=== PATIENT | female | born 1970 | race Caucasian/White ===

== ENCOUNTER 2023-02-01 10:18 | Outpatient (OUT) | payer OTHER, SELFPAY ==
[2023-02-01 11:18] LABS: Anion Gap 14.3; BUN Creatinine Ratio 20.2; Calcium 9.2 mg/dL (8.5-10.1); Carbon Dioxide 26.7 mmol/L (21.0-32.0); Chloride 99 mmol/L (98-107); Estimated GFR (African America >60 (>=60); Estimated GFR (Non-African Ame >60 (>=60); Glucose 98 mg/dL (74-106); Sodium 136 mmol/L (136-145)
== END 2023-02-01 10:19 ==
LOC: LAB 10:21
PROVIDERS: PCP Nurse Practitioner Family; Visit Provider Nurse Practitioner
DX: I50.22 Chronic systolic (congestive) heart failure (principal)
CPT/HCPCS: 36415; 80048

== ENCOUNTER 2023-02-15 10:52 | Outpatient (OUT) | payer OTHER, SELFPAY ==
--- NOTE | 2023-02-15 11:15 | MM_ITS ---
Patient: JAVIER LINK Exam Date: 02/15/2023 : 1970 Gender:F Ordering : NIKKI [facility] Admission #: [id number] Family : Order #: [id number] CLICK HERE TO VIEW EXAM RADIOLOGY REPORT PROCEDURE: MM TOMOSYNTHESIS SCREENING BI COMPARISON: MG MAMM SCREEN 3D RAMONE CAD, 12/10/2020. MG MAMM SCREEN 3D RAMONE CAD, 11/15/2016. INDICATIONS: Screeing Calculator Name NCI Breast Cancer Risk Assessment Tool 5 Year Breast Cancer Risk 2.00% Lifetime Breast Cancer Risk 15.50% Personal Breast Cancer No Personal Ovarian Cancer No Treatments None Family Cancers Sister with breast cancer at age 46; Sister with lung cancer at age 46; Grandfather-paternal with prostate cancer at age ~80. LOCATION: [facility] BREAST COMPOSITION: Almost entirely fatty. FINDINGS: DIAGNOSTIC CATEGORY 2--BENIGN FINDING: RIGHT BREAST: No significant suspicious finding. Scattered benign-appearing calcifications are present. No significant change has occurred. LEFT BREAST: No significant suspicious finding. Scattered benign-appearing calcifications are present. No significant change has occurred. RECOMMENDATIONS: ROUTINE MAMMOGRAM AND CLINICAL EVALUATION IN 12 MONTHS. PLEASE NOTE: A NORMAL MAMMOGRAM DOES NOT EXCLUDE THE POSSIBILITY OF BREAST CANCER. A CLINICALLY SUSPICIOUS PALPABLE LUMP SHOULD BE BIOPSIED. Dictated by: Antonio Shaffer M.D. on 02/16/2023 at 14:37 Approved by: Antonio Shaffer M.D. on 02/16/2023 at 14:40
== END 2023-02-15 10:53 | disposition home or self-care (01) ==
LOC: MAMMO 10:53
PROVIDERS: PCP Nurse Practitioner Family; Visit Provider Nurse Practitioner Family
DX: Z12.31 Encounter for screening mammogram for malignant neoplasm of breast (principal)
CPT/HCPCS: 77063; 77067

== ENCOUNTER 2023-03-13 10:11 | Outpatient (OUT) | payer OTHER, SELFPAY ==
[2023-03-13 11:38] LABS: Anion Gap 12.1; BUN Creatinine Ratio 15.8; Calcium 8.9 mg/dL (8.5-10.1); Carbon Dioxide 26.7 mmol/L (21.0-32.0); Chloride 100 mmol/L (98-107); Estimated GFR (African America >60 (>=60); Estimated GFR (Non-African Ame 58 (>=60); Glucose 109 mg/dL (74-106); Potassium 3.8 mmol/L (3.5-5.1); Sodium 135 mmol/L (136-145)
== END 2023-03-13 10:12 | disposition home or self-care (01) ==
LOC: LAB 10:13
PROVIDERS: PCP Nurse Practitioner Family; Visit Provider Internal Medicine Interventional Cardiology
DX: I11.0 Hypertensive heart disease with heart failure (principal); I50.9 Heart failure, unspecified
CPT/HCPCS: 36415; 80048

== ENCOUNTER 2023-05-08 15:14 | Outpatient (REF) | payer OTHER, SELFPAY ==
[2023-05-08 15:56] LABS: SARS-CoV-2 Ag NEGATIVE (NEGATIVE)
[2023-05-09 15:51] LABS: SARS-CoV-2 NAA NOT DETECTED (NOT DETECTE)
== END 2023-05-08 15:15 | disposition home or self-care (01) ==
LOC: LAB 15:14
PROVIDERS: PCP Nurse Practitioner Family; Visit Provider Family Medicine
DX: J21.9 Acute bronchiolitis, unspecified (principal)
CPT/HCPCS: 87635; 87811; U0003

== ENCOUNTER 2023-05-12 09:53 | Outpatient (OUT) | payer OTHER, SELFPAY ==
[2023-05-12 10:47] LABS: Basophils Absolute Auto 0.1 10^3/uL (0.0-0.1); Basophils Percent Auto 0.5 % (0.2-2.0); Eosinophils Absolute Auto 0.2 10^3/uL (0.0-0.7); Eosinophils Percent Auto 1.9 % (0.9-7.0); Hematocrit 44.1 % (36.0-48.0); Hemoglobin 15.2 g/dL (12.0-16.0); Immature Granulocytes Abs Auto 0.03 10^3/uL (0.00-0.03); Immature Granulocytes Pct Auto 0.3 % (0.0-0.5); Lymphocytes Absolute Auto 2.4 10^3/uL (1.2-3.8); Lymphocytes Percent Auto 22.1 % (20.5-60.0); Mean Corpuscular HGB Conc 34.5 g/dL (29.9-35.2); Mean Corpuscular Hemoglobin 32.8 pg (26.7-34.0); Mean Corpuscular Volume 95.2 fL (81.0-99.0); Monocytes Absolute Auto 0.6 10^3/uL (0.3-0.8); Monocytes Percent Auto 5.4 % (1.7-12.0); Neutrophils Absolute Auto 7.4 10^3/uL (1.4-6.5); Neutrophils Percent Auto 69.8 % (43.0-75.0); Platelet Count 240 10^3/uL (150-450); Red Blood Count 4.63 10^6/uL (4.20-5.40); Red Cell Distribution Width 12.4 % (11.0-15.0); White Blood Count 10.6 10^3/uL (4.0-11.0)
[2023-05-12 11:53] LABS: Estimated Average Glucose 111 mg/dL; Glycohemoglobin A1C 5.5 % (4.5-6.2)
[2023-05-12 12:22] LABS: Alanine Aminotransferase 27 U/L (14-59); Albumin Globulin Ratio 0.8; Albumin Level 3.7 g/dL (3.4-5.0); Alkaline Phosphatase 147 U/L (46-116); Anion Gap 14.5; Aspartate Amino Transferase 28 U/L (15-37); Bilirubin Total 0.5 mg/dL (0.2-1.0); Calcium 9.3 mg/dL (8.5-10.1); Carbon Dioxide 26.1 mmol/L (21.0-32.0); Chloride 99 mmol/L (98-107); Chol HDL Ratio 3.2; Cholesterol 126 mg/dL (<=200); Estimated GFR (African America >60 (>=60); Estimated GFR (Non-African Ame 54 (>=60); Free T3 2.86 pg/mL (2.18-3.98); Globulin 4.6 g/dL; Glucose 99 mg/dL (74-106); HDL Cholesterol 40 mg/dL (40-60); LDL Cholesterol Calculated 64.6 mg/dL; Potassium 4.6 mmol/L (3.5-5.1); Sodium 135 mmol/L (136-145); Thyroid Stimulating Hormone 0.038 uIU/mL (0.358-3.740); Total Protein 8.3 g/dL (6.4-8.2); Triglycerides 107 mg/dL (<=150); VLDL CHOLESTEROL 21.4 mg/dL
== END 2023-05-12 09:54 | disposition home or self-care (01) ==
LOC: LAB 10:05
PROVIDERS: PCP Nurse Practitioner Family; Visit Provider Nurse Practitioner Family
DX: Z00.00 Encounter for general adult medical examination without abnormal findings (principal); E78.5 Hyperlipidemia, unspecified; R73.09 Other abnormal glucose; D64.9 Anemia, unspecified; E55.9 Vitamin D deficiency, unspecified
CPT/HCPCS: 36415; 80053; 80061; 82306; 83036; 83525; 83540; 84436; 84443; 84481; 85025

== ENCOUNTER 2023-09-04 07:51 | Outpatient (OUT) | payer MEDICARE, SELFPAY ==
--- OUTSIDE RECORDS SUMMARY | 2023-09-04 07:59 | XMS_ITS | CCD ---
Author Name Unknown Address [address] [place] [address] Organization [facility] Care Team Providers Care Shell Worker Name Role Phone RAFI BISWAS Attending Unavailable MORIAH MACK Primary Care Unavailable MORIAH MACK Referring Unavailable RAFI BISWAS Admitting Unavailable None, No PCP Unavailable Unavailable Unavailable Unavailable DO Isidra Lagunas Admit Provider DO Isidra Lagunas Attending Provider NON STAFF Primary Care Provider Unavailabl Isidra Kessler Attending Unavailable Isidra Lagunas Admitting Unavailable NON STAFF Primary Care Unavailable ALTON AVALOS Consulting Unavailable VALDEZ, NIKKI Primary Care Unavailable ALTON AVALOS Attending Unavailable ALTON AVALOS Admitting Unavailable MISC, DR PALOMARES Admitting Unavailable MISC, DR PALOMARES Attending Unavailable MISC, DR PALOMARES Consulting Unavailable VALDEZ, NIKKI Primary Care Unavailable MISC, DR PALOMARES Consulting Unavailable VALDEZ, NIKKI Primary Care Unavailable MISC, DR PALOMARES Attending Unavailable MISC, DR PALOMARES Admitting Unavailable ZIIVAN, DR ANGEL Ruiz Consulting Unavailable VALDEZ, NIKKI Primary Care Unavailable ALTON AVALOS Attending Unavailable ALTON AVALOS Admitting Unavailable ALTON AVALOS Consulting Unavailable VALDEZ, NIKKI Consulting Unavailable VALDEZ, NIKKI Admitting Unavailable VALDEZNIKKI Attending Unavailable VALDEZ, NIKKI Primary Care Unavailable SHAIKH Sergo HERRERA Admitting Unavailable SHAIKH Sergo HERRERA Attending Unavailable VALDEZ, NIKKI Primary Care Unavailable HASMUKH HILTON Admitting Unavailable HASMUKH HILTON Attending Unavailable JOSC, DR PALOMARES Primary Care Unavailable MADELAINE ALVA Unavailable HASMUKH HILTON Consulting Unavailable SERENITY, DR SHAFFER Admitting Unavailable MOUKALOIS, DR SHAFFER Attending Unavailable VALDEZ, NIKKI Primary Care Unavailable MOUKARBEL, DR SHAFFER Consulting Unavailable ALTON AVALOS Admitting Unavailable ALTON AVALOS Attending Unavailable VALDEZ, NIKKI Primary Care Unavailable VALDEZ, NIKKI Consulting Unavailable VALDEZ, NIKKI Primary Care Unavailable VALDEZ, NIKKI Attending Unavailable VALDEZ, NIKKI Admitting Unavailable ZIEBER, DR ANGEL Ruiz Consulting Unavailable VALDEZ, NIKKI Primary Care Unavailable MOUKARBEL, DR SHAFFER Attending Unavailable MOUKARBEL, DR SHAFFER Admitting Unavailable MOUKARBEL, DR SHAFFER Consulting Unavailable ANTHONY, YELENA Consulting Unavailable VALDEZ, NIKKI Primary Care Unavailable ANTHONY, YELENA Attending Unavailable ANTHONY, YELENA Admitting Unavailable VALDEZ, NIKKI Primary Care Unavailable FAWWAD, SWIFT H Attending Unavailable FAWWAD, SWIFT H Admitting Unavailable FAWWAD, SWIFT H Admitting Unavailable FAWWAD, SWIFT H Attending Unavailable VALDEZ, NIKKI Primary Care Unavailable FAWWAD, SWIFT H Admitting Unavailable FAWWAD, SWIFT H Attending Unavailable MISBaldemar, DR PALOMARES Primary Care Unavailable ALTON AVALOS Consulting Unavailable VALEDZ, NIKKI Primary Care Unavailable ALTON AVALOS Attending Unavailable ALTON AVALOS Admitting Unavailable BEBO, DR NOLAN Philippe Admitting Unavailabl e BEBO, DR NOLAN Philippe Attending Unavailabl e JOSC, DR PALOMARES Primary Care Unavailable BEBO, DR NOLAN Philippe Consulting Unavailabl e MELODIE ., MEREDITH MEMBRENO Consulting Unavailabl e KIRA ., HASMUKH Attending Unavailable KIRA ., HASMUKH Admitting Unavailable VALDEZ, NIKKI Primary Care Unavailable MARY ROJAS Consulting Unavailable MOUKARBEL, DR SHAFFER Admitting Unavailable MOUKARBEL, DR SHAFFER Attending Unavailable VALDEZ, NIKKI Primary Care Unavailable MOUKARBEL, DR SHAFFER Consulting Unavailable VALDEZ, NIKKI Primary Care Unavailable MOUKARBEL, DR SHAFFER Attending Unavailable MOUKARBEL, DR SHAFFER Admitting Unavailable FAWWAD, SWIFT H Admitting Unavailable FAWWAD, SWIFT H Attending Unavailable VALDEZ, NIKKI Primary Care Unavailable RAFI BISWAS Referring Unavailable MOUKARBELDEENA Referring Unavailable CIRILO RUBALCAVA Attending Unavailable CIRILO RUBALCAVA Attending Unavailable ALTON AVALOS Referring Unavailable CHEL DIXON Attending Unavailable ANTHONY, YELENA Attending Unavailable MOUKARBELDEENA Attending Unavailable ALTON AVALOS Referring Unavailable DEENA SANTA Attending Unavailable RAFI BISWAS Attending Unavailable YELENA CRUZ Attending Unavailable YELENA CRUZ Attending Unavailable Allergies Allergy Classification Reported Allergen(s) Allergy Type Date of Onset Reaction(s) Facility (1 source) AVELOX IN NACL (ISO-OSMOTIC); Translations: [AVELOX IN NACL (ISO-OSMOTIC)] Propensity to adverse reactions (disorder) 1 [facility] Repository (4 sources) moxifloxacin; Translations: [Avelox] Drug Allergy [place] [address] DO Work Phone: (3 sources) moxifloxacin; Translations: [moxifloxacin] Drug Allergy 2 [facility] (1 source) moxifloxacin Drug Allergy 3 [facility] Repository (1 source) Chlorhexidine; Translations: [CHLORHEXIDINE GLUCONATE] Drug Allergy 0 [facility] Repository Medications Current Medications Medication Drug Class(es) Dates Sig (Normalized) Sig (Original) [id number] 200 actuat albuterol 0.09 mg/actuat metered dose inhaler (5 sources) beta2-Adrenergic Agonist Start: 01-10-2022 take 90 ug by inhalation every four to six hours Albuterol Sulfate Active 90 MCG INHALATION EVERY 4-6 HOURS January 10, 2022 1:49pm take 1-2 puff(s) by inhalation every four to six hours as needed Albuterol 90 MCG/ACT AERS INHALE 1 TO 2 PUFFS EVERY 4 TO 6 HOURS NEEDED AND DIRECTED. Quantity: 0 Refills: 0 Ordered: 17-Jan-2022 DO Active aspirin 81 mg delayed release oral tablet (5 sources) Platelet Aggregation Inhibitor, Nonsteroidal Anti-inflammatory Drug Start: 01-14-2022 take 81 mg by mouth once daily Aspirin Active 81 MG PO Daily January 14, 2022 1:02pm atorvastatin 80 mg oral tablet (6 sources) HMG-CoA Reductase Inhibitor Start: 01-14-2022 take 80 mg by mouth once daily in the evening Atorvastatin Active 80 MG PO Every evening January 14, 2022 1:02pm Start: 01-10-2022 End: 01-14-2022 take 10 mg by mouth once daily Atorvastatin Discontinu ed 10 MG PO Daily January 10, 2022 1:49pm January 14, 2022 2:28pm benzonatate 200 mg oral capsule (5 sources) Non-narcotic Antitussive Start: 01-10-2022 take 200 mg by mouth every eight hours Benzonatate Active 200 MG PO Every 8 hours January 10, 2022 1:49pm take 1 capsule by [facility] three times daily as needed Benzonatate 200 MG Oral Capsule TAKE 1 CAPSULE 3 TIMES DAILY NEEDED. Quantity: 0 Refills: 0 Ordered: 17-Jan-2022 DO Active carvedilol 6.25 mg oral tablet (5 sources) alpha-Adrenergic Deedee, beta-Adrenergic Deedee Start: 01-14-2022 take 6.25 mg by mouth twice daily at mealtime Carvedilol Active 6.25 MG PO Twice daily with meals January 14, 2022 1:02pm clopidogrel 75 mg oral tablet (5 sources) P2Y12 Platelet Inhibitor Start: 01-14-2022 take 75 mg by mouth once daily Clopidogrel Active 75 MG PO Daily January 14, 2022 1:02pm DULoxetine 30 mg delayed release oral capsule (5 sources) Serotonin and Norepinephrine Reuptake Inhibitor Start: 01-10-2022 take 30 mg by mouth twice daily Duloxetine Active 30 MG PO Twice daily January 10, 2022 1:49pm levothyroxine sodium 0.137 mg oral tablet (5 sources) l-Thyroxine Start: 01-10-2022 take 1 tablet by mouth once daily Levothyroxine (Synthroid) 137 mcg Tablet Active 137 MCG PO Daily January 10, 2022 6:58pm take 1 capsule by [facility] once daily before breakfast Levothyroxine Sodium 137 MCG Oral Capsul e TAKE 1 CAPSULE BY MOUTH EVERY MORNING BEFORE BREAKFAST ON EMPTY STOMACH Quantity: 0 Refills: 0 Ordered: 17-Jan-2022 DO Active lisinopril 2.5 mg oral tablet (6 sources) Angiotensin Converting Enzyme Inhibitor Start: 01-14-2022 take 2.5 mg by mouth once daily Lisinopril Active 2.5 MG PO Daily January 14, 2022 1:02pm Start: 01-10-2022 End: 01-14-2022 take 10 mg by mouth once daily Lisinopril Discontinued 10 MG PO Daily January 10, 2022 1:49pm January 14, 2022 2:28pm nitroglycerin 0.4 mg sublingual tablet (5 sources) Nitrate Vasodilator Start: 01-14-2022 Nitroglycerin Active 0.4 MG SUBLINGUAL Q5M January 14, 2022 1:02pm warfarin sodium 3 mg oral tablet (6 sources) Vitamin K Antagonist Start: 01-14-2022 take 3 mg by mouth once daily Warfarin Active 3 MG PO Daily January 14, 2022 2:27pm start 01/17 Start: 01-14-2022 Warfarin Activ e 5 MG PO Daily 10 14January 14, 2022 2:26pm take 01/14, 01/15, and 01/16 then decrease to 3mg daily starting 01/17 Warfarin Sodium 3 MG Oral Tablet Take as directed by [facility] Quantity: 0 Refills: 0 Ordered: 18-Jan-2022 DO Active Completed/Discontinued Medications Medication Drug Class(es) Dates Sig (Normalized) Sig (Original) ibuprofen 800 mg oral tablet (1 source) Nonsteroidal Anti-inflammatory Drug Start: 01-10-2022 End: 01-14-2022 Ibuprofen Discontinued MG TABLET January 10, 2022 1:49pm January 14, 2022 2:28pm Problems Active Problems Problem Classification Problem Date Documented Date Episodic/Chronic Acute myocardial infarction (8 sources) Myocardial infarction; Translations: [Acute myocardial infarction of other anterior wall, episode of care unspecified] Onset: 01-13-2022 01-10-2022 Chronic Conduction disorders (10 sources) Presence of automatic (implantable) cardiac defibrillator; Translations: [Presence of cardiac pacemaker] Onset: 05-18-2022 Chronic Congestive heart failure; nonhypertensive (16 sources) Chronic systolic (congestive) heart failure; Translations: [Unspecified systolic (congestive) heart failure] Onset: 03-31-2022 Chronic Coronary atherosclerosis and other heart disease (18 sources) Coronary arteriosclerosis; Translations: [Coronary atherosclerosis of [facility] [place] coronary artery] Onset: 02-02-2022 Chronic Diabetes mellitus without complication (1 source) Type 2 diabetes mellitus without complications; Translations: [TYPE 2 DM WITHOUT COMPLICATIONS] Onset: 06-07-2022 Chronic Disorders of lipid metabolism (6 sources) Hyperlipidemia; Translations: [Hyperlipidemia, unspecified] Onset: 01-10-2022 01-10-2022 Chronic Essential hypertension (4 sources) Essential hypertension; Translations: [Essential (primary) hypertension] Onset: 01-10-2022 01-10-2022 Chronic Hypertension with complications and secondary hypertension (2 sources) Hypertensive heart disease with heart failure; Translations: [Hypertensive heart disease with heart failure] Onset: 11-30-2022 Chronic Joint disorders and dislocations; trauma-related (2 sources) Other articular cartilage disorders, left wrist; Translations: [Other articular cartilage disorders, left wrist] Onset: 05-23-2023 Chronic Osteoarthritis (2 sources) Unilateral primary osteoarthritis of first carpometacarpal joint, right hand; Translations: [Unilateral primary osteoarthritis of first carpometacarpal joint, right hand] Onset: 05-23-2023 Chronic Other aftercare (4 sources) Drug therapy finding; Translations: [Long-term (current) use of other medications] Episodic Other and ill-defined heart disease (4 sources) Mural thrombus of left ventricle; Translations: [Acute myocardial infarction of unspecified site, episode of care unspecified] Chronic Other and ill-defined heart disease (1 source) Left ventricular thrombus; Translations: [Intracardiac thrombosis, not elsewhere classified] 01-11-2022 Chronic Other and ill-defined heart disease (4 sources) Intracardiac thrombosis, not elsewhere classified; Translations: [Acute myocardial infarction of unspecified site, episode of care unspecified] Onset: 01-10-2022 Chronic Other and ill-defined heart disease (5 sources) Thrombosis of atrium, auricular appendage, and ventricle as current complications following acute myocardial infarction; Translations: [I23.6 - Thrombosis of atrium, auricular appendage, and ventricle as current complications following acute myocardial infarction] Onset: 01-10-2022 Chronic Other connective tissue disease (2 sources) Radial styloid tenosynovitis [de Quervain]; Translations: [Radial styloid tenosynovitis (de quervain)] Onset: 05-23-2023 Episodic Other inflammatory condition of skin (2 sources) Psoriasis, unspecified; Translations: [Psoriasis, unspecified] Onset: 03-06-2023 Chronic Other inflammatory condition of skin (2 sources) Arthropathic psoriasis, unspecified; Translations: [Arthropathic psoriasis, unspecified] Onset: 10-03-2022 Chronic Other nervous system disorders (2 sources) Other chronic pain; Translations: [Other chronic pain] Onset: 05-23-2023 Chronic Other non-traumatic joint disorders (2 sources) Pain in right wrist; Translations: [Pain in right wrist] Onset: 05-23-2023 Episodic Other non-traumatic joint disorders (2 sources) Pain in left wrist; Translations: [Pain in left wrist] Onset: 05-23-2023 Episodic Other nutritional; endocrine; and metabolic disorders (4 sources) Obesity; Translations: [Obesity, unspecified] Chronic Other skin disorders (2 sources) Follicular disorder, unspecified; Translations: [Follicular disorder, unspecified] Onset: 07-31-2023 Episodic Bobbi-; endo-; and myocarditis; cardiomyopathy (except that caused by tuberculosis or sexually transmitted disease) (2 sources) Cardiomyopathy in diseases classified elsewhere; Translations: [Cardiomyopathy in diseases classified elsewhere] Onset: 11-30-2022 Chronic Screening and history of mental health and substance abuse codes (4 sources) Ex-smoker; Translations: [Personal history of tobacco use] Episodic Comment on above: quit 1 week ago; Substance-related disorders (1 source) Nicotine dependence, cigarettes, uncomplicated; Translations: [NICOTINE DEPEND CIGARETTES UNCOMP] Onset: 06-07-2022 Chronic Thyroid disorders (4 sources) Hypothyroidism, unspecified; Translations: [HYPOTHYROIDISM UNSPECIFIED] Onset: 07-20-2022 Chronic Unclassified (1 source) I21.19 - ST elevation (STEMI) myocardial infarction involving other coronary artery of inferior wall; Translations: [I21.19 - ST elevation (STEMI) myocardial infarction involving other coronary artery of inferior wall] Onset: 01-10-2022 Unclassified (1 source) CONTACT W/AND (SUSP) EXPOS COVID-19; Translations: [CONTACT W/AND (SUSP) EXPOS COVID-19] Onset: 06-07-2022 Past or Other Problems Problem Classification Problem Date Documented Da te Episodic/Chronic Conditions associated with dizziness or vertigo (4 sources) Dizziness and giddiness; Translations: [DIZZINESS AND GIDDINESS] Onset: 06-03-2022 Episodic Coronary atherosclerosis and other heart disease (7 sources) Patient post percutaneous transluminal coronary angioplasty; Translations: [Percutaneous transluminal coronary angioplasty status] Onset: 02-28-2022 Episodic Immunizations and screening for infectious disease (4 sources) Encounter for screening for respiratory tuberculosis; Translations: [Encounter for screening for other viral diseases] Onset: 03-06-2023 Episodic Nonspecific chest pain (6 sources) Other chest pain; Translations: [OTHER CHEST PAIN] Onset: 06-08-2022 Episodic Other aftercare (1 source) Other penitentiary (current) drug therapy; Translations: [OTH LONGTERM CURRENT DRUG THERAPY] Onset: 06-07-2022 Episodic Other aftercare (4 sources) Encounter for therapeutic drug level monitoring; Translations: [ENC THERAPEUTC DRUG LEVL MONITORING] Onset: 05-15-2022 Episodic Other aftercare (1 source) exterminator helper termite (current) use of anticoagulants; Translations: [REHABILITATION CONSTRUCTION SPECIALIST CURRNT USE ANTICOAGULANTS] Onset: 06-14-2022 Episodic Other screening for suspected conditions (not mental disorders or infectious disease) (1 source) Abnormal results of thyroid function studies; Translations: [ABNORMAL RESULTS THR FUNCTION STDY] Onset: 06-07-2022 Episodic Residual codes; unclassified (2 sources) Other problems related to lifestyle; Translations: [Other problems related to lifestyle] Onset: 03-06-2023 Episodic Spondylosis; intervertebral disc disorders; other back problems (3 sources) Dorsalgia, unspecified; Translations: [DORSALGIA UNSPECIFIED] Onset: 01-10-2022 Episodic Urinary tract infections (1 source) Urinary tract infection, site not specified; Translations: [UTI SITE NOT SPECIFIED] Onset: 06-07-2022 Episodic Results Test Name Value Interpretation Reference Range Facility Follow-Upon 07-31-2023 Follow-Up [id number] Javier Rosa 1970 Date Provider Department Center 07/31/2023 Bhavna-CIRILO RUBALCAVA [facility] [place] Jose Family History Problem Relation Age of Onset Atrial fibrillation Mother Other Mother Heart attack Father Other Father Other Father Family Status - Relation Status Age at Mother Father Level of Service:26427 SC OFFICE/OUTPATIENT ESTABLISHED MOD MDM 30-39 MIN Reason for Visit and Comments: Follow-up [097706] - Discuss medication switch Normal [facility] Office Visiton 06-28-2023 Follow-up visit [id number] Javier Rosa 1970 F Date Provider Department Center 06/28/2023 DEENA GARCIA HETAL Fine Family History Problem Relation Age of Onset Atrial fibrillation Mother Other Mother Heart attack Father Other Father Other Father Family Status - Relation Status Age at Mother Father Level of Service:05108 SC OFFICE/OUTPATIENT ESTABLISHED LOW MDM 20-29 MIN Reason for Visit and Comments: Follow-up [051598] - BP running higher. Normal [facility] Office Visiton 05-23-2023 Follow-up visit [id number] Javier Rosa 1970 F Date Provider Department Center 05/23/2023 RAFI HONEYCUTT ORTHO MPORTHO Family History Problem Relation Age of Onset Atrial fibrillation Mother Other Mother Heart attack Father Other Father Other Father Family Status - Relation Status Age at Mother Father Level of Service:40908 SC OFFICE/OUTPATIENT ESTABLISHED LOW MDM 20-29 MIN (GC,25) Reason for Visit and Comments: Pain [136] - Radiates up thumb up arm Pain [136] - Radiates up thumb up to arm. [facility] HEPATITIS B SURFACE ANTIGENo n 03-06-2023 HEPATITIS B VIRUS SURFACE AG PRESENCE IN SERUM Non-Reactive Normal Nonreactive [facility] Comment on above: Performed By: #### L [id number] ####[facility] (BEAKER)[address] [place] [address] HEPATITIS C ANTIBODYon 03-06 HEPATITIS C VIRUS AB PRESENCE IN SERUM Non-Reactive Normal Nonreactive [facility] Comment on above: Performed By: #### L [id number] ####[facility] ([facility]ER)[address] [place] [address] Office Visiton 03-06-2023 Follow-up visit [id number] Javier Rosa 1970 F Date Provider Department Center 03/06/2023 CIIRLO CARMEN [facility] Family History Problem Relation Age of Onset Atrial fibrillation Mother Other Mother Heart attack Father Other Father Other Father Family Status - Relation Status Age at Mother Father Level of Service:83677 SC OFFICE/OUTPATIENT NEW MODERATE MDM 45-59 MINUTES Reason for Visit and Comments: Psoriasis [[id number]] - Patient has had psoriasis since she was about 11 years old, it has been two years since she was on anything for it. Last med used was Otezla, prior to that Maheshtz Normal [facility] QUANTIFERON TB GOLDon 2022 MITOGEN MINUS NIL 2.28 IU/mL Normal [facility] Comment on above: Performed By: #### L [id number] ####[facility] ([facility])[address] [place] [address] NIL 0.03 IU/mL Normal [facility] Comment on above: Performed By: #### L [id number] ####[facility] ([facility])[address] [place] [address] QUANTIFERON - TB GOLD TEST Negative Normal Negative [facility] Comment on above: Result Comment: Ugo tiferon TB Gold Interpretation (IU/mL): NEGATIVE: M. tuberculosis infection not likely. Nil: <=8.0 TB1 Antigen minus Nil ([id number]): <0.35 OR >=0.35; and <25% of Nil value. TB2 Antigen minus Nil (XH8ED-CEM): <0.35 OR >=0.35; and <25% of Nil value. Performed By: #### L [id number] ####[facility] ([facility])[address] [place] [address] TB1 AG 0.02 IU/mL [facility] Comment on above: Performed By: #### L [id number] ####[facility] ([facility])[address] [place] [address] TB1 AG MINUS NIL -0.01 IU/mL Normal [facility] Comment on above: Performed By: #### L [id number] ####[facility] ([facility])[address] [place] [address] TB2 AG 0.03 IU/mL Normal [facility] Comment on above: Performed By: #### L [id number] ####[facility] ([facility])[address] [place] [address] TB2 AG MINUS NIL 0.00 IU/mL Normal [facility] Comment on above: Performed By: #### L [id number] ####[facility] ([facility]ER)[address] [place] [address] Office Visiton 02-10-2023 Follow-up visit [id number] Javier Rosa 1970 F Date Provider Department Center 02/10/2023 JaleelYELENA OROZCO HETAL [facility] Family History Problem Relation Age of Onset Atrial fibrillation Mother Other Mother Heart attack Father Other Father Other Father Family Status - Relation Status Age at Mother Father Level of Service:47569 SC OFFICE/OUTPATIENT ESTABLISHED LOW MDM 20-29 MIN Normal [facility] Office Visiton 01-13-2023 Follow-up visit [id number] Javier Rosa 1970 F Date Provider Department Center 01/13/2023 [facility] Family History Problem Relation Age of Onset Atrial fibrillation Mother Other Mother Heart attack Father Other Father Other Father Family Status - Relation Status Age at Mother Father Level of Service:02546 SC OFFICE/OUTPATIENT ESTABLISHED MOD MDM 30-39 MIN Normal [facility] PROF CHEM 8 (BAS METB)on Anion gap [Moles/Vol] 14.8 mmol/L Normal [facility] Comment on above: Performed By: #### C BC #### [facility] [address] [place] [address] [address] Vangie Devine Calcium [Mass/Vol] 8.9 mg/dL Normal 8.5-10.1 [facility] Comment on above: Performed By: #### C BC #### [facility] [address] [place] [address] [address] Vangie Devine Chloride [Moles/Vol] 101 mmol/L Normal 98-107 [facility] Comment on above: Performed By: #### C BC #### [facility] [address] [place] [address] [address] Vangie Devine CO2 [Moles/Vol] 25.9 mmol/L Normal 21.0-32.0 [facility] Comment on above: Performed By: #### C BC #### [facility] [address] [place] [address] [address] Vangie Devine Creatinine [Mass/Vol] 0.91 mg/dL Normal 0.55-1.02 [facility] Comment on above: Performed By: #### C BC #### [facility] [address] [place] [address] Dr. Vangie Devine EGFR-AF HONDURAN >60 Normal >=60 [facility] Comment on above: Performed By: #### C BC #### [facility] [address] [place] [address] [address] Vangie Devine EGFR-NON AF HONDURAN >60 Normal >=60 [facility] Comment on above: Performed By: #### C BC #### [facility] [address] [place] [address] [address] Vangie Devine Glucose [Mass/Vol] 93 mg/dL Normal 74-106 [facility] Comment on above: Performed By: #### C BC #### [facility] [address] [place] [address] Dr. Vangie Devine Potassium [Moles/Vol] 4.7 mmol/L Normal 3.5-5.1 [facility] Comment on above: Performed By: #### C BC #### [facility] [address] [place] [address] [address] Vangie Devine Sodium [Moles/Vol] 137 mmol/L Normal 136-145 [facility] Comment on above: Performed By: #### C BC #### [facility] [address] [place] [address] Dr. Vangie Devine Urea nitrogen [Mass/Vol] 9.0 mg/dL Normal 7.0-18.0 [facility] Comment on above: Performed By: #### C BC #### [facility] [address] [place] [address] Dr. Vangie Devine Urea nitrogen/Creatinine [Mass ratio] 9.9 mg/mg Normal [facility] Comment on above: Performed By: #### C BC #### [facility] [address] [place] [address] Dr. Vangie Devine Office Visiton 12-12-2022 Follow-up visit [id number] Javier Rosa 1970 F Date Provider Department Center 12/12/2022 [id number] PEREZ CARD [facility] Family History Problem Relation Age of Onset Atrial fibrillation Mother Other Mother Heart attack Father Other Father Other Father Family Status - Relation Status Age at Mother Father Level of Service:98162 [place] OFFICE/OUTPATIENT ESTABLISHED MOD MDM 30-39 MIN Reason for Visit and Comments: Follow-up [712723] - 2 week follow up Normal [facility] PROF CHEM 8 (BAS METB)on Anion gap [Moles/Vol] 15.6 mmol/L Normal [facility] Comment on above: Performed By: #### P TT, PT #### [facility] [address] [place] [address] Dr. Vangie Devine Calcium [Mass/Vol] 8.9 mg/dL Normal 8.5-10.1 [facility] Comment on above: Performed By: #### P TT, PT #### [facility] [address] [address] [address] Vangie Devine Chloride [Moles/Vol] 101 mmol/L Normal 98-107 [facility] Comment on above: Performed By: #### P TT, PT #### [facility] [address] [address] [address] Vangie Devine CO2 [Moles/Vol] 24.7 mmol/L Normal 21.0-32.0 [facility] Comment on above: Performed By: #### P TT, PT #### [facility] [address] [address] [address] Vangie Devine Creatinine [Mass/Vol] 0.95 mg/dL Normal 0.55-1.02 [facility] Comment on above: Performed By: #### P TT, PT #### [facility] [address] [address] [address] Vangie Devine EGFR-AF HONDURAN >60 Normal >=60 [facility] Comment on above: Performed By: #### P TT, PT #### [facility] [address] [address] [address] Vangie Devine EGFR-NON AF HONDURAN >60 Normal >=60 [facility] Comment on above: Performed By: #### P TT, PT #### [facility] [address] [address] [address] Vangie Devine Glucose [Mass/Vol] 101 mg/dL Normal 74-106 [facility] Comment on above: Performed By: #### P TT, PT #### [facility] [address] [address] [address] Vangie Devine Potassium [Moles/Vol] 4.3 mmol/L Normal 3.5-5.1 [facility] Comment on above: Performed By: #### P TT, PT #### [facility] [address] [address] [address] Vangie Devine Sodium [Moles/Vol] 137 mmol/L Normal 136-145 [facility] Comment on above: Performed By: #### P TT, PT #### [facility] [address] [address] [address] Vangie Devine Urea nitrogen [Mass/Vol] 15.0 mg/dL Normal 7.0-18.0 [facility] Comment on above: Performed By: #### P TT, PT #### [facility] [address] [address] [address] Vangie Devine Urea nitrogen/Creatinine [Mass ratio] 15.8 mg/mg Normal [facility] Comment on above: Performed By: #### P TT, PT #### [facility] [address] [address] [address] Vangie Devine 37on 11-30-2022 37 Stop lisinopril, after 2 days then start entresto 1 tablet twice daily. Will need repeat labs/blood draw in 1 week for check of kidney function and electrolytes Monitor b/p, call office for any concerns Normal [facility] Office Visiton 11-30-2022 Follow-up visit [id number] Javier Rosa 1970 F Date Provider Department Center 11/30/2022 YELENA REYES [facility] Family History Problem Relation Age of Onset Atrial fibrillation Mother Other Mother Heart attack Father Other Father Other Father Family Status - Relation Status Age at Mother Father Level of Service:88553 [place] OFFICE/OUTPATIENT ESTABLISHED MOD MDM 30-39 MIN Reason for Visit and Comments: Follow-up [180572] - 2 month - overall feeling pretty good. Fatigue [46] - Gets tired easily. This is an ongoing issue. Dizziness [460490] - Occasionally - starts to drink more water and that seems to help. Edema [[id number]] - Ongoing issue - has a little bit of swelling. Shortness of Breath [899703] - With exertion, and will start coughing when she lays flat and then gets short of breath at that time. [facility] 36on 11-02-2022 36 Patient reported to Ircky in cardiac rehab that she's gained 3# the past couple days and is more SOB. She did have her stress test a couple days ago. Once I have results I will put in your bucket. She is scheduled to see [facility] next month. Any recommendations? Thanks. [facility] NM STRESS/REST MULTIon 10-31 NM STRESS/REST MULTI Patient: JAVIER RSOA Exam Date: 10/31/2022 : 1970 Gender:F Ordering : DR DEENA SANTA M.D. Admission #: [id number] Family : Order #: [id number] CLICK HERE TO VIEW EXAM RADIOLOGY REPORT PROCEDURE: RADIONUCLIDE IMAGING STRESS/REST MULTI COMPARISON: None. INDICATIONS: Chest pain TECHNIQUE: Exam Description: Stress/Rest two day protocol gated SPECT Rest Imagin.1 mCi Tc-99m Cardiolite IV on 10/31/2022 Stress Imaging 32.5 mCi Tc-99m Cardiolite IV on 10/31/2022 Exercise Protocol: Vinh Heart Rate (bpm): Rest: 68 Max: 144 PMHR: 85 Blood Pressure: Rest: 136/86 Max: 182/86 Exercise Time: Minutes: 5 Seconds: 30 Stage Reached: Stage: 2 Mets 7.0 Symptoms: Rest and peak stress ECG findings were pending and the exercise portion of the study was pending per attending physician Dr. Avalos . For more details please see separate cardiac stress test report. FINDINGS: QUALITY OF STUDY: Excellent. PERFUSION DEFECT: Absent radiotracer uptake in majority of heart, with only relatively normal uptake seen within the base of the heart and the mid inferior wall. LOCATION: SIZE: Large (5 or more segments). SEVERITY: Severe. TYPE: Persistent. WALL MOTION: Dyskinesis: LV SIZE: Enlarged; EDV 253 mL. TID / TCD: Yes; 1.2 LVEF: Abnormal. Calculated EF 29%. SUMMARY: Myocardial perfusion imaging study has ABNORMAL findings. CONCLUSION: 1. No acute findings. 2. Complete loss of perfusion involving the mid and distal heart, with radiotracer uptake seen only within the base and mid inferior wall. 3. Markedly enlarged left ventricle, 2053 mL. 4. Markedly low ejection fraction, 29%. 5. Marked dyskinesia of the midbody and apex. 6. No comparison studies, but patient describes all of the above findings as known. Dictated by: Angel Christopher M.D. on 10/31/2022 at 14:39 Approved by: Angel Christopher M.D. on 10/31/2022 at 14:45 Normal [facility] Office Visiton 10-03-2022 Follow-up visit [id number] Javier Rosa 1970 F Date Provider Department Center 10/03/2022 DEENA GARCIA [facility] Family History Problem Relation Age of Onset Atrial fibrillation Mother Other Mother Heart attack Father Other Father Other Father Family Status - Relation Status Age at Mother Father Level of Service:05622 [place] OFFICE/OUTPATIENT ESTABLISHED MOD MDM 30-39 MIN Reason for Visit and Comments: Coronary Artery Disease [187] Congestive Heart Failure [127] Normal [facility] FREE THYROXINE INDEX T7on FTI 4.83 Critically high 1.30-4.50 [facility] Comment on above: Performed By: #### C BC #### [facility] [address] [address] [address] Vangie Devine T3U 35.0 % Normal 30.0-39.0 [facility] Comment on above: Performed By: #### C BC #### [facility] [address] [address] [address] Vangie Devine T4 [Mass/Vol] 13.80 ug/dL Normal 4.80-13.90 [facility] Comment on above: Performed By: #### C BC #### [facility] [address] [place] [address] Dr. Vangie Devine TSHon 07-20-2022 TSH 0.051 uIU/mL Critically low 0.358-3.740 [facility] Comment on above: Performed By: #### C BC #### [facility] [address] [place] [address] Dr. Vangie Devine ACETONE SERUMon 06-03-2022 ACETONE Negative Normal NEGATIVE [facility] Comment on above: Performed By: #### C JOBY #### [facility] [address] [place] [address] Dr. Vangie Devine CBC AUTO DIFFon 06-03-2022 BASO # 0.1 103/ul Normal 0.0-0.1 [facility] Comment on above: Performed By: #### C JOBY #### [facility] [address] [place] [address] Dr. Vangie Devine Basophils/100 WBC (Bld) 0.6 % Normal 0.2-2.0 [facility] Comment on above: Performed By: #### C JOBY #### [facility] [address] [place] [address] Dr. Vangie Devine EO # 0.3 103/ul Normal 0.0-0.7 [facility] Comment on above: Performed By: #### C JOBY #### [facility] [address] [place] [address] Dr. Vangie Devine Eosinophils/100 WBC (Bld) 1.4 % Normal 0.9-7.0 [facility] Comment on above: Performed By: #### C JOBY #### [facility] [address] [place] [address] Dr. Vangie Devine Erythrocyte distribution width (RBC) [Ratio] 13.2 % Normal 11.0-15.0 [facility] Comment on above: Performed By: #### C JOBY #### [facility] [address] [place] [address] Dr. Vangie Devine Hematocrit (Bld) [Volume fraction] 44.8 % Normal 36.0-48.0 [facility] Comment on above: Performed By: #### C JOBY #### [facility] [address] [address] [address] Vangie Devine Hemoglobin (Bld) [Mass/Vol] 15.0 g/dL Normal 12.0-16.0 [facility] Comment on above: Performed By: #### C JOBY #### [facility] [address] [place] [address] Dr. Vangie Devine IG # 0.06 10e3/ul Critically high 0.00-0.03 [facility] Comment on above: Performed By: #### C JOBY #### [facility] [address] [place] [address] Dr. Vangie Devine IG % 0.3 % Normal 0.0-0.5 [facility] Comment on above: Performed By: #### C JOBY #### [facility] [address] [place] [address] Dr. Vangie Devine LYMPH # 3.5 103/ul Normal 1.2-3.8 [facility] Comment on above: Performed By: #### C JOBY #### [facility] [address] [place] [address] Dr. Vangie Devine Lymphocytes/100 WBC (Bld) 19.8 % Critically low 20.5-60.0 [facility] Comment on above: Performed By: #### C JOBY #### [facility] [address] [place] [address] Dr. Vangie Devine MANUAL DIFF REQ NO Normal [facility] Comment on above: Performed By: #### C JOBY #### [facility] [address] [place] [address] Dr. Vangie Devine MCH (RBC) [Entitic mass] 31.1 pg Normal 26.7-34.0 [facility] Comment on above: Performed By: #### C JOBY #### [facility] [address] [place] [address] Dr. Vangie Devine MCHC (RBC) [Mass/Vol] 33.5 g/dL Normal 29.9-35.2 [facility] Comment on above: Performed By: #### C JOBY #### [facility] [address] [place] [address] Dr. Vangie Devine MCV (RBC) [Entitic vol] 92.8 fL Normal 81.0-99.0 [facility] Comment on above: Performed By: #### C JOBY #### [facility] [address] [place] [address] Dr. Vangie Devine MONO # 1.1 103/ul Critically high 0.3-0.8 [facility] Comment on above: Performed By: #### C JOBY #### [facility] [address] [place] [address] Dr. Vangie Devine Monocytes/100 WBC (Bld) 6.0 % Normal 1.7-12.0 [facility] Comment on above: Performed By: #### C JOBY #### [facility] [address] [place] [address] Dr. Vangie Devine NEUT # 12.6 103/ul Critically high 1.4-6.5 [facility] Comment on above: Performed By: #### C JOBY #### [facility] [address] [place] [address] Dr. Vangie Devine Neutrophils/100 WBC (Bld) 71.9 % Normal 43.0-75.0 [facility] Comment on above: Performed By: #### Baldemar HEMPHILL #### [facility] [address] [place] [address] Dr. Vangie Devine Platelet mean volume (Bld) [Entitic vol] 11.0 fL Normal 9.5-13.5 [facility] Comment on above: Performed By: #### C JOBY #### [facility] [address] [place] [address] Dr. Vagnie Devine PLT 179 103/ul Normal 150-450 [facility] Comment on above: Performed By: #### C JOBY #### [facility] [address] [place] [address] Dr. Vangie Devine RBC 4.83 106/ul Normal 4.20-5.40 [facility] Comment on above: Performed By: #### C JOBY #### [facility] [address] [place], [place] [address] Dr. Vangie Devine WBC 17.5 103/ul Critically high 4.0-11.0 [facility] Comment on above: Performed By: #### C JOBY #### [facility] [address] [place], [place] [address] HEAD WO CONon 06-03-2022 CT HEAD WO CON EXAMINATION: CT HEAD WO CON HISTORY: BENIGN PAROXYSMAL VERTIGO, vomiting and diarrhea. COMPARISON: None. TECHNIQUE: CT examination of the head without IV contrast. Sagittal and coronal reconstructions were obtained. Dose reduction techniques were achieved by using automated exposure control and/or adjustment of mA and/or kV according to patient size and/or use of iterative reconstruction technique. FINDINGS: The ventricles are not enlarged, the lateral ventricles are symmetric and the third ventricles in the midline. The sylvian fissures and cortical sulci are unremarkable. There is no evidence of an intracranial hemorrhage, mass lesion or apparent acute infarct. The cerebellum and visualized brainstem are intact. The visualized paranasal sinuses are clear. The middle ears are aerated. The paranasal sinuses are clear. There is no apparent skull fracture. IMPRESSION: There is no evidence of an intracranial hemorrhage, mass lesion or apparent acute infarct. The visualized paranasal sinuses are clear. There is no evidence of a skull fracture. Comparison with a previous study may be helpful in determining the chronicity of these findings. Electronically authenticated by: MARY ROJAS Date: 2022-06-03 19:15 Normal [facility] CULTURE URINEon 06-03-2022 CULTURE URINE Culture Observations: NO GROWTH. Normal [facility] Comment on above: Performed By: #### P TT, PT #### [facility] [address] [place], [place] [address] Dr. Vangie Devine [facility] SARS-CoV-2 (COVID-19) RNA SAMIR+probe Ql (Unsp spec) Not detected Normal NOT DETECTED [facility] Comment on above: Result Comment: When diagnostic testing is negative, the possibility of a false negative should be considered in the context of a patient's recent exposures and the presence of clinical signs and symptoms consistent with SARS-CoV-2. This test is not yet approved or cleared by the [place] FDA. When there are no FDA-approved or cleared tests available, and other criteria are met, FDA can make tests available under an emergency access mechanism called an Emergency Use Authorization (EUA). The EUA for this test is supported by the [place] of Health and Human Service's declaration that circumstances exist to justify the emergency use of in vitro diagnostics for the detection and/or diagnosis of the virus that causes COVID-19. This EUA will remain in effect for the duration of the COVID-19 declaration justifying emergency of IVDs, unless it is terminated or revoked by the FDA (after which the test may no longer be used). Performed By: #### C BCMAN #### [facility] [address] [place] [address] Dr. Vangie Devine ER URINE PROFILEon 2 Bilirubin Ql (U) Negative Normal NEGATIVE [facility] Comment on above: Performed By: #### C BC #### [facility] [address] [place] [address] Dr. Vangie Devine Clarity (U) CLEAR Normal CLEAR [facility] Comment on above: Performed By: #### C BC #### [facility] [address] [place] [address] Dr. Vangie Devine Color (U) LT. YELLOW Normal YELLOW [facility] Comment on above: Performed By: #### C BC #### [facility] [address] [place] [address] Dr. Vangie Devine ERUD A micrscopic examination will be performed if indicated. Normal [facility] Comment on above: Performed By: #### C BC #### [facility] [address] [place] [address] Dr. Vangie Devine Glucose Ql (U) 250 mg/dl Abnormal NEGATIVE [facility] Comment on above: Performed By: #### C BC #### [facility] [address] [place] [address] Dr. Vangie Devine Hemoglobin Ql (U) Negative Normal NEGATIVE [facility] Comment on above: Performed By: #### C BC #### [facility] [address] [place] [address] Dr. Vangie Devine Ketones Ql (U) Negative Normal NEGATIVE [facility] Comment on above: Performed By: #### C BC #### [facility] [address] [place] [address] Dr. Vangie Devine LEUKOCYTES Negative Normal NEGATIVE [facility] Comment on above: Performed By: #### C BC #### [facility] [address] [place] [address] Dr. Vangie Devine Nitrite Ql (U) Positive Abnormal NEGATIVE [facility] Comment on above: Performed By: #### C BC #### [facility] [address] [place] [address] Dr. Vangie Devine pH (U) 6.0 [pH] Normal 5-9 [facility] Comment on above: Performed By: #### C BC #### [facility] [address] [place] [address] Dr. Vangie Devine SPEC GRAVITY <=1.005 Abnormal 1.005-<=1.025 [facility] Comment on above: Performed By: #### C BC #### [facility] [address] [place] [address] Dr. Vangie Devine UA PROTEIN Negative Normal NEGATIVE/ TRACE [facility] Comment on above: Performed By: #### C BC #### [facility] [address] [place] [address] Dr. Vangie Devine UR MICRO IND INDICATED Normal [facility] Comment on above: Performed By: #### C BC #### [facility] [address] [place] [address] Dr. Vangie Devine Urobilinogen Qn (U) 0.2 {Jewel'U}/dL Normal 0.2 - 1. 0 [facility] Comment on above: Performed By: #### C BC #### [facility] [address] [place] [address] Dr. Vangie Devine FREE T3on 06-03-2022 FREE T3 2.42 pg/mlL Normal 2.18-3.98 [facility] Comment on above: Performed By: #### F T3 #### [facility] [address] [address] [address] Vangie Devine FREE T4on 06-03-2022 Free T4 [Mass/Vol] 1.93 ng/dL Critically high 0.76-1.46 [facility] Comment on above: Performed By: #### C JOBY #### [facility] [address] [address] [address] Vangie Devine LACTATE/LACTIC ACIDon 2021 Lactate [Moles/Vol] 1.2 mmol/L Normal 0.4-1.9 [facility] Comment on above: Performed By: #### C JOBY #### [facility] [address] [address] [address] Vangie Devine PROF 14(COMP METB)on 022 Albumin [Mass/Vol] 3.9 g/dL Normal 3.4-5.0 [facility] Comment on above: Performed By: #### H STROPN, TSH, CMP #### [facility] [address] [place] [address] Dr. Vangie Devine Albumin/Globulin [Mass ratio] 0.9 {ratio} Normal [facility] Comment on above: Performed By: #### H STROPN, TSH, CMP #### [facility] [address] [place] [address] Dr. Vangie Devine ALP [Catalytic activity/Vol] 138 U/L Critically high 46-116 [facility] Comment on above: Performed By: #### H STROPN, TSH, CMP #### [facility] [address] [place] [address] Dr. Vangie Devine ALT [Catalytic activity/Vol] 24 U/L Normal 14-59 [facility] Comment on above: Performed By: #### H STROPN, TSH, CMP #### [facility] [address] [place] [address] Dr. Vangie Devine Anion gap [Moles/Vol] 11.4 mmol/L Normal [facility] Comment on above: Performed By: #### H STROPN, TSH, CMP #### [facility] [address] [place] [address] Dr. Vangie Devine AST [Catalytic activity/Vol] 23 U/L Normal 15-37 [facility] Comment on above: Performed By: #### H STROPN, TSH, CMP #### [facility] [address] [address] [address] Vangie Devine Bilirubin [Mass/Vol] 0.5 mg/dL Normal 0.2-1.0 [facility] Comment on above: Performed By: #### H STROPN, TSH, CMP #### [facility] [address] [address] [address] Vangie Devine Calcium [Mass/Vol] 9.5 mg/dL Normal 8.5-10.1 [facility] Comment on above: Performed By: #### H STROPN, TSH, CMP #### [facility] [address] [address] [address] Vangie Devine Chloride [Moles/Vol] 98 mmol/L Normal 98-107 [facility] Comment on above: Performed By: #### H STROPN, TSH, CMP #### [facility] [address] [address] [address] Vangie Devine CO2 [Moles/Vol] 25.3 mmol/L Normal 21.0-32.0 [facility] Comment on above: Performed By: #### H STROPN, TSH, CMP #### [facility] [address] [address] [address] Vangie Devine Creatinine [Mass/Vol] 0.90 mg/dL Normal 0.55-1.02 [facility] Comment on above: Performed By: #### H STROPN, TSH, CMP #### [facility] [address] [address] [address] Vangie Devine EGFR-AF HONDURAN >60 Normal >=60 [facility] Comment on above: Performed By: #### H STROPN, TSH, CMP #### [facility] [address] [address] [address] Vangie Devine EGFR-NON AF HONDURAN >60 Normal >=60 [facility] Comment on above: Performed By: #### H STROPN, TSH, CMP #### [facility] [address] [address] [address] Vangie Devine Globulin (S) [Mass/Vol] 4.2 g/dL Normal [facility] Comment on above: Performed By: #### H STROPN, TSH, CMP #### [facility] [address] [address] [address] Vangie Devine Glucose [Mass/Vol] 93 mg/dL Normal 74-106 [facility] Comment on above: Performed By: #### H STROPN, TSH, CMP #### [facility] [address] [address] [address] Vangie Devine Potassium [Moles/Vol] 3.7 mmol/L Normal 3.5-5.1 [facility] Comment on above: Performed By: #### H STROPN, TSH, CMP #### [facility] [address] [place] [address] Dr. Vangie Devine Protein [Mass/Vol] 8.1 g/dL Normal 6.4-8.2 [facility] Comment on above: Performed By: #### H STROPN, TSH, CMP #### [facility] [address] [address] [address] Vangie Devine Sodium [Moles/Vol] 131 mmol/L Critically low 136-145 [facility] Comment on above: Performed By: #### H STROPN, TSH, CMP #### [facility] [address] [address] [address] Vangie Devine Urea nitrogen [Mass/Vol] 14.0 mg/dL Normal 7.0-18.0 [facility] Comment on above: Performed By: #### H STROPN, TSH, CMP #### [facility] [address] [address] [address] Vangie Devine Urea nitrogen/Creatinine [Mass ratio] 15.6 mg/mg Normal [facility] Comment on above: Performed By: #### H STROPN, TSH, CMP #### [facility] [address] [address] [address] Vangie Devine PROTIMEon 06-03-2022 INR Coag (PPP) [Relative time] 1.06 {INR} Normal [facility] Comment on above: Performed By: #### C JANNETTEHERIBERTO #### [facility] [address] [place] [address] Dr. Vangie Devine INR GUIDELINES SEE BELOW Normal [facility] Comment on above: Result Comment: MARY ANN RED INR: 2.0 - 3.0 CONDITIONS NOT LISTED BELOW 2.5 - 3.5 FOR PROSTHETIC HEART VALVE REPLACEMENT 2.5 - 3.5 RECURRENT THROMBOSIS Performed By: #### C JOBY #### [facility] [address] [place] [address] Dr. Vangie Devine PT Coag (PPP) [Time] 11.4 s Normal 9.0-11.6 [facility] Comment on above: Performed By: #### C JOBY #### [facility] [address] [place] [address] Dr. Vangie Devine PTTon 06-03-2022 aPTT Coag (Bld) [Time] 31.3 s Normal 22.3-36.2 [facility] Comment on above: Performed By: #### C JOBY #### [facility] [address] [place] [address] Dr. Vangie Devine TROPONIN, HIGH SENSITIVITYon 06-03-2022 HSTROP 26.3 pg/mL Normal 4.0-51.3 [facility] [facility] Comment on above: Result Comment: CUT- OFF POINTS HAVE BEEN ESTABLISHED BASED ON THE FOURTH UNIVERSAL DEFINITIONS OF MYOCARDIAL INFARCTION. THE UPPER REFERENCE LIMIT (URL) OF TROPONIN, DEFINED THE 99TH PERCENTILE OF cTnI DISTRIBUTION IN A REFERENCE POPULATION, HAS BEEN CONFIRMED THE DECISION THRESHOLD FOR MS DIAGNOSIS. Performed By: #### P TT, PT #### [facility] [address] [place] [address] Dr. Vangie Devine TSHon 06-03-2022 TSH 0.150 uIU/mL Critically low 0.358-3.740 [facility] Comment on above: Performed By: #### P TT, PT #### [facility] [address] [place] [address] Dr. Vangie Devine URINE MICROSCOPIC ONLYon BACTERIA TRACE Abnormal NONE SEEN [facility] Comment on above: Performed By: #### C BC #### [facility] [address] [place] [address] Dr. Vangie Devine Bacteria identified Cx Nom (U) INDICATED Normal [facility] Comment on above: Result Comment: dory cated due to positive nitrite Performed By: #### C BC #### [facility] [address] [place] [address] Dr. Vangie Devine CAST NONE SEEN Normal NONE SEEN [facility] Comment on above: Performed By: #### C BC #### [facility] [address] [place] [address] Dr. Vangie Devine Crystals LM Nom (Urine sed) NONE SEEN Normal NONE SEEN [facility] Comment on above: Performed By: #### C BC #### [facility] [address] [place] [address] Dr. Vangie Devine Epithelial cells LM Ql (Urine sed) RARE Normal NONE SEEN /RARE [facility] Comment on above: Performed By: #### C BC #### [facility] [address] [place] [address] Dr. Vangie Devine MUCOUS NONE SEEN Normal NONE SEEN [facility] Comment on above: Performed By: #### C BC #### [facility] [address] [place] [address] Dr. Vangie Devine RBC 0-2 Normal 0-2 [facility] Comment on above: Performed By: #### C BC #### [facility] [address] [place] [address] Dr. Vangie Devine WBC 0-2 Abnormal NONE SEEN [facility] Comment on above: Performed By: #### C BC #### [facility] [address] [place] [address] Dr. Vangie Devine XR CHEST 1 Von 06-03-2022 XR CHEST 1 V EXAM: XR CHEST 1 V at 1835 hours HISTORY: BENIGN PAROXYSMAL VERTIGO, UNSPECIFIED EAR COMPARISON: 05/18/2022 TECHNIQUE: AP upright portable chest x-ray FINDINGS: The left-sided transvenous pacemaker remains in place, obscuring detail at the left lung base. The heart is not significantly enlarged. There is prominence of the central pulmonary vasculature without overt cardiac decompensation. No acute infiltrate, effusion or pneumothorax is readily identified. The osseous structures are grossly intact. IMPRESSION: The left lung base is obscured by the pacemaker. The heart is not enlarged, and there is prominence of the central pulmonary vasculature. This appears slightly worse than seen in the prior study. There is no clear evidence of a focal infiltrate or overt cardiac decompensation. Electronically authenticated by: MARY ROJAS Date: 2022-06-03 19:25 Normal [facility] XR CHEST 2 Von 05-18-2022 XR CHEST 2 V EXAMINATION: XR CHEST 2 V HISTORY: Cardiac pacemaker in situ ; pacemaker placement COMPARISON: XR chest 01/10/2022 FINDINGS: LUNGS: Underexpanded lungs with mild discoid atelectasis bilaterally. VASCULATURE: No increased pulmonary vasculature. PLEURA: No pneumothorax, effusion, or pleural thickening. CARDIAC: No cardiomegaly or cardiac silhouette abnormality. MEDIASTINUM: No visible mass or adenopathy. BONES: No fracture or visible bone lesion. OTHER: Cardiac pacer projecting over left hemithorax with intact leads. IMPRESSION: 1. Low lung volume examination with mild discoid atelectasis. No postprocedural pneumothorax or pleural effusion. 2. Stable cardiac silhouette. Electronically authenticated by: ANGEL CHRISTOPHER Date: 2022-05-18 10:55 Normal [facility] Covid-19 PCR (CVDTB)on SARS-CoV-2 (COVID-19) RNA SAMIR+probe Ql (Unsp spec) Not detected Normal NOT DETECTED [facility] Comment on above: Result Comment: This test is not yet approved or cleared by the [place] FDA. When there are no FDA-approved or cleared tests available, and other criteria are met, FDA can make tests available under an emergency access mechanism called an Emergency Use Authorization (EUA). The EUA for this test is supported by the [place] of Health and Human Service's (HHS's) declaration that circumstances exist to justify the emergency use of in vitro diagnostics for the detection and/or diagnosis of the virus that causes COVID-19. This EUA will remain in effect (meaning this test can be used) for the duration of the COVID-19 declaration justifying emergency of IVDs, unless it is terminated or revoked by FDA (after which the test may no longer be used). When diagnostic testing is negative, the possibility of a false negative should be considered in the context of a patient's recent exposures and the presence of clinical signs and symptoms consistent with SARS-CoV-2. Performed By: #### P TT, PT #### [facility] [address] [place] [address] Dr. Vangie Devine CBC AUTO DIFFon 05-12-2022 BASO # 0.1 103/ul Normal 0.0-0.1 [facility] Comment on above: Performed By: #### C BC #### [facility] [address] [place] [address] Dr. Vangie Devine Basophils/100 WBC (Bld) 0.7 % Normal 0.2-2.0 [facility] Comment on above: Performed By: #### C BC #### [facility] [address] [place] [address] Dr. Vangie Devine EO # 0.2 103/ul Normal 0.0-0.7 [facility] Comment on above: Performed By: #### C BC #### [facility] [address] [place] [address] Dr. Vangie Devine Eosinophils/100 WBC (Bld) 2.1 % Normal 0.9-7.0 [facility] Comment on above: Performed By: #### C BC #### [facility] [address] [place] [address] Dr. Vangie Devine Erythrocyte distribution width (RBC) [Ratio] 13.1 % Normal 11.0-15.0 [facility] Comment on above: Performed By: #### C BC #### [facility] [address] [place] [address] Dr. Vangie Devine Hematocrit (Bld) [Volume fraction] 43.2 % Normal 36.0-48.0 [facility] Comment on above: Performed By: #### C BC #### [facility] [address] [place] [address] Dr. Vangie Devine Hemoglobin (Bld) [Mass/Vol] 14.2 g/dL Normal 12.0-16.0 [facility] Comment on above: Performed By: #### C BC #### [facility] [address] [place] [address] Dr. Vangie Devine IG # 0.02 10e3/ul Normal 0.00-0.03 [facility] Comment on above: Performed By: #### C BC #### [facility] [address] [place] [address] Dr. Vangie Devine IG % 0.2 % Normal 0.0-0.5 [facility] Comment on above: Performed By: #### C BC #### [facility] [address] [place] [address] Dr. Vangie Devine LYMPH # 1.9 103/ul Normal 1.2-3.8 [facility] Comment on above: Performed By: #### C BC #### [facility] [address] [place] [address] Dr. Vangie Devine Lymphocytes/100 WBC (Bld) 22.2 % Normal 20.5-60.0 [facility] Comment on above: Performed By: #### C BC #### [facility] [address] [place] [address] Dr. Vangie Devine MANUAL DIFF REQ NO Normal [facility] Comment on above: Performed By: #### C BC #### [facility] [address] [place] [address] Dr. Vangie Devine MCH (RBC) [Entitic mass] 30.5 pg Normal 26.7-34.0 [facility] Comment on above: Performed By: #### C BC #### [facility] [address] [place] [address] Dr. Vangie Devine MCHC (RBC) [Mass/Vol] 32.9 g/dL Normal 29.9-35.2 [facility] Comment on above: Performed By: #### C BC #### [facility] [address] [place] [address] Dr. Vangie Devine MCV (RBC) [Entitic vol] 92.7 fL Normal 81.0-99.0 [facility] Comment on above: Performed By: #### C BC #### [facility] [address] [place] [address] Dr. Vangie Devine MONO # 0.5 103/ul Normal 0.3-0.8 [facility] Comment on above: Performed By: #### C BC #### [facility] [address] [place] [address] Dr. Vangie Devine Monocytes/100 WBC (Bld) 6.0 % Normal 1.7-12.0 [facility] Comment on above: Performed By: #### C BC #### [facility] [address] [place] [address] Dr. Vangie Devine NEUT # 6.0 103/ul Normal 1.4-6.5 [facility] Comment on above: Performed By: #### C BC #### [facility] [address] [place] [address] Dr. Vangie Devine Neutrophils/100 WBC (Bld) 68.8 % Normal 43.0-75.0 [facility] Comment on above: Performed By: #### C BC #### [facility] [address] [place] [address] Dr. Vangei Devine Platelet mean volume (Bld) [Entitic vol] 11.7 fL Normal 9.5-13.5 [facility] Comment on above: Performed By: #### C BC #### [facility] [address] [place] [address] Dr. Vangie Devine PLT 176 103/ul Normal 150-450 [facility] Comment on above: Performed By: #### C BC #### [facility] [address] [place] [address] Dr. Vangie Devine RBC 4.66 106/ul Normal 4.20-5.40 [facility] Comment on above: Performed By: #### C BC #### [facility] [address] [place] [address] Dr. Vangie Devine WBC 8.7 103/ul Normal 4.0-11.0 [facility] Comment on above: Performed By: #### C BC #### [facility] [address] [place] [address] Dr. Vangie Devine PROF CHEM 8 (BAS METB)on Anion gap [Moles/Vol] 13.9 mmol/L Normal [facility] Comment on above: Performed By: #### C BC #### [facility] [address] [place] [address] Dr. Vangie Devine Calcium [Mass/Vol] 9.2 mg/dL Normal 8.5-10.1 [facility] Comment on above: Performed By: #### C BC #### [facility] [address] [address] [address] Vangie Devine Chloride [Moles/Vol] 101 mmol/L Normal 98-107 [facility] Comment on above: Performed By: #### C BC #### [facility] [address] [place] [address] Dr. Vangie Devine CO2 [Moles/Vol] 24.2 mmol/L Normal 21.0-32.0 [facility] Comment on above: Performed By: #### C BC #### [facility] [address] [place] [address] Dr. Vangie Devine Creatinine [Mass/Vol] 0.87 mg/dL Normal 0.55-1.02 [facility] Comment on above: Performed By: #### C BC #### [facility] [address] [place] [address] Dr. Vangie Devine EGFR-AF HONDURAN >60 Normal >=60 [facility] Comment on above: Performed By: #### C BC #### [facility] [address] [place] [address] Dr. Vangie Devine EGFR-NON AF HONDURAN >60 Normal >=60 [facility] Comment on above: Performed By: #### C BC #### [facility] [address] [place] [address] Dr. Vangie Devine Glucose [Mass/Vol] 89 mg/dL Normal 74-106 [facility] Comment on above: Performed By: #### C BC #### [facility] [address] [place] [address] Dr. Vangie Devine Potassium [Moles/Vol] 4.1 mmol/L Normal 3.5-5.1 [facility] Comment on above: Performed By: #### C BC #### [facility] [address] [place] [address] Dr. Vangie Devine Sodium [Moles/Vol] 135 mmol/L Critically low 136-145 [facility] Comment on above: Performed By: #### C BC #### [facility] [address] [place] [address] Dr. Vangie Devine Urea nitrogen [Mass/Vol] 9.0 mg/dL Normal 7.0-18.0 [facility] Comment on above: Performed By: #### C BC #### [facility] [address] [place] [address] Dr. Vangie Devine Urea nitrogen/Creatinine [Mass ratio] 10.3 mg/mg Normal [facility] Comment on above: Performed By: #### C BC #### [facility] [address] [place] [address] Dr. Vangie Devine PROTIMEon 05-12-2022 INR Coag (PPP) [Relative time] 1.96 {INR} Normal [facility] Comment on above: Performed By: #### P T #### [facility] [address] [place] [address] Dr. Vangie Devine INR GUIDELINES SEE BELOW Normal [facility] Comment on above: Result Comment: MARY ANN RED INR: 2.0 - 3.0 CONDITIONS NOT LISTED BELOW 2.5 - 3.5 FOR PROSTHETIC HEART VALVE REPLACEMENT 2.5 - 3.5 RECURRENT THROMBOSIS Performed By: #### P T #### [facility] [address] [place] [address] Dr. Vangie Devine PT Coag (PPP) [Time] 20.3 s Critically high 9.0-11.6 [facility] Comment on above: Performed By: #### P T #### [facility] [address] [place] [address] Dr. Vangie Devine T4, T3U, FTI LABCORPon 05-07 Free Thyroxine Index 4.7 Normal 1.2-4.9 [facility] Comment on above: Performed By: #### T HYLC #### [facility] [address] [address] [address] Vangie Devine T3 Uptake 34 % Normal 24-39 [facility] Comment on above: Performed By: #### T HYLC #### [facility] [address] [address] [address] Vangie Devine T4 [Mass/Vol] 13.8 ug/dL Critically high 4.5-12.0 [facility] Comment on above: Performed By: #### T HYLC #### [facility] [address] [address] [address] Vangie Devine TSHon 05-06-2022 TSH 0.063 uIU/mL Critically low 0.358-3.740 [facility] Comment on above: Performed By: #### T SH #### [facility] [address] [place] [address] Dr. Vangie Devine ECHOCARDIO M/2D COMPLETEon 0 03-31-2022 ECHOCARDIO M/2D COMPLETE Patient: JAVIER ROSA Exam Date: 03/31/2022 : 1970 Gender:F Ordering : DR DEENA SANTA M.D. Admission #: [id number] Family : Order #: [id number] CLICK HERE TO VIEW EXAM ECHOCARDIOGRAM REPORT PROCEDURE: CARDIO PULMONARY ECHOCARDIO M/2D COMP INDICATIONS: Acute systolic heart failure COMPARISON: None. DESCRIPTION: COMPLETE ECHOCARDIOGRAM Real-time transthoracic echocardiography with 2D, M-mode, spectral and color flow Doppler performed. QUALITY: Technical quality was good. LEFT VENTRICLE: Normal chamber size. Normal left ventricular wall thickness. Global left ventricular systolic function is moderately reduced. There is akinesis of the mid to distal segments and dyskinesis of the apex. No evidence of left ventricular thrombus seen. LV EF: Estimated left ventricular systolic function is 30 to 35%. DIASTOLIC: ATRIAL SEPTUM: LEFT ATRIUM: Moderate dilatation. RIGHT ATRIUM: Normal chamber size. RIGHT VENTRICLE: Normal chamber size. Normal right ventricular systolic function. TRICUSPID VALVE: Normal mobility and thickness. No stenosis with mild regurgitation. Mild pulmonary hypertension. RVSP is 40 mmHg MITRAL VALVE: Normal mobility and thickness. No mitral valve prolapse. No evidence of mitral valve stenosis. Mild to moderate mitral regurgitation. AORTIC VALVE: Normal trileaflet appearance. No visible sclerosis. Normal leaflet mobility. No evidence of aortic valve stenosis. No aortic regurgitation. AORTIC ROOT: Normal diameter and appearance. PULMONIC VALVE: Normal thickness and mobility. No stenosis. Trivial regurgitation. PERICARDIUM: No evidence of pericardial effusion. IVC: Collapses with inspirations. Normal size. PLEURA: CONCLUSION: 1. Left ventricular systolic function is moderately reduced with segmental wall motion abnormalities. No evidence of intracavitary thrombus seen. Left ventricular ejection fraction is estimated at 30 to 35%. 2. Normal right ventricular size and systolic function. 3. Mitral cuspid regurgitation. 4. Mildly elevated right-sided pressures. 5. No evidence of pericardial effusion. Dictated by: Deena Santa M.D. on 03/31/2022 at 18:28 Approved by: Deena Santa M.D. on 03/31/2022 at 18:35 Normal [facility] CBC AUTO DIFFon 03-28-2022 BASO # 0.1 103/ul Normal 0.0-0.1 [facility] Comment on above: Performed By: #### C BC #### [facility] [address] [address] [address] Vangie Devine Basophils/100 WBC (Bld) 0.6 % Normal 0.2-2.0 [facility] Comment on above: Performed By: #### C BC #### [facility] [address] [address] [address] Vangie Devine EO # 0.2 103/ul Normal 0.0-0.7 [facility] Comment on above: Performed By: #### C BC #### [facility] [address] [address] [address] Vangie Devine Eosinophils/100 WBC (Bld) 2.0 % Normal 0.9-7.0 [facility] Comment on above: Performed By: #### C BC #### [facility] [address] [address] [address] Vangie Devine Erythrocyte distribution width (RBC) [Ratio] 12.7 % Normal 11.0-15.0 [facility] Comment on above: Performed By: #### C BC #### [facility] [address] [place] [address] Dr. Vangie Devine Hematocrit (Bld) [Volume fraction] 42.6 % Normal 36.0-48.0 [facility] Comment on above: Performed By: #### C BC #### [facility] [address] [place] [address] Dr. Vangie Devine Hemoglobin (Bld) [Mass/Vol] 13.9 g/dL Normal 12.0-16.0 [facility] Comment on above: Performed By: #### C BC #### [facility] [address] [place] [address] Dr. Vangie Devine IG # 0.03 10e3/ul Normal 0.00-0.03 [facility] Comment on above: Performed By: #### C BC #### [facility] [address] [place] [address] Dr. Vangie Devine IG % 0.4 % Normal 0.0-0.5 [facility] Comment on above: Performed By: #### C BC #### [facility] [address] [place] [address] Dr. Vangie Devine LYMPH # 2.3 103/ul Normal 1.2-3.8 [facility] Comment on above: Performed By: #### C BC #### [facility] [address] [place] [address] Dr. Vangie Devine Lymphocytes/100 WBC (Bld) 28.7 % Normal 20.5-60.0 [facility] Comment on above: Performed By: #### C BC #### [facility] [address] [place] [address] Dr. Vangie Devine MANUAL DIFF REQ NO Normal [facility] Comment on above: Performed By: #### C BC #### [facility] [address] [place] [address] Dr. Vangie Devine MCH (RBC) [Entitic mass] 31.0 pg Normal 26.7-34.0 [facility] Comment on above: Performed By: #### C BC #### [facility] [address] [address] [address] Vangie Devine MCHC (RBC) [Mass/Vol] 32.6 g/dL Normal 29.9-35.2 [facility] Comment on above: Performed By: #### C BC #### [facility] [address] [place] [address] Dr. Vangie Devine MCV (RBC) [Entitic vol] 95.1 fL Normal 81.0-99.0 [facility] Comment on above: Performed By: #### C BC #### [facility] [address] [place] [address] Dr. Vangie Devine MONO # 0.5 103/ul Normal 0.3-0.8 [facility] Comment on above: Performed By: #### C BC #### [facility] [address] [place] [address] Dr. Vangie Devine Monocytes/100 WBC (Bld) 6.8 % Normal 1.7-12.0 [facility] Comment on above: Performed By: #### C BC #### [facility] [address] [place] [address] Dr. Vangie Devine NEUT # 4.9 103/ul Normal 1.4-6.5 [facility] Comment on above: Performed By: #### C BC #### [facility] [address] [place] [address] Dr. Vangie Devine Neutrophils/100 WBC (Bld) 61.5 % Normal 43.0-75.0 [facility] Comment on above: Performed By: #### C BC #### [facility] [address] [place] [address] Dr. Vangie Devine Platelet mean volume (Bld) [Entitic vol] 11.0 fL Normal 9.5-13.5 [facility] Comment on above: Performed By: #### C BC #### [facility] [address] [place] [address] Dr. Vangie Devine PLT 224 103/ul Normal 150-450 [facility] Comment on above: Performed By: #### C BC #### [facility] [address] [place], [place] [id number] Dr. Vangie Devine RBC 4.48 106/ul Normal 4.20-5.40 [facility] Comment on above: Performed By: #### C BC #### [facility] [address] [address] [address] Vangie Devine WBC 7.9 103/ul Normal 4.0-11.0 [facility] Comment on above: Performed By: #### C BC #### [facility] [address] [place] [address] Dr. Vangie Devine LIPID PROFILEon 03-28-2022 CHOL-HDL RATIO NORM SEE BELOW Normal [facility] Comment on above: Result Comment: 3.3 - 4.4 LOW RISK 4.4 - 7.1 AVERAGE RISK 7.1 - 11.0 MODERATE RISK >11.0 HIGH RISK Performed By: #### C BC #### [facility] [address] [place] [address] Dr. Vangie Devine Cholesterol [Mass/Vol] 103 mg/dL Normal <=200 Th [facility] Comment on above: Performed By: #### C BC #### [facility] [address] [place] [address] Dr. Vangie Devien Cholesterol in HDL [Mass/Vol] 39 mg/dL Critically low 40-60 [facility] Comment on above: Performed By: #### C BC #### [facility] [address] [place] [address] Dr. Vangie Devine Cholesterol in LDL [Mass/Vol] 46.8 mg/dL Normal [facility] Comment on above: Performed By: #### C BC #### [facility] [address] [place] [address] Dr. Vangie Devine Cholesterol.total/Chol esterol in HDL [Mass ratio] 2.6 {ratio} Normal [facility] Comment on above: Performed By: #### C BC #### [facility] [address] [place] [address] Dr. Vangie Devine HDL NORMAL > or = 60 mg/dl - LOW CARDIOVASCULAR RISK <40 mg/dl - HIGH CARDIOVASCULAR RISK Normal [facility] Comment on above: Performed By: #### C BC #### [facility] [address] [address] [address] Vangie Devine LDL CALC NORMAL SEE BELOW Normal [facility] Comment on above: Result Comment: <100 mg/dl OPTIMAL 100 - 129 mg/dl NEAR OR ABOVE OPTIMAL 130 - 159 mg/dl BORDERLINE HIGH 160 - 189 mg/dl HIGH >190 mg/dl VERY HIGH Performed By: #### C BC #### [facility] [address] [address] [address] Vangie Devine Triglyceride [Mass/Vol] 86 mg/dL Normal <=150 [facility] Comment on above: Performed By: #### C BC #### [facility] [address] [place] [address] Dr. Vangie Devine VLDL CALC 17.2 mg/dL Normal [facility] Comment on above: Performed By: #### C BC #### [facility] [address] [place] [address] Dr. Vangie Devine PROF 14(COMP METB)on 022 Albumin [Mass/Vol] 3.5 g/dL Normal 3.4-5.0 [facility] Comment on above: Performed By: #### C BC #### [facility] [address] [place] [address] Dr. Vangie Devine Albumin/Globulin [Mass ratio] 0.9 {ratio} Normal [facility] Comment on above: Performed By: #### C BC #### [facility] [address] [place] [address] Dr. Vangie Devine ALP [Catalytic activity/Vol] 127 U/L Critically high 46-116 [facility] Comment on above: Performed By: #### C BC #### [facility] [address] [address] [address] Vangie Devine ALT [Catalytic activity/Vol] 29 U/L Normal 14-59 [facility] Comment on above: Performed By: #### C BC #### [facility] [address] [place] [address] Dr. Vangie Devine Anion gap [Moles/Vol] 15.3 mmol/L Normal [facility] Comment on above: Performed By: #### C BC #### [facility] [address] [address] [address] Vangie Devine AST [Catalytic activity/Vol] 21 U/L Normal 15-37 [facility] Comment on above: Performed By: #### C BC #### [facility] [address] [address] [address] Vangie Devine Bilirubin [Mass/Vol] 0.5 mg/dL Normal 0.2-1.0 [facility] Comment on above: Performed By: #### C BC #### [facility] [address] [address] [address] Vangie Devine Calcium [Mass/Vol] 8.9 mg/dL Normal 8.5-10.1 [facility] Comment on above: Performed By: #### C BC #### [facility] [address] [address] [address] Vangie Devine Chloride [Moles/Vol] 101 mmol/L Normal 98-107 [facility] Comment on above: Performed By: #### C BC #### [facility] [address] [address] [address] Vangie Devine CO2 [Moles/Vol] 25.8 mmol/L Normal 21.0-32.0 [facility] Comment on above: Performed By: #### C BC #### [facility] [address] [address] [address] Vangie Devine Creatinine [Mass/Vol] 0.89 mg/dL Normal 0.55-1.02 [facility] Comment on above: Performed By: #### C BC #### [facility] [address] [address] [address] Vangie Devine EGFR-AF HONDURAN >60 Normal >=60 [facility] Comment on above: Performed By: #### C BC #### [facility] [address] [address] [address] Vangie Devine EGFR-NON AF HONDURAN >60 Normal >=60 [facility] Comment on above: Performed By: #### C BC #### [facility] [address] [address] [address] Vangie Devine Globulin (S) [Mass/Vol] 4.1 g/dL Normal [facility] Comment on above: Performed By: #### C BC #### [facility] [id number] Vangie Devine Glucose [Mass/Vol] 94 mg/dL Normal 74-106 [facility] Comment on above: Performed By: #### C BC #### [facility] [address] [address] [address] Vangie Devine Potassium [Moles/Vol] 5.1 mmol/L Normal 3.5-5.1 [facility] Comment on above: Performed By: #### C BC #### [facility] [address] [place] [address] Dr. Vangie Devine Protein [Mass/Vol] 7.6 g/dL Normal 6.4-8.2 [facility] Comment on above: Performed By: #### C BC #### [facility] [address] [address] [address] Vangie Devine Sodium [Moles/Vol] 137 mmol/L Normal 136-145 [facility] Comment on above: Performed By: #### C BC #### [facility] [address] [address] [address] Vangie Devine Urea nitrogen [Mass/Vol] 9.0 mg/dL Normal 7.0-18.0 [facility] Comment on above: Performed By: #### C BC #### [facility] [address] [place] [address] Dr. Vangie Devine Urea nitrogen/Creatinine [Mass ratio] 10.1 mg/mg Normal [facility] Comment on above: Performed By: #### C BC #### [facility] [id number] Vangie Devine Cardiac Stress Teston 2021 Cardiac Stress Test [address], [address], [place] [address] Exercise Stress Test Patient Name: JAVIER Ordering Physician: [id number] Nolan Lagunas DO [facility] [place] Study Date: 01/26/2022 Reading Physician: [id number] Myke Levin MD MRN/PID: [id number] Supervising [id number] Myke Levin Physician: Accession/Order#: [id number] Referring Physician: [id number] NOLAN LAGUNAS Date of : 1970 PCP: Gender: F Fellow: Height: 147.32 cm Nurse: Joe Elmore RN Weight: 84.37 kg Dresser Tender: ADE BSA: 1.77 m2 Technologist: BMI: 38.87 kg/m2 Additional Staff: Age: 52 years cc report to: Patient Location: cc report to: [id number] Nolan Lagunas DO Study Type: Cardiac Stress Test Diagnosis/ICD: I21.09-ST elevation (STEMI) myocardial infarction involving other coronary artery of anterior wall; I51.3-Intracardiac thrombosis, not elsewhere classified Indication: MS Procedure/CPT: Stress Test Interpretation-[id number] ; Stress Test Supervision-[id number] Falls Risk: Low: Patient has low risk for sustaining a fall; environmental safety interventions in place. Study Details: Correct procedure and correct patient verified verbally. Patient Performance: The peak heart rate achieved was 144 bpm, which was 85 % of the age predicted target heart rate of 169 bpm. The resting blood pressure was 104/64 mmHg with a heart rate of 79 bpm. The standing blood pressure was 106/70 mmHg with a heart rate of 78 bpm. The patient's functional capacity was below average. The patient developed dyspnea during the stress exam. The symptoms resolved with rest. The blood pressure response was normal. The test was terminated due to: dyspnea. Mild sinus tachycardia with occasional PVCs. Baseline ECG: Resting ECG showed normal sinus rhythm. Normal sinus rhythm with anteroseptal wall MS. Stress Stage Data: + +- --+------+-------+ HR Sys BP Granados BP + +- --+------+-------+ Baseline Resting 79 104 64 + +- --+------+-------+ Baseline Standing 78 106 70 + +- --+------+-------+ Stage I 131 128 68 + +- --+------+-------+ Stage II 144 148 70 + +- --+------+-------+ Recovery ECG: The heart rate recovery was normal. + +---+-- ----+-------+ HR Sys BP Granados BP + +---+-- ----+-------+ Recovery I 144 152 68 + +---+-- ----+-------+ Recovery II 134 154 66 + +---+-- ----+-------+ Recovery III 101 136 74 + +---+-- ----+-------+ Recovery IV 93 118 78 + +---+-- ----+-------+ Summary: 1. Graded exercise stress test with no diagnostic ST-T changes for ischemia. 2. No provoked chest pain. 3. Occasional PVCs. 4. Appropriate hemodynamic response to exercise. 5. Limited exercise tolerance. 6. Recommend referral to cardiac rehab. 7. The adequate level of stress was achieved. [id number] Myke Levin MD Electronically signed on 01/26/2022 at 5:41:45 PM Final Normal [facility] Cardiac Stress Test MP-No rth [place] Cleo Dominguez DO Work Phone: [phone] Tobacco Screening.on 022 Adult depression screening assessment Yes [facility] syed Liao DO Work Phone: Adult depression screening assessment No [facility] Cleo Dominguez DO Work Phone: Fall risk assessment c) Not medically indicated [facility] Cleo Dominguez DO Work Phone: Tobacco use status CP b) No [facility] Cleo Dominguez DO Work Phone: [phone] Tobacco Screening. 0-Not at all [facility] Cleo Dominguez DO Work Phone: [phone] Tobacco Screening. 1-Several days [facility] Cleo Dominguez DO Work Phone: Tobacco Screening. 2-More than half the days [facility] Cleo Dominguez DO Work Phone: [phone] Tobacco Screening. Not difficult at all [facility] Cleo Dominguez DO Work Phone: Laboratory - Coagulationon 0 01-17-2022 INR Coag (Bld) [Relative time] 1.56 {INR} [facility] Cleo Dominguez DO Work Phone: PROTIMEon 01-17-2022 INR Coag (PPP) [Relative time] 1.56 {INR} Normal [facility] Comment on above: Performed By: #### C JOBY #### [facility] [address] [place] [address] Dr. Vangie Devine INR GUIDELINES SEE BELOW Normal [facility] Comment on above: Result Comment: MARY ANN RED INR: 2.0 - 3.0 CONDITIONS NOT LISTED BELOW 2.5 - 3.5 FOR PROSTHETIC HEART VALVE REPLACEMENT 2.5 - 3.5 RECURRENT THROMBOSIS Performed By: #### C JOBY #### [facility] [address] [place] [address] Dr. Vangie Devine PT Coag (PPP) [Time] 16.4 s Critically high 9.0-11.6 [facility] Comment on above: Performed By: #### C [facility] #### [facility] [address] [address] [address] Vangie Devine Activated partial thrombopla stin time (aPTT) in platelet poor plasma by coagulation aOrdered By: Isidra Lagunas on 01-14-2022 aPTT Coag (PPP) [Time] 34.5 s 25.1-36.5 [facility] Basic Metabolic Panelon 06 Calcium [Mass/Vol] 8.5 mg/dL Normal 8.2-10.2 [facility] Comment on above: Performed By: #### B MP #### [facility] [address] Chloride [Moles/Vol] 99 mmol/L Normal 95-114 [facility] Comment on above: Performed By: #### B MP #### [facility] [address] CO2 [Moles/Vol] 21.8 mmol/L Low 22.0-30.0 [facility] Comment on above: Performed By: #### B MP #### [facility] [address] Creatinine [Mass/Vol] 0.69 mg/dL Normal 0.44-1.03 [facility] Comment on above: Performed By: #### B MP #### [facility] [address] [place] [address] [place] Creatinine Clr Calc Pharmacy 94.39 [facility] Comment on above: Result Comment: PERF ORMED BY: [place] [address] PATHOLOGIST [employer]OMAT[employer]IN[employer] LATHE [employer]TER QUINN MAGALLON M.D. Performed By: #### B MP #### [address] Estimated GFR ( Renea > 60 [facility] Comment on above: Result Comment: GFR estimated reference range: According to KDOQI guidelines, <60 ml/min/1.73m2 is sufficient to diagnose a patient with chronic kidney disease. Performed By: #### B MP #### [facility] [address] [place] [address] [place] Estimated GFR (Non- Am > 60 Normal [facility] Comment on above: Performed By: #### B MP #### [facility] [address] Glucose [Mass/Vol] 101 mg/dL High 70-100 [facility] Comment on above: Result Comment: [place] Glucose Reference Range is dependent on time and content of last meal. Glucose of more than 200 mg/dL in a nonstressed, ambulatory subject supports the diagnosis of Diabetes Mellitus. ADA recommended reference range Performed By: #### B MP #### [address] Potassium [Moles/Vol] 4.2 mmol/L Normal 3.5-5.1 [facility] Comment on above: Performed By: #### B MP #### [facility] [address] Sodium [Moles/Vol] 129 mmol/L Low 136-146 [facility] Comment on above: Performed By: #### B MP #### [place] [address] [place] Urea nitrogen [Mass/Vol] 8 mg/dL Low 9-23 [facility] Comment on above: Performed By: #### B MP #### [place] [address] [place] Creatinine and Glomerular fi ltration rate.predicted panel (S/P/Bld)Ordered By: Isidra Lagunas on 01-14-2022 Creatinine [Mass/Vol] 0.69 mg/dL 0.44-1.03 [facility] Estimated glomerular filtrat ion rate (GFR) non- AmericanOrdered By: Isidra Lagunas on 01-14-2022 GFR/1.73 sq M.predicted among non-blacks MDRD (S/P/Bld) [Vol rate/Area] > 60 mL/Min [facility] Laboratory - CoagulationOrde red By: Isidra Lagunas on 01-14-2022 PT Coag (PPP) [Time] 17.7 s 9.0-12.9 [facility] No Panel InformationOrdered By: Isidra Lagunas on 01-14-2022 Estimated GFR () > 60 mL/Min [facility] Comment on above: GFR estimated refere nce range: According to KDOQI guidelines, <60 ml/min/1.73m2 is sufficient to diagnose a patient with chronic kidney disease. Pharmacy Creatinine Clearance (Chem 94.39 [facility] Partial Thromboplastin Timeo n 01-14-2022 aPTT Coag (Bld) [Time] 34.5 s Normal 25.1-36.5 [facility] Comment on above: Order Comment: List the anticoagulant: HEPARIN, UNFRACTIONATED Result Comment: PERF ORMED BY: [place] [address] PATHOLOGIST [employer]OM[employer]IN[employer]HE [employer]TER QUINN MAGALLON M.D. Performed By: #### P TT #### [address] aPTT Coag (Bld) [Time] 97.0 s Off scale high 25.1-36.5 [facility] Comment on above: Order Comment: List the anticoagulant: HEPARIN, UNFRACTIONATED Result Comment: Resu lts called at 1036 on 01/14/22 PERFORMED BY: [place] [address] PATHOLOGIST [employer]OMAT[employer]IN[employer] LATHE [employer]TER QUINN MAGALLON M.D. Performed By: #### P TT #### [id number] [facility] aPTT Coag (Bld) [Time] 90.6 s Off scale high 25.1-36.5 [facility] Comment on above: Result Comment: Resu lts called at 0312 on 01/14/22 PERFORMED BY: [place] [address] PATHOLOGIST AUTOM[employer]IN[employer]HE [employer]TER QUINN MAGALLON M.D. Performed By: #### P TT #### [address] Platelet poor plasma interna tional normalized ratio (INR) by coagulation assay (relatOrdered By: Isidra Lagunas on 01-14-2022 INR Coag (PPP) [Relative time] 1.6 {INR} [facility] Comment on above: INR Therapeutic Rang e A) Pre- and Peroperative OAT started two weeks before surgery. NOT HIP SURGERY: 1.5 - 2.5 HIP SURGERY: 2 - 3 B) Primary and secondary prevention of venous THROMBOSIS: 2 - 3 C) Active venous thrombosis, pulmonary embolism and prevention of recurrent venous thrombosis: 2 - 3 D) Prevention of arterial thromboembolism including patients with mechanical heart valves: 3 - 4.5 Prothrombin Time INRon 01-14 INR Coag (PPP) [Relative time] 1.6 {INR} Normal [facility] Comment on above: Result Comment: INR Therapeutic Range A) Pre- and Peroperative OAT started two weeks before surgery. NOT HIP SURGERY: 1.5 - 2.5 HIP SURGERY: 2 - 3 B) Primary and secondary prevention of venous THROMBOSIS: 2 - 3 C) Active venous thrombosis, pulmonary embolism and prevention of recurrent venous thrombosis: 2 - 3 D) Prevention of arterial thromboembolism including patients with mechanical heart valves: 3 - 4.5 PERFORMED BY: [place] [address] PATHOLOGIST AUTOMAT[employer] SPIN[employer]ING LATHE [employer]TER QUINN MAGALLON M.D. Performed By: #### P T #### [facility] [address] [place] [address] PT Coag (PPP) [Time] 17.7 s High 9.0-12.9 [facility] Comment on above: Performed By: #### P T #### [facility] [address] [place] [address] Serum or plasma calcium ivana urement (mass/volume)Ordered By: Isidra Lagunas on 01-14-2022 Calcium [Mass/Vol] 8.5 mg/dL 8.2-10.2 [facility] Serum or plasma chloride francesca surement (moles/volume)Ordered By: Isidra Lagunas on 01-14-2022 Chloride [Moles/Vol] 99 mmol/L 95-114 [facility] Serum or plasma glucose ivana urement (mass/volume)Ordered By: Isidra Lagunas on 01-14-2022 Glucose [Mass/Vol] 101 mg/dL 70-100 [facility] Comment on above: ADA recommended refe rence range Random Glucose Reference Range is dependent on time and content of last meal. Glucose of more than 200 mg/dL in a nonstressed, ambulatory subject supports the diagnosis of Diabetes Mellitus. Serum or plasma potassium me asurement (moles/volume)Ordered By: Isidra Lagunas on 01-14-2022 Potassium [Moles/Vol] 4.2 mmol/L 3.5-5.1 [facility] Serum or plasma sodium measu rement (moles/volume)Ordered By: Isidra Lagunas on 01-14-2022 Sodium [Moles/Vol] 129 mmol/L 136-146 [facility] Serum or plasma total carbon dioxide measurement (moles/volume)Ordered By: Isidra Lagunas on 01-14-2022 CO2 [Moles/Vol] 21.8 mmol/L 22.0-30.0 [facility] Serum or plasma urea nitroge n measurement (mass/volume)Ordered By: Isidra Lagunas on 01-14-2022 Urea nitrogen [Mass/Vol] 8 mg/dL 9-23 [facility] Basic Metabolic Panelon Calcium [Mass/Vol] 8.3 mg/dL Normal 8.2-10.2 [facility] Comment on above: Performed By: #### P TT #### [facility] [address] [place] [address] [place] Chloride [Moles/Vol] 100 mmol/L Normal 95-114 [facility] Comment on above: Performed By: #### P TT #### [facility] [address] [id number] [place] CO2 [Moles/Vol] 22.1 mmol/L Normal 22.0-30.0 [facility] Comment on above: Performed By: #### P TT #### [facility] [address] [id number] [place] Creatinine [Mass/Vol] 0.65 mg/dL Normal 0.44-1.03 [facility] Comment on above: Performed By: #### P TT #### [place] [address] [place] Creatinine Clr Calc Pharmacy 98.31 [facility] Comment on above: Result Comment: PERF ORMED BY: [place] [address] PATHOLOGIST AUTOMAT[employer]IN[employer]HE [employer]TER QUINN MAGALLON M.D. Performed By: #### P TT #### [address] Estimated GFR ( Renea > 60 [facility] Comment on above: Result Comment: GFR estimated reference range: According to KDOQI guidelines, <60 ml/min/1.73m2 is sufficient to diagnose a patient with chronic kidney disease. Performed By: #### P TT #### [address] Estimated GFR (Non- Am > 60 [facility] Comment on above: Performed By: #### P TT #### [address] Glucose [Mass/Vol] 100 mg/dL Normal 70-100 [facility] Comment on above: Result Comment: [place] om Glucose Reference Range is dependent on time and content of last meal. Glucose of more than 200 mg/dL in a nonstressed, ambulatory subject supports the diagnosis of Diabetes Mellitus. ADA recommended reference range Performed By: #### P TT #### [address] Potassium [Moles/Vol] 4.0 mmol/L Normal 3.5-5.1 [facility] Comment on above: Performed By: #### P TT #### [place] [address] [place] Sodium [Moles/Vol] 131 mmol/L Low 136-146 [facility] Comment on above: Performed By: #### P TT #### [address] Urea nitrogen [Mass/Vol] 9 mg/dL Normal 9-23 [facility] Comment on above: Performed By: #### P TT #### [address] [place] [address] [place] ECG 12 lead ECGon 01-13-2022 ECG 12 lead ECG [facility] [place] [address] [place] [address] Electrocardiograph Report Signed Patient: Javier Rosa MR#: [id number] 89 : 1970 Acct:[id number] Age/Sex: 51 / F ADM Date: 01/10/22 Loc: Room: [address] [place] [address] Type: DIS IN Attending Dr: Isidra Lagunas DO Ordering Provider: Isidra Lagunas DO Date of Service: 01/13/2210/05/499 ECG/ECG 12 lead ECG: Anterolateral STEMI Copies to: Test Reason : Blood Pressure : / mmHG Vent. Rate : 072 BPM Atrial Rate : 072 BPM P-R Int : 132 ms QRS Dur : 076 ms QT Int : 444 ms P-R-T Axes : 058 095 100 degrees QTc Int : 486 ms Normal sinus rhythm Low voltage QRS Possible Inferior infarct (cited on or before 11-JAN-2022) Anterolateral infarct (cited on or before 11-JAN-2022) Abnormal ECG When compared with ECG of 12-JAN-2022 07:23, Serial changes of Anterolateral infarct Confirmed by LENNY JOSEPH DO ([id number]) on 01/13/2022 10:44:47 PM Referred By: Electronically Signed By:LENNY JOSEPH DO Transcribed By: MUS Signed By Lenny Joseph DO 01/13 2244 Normal [facility] Partial Thromboplastin Timeo n 01-13-2022 aPTT Coag (Bld) [Time] 35.9 s Normal 25.1-36.5 [facility] Comment on above: Result Comment: PERF ORMED BY: [place] [address] PATHOLOGIST AUTOMATIC SPINNING LATHE SETTER QUINN MAGALLON M.D. Performed By: #### P T #### [facility] [address] [place], [place] [id number] [facility] aPTT Coag (Bld) [Time] 54.7 s High 25.1-36.5 [facility] Comment on above: Result Comment: PERF ORMED BY: [address] [place] [address] PATHOLOGIST AUTOMATIC SPINNING LATHE SETTER QUINN MAGALLON M.D. Performed By: #### B MP #### [facility] [address] [place] [address] aPTT Coag (Bld) [Time] 80.7 s High 25.1-36.5 [facility] Comment on above: Result Comment: PERF ORMED BY: [address] [place] [address] PATHOLOGIST AUTOMATIC SPINNING LATHE SETTER QUINN MAGALLON M.D. Performed By: #### P T #### [facility] [address] [place] [address] Prothrombin Time INRon 01-13 INR Coag (PPP) [Relative time] 1.4 {INR} Normal [facility] Comment on above: Result Comment: INR Therapeutic Range A) Pre- and Peroperative OAT started two weeks before surgery. NOT HIP SURGERY: 1.5 - 2.5 HIP SURGERY: 2 - 3 B) Primary and secondary prevention of venous THROMBOSIS: 2 - 3 C) Active venous thrombosis, pulmonary embolism and prevention of recurrent venous thrombosis: 2 - 3 D) Prevention of arterial thromboembolism including patients with mechanical heart valves: 3 - 4.5 Performed By: #### P T #### [facility] [address] [place] [address] PT Coag (PPP) [Time] 15.3 s High 9.0-12.9 [facility] Comment on above: Performed By: #### P T #### [facility] [address] [place] [address] Basic Metabolic Panelon 0 Calcium [Mass/Vol] 8.4 mg/dL Normal 8.2-10.2 [facility] Comment on above: Performed By: #### P T #### [address] Chloride [Moles/Vol] 99 mmol/L Normal 95-114 [facility] Comment on above: Performed By: #### P T #### [facility] [address] CO2 [Moles/Vol] 22.6 mmol/L Normal 22.0-30.0 [facility] Comment on above: Performed By: #### P T #### [facility] [address] Creatinine [Mass/Vol] 0.58 mg/dL Normal 0.44-1.03 [facility] Comment on above: Performed By: #### P T #### [address] Creatinine Clr Calc Pharmacy 111.20 [facility] Comment on above: Result Comment: PERF ORMED BY: [place] [address] PATHOLOGIST AUTOMATIC SPINNING LATHE [employer]TER QUINN MAGALLON M.D. Performed By: #### P T #### [address] Estimated GFR ( Renea > 60 [facility] Comment on above: Result Comment: GFR estimated reference range: According to KDOQI guidelines, <60 ml/min/1.73m2 is sufficient to diagnose a patient with chronic kidney disease. Performed By: #### P T #### [address] Estimated GFR (Non- Am > 60 [facility] Comment on above: Performed By: #### P T #### [address] Glucose [Mass/Vol] 115 mg/dL High 70-100 [facility] Comment on above: Result Comment: [place] om Glucose Reference Range is dependent on time and content of last meal. Glucose of more than 200 mg/dL in a nonstressed, ambulatory subject supports the diagnosis of Diabetes Mellitus. ADA recommended reference range Performed By: #### P T #### [address] Potassium [Moles/Vol] 3.3 mmol/L Low 3.5-5.1 [facility] Comment on above: Performed By: #### P T #### [facility] [address] Sodium [Moles/Vol] 131 mmol/L Low 136-146 [facility] Comment on above: Performed By: #### P T #### [facility] [address] [place] [id number] [facility] Urea nitrogen [Mass/Vol] 5 mg/dL Low 9-23 [facility] Comment on above: Performed By: #### P T #### [facility] [address] Coagulation Profileon 2021 aPTT Coag (Bld) [Time] 51.3 s High 25.1-36.5 [facility] Comment on above: Result Comment: PERF ORMED BY: [place] [address] PATHOLOGIST AUTOMATIC SPINNING [employer]HE [employer]TER QUINN MAGALLON M.D. Performed By: #### P T #### [facility] [address] INR Coag (PPP) [Relative time] 1.2 {INR} Normal [facility] Comment on above: Result Comment: INR Therapeutic Range A) Pre- and Peroperative OAT started two weeks before surgery. NOT HIP SURGERY: 1.5 - 2.5 HIP SURGERY: 2 - 3 B) Primary and secondary prevention of venous THROMBOSIS: 2 - 3 C) Active venous thrombosis, pulmonary embolism and prevention of recurrent venous thrombosis: 2 - 3 D) Prevention of arterial thromboembolism including patients with mechanical heart valves: 3 - 4.5 Performed By: #### P T #### [facility] [address] PT Coag (PPP) [Time] 13.6 s High 9.0-12.9 [facility] Comment on above: Performed By: #### P T #### [facility] [address] [place] [address] [facility] ECG 12 lead ECGon 01-12-2022 ECG 12 lead ECG [facility] [place] [address] [place] [address] Electrocardiograph Report Signed Patient: Javier Rosa MR#: [id number] [birth year] : 1970 Acct:[id number] Age/Sex: 51 / F ADM Date: 01/10/22 Loc: Room: [address] [place] [address] Type: DIS IN Attending Dr: Isidra Lagunas DO Ordering Provider: Isidra Lagunas DO Date of Service: 01/12/2209/04/499 ECG/ECG 12 lead ECG: Anterolateral STEMI Copies to: Test Reason : Blood Pressure : / mmHG Vent. Rate : 074 BPM Atrial Rate : 074 BPM P-R Int : 130 ms QRS Dur : 072 ms QT Int : 426 ms P-R-T Axes : 061 127 153 degrees QTc Int : 472 ms Normal sinus rhythm Low voltage QRS Anterolateral infarct (cited on or before 11-JAN-2022) Abnormal ECG When compared with ECG of 11-JAN-2022 07:44, Serial changes of Anterior infarct present Confirmed by LENNY JOSEPH DO ([id number]) on 01/12/2022 6:43:00 PM Referred By: Electronically Signed By:LENNY JOSEPH DO Transcribed By: MUS Signed By Lenny Joseph DO 01/12 1843 Normal [facility] Glucose Poct Glucometerson 0 01-12-2022 Glucose [Mass/Vol] 118 mg/dL Normal [facility] Comment on above: Result Comment: [place] Glucose Reference Range is dependent on time and content of last meal. Glucose of more than 200 mg/dL in a nonstressed, ambulatory subject supports the diagnosis of Diabetes Mellitus. PERFORMED BY: [facility] [address] [place] [address] PATHOLOGIST [employer]TER QUINN MAGALLON M.D. Performed By: #### G LUINDRA #### Point of Care testing , Partial Thromboplastin Timeo n 01-12-2022 aPTT Coag (Bld) [Time] 53.0 s High 25.1-36.5 [facility] Comment on above: Order Comment: Quant ity not sufficient. Please resubmit. Result Comment: PERF ORMED BY: [facility] [address] [place] [address] PATHOLOGIST [employer]TER QUINN MAGALLON M.D. Performed By: #### P T #### [address] aPTT Coag (Bld) [Time] 44.2 s High 25.1-36.5 [facility] Comment on above: Result Comment: PERF ORMED BY: [place] [address] PATHOLOGIST [employer]IN[employer] LATHE SETTER QUINN MAGALLON M.D. Performed By: #### P T #### [address] aPTT Coag (Bld) [Time] 44.5 s High 25.1-36.5 [facility] Comment on above: Result Comment: PERF ORMED BY: [place] [address] PATHOLOGIST [employer]HE [employer]TER QUINN MAGALLON M.D. Performed By: #### P TT #### [address] Prothrombin Time INRon 01-12 INR Coag (PPP) [Relative time] 1.2 {INR} Normal [facility] Comment on above: Result Comment: INR Therapeutic Range A) Pre- and Peroperative OAT started two weeks before surgery. NOT HIP SURGERY: 1.5 - 2.5 HIP SURGERY: 2 - 3 B) Primary and secondary prevention of venous THROMBOSIS: 2 - 3 C) Active venous thrombosis, pulmonary embolism and prevention of recurrent venous thrombosis: 2 - 3 D) Prevention of arterial thromboembolism including patients with mechanical heart valves: 3 - 4.5 PERFORMED BY: [place] [address] PATHOLOGIST [employer] LATHE [employer]TER QUINN MAGALLON M.D. Performed By: #### P T #### [address] PT Coag (PPP) [Time] 13.9 s High 9.0-12.9 [facility] Comment on above: Performed By: #### P T #### [facility] [address] [place] [address] [place] INR Coag (PPP) [Relative time] 1.2 {INR} Normal [facility] Comment on above: Order Comment: List the anticoagulant: HEPARIN/COUMADIN Result Comment: INR Therapeutic Range A) Pre- and Peroperative OAT started two weeks before surgery. NOT HIP SURGERY: 1.5 - 2.5 HIP SURGERY: 2 - 3 B) Primary and secondary prevention of venous THROMBOSIS: 2 - 3 C) Active venous thrombosis, pulmonary embolism and prevention of recurrent venous thrombosis: 2 - 3 D) Prevention of arterial thromboembolism including patients with mechanical heart valves: 3 - 4.5 PERFORMED BY: [place] [address] PATHOLOGIST [employer]IN[employer] LAT[employer]TER QUINN MAGALLON M.D. Performed By: #### P T #### [facility] [address] [place] [address] PT Coag (PPP) [Time] 13.4 s High 9.0-12.9 [facility] Comment on above: Order Comment: List the anticoagulant: HEPARIN/COUMADIN Performed By: #### P T #### [facility] [address] [place] [address] Albumin [Mass/volume] in Ser um or PlasmaOrdered By: Isidra Lagunas on 01-11-2022 Albumin [Mass/Vol] 2.9 g/dL 3.2-5.5 [facility] Cholesterol [Mass/volume] in Serum or PlasmaOrdered By: Isidra Lagunas on 01-11-2022 Cholesterol [Mass/Vol] 109 mg/dL 140-200 [facility] Comment on above: Chol less than 200 m g/dl low risk Chol 201-239 mg/dl borderline risk Chol 240 mg/dl and greater high risk Cholesterol in LDL Calc [Mas s/Vol]Ordered By: Isidra Lagunas on 01-11-2022 Cholesterol in LDL [Mass/Vol] 49 mg/dL 0-100 [facility] Comment on above: LDL ATP III CLASSIFI CATION LDL less than 100 mg/dL Optimal LDL 100-129 mg/dL Near or above optimal LDL 130-159 mg/dL Borderline high LDL 160-189 mg/dL High LDL greater than 189 mg/dL Very high Cholesterol in VLDL Calc [Ma ss/Vol]Ordered By: Isidra Lagunas on 01-11-2022 Cholesterol in VLDL [Mass/Vol] 16 mg/dL [facility] Comprehensive Metabolic Pane gaurav 01-11-2022 Albumin [Mass/Vol] 2.9 g/dL Low 3.2-5.5 [facility] Comment on above: Performed By: #### B MP #### [facility] [address] Albumin/Globulin [Mass ratio] 0.9 {ratio} Normal [facility] Comment on above: Performed By: #### B MP #### [facility] [address] ALP [Catalytic activity/Vol] 85 U/L Normal 32-92 [facility] Comment on above: Performed By: #### B MP #### [facility] [address] [place] [id number] [facility] ALT [Catalytic activity/Vol] 58 U/L Normal 10-60 [facility] Comment on above: Performed By: #### B MP #### [facility] [address] [place] [address] [place] AST [Catalytic activity/Vol] 212 U/L High 10-42 [facility] Comment on above: Performed By: #### B MP #### [facility] [address] [place] [id number] [facility] Bilirubin [Mass/Vol] 0.6 mg/dL Normal 0.3-1.2 [facility] Comment on above: Performed By: #### B MP #### [facility] [address] [place] [address] [place] Calcium [Mass/Vol] 8.3 mg/dL Normal 8.2-10.2 [facility] Comment on above: Performed By: #### B MP #### [facility] [address] [place] [address] [place] Chloride [Moles/Vol] 96 mmol/L Normal 95-114 [facility] Comment on above: Performed By: #### B MP #### [facility] [address] CO2 [Moles/Vol] 18.5 mmol/L Low 22.0-30.0 [facility] Comment on above: Performed By: #### B MP #### [address] Creatinine [Mass/Vol] 0.69 mg/dL Normal 0.44-1.03 [facility] Comment on above: Performed By: #### B MP #### [address] Creatinine Clr Calc Pharmacy 93.47 [facility] Comment on above: Performed By: #### B MP #### [address] Estimated GFR ( Renea > 60 [facility] Comment on above: Result Comment: GFR estimated reference range: According to KDOQI guidelines, <60 ml/min/1.73m2 is sufficient to diagnose a patient with chronic kidney disease. Performed By: #### B MP #### [address] Estimated GFR (Non- Am > 60 [facility] Comment on above: Performed By: #### B MP #### [address] Globulin (S) [Mass/Vol] 3.1 g/dL [facility] Comment on above: Performed By: #### B MP #### [address] Glucose [Mass/Vol] 131 mg/dL High 70-100 [facility] Comment on above: Result Comment: [place] om Glucose Reference Range is dependent on time and content of last meal. Glucose of more than 200 mg/dL in a nonstressed, ambulatory subject supports the diagnosis of Diabetes Mellitus. ADA recommended reference range Performed By: #### B MP #### [address] Potassium [Moles/Vol] 3.4 mmol/L Low 3.5-5.1 [facility] Comment on above: Performed By: #### B MP #### [facility] [address] [place] [address] [facility] Protein [Mass/Vol] 6.0 g/dL Low 6.1-7.9 [facility] Comment on above: Performed By: #### B MP #### [facility] [address] [place] [address] [facility] Sodium [Moles/Vol] 125 mmol/L Low 136-146 [facility] Comment on above: Performed By: #### B MP #### [facility] [address] [place], [place] [address] Urea nitrogen [Mass/Vol] 7 mg/dL Low 9-23 [facility] Comment on above: Performed By: #### B MP #### [facility] [address] [place] [id number] [facility] ECG 12 lead ECGon 01-11-2022 ECG 12 lead ECG [facility] Main [place] [address] [place] [address] Electrocardiograph Report Signed Patient: Javier Rosa MR#: [id number] 89 : 1970 Acct:[id number] Age/Sex: 51 / F ADM Date: 01/10/22 Loc: Room: [address] [place] [address] Type: DIS IN Attending Dr: Isidra Lagunas DO Ordering Provider: Isidra Lagunas DO Date of Service: 01/11/22 ECG/ECG 12 lead ECG: Anterolateral STEMI Copies to: Test Reason : Blood Pressure : / mmHG Vent. Rate : 078 BPM Atrial Rate : 078 BPM P-R Int : 138 ms QRS Dur : 078 ms QT Int : 392 ms P-R-T Axes : 066 138 095 degrees QTc Int : 446 ms Normal sinus rhythm Low voltage QRS Inferior infarct (cited on or before 11-JAN-2022) Anterolateral infarct (cited on or before 11-JAN-2022) Abnormal ECG When compared with ECG of 10-JAN-2022 12:55, Serial changes of evolving Anterior infarct present Serial changes of evolving Anterolateral infarct present Confirmed by LENNY JOSEPH DO ([id number]) on 01/11/2022 6:50:56 PM Referred By: Electronically Signed By:LENNY JOSEPH DO Transcribed By: MUS Signed By Lenny Joseph DO 01/[address] [facility] echo transthoracicon [facility] echo transthoracic [facility] Main [place] [address] [place], [place] [id number] Echocardiogram Signed Patient: Javier Rosa MR#: [id number] [birth year] : 1970 Acct:[id number] Age/Sex: 51 / F ADM Date: 01/10/22 Loc: Room: [address] [place] [address] Type: DIS IN Attending Dr: Isidra Lagunas DO Ordering Provider: Isidra Lagunas DO Date of Service: 01/11/22 [facility] echo transthoracic: Anterolateral STEMI Copies to: DO Nolan Hyde MD BSA: 1.8 m2 BP: 129/86 mmHg HR: 72 Reason For Study: Anterolateral STEMI History: HTN, Hyperlipidemia Interpretation Summary The left ventricular size and thickness are normal. Ejection Fraction = 30-35%. There is left ventricular diastolic dysfunction. Distal 2/3 of anterior wall and septum akinetic. Distal third of inferior wall akinetic Moderate sized apical thrombus. Mild to moderate valvular aortic stenosis. There is trace mitral regurgitation. There is trace tricuspid regurgitation. Procedure/Quality: A two-dimensional transthoracic echocardiogram with color flow, Doppler and injection of contrast agent Definity was performed. The study was technically good in quality. Left Ventricle: The left ventricular size and thickness are normal. Ejection Fraction = 30-35%. There is left ventricular diastolic dysfunction. Distal 2/3 of anterior wall and septum akinetic. Distal third of inferior wall akinetic. Moderate sized apical thrombus. Left Atrium: The left atrium appears normal in size. The atrial septum appears normal. Right Atrium: The right atrium appears normal in size. Right Ventricle: The right ventricular size, thickness and function are normal. Aortic Valve: The aortic valve is mildly calcified. Mild to moderate valvular aortic stenosis. Mitral Valve: The mitral valve is mildly sclerotic. There is trace mitral regurgitation. Tricuspid Valve: The tricuspid valve is normal. There is trace tricuspid regurgitation. Pulmonic Valve: The pulmonic valve is not well visualized. Arteries: The aortic root is normal size. The aortic arch was visualized and no abnormalities were seen. Pericardium/Pleura: No pericardial effusion seen. There is no pleural effusion. IVC/Hepatic Viens: The inferior vena cava is normal in size, with a normal collapsibility index. Measurements with Normals IVSd: 0.86 cm (0.7-1.1 cm)LVIDd: 4.6 cm (3.7-5.4 cm) LVPWd: 0.81 cm (0.7-1.1 cm)LVIDs: 3.8 cm (2.3-3.6 cm) LA dimension: 3.4 cm(2.3-4.0 cm)Ao root diam: 2.9 cm(2.0-3.6 cm) Doppler with Normals RVSP(TR): 49.7 mmHg (18-35mmHg) LV V1 max: 83.1 cm/sec (0.7-1.7m/s)MV E max pete: 73.7 cm/sec(0.8-1.3m/s) MV A max pete: 107.1 cm/sec(0.0-0.0m/s) MV E/A: 0.69 (<1.5) MMode/2D Measurements Calculations RVDd: 2.6 cm FS: 17.6 % Ao root area: LVOT diam: 1.9 cm TAPSE: 1.7 cm EDV(Teich): 6.7 cm2 LVOT area: 2.8 cm2 RV S Pete: 95.8 ml 21.0 cm/sec ESV(Teich): 60.6 ml EF(Teich): 36.8 % __ LVLd ap4: 8.2 cm SV(MOD-sp4): LAV(MOD-sp4): LA A2 area: 14.1 cm2 EDV(MOD-sp4): 39.3 ml 26.2 ml 129.1 ml LAV(MOD-sp2): LA A4 area: 11.5 cm2 LVLs ap4: 7.7 cm 37.4 ml LA length (vol): ESV(MOD-sp4): 4.1 cm 89.8 ml LA vol: 33.7 ml EF(MOD-sp4): 30.4 % LA vol index: 19.2 ml/m2 Doppler Measurements Calculations MV dec time: MV max PG: E/E' lat: 10.4 MV dec slope: 0.21 sec 47.0 mmHg E/E' med: 12.1 348.8 cm/sec2 __ Ao V2 max: LV V1 max PG: MR max pete: TV max P.0 mmHg 224.7 cm/sec 2.8 mmHg 341.2 cm/sec Ao max PG: LV V1 mean PG: MR max P.2 mmHg 1.6 mmHg 46.6 mmHg Ao mean PG: LV V1 mean: 10.5 mmHg 59.6 cm/sec Ao V2 mean: LV V1 VTI: 17.6 cm 155.5 cm/sec Ao V2 VTI: 46.5 cm LANDY(I,D): 1.1 cm2 LANDY(V,D): 1.0 cm2 __ TR max pete: 334.1 cm/sec TR max P.7 mmHg RAP systole: 5.0 mmHg Transcribed By: SCV Performed At: 01/11/22 1138 Signed By: Nolan Sellers MD 01/11/22 1316 [facility] Globulin Calc (S) [Mass/Vol] Ordered By: Isidra Lagunas on 01-11-2022 Globulin (S) [Mass/Vol] 3.1 g/dL [facility] Glucose Glucometer (BldC) [M ass/Vol]Ordered By: Isidra Lagunas on 01-11-2022 Glucose [Mass/Vol] 118 mg/dL [facility] Comment on above: Random Glucose Refer ence Range is dependent on time and content of last meal. Glucose of more than 200 mg/dL in a nonstressed, ambulatory subject supports the diagnosis of Diabetes Mellitus. Glucose Poct Glucometerson 0 01-11-2022 Commemt1 Glu2: Cleaned Meter Normal [facility] Comment on above: Result Comment: PERF ORMED BY: [place] [address] PATHOLOGIST AUTOMAT[employer]IN[employer]HE [employer]TER QUINN MAGALLON M.D. Performed By: #### B MP #### [address] Glucose [Mass/Vol] 135 mg/dL Normal [facility] Comment on above: Result Comment: [place] om Glucose Reference Range is dependent on time and content of last meal. Glucose of more than 200 mg/dL in a nonstressed, ambulatory subject supports the diagnosis of Diabetes Mellitus. Performed By: #### B MP #### [address] Glucose [Mass/Vol] 128 mg/dL Normal [facility] Comment on above: Result Comment: [place] om Glucose Reference Range is dependent on time and content of last meal. Glucose of more than 200 mg/dL in a nonstressed, ambulatory subject supports the diagnosis of Diabetes Mellitus. PERFORMED BY: [place] [address] PATHOLOGIST AUTOM[employer]HE [employer]TER QUINN MAGALLON M.D. Performed By: #### B MP #### [address] Glucose [Mass/Vol] 126 mg/dL Normal [facility] Comment on above: Result Comment: [place] om Glucose Reference Range is dependent on time and content of last meal. Glucose of more than 200 mg/dL in a nonstressed, ambulatory subject supports the diagnosis of Diabetes Mellitus. PERFORMED BY: [place] [address] PATHOLOGIST AUTOM[employer]HE [employer]TER QUINN MAGALLON M.D. Performed By: #### P TT #### [address] Lipid Panelon 01-11-2022 Cholesterol [Mass/Vol] 109 mg/dL Low 140-200 [facility] Comment on above: Result Comment: Chol less than 200 mg/dl low risk Chol 201-239 mg/dl borderline risk Chol 240 mg/dl and greater high risk Performed By: #### B MP #### [address] Cholesterol in HDL [Mass/Vol] 43 mg/dL Normal 35-85 [facility] Comment on above: Result Comment: HDL CHOL ATP-III CLASSIFICATION Cardiovascular Risk HDL > or equal to 60 mg/dL LOW HDL < 40 mg/dL HIGH Performed By: #### B MP #### [address] Cholesterol.total/Chol esterol in HDL [Mass ratio] 2.5 {ratio} Normal <5.0 [facility] Comment on above: Result Comment: PERF ORMED BY: [place] [address] PATHOLOGIST AUT[employer]TER QUINN MAGALLON M.D. Performed By: #### B MP #### [address] LDL Cholesterol,Calculated 49 mg/dL Normal 0-100 [facility] Comment on above: Result Comment: LDL ATP III CLASSIFICATION LDL less than 100 mg/dL Optimal LDL 100-129 mg/dL Near or above optimal LDL 130-159 mg/dL Borderline high LDL 160-189 mg/dL High LDL greater than 189 mg/dL Very high Performed By: #### B MP #### [address] Triglyceride w/Reflex 83 mg/dL Normal 35-149 [facility] Comment on above: Result Comment: TRIG ATP III CLASSIFICATION TRIG less than 150 mg/dL Normal TRIG 150-199 mg/dL Borderline high TRIG 200-500 mg/dL High TRIG greater than 500 mg/dL Very high Standard traceable to the Center for Disease Conrtrol and Prevention (CDC) test method. Performed By: #### B MP #### [address] VLDL CHOLESTEROL 16 mg/dL Normal [facility] Comment on above: Performed By: #### B MP #### [address] No Panel InformationOrdered By: Isidra Lagunas on 01-11-2022 Bedside Glucose Comment Glu2: cleaned meter [facility] Partial Thromboplastin Timeo n 01-11-2022 aPTT Coag (Bld) [Time] 43.1 s High 25.1-36.5 [facility] Comment on above: Result Comment: PERF ORMED BY: [place] [address] PATHOLOGIST AUTOM[employer]TER QUINN MAGALLON M.D. Performed By: #### P TT #### [facility] [address] [place] [address] [facility] aPTT Coag (Bld) [Time] 41.3 s High 25.1-36.5 [facility] Comment on above: Result Comment: PERF ORMED BY: [address] [address] PATHOLOGIST AUTOM[employer]HE [employer]TER QUINN MAGALLON M.D. Performed By: #### P TT #### [facility] [address] [place], [place] [address] [facility] aPTT Coag (Bld) [Time] 53.9 s High 25.1-36.5 [facility] Comment on above: Result Comment: PERF ORMED BY: [place] [address] PATHOLOGIST AUTOMAT[employer]HE [employer]TER QUINN MAGALLON M.D. Performed By: #### P TT #### [facility] [address] [place], [place] [address] [place] Protein [Mass/volume] in Ser um or PlasmaOrdered By: Isidra Lagunas on 01-11-2022 Protein [Mass/Vol] 6.0 g/dL 6.1-7.9 [facility] Prothrombin Time INRon 01-11 INR Coag (PPP) [Relative time] 1.1 {INR} Normal [facility] Comment on above: Result Comment: INR Therapeutic Range A) Pre- and Peroperative OAT started two weeks before surgery. NOT HIP SURGERY: 1.5 - 2.5 HIP SURGERY: 2 - 3 B) Primary and secondary prevention of venous THROMBOSIS: 2 - 3 C) Active venous thrombosis, pulmonary embolism and prevention of recurrent venous thrombosis: 2 - 3 D) Prevention of arterial thromboembolism including patients with mechanical heart valves: 3 - 4.5 PERFORMED BY: [place] [address] PATHOLOGIST AUTOM[employer]TER QUINN MAGALLON M.D. Performed By: #### B MP #### [facility] [address] [place] [address] PT Coag (PPP) [Time] 12.3 s Normal 9.0-12.9 [facility] Comment on above: Performed By: #### B MP #### [facility] [address] [place] [address] Serum or plasma alanine gore otransferase measurement without P-5'-P (enzymatic activiOrdered By: Isidra Lagunas on 01-11-2022 ALT No additional P-5'-P [Catalytic activity/Vol] 58 U/L 1060 [facility] Serum or plasma albumin/glob ulin mass ratioOrdered By: Isidra Lagunas on 01-11-2022 Albumin/Globulin [Mass ratio] 0.9 {ratio} [facility] Serum or plasma alkaline carl sphatase measurement (enzymatic activity/volume)Ordered By: Isidra Lagunas on 01-11-2022 ALP [Catalytic activity/Vol] 85 U/L 32-92 [facility] Serum or plasma aspartate am inotransferase measurement (enzymatic activity/volume)Ordered By: Isidra Lagunas on 01-11-2022 AST [Catalytic activity/Vol] 212 U/L 10-42 [facility] Serum or plasma high density lipoprotein (HDL) cholesterol measurementOrdered By: Isidra Lagunas on 01-11-2022 Cholesterol in HDL [Mass/Vol] 43 mg/dL 35-85 [facility] Comment on above: HDL CHOL ATP-III CLA SSIFICATION Cardiovascular Risk HDL > or equal to 60 mg/dL LOW HDL < 40 mg/dL HIGH Serum or plasma total biliru bin measurement (mass/volume)Ordered By: Isidra Lagunas on 01-11-2022 Bilirubin [Mass/Vol] 0.6 mg/dL 0.3-1.2 [facility] Serum or plasma total choles terol/high density lipoprotein (HDL) cholesterol mass ratOrdered By: Isidra Lagunas on 01-11-2022 Cholesterol.total/Chol esterol in HDL [Mass ratio] 2.5 {ratio} [facility] Triglyceride [Mass/volume] i n Serum or PlasmaOrdered By: Isidra Lagunas on 01-11-2022 Triglyceride [Mass/Vol] 83 mg/dL 35-149 [facility] Comment on above: TRIG ATP III CLASSIF ICATION TRIG less than 150 mg/dL Normal TRIG 150-199 mg/dL Borderline high TRIG 200-500 mg/dL High TRIG greater than 500 mg/dL Very high Standard traceable to the Center for Disease Conrtrol and Prevention (CDC) test method. Troponin I High Sensitivityo n 01-11-2022 Troponin I High Sensitivity 51319 pg/mL Off scale high 015 [facility] Comment on above: Result Comment: Resu lts called at 0805 on 01/11/22 PERFORMED BY: [place] [address] PATHOLOGIST [employer]TER QUINN MAGALLON M.D. Performed By: #### B MP #### [facility] [address] [place] [address] Troponin I High Sensitivity 179101 pg/mL Off scale high [address] [place] [address] Comment on above: Order Comment: iván hart rn kevin Result Comment: Resu lts called at 0040 on 01/11/22 PERFORMED BY: [place] [address] PATHOLOGIST [employer]TER QUINN MAGALLON M.D. Performed By: #### P TT #### [facility] [address] [place] [address] Troponin I.cardiac [Mass/vol ume] in Serum or Plasma by High sensitivity methodOrdered By: Isidra Lagunas on 01-11-2022 Troponin I.cardiac High sensitivity method [Mass/Vol] 73276 pg/mL 15 [facility] Comment on above: Results called at 0805 on 01/11/22 XR chest 1V portableon 01-11 XR chest 1V portable [facility] [place] [address] XRay Report Signed Patient: Javier Rosa MR#: [id number] 89 : 1970 Acct:[id number] Age/Sex: 51 / F ADM Date: 01/10/22 Loc: Room: [address] [place] [address] Type: ADM IN Attending Dr: Isidra Lagunsa DO Ordering Provider: Isidra Lagunas DO Date of Service: 01/11/22 XR/XR chest 1V portable: Intra-aortic balloon pump, anterior STEMI, CHF Copies to: Isidra Lagunas DO XR chest 1V portable 01/10/2022 1:00 PM SIGNS AND SYMPTOMS: Respiratory failure, Intra-aortic balloon pump, anterior STEMI, CHF PROTOCOL: Frontal radiograph of the chest COMPARISON: None FINDINGS: The trachea is midline. A marker for an aortic balloon pump is noted in the expected location of the proximal descending aorta. The heart and mediastinal structures are within normal limits. There is interstitial prominence with perihilar vascular prominence. The bony thorax is intact. XR/XR chest 1V portable IMPRESSION: A marker for an aortic balloon pump is noted in the expected location of the proximal descending aorta. There is interstitial prominence with perihilar vascular prominence. Impression dictated by: Chastity Humphreys M.D.01/11/2022 8:19 AM Dictation Location: [place] [address] Transcribed By: [facility] 01/11/22818 Dictated By: Chastity Humphreys II, MD 01/11/22813 Signed By: 01/11/22818 [facility] AMYLASEon 01-10-2022 Amylase [Catalytic activity/Vol] 37 U/L Normal 25-115 [facility] Comment on above: Performed By: #### C BC #### [facility] [address] [address] [address] Vangie Devine Basic Metabolic Panelon 12-14 Calcium [Mass/Vol] 8.7 mg/dL Normal 8.2-10.2 [facility] Comment on above: Performed By: #### P TT #### [facility] [address] [place] [id number] [place] Chloride [Moles/Vol] 99 mmol/L Normal 95-114 [facility] Comment on above: Performed By: #### P TT #### [address] CO2 [Moles/Vol] 20.2 mmol/L Low 22.0-30.0 [facility] Comment on above: Performed By: #### P TT #### [address] Creatinine [Mass/Vol] 0.72 mg/dL Normal 0.44-1.03 [facility] Comment on above: Performed By: #### P TT #### [address] Creatinine Clr Calc Pharmacy 90.46 [facility] Comment on above: Performed By: #### P TT #### [address] Estimated GFR ( Renea > 60 [facility] Comment on above: Result Comment: GFR estimated reference range: According to KDOQI guidelines, <60 ml/min/1.73m2 is sufficient to diagnose a patient with chronic kidney disease. Performed By: #### P TT #### [address] Estimated GFR (Non- Am > 60 [facility] Comment on above: Performed By: #### P TT #### [address] Glucose [Mass/Vol] 137 mg/dL High 70-100 [facility] Comment on above: Result Comment: [place] Glucose Reference Range is dependent on time and content of last meal. Glucose of more than 200 mg/dL in a nonstressed, ambulatory subject supports the diagnosis of Diabetes Mellitus. ADA recommended reference range Performed By: #### P TT #### [address] Potassium [Moles/Vol] 3.8 mmol/L Normal 3.5-5.1 [facility] Comment on above: Performed By: #### P TT #### [address] [place] [address] [place] Sodium [Moles/Vol] 130 mmol/L Low 136-146 [facility] Comment on above: Performed By: #### P TT #### [facility] [address] [place] [id number] [facility] Urea nitrogen [Mass/Vol] 9 mg/dL Normal 9-23 [facility] Comment on above: Performed By: #### P TT #### [facility] [address] CARDIAC CHASTITY ADMITon 022 CK [Catalytic activity/Vol] 206 U/L Critically high 26-192 [facility] Comment on above: Performed By: #### C BC #### [facility] [address] [address] [address] Vangie Devine CK.MB [Mass/Vol] 3.65 ng/mL Critically high <=3.60 [facility] Comment on above: Performed By: #### C BC #### [facility] [address] [address] [address] Vangie Devine HSTROP 80.4 pg/mL Critically high 4.0-51.3 [facility] Comment on above: Result Comment: CUT- OFF POINTS HAVE BEEN ESTABLISHED BASED ON THE FOURTH UNIVERSAL DEFINITIONS OF MYOCARDIAL INFARCTION. THE UPPER REFERENCE LIMIT (URL) OF TROPONIN, DEFINED THE 99TH PERCENTILE OF cTnI DISTRIBUTION IN A REFERENCE POPULATION, HAS BEEN CONFIRMED THE DECISION THRESHOLD FOR MS DIAGNOSIS. Performed By: #### C BC #### [facility] [address] [address] [address] Vangie Devine AJ 119 ng/mL Critically high 9-82 [facility] Comment on above: Performed By: #### C BC #### [facility] [address] [address] [address] Vangie Devine CBC W MANUAL DIFFon 01-11-20 22 ATYPICAL LYMPH # 0.93 103/ul Normal [facility] Comment on above: Performed By: #### C BCMAN #### [facility] [address] [address] [address] Vangie Devine ATYPICAL LYMPH % 3 % Normal [facility] Comment on above: Performed By: #### C BCMAN #### [facility] [address] [address] [address] Vangie Devine BAND # 1.6 103/ul Critically high 0.0-0.3 [facility] Comment on above: Performed By: #### C BCMAN #### [facility] [address] [place] [address] Dr. Vangie Devine BAND % 5 % Normal 0-5 [facility] Comment on above: Performed By: #### C BCMAN #### [facility] [address] [place] [address] Dr. Vangie Devine BASOM # 0.00 103/ul Normal 0.00-0.10 [facility] Comment on above: Performed By: #### C BCMAN #### [facility] [address] [place] [address] Dr. Vangie Devine BASOM % 0.0 % Critically low 0.2-2.0 [facility] Comment on above: Performed By: #### C BCHERIBERTO #### [facility] [address] [place] [address] Dr. Vangie Devine BLAST # 0.0 103/ul Normal [facility] Comment on above: Performed By: #### C BCMAN #### [facility] [address] [place] [address] Dr. Vangie Devine BLAST % Normal [facility] Comment on above: Performed By: #### C BCMAN #### [facility] [address] [place] [address] Dr. Vangie Devine CORRECTED WBC Normal 4.0-11.0 [facility] Comment on above: Performed By: #### C BCMAN #### [facility] [address] [place] [address] Dr. Vangie Devine EOS # 0.00 103/ul Normal 0.00-0.70 [facility] Comment on above: Performed By: #### C BCMAN #### [facility] [address] [place] [address] Dr. Vangie Devine EOS% 0.0 % Critically low 0.9-7.0 [facility] Comment on above: Performed By: #### C JOBY #### [facility] [address] [place] [address] Dr. Vangie Devine HCT 42.0 % Normal 36.0-48.0 [facility] Comment on above: Performed By: #### C JOBY #### [facility] [address] [address] [address] Vangie Devine HGB 14.6 g/dl Normal 12.0-16.0 [facility] Comment on above: Performed By: #### C JOBY #### [facility] [address] [place] [address] Dr. Vangie Devine HYPERSEG NEUT 1+ Normal [facility] Comment on above: Performed By: #### C JOBY #### [facility] [address] [place] [address] Dr. Vangie Devine LYMPHM # 4.03 103/ul Critically high 1.20-3.80 [facility] Comment on above: Performed By: #### C JOBY #### [facility] [address] [place] [address] Dr. Vangie Devine LYMPHM% 13.0 % Critically low 20.5-60.0 [facility] Comment on above: Performed By: #### C JOBY #### [facility] [address] [place] [address] Dr. Vangie Devine MCH 32.7 pg Normal 26.7-34.0 [facility] Comment on above: Performed By: #### C JOBY #### [facility] [address] [place] [address] Dr. Vangie Devine MCHC 34.8 g/dl Normal 29.9-35.2 [facility] Comment on above: Performed By: #### C JOBY #### [facility] [address] [place] [address] Dr. Vangie Devine MCV 94.2 fL Normal 81.0-99.0 [facility] Comment on above: Performed By: #### C JOBY #### [facility] [address] [address] [address] Vangie Devine METAMYELOCYTE # 1.2 103/ul Normal [facility] Comment on above: Performed By: #### C JOBY #### [facility] [address] [place] [address] Dr. Vangie Devine METAMYELOCYTE % 4 % Normal [facility] Comment on above: Performed By: #### C JOBY #### [facility] [address] [address] [address] Vangie Devine MONOM# 0.93 103/ul Critically high 0.30-0.80 [facility] Comment on above: Performed By: #### C JOBY #### [facility] [address] [place] [address] Dr. Vangie Devine MONOM% 3.0 % Normal 1.7-12.0 [facility] Comment on above: Performed By: #### C JOBY #### [facility] [address] [place] [address] Dr. Vangie Devine MPV 10.4 fL Normal 9.5-13.5 [facility] Comment on above: Performed By: #### C JOBY #### [facility] [address] [place] [address] Dr. Vangie Devine MYELOCYTE # 0.9 103/ul Normal [facility] Comment on above: Performed By: #### C JOBY #### [facility] [address] [place] [address] Dr. Vangie Devine MYELOCYTE % 3 % Normal [facility] Comment on above: Performed By: #### C JOBY #### [facility] [address] [place] [address] Dr. Vangie Devine NRBC 0 Normal [facility] Comment on above: Performed By: #### C JOBY #### [facility] [address] [place] [address] Dr. Vangie Devine PLT 460 103/ul Critically high 150-450 [facility] Comment on above: Performed By: #### C JOBY #### [facility] [address] [address] [address] Vangie Devine RBC 4.46 106/ul Normal 4.20-5.40 [facility] Comment on above: Performed By: #### Baldemar HEMPHILL #### [facility] [address] [place] [address] Dr. Vangie Devine RDW 12.6 % Normal 11.0-15.0 [facility] Comment on above: Performed By: #### Baldemar HEMPHILL #### [facility] [address] [place] [address] Dr. Vangie Devine SEG # 21.39 103/ul Critically high 1.40-6.50 [facility] Comment on above: Performed By: #### Baldemar HEMPHILL #### [facility] [address] [place] [address] Dr. Vangie Devine SEG % 69.0 % Normal 43.0-75.0 [facility] Comment on above: Performed By: #### Baldemar HEMPHILL #### [facility] [address] [place] [address] Dr. Vangie Devine WBC 31.0 103/ul Critically high 4.0-11.0 [facility] Comment on above: Performed By: #### Baldemar HEMPHILL #### [facility] [address] [place] [address] Dr. Vangie Devine Covid-19 PCR ([facility])on 12-14 SARS-CoV-2 (COVID-19) RNA SAMIR+probe Ql (Unsp spec) Not detected Normal NOT DETECTED [facility] Comment on above: Result Comment: When diagnostic testing is negative, the possibility of a false negative should be considered in the context of a patient's recent exposures and the presence of clinical signs and symptoms consistent with SARS-CoV-2. This test is not yet approved or cleared by the [place] FDA. When there are no FDA-approved or cleared tests available, and other criteria are met, FDA can make tests available under an emergency access mechanism called an Emergency Use Authorization (EUA). The EUA for this test is supported by the [place] of Health and Human Service's declaration that circumstances exist to justify the emergency use of in vitro diagnostics for the detection and/or diagnosis of the virus that causes COVID-19. This EUA will remain in effect for the duration of the COVID-19 declaration justifying emergency of IVDs, unless it is terminated or revoked by the FDA (after which the test may no longer be used). Performed By: #### C [facility] #### [facility] [address] [address] [address] Vangie Devine ECG 12 lead ECGon 01-10-2022 ECG 12 lead ECG [facility] [place] [address] Electrocardiograph Report Signed Patient: Javier Rosa MR#: [id number] : 1970 Acct:[id number] Age/Sex: 51 / F ADM Date: 01/10/22 Loc: Room: [address] [place] [address] Type: DIS IN Attending Dr: Isidra Lagunas DO Ordering Provider: Isidra Lagunas DO Date of Service: 01/10/22 ECG/ECG 12 lead ECG: Post Angioplasty Procedure Copies to: Test Reason : Blood Pressure : / mmHG Vent. Rate : 098 BPM Atrial Rate : 098 BPM P-R Int : 000 ms QRS Dur : 100 ms QT Int : 402 ms P-R-T Axes : 000 126 -34 degrees QTc Int : 513 ms atrial fibrillation with frequent monomorphic PVCs , some occuring in couplets Nonspecific ST and T wave abnormality Inferior leads age indeterminite anterolateral infarct Nonspecific intraventricular conduction delay mild prolongation Qt 460ms Abnormal ECG No previous ECGs available Confirmed by LENNY JOSEPH DO ([id number]) on 01/10/2022 7:47:43 PM Referred By: Electronically Signed By:LENNY JOSEPH DO Transcribed By: MUS Signed By Lenny Joseph DO 01/10 Normal [facility] Glucose Poct Glucometerson 0 01-10-2022 Glucose [Mass/Vol] 148 mg/dL Normal [facility] Comment on above: Result Comment: [place] Glucose Reference Range is dependent on time and content of last meal. Glucose of more than 200 mg/dL in a nonstressed, ambulatory subject supports the diagnosis of Diabetes Mellitus. PERFORMED BY: [place] [id number] PATHOLOGIST AUTOMATIC SPINNING LATHE SETTER QUINN MAGALLON M.D. Performed By: #### P T #### [place] [id number] [facility] Glucose [Mass/Vol] 139 mg/dL Normal [facility] Comment on above: Result Comment: [facility] Glucose Reference Range is dependent on time and content of last meal. Glucose of more than 200 mg/dL in a nonstressed, ambulatory subject supports the diagnosis of Diabetes Mellitus. PERFORMED BY: [place] [address] PATHOLOGIST [employer]OMAT[employer]IN[employer]ING LATHE SETTER QUINN MAGALLON M.D. Performed By: #### P TT #### [place] [id number] [facility] LIPASEon 01-10-2022 Lipase [Catalytic activity/Vol] 63.0 U/L Critically low 73.0-393.0 [facility] Comment on above: Performed By: #### C BCMAN #### [facility] [address] [place] [address] Dr. Vangie Devine Laboratory - Chemistry and C hemistry - challengeOrdered By: Isidra Lagunas on 01-10-2022 Magnesium [Mass/Vol] 2.0 mg/dL 1.6-2.6 [facility] Magnesiumon 01-10-2022 Magnesium [Mass/Vol] 2.0 mg/dL Normal 1.6-2.6 [facility] Comment on above: Result Comment: PERF ORMED BY: [place] [address] PATHOLOGIST [employer]OMAT[employer]IN[employer] LATHE SETTER QUINN MAGALLON M.D. Performed By: #### P TT #### [facility] [address] [place], [place] [id number] [facility] PROTIMEon 01-10-2022 INR Coag (PPP) [Relative time] 1.01 {INR} Normal [facility] Comment on above: Performed By: #### P TT, PT #### [facility] [address] [place] [address] Dr. Vangie Devine INR GUIDELINES SEE BELOW Normal [facility] Comment on above: Result Comment: MARY ANN RED INR: 2.0 - 3.0 CONDITIONS NOT LISTED BELOW 2.5 - 3.5 FOR PROSTHETIC HEART VALVE REPLACEMENT 2.5 - 3.5 RECURRENT THROMBOSIS Performed By: #### P TT, PT #### [facility] [address] [place] [address] Dr. Vangie Devine PT Coag (PPP) [Time] 10.9 s Normal 9.0-11.6 [facility] Comment on above: Performed By: #### P TT, PT #### [facility] [address] [address] [address] Vangie Devine PTTon 01-10-2022 aPTT Coag (Bld) [Time] 26.3 s Normal 22.3-36.2 [facility] Comment on above: Performed By: #### P TT, PT #### [facility] [address] [place] [address] Dr. Vangie Devine Partial Thromboplastin Timeo n 01-10-2022 aPTT Coag (Bld) [Time] 50.4 s High 25.1-36.5 [facility] Comment on above: Order Comment: List the anticoagulant: HEPARIN, UNFRACTIONATED Result Comment: PERF ORMED BY: [place] [address] PATHOLOGIST [employer]OM[employer]IN[employer] LATHE SETTER QUINN MAGALLON M.D. Performed By: #### P TT #### [facility] [address] [place] [address] Troponin I High Sensitivityo n 01-10-2022 Troponin I High Sensitivity 238136 pg/mL Off scale high 0-15 [facility] Comment on above: Order Comment: iván hart rn kevin Result Comment: Crit ical value result called at 2135 on 01/10/22 PERFORMED BY: [place] [address] PATHOLOGIST [employer]OM[employer]IN[employer] LATHE SETTER QUINN MAGALLON M.D. Performed By: #### P TT #### [facility] [address] [place] [address] [place] Troponin I High Sensitivity 705505 pg/mL Off scale high 0-15 [facility] Comment on above: Result Comment: Crit ical value result called at 1812 on 01/10/22 PERFORMED BY: [address] [address] PATHOLOGIST [employer]OM[employer] LATHE SETTER QUINN MAGALLON M.D. Performed By: #### P TT #### [facility] [address] [place] [address] [place] Troponin I High Sensitivity Normal 0-15 [facility] Comment on above: Result Comment: Ugo tity not sufficient. Please resubmit. PERFORMED BY: [address] [address] PATHOLOGIST [employer] LATHE SETTER QUINN MAGALLON M.D. Performed By: #### P T #### [facility] [address] [place] [address] [place] Troponin I High Sensitivity 89140 pg/mL Off scale high 0-15 [facility] Comment on above: Result Comment: Crit ical value result called at 1435 on 01/10/22 PERFORMED BY: [address] [address] PATHOLOGIST [employer]OM[employer] LATHE [employer]TER QUINN MAGALLON M.D. Performed By: #### P TT #### [facility] [address] [place] [address] [place] XR CHEST 1 Von 01-10-2022 XR CHEST 1 V CLINICAL HISTORY: Chest pain COMPARISON: Chest radiograph 12/20/2015 at [facility]. FINDINGS: Portable AP view of the chest obtained. Cardiomediastinal silhouette is normal. Lungs are clear, no evidence of infiltrate, suspicious nodule, or mass. No evidence of significant pleural fluid on this portable projection. No acute bony abnormality. IMPRESSION: No acute abnormality. Electronically authenticated by: MADELAINE ALVA Date: 2022-01-10 10:16 Normal [facility] WRIST LEFT 3 VWSon 2 WRIST LEFT 3 VWS [facility] Department of Radiology [address] [place] [id number] Patient Name: JAVIER ROSA : 1970 Sex: F Age: Race: White Pt. 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 Ortho follow up. QUESTION FOR THE RADIOLOGIST: Evaluate PROTOCOL: AP,Lateral and Oblique views were obtained. COMPARISON: None IMPRESSION: Interval changes of resection of the proximal carpal row for treatment of lunate avascular necrosis. Calcifications persist over the radiocarpal joint period Degenerative changes of the first CMC. Sequelae of remote injury at the ulnar styloid. Bony demineralization. Electronically signed: QUANG RUFFIN. Transcribed by: [email or web address], User Resident: Electronically Signed by: QUANG RUFFIN @ 09/10/2021 09:04 AM Normal [facility] Comment on above: Order Comment: Evalu ate Operative Reporton Operative Report MR#: [id number] S [facility] Pt. Name: Javier Rosa Room #: 0C Discharge Date: Birthdate: 1970 OPERATIVE REPORT DATE OF SURGERY: 07/22/2021 SURGEON: Rafi Biswas M.D. PREOPERATIVE DIAGNOSIS: Kienbock's disease, stage IV, left lunate. POSTOPERATIVE DIAGNOSIS: Kienbock's disease, stage IV, left lunate. PROCEDURE: Proximal row carpectomy, left wrist. OVERHAULER HELPER: Maricarmen Liao M.D. ANESTHESIA: Regional. INDICATION FOR SURGERY: The patient is a 51-year-old female, whom we saw recently in our [facility] with complaints of pain in her left wrist. X-ray showed her to have fairly advanced Kienbock's disease with some flattening of the lunate and fragmentation. She has some arthritis at the radioscaphoid joint. It is difficult to tell, but I think the proximal capitate is still good enough that we could get away with a proximal row carpectomy. She was brought to the operating room today for that purpose in the hopes of relieving her wrist pain. The risks and benefits were explained prior to surgery, and with good understanding, it is agreed to proceed. NARRATION: The patient was brought to the operating room and placed on the table in a supine position. An axillary block had been administered per the anesthesia service in the holding area. A tourniquet was placed around the proximal left arm. The left upper extremity was prepped and draped out in a sterile fashion. To begin the procedure, after a standard time-out, the arm was exsanguinated with an Esmarch bandage and the tourniquet was inflated to 250 mmHg. Using a 15 blade, a dorsal midline incision was made on the wrist. Blunt dissection was carried out through the subcutaneous tissue down to the extensor retinaculum. Superficial blood vessels were cauterized with a Bovie. Once that was done, the extensor retinaculum was opened up taking down the distal centimeter and half or so, so that the extensor tendons could be mobilized ulnarly. A self-retaining retractor was placed. The dorsal capsule was opened up down the midline with the Bovie, and then, we elevated radial and ulnar capsular flaps. The carpals were exposed. With traction, I could see the midcarpal joint and the capitate really does look pretty good. The scapholunate ligament was very much attenuated. There was arthritis at the radioscaphoid joint. The lunate was very prominent dorsally and I think it was just because it was broken in half, and the dorsal half was extruded out a little bit. Once we had adequate exposure, and the anatomic landmarks were clearly defined, we began removing the proximal carpal row bones. The portion of the lunate was removed first. We then took out the triquetrum. As we started getting the ulnar side of the triquetrum, we saw the triangular fibrocartilage. There was a peripheral tear of the cartilage that was kind of involving the dorsal ligament a bit. I thought if we could get a stitch into that, that may help with some stability at the DRUJ. We finished taking out the triquetrum and then removed the scaphoid. The volar radiocarpal ligaments were visualized and were still intact. The volar part of the lunate was down under the capitate and I carefully removed that making sure not to disrupt much of those ligaments and the volar capsule. Once we had all 3 bones removed, we looked at the capitate. It looks really good. There were no arthritic changes there at all nor was there any on the lunate fossa of the radius, so this should work well for her. The wound was irrigated thoroughly with normal saline solution to remove any small bony fragments. We took some 3-0 TiCron and put a nkoewz-bc-[id number] suture in that dorsal portion of the TFCC right near the ulnar styloid where the small tear was. The volar part of the TFCC looks good. Once that was in, the dorsal capsule was closed with multiple [id number]-il-[id number] sutures of 2-0 Vicryl. The subcutaneous tissue was closed with some buried 3-0 Vicryl and the skin with 4-0 Novafil. A sterile dressing of Xeroform gauze, 4x4 fluffs, Webril, and a volar plaster splint was applied. The tourniquet was released and the drapes were removed. All sponge and needle counts were correct at the time of closure. She was brought to the recovery area in a stable condition, having tolerated the procedure well. Electronically Signed by: Rafi Biswas M.D. 07/26/2021 09:43 A Rafi Biswas M.D. Date Dict: 07/22/2021/09:24 Hilaria/Rafi Biswas M.D. Date Trans: 07/22/2021 10:32 A/destinee [id number] cc: Moriah Mack M.D. [address] [place] [address]. [facility] [id number] Normal [facility] POC GLUCOSE LABon 07-22-2021 Glucose [Mass/Vol] 85 mg/dL Normal 70-100 [facility] Comment on above: Performed By: #### 8 [id number] #### [address] MRI WRIST WO CONTRAST RIGHTo n 06-09-2021 MRI WRIST WO CONTRAST RIGHT [facility] Department of Radiology [address] [place] [id number] Patient Name: JAVIER ROSA : 1970 Sex: F Age: Race: White Pt. 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 , Side: RIGHT PROTOCOL: Images were obtained in the following sequences: 3-plane localizer, axial PD fat-sat, axial T1, coronal T1, coronal T2 fat-sat, sagittal PD fat-sat, sagittal T1, and coronal 3D GRE. COMPARISON: None. FINDINGS: Sclerosis and cystic changes identified in the lunate without fragmentation. The scaphoid and remaining carpal structures appear unremarkable. The flexor tendons are normal. The extensor carpi ulnaris demonstrates some intermediate signal and a split configuration with tendinosis. Styloid year scaphoid trapezium trapezoid capitate hamate scapholunate ligament is intact. Lunotriquetral ligament appears intact. No definite abnormality in the triangular fibrocartilage. IMPRESSION: 1. Sclerosis, cystic changes, and vague edema noted within the lunate which may relate to early Kienbock's without fragmentation or collapse. 2. There may be a small partial split tear of the extensor carpi ulnaris, likely chronic. 3. Please see above for further details. Electronically signed: Liz Nam. Transcribed by: [email or web address], User Resident: Electronically Signed by: LIZ NAM @ 06/11/2021 09:46 AM Normal [facility] Comment on above: Order Comment: Evide nce Keinbock's R wrist on outside x-ray, evaluate for staging and surgical planning. , Side: RIGHT WRIST LEFT 3 Son 1 WRIST LEFT 3 [facility] Department of Radiology [address] [place] [id number] Patient Name: JAVIER ROSA : 1970 Sex: F Age: Race: White Pt. 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 COMPARISON: None. IMPRESSION: 1. Subtle sclerosis lunate suggests possibility of osteonecrosis. No significant ulnar variance. 2. No acute fracture. No dislocation. Likely remote injury ulnar styloid. 3. Borderline widening scapholunate interval. 4. Multiple moderate triscaphe and radiocarpal arthritis. Electronically signed: Alonso Iglesias. Transcribed by: [email or web address], User Resident: Electronically Signed by: ALONSO IGLESIAS @ 05/19/2021 12:56 PM Normal [facility] Comment on above: Order Comment: evalu ate WRIST RIGHT 3 [facility] 05-18-20 21 WRIST RIGHT 3 [facility] Department of Radiology [address] [place] [id number] Patient Name: JAVIER ROSA : 1970 Sex: F Age: Race: White Pt. 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 COMPARISON: None. IMPRESSION: 1. Subtle sclerosis lunate suggest osteonecrosis. 2. No acute fracture. No malalignment. No significant ulnar variance. Electronically signed: Alonso Iglesias. Transcribed by: [email or web address], User Resident: Electronically Signed by: ALONSO IGLESIAS @ 05/19/2021 12:55 PM Normal [facility] Comment on above: Order Comment: evalu ate Vital Signs Date Time Vital Sign Value Performing Clinician Facility 01-20-2022 12:07-0400 Diastolic blood pressure 58 mm[Hg] No PCP None [facility] [place] [facility] DO Work Phone: 01-20-2022 12:07-0400 Systolic blood pressure 105 mm[Hg] No PCP None [facility] 250 DO Work Phone: 01-20-2022 11:58-0400 Body height 147.32 cm No PCP None [facility] 250 DO Work Phone: 01-20-2022 11:58-0400 Body mass index (BMI) [Ratio] 38.87 kg/m2 No PCP None [facility] 250 DO Work Phone: 01-20-2022 11:58-0400 Body surface area Derived from formula 1.77 m2 No PCP None [facility] DO Work Phone: 01-20-2022 11:58-0400 Body weight 84.37 kg No PCP None [facility] 250 DO Work Phone: 01-20-2022 11:58-0400 Diastolic blood pressure 62 mm[Hg] No PCP None [facility] DO Work Phone: 01-20-2022 11:58-0400 Heart rate 60 /min No PCP None [facility] 250 DO Work Phone: 01-20-2022 11:58-0400 Systolic blood pressure 110 mm[Hg] No PCP None [facility] 250 DO Work Phone: 01-20-2022 11:58-0400 6 1 No PCP None [facility] 250 DO Work Phone: Comment on above: PHQ-9 TS 01-14-2022 13:04-0400 Heart rate 74 /min DO W Clarke Bebo Work Phone: [facility] 01-14-2022 13:04-0400 Respiratory rate 20 /min DO W Clarke Bebo Work Phone: [facility] 01-14-2022 12:00-0400 Body temperature 98.4 [degF] DO W Clarke Bebo Work Phone: [facility] 01-14-2022 12:00-0400 Diastolic blood pressure 69 mm[Hg] DO W Clarke Bebo Work Phone: [facility] 01-14-2022 12:00-0400 SaO2% (BldA) [Mass fraction] 96 % DO W Clarke Bebo Work Phone: [facility] 01-14-2022 12:00-0400 Systolic blood pressure 98 mm[Hg] DO W Clarke Lagunas Work Phone: [facility] 01-14-2022 04:55-0400 Body weight 85 kg DO W Clarke Lagunas Work Phone: [facility] 01-12-2022 08:00-0400 Inhaled oxygen flow rate 3 L/min DO W Clarke Lagunas Work Phone: [facility] 01-11-2022 16:45-0400 Inhaled oxygen concentration 50 % DO W Clarke Lagunas Work Phone: [facility] 01-11-2022 00:00-0400 35 1 No PCP None -[facility] DO Work Phone: Comment on above: [id number] 01-10-2022 13:01-0400 Body height 147.32 cm DO W Clarke Lagunas Work Phone: [facility] 01-10-2022 13:01-0400 Body mass index (BMI) [Ratio] 39.2 kg/m2 DO W Clarke Lagunas Work Phone: [facility] Encounters Encounter Date Encounter Type Care Provider Facility Start: 07-31-2023 End: 07-31-2023 ambulatory [facility] Start: 07-18-2023 End: 07-18-2023 ambulatory ALTON ALEXISUC [facility] Start: 06-28-2023 End: [facility]: 05-23-2023 End: 05-24-2023 ambulatory [facility] Start: 03-22-2023 End: 03-22-2023 ambulatory [facility] Start: 03-06-2023 End: 03-06-2023 ambulatory [facility] Start: 02-10-2023 End: 02-10-[facility]23 [facility]: 01-13-2023 End: 01-13-2023 ambulatory YELENA [facility] Start: 12-21-2022 End: 12-22-[address] DOCTOR SCHWARZ Facility:[facility] Start: 12-13-2022 End: 12-13-2022 ambulatory ALTON DILLARDCKO [facility] Start: 12-12-2022 End: 12-12-2022 ambulatory CHEL DIXON [facility] Start: 12-09-2022 End: 12-10-2022 ambulatory YELENA CRUZ Facility:[facility] Start: 11-30-2022 End: 11-30-2022 ambulatory YELENA [facility] Start: 10-31-2022 End: 11-01-[address] ANGEL CHRISTOPHER Facility:[facility] Start: 10-03-2022 End: 10-03-2022 ambulatory [place] Start: 09-02-2022 End: 09-03-2022 ambulatory DEENA [facility] Start: 07-20-2022 End: 07-21-2022 ambulatory NIKKI KELLOGG Facility:[facility] Start: 06-03-2022 End: 06-03-2022 ambulatory MEREDITH SEWELL . Facility:[facility] Start: 05-18-2022 End: 05-19-[address] ANGEL CHRISTOPHER Facility:[facility] Start: 05-15-2022 End: 06-13-2022 ambulatory NIKKI KELLOGG Facility:[facility] Start: 05-14-2022 End: 05-15-2022 ambulatory ALTON AVALOS Facility:[facility] Start: 05-12-2022 End: 05-13-2022 ambulatory ALTON AVALOS Facility:[facility] Start: 05-06-2022 ambulatory NIKKI KELLOGG Facility: [facility] Start: 05-06-2022 End: 05-07-2022 ambulatory NIKKI KELLOGG Facility:[facility] Start: 04-14-2022 End: 05-14-2022 ambulatory SHAIKH Sergo HERRERA Facility:[facility] Start: 03-31-2022 End: 04-01-[address] DEENA SANTA Facility:[facility] Start: 03-28-2022 End: 03-29-[address] DEENA SANTA Facility:[facility] Start: 03-14-2022 End: 04-13-2022 ambulatory SHAIKH Sergo HERRERA Facility:[facility] Start: 02-14-2022 End: 03-11-2022 ambulatory SHAIKH Sergo HERRERA Facility:[facility] Start: 02-02-2022 End: 05-06-[address] DOCTOR SCHWARZ Facility:[facility] Start: 01-27-2022 Chart Update No PCP None [facility] DO Work Phone: Start: 01-20-2022 End: 02-11-2022 ambulatory SHAIKH Sergo HERRERA Facility:[facility] Start: 01-20-2022 Transitional care moni clark srvc 7 day discharge No PCP None [facility] 250 DO Work Phone: Start: 01-17-2022 End: 01-18-[address] NOLAN LAGUNAS Facility:[facility] Start: 01-10-2022 End: 01-14-2022 Evaluation and management of inpatient Isidra Lagunas Facility:[facility] Start: 01-10-2022 End: 01-14-2022 Evaluation and management of inpatient DO W Clarke Lagunas Work Phone: [facility] Start: 01-10-2022 End: 01-10-2022 ambulatory HASMUKH KATZ . Facility:[facility] Start: 07-22-2021 End: 07-23-2021 ambulatory RAFI BISWAS Facility:[facility] Procedures Date Procedure Procedure Detail Performing Clinician Start: 01-11-2022 Plain chest X-ray DO W Clarke Lagunas Work Phone: Start: 01-10-2022 CL Coronary Thrombol ysis IV DO W Clarke Lagunas Work Phone: Start: 01-10-2022 CL Insert IABP DO W Jose Ro kulwinder Lagunas Work Phone: Start: 01-10-2022 CL LHC & COR Angio DO W Clarke Lagunas Work Phone: Start: 01-10-2022 CL PCI AMI 1st Vesse l LAD KATIE DO W Clarke Lagunas Work Phone: Start: 01-10-2022 DO W Clarke Lagunas Work Phone: section No PCP None Ligation of fallopian tube N o PCP None Operative procedure on knee No PCP None Operative procedure on wrist No PCP None Plan of Treatment Date Care Activity Detail Author Start: 05-18-2022 FUV, Provider: Nolan Lagunas, Status: Pen, Time: 10:50 AM FUV, Provider: Nolan Lagunas, Status: Pen, Time: 10:50 AM [facility] DO Work Phone: Start: 03-21-2022 FUV, Provider: Beth Hull, Status: Pen, Time: 8:30 AM FUV, Provider: Beth Hull, Status: Pen, Time: 8:30 AM [facility] DO Work Phone: Start: 03-14-2022 ECHO, Provider: LUCAS HANI ULTRASOUND 01,[id number], Status: Pen, Time: 10:45 AM ECHO, Provider: LUCAS HANI ULTRASOUND 01,[id number], Status: Pen, Time: 10:45 AM -[facility] DO Work Phone: Start: 01-26-2022 STRESS MARK, Provider : LUCAS HANI NUCLEAR 01,[id number], Status: Pen, Time: 2:00 PM [place] MARK, Provider: LUCAS HHVI NUCLEAR 01,[id number], Status: Pen, Time: 2:00 PM [facility] DO Work Phone: Patient Education Coronary Angio plasty (DC) Angina (DC) Drug Eluting Stents [facility] Work Phone: Patient referral [facility] Work Phone: Payers Date Payer Category Payer Unknown [id number] 1970 Unknown [id number] 2.16.8 [id number] 1970 Unknown [id number] 2.16.84 [id number] 1970 Unknown [id number] 2.16.84 0.1.931955.3.579.2.593 1970 Unknown [id number] 2.16.84 0.1.504572.3.579.2.593 1970 Unknown [id number] 2.16.84 0.1.193756.3.579.2.593 1970 Unknown [id number] 2.16.84 0.1.066017.3.579.2.593 1970 Unknown [id number] 2.16.84 0.1.274495.3.579.2.593 1970 Unknown [id number] 2.16.84 0.1.225922.3.579.2.593 1970 Unknown [id number] 2.16.84 0.1.431444.3.579.2.593 1970 Unknown [id number] 2.16.84 0.1.797964.3.579.2.593 1970 Unknown [id number] 2.16.84 0.1.002944.3.579.2.593 1970 Unknown [id number] 2.16.84 0.1.680618.3.579.2.593 1970 Unknown [id number] 2.16.84 0.1.682220.3.579.2.593 1970 Unknown [id number] 2.16.84 0.1.675605.3.579.2.593 1970 Unknown [id number] 2.16.84 0.1.352728.3.579.2.593 1970 Unknown [id number] 2.16.84 0.1.012791.3.579.2.593 1970 Unknown [id number] 2.16.84 0.1.193643.3.579.2.593 1970 Unknown [id number] 2.16.84 0.1.466866.3.579.2.593 1970 Unknown [id number] 2.16.84 0.1.481414.3.579.2.593 1970 Unknown [id number] 2.16.84 0.1.907133.3.579.2.593 1970 Unknown [id number] 2.16.84 0.1.100625.3.579.2.593 1958 Self-pay [id number] Unknown Unknown [id number] 2.16.8 40.1.001044.3.579.2.531 Unknown [id number] 2.16.84 0.1.036122.3.579.2.593 Social History Date Type Detail Facility Daily caffeine consumption Daily caffeine consumption [facility] Work Phone: Comment on above: 3-4; quit 1 week ago; Start: 01-10-2022 Tobacco smoking stat us TXIS Smoker (finding) [facility] Start: 1970 Sex Assigned At Female F [facility] Medical Equipment Procedure Code Equipment Code Equipment Origin al Text Equipment Identifier Dates Drug-eluting coronary artery stent, [id number] lymer-coated ()[id number] FDA Start: 01-10-2022 Drug-eluting coronary artery stent, [id number] lymer-coated ()[id number] FDA Start: 01-10-2022 Goals Date Patient Goal Desired Activity /State Functional Status Date Assessment Result Facility 01-20-2022 PHQ-9 [id number] Mild (5-9) [facility] DO Work Phone: 01-14-2022 Functional status Patient at Baseline [facility] Work Phone: 01-10-2022 Functional status Disability Sta tus Patient at Baseline [facility] Work Phone: Mental Status Date Assessment Result Facility 01-10-2022 Cognitive function Cognitive Sta s Patient at Baseline [facility] Work Phone: Clinical Notes 01-10-2022 to 07-31-2023 Note Date & Type Note Facility 07-31-2023 Note Subjective Javier Rosa is a 53 y.o. female with CHF and psoriasis who presents as a new patient for the following: recheck of psoriasis. Patient has been on Tremfya for about six months now and her psoriasis as improved dramatically. She c/o plaques on her elbows only. She has noticed three spots on her scalp she would like checked to see if they are psoriasis plaques. No new or worsening joint pain. She had bronchitis since last seen; this resolved with antibiotics. No other illnesses or changes in health since last visit. Patient is concerned that her Tremfya will not be covered for 2023 because she is switching to [employer] Medicare. Historical: Failed Class I topical steroids, UVB phototherapy, Taltz, and Otezla. Not a candidate for Humira due to CHF. Review of Systems Constitutional: Negative for chills and fever. Eyes: Negative for discharge and itching. Skin: Positive for rash. Objective Well appearing patient in no apparent distress; mood and affect are within normal limits. Physical Exam Constitutional: General: She is not in acute distress. Appearance: Normal appearance. HENT: Head: Normocephalic and atraumatic. Eyes: Conjunctiva/sclera: Conjunctivae normal. Neurological: Mental Status: She is alert and oriented to person, place, and time. Skin Exam Arndt Type II Generalized elastosis to sun exposed areas. Scalp: 3 scattered erythematous follicular papules Head: normal Neck: normal Chest: normal Back: few excoriations on the mid back Upper Extremities Right: thin scaly erythematous plaque on the elbow Upper Extremities Left: as above Lower Extremities Right: normal Lower Extremities Left: normal Inspection/Palpation: normal hair, normal eyebrows Assessment/Plan Psoriasis Related Medications guselkumab (Tremfya) 100 mg/mL syringe Inject 1mL under the skin on Day 0 and Day 29, then every 8 weeks thereafter guselkumab (Tremfya) 100 mg/mL syringe Inject 1mL under the skin every 8 weeks Psoriatic arthritis (CMS/HCC) Related Medications guselkumab (Tremfya) 100 mg/mL syringe Inject 1mL under the skin on Day 0 and Day 29, then every 8 weeks thereafter guselkumab (Tremfya) 100 mg/mL syringe Inject 1mL under the skin every 8 weeks Folliculitis Diagnoses reviewed with patient. Psoriasis and PsA have improved dramatically since starting Tremfya six months ago-- pt to continue injections every 8 weeks. She will be switching to Medicare in August 2023. Patient given information sheet on how to apply for patient financial assistance for Tremfya. Will check screening labs at follow up in six months. Lesions on scalp are mild folliculitis-- no intervention required. Patient to continue sun sense/ sun safety. Call for any acute issues. [facility] 06-28-2023 Note ID Cardiology - [facility] Subjective Javier Rosa is a 53 y.o. year old female patient being seen for Follow-up (BP running higher.) Patient Active Problem List Diagnosis Pain of joint of both hands Acute non-ST segment elevation myocardial infarction (CMS/HCC) Coronary arteriosclerosis Hyperlipidemia Left ventricular thrombus Obesity Progressive avascular necrosis of lunate (CMS/HCC) Tobacco user ICD (implantable cardioverter-defibrillator), dual, in situ Chest pain Chronic systolic heart failure (CMS/HCC) Avascular necrosis of bone of wrist (CMS/HCC) Psoriatic arthritis (CMS/HCC) Benign hypertensive cardiomyopathy with heart failure (CMS/HCC) Generalized anxiety disorder Family History Problem Relation Name Age of Onset Atrial fibrillation Mother Other (pacemaker) Mother Heart attack Father Other (pacemaker) Father Other (aortic valve disorder) Father Social History Tobacco Use Smoking status: Former Years: 35.00 Types: Cigarettes Quit date: 10/19/2022 Years since quittin.6 Smokeless tobacco: Never Substance Use Topics Alcohol use: Not Currently Comment: occasional Drug use: Never HPI Visit of 02/07/2022: Javier is seen as a new patient. The following information is from review of the available medical record. She is a 52-year-old woman. On 01/10/2022 she presented to [facility] with STEMI and was found to have thrombosed LAD and underwent primary PCI with 2 drug-eluting stents. She had significant LV dysfunction with anteroapical akinesis and left ventricular thrombus by echocardiogram. She developed ventricular arrhythmia that were treated with intravenous amiodarone. Today she reports that she has been doing reasonably well. She has shortness of breath on exertion, NYHA class II. No lower extremity edema. No recurrence of angina. She is enrolled in cardiac rehab at the [facility] and doing well with that. Anticoagulation clinic at the [facility] follows her warfarin levels. Testing: ECG 01/13/2022: Normal sinus rhythm, possible inferior infarct, anterolateral infarct. QRS 76 ms. Echocardiogram 01/10/2022: Normal LV size and thickness. Ejection fraction 30 to 35%, distal two thirds of anterior wall and septum are akinetic, distal inferior wall akinetic, moderate sized apical thrombus, mild to moderate valvular aortic stenosis, trace mitral regurgitation, trace tricuspid regurgitation. Blood testing 01/14/2022: BUN 8, creatinine 0.69, GFR more than 60, potassium 4.2. Blood testing 01/11/2022: Cholesterol 108, HDL 43, triglycerides 83, LDL 49. 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 LV ejection fraction 25%. PCI 01/10/2022: Drug-eluting stents 2.5 x 28 mm skypoint, 2.5 x 18 mm Oscar. An intra-aortic balloon pump was placed. Visit of 04/04/2022: She is seen in follow-up. At last visit I started her on Farxiga and spironolactone. Insurance did not cover Farxiga but covered Jardiance. She started it 4 weeks ago. She is in NYHA class II. No angina. No leg edema. She feels occasional palpitations. Blood testing 03/28/2022: Potassium 5.1, BUN 9, creatinine 0.89, ALP 127, bilirubin normal rest of liver enzymes normal, cholesterol 103, triglycerides 86, HDL 39, LDL 47, CBC normal. Echocardiogram 03/31/2022: LV systolic function is moderately reduced with segmental wall motion abnormalities there is akinesis of the mid to distal segments and dyskinesis of the apex. No evidence of left ventricular thrombus seen. LVEF is 30 to 35%, normal RV size and systolic function, mild tricuspid regurgitation, mildly elevated right-sided pressures. Mild to moderate mitral regurgitation. Visit of 07/04/2022: She is seen in follow-up. After last visit and due to persistently reduced left ventricular systolic function less than 35% I referred her to Dr. Alton Avalos for placement of an ICD for primary prevention.This was placed on 05/17/2022. At that time warfarin was stopped. I had her resume aspirin 81 mg daily together with Plavix 75 mg daily. She currently is doing well. She has no chest pain. She does have mild shortness of breath on exertion and mild occasional lower extremity edema. No palpitations. No syncope. The ICD incision site has healed well. No ICD discharges. Visit of 10/03/2022: She is seen in follow-up. At last visit I increased lisinopril to 5 mg daily and referred her to cardiac rehab. I also had her increase carvedilol to 12.5 mg twice daily. she denies chest pain, she has shortness of breath on exertion NYHA class (more content not included)... [facility] 05-23-2023 Note Orthopedic Surgery Subjective Pain of the Right Wrist (Radiates up thumb up arm) and Pain of the Left Wrist (Radiates up thumb up to arm. ) 05/23/23 Javier Rosa is a 53 y.o. female presenting for evaluation of bilateral wrist pain. Patient has a history of bilateral Kienbock's disease and was last seen in clinic in 2021. She is s/p left proximal row carpectomy in July 2021. Patient reports worsening pain in bilateral wrists (right = left). Right wrist pain is primarily at the base of her thumb radiating into her forearm. On the left, her pain is primarily ulnar-sided. States her left wrist feels like it did when she fractured it, but she denies any recent injuries. Reports difficulty performing daily activities due to pain. Denies numbness and tingling. Review of Systems unremarkable aside from what is noted in HPI Patient History Past Surgical History: Procedure Laterality Date CARDIAC CATHETERIZATION SECTION, CLASSIC ENDOMETRIAL ABLATION KNEE SURGERY TUBAL LIGATION Past Medical History: Diagnosis Date CHF (congestive heart failure) ([facility]) Coronary artery disease Hyperlipidemia Hypertension Left ventricular thrombus NSTEMI (non-ST elevated myocardial infarction) ([facility]) Objective General: Body mass index is 36.37 kg/m???. No acute distress, comfortable Respiratory: Unlabored breathing with normal rate, no cough Cardiovascular: Warm well perfused extremities Psych: Appropriate mood behavior Right Hand/Wrist: Inspection- no ecchymosis, no erythema, no deformity Tender to palpation over the wrist and thumb CMC joint Nontender to palpation over remainder of hand and digits Thumb: normal A1 steven and AROM, Index finger: normal A1 steven and AROM, Long finger: normal A1 steven and AROM, Ring finger: normal A1 steven and AROM, and Small finger: normal A1 steven and AROM Strength: calender wind up tender 5/5, thumb 5/5, interossei 5/5 Sensation: intact over median, ulnar, and radial nerve distributions Tinel (-) at carpal tunnel Jose's test (+) Cardiovascular: Well-perfused digits Left Hand/Wrist: Inspection- no ecchymosis, no erythema, no deformity Tender to palpation over the wrist and TFCC with positive fovea sign Nontender to palpation over remainder of hand and digits Thumb: normal A1 steven and AROM, Index finger: normal A1 steven and AROM, Long finger: normal A1 steven and AROM, Ring finger: normal A1 steven and AROM, and Small finger: normal A1 steven and AROM Strength: calender wind up tender 5/5, thumb 5/5, interossei 5/5 Sensation: intact over median, ulnar, and radial nerve distributions Tinel (-) at carpal tunnel Jose's test (-) Cardiovascular: Well-perfused digits Imaging personally reviewed: X-rays of left wrist obtained today demonstrate previous proximal row carpectomy with severe degenerative changes between the radius/ulna and remaining carpals. Not significantly changed compared to previous imaging. No acute osseous abnormalities. X-rays of right wrist obtained today demonstrate mild degenerative changes to the right thumb CMC joint. No significantly progressed collapse of lunate compared to previous imaging. No acute osseous abnormalities. Intermediate Joint (Left wrist TFCC) on 05/23/2023 4:15 PM Indications: pain Details: 25 G needle (ulnar) approach Medications: 1 mL triamcinolone acetonide 10 mg/mL; 1 mL lidocaine 10 mg/mL (1 %) Outcome: tolerated well, no immediate complications After discussing the treatment options, and the risks and benefits of a corticosteroid injection, verbal consent to proceed was obtained. In the clinic today, the area over the tip of the ulnar styloid on the left was prepped with a Betadine swab. Using a 25-gauge needle, the ulnocarpal joint was injected with a combination of 1 mL 1% lidocaine and 1 ml of Kenalog 10 mg/mL. The area was wiped clean with an alcohol swab, and dressed with a Band-Aid. Instructions were given to apply ice for about 10 minutes later today, or use over the anticounter anti-inflammatories for discomfort. Procedure, treatment alternatives, risks and benefits explained, specific risks discussed. Consent was given by the patient. Immediately prior to procedure a time out was called to verify the correct patient, procedure, equipment, computer customer support specialist and site/side marked as required. Patient was prepped and draped in the usual sterile fashion. Assessment/Plan Javier Rosa is a 53 y.o. 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 She has evidence of de Quervain's tenosynovitis. We discussed conservative management for this, including stretching, icing, and voltaren gel (patient is unable to take NSAIDs). She also has right thumb C (more content not included)... [facility] 05-23-2023 Note Patient ID: Javier Rosa is a 53 y.o. female. Intermediate Joint on 05/23/2023 9:21 PM Indications: pain Details: 25 G needle, medial approach Medications: 1 mL lidocaine 10 mg/mL (1 %); 1 mL triamcinolone acetonide 10 mg/mL Outcome: tolerated well, no immediate complications After discussing the treatment options, and the risks and benefits of a corticosteroid injection, verbal consent to proceed was obtained. In the clinic today, the area over the tip of the ulnar styloid on the left was prepped with a Betadine swab. Using a 25-gauge needle, the ulnocarpal joint was injected with a combination of 1 mL 1% lidocaine and 1 ml of Kenalog 10 mg/mL. The area was wiped clean with an alcohol swab, and dressed with a Band-Aid. Instructions were given to apply ice for about 10 minutes later today, or use over the anticounter anti-inflammatories for discomfort. Immediately prior to procedure a time out was called to verify the correct patient, procedure, equipment, computer customer support specialist and site/side marked as required. [facility] 03-22-2023 Note Patient here for 1st injection of Tremfya and training. Patient was previously on Taltz and is comfortable with self injecting. Patient self injected Tremfya 100mg prefilled syringe into LLQ. No side effects to note. Patient tolerated well. 2nd injection of loading dose due in 4 weeks. [facility] 03-06-2023 Note Subjective Javier Rosa is a 53 y.o. female with CHF who presents as a new patient for the following: evaluation of psoriasis. Patient has had psoriasis since age 11. It is present on her scalp, elbows, hands, back, abdomen, and knees. It is sometimes itchy. Patient also c/o joint pain in her hands. Denies any other concerns. Historical: Failed Class I topical steroids, UVB phototherapy, Taltz, and Otezla. Review of Systems Constitutional: Negative for chills, fatigue, fever and unexpected weight change. HENT: Negative for congestion, mouth sores, nosebleeds, sinus pain and sore throat. Eyes: Positive for itching. Negative for redness and visual disturbance. No cataracts, no glaucoma Respiratory: Positive for cough and shortness of breath. No emphysema/COPD Positive for asthma Cardiovascular: Negative for chest pain, palpitations and leg swelling. Gastrointestinal: Negative for constipation, diarrhea, nausea and vomiting. Endocrine: Negative for polydipsia and polyuria. Positive for thyroid disease Genitourinary: Negative for difficulty urinating, genital sores and menstrual problem. Musculoskeletal: Positive for arthralgias and joint swelling. Negative for myalgias. Positive for arthritis Skin: Positive for rash. No acne, no growth, no skin cancer Positive for itching, tenderness, nail problems. Allergic/Immunologic: Positive for environmental allergies. Negative for food allergies and immunocompromised state. Neurological: Negative for seizures, syncope, weakness, numbness and headaches. Hematological: Negative for adenopathy. Bruises/bleeds easily. Not currently using blood thinners Psychiatric/Behavioral: Positive for dysphoric mood. Negative for sleep disturbance and suicidal ideas. The patient is nervous/anxious. Objective Well appearing patient in no apparent distress; mood and affect are within normal limits. Physical Exam Constitutional: General: She is not in acute distress. Appearance: Normal appearance. HENT: Head: Normocephalic and atraumatic. Eyes: Conjunctiva/sclera: Conjunctivae normal. Neurological: Mental Status: She is alert and oriented to person, place, and time. Skin Exam Arndt Type II Generalized elastosis to sun exposed areas. Scalp: few thin scaly plaques mainly on the posterior scalp Head: normal Neck: normal Chest: normal Abdomen: normal Back: few scaly erythematous plaques on the upper back Upper Extremities Right: scaly erythematous plaques on the elbow and dorsal hand Upper Extremities Left: as above Lower Extremities Right: scaly erythematous plaque on the knee Lower Extremities Left: as above Inspection/Palpation: normal hair, normal eyebrows Assessment/Plan Psoriasis Related Medications guselkumab (Tremfya) 100 mg/mL syringe Inject 1mL under the skin on Day 0 and Day 29, then every 8 weeks thereafter guselkumab (Tremfya) 100 mg/mL syringe Inject 1mL under the skin every 8 weeks Psoriatic arthritis (CMS/HCC) Related Medications guselkumab (Tremfya) 100 mg/mL syringe Inject 1mL under the skin on Day 0 and Day 29, then every 8 weeks thereafter guselkumab (Tremfya) 100 mg/mL syringe Inject 1mL under the skin every 8 weeks Tuberculosis screening Related Procedures QUANTIFERON TB GOLD Encounter for screening for other viral diseases Related Procedures Hepatitis B surface antigen Hepatitis C antibody Other problems related to lifestyle Related Procedures Hepatitis B surface antigen Hepatitis C antibody Patient counseled on diagnoses. Patient has psoriasis covering >8% BSA, including the scalp and hands. She also has psoriatic arthritis in her hands. She has failed Class I topical steroids, UVB phototherapy, Taltz, and Otezla. She is not a candidate for Humira due to CHF. Counseled on Tremfya, including MOA, side effect profile, and dosing schedule. Patient is willing to pursue. Will check screening labs today and follow up in 3 months. Patient to continue sun sense/ sun safety. Call for any acute issues. [facility] 02-10-2023 Note Coronary artery dise ase is stable Continue GDMT continue risk factor modifications- heart healthy diet, regular exercise as tolerated and continue all medications. [facility] 02-10-2023 Note [facility]- II-III Continue GDMT- ASA, lipitor, crestor, coreg, jardiance and entresto Diuretic therapy- lasix 40 mg daily Monitor daily weights, I&O, fluid restriction 1.5-2L/day, renal function and electrolytes- [facility] 02-10-2023 Note [facility] CARDIOLOGY PROGR ESS NOTE HPI: Javier Rosa is a 53 y.o. female here for chronic systolic heart failure, CAD, and LV thrombus. Had echo last month at [facility]. She is down to smoking 1-2 cigarettes a week. Still does cardiac rehab at [facility] 2-3 times a week. HPI Today for reevaluation after increase Lasix for fluid retention, congestion and wheezing along with abdominal swelling last visit. Currently she is down about 4 pounds, states her abdominal swelling fluid retention and lung wheezing and congestion has greatly improved She just came from cardiac rehab and overall she is doing well Denies chest pain, states shortness of breath is much improved from last visit, denies orthopnea, fever or chills. Review of Systems Constitutional: Negative. Respiratory: Positive for shortness of breath. Admits typical shortness of breath with exertion Cardiovascular: Negative. Neurological: Negative. All other systems reviewed and are negative. Visit Vitals BP 90/64 (BP Location: Left arm, Patient Position: Sitting) Pulse 74 Ht 1.473 m (4' 10 ) Wt 77.6 kg (171 lb) SpO2 99% BMI 35.74 kg/m??? OB Status Perimenopausal Smoking Status Former BSA 1.78 m??? Allergies Allergen Reactions Moxifloxacin Anaphylaxis, Hives and Swelling AKA: Avalox Chlorhexidine Gluconate Itching Itching and burning Medications: Current Outpatient Medications on File Prior to Visit Medication Sig Dispense Refill albuterol 90 mcg/actuation inhaler inhale 1 to 2 puffs by mouth and INTO THE LUNGS every 4 to 6 hours if needed aspirin 81 mg chewable tablet Chew 1 tablet (81 mg) in the morning. 30 tablet 11 atorvastatin (Lipitor) 80 mg tablet Take 1 tablet (80 mg) by mouth at bedtime. 90 tablet 3 buPROPion XL (Wellbutrin XL) 300 mg 24 hr tablet Take 300 mg by mouth in the morning. busPIRone (Buspar) 10 mg tablet every 12 (twelve) hours. carvedilol (Coreg) 12.5 mg tablet Take 1 tablet (12.5 mg) by mouth with breakfast and with evening meal. 180 tablet 3 clopidogrel (Plavix) 75 mg tablet Take 1 tablet (75 mg) by mouth in the morning. 90 tablet [address] capsule Take 40 mg by mouth in the morning and at bedtime. furosemide (Lasix) 40 mg tablet Take 1 tablet (40 mg) by mouth in the morning. 90 tablet 3 Jardiance 10 mg Take 1 tablet (10 mg) by mouth in the morning. 90 tablet 3 levothyroxine (Synthroid, Levoxyl) 125 mcg tablet Take 125 mcg by mouth before breakfast. nitroglycerin (Nitrostat) 0.4 mg SL tablet pantoprazole (ProtoNix) 40 mg EC tablet Take 40 mg by mouth before breakfast. Do not crush, chew, or split. potassium chloride CR (Klor-Con M10) 10 mEq ER tablet Take 1 tablet (10 mEq) by mouth in the morning. Do not crush or chew. 30 tablet 11 spironolactone (Aldactone) 25 mg tablet Take 1 tablet (25 mg) by mouth once daily as directed. 90 tablet 3 [DISCONTINUED] sacubitriL-valsartan (Entresto) 49-51 mg tablet Take 1 tablet by mouth in the morning and at bedtime. 60 tablet 0 No current facility-administered medications on file prior to visit. Physical Exam: Constitutional: Appearance: Normal appearance. Without apparent distress, chronically ill HENT: Head: Normocephalic and atraumatic. Nose: Nose normal. Mouth/Throat: Mouth: Mucous membranes are moist. Eyes: Extraocular Movements: Extraocular movements intact. Conjunctiva/sclera: Conjunctivae normal. Neck: Vascular: No JVD. Cardiovascular: Rate and Rhythm: Normal rate and regular rhythm. Pulses: Dorsalis pedis pulses are 3 on the right side and 3on the left side. Posterior tibial pulses are 3 on the right side and 3 on the left side. Heart sounds: Normal heart sounds, S1 normal and S2 normal. Pulmonary: Effort: Pulmonary effort is normal. Breath sounds: Normal breath sounds. Abdominal: General: Bowel sounds are normal. Palpations: Abdomen is soft. Musculoskeletal: General: Normal range of motion. Cervical back: Normal range of motion. Right lower leg: No edema. Left lower leg: No edema. Skin: General: Skin is warm and dry. Capillary Refill: Capillary refill takes less than 2 seconds. Neurological: General: No focal deficit present. Mental Status: She is alert and oriented to person, place, and time. Psychiatric: Mood and Affect: Mood normal. Behavior: Behavior normal. Thought Content: Thought content normal. Judgment: Judgment normal. Labs: 02/08/23 Last lab values have been reviewed CV Testing: Transthoracic echo (TTE) complete Result Date: 09/03/2022 1 1 [facility] Heart Station [address] [place] [address] [phone] (fax) Echocardiogram-[facility] Name: JAVIER ROSA Study Date: 09/02/2022 02:01 PM B/P: 125 mmHg/88 mmHg HR: Date of : 1970 Location: [facility] Height: 59 in. Age: 52 year(s) Patient Room: Weight: 169 lb. Gender: Female Patient Status: OutPt BSA: 1.72 m2 Indication: (more content not included)... [facility] 02-10-2023 Note Patient here for 1 m o follow up chronic systolic heart failure and CAD. Lasix was increased to 40mg daily and KCL was added at last apt. She had labs last week. Review of Systems Constitutional: Positive for malaise/fatigue and weight loss (4# since 01/13/23). Cardiovascular: Positive for dyspnea on exertion. Respiratory: Positive for cough, shortness of breath and wheezing. Musculoskeletal: Positive for arthritis. Neurological: Positive for light-headedness. All other systems reviewed and are negative. [facility] 01-13-2023 Note Resolved on echo [facility] 01-13-2023 Note Continue statin [facility] 01-13-2023 Note Coronary artery dise ase is stable without concerning symptoms Continue GDMT Continue cardiac rehab and heart healthy diet [facility] 01-13-2023 Note [facility] II, currently v olume overloaded and weight up 7 pounds Continue GDMT-Continue ASA, entresto, lipitor, coreg, plavix, jardiance and aldactone. Diuretic therapy-increase lasix to 40 mg daily and add KCL 10 meq daily ??? Monitor daily weights, I&O, fluid restriction 1.5-2L/day, renal function and electrolytes- ??? [facility] 01-13-2023 Note HTN currently well c ontrolled Continue current med regime [facility] 01-13-2023 Note [facility] CARDIOLOGY PROGR ESS NOTE HPI: Javier Rosa is a 52 y.o. female here for chronic systolic heart failure, CAD, and LV thrombus. Had echo last month at [facility]. She is down to smoking 1-2 cigarettes a week. Still does cardiac rehab at [facility] 2-3 times a week. Today she admits increased weight, abd swelling, and lung congestion/ wheezing. She is doing quite well in cardiac rehab. Denied chest pain, orthopnea, palpitations. Today her weight is up 7 pounds. Visit Vitals BP 120/68 Pulse 74 Ht 1.473 m (4' 10 ) Wt 79.4 kg (175 lb) SpO2 98% BMI 36.58 kg/m??? OB Status Perimenopausal Smoking Status Former BSA 1.8 m??? Allergies Allergen Reactions Moxifloxacin Anaphylaxis, Hives and Swelling AKA: Avalox Chlorhexidine Gluconate Itching Itching and burning Medications: Current Outpatient Medications on File Prior to Visit Medication Sig Dispense Refill albuterol 90 mcg/actuation inhaler inhale 1 to 2 puffs by mouth and INTO THE LUNGS every 4 to 6 hours if needed aspirin 81 mg chewable tablet Chew 1 tablet (81 mg) in the morning. 30 tablet 11 atorvastatin (Lipitor) 80 mg tablet Take 1 tablet (80 mg) by mouth at bedtime. 90 tablet 3 buPROPion XL (Wellbutrin XL) 300 mg 24 hr tablet Take 300 mg by mouth in the morning. carvedilol (Coreg) 12.5 mg tablet Take 1 tablet (12.5 mg) by mouth with breakfast and with evening meal. 180 tablet 3 clopidogrel (Plavix) 75 mg tablet Take 1 tablet (75 mg) by mouth in the morning. 90 tablet [address] capsule Take 40 mg by mouth in the morning and at bedtime. Jardiance 10 mg Take 1 tablet (10 mg) by mouth in the morning. 90 tablet 3 levothyroxine (Synthroid, Levoxyl) 125 mcg tablet Take 125 mcg by mouth before breakfast. nitroglycerin (Nitrostat) 0.4 mg SL tablet pantoprazole (ProtoNix) 40 mg EC tablet Take 40 mg by mouth before breakfast. Do not crush, chew, or split. sacubitriL-valsartan (Entresto) 49-51 mg tablet Take 1 tablet by mouth in the morning and at bedtime. 60 tablet 0 spironolactone (Aldactone) 25 mg tablet Take 1 tablet (25 mg) by mouth once daily as directed. 90 tablet 3 [DISCONTINUED] furosemide (Lasix) 20 mg tablet Take 1 tablet (20 mg) by mouth once daily as directed. 90 tablet 3 No current facility-administered medications on file prior to visit. Physical Exam: Constitutional: Appearance: Normal appearance. Without apparent distress, chronically ill HENT: Head: Normocephalic and atraumatic. Nose: Nose normal. Mouth/Throat: Mouth: Mucous membranes are moist. Eyes: Extraocular Movements: Extraocular movements intact. Conjunctiva/sclera: Conjunctivae normal. Neck: Vascular: No JVD. Cardiovascular: Rate and Rhythm: Normal rate and regular rhythm. Pulses: Dorsalis pedis pulses are 3 on the right side and 3on the left side. Posterior tibial pulses are 3 on the right side and 3 on the left side. Heart sounds: Normal heart sounds, S1 normal and S2 normal. Pulmonary: Effort: Pulmonary effort is normal. Breath sounds: Scattered wheezes throughout, no rales, rhonchi Abdominal: General: Bowel sounds are normal. Palpations: Abdomen is soft. Musculoskeletal: General: Normal range of motion. Cervical back: Normal range of motion. Right lower leg: No edema. Left lower leg: No edema. Skin: General: Skin is warm and dry. Capillary Refill: Capillary refill takes less than 2 seconds. Neurological: General: No focal deficit present. Mental Status: She is alert and oriented to person, place, and time. Psychiatric: Mood and Affect: Mood normal. Behavior: Behavior normal. Thought Content: Thought content normal. Judgment: Judgment normal. Labs: 12/21/22 renal function remains normal Last lab values have been reviewed CV Testing: AICD interrogation 06/28/22- Battery life 13 years, no ventricular episodes or mode switches. ASVS- ECG 06/08/2022: Normal sinus rhythm, Left axis deviation, Inferior infarct (cited on or before 17-MAY-2022), Anteroseptal infarct (cited on or before 17-MAY-2022), Abnormal ECG Electrophysiology procedure 05/17/2022: Implantation of dual chmaber ICD (ET Water) ECG 08/03/2022: Sinus rhythm with frequent PVCs, anterolateral myocardial infarction age undetermined, inferior myocardial infarction age undetermined. Assessment/Plan: Benign hypertensive cardiomyopathy with heart failure (CMS/HCC) HTN currently well controlled Continue current med regime Chronic systolic heart failure (CMS/HCC) [facility] II, currently volume overloaded and weight up 7 pounds Continue GDMT-Continue ASA, entresto, lipitor, coreg, plavix, jardiance and aldactone. Diuretic therapy-increase lasix to 40 mg daily and add KCL 10 meq daily Monitor daily weights, I&O, fluid restriction 1.5-2L/day, renal function and electrolytes- Coronary arteriosclerosis Coronary artery disease is stable without concerning symptoms Continue GDMT Continue cardiac rehab an (more content not included)... [facility] 01-13-2023 Note Patient here for 1 m o follow up. Her Entresto was increased at last visit. She had BMP on 12/21/2022. Review of Systems Constitutional: Positive for malaise/fatigue and weight gain. Cardiovascular: Positive for dyspnea on exertion. Respiratory: Positive for cough, shortness of breath and wheezing. Musculoskeletal: Positive for arthritis. Neurological: Positive for light-headedness. All other systems reviewed and are negative. [facility] 12-12-2022 Note Pt is here today for a 2 week follow up Review of Systems Constitutional: Positive for malaise/fatigue and weight gain. Respiratory: Positive for cough and shortness of breath. Musculoskeletal: Positive for arthritis. Neurological: Positive for light-headedness. All other systems reviewed and are negative. [facility] 12-12-2022 Note Cardiology Clinic No te Subjective Javier Rosa is a 52 y.o. year old female patient with systolic heart failure, CAD, LV thrombus, and hypertension seen in 2-week follow-up after starting Entresto. being seen for Follow-up (2 week follow up ) Patient Active Problem List Diagnosis Pain of joint of both hands Acute non-ST segment elevation myocardial infarction (CMS/HCC) Coronary arteriosclerosis Hyperlipidemia Left ventricular thrombus Obesity Progressive avascular necrosis of lunate (CMS/HCC) Tobacco user ICD (implantable cardioverter-defibrillator), dual, in situ Chest pain Chronic systolic heart failure (CMS/HCC) Avascular necrosis of bone of wrist (CMS/HCC) Psoriatic arthritis (CMS/HCC) Benign hypertensive cardiomyopathy with heart failure (CMS/HCC) Family History Problem Relation Name Age of Onset Atrial fibrillation Mother Other (pacemaker) Mother Heart attack Father Other (pacemaker) Father Other (aortic valve disorder) Father Social History Tobacco Use Smoking status: Former Years: 35.00 Types: Cigarettes Quit date: 10/19/2022 Years since quittin.1 Smokeless tobacco: Never Substance Use Topics Alcohol use: Not Currently Comment: occasional Drug use: Never HPI Visit of 02/07/2022: Javier is seen as a new patient. The following information is from review of the available medical record. She is a 52-year-old woman. On 01/10/2022 she presented to [facility] with STEMI and was found to have thrombosed LAD and underwent primary PCI with 2 drug-eluting stents. She had significant LV dysfunction with anteroapical akinesis and left ventricular thrombus by echocardiogram. She developed ventricular arrhythmia that were treated with intravenous amiodarone. Today she reports that she has been doing reasonably well. She has shortness of breath on exertion, NYHA class II. No lower extremity edema. No recurrence of angina. She is enrolled in cardiac rehab at the [facility] and doing well with that. Anticoagulation clinic at the [facility] follows her warfarin levels. Testing: ECG 01/13/2022: Normal sinus rhythm, possible inferior infarct, anterolateral infarct. QRS 76 ms. Echocardiogram 01/10/2022: Normal LV size and thickness. Ejection fraction 30 to 35%, distal two thirds of anterior wall and septum are akinetic, distal inferior wall akinetic, moderate sized apical thrombus, mild to moderate valvular aortic stenosis, trace mitral regurgitation, trace tricuspid regurgitation. Blood testing 01/14/2022: BUN 8, creatinine 0.69, GFR more than 60, potassium 4.2. Blood testing 01/11/2022: Cholesterol 108, HDL 43, triglycerides 83, LDL 49. 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 LV ejection fraction 25%. PCI 01/10/2022: Drug-eluting stents 2.5 x 28 mm skypoint, 2.5 x 18 mm Taylors. An intra-aortic balloon pump was placed. Visit of 04/04/2022: She is seen in follow-up. At last visit I started her on Farxiga and spironolactone. Insurance did not cover Farxiga but covered Jardiance. She started it 4 weeks ago. She is in NYHA class II. No angina. No leg edema. She feels occasional palpitations. Blood testing 03/28/2022: Potassium 5.1, BUN 9, creatinine 0.89, ALP 127, bilirubin normal rest of liver enzymes normal, cholesterol 103, triglycerides 86, HDL 39, LDL 47, CBC normal. Echocardiogram 03/31/2022: LV systolic function is moderately reduced with segmental wall motion abnormalities there is akinesis of the mid to distal segments and dyskinesis of the apex. No evidence of left ventricular thrombus seen. LVEF is 30 to 35%, normal RV size and systolic function, mild tricuspid regurgitation, mildly elevated right-sided pressures. Mild to moderate mitral regurgitation. Visit of 07/04/2022: She is seen in follow-up. After last visit and due to persistently reduced left ventricular systolic function less than 35% I referred her to Dr. Alton Avalos for placement of an ICD for primary prevention.This was placed on 05/17/2022. At that time warfarin was stopped. I had her resume aspirin 81 mg daily together with Plavix 75 mg daily. She currently is doing well. She has no chest pain. She does have mild shortness of breath on exertion and mild occasional lower extremity edema. No palpitations. No syncope. The ICD incision site has healed well. No ICD discharges. Visit of 10/03/2022: She is seen in follow-up. At last visit I increased lisinopril to 5 mg daily and referred her to cardiac rehab. I also had her increase carvedilol to 12.5 mg twice daily. she d (more content not included)... [facility] 11-30-2022 Note continue atorvastatin [facility] 11-30-20[address] has [address] st opped due to resolution of her left ventricular thrombus. Echocardiogram with Lumason contrast in August 2022 showed EF 25-30% with no LV thrombus off of warfarin therapy. [facility] 11-30-2022 Note UTP CARDIOLOGY PROGR ESS NOTE HPI: Javier Rosa is a 52 y.o. female here for 3 mo follow up chronic systolic heart failure, CAD, and LV thrombus. Had echo last month at [facility]. She is down to smoking 1-2 cigarettes a week. Denies chest pain, but does get a pain in her left back. Still does cardiac rehab at [facility] 2-3 times a week. Doing well. She is doing quite well in cardiac rehab. Denied chest pain, shortness of breath, orthopnea, palpitations or weight gain/leg swelling. Reviewed vitals log from cardiac rehab- b/p well controlled 97-138/66-82, HR 63-[address] Santa On 01/10/2022 she presented to [facility] with STEMI and was found to have thrombosed LAD and underwent primary PCI with 2 drug-eluting stents. She had significant LV dysfunction with anteroapical akinesis and left ventricular thrombus by echocardiogram. She developed ventricular arrhythmia that were treated with intravenous amiodarone. Today she reports that she has been doing reasonably well. She has shortness of breath on exertion, NYHA class II. No lower extremity edema. No recurrence of angina. She is enrolled in cardiac rehab at the [facility] and doing well with that. Anticoagulation clinic at the [facility] follows her warfarin levels. Testing: ECG 01/13/2022: Normal sinus rhythm, possible inferior infarct, anterolateral infarct. QRS 76 ms. Echocardiogram 01/10/2022: Normal LV size and thickness. Ejection fraction 30 to 35%, distal two thirds of anterior wall and septum are akinetic, distal inferior wall akinetic, moderate sized apical thrombus, mild to moderate valvular aortic stenosis, trace mitral regurgitation, trace tricuspid regurgitation. Blood testing 01/14/2022: BUN 8, creatinine 0.69, GFR more than 60, potassium 4.2. Blood testing 01/11/2022: Cholesterol 108, HDL 43, triglycerides 83, LDL 49. 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 LV ejection fraction 25%. PCI 01/10/2022: Drug-eluting stents 2.5 x 28 mm skypoint, 2.5 x 18 mm Taylors. An intra-aortic balloon pump was placed. Visit of 04/04/2022: She is seen in follow-up. At last visit I started her on Farxiga and spironolactone. Insurance did not cover Farxiga but covered Jardiance. She started it 4 weeks ago. She is in NYHA class II. No angina. No leg edema. She feels occasional palpitations. Blood testing 03/28/2022: Potassium 5.1, BUN 9, creatinine 0.89, ALP 127, bilirubin normal rest of liver enzymes normal, cholesterol 103, triglycerides 86, HDL 39, LDL 47, CBC normal. Echocardiogram 03/31/2022: LV systolic function is moderately reduced with segmental wall motion abnormalities there is akinesis of the mid to distal segments and dyskinesis of the apex. No evidence of left ventricular thrombus seen. LVEF is 30 to 35%, normal RV size and systolic function, mild tricuspid regurgitation, mildly elevated right-sided pressures. Mild to moderate mitral regurgitation. Visit of 07/04/2022: She is seen in follow-up. After last visit and due to persistently reduced left ventricular systolic function less than 35% I referred her to Dr. Alton Avalos for placement of an ICD for primary prevention.This was placed on 05/17/2022. At that time warfarin was stopped. I had her resume aspirin 81 mg daily together with Plavix 75 mg daily. She currently is doing well. She has no chest pain. She does have mild shortness of breath on exertion and mild occasional lower extremity edema. No palpitations. No syncope. The ICD incision site has healed well. No ICD discharges. Visit of 10/03/2022: She is seen in follow-up. At last visit I increased lisinopril to 5 mg daily and referred her to cardiac rehab. I also had her increase carvedilol to 12.5 mg twice daily. she denies chest pain, she has shortness of breath on exertion NYHA class II, she denies palpitations, dizziness, syncope and leg edema. she has good exercise tolerance. There is no claudication. She had an episode of back pain 2 weeks ago that was similar to the pain she had at the time of the MS. This lasted about 2 hours. She did not take s/l nitroglycerin. She continues cardiac rehab. Echocardiogram 09/02/2022: Left Ventricle: The left ventricle is mildly enlarged. Global left ventricular systolic function is severely reduced. EF range is estimated at 25 %-30 %. Left ventricular wall thickness is normal. Regional wall motion abnormalities (see diagram). Grade 2, moderate diastolic dysfunction (pseudonormalized LV filling pattern). Righ (more content not included)... [facility] 11-30-2022 Note Review of Systems Constitutional: Positive for malaise/fatigue. Cardiovascular: Positive for dyspnea on exertion and leg swelling. Negative for chest pain, irregular heartbeat, near-syncope, palpitations and syncope. Respiratory: Positive for cough. Neurological: Positive for dizziness and light-headedness. Negative for headaches. Javier is here for a 2 month follow up. She states she feels good overall; however, does complain of ongoing, but occasional fatigue, dyspnea on exertion, dizziness and light-headedness. Also states she has ongoing edema which goes down with rest. [facility] 11-30-2022 Note Device interrogation q 6 months [facility] 11-30-2022 Note Coronary artery dise ase is stable, no concerning symptoms continue risk factor modifications- heart healthy diet, regular exercise as tolerated and continue all medications. [facility] 11-30-2022 Note NYHC II, currently e uvolemic without exacerbation- Continue GDMT- transition lisinopril to entresto- d/w pt to stop lisinopril and after 2 days she may start taking entresto- repeat BMP in 1 week to assess renal function. Continue ASA, lipitor, coreg, plavix, lasix, jardiance and aldactone. Diuretic therapy- lasix 20 mg daily Monitor daily weights, I&O, fluid restriction 1.5-2L/day, renal function and electrolytes- [facility] 11-30-2022 Note HTN- stable and well controlled [facility] 10-31-2022 Note CARDIAC STRESS TEST Requesting Physician: Deena Santa M.D. Procedure Date:10/31/2022 At baseline, patient had a heart rate of 68 with a blood pressure of 136/86 mm/Hg. At peak with exercise, she achieved heart rate of 144 with a blood pressure of 180/86 mm/Hg, reaching 85% of expected rate. Total exercise time was 5 minutes and 30 seconds, achieving stage 2 and 7 METS. Reason for termination was fatigue. The heart rate recovery was good with no evidence of any chronotropic incompetence. Reviewing the EKG, at baseline, there was sinus rhythm with poor R-wave progression, with evidence of Q-wave in the . With exercise, there was appropriate increase in heart rate. There were isolated PVCs that were noted in the recovery stage. Interestingly, the patient had very poor P-wave morphology in the limb leads. There were significant baseline bursts which made interpretation difficult during the peak; however, there were no obvious ischemic changes that were noted. Additional recovery report sheet attached, show significant T-wave inversions that were noted, compared to baseline. These T-waves were not seen during the baseline and their changes were seen at 8 minutes into recovery and resolution at 14 minutes. IMPRESSION: Inconclusive evidence but, given the presence of T-wave inversions that is noted with exercise, would recommend further recommendations of ischemia and CAD evaluation with invasive stress test. [facility] 10-03-2022 Note ID Cardiology - [facility] Subjective Javier Rosa is a 52 y.o. year old female patient being seen for 3 mo follow up chronic systolic heart failure, CAD, and LV thrombus. Had echo last month at [facility]. She is down to smoking 1-2 cigarettes a week. Denies chest pain, but does get a pain in her left back. Still does cardiac rehab at [facility] 2-3 times a week. Doing well. Patient Active Problem List Diagnosis Pain of joint of both hands Acute non-ST segment elevation myocardial infarction (CMS/HCC) Coronary arteriosclerosis Essential hypertension Hyperlipidemia Left ventricular thrombus Obesity Progressive avascular necrosis of lunate (CMS/HCC) Tobacco user ICD (implantable cardioverter-defibrillator), dual, in situ Chest pain Chronic systolic heart failure (CMS/HCC) Avascular necrosis of bone of wrist (CMS/HCC) Psoriatic arthritis (CMS/HCC) Hypertension Family History Problem Relation Name Age of Onset Atrial fibrillation Mother Other (pacemaker) Mother Heart attack Father Other (pacemaker) Father Other (aortic valve disorder) Father Social History Tobacco Use Smoking status: Every Day Types: Cigarettes Smokeless tobacco: Never Substance Use Topics Alcohol use: Yes Comment: occasional Drug use: Never HPI Visit of 02/07/2022: Javier is seen as a new patient. The following information is from review of the available medical record. She is a 52-year-old woman. On 01/10/2022 she presented to [facility] with STEMI and was found to have thrombosed LAD and underwent primary PCI with 2 drug-eluting stents. She had significant LV dysfunction with anteroapical akinesis and left ventricular thrombus by echocardiogram. She developed ventricular arrhythmia that were treated with intravenous amiodarone. Today she reports that she has been doing reasonably well. She has shortness of breath on exertion, NYHA class II. No lower extremity edema. No recurrence of angina. She is enrolled in cardiac rehab at the [facility] and doing well with that. Anticoagulation clinic at the [facility] follows her warfarin levels. Testing: ECG 01/13/2022: Normal sinus rhythm, possible inferior infarct, anterolateral infarct. QRS 76 ms. Echocardiogram 01/10/2022: Normal LV size and thickness. Ejection fraction 30 to 35%, distal two thirds of anterior wall and septum are akinetic, distal inferior wall akinetic, moderate sized apical thrombus, mild to moderate valvular aortic stenosis, trace mitral regurgitation, trace tricuspid regurgitation. Blood testing 01/14/2022: BUN 8, creatinine 0.69, GFR more than 60, potassium 4.2. Blood testing 01/11/2022: Cholesterol 108, HDL 43, triglycerides 83, LDL 49. 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 LV ejection fraction 25%. PCI 01/10/2022: Drug-eluting stents 2.5 x 28 mm skypoint, 2.5 x 18 mm Taylors. An intra-aortic balloon pump was placed. Visit of 04/04/2022: She is seen in follow-up. At last visit I started her on Farxiga and spironolactone. Insurance did not cover Farxiga but covered Jardiance. She started it 4 weeks ago. She is in NYHA class II. No angina. No leg edema. She feels occasional palpitations. Blood testing 03/28/2022: Potassium 5.1, BUN 9, creatinine 0.89, ALP 127, bilirubin normal rest of liver enzymes normal, cholesterol 103, triglycerides 86, HDL 39, LDL 47, CBC normal. Echocardiogram 03/31/2022: LV systolic function is moderately reduced with segmental wall motion abnormalities there is akinesis of the mid to distal segments and dyskinesis of the apex. No evidence of left ventricular thrombus seen. LVEF is 30 to 35%, normal RV size and systolic function, mild tricuspid regurgitation, mildly elevated right-sided pressures. Mild to moderate mitral regurgitation. Visit of 07/04/2022: She is seen in follow-up. After last visit and due to persistently reduced left ventricular systolic function less than 35% I referred her to Dr. Alton Avalos for placement of an ICD for primary prevention.This was placed on 05/17/2022. At that time warfarin was stopped. I had her resume aspirin 81 mg daily together with Plavix 75 mg daily. She currently is doing well. She has no chest pain. She does have mild shortness of breath on exertion and mild occasional lower extremity edema. No palpitations. No syncope. The ICD incision site has healed well. No ICD discharges. Visit of 10/03/2022: She is seen in follow-up. At last visit I increased lisinopril to 5 mg daily and referred her to cardiac rehab. I also had her increase c (more content not included)... [facility] 01-13-2022 Progress note Note Date/Time January 13, 2022 3:15pm [facility] [address] [place] [address] Cardiology Progress Note Signed Patient: Javier Rosa MR#: [id number] : 1970 Acct:[id number] Age/Sex: 51 / F Adm Date: 2 Loc: Room: [address] [place] [address] Type : ADM IN Attending Dr: Isidra Lagunas DO Copies to: ~ Date of Service: 01/13/2022 Subjective Principal diagnosis: Anterior STEMI Interval history: Stable status post anterior STEMI with revascularization of the proximal throughmid LAD, severe LV dysfunction with evidence of apical thrombus. Patient has had no evidence of arrhythmia or heart failure, is stable off of the amiodarone drip, up in room and ambulating. INR is 1.4. Patient can transfer to for PE on telemetry, continue with ambulation as needed,continue heparin warfarin overlap until INR is 2, and will hopefully discharge within the next 24 to 48 hours Exam Physical Exam Vital Signs: Temp Pulse Resp BP Pulse Ox 98.2 F 66 24 98/61 L 96 01/13/22 12:00 01/13/22 14:00 01/13/22 14:00 01/13/22 14:00 01/13/22 14:00 Const General: cooperative, comfortable and no acute distress Nutritional Appearance: overweight Orientation: alert, awake and oriented x3 HEENT Head: normal to inspection Eyes General: appearance normal, both eyes and all related structures Neck Neck: normal visual inspection Chest Chest palpation & inspection: normal inspection of the chest Resp Effort & Inspection: normal respiratory effort Auscultation: clear to auscultation bilaterally Cardio Rate: regular rate Rhythm: regular rhythm Heart Sounds: S1 normal and S2 normal GI Inspection: obesity Palpation: soft Skin General: no rashes or lesions noted Neuro General: patient alert, patient awake and patient oriented x3 Cognition: normal cognition Speech: speech normal Extrem General: no clubbing, cyanosis or edema Objective Labs CBC & Chem 7: 01/13/22 05:18 Labs: Laboratory Results - last 24 hr 01/12/22 01/12/22 01/13/22 14:44 21:59 05:18 PT INR APTT 44.2 H 53.0 H PHA Creatinine Clear 98.31 Sodium 131 L Potassium 4.0 Chloride 100 Carbon Dioxide 22.1 BUN 9 Creatinine 0.65 Est GFR ( Amer) > 60 Est GFR (Non-Af Amer) > 60 Glucose 100 Calcium 8.3 01/13/22 01/13/22 05:18 12:10 PT 15.3 H INR 1.4 APTT 80.7 H 54.7 H PHA Creatinine Clear Sodium Potassium Chloride Carbon Dioxide BUN Creatinine Est GFR ( Amer) Est GFR (Non-Af Amer) Glucose Calcium A&P - Cardiology (1) ST elevation myocardial infarction (STEMI) of inferolateral wall: Code(s): I21.19 - ST elevation (STEMI) myocardial infarction involving other coronary artery of inferior wall Status: Acute Plan: Remove IABP Initiate afterload reduction therapies, (2) Hyperlipidemia: Code(s): E78.5 - Hyperlipidemia, unspecified Status: Acute (3) Essential hypertension: Code(s): I10 - Essential (primary) hypertension Status: Acute (4) Left ventricular thrombus: Code(s): I51.3 - Intracardiac thrombosis, not elsewhere classified Status: Acute Documented By: Isidra Lagunas DO 01/13/22 151 Signed By: <Electronically signed by Isidra Lagunas DO> 01/13/22 [facility] Work Phone: 1(313) 520-538506-01-2022 Progress note Author sIidra Lagunas [facility] January 12, 2022 3:16pm Note Date/Time January 12, 2022 3:16p m [facility] [address] [place] [address] Cardiology Progress Note Signed Patient: Javier Rosa MR#: [id number] : 1970 Acct:[id number] Age/Sex: 51 / F Adm Date: 2 Loc: Room: [address] [place] [address] Type : ADM IN Attending Dr: Isidra Lagunas DO Copies to: ~ Date of Service: 01/12/2022 Subjective Principal diagnosis: Anterior STEMI Interval history: Stable, hemodynamically stable, no evidence of recurrent ventricular arrhythmiasbut remains on intravenous amiodarone. No evidence of CHF at the time Review of echo again reveals ejection fraction 30 to 35% with moderate size apical thrombus and akinetic to dyskinetic anteroseptal and anterior estrada Currently patient is undergoing warfarin titration with ongoing heparin bridge, will reinstitute low-dose afterload reduction therapies, discontinue amiodarone and follow her rhythm. Once INR reaches 2, we can consider discharge. Exam Physical Exam Vital Signs: Temp Pulse Resp BP Pulse Ox 97.2 F L 82 20 101/61 96 01/12/22 12:00 01/12/22 14:00 01/12/22 14:00 01/12/22 14:00 01/12/22 14:00 Const General: cooperative, comfortable and no acute distress Nutritional Appearance: overweight Orientation: alert, awake and oriented x3 HEENT Head: normal to inspection Eyes General: appearance normal, both eyes and all related structures Neck Neck: normal visual inspection Chest Chest palpation & inspection: normal inspection of the chest Resp Effort & Inspection: normal respiratory effort Auscultation: clear to auscultation bilaterally Cardio Rate: regular rate Rhythm: regular rhythm Heart Sounds: S1 normal and S2 normal GI Inspection: obesity Palpation: soft Skin General: no rashes or lesions noted Neuro General: patient alert, patient awake and patient oriented x3 Cognition: normal cognition Speech: speech normal Extrem General: no clubbing, cyanosis or edema Objective Labs CBC & Chem 7: 01/12/22 05:11 Labs: Laboratory Results - last 24 hr 01/11/22 01/11/22 01/11/22 17:39 17:56 22:08 PT 12.3 INR 1.1 APTT PHA Creatinine Clear Sodium Potassium Chloride Carbon Dioxide BUN Creatinine Est GFR ( Amer) Est GFR (Non-Af Amer) Glucose POC Glucose 135 118 POC Glucose Comment Glu2: cleaned meter Calcium 01/12/22 01/12/22 01/12/22 00:35 00:35 05:11 PT 13.4 H INR 1.2 APTT 44.5 H PHA Creatinine Clear 111.20 Sodium 131 L D Potassium 3.3 L Chloride 99 Carbon Dioxide 22.6 BUN 5 L Creatinine 0.58 Est GFR ( Amer) > 60 Est GFR (Non-Af Amer) > 60 Glucose 115 H POC Glucose POC Glucose Comment Calcium 8.4 01/12/22 01/12/22 05:11 07:16 PT 13.9 H 13.6 H INR 1.2 1.2 APTT 51.3 H PHA Creatinine Clear Sodium Potassium Chloride Carbon Dioxide BUN Creatinine Est GFR ( Amer) Est GFR (Non-Af Amer) Glucose POC Glucose POC Glucose Comment Calcium A&P - Cardiology (1) ST elevation myocardial infarction (STEMI) of inferolateral wall: Code(s): I21.19 - ST elevation (STEMI) myocardial infarction involving other coronary artery of inferior wall Status: Acute Plan: Remove IABP Initiate afterload reduction therapies, (2) Hyperlipidemia: Code(s): E78.5 - Hyperlipidemia, unspecified Status: Acute (3) Essential hypertension: Code(s): I10 - Essential (primary) hypertension Status: Acute (4) Left ventricular thrombus: Code(s): I51.3 - Intracardiac thrombosis, not elsewhere classified Status: Acute Documented By: Isidra Lagunas DO 01/12/22 1514 Signed By: <Electronically signed by Isidra Lagunas DO> 01/12/22 [facility] Work Phone: [phone]) 370-141805-31-2022 Progress note Author Isidra Lagunas [facility] January 11, 2022 1:38pm Note Date/Time January 11, 2022 1:38p [facility] [address] [place] [address] Cardiology Progress Note Signed Patient: Javier Rosa MR#: [id number] : 1970 Acct:[id number] Age/Sex: 51 / F Adm Date: 2 Loc: Room: [address] [place] [address] Type : ADM IN Attending Dr: Isidra Lagunas DO Copies to: ~ Date of Service: 01/11/2022 Subjective Principal diagnosis: Anterior STEMI Interval history: Patient is improved with hypertensive indices noted on balloon pump measurementstoday. She is alert and oriented without any evidence of cardiogenic shock or pulmonary edema at this time Balloon pump was removed without incident (see separate report), FemoStop applied for 2 hours. I was notified during the procedure that left ventricle demonstrates acute left ventricular apical thrombus. Because of this we will need to initiate warfarin with heparin overlap, switch to clopidogrel and discontinue Brilinta, and will continue with combination clopidogrel and warfarin indefinitely. Afterload reduction therapies will be initiated Exam Physical Exam Vital Signs: Temp Pulse Resp BP Pulse Ox 97.1 F L 95 H 25 H 129/86 93 L 01/11/22 12:00 01/11/22 12:53 01/11/22 12:53 01/11/22 12:00 01/11/22 12:00 Const General: cooperative and no acute distress Nutritional Appearance: overweight Orientation: alert, awake and oriented x3 HEENT Head: normal to inspection Eyes General: appearance normal, both eyes and all related structures Neck Neck: normal visual inspection Chest Chest palpation & inspection: normal inspection of the chest Resp Effort & Inspection: normal respiratory effort Auscultation: clear to auscultation bilaterally Cardio Rate: regular rate Rhythm: regular rhythm Heart Sounds: S1 normal and S2 normal GI Inspection: obesity Palpation: soft Skin General: no rashes or lesions noted Neuro General: patient alert, patient awake and patient oriented x3 Cognition: normal cognition Speech: speech normal Extrem General: no clubbing, cyanosis or edema Objective Labs CBC & Chem 7: 01/11/22 05:36 Labs: Laboratory Results - last 24 hr 01/10/22 01/10/22 01/10/22 13:12 15:29 17:08 APTT PHA Creatinine Clear Sodium Potassium Chloride Carbon Dioxide BUN Creatinine Est GFR ( Amer) Est GFR (Non-Af Amer) Glucose POC Glucose 139 Calcium Magnesium Total Bilirubin AST ALT Alkaline Phosphatase Troponin I High Sens 34081 H* Total Protein Albumin Globulin Albumin/Globulin Ratio Triglycerides Cholesterol LDL Cholesterol, Calc VLDL Cholesterol HDL Cholesterol Cholesterol/HDL Ratio 01/10/22 01/10/22 01/10/22 17:11 17:11 17:11 APTT 50.4 H PHA Creatinine Clear 90.46 Sodium 130 L Potassium 3.8 Chloride 99 Carbon Dioxide 20.2 L BUN 9 Creatinine 0.72 Est GFR ( Amer) > 60 Est GFR (Non-Af Amer) > 60 Glucose 137 H POC Glucose Calcium 8.7 Magnesium 2.0 Total Bilirubin AST ALT Alkaline Phosphatase Troponin I High Sens 648100 H* Total Protein Albumin Globulin Albumin/Globulin Ratio Triglycerides Cholesterol LDL Cholesterol, Calc VLDL Cholesterol HDL Cholesterol Cholesterol/HDL Ratio 01/10/22 01/10/22 01/10/22 20:42 21:57 23:37 APTT PHA Creatinine Clear Sodium Potassium Chloride Carbon Dioxide BUN Creatinine Est GFR ( Amer) Est GFR (Non-Af Amer) Glucose POC Glucose 148 Calcium Magnesium Total Bilirubin AST ALT Alkaline Phosphatase Troponin I High Sens 214635 H* 799017 H* Total Protein Albumin Globulin Albumin/Globulin Ratio Triglycerides Cholesterol LDL Cholesterol, Calc VLDL Cholesterol HDL Cholesterol Cholesterol/HDL Ratio 01/10/22 01/11/22 01/11/22 23:37 05:36 05:36 APTT 53.9 H PHA Creatinine Clear 93.47 Sodium 125 L Potassium 3.4 L Chloride 96 Carbon Dioxide 18.5 L BUN 7 L Creatinine 0.69 Est GFR ( Amer) > 60 Est GFR (Non-Af Amer) > 60 Glucose 131 H POC Glucose Calcium 8.3 Magnesium Total Bilirubin 0.6 AST 212 H ALT 58 Alkaline Phosphatase 85 Troponin I High Sens 95301 H* Total Protein 6.0 L Albumin 2.9 L Globulin 3.1 Albumin/Globulin Ratio 0.9 Triglycerides 83 Cholesterol 109 L LDL Cholesterol, Calc 49 VLDL Cholesterol 16 HDL Cholesterol 43 Cholesterol/HDL Ratio 2.5 01/11/22 01/11/22 01/11/22 05:36 07:37 11:28 APTT 41.3 H PHA Creatinine Clear Sodium Potassium Chloride Carbon Dioxide BUN Creatinine Est GFR ( Amer) Est GFR (Non-Af Amer) Glucose POC Glucose 126 128 Calcium Magnesium Total Bilirubin AST ALT Alkaline Phosphatase Troponin I High Sens Total Protein Albumin Globulin Albumin/Globulin Ratio Triglycerides Cholesterol LDL Cholesterol, Calc VLDL Cholesterol HDL Cholesterol Cholesterol/HDL Ratio 01/11/22 12:23 APTT 43.1 H PHA Creatinine Clear Sodium Potassium Chloride Carbon Dioxide BUN Creatinine Est GFR ( Amer) Est GFR (Non-Af Amer) Glucose POC Glucose Calcium Magnesium Total Bilirubin AST ALT Alkaline Phosphatase Troponin I High Sens Total Protein Albumin Globulin Albumin/Globulin Ratio Triglycerides Cholesterol LDL Cholesterol, Calc VLDL Cholesterol HDL Cholesterol Cholesterol/HDL Ratio A&P - Cardiology (1) ST elevation myocardial infarction (STEMI) of inferolateral wall: Code(s): I21.19 - ST elevation (STEMI) myocardial infarction involving other coronary artery of inferior wall Status: Acute Plan: Remove IABP Initiate afterload reduction therapies, (2) Hyperlipidemia: Code(s): E78.5 - Hyperlipidemia, unspecified Status: Acute (3) Essential hypertension: Code(s): I10 - Essential (primary) hypertension Status: Acute (4) Left ventricular thrombus: Code(s): I51.3 - Intracardiac thrombosis, not elsewhere classified Status: Acute Documented By: Isidra Lagunas DO 01/11/22 1334 Signed By: <Electronically signed by Isidra Lagunas DO> 01/11/22 1338 [facility] Work Phone: 1(665) 739-229505-30-2022 History and physical note Author Isidra Lagunas [facility] January 10, 2022 12:14pm Note Date/Time January 10, 2022 10:30 am [facility] [address] [place] [address] Cardiology H&P Signed Patient: Javier Rosa MR#: [id number] : 1970 Acct:[id number] Age/Sex: 51 / F Adm Date: 2 Loc: Room: Type: [facility] Attending Dr: Isidra Lagunas DO Copies to: NON STAFF Isidra Lagunas DO~ Date of Service: 01/10/2022 Cardiology HPI History of Present Illness Chief complaint: Inferolateral STEMI HPI: Ms. Rosa is a 51 year old female transferred from [facility] emergency room this morning after receiving phone call from Dr. Katz and reviewing electronic transmitted media and discussion about the clinical case. Patient presented with severe chest discomfort with no prior history of cardiac illness or intervention. ECGs reveal sinus rhythm with inferolateral ST elevation injury current. She was admitted restarted upstream antiplatelet and Antithrombin therapy, and transferred to the [facility] emergently. Patient arrived at [facility] ER at 0924, first ECG transmitted to ut was 0948, [facility] team was activated at 0952, patient was transferred by ground, arrived in [facility] at 1033 and underwent primary PCI at 1051. She presents with normal sinus rhythm, normotensive with no evidence of heart failure, however, during procedure after arrival patient's hemodynamic and rhythm status deteriorated, necessitating further interventions. Comorbidities/past medical history only noted for hyperlipidemia and hypertension and mild exogenous obesity, and current tobacco use approximately apack a day, presumptively COPD. Medications, family history are otherwise currently unknown A total of 60 minutes nonprocedural critical care time were devoted to the outside ER staff, review of electronic transmitted media, [facility] staff, nursing staff and family both pre and post procedurally. Patient had evidence of impending cardiogenic shock during the procedure along with nonsustained ventricular arrhythmias that were treated with 150 mg bolus ofamiodarone and placement of intra-aortic balloon pump for hemodynamic support, during and following complex LAD intervention. Review of Systems Review of Systems All other systems reviewed & are negative unless noted below or in HPI Constitutional Constitutional: Reports as per HPI ENT Ears, Nose, Mouth, and Throat: Reports system reviewed and no additional complaints, except as documented Cardiovascular Cardiovascular: Reports as per HPI and Reports chest pain at rest Respiratory Respiratory: Reports system reviewed and no additional complaints, except as documented Gastrointestinal Gastrointestinal: Reports nausea and Reports vomiting Musculoskeletal Musculoskeletal: Reports system reviewed and no additional complaints, except asdocumented Integumentary/Breasts Skin/Breast: Reports system reviewed and no additional complaints, except as documented Neurologic Neurologic: Reports system reviewed and no additional complaints, except as documented PMFSH Vaccinated for COVID-19?: Unknown Exam Const General: cooperative and acute distress Nutritional Appearance: overweight Orientation: alert, awake and oriented x3 HEENT Head: normal to inspection Neck Neck: normal visual inspection Chest Chest palpation & inspection: normal inspection of the chest Resp Effort & Inspection: normal respiratory effort Auscultation: clear to auscultation bilaterally Cardio Rate: regular rate Rhythm: regular rhythm Heart Sounds: S1 normal and S2 normal GI Inspection: obesity Palpation: soft Skin General: no rashes or lesions noted Neuro General: patient alert, patient awake and patient oriented x3 Cognition: normal cognition Speech: speech normal Extrem General: no clubbing, cyanosis or edema Results Labs Lab results: Intake and Output 01/09/22 01/10/22 01/10/22 23:59 07:59 15:59 Other: Weight 80 kg Patient Weight 01/10/22 23:59 Weight 80 kg EKG Interpretations EKG EKG results cardiology: sinus rhythm Blocks, axis, hypertrophy, ST abn Repolarization changes or abnormalities: ST suggestive of injury MS, pacemaker, normal Myocardial infarction: inferior MS (acute or recent) and lateral MS (acute or recent) A&P - Cardiology (1) ST elevation myocardial infarction (STEMI) of inferolateral wall: Code(s): I21.19 - ST elevation (STEMI) myocardial infarction involving other coronary artery of inferior wall (2) Hyperlipidemia: Code(s): E78.5 - Hyperlipidemia, unspecified (3) Essential hypertension: Code(s): I10 - Essential (primary) hypertension Documented By: Isidra Lagunas DO 01/10/22 1026 Signed By: <Electronically signed by Isidra Lagunas DO> 01/10/22 1214 [facility] Work Phone: [phone]) 635-554805-30-2022 Procedure [facility]05-30-2022 [facility]Day[facility] CenterChief complaint Narrative - Reported* 51-year-old female returns for transitional care management office visit following recent large anterior MS with associated cardiogenic shock and primary revascularization of the LAD, details of which are reviewed. She had intra-aortic balloon pump counterpulsation for 24 hours, subsequent diagnosis of LV thrombus with reduced LV function. She was transition to clopidogrel warfarin, aspirin triple therapy. She did have brief episodes of bobbi-MS/postoperative VT that stabilized on amiodarone andthen we withdrew amiodarone with no further episodes of VT. * She is otherwise doing well with no recurrence of angina, shortness of breath she is discontinued smoking altogether, she has had no syncope or repeat hospitalizations or nitrate usage * We have counseled her on continued abstention from tobacco, compliance of medical therapies, follow-up with echo imaging and rhythm assessment and clinical evaluation as well as potential medication titrations in the future. * Will proceed with echocardiogram in 8 weeks to assess for LV thrombus, initiate low-level stress test and then cardiac rehab imminently, follow-up with nurse practitioner in 10 to 12 weeks and myselfin approximately 4 months -[facility] 250 DO Work Phone: Chief complaint Narrative - Reported* 51-year-old female returns for transitional care management office visit following recent large anterior MS with associated cardiogenic shock and primary revascularization of the LAD, details of which are reviewed. She had intra- aortic balloon pump counterpulsation for 24 hours, subsequent diagnosis of LV thrombus with reduced LV function. She was transition to clopidogrel warfarin, aspirin triple therapy. She did have brief episodes of bobbi-MS/postoperative VT that stabilized on amiodarone andthen we withdrew amiodarone with no further episodes of VT. * She is otherwise doing well with no recurrence of angina, shortness of breath she is discontinued smoking altogether, she has had no syncope or repeat hospitalizations or nitrate usage * We have counseled her on continued abstention from tobacco, compliance of medical therapies, follow-up with echo imaging and rhythm assessment and clinical evaluation as well as potential medication titrations in the future. * Will proceed with echocardiogram in 8 weeks to assess for LV thrombus, initiate low-level stress test and then cardiac rehab imminently, follow-up with nurse practitioner in 10 to 12 weeks and myselfin approximately 4 months [facility] Work Phone: Chief complaint Narrative - Reported* 51-year-old female returns for transitional care management office visit following recent large anterior MS with associated cardiogenic shock and primary revascularization of the LAD, details of which are reviewed. She had intra- aortic balloon pump counterpulsation for 24 hours, subsequent diagnosis of LV thrombus with reduced LV function. She was transition to clopidogrel warfarin, aspirin triple therapy. She did have brief episodes of bobbi-MS/postoperative VT that stabilized on amiodarone andthen we withdrew amiodarone with no further episodes of VT. * She is otherwise doing well with no recurrence of angina, shortness of breath she is discontinued smoking altogether, she has had no syncope or repeat hospitalizations or nitrate usage * We have counseled her on continued abstention from tobacco, compliance of medical therapies, follow-up with echo imaging and rhythm assessment and clinical evaluation as well as potential medication titrations in the future. * Will proceed with echocardiogram in 8 weeks to assess for LV thrombus, initiate low-level stress test and then cardiac rehab imminently, follow-up with nurse practitioner in 10 to 12 weeks and myselfin approximately 4 months [facility] Work Phone: Evaluation note* Diagnosis Onset Date Resolution Status Essential hypertension acute Hyperlipidemia acute Left ventricular thrombus ac jalil ST elevation myocardial infa rction (STEMI) of inferolateral wall acute [facility] Work Phone: Hospital Discharge instructions Additional Instructions [facility] to manage your Coumadin dosing and lab draws. DISCHARGE INSTRUCTIONS FOR ANGIOPLASTY/CORONARY/PERIPHERAL/STENT IMPLANT FOR ADULT ANTICOAGULATION -Since the greatest risk of a blood clot forming with the stent occurs in the first 2-3 weeks after implantation, you will need to take anticoagulants for at least 12-18 months. ANTICOAGULATION MEDICATION Aspirin 81mg once a day, Clopidogrel (Plavix) 75mg one tablet STATIN MEDICATION Atorvastatin (Lipitor) 80 mg Daily Drug-Eluting Stent (KATIE) DO NOT discontinue Plavix/Aspirin during the first few months regardless of what you are advised by your family doctor or pharmacist, without first calling the cardiology consultants who implanted the stent. If you require pain relief during this time, please take only ACETAMINOPHEN (TYLENOL)- NO additional aspirin or ibuprofen. DISCHARGE ACTIVITIES ARE FOLLOWS: First week after discharge: -Take it easy at home, no strenuous activity. -Do not lift or pull objects over 10-15 pounds, including children, and groceries for four weeks. If puncture site is at wrist do NOT lift more than three pounds for three days. - May walk up stairs. -May shower. -No excessive scrubbing of the affected site (groin). -May ride in car. -May resume sexual intercourse after 1-2 weeks. -No MRI for 12 days. -May drive in 4-7 days. -If puncture site is at the wrist do not manipulate the wrist for 24 hours, and no soaking wrist for three days. Second Week: -May take a bath -May start walking 3 times a week for 15-20 minutes at a leisurely pace. You should be able to carry on a conversation comfortably without feeling winded. -No strenuous activity as in jogging, running, weight lifting, stair steppers, etc. until the cardiology consultants approves these activities. Check with the cardiology consultants on your first follow-up visit. CALL YOUR PHYSICIAN at [phone]: -If bleeding should occur from the catheter insertion site- apply pressure to the site then immediately call us. -Report any fever, redness, drainage, increased swelling, or firmness at the catheter insertion site. Some bruising or slight swelling may be present at the time of discharge. -Should arm or leg become cold, numb, white, or blue, contact the cardiology consultants immediately. -IF you should experience episodes of angina, e.g. chest discomfort, heaviness, tightness, pressure burning with or without radiation to the neck, jaw, arms or back- use 1 Nitrostat tablet under your tongue every 5-10 minutes and up to three tablets. IF NO RELIEF, CALL 911 or GO TO THE NEAREST EMERGENCY ROOM. -Please notify our office if you have recurrent angina. -[Cardiac Rehab Education Provided. Participation in the Cardiopulmonary Rehabilitation program is recommended. Please call Central Scheduling at [phone] to schedule your appointment.] The attending cardiology consultants or [facility] nurse clinician should provide you with specific instructions regarding activity, diet, medications, and further follow up for you. Follow the medication instructions provided on your discharge. If the dosages and instructions on this sheet differ from the dosage and instructions on the bottle, follow the instructions on the bottle. [facility] is not responsible for incorrect prescription information provided by the patient during their visit. Do not stop your medications without consulting your health care provider. Please take the list with you to your next doctor's appointment.[facility] Work Phone: Summary Purpose Family History No Family History Records FoundUnknown Family Member Name Dates Details Family history of cardiac di sorder: Father, Mother(V17.49, Z82.49) Status:Active Family history of diabetes m ellitus: Father(V18.0, Z83.3) Status:Active Family history of myocardial infarction: Father(V17.3, Z82.49) Status:Active Family history of cardiac pa cemaker: Mother, Father(V17.49, Z82.49) Status:Active Family history of hyperlipid emia: Brother(V18.19, Z83.438) Status:Active Relationship Condition Age at Onset Recorded Date/T myla Not Specified Heart disease Unknown father Heart disease Unknown Unknown Family Member Name Dates Details Family history of cardiac di sorder: Father, Mother(V17.49, Z82.49) Status:Active Family history of diabetes m ellitus: Father(V18.0, Z83.3) Status:Active Family history of myocardial infarction: Father(V17.3, Z82.49) Status:Active Family history of cardiac pa cemaker: Mother, Father(V17.49, Z82.49) Status:Active Family history of hyperlipid emia: Brother(V18.19, Z83.438) Status:Active Unknown Family Member Name Dates Details Family history of cardiac di sorder: Father, Mother(V17.49, Z82.49) Status:Active Family history of diabetes m ellitus: Father(V18.0, Z83.3) Status:Active Family history of myocardial infarction: Father(V17.3, Z82.49) Status:Active Family history of cardiac pa cemaker: Mother, Father(V17.49, Z82.49) Status:Active Family history of hyperlipid emia: Brother(V18.19, Z83.438) Status:Active Unknown Family Member Name Dates Details Family history of cardiac di sorder: Father, Mother(V17.49, Z82.49) Status:Active Family history of diabetes m ellitus: Father(V18.0, Z83.3) Status:Active Family history of myocardial infarction: Father(V17.3, Z82.49) Status:Active Family history of cardiac pa cemaker: Mother, Father(V17.49, Z82.49) Status:Active Family history of hyperlipid emia: Brother(V18.19, Z83.438) Status:Active Advance Directives No Advanced Directives Records Found Advance Directive Response Recorded Date/ Time Advance Directives No January 10 11:43am Chief Complaint and Reason for Visit Chief Complaint stemi Reason for Visit Essential hypertensi on Hyperlipidemia Left ventricular thrombus ST elevation myocardial infarction (STEMI) of inferolateral wall Additional Source Comments INFORMATION SOURCE (unrecogn ized section and content) DATE CREATED AUTHOR 09/11/2021 [facility] DATE CREATED AUTHOR AUTHOR'S ORGANIZ ATION 03/09/2022 [facility] DATE CREATED AUTHOR AUTHOR'S ORGANIZ ATION 09/17/2022 [facility] DATE CREATED AUTHOR AUTHOR'S ORGANIZ ATION 12/25/2022 [facility] DATE CREATED AUTHOR AUTHOR'S ORGANIZ ATION 07/31/2023 [facility] Care Teams (unrecognized sec tion and content) Team Status: Inactive Member Role Status Dates W Clarke Bebo , DO Admit Provider, Attending Provide r Active NON STAFF Primary Care Provider Active Team Status: Active Member Role Status Dates NON STAFF Primary Care Provider Active FOR RECORDS PERTAINING TO PATIENTS WHO ARE OR HAVE BEEN ENROLLED IN A CHEMICAL DEPENDENCY/SUBSTANCEABUSE PROGRAM, SOME INFORMATION MAY BE OMITTED. This clinical summary was aggregated from multiple sources. Caution should be exercised in using it in the provision of clinical care. This summary normalizes information from multiple sources, and as a consequence, information in this document may materially change the coding, format and clinical context of patient data. In addition, data may be omitted in some cases. CLINICAL DECISIONS SHOULD BE BASED ON THE PRIMARY CLINICAL RECORDS. [facility]. provides no warranty or guarantee of the accuracy or completeness of information in this document.
--- NOTE | 2023-09-04 10:00 | CA_ITS ---
Patient Name: JAVIER LINK MR#: [id number] : 1970 Exam Date: 09/04/2023 Ordering Doctor: DR DEENA BENTON M.D. ECHOCARDIOGRAM REPORT PROCEDURE: CA ECHO W/ CON INDICATIONS: Chronic systolic heart failure, Intracardiac thrombus COMPARISON: None. DESCRIPTION: COMPLETE ECHOCARDIOGRAM Real-time transthoracic echocardiography with 2D, M-mode, spectral and color flow Doppler performed. QUALITY: Lumason contrast was administered due to suboptimal imaging for left ventricular opacification to improve delineation of endocardial boarders. LEFT VENTRICLE: Normal chamber size. Normal left ventricular wall thickness. LV EF: Global left ventricular systolic function is moderately decreased. Calculated left ventricular ejection fraction is 30-35%. The distal two thirds of the anteroseptum, the apex and distal inferolateral estrada are akinetic. No evidence of thrombus identified in the left ventricle. DIASTOLIC: Grade 2, moderate diastolic dysfunction. ATRIAL SEPTUM: Inadequately seen. LEFT ATRIUM: Normal chamber size. RIGHT ATRIUM: Normal chamber size. Pacer wire present. RIGHT VENTRICLE: Normal chamber size. Normal right ventricular systolic function. Pacer wire present. TRICUSPID VALVE: Normal mobility and thickness. No stenosis with trivial regurgitation. No evidence of pulmonary hypertension. RVSP 20mmHg MITRAL VALVE: Normal mobility and thickness. No evidence of mitral valve stenosis. There is no mitral annular calcification. Trivial mitral regurgitation. AORTIC VALVE: Normal trileaflet appearance. Mildly calcified aortic valve. Doppler velocity suggests mild aortic valve stenosis. DVI 0.4, LANDY 1.0cm2, Vmax 210m/s, Mean gradient 10mmHg.No aortic regurgitation. AORTIC ROOT: Normal diameter and appearance. PULMONIC VALVE: Grossly normal. No stenosis. No regurgitation. PERICARDIUM: No evidence of pericardial effusion. IVC: Collapses with inspirations. Normal size. CONCLUSION: 1. Global left ventricular systolic function is moderately reduced; visually estimated ejection fraction of 30 to 35% 2. Segmental wall motion abnormality seen; no evidence of left ventricular thrombus 3. The right ventricle is normal in size and systolic function 4. Grade 2, moderate diastolic dysfunction 5. Mild aortic valve stenosis Adult Echocardiography Procedure Report Left Ventricle LVEDD (3.7 - 5.6 cm): 5.12 cm LVESD (2.2 - 4.0 cm): 3.90 cm LVIVS thickness (0.6 - 1.2 cm): 0.98 cm LVPW thickness (0.5 - 1.0 cm): 0.89 cm e': 0.05 m/s E - e': 17.20 LVOT Max Gradient: 2.25 mm[Hg] LVOT Area (cm2): 0.75 m/s Peak Velocity (LVOT): 0.75 m/s Mean Velocity (LVOT): 0.55 m/s LVOT Diameter 1.85 cm Left Ventricular Ejection Fraction: 34.56 % Left Atrium LA Volume Index (2D A2C): 30.46 ml/m2 Left Atrium Systolic Dimension: 4.28 cm Mitral Valve MV E to A Ratio: 0.94 Mitral Valve A-Wave Peak Velocity: 0.87 m/s Mitral Valve E-Wave Peak Velocity: 0.82 m/s Right Ventricle RV Internal Diastolic Dimension: 3.00 cm Aorta AO Root Diam: 2.70 cm Ascending Ao Diam: 2.44 cm Aortic Valve AoV Area (Peak Mariano): 1.00 cm2, 0.96 cm2 AoV Area (VTI): 1.07 cm2, 1.01 cm2 Peak Velocity(Antegrade Flow): 2.10 m/s, 2.10 m/s, 1.97 m/s, 1.93 m/s Peak Gradient(Antegrade Flow): 17.67 mm[Hg], 17.67 mm[Hg], 15.53 mm[Hg], 14.91 mm[Hg] Mean Velocity(Antegrade Flow): 1.45 m/s, 1.44 m/s, 1.34 m/s, 1.28 m/s Mean Gradient(Antegrade Flow): 9.72 mm[Hg], 9.57 mm[Hg], 8.33 mm[Hg], 7.68 mm[Hg] Velocity Time Integral: 47.57 cm, 45.27 cm, 44.39 cm, 42.45 cm Tricuspid Valve Peak Velocity (Regurgitant Flow): 1.83 m/s, 2.03 m/s Pulmonic Valve Mean Gradient: 2.42 mm[Hg] Mean Velocity: 0.70 m/s Peak Velocity: 1.13 m/s, 1.31 m/s Peak Gradient: 5.08 mm[Hg], 6.82 mm[Hg] Right Atrium Right Atrium Systolic Pressure: 26.56 ml, 26.56 ml Dictated by: Brian Chamorro M.D. on 09/05/2023 at 10:05 Approved by: Brian Chamorro M.D. on 09/05/2023 at 10:11
[2023-09-04] MEDS: SULFUR HEXAFLUORIDE MICROSPHR 25 MG (5ML VIAL) IV (11:01)
== END 2023-09-04 07:52 | disposition home or self-care (01) ==
LOC: CARD 07:52
PROVIDERS: PCP Nurse Practitioner Family; Visit Provider Internal Medicine Interventional Cardiology
DX: I50.22 Chronic systolic (congestive) heart failure (principal); I51.3 Intracardiac thrombosis, not elsewhere classified
CPT/HCPCS: C8929; Q9950

== ENCOUNTER 2024-05-03 10:02 | Outpatient (OUT) | payer MEDICARE, SELFPAY ==
[2024-05-03 10:31] LABS: Basophils Percent Auto 0.4 % (0.2-2.0); Eosinophils Absolute Auto 0.1 10^3/uL (0.0-0.7); Eosinophils Percent Auto 0.6 % (0.9-7.0); Hematocrit 38.6 % (36.0-48.0); Hemoglobin 13.2 g/dL (12.0-16.0); Immature Granulocytes Abs Auto 0.03 10^3/uL (0.00-0.03); Immature Granulocytes Pct Auto 0.3 % (0.0-0.5); Lymphocytes Absolute Auto 1.1 10^3/uL (1.2-3.8); Lymphocytes Percent Auto 10.6 % (20.5-60.0); Mean Corpuscular HGB Conc 34.2 g/dL (29.9-35.2); Mean Corpuscular Hemoglobin 31.8 pg (26.7-34.0); Mean Platelet Volume 10.3 fL (9.5-13.5); Monocytes Absolute Auto 1.4 10^3/uL (0.3-0.8); Monocytes Percent Auto 12.8 % (1.7-12.0); Neutrophils Absolute Auto 7.9 10^3/uL (1.4-6.5); Neutrophils Percent Auto 75.3 % (43.0-75.0); Platelet Count 167 10^3/uL (150-450); Red Blood Count 4.15 10^6/uL (4.20-5.40); Red Cell Distribution Width 12.2 % (11.0-15.0); White Blood Count 10.5 10^3/uL (4.0-11.0)
[2024-05-03 11:25] LABS: Estimated Average Glucose 100 mg/dL; Glycohemoglobin A1C 5.1 % (4.5-6.2)
[2024-05-03 11:44] LABS: Alanine Aminotransferase 31 U/L (14-59); Albumin Globulin Ratio 0.7; Albumin Level 2.9 g/dL (3.4-5.0); Alkaline Phosphatase 104 U/L (46-116); Aspartate Amino Transferase 26 U/L (15-37); BUN Creatinine Ratio 12.9; Bilirubin Total 0.6 mg/dL (0.2-1.0); Calcium 9.3 mg/dL (8.5-10.1); Chloride 93 mmol/L (98-107); Cholesterol 90 mg/dL (<=200); Estimated GFR (African America 59 (>=60); Estimated GFR (Non-African Ame 49 (>=60); Free T3 1.52 pg/mL (2.18-3.98); Globulin 4.4 g/dL; HDL Cholesterol 18 mg/dL (40-60); Potassium 4.2 mmol/L (3.5-5.1); Sodium 128 mmol/L (136-145); Total Protein 7.3 g/dL (6.4-8.2); Triglycerides 128 mg/dL (<=150); VLDL CHOLESTEROL 25.6 mg/dL
[2024-05-03 12:10] LABS: Anion Gap 11.9; Carbon Dioxide 27.3 mmol/L (21.0-32.0); Glucose 77 mg/dL (74-106); Thyroid Stimulating Hormone <0.007 uIU/mL (0.358-3.740)
[2024-05-04 11:09] LABS: Insulin 9.7 uIU/mL (2.6-24.9)
== END 2024-05-03 10:03 | disposition home or self-care (01) ==
PROVIDERS: PCP Nurse Practitioner Family; Visit Provider Nurse Practitioner Family
DX: Z00.00 Encounter for general adult medical examination without abnormal findings (principal)
CPT/HCPCS: 36415; 80053; 80061; 83036; 83525; 84436; 84443; 84481; 85025

== ENCOUNTER 2024-05-04 16:38 | Inpatient (IN) | payer MEDICARE, SELFPAY ==
[2024-05-04] VITALS (17 sets, daily range): BP systolic 92–119; BP diastolic 61–67; PULSE 65–75; TEMP 36.6–36.7; O2SAT 96–100; BMI 32.4; BMI 33.9
--- OUTSIDE RECORDS SUMMARY | 2024-05-04 16:45 | XMS_ITS | CCD ---
Author Organization [facility] Informat ion Partnership DESKTOP SUPPORT CONSULTANT [facility] Care Team Providers Care Microstrategy Reports Developer Name Role Phone RAFI BISWAS Attending Unavailable MORIAH MACK Primary Care Unavailable MORIAH MACK Referring Unavailable RAFI BISWAS Admitting Unavailable None, No PCP Unavailable Unavailable Unavailable Unavailable DO Isidra Garibay Admit Provider [phone] DO Isidra Garibay Attending Provider NON STAFF Primary Care Provider Unavailabl Isidra Kessler Attending Unavailable Isidra Garibay Admitting Unavailable NON STAFF Primary Care Unavailable ALTON PARKS Consulting Unavailable VALEDZ, NIKKI Primary Care Unavailable ALTON PARKS Attending Unavailable ALTON PARKS Admitting Unavailable MISC, DR PALOMARES Admitting Unavailable MISC, DR PALOMARES Attending Unavailable MISC, DR PALOMARES Consulting Unavailable VALDEZ, NIKKI Primary Care Unavailable MISC, DR PALOMARES Consulting Unavailable VALDEZ, NIKKI Primary Care Unavailable MISC, DR PALOMARES Attending Unavailable MISC, DR PALOMARES Admitting Unavailable ZIEBER, DR ANGEL Ruiz Consulting Unavailable VALDEZ, NIKKI Primary Care Unavailable ALTON PARKS Attending Unavailable ALTON PARKS Admitting Unavailable ALTON PARKS Consulting Unavailable VALDEZ NIKKI Consulting Unavailable VALDEZ, NIKKI Admitting Unavailable VALDEZNIKKI Attending Unavailable VALDEZ, NIKKI Primary Care Unavailable FAWWAD, SWIFT H Admitting Unavailable FAWWAD, SWIFT H Attending Unavailable VALDEZ, NIKKI Primary Care Unavailable HASMUKH HILTON Admitting Unavailable HASMUKH HILTON Attending Unavailable MISC, DR PALOMARES Primary Care Unavailable MADELAINE ALVA Unavailable HASMUKH HILTON Consulting Unavailable MOUKARBWILLIAM, DR SHAFFER Admitting Unavailable MOUKARBEL, DR SHAFFER Attending Unavailable VALDEZ, NIKKI Primary Care Unavailable MOUKARBEL, DR SHAFFER Consulting Unavailable ALTON PARKS Admitting Unavailable ALTON PARKS Attending Unavailable VALDEZ, NIKKI Primary Care Unavailable VALDEZNIKKI Consulting Unavailable VALDEZ, NIKKI Primary Care Unavailable VALDEZ, NIKKI Attending Unavailable VALDEZ, NIKKI Admitting Unavailable ZIEBER, DR ANGEL Ruiz Consulting Unavailable VALDEZ, [facility] Primary Care Unavailable MOUKARBEL, DR SHAFFER Attending [...] Admitting Unavailable FAWWAD, SWIFT H Attending Unavailable MISC, DR PALOMARES Primary Care Unavailable ALTON PARKS Consulting Unavailable VALDEZ, NIKKI Primary Care Unavailable ALTON PARKS Attending Unavailable ALTON PARKS Admitting Unavailable BEBO, DR NOLAN Philippe Admitting Unavailabl e BEBO, DR NOLAN Philippe Attending Unavailabl e MISC, DR PALOMARES Primary Care Unavailable BEBO, DR NOLAN Philippe Consulting Unavailabl e MELODIE ., MEREDITH MEMBRENO Consulting Unavailcarl e KIRA ., HASMUKH Attending Unavailable KIRA Grajeda, HASMUKH Admitting Unavailable VALDEZ, NIKKI Primary Care Unavailable MARY ROJAS Consulting Unavailable MOUKARBEL, DR SHAFFER Admitting Unavailable MOUKARBEL, DR SHAFFER Attending Unavailable VALDEZ, [facility] Primary Care Unavailable MOUKARBEL, DR SHAFFER Consulting Unavailable VALDEZ, [facility] Primary Care Unavailable MOUKARBEL, DR SHAFFER Attending Unavailable MOUKARBEL, DR SHAFFER Admitting Unavailable FAWWAD, SWIFT H Admitting Unavailable FAWWAD, SWIFT H Attending Unavailable VALDEZ, [facility] Primary Care Unavailable ALTON PARKS Referring Unavailable OWEN, DELL Referring Unavailable RAFI BISWAS Referring Unavailable OWEN, DELL Referring Unavailable OWEN, DELL Referring Unavailable OWEN, DELL Referring Unavailable OWEN, DELL Referring Unavailable OWEN, DELL Referring Unavailable ALTON PARKS Referring Unavailable ALTON PARKS Referring Unavailable BAILEY, ALTON Referring Unavailable ALTON PARKS Referring Unavailable ALTON PARKS Referring Unavailable DELL WEAVER Referring Unavailable CIRILO RUBALCAVA Attending Unavailable ALTON PARKS Referring Unavailable DEENA BENTON Attending Unavailable RAFI BISWAS Attending Unavailable ANTHONY, YELENA Attending Unavailable Allergies Allergy Classification Reported Allergen(s) Allergy Type Date of Onset Reaction(s) Facility (1 source) AVELOX IN NACL (ISO-OSMOTIC); Translations: [AVELOX IN NACL (ISO-OSMOTIC)] Propensity to adverse reactions (disorder) 1 [facility] Repository (4 sources) moxifloxacin; Translations: [Avelox] Drug Allergy [place] [id number] DO Work Phone: (3 sources) moxifloxacin; Translations: [moxifloxacin] Drug Allergy 2 [facility] (1 source) moxifloxacin Drug Allergy 3 [facility] Repository (1 source) Chlorhexidine; Translations: [CHLORHEXIDINE GLUCONATE] Drug Allergy 0 [facility] Repository Medications Current Medications Medication Drug Class(es) Dates Sig (Normalized) Sig (Original) [id number] 200 actuat albuterol 0.09 mg/actuat metered dose [...] daily Aspirin Active 81 MG PO Daily 0 January 14, 2022 1:02pm atorvastatin 80 mg [...] 10, 2022 1:49pm take 1 capsule by [facility] three times daily as needed Benzonatate 200 [...] 10, 2022 6:58pm take 1 capsule by [facility] once daily before breakfast Levothyroxine Sodium 137 [...] Daily 10 14January 14, 2022 2:26pm take 6/3, 6/, and 01/16 then decrease to 3mg daily starting 01/17 Warfarin Sodium 3 MG Oral Tablet Take as directed by [facility] Quantity: 0 Refills: 0 Ordered: [...] Onset: 05-18-2022 Chronic Congestive heart failure; nonhypertensive (14 sources) Chronic systolic (congestive) heart failure; Translations: [Unspecified systolic (congestive) heart failure] Onset: 03-31-2022 Chronic Coronary atherosclerosis and other heart disease (18 sources) Coronary arteriosclerosis; Translations: [Coronary atherosclerosis of [place] coronary artery] Onset: 02-02-2022 Chronic Diabetes mellitus without complication (1 source) Type 2 diabetes mellitus without complications; Translations: [TYPE 2 DM WITHOUT COMPLICATIONS] Onset: 10-25-2022 Chronic Disorders of lipid metabolism (6 sources) [...] cartilage disorders, left wrist] Onset: 05-23-2023 Chronic Nonspecific chest pain (4 sources) Other chest pain; Translations: [OTHER CHEST PAIN] Onset: 10-31-2022 Episodic Osteoarthritis (2 sources) Unilateral primary osteoarthritis of [...] acute myocardial infarction] Onset: 01-10-2022 Chronic Other inflammatory condition of skin (2 sources) Psoriasis, unspecified; Translations: [Psoriasis, unspecified] Onset: 07-31-2023 Chronic Other inflammatory condition of skin (2 sources) Arthropathic psoriasis, unspecified; Translations: [Arthropathic psoriasis, unspecified] Onset: 10-03-2022 Chronic Other nervous system disorders (2 sources) Other chronic pain; Translations: [Other chronic pain] Onset: 05-23-2023 Chronic Other nutritional; endocrine; and metabolic disorders (4 sources) Obesity; Translations: [Obesity, unspecified] Chronic Bobbi-; endo-; and myocarditis; cardiomyopathy (except that [...] transluminal coronary angioplasty status] Onset: 02-28-2022 Episodic Other aftercare (1 source) Other economic development manager (current) drug therapy; Translations: [OTH PRISON CURRENT DRUG THERAPY] Onset: 06-07-2022 Episodic Other aftercare (4 sources) Encounter for therapeutic drug level monitoring; Translations: [ENC THERAPEUTC DRUG LEVL MONITORING] Onset: 05-15-2022 Episodic Other aftercare (1 source) senior living (current) use of anticoagulants; Translations: [FLOOR WINDER CURRNT USE ANTICOAGULANTS] Onset: 06-14-2022 Episodic Other connective tissue disease (2 sources) Radial styloid tenosynovitis [de Quervain]; Translations: [Radial styloid tenosynovitis (de quervain)] Onset: 05-23-2023 Episodic Other non-traumatic joint disorders (2 sources) Pain in right wrist; Translations: [Pain in right wrist] Onset: 05-23-2023 Episodic Other non-traumatic joint disorders (2 sources) Pain in left wrist; Translations: [Pain in left wrist] Onset: 05-23-2023 Episodic Other screening for suspected conditions (not mental disorders or infectious disease) (1 source) Abnormal results of thyroid function studies; Translations: [ABNORMAL RESULTS THR FUNCTION STDY] Onset: 06-07-2022 Episodic Other skin disorders (2 sources) Follicular disorder, unspecified; Translations: [Follicular disorder, unspecified] Onset: 07-31-2023 Episodic Spondylosis; intervertebral disc disorders; other back problems (3 sources) Dorsalgia, unspecified; Translations: [DORSALGIA UNSPECIFIED] Onset: 01-10-2022 Episodic Urinary tract infections (1 source) Urinary tract infection, site not specified; Translations: [UTI SITE NOT SPECIFIED] Onset: 06-07-2022 Episodic Results Test Name Value Interpretation Reference Range Facility Office Visiton 01-12-2024 Follow-up visit [id number] Javier Link 1970 Date Provider Department Center 01/12/2024 YELENA REYES [facility] Family History Problem Relation Age of Onset Atrial fibrillation Mother Other Mother Heart attack Father Other Father Other Father Family Status - Relation Status Age at Mother Father Level of Service:16435 OK OFFICE/OUTPATIENT ESTABLISHED MOD MDM 30 MIN Normal [facility] 36on 09-29-2023 37 Yes please! Normal [facility] 36 Can we give patient sample? Normal [facility] Follow-Upon 07-31-2023 Follow-Up [id number] Javier Link 1970 F Date Provider Department Center 07/31/2023 CIIRLO [facility] Family History Problem Relation Age of Onset Atrial fibrillation Mother Other Mother Heart attack Father Other Father Other Father Family Status - Relation Status Age at Mother Father Level of Service:95043 [place] OFFICE/OUTPATIENT ESTABLISHED MOD MDM 30-39 MIN Reason for Visit and Comments: Follow-up [256794] - Discuss medication switch Normal [facility] Office Visiton 06-28-2023 Follow-up visit [id number] Javier Link 1970 Date Provider Department Center 06/28/2023 Krystal-SERENITY DEENA CARD [facility] Family History Problem Relation Age of Onset Atrial fibrillation Mother Other Mother Heart attack Father Other Father Other Father Family Status - Relation Status Age at Mother Father Level of Service:85015 [place] OFFICE/OUTPATIENT ESTABLISHED LOW MDM 20-29 MIN Reason for Visit and Comments: Follow-up [296741] - BP running higher. Normal [facility] Office Visiton 05-23-2023 Follow-up visit [id number] Javier Link 1970 Date Provider Department Center 05/23/2023 Katerina-RAFI BISWAS MP ORTHO MPORTHO Family History Problem Relation Age of Onset Atrial fibrillation Mother Other Mother Heart attack Father Other Father Other Father Family Status - Relation Status Age at Mother Father Level of Service:36591 [place] OFFICE/OUTPATIENT ESTABLISHED LOW MDM 20-29 MIN (GC,25) Reason for Visit and Comments: Pain [136] - Radiates up thumb up arm Pain [136] - Radiates up thumb up to arm. Normal [facility] PROF CHEM 8 (BAS METB)on Anion gap [Moles/Vol] 14.8 mmol/L Normal [facility] Comment on above: Performed By: #### C BC #### [facility] [address] [place] [address] Dr. Vangie Devine Calcium [Mass/Vol] 8.9 mg/dL Normal 8.5-10.1 [facility] Comment on above: Performed By: #### C BC #### [facility] [address] [address] [address] Vangie Devine Chloride [Moles/Vol] 101 mmol/L Normal 98-107 [facility] Comment on above: Performed By: #### C BC #### [facility] [address] [address] [address] Vangie Devine CO2 [Moles/Vol] 25.9 mmol/L Normal 21.0-32.0 [facility] Comment on above: Performed By: #### C BC #### [facility] [address] [place] [address] Dr. Vangie Devine Creatinine [Mass/Vol] 0.91 mg/dL Normal 0.55-1.02 [facility] Comment on above: Performed By: #### C BC #### [facility] [address] [address] [address] Vangie Devine EGFR-AF [place]LANDER >60 Normal >=60 [facility] Comment on above: Performed By: #### C BC #### [facility] [address] [place] [address] Dr. Vangie Devine EGFR-NON AF [place] >60 Normal >=60 [facility] Comment on above: Performed By: #### C BC #### [facility] [address] [place] [address] Dr. Vangie Devine Glucose [Mass/Vol] 93 mg/dL Normal 74-106 [facility] Comment on above: Performed By: #### C BC #### [facility] [address] [place] [address] Dr. Vangie Devine Potassium [Moles/Vol] 4.7 mmol/L Normal 3.5-5.1 [facility] Comment on above: Performed By: #### C BC #### [facility] [address] [place] [address] Dr. Vangie Devine Sodium [Moles/Vol] 137 mmol/L Normal 136-145 [facility] Comment on above: Performed By: #### C BC #### [facility] [address] [place] [address] Dr. Vangie Devine Urea nitrogen [Mass/Vol] 9.0 mg/dL Normal 7.0-18.0 [facility] Comment on above: Performed By: #### C BC #### [facility] [address] [place] [address] Dr. Vangie Devine Urea nitrogen/Creatinine [Mass ratio] 9.9 mg/mg Normal [facility] Comment on above: Performed By: #### C BC #### [facility] [address] [place] [address] Dr. Vangie Devine PROF CHEM 8 (BAS METB)on Anion gap [Moles/Vol] 15.6 mmol/L Normal [facility] Comment on above: Performed By: #### P TT, PT #### [facility] [address] [place] [address] Dr. Vangie Devine Calcium [Mass/Vol] 8.9 mg/dL Normal 8.5-10.1 [facility] Comment on above: Performed By: #### P TT, PT #### [facility] [address] [place] [address] Dr. Vangie Devine Chloride [Moles/Vol] 101 mmol/L Normal 98-107 [facility] Comment on above: Performed By: #### P TT, PT #### [facility] [address] [place] [address] Dr. Vangie Devine CO2 [Moles/Vol] 24.7 mmol/L Normal 21.0-32.0 [facility] Comment on above: Performed By: #### P TT, PT #### [facility] [address] [place] [address] Dr. Vangie Devine Creatinine [Mass/Vol] 0.95 mg/dL Normal 0.55-1.02 [facility] Comment on above: Performed By: #### P TT, PT #### [facility] [address] [place] [address] Dr. Vangie Devine EGFR-AF [place] >60 Normal >=60 [facility] Comment on above: Performed By: #### P TT, PT #### [facility] [address] [place] [address] Dr. Vangie Devine EGFR-NON AF [place] >60 Normal >=60 [facility] Comment on above: Performed By: #### P TT, PT #### [facility] [address] [place] [address] Dr. Vangie Devine Glucose [Mass/Vol] 101 mg/dL Normal 74-106 [facility] Comment on above: Performed By: #### P TT, PT #### [facility] [address] [address] [address] Vangie Devine Potassium [Moles/Vol] 4.3 mmol/L Normal 3.5-5.1 [facility] Comment on above: Performed By: #### P TT, PT #### [facility] [address] [address] [address] Vangie Devine Sodium [Moles/Vol] 137 mmol/L Normal 136-145 [facility] Comment on above: Performed By: #### P TT, PT #### [facility] [address] [address] [address] Vangie Devine Urea nitrogen [Mass/Vol] 15.0 mg/dL Normal 7.0-18.0 [facility] Comment on above: Performed By: #### P TT, PT #### [facility] [address] [address] [address] Vangie Devine Urea nitrogen/Creatinine [Mass ratio] 15.8 mg/mg Normal [facility] Comment on above: Performed By: #### P TT, PT #### [facility] [address] [address] [address] Vangie Devine NM STRESS/REST MULTIon 10-31 NM STRESS/REST MULTI Patient: JAVIER LINK Exam Date: 10/31/2022 : 1970 Gender:F Ordering : DR DEENA BENTON M.D. Admission #: [id number] Family : Order #: [id number] CLICK HERE TO VIEW EXAM RADIOLOGY REPORT [...] study was pending per attending physician Dr. Parks . For more details please see separate [...] above findings as known. Dictated by: Angel Shaffer M.D. on 10/31/2022 at 14:39 Approved by: Angel Shaffer M.D. on 10/31/2022 at 14:45 Normal [facility] FREE THYROXINE INDEX T7on FTI 4.83 Critically high 1.30-4.50 [facility] Comment on above: Performed By: #### C BC #### [facility] [address] [address] [address] Vangie Devine T3U 35.0 % Normal 30.0-39.0 [facility] Comment on above: Performed By: #### C BC #### [facility] [address] [address] [address] Vangie Devine T4 [Mass/Vol] 13.80 ug/dL Normal 4.80-13.90 [facility] Comment on above: Performed By: #### C BC #### [facility] [address] [address] [address] Vangie Devine TSHon 07-20-2022 TSH 0.051 uIU/mL Critically low 0.358-3.740 [facility] Comment on above: Performed By: #### C BC #### [facility] [address] [place] [address] Dr. Vangie Devine ACETONE SERUMon 06-03-2022 ACETONE Negative Normal NEGATIVE [facility] Comment on above: Performed By: #### C BCMAN #### [facility] [address] [place] [address] Dr. Vangie Devine CBC AUTO DIFFon 06-03-2022 BASO # 0.1 103/ul Normal 0.0-0.1 [facility] Comment on above: Performed By: #### C BCMAN #### [facility] [address] [place] [address] Dr. Vangie Devine Basophils/100 WBC (Bld) 0.6 % Normal 0.2-2.0 [facility] Comment on above: Performed By: #### C JOBY #### [facility] [address] [place] [address] Dr. Vangie Devine EO # 0.3 103/ul Normal 0.0-0.7 [facility] Comment on above: Performed By: #### C JOBY #### [facility] [address] [place] [address] Dr. Vangie Devine Eosinophils/100 WBC (Bld) 1.4 % Normal 0.9-7.0 [facility] Comment on above: Performed By: #### C JOBY #### [facility] [address] [place] [address] Dr. Vangie Devine Erythrocyte distribution width (RBC) [Ratio] 13.2 % Normal 11.0-15.0 [facility] Comment on above: Performed By: #### C BCHERIBERTO #### [facility] [address] [place] [address] Dr. Vangie Devine Hematocrit (Bld) [Volume fraction] 44.8 % Normal 36.0-48.0 [facility] Comment on above: Performed By: #### C BCMAN #### [facility] [address] [place] [address] Dr. Vangie Devine Hemoglobin (Bld) [Mass/Vol] 15.0 g/dL Normal 12.0-16.0 [facility] Comment on above: Performed By: #### C JOBY #### [facility] [address] [place] [address] Dr. Vangie Devine IG # 0.06 10e3/ul Critically high 0.00-0.03 [facility] Comment on above: Performed By: #### C JOBY #### [facility] [address] [place] [address] Dr. Vangie Devine IG % 0.3 % Normal 0.0-0.5 [facility] Comment on above: Performed By: #### C JOBY #### [facility] [address] [place] [address] Dr. Vangie Devine LYMPH # 3.5 103/ul Normal 1.2-3.8 [facility] Comment on above: Performed By: #### C JOBY #### [facility] [address] [place] [address] Dr. Vangie Devine Lymphocytes/100 WBC (Bld) 19.8 % Critically low 20.5-60.0 [facility] Comment on above: Performed By: #### C JOBY #### [facility] [address] [place] [address] Dr. Vangie Devine MANUAL DIFF REQ NO Normal [facility] Comment on above: Performed By: #### C JOBY #### [facility] [address] [place] [address] Dr. Vangie Devine MCH (RBC) [Entitic mass] 31.1 pg Normal 26.7-34.0 [facility] Comment on above: Performed By: #### C JOBY #### [facility] [address] [place] [address] Dr. Vangie Devine MCHC (RBC) [Mass/Vol] 33.5 g/dL Normal 29.9-35.2 [facility] Comment on above: Performed By: #### C JOBY #### [facility] [address] [place] [address] Dr. Vanige Devine MCV (RBC) [Entitic vol] 92.8 fL Normal 81.0-99.0 [facility] Comment on above: Performed By: #### C JOBY #### [facility] [address] [place] [address] Dr. Vangie Devine MONO # 1.1 103/ul Critically high 0.3-0.8 [facility] Comment on above: Performed By: #### C JOBY #### [facility] [address] [place] [address] Dr. Vangie Devine Monocytes/100 WBC (Bld) 6.0 % Normal 1.7-12.0 [facility] Comment on above: Performed By: #### C JOBY #### [facility] [address] [place] [address] Dr. Vangie Devine NEUT # 12.6 103/ul Critically high 1.4-6.5 [facility] Comment on above: Performed By: #### C JOBY #### [facility] [address] [place] [address] Dr. Vangie Devine Neutrophils/100 WBC (Bld) 71.9 % Normal 43.0-75.0 [facility] Comment on above: Performed By: #### C JOBY #### [facility] [address] [place] [address] Dr. Vangie Devine Platelet mean volume (Bld) [Entitic vol] 11.0 fL Normal 9.5-13.5 [facility] Comment on above: Performed By: #### C JOBY #### [facility] [address] [place] [address] Dr. Vangie Devine PLT 179 103/ul Normal 150-450 [facility] Comment on above: Performed By: #### C JOBY #### [facility] [address] [place], [place] [id number] Dr. Vangie Devine RBC 4.83 106/ul Normal 4.20-5.40 [facility] Comment on above: Performed By: #### C JOBY #### [facility] [address] [place] [address] Dr. Vangie Devnie WBC 17.5 103/ul Critically high 4.0-11.0 [facility] Comment on above: Performed By: #### C BCMAN #### [facility] [id number] Vangie Devine [address] HEAD WO CONon [...] MARY ROJAS Date: 2022-06-03 19:15 Normal [facility] CULTURE URINEon 06-03-2022 CULTURE URINE Culture Observations : NO GROWTH. Normal [facility] Comment on above: Performed By: #### P TT, PT #### [facility] [id number] Vangie Devine Covid-19 PCR ([facility]on 05-15 SARS-CoV-2 (COVID-19) RNA SAMIR+probe Ql (Unsp spec) Not detected Normal NOT DETECTED [facility] Comment on above: Result Comment: When [...] for this test is supported by the [employer] Developer of Health and Human Service's declaration that [...] used). Performed By: #### C BCMAN #### [facility] [address] [place] [address] Dr. Vangie Devine ER URINE PROFILEon 2 Bilirubin Ql (U) Negative Normal NEGATIVE [facility] Comment on above: Performed By: #### C BC #### [facility] [address] [place] [address] Dr. Vangie Devine Clarity (U) CLEAR Normal CLEAR [facility] Comment on above: Performed By: #### C BC #### [facility] [address] [place] [address] Dr. Vangie Devine Color (U) LT. YELLOW Normal YELLOW [facility] [facility] Comment on above: Performed By: #### C BC #### [facility] [address] [place] [address] Dr. Vangie MCCAULEY A micrscopic examination will be performed if indicated. Normal [facility] Comment on above: Performed By: #### C BC #### [facility] [address] [place] [address] Dr. Vangie Devine Glucose Ql (U) 250 mg/dl Abnormal NEGATIVE [facility] Comment on above: Performed By: #### C BC #### [facility] [address] [place] [address] Dr. Vangie Devine Hemoglobin Ql (U) Negative Normal NEGATIVE [facility] Comment on above: Performed By: #### C BC #### [facility] [address] [place] [address] Dr. Vangie Devine Ketones Ql (U) Negative Normal NEGATIVE [facility] Comment on above: Performed By: #### C BC #### [facility] [address] [place] [address] Dr. Vangie Devine LEUKOCYTES Negative Normal NEGATIVE [facility] Comment on above: Performed By: #### C BC #### [facility] [address] [place] [address] Dr. Vangie Devine Nitrite Ql (U) Positive Abnormal NEGATIVE [facility] Comment on above: Performed By: #### C BC #### [facility] [address] [place] [address] Dr. Vangie Devine pH (U) 6.0 [pH] Normal 5-9 [facility] Comment on above: Performed By: #### C BC #### [facility] [address] [place] [address] Dr. Vangie Devine SPEC GRAVITY <=1.005 Abnormal 1.005-<=1.025 [facility] Comment on above: Performed By: #### C BC #### [facility] [address] [place] [address] Dr. Vangie Devine UA PROTEIN Negative Normal NEGATIVE/ TRACE [facility] Comment on above: Performed By: #### C BC #### [facility] [address] [place] [address] Dr. Vangie Devine UR MICRO IND INDICATED Normal [facility] Comment on above: Performed By: #### C BC #### [facility] [address] [place] [address] Dr. Vangie Devine Urobilinogen Qn (U) 0.2 {Jewel'U}/dL Normal 0.2 - 1. 0 [facility] Comment on above: Performed By: #### C BC #### [facility] [address] [place] [address] Dr. Vangie Devine FREE T3on 06-03-2022 FREE T3 2.42 pg/mlL Normal 2.18-3.98 [facility] Comment on above: Performed By: #### F T3 #### [facility] [address] [place] [address] Dr. Vangie Devine FREE T4on 06-03-2022 Free T4 [Mass/Vol] 1.93 ng/dL Critically high 0.76-1.46 [facility] Comment on above: Performed By: #### C JOBY #### [facility] [address] [address] [address] Vangie Devine LACTATE/LACTIC ACIDon 2021 Lactate [Moles/Vol] 1.2 mmol/L Normal 0.4-1.9 [facility] Comment on above: Performed By: #### C JOBY #### [facility] [address] [address] [address] Vangie Devine PROF 14(COMP METB)on 022 Albumin [Mass/Vol] 3.9 g/dL Normal 3.4-5.0 [facility] Comment on above: Performed By: #### H STROPN, TSH, CMP #### [facility] [address] [place] [address] Dr. Vangie Devine Albumin/Globulin [Mass ratio] 0.9 {ratio} Normal [facility] Comment on above: Performed By: #### H STROPN, TSH, CMP #### [facility] [address] [place] [address] Dr. Vangie Devine ALP [Catalytic activity/Vol] 138 U/L Critically high 46-116 [facility] Comment on above: Performed By: #### H STROPN, TSH, CMP #### [facility] [address] [place] [address] Dr. Vangie Devine ALT [Catalytic activity/Vol] 24 U/L Normal 14-59 [facility] Comment on above: Performed By: #### H STROPN, TSH, CMP #### [facility] [address] [place] [address] Dr. Vangie Devine Anion gap [Moles/Vol] 11.4 mmol/L Normal [facility] Comment on above: Performed By: #### H STROPN, TSH, CMP #### [facility] [address] [place] [address] Dr. Vangie Devine AST [Catalytic activity/Vol] 23 U/L Normal 15-37 [facility] Comment on above: Performed By: #### H STROPN, TSH, CMP #### [facility] [address] [address] [address] Vangie Devine Bilirubin [Mass/Vol] 0.5 mg/dL Normal 0.2-1.0 [facility] Comment on above: Performed By: #### H STROPN, TSH, CMP #### [facility] [address] [address] [address] Vangie Devine Calcium [Mass/Vol] 9.5 mg/dL Normal 8.5-10.1 [facility] Comment on above: Performed By: #### H STROPN, TSH, CMP #### [facility] [address] [address] [address] Vangie Devine Chloride [Moles/Vol] 98 mmol/L Normal 98-107 [facility] Comment on above: Performed By: #### H STROPN, TSH, CMP #### [facility] [address] [address] [address] Vangie Devine CO2 [Moles/Vol] 25.3 mmol/L Normal 21.0-32.0 [facility] Comment on above: Performed By: #### H STROPN, TSH, CMP #### [facility] [address] [address] [address] Vangie Devine Creatinine [Mass/Vol] 0.90 mg/dL Normal 0.55-1.02 [facility] Comment on above: Performed By: #### H STROPN, TSH, CMP #### [facility] [address] [address] [address] Vangie Devine EGFR-AF [place]ER >60 Normal >=60 [facility] Comment on above: Performed By: #### H STROPN, TSH, CMP #### [facility] [address] [address] [address] Vangie Devine EGFR-NON AF [place] >60 Normal >=60 [facility] Comment on above: Performed By: #### H STROPN, TSH, CMP #### [facility] [address] [place] [address] Dr. aVngie Devine Globulin (S) [Mass/Vol] 4.2 g/dL Normal [facility] Comment on above: Performed By: #### H STROPN, TSH, CMP #### [facility] [address] [address] [address] Vangie Devine Glucose [Mass/Vol] 93 mg/dL Normal 74-106 [facility] Comment on above: Performed By: #### H STROPN, TSH, CMP #### [facility] [address] [address] [address] Vangie Devine Potassium [Moles/Vol] 3.7 mmol/L Normal 3.5-5.1 [facility] Comment on above: Performed By: #### H STROPN, TSH, CMP #### [facility] [address] [address] [address] Vangie Devine Protein [Mass/Vol] 8.1 g/dL Normal 6.4-8.2 [facility] Comment on above: Performed By: #### H STRONANCY, TSH, CMP #### [facility] [address] [address] [address] Vangie Devine Sodium [Moles/Vol] 131 mmol/L Critically low 136-145 [facility] Comment on above: Performed By: #### H STRONANCY, TSH, CMP #### [facility] [address] [place] [address] Dr. Vangie Devine Urea nitrogen [Mass/Vol] 14.0 mg/dL Normal 7.0-18.0 [facility] Comment on above: Performed By: #### H STROPN, TSH, CMP #### [facility] [address] [address] [address] Vangie Devine Urea nitrogen/Creatinine [Mass ratio] 15.6 mg/mg Normal [facility] Comment on above: Performed By: #### H STROPN, TSH, CMP #### [facility] [address] [place] [address] Dr. Vangie Devine PROTIMEon 06-03-2022 INR Coag (PPP) [Relative time] 1.06 {INR} Normal [facility] Comment on above: Performed By: #### C BCMAN #### [facility] [address] [place] [address] Dr. Vangie Devine INR GUIDELINES SEE BELOW Normal [facility] Comment on above: Result Comment: MARY ANN RED INR: 2.0 - 3.0 CONDITIONS NOT LISTED BELOW 2.5 - 3.5 FOR PROSTHETIC HEART VALVE REPLACEMENT 2.5 - 3.5 RECURRENT THROMBOSIS Performed By: #### C JOBY #### [facility] [address] [place] [address] Dr. Vangie Devine PT Coag (PPP) [Time] 11.4 s Normal 9.0-11.6 [facility] Comment on above: Performed By: #### C JOBY #### [facility] [address] [place] [address] Dr. Vangie Devine PTTon 06-03-2022 aPTT Coag (Bld) [Time] 31.3 s Normal 22.3-36.2 [facility] Comment on above: Performed By: #### C JOBY #### [facility] [address] [place] [address] Dr. Vangie Devine TROPONIN, HIGH SENSITIVITYon 06-03-2022 HSTROP 26.3 pg/mL Normal 4.0-51.3 [facility] Comment on above: Result Comment: CUT- OFF POINTS HAVE BEEN ESTABLISHED BASED ON THE FOURTH UNIVERSAL DEFINITIONS OF MYOCARDIAL INFARCTION. THE UPPER REFERENCE LIMIT (URL) OF TROPONIN, DEFINED THE 99TH PERCENTILE OF cTnI DISTRIBUTION IN A REFERENCE POPULATION, HAS BEEN CONFIRMED THE DECISION THRESHOLD FOR AL DIAGNOSIS. Performed By: #### P TT, PT #### [facility] [address] [place] [address] Dr. Vangie Devine TSHon 06-03-2022 TSH 0.150 uIU/mL Critically low 0.358-3.740 [facility] Comment on above: Performed By: #### P TT, PT #### [facility] [address] [place] [address] Dr. Vangie Devine URINE MICROSCOPIC ONLYon BACTERIA TRACE Abnormal NONE SEEN [facility] Comment on above: Performed By: #### C BC #### [facility] [address] [place] [address] Dr. Vangie Devine Bacteria identified Cx Nom (U) INDICATED Normal [facility] Comment on above: Result Comment: dory cated due to positive nitrite Performed By: #### C BC #### [facility] [address] [place] [address] Dr. Vangie Devine CAST NONE SEEN Normal NONE SEEN [facility] Comment on above: Performed By: #### C BC #### [facility] [address] [place] [address] Dr. Vangie Devine Crystals LM Nom (Urine sed) NONE SEEN Normal NONE SEEN [facility] Comment on above: Performed By: #### C BC #### [facility] [address] [place] [address] Dr. Vangie Devine Epithelial cells LM Ql (Urine sed) RARE Normal NONE SEEN /RARE [facility] Comment on above: Performed By: #### C BC #### [facility] [address] [place] [address] Dr. Vangie Devine MUCOUS NONE SEEN Normal NONE SEEN [facility] Comment on above: Performed By: #### C BC #### [facility] [address] [place] [address] Dr. Vangie Devine RBC 0-2 Normal 0-2 [facility] Comment on above: Performed By: #### C BC #### [facility] [address] [place] [address] Dr. Vangie Devine WBC 0-2 Abnormal NONE SEEN [facility] Comment on above: Performed By: #### C BC #### [facility] [address] [place] [address] Dr. Vangie Devine XR CHEST 1 Von 06-03-2022 XR CHEST 1 V EXAM: XR CHEST 1 V a t 1835 hours HISTORY: BENIGN PAROXYSMAL VERTIGO, UNSPECIFIED [...] MARY ROJAS Date: 2022-06-03 19:25 Normal [facility] XR CHEST 2 Von 05-18-2022 XR CHEST 2 V EXAMINATION: XR CHES T 2 V HISTORY: Cardiac pacemaker in situ [...] Stable cardiac silhouette. Electronically authenticated by: ANGEL SHAFFER Date: 2022-05-18 10:55 Normal [facility] Covid-19 PCR ([facility])on SARS-CoV-2 (COVID-19) RNA SAMIR+probe Ql (Unsp spec) Not detected Normal NOT DETECTED [facility] Comment on above: Result Comment: This test is not yet approved or cleared by the [place] FDA. When there are no FDA-approved or cleared tests available, and other criteria are met, FDA can make tests available under an emergency access mechanism called an Emergency Use Authorization (EUA). The EUA for this test is supported by the [employer] of Health and Human Service's (HHS's) declaration [...] Performed By: #### P TT, PT #### [facility] [address] [place] [address] Dr. Vangie Devine CBC AUTO DIFFon 05-12-2022 BASO # 0.1 103/ul Normal 0.0-0.1 [facility] Comment on above: Performed By: #### C BC #### [facility] [address] [place] [address] Dr. Vangie Devine Basophils/100 WBC (Bld) 0.7 % Normal 0.2-2.0 [facility] Comment on above: Performed By: #### C BC #### [facility] [address] [place] [address] Dr. Vangie Devine EO # 0.2 103/ul Normal 0.0-0.7 [facility] Comment on above: Performed By: #### C BC #### [facility] [address] [place] [address] Dr. Vangie Devine Eosinophils/100 WBC (Bld) 2.1 % Normal 0.9-7.0 [facility] Comment on above: Performed By: #### C BC #### [facility] [address] [place] [address] Dr. Vangie Devine Erythrocyte distribution width (RBC) [Ratio] 13.1 % Normal 11.0-15.0 [facility] Comment on above: Performed By: #### C BC #### [facility] [address] [place] [address] Dr. Vangie Devine Hematocrit (Bld) [Volume fraction] 43.2 % Normal 36.0-48.0 [facility] Comment on above: Performed By: #### C BC #### [facility] [address] [place] [address] Dr. Vangie Devine Hemoglobin (Bld) [Mass/Vol] 14.2 g/dL Normal 12.0-16.0 [facility] Comment on above: Performed By: #### C BC #### [facility] [address] [place] [address] Dr. Vangie Devine IG # 0.02 10e3/ul Normal 0.00-0.03 [facility] Comment on above: Performed By: #### C BC #### [facility] [address] [place] [address] Dr. Vangie Devine IG % 0.2 % Normal 0.0-0.5 [facility] Comment on above: Performed By: #### C BC #### [facility] [address] [place] [address] Dr. Vangie Devine LYMPH # 1.9 103/ul Normal 1.2-3.8 [facility] Comment on above: Performed By: #### C BC #### [facility] [address] [place] [address] Dr. Vangie Devine Lymphocytes/100 WBC (Bld) 22.2 % Normal 20.5-60.0 [facility] Comment on above: Performed By: #### C BC #### [facility] [address] [place] [address] Dr. Vangie Devine MANUAL DIFF REQ NO Normal [facility] Comment on above: Performed By: #### C BC #### [facility] [address] [place] [address] Dr. Vangie Devine MCH (RBC) [Entitic mass] 30.5 pg Normal 26.7-34.0 [facility] Comment on above: Performed By: #### C BC #### [facility] [address] [place] [address] Dr. Vangie Devine MCHC (RBC) [Mass/Vol] 32.9 g/dL Normal 29.9-35.2 [facility] Comment on above: Performed By: #### C BC #### [facility] [address] [place] [address] Dr. Vangie Devine MCV (RBC) [Entitic vol] 92.7 fL Normal 81.0-99.0 [facility] Comment on above: Performed By: #### C BC #### [facility] [address] [place] [address] Dr. Vangie Devine MONO # 0.5 103/ul Normal 0.3-0.8 [facility] Comment on above: Performed By: #### C BC #### [facility] [address] [place] [address] Dr. Vangie Devine Monocytes/100 WBC (Bld) 6.0 % Normal 1.7-12.0 [facility] Comment on above: Performed By: #### C BC #### [facility] [address] [place] [address] Dr. Vangie Devine NEUT # 6.0 103/ul Normal 1.4-6.5 [facility] Comment on above: Performed By: #### C BC #### [facility] [address] [place] [address] Dr. Vangie Devine Neutrophils/100 WBC (Bld) 68.8 % Normal 43.0-75.0 [facility] Comment on above: Performed By: #### C BC #### [facility] [address] [place] [address] Dr. Vangie Devine Platelet mean volume (Bld) [Entitic vol] 11.7 fL Normal 9.5-13.5 [facility] Comment on above: Performed By: #### C BC #### [facility] [address] [place] [address] Dr. Vangie Devine PLT 176 103/ul Normal 150-450 [facility] Comment on above: Performed By: #### C BC #### [facility] [address] [place] [address] Dr. Vangie Devine RBC 4.66 106/ul Normal 4.20-5.40 [facility] Comment on above: Performed By: #### C BC #### [facility] [address] [place] [address] Dr. Vangie Devine WBC 8.7 103/ul Normal 4.0-11.0 [facility] Comment on above: Performed By: #### C BC #### [facility] [address] [place] [address] Dr. Vangie Devine PROF CHEM 8 (BAS METB)on Anion gap [Moles/Vol] 13.9 mmol/L Normal Th e [facility] Comment on above: Performed By: #### C BC #### [facility] [address] [address] [address] Vangie Devine Calcium [Mass/Vol] 9.2 mg/dL Normal 8.5-10.1 [facility] Comment on above: Performed By: #### C BC #### [facility] [address] [address] [address] Vangie Devine Chloride [Moles/Vol] 101 mmol/L Normal 98-107 [facility] Comment on above: Performed By: #### C BC #### [facility] [address] [address] [address] Vangie Devine CO2 [Moles/Vol] 24.2 mmol/L Normal 21.0-32.0 [facility] Comment on above: Performed By: #### C BC #### [facility] [address] [place] [address] Dr. Vangie Devine Creatinine [Mass/Vol] 0.87 mg/dL Normal 0.55-1.02 [facility] Comment on above: Performed By: #### C BC #### [facility] [address] [place] [address] Dr. Vangie Devine EGFR-AF [place] >60 Normal >=60 [facility] Comment on above: Performed By: #### C BC #### [facility] [address] [place] [address] Dr. Vangie Devine EGFR-NON AF [place] >60 Normal >=60 [facility] Comment on above: Performed By: #### C BC #### [facility] [address] [address] [address] Vangie Devine Glucose [Mass/Vol] 89 mg/dL Normal 74-106 [facility] Comment on above: Performed By: #### C BC #### [facility] [address] [place] [address] Dr. Vangie Devine Potassium [Moles/Vol] 4.1 mmol/L Normal 3.5-5.1 [facility] Comment on above: Performed By: #### C BC #### [facility] [address] [address] [address] Vangie Devine Sodium [Moles/Vol] 135 mmol/L Critically low 136-145 Th e [facility] Comment on above: Performed By: #### C BC #### [facility] [address] [address] [address] Vangie Devine Urea nitrogen [Mass/Vol] 9.0 mg/dL Normal 7.0-18.0 [facility] Comment on above: Performed By: #### C BC #### [facility] [address] [address] [address] Vangie Devine Urea nitrogen/Creatinine [Mass ratio] 10.3 mg/mg Normal [facility] Comment on above: Performed By: #### C BC #### [facility] [address] [place] [address] Dr. Vangie Devine PROTIMEon 05-12-2022 INR Coag (PPP) [Relative time] 1.96 {INR} Normal [facility] Comment on above: Performed By: #### P T #### [facility] [address] [place] [address] Dr. Vangie Devine INR GUIDELINES SEE BELOW Normal [facility] Comment on above: Result Comment: MARY ANN RED INR: 2.0 - 3.0 CONDITIONS NOT LISTED BELOW 2.5 - 3.5 FOR PROSTHETIC HEART VALVE REPLACEMENT 2.5 - 3.5 RECURRENT THROMBOSIS Performed By: #### P T #### [facility] [address] [place] [address] Dr. Vangie Devine PT Coag (PPP) [Time] 20.3 s Critically high 9.0-11.6 [facility] Comment on above: Performed By: #### P T #### [facility] [address] [place] [address] Dr. Vangie Devine T4, T3U, FTI LABCORPon 05-07 Free Thyroxine Index 4.7 Normal 1.2-4.9 [facility] Comment on above: Performed By: #### T HYLC #### [facility] [address] [place] [address] Dr. Vangie Devine T3 Uptake 34 % Normal 24-39 [facility] Comment on above: Performed By: #### T HYLC #### [facility] [address] [address] [address] Vangie Devine T4 [Mass/Vol] 13.8 ug/dL Critically high 4.5-12.0 [facility] Comment on above: Performed By: #### T HYLC #### [facility] [address] [address] [address] Vangie Devine TSHon 05-06-2022 TSH 0.063 uIU/mL Critically low 0.358-3.740 [facility] Comment on above: Performed By: #### T SH #### [facility] [address] [place] [address] Dr. Vangie Devine ECHOCARDIO M/2D COMPLETEon 0 03-31-2022 ECHOCARDIO M/2D COMPLETE Patient: JAVIER LINK Exam Date: 03/31/2022 : 1970 Gender:F Ordering : DR DEENA BENTON M.D. Admission #: [id number] Family : Order #: [id number] CLICK HERE TO VIEW EXAM ECHOCARDIOGRAM REPORT [...] evidence of pericardial effusion. Dictated by: Deena Benton M.D. on 03/31/2022 at 18:28 Approved by: Deena Benton M.D. on 03/31/2022 at 18:35 Normal [facility] CBC AUTO DIFFon 03-28-2022 BASO # 0.1 103/ul Normal 0.0-0.1 [facility] Comment on above: Performed By: #### C BC #### [facility] [address] [place] [address] Dr. Vangie Devine Basophils/100 WBC (Bld) 0.6 % Normal 0.2-2.0 [facility] Comment on above: Performed By: #### C BC #### [facility] [address] [place] [address] Dr. Vangie Devine EO # 0.2 103/ul Normal 0.0-0.7 [facility] Comment on above: Performed By: #### C BC #### [facility] [address] [place] [address] Dr. Vangie Devine Eosinophils/100 WBC (Bld) 2.0 % Normal 0.9-7.0 [facility] Comment on above: Performed By: #### C BC #### [facility] [address] [place] [address] Dr. Vangie Devine Erythrocyte distribution width (RBC) [Ratio] 12.7 % Normal 11.0-15.0 [facility] Comment on above: Performed By: #### C BC #### [facility] [address] [place] [address] Dr. Vangie Devine Hematocrit (Bld) [Volume fraction] 42.6 % Normal 36.0-48.0 [facility] Comment on above: Performed By: #### C BC #### [facility] [address] [place] [address] Dr. Vangie Devine Hemoglobin (Bld) [Mass/Vol] 13.9 g/dL Normal 12.0-16.0 [facility] Comment on above: Performed By: #### C BC #### [facility] [address] [place] [address] Dr. Vangie Devine IG # 0.03 10e3/ul Normal 0.00-0.03 [facility] Comment on above: Performed By: #### C BC #### [facility] [address] [place] [address] Dr. Vangie Devine IG % 0.4 % Normal 0.0-0.5 [facility] Comment on above: Performed By: #### C BC #### [facility] [address] [place] [address] Dr. Vangie Devine LYMPH # 2.3 103/ul Normal 1.2-3.8 [facility] Comment on above: Performed By: #### C BC #### [facility] [address] [place] [address] Dr. Vangie Devine Lymphocytes/100 WBC (Bld) 28.7 % Normal 20.5-60.0 [facility] Comment on above: Performed By: #### C BC #### [facility] [address] [place] [address] Dr. Vangie Devine MANUAL DIFF REQ NO Normal [facility] Comment on above: Performed By: #### C BC #### [facility] [address] [place] [address] Dr. Vangie Devine MCH (RBC) [Entitic mass] 31.0 pg Normal 26.7-34.0 [facility] Comment on above: Performed By: #### C BC #### [facility] [address] [place] [address] Dr. Vangie Devine MCHC (RBC) [Mass/Vol] 32.6 g/dL Normal 29.9-35.2 [facility] Comment on above: Performed By: #### C BC #### [facility] [address] [address] [address] Vangie Devine MCV (RBC) [Entitic vol] 95.1 fL Normal 81.0-99.0 [facility] Comment on above: Performed By: #### C BC #### [facility] [address] [address] [address] Vangie Devine MONO # 0.5 103/ul Normal 0.3-0.8 [facility] Comment on above: Performed By: #### C BC #### [facility] [address] [place] [address] Dr. Vangie Devine Monocytes/100 WBC (Bld) 6.8 % Normal 1.7-12.0 [facility] Comment on above: Performed By: #### C BC #### [facility] [address] [place] [address] Dr. Vangie Devine NEUT # 4.9 103/ul Normal 1.4-6.5 [facility] Comment on above: Performed By: #### C BC #### [facility] [address] [place] [address] Dr. Vangie Devine Neutrophils/100 WBC (Bld) 61.5 % Normal 43.0-75.0 [facility] Comment on above: Performed By: #### C BC #### [facility] [address] [place] [address] Dr. Vangie Devine Platelet mean volume (Bld) [Entitic vol] 11.0 fL Normal 9.5-13.5 [facility] Comment on above: Performed By: #### C BC #### [facility] [address] [place] [address] Dr. Vangie Devine PLT 224 103/ul Normal 150-450 [facility] Comment on above: Performed By: #### C BC #### [facility] [address] [place] [address] Dr. Vangie Devine RBC 4.48 106/ul Normal 4.20-5.40 [facility] Comment on above: Performed By: #### C BC #### [facility] [address] [address] [address] Vangie Devine WBC 7.9 103/ul Normal 4.0-11.0 [facility] Comment on above: Performed By: #### C BC #### [facility] [address] [address] [address] Vangie Devine LIPID PROFILEon 03-28-2022 CHOL-HDL RATIO NORM SEE BELOW Normal [facility] Comment on above: Result Comment: 3.3 - 4.4 LOW RISK 4.4 - 7.1 AVERAGE RISK 7.1 - 11.0 MODERATE RISK >11.0 HIGH RISK Performed By: #### C BC #### [facility] [address] [place] [address] Dr. Vangie Devine Cholesterol [Mass/Vol] 103 mg/dL Normal <=200 [facility] Comment on above: Performed By: #### C BC #### [facility] [address] [address] [address] Vangie Devine Cholesterol in HDL [Mass/Vol] 39 mg/dL Critically low 40-60 [facility] Comment on above: Performed By: #### C BC #### [facility] [address] [place] [address] Dr. Vangie Devine Cholesterol in LDL [Mass/Vol] 46.8 mg/dL Normal [facility] Comment on above: Performed By: #### C BC #### [facility] [address] [place] [address] Dr. Vangie Devine Cholesterol.total/Chol esterol in HDL [Mass ratio] 2.6 {ratio} Normal [facility] Comment on above: Performed By: #### C BC #### [facility] [address] [address] [address] Vangie Devine HDL NORMAL > or = 60 mg/dl - LO W CARDIOVASCULAR RISK <40 mg/dl - HIGH CARDIOVASCULAR RISK Normal [facility] Comment on above: Performed By: #### C BC #### [facility] [address] [place] [address] Dr. Vangie Devine LDL CALC NORMAL SEE BELOW Normal [facility] Comment on above: Result Comment: <100 mg/dl OPTIMAL 100 - 129 mg/dl NEAR OR ABOVE OPTIMAL 130 - 159 mg/dl BORDERLINE HIGH 160 - 189 mg/dl HIGH >190 mg/dl VERY HIGH Performed By: #### C BC #### [facility] [address] [address] [address] Vangie Devine Triglyceride [Mass/Vol] 86 mg/dL Normal <=150 [facility] Comment on above: Performed By: #### C BC #### [facility] [address] [place] [address] Dr. Vangie Devine VLDL CALC 17.2 mg/dL Normal [facility] Comment on above: Performed By: #### C BC #### [facility] [address] [place] [address] Dr. Vangie Devine PROF 14(COMP METB)on 022 Albumin [Mass/Vol] 3.5 g/dL Normal 3.4-5.0 [facility] Comment on above: Performed By: #### C BC #### [facility] [address] [place] [address] Dr. Vangie Devine Albumin/Globulin [Mass ratio] 0.9 {ratio} Normal [facility] Comment on above: Performed By: #### C BC #### [facility] [address] [place] [address] Dr. Vangie Devine ALP [Catalytic activity/Vol] 127 U/L Critically high 46-116 [facility] Comment on above: Performed By: #### C BC #### [facility] [address] [place] [address] Dr. Vangie Devine ALT [Catalytic activity/Vol] 29 U/L Normal 14-59 [facility] Comment on above: Performed By: #### C BC #### [facility] [address] [place] [address] Dr. Vangie Devine Anion gap [Moles/Vol] 15.3 mmol/L Normal [facility] Comment on above: Performed By: #### C BC #### [facility] [address] [place] [address] Dr. Vangie Devine AST [Catalytic activity/Vol] 21 U/L Normal 15-37 [facility] Comment on above: Performed By: #### C BC #### [facility] [address] [place] [address] Dr. Vangie Devine Bilirubin [Mass/Vol] 0.5 mg/dL Normal 0.2-1.0 [facility] Comment on above: Performed By: #### C BC #### [facility] [address] [place] [address] Dr. Vangie Deivne Calcium [Mass/Vol] 8.9 mg/dL Normal 8.5-10.1 [facility] Comment on above: Performed By: #### C BC #### [facility] [address] [place] [address] Dr. Vangie Devine Chloride [Moles/Vol] 101 mmol/L Normal 98-107 [facility] Comment on above: Performed By: #### C BC #### [facility] [address] [place] [address] Dr. Vangie Devine CO2 [Moles/Vol] 25.8 mmol/L Normal 21.0-32.0 [facility] Comment on above: Performed By: #### C BC #### [facility] [address] [place] [address] Dr. Vangie Devine Creatinine [Mass/Vol] 0.89 mg/dL Normal 0.55-1.02 [facility] Comment on above: Performed By: #### C BC #### [facility] [address] [place] [address] Dr. Vangie Devine EGFR-AF [place] >60 Normal >=60 [facility] Comment on above: Performed By: #### C BC #### [facility] [address] [place] [address] Dr. Vangie Devine EGFR-NON AF [place] >60 Normal >=60 [facility] Comment on above: Performed By: #### C BC #### [facility] [address] [place] [address] Dr. Vangie Devine Globulin (S) [Mass/Vol] 4.1 g/dL Normal [facility] Comment on above: Performed By: #### C BC #### [facility] [address] [address] [address] Vangie Devine Glucose [Mass/Vol] 94 mg/dL Normal 74-106 [facility] Comment on above: Performed By: #### C BC #### [facility] [id number] Vangie Devine Potassium [Moles/Vol] 5.1 mmol/L Normal 3.5-5.1 [facility] Comment on above: Performed By: #### C BC #### [facility] [address] [address] [address] Vangie Devine Protein [Mass/Vol] 7.6 g/dL Normal 6.4-8.2 [facility] Comment on above: Performed By: #### C BC #### [facility] [address] [address] [address] Vangie Devine Sodium [Moles/Vol] 137 mmol/L Normal 136-145 [facility] Comment on above: Performed By: #### C BC #### [facility] [address] [address] [address] Vangie Devine Urea nitrogen [Mass/Vol] 9.0 mg/dL Normal 7.0-18.0 [facility] Comment on above: Performed By: #### C BC #### [facility] [address] [address] [address] Vangie Devine Urea nitrogen/Creatinine [Mass ratio] 10.1 mg/mg Normal [facility] Comment on above: Performed By: #### C BC #### [facility] [id number] 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 Normal sinus rhythm with anteroseptal wall AL. Stress Stage Data: + +-- -+------+-------+ HR Sys BP Granados BP + +-- -+------+-------+ Baseline Resting 79 104 64 + +-- -+------+-------+ Baseline Standing 78 106 70 + +-- -+------+-------+ Stage I 131 128 68 + +-- -+------+-------+ Stage II 144 148 70 + +-- -+------+-------+ Recovery ECG: The heart rate recovery was normal. + +---+--- ---+-------+ HR Sys BP Granados BP + +---+--- ---+-------+ Recovery I 144 152 68 + +---+--- ---+-------+ Recovery II 134 154 66 + +---+--- ---+-------+ Recovery III 101 136 74 + +---+--- ---+-------+ Recovery IV 93 118 78 + +---+--- ---+-------+ Summary: 1. Graded exercise stress test with no diagnostic ST-T changes for ischemia. 2. No provoked chest pain. 3. Occasional PVCs. 4. Appropriate hemodynamic response to exercise. 5. Limited exercise tolerance. 6. Recommend referral to cardiac rehab. 7. The adequate level of stress was achieved. [id number] Myke Levin MD Electronically signed on 01/26/2022 at 5:41:45 PM Final Normal [facility] Cardiac Stress Test [facility] y 250 DO Work Phone: Tobacco Screening.on 022 Adult depression screening assessment Yes [facility]-Jack[facility] y 250 DO Work Phone: Adult depression screening assessment No [facility]Jackelyn y 250 DO Work Phone: Fall risk assessment c) Not medically indicated [facility] Cleo y 250 DO Work Phone: Tobacco use status [facility] b) No [facility] Cleo hurtado 250 DO Work Phone: Tobacco Screening. 0-Not at all [facility] hurtado 250 DO Work Phone: Tobacco Screening. 1-Several days [facility] Cleo Dominguez DO Work Phone: Tobacco Screening. 2-More than half the days [facility] Cleo Dominguez DO Work Phone: Tobacco Screening. Not difficult at all [facility] Cleo Dominguez DO Work Phone: Laboratory - Coagulationon 0 01-17-2022 INR Coag (Bld) [Relative time] 1.56 {INR} [facility] Cleo Dominguez DO Work Phone: PROTIMEon 01-17-2022 INR Coag (PPP) [Relative time] 1.56 {INR} Normal [facility] Comment on above: Performed By: #### C JOBY #### [facility] [address] [place] [address] Dr. Vangie Devine INR GUIDELINES SEE BELOW Normal [facility] Comment on above: Result Comment: MARY ANN RED INR: 2.0 - 3.0 CONDITIONS NOT LISTED BELOW 2.5 - 3.5 FOR PROSTHETIC HEART VALVE REPLACEMENT 2.5 - 3.5 RECURRENT THROMBOSIS Performed By: #### C JOBY #### [facility] [address] [place] [address] Dr. Vangie Devine PT Coag (PPP) [Time] 16.4 s Critically high 9.0-11.6 [facility] Comment on above: Performed By: #### C JOBY #### [facility] [address] [address] [address] Vangie Devine Activated partial thrombopla stin time (aPTT) in platelet poor plasma by coagulation aOrdered By: Isidra Garibay on 01-14-2022 aPTT Coag (PPP) [Time] 34.5 s 25.1-36.5 [facility] Basic Metabolic Panelon 060 Calcium [Mass/Vol] 8.5 mg/dL Normal 8.2-10.2 [facility] Comment on above: Performed By: #### B MP #### [facility] [address] [place] [address] [place] Chloride [Moles/Vol] 99 mmol/L Normal 95-114 [facility] Comment on above: Performed By: #### B MP #### [facility] [address] CO2 [Moles/Vol] 21.8 mmol/L Low 22.0-30.0 [facility] Comment on above: Performed By: #### B MP #### [facility] [address] Creatinine [Mass/Vol] 0.69 mg/dL Normal 0.44-1.[address] [facility] Comment on above: Performed By: #### B MP #### [place] [address] [place] Creatinine Clr Calc Pharmacy 94.39 [facility] Comment on above: Result Comment: PERF ORMED BY: [place] [address] PATHOLOGIST DENT REMOVER QUINN MAGALLON M.D. Performed By: #### B MP #### [address] Estimated GFR ( Renea > 60 Normal [facility] Comment on above: Result Comment: GFR estimated reference range: According to KDOQI guidelines, <60 ml/min/1.73m2 is sufficient to diagnose a patient with chronic kidney disease. Performed By: #### B MP #### [facility] [address] [place] [address] [place] Estimated GFR (Non- Am > 60 Normal [facility] Comment on above: Performed By: #### B MP #### [facility] [address] [place] [address] [place] Glucose [Mass/Vol] 101 mg/dL High 70-100 [facility] Comment on above: Result Comment: [place] Glucose Reference Range is dependent on time and content of last meal. Glucose of more than 200 mg/dL in a nonstressed, ambulatory subject supports the diagnosis of Diabetes Mellitus. ADA recommended reference range Performed By: #### B MP #### [facility] [address] Potassium [Moles/Vol] 4.2 mmol/L Normal 3.5-5.[address] [facility] Comment on above: Performed By: #### B MP #### [facility] [address] Sodium [Moles/Vol] 129 mmol/L Low 136-146 [facility] Comment on above: Performed By: #### B MP #### [facility] [address] [place] [address] [place] Urea nitrogen [Mass/Vol] 8 mg/dL Low 9-23 [facility] Comment on above: Performed By: #### B MP #### [facility] [address] [place] [address] [place] Creatinine and Glomerular fi ltration rate.predicted panel (S/P/Bld)Ordered By: Isidra Garibay on 01-14-2022 Creatinine [Mass/Vol] 0.69 mg/dL 0.44-1.[address] [facility] Estimated glomerular filtrat ion rate (GFR) non- AmericanOrdered By: Isidra Garibay on 01-14-2022 GFR/1.73 sq M.predicted among non-blacks MDRD (S/P/Bld) [Vol rate/Area] > 60 mL/Min [facility] Laboratory - CoagulationOrde red By: Isidra Garibay on 01-14-2022 PT Coag (PPP) [Time] 17.7 s 9.0-12.9 [facility] No Panel InformationOrdered By: Isidra Garibay on 01-14-2022 Estimated GFR () > 60 mL/Min [facility] Comment on above: GFR estimated refere nce range: According to KDOQI guidelines, <60 ml/min/1.73m2 is sufficient to diagnose a patient with chronic kidney disease. Pharmacy Creatinine Clearance (Chem 94.39 [facility] Partial Thromboplastin Timeo n 01-14-2022 aPTT Coag (Bld) [Time] 34.5 s Normal 25.1-36.5 [facility] Comment on above: Order Comment: List the anticoagulant: HEPARIN, UNFRACTIONATED Result Comment: PERF ORMED BY: [place] [address] PATHOLOGIST DENT REMOVER QUINN MAGALLON M.D. Performed By: #### P TT #### [address] [address] [facility] aPTT Coag (Bld) [Time] 97.0 s Off scale high 25.1-36.5 [facility] Comment on above: Order Comment: List the anticoagulant: HEPARIN, UNFRACTIONATED Result Comment: Resu lts called at 1036 on 01/14/22 PERFORMED BY: [place] [address] PATHOLOGIST DENT REMOVER QUINN MAGALLON M.D. Performed By: #### P TT #### [address] [address] [facility] aPTT Coag (Bld) [Time] 90.6 s Off scale high 25.1-36.5 [facility] Comment on above: Result Comment: Resu lts called at 0312 on 01/14/22 PERFORMED BY: [place] [address] PATHOLOGIST DENT REMOVER QUINN MAGALLON M.D. Performed By: #### P TT #### [address] [address] [facility] Platelet poor plasma interna tional normalized ratio (INR) by coagulation assay (relatOrdered By: Isidra Garibay on 01-14-2022 INR Coag (PPP) [Relative time] 1.6 {INR} [facility] Comment on above: INR Therapeutic Rang e [...] Coag (PPP) [Relative time] 1.6 {INR} Normal [facility] Comment on above: Result Comment: INR Therapeutic [...] heart valves: 3 - 4.5 PERFORMED BY: [place] [address] [facility] DENT REMOVER QUINN MAGALLON M.D. Performed By: #### P T #### [facility] [address] [place] [address] PT Coag (PPP) [Time] 17.7 s High 9.0-12.9 [facility] Comment on above: Performed By: #### P T #### [facility] [address] [place] [address] Serum or plasma calcium ivana urement (mass/volume)Ordered By: Isidra Garibay on 01-14-2022 Calcium [Mass/Vol] 8.5 mg/dL 8.2-10.2 [facility] Serum or plasma chloride francesca surement (moles/volume)Ordered By: Isidra Garibay on 01-14-2022 Chloride [Moles/Vol] 99 mmol/L 95-114 [facility] Serum or plasma glucose ivana urement (mass/volume)Ordered By: Isidra Garibay on 01-14-2022 Glucose [Mass/Vol] 101 mg/dL 70-100 [facility] Comment on above: ADA recommended refe rence range Random Glucose Reference Range is dependent on time and content of last meal. Glucose of more than 200 mg/dL in a nonstressed, ambulatory subject supports the diagnosis of Diabetes Mellitus. Serum or plasma potassium me asurement (moles/volume)Ordered By: Isidra Garibay on 01-14-2022 Potassium [Moles/Vol] 4.2 mmol/L 3.5-5.[address] [facility] Serum or plasma sodium measu rement (moles/volume)Ordered By: Isidra Garibay on 01-14-2022 Sodium [Moles/Vol] 129 mmol/L 136-146 [facility] Serum or plasma total carbon dioxide measurement (moles/volume)Ordered By: Isidra Garibay on 01-14-2022 CO2 [Moles/Vol] 21.8 mmol/L 22.0-30.0 [facility] Serum or plasma urea nitroge n measurement (mass/volume)Ordered By: Isidra Garibay on 01-14-2022 Urea nitrogen [Mass/Vol] 8 mg/dL 9-23 [facility] Basic Metabolic Panelon 060 Calcium [Mass/Vol] 8.3 mg/dL Normal 8.2-10.2 [facility] Comment on above: Performed By: #### P TT #### [facility] [address] [place] [address] [place] Chloride [Moles/Vol] 100 mmol/L Normal 95-114 [facility] Comment on above: Performed By: #### P TT #### [facility] [address] [id number] [place] CO2 [Moles/Vol] 22.1 mmol/L Normal 22.0-30.0 [facility] Comment on above: Performed By: #### P TT #### [facility] [address] [place] [address] [place] Creatinine [Mass/Vol] 0.65 mg/dL Normal 0.44-1.[address] [facility] Comment on above: Performed By: #### P TT #### [facility] [address] [id number] [place] Creatinine Clr Calc Pharmacy 98.31 Normal [facility] Comment on above: Result Comment: PERF ORMED BY: [place] [address] PATHOLOGIST DENT REMOVER QUINN MAGALLON M.D. Performed By: #### P TT #### [address] Estimated GFR ( Renea > 60 Normal [facility] Comment on above: Result Comment: GFR estimated reference range: According to KDOQI guidelines, <60 ml/min/1.73m2 is sufficient to diagnose a patient with chronic kidney disease. Performed By: #### P TT #### [address] Estimated GFR (Non- Am > 60 Normal [facility] Comment on above: Performed By: #### P TT #### [address] Glucose [Mass/Vol] 100 mg/dL Normal 70-100 [facility] Comment on above: Result Comment: [place] Glucose Reference Range is dependent on time and content of last meal. Glucose of more than 200 mg/dL in a nonstressed, ambulatory subject supports the diagnosis of Diabetes Mellitus. ADA recommended reference range Performed By: #### P TT #### [address] Potassium [Moles/Vol] 4.0 mmol/L Normal 3.5-5.[address] [facility] Comment on above: Performed By: #### P TT #### [place] [address] [place] Sodium [Moles/Vol] 131 mmol/L Low 136-146 [facility] Comment on above: Performed By: #### P TT #### [place] [address] [place] Urea nitrogen [Mass/Vol] 9 mg/dL Normal 9-23 [facility] Comment on above: Performed By: #### P TT #### [address] ECG 12 lead ECGon 01-13-2022 ECG 12 lead ECG [facility] [place] [address] [place], [place] [id number] Electrocardiograph Report Signed Patient: Javier Link MR#: [id number] : 1970 Acct:[id number] Age/Sex: 51 / F ADM Date: 01/10/22 Loc: 4 Room: [address] [place] [address] Type: DIS IN Attending Dr: Isidra Garibay DO Ordering Provider: Isidra Garibay DO Date of Service: 01/13/2210/05/499 ECG/ECG 12 [...] MUS Signed By Lenny Joseph DO 01/13 224 Normal [facility] Partial Thromboplastin Timeo n 01-13-2022 aPTT Coag (Bld) [Time] 35.9 s Normal 25.1-36.5 [facility] Comment on above: Result Comment: PERF ORMED BY: [place] [address] PATHOLOGIST DENT REMOVER QUINN MAGALLON M.D. Performed By: #### P T #### [address] aPTT Coag (Bld) [Time] 54.7 s High 25.1-36.5 [facility] Comment on above: Result Comment: PERF ORMED BY: [address] [address] PATHOLOGIST DENT REMOVER QUINN MAGALLON M.D. Performed By: #### B MP #### [address] aPTT Coag (Bld) [Time] 80.7 s High 25.1-36.5 [facility] Comment on above: Result Comment: PERF ORMED BY: [place] [address] PATHOLOGIST DENT REMOVER QUINN MAGALLON M.D. Performed By: #### P T #### [address] Prothrombin Time INRon 01-13 INR Coag (PPP) [Relative time] 1.4 {INR} Normal [facility] Comment on above: Result Comment: INR Therapeutic [...] 4.5 Performed By: #### P T #### [address] PT Coag (PPP) [Time] 15.3 s High 9.0-12.9 [facility] Comment on above: Performed By: #### P T #### [address] Basic Metabolic Panelon 06-0 Calcium [Mass/Vol] 8.4 mg/dL Normal 8.2-10.2 [facility] Comment on above: Performed By: #### P T #### [address] Chloride [Moles/Vol] 99 mmol/L Normal 95-114 [facility] Comment on above: Performed By: #### P T #### [address] CO2 [Moles/Vol] 22.6 mmol/L Normal 22.0-30.0 [facility] Comment on above: Performed By: #### P T #### [address] Creatinine [Mass/Vol] 0.58 mg/dL Normal 0.44-1.[address] [facility] Comment on above: Performed By: #### P T #### [place] [address] [place] Creatinine Clr Calc Pharmacy 111.20 [facility] Comment on above: Result Comment: PERF ORMED BY: [place] [address] PATHOLOGIST DENT REMOVER QUINN MAGALLON M.D. Performed By: #### P T #### [address] Estimated GFR ( Renea > 60 [facility] Comment on above: Result Comment: GFR estimated reference range: According to KDOQI guidelines, <60 ml/min/1.73m2 is sufficient to diagnose a patient with chronic kidney disease. Performed By: #### P T #### [address] Estimated GFR (Non- Am > 60 [facility] Comment on above: Performed By: #### P T #### [address] Glucose [Mass/Vol] 115 mg/dL High 70-100 [facility] Comment on above: Result Comment: [place] om Glucose Reference Range is dependent on time and content of last meal. Glucose of more than 200 mg/dL in a nonstressed, ambulatory subject supports the diagnosis of Diabetes Mellitus. ADA recommended reference range Performed By: #### P T #### [address] Potassium [Moles/Vol] 3.3 mmol/L Low 3.5-5.[address] [facility] Comment on above: Performed By: #### P T #### [place] [address] [place] Sodium [Moles/Vol] 131 mmol/L Low 136-146 [facility] Comment on above: Performed By: #### P T #### [facility] [address] [place] [address] Urea nitrogen [Mass/Vol] 5 mg/dL Low 9-23 [facility] Comment on above: Performed By: #### P T #### [address] Coagulation Profileon 2021 aPTT Coag (Bld) [Time] 51.3 s High 25.1-36.5 [facility] Comment on above: Result Comment: PERF ORMED BY: [place] [address] PATHOLOGIST DENT REMOVER QUINN MAGALLON M.D. Performed By: #### P T #### [address] INR Coag (PPP) [Relative time] 1.2 {INR} Normal [facility] Comment on above: Result Comment: INR Therapeutic [...] 4.5 Performed By: #### P T #### [address] PT Coag (PPP) [Time] 13.6 s High 9.0-12.9 [facility] Comment on above: Performed By: #### P T #### [address] ECG 12 lead ECGon 01-12-2022 ECG 12 lead ECG [facility] [place] [address] [place] [address] Electrocardiograph Report Signed Patient: Javier Link MR#: [id number] 89 : 1970 Acct:[id number] Age/Sex: 51 / F ADM Date: 01/10/22 Loc: 4P Room: [address] [place] [address] Type: DIS IN Attending Dr: Isidra Garibay DO Ordering Provider: Isidra Garibay DO Date of Service: 01/12/2209/04/499 ECG/ECG 12 [...] By Lenny Joseph DO 01/12 1843 Normal [facility] Glucose Poct Glucometerson 0 01-12-2022 Glucose [Mass/Vol] 118 mg/dL Normal [facility] Comment on above: Result Comment: [facility] Glucose Reference Range is dependent on time and content of last meal. Glucose of more than 200 mg/dL in a nonstressed, ambulatory subject supports the diagnosis of Diabetes Mellitus. PERFORMED BY: [facility] [address] [place] [address] PATHOLOGIST DENT REMOVER QUINN MAGALLON M.D. Performed By: #### G LULS #### Point of Care testing , Partial Thromboplastin Timeo n 01-12-2022 aPTT Coag (Bld) [Time] 53.0 s High 25.1-36.5 [facility] Comment on above: Order Comment: Quant ity not sufficient. Please resubmit. Result Comment: PERF ORMED BY: [facility] [address] [place] [address] PATHOLOGIST DENT REMOVER QUINN MAGALLON M.D. Performed By: #### P T #### [address] aPTT Coag (Bld) [Time] 44.2 s High 25.1-36.5 [facility] Comment on above: Result Comment: PERF ORMED BY: [place] [address] PATHOLOGIST DENT REMOVER QUINN MAGALLON M.D. Performed By: #### P T #### [address] aPTT Coag (Bld) [Time] 44.5 s High 25.1-36.5 [facility] Comment on above: Result Comment: PERF ORMED BY: [place] [address] PATHOLOGIST DENT REMOVER QUINN MAGALLON M.D. Performed By: #### P TT #### [address] Prothrombin Time INRon 01-12 INR Coag (PPP) [Relative time] 1.2 {INR} Normal [facility] Comment on above: Result Comment: INR Therapeutic [...] heart valves: 3 - 4.5 PERFORMED BY: [place] [address] PATHOLOGIST DENT REMOVER QUINN MAGALLON M.D. Performed By: #### P T #### [address] PT Coag (PPP) [Time] 13.9 s High 9.0-12.9 [facility] Comment on above: Performed By: #### P T #### [address] INR Coag (PPP) [Relative time] 1.2 {INR} Normal [facility] Comment on above: Order Comment: List the [...] heart valves: 3 - 4.5 PERFORMED BY: [place] [address] PATHOLOGIST DENT REMOVER QUINN MAGALLON M.D. Performed By: #### P T #### [facility] [address] [place] [address] PT Coag (PPP) [Time] 13.4 s High 9.0-12.9 [facility] Comment on above: Order Comment: List the anticoagulant: HEPARIN/COUMADIN Performed By: #### P T #### [facility] [address] [place] [address] Albumin [Mass/volume] in Ser um or PlasmaOrdered By: Isidra Garibay on 01-11-2022 Albumin [Mass/Vol] 2.9 g/dL 3.2-5.5 [facility] Cholesterol [Mass/volume] in Serum or PlasmaOrdered By: Isidra Garibay on 01-11-2022 Cholesterol [Mass/Vol] 109 mg/dL 140-200 [facility] Comment on above: Chol less than 200 m g/dl low risk Chol 201-239 mg/dl borderline risk Chol 240 mg/dl and greater high risk Cholesterol in LDL Calc [Mas s/Vol]Ordered By: Isidra Garibay on 01-11-2022 Cholesterol in LDL [Mass/Vol] 49 mg/dL 0-100 [facility] Comment on above: LDL ATP III CLASSIFI CATION LDL less than 100 mg/dL Optimal LDL 100-129 mg/dL Near or above optimal LDL 130-159 mg/dL Borderline high LDL 160-189 mg/dL High LDL greater than 189 mg/dL Very high Cholesterol in VLDL Calc [Ma ss/Vol]Ordered By: Isidra Garibay on 01-11-2022 Cholesterol in VLDL [Mass/Vol] 16 mg/dL [facility] Comprehensive Metabolic Pane gaurav 01-11-2022 Albumin [Mass/Vol] 2.9 g/dL Low 3.2-5.5 [facility] Comment on above: Performed By: #### B MP #### [facility] [address] [place] [address] Albumin/Globulin [Mass ratio] 0.9 {ratio} Normal [facility] Comment on above: Performed By: #### B MP #### [facility] [address] [place] [address] ALP [Catalytic activity/Vol] 85 U/L Normal 32-92 [facility] Comment on above: Performed By: #### B MP #### [address] ALT [Catalytic activity/Vol] 58 U/L Normal 10-60 [facility] Comment on above: Performed By: #### B MP #### [facility] [address] [place] [address] AST [Catalytic activity/Vol] 212 U/L High 10-42 [facility] Comment on above: Performed By: #### B MP #### [facility] [address] [place] [address] Bilirubin [Mass/Vol] 0.6 mg/dL Normal 0.3-1.2 [facility] Comment on above: Performed By: #### B MP #### [facility] [address] [place] [address] [place] Calcium [Mass/Vol] 8.3 mg/dL Normal 8.2-10.2 [facility] Comment on above: Performed By: #### B MP #### [facility] [address] [place] [address] [place] Chloride [Moles/Vol] 96 mmol/L Normal 95-114 [facility] Comment on above: Performed By: #### B MP #### [facility] [address] [place] [address] [place] CO2 [Moles/Vol] 18.5 mmol/L Low 22.0-30.0 [facility] Comment on above: Performed By: #### B MP #### [facility] [address] Creatinine [Mass/Vol] 0.69 mg/dL Normal 0.44-1.[address] [facility] Comment on above: Performed By: #### B MP #### [facility] [address] [place] [address] [place] Creatinine Clr Calc Pharmacy 93.47 [facility] Comment on above: Performed By: #### B MP #### [address] Estimated GFR ( Renea > 60 [facility] Comment on above: Result Comment: GFR estimated reference range: According to KDOQI guidelines, <60 ml/min/1.73m2 is sufficient to diagnose a patient with chronic kidney disease. Performed By: #### B MP #### [address] Estimated GFR (Non- Am > 60 [facility] Comment on above: Performed By: #### B MP #### [address] Globulin (S) [Mass/Vol] 3.1 g/dL [facility] Comment on above: Performed By: #### B MP #### [address] Glucose [Mass/Vol] 131 mg/dL High 70-100 [facility] Comment on above: Result Comment: [place] Glucose Reference Range is dependent on time and content of last meal. Glucose of more than 200 mg/dL in a nonstressed, ambulatory subject supports the diagnosis of Diabetes Mellitus. ADA recommended reference range Performed By: #### B MP #### [address] Potassium [Moles/Vol] 3.4 mmol/L Low 3.5-5.[address] [facility] Comment on above: Performed By: #### B MP #### [address] Protein [Mass/Vol] 6.0 g/dL Low 6.1-7.9 [facility] Comment on above: Performed By: #### B MP #### [facility] [address] Sodium [Moles/Vol] 125 mmol/L Low 136-146 [facility] Comment on above: Performed By: #### B MP #### [facility] [address] Urea nitrogen [Mass/Vol] 7 mg/dL Low 9-23 [facility] Comment on above: Performed By: #### B MP #### [facility] [address] ECG 12 lead ECGon 01-11-2022 ECG 12 lead ECG [facility] [place] [address] [place] [address] Electrocardiograph Report Signed Patient: Javier Link MR#: [id number] [birth year] : 1970 Acct:[id number] Age/Sex: 51 / F ADM Date: 01/10/22 Loc: Room: [address] [place] [address] Type: DIS IN Attending Dr: Isidra Garibay DO Ordering Provider: Isidra Garibay DO Date of Service: 01/11/22 ECG/ECG 12 [...] MUS Signed By Lenny Joseph DO 01/11 1851 Normal [facility] ECH echo transthoracicon [facility] echo transthoracic [facility] Main [place] [address] [place] [address] Echocardiogram Signed Patient: Javier Link MR#: [id number] 89 : 1970 Acct:[id number] Age/Sex: 51 / F ADM Date: 01/10/22 Loc: Room: [address] [place] [address] Type: DIS IN Attending Dr: Isidra Garibay DO Ordering Provider: Isidra Garibay DO Date of Service: 01/11/22 [facility] echo transthoracic: Anterolateral STEMI Copies to: DO [...] Performed At: 01/11/22 1138 Signed By: Nolan Avendaño MD 01/11/22 1316 [facility] Globulin Calc (S) [Mass/Vol] Ordered By: Isidra Garibay on 01-11-2022 Globulin (S) [Mass/Vol] 3.1 g/dL [facility] Glucose Glucometer (BldC) [M ass/Vol]Ordered By: Isidra Garibay on 01-11-2022 Glucose [Mass/Vol] 118 mg/dL [facility] Comment on above: Random Glucose Refer ence Range is dependent on time and content of last meal. Glucose of more than 200 mg/dL in a nonstressed, ambulatory subject supports the diagnosis of Diabetes Mellitus. Glucose Poct Glucometerson 0 01-11-2022 Commemt1 Glu2: Cleaned Meter [facility] Comment on above: Result Comment: PERF ORMED BY: [facility] [address] [place] [address] PATHOLOGIST DENT REMOVER QUINN MAGALLON M.D. Performed By: #### B MP #### [address] Glucose [Mass/Vol] 135 mg/dL Normal [facility] Comment on above: Result Comment: [place] om Glucose Reference Range is dependent on time and content of last meal. Glucose of more than 200 mg/dL in a nonstressed, ambulatory subject supports the diagnosis of Diabetes Mellitus. Performed By: #### B MP #### [address] Glucose [Mass/Vol] 128 mg/dL Normal [facility] Comment on above: Result Comment: [place] om Glucose Reference Range is dependent on time and content of last meal. Glucose of more than 200 mg/dL in a nonstressed, ambulatory subject supports the diagnosis of Diabetes Mellitus. PERFORMED BY: [place] [address] PATHOLOGIST DENT REMOVER QUINN MAGALLON M.D. Performed By: #### B MP #### [address] Glucose [Mass/Vol] 126 mg/dL Normal [facility] Comment on above: Result Comment: [place] om Glucose Reference Range is dependent on time and content of last meal. Glucose of more than 200 mg/dL in a nonstressed, ambulatory subject supports the diagnosis of Diabetes Mellitus. PERFORMED BY: [place] [address] PATHOLOGIST DENT REMOVER QUINN MAGALLON M.D. Performed By: #### P TT #### [address] Lipid Panelon 01-11-2022 Cholesterol [Mass/Vol] 109 mg/dL Low 140-200 [facility] Comment on above: Result Comment: Chol less than 200 mg/dl low risk Chol 201-239 mg/dl borderline risk Chol 240 mg/dl and greater high risk Performed By: #### B MP #### [place] [id number] [place] Cholesterol in HDL [Mass/Vol] 43 mg/dL Normal 35-85 [facility] Comment on above: Result Comment: HDL CHOL ATP-III CLASSIFICATION Cardiovascular Risk HDL > or equal to 60 mg/dL LOW HDL < 40 mg/dL HIGH Performed By: #### B MP #### [facility] [address] Cholesterol.total/Chol esterol in HDL [Mass ratio] 2.5 {ratio} Normal <5.0 [facility] Comment on above: Result Comment: PERF ORMED BY: [place] [address] PATHOLOGIST DENT REMOVER QIUNN MAGALLON M.D. Performed By: #### B MP #### [address] LDL Cholesterol,Calculated 49 mg/dL Normal 0-100 [facility] Comment on above: Result Comment: LDL ATP III CLASSIFICATION LDL less than 100 mg/dL Optimal LDL 100-129 mg/dL Near or above optimal LDL 130-159 mg/dL Borderline high LDL 160-189 mg/dL High LDL greater than 189 mg/dL Very high Performed By: #### B MP #### [address] Triglyceride w/Reflex 83 mg/dL Normal 35-[address] [facility] Comment on above: Result Comment: TRIG ATP III CLASSIFICATION TRIG less than 150 mg/dL Normal TRIG 150-199 mg/dL Borderline high TRIG 200-500 mg/dL High TRIG greater than 500 mg/dL Very high Standard traceable to the Center for Disease Conrtrol and Prevention (CDC) test method. Performed By: #### B MP #### [facility] [address] VLDL CHOLESTEROL 16 mg/dL Normal [facility] Comment on above: Performed By: #### B MP #### [address] No Panel InformationOrdered By: Isidra Garibay on 01-11-2022 Bedside Glucose Comment Glu2: cleaned meter [facility] Partial Thromboplastin Timeo n 01-11-2022 aPTT Coag (Bld) [Time] 43.1 s High 25.1-36.5 [facility] Comment on above: Result Comment: PERF ORMED BY: [facility] [address] [place] [address] PATHOLOGIST DENT REMOVER QUINN MAGALLON M.D. Performed By: #### P TT #### [facility] [address] aPTT Coag (Bld) [Time] 41.3 s High 25.1-36.5 [facility] Comment on above: Result Comment: PERF ORMED BY: [address] [place] [address] PATHOLOGIST DENT REMOVER QUINN MAGALLON M.D. Performed By: #### P TT #### [facility] [address] [place] [place] [address] aPTT Coag (Bld) [Time] 53.9 s High 25.1-36.5 [facility] Comment on above: Result Comment: PERF ORMED BY: [address] [place] [address] PATHOLOGIST DENT REMOVER QUINN MAGALLON M.D. Performed By: #### P TT #### [facility] [address] [place], [place] [id number] [facility] Protein [Mass/volume] in Ser um or PlasmaOrdered By: Isidra Garibay on 01-11-2022 Protein [Mass/Vol] 6.0 g/dL 6.1-7.9 [facility] Prothrombin Time INRon 01-11 INR Coag (PPP) [Relative time] 1.1 {INR} Normal [facility] Comment on above: Result Comment: INR Therapeutic [...] heart valves: 3 - 4.5 PERFORMED BY: [place] [address] PATHOLOGIST DENT REMOVER QUINN MAGALLON M.D. Performed By: #### B MP #### [facility] [address] [place] [address] PT Coag (PPP) [Time] 12.3 s Normal 9.0-12.9 [facility] Comment on above: Performed By: #### B MP #### [facility] [address] [place] [address] Serum or plasma alanine gore otransferase measurement without P-5'-P (enzymatic activiOrdered By: Isidra Garibay on 01-11-2022 ALT No additional P-5'-P [Catalytic activity/Vol] 58 U/L 10-60 [facility] Serum or plasma albumin/glob ulin mass ratioOrdered By: Isidra Garibay on 01-11-2022 Albumin/Globulin [Mass ratio] 0.9 {ratio} [facility] Serum or plasma alkaline carl sphatase measurement (enzymatic activity/volume)Ordered By: Isidra Garibay on 01-11-2022 ALP [Catalytic activity/Vol] 85 U/L 32-92 [facility] Serum or plasma aspartate am inotransferase measurement (enzymatic activity/volume)Ordered By: Isidra Garibay on 01-11-2022 AST [Catalytic activity/Vol] 212 U/L 10-42 [facility] Serum or plasma high density lipoprotein (HDL) cholesterol measurementOrdered By: Isidra Garibay on 01-11-2022 Cholesterol in HDL [Mass/Vol] 43 mg/dL 35-85 [facility] Comment on above: HDL CHOL ATP-III CLA SSIFICATION Cardiovascular Risk HDL > or equal to 60 mg/dL LOW HDL < 40 mg/dL HIGH Serum or plasma total biliru bin measurement (mass/volume)Ordered By: Isidra Garibay on 01-11-2022 Bilirubin [Mass/Vol] 0.6 mg/dL 0.3-1.2 [facility] Serum or plasma total choles terol/high density lipoprotein (HDL) cholesterol mass ratOrdered By: Isidra Garibay on 01-11-2022 Cholesterol.total/Chol esterol in HDL [Mass ratio] 2.5 {ratio} [facility] Triglyceride [Mass/volume] i n Serum or PlasmaOrdered By: Isidra Garibay on 01-11-2022 Triglyceride [Mass/Vol] 83 mg/dL 35-149 [facility] Comment on above: TRIG ATP III CLASSIF ICATION TRIG less than 150 mg/dL Normal TRIG 150-199 mg/dL Borderline high TRIG 200-500 mg/dL High TRIG greater than 500 mg/dL Very high Standard traceable to the Center for Disease Conrtrol and Prevention (CDC) test method. Troponin I High Sensitivityo n 01-11-2022 Troponin I High Sensitivity 12158 pg/mL Off scale high 0-15 [facility] Comment on above: Result Comment: Resu lts called at 0805 on 01/11/22 PERFORMED BY: [place] [address] PATHOLOGIST DENT REMOVER QUINN MAGALLON M.D. Performed By: #### B MP #### [address] Troponin I High Sensitivity 151446 pg/mL Off scale high [address] Comment on above: Order Comment: iván hart rn [facility] Result Comment: Resu lts called at 0040 on 01/11/22 PERFORMED BY: [place] [address] PATHOLOGIST DENT REMOVER QUINN MAGALLON M.D. Performed By: #### P TT #### [facility] [address] [place] [address] Troponin I.cardiac [Mass/vol ume] in Serum or Plasma by High sensitivity methodOrdered By: Isidra Garibay on 01-11-2022 Troponin I.cardiac High sensitivity method [Mass/Vol] 46968 pg/mL 0-15 [facility] Comment on above: Results called at 0805 on 01/11/22 XR chest 1V portableon 01-11 XR chest 1V portable [facility] [place] [address] [place] [address] XRay Report Signed Patient: Javier Link MR#: [id number] 89 : 1970 Acct:[id number] Age/Sex: 51 / F ADM Date: 01/10/22 Loc: Room: 7L6234-4 Type: ADM IN Attending Dr: Isidra Garibay DO Ordering Provider: Isidra Garibay DO Date of Service: 01/11/22 XR/XR chest 1V portable: Intra-aortic balloon pump, anterior STEMI, CHF Copies to: Isidra Garibay DO XR chest 1V portable 01/10/2022 1:00 [...] Chastity Humphreys M.D.01/11/2022 8:19 AM Dictation Location: [place] [address] Transcribed By: [facility] 01/11/22818 Dictated By: Chastity Humphreys II, MD 01/11/22813 Signed By: 01/11/22818 [facility] AMYLASEon 01-10-2022 Amylase [Catalytic activity/Vol] 37 U/L Normal 25-115 [facility] Comment on above: Performed By: #### C BC #### [facility] [address] [place] [address] [address] Vangie Devine Basic Metabolic Panelon 12-14 Calcium [Mass/Vol] 8.7 mg/dL Normal 8.2-10.2 [facility] Comment on above: Performed By: #### P TT #### [facility] [address] Chloride [Moles/Vol] 99 mmol/L Normal 95-114 [facility] Comment on above: Performed By: #### P TT #### [facility] [address] [place] [address] [place] CO2 [Moles/Vol] 20.2 mmol/L Low 22.0-30.0 [facility] Comment on above: Performed By: #### P TT #### [facility] [address] Creatinine [Mass/Vol] 0.72 mg/dL Normal 0.44-1.[address] [facility] Comment on above: Performed By: #### P TT #### [place] [address] [place] Creatinine Clr Calc Pharmacy 90.46 [facility] Comment on above: Performed By: #### P TT #### [address] Estimated GFR ( Ernea > 60 [facility] Comment on above: Result Comment: GFR estimated reference range: According to KDOQI guidelines, <60 ml/min/1.73m2 is sufficient to diagnose a patient with chronic kidney disease. Performed By: #### P TT #### [address] Estimated GFR (Non- Am > 60 [facility] Comment on above: Performed By: #### P TT #### [address] Glucose [Mass/Vol] 137 mg/dL High 70-100 [facility] Comment on above: Result Comment: [place] om Glucose Reference Range is dependent on time and content of last meal. Glucose of more than 200 mg/dL in a nonstressed, ambulatory subject supports the diagnosis of Diabetes Mellitus. ADA recommended reference range Performed By: #### P TT #### [place] [address] [place] Potassium [Moles/Vol] 3.8 mmol/L Normal 3.5-5.[address] [facility] Comment on above: Performed By: #### P TT #### [place] [address] [place] Sodium [Moles/Vol] 130 mmol/L Low 136-146 [facility] Comment on above: Performed By: #### P TT #### [facility] [address] Urea nitrogen [Mass/Vol] 9 mg/dL Normal 9- [facility] Comment on above: Performed By: #### P TT #### [facility] [address] [place] [id number] [facility] CARDIAC CHASTITY ADMITon 022 CK [Catalytic activity/Vol] 206 U/L Critically high - [facility] Comment on above: Performed By: #### C BC #### [facility] [address] [place] [address] [address] Vangie Devine CK.MB [Mass/Vol] 3.65 ng/mL Critically high <=3.60 [facility] Comment on above: Performed By: #### C BC #### [facility] [address] [place] [address] Dr. Vangie Devine HSTROP 80.4 pg/mL Critically high 4.0-51.3 [facility] Comment on above: Result Comment: CUT- OFF POINTS HAVE BEEN ESTABLISHED BASED ON THE FOURTH UNIVERSAL DEFINITIONS OF MYOCARDIAL INFARCTION. THE UPPER REFERENCE LIMIT (URL) OF TROPONIN, DEFINED THE 99TH PERCENTILE OF cTnI DISTRIBUTION IN A REFERENCE POPULATION, HAS BEEN CONFIRMED THE DECISION THRESHOLD FOR AL DIAGNOSIS. Performed By: #### C BC #### [facility] Laboratory [address] [place] [address] Dr. Vangie Devine AJ 119 ng/mL Critically high [facility] Comment on above: Performed By: #### C BC #### [facility] [address] [place] [address] Dr. Vangie Devine CBC W MANUAL DIFFon 01-11-20 22 ATYPICAL LYMPH # 0.93 103/ul Normal [facility] Comment on above: Performed By: #### C BCMAN #### [facility] [address] [place] [address] Dr. Vangie Devine ATYPICAL LYMPH % 3 % Normal [facility] Comment on above: Performed By: #### C BCMAN #### [facility] [address] [place] [address] Dr. Vangie Devine BAND # 1.6 103/ul Critically high 0.0-0.3 [facility] Comment on above: Performed By: #### C BCHERIBERTO #### [facility] [address] [place] [address] Dr. Vangie Devine BAND % 5 % Normal 0-5 [facility] Comment on above: Performed By: #### C JOBY #### [facility] [address] [place] [address] Dr. Vangie Devine BASOM # 0.00 103/ul Normal 0.00-0.10 [facility] Comment on above: Performed By: #### C JOBY #### [facility] [address] [place] [address] Dr. Vangie Devine BASOM % 0.0 % Critically low 0.2-2.0 [facility] Comment on above: Performed By: #### C JOBY #### [facility] [address] [place] [address] Dr. Vangie Devine BLAST # 0.0 103/ul Normal [facility] Comment on above: Performed By: #### C JOBY #### [facility] [address] [place] [address] Dr. Vangie Devine BLAST % Normal [facility] Comment on above: Performed By: #### C JOBY #### [facility] [address] [place] [address] Dr. Vangie Devine CORRECTED WBC Normal 4.0-11.0 [facility] Comment on above: Performed By: #### C JOBY #### [facility] [address] [place] [address] Dr. Vangie Devine EOS # 0.00 103/ul Normal 0.00-0.70 [facility] Comment on above: Performed By: #### C JOBY #### [facility] [address] [place] [address] Dr. Vangie Devine EOS% 0.0 % Critically low 0.9-7.0 [facility] Comment on above: Performed By: #### C JOBY #### [facility] [address] [place] [address] Dr. Vangie Devine HCT 42.0 % Normal 36.0-48.0 [facility] Comment on above: Performed By: #### C JOBY #### [facility] [address] [place] [address] Dr. Vangie Devine HGB 14.6 g/dl Normal 12.0-16.0 [facility] Comment on above: Performed By: #### C JOBY #### [facility] [address] [place] [address] Dr. Vangie Devine HYPERSEG NEUT 1+ Normal [facility] Comment on above: Performed By: #### C JOBY #### [facility] [address] [place] [address] Dr. Vangie Devine LYMPHM # 4.03 103/ul Critically high 1.20-3.80 [facility] Comment on above: Performed By: #### C JOBY #### [facility] [address] [place] [address] Dr. Vangie Devine LYMPHM% 13.0 % Critically low 20.5-60.0 [facility] Comment on above: Performed By: #### C JOBY #### [facility] [address] [place] [address] Dr. Vangie Devine MCH 32.7 pg Normal 26.7-34.0 [facility] Comment on above: Performed By: #### C JOBY #### [facility] [address] [place] [address] Dr. Vangie Devine MCHC 34.8 g/dl Normal 29.9-35.2 [facility] Comment on above: Performed By: #### C JOBY #### [facility] [address] [place] [address] Dr. Vangie Devine MCV 94.2 fL Normal 81.0-99.0 [facility] Comment on above: Performed By: #### C JOBY #### [facility] [address] [place] [address] Dr. Vangie Devine METAMYELOCYTE # 1.2 103/ul Normal [facility] Comment on above: Performed By: #### C JOBY #### [facility] [address] [address] [address] aVngie Devine METAMYELOCYTE % 4 % Normal [facility] Comment on above: Performed By: #### C JOBY #### [facility] [address] [address] [address] Vangie Devine MONOM# 0.93 103/ul Critically high 0.30-0.80 [facility] Comment on above: Performed By: #### C JOBY #### [facility] [address] [address] [address] Vangie Devine MONOM% 3.0 % Normal 1.7-12.0 [facility] Comment on above: Performed By: #### C JOBY #### [facility] [address] [place] [address] Dr. Vangie Devine MPV 10.4 fL Normal 9.5-13.5 [facility] Comment on above: Performed By: #### C JOBY #### [facility] [address] [place] [address] Dr. Vangie Devine MYELOCYTE # 0.9 103/ul Normal [facility] Comment on above: Performed By: #### C JOBY #### [facility] [address] [place] [address] Dr. Vangie Devine MYELOCYTE % 3 % Normal [facility] Comment on above: Performed By: #### C JOBY #### [facility] [address] [place] [address] Dr. Vangie Devine NRBC 0 Normal [facility] Comment on above: Performed By: #### C JOBY #### [facility] [address] [address] [address] Vangie Devine PLT 460 103/ul Critically high 150-450 [facility] Comment on above: Performed By: #### C JOBY #### [facility] [address] [place] [address] Dr. Vangie Devine RBC 4.46 106/ul Normal 4.20-5.40 [facility] Comment on above: Performed By: #### C BCMAN #### [facility] [address] [address] [address] Vangie Devine RDW 12.6 % Normal 11.0-15.0 [facility] Comment on above: Performed By: #### C BCMAN #### [facility] [address] [place], [place] [address] Dr. Vangie Devine SEG # 21.39 103/ul Critically high 1.40-6.50 [facility] Comment on above: Performed By: #### C BCMAN #### [facility] [address] [address] [address] Vangie Devine SEG % 69.0 % Normal 43.0-75.0 [facility] Comment on above: Performed By: #### C BCMAN #### [facility] [address] [place] [address] Dr. Vangie Devine WBC 31.0 103/ul Critically high 4.0-11.0 [facility] Comment on above: Performed By: #### C BCMAN #### [facility] [address] [place] [address] Dr. Vangie Devine Covid-19 PCR ([facility])on 12-14 SARS-CoV-2 (COVID-19) RNA SAMIR+probe Ql (Unsp spec) Not detected Normal NOT DETECTED [facility] Comment on above: Result Comment: When [...] for this test is supported by the Actionscript Developer of Health and Human Service's declaration that [...] longer be used). Performed By: #### C JOBY #### [facility] [address] [place] [address] Dr. Vangie Devine ECG 12 lead ECGon 01-10-2022 ECG 12 lead ECG [facility] [place] [address] [place] [address] Electrocardiograph Report Signed Patient: Javier Link MR#: [id number] : 1970 Acct:[id number] Age/Sex: 51 / F ADM Date: 01/10/22 Loc: Room: [address] [place] [address] Type: DIS IN Attending Dr: Isidra Garibay DO Ordering Provider: Isidra Garibay DO Date of Service: 01/10/22 ECG/ECG 12 [...] Signed By Lenny Joseph DO 01/10 Normal [facility] Glucose Poct Glucometerson 0 01-10-2022 Glucose [Mass/Vol] 148 mg/dL Normal [facility] Comment on above: Result Comment: [place] Glucose Reference Range is dependent on time and content of last meal. Glucose of more than 200 mg/dL in a nonstressed, ambulatory subject supports the diagnosis of Diabetes Mellitus. PERFORMED BY: [place] [address] PATHOLOGIST DENT REMOVER JIANLAN SUN M.D. Performed By: #### P T #### [address] Glucose [Mass/Vol] 139 mg/dL Normal [facility] Comment on above: Result Comment: [facility] Glucose Reference Range is dependent on time and content of last meal. Glucose of more than 200 mg/dL in a nonstressed, ambulatory subject supports the diagnosis of Diabetes Mellitus. PERFORMED BY: [place] [address] PATHOLOGIST DENT REMOVER QUINN MAGALLON M.D. Performed By: #### P TT #### [address] LIPASEon 01-10-2022 Lipase [Catalytic activity/Vol] 63.0 U/L Critically low 73.0-393.0 [facility] Comment on above: Performed By: #### C BCMAN #### [facility] [address] [address] [address] Vangie Devine Laboratory - Chemistry and C hemistry - challengeOrdered By: Isidra Garibay on 01-10-2022 Magnesium [Mass/Vol] 2.0 mg/dL 1.6-2.6 [facility] Magnesiumon 01-10-2022 Magnesium [Mass/Vol] 2.0 mg/dL Normal 1.6-2.6 [facility] Comment on above: Result Comment: PERF ORMED BY: [place] [address] PATHOLOGIST DENT REMOVER QUINN MAGALLON M.D. Performed By: #### P TT #### [place] [id number] [facility] PROTIMEon 01-10-2022 INR Coag (PPP) [Relative time] 1.01 {INR} Normal [facility] Comment on above: Performed By: #### P TT, PT #### [facility] [address] [place] [address] Dr. Vangie Devine INR GUIDELINES SEE BELOW Normal [facility] Comment on above: Result Comment: MARY ANN RED INR: 2.0 - 3.0 CONDITIONS NOT LISTED BELOW 2.5 - 3.5 FOR PROSTHETIC HEART VALVE REPLACEMENT 2.5 - 3.5 RECURRENT THROMBOSIS Performed By: #### P TT, PT #### [facility] [address] [place] [address] Dr. Vangie Devine PT Coag (PPP) [Time] 10.9 s Normal 9.0-11.6 [facility] Comment on above: Performed By: #### P TT, PT #### [facility] [address] [place] [address] Dr. Vangie Devine PTTon 01-10-2022 aPTT Coag (Bld) [Time] 26.3 s Normal 22.3-36.2 [facility] Comment on above: Performed By: #### P TT, PT #### [facility] [address] [place] [address] Dr. Vangie Devine Partial Thromboplastin Timeo n 01-10-2022 aPTT Coag (Bld) [Time] 50.4 s High 25.1-36.5 [facility] Comment on above: Order Comment: List the anticoagulant: HEPARIN, UNFRACTIONATED Result Comment: PERF ORMED BY: [place] [address] PATHOLOGIST DENT REMOVER QUINN MAGALLON M.D. Performed By: #### P TT #### [address] Troponin I High Sensitivityo n 01-10-2022 Troponin I High Sensitivity [id number] pg/mL Off scale high 0-15 [facility] Comment on above: Order Comment: iván hart rn [facility] Result Comment: Crit ical value result called at 2135 on 01/10/22 PERFORMED BY: [place] [address] PATHOLOGIST DENT REMOVER QUINN MAGALLON M.D. Performed By: #### P TT #### [facility] [address] [place] [address] Troponin I High Sensitivity 273752 pg/mL Off scale high 0-15 [facility] Comment on above: Result Comment: Crit ical value result called at 1812 on 01/10/22 PERFORMED BY: [place] [id number] PATHOLOGIST DENT REMOVER QUINN MAGALLON M.D. Performed By: #### P TT #### [place] [id number] [facility] Troponin I High Sensitivity Normal 0-15 [facility] Comment on above: Result Comment: Ugo tity not sufficient. Please resubmit. PERFORMED BY: [place] [id number] PATHOLOGIST DENT REMOVER QUINN MAGALLON M.D. Performed By: #### P T #### [place] [id number] [facility] Troponin I High Sensitivity 58122 pg/mL Off scale high 0-15 [facility] Comment on above: Result Comment: Crit ical value result called at 1435 on 01/10/22 PERFORMED BY: [place] [id number] PATHOLOGIST DENT REMOVER QUINN MAGALLON M.D. Performed By: #### P TT #### [place] [id number] [place] XR CHEST 1 Von 01-10-2022 XR CHEST 1 V CLINICAL HISTORY: Chest pain COMPARISON: Chest radiograph 12/20/2015 at [facility]. FINDINGS: Portable AP view of the chest obtained. Cardiomediastinal silhouette is normal. Lungs are clear, no evidence of infiltrate, suspicious nodule, or mass. No evidence of significant pleural fluid on this portable projection. No acute bony abnormality. IMPRESSION: No acute abnormality. Electronically authenticated by: MADELAINE ALVA Date: 2022-01-10 10:16 Normal [facility] WRIST LEFT 3 Son 2 WRIST LEFT 3 S [facility] Department of Radiology [address] [place] [phone] Patient Name: JAVIER LINK : 1970 Sex: F Age: Race: White Pt. 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 Electronically signed: QUANG RUFFIN. Transcribed by: [email or web address], User Resident: Electronically Signed by: QUANG RUFFIN @ 09/10/2021 09:04 AM Normal [facility] Comment on above: Order Comment: Evalu ate Operative Reporton Operative Report MR#: [id number] S [facility] Pt. Name: Javeir Link Room #: 0C Discharge Date: Birthdate: 1970 OPERATIVE REPORT DATE OF SURGERY: 07/22/2021 SURGEON: Rafi Biswas M.D. PREOPERATIVE DIAGNOSIS: Kienbock's disease, stage IV, left lunate. POSTOPERATIVE DIAGNOSIS: Kienbock's disease, stage IV, left lunate. PROCEDURE: Proximal row carpectomy, left wrist. ENVIRONMENTAL INTERN: Maricarmen Liao M.D. ANESTHESIA: [facility]. INDICATION FOR [...] took some 3-0 TiCron and put a sgficu-js-okdhq suture in that dorsal portion of the TFCC right near the ulnar styloid where the small tear was. The volar part of the TFCC looks good. Once that was in, the dorsal capsule was closed with multiple fgutad-um-chucy sutures of 2-0 Vicryl. The subcutaneous tissue [...] A Rafi Biswas M.D. Date Dict: 07/22/2021/09:24 A/Rafi Biswas M.D. Date Trans: 07/22/2021 10:32 A/mmo [id number] cc: Moriah Mack M.D. [address] [place] [id number] Normal [facility] POC GLUCOSE LABon 07-22-2021 Glucose [Mass/Vol] 85 mg/dL Normal 70-100 [facility] Comment on above: Performed By: #### [id number] #### [address] MRI WRIST WO CONTRAST RIGHTo n 06-09-2021 MRI WRIST WO CONTRAST RIGHT [facility] Department of Radiology [address] [place] [phone] Patient Name: JAVIER LINK : 1970 Sex: F Age: Race: White Pt. 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 Electronically signed: Liz Harp. Transcribed by: [email or web address], User Resident: Electronically Signed by: LIZ HARP @ 06/11/2021 09:46 AM Normal [facility] Comment on above: Order Comment: Evide nce Keinbock's R wrist on outside x-ray, evaluate for staging and surgical planning. , Side: RIGHT WRIST LEFT 3 [facility] 1 WRIST LEFT 3 [facility] Department of Radiology [address] [place] [phone] Patient Name: JAVIER LINK : 1970 Sex: F Age: Race: White Pt. 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 COMPARISON: None. IMPRESSION: 1. Subtle sclerosis lunate suggests possibility of osteonecrosis. No significant ulnar variance. 2. No acute fracture. No dislocation. Likely remote injury ulnar styloid. 3. Borderline widening scapholunate interval. 4. Multiple moderate triscaphe and radiocarpal arthritis. Electronically signed: Alonso Iglesias. Transcribed by: [email or web address], User Resident: Electronically Signed by: ALONSO IGLESIAS @ 05/19/2021 12:56 PM Normal [facility] Comment on above: Order Comment: evalu ate WRIST RIGHT 3 Son 05-18-20 21 WRIST RIGHT 3 S [facility] Department of Radiology [address] [place] [phone] Patient Name: JAVIER LINK : 1970 Sex: F Age: Race: White Pt. 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 COMPARISON: None. IMPRESSION: 1. Subtle sclerosis lunate suggest osteonecrosis. 2. No acute fracture. No malalignment. No significant ulnar variance. Electronically signed: Alonso Iglesias. Transcribed by: [email or web address], User Resident: Electronically Signed by: ALONSO IGLESIAS @ 05/19/2021 12:55 PM Normal [facility] Comment on above: Order Comment: evalu ate Vital Signs Date Time Vital Sign Value Performing Clinician Facility 01-20-2022 12:07-0400 Diastolic blood pressure 58 mm[Hg] No PCP None [facility] [address] DO Work Phone: 01-20-2022 12:07-0400 Systolic blood pressure 105 mm[Hg] No PCP None [facility] DO Work Phone: 01-20-2022 11:58-0400 Body height 147.32 cm No PCP None [facility] DO Work Phone: 01-20-2022 11:58-0400 Body mass index (BMI) [Ratio] 38.87 kg/m2 No PCP None [facility] DO Work Phone: 01-20-2022 11:58-0400 Body surface area Derived from formula 1.77 m2 No PCP None [facility] DO Work Phone: 01-20-2022 11:58-0400 Body weight 84.37 kg No PCP None [facility] DO Work Phone: 01-20-2022 11:58-0400 Diastolic blood pressure 62 mm[Hg] No PCP None [facility] DO Work Phone: 01-20-2022 11:58-0400 Heart rate 60 /min No PCP None [facility] DO Work Phone: 01-20-2022 11:58-0400 Systolic blood pressure 110 mm[Hg] No PCP None [facility] DO Work Phone: 01-20-2022 11:58-0400 6 1 No PCP None [facility] DO Work Phone: Comment on above: PHQ-9 TS 01-14-2022 13:04-0400 Heart rate 74 /min DO W Clarke Garibay Work Phone: [facility] 01-14-2022 13:04-0400 Respiratory rate 20 /min DO W Clarke Yusufdon Work Phone: [facility] 01-14-2022 12:00-0400 Body temperature 98.4 [degF] DO W Clarke Yusufdon Work Phone: [facility] 01-14-2022 12:00-0400 Diastolic blood pressure 69 mm[Hg] DO W Clarke Bebo Work Phone: [facility] 01-14-2022 12:00-0400 SaO2% (BldA) [Mass fraction] 96 % DO W Clarke Bebo Work Phone: [facility] 01-14-2022 12:00-0400 Systolic blood pressure 98 mm[Hg] DO W Clarke Bebo Work Phone: [facility] 01-14-2022 04:55-0400 Body weight 85 kg DO W Clarke Garibay Work Phone: [facility] 01-12-2022 08:00-0400 Inhaled oxygen flow rate 3 L/min DO W Clarke Garibay Work Phone: [facility] 01-11-2022 16:45-0400 Inhaled oxygen concentration 50 % DO W Clarke Garibay Work Phone: [facility] 01-11-2022 00:00-0400 35 1 No PCP None -[facility] DO Work Phone: Comment on above: [id number] 01-10-2022 13:01-0400 Body height 147.32 cm DO W Clarke Garibay Work Phone: [facility] 01-10-2022 13:01-0400 Body mass index (BMI) [Ratio] 39.2 kg/m2 DO W Clarke Garibay Work Phone: [facility] Encounters Encounter Date Encounter Type Care Provider Facility Start: 04-30-2024 ambulatory [place] Start: 03-15-2024 ambulatory [facility] Start: 02-27-2024 End: 02-27-2024 ambulatory [facility] Start: 02-07-2024 ambulatory DELL WEAVER [facility] Start: 01-22-2024 Encounter for preprocedural cardiovascular examination [facility] Start: 01-22-2024 ambulatory [facility] Start: 01-12-2024 End: 01-12-2024 ambulatory YELENA CRUZ [facility] Start: 07-31-2023 End: 07-31-2023 ambulatory CIRILO RUBALCAVA [facility] Start: 07-18-2023 End: 07-18-2023 ambulatory [facility] Start: 06-28-2023 End: 06-28-2023 ambulatory DEENA BENTON [facility] Start: 05-23-2023 End: 05-23-2023 ambulatory RAFI BISWAS [facility] Start: 12-21-2022 End: 12-22-[address] DOCTOR SCHWARZ Facility:[facility] Start: 12-09-2022 End: 12-10-2022 ambulatory YELENA CRUZ Facility:[facility] Start: 10-31-2022 End: 11-01-[address] ANGEL SHAFFER Facility:[facility] Start: 07-20-2022 End: 07-21-2022 ambulatory NIKKI KELLOGG Facility:[facility] Start: 06-03-2022 End: 06-03-2022 ambulatory MEREDITH SEWELL . Facility:[facility] Start: 05-18-2022 End: 05-19-[address] ANGEL SHAFFER Facility:[facility] Start: 05-15-2022 End: 06-13-2022 ambulatory NIKKI KELLOGG Facility:[facility] Start: 05-14-2022 End: 05-15-2022 ambulatory ALTON PARKS Facility:[facility] Start: 05-12-2022 End: 05-13-2022 ambulatory ALTON PARKS Facility:[facility] Start: 05-06-2022 ambulatory NIKKI KELLOGG Facility: [facility] Start: 05-06-2022 End: 05-07-2022 ambulatory NIKKI KELLOGG Facility:[facility] Start: 04-14-2022 End: 05-14-2022 ambulatory SHAIKH Sergo HERRERA Facility:[facility] Start: 03-31-2022 End: 04-01-[address] DEENA BENTON Facility:[facility] Start: 03-28-2022 End: 03-29-[address] DEENA BENTON Facility:[facility] Start: 03-14-2022 End: 04-13-2022 ambulatory SHAIKH Sergo HERRERA Facility:[facility] Start: 02-14-2022 End: 03-11-2022 ambulatory SHAIKH Sergo HERRERA Facility:[facility] Start: 02-02-2022 End: 05-06-[address] DOCTOR SCHWARZ Facility:[facility] Start: 01-27-2022 Chart Update No PCP None [facility] DO Work Phone: Start: 01-20-2022 End: 02-11-2022 ambulatory SHAIKH Sergo HERRERA Facility: Start: 01-20-2022 Transitional care moni clark srvc 7 day discharge No PCP None [facility] DO Work Phone: Start: 01-17-2022 End: 01-18-[address] NOLAN GARIBAY Facility: Start: 01-10-2022 End: 01-14-2022 Evaluation and management of inpatient W Clarke Garibay Facility:[facility] Start: 01-10-2022 End: 01-14-2022 Evaluation and management of inpatient DO W Clarke Garibay Work Phone: [facility] Start: 01-10-2022 End: 01-10-2022 ambulatory HASMUKH KATZ . Facility: Start: 07-22-2021 End: 07-23-2021 ambulatory RAFI BISWAS Facility:[facility] Procedures Date Procedure Procedure Detail Performing Clinician Start: 01-11-2022 Plain chest X-ray DO W Clarke Garibay Work Phone: Start: 01-10-2022 CL Coronary Thrombol ysis IV DO W Clarke Garibay Work Phone: Start: 01-10-2022 CL Insert IABP DO W Sco kulwinder Garibay Work Phone: Start: 01-10-2022 CL LHC & COR Angio DO W Clarke Garibay Work Phone: Start: 01-10-2022 CL PCI AMI 1st Vesse l LAD KATIE DO W Clarke Garibay Work Phone: Start: 01-10-2022 DO W Clarke Garibay Work Phone: section No PCP None Ligation of fallopian tube N o PCP None Operative procedure on knee No PCP None Operative procedure on wrist No PCP None Plan of Treatment Date Care Activity Detail Author Start: 05-18-2022 FUV, Provider: Nolan Garibay, Status: Pen, Time: 10:50 AM FUV, Provider: Nolan Garibay, Status: Pen, Time: 10:50 AM -[facility] 250 DO Work Phone: Start: 03-21-2022 FUV, Provider: Beth Hull, Status: Pen, Time: 8:30 AM FUV, Provider: Beth Hull, Status: Pen, Time: 8:30 AM [facility] 250 DO Work Phone: Start: 03-14-2022 ECHO, Provider: LUCAS HHVI ULTRASOUND 01,[id number], Status: Pen, Time: 10:45 AM ECHO, Provider: LUCAS HHVI ULTRASOUND 01,[id number], Status: Pen, Time: 10:45 AM -[facility] 250 DO Work Phone: Start: 01-26-2022 STRESS MARK, Provider : LUCAS HHVI NUCLEAR 01,[id number], Status: Pen, Time: 2:00 PM STRESS MARK, Provider: LUCAS HANI NUCLEAR 01,[id number], Status: Pen, Time: 2:00 PM [facility] 250 DO Work Phone: Patient Education Coronary Angio plasty (DC) Angina (DC) Drug Eluting Stents [facility] Work Phone: Patient referral [facility] Work Phone: Payers Date Payer Category Payer Medicare [id number] 2019 Unknown [id number] 1970 Unknown [id number] 2.16.8 40.1.285351.3.579.2.647 1970 Unknown [id number] 2.16.84 0.1.235525.3.579.2.593 1971 Unknown [id number] 2.16.84 0.1.713956.3.579.2.593 1971 Unknown [id number] 2.16.84 0.1.533258.3.579.2.593 1971 Unknown [id number] 2.16.84 0.1.534581.3.579.2.593 1971 Unknown [id number] 2.16.84 0.1.690129.3.579.2.593 1971 Unknown [id number] 2.16.84 0.1.876376.3.579.2.593 1971 Unknown [id number] 2.16.84 0.1.933279.3.579.2.593 1971 Unknown [id number] 2.16.84 0.1.191567.3.579.2.593 1971 Unknown [id number] 2.16.84 0.1.652853.3.579.2.593 1971 Unknown [id number] 2.16.84 0.1.479590.3.579.2.593 1971 Unknown [id number] 2.16.84 0.1.045185.3.579.2.593 1971 Unknown [id number] 2.16.84 0.1.441145.3.579.2.593 1971 Unknown [id number] 2.16.84 0.1.560136.3.579.2.593 1971 Unknown [id number] 2.16.84 0.1.563613.3.579.2.593 1971 Unknown [id number] 2.16.84 0.1.910239.3.579.2.593 1971 Unknown [id number] 2.16.84 0.1.058140.3.579.2.593 1971 Unknown [id number] 2.16.84 0.1.799947.3.579.2.593 1971 Unknown [id number] 2.16.84 0.1.928564.3.579.2.593 1971 Unknown [id number] 2.16.84 0.1.722487.3.579.2.593 1971 Unknown [id number] 2.16.84 0.1.354250.3.579.2.593 1959 Self-pay [id number] Unknown Unknown [id number] 2.16.8 40.1.466330.3.579.2.531 Unknown [id number] 2.16.84 0.1.943458.3.579.2.593 Social History Date Type Detail Facility Daily caffeine consumption Daily caffeine consumption [facility] Work Phone: Comment on above: 3-4; quit 1 week ago; Start: 01-10-2022 Tobacco smoking stat [facility] Smoker (finding) [facility] Start: 1970 Sex Assigned At Female F [facility] Medical Equipment Procedure Code Equipment Code Equipment Origin al Text Equipment Identifier Dates Drug-eluting coronary artery stent, [id number] lymer-coated ()[id number] FDA Start: 01-10-2022 Drug-eluting coronary artery stent, cry-seujmkhiegzuu-in lymer-coated ()[id number] FDA Start: 01-10-2022 Goals Date Patient Goal Desired Activity /State Functional Status Date Assessment Result Facility 01-20-2022 PHQ-9 [id number] Mild (5-9) -[facility] 250 DO Work Phone: 01-14-2022 Functional status Patient at Baseline [facility] Work Phone: 01-10-2022 Functional status Disability Sta tus Patient at Baseline [facility] Work Phone: Mental Status Date Assessment Result Facility 01-10-2022 Cognitive function Cognitive Sta tus Patient at Baseline [facility] Work Phone: Clinical Notes 01-10-2022 to 01-12-2024 Note Date & Type Note Facility 01-12-2024 Note Patient here for 6 m o follow up chronic systolic heart failure, CAD, hx of LV thrombus. Had echo in Aug 2023. She goes twice a week to cardiac rehab, and 3 times a week to [facility]. She is able to workout for 45 minutes on the eliptical without chest pain or SOB. Gets lightheaded when she bends down. Feels palpitations sometimes when lying down. Overall, doing very well. Once in awhile gets a pain in the back, between shoulder blades. Denies chest pain and SOB. Review of Systems Cardiovascular: Positive for palpitations (intermittent). Musculoskeletal: Positive for back pain. Neurological: Positive for light-headedness. All other systems reviewed and are negative. [facility] 01-12-2024 Note UTP CARDIOLOGY PROGR ESS NOTE HPI: Javier Link is a 53 y.o. female here for routine 6 month f/u HPI Pleasant 53 yo female presents for routine F/U for chronic systolic heart failure, CAD, and LV thrombus. Patient presents today with noted weight loss since last visit that she has been doing purposefully. She continues with cardiac rehab exercise at [facility]. She denies chest pain, shortness of breath, orthopnea, or leg swelling and overall states she is doing very well. Patient Active Problem List Diagnosis Pain [...] with heart failure (CMS/HCC) Generalized anxiety disorder Review of Systems Previous HP:I per Dr Benton HPI Visit of 02/07/2022: Javier is seen as a new patient. The following information is from review of the available medical record. She is a 52-year-old woman. On 01/10/2022 she presented to [facility] with STEMI and was found to have [...] is enrolled in cardiac rehab at the [facility] and doing well with that. Anticoagulation clinic at the [facility] follows her warfarin levels. Testing: ECG [...] 28 mm skypoint, 2.5 x 18 mm [place]. An intra-aortic balloon pump was placed. Visit [...] 35% I referred her to Dr. Alton Parks for placement of an ICD for primary [...] II, she denies palpitations, dizziness, syncope and le (more content not included)... [facility] 01-12-2024 Note HTN is well-controll ed with current med regimen and renal function stable [facility] 01-12-2024 Note [facility]HC II-currently eu volemic without exacerbation, no activity limiting symptoms Continue GDMT-aspirin, Lipitor, Coreg, Jardiance, Entresto and Aldactone with Diuretic therapy of Lasix 40 mg daily Monitor daily weights, I&O, fluid restriction 1.5-2L/day, renal function and electrolytes- [facility] 01-12-2024 Note Coronary artery dise ase is unchanged. Continue current medications. Cardiac status will be reassessed in 6 months. Continue goal-directed medical therapy with aspirin, Lipitor, Plavix, Coreg [facility] 01-12-2024 Note Lipid abnormalities are unchanged, well controlled; PCP monitoring LFT. Pharmacotherapy as ordered. Lipids will be reassessed annually. [facility] 01-12-2024 Note No thrombus noted on last 2 TTE [facility] 07-31-2023 Note Subjective Javier Link is a 53 y.o. female with CHF [...] for 2023 because [facility]. Historical: Failed Class I topical steroids, [...] to apply for patient financial assistance for [place]. Will check screening labs at follow up in six months. Lesions on scalp are mild folliculitis-- no intervention required. Patient to continue sun sense/ sun safety. Call for any acute issues. [facility] 06-28-2023 Note [place] Cardiology - [facility] Subjective Javier Link is a 53 y.o. year old female [...] 52-year-old woman. On 01/10/2022 she presented to [facility] with STEMI and was found to have [...] is enrolled in cardiac rehab at the [facility] and doing well with that. Anticoagulation clinic at the [facility] follows her warfarin levels. Testing: ECG [...] 28 mm skypoint, 2.5 x 18 mm [place]. An intra-aortic balloon pump was placed. Visit [...] 35% I referred her to Dr. Alton Parks for placement of an ICD for primary [...] exertion NYHA class (more content not included)... [facility] 05-23-2023 Note Orthopedic Surgery Subjective Pain of the Right Wrist (Radiates up thumb up arm) and Pain of the Left Wrist (Radiates up thumb up to arm. ) 05/23/23 Javier Link is a 53 y.o. female presenting for [...] History: Diagnosis Date CHF (congestive heart failure) ([facility]) Coronary artery disease Hyperlipidemia Hypertension Left ventricular thrombus NSTEMI (non-ST elevated myocardial infarction) ([facility]) Objective General: Body mass index is 36.37 [...] finger: normal A1 steven and AROM Strength: garment tag stringer 5/5, thumb 5/5, interossei 5/5 Sensation: intact [...] finger: normal A1 steven and AROM Strength: garment tag stringer 5/5, thumb 5/5, interossei 5/5 Sensation: intact [...] to verify the correct patient, procedure, equipment, account support associate and site/side marked as required. Patient was prepped and draped in the usual sterile fashion. Assessment/Plan Javier Link is a 53 y.o. year old female [...] right thumb C (more content not included)... [facility] 05-23-2023 Note Patient ID: Javier Link is a 53 y.o. female. Intermediate Joint [...] to verify the correct patient, procedure, equipment, account support associate and site/side marked as required. [facility] 10-31-2022 Note CARDIAC STRESS TEST Requesting Physician: Deena Benton M.D. Procedure Date:10/31/2022 At baseline, patient had [...] CAD evaluation with invasive stress test. [facility] 01-13-2022 Progress note Note Date/Time January 13, 2022 3:15pm [facility] [address] [place] [address] Cardiology Progress Note Signed Patient: Javier Link MR#: [id number] : 1970 Acct:[id number] Age/Sex: 51 / F Adm Date: 2 Loc: Room: [address] [place] [address] Type : ADM IN Attending Dr: Isidra Garibay DO Copies to: ~ Date of Service: [...] elsewhere classified Status: Acute Documented By: Isidra Garibay DO 01/13/22 1519 Signed By: <Electronically signed by Isidra Garibay DO> 01/13/22 0076 [facility] Work Phone: 1(545) 969-935406-01-2022 Progress note Author Isidra Garibay [facility] January 12, 2022 3:16pm Note Date/Time January 12, 2022 3:16p m [facility] [address] [place] [address] Cardiology Progress Note Signed Patient: Javier Link MR#: [id number] : 1970 Acct:[id number] Age/Sex: 51 / F Adm Date: 2 Loc: Room: [address] [place] [address] Type : ADM IN Attending Dr: Isidra Garibay DO Copies to: ~ Date of Service: [...] 01/12/22 12:00 01/12/22 14:00 01/12/22 14:00 01/12/22 14:01/12/22 14:00 Const General: cooperative, comfortable and no [...] elsewhere classified Status: Acute Documented By: Isidra Garibay DO 01/12/22 1514 Signed By: <Electronically signed by Isidra Garibay DO> 01/12/22 1516 [facility] Work Phone: 1(897) 744-427105-31-2022 Progress note Author Isidra Garibay [facility] January 11, 2022 1:38pm Note Date/Time January 11, 2022 1:38p m [facility] [address] [place] [address] Cardiology Progress Note Signed Patient: Javier Link MR#: [id number] : 1970 Acct:[id number] Age/Sex: 51 / F Adm Date: 2 Loc: Room: [address] [place] [address] Type : ADM IN Attending Dr: Isidra Garibay DO Copies to: ~ Date of Service: [...] ALT Alkaline Phosphatase Troponin I High Sens 00219 H* Total Protein Albumin Globulin Albumin/Globulin Ratio [...] ALT Alkaline Phosphatase Troponin I High Sens 404253 H* Total Protein Albumin Globulin Albumin/Globulin Ratio Triglycerides Cholesterol LDL Cholesterol, Calc VLDL Cholesterol HDL Cholesterol Cholesterol/HDL Ratio 01/10/22 01/10/22 01/10/22 20:42 21:57 23:37 APTT PHA Creatinine Clear Sodium Potassium Chloride Carbon Dioxide BUN Creatinine Est GFR ( Amer) Est GFR (Non-Af Amer) Glucose POC Glucose 148 Calcium Magnesium Total Bilirubin AST ALT Alkaline Phosphatase Troponin I High Sens 199429 H* 789360 H* Total Protein Albumin Globulin Albumin/Globulin Ratio [...] Alkaline Phosphatase 85 Troponin I High Sens 88599 H* Total Protein 6.0 L Albumin 2.9 L Globulin 3.1 Albumin/Globulin Ratio 0.9 Triglycerides 83 Cholesterol 109 L LDL Cholesterol, Calc 49 VLDL Cholesterol 16 HDL Cholesterol 43 Cholesterol/HDL Ratio 2.5 05/31/22 05/31/22 05/31/22 05:36 07:37 11:28 APTT 41.3 H PHA [...] elsewhere classified Status: Acute Documented By: Isidra Garibay DO 01/11/22 1334 Signed By: <Electronically signed by Isidra Garibay DO> 01/11/22 [facility]8 [facility] Work Phone: 1(620) 189-319405-30-2022 History and physical note Author Isidra Garibay [facility] January 10, 2022 12:14pm Note Date/Time January 10, 2022 10:30 am [facility] [address] [place] [address] Cardiology H&P Signed Patient: Javier Link MR#: [id number] : 1970 Acct:[id number] Age/Sex: 51 / F Adm Date: 2 Loc: Room: Type: [facility] Attending Dr: Isidra Garibay DO Copies to: NON STAFF Isidra Garibay DO~ Date of Service: 01/10/2022 Cardiology HPI History of Present Illness Chief complaint: Inferolateral STEMI HPI: Ms. Link is a 51 year old female transferred from [facility] emergency room this morning after receiving phone call from Dr. Katz and reviewing electronic transmitted media and discussion about the clinical case. Patient presented with severe chest discomfort with no prior history of cardiac illness or intervention. ECGs reveal sinus rhythm with inferolateral ST elevation injury current. She was admitted restarted upstream antiplatelet and Antithrombin therapy, and transferred to the [facility] emergently. Patient arrived at [facility] ER at 0924, first ECG transmitted to ne was 0948, [facility] team was activated at 0952, patient was transferred by ground, arrived in [facility] at 1033 and underwent primary PCI at [...] ER staff, review of electronic transmitted media, [facility] staff, nursing staff and family both pre [...] changes or abnormalities: ST suggestive of injury AL, pacemaker, normal Myocardial infarction: inferior AL (acute or recent) and lateral AL (acute or recent) A&P - Cardiology (1) ST elevation myocardial infarction (STEMI) of inferolateral wall: Code(s): I21.19 - ST elevation (STEMI) myocardial infarction involving other coronary artery of inferior wall (2) Hyperlipidemia: Code(s): E78.5 - Hyperlipidemia, unspecified (3) Essential hypertension: Code(s): I10 - Essential (primary) hypertension Documented By: Isidra Garibay DO 01/10/22 1026 Signed By: <Electronically signed by Isidra Garibay DO> 01/10/22 1214 [facility] Work Phone: 1(419) 959-644805-30-2022 Procedure [facility]05-30-2022 [facility]Chief complaint Narrative - Reported* 51-year-old female returns for transitional care management office visit following recent large anterior AL with associated cardiogenic shock and primary revascularization of the LAD, details of which are reviewed. She had intra-aortic balloon pump counterpulsation for 24 hours, subsequent diagnosis of LV thrombus with reduced LV function. She was transition to clopidogrel warfarin, aspirin triple therapy. She did have brief episodes of bobbi-AL/postoperative VT that stabilized on amiodarone andthen we [...] 12 weeks and myselfin approximately [address] Work Phone: Chief complaint Narrative - Reported* 51-year-old female returns for transitional care management office visit following recent large anterior AL with associated cardiogenic shock and primary revascularization of the LAD, details of which are reviewed. She had intra- aortic balloon pump counterpulsation for 24 hours, subsequent diagnosis of LV thrombus with reduced LV function. She was transition to clopidogrel warfarin, aspirin triple therapy. She did have brief episodes of bobbi-AL/postoperative VT that stabilized on amiodarone andthen we [...] 12 weeks and myselfin approximately 4 months [facility] Work Phone: Chief complaint Narrative - Reported* 51-year-old female returns for transitional care management office visit following recent large anterior AL with associated cardiogenic shock and primary revascularization of the LAD, details of which are reviewed. She had intra- aortic balloon pump counterpulsation for 24 hours, subsequent diagnosis of LV thrombus with reduced LV function. She was transition to clopidogrel warfarin, aspirin triple therapy. She did have brief episodes of bobbi-AL/postoperative VT that stabilized on amiodarone andthen we [...] 12 weeks and myselfin approximately 4 months [facility] Work Phone: Evaluation note* Diagnosis Onset Date Resolution Status Essential hypertension acute Hyperlipidemia acute Left ventricular thrombus ac [place] ST elevation myocardial infa rction (STEMI) of inferolateral wall acute [facility] Work Phone: Hospital Discharge instructions Additional Instructions [facility] to manage your Coumadin dosing and lab [...] doctor or pharmacist, without first calling the commercial pest control representative who implanted the stent. If you require [...] weight lifting, stair steppers, etc. until the commercial pest control representative approves these activities. Check with the commercial pest control representative on your first follow-up visit. CALL YOUR PHYSICIAN at [phone]: -If bleeding should occur from the catheter insertion site- apply pressure to the site then immediately call us. -Report any fever, redness, drainage, increased swelling, or firmness at the catheter insertion site. Some bruising or slight swelling may be present at the time of discharge. -Should arm or leg become cold, numb, white, or blue, contact the commercial pest control representative immediately. -IF you should experience episodes of [...] is recommended. Please call Central Scheduling at [phone] to schedule your appointment.] The attending commercial pest control representative or [facility] nurse clinician should provide you with specific instructions regarding activity, diet, medications, and further follow up for you. Follow the medication instructions provided on your discharge. If the dosages and instructions on this sheet differ from the dosage and instructions on the bottle, follow the instructions on the bottle. [facility] is not responsible for incorrect prescription information provided by the patient during their visit. Do not stop your medications without consulting your health care provider. Please take the list with you to your next doctor's appointment.[facility] Work Phone: Summary Purpose Family History No [...] Date/ Time Advance Directives No January 10 2 11:43am Chief Complaint and Reason for Visit Chief Complaint stemi Reason for Visit Essential hypertensi on Hyperlipidemia Left ventricular thrombus ST elevation myocardial infarction (STEMI) of inferolateral wall Additional Source Comments INFORMATION SOURCE (unrecogn ized section and content) DATE CREATED AUTHOR 09/11/2021 [facility] DATE CREATED AUTHOR AUTHOR'S ORGANIZ ATION 03/09/2022 [facility] DATE CREATED AUTHOR AUTHOR'S ORGANIZ ATION 09/17/2022 [facility] DATE CREATED AUTHOR AUTHOR'S ORGANIZ ATION 12/25/2022 [facility] DATE CREATED AUTHOR AUTHOR'S ORGANIZ ATION 05/02/2024 [facility] Care Teams (unrecognized sec tion and content) Team Status: Inactive Member Role Status Dates Isidra Garibay , Admit Provider, Attending Provide r Active NON [...] BE BASED ON THE PRIMARY CLINICAL RECORDS. [facility] [employer] [facility]. provides no warranty or guarantee of the accuracy or completeness of information in this document.
--- NOTE | 2024-05-04 16:50 | ECG_ITS ---
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: : 1970 Requested By: NIKKI KELLOGG Order Number: [id number] Reading MD: ASTRID TALAVERA Measurements Intervals [place] Rate: 66 P: 52 NH: 154 QRS: -75 QRSD: 84 T: 103 QT: 392 QTc: 406 Interpretive Statements 1100 Sinus rhythm 2630 Left anterior fascicular block 3334 Anterolateral myocardial infarction, age undetermined 3614 Cannot rule out inferior myocardial infarction, age undetermined 8100 Low QRS voltage 9150 abnormal ECG Compared to ECG 06/03/2022 18:15:49 Left anterior fascicular block now present Ventricular premature complex(es) no longer present Myocardial infarct finding still present Electronically Signed On 05-05-2024 20:26:12 EDT by ASTRID TALAVERA
--- NOTE | 2024-05-04 16:51 | ED_ITS ---
HPI HPI - General Adult General Chief complaint: Dizziness Stated complaint: ILL, ABNORMAL LABS, LOW BP, DIZZY Time Seen by Provider: 05/04/24 16:46 Source: patient Mode of arrival: walk-in History of Present Illness HPI narrative: 54-year-old female presented for not feeling well. She had some blood work done yesterday and she was told that her sodium was low. She has had some nausea and minimal vomiting. No diarrhea or fever. She does not complain of cough or shortness of breath or fever. She has never had sodium problems before. Related Data Allergies Allergy/AdvReac Type Severity Reaction Status Date / Time avalox Allergy hives Uncoded 05/04/24 16:51 Opioid HPI Opioid Management Most Recent Opioid Data: No Data to Display Review of Systems ROS Narrative A ten point review of systems is negative except as noted above. PFSH PFSH Social History Little interest or pleasure in doing things: not at all Feeling down, depressed, or hopeless: not at all Exam Narrative Exam Narrative: Nurses note and vital signs reviewed and patient is not hypoxic. General: The patient appears well and in no apparent distress. Patient is resting comfortably on cart. Skin: Warm, dry, no pallor noted. There is no rash noted. Head: Normocephalic, atraumatic Eye: Normal conjunctiva, no drainage Ears, Nose, Mouth, and Throat: oral mucosa is moist. Nares patent. Cardiovascular: Regular Rate and Rhythm Respiratory: Patient is in no distress, no accessory muscle use, lungs are clear to auscultation, no wheezing, rales or rhonchi Back: non-tender GI: Soft and nontender Musculoskeletal: The patient has no evidence of calf tenderness, no pitting edema, symmetrical pulses noted bilaterally Neurological: A&O, normal speech Psychiatric: Cooperative Constitutional Vital Signs, click to edit/add: Last Vital Signs Temp 98 F 05/04/24 16:48 Pulse 71 05/04/24 16:48 Resp 05/04/24 16:48 BP 119/65 05/04/24 16:48 Pulse Ox 100 05/04/24 16:48 O2 Del Method Room Air 05/04/24 16:48 Course Vital Signs Vital signs: Vital Signs Temperature 98 F 05/04/24 16:48 Pulse Rate 71 05/04/24 16:48 Respiratory Rate 05/04/24 16:48 Blood Pressure 119/65 05/04/24 16:48 Pulse Oximetry 100 05/04/24 16:48 Oxygen Delivery Method Room Air 05/04/24 16:48 Temperature 98 F 05/04/24 16:48 Pulse Rate 71 05/04/24 16:48 Respiratory Rate 20 05/04/24 16:48 Blood Pressure 119/65 05/04/24 16:48 Pulse Oximetry 100 05/04/24 16:48 Oxygen Delivery Method Room Air 05/04/24 16:48 Medical Decision Making MDM Narrative Medical decision making narrative: The patient is found to be hyponatremic. Yesterday her sodium was 128 and today is 123. I discussed large amounts of drinking water with her and she states she only drinks about 3 or 4 bottles of water a day and has always done so. She had some Gatorade yesterday. She has not been drinking large quantities of water. Findings are discussed with the patient Differential Diagnosis Differential Diagnosis: Hyper Chastity, acute kidney injury, polydipsia Lab Data Lab results reviewed: Yes I reviewed the patient's lab results Lab results narrative: Sodium 123 ECG Data Attestation: I personally reviewed and interpreted this ECG as follows: (EKG on my interpretation shows sinus rhythm with a rate of 66 and no acute change) Discharge Plan Discharge Chief Complaint: Dizziness Clinical Impression: Hyponatremia Patient Disposition: Admitted as Observation Time of Disposition Decision: 18:04 Condition: Fair Print Language: Turkmen Referrals: NIKKI KELLOGG [Primary Care Provider] - 1 week
[2024-05-04] MEDS: ONDANSETRON PF 4 MG/2 ML VIAL IV (17:08)
[2024-05-04] MEDS: 0.9 % SODIUM CHLORIDE 1,000 ML 1000 ML IV (17:08)
[2024-05-04 17:22] LABS: Basophils Absolute Auto 0.1 10^3/uL (0.0-0.1); Basophils Percent Auto 0.5 % (0.2-2.0); Eosinophils Absolute Auto 0.1 10^3/uL (0.0-0.7); Eosinophils Percent Auto 1.3 % (0.9-7.0); Hematocrit 36.7 % (36.0-48.0); Hemoglobin 12.7 g/dL (12.0-16.0); Immature Granulocytes Abs Auto 0.03 10^3/uL (0.00-0.03); Immature Granulocytes Pct Auto 0.3 % (0.0-0.5); Lymphocytes Absolute Auto 1.8 10^3/uL (1.2-3.8); Lymphocytes Percent Auto 18.2 % (20.5-60.0); Mean Corpuscular HGB Conc 34.6 g/dL (29.9-35.2); Mean Corpuscular Hemoglobin 32.7 pg (26.7-34.0); Mean Corpuscular Volume 94.6 fL (81.0-99.0); Mean Platelet Volume 10.7 fL (9.5-13.5); Monocytes Absolute Auto 1.4 10^3/uL (0.3-0.8); Monocytes Percent Auto 14.4 % (1.7-12.0); Neutrophils Absolute Auto 6.3 10^3/uL (1.4-6.5); Neutrophils Percent Auto 65.3 % (43.0-75.0); Platelet Count 195 10^3/uL (150-450); Red Blood Count 3.88 10^6/uL (4.20-5.40); Red Cell Distribution Width 12.4 % (11.0-15.0); White Blood Count 9.7 10^3/uL (4.0-11.0)
[2024-05-04 17:28] LABS: Anion Gap 10.9; BUN Creatinine Ratio 10.6; Calcium 8.6 mg/dL (8.5-10.1); Carbon Dioxide 26.1 mmol/L (21.0-32.0); Chloride 90 mmol/L (98-107); Estimated GFR (African America 47 (>=60); Estimated GFR (Non-African Ame 39 (>=60); Glucose 83 mg/dL (74-106)
[2024-05-04 17:31] LABS: Sodium 123 mmol/L (136-145)
[2024-05-04 18:27] LABS: Bilirubin Urine NEGATIVE (NEGATIVE); Blood Urine NEGATIVE (NEGATIVE); Clarity Urine CLEAR (CLEAR); Color Urine LT. YELLOW (YELLOW); Glucose Urine UA 500 mg/dL (NEGATIVE); Ketones Urine NEGATIVE (NEGATIVE); Leukocyte Esterase Urine TRACE (NEGATIVE); Nitrite Urine NEGATIVE (NEGATIVE); Protein Urine NEGATIVE (NEG/TRACE); Specific Gravity Urine <=1.005 (1.005-1.025); Urobilinogen Urine 0.2 EU/dL (0.2-1.0)
[2024-05-04 18:34] LABS: Bacteria Urine MODERATE #/HPF (NONE SEEN)
[2024-05-04 18:35] LABS: Cast Seen? NONE SEEN #/LPF (NONE SEEN); Crystals Seen? None Seen #/HPF (None Seen); Mucus Urine NONE SEEN (NONE SEEN); RBC Urine 0-2 #/HPF (0-2); Squamous Epithelial Cell Urine FEW #/LPF (NONE/RARE); Urine Culture Indicated YES
[2024-05-04 19:41] LABS: Sodium Urine Random 7 mmol/L (30-90)
--- OUTSIDE RECORDS SUMMARY | 2024-05-04 20:17 | XMS_ITS | CCD ---
Author Organization [facility] [place] [employer] DIRECTOR OF PATIENT SAFETY [facility] Care Team Providers Care Grocery Manager Name Role Phone RAFI BISWAS Attending Unavailable MORIAH MACK Primary Care Unavailable MORIAH MACK Referring Unavailable RAFI BISWAS Admitting Unavailable None, No PCP Unavailable Unavailable Unavailable Unavailable DO Isidra Garibay Admit Provider DO Isidra Garibay Attending Provider NON STAFF [...] ZIEBER, DR ANGEL Ruiz Consulting Unavailable VALDEZ, [facility] Primary Care Unavailable MOUKARBEL, DR SHAFFER Attending [...] Unavailable MOUKARBEL, DR SHAFFER Attending Unavailable VALDEZ, [facility] Primary Care Unavailable MOUKARBEL, DR SHAFFER Consulting Unavailable VALDEZ, [facility] Primary Care Unavailable MOUKARBEL, DR SHAFFER Attending Unavailable MOUKARBEL, DR SHAFFER Admitting Unavailable FAWWAD, SWIFT H Admitting Unavailable FAWWAD, SWIFT H Attending Unavailable VALDEZ, [facility] Primary Care Unavailable ALTON PARKS Referring Unavailable [...] Propensity to adverse reactions (disorder) 1 [facility] Repository (4 sources) moxifloxacin; Translations: [Avelox] Drug Allergy [place] [address] DO Work Phone: (3 sources) moxifloxacin; Translations: [moxifloxacin] Drug Allergy 2 [facility] (1 source) moxifloxacin Drug Allergy 3 [facility] Repository (1 source) Chlorhexidine; Translations: [CHLORHEXIDINE GLUCONATE] Drug Allergy 0 [facility] Repository Medications Current Medications Medication Drug Class(es) Dates Sig (Normalized) Sig (Original) [id number] 200 actuat albuterol 0.09 mg/actuat metered dose [...] 10, 2022 1:49pm take 1 capsule by [facility] three times daily as needed Benzonatate [...] 10, 2022 6:58pm take 1 capsule by [facility] once daily before breakfast Levothyroxine Sodium [...] MG Oral Tablet Take as directed by [facility] Quantity: 0 Refills: 0 Ordered: [...] sources) Coronary arteriosclerosis; Translations: [Coronary atherosclerosis of [place] coronary artery] Onset: 02-02-2022 Chronic Diabetes mellitus [...] 02-28-2022 Episodic Other aftercare (1 source) 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; Translations: [OTH HALF-WAY CURRENT DRUG THERAPY] Onset: 06-07-2022 Episodic Other aftercare (4 sources) Encounter for therapeutic drug level monitoring; Translations: [ENC THERAPEUTC DRUG LEVL MONITORING] Onset: 05-15-2022 Episodic Other aftercare (1 source) residential (current) use of anticoagulants; Translations: [PAN HELPER CURRNT USE ANTICOAGULANTS] Onset: 06-14-2022 Episodic Other [...] [facility] Facility Office Visiton 01-12-2024 Follow-up visit [id number] Javier Link 1970 Date Provider Department Center 01/12/2024 YELENA REYES [facility] Family History Problem Relation Age of Onset Atrial fibrillation Mother Other Mother Heart attack Father Other Father Other Father Family Status - Relation Status Age at Mother Father Level of Service:66144 [place] OFFICE/OUTPATIENT ESTABLISHED MOD MDM 30 MIN Normal [facility] 36on 09-29-2023 36 Yes please! Normal [facility] 36 Can we give patient sample? Normal [facility] Follow-Upon 07-31-2023 Follow-Up [id number] Javier Link 1970 F Date Provider Department Center 07/31/2023 CIRILO CARMEN [facility] DERM [facility] Family History Problem Relation Age of Onset Atrial fibrillation Mother Other Mother Heart attack Father Other Father Other Father Family Status - Relation Status Age at Mother Father Level of Service:61470 [place] OFFICE/OUTPATIENT ESTABLISHED MOD MDM 30-39 MIN Reason for Visit and Comments: Follow-up [778538] - Discuss medication switch Normal [facility] Office Visiton 06-28-2023 Follow-up visit [id number] Javier Link 1970 Date Provider Department Center 06/28/2023 Krystal-SERENITY DEENA CARD [facility] Family History Problem Relation Age of Onset Atrial fibrillation Mother Other Mother Heart attack Father Other Father Other Father Family Status - Relation Status Age at Mother Father Level of Service:87880 [place] OFFICE/OUTPATIENT ESTABLISHED LOW MDM 20-29 MIN Reason for Visit and Comments: Follow-up [526624] - BP running higher. Normal [facility] Office Visiton 05-23-2023 Follow-up visit [id number] Javier Link 1970 Date Provider Department Center 05/23/2023 Katerina-RAFI BISWAS MP ORTHO MPORTHO Family History Problem Relation Age of Onset Atrial fibrillation Mother Other Mother Heart attack Father Other Father Other Father Family Status - Relation Status Age at Mother Father Level of Service:33677 [place] OFFICE/OUTPATIENT ESTABLISHED LOW MDM 20-29 MIN (GC,25) Reason for Visit and Comments: Pain [136] - Radiates up thumb up arm Pain [136] - Radiates up thumb up to arm. Normal [facility] PROF CHEM 8 (BAS METB)on Anion gap [Moles/Vol] 14.8 mmol/L Normal [facility] Comment on above: Performed By: #### C BC #### [facility] [address] [place] [address] Dr. Vangie Devine Calcium [Mass/Vol] 8.9 mg/dL Normal 8.5-10.1 [facility] Comment on above: Performed By: #### C BC #### [facility] [address] [address] [address] Vangie Devine Chloride [Moles/Vol] 101 mmol/L Normal 98-107 [facility] Comment on above: Performed By: #### C BC #### [facility] [address] [address] [address] Vangie Devine CO2 [Moles/Vol] 25.9 mmol/L Normal 21.0-32.0 [facility] Comment on above: Performed By: #### C BC #### [facility] [address] [place] [address] Dr. Vangie Devine Creatinine [Mass/Vol] 0.91 mg/dL Normal 0.55-1.02 [facility] Comment on above: Performed By: #### C BC #### [facility] [address] [address] [address] Vangie Devine EGFR-AF [place]ESE >60 Normal >=60 [facility] Comment on above: Performed By: #### C BC #### [facility] [address] [place] [address] Dr. Vangie Devine EGFR-NON AF [place] >60 Normal >=60 [facility] Comment on above: Performed By: #### C BC #### [facility] [address] [place] [address] Dr. Vangie Devine Glucose [Mass/Vol] 93 mg/dL Normal 74-106 [facility] Comment on above: Performed By: #### C BC #### [facility] [address] [place] [address] Dr. Vangie Devine Potassium [Moles/Vol] 4.7 mmol/L Normal 3.5-5.1 [facility] Comment on above: Performed By: #### C BC #### [facility] [address] [place] [address] Dr. Vangie Devine Sodium [Moles/Vol] 137 mmol/L Normal 136-145 [facility] Comment on above: Performed By: #### C BC #### [facility] [address] [place] [address] Dr. Vangie Devine Urea nitrogen [Mass/Vol] 9.0 mg/dL Normal 7.0-18.0 [facility] Comment on above: Performed By: #### C BC #### [facility] [address] [place] [address] Dr. Vangie Devine Urea nitrogen/Creatinine [Mass ratio] 9.9 mg/mg Normal [facility] Comment on above: Performed By: #### C BC #### [facility] [address] [place] [address] Dr. Vangie Devine PROF CHEM 8 (BAS METB)on Anion gap [Moles/Vol] 15.6 mmol/L Normal [facility] Comment on above: Performed By: #### P TT, PT #### [facility] [address] [place] [address] Dr. Vangie Devine Calcium [Mass/Vol] 8.9 mg/dL Normal 8.5-10.1 [facility] Comment on above: Performed By: #### P TT, PT #### [facility] [address] [place] [address] Dr. Vangie Devine Chloride [Moles/Vol] 101 mmol/L Normal 98-107 [facility] Comment on above: Performed By: #### P TT, PT #### [facility] [address] [place] [address] Dr. Vangie Devine CO2 [Moles/Vol] 24.7 mmol/L Normal 21.0-32.0 [facility] Comment on above: Performed By: #### P TT, PT #### [facility] [address] [place] [address] Dr. Vangie Devine Creatinine [Mass/Vol] 0.95 mg/dL Normal 0.55-1.02 [facility] Comment on above: Performed By: #### P TT, PT #### [facility] [address] [place] [address] Dr. Vangie Devine EGFR-AF [place] >60 Normal >=60 [facility] Comment on above: Performed By: #### P TT, PT #### [facility] [address] [place] [address] Dr. Vangie Devine EGFR-NON AF [place] >60 Normal >=60 [facility] Comment on above: Performed By: #### P TT, PT #### [facility] [address] [place] [address] Dr. Vangie Devine Glucose [Mass/Vol] 101 mg/dL Normal 74-106 [facility] Comment on above: Performed By: #### P TT, PT #### [facility] [address] [address] [address] Vangie Devine Potassium [Moles/Vol] 4.3 mmol/L Normal 3.5-5.1 [facility] Comment on above: Performed By: #### P TT, PT #### [facility] [address] [address] [address] Vangie Devine Sodium [Moles/Vol] 137 mmol/L Normal 136-145 [facility] Comment on above: Performed By: #### P TT, PT #### [facility] [address] [address] [address] Vangie Devine Urea nitrogen [Mass/Vol] 15.0 mg/dL Normal 7.0-18.0 [facility] Comment on above: Performed By: #### P TT, PT #### [facility] [address] [address] [address] Vangie Devine Urea nitrogen/Creatinine [Mass ratio] 15.8 mg/mg Normal [facility] Comment on above: Performed By: #### P TT, PT #### [facility] [address] [address] [address] Vangie Devine NM STRESS/REST MULTIon 10-31 NM STRESS/REST MULTI Patient: JAVIER LINK Exam Date: 10/31/2022 : 1970 Gender:F Ordering : DR DEENA BENTON M.D. Admission #: [id number] Family : Order #: [id number] CLICK HERE TO VIEW EXAM RADIOLOGY REPORT [...] M.D. on 10/31/2022 at 14:45 Normal [facility] FREE THYROXINE INDEX T7on FTI 4.83 Critically high 1.30-4.[address] [facility] Comment on above: Performed By: #### C BC #### [facility] [address] [address] [address] Vangie Devine T3U 35.0 % Normal 30.0-39.0 [facility] Comment on above: Performed By: #### C BC #### [facility] [address] [address] [address] Vangie Devine T4 [Mass/Vol] 13.80 ug/dL Normal 4.80-13.90 [facility] Comment on above: Performed By: #### C BC #### [facility] [address] [address] [address] Vangie Devine TSHon 07-20-2022 TSH 0.051 uIU/mL Critically low 0.358-3.740 [facility] Comment on above: Performed By: #### C BC #### [facility] [address] [place] [address] Dr. Vangie Devine ACETONE SERUMon 06-03-2022 ACETONE Negative Normal NEGATIVE [facility] Comment on above: Performed By: #### C BCMAN #### [facility] [address] [place] [address] Dr. Vangie Devine CBC AUTO DIFFon 06-03-2022 BASO # 0.1 103/ul Normal 0.0-0.1 [facility] Comment on above: Performed By: #### C BCMAN #### [facility] [address] [place] [address] Dr. Vangie Devine Basophils/100 WBC (Bld) 0.6 % Normal 0.2-2.0 [facility] Comment on above: Performed By: #### C JOBY #### [facility] [address] [place] [address] Dr. Vangie Devine EO # 0.3 103/ul Normal 0.0-0.7 [facility] Comment on above: Performed By: #### C JOBY #### [facility] [address] [place] [address] Dr. Vangie Devine Eosinophils/100 WBC (Bld) 1.4 % Normal 0.9-7.0 [facility] Comment on above: Performed By: #### C JOBY #### [facility] [address] [place] [address] Dr. Vangie Devine Erythrocyte distribution width (RBC) [Ratio] 13.2 % Normal 11.0-15.0 [facility] Comment on above: Performed By: #### C BCHERIBERTO #### [facility] [address] [place] [address] Dr. Vangie Devine Hematocrit (Bld) [Volume fraction] 44.8 % Normal 36.0-48.0 [facility] Comment on above: Performed By: #### C BCMAN #### [facility] [address] [place] [address] Dr. Vangie Devine Hemoglobin (Bld) [Mass/Vol] 15.0 g/dL Normal 12.0-16.0 [facility] Comment on above: Performed By: #### C JOBY #### [facility] [address] [place] [address] Dr. Vangie Devine IG # 0.06 10e3/ul Critically high 0.00-0.03 [facility] Comment on above: Performed By: #### C JOBY #### [facility] [address] [place] [address] Dr. Vangie Devine IG % 0.3 % Normal 0.0-0.5 [facility] Comment on above: Performed By: #### C JOBY #### [facility] [address] [place] [address] Dr. Vangie Devine LYMPH # 3.5 103/ul Normal 1.2-3.8 [facility] Comment on above: Performed By: #### C JOBY #### [facility] [address] [place] [address] Dr. Vangie Devine Lymphocytes/100 WBC (Bld) 19.8 % Critically low 20.5-60.0 [facility] Comment on above: Performed By: #### C JOBY #### [facility] [address] [place] [address] Dr. Vangie Devine MANUAL DIFF REQ NO Normal [facility] Comment on above: Performed By: #### C JOBY #### [facility] [address] [place] [address] Dr. Vangie Devine MCH (RBC) [Entitic mass] 31.1 pg Normal 26.7-34.0 [facility] Comment on above: Performed By: #### C JOBY #### [facility] [address] [place] [address] Dr. Vangie Devine MCHC (RBC) [Mass/Vol] 33.5 g/dL Normal 29.9-35.2 [facility] Comment on above: Performed By: #### C JOBY #### [facility] [address] [place] [address] Dr. Vangie Devine MCV (RBC) [Entitic vol] 92.8 fL Normal 81.0-99.0 [facility] Comment on above: Performed By: #### C JOBY #### [facility] [address] [place] [address] Dr. Vangie Devine MONO # 1.1 103/ul Critically high 0.3-0.8 [facility] Comment on above: Performed By: #### C JOBY #### [facility] [address] [place] [address] Dr. Vangie Devine Monocytes/100 WBC (Bld) 6.0 % Normal 1.7-12.0 [facility] Comment on above: Performed By: #### C JOBY #### [facility] [address] [place] [address] Dr. Vangie Devine NEUT # 12.6 103/ul Critically high 1.4-6.5 [facility] Comment on above: Performed By: #### C JOBY #### [facility] [address] [place] [address] Dr. Vangie Devine Neutrophils/100 WBC (Bld) 71.9 % Normal 43.0-75.0 [facility] Comment on above: Performed By: #### C JOBY #### [facility] [address] [place] [address] Dr. Vangie Devine Platelet mean volume (Bld) [Entitic vol] 11.0 fL Normal 9.5-13.5 [facility] Comment on above: Performed By: #### C JOBY #### [facility] [address] [place] [address] Dr. Vangie Devine PLT 179 103/ul Normal 150-450 [facility] Comment on above: Performed By: #### C JOBY #### [facility] [address] [place], [place] [id number] Dr. Vangie Devine RBC 4.83 106/ul Normal 4.20-5.40 [facility] Comment on above: Performed By: #### C JOBY #### [facility] [address] [place] [address] Dr. Vangie Devine WBC 17.5 103/ul Critically high 4.0-11.0 [facility] Comment on above: Performed By: #### C BCMAN #### [facility] [id number] Vangie Devine CT HEAD WO CONon [...] MARY ROJAS Date: 2022-06-03 19:15 Normal [facility] CULTURE URINEon 06-03-2022 CULTURE URINE Culture Observations : NO GROWTH. Normal [facility] Comment on above: Performed By: #### P TT, PT #### [facility] [id number] Vangie Devine [facility]-19 PCR [facility] 05-15 SARS-CoV-2 (COVID-19) RNA SAMIR+probe Ql (Unsp spec) Not detected Normal NOT DETECTED [facility] Comment on above: Result Comment: When [...] for this test is supported by the Professor Of Fine Art of Health and Human Service's declaration that [...] used). Performed By: #### C BCMAN #### [facility] [address] [place] [address] Dr. Vangie Devine ER URINE PROFILEon 2 Bilirubin Ql (U) Negative Normal NEGATIVE [facility] Comment on above: Performed By: #### C BC #### [facility] [address] [place] [address] Dr. Vangie Devine Clarity (U) CLEAR Normal CLEAR [facility] Comment on above: Performed By: #### C BC #### [facility] [address] [place] [address] Dr. Vangie Devine Color (U) LT. YELLOW Normal YELLOW [facility] Comment on above: Performed By: #### C BC #### [facility] [address] [place] [address] Dr. Vangie MCCAULEY A micrscopic examination will be performed if indicated. Normal [facility] Comment on above: Performed By: #### C BC #### [facility] [address] [place] [address] Dr. Vangie Devine Glucose Ql (U) 250 mg/dl Abnormal NEGATIVE [facility] Comment on above: Performed By: #### C BC #### [facility] [address] [place] [address] Dr. Vangie Devine Hemoglobin Ql (U) Negative Normal NEGATIVE [facility] Comment on above: Performed By: #### C BC #### [facility] [address] [place] [address] Dr. Vangie Devine Ketones Ql (U) Negative Normal NEGATIVE [facility] Comment on above: Performed By: #### C BC #### [facility] [address] [place] [address] Dr. Vangie Devine LEUKOCYTES Negative Normal NEGATIVE [facility] Comment on above: Performed By: #### C BC #### [facility] [address] [place] [address] Dr. Vangie Devine Nitrite Ql (U) Positive Abnormal NEGATIVE [facility] Comment on above: Performed By: #### C BC #### [facility] [address] [place] [address] Dr. Vangie Devine pH (U) 6.0 [pH] Normal 5-9 [facility] Comment on above: Performed By: #### C BC #### [facility] [address] [place] [address] Dr. Vangie Devine SPEC GRAVITY <=1.005 Abnormal 1.005-<=1.025 [facility] Comment on above: Performed By: #### C BC #### [facility] [address] [place] [address] Dr. Vangie Devine UA PROTEIN Negative Normal NEGATIVE/ TRACE [facility] Comment on above: Performed By: #### C BC #### [facility] [address] [place] [address] Dr. Vangie Devine UR MICRO IND INDICATED Normal [facility] Comment on above: Performed By: #### C BC #### [facility] [address] [place] [address] Dr. Vangie Devine Urobilinogen Qn (U) 0.2 {Jewel'U}/dL Normal 0.2 - 1. 0 [facility] Comment on above: Performed By: #### C BC #### [facility] [address] [place] [address] Dr. Vangie Devine FREE T3on 06-03-2022 FREE T3 2.42 pg/mlL Normal 2.18-3.98 [facility] Comment on above: Performed By: #### F T3 #### [facility] [address] [place] [address] Dr. Vangie Devine FREE T4on 06-03-2022 Free T4 [Mass/Vol] 1.93 ng/dL Critically high 0.76-1.46 [facility] Comment on above: Performed By: #### C JOBY #### [facility] [address] [address] [address] Vangie Devine LACTATE/LACTIC ACIDon 2021 Lactate [Moles/Vol] 1.2 mmol/L Normal 0.4-1.9 [facility] Comment on above: Performed By: #### C JOBY #### [facility] [address] [address] [address] Vangie Devine PROF 14(COMP METB)on 022 Albumin [Mass/Vol] 3.9 g/dL Normal 3.4-5.0 [facility] Comment on above: Performed By: #### H STROPN, TSH, CMP #### [facility] [address] [place] [address] Dr. Vangie Devine Albumin/Globulin [Mass ratio] 0.9 {ratio} Normal [facility] Comment on above: Performed By: #### H STROPN, TSH, CMP #### [facility] [address] [place] [address] Dr. Vangie Devine ALP [Catalytic activity/Vol] 138 U/L Critically high 46-116 [facility] Comment on above: Performed By: #### H STROPN, TSH, CMP #### [facility] [address] [place] [address] Dr. Vangie Devine ALT [Catalytic activity/Vol] 24 U/L Normal 14-59 [facility] Comment on above: Performed By: #### H STROPN, TSH, CMP #### [facility] [address] [place] [address] Dr. Vangie Devine Anion gap [Moles/Vol] 11.4 mmol/L Normal [facility] Comment on above: Performed By: #### H STROPN, TSH, CMP #### [facility] [address] [place] [address] Dr. Vangie Devine AST [Catalytic activity/Vol] 23 U/L Normal 15-37 [facility] Comment on above: Performed By: #### H STROPN, TSH, CMP #### [facility] [address] [address] [address] Vangie Devine Bilirubin [Mass/Vol] 0.5 mg/dL Normal 0.2-1.0 [facility] Comment on above: Performed By: #### H STROPN, TSH, CMP #### [facility] [address] [address] [address] Vangie Devine Calcium [Mass/Vol] 9.5 mg/dL Normal 8.5-10.1 [facility] Comment on above: Performed By: #### H STROPN, TSH, CMP #### [facility] [address] [address] [address] Vangie Devine Chloride [Moles/Vol] 98 mmol/L Normal 98-107 [facility] Comment on above: Performed By: #### H STROPN, TSH, CMP #### [facility] [address] [address] [address] Vangie Devine CO2 [Moles/Vol] 25.3 mmol/L Normal 21.0-32.0 [facility] Comment on above: Performed By: #### H STROPN, TSH, CMP #### [facility] [address] [address] [address] Vangie Devine Creatinine [Mass/Vol] 0.90 mg/dL Normal 0.55-1.02 [facility] Comment on above: Performed By: #### H STROPN, TSH, CMP #### [facility] [address] [address] [address] Vangie Devine EGFR-AF CONGOLESE >60 Normal >=60 [facility] Comment on above: Performed By: #### H STROPN, TSH, CMP #### [facility] [address] [address] [address] Vangie Devine EGFR-NON AF CONGOLESE >60 Normal >=60 [facility] Comment on above: Performed By: #### H STROPN, TSH, CMP #### [facility] [address] [place] [address] Dr. Vangie Devine Globulin (S) [Mass/Vol] 4.2 g/dL Normal [facility] Comment on above: Performed By: #### H STROPN, TSH, CMP #### [facility] [address] [address] [address] Vangie Devine Glucose [Mass/Vol] 93 mg/dL Normal 74-106 [facility] Comment on above: Performed By: #### H STROPN, TSH, CMP #### [facility] [address] [address] [address] Vangie Devine Potassium [Moles/Vol] 3.7 mmol/L Normal 3.5-5.1 [facility] Comment on above: Performed By: #### H STROPN, TSH, CMP #### [facility] [address] [address] [address] Vangie Devine Protein [Mass/Vol] 8.1 g/dL Normal 6.4-8.2 [facility] Comment on above: Performed By: #### H STRONANCY, TSH, CMP #### [facility] [address] [address] [address] Vangie Devine Sodium [Moles/Vol] 131 mmol/L Critically low 136-145 [facility] Comment on above: Performed By: #### H STRONANCY, TSH, CMP #### [facility] [address] [place] [address] Dr. Vangie Devine Urea nitrogen [Mass/Vol] 14.0 mg/dL Normal 7.0-18.0 [facility] Comment on above: Performed By: #### H STROPN, TSH, CMP #### [facility] [address] [address] [address] Vangie Devine Urea nitrogen/Creatinine [Mass ratio] 15.6 mg/mg Normal [facility] Comment on above: Performed By: #### H STROPN, TSH, CMP #### [facility] [address] [place] [address] Dr. Vangie Devine PROTIMEon 06-03-2022 INR Coag (PPP) [Relative time] 1.06 {INR} Normal [facility] Comment on above: Performed By: #### C BCMAN #### [facility] [address] [place] [address] Dr. Vangie Devine INR GUIDELINES SEE BELOW Normal [facility] Comment on above: Result Comment: MARY ANN RED INR: 2.0 - 3.0 CONDITIONS NOT LISTED BELOW 2.5 - 3.5 FOR PROSTHETIC HEART VALVE REPLACEMENT 2.5 - 3.5 RECURRENT THROMBOSIS Performed By: #### C JOBY #### [facility] [address] [place] [address] Dr. Vangie Devine PT Coag (PPP) [Time] 11.4 s Normal 9.0-11.6 [facility] Comment on above: Performed By: #### C JOBY #### [facility] [address] [place] [address] Dr. Vangie Devine PTTon 06-03-2022 aPTT Coag (Bld) [Time] 31.3 s Normal 22.3-36.2 [facility] Comment on above: Performed By: #### C JOBY #### [facility] [address] [place] [address] Dr. Vangie Devine TROPONIN, HIGH SENSITIVITYon 06-03-2022 HSTROP 26.3 pg/mL Normal 4.0-51.3 [facility] Comment on above: Result Comment: CUT- OFF POINTS HAVE BEEN ESTABLISHED BASED ON THE FOURTH UNIVERSAL DEFINITIONS OF MYOCARDIAL INFARCTION. THE UPPER REFERENCE LIMIT (URL) OF TROPONIN, DEFINED THE 99TH PERCENTILE OF cTnI DISTRIBUTION IN A REFERENCE POPULATION, HAS BEEN CONFIRMED THE DECISION THRESHOLD FOR VT DIAGNOSIS. Performed By: #### P TT, PT #### [facility] [address] [place] [address] Dr. Vangie Devine TSHon 06-03-2022 TSH 0.150 uIU/mL Critically low 0.358-3.740 [facility] Comment on above: Performed By: #### P TT, PT #### [facility] [address] [place] [address] Dr. Vangie Devine URINE MICROSCOPIC ONLYon BACTERIA TRACE Abnormal NONE SEEN [facility] Comment on above: Performed By: #### C BC #### [facility] [address] [place] [address] Dr. Vangie Devine Bacteria identified Cx Nom (U) INDICATED Normal [facility] Comment on above: Result Comment: dory cated due to positive nitrite Performed By: #### C BC #### [facility] [address] [place] [address] Dr. Vangie Devine CAST NONE SEEN Normal NONE SEEN [facility] Comment on above: Performed By: #### C BC #### [facility] [address] [place] [address] Dr. Vangie Devine Crystals LM Nom (Urine sed) NONE SEEN Normal NONE SEEN [facility] Comment on above: Performed By: #### C BC #### [facility] [address] [place] [address] Dr. Vangie Devine Epithelial cells LM Ql (Urine sed) RARE Normal NONE SEEN /RARE [facility] Comment on above: Performed By: #### C BC #### [facility] [address] [place] [address] Dr. Vangie Devine MUCOUS NONE SEEN Normal NONE SEEN [facility] Comment on above: Performed By: #### C BC #### [facility] [address] [place] [address] Dr. Vangie Devine RBC 0-2 Normal 0-2 [facility] Comment on above: Performed By: #### C BC #### [facility] [address] [place] [address] Dr. Vangie Devine WBC 0-2 Abnormal NONE SEEN [facility] Comment on above: Performed By: #### C BC #### [facility] [address] [place] [address] Dr. Vangie Devine XR CHEST 1 Von [...] MARY ROJAS Date: 2022-06-03 19:25 Normal [facility] XR CHEST 2 Von 05-18-2022 XR [...] 2. Stable cardiac silhouette. Electronically authenticated by: ANGLE SHAFFER Date: 2022-05-18 10:55 Normal [facility]on SARS-CoV-2 (COVID-19) RNA SAMIR+probe Ql (Unsp spec) Not detected Normal NOT DETECTED [facility] Comment on above: Result Comment: This test is not yet approved or cleared by the [place] FDA. When there are no FDA-approved or cleared tests available, and other criteria are met, FDA can make tests available under an emergency access mechanism called an Emergency Use Authorization (EUA). The EUA for this test is supported by the [employer] of Health and Human Service's (HHS's) declaration [...] Performed By: #### P TT, PT #### [facility] [address] [place] [address] Dr. Vangie Devine CBC AUTO DIFFon 05-12-2022 BASO # 0.1 103/ul Normal 0.0-0.1 [facility] Comment on above: Performed By: #### C BC #### [facility] [address] [place] [address] Dr. Vangie Devine Basophils/100 WBC (Bld) 0.7 % Normal 0.2-2.0 [facility] Comment on above: Performed By: #### C BC #### [facility] [address] [place] [address] Dr. Vangie Devine EO # 0.2 103/ul Normal 0.0-0.7 [facility] Comment on above: Performed By: #### C BC #### [facility] [address] [place] [address] Dr. Vangie Devine Eosinophils/100 WBC (Bld) 2.1 % Normal 0.9-7.0 [facility] Comment on above: Performed By: #### C BC #### [facility] [address] [place] [address] Dr. Vangie Devine Erythrocyte distribution width (RBC) [Ratio] 13.1 % Normal 11.0-15.0 [facility] Comment on above: Performed By: #### C BC #### [facility] [address] [place] [address] Dr. Vangie Devine Hematocrit (Bld) [Volume fraction] 43.2 % Normal 36.0-48.0 [facility] Comment on above: Performed By: #### C BC #### [facility] [address] [place] [address] Dr. Vangie Devine Hemoglobin (Bld) [Mass/Vol] 14.2 g/dL Normal 12.0-16.0 [facility] Comment on above: Performed By: #### C BC #### [facility] [address] [place] [address] Dr. Vangie Devine IG # 0.02 10e3/ul Normal 0.00-0.03 [facility] Comment on above: Performed By: #### C BC #### [facility] [address] [place] [address] Dr. Vangie Devine IG % 0.2 % Normal 0.0-0.5 [facility] Comment on above: Performed By: #### C BC #### [facility] [address] [place] [address] Dr. Vangie Devine LYMPH # 1.9 103/ul Normal 1.2-3.8 [facility] Comment on above: Performed By: #### C BC #### [facility] [address] [place] [address] Dr. Vangie Devine Lymphocytes/100 WBC (Bld) 22.2 % Normal 20.5-60.0 [facility] Comment on above: Performed By: #### C BC #### [facility] [address] [place] [address] Dr. Vangie Devine MANUAL DIFF REQ NO Normal [facility] Comment on above: Performed By: #### C BC #### [facility] [address] [place] [address] Dr. Vangie Devine MCH (RBC) [Entitic mass] 30.5 pg Normal 26.7-34.0 [facility] Comment on above: Performed By: #### C BC #### [facility] [address] [place] [address] Dr. Vangie Devine MCHC (RBC) [Mass/Vol] 32.9 g/dL Normal 29.9-35.2 [facility] Comment on above: Performed By: #### C BC #### [facility] [address] [place] [address] Dr. Vangie Devine MCV (RBC) [Entitic vol] 92.7 fL Normal 81.0-99.0 [facility] Comment on above: Performed By: #### C BC #### [facility] [address] [place] [address] Dr. Vangie Devine MONO # 0.5 103/ul Normal 0.3-0.8 [facility] Comment on above: Performed By: #### C BC #### [facility] [address] [place] [address] Dr. Vangie Devine Monocytes/100 WBC (Bld) 6.0 % Normal 1.7-12.0 [facility] Comment on above: Performed By: #### C BC #### [facility] [address] [place] [address] Dr. Vangie Devine NEUT # 6.0 103/ul Normal 1.4-6.5 [facility] Comment on above: Performed By: #### C BC #### [facility] [address] [place] [address] Dr. Vangie Devine Neutrophils/100 WBC (Bld) 68.8 % Normal 43.0-75.0 [facility] Comment on above: Performed By: #### C BC #### [facility] [address] [place] [address] Dr. Vangie Devine Platelet mean volume (Bld) [Entitic vol] 11.7 fL Normal 9.5-13.5 [facility] Comment on above: Performed By: #### C BC #### [facility] [address] [place] [address] Dr. Vangie Devine PLT 176 103/ul Normal 150-450 [facility] Comment on above: Performed By: #### C BC #### [facility] [address] [place] [address] Dr. Vangie Devine RBC 4.66 106/ul Normal 4.20-5.40 [facility] Comment on above: Performed By: #### C BC #### [facility] [address] [place] [address] Dr. Vangie Devine WBC 8.7 103/ul Normal 4.0-11.0 [facility] Comment on above: Performed By: #### C BC #### [facility] [address] [place] [address] Dr. Vangie Devine PROF CHEM 8 (BAS METB)on Anion gap [Moles/Vol] 13.9 mmol/L Normal Th e [facility] Comment on above: Performed By: #### C BC #### [facility] [address] [address] [address] Vangie Devine Calcium [Mass/Vol] 9.2 mg/dL Normal 8.5-10.1 [facility] Comment on above: Performed By: #### C BC #### [facility] [address] [address] [address] Vangie Devine Chloride [Moles/Vol] 101 mmol/L Normal 98-107 [facility] Comment on above: Performed By: #### C BC #### [facility] [address] [address] [address] Vangie Devine CO2 [Moles/Vol] 24.2 mmol/L Normal 21.0-32.0 [facility] Comment on above: Performed By: #### C BC #### [facility] [address] [place] [address] Dr. Vangie Devine Creatinine [Mass/Vol] 0.87 mg/dL Normal 0.55-1.02 [facility] Comment on above: Performed By: #### C BC #### [facility] [address] [place] [address] Dr. Vangie Devine EGFR-AF CONGOLESE >60 Normal >=60 [facility] Comment on above: Performed By: #### C BC #### [facility] [address] [place] [address] Dr. Vangie Devine EGFR-NON AF CONGOLESE >60 Normal >=60 [facility] Comment on above: Performed By: #### C BC #### [facility] [address] [address] [address] Vangie Devine Glucose [Mass/Vol] 89 mg/dL Normal 74-106 [facility] Comment on above: Performed By: #### C BC #### [facility] [address] [place] [address] Dr. Vangie Devine Potassium [Moles/Vol] 4.1 mmol/L Normal 3.5-5.1 [facility] Comment on above: Performed By: #### C BC #### [facility] [address] [address] [address] Vangie Devine Sodium [Moles/Vol] 135 mmol/L Critically low 136-145 Th [facility] Comment on above: Performed By: #### C BC #### [facility] [address] [address] [address] Vangie Devine Urea nitrogen [Mass/Vol] 9.0 mg/dL Normal 7.0-18.0 [facility] Comment on above: Performed By: #### C BC #### [facility] [address] [address] [address] Vangie Devine Urea nitrogen/Creatinine [Mass ratio] 10.3 mg/mg Normal [facility] Comment on above: Performed By: #### C BC #### [facility] [address] [place] [address] Dr. Vangie Devine PROTIMEon 05-12-2022 INR Coag (PPP) [Relative time] 1.96 {INR} Normal [facility] Comment on above: Performed By: #### P T #### [facility] [address] [place] [address] Dr. Vangie Devine INR GUIDELINES SEE BELOW Normal [facility] Comment on above: Result Comment: MARY ANN RED INR: 2.0 - 3.0 CONDITIONS NOT LISTED BELOW 2.5 - 3.5 FOR PROSTHETIC HEART VALVE REPLACEMENT 2.5 - 3.5 RECURRENT THROMBOSIS Performed By: #### P T #### [facility] [address] [place] [address] Dr. Vangie Devine PT Coag (PPP) [Time] 20.3 s Critically high 9.0-11.6 [facility] Comment on above: Performed By: #### P T #### [facility] [address] [place] [address] Dr. Vangie Devine T4, T3U, FTI LABCORPon 05-07 Free Thyroxine Index 4.7 Normal 1.2-4.9 [facility] Comment on above: Performed By: #### T HYLC #### [facility] [address] [place] [address] Dr. Vangie Devine T3 Uptake 34 % Normal 24-39 [facility] Comment on above: Performed By: #### T HYLC #### [facility] [address] [address] [address] Vangie Devine T4 [Mass/Vol] 13.8 ug/dL Critically high 4.5-12.0 [facility] Comment on above: Performed By: #### T HYLC #### [facility] [address] [address] [address] Vangie Devine TSHon 05-06-2022 TSH 0.063 uIU/mL Critically low 0.358-3.740 [facility] Comment on above: Performed By: #### T SH #### [facility] [address] [place] [address] Dr. Vangie Devine ECHOCARDIO M/2D COMPLETEon 0 03-31-2022 ECHOCARDIO M/2D COMPLETE Patient: JAVIER LINK Exam Date: 03/31/2022 : 1970 Gender:F Ordering : DR DEENA BENTON M.D. Admission #: [id number] Family : Order #: [id number] CLICK HERE TO VIEW EXAM ECHOCARDIOGRAM REPORT [...] M.D. on 03/31/2022 at 18:35 Normal [facility] CBC AUTO DIFFon 03-28-2022 BASO # 0.1 103/ul Normal 0.0-0.1 [facility] Comment on above: Performed By: #### C BC #### [facility] [address] [place] [address] Dr. Vangie Devine Basophils/100 WBC (Bld) 0.6 % Normal 0.2-2.0 [facility] Comment on above: Performed By: #### C BC #### [facility] [address] [place] [address] Dr. Vangie Devine EO # 0.2 103/ul Normal 0.0-0.7 [facility] Comment on above: Performed By: #### C BC #### [facility] [address] [place] [address] Dr. Vangie Devine Eosinophils/100 WBC (Bld) 2.0 % Normal 0.9-7.0 [facility] Comment on above: Performed By: #### C BC #### [facility] [address] [place] [address] Dr. Vangie Devine Erythrocyte distribution width (RBC) [Ratio] 12.7 % Normal 11.0-15.0 [facility] Comment on above: Performed By: #### C BC #### [facility] [address] [place] [address] Dr. Vangie Devine Hematocrit (Bld) [Volume fraction] 42.6 % Normal 36.0-48.0 [facility] Comment on above: Performed By: #### C BC #### [facility] [address] [place] [address] Dr. Vangie Devine Hemoglobin (Bld) [Mass/Vol] 13.9 g/dL Normal 12.0-16.0 [facility] Comment on above: Performed By: #### C BC #### [facility] [address] [place] [address] Dr. Vangie Devine IG # 0.03 10e3/ul Normal 0.00-0.03 [facility] Comment on above: Performed By: #### C BC #### [facility] [address] [place] [address] Dr. Vangie Devine IG % 0.4 % Normal 0.0-0.5 [facility] Comment on above: Performed By: #### C BC #### [facility] [address] [place] [address] Dr. Vangie Devine LYMPH # 2.3 103/ul Normal 1.2-3.8 [facility] Comment on above: Performed By: #### C BC #### [facility] [address] [place] [address] Dr. Vangie Devine Lymphocytes/100 WBC (Bld) 28.7 % Normal 20.5-60.0 [facility] Comment on above: Performed By: #### C BC #### [facility] [address] [place] [address] Dr. Vangie Devine MANUAL DIFF REQ NO Normal [facility] Comment on above: Performed By: #### C BC #### [facility] [address] [place] [address] Dr. Vangie Devine MCH (RBC) [Entitic mass] 31.0 pg Normal 26.7-34.0 [facility] Comment on above: Performed By: #### C BC #### [facility] [address] [place] [address] Dr. Vangie Devine MCHC (RBC) [Mass/Vol] 32.6 g/dL Normal 29.9-35.2 [facility] Comment on above: Performed By: #### C BC #### [facility] [address] [address] [address] Vangie Devine MCV (RBC) [Entitic vol] 95.1 fL Normal 81.0-99.0 [facility] Comment on above: Performed By: #### C BC #### [facility] [address] [address] [address] Vangie Devine MONO # 0.5 103/ul Normal 0.3-0.8 [facility] Comment on above: Performed By: #### C BC #### [facility] [address] [place] [address] Dr. Vangie Devine Monocytes/100 WBC (Bld) 6.8 % Normal 1.7-12.0 [facility] Comment on above: Performed By: #### C BC #### [facility] [address] [place] [address] Dr. Vangie Devine NEUT # 4.9 103/ul Normal 1.4-6.5 [facility] Comment on above: Performed By: #### C BC #### [facility] [address] [place] [address] Dr. Vangie Devine Neutrophils/100 WBC (Bld) 61.5 % Normal 43.0-75.0 [facility] Comment on above: Performed By: #### C BC #### [facility] [address] [place] [address] Dr. Vangie Devine Platelet mean volume (Bld) [Entitic vol] 11.0 fL Normal 9.5-13.5 [facility] Comment on above: Performed By: #### C BC #### [facility] [address] [place] [address] Dr. Vangie Devine PLT 224 103/ul Normal 150-450 [facility] Comment on above: Performed By: #### C BC #### [facility] [address] [place] [address] Dr. Vangie Devine RBC 4.48 106/ul Normal 4.20-5.40 [facility] Comment on above: Performed By: #### C BC #### [facility] [address] [address] [address] Vangie Devine WBC 7.9 103/ul Normal 4.0-11.0 [facility] Comment on above: Performed By: #### C BC #### [facility] [address] [address] [address] Vangie Devine LIPID PROFILEon 03-28-2022 CHOL-HDL RATIO NORM SEE BELOW Normal [facility] Comment on above: Result Comment: 3.3 - 4.4 LOW RISK 4.4 - 7.1 AVERAGE RISK 7.1 - 11.0 MODERATE RISK >11.0 HIGH RISK Performed By: #### C BC #### [facility] [address] [place] [address] Dr. Vangie Devine Cholesterol [Mass/Vol] 103 mg/dL Normal <=200 [facility] Comment on above: Performed By: #### C BC #### [facility] [address] [address] [address] Vangie Devine Cholesterol in HDL [Mass/Vol] 39 mg/dL Critically low 40-60 [facility] Comment on above: Performed By: #### C BC #### [facility] [address] [place] [address] Dr. Vangie Devine Cholesterol in LDL [Mass/Vol] 46.8 mg/dL Normal [facility] Comment on above: Performed By: #### C BC #### [facility] [address] [place] [address] Dr. Vangie Devine Cholesterol.total/Chol esterol in HDL [Mass ratio] 2.6 {ratio} Normal [facility] Comment on above: Performed By: #### C BC #### [facility] [address] [address] [address] Vangie Devine HDL NORMAL > or = 60 mg/dl - LO W CARDIOVASCULAR RISK <40 mg/dl - HIGH CARDIOVASCULAR RISK Normal [facility] Comment on above: Performed By: #### C BC #### [facility] [address] [place] [address] Dr. Vangie Devine LDL CALC NORMAL SEE BELOW Normal [facility] Comment on above: Result Comment: <100 mg/dl OPTIMAL 100 - 129 mg/dl NEAR OR ABOVE OPTIMAL 130 - 159 mg/dl BORDERLINE HIGH 160 - 189 mg/dl HIGH >190 mg/dl VERY HIGH Performed By: #### C BC #### [facility] [address] [address] [address] Vangie Devine Triglyceride [Mass/Vol] 86 mg/dL Normal <=150 [facility] Comment on above: Performed By: #### C BC #### [facility] [address] [place] [address] Dr. Vangie Devine VLDL CALC 17.2 mg/dL Normal [facility] [facility] Comment on above: Performed By: #### C BC #### [facility] [address] [place] [address] Dr. Vangie Devine PROF 14(COMP METB)on 022 Albumin [Mass/Vol] 3.5 g/dL Normal 3.4-5.0 [facility] Comment on above: Performed By: #### C BC #### [facility] [address] [place] [address] Dr. Vangie Devine Albumin/Globulin [Mass ratio] 0.9 {ratio} Normal [facility] Comment on above: Performed By: #### C BC #### [facility] [address] [place] [address] Dr. Vangie Devine ALP [Catalytic activity/Vol] 127 U/L Critically high 46-116 [facility] Comment on above: Performed By: #### C BC #### [facility] [address] [place] [address] Dr. Vangie Devine ALT [Catalytic activity/Vol] 29 U/L Normal 14-59 [facility] Comment on above: Performed By: #### C BC #### [facility] [address] [place] [address] Dr. Vangie Devine Anion gap [Moles/Vol] 15.3 mmol/L Normal [facility] Comment on above: Performed By: #### C BC #### [facility] [address] [place] [address] Dr. Vangie Devine AST [Catalytic activity/Vol] 21 U/L Normal 15-37 [facility] Comment on above: Performed By: #### C BC #### [facility] [address] [place] [address] Dr. Vangie Devine Bilirubin [Mass/Vol] 0.5 mg/dL Normal 0.2-1.0 [facility] Comment on above: Performed By: #### C BC #### [facility] [address] [place] [address] Dr. Vangie Devine Calcium [Mass/Vol] 8.9 mg/dL Normal 8.5-10.1 [facility] Comment on above: Performed By: #### C BC #### [facility] [address] [place] [address] Dr. Vangie Devine Chloride [Moles/Vol] 101 mmol/L Normal 98-107 [facility] Comment on above: Performed By: #### C BC #### [facility] [address] [place] [address] Dr. Vangie Devine CO2 [Moles/Vol] 25.8 mmol/L Normal 21.0-32.0 [facility] Comment on above: Performed By: #### C BC #### [facility] [address] [place] [address] Dr. Vangie Devine Creatinine [Mass/Vol] 0.89 mg/dL Normal 0.55-1.02 [facility] Comment on above: Performed By: #### C BC #### [facility] [address] [place] [address] Dr. Vangie Devine EGFR-AF CONGOLESE >60 Normal >=60 [facility] Comment on above: Performed By: #### C BC #### [facility] [address] [place] [address] Dr. Vangie Devine EGFR-NON AF CONGOLESE >60 Normal >=60 [facility] Comment on above: Performed By: #### C BC #### [facility] [address] [place] [address] Dr. Vangie Devine Globulin (S) [Mass/Vol] 4.1 g/dL Normal [facility] Comment on above: Performed By: #### C BC #### [facility] [address] [address] [address] Vangie Devine Glucose [Mass/Vol] 94 mg/dL Normal 74-106 [facility] Comment on above: Performed By: #### C BC #### [facility] [id number] Vangie Devine Potassium [Moles/Vol] 5.1 mmol/L Normal 3.5-5.1 [facility] Comment on above: Performed By: #### C BC #### [facility] [address] [address] [address] Vangie Devine Protein [Mass/Vol] 7.6 g/dL Normal 6.4-8.2 [facility] Comment on above: Performed By: #### C BC #### [facility] [address] [address] [address] Vangie Devine Sodium [Moles/Vol] 137 mmol/L Normal 136-145 [facility] Comment on above: Performed By: #### C BC #### [facility] [address] [address] [address] Vangie Devine Urea nitrogen [Mass/Vol] 9.0 mg/dL Normal 7.0-18.0 [facility] Comment on above: Performed By: #### C BC #### [facility] [address] [address] [address] Vangie Devine Urea nitrogen/Creatinine [Mass ratio] 10.1 mg/mg Normal [facility] Comment on above: Performed By: #### C BC #### [facility] [id number] Vangie Devine Cardiac Stress Teston 2021 Cardiac Stress Test [address], Suite [facility], [place] [address] Exercise Stress Test Patient Name: JAVIER Ordering Physician: [id number] Nolan Garibay DO [facility] Study Date: 01/26/2022 Reading Physician: [id number] Myke Levin MD MRN/PID: [id number] Supervising [id number] Myke Levin Physician: Accession/Order#: [id number] Referring Physician: [id number] NOLAN GARIBAY Date of : 1970 PCP: Gender: F Fellow: Height: 147.32 cm Nurse: Joe Elmore RN Weight: 84.37 kg Exhibition Organiser: NA BSA: 1.77 m2 Technologist: BMI: 38.87 kg/m2 Additional Staff: Age: 52 years cc report to: Patient Location: cc report to: [id number] Garibay DO Study Type: Cardiac Stress Test Diagnosis/ICD: I21.09-ST elevation (STEMI) myocardial infarction involving other coronary artery of anterior wall; I51.3-Intracardiac thrombosis, not elsewhere classified Indication: VT Procedure/CPT: Stress Test Interpretation-[id number]; Stress Test Supervision-[id number] Falls Risk: Low: Patient has low risk [...] rhythm. Normal sinus rhythm with anteroseptal wall VT. Stress Stage Data: + +-- -+------+-------+ HR [...] The adequate level of stress was achieved. [id number] Myke Levin MD Electronically signed on 01/26/2022 at 5:41:45 PM Final Normal [facility] Cardiac Stress Test MP-No rt [facility] y 250 DO Work Phone: Tobacco Screening.on 022 Adult depression screening assessment Yes [facility] y 250 DO Work Phone: Adult depression screening assessment No [facility] y 250 DO Work Phone: Fall risk assessment c) Not medically indicated [facility] y 250 DO Work Phone: Tobacco use status [facility] b) No [facility] Cleo hurtado 250 DO Work Phone: Tobacco Screening. 0-Not at all [facility] Heart[facility] hurtado 250 DO Work Phone: Tobacco Screening. 1-Several days [facility] Cleo Dominguez DO Work Phone: Tobacco Screening. 2-More than half the days [facility] Cleo Dominguez DO Work Phone: Tobacco Screening. Not difficult at all [facility] Cleo Dominguez DO Work Phone: Laboratory - Coagulationon 0 01-17-2022 INR Coag (Bld) [Relative time] 1.56 {INR} [facility] Cleo Dominguez DO Work Phone: PROTIMEon 01-17-2022 INR Coag (PPP) [Relative time] 1.56 {INR} Normal [facility] Comment on above: Performed By: #### C JOBY #### [facility] [address] [place] [address] Dr. Vangie Devine INR GUIDELINES SEE BELOW Normal [facility] Comment on above: Result Comment: MARY ANN RED INR: 2.0 - 3.0 CONDITIONS NOT LISTED BELOW 2.5 - 3.5 FOR PROSTHETIC HEART VALVE REPLACEMENT 2.5 - 3.5 RECURRENT THROMBOSIS Performed By: #### C JOBY #### [facility] [address] [place] [address] Dr. Vangie Devine PT Coag (PPP) [Time] 16.4 s Critically high 9.0-11.6 [facility] Comment on above: Performed By: #### C JOBY #### [facility] [address] [address] [address] Vangie Devine Activated partial thrombopla stin time (aPTT) in platelet poor plasma by coagulation aOrdered By: Isidra Garibay on 01-14-2022 aPTT Coag (PPP) [Time] 34.5 s 25.1-36.5 [facility] Basic Metabolic Panelon 060 Calcium [Mass/Vol] 8.5 mg/dL Normal 8.2-10.2 [facility] Comment on above: Performed By: #### B MP #### [facility] [address] [place] [address] [place] Chloride [Moles/Vol] 99 mmol/L Normal 95-114 [facility] Comment on above: Performed By: #### B MP #### [facility] [address] CO2 [Moles/Vol] 21.8 mmol/L Low 22.0-30.0 [facility] Comment on above: Performed By: #### B MP #### [facility] [address] Creatinine [Mass/Vol] 0.69 mg/dL Normal 0.44-1.03 [facility] Comment on above: Performed By: #### B MP #### [place] [address] [place] Creatinine Clr Calc Pharmacy 94.39 [facility] Comment on above: Result Comment: PERF ORMED BY: [place] [address] PATHOLOGIST FRAME CLEANER QUINN MAGALLON M.D. Performed By: #### B MP #### [address] Estimated GFR ( Renea > 60 Normal [facility] Comment on above: Result Comment: GFR estimated reference range: According to KDOQI guidelines, <60 ml/min/1.73m2 is sufficient to diagnose a patient with chronic kidney disease. Performed By: #### B MP #### [facility] [address] [place] [address] [place] Estimated GFR (Non- Am > 60 Normal [facility] Comment on above: Performed By: #### B MP #### [facility] [address] [place] [address] [place] Glucose [Mass/Vol] 101 mg/dL High 70-100 [facility] Comment on above: Result Comment: [place] Glucose Reference Range is dependent on time and content of last meal. Glucose of more than 200 mg/dL in a nonstressed, ambulatory subject supports the diagnosis of Diabetes Mellitus. ADA recommended reference range Performed By: #### B MP #### [facility] [address] Potassium [Moles/Vol] 4.2 mmol/L Normal 3.5-5.1 [facility] Comment on above: Performed By: #### B MP #### [facility] [address] Sodium [Moles/Vol] 129 mmol/L Low 136-146 [facility] Comment on above: Performed By: #### B MP #### [facility] [address] [place] [address] [place] Urea nitrogen [Mass/Vol] 8 mg/dL Low 9-23 [facility] Comment on above: Performed By: #### B MP #### [facility] [address] [place] [address] [place] Creatinine and Glomerular fi ltration rate.predicted panel (S/P/Bld)Ordered By: Isidra Garibay on 01-14-2022 Creatinine [Mass/Vol] 0.69 mg/dL 0.44-1.03 [facility] Estimated glomerular filtrat ion rate (GFR) non- AmericanOrdered By: Isidra Garibay on 01-14-2022 GFR/1.73 sq M.predicted among non-blacks MDRD (S/P/Bld) [Vol rate/Area] > 60 mL/Min [facility] - CoagulationOrde red By: Isidra Garibay on 01-14-2022 PT Coag (PPP) [Time] 17.7 s 9.0-12.9 [facility] No Panel InformationOrdered By: Isidra Garibay on 01-14-2022 Estimated GFR () > 60 mL/Min [facility] Comment on above: GFR estimated refere nce range: According to KDOQI guidelines, <60 ml/min/1.73m2 is sufficient to diagnose a patient with chronic kidney disease. Pharmacy Creatinine Clearance (Chem 94.39 [facility] Partial Thromboplastin Timeo n 01-14-2022 aPTT Coag (Bld) [Time] 34.5 s Normal 25.1-36.5 [facility] Comment on above: Order Comment: List the anticoagulant: HEPARIN, UNFRACTIONATED Result Comment: PERF ORMED BY: [place] [address] PATHOLOGIST FRAME CLEANER QUINN MAGALLON M.D. Performed By: #### P TT #### [address] [address] [facility] aPTT Coag (Bld) [Time] 97.0 s Off scale high 25.1-36.5 [facility] Comment on above: Order Comment: List the anticoagulant: HEPARIN, UNFRACTIONATED Result Comment: Resu lts called at 1036 on 01/14/22 PERFORMED BY: [place] [address] PATHOLOGIST FRAME CLEANER QUINN MAGALLON M.D. Performed By: #### P TT #### [address] [address] [facility] aPTT Coag (Bld) [Time] 90.6 s Off scale high 25.1-36.5 [facility] Comment on above: Result Comment: Resu lts called at 0312 on 01/14/22 PERFORMED BY: [place] [address] PATHOLOGIST FRAME CLEANER QUINN MAGALLON M.D. Performed By: #### P TT #### [address] [address] [facility] Platelet poor plasma interna tional normalized ratio (INR) by coagulation assay (relatOrdered By: Isidra Garibay on 01-14-2022 INR Coag (PPP) [Relative time] 1.6 {INR} [facility] Comment on above: INR Therapeutic Rang e [...] Coag (PPP) [Relative time] 1.6 {INR} Normal [facility] Comment on above: Result Comment: INR Therapeutic [...] heart valves: 3 - 4.5 PERFORMED BY: [place] [address] [facility] FRAME CLEANER QUINN MAGALLON M.D. Performed By: #### P T #### [facility] [address] [place] [address] PT Coag (PPP) [Time] 17.7 s High 9.0-12.9 [facility] Comment on above: Performed By: #### P T #### [facility] [address] [place] [address] Serum or plasma calcium ivana urement (mass/volume)Ordered By: Isidra Garibay on 01-14-2022 Calcium [Mass/Vol] 8.5 mg/dL 8.2-10.2 [facility] Serum or plasma chloride francesca surement (moles/volume)Ordered By: Isidra Garibay on 01-14-2022 Chloride [Moles/Vol] 99 mmol/L 95-114 [facility] Serum or plasma glucose ivana urement (mass/volume)Ordered By: Isidra Garibay on 01-14-2022 Glucose [Mass/Vol] 101 mg/dL 70-100 [facility] Comment on above: ADA recommended refe rence range Random Glucose Reference Range is dependent on time and content of last meal. Glucose of more than 200 mg/dL in a nonstressed, ambulatory subject supports the diagnosis of Diabetes Mellitus. Serum or plasma potassium me asurement (moles/volume)Ordered By: Isidra Garibay on 01-14-2022 Potassium [Moles/Vol] 4.2 mmol/L 3.5-5.1 [facility] Serum or plasma sodium measu rement (moles/volume)Ordered By: Isidra Garibay on 01-14-2022 Sodium [Moles/Vol] 129 mmol/L 136-146 [facility] Serum or plasma total carbon dioxide measurement (moles/volume)Ordered By: Isidra Garibay on 01-14-2022 CO2 [Moles/Vol] 21.8 mmol/L 22.0-30.0 [facility] Serum or plasma urea nitroge n measurement (mass/volume)Ordered By: Isidra Garibay on 01-14-2022 Urea nitrogen [Mass/Vol] 8 mg/dL 9-23 [facility] Basic Metabolic Panelon 060 Calcium [Mass/Vol] 8.3 mg/dL Normal 8.2-10.2 [facility] Comment on above: Performed By: #### P TT #### [facility] [address] [place] [address] [place] Chloride [Moles/Vol] 100 mmol/L Normal 95-114 [facility] Comment on above: Performed By: #### P TT #### [facility] [address] [id number] [place] CO2 [Moles/Vol] 22.1 mmol/L Normal 22.0-30.0 [facility] Comment on above: Performed By: #### P TT #### [facility] [address] [place] [address] [place] Creatinine [Mass/Vol] 0.65 mg/dL Normal 0.44-1.03 [facility] Comment on above: Performed By: #### P TT #### [facility] [address] [id number] [place] Creatinine Clr Calc Pharmacy 98.31 Normal [facility] Comment on above: Result Comment: PERF ORMED BY: [place] [address] PATHOLOGIST FRAME CLEANER QUINN MAGALLON M.D. Performed By: #### P TT #### [address] Estimated GFR ( Renea > 60 Normal [facility] Comment on above: Result Comment: GFR estimated reference range: According to KDOQI guidelines, <60 ml/min/1.73m2 is sufficient to diagnose a patient with chronic kidney disease. Performed By: #### P TT #### [address] Estimated GFR (Non- Am > 60 Normal [facility] Comment on above: Performed By: #### P TT #### [address] Glucose [Mass/Vol] 100 mg/dL Normal 70-100 [facility] Comment on above: Result Comment: [place] Glucose Reference Range is dependent on time and content of last meal. Glucose of more than 200 mg/dL in a nonstressed, ambulatory subject supports the diagnosis of Diabetes Mellitus. ADA recommended reference range Performed By: #### P TT #### [address] Potassium [Moles/Vol] 4.0 mmol/L Normal 3.5-5.1 [facility] Comment on above: Performed By: #### P TT #### [place] [address] [place] Sodium [Moles/Vol] 131 mmol/L Low 136-146 [facility] Comment on above: Performed By: #### P TT #### [place] [address] [place] Urea nitrogen [Mass/Vol] 9 mg/dL Normal 9-23 [facility] Comment on above: Performed By: #### P TT #### [address] ECG 12 lead ECGon 01-13-2022 ECG 12 lead ECG [facility] [place] [address] [place], [place] [id number] Electrocardiograph Report Signed Patient: Javier Link MR#: [id number] [birth year] : 1970 Acct:[id number] Age/Sex: 51 / F ADM Date: 01/10/22 Loc: 4 Room: [address] [place] [address] Type: DIS IN Attending Dr: Isidra Garibay [...] By Lenny Joseph DO 01/13 224 Normal [facility] Partial Thromboplastin Timeo n 01-13-2022 aPTT Coag (Bld) [Time] 35.9 s Normal 25.1-36.5 [facility] Comment on above: Result Comment: PERF ORMED BY: [place] [address] PATHOLOGIST FRAME CLEANER QUINN MAGALLON M.D. Performed By: #### P T #### [address] aPTT Coag (Bld) [Time] 54.7 s High 25.1-36.5 [facility] Comment on above: Result Comment: PERF ORMED BY: [address] [address] PATHOLOGIST FRAME CLEANER QUINN MAGALLON M.D. Performed By: #### B MP #### [address] aPTT Coag (Bld) [Time] 80.7 s High 25.1-36.5 [facility] Comment on above: Result Comment: PERF ORMED BY: [place] [address] PATHOLOGIST FRAME CLEANER QUINN MAGALLON M.D. Performed By: #### P T #### [address] Prothrombin Time INRon 01-13 INR Coag (PPP) [Relative time] 1.4 {INR} Normal [facility] Comment on above: Result Comment: INR Therapeutic [...] 4.5 Performed By: #### P T #### [address] PT Coag (PPP) [Time] 15.3 s High 9.0-12.9 [facility] Comment on above: Performed By: #### P T #### [address] Basic Metabolic Panelon 06-0 Calcium [Mass/Vol] 8.4 mg/dL Normal 8.2-10.2 [facility] Comment on above: Performed By: #### P T #### [address] Chloride [Moles/Vol] 99 mmol/L Normal 95-114 [facility] Comment on above: Performed By: #### P T #### [address] CO2 [Moles/Vol] 22.6 mmol/L Normal 22.0-30.0 [facility] Comment on above: Performed By: #### P T #### [address] Creatinine [Mass/Vol] 0.58 mg/dL Normal 0.44-1.03 [facility] Comment on above: Performed By: #### P T #### [place] [address] [place] Creatinine Clr Calc Pharmacy 111.20 [facility] Comment on above: Result Comment: PERF ORMED BY: [place] [address] PATHOLOGIST FRAME CLEANER QUINN MAGALLON M.D. Performed By: #### P T #### [address] Estimated GFR ( Renea > 60 [facility] Comment on above: Result Comment: GFR estimated reference range: According to KDOQI guidelines, <60 ml/min/1.73m2 is sufficient to diagnose a patient with chronic kidney disease. Performed By: #### P T #### [address] Estimated GFR (Non- Am > 60 [facility] Comment on above: Performed By: #### P T #### [address] Glucose [Mass/Vol] 115 mg/dL High 70-100 [facility] Comment on above: Result Comment: [place] om Glucose Reference Range is dependent on time and content of last meal. Glucose of more than 200 mg/dL in a nonstressed, ambulatory subject supports the diagnosis of Diabetes Mellitus. ADA recommended reference range Performed By: #### P T #### [address] Potassium [Moles/Vol] 3.3 mmol/L Low 3.5-5.1 [facility] Comment on above: Performed By: #### P T #### [place] [address] [place] Sodium [Moles/Vol] 131 mmol/L Low 136-146 [facility] Comment on above: Performed By: #### P T #### [facility] [address] [place] [address] Urea nitrogen [Mass/Vol] 5 mg/dL Low 9-23 [facility] Comment on above: Performed By: #### P T #### [address] Coagulation Profileon 2021 aPTT Coag (Bld) [Time] 51.3 s High 25.1-36.5 [facility] Comment on above: Result Comment: PERF ORMED BY: [place] [address] PATHOLOGIST FRAME CLEANER QUINN MAGALLON M.D. Performed By: #### P T #### [address] INR Coag (PPP) [Relative time] 1.2 {INR} Normal [facility] Comment on above: Result Comment: INR Therapeutic [...] 4.5 Performed By: #### P T #### [address] PT Coag (PPP) [Time] 13.6 s High 9.0-12.9 [facility] Comment on above: Performed By: #### P T #### [address] ECG 12 lead ECGon 01-12-2022 ECG 12 lead ECG [facility] [place] [address] [place] [address] Electrocardiograph Report Signed Patient: Javier Link MR#: [id number] [birth year] : 1970 Acct:[id number] Age/Sex: 51 / F ADM Date: 01/10/22 Loc: 4P Room: [address] [place] [address] Type: DIS IN Attending Dr: Isidra Garibay [...] By Lenny Joseph DO 01/12 1843 Normal [facility] Glucose Poct Glucometerson 0 01-12-2022 Glucose [Mass/Vol] 118 mg/dL Normal [facility] Comment on above: Result Comment: [facility] Glucose Reference Range is dependent on time and content of last meal. Glucose of more than 200 mg/dL in a nonstressed, ambulatory subject supports the diagnosis of Diabetes Mellitus. PERFORMED BY: [facility] [address] [place] [address] PATHOLOGIST FRAME CLEANER QUINN MAGALLON M.D. Performed By: #### G LULS #### Point of Care testing , Partial Thromboplastin Timeo n 01-12-2022 aPTT Coag (Bld) [Time] 53.0 s High 25.1-36.5 [facility] Comment on above: Order Comment: Quant ity not sufficient. Please resubmit. Result Comment: PERF ORMED BY: [facility] [address] [place] [address] PATHOLOGIST FRAME CLEANER QUINN MAGALLON M.D. Performed By: #### P T #### [address] aPTT Coag (Bld) [Time] 44.2 s High 25.1-36.5 [facility] Comment on above: Result Comment: PERF ORMED BY: [place] [address] PATHOLOGIST FRAME CLEANER QUINN MAGALLON M.D. Performed By: #### P T #### [address] aPTT Coag (Bld) [Time] 44.5 s High 25.1-36.5 [facility] Comment on above: Result Comment: PERF ORMED BY: [place] [address] PATHOLOGIST FRAME CLEANER QUINN MAGALLON M.D. Performed By: #### P TT #### [address] Prothrombin Time INRon 01-12 INR Coag (PPP) [Relative time] 1.2 {INR} Normal [facility] Comment on above: Result Comment: INR Therapeutic [...] heart valves: 3 - 4.5 PERFORMED BY: [place] [address] PATHOLOGIST FRAME CLEANER QUINN MAGALLON M.D. Performed By: #### P T #### [address] PT Coag (PPP) [Time] 13.9 s High 9.0-12.9 [facility] Comment on above: Performed By: #### P T #### [address] INR Coag (PPP) [Relative time] 1.2 {INR} Normal [facility] Comment on above: Order Comment: [...] heart valves: 3 - 4.5 PERFORMED BY: [place] [address] PATHOLOGIST FRAME CLEANER QUINN MAGALLON M.D. Performed By: #### P T #### [facility] [address] [place] [address] PT Coag (PPP) [Time] 13.4 s High 9.0-12.9 [facility] Comment on above: Order Comment: List the anticoagulant: HEPARIN/COUMADIN Performed By: #### P T #### [facility] [address] [place] [address] Albumin [Mass/volume] in Ser um or PlasmaOrdered By: Isidra Garibay on 01-11-2022 Albumin [Mass/Vol] 2.9 g/dL 3.2-5.5 [facility] Cholesterol [Mass/volume] in Serum or PlasmaOrdered By: Isidra Garibay on 01-11-2022 Cholesterol [Mass/Vol] 109 mg/dL 140-200 [facility] Comment on above: Chol less than 200 m g/dl low risk Chol 201-239 mg/dl borderline risk Chol 240 mg/dl and greater high risk Cholesterol in LDL Calc [Mas s/Vol]Ordered By: Isidra Garibay on 01-11-2022 Cholesterol in LDL [Mass/Vol] 49 mg/dL 0-100 [facility] Comment on above: LDL ATP III CLASSIFI CATION LDL less than 100 mg/dL Optimal LDL 100-129 mg/dL Near or above optimal LDL 130-159 mg/dL Borderline high LDL 160-189 mg/dL High LDL greater than 189 mg/dL Very high Cholesterol in VLDL Calc [Ma ss/Vol]Ordered By: Isidra Garibay on 01-11-2022 Cholesterol in VLDL [Mass/Vol] 16 mg/dL [facility] Comprehensive Metabolic Pane gaurav 01-11-2022 Albumin [Mass/Vol] 2.9 g/dL Low 3.2-5.5 [facility] Comment on above: Performed By: #### B MP #### [facility] [address] [place] [address] Albumin/Globulin [Mass ratio] 0.9 {ratio} Normal [facility] Comment on above: Performed By: #### B MP #### [facility] [address] [place] [address] ALP [Catalytic activity/Vol] 85 U/L Normal 32-92 [facility] Comment on above: Performed By: #### B MP #### [address] ALT [Catalytic activity/Vol] 58 U/L Normal 10-60 [facility] Comment on above: Performed By: #### B MP #### [facility] [address] [place] [address] AST [Catalytic activity/Vol] 212 U/L High 10-42 [facility] Comment on above: Performed By: #### B MP #### [facility] [address] [place] [address] Bilirubin [Mass/Vol] 0.6 mg/dL Normal 0.3-1.2 [facility] Comment on above: Performed By: #### B MP #### [facility] [address] [place] [address] [place] Calcium [Mass/Vol] 8.3 mg/dL Normal 8.2-10.2 [facility] Comment on above: Performed By: #### B MP #### [facility] [address] [place] [address] [place] Chloride [Moles/Vol] 96 mmol/L Normal 95-114 [facility] Comment on above: Performed By: #### B MP #### [facility] [address] [place] [address] [place] CO2 [Moles/Vol] 18.5 mmol/L Low 22.0-30.0 [facility] Comment on above: Performed By: #### B MP #### [facility] [address] Creatinine [Mass/Vol] 0.69 mg/dL Normal 0.44-1.03 [facility] Comment on above: Performed By: #### B MP #### [facility] 1[address] [place] [address] [place] Creatinine Clr Calc Pharmacy 93.47 [facility] Comment on above: Performed By: #### B MP #### [address] Estimated GFR ( Renea > 60 [facility] Comment on above: Result Comment: GFR estimated reference range: According to KDOQI guidelines, <60 ml/min/1.73m2 is sufficient to diagnose a patient with chronic kidney disease. Performed By: #### B MP #### [address] Estimated GFR (Non- Am > 60 [facility] Comment on above: Performed By: #### B MP #### [address] Globulin (S) [Mass/Vol] 3.1 g/dL [facility] Comment on above: Performed By: #### B MP #### [address] Glucose [Mass/Vol] 131 mg/dL High 70-100 [facility] Comment on above: Result Comment: [place] Glucose Reference Range is dependent on time and content of last meal. Glucose of more than 200 mg/dL in a nonstressed, ambulatory subject supports the diagnosis of Diabetes Mellitus. ADA recommended reference range Performed By: #### B MP #### [address] Potassium [Moles/Vol] 3.4 mmol/L Low 3.5-5.1 [facility] Comment on above: Performed By: #### B MP #### [address] Protein [Mass/Vol] 6.0 g/dL Low 6.1-7.9 [facility] Comment on above: Performed By: #### B MP #### [facility] [address] Sodium [Moles/Vol] 125 mmol/L Low 136-146 [facility] Comment on above: Performed By: #### B MP #### [facility] [address] Urea nitrogen [Mass/Vol] 7 mg/dL Low 9-23 [facility] Comment on above: Performed By: #### B MP #### [facility] [address] ECG 12 lead ECGon 01-11-2022 ECG 12 lead ECG [facility] [place] [address] [place] [address] Electrocardiograph Report Signed Patient: Javier Link MR#: [id number] [birth year] : 1970 Acct:[id number] Age/Sex: 51 / F ADM Date: 01/10/22 Loc: Room: [address] [place] [address] Type: DIS IN Attending Dr: Isidra Garibay [...] By Lenny Joseph DO 01/11 1851 Normal [facility] echo transthoracicon [facility] echo transthoracic [facility] [place] [address] [place] [address] Echocardiogram Signed Patient: Javier Link MR#: [id number] [birth year] : 1970 Acct:[id number] Age/Sex: 51 / F ADM Date: 01/10/22 Loc: Room: [address] [place] [address] Type: DIS IN Attending Dr: Isidra Garibay DO Ordering Provider: Isidra Garibay DO Date of Service: 01/11/22 [facility] echo transthoracic: Anterolateral STEMI Copies to: DO [...] Signed By: Nolan Avendaño MD 01/11/22 1316 [facility] Globulin Calc (S) [Mass/Vol] Ordered By: Isidra Garibay on 01-11-2022 Globulin (S) [Mass/Vol] 3.1 g/dL [facility] Glucose Glucometer (BldC) [M ass/Vol]Ordered By: Isidra Garibay on 01-11-2022 Glucose [Mass/Vol] 118 mg/dL [facility] Comment on above: Random Glucose Refer ence Range is dependent on time and content of last meal. Glucose of more than 200 mg/dL in a nonstressed, ambulatory subject supports the diagnosis of Diabetes Mellitus. Glucose Poct Glucometerson 0 01-11-2022 Commemt1 Glu2: Cleaned Meter [facility] Comment on above: Result Comment: PERF ORMED BY: [facility] [address] [place] [address] PATHOLOGIST FRAME CLEANER QUINN MAGALLON M.D. Performed By: #### B MP #### [address] Glucose [Mass/Vol] 135 mg/dL Normal [facility] Comment on above: Result Comment: [place] om Glucose Reference Range is dependent on time and content of last meal. Glucose of more than 200 mg/dL in a nonstressed, ambulatory subject supports the diagnosis of Diabetes Mellitus. Performed By: #### B MP #### [address] Glucose [Mass/Vol] 128 mg/dL Normal [facility] Comment on above: Result Comment: [place] om Glucose Reference Range is dependent on time and content of last meal. Glucose of more than 200 mg/dL in a nonstressed, ambulatory subject supports the diagnosis of Diabetes Mellitus. PERFORMED BY: [place] [address] PATHOLOGIST FRAME CLEANER QUINN MAGALLON M.D. Performed By: #### B MP #### [address] Glucose [Mass/Vol] 126 mg/dL Normal [facility] Comment on above: Result Comment: [place] om Glucose Reference Range is dependent on time and content of last meal. Glucose of more than 200 mg/dL in a nonstressed, ambulatory subject supports the diagnosis of Diabetes Mellitus. PERFORMED BY: [place] [address] PATHOLOGIST FRAME CLEANER QUINN MAGALLON M.D. Performed By: #### P TT #### [address] Lipid Panelon 01-11-2022 Cholesterol [Mass/Vol] 109 mg/dL Low 140-200 [facility] Comment on above: Result Comment: Chol less than 200 mg/dl low risk Chol 201-239 mg/dl borderline risk Chol 240 mg/dl and greater high risk Performed By: #### B MP #### [place] [id number] [place] Cholesterol in HDL [Mass/Vol] 43 mg/dL Normal 35-85 [facility] Comment on above: Result Comment: HDL CHOL ATP-III CLASSIFICATION Cardiovascular Risk HDL > or equal to 60 mg/dL LOW HDL < 40 mg/dL HIGH Performed By: #### B MP #### [facility] [address] Cholesterol.total/Chol esterol in HDL [Mass ratio] 2.5 {ratio} Normal <5.0 [facility] Comment on above: Result Comment: PERF ORMED BY: [place] [address] PATHOLOGIST FRAME CLEANER QUINN MAGALLON M.D. Performed By: #### B MP #### [address] LDL Cholesterol,Calculated 49 mg/dL Normal 0-100 [facility] Comment on above: Result Comment: LDL ATP III CLASSIFICATION LDL less than 100 mg/dL Optimal LDL 100-129 mg/dL Near or above optimal LDL 130-159 mg/dL Borderline high LDL 160-189 mg/dL High LDL greater than 189 mg/dL Very high Performed By: #### B MP #### [address] Triglyceride w/Reflex 83 mg/dL Normal 35-149 [facility] Comment on above: Result Comment: TRIG ATP III CLASSIFICATION TRIG less than 150 mg/dL Normal TRIG 150-199 mg/dL Borderline high TRIG 200-500 mg/dL High TRIG greater than 500 mg/dL Very high Standard traceable to the Center for Disease Conrtrol and Prevention (CDC) test method. Performed By: #### B MP #### [facility] [address] VLDL CHOLESTEROL 16 mg/dL Normal [facility] Comment on above: Performed By: #### B MP #### [address] No Panel InformationOrdered By: Isidra Garibay on 01-11-2022 Bedside Glucose Comment Glu2: cleaned meter [facility] Partial Thromboplastin Timeo n 01-11-2022 aPTT Coag (Bld) [Time] 43.1 s High 25.1-36.5 [facility] Comment on above: Result Comment: PERF ORMED BY: [facility] [address] [place] [address] PATHOLOGIST FRAME CLEANER QUINN MAGALLON M.D. Performed By: #### P TT #### [facility] [address] aPTT Coag (Bld) [Time] 41.3 s High 25.1-36.5 [facility] Comment on above: Result Comment: PERF ORMED BY: [address] [place] [address] PATHOLOGIST FRAME CLEANER QUINN MAGALLON M.D. Performed By: #### P TT #### [facility] 1111 [place], [place] [address] aPTT Coag (Bld) [Time] 53.9 s High 25.1-36.5 [facility] Comment on above: Result Comment: PERF ORMED BY: [address] [place] [address] PATHOLOGIST FRAME CLEANER QUINN MAGALLON M.D. Performed By: #### P TT #### [facility] [address] [place], [place] [id number] [facility] Protein [Mass/volume] in Ser um or PlasmaOrdered By: Isidra Garibay on 01-11-2022 Protein [Mass/Vol] 6.0 g/dL 6.1-7.9 [facility] Prothrombin Time INRon 01-11 INR Coag (PPP) [Relative time] 1.1 {INR} Normal [facility] Comment on above: Result Comment: INR Therapeutic [...] heart valves: 3 - 4.5 PERFORMED BY: [place] [address] PATHOLOGIST FRAME CLEANER QUINN MAGALLON M.D. Performed By: #### B MP #### [facility] [address] [place] [address] PT Coag (PPP) [Time] 12.3 s Normal 9.0-12.9 [facility] Comment on above: Performed By: #### B MP #### [facility] [address] [place] [address] Serum or plasma alanine gore otransferase measurement without P-5'-P (enzymatic activiOrdered By: Isidra Garibay on 01-11-2022 ALT No additional P-5'-P [Catalytic activity/Vol] 58 U/L 10-60 [facility] Serum or plasma albumin/glob ulin mass ratioOrdered By: Isidra Garibay on 01-11-2022 Albumin/Globulin [Mass ratio] 0.9 {ratio} [facility] Serum or plasma alkaline carl sphatase measurement (enzymatic activity/volume)Ordered By: Isidra Garibay on 01-11-2022 ALP [Catalytic activity/Vol] 85 U/L 32-92 [facility] Serum or plasma aspartate am inotransferase measurement (enzymatic activity/volume)Ordered By: Isidra Garibay on 01-11-2022 AST [Catalytic activity/Vol] 212 U/L 10-42 [facility] Serum or plasma high density lipoprotein (HDL) cholesterol measurementOrdered By: Isidra Garibay on 01-11-2022 Cholesterol in HDL [Mass/Vol] 43 mg/dL 35-85 [facility] Comment on above: HDL CHOL ATP-III CLA SSIFICATION Cardiovascular Risk HDL > or equal to 60 mg/dL LOW HDL < 40 mg/dL HIGH Serum or plasma total biliru bin measurement (mass/volume)Ordered By: Isidra Garibay on 01-11-2022 Bilirubin [Mass/Vol] 0.6 mg/dL 0.3-1.2 [facility] Serum or plasma total choles terol/high density lipoprotein (HDL) cholesterol mass ratOrdered By: Isidra Garibay on 01-11-2022 Cholesterol.total/Chol esterol in HDL [Mass ratio] 2.5 {ratio} [facility] Triglyceride [Mass/volume] i n Serum or PlasmaOrdered By: Isidra Garibay on 01-11-2022 Triglyceride [Mass/Vol] 83 mg/dL 35-149 [facility] Comment on above: TRIG ATP III CLASSIF ICATION TRIG less than 150 mg/dL Normal TRIG 150-199 mg/dL Borderline high TRIG 200-500 mg/dL High TRIG greater than 500 mg/dL Very high Standard traceable to the Center for Disease Conrtrol and Prevention (CDC) test method. Troponin I High Sensitivityo n 01-11-2022 Troponin I High Sensitivity 35838 pg/mL Off scale high 0-15 [facility] Comment on above: Result Comment: Resu lts called at 0805 on 01/11/22 PERFORMED BY: [place] [address] PATHOLOGIST FRAME CLEANER QUINN MAGALLON M.D. Performed By: #### B MP #### [address] Troponin I High Sensitivity 856525 pg/mL Off scale high [address] Comment on above: Order Comment: iván hart rn [facility] Result Comment: Resu lts called at 0040 on 01/11/22 PERFORMED BY: [place] [address] PATHOLOGIST FRAME CLEANER QUINN MAGALLON M.D. Performed By: #### P TT #### [facility] [address] [place] [address] Troponin I.cardiac [Mass/vol ume] in Serum or Plasma by High sensitivity methodOrdered By: Isidra Garibay on 01-11-2022 Troponin I.cardiac High sensitivity method [Mass/Vol] 94618 pg/mL 0-15 [facility] Comment on above: Results called at 0805 on 01/11/22 XR chest 1V portableon 01-11 XR chest 1V portable [facility] [place] [address] [place] [address] XRay Report Signed Patient: Javier Link MR#: [id number] [birth year] : 1970 Acct:[id number] Age/Sex: 51 / F ADM Date: 01/10/22 Loc: Room: 3D8690-7 Type: ADM IN Attending Dr: Isidra Garibay [...] Chastity Humphreys M.D.01/11/2022 8:19 AM Dictation Location: [place] [address] Transcribed By: [facility] 01/11/22818 Dictated By: Chastity Humphreys II, MD 01/11/22813 Signed By: 01/11/22818 [facility] AMYLASEon 01-10-2022 Amylase [Catalytic activity/Vol] 37 U/L Normal 25-115 [facility] Comment on above: Performed By: #### C BC #### [facility] [address] [place] [address] [address] Vangie Devine Basic Metabolic Panelon 12-14 Calcium [Mass/Vol] 8.7 mg/dL Normal 8.2-10.2 [facility] Comment on above: Performed By: #### P TT #### [facility] [address] Chloride [Moles/Vol] 99 mmol/L Normal 95-114 [facility] Comment on above: Performed By: #### P TT #### [facility] 1[address] [place] [address] [place] CO2 [Moles/Vol] 20.2 mmol/L Low 22.0-30.0 [facility] Comment on above: Performed By: #### P TT #### [facility] [address] Creatinine [Mass/Vol] 0.72 mg/dL Normal 0.44-1.03 [facility] Comment on above: Performed By: #### P TT #### [place] [address] [place] Creatinine Clr Calc Pharmacy 90.46 [facility] Comment on above: Performed By: #### P TT #### [address] Estimated GFR ( Renea > 60 [facility] Comment on above: Result Comment: GFR estimated reference range: According to KDOQI guidelines, <60 ml/min/1.73m2 is sufficient to diagnose a patient with chronic kidney disease. Performed By: #### P TT #### [address] Estimated GFR (Non- Am > 60 [facility] Comment on above: Performed By: #### P TT #### [address] Glucose [Mass/Vol] 137 mg/dL High 70-100 [facility] Comment on above: Result Comment: [place] om Glucose Reference Range is dependent on time and content of last meal. Glucose of more than 200 mg/dL in a nonstressed, ambulatory subject supports the diagnosis of Diabetes Mellitus. ADA recommended reference range Performed By: #### P TT #### [place] [address] [place] Potassium [Moles/Vol] 3.8 mmol/L Normal 3.5-5.1 [facility] Comment on above: Performed By: #### P TT #### [place] [address] [place] Sodium [Moles/Vol] 130 mmol/L Low 136-146 [facility] Comment on above: Performed By: #### P TT #### [facility] [address] Urea nitrogen [Mass/Vol] 9 mg/dL Normal 9- [facility] Comment on above: Performed By: #### P TT #### [facility] [address] [place] [id number] [facility] CARDIAC CHASTITY ADMITon 022 CK [Catalytic activity/Vol] 206 U/L Critically high - [facility] Comment on above: Performed By: #### C BC #### [facility] [address] [place] [address] [address] Vangie Devine CK.MB [Mass/Vol] 3.65 ng/mL Critically high <=3.60 [facility] Comment on above: Performed By: #### C BC #### [facility] [address] [place] [address] Dr. Vangie Devine HSTROP 80.4 pg/mL Critically high 4.0-51.[address] [facility] Comment on above: Result Comment: CUT- OFF POINTS HAVE BEEN ESTABLISHED BASED ON THE FOURTH UNIVERSAL DEFINITIONS OF MYOCARDIAL INFARCTION. THE UPPER REFERENCE LIMIT (URL) OF TROPONIN, DEFINED THE 99TH PERCENTILE OF cTnI DISTRIBUTION IN A REFERENCE POPULATION, HAS BEEN CONFIRMED THE DECISION THRESHOLD FOR VT DIAGNOSIS. Performed By: #### C BC #### [facility] [address] [place] [address] Dr. Vangie Devine AJ 119 ng/mL Critically high [facility] Comment on above: Performed By: #### C BC #### [facility] [address] [place] [address] Dr. Vangie Devine CBC W MANUAL DIFFon 01-11-20 22 ATYPICAL LYMPH # 0.93 103/ul Normal [facility] Comment on above: Performed By: #### C BCMAN #### [facility] [address] [place] [address] Dr. Vangie Devine ATYPICAL LYMPH % 3 % Normal [facility] Comment on above: Performed By: #### C BCMAN #### [facility] [address] [place] [address] Dr. Vangie Devine BAND # 1.6 103/ul Critically high 0.0-0.[address] [facility] Comment on above: Performed By: #### C BCHERIBERTO #### [facility] [address] [place] [address] Dr. Vangie Devine BAND % 5 % Normal 0-5 [facility] Comment on above: Performed By: #### C JOBY #### [facility] [address] [place] [address] Dr. Vangie Devine BASOM # 0.00 103/ul Normal 0.00-0.10 [facility] Comment on above: Performed By: #### C JOBY #### [facility] [address] [place] [address] Dr. Vangie Devine BASOM % 0.0 % Critically low 0.2-2.[address] [facility] Comment on above: Performed By: #### C JOBY #### [facility] [address] [place] [address] Dr. Vangie Devine BLAST # 0.0 103/ul Normal [facility] Comment on above: Performed By: #### C JOBY #### [facility] [address] [place] [address] Dr. Vangie Devine BLAST % Normal [facility] Comment on above: Performed By: #### C JOBY #### [facility] [address] [place] [address] Dr. Vangie Devine CORRECTED WBC Normal 4.0-11.0 [facility] Comment on above: Performed By: #### C JOBY #### [facility] [address] [place] [address] Dr. Vangie Devine EOS # 0.00 103/ul Normal 0.00-0.70 [facility] Comment on above: Performed By: #### C JOBY #### [facility] [address] [place] [address] Dr. Vangie Devine EOS% 0.0 % Critically low 0.9-7.[address] [facility] Comment on above: Performed By: #### C JOBY #### [facility] [address] [place] [address] Dr. Vangie Devine HCT 42.0 % Normal 36.0-48.0 [facility] Comment on above: Performed By: #### C JOBY #### [facility] [address] [place] [address] Dr. Vangie Devine HGB 14.6 g/dl Normal 12.0-16.0 [facility] Comment on above: Performed By: #### C JOBY #### [facility] [address] [place] [address] Dr. Vangie Devine HYPERSEG NEUT 1+ Normal [facility] Comment on above: Performed By: #### C JOBY #### [facility] [address] [place] [address] Dr. Vangie Devine LYMPHM # 4.03 103/ul Critically high 1.20-3.80 [facility] Comment on above: Performed By: #### C JOBY #### [facility] [address] [place] [address] Dr. Vangie Devine LYMPHM% 13.0 % Critically low 20.5-60.[address] [facility] Comment on above: Performed By: #### C JOBY #### [facility] [address] [place] [address] Dr. Vangie Devine MCH 32.7 pg Normal 26.7-34.0 [facility] Comment on above: Performed By: #### C JOBY #### [facility] [address] [place] [address] Dr. Vangie Devine MCHC 34.8 g/dl Normal 29.9-35.2 [facility] Comment on above: Performed By: #### C JOBY #### [facility] [address] [place] [address] Dr. Vangie Devine MCV 94.2 fL Normal 81.0-99.0 [facility] Comment on above: Performed By: #### C JOBY #### [facility] [address] [place] [address] Dr. Vangie Devine METAMYELOCYTE # 1.2 103/ul Normal [facility] Comment on above: Performed By: #### C JOBY #### [facility] [address] [place] [address] [address] Vangie Devine METAMYELOCYTE % 4 % Normal [facility] Comment on above: Performed By: #### C JOBY #### [facility] [address] [place] [address] [address] Vangie Devine MONOM# 0.93 103/ul Critically high 0.30-0.80 [facility] Comment on above: Performed By: #### C JOBY #### [facility] [address] [place] [address] [address] Vangie Devine MONOM% 3.0 % Normal 1.7-12.0 [facility] Comment on above: Performed By: #### C JOBY #### [facility] [address] [place] [address] Dr. Vangie Devine MPV 10.4 fL Normal 9.5-13.5 [facility] Comment on above: Performed By: #### C JOBY #### [facility] [address] [place] [address] Dr. Vangie Devine MYELOCYTE # 0.9 103/ul Normal [facility] Comment on above: Performed By: #### C JOBY #### [facility] [address] [place] [address] Dr. Vangie Devine MYELOCYTE % 3 % Normal [facility] Comment on above: Performed By: #### C JOBY #### [facility] [address] [place] [address] Dr. Vangie Devine NRBC 0 Normal [facility] Comment on above: Performed By: #### C JOBY #### [facility] [address] [place] [address] [address] Vangie Devine PLT 460 103/ul Critically high 150-450 [facility] Comment on above: Performed By: #### C JOBY #### [facility] [address] [place] [address] Dr. Vangie Devine RBC 4.46 106/ul Normal 4.20-5.40 [facility] Comment on above: Performed By: #### C BCMAN #### [facility] [address] [address] [address] Vangie Devine RDW 12.6 % Normal 11.0-15.0 [facility] Comment on above: Performed By: #### C BCMAN #### [facility] [address] [place], [place] [address] Dr. Vangie Devine SEG # 21.39 103/ul Critically high 1.40-6.50 [facility] Comment on above: Performed By: #### C BCMAN #### [facility] [address] [address] [address] Vangie Devine SEG % 69.0 % Normal 43.0-75.0 [facility] Comment on above: Performed By: #### C BCMAN #### [facility] [address] [place] [address] Dr. Vangie Devine WBC 31.0 103/ul Critically high 4.0-11.0 [facility] Comment on above: Performed By: #### C BCMAN #### [facility] [address] [place] [address] Dr. Vangie Devine Covid-19 [facility] 12-14 SARS-CoV-2 (COVID-19) RNA SAMIR+probe Ql (Unsp spec) Not detected Normal NOT DETECTED [facility] Comment on above: Result Comment: When [...] for this test is supported by the Professor Of Fine Art of Health and Human Service's declaration that [...] used). Performed By: #### C JOBY #### [facility] [address] [place] [address] Dr. Vangie Devine ECG 12 lead ECGon 01-10-2022 ECG 12 lead ECG [facility] [place] [address] [place] [address] Electrocardiograph Report Signed Patient: Javier Link MR#: [id number] : 1970 Acct:[id number] Age/Sex: 51 / F ADM Date: 01/10/22 Loc: Room: [address] [place] [address] Type: DIS IN Attending Dr: Isidra Garibay [...] Signed By Lenny Joseph DO 01/10 Normal [facility] Glucose Poct Glucometerson 0 01-10-2022 Glucose [Mass/Vol] 148 mg/dL Normal [facility] Comment on above: Result Comment: [place] Glucose Reference Range is dependent on time and content of last meal. Glucose of more than 200 mg/dL in a nonstressed, ambulatory subject supports the diagnosis of Diabetes Mellitus. PERFORMED BY: [place] [address] PATHOLOGIST FRAME CLEANER JIANLAN SUN M.D. Performed By: #### P T #### [address] Glucose [Mass/Vol] 139 mg/dL Normal [facility] Comment on above: Result Comment: [facility] Glucose Reference Range is dependent on time and content of last meal. Glucose of more than 200 mg/dL in a nonstressed, ambulatory subject supports the diagnosis of Diabetes Mellitus. PERFORMED BY: [place] [address] PATHOLOGIST FRAME CLEANER QUINN MAGALLON M.D. Performed By: #### P TT #### [address] LIPASEon 01-10-2022 Lipase [Catalytic activity/Vol] 63.0 U/L Critically low 73.0-393.0 [facility] Comment on above: Performed By: #### C BCMAN #### [facility] [address] [address] [address] Vangie Devine Laboratory - Chemistry and C hemistry - challengeOrdered By: Isidra Garibay on 01-10-2022 Magnesium [Mass/Vol] 2.0 mg/dL 1.6-2.6 [facility] Magnesiumon 01-10-2022 Magnesium [Mass/Vol] 2.0 mg/dL Normal 1.6-2.6 [facility] Comment on above: Result Comment: PERF ORMED BY: [place] [address] PATHOLOGIST FRAME CLEANER QUINN MAGALLON M.D. Performed By: #### P TT #### [id number] [facility] PROTIMEon 01-10-2022 INR Coag (PPP) [Relative time] 1.01 {INR} Normal [facility] Comment on above: Performed By: #### P TT, PT #### [facility] [address] [place] [address] Dr. Vangie Devine INR GUIDELINES SEE BELOW Normal [facility] Comment on above: Result Comment: MARY ANN RED INR: 2.0 - 3.0 CONDITIONS NOT LISTED BELOW 2.5 - 3.5 FOR PROSTHETIC HEART VALVE REPLACEMENT 2.5 - 3.5 RECURRENT THROMBOSIS Performed By: #### P TT, PT #### [facility] [address] [place] [address] Dr. Vangie Devine PT Coag (PPP) [Time] 10.9 s Normal 9.0-11.6 [facility] Comment on above: Performed By: #### P TT, PT #### [facility] [address] [place] [address] Dr. Vangie Devine PTTon 01-10-2022 aPTT Coag (Bld) [Time] 26.3 s Normal 22.3-36.2 Th [facility] Comment on above: Performed By: #### P TT, PT #### [facility] [address] [place] [address] Dr. Vangie Devine Partial Thromboplastin Timeo n 01-10-2022 aPTT Coag (Bld) [Time] 50.4 s High 25.1-36.5 [facility] Comment on above: Order Comment: List the anticoagulant: HEPARIN, UNFRACTIONATED Result Comment: PERF ORMED BY: [place] [address] PATHOLOGIST FRAME CLEANER QUINN MAGALLON M.D. Performed By: #### P TT #### [address] Troponin I High Sensitivityo n 01-10-2022 Troponin I High Sensitivity 235161 pg/mL Off scale high 0-15 [facility] Comment on above: Order Comment: iván hart rn [facility] Result Comment: Crit ical value result called at 2135 on 01/10/22 PERFORMED BY: [place] [address] PATHOLOGIST FRAME CLEANER QUINN MAGALLON M.D. Performed By: #### P TT #### [facility] [address] [place] [address] Troponin I High Sensitivity 259114 pg/mL Off scale high 0-15 [facility] Comment on above: Result Comment: Crit ical value result called at 1812 on 01/10/22 PERFORMED BY: [address] [place] [id number] PATHOLOGIST FRAME CLEANER QUINN MAGALLON M.D. Performed By: #### P TT #### [id number] [facility] Troponin I High Sensitivity Normal 0-15 [facility] Comment on above: Result Comment: Ugo tity not sufficient. Please resubmit. PERFORMED BY: [address] [id number] PATHOLOGIST FRAME CLEANER QUINN MAGALLON M.D. Performed By: #### P T #### [id number] [facility] Troponin I High Sensitivity 01909 pg/mL Off scale high 0-15 [facility] Comment on above: Result Comment: Crit ical value result called at 1435 on 01/10/22 PERFORMED BY: [place] [id number] PATHOLOGIST FRAME CLEANER QUINN MAGALLON M.D. Performed By: #### P TT #### [id number] [place] XR CHEST 1 Von 01-10-2022 XR CHEST 1 V CLINICAL HISTORY: Chest pain COMPARISON: Chest radiograph 12/20/2015 at [facility]. FINDINGS: Portable AP view of the chest obtained. Cardiomediastinal silhouette is normal. Lungs are clear, no evidence of infiltrate, suspicious nodule, or mass. No evidence of significant pleural fluid on this portable projection. No acute bony abnormality. IMPRESSION: No acute abnormality. Electronically authenticated by: MADELAINE ALVA Date: 2022-01-10 10:16 Normal [facility] WRIST LEFT 3 Son 2 WRIST LEFT 3 S [facility] Department of Radiology [address] [place] [phone] Patient Name: JAVIER LINK : 1970 Sex: F Age: Race: White Pt. 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 Electronically signed: QUANG RUFFIN. Transcribed by: [email or web address], User Resident: Electronically Signed by: QUANG RUFFIN @ 09/10/2021 09:04 AM Normal [facility] Comment on above: Order Comment: Evalu ate Operative Reporton Operative Report MR#: [id number] S [facility] Pt. Name: Javier Link Room #: 0C Discharge Date: Birthdate: 1970 OPERATIVE REPORT DATE OF SURGERY: 07/22/2021 SURGEON: Rafi Biswas M.D. PREOPERATIVE DIAGNOSIS: Kienbock's disease, stage IV, left lunate. POSTOPERATIVE DIAGNOSIS: Kienbock's disease, stage IV, left lunate. PROCEDURE: Proximal row carpectomy, left wrist. WHEELCHAIR DRIVER: Maricarmen Liao M.D. ANESTHESIA: Regional. INDICATION FOR [...] took some 3-0 TiCron and put a koiomg-ti-ermqu suture in that dorsal portion of the TFCC right near the ulnar styloid where the small tear was. The volar part of the TFCC looks good. Once that was in, the dorsal capsule was closed with multiple jguxdk-cb-ktgca sutures of 2-0 Vicryl. The subcutaneous tissue [...] Biswas M.D. Date Trans: 07/22/2021 10:32 A/mmo [id number] cc: Moriah Mack M.D. [address] [place] [address] Normal [facility] POC GLUCOSE LABon 07-22-2021 Glucose [Mass/Vol] 85 mg/dL Normal 70-100 [facility] Comment on above: Performed By: #### 8 [id number] #### [address] MRI WRIST WO CONTRAST RIGHTo n 06-09-2021 MRI WRIST WO CONTRAST RIGHT [facility] Department of Radiology [address] [place] [phone] Patient Name: JAVIER LINK : 1970 Sex: F Age: Race: White Pt. 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 Electronically signed: Liz Harp. Transcribed by: [email or web address], User Resident: Electronically Signed by: LIZ HARP @ 06/11/2021 09:46 AM Normal [facility] Comment on above: Order Comment: Evide nce Keinbock's R wrist on outside x-ray, evaluate for staging and surgical planning. , Side: RIGHT WRIST LEFT 3 [facility] 1 WRIST LEFT 3 [facility] Department of Radiology [address] [place] [phone] Patient Name: JAVIER LINK : 1970 Sex: F Age: Race: White Pt. 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 COMPARISON: None. IMPRESSION: 1. Subtle sclerosis lunate suggests possibility of osteonecrosis. No significant ulnar variance. 2. No acute fracture. No dislocation. Likely remote injury ulnar styloid. 3. Borderline widening scapholunate interval. 4. Multiple moderate triscaphe and radiocarpal arthritis. Electronically signed: Alonso Iglesias. Transcribed by: [email or web address], User Resident: Electronically Signed by: ALONSO IGLESIAS @ 05/19/2021 12:56 PM Normal [facility] Comment on above: Order Comment: evalu ate WRIST RIGHT 3 Son 05-18-20 21 WRIST RIGHT 3 S [facility] Department of Radiology [address] [place] [phone] Patient Name: JAVIER LINK : 1970 Sex: F Age: Race: White Pt. 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 COMPARISON: None. IMPRESSION: 1. Subtle sclerosis lunate suggest osteonecrosis. 2. No acute fracture. No malalignment. No significant ulnar variance. Electronically signed: Alonso Iglesias. Transcribed by: [email or web address], User Resident: Electronically Signed by: ALONSO IGLESIAS @ 05/19/2021 12:55 PM Normal [facility] Comment on above: Order Comment: evalu ate Vital Signs Date Time Vital Sign Value Performing Clinician Facility 01-20-2022 12:07-0400 Diastolic blood pressure 58 mm[Hg] No PCP None [facility] 250 DO Work Phone: 01-20-2022 12:07-0400 Systolic blood pressure 105 mm[Hg] No PCP None [facility] 250 DO Work Phone: 01-20-2022 11:58-0400 Body height 147.32 cm No PCP None [facility] 250 DO Work Phone: 01-20-2022 11:58-0400 Body mass index (BMI) [Ratio] 38.87 kg/m2 No PCP None [facility] 250 DO Work Phone: 01-20-2022 11:58-0400 Body surface area Derived from formula 1.77 m2 No PCP None [facility] 250 DO Work Phone: 01-20-2022 11:58-0400 Body weight 84.37 kg No PCP None [facility] DO Work Phone: 01-20-2022 11:58-0400 Diastolic blood pressure 62 mm[Hg] No PCP None [facility] DO Work Phone: 01-20-2022 11:58-0400 Heart rate 60 /min No PCP None [facility] DO Work Phone: 01-20-2022 11:58-0400 Systolic blood pressure 110 mm[Hg] No PCP None [facility] DO Work Phone: 01-20-2022 11:58-0400 6 1 No PCP None [facility] DO Work Phone: Comment on above: PHQ-9 TS 01-14-2022 13:04-0400 Heart rate 74 /min DO W Clarke Garibay Work Phone: [facility] 01-14-2022 13:04-0400 Respiratory rate 20 /min DO W Clarke Yusufdon Work Phone: [facility] 01-14-2022 12:00-0400 Body temperature 98.4 [degF] DO W Clarke Yusufdon Work Phone: [facility] 01-14-2022 12:00-0400 Diastolic blood pressure 69 mm[Hg] DO W Clarke Bebo Work Phone: [facility] 01-14-2022 12:00-0400 SaO2% (BldA) [Mass fraction] 96 % DO W Clarke Bebo Work Phone: [facility] 01-14-2022 12:00-0400 Systolic blood pressure 98 mm[Hg] DO W Clarke Bebo Work Phone: [facility] 01-14-2022 04:55-0400 Body weight 85 kg DO W Clarke Garibay Work Phone: [facility] 01-12-2022 08:00-0400 Inhaled oxygen flow rate 3 L/min DO W Clarke Garibay Work Phone: [facility] 01-11-2022 16:45-0400 Inhaled oxygen concentration 50 % DO W Clarke Garibay Work Phone: [facility] 01-11-2022 00:00-0400 35 1 No PCP None -[facility] DO Work Phone: Comment on above: [id number] 01-10-2022 13:01-0400 Body height 147.32 cm DO W Clarke Garibay Work Phone: [facility] 01-10-2022 13:01-0400 Body mass index (BMI) [Ratio] 39.2 kg/m2 DO W Clarke Garibay Work Phone: [facility] Encounters Encounter Date Encounter Type Care Provider Facility Start: 04-30-2024 ambulatory [facility] Start: 03-15-2024 ambulatory [facility] Start: 02-27-2024 End: 02-27-2024 ambulatory [facility] Start: 02-07-2024 ambulatory DELL WEAVER [facility] Start: 01-22-2024 Encounter for preprocedural cardiovascular examination [facility] Start: 01-22-2024 ambulatory [facility] Start: 01-12-2024 End: 01-12-2024 ambulatory YELNEA CRUZ [facility] Start: 07-31-2023 End: 07-31-2023 ambulatory CIRILO RUBALCAVA [facility] Start: 07-18-2023 End: 07-18-2023 ambulatory [facility] Start: 06-28-2023 End: 06-28-2023 ambulatory DEENA BENTON [facility] Start: 05-23-2023 End: 05-23-2023 ambulatory RAFI BISWAS [facility] Start: 12-21-2022 End: 12-22-[address] [...] Start: 01-27-2022 Chart Update No PCP None [facility] DO Work Phone: Start: 01-20-2022 End: 02-11-2022 ambulatory SHAIKH Sergo HERRERA Facility: Start: 01-20-2022 Transitional care moni clark srvc 7 day discharge No PCP None [facility] DO Work Phone: Start: 01-17-2022 End: 01-18-[address] NOLAN GARIBAY Facility: Start: 01-10-2022 End: 01-14-2022 Evaluation and management of inpatient W Clarke Garibay Facility:[facility] Start: 01-10-2022 End: 01-14-2022 Evaluation and management of inpatient DO W Clarke Garibay Work Phone: [facility] Start: 01-10-2022 End: 01-10-2022 ambulatory HASMUKH KATZ . Facility: Start: 07-22-2021 End: 07-23-2021 ambulatory RAFI BISWAS Facility:[facility] Procedures Date Procedure Procedure Detail Performing [...] Nolan Garibay, Status: Pen, Time: 10:50 AM -[facility] DO Work Phone: Start: 03-21-2022 FUV, Provider: Beth Hull, Status: Pen, Time: 8:30 AM FUV, Provider: Beth Hull, Status: Pen, Time: 8:30 AM [facility] DO Work Phone: Start: 03-14-2022 ECHO, Provider: LUCAS [facility] ULTRASOUND 01,[id number], Status: Pen, Time: 10:45 AM ECHO, Provider: LUCAS [facility] ULTRASOUND 01,[id number], Status: Pen, Time: 10:45 AM -[facility] DO Work Phone: Start: 01-26-2022 STRESS MARK, Provider : LUCAS [facility]VI NUCLEAR 01,[id number], Status: Pen, Time: 2:00 PM STRESS MARK, Provider: LUCAS HANI NUCLEAR 01,[id number], Status: Pen, Time: 2:00 PM [facility] DO Work Phone: Patient Education Coronary Angio plasty (DC) Angina (DC) Drug Eluting Stents [facility] Work Phone: Patient referral [facility] Work Phone: Payers Date Payer Category Payer Medicare [id number] 2019 Unknown [id number] 1970 Unknown [id number] 2.16.8 [id number] 1970 Unknown [id number] 2.16.84 0.1.936079.3.579.2.593 1970 Unknown [id number] 2.16.84 0.1.401890.3.579.2.593 1970 Unknown [id number] 2.16.84 0.1.562899.3.579.2.593 1970 Unknown [id number] 2.16.84 0.1.618069.3.579.2.593 1970 Unknown [id number] 2.16.84 0.1.440397.3.579.2.593 1970 Unknown [id number] 2.16.84 0.1.444280.3.579.2.593 1970 Unknown [id number] 2.16.84 0.1.203514.3.579.2.593 1970 Unknown [id number] 2.16.84 0.1.530000.3.579.2.593 1970 Unknown [id number] 2.16.84 0.1.785303.3.579.2.593 1970 Unknown [id number] 2.16.84 0.1.175029.3.579.2.593 1970 Unknown [id number] 2.16.84 0.1.712795.3.579.2.593 1970 Unknown [id number] 2.16.84 0.1.425916.3.579.2.593 1970 Unknown [id number] 2.16.84 0.1.077671.3.579.2.593 1970 Unknown [id number] 2.16.84 0.1.355566.3.579.2.593 1970 Unknown [id number] 2.16.84 0.1.589506.3.579.2.593 1970 Unknown [id number] 2.16.84 0.1.765278.3.579.2.593 1970 Unknown [id number] 2.16.84 0.1.663149.3.579.2.593 1970 Unknown [id number] 2.16.84 0.1.624783.3.579.2.593 1970 Unknown [id number] 2.16.84 0.1.557127.3.579.2.593 1970 Unknown [id number] 2.16.84 0.1.730334.3.579.2.593 1958 Self-pay [id number] Unknown Unknown [id number] 2.16.8 40.1.743239.3.579.2.531 Unknown [id number] 2.16.84 0.1.436678.3.579.2.593 Social History Date Type Detail Facility Daily caffeine consumption Daily caffeine consumption [facility] Work Phone: Comment on above: 3-4; quit 1 week ago; Start: 01-10-2022 Tobacco smoking stat [facility] Smoker (finding) [facility] Start: 1970 Sex Assigned At Female F [facility] Medical Equipment Procedure Code Equipment Code Equipment Origin al Text Equipment Identifier Dates Drug-eluting coronary artery stent, vzf-lcpssszgloaxm-ai lymer-coated ()[id number] FDA Start: 01-10-2022 Drug-eluting coronary artery stent, yzm-dhkuhfbibflev-wa lymer-coated ()[id number] FDA Start: 01-10-2022 Goals Date Patient Goal Desired Activity /State Functional Status Date Assessment Result Facility 01-20-2022 PHQ-9 [id number] Mild (5-9) -[facility] 250 DO Work Phone: 01-14-2022 Functional status Patient at Baseline [facility] Work Phone: 01-10-2022 Functional status Disability Sta tus Patient at Baseline [facility] Work Phone: Mental Status Date Assessment Result Facility 01-10-2022 Cognitive function Cognitive Sta tus Patient at Baseline [facility] Work Phone: Clinical Notes 01-10-2022 to 01-12-2024 [...] All other systems reviewed and are negative. [facility] 01-12-2024 Note UTP CARDIOLOGY PROGR ESS NOTE HPI: Javier Link is a 53 y.o. female here for routine 6 month f/u HPI Pleasant 53 yo female presents for routine F/U for chronic systolic heart failure, CAD, and LV thrombus. Patient presents today with noted weight loss since last visit that she has been doing purposefully. She continues with cardiac rehab exercise at [facility]. She denies chest pain, shortness of [...] 52-year-old woman. On 01/10/[address] [facility] with STEMI and was found to have [...] is enrolled in cardiac rehab at the [facility] and doing well with that. Anticoagulation clinic at the [facility] follows her warfarin levels. Testing: ECG [...] 28 mm skypoint, 2.5 x 18 mm Fulton. An intra-aortic balloon pump was placed. Visit [...] syncope and le (more content not included)... [facility] 01-12-2024 Note HTN is well-controll ed with current med regimen and renal function stable [facility] 01-12-2024 Note [facility] II-currently eu volemic without exacerbation, no activity limiting symptoms Continue GDMT-aspirin, Lipitor, Coreg, Jardiance, Entresto and Aldactone with Diuretic therapy of Lasix 40 mg daily Monitor daily weights, I&O, fluid restriction 1.5-2L/day, renal function and electrolytes- [facility] 01-12-2024 Note Coronary artery dise ase is unchanged. Continue current medications. Cardiac status will be reassessed in 6 months. Continue goal-directed medical therapy with aspirin, Lipitor, Plavix, Coreg [facility] 01-12-2024 Note Lipid abnormalities are unchanged, well controlled; PCP monitoring LFT. Pharmacotherapy as ordered. Lipids will be reassessed annually. [facility] 01-12-2024 Note No thrombus noted on last 2 TTE [facility] 07-31-2023 Note Subjective Javier Link is a [...] for 2023 because she is [facility]. Historical: Failed Class I topical [...] sun safety. Call for any acute issues. [facility] 06-28-2023 Note [place] [facility] Subjective Javier Link is a 53 [...] 52-year-old woman. On 01/10/[address] [facility] with STEMI and was found to have [...] is enrolled in cardiac rehab at the [facility] and doing well with that. Anticoagulation clinic at the [facility] follows her warfarin levels. Testing: ECG [...] 28 mm skypoint, 2.5 x 18 mm F[place]on. An intra-aortic balloon pump was placed. Visit [...] exertion NYHA class (more content not included)... [facility] 05-23-2023 Note Orthopedic Surgery Subjective Pain [...] History: Diagnosis Date CHF (congestive heart failure) ([facility]) Coronary artery disease Hyperlipidemia Hypertension Left ventricular thrombus NSTEMI (non-ST elevated myocardial infarction) ([facility]) Objective General: Body mass index is [...] finger: normal A1 steven and AROM Strength: display decorator 5/5, thumb 5/5, interossei 5/5 Sensation: intact [...] finger: normal A1 steven and AROM Strength: display decorator 5/5, thumb 5/5, interossei 5/5 Sensation: intact [...] to verify the correct patient, procedure, equipment, underwriting support manager and site/side marked as required. Patient was [...] right thumb C (more content not included)... [facility] 05-23-2023 Note Patient ID: Javier Link is [...] to verify the correct patient, procedure, equipment, underwriting support manager and site/side marked as required. [facility] 10-31-2022 Note CARDIAC STRESS TEST Requesting [...] CAD evaluation with invasive stress test. [facility] 01-13-2022 Progress note Note Date/Time January 13, 2022 3:15pm [facility] [address] [place], [place] [address] Cardiology Progress Note Signed Patient: Javier Link MR#: [id number] : 1970 Acct:[id number] Age/Sex: 51 / F Adm Date: 2 Loc: Room: [address] [place] [address] Type : ADM IN Attending Dr: Isidra [...] Acute Documented By: Isidra Garibay DO 01/13/22 1518 Signed By: <Electronically signed by Isidra Garibay DO> 01/13/22 5910 [facility] Work Phone: 1(274) 738-844506-01-2022 Progress note Author Isidra Garibay [facility] January 12, 2022 3:16pm Note Date/Time January 12, 2022 3:16p m [facility] [address] [place] [address] Cardiology Progress Note Signed Patient: Javier Link MR#: [id number] : 1970 Acct:[id number] Age/Sex: 51 / F Adm Date: 2 Loc: Room: [address] [place] [address] Type : ADM IN Attending Dr: Isidra [...] signed by Isidra Garibay DO> 01/12/22 1516 [facility] Work Phone: 1(722) 428-106605-31-2022 Progress note Author Isidra Garibay [facility] January 11, 2022 1:38pm Note Date/Time January 11, 2022 1:38p m [facility] [address] [place] [address] Cardiology Progress Note Signed Patient: Javier Link MR#: [id number] : 1970 Acct:[id number] Age/Sex: 51 / F Adm Date: 2 Loc: Room: [address] [place] [address] Type : ADM IN Attending Dr: Isidra [...] ALT Alkaline Phosphatase Troponin I High Sens 85208 H* Total Protein Albumin Globulin Albumin/Globulin Ratio [...] ALT Alkaline Phosphatase Troponin I High Sens 795101 H* Total Protein Albumin Globulin Albumin/Globulin Ratio Triglycerides Cholesterol LDL Cholesterol, Calc VLDL Cholesterol HDL Cholesterol Cholesterol/HDL Ratio 01/10/22 01/10/22 01/10/22 20:42 21:57 23:37 APTT PHA Creatinine Clear Sodium Potassium Chloride Carbon Dioxide BUN Creatinine Est GFR ( Amer) Est GFR (Non-Af Amer) Glucose POC Glucose 148 Calcium Magnesium Total Bilirubin AST ALT Alkaline Phosphatase Troponin I High Sens 404412 H* 532310 H* Total Protein Albumin Globulin Albumin/Globulin Ratio [...] Alkaline Phosphatase 85 Troponin I High Sens 63613 H* Total Protein 6.0 L Albumin 2.9 [...] <Electronically signed by Isidra Garibay DO> 01/11/22 [facility] Work Phone: 1(290) 845-690305-30-2022 History and physical note Author Isidra Garibay [facility] January 10, 2022 12:14pm Note Date/Time January 10, 2022 10:30 am [facility] [address] [place] [address] Cardiology H&P Signed Patient: Javier Link MR#: [id number] : 1970 Acct:[id number] Age/Sex: 51 / F Adm Date: 2 Loc: Room: Type: [facility] Attending Dr: Isidra Garibay DO Copies to: NON STAFF Isidra Garibay DO~ Date of Service: 01/10/2022 Cardiology HPI History of Present Illness Chief complaint: Inferolateral STEMI HPI: Ms. Link is a 51 year old female transferred from [place] emergency room this morning after receiving phone call from Dr. Katz and reviewing electronic transmitted media and discussion about the clinical case. Patient presented with severe chest discomfort with no prior history of cardiac illness or intervention. ECGs reveal sinus rhythm with inferolateral ST elevation injury current. She was admitted restarted upstream antiplatelet and Antithrombin therapy, and transferred to the Pathology Technologist emergently. Patient arrived at [place] ER at 0924, first ECG transmitted to ne was 0948, Pathology Technologist team was activated at 0952, patient was transferred by ground, arrived in Pathology Technologist at 1033 and underwent primary PCI at [...] ER staff, review of electronic transmitted media, Pathology Technologist staff, nursing staff and family both pre [...] changes or abnormalities: ST suggestive of injury VT, pacemaker, normal Myocardial infarction: inferior VT (acute or recent) and lateral VT (acute or recent) A&P - Cardiology (1) ST elevation myocardial infarction (STEMI) of inferolateral wall: Code(s): I21.19 - ST elevation (STEMI) myocardial infarction involving other coronary artery of inferior wall (2) Hyperlipidemia: Code(s): E78.5 - Hyperlipidemia, unspecified (3) Essential hypertension: Code(s): I10 - Essential (primary) hypertension Documented By: Isidra Garibay DO 01/10/22 1026 Signed By: <Electronically signed by Isidra Garibay DO> 01/10/22 1214 [facility] Work Phone: [phone]) 266-141305-30-2022 Procedure [facility]05-30-2022 [facility] Hospital[facility] complaint Narrative - Reported* 51-year-old female returns for transitional care management office visit following recent large anterior VT with associated cardiogenic shock and primary revascularization of the LAD, details of which are reviewed. She had intra-aortic balloon pump counterpulsation for 24 hours, subsequent diagnosis of LV thrombus with reduced LV function. She was transition to clopidogrel warfarin, aspirin triple therapy. She did have brief episodes of bobbi-VT/postoperative VT that stabilized on amiodarone andthen we [...] 12 weeks and myselfin approximately [address] Work Phone: Chief complaint Narrative - Reported* 51-year-old female returns for transitional care management office visit following recent large anterior VT with associated cardiogenic shock and primary revascularization of the LAD, details of which are reviewed. She had intra- aortic balloon pump counterpulsation for 24 hours, subsequent diagnosis of LV thrombus with reduced LV function. She was transition to clopidogrel warfarin, aspirin triple therapy. She did have brief episodes of bobbi-VT/postoperative VT that stabilized on amiodarone andthen we [...] 12 weeks and myselfin approximately 4 months [facility] Work Phone: Chief complaint Narrative - Reported* 51-year-old female returns for transitional care management office visit following recent large anterior VT with associated cardiogenic shock and primary revascularization of the LAD, details of which are reviewed. She had intra- aortic balloon pump counterpulsation for 24 hours, subsequent diagnosis of LV thrombus with reduced LV function. She was transition to clopidogrel warfarin, aspirin triple therapy. She did have brief episodes of bobbi-VT/postoperative VT that stabilized on amiodarone andthen we [...] 12 weeks and myselfin approximately 4 months [facility] Work Phone: Evaluation note* Diagnosis Onset Date Resolution Status Essential hypertension acute Hyperlipidemia acute Left ventricular thrombus ac southern ute ST elevation myocardial infa rction (STEMI) of inferolateral wall acute [facility] Work Phone: Hospital Discharge instructions Additional Instructions [facility] to manage your Coumadin dosing [...] doctor or pharmacist, without first calling the home health registered nurse who implanted the stent. If you require [...] weight lifting, stair steppers, etc. until the home health registered nurse approves these activities. Check with the home health registered nurse on your first follow-up visit. CALL YOUR PHYSICIAN at [phone]: -If bleeding should occur from the catheter insertion site- apply pressure to the site then immediately call us. -Report any fever, redness, drainage, increased swelling, or firmness at the catheter insertion site. Some bruising or slight swelling may be present at the time of discharge. -Should arm or leg become cold, numb, white, or blue, contact the home health registered nurse immediately. -IF you should experience episodes of [...] is recommended. Please call Central Scheduling at [phone] to schedule your appointment.] The attending home health registered nurse or [facility] nurse clinician should provide you with specific instructions regarding activity, diet, medications, and further follow up for you. Follow the medication instructions provided on your discharge. If the dosages and instructions on this sheet differ from the dosage and instructions on the bottle, follow the instructions on the bottle. [facility] is not responsible for incorrect prescription information provided by the patient during their visit. Do not stop your medications without consulting your health care provider. Please take the list with you to your next doctor's appointment.[facility] Work Phone: Summary Purpose Family History [...] and content) DATE CREATED AUTHOR 09/11/2021 [facility] DATE CREATED AUTHOR AUTHOR'S ORGANIZ ATION 03/09/2022 [facility] DATE CREATED AUTHOR AUTHOR'S ORGANIZ ATION 09/17/2022 [facility] DATE CREATED AUTHOR AUTHOR'S ORGANIZ ATION 12/25/2022 [facility] DATE CREATED AUTHOR AUTHOR'S ORGANIZ ATION 05/02/2024 [facility] Care Teams (unrecognized sec tion and [...] BE BASED ON THE PRIMARY CLINICAL RECORDS. [facility] [employer] [facility]. provides no warranty or guarantee of the accuracy or completeness of information in this document.
[2024-05-04] MEDS: OMEPRAZOLE 40 MG CAPSULE.DR PO (21:16)
[2024-05-04] MEDS: BUDESONIDE 0.5 MG/2 ML AMPULE NEB IH (22:14)
--- NOTE | 2024-05-05 01:10 | PC.NURSE ---
Pt did not want 2300 labs drawn. Stated she would rather wait until the morning labs as she did not feel the sodium would change .
[2024-05-05] MEDS: LEVOTHYROXINE SODIUM 125 MCG TABLET PO (05:35)
[2024-05-05 05:39] VITALS: BP 98/56; PULSE 68; TEMP 36.4; O2SAT 93
[2024-05-05 06:50] LABS: Hematocrit 35.4 % (36.0-48.0); Hemoglobin 12.3 g/dL (12.0-16.0); Mean Corpuscular HGB Conc 34.7 g/dL (29.9-35.2); Mean Corpuscular Hemoglobin 32.7 pg (26.7-34.0); Mean Corpuscular Volume 94.1 fL (81.0-99.0); Mean Platelet Volume 10.1 fL (9.5-13.5); Platelet Count 199 10^3/uL (150-450); Red Blood Count 3.76 10^6/uL (4.20-5.40); Red Cell Distribution Width 12.4 % (11.0-15.0); White Blood Count 7.4 10^3/uL (4.0-11.0)
[2024-05-05 07:09] LABS: Anion Gap 11.9; BUN Creatinine Ratio 10.3; Calcium 9.1 mg/dL (8.5-10.1); Carbon Dioxide 24.2 mmol/L (21.0-32.0); Chloride 102 mmol/L (98-107); Estimated GFR (African America >60 (>=60); Estimated GFR (Non-African Ame >60 (>=60); Glucose 90 mg/dL (74-106); Potassium 4.1 mmol/L (3.5-5.1); Sodium 134 mmol/L (136-145)
[2024-05-05 07:50] VITALS: BP 84/56; BP 93/64
[2024-05-05] MEDS: CLOPIDOGREL BISULFATE 75 MG TABLET PO (08:33)
[2024-05-05] MEDS: OMEPRAZOLE 40 MG CAPSULE.DR PO ×2 (08:33→21:37)
[2024-05-05] MEDS: 0.9 % SODIUM CHLORIDE 500 ML IV (09:09)
[2024-05-05] MEDS: ENOXAPARIN SODIUM 40 MG/0.4 ML SYRINGE SUBQ (09:09)
[2024-05-05] MEDS: POTASSIUM CHLORIDE 10 MEQ ER TABLET PO (09:10)
[2024-05-05] MEDS: DULOXETINE HCL 30 MG CAPSULE.DR PO ×2 (09:10→21:37)
[2024-05-05] MEDS: BUSPIRONE HCL 15 MG TABLET PO ×2 (09:10→21:37)
[2024-05-05] MEDS: BUPROPION HCL 150 MG XL TABLET 24H 300 MG PO (09:10)
[2024-05-05] MEDS: CANAGLIFLOZIN 100 MG TABLET PO (09:10)
[2024-05-05] MEDS: BUDESONIDE 0.5 MG/2 ML AMPULE NEB IH ×2 (09:53→20:07)
--- NOTE | 2024-05-05 10:00 | XR_ITS ---
The [address] [address] Patient Name: JAVIER LINK MRN: [id number] date: 1970 Sex: F Assigned Patient Location: MS Current Patient Location: Accession/Order Number: [id number] Exam Date: 05/05/2024 10:25 Report Date: 05/05/2024 11:07 At the request of: SHAIKH JAVIER Procedure: XR chest 1V EXAM: XR chest 1V HISTORY: SOB/cough COMPARISON: None. TECHNIQUE: Chest X-ray AP, 1 view FINDINGS: Support devices: Dual lead pacer device appears appropriately positioned. Lungs/pleura: No consolidation, effusion, or pneumothorax. Heart and mediastinum: Normal contours. Bones: No acute abnormality identified. XR/XR chest 1V Impression: No radiographic evidence of acute cardiopulmonary process. Electronically authenticated by: ZULY MORRISON Date: 05/05/2024 11:07
[2024-05-05] MEDS: 0.9 % SODIUM CHLORIDE 1,000 ML 125 ML IV ×2 (10:14→17:52)
[2024-05-05 10:17] VITALS: BP 95/64
[2024-05-05] MEDS: CEFTRIAXONE 1,000 MG in 0.9 % SODIUM CHLORIDE 50 ML 100 MG IV (11:19)
[2024-05-05 11:40] LABS: Anion Gap 10.3; BUN Creatinine Ratio 9.3; Calcium 8.4 mg/dL (8.5-10.1); Carbon Dioxide 24.9 mmol/L (21.0-32.0); Chloride 102 mmol/L (98-107); Estimated GFR (African America >60 (>=60); Estimated GFR (Non-African Ame >60 (>=60); Glucose 108 mg/dL (74-106); Potassium 4.2 mmol/L (3.5-5.1); Sodium 133 mmol/L (136-145)
--- NOTE | 2024-05-05 12:33 | PM.HP ---
HPI H&P: HPI History of Present Illness Chief complaint: ILL, ABNORMAL LABS, LOW BP, DIZZY HYPONATREMIA Narrative: 54 y o female reports presented to ED with generalized weakness, lightheadedness and persistent nausea/poor PO intake for past 4-5 days. She had labs performed as outpatient recently and was told by her PCP that she should seek care in ED if her symptoms persisted over weekend. She denies cough, SOB, palpitations. She also denies abdominal pain, constipation/diarrhea but is feeling nauseous. She denies diarrhea and had minimal vomiting (1-2 episodes in past 3 days). She reports low BP at home with SBP as low as 80 and feels lightheaded and weak. Upon arrival in ER, she was found to have severe hyponatremia with serum sodium of 123 after initial bolus of 1 L normal saline, she was admitted for overnight observation. Nighttime hospitalist started patient on fluid restriction but according to my evaluation, she has hypovolemic hyponatremia and will require IV fluid resuscitation. Her urine osmolarity has not resulted but her urine sodium is low, also indicated for hypovolemic hyponatremia. She also had acute kidney injury upon admission with serum creatinine of 1.4. She has normal renal function at baseline. Earlier this morning, patient was hypotensive systolic blood pressure as low as 84 and required IV fluid bolus. Her blood pressure has improved a little but her systolic blood pressure is still below 100 while her antihypertensive medications are on hold. Patient herself feels weak, lightheaded. She is still complaining of nausea and poor appetite. She has no other symptoms to offer. Workup in ER was also concerning for UTI but patient herself denies urinary symptoms. I ordered a chest x-ray to rule out pneumonia and there was no evidence of pneumonia on chest x-ray. Patient was initially admitted in observation status but was subsequently changed to inpatient because of worsening clinical symptoms/symptomatic hypotension requiring fluid boluses. Due to her history of congestive heart failure we are careful with fluid resuscitation due to risk of volume overload with aggressive IV hydration. Opioid HPI Opioid Management Most Recent Pain and Opioid Data: Last Pain Assessment 05/05/24 12:40 Last ORT Total Score 4 05/04/24 20:25 Last ORT Risk Category Moderate Risk 05/04/24 20:25 Review of Systems ROS Status of ROS 10 or more systems reviewed and unremarkable except as noted in history and below PFSH PFSH Medical History (Updated 05/05/24 @ 12:56 by Shaikh Katarzyna MD) Mild persistent asthma ?J45.30 - Mild persistent asthma, uncomplicated (ICD-10) Major depression ?F32.9 - Major depressive disorder, single episode, unspecified (ICD-10) HLD (hyperlipidemia) ?E78.5 - Hyperlipidemia, unspecified (ICD-10) Type 2 diabetes mellitus ?E11.9 - Type 2 diabetes mellitus without complications (ICD-10) Hypothyroidism ?E03.9 - Hypothyroidism, unspecified (ICD-10) (HFpEF) heart failure with preserved ejection fraction ?I50.30 - Unspecified diastolic (congestive) heart failure (ICD-10) CAD (coronary artery disease) ?I25.10 - Atherosclerotic heart disease of [place] coronary artery without angina pectoris (ICD-10) 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 ?M93.1 - [place]'s disease of adults (ICD-10) FH: total knee replacement ?Z82.69 - Family history of other diseases of the musculoskeletal system and connective tissue (ICD-10) Cardiac defibrillator in place ?Z95.810 - Presence of automatic (implantable) cardiac defibrillator (ICD-10) Depression ?F32.A - Depression, unspecified (ICD-10) Thyroid disease ?E07.9 - Disorder of thyroid, unspecified (ICD-10) History of heart attack ?I25.2 - Old myocardial infarction (ICD-10) Surgical History (Updated 05/04/24 @ 20:20 by Sweta Treviño) History of endometrial ablation ?Z98.890 - Other specified postprocedural states (ICD-10) Family History (Updated 05/04/24 @ 20:21 by Sweta Treviño) Other Family history of CHF (congestive heart failure) Family history of COPD (chronic obstructive pulmonary disease) Family history of cancer Family history of diabetes mellitus Family history of hypertension Family history of myocardial infarction Social History (Updated 05/04/24 @ 20:22 by Sweta Treviño) Within the past year, how often did you have a drink containing alcohol: monthly or less Within the past year, how many standard drinks containing alcohol did you have on a typical day: 1 or 2 Within the past year, how often did you have six or more drinks on one occasion: never Total score: 0 Score interpretation: A score less than 3 is consistent with normal alcohol consumption. Smoking status: Former smoker Non-prescribed substance use: denies use Previous occupational history: unemployed Highest level of school completed/degree received: high school graduate Are you now , , , , never or living with a partner: In a typical week, how many times do you talk on the telephone with family, friends, or neighbors: 3 or more times per week How often do you get together with friends or relatives: 3 or more times per week Little interest or pleasure in doing things: not at all Feeling down, depressed, or hopeless: several days Feel stressed/tense/nervous/anxious/difficulty sleeping: not at all Do you think of yourself as: straight/heterosexual Gender Identity: female Meds Home Medications and Allergies Home Medications ?Medication ?Instructions ?Recorded ?Confirmed ?Type atorvastatin 80 mg tablet 80 mg PO DAILY 05/04/24 05/04/24 History bupropion HCl 300 mg 24 hr tablet, 300 mg PO DAILY 05/04/24 05/04/24 History extended release buspirone 15 mg tablet 15 mg PO BID 05/04/24 05/04/24 History carvedilol 12.5 mg tablet 12.5 mg PO Q12H 05/04/24 05/04/24 History clopidogrel 75 mg tablet 75 mg PO DAILY 05/04/24 05/04/24 History duloxetine 30 mg capsule,delayed 30 mg PO BID 05/04/24 05/04/24 History release (Cymbalta) empagliflozin 10 mg tablet 10 mg PO DAILY 05/04/24 05/04/24 History (Jardiance) fluticasone furoate 100 1 inh inhalation Q24H 05/04/24 05/04/24 History mcg/actuation blister powder for inhalation (Arnuity Ellipta) furosemide 40 mg tablet 40 mg PO DAILY 05/04/24 05/04/24 History levothyroxine 125 mcg tablet 125 mcg PO DAILY 05/04/24 05/04/24 History pantoprazole 40 mg tablet,delayed 40 mg PO Q12H 05/04/24 05/04/24 History release potassium chloride 10 mEq 10 meq PO DAILY 05/04/24 05/04/24 History tablet,extended release(part/cryst) semaglutide 2 mg/dose (8 mg/3 mL) 2 mg subcut QWEEK 05/04/24 05/04/24 History subcutaneous pen injector (Ozempic) spironolactone 25 mg tablet 25 mg PO DAILY 05/04/24 05/04/24 History Allergies Allergy/AdvReac Type Severity Reaction Status Date / Time avalox Allergy hives Uncoded 05/04/24 16:51 Exam Constitutional Vital Signs, click to edit/add: Last Vital Signs Temp 97.6 F 05/05/24 05:39 Pulse 68 05/05/24 05:39 Resp 16 05/05/24 05:39 BP 95/64 05/05/24 10:17 Pulse Ox 93 L 05/05/24 05:39 O2 Del Method Room Air 05/05/24 05:39 General appearance: cooperative, comfortable, ill appearing and frail appearing HENAZ Common normals: normocephalic and head/scalp atraumatic Respiratory Common normals: normal respiratory effort and no use of accessory muscles Effort & inspection: able to speak in complete sentences Other: Coarse breath sounds. Cardio Common normals: no JVD, regular rate, regular rhythm, S1 normal heart sound and S2 normal heart sound GI Common normals: Normal to inspection, nondistended, normoactive bowel sounds present, soft to palpation, non-tender and no hepatosplenomegaly Extremity Common normals: normal to inspection and full ROM Neuro Common normals: oriented x3, moves all extremities, no focal motor deficits and no sensory deficits noted Psych Common normals: mental status grossly normal, thought process normal, denies homicidal ideation and denies suicidal ideation Results Labs Labs: Short CBC 05/04/24 05/05/24 Range/Units 17:10 06:37 WBC 9.7 7.4 (4.0-11.0) 10^3/uL Hgb 12.7 12.3 (12.0-16.0) g/dL Hct 36.7 35.4 L (36.0-48.0) % Plt Count 195 199 (150-450) 10^3/uL BMP 05/04/24 05/05/24 05/05/24 17:10 06:37 11:16 Sodium 123 L* 134 L 133 L Potassium 4.0 4.1 4.2 Chloride 90 L 102 102 Carbon Dioxide 26.1 24.2 24.9 BUN 15.0 10.0 9.0 Creatinine 1.41 H 0.97 0.97 Glucose 83 90 108 H Calcium 8.6 9.1 8.4 L Urine 05/04/24 Range/Units 18:22 Urine Color Lt. yellow (YELLOW) Urine Clarity Clear (CLEAR) Urine pH 6.0 (5.0-9.0) Ur Specific [place] <=1.005 A (1.005-1.025) Urine Protein Negative (NEG/TRACE) mg/dL Urine Glucose (UA) 500 A (NEGATIVE) mg/dL Assessment and Plan Assessment and Plan (1) Hypotension due to hypovolemia: Assessment and Plan: Symptomatic hypotension secondary to hypovolemia, requiring IV fluid boluses. Closely monitor blood pressure and replace volume with IV fluid with close monitoring of volume status to avoid risk of volume overload because of prior history of congestive heart failure. Monitor blood pressure, urine output closely. (2) Hyponatremia: Assessment and Plan: Presented with serum sodium of 123. More or less normal on morning labs. Serum sodium was too rapidly corrected but fortunately patient has no neurological signs and symptoms. Based on urine studies, hyponatremia was likely secondary to hypovolemia. Patient is on IV fluids. No need for fluid restrictions. (3) BRIAN (acute kidney injury): Assessment and Plan: Creatinine of 1.4. Patient has normal renal function at baseline. Overnight IV hydration, her renal function is back to its baseline. (4) UTI (urinary tract infection): Assessment and Plan: She does not have any urinary symptoms, her urinalysis is abnormal. There is no clear etiology for her nausea, vomiting and poor appetite except for possible urinary tract infection. Started patient on IV Rocephin. Follow-up urine culture. Qualifiers: Urinary tract infection type: acute cystitis Hematuria presence: without hematuria Qualified Code(s): N30.00 - Acute cystitis without hematuria (5) Nausea & vomiting: Assessment and Plan: Persistent nausea with poor appetite and oral intake. She had few episodes of vomiting at home. Continue with Zofran as needed. Continue with IV fluids for dehydration. Possibly secondary to UTI for which she is being treated with IV Rocephin. Her symptoms could be secondary to bacterial/viral gastroenteritis. Her abdominal exam is benign with no tenderness. If symptoms persist, will consider CT abdomen pelvis. Qualifiers: Vomiting type: unspecified Qualified Code(s): R11.2 - Nausea with vomiting, unspecified (6) Anorexia: Assessment and Plan: Likely due to UTI and/or gastroenteritis. Her abdominal exam is benign with no tenderness on exam. If her symptoms persist, will consider CT abdomen pelvis (7) Abnormal thyroid blood test: Assessment and Plan: Abnormally low TSH discordance in T3 and T4 levels. Recheck thyroid function test with morning labs. (8) HTN (hypertension): Assessment and Plan: At home, patient uses Coreg, spironolactone and Lasix for hypertension and heart failure with preserved ejection fraction. Oral antihypertensives are on hold due to hypovolemia/hypotension. Monitor blood pressure closely and resume medications once blood pressure is stable Qualifiers: Hypertension type: primary hypertension Qualified Code(s): I10 - Essential (primary) hypertension (9) CAD (coronary artery disease): Assessment and Plan: No evidence of active cardiac ischemia. Continue with Plavix and statin. Qualifiers: Coronary Disease-Associated Artery/Lesion type: [place] artery [place] vs. transplanted heart: [place] heart Associated angina: without angina Qualified Code(s): I25.10 - Atherosclerotic heart disease of [place] coronary artery without angina pectoris (10) (HFpEF) heart failure with preserved ejection fraction: Assessment and Plan: Presents with hypovolemia and hypotension. All antihypertensives are on hold. On IV fluids. Monitor volume status closely to avoid risk of volume overload While her BNP is elevated, she appears to be hypovolemic based on exam Qualifiers: Heart failure chronicity: chronic Qualified Code(s): I50.32 - Chronic diastolic (congestive) heart failure (11) Type 2 diabetes mellitus: Assessment and Plan: Continue with sliding scale insulin. Hold Jardiance and Ozempic Qualifiers: Diabetes mellitus middle or intermediate school principal insulin use: without middle or intermediate school principal use Diabetes mellitus complication status: without complication Qualified Code(s): E11.9 - Type 2 diabetes mellitus without complications (12) Mild persistent asthma: Assessment and Plan: hx of mild persistent asthma. Stable. no wheezing. Duonebs as needed Qualifiers: Asthma complication type: uncomplicated Qualified Code(s): J45.30 - Mild persistent asthma, uncomplicated (13) Major depression: Assessment and Plan: Mood is stable. Home medications. Qualifiers: Major depression recurrence: recurrent Active/Remission status: in full remission Qualified Code(s): F33.42 - Major depressive disorder, recurrent, in full remission (14) HLD (hyperlipidemia): Assessment and Plan: Continue with statin Qualifiers: Hyperlipidemia type: unspecified Qualified Code(s): E78.5 - Hyperlipidemia, unspecified
[2024-05-05 13:48] VITALS: BP 96/64; PULSE 68; TEMP 36.6; O2SAT 97
[2024-05-05 20:07] VITALS: PULSE 69; O2SAT 95
[2024-05-05 20:30] VITALS: BP 95/66; PULSE 69; TEMP 36.7; O2SAT 93
[2024-05-05] MEDS: ATORVASTATIN CALCIUM 40 MG TABLET 80 MG PO (21:37)
[2024-05-06] MEDS: 0.9 % SODIUM CHLORIDE 1,000 ML 125 ML IV (01:35)
[2024-05-06 05:02] VITALS: BP 95/64; PULSE 75; TEMP 36.7; O2SAT 92
[2024-05-06] MEDS: LEVOTHYROXINE SODIUM 125 MCG TABLET PO (05:42)
[2024-05-06 06:40] LABS: Basophils Absolute Auto 0.1 10^3/uL (0.0-0.1); Basophils Percent Auto 0.6 % (0.2-2.0); Eosinophils Absolute Auto 0.2 10^3/uL (0.0-0.7); Hemoglobin 11.2 g/dL (12.0-16.0); Immature Granulocytes Abs Auto 0.02 10^3/uL (0.00-0.03); Immature Granulocytes Pct Auto 0.2 % (0.0-0.5); Lymphocytes Percent Auto 23.4 % (20.5-60.0); Mean Corpuscular HGB Conc 32.9 g/dL (29.9-35.2); Mean Corpuscular Hemoglobin 32.2 pg (26.7-34.0); Mean Corpuscular Volume 97.7 fL (81.0-99.0); Monocytes Absolute Auto 0.7 10^3/uL (0.3-0.8); Monocytes Percent Auto 8.2 % (1.7-12.0); Neutrophils Absolute Auto 5.6 10^3/uL (1.4-6.5); Neutrophils Percent Auto 65.6 % (43.0-75.0); Platelet Count 230 10^3/uL (150-450); Red Blood Count 3.48 10^6/uL (4.20-5.40); Red Cell Distribution Width 12.7 % (11.0-15.0); White Blood Count 8.5 10^3/uL (4.0-11.0)
[2024-05-06 07:08] LABS: TSH W/ REFLEX FT4 0.021 uIU/mL (0.358-3.740)
[2024-05-06 07:12] LABS: Alanine Aminotransferase 22 U/L (14-59); Albumin Globulin Ratio 0.7; Albumin Level 2.3 g/dL (3.4-5.0); Alkaline Phosphatase 91 U/L (46-116); Anion Gap 12.5; Aspartate Amino Transferase 16 U/L (15-37); BUN Creatinine Ratio 6.5; Bilirubin Total 0.3 mg/dL (0.2-1.0); Calcium 8.3 mg/dL (8.5-10.1); Chloride 106 mmol/L (98-107); Estimated GFR (African America >60 (>=60); Estimated GFR (Non-African Ame >60 (>=60); Globulin 3.4 g/dL; Potassium 4.1 mmol/L (3.5-5.1); Sodium 136 mmol/L (136-145); Total Protein 5.7 g/dL (6.4-8.2)
[2024-05-06 07:55] LABS: Carbon Dioxide 21.6 mmol/L (21.0-32.0); Glucose 99 mg/dL (74-106)
--- NOTE | 2024-05-06 07:56 | PM.DS1 ---
DS: Providers Provider Date of admission: 05/05/24 10:01 Primary care physician: NIKKI KELLOGG DS: Diagnosis Discharge Diagnosis (1) Hypotension due to hypovolemia: (2) Hyponatremia: (3) BRIAN (acute kidney injury): (4) UTI (urinary tract infection): Qualifiers: Hematuria presence: without hematuria Urinary tract infection type: acute cystitis Qualified Code(s): N30.00 - Acute cystitis without hematuria (5) Nausea & vomiting: Qualifiers: Vomiting type: unspecified Qualified Code(s): R11.2 - Nausea with vomiting, unspecified (6) Anorexia: (7) Abnormal thyroid blood test: (8) HTN (hypertension): Qualifiers: Hypertension type: primary hypertension Qualified Code(s): I10 - Essential (primary) hypertension (9) CAD (coronary artery disease): Qualifiers: Associated angina: without angina Coronary Disease-Associated Artery/Lesion type: [place] artery [place] vs. 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: without penitentiary use Qualified Code(s): E11.9 - Type 2 diabetes mellitus without complications (12) Mild persistent asthma: Qualifiers: Asthma complication type: uncomplicated Qualified Code(s): J45.30 - Mild persistent asthma, uncomplicated (13) Major depression: Qualifiers: Active/Remission status: in full remission Major depression recurrence: recurrent Qualified Code(s): F33.42 - Major depressive disorder, recurrent, in full remission (14) HLD (hyperlipidemia): Qualifiers: Hyperlipidemia type: unspecified Qualified Code(s): E78.5 - Hyperlipidemia, unspecified DS: Summary Hospital Course Hospital Course: Patient was evaluated in the outpatient setting for increasing weakness. Her symptoms became worse and was recommended she present to the emergency room over the weekend for more in timely workup. In ER found to have significant hyponatremia with sodium less than 125. Acute renal failure with baseline creatinine 0.94, admission creatinine of 1.41 which is 150% above baseline. She was given IV fluids overnight. Yesterday she still has significant weakness with ambulation. Her hyponatremia is improved and her creatinine and it was improved as well but not quite back to baseline. She was maintained 1 more day of IV fluids. She does feel better today. Her sodium is improved today. Her only concern is her hemoglobin is down but is likely delusional. At this point she feels comfortable with going home and continuing with workup as an outpatient. At this point we will cut back on her blood pressure medications and her diuretics. My suspicion is her heart failure is improved to the point that she will require less medication. Medications see list. Follow-up with her PCP this week. Status at Discharge Overall status at discharge: patient is not back to baseline Time Spent with Patient Time attestation: Total time spent providing and/or coordinating discharge services: Time spent: greater than 30 minutes Exam Constitutional Vital Signs, click to edit/add: Last Vital Signs Temp 98.0 F 05/06/24 05:02 Pulse 75 05/06/24 05:02 Resp 18 05/06/24 05:02 BP 95/64 05/06/24 05:02 Pulse Ox 92 L 05/06/24 05:02 O2 Del Method Room Air 05/06/24 05:02 Documenting provider has reviewed patient's vital signs: yes Common normals: no apparent distress Chest Common normals: inspection of chest normal Respiratory Common normals: normal respiratory effort and no retractions Cardio Common normals: regular rate and regular rhythm GI Common normals: Normal to inspection, nondistended, normoactive bowel sounds present Neuro Common normals: oriented x3, CN's II-XII intact bilaterally and moves all extremities DS: Data Data Completed and Pending Labs on day of discharge: Labs from last 24 hours 05/06/24 05/05/24 06:13 11:16 WBC 8.5 RBC 3.48 L Hgb 11.2 L Hct 34.0 L MCV 97.7 MCH 32.2 MCHC 32.9 RDW 12.7 Plt Count 230 MPV 10.0 Neut % (Auto) 65.6 Lymph % (Auto) 23.4 Bryan % (Auto) 8.2 Eos % (Auto) 2.0 Baso % (Auto) 0.6 Neut # (Auto) 5.6 Lymph # (Auto) 2.0 Bryan # (Auto) 0.7 Eos # (Auto) 0.2 Baso # (Auto) 0.1 Abs Immat Gran (auto) 0.02 Imm/Tot Granulo (auto) 0.2 Sodium 133 L Potassium 4.2 Chloride 102 Carbon Dioxide 24.9 Anion Gap 10.3 BUN 9.0 Creatinine 0.97 Est GFR ( Amer) >60 Est GFR (Non-Af Amer) >60 BUN/Creatinine Ratio 9.3 Glucose 108 H Calcium 8.4 L Discharge Plan Discharge Disposition: Home, Self-Care Condition: Fair Discharge Medications: New cefdinir 300 mg capsule 600 mg PO DAILY Qty: 14 0RF Continued atorvastatin 80 mg tablet 80 mg PO DAILY bupropion HCl 300 mg tablet extended release 24 hr 300 mg PO DAILY clopidogrel 75 mg tablet 75 mg PO DAILY Arnuity Ellipta 100 mcg/actuation blister with device 1 inh INHALATION Q24H levothyroxine 125 mcg tablet 125 mcg PO DAILY pantoprazole 40 mg tablet,delayed release (DR/EC) 40 mg PO Q12H potassium chloride 10 mEq tablet,ER particles/crystals 10 meq PO DAILY Ozempic 2 mg/dose (8 mg/3 mL) pen injector 2 mg subcut QWEEK Jardiance 10 mg tablet 10 mg PO DAILY duloxetine [Cymbalta] 30 mg capsule,delayed release(DR/EC) 30 mg PO BID Patient Comments: 40mg buspirone 15 mg tablet 15 mg PO BID Changed furosemide 40 mg tablet 20 mg PO DAILY Qty: 0 0RF carvedilol 12.5 mg tablet 6.25 mg PO Q12H Qty: 0 0RF Discontinued spironolactone 25 mg tablet 25 mg PO DAILY Print Language: Kiswahili Forms: Portal Instructions Follow Up Appointments: @ 10:30am with Nikki Kellogg NP [phone]
[2024-05-06 07:59] VITALS: BP 103/68; PULSE 75; TEMP 36.7; O2SAT 95
[2024-05-06] MEDS: BUDESONIDE 0.5 MG/2 ML AMPULE NEB IH (08:15)
[2024-05-06 08:45] LABS: Free T4 1.34 ng/dL (0.76-1.46)
[2024-05-06] MEDS: OMEPRAZOLE 40 MG CAPSULE.DR PO (09:26)
[2024-05-06] MEDS: CLOPIDOGREL BISULFATE 75 MG TABLET PO (09:26)
[2024-05-06] MEDS: DULOXETINE HCL 30 MG CAPSULE.DR PO (09:26)
[2024-05-06] MEDS: BUPROPION HCL 150 MG XL TABLET 24H 300 MG PO (09:26)
[2024-05-06] MEDS: POTASSIUM CHLORIDE 10 MEQ ER TABLET PO (09:26)
[2024-05-06] MEDS: CANAGLIFLOZIN 100 MG TABLET PO (09:26)
[2024-05-06] MEDS: BUSPIRONE HCL 15 MG TABLET PO (09:26)
[2024-05-06] MEDS: ENOXAPARIN SODIUM 40 MG/0.4 ML SYRINGE SUBQ (09:26)
--- NOTE | 2024-05-06 09:33 | SWNOTE1 ---
SW met with pt to discuss dc needs. Pt lives at home with her . Pt is independent with all ADL's. Pt voices no discharge needs at this time. SW to follow as needed. Important Message from [employer] reviewed and discussed with patient. Pt. verbalized understanding and signed the form. Original given to patient and copy placed in patient?s chart.
--- NOTE | 2024-05-08 13:28 | CM.DCFOLLOWU ---
Person spoke with:patient How are you feeling?well How is your pain?none Did you understand your discharge instructions? yes Do you have any questions about your discharge instructions?no Were you given any prescriptions at discharge? yes Were you able to get your prescriptions filled?yes Do you understand how to take your medications as ordered?yes Do you have any questions about your follow up appointment and do you plan to keep your follow up appointment?no questions, pt had follow up already Is there anything else that you would like to discuss?no Questions/Comments/Concerns/Other: no
[2024-05-09 07:09] LABS: Osmolality, Urine 111 mOsmol/kg (.)
== END 2024-05-06 09:53 | disposition home or self-care (01) | DRG 641 ==
LOC: ER 18:11 → MS 20:15
PROVIDERS: Internal Medicine; Registered Nurse; Admitting Provider Family Medicine; Emergency Provider Emergency Medicine; PCP Nurse Practitioner Family; Visit Provider Family Medicine
DX: E87.1 Hypo-osmolality and hyponatremia (principal); N17.9 Acute kidney failure, unspecified; N30.00 Acute cystitis without hematuria; I50.32 Chronic diastolic (congestive) heart failure; E86.1 Hypovolemia; I95.9 Hypotension, unspecified; R11.2 Nausea with vomiting, unspecified; R63.0 Anorexia; R94.6 Abnormal results of thyroid function studies; I25.10 Atherosclerotic heart disease of native coronary artery without angina pectoris; I11.0 Hypertensive heart disease with heart failure; E11.9 Type 2 diabetes mellitus without complications; J45.30 Mild persistent asthma, uncomplicated; F33.42 Major depressive disorder, recurrent, in full remission; E78.5 Hyperlipidemia, unspecified; Z68.32 Body mass index [BMI] 32.0-32.9, adult; E03.9 Hypothyroidism, unspecified; B96.5 Pseudomonas (aeruginosa) (mallei) (pseudomallei) as the cause of diseases classified elsewhere; Z95.810 Presence of automatic (implantable) cardiac defibrillator; I25.2 Old myocardial infarction; Z98.890 Other specified postprocedural states; Z87.891 Personal history of nicotine dependence; Z79.899 Other long term (current) drug therapy; Z79.890 Hormone replacement therapy; Z00.00 Encounter for general adult medical examination without abnormal findings
CPT/HCPCS: 36415; 71045; 80048; 80053; 80061; 81001; 83036; 83525; 83880; 83935; 84300; 84436; 84439; 84443; 84481; 85025; 85027; 87086; 87150; 87186; 93005; 94640; 96361; 96365; 96372; 96375; 99285; G0378; J0696; J1650; J2405

== ENCOUNTER 2024-05-13 09:52 | Outpatient (OUT) | payer MEDICARE, SELFPAY ==
[2024-05-13 10:10] LABS: Basophils Absolute Auto 0.1 10^3/uL (0.0-0.1); Basophils Percent Auto 0.9 % (0.2-2.0); Eosinophils Absolute Auto 0.1 10^3/uL (0.0-0.7); Eosinophils Percent Auto 1.1 % (0.9-7.0); Hematocrit 41.9 % (36.0-48.0); Hemoglobin 13.8 g/dL (12.0-16.0); Immature Granulocytes Abs Auto 0.02 10^3/uL (0.00-0.03); Immature Granulocytes Pct Auto 0.2 % (0.0-0.5); Lymphocytes Absolute Auto 2.5 10^3/uL (1.2-3.8); Lymphocytes Percent Auto 26.8 % (20.5-60.0); Mean Corpuscular HGB Conc 32.9 g/dL (29.9-35.2); Mean Corpuscular Hemoglobin 32.2 pg (26.7-34.0); Mean Corpuscular Volume 97.7 fL (81.0-99.0); Mean Platelet Volume 9.3 fL (9.5-13.5); Monocytes Absolute Auto 0.7 10^3/uL (0.3-0.8); Monocytes Percent Auto 7.9 % (1.7-12.0); Neutrophils Absolute Auto 5.9 10^3/uL (1.4-6.5); Neutrophils Percent Auto 63.1 % (43.0-75.0); Platelet Count 384 10^3/uL (150-450); Red Blood Count 4.29 10^6/uL (4.20-5.40); Red Cell Distribution Width 13.1 % (11.0-15.0); White Blood Count 9.3 10^3/uL (4.0-11.0)
[2024-05-13 10:34] LABS: Bilirubin Urine NEGATIVE (NEGATIVE); Blood Urine NEGATIVE (NEGATIVE); Clarity Urine CLEAR (CLEAR); Color Urine LT. YELLOW (YELLOW); Glucose Urine UA 500 mg/dL (NEGATIVE); Ketones Urine NEGATIVE (NEGATIVE); Leukocyte Esterase Urine NEGATIVE (NEGATIVE); Nitrite Urine NEGATIVE (NEGATIVE); Protein Urine NEGATIVE (NEG/TRACE); Specific Gravity Urine <=1.005 (1.005-1.025); Urobilinogen Urine 0.2 EU/dL (0.2-1.0); pH Urine 6.5 (5.0-9.0)
[2024-05-13 10:48] LABS: Bacteria Urine TRACE #/HPF (NONE SEEN); Cast Seen? NONE SEEN #/LPF (NONE SEEN); Crystals Seen? None Seen #/HPF (None Seen); Mucus Urine NONE SEEN (NONE SEEN); RBC Urine 0-2 #/HPF (0-2); Squamous Epithelial Cell Urine RARE #/LPF (NONE/RARE); WBC Urine 0-2 #/HPF (NONE SEEN)
[2024-05-13 11:00] LABS: Alanine Aminotransferase 27 U/L (14-59); Albumin Globulin Ratio 0.9; Albumin Level 3.4 g/dL (3.4-5.0); Alkaline Phosphatase 123 U/L (46-116); Anion Gap 11.6; Aspartate Amino Transferase 18 U/L (15-37); BUN Creatinine Ratio 6.6; Bilirubin Total 0.6 mg/dL (0.2-1.0); Calcium 9.3 mg/dL (8.5-10.1); Carbon Dioxide 27.7 mmol/L (21.0-32.0); Chloride 98 mmol/L (98-107); Chol HDL Ratio 2.7; Cholesterol 114 mg/dL (<=200); Estimated GFR (African America 56 (>=60); Estimated GFR (Non-African Ame 47 (>=60); Free T3 2.13 pg/mL (2.18-3.98); Glucose 81 mg/dL (74-106); HDL Cholesterol 42 mg/dL (40-60); LDL Cholesterol Calculated 48.2 mg/dL; Potassium 4.3 mmol/L (3.5-5.1); Sodium 133 mmol/L (136-145); Thyroid Stimulating Hormone 0.034 uIU/mL (0.358-3.740); Total Protein 7.4 g/dL (6.4-8.2); Triglycerides 119 mg/dL (<=150); VLDL CHOLESTEROL 23.8 mg/dL
== END 2024-05-13 09:53 | disposition home or self-care (01) ==
LOC: LAB 09:53
PROVIDERS: PCP Nurse Practitioner Family; Visit Provider Nurse Practitioner Family
DX: B37.9 Candidiasis, unspecified (principal); I10 Essential (primary) hypertension; R82.90 Unspecified abnormal findings in urine
CPT/HCPCS: 36415; 80053; 80061; 81001; 83880; 84436; 84443; 84481; 85025; 87086; 87150; 87186

== ENCOUNTER 2024-05-24 10:00 | Outpatient (OUT) | payer MEDICARE, SELFPAY ==
--- OUTSIDE RECORDS SUMMARY | 2024-05-24 10:04 | XMS_ITS | CCD ---
Author Organization [facility] Informat ion Partnership [facility] Care Team Providers Care Die Setter Name Role Phone RAFI BISWAS Attending Unavailable MORIAH MACK Primary Care Unavailable MORIAH MACK Referring Unavailable RAFI BISWAS Admitting Unavailable None, No PCP Unavailable Unavailable Unavailable Unavailable DO Isidra Garibay Admit Provider DO Isidra Garibay Attending Provider [phone] NON STAFF Primary Care Provider UnavailALTON Bowen Consulting Unavailable VALDEZ, NIKKI Primary Care Unavailable [...] PARKS Admitting Unavailable ALTON PARKS Consulting Unavailable VALDEZ, NIKKI Consulting Unavailable VALDEZ, NIKKI Admitting Unavailable VALDEZ, NIKKI Attending Unavailable VALDEZ, NIKKI Primary Care Unavailable FAWWAD, SWIFT H Admitting Unavailable FAWWAD, SWIFT H Attending Unavailable VALDEZ, NIKKI Primary Care Unavailable HASMUKH HILTON Admitting Unavailable HASMUKH HILTON Attending Unavailable MISC, DR PALOMARES Primary Care Unavailable MADELAINE ALVA Consulting Unavailable HASMUKH HILTON Consulting Unavailable MOUKARBEL, DR SHAFFER Admitting Unavailable [...] MISBaldemar, DR PALOMARES Primary Care Unavailable ALTON PARKS Consulting Unavailable VALDEZ, NIKKI Primary Care Unavailable ALTON PARKS Attending Unavailable ALTON PARKS Admitting Unavailable BEBO, DR NOLAN Philippe Admitting Unavailabl e BEBO, DR NOLAN Philippe Attending Unavailabl e MISC, DR PALOMARES Primary Care Unavailable BEBO, DR NOLAN Philippe Consulting Unavailabl e MELODIE ., MEREDITH MEMBRENO Consulting Unavailabl e HASMUKH HILTON Attending Unavailable HASMUKH HILTON Admitting Unavailable VALDEZ, NIKKI Primary Care Unavailable MARY ROJAS Consulting Unavailable MOUKARBEL, DR SHAFFER Admitting Unavailable MOUKARBEL, DR SHAFFER Attending Unavailable VALDEZ, NIKKI Primary Care Unavailable MOUKARBEL, DR SHAFFER Consulting Unavailable VALDEZ, [facility] Primary Care Unavailable MOUKARBEL, DR SHAFFER Attending Unavailable MOUKARBEL, DR SHAFFER Admitting Unavailable FAWWAD, SWFIT H Admitting Unavailable FAWWAD, SWIFT H Attending Unavailable VALDEZ, NIKKI Primary Care Unavailable NON STAFF Primary Care Unavailable Isidra Garibay Attending Unavailable Isidra Garibay Admitting Unavailable RAFI BISWAS Referring Unavailable ALTON PARKS Referring Unavailable OWEN, DELL Referring Unavailable OWEN, DELL Referring Unavailable MOUKADEEAN ABREU Attending Unavailable OWEN, DELL Referring Unavailable OWEN, DELL Referring Unavailable OWEN, DELL Referring Unavailable OWEN, DELL Referring Unavailable ALTON PARKS Referring Unavailable ALTON PARKS Referring Unavailable ALTON PARKS Referring Unavailable ALTON PARKS Referring Unavailable ALTON PARKS Referring Unavailable YELENA CRUZ Attending Unavailable ALTON PARKS Referring Unavailable CIRILO RUBALCAVA Attending Unavailable RAFI BISWAS Attending Unavailable ALTON PARKS Referring Unavailable DELL WEAEVR Referring Unavailable Allergies Allergy Classification Reported Allergen(s) Allergy Type Date of Onset Reaction(s) Facility (1 source) AVELOX IN NACL (ISO-OSMOTIC); Translations: [AVELOX IN NACL (ISO-OSMOTIC)] Propensity to adverse reactions (disorder) 1 [facility] Repository (4 sources) moxifloxacin; Translations: [Avelox] Drug Allergy [place] [address] DO Work Phone: (3 sources) moxifloxacin; Translations: [moxifloxacin] Drug Allergy 2 [facility] (1 source) moxifloxacin Drug Allergy 3 [facility] Repository (1 source) Chlorhexidine; Translations: [CHLORHEXIDINE GLUCONATE] Drug Allergy 0 [facility] Repository Medications Current Medications Medication Drug Class(es) Dates Sig (Normalized) Sig (Original) [id number] 200 actuat albuterol 0.09 mg/actuat metered dose [...] 10, 2022 1:49pm take 1 capsule by mo [facility] three times daily as needed Benzonatate 200 [...] 10, 2022 6:58pm take 1 capsule by mo [facility] once daily before breakfast Levothyroxine Sodium 137 [...] 10 14January 14, 2022 2:26pm take 6/3, 6/4, and 65 then decrease to 3mg daily starting 01/17 Warfarin Sodium 3 MG Oral Tablet Take as directed by [facility] Quantity: 0 Refills: 0 Ordered: 18-Jan-2022 DO Active Completed/Discontinued Medications Medication Drug Class(es) Dates Sig (Normalized) Sig (Original) ibuprofen 800 mg oral tablet (1 source) Nonsteroidal Anti-inflammatory Drug Start: 01-10-2022 End: 01-14-2022 Ibuprofen Discontinued MG TABLET January 10, 2022 1:49pm January 14, 2022 2:28pm Problems Active Problems Problem Classification Problem Date Documented Date Episodic/Chronic Acute myocardial infarction (9 sources) Myocardial infarction; Translations: [Acute myocardial infarction of other anterior wall, episode of care unspecified] Onset: 01-10-2022 01-10-2022 Chronic Conduction disorders (10 sources) Presence of automatic (implantable) cardiac defibrillator; Translations: [Presence of cardiac pacemaker] Onset: 05-18-2022 Chronic Congestive heart failure; nonhypertensive (14 sources) Chronic systolic (congestive) heart failure; Translations: [Unspecified systolic (congestive) heart failure] Onset: 03-31-2022 Chronic Coronary atherosclerosis and other heart disease (18 sources) Coronary arteriosclerosis; Translations: [Coronary atherosclerosis of [place] coronary artery] Onset: 02-02-2022 Chronic Diabetes mellitus [...] current complications following acute myocardial infarction; Translations: [THROMB AT AUR BEN VENT COMP FLW AMI] Onset: 01-10-2022 Chronic Other inflammatory condition of [...] UNSPECIFIED] Onset: 07-20-2022 Chronic Unclassified (1 source) CONTACT W/AND (SUSP) EXPOS [...] 02-28-2022 Episodic Other aftercare (1 source) 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 therapy; Translations: [OTH PRISON CURRENT DRUG THERAPY] Onset: 06-07-2022 Episodic Other aftercare (4 sources) Encounter for therapeutic drug level monitoring; Translations: [ENC THERAPEUTC DRUG LEVL MONITORING] Onset: 05-15-2022 Episodic Other aftercare (1 source) 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 operator (current) use of anticoagulants; Translations: [PRISON CURRNT USE ANTICOAGULANTS] Onset: 06-14-2022 Episodic Other [...] Range Facility Office Visiton 01-12-2024 Follow-up visit [id number] Javier Link 1970 Date Provider Department Center 01/12/2024 YELENA REYES HETAL [place] Family History Problem Relation Age of Onset Atrial fibrillation Mother Other Mother Heart attack Father Other Father Other Father Family Status - Relation Status Age at Mother Father Level of Service:77911 SD OFFICE/OUTPATIENT ESTABLISHED MOD MDM 30 MIN [facility] 36on 09-29-2023 36 Yes please! [facility] 36 Can we give patient sample? Normal [facility] Follow-Upon 07-31-2023 Follow-Up [id number] Javier Link 1970 Date Provider Department Center 07/31/2023 CIRILO [facility] D[facility] Family History Problem Relation Age of Onset Atrial fibrillation Mother Other Mother Heart attack Father Other Father Other Father Family Status - Relation Status Age at Mother Father Level of Service:95889 SD OFFICE/OUTPATIENT ESTABLISHED MOD MDM 30-39 MIN Reason for Visit and Comments: Follow-up [473686] - Discuss medication switch Normal [facility] Office Visiton 06-28-2023 Follow-up visit [id number] Javier Link 1970 F Date Provider Department Center 06/28/2023 DEENA GARCIA CARD [facility] Family History Problem Relation Age of Onset Atrial fibrillation Mother Other Mother Heart attack Father Other Father Other Father Family Status - Relation Status Age at Mother Father Level of Service:65852 SD OFFICE/OUTPATIENT ESTABLISHED LOW MDM 20-29 MIN Reason for Visit and Comments: Follow-up [440243] - BP running higher. Normal [facility] Office Visiton 05-23-2023 Follow-up visit [id number] BraxtonJavier chávez Bebo 1970 F Date Provider Department Center 05/23/2023 RAFI HONEYCUTT [facility] Family History Problem Relation Age of Onset Atrial fibrillation Mother Other Mother Heart attack Father Other Father Other Father Family Status - Relation Status Age at Mother Father Level of Service:26793 SD OFFICE/OUTPATIENT ESTABLISHED LOW MDM 20-29 MIN (GC,25) Reason for Visit and Comments: Pain [136] - Radiates up thumb up arm Pain [136] - Radiates up thumb up to arm. Normal [facility] PROF CHEM 8 (BAS METB)on Anion gap [Moles/Vol] 14.8 mmol/L Normal [facility] Comment on above: Performed By: #### C BC #### [facility] [address] [address] [address] Vangie Devine Calcium [Mass/Vol] 8.9 mg/dL Normal 8.5-10.1 [facility] Comment on above: Performed By: #### C BC #### [facility] [address] [address] [address] Vangie Devine Chloride [Moles/Vol] 101 mmol/L Normal 98-107 [facility] Comment on above: Performed By: #### C BC #### [facility] [address] [address] [address] Vangie Devine CO2 [Moles/Vol] 25.9 mmol/L Normal 21.0-32.0 [facility] Comment on above: Performed By: #### C BC #### [facility] [address] [address] [address] Vangie Devine Creatinine [Mass/Vol] 0.91 mg/dL Normal 0.55-1.02 [facility] Comment on above: Performed By: #### C BC #### [facility] [address] [address] [address] Vanige Devine EGFR-AF [place] >60 Normal >=60 [facility] Comment on above: Performed By: #### C BC #### [facility] [address] [address] [address] Vangie Devine EGFR-NON AF [place] >60 Normal >=60 [facility] Comment on above: Performed By: #### C BC #### [facility] [address] [address] [address] Vangie Devine Glucose [Mass/Vol] 93 mg/dL Normal 74-106 [facility] Comment on above: Performed By: #### C BC #### [facility] [address] [place] [address] Dr. Vangie Devine Potassium [Moles/Vol] 4.7 mmol/L Normal 3.5-5.1 [facility] Comment on above: Performed By: #### C BC #### [facility] [address] [address] [address] Vangie Devine Sodium [Moles/Vol] 137 mmol/L Normal 136-145 [facility] Comment on above: Performed By: #### C BC #### [facility] [address] [place] [address] Dr. Vangie Devine Urea nitrogen [Mass/Vol] 9.0 mg/dL Normal 7.0-18.0 [facility] Comment on above: Performed By: #### C BC #### [facility] [address] [address] [address] Vangie Devine Urea nitrogen/Creatinine [Mass ratio] 9.9 mg/mg Normal [facility] Comment on above: Performed By: #### C BC #### [facility] [address] [address] [address] Vangie Devine PROF CHEM 8 (BAS METB)on Anion gap [Moles/Vol] 15.6 mmol/L Normal [facility] Comment on above: Performed By: #### P TT, PT #### [facility] [address] [address] [address] Vangie Devine Calcium [Mass/Vol] 8.9 mg/dL Normal 8.5-10.1 [facility] Comment on above: Performed By: #### P TT, PT #### [facility] [address] [address] [address] Vangie Devine Chloride [Moles/Vol] 101 mmol/L Normal 98-107 [facility] Comment on above: Performed By: #### P TT, PT #### [facility] [address] [place] [address] Dr. Vangie Devine CO2 [Moles/Vol] 24.7 mmol/L Normal 21.0-32.0 [facility] Comment on above: Performed By: #### P TT, PT #### [facility] [address] [place] [address] Dr. Vangie Devine Creatinine [Mass/Vol] 0.95 mg/dL Normal 0.55-1.02 [facility] Comment on above: Performed By: #### P TT, PT #### [facility] [address] [place] [address] Dr. Vangie Devine EGFR-AF [place] >60 Normal >=60 [facility] Comment on above: Performed By: #### P TT, PT #### [facility] [address] [place] [address] Dr. Vangie Devine EGFR-NON AF [place] >60 Normal >=60 [facility] Comment on above: Performed By: #### P TT, PT #### [facility] [address] [place] [address] Dr. Vangie Devine Glucose [Mass/Vol] 101 mg/dL Normal 74-106 [facility] Comment on above: Performed By: #### P TT, PT #### [facility] [address] [place] [address] Dr. Vangie Devine Potassium [Moles/Vol] 4.3 mmol/L Normal 3.5-5.1 [facility] Comment on above: Performed By: #### P TT, PT #### [facility] [address] [address] [address] Vangie Devine Sodium [Moles/Vol] 137 mmol/L Normal 136-145 [facility] Comment on above: Performed By: #### P TT, PT #### [facility] [address] [address] [address] Vangie Devine Urea nitrogen [Mass/Vol] 15.0 mg/dL Normal 7.0-18.0 [facility] Comment on above: Performed By: #### P TT, PT #### [facility] [address] [address] [address] Vangie Devine Urea nitrogen/Creatinine [Mass ratio] 15.8 mg/mg Normal [facility] Comment on above: Performed By: #### P TT, PT #### [facility] [address] [address] [address] Vangie Devine NM STRESS/REST MULTIon 10-31 NM STRESS/REST MULTI Patient: JAVIER LINK Exam Date: 10/31/2022 : 1970 Gender:F Ordering : DR DEENA BENTON M.D. Admission #: [id number] Family : Order #: [id number] CLICK HERE TO VIEW EXAM RADIOLOGY REPORT [...] M.D. on 10/31/2022 at 14:45 Normal [facility] FREE THYROXINE INDEX T7on FTI 4.83 Critically high 1.30-4.50 [facility] Comment on above: Performed By: #### C BC #### [facility] [address] [address] [address] Vangie Devine T3U 35.0 % Normal 30.0-39.0 [facility] Comment on above: Performed By: #### C BC #### [facility] [address] [address] [address] Vangie Devine T4 [Mass/Vol] 13.80 ug/dL Normal 4.80-13.90 [facility] Comment on above: Performed By: #### C BC #### [facility] [address] [address] [address] Vangie Devine TSHon 07-20-2022 TSH 0.051 uIU/mL Critically low 0.358-3.740 [facility] Comment on above: Performed By: #### C BC #### [facility] [address] [address] [address] Vangie Devine ACETONE SERUMon 06-03-2022 ACETONE Negative Normal NEGATIVE [facility] Comment on above: Performed By: #### C BCHERIBERTO #### [facility] [address] [place] [address] Dr. Vangie Devine CBC AUTO DIFFon 06-03-2022 BASO # 0.1 103/ul Normal 0.0-0.1 [facility] Comment on above: Performed By: #### C BCMAN #### [facility] [address] [place] [address] Dr. Vangie Devine Basophils/100 WBC (Bld) 0.6 % Normal 0.2-2.0 [facility] Comment on above: Performed By: #### C BCMAN #### [facility] [address] [place] [address] Dr. Vangie Devine EO # 0.3 103/ul Normal 0.0-0.7 [facility] Comment on above: Performed By: #### C BCHERIBERTO #### [facility] [address] [place] [address] Dr. Vangie Devine Eosinophils/100 WBC (Bld) 1.4 % Normal 0.9-7.0 [facility] Comment on above: Performed By: #### C BCHERIBERTO #### [facility] [address] [place] [address] Dr. Vangie Devine Erythrocyte distribution width (RBC) [Ratio] 13.2 % Normal 11.0-15.0 [facility] Comment on above: Performed By: #### C BCHERIBERTO #### [facility] [address] [place] [address] Dr. Vangie Devine Hematocrit (Bld) [Volume fraction] 44.8 % Normal 36.0-48.0 [facility] Comment on above: Performed By: #### C BCMAN #### [facility] [address] [place] [address] Dr. Vangie Devine Hemoglobin (Bld) [Mass/Vol] 15.0 g/dL Normal 12.0-16.0 [facility] Comment on above: Performed By: #### C BCMAN #### [facility] [address] [place] [address] Dr. Vangie Devine IG # 0.06 10e3/ul Critically high 0.00-0.03 [facility] Comment on above: Performed By: #### C JOBY #### [facility] [address] [place] [address] Dr. Vangie Devine IG % 0.3 % Normal 0.0-0.5 [facility] Comment on above: Performed By: #### C JOBY #### [facility] [address] [place] [address] Dr. Vangie Devine LYMPH # 3.5 103/ul Normal 1.2-3.8 [facility] Comment on above: Performed By: #### C JOBY #### [facility] [address] [place] [address] Dr. Vangie Devine Lymphocytes/100 WBC (Bld) 19.8 % Critically low 20.5-60.0 [facility] Comment on above: Performed By: #### C JOBY #### [facility] [address] [place] [address] Dr. Vangie Devine MANUAL DIFF REQ NO Normal [facility] Comment on above: Performed By: #### C JOBY #### [facility] [address] [place] [address] Dr. Vangie Devine MCH (RBC) [Entitic mass] 31.1 pg Normal 26.7-34.0 [facility] Comment on above: Performed By: #### C JOBY #### [facility] [address] [place] [address] Dr. Vangie Devine MCHC (RBC) [Mass/Vol] 33.5 g/dL Normal 29.9-35.2 [facility] Comment on above: Performed By: #### C JOBY #### [facility] [address] [place] [address] Dr. Vangie Devine MCV (RBC) [Entitic vol] 92.8 fL Normal 81.0-99.0 [facility] Comment on above: Performed By: #### C JOBY #### [facility] [address] [place] [address] Dr. Vangie Devine MONO # 1.1 103/ul Critically high 0.3-0.8 [facility] Comment on above: Performed By: #### C JOBY #### [facility] [address] [place] [address] Dr. Vangie Devine Monocytes/100 WBC (Bld) 6.0 % Normal 1.7-12.0 [facility] Comment on above: Performed By: #### C JOBY #### [facility] [address] [place] [address] Dr. Vangie Devine NEUT # 12.6 103/ul Critically high 1.4-6.5 [facility] Comment on above: Performed By: #### C JOBY #### [facility] [address] [place] [address] Dr. Vangie Devine Neutrophils/100 WBC (Bld) 71.9 % Normal 43.0-75.0 [facility] Comment on above: Performed By: #### Baldemar HEMPHILL #### [facility] [address] [place] [address] Dr. Vangie Devine Platelet mean volume (Bld) [Entitic vol] 11.0 fL Normal 9.5-13.5 [facility] Comment on above: Performed By: #### C JOBY #### [facility] [address] [place] [address] Dr. Vangie Devine PLT 179 103/ul Normal 150-450 [facility] Comment on above: Performed By: #### Baldemar HEMPHILL #### [facility] [address] [place] [address] Dr. Vangie Devine RBC 4.83 106/ul Normal 4.20-5.40 [facility] Comment on above: Performed By: #### C JOBY #### [facility] [address] [place] [address] Dr. Vangie Devine WBC 17.5 103/ul Critically high 4.0-11.0 [facility] Comment on above: Performed By: #### C JOBY #### [facility] [address] [place] [address] HEAD WO CONon [...] MARY ROJAS Date: 2022-06-03 19:15 Normal [facility] CULTURE URINEon 06-03-2022 CULTURE URINE Culture Observations : NO GROWTH. Normal [facility] Comment on above: Performed By: #### P TT, PT #### [facility] [address] [address] [address] Vangie Devine Covid-19 PCR ([facility])on 05-15 SARS-CoV-2 (COVID-19) RNA SAMIR+probe Ql (Unsp spec) Not detected Normal NOT DETECTED [facility] Comment on above: Result Comment: When diagnostic [...] for this test is supported by the [place] of Health and Human Service's declaration that [...] used). Performed By: #### C BCMAN #### [facility] [address] [place] [address] Dr. Vangie Devine ER URINE PROFILEon 2 Bilirubin Ql (U) Negative Normal NEGATIVE [facility] Comment on above: Performed By: #### C BC #### [facility] [address] [place] [address] Dr. Vangie Devine Clarity (U) CLEAR Normal CLEAR [facility] Comment on above: Performed By: #### C BC #### [facility] [address] [place] [address] Dr. Vangie Devine Color (U) LT. YELLOW Normal YELLOW [facility] Comment on above: Performed By: #### C BC #### [facility] [address] [place] [address] Dr. Vangie Devine ERUAHD A micrscopic examination will be performed if indicated. Normal [facility] Comment on above: Performed By: #### C BC #### [facility] [address] [place] [address] Dr. Vangie Devine Glucose Ql (U) 250 mg/dl Abnormal NEGATIVE [facility] Comment on above: Performed By: #### C BC #### [facility] [address] [place] [address] Dr. Vangie Devine Hemoglobin Ql (U) Negative Normal NEGATIVE [facility] Comment on above: Performed By: #### C BC #### [facility] [address] [place] [address] Dr. Vangie Devine Ketones Ql (U) Negative Normal NEGATIVE [facility] Comment on above: Performed By: #### C BC #### [facility] [address] [place] [address] Dr. Vangie Devine LEUKOCYTES Negative Normal NEGATIVE [facility] Comment on above: Performed By: #### C BC #### [facility] [address] [place] [address] Dr. Vangie Devine Nitrite Ql (U) Positive Abnormal NEGATIVE [facility] Comment on above: Performed By: #### C BC #### [facility] [address] [place] [address] Dr. Vangie Devine pH (U) 6.0 [pH] Normal 5-9 [facility] Comment on above: Performed By: #### C BC #### [facility] [address] [place] [address] Dr. Vangie Devine SPEC GRAVITY <=1.005 Abnormal 1.005-<=1.025 [facility] Comment on above: Performed By: #### C BC #### [facility] [address] [place] [address] Dr. Vangie Devine UA PROTEIN Negative Normal NEGATIVE/ TRACE [facility] Comment on above: Performed By: #### C BC #### [facility] [address] [place] [address] Dr. Vangie Devine UR MICRO IND INDICATED Normal [facility] Comment on above: Performed By: #### C BC #### [facility] [address] [place] [address] Dr. Vangie Devine Urobilinogen Qn (U) 0.2 {Jewel'U}/dL Normal 0.2 - 1. 0 [facility] Comment on above: Performed By: #### C BC #### [facility] [address] [place] [address] Dr. Vangie Devine FREE T3on 06-03-2022 FREE T3 2.42 pg/mlL Normal 2.18-3.98 [facility] Comment on above: Performed By: #### F T3 #### [facility] [address] [place] [address] Dr. Vangie Devine FREE T4on 06-03-2022 Free T4 [Mass/Vol] 1.93 ng/dL Critically high 0.76-1.46 [facility] Comment on above: Performed By: #### C BCMAN #### [facility] [address] [place] [address] Dr. Vangie Devine LACTATE/LACTIC ACIDon 10-21- 2022 Lactate [Moles/Vol] 1.2 mmol/L Normal 0.4-1.9 [facility] Comment on above: Performed By: #### C JOBY #### [facility] [address] [address] [address] Vangie Devine PROF 14(COMP METB)on 022 Albumin [Mass/Vol] 3.9 g/dL Normal 3.4-5.0 [facility] Comment on above: Performed By: #### H STROPN, TSH, CMP #### [facility] [address] [address] [address] Vangie Devine Albumin/Globulin [Mass ratio] 0.9 {ratio} Normal [facility] Comment on above: Performed By: #### H TROY, TSH, CMP #### [facility] [address] [address] [address] Vangie Devine ALP [Catalytic activity/Vol] 138 U/L Critically high 46-116 [facility] Comment on above: Performed By: #### H TROY, TSH, CMP #### [facility] [address] [address] [address] Vangie Devine ALT [Catalytic activity/Vol] 24 U/L Normal 14-59 [facility] Comment on above: Performed By: #### H TROY, TSH, CMP #### [facility] [address] [address] [address] Vangie Devine Anion gap [Moles/Vol] 11.4 mmol/L Normal [facility] Comment on above: Performed By: #### H STROPN, TSH, CMP #### [facility] [address] [address] [address] Vangie Devine AST [Catalytic activity/Vol] 23 U/L Normal 15-37 [facility] Comment on above: Performed By: #### H STROPN, TSH, CMP #### [facility] [address] [address] [address] Vangie Devine Bilirubin [Mass/Vol] 0.5 mg/dL Normal 0.2-1.0 [facility] Comment on above: Performed By: #### H STROPN, TSH, CMP #### [facility] [address] [address] [address] Vangie Devine Calcium [Mass/Vol] 9.5 mg/dL Normal 8.5-10.1 [facility] Comment on above: Performed By: #### H STROPN, TSH, CMP #### [facility] [address] [address] [address] Vangie Devine Chloride [Moles/Vol] 98 mmol/L Normal 98-107 [facility] Comment on above: Performed By: #### H STROPN, TSH, CMP #### [facility] [address] [address] [address] Vangie Devine CO2 [Moles/Vol] 25.3 mmol/L Normal 21.0-32.0 [facility] Comment on above: Performed By: #### H STROPN, TSH, CMP #### [facility] [address] [address] [address] Vangie Devine Creatinine [Mass/Vol] 0.90 mg/dL Normal 0.55-1.02 [facility] Comment on above: Performed By: #### H STROPN, TSH, CMP #### [facility] [address] [place] [address] Dr. Vangie Devine EGFR-AF [place] >60 Normal >=60 [facility] Comment on above: Performed By: #### H STROPN, TSH, CMP #### [facility] [address] [place] [address] Dr. Vangie Devine EGFR-NON AF [place] >60 Normal >=60 [facility] Comment on above: Performed By: #### H STROPN, TSH, CMP #### [facility] [address] [address] [address] Vangie Devine Globulin (S) [Mass/Vol] 4.2 g/dL Normal [facility] Comment on above: Performed By: #### H STROPN, TSH, CMP #### [facility] [address] [place] [address] Dr. Vangie Devine Glucose [Mass/Vol] 93 mg/dL Normal 74-106 [facility] Comment on above: Performed By: #### H STROPN, TSH, CMP #### [facility] [address] [address] [address] Vangie Devine Potassium [Moles/Vol] 3.7 mmol/L Normal 3.5-5.1 [facility] Comment on above: Performed By: #### H STROPN, TSH, CMP #### [facility] [address] [address] [address] Vangie Devine Protein [Mass/Vol] 8.1 g/dL Normal 6.4-8.2 [facility] Comment on above: Performed By: #### H STROPN, TSH, CMP #### [facility] [address] [place] [address] Dr. Vangie Devine Sodium [Moles/Vol] 131 mmol/L Critically low 136-145 [facility] Comment on above: Performed By: #### H STROPN, TSH, CMP #### [facility] [address] [place] [address] Dr. Vangie Devine Urea nitrogen [Mass/Vol] 14.0 mg/dL Normal 7.0-18.0 [facility] Comment on above: Performed By: #### H STRONANCY, TSH, CMP #### [facility] [address] [place] [address] Dr. Vangie Devine Urea nitrogen/Creatinine [Mass ratio] 15.6 mg/mg Normal [facility] Comment on above: Performed By: #### H STROPN, TSH, CMP #### [facility] [address] [place] [address] Dr. Vangie Devine PROTIMEon 06-03-2022 INR Coag (PPP) [Relative time] 1.06 {INR} Normal [facility] Comment on above: Performed By: #### C BCMAN #### [facility] [address] [place] [address] Dr. Vangie Devine INR GUIDELINES SEE BELOW Normal [facility] Comment on above: Result Comment: MARY ANN RED INR: 2.0 - 3.0 CONDITIONS NOT LISTED BELOW 2.5 - 3.5 FOR PROSTHETIC HEART VALVE REPLACEMENT 2.5 - 3.5 RECURRENT THROMBOSIS Performed By: #### C BCMAN #### [facility] [address] [place] [address] Dr. Vangie Devine PT Coag (PPP) [Time] 11.4 s Normal 9.0-11.6 [facility] Comment on above: Performed By: #### C BCMAN #### [facility] [address] [place] [address] Dr. Vangie Devine PTTon 06-03-2022 aPTT Coag (Bld) [Time] 31.3 s Normal 22.3-36.2 Th [facility] Comment on above: Performed By: #### C JANNETTEMAN #### [facility] [address] [place] [address] Dr. Vangie Devine TROPONIN, HIGH SENSITIVITYon 06-03-2022 HSTROP 26.3 pg/mL Normal 4.0-51.3 [facility] Comment on above: Result Comment: CUT- OFF POINTS HAVE BEEN ESTABLISHED BASED ON THE FOURTH UNIVERSAL DEFINITIONS OF MYOCARDIAL INFARCTION. THE UPPER REFERENCE LIMIT (URL) OF TROPONIN, DEFINED THE 99TH PERCENTILE OF cTnI DISTRIBUTION IN A REFERENCE POPULATION, HAS BEEN CONFIRMED THE DECISION THRESHOLD FOR [place] DIAGNOSIS. Performed By: #### P TT, PT #### [facility] [address] [place] [address] Dr. Vangie Devine TSHon 06-03-2022 TSH 0.150 uIU/mL Critically low 0.358-3.740 [facility] Comment on above: Performed By: #### P TT, PT #### [facility] [address] [place] [address] Dr. Vangie Devine URINE MICROSCOPIC ONLYon BACTERIA TRACE Abnormal NONE SEEN [facility] Comment on above: Performed By: #### C BC #### [facility] [address] [place] [address] Dr. Vangie Devine Bacteria identified Cx Nom (U) INDICATED Normal [facility] Comment on above: Result Comment: dory cated due to positive nitrite Performed By: #### C BC #### [facility] [address] [place] [address] Dr. Vangie Devine CAST NONE SEEN Normal NONE SEEN [facility] Comment on above: Performed By: #### C BC #### [facility] [address] [place] [address] Dr. Vangie Devine Crystals LM Nom (Urine sed) NONE SEEN Normal NONE SEEN [facility] Comment on above: Performed By: #### C BC #### [facility] [address] [place] [address] Dr. Vangie Devine Epithelial cells LM Ql (Urine sed) RARE Normal NONE SEEN /RARE [facility] Comment on above: Performed By: #### C BC #### [facility] [address] [place] [address] Dr. Vangie Devine MUCOUS NONE SEEN Normal NONE SEEN [facility] Comment on above: Performed By: #### C BC #### [facility] [address] [place] [address] Dr. Vangie Devine RBC 0-2 Normal 0-2 [facility] Comment on above: Performed By: #### C BC #### [facility] [address] [place] [address] Dr. Vangie Devine WBC 0-2 Abnormal NONE SEEN [facility] Comment on above: Performed By: #### C BC #### [facility] [address] [place] [address] Dr. Vangie Devine XR CHEST 1 Von [...] MARY ROJAS Date: 2022-06-03 19:25 Normal [facility] XR CHEST 2 Von 05-18-2022 XR CHEST [...] ANGEL SHAFFER Date: 2022-05-18 10:55 Normal [facility] Covid-19 PCR (CVDTB)on SARS-CoV-2 (COVID-19) RNA SAMIR+probe Ql (Unsp spec) Not detected Normal NOT DETECTED [facility] Comment on above: Result Comment: This test is not yet approved or cleared by the [place] FDA. When there are no FDA-approved or cleared tests available, and other criteria are met, FDA can make tests available under an emergency access mechanism called an Emergency Use Authorization (EUA). The EUA for this test is supported by the [place] of Health and Human Service's (HHS's) declaration [...] Performed By: #### P TT, PT #### [facility] [address] [place] [address] Dr. Vangie Devine CBC AUTO DIFFon 05-12-2022 BASO # 0.1 103/ul Normal 0.0-0.1 [facility] Comment on above: Performed By: #### C BC #### [facility] [address] [place] [address] Dr. Vangie Devine Basophils/100 WBC (Bld) 0.7 % Normal 0.2-2.0 [facility] Comment on above: Performed By: #### C BC #### [facility] [address] [place] [address] Dr. Vangie Devine EO # 0.2 103/ul Normal 0.0-0.7 [facility] Comment on above: Performed By: #### C BC #### [facility] [address] [place] [address] Dr. Vangie Devine Eosinophils/100 WBC (Bld) 2.1 % Normal 0.9-7.0 [facility] Comment on above: Performed By: #### C BC #### [facility] [address] [place] [address] Dr. Vangie Devine Erythrocyte distribution width (RBC) [Ratio] 13.1 % Normal 11.0-15.0 [facility] Comment on above: Performed By: #### C BC #### [facility] [address] [place] [address] Dr. Vangie Devine Hematocrit (Bld) [Volume fraction] 43.2 % Normal 36.0-48.0 [facility] Comment on above: Performed By: #### C BC #### [facility] [address] [place] [address] Dr. Vangie Devine Hemoglobin (Bld) [Mass/Vol] 14.2 g/dL Normal 12.0-16.0 [facility] Comment on above: Performed By: #### C BC #### [facility] [address] [place] [address] Dr. Vangie Devine IG # 0.02 10e3/ul Normal 0.00-0.03 [facility] Comment on above: Performed By: #### C BC #### [facility] [address] [place] [address] Dr. Vangie Devine IG % 0.2 % Normal 0.0-0.5 [facility] Comment on above: Performed By: #### C BC #### [facility] [address] [place] [address] Dr. Vangie Devine LYMPH # 1.9 103/ul Normal 1.2-3.8 [facility] Comment on above: Performed By: #### C BC #### [facility] [address] [place] [address] Dr. Vangie Devine Lymphocytes/100 WBC (Bld) 22.2 % Normal 20.5-60.0 [facility] Comment on above: Performed By: #### C BC #### [facility] [address] [place] [address] Dr. Vangie Devine MANUAL DIFF REQ NO Normal [facility] Comment on above: Performed By: #### C BC #### [facility] [address] [place] [address] Dr. Vangie Devine MCH (RBC) [Entitic mass] 30.5 pg Normal 26.7-34.0 [facility] Comment on above: Performed By: #### C BC #### [facility] [address] [place] [address] Dr. Vangie Devine MCHC (RBC) [Mass/Vol] 32.9 g/dL Normal 29.9-35.2 [facility] Comment on above: Performed By: #### C BC #### [facility] [address] [place] [address] Dr. Vangie Devine MCV (RBC) [Entitic vol] 92.7 fL Normal 81.0-99.0 [facility] Comment on above: Performed By: #### C BC #### [facility] [address] [place] [address] Dr. Vangie Devine MONO # 0.5 103/ul Normal 0.3-0.8 [facility] Comment on above: Performed By: #### C BC #### [facility] [address] [place] [address] Dr. Vangie Devine Monocytes/100 WBC (Bld) 6.0 % Normal 1.7-12.0 [facility] Comment on above: Performed By: #### C BC #### [facility] [address] [place] [address] Dr. Vangie Devine NEUT # 6.0 103/ul Normal 1.4-6.5 [facility] Comment on above: Performed By: #### C BC #### [facility] [address] [place] [address] Dr. Vangie Devine Neutrophils/100 WBC (Bld) 68.8 % Normal 43.0-75.0 [facility] Comment on above: Performed By: #### C BC #### [facility] [address] [place] [address] Dr. Vangie Devine Platelet mean volume (Bld) [Entitic vol] 11.7 fL Normal 9.5-13.5 [facility] Comment on above: Performed By: #### C BC #### [facility] [address] [place] [address] Dr. Vangie Devine PLT 176 103/ul Normal 150-450 [facility] Comment on above: Performed By: #### C BC #### [facility] [address] [place] [address] Dr. Vangie Devine RBC 4.66 106/ul Normal 4.20-5.40 [facility] Comment on above: Performed By: #### C BC #### [facility] [address] [place] [address] Dr. Vangie Devine WBC 8.7 103/ul Normal 4.0-11.0 [facility] Comment on above: Performed By: #### C BC #### [facility] [address] [place] [address] Dr. Vangie Devine PROF CHEM 8 (BAS METB)on Anion gap [Moles/Vol] 13.9 mmol/L Normal Th [facility] Comment on above: Performed By: #### C BC #### [facility] [address] [place] [address] Dr. Vangie Devine Calcium [Mass/Vol] 9.2 mg/dL Normal 8.5-10.1 [facility] Comment on above: Performed By: #### C BC #### [facility] [address] [address] [address] Vangie Devine Chloride [Moles/Vol] 101 mmol/L Normal 98-107 [facility] Comment on above: Performed By: #### C BC #### [facility] [address] [address] [address] Vangie Devine CO2 [Moles/Vol] 24.2 mmol/L Normal 21.0-32.0 [facility] Comment on above: Performed By: #### C BC #### [facility] [address] [address] [address] Vangie Devine Creatinine [Mass/Vol] 0.87 mg/dL Normal 0.55-1.02 [facility] Comment on above: Performed By: #### C BC #### [facility] [address] [place] [address] Dr. Vangie Devine EGFR-AF [place] >60 Normal >=60 [facility] Comment on above: Performed By: #### C BC #### [facility] [address] [place] [address] Dr. Vangie Devine EGFR-NON AF [place] >60 Normal >=60 [facility] Comment on above: Performed By: #### C BC #### [facility] [address] [place] [address] Dr. Vangie Devine Glucose [Mass/Vol] 89 mg/dL Normal 74-106 [facility] Comment on above: Performed By: #### C BC #### [facility] [address] [place] [address] Dr. Vangie Devine Potassium [Moles/Vol] 4.1 mmol/L Normal 3.5-5.1 [facility] Comment on above: Performed By: #### C BC #### [facility] [address] [place] [address] Dr. Vangie Devine Sodium [Moles/Vol] 135 mmol/L Critically low 136-145 Th [facility] Comment on above: Performed By: #### C BC #### [facility] [address] [place] [address] Dr. Vangie Devine Urea nitrogen [Mass/Vol] 9.0 mg/dL Normal 7.0-18.0 [facility] Comment on above: Performed By: #### C BC #### [facility] [address] [place] [address] Dr. Vangie Devine Urea nitrogen/Creatinine [Mass ratio] 10.3 mg/mg Normal [facility] Comment on above: Performed By: #### C BC #### [facility] [address] [place] [address] Dr. Vangie Devine PROTIMEon 05-12-2022 INR Coag (PPP) [Relative time] 1.96 {INR} Normal [facility] Comment on above: Performed By: #### P T #### [facility] [address] [place] [address] Dr. Vangie Devine INR GUIDELINES SEE BELOW Normal [facility] Comment on above: Result Comment: MARY ANN RED INR: 2.0 - 3.0 CONDITIONS NOT LISTED BELOW 2.5 - 3.5 FOR PROSTHETIC HEART VALVE REPLACEMENT 2.5 - 3.5 RECURRENT THROMBOSIS Performed By: #### P T #### [facility] [address] [place] [address] Dr. Vangie Devine PT Coag (PPP) [Time] 20.3 s Critically high 9.0-11.6 [facility] Comment on above: Performed By: #### P T #### [facility] [address] [place] [address] Dr. Vangie Devine T4, T3U, FTI LABCORPon 05-07 Free Thyroxine Index 4.7 Normal 1.2-4.9 [facility] Comment on above: Performed By: #### T HYLC #### [facility] [address] [place] [address] Dr. Vangie Devine T3 Uptake 34 % Normal 24-39 [facility] Comment on above: Performed By: #### T HYLC #### [facility] [address] [place] [address] Dr. Vangie Devine T4 [Mass/Vol] 13.8 ug/dL Critically high 4.5-12.0 [facility] Comment on above: Performed By: #### T HYLC #### [facility] [address] [place], [place] [address] Dr. Vangie Devine TSHon 05-06-2022 TSH 0.063 uIU/mL Critically low 0.358-3.740 [facility] Comment on above: Performed By: #### T SH #### [facility] [address] [place], [place] [address] Dr. Vangie Devine ECHOCARDIO M/2D COMPLETEon 0 03-31-2022 ECHOCARDIO M/2D COMPLETE Patient: JAVIER LINK Exam Date: 03/31/2022 : 1970 Gender:F Ordering : DR DEENA BENTON M.D. Admission #: [id number] Family : Order #: [id number] CLICK HERE TO VIEW EXAM ECHOCARDIOGRAM REPORT [...] M.D. on 03/31/2022 at 18:35 Normal [facility] CBC AUTO DIFFon 03-28-2022 BASO # 0.1 103/ul Normal 0.0-0.1 [facility] Comment on above: Performed By: #### C BC #### [facility] [address] [place] [address] Dr. Vangie Devine Basophils/100 WBC (Bld) 0.6 % Normal 0.2-2.0 [facility] Comment on above: Performed By: #### C BC #### [facility] [address] [place] [address] Dr. Vangie Devine EO # 0.2 103/ul Normal 0.0-0.7 [facility] Comment on above: Performed By: #### C BC #### [facility] [address] [place] [address] Dr. Vangie Devine Eosinophils/100 WBC (Bld) 2.0 % Normal 0.9-7.0 [facility] Comment on above: Performed By: #### C BC #### [facility] [address] [place] [address] Dr. Vangie Devine Erythrocyte distribution width (RBC) [Ratio] 12.7 % Normal 11.0-15.0 [facility] Comment on above: Performed By: #### C BC #### [facility] [address] [place] [address] Dr. Vangie Devine Hematocrit (Bld) [Volume fraction] 42.6 % Normal 36.0-48.0 [facility] Comment on above: Performed By: #### C BC #### [facility] [address] [place] [address] Dr. Vangie Devine Hemoglobin (Bld) [Mass/Vol] 13.9 g/dL Normal 12.0-16.0 [facility] Comment on above: Performed By: #### C BC #### [facility] [address] [place] [address] Dr. Vangie Devine IG # 0.03 10e3/ul Normal 0.00-0.03 [facility] Comment on above: Performed By: #### C BC #### [facility] [address] [place] [address] Dr. Vangie Devine IG % 0.4 % Normal 0.0-0.5 [facility] Comment on above: Performed By: #### C BC #### [facility] [address] [place] [address] Dr. Vangie Devine LYMPH # 2.3 103/ul Normal 1.2-3.8 [facility] Comment on above: Performed By: #### C BC #### [facility] [address] [place] [address] Dr. Vangie Devine Lymphocytes/100 WBC (Bld) 28.7 % Normal 20.5-60.0 [facility] Comment on above: Performed By: #### C BC #### [facility] [address] [place] [address] Dr. Vangie Devine MANUAL DIFF REQ NO Normal [facility] Comment on above: Performed By: #### C BC #### [facility] [address] [place] [address] Dr. Vangie Devine MCH (RBC) [Entitic mass] 31.0 pg Normal 26.7-34.0 [facility] Comment on above: Performed By: #### C BC #### [facility] [address] [place] [address] Dr. Vangie Devine MCHC (RBC) [Mass/Vol] 32.6 g/dL Normal 29.9-35.2 [facility] Comment on above: Performed By: #### C BC #### [facility] [address] [place] [address] Dr. Vangie Devine MCV (RBC) [Entitic vol] 95.1 fL Normal 81.0-99.0 [facility] Comment on above: Performed By: #### C BC #### [facility] [address] [place] [address] Dr. Vangie Devine MONO # 0.5 103/ul Normal 0.3-0.8 [facility] Comment on above: Performed By: #### C BC #### [facility] [address] [place] [address] Dr. Vangie Devine Monocytes/100 WBC (Bld) 6.8 % Normal 1.7-12.0 [facility] Comment on above: Performed By: #### C BC #### [facility] [address] [place] [address] Dr. Vangie Devine NEUT # 4.9 103/ul Normal 1.4-6.5 [facility] Comment on above: Performed By: #### C BC #### [facility] [address] [place] [address] Dr. Vangie Devine Neutrophils/100 WBC (Bld) 61.5 % Normal 43.0-75.0 [facility] Comment on above: Performed By: #### C BC #### [facility] [address] [place] [address] Dr. Vangie Devine Platelet mean volume (Bld) [Entitic vol] 11.0 fL Normal 9.5-13.5 [facility] Comment on above: Performed By: #### C BC #### [facility] [address] [place] [address] Dr. Vangie Devine PLT 224 103/ul Normal 150-450 [facility] Comment on above: Performed By: #### C BC #### [facility] [address] [place] [address] Dr. Vangie Devine RBC 4.48 106/ul Normal 4.20-5.40 [facility] Comment on above: Performed By: #### C BC #### [facility] [address] [place] [address] Dr. Vangie Devine WBC 7.9 103/ul Normal 4.0-11.0 [facility] Comment on above: Performed By: #### C BC #### [facility] [address] [place], [place] [address] Dr. Vangie Devine LIPID PROFILEon 03-28-2022 CHOL-HDL RATIO NORM SEE BELOW Normal [facility] Comment on above: Result Comment: 3.3 - 4.4 LOW RISK 4.4 - 7.1 AVERAGE RISK 7.1 - 11.0 MODERATE RISK >11.0 HIGH RISK Performed By: #### C BC #### [facility] [address] [place] [address] [address] Vangie Devine Cholesterol [Mass/Vol] 103 mg/dL Normal <=200 [facility] Comment on above: Performed By: #### C BC #### [facility] [address] [place] [address] Dr. Vangie Devine Cholesterol in HDL [Mass/Vol] 39 mg/dL Critically low 40-60 [facility] Comment on above: Performed By: #### C BC #### [facility] [address] [place] [address] Dr. Vangie Devine Cholesterol in LDL [Mass/Vol] 46.8 mg/dL Normal [facility] Comment on above: Performed By: #### C BC #### [facility] [address] [place] [address] Dr. Vangie Devine Cholesterol.total/Chol esterol in HDL [Mass ratio] 2.6 {ratio} Normal [facility] Comment on above: Performed By: #### C BC #### [facility] [address] [place], [place] [id number] Dr. Vangie Devine HDL NORMAL > or = 60 mg/dl - LO W CARDIOVASCULAR RISK <40 mg/dl - HIGH CARDIOVASCULAR RISK Normal [facility] Comment on above: Performed By: #### C BC #### [facility] [address] [id number] [address] Vangie Devine LDL CALC NORMAL SEE BELOW Normal [facility] Comment on above: Result Comment: <100 mg/dl OPTIMAL 100 - 129 mg/dl NEAR OR ABOVE OPTIMAL 130 - 159 mg/dl BORDERLINE HIGH 160 - 189 mg/dl HIGH >190 mg/dl VERY HIGH Performed By: #### C BC #### [facility] [address] [place] [address] Dr. Vangie Devine Triglyceride [Mass/Vol] 86 mg/dL Normal <=150 [facility] Comment on above: Performed By: #### C BC #### [facility] [address] [place] [address] Dr. Vangie Devine VLDL CALC 17.2 mg/dL Normal [facility] Comment on above: Performed By: #### C BC #### [facility] [address] [place] [address] Dr. Vangie Devine PROF 14(COMP METB)on 022 Albumin [Mass/Vol] 3.5 g/dL Normal 3.4-5.0 [facility] Comment on above: Performed By: #### C BC #### [facility] [address] [place] [address] Dr. Vangie Devine Albumin/Globulin [Mass ratio] 0.9 {ratio} Normal [facility] Comment on above: Performed By: #### C BC #### [facility] [address] [place] [address] Dr. Vangie Devine ALP [Catalytic activity/Vol] 127 U/L Critically high 46-116 [facility] Comment on above: Performed By: #### C BC #### [facility] [address] [place] [address] Dr. Vangie Devine ALT [Catalytic activity/Vol] 29 U/L Normal 14-59 [facility] Comment on above: Performed By: #### C BC #### [facility] [address] [place] [address] Dr. Vangie Devine Anion gap [Moles/Vol] 15.3 mmol/L Normal [facility] Comment on above: Performed By: #### C BC #### [facility] [address] [place] [address] Dr. Vangie Devine AST [Catalytic activity/Vol] 21 U/L Normal 15-37 [facility] Comment on above: Performed By: #### C BC #### [facility] [address] [place] [address] Dr. Vangie Devine Bilirubin [Mass/Vol] 0.5 mg/dL Normal 0.2-1.0 [facility] Comment on above: Performed By: #### C BC #### [facility] [address] [place] [address] Dr. Vangie Devine Calcium [Mass/Vol] 8.9 mg/dL Normal 8.5-10.1 [facility] Comment on above: Performed By: #### C BC #### [facility] [address] [address] [address] Vangie Devine Chloride [Moles/Vol] 101 mmol/L Normal 98-107 [facility] Comment on above: Performed By: #### C BC #### [facility] [address] [place] [address] Dr. Vangie Devine CO2 [Moles/Vol] 25.8 mmol/L Normal 21.0-32.0 [facility] Comment on above: Performed By: #### C BC #### [facility] [address] [place] [address] Dr. Vangie Devine Creatinine [Mass/Vol] 0.89 mg/dL Normal 0.55-1.02 [facility] Comment on above: Performed By: #### C BC #### [facility] [address] [place] [address] Dr. Vangie Devine EGFR-AF [place] >60 Normal >=60 [facility] Comment on above: Performed By: #### C BC #### [facility] [address] [place] [address] Dr. Vangie Devine EGFR-NON AF [place] >60 Normal >=60 [facility] Comment on above: Performed By: #### C BC #### [facility] [address] [place] [address] Dr. Vangie Devine Globulin (S) [Mass/Vol] 4.1 g/dL Normal [facility] Comment on above: Performed By: #### C BC #### [facility] [address] [place] [address] Dr. Vangie Devine Glucose [Mass/Vol] 94 mg/dL Normal 74-106 [facility] Comment on above: Performed By: #### C BC #### [facility] [address] [place] [address] [address] Vangie Devine Potassium [Moles/Vol] 5.1 mmol/L Normal 3.5-5.1 [facility] Comment on above: Performed By: #### C BC #### [facility] [address] [place], [place] [address] Dr. Vangie Devine Protein [Mass/Vol] 7.6 g/dL Normal 6.4-8.2 [facility] Comment on above: Performed By: #### C BC #### [facility] [address] [place] [address] [address] Vangie Devine Sodium [Moles/Vol] 137 mmol/L Normal 136-145 [facility] Comment on above: Performed By: #### C BC #### [facility] [address] [place] [address] [address] Vnagie Devine Urea nitrogen [Mass/Vol] 9.0 mg/dL Normal 7.0-18.0 [facility] Comment on above: Performed By: #### C BC #### [facility] [address] [address] [address] Vangie Devine Urea nitrogen/Creatinine [Mass ratio] 10.1 mg/mg Normal [facility] Comment on above: Performed By: #### C BC #### [facility] [address] [place] [address] [address] Vangie Devine Cardiac Stress Teston 2021 Cardiac Stress Test [address], [address] [place] [address] Exercise Stress Test Patient Name: JAVIER Ordering Physician: [id number] Nolan Garibay DO [facility] Study Date: 01/26/2022 Reading Physician: [id number] Myke Levin MD MRN/PID: [id number] Supervising [id number] Myke Levin Physician: Accession/Order#: [id number] Referring Physician: [id number] NOLAN GARIBAY Date of : 1970 PCP: Gender: F Fellow: Height: 147.32 cm Nurse: Joe Elmore RN Weight: 84.37 kg Cash Clerk: ADE BSA: 1.77 m2 Technologist: BMI: 38.87 kg/m2 Additional Staff: Age: 52 years cc report to: Patient Location: cc report to: [id number] Nolan Garibay DO Study Type: Cardiac Stress Test Diagnosis/ICD: I21.09-ST elevation (STEMI) myocardial infarction involving other coronary artery of anterior wall; I51.3-Intracardiac thrombosis, not elsewhere classified Indication: TN Procedure/CPT: Stress Test Interpretation-83240; Stress Test Supervision-[id number] Falls Risk: Low: Patient has low risk [...] rhythm. Normal sinus rhythm with anteroseptal wall TN. Stress Stage Data: + +-- -+------+-------+ HR [...] The adequate level of stress was achieved. [id number] Myke Levin MD Electronically signed on 01/26/2022 at 5:41:[address] [facility] Cardiac Stress Test MP[facility] [facility] DO Work Phone: Tobacco Screening.on 022 Adult depression screening assessment Yes -[facility] [facility] 250 DO Work Phone: Adult depression screening assessment No -[facility] [facility] 250 DO Work Phone: Fall risk assessment c) Not medically indicated -[facility] [facility] 250 DO Work Phone: Tobacco use status CPHS b) No [facility] Heart[facility] y 250 DO Work Phone: Tobacco Screening. 0-Not at all [facility] Heart[facility] y 250 DO Work Phone: Tobacco Screening. 1-Several days [facility] DO Work Phone: Tobacco Screening. 2-More than half the days [facility] Work Phone: Tobacco Screening. Not difficult at all [facility] DO Work Phone: Laboratory - Coagulationon 0 01-17-2022 INR Coag (Bld) [Relative time] 1.56 {INR} [facility] DO Work Phone: PROTIMEon 01-17-2022 INR Coag (PPP) [Relative time] 1.56 {INR} Normal [facility] Comment on above: Performed By: #### C JOBY #### [facility] [address] [place] [address] Dr. Vangie Devine INR GUIDELINES SEE BELOW Normal [facility] Comment on above: Result Comment: MARY ANN RED INR: 2.0 - 3.0 CONDITIONS NOT LISTED BELOW 2.5 - 3.5 FOR PROSTHETIC HEART VALVE REPLACEMENT 2.5 - 3.5 RECURRENT THROMBOSIS Performed By: #### C JOBY #### [facility] [address] [place] [address] Dr. Vangie Devine PT Coag (PPP) [Time] 16.4 s Critically high 9.0-11.6 [facility] Comment on above: Performed By: #### C JOBY #### [facility] [address] [place] [address] Dr. Vangie Devine Activated partial thrombopla stin time (aPTT) in platelet poor plasma by coagulation aOrdered By: Isidra Garibay on 01-14-2022 aPTT Coag (PPP) [Time] 34.5 s 25.1-36.5 Fi [facility] Creatinine and Glomerular fi ltration rate.predicted panel (S/P/Bld)Ordered By: Isidra Garibay on 01-14-2022 Creatinine [Mass/Vol] 0.69 mg/dL 0.44-1.03 [facility] Estimated glomerular filtrat ion rate (GFR) non- AmericanOrdered By: Isidra Garibay on 01-14-2022 GFR/1.73 sq M.predicted among non-blacks MDRD (S/P/Bld) [Vol rate/Area] > 60 mL/Min [facility] - CoagulationOrde red By: Isidra Garibay on 01-14-2022 PT Coag (PPP) [Time] 17.7 s 9.0-12.9 [facility] No Panel InformationOrdered By: Isidra Garibay on 01-14-2022 Estimated GFR () > 60 mL/Min [facility] Comment on above: GFR estimated refere nce range: According to KDOQI guidelines, <60 ml/min/1.73m2 is sufficient to diagnose a patient with chronic kidney disease. Pharmacy Creatinine Clearance (Chem 94.39 [facility] Platelet poor plasma interna tional normalized ratio (INR) by coagulation assay (relatOrdered By: Isidra Garibay on 01-14-2022 INR Coag (PPP) [Relative time] 1.6 {INR} [facility] Comment on above: INR Therapeutic Rang [...] with mechanical heart valves: 3 - 4.5 Serum or plasma calcium ivana urement (mass/volume)Ordered By: Isidra Garibay on 01-14-2022 Calcium [Mass/Vol] 8.5 mg/dL 8.2-10.2 [facility] Serum or plasma chloride francesca surement (moles/volume)Ordered By: Isidra Garibay on 01-14-2022 Chloride [Moles/Vol] 99 mmol/L 95-114 [facility] Serum or plasma glucose ivana urement (mass/volume)Ordered By: Isidra Garibay on 01-14-2022 Glucose [Mass/Vol] 101 mg/dL 70-100 [facility] Comment on above: ADA recommended refe rence range Random Glucose Reference Range is dependent on time and content of last meal. Glucose of more than 200 mg/dL in a nonstressed, ambulatory subject supports the diagnosis of Diabetes Mellitus. Serum or plasma potassium me asurement (moles/volume)Ordered By: Isidra Garibay on 01-14-2022 Potassium [Moles/Vol] 4.2 mmol/L 3.5-5.1 [facility] Serum or plasma sodium measu rement (moles/volume)Ordered By: Isidra Garibay on 01-14-2022 Sodium [Moles/Vol] 129 mmol/L 136-146 [facility] Serum or plasma total carbon dioxide measurement (moles/volume)Ordered By: Isidra Garibay on 01-14-2022 CO2 [Moles/Vol] 21.8 mmol/L 22.0-30.0 [facility] Serum or plasma urea nitroge n measurement (mass/volume)Ordered By: Isidra Garibay on 01-14-2022 Urea nitrogen [Mass/Vol] 8 mg/dL 9-23 [facility] Albumin [Mass/volume] in Ser um or PlasmaOrdered By: Isidra Garibay on 01-11-2022 Albumin [Mass/Vol] 2.9 g/dL 3.2-5.5 [facility] Cholesterol [Mass/volume] in Serum or PlasmaOrdered By: Isidra Garibay on 01-11-2022 Cholesterol [Mass/Vol] 109 mg/dL 140-200 [facility] Comment on above: Chol less than 200 m g/dl low risk Chol 201-239 mg/dl borderline risk Chol 240 mg/dl and greater high risk Cholesterol in LDL Calc [Mas s/Vol]Ordered By: Isidra Garibay on 01-11-2022 Cholesterol in LDL [Mass/Vol] 49 mg/dL 0-100 [facility] Comment on above: LDL ATP III CLASSIFI CATION LDL less than 100 mg/dL Optimal LDL 100-129 mg/dL Near or above optimal LDL 130-159 mg/dL Borderline high LDL 160-189 mg/dL High LDL greater than 189 mg/dL Very high Cholesterol in VLDL Calc [Ma ss/Vol]Ordered By: Isidra Garibay on 01-11-2022 Cholesterol in VLDL [Mass/Vol] 16 mg/dL [facility] Globulin Calc (S) [Mass/Vol] Ordered By: Isidra Garibay on 01-11-2022 Globulin (S) [Mass/Vol] 3.1 g/dL [facility] Glucose Glucometer (BldC) [M ass/Vol]Ordered By: Isidra Garibay on 01-11-2022 Glucose [Mass/Vol] 118 mg/dL [facility] Comment on above: Random Glucose Refer ence Range is dependent on time and content of last meal. Glucose of more than 200 mg/dL in a nonstressed, ambulatory subject supports the diagnosis of Diabetes Mellitus. No Panel InformationOrdered By: Isidra Garibay on 01-11-2022 Bedside Glucose Comment Glu2: cleaned meter [facility] Protein [Mass/volume] in Ser um or PlasmaOrdered By: Isidra Garibay on 01-11-2022 Protein [Mass/Vol] 6.0 g/dL 6.1-7.9 [facility] Serum or plasma alanine gore otransferase measurement without P-5'-P (enzymatic activiOrdered By: Isidra Garibay on 01-11-2022 ALT No additional P-5'-P [Catalytic activity/Vol] 58 U/L 10-60 [facility] Serum or plasma albumin/glob ulin mass ratioOrdered By: Isidra Garibay on 01-11-2022 Albumin/Globulin [Mass ratio] 0.9 {ratio} [facility] Serum or plasma alkaline carl sphatase measurement (enzymatic activity/volume)Ordered By: Isidra Garibay on 01-11-2022 ALP [Catalytic activity/Vol] 85 U/L 32-92 [facility] Serum or plasma aspartate am inotransferase measurement (enzymatic activity/volume)Ordered By: Isidra Garibay on 01-11-2022 AST [Catalytic activity/Vol] 212 U/L 10-42 [facility] Serum or plasma high density lipoprotein (HDL) cholesterol measurementOrdered By: Isidra Garibay on 01-11-2022 Cholesterol in HDL [Mass/Vol] 43 mg/dL 35-85 [facility] Comment on above: HDL CHOL ATP-III CLA SSIFICATION Cardiovascular Risk HDL > or equal to 60 mg/dL LOW HDL < 40 mg/dL HIGH Serum or plasma total biliru bin measurement (mass/volume)Ordered By: Isidra Garibay on 01-11-2022 Bilirubin [Mass/Vol] 0.6 mg/dL 0.3-1.2 [facility] Serum or plasma total choles terol/high density lipoprotein (HDL) cholesterol mass ratOrdered By: Isidra Garibay on 01-11-2022 Cholesterol.total/Chol esterol in HDL [Mass ratio] 2.5 {ratio} [facility] Triglyceride [Mass/volume] i n Serum or PlasmaOrdered By: Isidra Garibay on 01-11-2022 Triglyceride [Mass/Vol] 83 mg/dL 35-149 [facility] Comment on above: TRIG ATP III CLASSIF ICATION TRIG less than 150 mg/dL Normal TRIG 150-199 mg/dL Borderline high TRIG 200-500 mg/dL High TRIG greater than 500 mg/dL Very high Standard traceable to the Center for Disease Conrtrol and Prevention (CDC) test method. Troponin I.cardiac [Mass/vol ume] in Serum or Plasma by High sensitivity methodOrdered By: Isidra Garibay on 01-11-2022 Troponin I.cardiac High sensitivity method [Mass/Vol] 44659 pg/mL 0-15 [facility] Comment on above: Results called at 0805 on 01/11/22 AMYLASEon 01-10-2022 Amylase [Catalytic activity/Vol] 37 U/L Normal 25-115 [facility] Comment on above: Performed By: #### C BC #### [facility] [address] [address] [address] Vangie Devine CARDIAC CHASTITY ADMITon 022 CK [Catalytic activity/Vol] 206 U/L Critically high 26-192 [facility] Comment on above: Performed By: #### C BC #### [facility] [address] [place], [place] [address] Dr. Vangie Devine CK.MB [Mass/Vol] 3.65 ng/mL Critically high <=3.60 [facility] Comment on above: Performed By: #### C BC #### [facility] [address] [place] [address] Dr. Vangie Devine HSTROP 80.4 pg/mL Critically high 4.0-51.3 [facility] Comment on above: Result Comment: CUT- OFF POINTS HAVE BEEN ESTABLISHED BASED ON THE FOURTH UNIVERSAL DEFINITIONS OF MYOCARDIAL INFARCTION. THE UPPER REFERENCE LIMIT (URL) OF TROPONIN, DEFINED THE 99TH PERCENTILE OF cTnI DISTRIBUTION IN A REFERENCE POPULATION, HAS BEEN CONFIRMED THE DECISION THRESHOLD FOR TN DIAGNOSIS. Performed By: #### C BC #### [facility] [address] [place] [address] Dr. Vangie Devine AJ 119 ng/mL Critically high 9-82 [facility] Comment on above: Performed By: #### C BC #### [facility] [address] [place] [address] Dr. Vangie Devine CBC W MANUAL DIFFon 01-11-20 22 ATYPICAL LYMPH # 0.93 103/ul Normal [facility] Comment on above: Performed By: #### C BCMAN #### [facility] [address] [place] [address] Dr. Vangie Devine ATYPICAL LYMPH % 3 % Normal [facility] Comment on above: Performed By: #### C BCMAN #### [facility] [address] [place] [address] Dr. Vangie Devine BAND # 1.6 103/ul Critically high 0.0-0.3 [facility] Comment on above: Performed By: #### C BCMAN #### [facility] [address] [place] [address] Dr. Vangie Devine BAND % 5 % Normal 0-5 [facility] Comment on above: Performed By: #### C BCMAN #### [facility] [address] [place] [address] Dr. Vangie Devine BASOM # 0.00 103/ul Normal 0.00-0.10 [facility] Comment on above: Performed By: #### C BCMAN #### [facility] [address] [place] [address] Dr. Vangie Devine BASOM % 0.0 % Critically low 0.2-2.0 [facility] Comment on above: Performed By: #### C JOBY #### [facility] [address] [place] [address] Dr. Vangie Devine BLAST # 0.0 103/ul Normal [facility] Comment on above: Performed By: #### C JOBY #### [facility] [address] [place] [address] Dr. Vangie Devine BLAST % Normal [facility] Comment on above: Performed By: #### C JOBY #### [facility] [address] [place] [address] Dr. Vangie Devine CORRECTED WBC Normal 4.0-11.0 [facility] Comment on above: Performed By: #### C JOBY #### [facility] [address] [place] [address] Dr. Vangie Devine EOS # 0.00 103/ul Normal 0.00-0.70 [facility] Comment on above: Performed By: #### C JOBY #### [facility] [address] [place] [address] Dr. Vangie Devine EOS% 0.0 % Critically low 0.9-7.0 [facility] Comment on above: Performed By: #### C JOBY #### [facility] [address] [place] [address] Dr. Vangie Devine HCT 42.0 % Normal 36.0-48.0 [facility] Comment on above: Performed By: #### C JOBY #### [facility] [address] [place] [address] Dr. Vangie Devine HGB 14.6 g/dl Normal 12.0-16.0 [facility] Comment on above: Performed By: #### C JOBY #### [facility] [address] [place] [address] Dr. Vangie Devine HYPERSEG NEUT 1+ Normal [facility] Comment on above: Performed By: #### C JOBY #### [facility] [address] [place] [address] Dr. Vangie Devine LYMPHM # 4.03 103/ul Critically high 1.20-3.80 [facility] Comment on above: Performed By: #### C JOBY #### [facility] [address] [address] [address] Vangie Devine LYMPHM% 13.0 % Critically low 20.5-60.0 [facility] Comment on above: Performed By: #### C JOBY #### [facility] [address] [address] [address] Vangie Devine MCH 32.7 pg Normal 26.7-34.0 [facility] Comment on above: Performed By: #### C JOBY #### [facility] [address] [address] [address] Vangie Devine MCHC 34.8 g/dl Normal 29.9-35.2 [facility] Comment on above: Performed By: #### C JOBY #### [facility] [address] [address] [address] Vangie Devine MCV 94.2 fL Normal 81.0-99.0 [facility] Comment on above: Performed By: #### C JOBY #### [facility] [address] [address] [address] Vangie Devine METAMYELOCYTE # 1.2 103/ul Normal [facility] Comment on above: Performed By: #### C JOBY #### [facility] [address] [place] [address] [address] Vangie Devine METAMYELOCYTE % 4 % Normal [facility] Comment on above: Performed By: #### C JOBY #### [facility] [address] [address] [address] Vangie Devine MONOM# 0.93 103/ul Critically high 0.30-0.80 [facility] Comment on above: Performed By: #### C JOBY #### [facility] [address] [address] [address] Vangie Devine MONOM% 3.0 % Normal 1.7-12.0 [facility] Comment on above: Performed By: #### C JOBY #### [facility] [facility] [address] [address] [address] Vangie Devine MPV 10.4 fL Normal 9.5-13.5 [facility] Comment on above: Performed By: #### C JOBY #### [facility] [address] [address] [address] Vangie Devine MYELOCYTE # 0.9 103/ul Normal [facility] Comment on above: Performed By: #### C JOBY #### [facility] [address] [address] [address] Vangie Devine MYELOCYTE % 3 % Normal [facility] Comment on above: Performed By: #### C JOBY #### [facility] [address] [address] [address] Vangie Devine NRBC 0 Normal [facility] Comment on above: Performed By: #### C JOBY #### [facility] [address] [address] [address] Vangie Devine PLT 460 103/ul Critically high 150-450 [facility] Comment on above: Performed By: #### C JOBY #### [facility] [address] [address] [address] Vangie Devine RBC 4.46 106/ul Normal 4.20-5.40 [facility] Comment on above: Performed By: #### C JOBY #### [facility] [address] [place] [address] Dr. Vangie Devine RDW 12.6 % Normal 11.0-15.0 [facility] Comment on above: Performed By: #### C JOBY #### [facility] [address] [address] [address] Vangie Devine SEG # 21.39 103/ul Critically high 1.40-6.50 [facility] Comment on above: Performed By: #### C JOBY #### [facility] [address] [address] [address] Vangie Devine SEG % 69.0 % Normal 43.0-75.0 [facility] Comment on above: Performed By: #### C JOBY #### [facility] [id number] Vangie Devine WBC 31.0 103/ul Critically high 4.0-11.0 [facility] Comment on above: Performed By: #### Baldemar HEMPHILL #### [facility] [address] [place], [place] [address] Dr. Vangie Devine Covid-19 PCR ([facility])on 12-14 SARS-CoV-2 (COVID-19) RNA SAMIR+probe Ql (Unsp spec) Not detected Normal NOT DETECTED [facility] Comment on above: Result Comment: When diagnostic [...] for this test is supported by the Machine Engraver of Health and Human Service's declaration that [...] no longer be used). Performed By: #### Baldemar HEMPHILL #### [facility] [address] [place], [place] [address] Dr. Vangie Devine LIPASEon 01-10-2022 Lipase [Catalytic activity/Vol] 63.0 U/L Critically low 73.0-393.0 [facility] Comment on above: Performed By: #### Baldemar HEMPHILL #### [facility] [address] [place] [address] Dr. Vangie Devine Laboratory - Chemistry and C hemistry - challengeOrdered By: Isidra Garibay on 01-10-2022 Magnesium [Mass/Vol] 2.0 mg/dL 1.6-2.6 [facility] PROTIMEon 01-10-2022 INR Coag (PPP) [Relative time] 1.01 {INR} Normal [facility] Comment on above: Performed By: #### P TT, PT #### [facility] [address] [place] [address] Dr. Vangie Devine INR GUIDELINES SEE BELOW Normal [facility] Comment on above: Result Comment: MARY ANN RED INR: 2.0 - 3.0 CONDITIONS NOT LISTED BELOW 2.5 - 3.5 FOR PROSTHETIC HEART VALVE REPLACEMENT 2.5 - 3.5 RECURRENT THROMBOSIS Performed By: #### P TT, PT #### [facility] [address] [place], [place] [address] Dr. Vangie Devine PT Coag (PPP) [Time] 10.9 s Normal 9.0-11.6 [facility] Comment on above: Performed By: #### P TT, PT #### [facility] [address] [place] [address] Dr. Vangie Devine PTTon 01-10-2022 aPTT Coag (Bld) [Time] 26.3 s Normal 22.3-36.2 [facility] Comment on above: Performed By: #### P TT, PT #### [facility] [address] [place] [address] Dr. Vangie Devine XR CHEST 1 Von 01-10-2022 XR CHEST 1 V CLINICAL HISTORY: Chest pain COMPARISON: Chest radiograph 12/20/2015 at [facility]. FINDINGS: Portable AP view of the chest obtained. Cardiomediastinal silhouette is normal. Lungs are clear, no evidence of infiltrate, suspicious nodule, or mass. No evidence of significant pleural fluid on this portable projection. No acute bony abnormality. IMPRESSION: No acute abnormality. Electronically authenticated by: MADELAINE ALVA Date: 2022-01-10 10:16 Normal [facility] WRIST LEFT 3 VWSon 2 WRIST LEFT 3 S [facility] Department of Radiology [address] [place] [id number] Patient Name: JAVIER LINK : 1970 Sex: F Age: Race: White Pt. 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 Electronically signed: QUANG RUFFIN. Transcribed by: [email or web address], User Resident: Electronically Signed by: QUANG RUFFIN @ 09/10/2021 09:04 AM Normal [facility] Comment on above: Order Comment: Evalu ate Operative Reporton Operative Report MR#: [id number] S [facility] Pt. Name: Javier Link Room #: 0C Discharge Date: Birthdate: 1970 OPERATIVE REPORT DATE OF SURGERY: 07/22/2021 SURGEON: Rafi Biswas M.D. PREOPERATIVE DIAGNOSIS: Kienbock's disease, stage IV, left lunate. POSTOPERATIVE DIAGNOSIS: Kienbock's disease, stage IV, left lunate. PROCEDURE: Proximal row carpectomy, left wrist. BATTERBOARD SETTER: Maricarmen Liao M.D. ANESTHESIA: Regional. INDICATION FOR [...] took some 3-0 TiCron and put a bqersd-go-iezlv suture in that dorsal portion of the TFCC right near the ulnar styloid where the small tear was. The volar part of the TFCC looks good. Once that was in, the dorsal capsule was closed with multiple juwrxl-im-zsuul sutures of 2-0 Vicryl. The subcutaneous tissue [...] Biswas M.D. Date Trans: 07/22/2021 10:32 A/mmo [id number] cc: Moriah Mack M.D. [address] [place] [id number] Normal [facility] POC GLUCOSE LABon 07-22-2021 Glucose [Mass/Vol] 85 mg/dL Normal 70-100 [facility] Comment on above: Performed By: #### 8 [id number] #### [address] MRI WRIST WO CONTRAST RIGHTo n 06-09-2021 MRI WRIST WO CONTRAST RIGHT [facility] Department of Radiology [address] [place] [id number] Patient Name: JAVIER LINK : 1970 Sex: F Age: Race: White Pt. 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 Electronically signed: Liz Harp. Transcribed by: [email or web address], User Resident: Electronically Signed by: LIZ HARP @ 06/11/2021 09:46 AM Normal [facility] Comment on above: Order Comment: Evide nce Keinbock's R wrist on outside x-ray, evaluate for staging and surgical planning. , Side: RIGHT WRIST LEFT 3 [facility] 1 WRIST LEFT 3 [facility] Department of Radiology [address] [place] [phone] Patient Name: JAVIER LINK : 1970 Sex: F Age: Race: White Pt. 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 COMPARISON: None. IMPRESSION: 1. Subtle sclerosis lunate suggests possibility of osteonecrosis. No significant ulnar variance. 2. No acute fracture. No dislocation. Likely remote injury ulnar styloid. 3. Borderline widening scapholunate interval. 4. Multiple moderate triscaphe and radiocarpal arthritis. Electronically signed: Alonso Iglesias. Transcribed by: [email or web address], User Resident: Electronically Signed by: ALONSO IGLESIAS @ 05/19/2021 12:56 PM Normal [facility] Comment on above: Order Comment: evalu ate WRIST RIGHT 3 Son 05-18-20 21 WRIST RIGHT 3 S [facility] Department of Radiology [address] [place] [id number] Patient Name: JAVIER LINK : 1970 [...] variance. Electronically signed: Alonso Iglesias. Transcribed by: [email or web address], User Resident: Electronically Signed by: ALONSO IGLESIAS @ 05/19/2021 12:55 PM Normal [facility] Comment on above: Order Comment: evalu ate Vital Signs Date Time Vital Sign Value Performing Clinician Facility 01-20-2022 12:07-0400 Diastolic blood pressure 58 mm[Hg] No PCP None [facility] [address] DO Work Phone: 01-20-2022 12:07-0400 Systolic blood pressure 105 mm[Hg] No PCP None [facility] [address] DO Work Phone: 01-20-2022 11:58-0400 Body height 147.32 cm No PCP None [facility] DO Work Phone: 01-20-2022 11:58-0400 Body mass index (BMI) [Ratio] 38.87 kg/m2 No PCP None [facility] [address] DO Work Phone: 01-20-2022 11:58-0400 Body surface area Derived from formula 1.77 m2 No PCP None [facility] DO Work Phone: 01-20-2022 11:58-0400 Body weight 84.37 kg No PCP None [facility] DO Work Phone: 01-20-2022 11:58-0400 Diastolic blood pressure 62 mm[Hg] No PCP None [facility] [facility] DO Work Phone: 01-20-2022 11:58-0400 Heart rate 60 /min No PCP None [facility] DO Work Phone: 01-20-2022 11:58-0400 Systolic blood pressure 110 mm[Hg] No PCP None [facility] [facility] DO Work Phone: 01-20-2022 11:58-0400 6 1 No PCP None [facility] DO Work Phone: Comment on above: PHQ-9 TS 01-14-2022 13:04-0400 Heart rate 74 /min DO W Clarke Garibay Work Phone: [facility] 01-14-2022 13:04-0400 Respiratory rate 20 /min DO W Clarke Yusufdon Work Phone: [facility] 01-14-2022 12:00-0400 Body temperature 98.4 [degF] DO W Clarke Yusufdon Work Phone: [facility] 01-14-2022 12:00-0400 Diastolic blood pressure 69 mm[Hg] DO W Clarke Bebo Work Phone: [facility] 01-14-2022 12:00-0400 SaO2% (BldA) [Mass fraction] 96 % DO W Clarke Yusufdon Work Phone: [facility] 01-14-2022 12:00-0400 Systolic blood pressure 98 mm[Hg] DO W Clarke Bebo Work Phone: [facility] 01-14-2022 04:55-0400 Body weight 85 kg DO W Clarke Garibay Work Phone: [facility] 01-12-2022 08:00-0400 Inhaled oxygen flow rate 3 L/min DO W Clarke Garibay Work Phone: [facility] 01-11-2022 16:45-0400 Inhaled oxygen concentration 50 % DO W Clarke Garibay Work Phone: [facility] 01-11-2022 00:00-0400 35 1 No PCP None [facility] [facility] DO Work Phone: Comment on above: [email or web address] 01-10-2022 13:01-0400 Body height 147.32 cm DO W Clarke Garibay Work Phone: [facility] 01-10-2022 13:01-0400 Body mass index (BMI) [Ratio] 39.2 kg/m2 DO W Clarke Garibay Work Phone: [facility] Encounters Encounter Date Encounter Type Care Provider Facility Start: 05-21-2024 ambulatory [facility] Start: 04-30-2024 ambulatory [facility] Start: 03-15-2024 ambulatory [facility] Start: 02-27-2024 End: 02-27-2024 ambulatory [facility] Start: 02-07-2024 ambulatory DELL WEAVER [facility] Start: 01-22-2024 ambulatory [facility] Start: 01-22-2024 Encounter for preprocedural cardiovascular examination [facility] Start: 01-12-2024 End: 01-12-2024 ambulatory YELENA CRUZ [facility] Start: 07-31-2023 End: 07-31-2023 ambulatory CIRILO RUBALCAVA [facility] Start: 07-18-2023 End: 07-18-2023 ambulatory ALTON PARKS [facility] Start: 06-28-2023 End: 06-28-2023 ambulatory DEENA BENTON [facility] Start: 05-23-2023 End: 05-23-2023 ambulatory RAFI BISWAS [facility] Start: 12-21-2022 End: 12-22-[address] DOCTOR [...] Start: 02-02-2022 End: 05-06-[address] DOCTOR MISC Facility:[facility] Start: 01-27-2022 Chart Update No PCP None [facility] [facility] DO Work Phone: Start: 01-20-2022 End: 02-11-2022 ambulatory SHAIKH Sergo HERRERA Facility:[facility] Start: 01-20-2022 Transitional care moni clark srvc 7 day discharge No PCP None [facility] DO Work Phone: Start: 01-17-2022 End: 01-18-[address] NOLAN GARIBAY Facility:[facility] Start: 01-10-2022 End: 01-14-2022 Evaluation and management of inpatient DO W Clarke Garibay Work Phone: [facility] Start: 01-10-2022 End: 01-10-2022 ambulatory HASMUKH KATZ . Facility:[facility] Start: 07-22-2021 End: 07-23-2021 ambulatory RAFI BISWAS Facility:[facility] Procedures Date Procedure Procedure Detail [...] Nolan Garibay, Status: Pen, Time: 10:50 AM [facility] [facility] DO Work Phone: Start: 03-21-2022 FUV, Provider: Beth Hull, Status: Pen, Time: 8:30 AM FUV, Provider: Beth Hull, Status: Pen, Time: 8:30 AM [facility] [facility] DO Work Phone: Start: 03-14-2022 ECHO, Provider: [facility] ULTRASOUND 01,[id number], Status: Pen, Time: 10:45 AM ECHO, Provider: L[facility]AS [facility] ULTRASOUND 01,[id number], Status: Pen, Time: 10:45 AM [facility] [facility] DO Work Phone: Start: 01-26-2022 STRESS MARK, Provider : [facility] NUCLEAR 01,[id number], Status: Pen, Time: 2:00 PM STRESS MARK, Provider: [facility] NUCLEAR 01,[id number], Status: Pen, Time: 2:00 PM [facility] DO Work Phone: Patient Education Coronary Angio plasty (DC) Angina (DC) Drug Eluting Stents [facility] Work Phone: Patient referral [facility] Work Phone: Payers Date Payer Category Payer Medicare [id number] 2019 Unknown [id number] 1970 Unknown [id number] 2.16.8 40.1.256623.3.579.2.647 1970 Unknown [id number] 2.16.84 0.1.557325.3.579.2.593 1970 Unknown [id number] 2.16.84 0.1.474731.3.579.2.593 1970 Unknown [id number] 2.16.84 0.1.502218.3.579.2.593 1970 Unknown [id number] 2.16.84 0.1.664605.3.579.2.593 1970 Unknown [id number] 2.16.84 0.1.273717.3.579.2.593 1970 Unknown [id number] 2.16.84 0.1.281988.3.579.2.593 1970 Unknown [id number] 2.16.84 0.1.511685.3.579.2.593 1971 Unknown [id number] 2.16.84 0.1.140642.3.579.2.593 1971 Unknown [id number] 2.16.84 0.1.297890.3.579.2.593 1971 Unknown [id number] 2.16.84 0.1.043412.3.579.2.593 1971 Unknown [id number] 2.16.84 0.1.194964.3.579.2.593 1971 Unknown [id number] 2.16.84 0.1.898685.3.579.2.593 1971 Unknown [id number] 2.16.84 0.1.137199.3.579.2.593 1971 Unknown [id number] 2.16.84 0.1.599950.3.579.2.593 1971 Unknown [id number] 2.16.84 0.1.506992.3.579.2.593 1971 Unknown [id number] 2.16.84 0.1.451240.3.579.2.593 1971 Unknown [id number] 2.16.84 0.1.756317.3.579.2.593 1971 Unknown [id number] 2.16.84 0.1.137410.3.579.2.593 1971 Unknown [id number] 2.16.84 0.1.820934.3.579.2.593 1971 Unknown [id number] 2.16.84 0.1.546335.3.579.2.593 1959 Self-pay [id number] Unknown Unknown [id number] 2.16.84 0.1.398142.3.579.2.593 Unknown [id number] 2.16.8 40.1.224200.3.579.2.531 Social History Date Type Detail Facility Daily caffeine consumption Daily caffeine consumption [facility] Work Phone: Comment on above: 3-4; quit 1 week ago; Start: 01-10-2022 [facility] Start: 1970 Sex Assigned At Female F [facility] Medical Equipment Procedure Code Equipment Code Equipment Origin al Text Equipment Identifier Dates Drug-eluting coronary artery stent, ovg-[id number] lymer-coated ()[id number] FDA Start: 01-10-2022 Drug-eluting coronary artery stent, [id number] lymer-coated ()[id number] FDA Start: 01-10-2022 Goals Date Patient Goal Desired Activity /State Functional Status Date Assessment Result Facility 01-20-2022 PHQ-9 [id number] Mild (5-9) [facility] DO Work Phone: 01-14-2022 Functional status Patient at Baseline [facility] Work Phone: 01-10-2022 Functional status Disability Sta tus Patient at Baseline [facility] Work Phone: Mental Status Date Assessment Result Facility 01-10-2022 Cognitive function Cognitive Sta tus Patient at Baseline [facility] Work Phone: Clinical Notes 01-10-2022 to [...] All other systems reviewed and are negative. [facility] 01-12-2024 Note UTP CARDIOLOGY PROGR ESS NOTE HPI: Javier Link is a 53 y.o. female here for routine 6 month f/u HPI Pleasant 53 yo female presents for routine F/U for chronic systolic heart failure, CAD, and LV thrombus. Patient presents today with noted weight loss since last visit that she has been doing purposefully. She continues with cardiac rehab exercise at [facility]. She denies chest pain, shortness of breath, [...] 52-year-old woman. On 01/10/2022 she presented to [facility] with STEMI and was found to have [...] is enrolled in cardiac rehab at the [facility] and doing well with that. Anticoagulation clinic at the [facility] follows her warfarin levels. Testing: ECG 01/13/2022: [...] 28 mm skypoint, 2.5 x 18 mm [place]. An intra-aortic balloon pump was placed. Visit [...] syncope and le (more content not included)... [facility] 01-12-2024 Note HTN is well-controll ed with current med regimen and renal function stable [facility] 01-12-2024 Note [facility] II-currently eu volemic without exacerbation, no activity limiting symptoms Continue GDMT-aspirin, Lipitor, Coreg, Jardiance, Entresto and Aldactone with Diuretic therapy of Lasix 40 mg daily Monitor daily weights, I&O, fluid restriction 1.5-2L/day, renal function and electrolytes- [facility] 01-12-2024 Note Coronary artery dise ase is unchanged. Continue current medications. Cardiac status will be reassessed in 6 months. Continue goal-directed medical therapy with aspirin, Lipitor, Plavix, Coreg [facility] 01-12-2024 Note Lipid abnormalities are unchanged, well controlled; PCP monitoring LFT. Pharmacotherapy as ordered. Lipids will be reassessed annually. [facility] 01-12-2024 Note No thrombus noted on last 2 TTE [facility] 07-31-2023 Note Subjective Javier Link is a [...] for 2023 because she is switching to [facility] Medicare. Historical: Failed Class I topical steroids, [...] sun safety. Call for any acute issues. [facility] 06-28-2023 Note [place] Cardiology - [facility] Subjective Javier Link is a 53 [...] 52-year-old woman. On 01/10/2022 she presented to [facility] with STEMI and was found to have [...] is enrolled in cardiac rehab at the [facility] and doing well with that. Anticoagulation clinic at the [facility] follows her warfarin levels. Testing: ECG 01/13/2022: [...] 28 mm skypoint, 2.5 x 18 mm [place]. An intra-aortic balloon pump was placed. Visit [...] exertion NYHA class (more content not included)... 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 Patient was [...] right thumb C (more content not included)... [facility] 05-23-2023 Note Patient ID: Javier Link is [...] to verify the correct patient, procedure, equipment, customer support assistant and site/side marked as required. [facility] 10-31-2022 Note CARDIAC STRESS TEST Requesting Physician: [...] CAD evaluation with invasive stress test. [facility] 01-13-2022 Progress note Note Date/Time January 13, 2022 3:15pm [facility] [address] [place] [address] Cardiology Progress Note Signed Patient: Javier Link MR#: [id number] : 1970 Acct:[id number] Age/Sex: 51 / F Adm Date: 2 Loc: Room: [address] [place] [address] Type : ADM IN Attending Dr: Isidra [...] Status: Acute Documented By: Isidra Garibay DO 01/13/221512 Signed By: <Electronically signed by Isidra Garibay DO> 01/13/22 4699 [facility] Work Phone: 1(755) 741-597106-01-2022 Progress note Author Isidra Garibay [facility] January 12, 2022 3:16pm Note Date/Time January 12, 2022 3:16p m [facility] [address] [place] [address] Cardiology Progress Note Signed Patient: Javier Link MR#: [id number] : 1970 Acct:[id number] Age/Sex: 51 / F Adm Date: 2 Loc: Room: [address] [place] [address] Type : ADM IN Attending Dr: Isidra [...] <Electronically signed by Isidra Garibay DO> 01/12/22 1513 [facility] Work Phone: 1(537) 524-417605-31-2022 Progress note Author Isidra Garibay [facility] January 11, 2022 1:38pm Note Date/Time January 11, 2022 1:38p m [facility] [address] [place], [place] [id number] Cardiology Progress Note Signed Patient: Javier Link MR#: [id number] : 1970 Acct:[id number] Age/Sex: 51 / F Adm Date: 2 Loc: Room: 0B4937-4 Type : ADM IN Attending Dr: Isidra [...] ALT Alkaline Phosphatase Troponin I High Sens 19085 H* Total Protein Albumin Globulin Albumin/Globulin Ratio [...] ALT Alkaline Phosphatase Troponin I High Sens 512575 H* Total Protein Albumin Globulin Albumin/Globulin Ratio Triglycerides Cholesterol LDL Cholesterol, Calc VLDL Cholesterol HDL Cholesterol Cholesterol/HDL Ratio 01/10/22 01/10/22 01/10/22 20:42 21:57 23:37 APTT PHA Creatinine Clear Sodium Potassium Chloride Carbon Dioxide BUN Creatinine Est GFR ( Amer) Est GFR (Non-Af Amer) Glucose POC Glucose 148 Calcium Magnesium Total Bilirubin AST ALT Alkaline Phosphatase Troponin I High Sens [id number] H* 098646 H* Total Protein Albumin Globulin Albumin/Globulin Ratio [...] Alkaline Phosphatase 85 Troponin I High Sens 13189 H* Total Protein 6.0 L Albumin 2.9 [...] 01/11/22 1334 Signed By: <Electronically signed by Isidar Garibay DO> 01/11/22 1338 [facility] Work Phone: 1(721) 109-184405-30-2022 History and physical note Author Isidra Garibay [facility] January 10, 2022 12:14pm Note Date/Time January 10, 2022 10:30 am [facility] [address] [place] [address] Cardiology H&P Signed Patient: Javier Link MR#: [id number] : 1970 Acct:[id number] Age/Sex: 51 / F Adm Date: 2 Loc: Room: Type: [facility] Attending Dr: Isidra Garibay DO Copies to: NON STAFF Isidra Garibay DO~ Date of Service: 01/10/2022 Cardiology HPI History of Present Illness Chief complaint: Inferolateral STEMI HPI: Ms. Link is a 51 year old female transferred from [facility] emergency room this morning after receiving phone call from Dr. Katz and reviewing electronic transmitted media and discussion about the clinical case. Patient presented with severe chest discomfort with no prior history of cardiac illness or intervention. ECGs reveal sinus rhythm with inferolateral ST elevation injury current. She was admitted restarted upstream antiplatelet and Antithrombin therapy, and transferred to the [facility] emergently. Patient arrived at [facility] at 0924, first ECG transmitted to ma was 0948, [facility] team was activated at 0952, patient was transferred by ground, arrived in [facility] at 1033 and underwent primary PCI at [...] ER staff, review of electronic transmitted media, [facility] staff, nursing staff and family both pre [...] changes or abnormalities: ST suggestive of injury TN, pacemaker, normal Myocardial infarction: inferior TN (acute or recent) and lateral TN (acute or recent) A&P - Cardiology (1) ST elevation myocardial infarction (STEMI) of inferolateral wall: Code(s): I21.19 - ST elevation (STEMI) myocardial infarction involving other coronary artery of inferior wall (2) Hyperlipidemia: Code(s): E78.5 - Hyperlipidemia, unspecified (3) Essential hypertension: Code(s): I10 - Essential (primary) hypertension Documented By: Isidra Garibay DO 01/10/22 1026 Signed By: <Electronically signed by Isidra Garibay DO> 01/10/22 1214 [facility] Work Phone: 1(747) 895-880605-30-2022 Procedure [facility]05-30-2022 [facility] Hospital[facility] complaint Narrative - Reported* 51-year-old female returns for transitional care management office visit following recent large anterior TN with associated cardiogenic shock and primary revascularization of the LAD, details of which are reviewed. She had intra-aortic balloon pump counterpulsation for 24 hours, subsequent diagnosis of LV thrombus with reduced LV function. She was transition to clopidogrel warfarin, aspirin triple therapy. She did have brief episodes of bobbi-TN/postoperative VT that stabilized on amiodarone andthen we [...] 12 weeks and myselfin approximately [address] Work Phone: Chief complaint Narrative - Reported* 51-year-old female returns for transitional care management office visit following recent large anterior TN with associated cardiogenic shock and primary revascularization of the LAD, details of which are reviewed. She had intra- aortic balloon pump counterpulsation for 24 hours, subsequent diagnosis of LV thrombus with reduced LV function. She was transition to clopidogrel warfarin, aspirin triple therapy. She did have brief episodes of bobbi-TN/postoperative VT that stabilized on amiodarone andthen we [...] 12 weeks and myselfin approximately [address] [facility] Work Phone: Chief complaint Narrative - Reported* 51-year-old female returns for transitional care management office visit following recent large anterior TN with associated cardiogenic shock and primary revascularization of the LAD, details of which are reviewed. She had intra- aortic balloon pump counterpulsation for 24 hours, subsequent diagnosis of LV thrombus with reduced LV function. She was transition to clopidogrel warfarin, aspirin triple therapy. She did have brief episodes of bobbi-TN/postoperative VT that stabilized on amiodarone andthen we [...] 12 weeks and myselfin approximately [address] [facility] Work Phone: Evaluation note* Diagnosis Onset Date Resolution Status Essential hypertension acute Hyperlipidemia acute Left ventricular thrombus ac [place] ST elevation myocardial infa rction (STEMI) of inferolateral wall acute [facility] Work Phone: Hospital Discharge instructions Additional Instructions [facility] to manage your Coumadin dosing [...] doctor or pharmacist, without first calling the explosive operator supervisor who implanted the stent. If you require [...] weight lifting, stair steppers, etc. until the explosive operator supervisor approves these activities. Check with the explosive operator supervisor on your first follow-up visit. CALL YOUR PHYSICIAN at [phone]: -If bleeding should occur from the catheter insertion site- apply pressure to the site then immediately call us. -Report any fever, redness, drainage, increased swelling, or firmness at the catheter insertion site. Some bruising or slight swelling may be present at the time of discharge. -Should arm or leg become cold, numb, white, or blue, contact the explosive operator supervisor immediately. -IF you should experience episodes of [...] is recommended. Please call Central Scheduling at [phone] to schedule your appointment.] The attending explosive operator supervisor or [facility] nurse clinician should provide you with specific instructions regarding activity, diet, medications, and further follow up for you. Follow the medication instructions provided on your discharge. If the dosages and instructions on this sheet differ from the dosage and instructions on the bottle, follow the instructions on the bottle. [facility] is not responsible for incorrect prescription information provided by the patient during their visit. Do not stop your medications without consulting your health care provider. Please take the list with you to your next doctor's appointment.[facility] Work Phone: Summary Purpose Family History [...] and content) DATE CREATED AUTHOR 09/11/2021 [facility] DATE CREATED AUTHOR AUTHOR'S ORGANIZ ATION 03/09/2022 [facility] DATE CREATED AUTHOR AUTHOR'S ORGANIZ ATION 12/25/2022 [facility] DATE CREATED AUTHOR AUTHOR'S ORGANIZ ATION 05/11/2024 [facility] DATE CREATED AUTHOR AUTHOR'S ORGANIZ ATION 05/22/2024 [facility] Care Teams (unrecognized sec tion and [...] BE BASED ON THE PRIMARY CLINICAL RECORDS. [facility] [employer] [facility]. provides no warranty or guarantee of the accuracy or completeness of information in this document.
[2024-05-24 10:59] LABS: Alanine Aminotransferase 24 U/L (14-59); Albumin Globulin Ratio 0.9; Albumin Level 3.5 g/dL (3.4-5.0); Alkaline Phosphatase 122 U/L (46-116); Anion Gap 13.7; Aspartate Amino Transferase 20 U/L (15-37); BUN Creatinine Ratio 7.8; Bilirubin Total 0.6 mg/dL (0.2-1.0); Calcium 9.3 mg/dL (8.5-10.1); Carbon Dioxide 24.7 mmol/L (21.0-32.0); Chloride 99 mmol/L (98-107); Estimated GFR (African America 60 (>=60 mL/min/1.73m^2); Estimated GFR (Non-African Ame 49 (>=60 mL/min/1.73m^2); Glucose 85 mg/dL (74-106); Potassium 4.4 mmol/L (3.5-5.1); Sodium 133 mmol/L (136-145); Total Protein 7.5 g/dL (6.4-8.2)
== END 2024-05-24 10:01 | disposition home or self-care (01) ==
LOC: LAB 10:00
PROVIDERS: PCP Nurse Practitioner Family; Visit Provider Nurse Practitioner Family
DX: N28.9 Disorder of kidney and ureter, unspecified (principal)
CPT/HCPCS: 36415; 80053

== ENCOUNTER 2024-06-03 10:08 | Outpatient (OUT) | payer MEDICARE, SELFPAY ==
--- OUTSIDE RECORDS SUMMARY | 2024-06-03 10:26 | XMS_ITS | CCD ---
Author Organization [facility] Care Team Providers Care Residential Therapist Name Role Phone RAFI BISWAS Attending Unavailable MORIAH MACK Primary Care Unavailable MORIAH MACK Referring Unavailable RAFI BISWAS Admitting Unavailable None, No PCP Unavailable Unavailable Unavailable Unavailable DO Isidra Garibay Admit Provider DO Isidra Garibay Attending Provider [phone] NON STAFF Primary Care Provider UnavailALTON Bowen [...] Unavailable MOUKARBEL, DR SHAFFER Consulting Unavailable VALDEZ, [facility] Primary Care Unavailable MOUKARBEL, DR SHAFFER Attending Unavailable MOUKARBEL, DR SHAFFER Admitting Unavailable FAWWAD, SWIFT H Admitting Unavailable FAWWAD, SWIFT H Attending Unavailable VALDEZ, NIKKI Primary Care Unavailable NON STAFF Primary Care Unavailable Isidra Garibay Attending Unavailable Isidra Garibay Admitting Unavailable RAFI BISWAS Referring Unavailable ALTON PARKS Referring Unavailable OWEN, DELL Referring Unavailable OWEN, DELL Referring Unavailable MOUKADEENA ABREU Attending Unavailable OWEN, DELL Referring Unavailable OWEN, DELL Referring Unavailable OWEN, DELL Referring Unavailable OWEN, DELL Referring Unavailable ALTON PARKS Referring Unavailable ALTON PARKS Referring Unavailable ALTON PARKS Referring Unavailable ALTON PARKS Referring Unavailable ALTON PARKS Referring Unavailable YELENA CRUZ Attending Unavailable ALTON PARKS Referring Unavailable CIRILO RUBALCAVA Attending Unavailable RAFI BISWAS Attending Unavailable ALTON PARKS Referring Unavailable DELL WEAVER Referring Unavailable Allergies Allergy Classification Reported Allergen(s) Allergy Type Date of Onset Reaction(s) Facility (1 source) AVELOX IN NACL (ISO-OSMOTIC); Translations: [AVELOX IN NACL (ISO-OSMOTIC)] Propensity to adverse reactions (disorder) 1 [facility] Repository (4 sources) moxifloxacin; Translations: [Avelox] Drug Allergy [place] [address] DO Work Phone: (3 sources) moxifloxacin; Translations: [moxifloxacin] Drug Allergy 2 [facility] (1 source) moxifloxacin Drug Allergy 3 [facility] Repository (1 source) Chlorhexidine; Translations: [CHLORHEXIDINE GLUCONATE] Drug Allergy 0 [facility] Repository Medications Current Medications Medication Drug Class(es) Dates Sig (Normalized) Sig (Original) [id number] 200 actuat albuterol 0.09 mg/actuat metered dose [...] 2022 1:49pm take 1 capsule by mo [facility] three times daily as needed Benzonatate 200 [...] 2022 6:58pm take 1 capsule by mo 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; Translations: [OTH DETENTION CURRENT DRUG THERAPY] Onset: 06-07-2022 Episodic Other aftercare (4 sources) Encounter for therapeutic drug level monitoring; Translations: [ENC THERAPEUTC DRUG LEVL MONITORING] Onset: 05-15-2022 Episodic Other aftercare (1 source) 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 [facility] 36 Can we give patient sample? Normal [facility] Follow-Upon 07-31-2023 Follow-Up [id number] Javier Link 1970 Date Provider Department Center 07/31/2023 CIRILO CARMEN [facility] Family History Problem Relation Age of Onset Atrial fibrillation Mother Other Mother Heart attack Father Other Father Other Father Family Status - Relation Status Age at Mother Father Level of Service:94743 [place] OFFICE/OUTPATIENT ESTABLISHED MOD MDM 30-39 MIN Reason for Visit and Comments: Follow-up [341175] - Discuss medication switch Normal [facility] Office Visiton 06-28-2023 Follow-up visit [id number] Javier Link 1970 F Date Provider Department Center 06/28/2023 DEENA GARCIA CARD [facility] Family History Problem Relation Age of Onset Atrial fibrillation Mother Other Mother Heart attack Father Other Father Other Father Family Status - Relation Status Age at Mother Father Level of Service:95303 [place] OFFICE/OUTPATIENT ESTABLISHED LOW MDM 20-29 MIN Reason for Visit and Comments: Follow-up [608791] - BP running higher. Normal [facility] Office Visiton 05-23-2023 Follow-up visit [id number] BraxtonJavier chávez Bebo 1970 F Date Provider Department Center 05/23/2023 RAFI HONEYCUTT [facility] Family History Problem Relation Age of Onset Atrial fibrillation Mother Other Mother Heart attack Father Other Father Other Father Family Status - Relation Status Age at Mother Father Level of Service:52997 [place] OFFICE/OUTPATIENT ESTABLISHED LOW MDM 20-29 MIN (GC,25) Reason for Visit and Comments: Pain [136] - Radiates up thumb up arm Pain [136] - Radiates up thumb up to arm. Normal [facility] PROF CHEM 8 (BAS METB)on Anion gap [Moles/Vol] 14.8 mmol/L Normal [facility] Comment on above: Performed By: #### C BC #### [facility] [address] [address] [address] Vangie Devine Calcium [Mass/Vol] 8.9 mg/dL Normal 8.5-10.1 [facility] Comment on above: Performed By: #### C BC #### [facility] [address] [address] [address] Vangie Devine Chloride [Moles/Vol] 101 mmol/L Normal 98-107 [facility] Comment on above: Performed By: #### C BC #### [facility] [address] [address] [address] Vangie Devine CO2 [Moles/Vol] 25.9 mmol/L Normal 21.0-32.0 [facility] Comment on above: Performed By: #### C BC #### [facility] [address] [address] [address] Vangie Devine Creatinine [Mass/Vol] 0.91 mg/dL Normal 0.55-1.02 [facility] Comment on above: Performed By: #### C BC #### [facility] [address] [address] [address] Vangie Devine EGFR-AF HONG KONGER >60 Normal >=60 [facility] Comment on above: Performed By: #### C BC #### [facility] [address] [address] [address] Vangie Devine EGFR-NON AF [place]ER >60 Normal >=60 [facility] Comment on above: Performed By: #### C BC #### [facility] [address] [address] [address] Vangie Devine Glucose [Mass/Vol] 93 mg/dL Normal 74-106 [facility] Comment on above: Performed By: #### C BC #### [facility] [address] [place] [address] Dr. Vangie Devine Potassium [Moles/Vol] 4.7 mmol/L Normal 3.5-5.1 [facility] Comment on above: Performed By: #### C BC #### [facility] [address] [address] [address] Vangie Devine Sodium [Moles/Vol] 137 mmol/L Normal 136-145 [facility] Comment on above: Performed By: #### C BC #### [facility] [address] [place] [address] Dr. Vangie Devine Urea nitrogen [Mass/Vol] 9.0 mg/dL Normal 7.0-18.0 [facility] Comment on above: Performed By: #### C BC #### [facility] [address] [address] [address] Vangie Devine Urea nitrogen/Creatinine [Mass ratio] 9.9 mg/mg Normal [facility] Comment on above: Performed By: #### C BC #### [facility] [address] [address] [address] Vangie Devine PROF CHEM 8 (BAS METB)on Anion gap [Moles/Vol] 15.6 mmol/L Normal [facility] Comment on above: Performed By: #### P TT, PT #### [facility] [address] [address] [address] Vangie Devine Calcium [Mass/Vol] 8.9 mg/dL Normal 8.5-10.1 [facility] Comment on above: Performed By: #### P TT, PT #### [facility] [address] [address] [address] Vangie Devine Chloride [Moles/Vol] 101 mmol/L Normal 98-107 [facility] Comment on above: Performed By: #### P TT, PT #### [facility] [address] [place] [address] Dr. Vangie Devine CO2 [Moles/Vol] 24.7 mmol/L Normal 21.0-32.0 [facility] Comment on above: Performed By: #### P TT, PT #### [facility] [address] [place] [address] Dr. Vangie Devine Creatinine [Mass/Vol] 0.95 mg/dL Normal 0.55-1.02 [facility] Comment on above: Performed By: #### P TT, PT #### [facility] [address] [place] [address] Dr. Vangie Devine EGFR-AF HONG [place]ONGER >60 Normal >=60 [facility] Comment on above: Performed By: #### P TT, PT #### [facility] [address] [place] [address] Dr. Vangie Devine EGFR-NON AF [place]ER >60 Normal >=60 [facility] Comment on above: Performed By: #### P TT, PT #### [facility] [address] [place] [address] Dr. Vangie Devine Glucose [Mass/Vol] 101 mg/dL Normal 74-106 [facility] Comment on above: Performed By: #### P TT, PT #### [facility] [address] [place] [address] Dr. Vangie Devine Potassium [Moles/Vol] 4.3 mmol/L Normal 3.5-5.1 [facility] Comment on above: Performed By: #### P TT, PT #### [facility] [address] [address] [address] Vangie Devine Sodium [Moles/Vol] 137 mmol/L Normal 136-145 [facility] Comment on above: Performed By: #### P TT, PT #### [facility] [address] [address] [address] Vangie Devine Urea nitrogen [Mass/Vol] 15.0 mg/dL Normal 7.0-18.0 [facility] Comment on above: Performed By: #### P TT, PT #### [facility] [address] [address] [address] Vangie Devine Urea nitrogen/Creatinine [Mass ratio] 15.8 mg/mg Normal [facility] Comment on above: Performed By: #### P TT, PT #### [facility] [address] [address] [address] Vangie Devine NM STRESS/REST MULTIon 10-31 NM STRESS/REST MULTI Patient: JAVIER LINK Exam Date: 10/31/2022 : 1970 Gender:F Ordering : DR DEENA BENTON M.D. Admission #: [id number] Family : Order #: [id number] CLICK HERE TO VIEW EXAM RADIOLOGY REPORT [...] M.D. on 10/31/2022 at 14:45 Normal [facility] FREE THYROXINE INDEX T7on FTI 4.83 Critically high 1.30-4.50 [facility] Comment on above: Performed By: #### C BC #### [facility] [address] [address] [address] Vangie Devine T3U 35.0 % Normal 30.0-39.0 [facility] Comment on above: Performed By: #### C BC #### [facility] [address] [address] [address] Vangie Devine T4 [Mass/Vol] 13.80 ug/dL Normal 4.80-13.90 [facility] Comment on above: Performed By: #### C BC #### [facility] [address] [address] [address] Vangie Devine TSHon 07-20-2022 TSH 0.051 uIU/mL Critically low 0.358-3.740 [facility] Comment on above: Performed By: #### C BC #### [facility] [address] [address] [address] Vangie Devine ACETONE SERUMon 06-03-2022 ACETONE Negative Normal NEGATIVE [facility] Comment on above: Performed By: #### C BCHERIBERTO #### [facility] [address] [place] [address] Dr. Vangie Devine CBC AUTO DIFFon 06-03-2022 BASO # 0.1 103/ul Normal 0.0-0.1 [facility] Comment on above: Performed By: #### C BCMAN #### [facility] [address] [place] [address] Dr. Vangie Devine Basophils/100 WBC (Bld) 0.6 % Normal 0.2-2.0 [facility] Comment on above: Performed By: #### C BCMAN #### [facility] [address] [place] [address] Dr. Vangie Devine EO # 0.3 103/ul Normal 0.0-0.7 [facility] Comment on above: Performed By: #### C BCHERIBERTO #### [facility] [address] [place] [address] Dr. Vangie Devine Eosinophils/100 WBC (Bld) 1.4 % Normal 0.9-7.0 [facility] Comment on above: Performed By: #### C BCHERIBERTO #### [facility] [address] [place] [address] Dr. Vangie Devine Erythrocyte distribution width (RBC) [Ratio] 13.2 % Normal 11.0-15.0 [facility] Comment on above: Performed By: #### C BCHERIBERTO #### [facility] [address] [place] [address] Dr. Vangie Devine Hematocrit (Bld) [Volume fraction] 44.8 % Normal 36.0-48.0 [facility] Comment on above: Performed By: #### C BCMAN #### [facility] [address] [place] [address] Dr. Vangie Devine Hemoglobin (Bld) [Mass/Vol] 15.0 g/dL Normal 12.0-16.0 [facility] Comment on above: Performed By: #### C BCMAN #### [facility] [address] [place] [address] Dr. Vangie Devine IG # 0.06 10e3/ul Critically high 0.00-0.03 [facility] Comment on above: Performed By: #### C JOBY #### [facility] [address] [place] [address] Dr. Vangie Devine IG % 0.3 % Normal 0.0-0.5 [facility] Comment on above: Performed By: #### C JOBY #### [facility] [address] [place] [address] Dr. Vangie Devine LYMPH # 3.5 103/ul Normal 1.2-3.8 [facility] Comment on above: Performed By: #### C JOBY #### [facility] [address] [place] [address] Dr. Vangie Devine Lymphocytes/100 WBC (Bld) 19.8 % Critically low 20.5-60.0 [facility] Comment on above: Performed By: #### C JOBY #### [facility] [address] [place] [address] Dr. Vangie Devine MANUAL DIFF REQ NO Normal [facility] Comment on above: Performed By: #### C JOBY #### [facility] [address] [place] [address] Dr. Vangie Devine MCH (RBC) [Entitic mass] 31.1 pg Normal 26.7-34.0 [facility] Comment on above: Performed By: #### C JOBY #### [facility] [address] [place] [address] Dr. Vangie Devine MCHC (RBC) [Mass/Vol] 33.5 g/dL Normal 29.9-35.2 [facility] Comment on above: Performed By: #### C JOBY #### [facility] [address] [place] [address] Dr. Vangie Devine MCV (RBC) [Entitic vol] 92.8 fL Normal 81.0-99.0 [facility] Comment on above: Performed By: #### C JOBY #### [facility] [address] [place] [address] Dr. Vangie Devine MONO # 1.1 103/ul Critically high 0.3-0.8 [facility] Comment on above: Performed By: #### C JOBY #### [facility] [address] [place] [address] Dr. Vangie Devine Monocytes/100 WBC (Bld) 6.0 % Normal 1.7-12.0 [facility] Comment on above: Performed By: #### C JOBY #### [facility] [address] [place] [address] Dr. Vangie Devine NEUT # 12.6 103/ul Critically high 1.4-6.5 [facility] Comment on above: Performed By: #### C JOBY #### [facility] [address] [place] [address] Dr. Vangie Devine Neutrophils/100 WBC (Bld) 71.9 % Normal 43.0-75.0 [facility] Comment on above: Performed By: #### Baldemar HEMPHILL #### [facility] [address] [place] [address] Dr. Vangie Devine Platelet mean volume (Bld) [Entitic vol] 11.0 fL Normal 9.5-13.5 [facility] Comment on above: Performed By: #### C JOBY #### [facility] [address] [place] [address] Dr. Vangie Devine PLT 179 103/ul Normal 150-450 [facility] Comment on above: Performed By: #### Baldemar HEMPHILL #### [facility] [address] [place] [address] Dr. Vangie Devine RBC 4.83 106/ul Normal 4.20-5.40 [facility] Comment on above: Performed By: #### C JOBY #### [facility] [address] [place] [address] Dr. Vangie Devine WBC 17.5 103/ul Critically high 4.0-11.[address] [facility] Comment on above: Performed By: #### C JOBY #### [facility] [address] [place] [address] HEAD WO CONon [...] MARY ROJAS Date: 2022-06-03 19:15 Normal [facility] CULTURE URINEon 06-03-2022 CULTURE URINE Culture Observations : NO GROWTH. Normal [facility] Comment on above: Performed By: #### P TT, PT #### [facility] [address] [address] [address] Vangie Devine Covid-19 PCR ([facility])on 05-15 SARS-CoV-2 (COVID-19) RNA SAMIR+probe Ql (Unsp spec) Not detected Normal NOT DETECTED [facility] Comment on above: Result Comment: When [...] for this test is supported by the [place] of Health and Human Service's declaration that [...] used). Performed By: #### C BCMAN #### [facility] [address] [place] [address] Dr. Vangie Devine ER URINE PROFILEon 2 Bilirubin Ql (U) Negative Normal NEGATIVE [facility] Comment on above: Performed By: #### C BC #### [facility] [address] [place] [address] Dr. Vangie Devine Clarity (U) CLEAR Normal CLEAR [facility] Comment on above: Performed By: #### C BC #### [facility] [address] [place] [address] Dr. Vangie Devine Color (U) LT. YELLOW Normal YELLOW [facility] Comment on above: Performed By: #### C BC #### [facility] [address] [place] [address] Dr. Vangie Devine ERUAHD A micrscopic examination will be performed if indicated. Normal [facility] Comment on above: Performed By: #### C BC #### [facility] [address] [place] [address] Dr. Vangie Devine Glucose Ql (U) 250 mg/dl Abnormal NEGATIVE [facility] Comment on above: Performed By: #### C BC #### [facility] [address] [place] [address] Dr. Vangie Devine Hemoglobin Ql (U) Negative Normal NEGATIVE [facility] Comment on above: Performed By: #### C BC #### [facility] [address] [place] [address] Dr. Vangie Devine Ketones Ql (U) Negative Normal NEGATIVE [facility] Comment on above: Performed By: #### C BC #### [facility] [address] [place] [address] Dr. Vangie Devine LEUKOCYTES Negative Normal NEGATIVE [facility] Comment on above: Performed By: #### C BC #### [facility] [address] [place] [address] Dr. Vangie Devine Nitrite Ql (U) Positive Abnormal NEGATIVE [facility] Comment on above: Performed By: #### C BC #### [facility] [address] [place] [address] Dr. Vangie Devine pH (U) 6.0 [pH] Normal 5-9 [facility] Comment on above: Performed By: #### C BC #### [facility] [address] [place] [address] Dr. Vangie Devine SPEC GRAVITY <=1.005 Abnormal 1.005-<=1.025 [facility] Comment on above: Performed By: #### C BC #### [facility] [address] [place] [address] Dr. Vangie Devine UA PROTEIN Negative Normal NEGATIVE/ TRACE [facility] Comment on above: Performed By: #### C BC #### [facility] [address] [place] [address] Dr. Vangie Devine UR MICRO IND INDICATED Normal [facility] Comment on above: Performed By: #### C BC #### [facility] [address] [place] [address] Dr. Vangie Devine Urobilinogen Qn (U) 0.2 {Jewel'U}/dL Normal 0.2 - 1. 0 [facility] Comment on above: Performed By: #### C BC #### [facility] [address] [place] [address] Dr. Vangie Devine FREE T3on 06-03-2022 FREE T3 2.42 pg/mlL Normal 2.18-3.98 [facility] Comment on above: Performed By: #### F T3 #### [facility] [address] [place] [address] Dr. Vangie Devine FREE T4on 06-03-2022 Free T4 [Mass/Vol] 1.93 ng/dL Critically high 0.76-1.46 [facility] Comment on above: Performed By: #### C BCMAN #### [facility] [address] [place] [address] Dr. Vangie Devine LACTATE/LACTIC ACIDon 10-21- 2022 Lactate [Moles/Vol] 1.2 mmol/L Normal 0.4-1.9 [facility] Comment on above: Performed By: #### C JOBY #### [facility] [address] [address] [address] Vangie Devine PROF 14(COMP METB)on 022 Albumin [Mass/Vol] 3.9 g/dL Normal 3.4-5.0 [facility] Comment on above: Performed By: #### H STROPN, TSH, CMP #### [facility] [address] [address] [address] Vangie Devine Albumin/Globulin [Mass ratio] 0.9 {ratio} Normal [facility] Comment on above: Performed By: #### H TROY, TSH, CMP #### [facility] [address] [address] [address] Vangie Devine ALP [Catalytic activity/Vol] 138 U/L Critically high 46-116 [facility] Comment on above: Performed By: #### H TROY, TSH, CMP #### [facility] [address] [address] [address] Vangie Devine ALT [Catalytic activity/Vol] 24 U/L Normal 14-59 [facility] Comment on above: Performed By: #### H TROY, TSH, CMP #### [facility] [address] [address] [address] Vangie Devine Anion gap [Moles/Vol] 11.4 mmol/L Normal [facility] Comment on above: Performed By: #### H STROPN, TSH, CMP #### [facility] [address] [address] [address] Vangie Devine AST [Catalytic activity/Vol] 23 U/L Normal 15-37 [facility] Comment on above: Performed By: #### H STROPN, TSH, CMP #### [facility] [address] [address] [address] Vangie Devine Bilirubin [Mass/Vol] 0.5 mg/dL Normal 0.2-1.0 [facility] Comment on above: Performed By: #### H STROPN, TSH, CMP #### [facility] [address] [address] [address] Vangie Devine Calcium [Mass/Vol] 9.5 mg/dL Normal 8.5-10.1 [facility] Comment on above: Performed By: #### H STROPN, TSH, CMP #### [facility] [address] [address] [address] Vangie Devine Chloride [Moles/Vol] 98 mmol/L Normal 98-107 [facility] Comment on above: Performed By: #### H STROPN, TSH, CMP #### [facility] [address] [address] [address] Vangie Devine CO2 [Moles/Vol] 25.3 mmol/L Normal 21.0-32.0 [facility] Comment on above: Performed By: #### H STROPN, TSH, CMP #### [facility] [address] [address] [address] Vangie Devine Creatinine [Mass/Vol] 0.90 mg/dL Normal 0.55-1.02 [facility] Comment on above: Performed By: #### H STROPN, TSH, CMP #### [facility] [address] [place] [address] Dr. Vangie Devine EGFR-AF [place]ER >60 Normal >=60 [facility] Comment on above: Performed By: #### H STROPN, TSH, CMP #### [facility] [address] [place] [address] Dr. Vangie Devine EGFR-NON AF [place] >60 Normal >=60 [facility] Comment on above: Performed By: #### H STROPN, TSH, CMP #### [facility] [address] [address] [address] Vangie Devine Globulin (S) [Mass/Vol] 4.2 g/dL Normal [facility] Comment on above: Performed By: #### H STROPN, TSH, CMP #### [facility] [address] [place] [address] Dr. Vangie Devine Glucose [Mass/Vol] 93 mg/dL Normal 74-106 [facility] Comment on above: Performed By: #### H STROPN, TSH, CMP #### [facility] [address] [address] [address] Vangie Devine Potassium [Moles/Vol] 3.7 mmol/L Normal 3.5-5.1 [facility] Comment on above: Performed By: #### H STROPN, TSH, CMP #### [facility] [address] [address] [address] Vangie Devine Protein [Mass/Vol] 8.1 g/dL Normal 6.4-8.2 [facility] Comment on above: Performed By: #### H STROPN, TSH, CMP #### [facility] [address] [place] [address] Dr. Vangie Devine Sodium [Moles/Vol] 131 mmol/L Critically low 136-145 [facility] Comment on above: Performed By: #### H STROPN, TSH, CMP #### [facility] [address] [place] [address] Dr. Vangie Devine Urea nitrogen [Mass/Vol] 14.0 mg/dL Normal 7.0-18.0 [facility] Comment on above: Performed By: #### H STRONANCY, TSH, CMP #### [facility] [address] [place] [address] Dr. Vangie Devine Urea nitrogen/Creatinine [Mass ratio] 15.6 mg/mg Normal [facility] Comment on above: Performed By: #### H STROPN, TSH, CMP #### [facility] [address] [place] [address] Dr. Vangie Devine PROTIMEon 06-03-2022 INR Coag (PPP) [Relative time] 1.06 {INR} Normal [facility] Comment on above: Performed By: #### C BCMAN #### [facility] [address] [place] [address] Dr. Vangie Devine INR GUIDELINES SEE BELOW Normal [facility] Comment on above: Result Comment: MARY ANN RED INR: 2.0 - 3.0 CONDITIONS NOT LISTED BELOW 2.5 - 3.5 FOR PROSTHETIC HEART VALVE REPLACEMENT 2.5 - 3.5 RECURRENT THROMBOSIS Performed By: #### C BCMAN #### [facility] [address] [place] [address] Dr. Vangie Devine PT Coag (PPP) [Time] 11.4 s Normal 9.0-11.6 [facility] Comment on above: Performed By: #### C BCMAN #### [facility] [address] [place] [address] Dr. Vangie Devine PTTon 06-03-2022 aPTT Coag (Bld) [Time] 31.3 s Normal 22.3-36.2 [facility] Comment on above: Performed By: #### C JANNETTEMAN #### [facility] [address] [place] [address] Dr. Vangie Devine TROPONIN, HIGH SENSITIVITYon 06-03-2022 HSTROP 26.3 pg/mL Normal 4.0-51.3 [facility] Comment on above: Result Comment: CUT- OFF POINTS HAVE BEEN ESTABLISHED BASED ON THE FOURTH UNIVERSAL DEFINITIONS OF MYOCARDIAL INFARCTION. THE UPPER REFERENCE LIMIT (URL) OF TROPONIN, DEFINED THE 99TH PERCENTILE OF cTnI DISTRIBUTION IN A REFERENCE POPULATION, HAS BEEN CONFIRMED THE DECISION THRESHOLD FOR [place] DIAGNOSIS. Performed By: #### P TT, PT #### [facility] [address] [place] [address] Dr. Vangie Devine TSHon 06-03-2022 TSH 0.150 uIU/mL Critically low 0.358-3.740 [facility] Comment on above: Performed By: #### P TT, PT #### [facility] [address] [place] [address] Dr. Vangie Devine URINE MICROSCOPIC ONLYon BACTERIA TRACE Abnormal NONE SEEN [facility] Comment on above: Performed By: #### C BC #### [facility] [address] [place] [address] Dr. Vangie Devine Bacteria identified Cx Nom (U) INDICATED Normal [facility] Comment on above: Result Comment: dory cated due to positive nitrite Performed By: #### C BC #### [facility] [address] [place] [address] Dr. Vangie Devine CAST NONE SEEN Normal NONE SEEN [facility] Comment on above: Performed By: #### C BC #### [facility] [address] [place] [address] Dr. Vangie Devine Crystals LM Nom (Urine sed) NONE SEEN Normal NONE SEEN [facility] Comment on above: Performed By: #### C BC #### [facility] [address] [place] [address] Dr. Vangie Devine Epithelial cells LM Ql (Urine sed) RARE Normal NONE SEEN /RARE [facility] Comment on above: Performed By: #### C BC #### [facility] [address] [place] [address] Dr. Vangie Devine MUCOUS NONE SEEN Normal NONE SEEN [facility] Comment on above: Performed By: #### C BC #### [facility] [address] [place] [address] Dr. Vangie Devine RBC 0-2 Normal 0-2 [facility] Comment on above: Performed By: #### C BC #### [facility] [address] [place] [address] Dr. Vangie Devine WBC 0-2 Abnormal NONE SEEN [facility] Comment on above: Performed By: #### C BC #### [facility] [address] [place] [address] Dr. Vangie Devine XR CHEST 1 Von [...] MARY ROJAS Date: 2022-06-03 19:25 Normal [facility] XR CHEST 2 Von 05-18-2022 XR [...] ANGEL SHAFFER Date: 2022-05-18 10:55 Normal [facility] Covid-19 PCR (CVDTB)on SARS-CoV-2 (COVID-19) RNA SAMIR+probe Ql (Unsp spec) Not detected Normal NOT DETECTED [facility] Comment on above: Result Comment: This test is not yet approved or cleared by the [place] FDA. When there are no FDA-approved or cleared tests available, and other criteria are met, FDA can make tests available under an emergency access mechanism called an Emergency Use Authorization (EUA). The EUA for this test is supported by the [place] of Health and Human Service's (HHS's) declaration [...] Performed By: #### P TT, PT #### [facility] [address] [place] [address] Dr. Vangie Devine CBC AUTO DIFFon 05-12-2022 BASO # 0.1 103/ul Normal 0.0-0.1 [facility] Comment on above: Performed By: #### C BC #### [facility] [address] [place] [address] Dr. Vangie Devine Basophils/100 WBC (Bld) 0.7 % Normal 0.2-2.0 [facility] Comment on above: Performed By: #### C BC #### [facility] [address] [place] [address] Dr. Vangie Devine EO # 0.2 103/ul Normal 0.0-0.7 [facility] Comment on above: Performed By: #### C BC #### [facility] [address] [place] [address] Dr. Vangie Devine Eosinophils/100 WBC (Bld) 2.1 % Normal 0.9-7.0 [facility] Comment on above: Performed By: #### C BC #### [facility] [address] [place] [address] Dr. Vangie Devine Erythrocyte distribution width (RBC) [Ratio] 13.1 % Normal 11.0-15.0 [facility] Comment on above: Performed By: #### C BC #### [facility] [address] [place] [address] Dr. Vangie Devine Hematocrit (Bld) [Volume fraction] 43.2 % Normal 36.0-48.0 [facility] Comment on above: Performed By: #### C BC #### [facility] [address] [place] [address] Dr. Vangie Devine Hemoglobin (Bld) [Mass/Vol] 14.2 g/dL Normal 12.0-16.0 [facility] Comment on above: Performed By: #### C BC #### [facility] [address] [place] [address] Dr. Vangie Devine IG # 0.02 10e3/ul Normal 0.00-0.03 [facility] Comment on above: Performed By: #### C BC #### [facility] [address] [place] [address] Dr. Vangie Devine IG % 0.2 % Normal 0.0-0.5 [facility] Comment on above: Performed By: #### C BC #### [facility] [address] [place] [address] Dr. Vangie Devine LYMPH # 1.9 103/ul Normal 1.2-3.8 [facility] Comment on above: Performed By: #### C BC #### [facility] [address] [place] [address] Dr. Vangie Devine Lymphocytes/100 WBC (Bld) 22.2 % Normal 20.5-60.0 [facility] Comment on above: Performed By: #### C BC #### [facility] [address] [place] [address] Dr. Vangie Devine MANUAL DIFF REQ NO Normal [facility] Comment on above: Performed By: #### C BC #### [facility] [address] [place] [address] Dr. Vangie Devine MCH (RBC) [Entitic mass] 30.5 pg Normal 26.7-34.0 [facility] Comment on above: Performed By: #### C BC #### [facility] [address] [place] [address] Dr. Vangie Devine MCHC (RBC) [Mass/Vol] 32.9 g/dL Normal 29.9-35.2 [facility] Comment on above: Performed By: #### C BC #### [facility] [address] [place] [address] Dr. Vangie Devine MCV (RBC) [Entitic vol] 92.7 fL Normal 81.0-99.0 [facility] Comment on above: Performed By: #### C BC #### [facility] [address] [place] [address] Dr. Vangie Devine MONO # 0.5 103/ul Normal 0.3-0.8 [facility] Comment on above: Performed By: #### C BC #### [facility] [address] [place] [address] Dr. Vangie Devine Monocytes/100 WBC (Bld) 6.0 % Normal 1.7-12.0 [facility] Comment on above: Performed By: #### C BC #### [facility] [address] [place] [address] Dr. Vangie Devine NEUT # 6.0 103/ul Normal 1.4-6.5 [facility] Comment on above: Performed By: #### C BC #### [facility] [address] [place] [address] Dr. Vangie Devine Neutrophils/100 WBC (Bld) 68.8 % Normal 43.0-75.0 [facility] Comment on above: Performed By: #### C BC #### [facility] [address] [place] [address] Dr. Vangie Devine Platelet mean volume (Bld) [Entitic vol] 11.7 fL Normal 9.5-13.5 [facility] Comment on above: Performed By: #### C BC #### [facility] [address] [place] [address] Dr. Vangie Devine PLT 176 103/ul Normal 150-450 [facility] Comment on above: Performed By: #### C BC #### [facility] [address] [place] [address] Dr. Vangie Devine RBC 4.66 106/ul Normal 4.20-5.40 [facility] Comment on above: Performed By: #### C BC #### [facility] [address] [place] [address] Dr. Vangie Devine WBC 8.7 103/ul Normal 4.0-11.0 [facility] Comment on above: Performed By: #### C BC #### [facility] [address] [place] [address] Dr. Vangie Devine PROF CHEM 8 (BAS METB)on Anion gap [Moles/Vol] 13.9 mmol/L Normal [facility] Comment on above: Performed By: #### C BC #### [facility] [address] [place] [address] Dr. Vangie Devine Calcium [Mass/Vol] 9.2 mg/dL Normal 8.5-10.1 [facility] Comment on above: Performed By: #### C BC #### [facility] [address] [address] [address] Vangie Devine Chloride [Moles/Vol] 101 mmol/L Normal 98-107 [facility] Comment on above: Performed By: #### C BC #### [facility] [address] [address] [address] Vangie Devine CO2 [Moles/Vol] 24.2 mmol/L Normal 21.0-32.0 [facility] Comment on above: Performed By: #### C BC #### [facility] [address] [address] [address] Vangie Devine Creatinine [Mass/Vol] 0.87 mg/dL Normal 0.55-1.02 [facility] Comment on above: Performed By: #### C BC #### [facility] [address] [place] [address] Dr. Vangie Devine EGFR-AF [place] >60 Normal >=60 [facility] Comment on above: Performed By: #### C BC #### [facility] [address] [place] [address] Dr. Vangie Devine EGFR-NON AF [place] >60 Normal >=60 [facility] Comment on above: Performed By: #### C BC #### [facility] [address] [place] [address] Dr. Vangie Devine Glucose [Mass/Vol] 89 mg/dL Normal 74-106 [facility] Comment on above: Performed By: #### C BC #### [facility] [address] [place] [address] Dr. Vangie Devine Potassium [Moles/Vol] 4.1 mmol/L Normal 3.5-5.1 [facility] Comment on above: Performed By: #### C BC #### [facility] [address] [place] [address] Dr. Vangie Devine Sodium [Moles/Vol] 135 mmol/L Critically low 136-145 [facility] Comment on above: Performed By: #### C BC #### [facility] [address] [place] [address] Dr. Vangie Devine Urea nitrogen [Mass/Vol] 9.0 mg/dL Normal 7.0-18.0 [facility] Comment on above: Performed By: #### C BC #### [facility] [address] [place] [address] Dr. Vangie Devine Urea nitrogen/Creatinine [Mass ratio] 10.3 mg/mg Normal [facility] Comment on above: Performed By: #### C BC #### [facility] [address] [place] [address] Dr. Vangie Devine PROTIMEon 05-12-2022 INR Coag (PPP) [Relative time] 1.96 {INR} Normal [facility] Comment on above: Performed By: #### P T #### [facility] [address] [place] [address] Dr. Vangie Devine INR GUIDELINES SEE BELOW Normal [facility] Comment on above: Result Comment: MARY ANN RED INR: 2.0 - 3.0 CONDITIONS NOT LISTED BELOW 2.5 - 3.5 FOR PROSTHETIC HEART VALVE REPLACEMENT 2.5 - 3.5 RECURRENT THROMBOSIS Performed By: #### P T #### [facility] [address] [place] [address] Dr. Vangie Devine PT Coag (PPP) [Time] 20.3 s Critically high 9.0-11.6 [facility] Comment on above: Performed By: #### P T #### [facility] [address] [place] [address] Dr. Vangie Devine T4, T3U, FTI LABCORPon 05-07 Free Thyroxine Index 4.7 Normal 1.2-4.9 [facility] Comment on above: Performed By: #### T HYLC #### [facility] [address] [place] [address] Dr. Vangie Devine T3 Uptake 34 % Normal 24-39 [facility] Comment on above: Performed By: #### T HYLC #### [facility] [address] [place] [address] Dr. Vangie Devine T4 [Mass/Vol] 13.8 ug/dL Critically high 4.5-12.0 [facility] Comment on above: Performed By: #### T HYLC #### [facility] [address], [place] [address] Dr. Vangie Devine TSHon 05-06-2022 TSH 0.063 uIU/mL Critically low 0.358-3.740 [facility] Comment on above: Performed By: #### T SH #### [facility] [address], [place] [address] Dr. Vangie Devine ECHOCARDIO M/2D COMPLETEon 0 03-31-2022 ECHOCARDIO M/2D COMPLETE Patient: JAVIER LINK Exam Date: 03/31/2022 : 1970 Gender:F Ordering : DR DEENA BENTON M.D. Admission #: [id number] Family : Order #: [id number] CLICK HERE TO VIEW EXAM ECHOCARDIOGRAM REPORT [...] M.D. on 03/31/2022 at 18:35 Normal [facility] CBC AUTO DIFFon 03-28-2022 BASO # 0.1 103/ul Normal 0.0-0.1 [facility] Comment on above: Performed By: #### C BC #### [facility] [address] [place] [address] Dr. Vangie Devine Basophils/100 WBC (Bld) 0.6 % Normal 0.2-2.0 [facility] Comment on above: Performed By: #### C BC #### [facility] [address] [place] [address] Dr. Vangie Devine EO # 0.2 103/ul Normal 0.0-0.7 [facility] Comment on above: Performed By: #### C BC #### [facility] [address] [place] [address] Dr. Vangie Devine Eosinophils/100 WBC (Bld) 2.0 % Normal 0.9-7.0 [facility] Comment on above: Performed By: #### C BC #### [facility] [address] [place] [address] Dr. Vangie Devine Erythrocyte distribution width (RBC) [Ratio] 12.7 % Normal 11.0-15.0 [facility] Comment on above: Performed By: #### C BC #### [facility] [address] [place] [address] Dr. Vangie Devine Hematocrit (Bld) [Volume fraction] 42.6 % Normal 36.0-48.0 [facility] Comment on above: Performed By: #### C BC #### [facility] [address] [place] [address] Dr. Vangie Devine Hemoglobin (Bld) [Mass/Vol] 13.9 g/dL Normal 12.0-16.0 [facility] Comment on above: Performed By: #### C BC #### [facility] [address] [place] [address] Dr. Vangie Devine IG # 0.03 10e3/ul Normal 0.00-0.03 [facility] Comment on above: Performed By: #### C BC #### [facility] [address] [place] [address] Dr. Vangie Devine IG % 0.4 % Normal 0.0-0.5 [facility] Comment on above: Performed By: #### C BC #### [facility] [address] [place] [address] Dr. Vangie Devine LYMPH # 2.3 103/ul Normal 1.2-3.8 [facility] Comment on above: Performed By: #### C BC #### [facility] [address] [place] [address] Dr. Vangie Devine Lymphocytes/100 WBC (Bld) 28.7 % Normal 20.5-60.0 [facility] Comment on above: Performed By: #### C BC #### [facility] [address] [place] [address] Dr. Vangie Devine MANUAL DIFF REQ NO Normal [facility] Comment on above: Performed By: #### C BC #### [facility] [address] [place] [address] Dr. Vangie Devine MCH (RBC) [Entitic mass] 31.0 pg Normal 26.7-34.0 [facility] Comment on above: Performed By: #### C BC #### [facility] [address] [place] [address] Dr. Vangie Devine MCHC (RBC) [Mass/Vol] 32.6 g/dL Normal 29.9-35.2 [facility] Comment on above: Performed By: #### C BC #### [facility] [address] [place] [address] Dr. Vangie Devine MCV (RBC) [Entitic vol] 95.1 fL Normal 81.0-99.0 [facility] Comment on above: Performed By: #### C BC #### [facility] [address] [place] [address] Dr. Vangie Devine MONO # 0.5 103/ul Normal 0.3-0.8 [facility] Comment on above: Performed By: #### C BC #### [facility] [address] [place] [address] Dr. Vangie Devine Monocytes/100 WBC (Bld) 6.8 % Normal 1.7-12.0 [facility] Comment on above: Performed By: #### C BC #### [facility] [address] [place] [address] Dr. Vangie Devine NEUT # 4.9 103/ul Normal 1.4-6.5 [facility] Comment on above: Performed By: #### C BC #### [facility] [address] [place] [address] Dr. Vangie Devine Neutrophils/100 WBC (Bld) 61.5 % Normal 43.0-75.0 [facility] Comment on above: Performed By: #### C BC #### [facility] [address] [place] [address] Dr. Vangie Devine Platelet mean volume (Bld) [Entitic vol] 11.0 fL Normal 9.5-13.5 [facility] Comment on above: Performed By: #### C BC #### [facility] [address] [place] [address] Dr. Vangie Devine PLT 224 103/ul Normal 150-450 [facility] Comment on above: Performed By: #### C BC #### [facility] [address] [place] [address] Dr. Vangie Devine RBC 4.48 106/ul Normal 4.20-5.40 [facility] Comment on above: Performed By: #### C BC #### [facility] [address] [place] [address] Dr. Vangie Devine WBC 7.9 103/ul Normal 4.0-11.0 [facility] Comment on above: Performed By: #### C BC #### [facility] [address] [place], [place] [address] Dr. Vangie Devine LIPID PROFILEon 03-28-2022 CHOL-HDL RATIO NORM SEE BELOW Normal [facility] Comment on above: Result Comment: 3.3 - 4.4 LOW RISK 4.4 - 7.1 AVERAGE RISK 7.1 - 11.0 MODERATE RISK >11.0 HIGH RISK Performed By: #### C BC #### [facility] [address] [address] [address] Vangie Devine Cholesterol [Mass/Vol] 103 mg/dL Normal <=200 [facility] Comment on above: Performed By: #### C BC #### [facility] [address] [place] [address] Dr. Vangie Devine Cholesterol in HDL [Mass/Vol] 39 mg/dL Critically low 40-60 [facility] Comment on above: Performed By: #### C BC #### [facility] [address] [place] [address] Dr. Vangie Devine Cholesterol in LDL [Mass/Vol] 46.8 mg/dL Normal [facility] Comment on above: Performed By: #### C BC #### [facility] [address] [place] [address] Dr. Vangie Devine Cholesterol.total/Chol esterol in HDL [Mass ratio] 2.6 {ratio} Normal [facility] Comment on above: Performed By: #### C BC #### [facility] [address] [place], [place] [id number] Dr. Vangie Devine HDL NORMAL > or = 60 mg/dl - LO W CARDIOVASCULAR RISK <40 mg/dl - HIGH CARDIOVASCULAR RISK Normal [facility] Comment on above: Performed By: #### C BC #### [facility] [address] [id number] Vangie Devine LDL CALC NORMAL SEE BELOW Normal [facility] Comment on above: Result Comment: <100 mg/dl OPTIMAL 100 - 129 mg/dl NEAR OR ABOVE OPTIMAL 130 - 159 mg/dl BORDERLINE HIGH 160 - 189 mg/dl HIGH >190 mg/dl VERY HIGH Performed By: #### C BC #### [facility] [address] [place] [address] Dr. Vangie Devine Triglyceride [Mass/Vol] 86 mg/dL Normal <=150 [facility] Comment on above: Performed By: #### C BC #### [facility] [address] [place] [address] Dr. Vangie Devine VLDL CALC 17.2 mg/dL Normal [facility] Comment on above: Performed By: #### C BC #### [facility] [address] [place] [address] Dr. Vangie Devine PROF 14(COMP METB)on 022 Albumin [Mass/Vol] 3.5 g/dL Normal 3.4-5.0 [facility] Comment on above: Performed By: #### C BC #### [facility] [address] [place] [address] Dr. Vangie Devine Albumin/Globulin [Mass ratio] 0.9 {ratio} Normal [facility] Comment on above: Performed By: #### C BC #### [facility] [address] [place] [address] Dr. Vangie Devine ALP [Catalytic activity/Vol] 127 U/L Critically high 46-116 [facility] Comment on above: Performed By: #### C BC #### [facility] [address] [place] [address] Dr. Vangie Devine ALT [Catalytic activity/Vol] 29 U/L Normal 14-59 [facility] Comment on above: Performed By: #### C BC #### [facility] [address] [place] [address] Dr. Vangie Devine Anion gap [Moles/Vol] 15.3 mmol/L Normal [facility] Comment on above: Performed By: #### C BC #### [facility] [address] [place] [address] Dr. Vangie Devine AST [Catalytic activity/Vol] 21 U/L Normal 15-37 [facility] Comment on above: Performed By: #### C BC #### [facility] [address] [place] [address] Dr. Vangie Devine Bilirubin [Mass/Vol] 0.5 mg/dL Normal 0.2-1.0 [facility] Comment on above: Performed By: #### C BC #### [facility] [address] [place] [address] Dr. Vangie Devine Calcium [Mass/Vol] 8.9 mg/dL Normal 8.5-10.1 [facility] Comment on above: Performed By: #### C BC #### [facility] [address] [address] [address] Vangie Devine Chloride [Moles/Vol] 101 mmol/L Normal 98-107 [facility] Comment on above: Performed By: #### C BC #### [facility] [address] [place] [address] Dr. Vangie Devine CO2 [Moles/Vol] 25.8 mmol/L Normal 21.0-32.0 [facility] Comment on above: Performed By: #### C BC #### [facility] [address] [place] [address] Dr. Vangie Devine Creatinine [Mass/Vol] 0.89 mg/dL Normal 0.55-1.02 [facility] Comment on above: Performed By: #### C BC #### [facility] [address] [place] [address] Dr. Vangie Devine EGFR-AF [place]ONG [place]ER >60 Normal >=[address] [facility] Comment on above: Performed By: #### C BC #### [facility] [address] [place] [address] Dr. Vangie Devine EGFR-NON AF [place] >60 Normal >=60 [facility] Comment on above: Performed By: #### C BC #### [facility] [address] [place] [address] Dr. Vangie Devine Globulin (S) [Mass/Vol] 4.1 g/dL Normal [facility] Comment on above: Performed By: #### C BC #### [facility] [address] [place] [address] Dr. Vangie Devine Glucose [Mass/Vol] 94 mg/dL Normal 74-106 [facility] Comment on above: Performed By: #### C BC #### [facility] [address] [address] [address] Vangie Devine Potassium [Moles/Vol] 5.1 mmol/L Normal 3.5-5.1 [facility] Comment on above: Performed By: #### C BC #### [facility] [address] [place], [place] [address] Dr. Vangie Devine Protein [Mass/Vol] 7.6 g/dL Normal 6.4-8.2 [facility] Comment on above: Performed By: #### C BC #### [facility] [address] [address] [address] Vangie Devine Sodium [Moles/Vol] 137 mmol/L Normal 136-145 [facility] Comment on above: Performed By: #### C BC #### [facility] [address] [address] [address] Vangie Devine Urea nitrogen [Mass/Vol] 9.0 mg/dL Normal 7.0-18.0 [facility] Comment on above: Performed By: #### C BC #### [facility] [address] [address] [address] Vangie Devine Urea nitrogen/Creatinine [Mass ratio] 10.1 mg/mg Normal [facility] Comment on above: Performed By: #### C BC #### [facility] [address] [address] [address] Vangie Devine Cardiac Stress Teston 2021 Cardiac Stress Test [address], [address] [place] [address] Exercise Stress Test Patient Name: JAVIER Ordering Physician: [id number] Nolan Garibay [place] [facility] [place]: 01/26/2022 Reading Physician: [id number] Myke Levin MD MRN/PID: [id number] Supervising [id number] Myke Levin Physician: Accession/Order#: [id number] Referring Physician: [id number] NOLAN GARIBAY Date of : 1970 PCP: Gender: F Fellow: Height: 147.32 cm Nurse: Joe Elmore RN Weight: 84.37 kg Hose Seamer: ADE BSA: 1.77 m2 Technologist: BMI: 38.87 kg/m2 Additional Staff: Age: 52 years cc report to: Patient Location: cc report to: [id number] Nolan Garibay DO Study Type: Cardiac Stress Test Diagnosis/ICD: I21.09-ST elevation (STEMI) myocardial infarction involving other coronary artery of anterior wall; I51.3-Intracardiac thrombosis, not elsewhere classified Indication: MN Procedure/CPT: Stress Test Interpretation-[id number]; Stress Test Supervision-[id number] Falls Risk: Low: Patient has low risk [...] rhythm. Normal sinus rhythm with anteroseptal wall MN. Stress Stage Data: + +-- -+------+-------+ HR [...] The adequate level of stress was achieved. [id number] Myke Levin MD Electronically signed on 01/26/2022 at 5:41:45 PM Final Normal [facility] Cardiac Stress Test [facility] DO Work Phone: Tobacco Screening.on 022 Adult depression screening assessment Yes -[facility] [facility] 250 DO Work Phone: Adult depression screening assessment No -[facility] [facility] 250 DO Work Phone: Fall risk assessment c) Not medically indicated -[facility] [facility] 250 DO Work Phone: Tobacco use status [facility] b) No [facility] y 250 DO Work Phone: Tobacco Screening. 0-Not at all [facility] y 250 DO Work Phone: Tobacco Screening. 1-Several days [facility] DO Work Phone: Tobacco Screening. 2-More than half the days [facility] Work Phone: Tobacco Screening. Not difficult at all [facility] Work Phone: Laboratory - Coagulationon 0 01-17-2022 INR Coag (Bld) [Relative time] 1.56 {INR} [facility] Work Phone: PROTIMEon 01-17-2022 INR Coag (PPP) [Relative time] 1.56 {INR} Normal [facility] Comment on above: Performed By: #### C JOBY #### [facility] [address] [place] [address] Dr. Vangie Devine INR GUIDELINES SEE BELOW Normal [facility] Comment on above: Result Comment: MARY ANN RED INR: 2.0 - 3.0 CONDITIONS NOT LISTED BELOW 2.5 - 3.5 FOR PROSTHETIC HEART VALVE REPLACEMENT 2.5 - 3.5 RECURRENT THROMBOSIS Performed By: #### C JOBY #### [facility] [address] [place] [address] Dr. Vangie Devine PT Coag (PPP) [Time] 16.4 s Critically high 9.0-11.6 [facility] Comment on above: Performed By: #### C JOBY #### [facility] [address] [place] [address] Dr. Vangie Devine Activated partial thrombopla stin time (aPTT) in platelet poor plasma by coagulation aOrdered By: Isidra Garibay on 01-14-2022 aPTT Coag (PPP) [Time] 34.5 s 25.1-36.5 [facility] Creatinine and Glomerular fi ltration rate.predicted panel (S/P/Bld)Ordered By: Isidra Garibay on 01-14-2022 Creatinine [Mass/Vol] 0.69 mg/dL 0.44-1.03 [facility] Estimated glomerular filtrat ion rate (GFR) non- AmericanOrdered By: Isidra Garibay on 01-14-2022 GFR/1.73 sq M.predicted among non-blacks MDRD (S/P/Bld) [Vol rate/Area] > 60 mL/Min [facility] - CoagulationOrde red By: Isidra Garibay on 01-14-2022 PT Coag (PPP) [Time] 17.7 s 9.0-12.9 [facility] No Panel InformationOrdered By: Isidra Garibay on 01-14-2022 Estimated GFR () > 60 mL/Min [facility] Comment on above: GFR estimated refere nce range: According to KDOQI guidelines, <60 ml/min/1.73m2 is sufficient to diagnose a patient with chronic kidney disease. Pharmacy Creatinine Clearance (Chem 94.39 [facility] Platelet poor plasma interna tional normalized ratio (INR) by coagulation assay (relatOrdered By: Isidra Garibay on 01-14-2022 INR Coag (PPP) [Relative time] 1.6 {INR} [facility] Comment on above: INR Therapeutic [...] on 01-14-2022 Calcium [Mass/Vol] 8.5 mg/dL 8.2-10.2 [facility] Serum or plasma chloride francesca surement (moles/volume)Ordered By: Isidra Garibay on 01-14-2022 Chloride [Moles/Vol] 99 mmol/L 95-114 [facility] Serum or plasma glucose ivana urement (mass/volume)Ordered By: Isidra Garibay on 01-14-2022 Glucose [Mass/Vol] 101 mg/dL 70-100 [facility] Comment on above: ADA recommended refe rence range Random Glucose Reference Range is dependent on time and content of last meal. Glucose of more than 200 mg/dL in a nonstressed, ambulatory subject supports the diagnosis of Diabetes Mellitus. Serum or plasma potassium me asurement (moles/volume)Ordered By: Isidra Garibay on 01-14-2022 Potassium [Moles/Vol] 4.2 mmol/L 3.5-5.1 [facility] Serum or plasma sodium measu rement (moles/volume)Ordered By: Isidra Garibay on 01-14-2022 Sodium [Moles/Vol] 129 mmol/L 136-146 [facility] Serum or plasma total carbon dioxide measurement (moles/volume)Ordered By: Isidra Garbiay on 01-14-2022 CO2 [Moles/Vol] 21.8 mmol/L 22.0-30.0 [facility] Serum or plasma urea nitroge n measurement (mass/volume)Ordered By: Isidra Garibay on 01-14-2022 Urea nitrogen [Mass/Vol] 8 mg/dL 9-23 [facility] Albumin [Mass/volume] in Ser um or PlasmaOrdered By: Isidra Garibay on 01-11-2022 Albumin [Mass/Vol] 2.9 g/dL 3.2-5.5 [facility] Cholesterol [Mass/volume] in Serum or PlasmaOrdered By: Isidra Garibay on 01-11-2022 Cholesterol [Mass/Vol] 109 mg/dL 140-200 [facility] Comment on above: Chol less than 200 m g/dl low risk Chol 201-239 mg/dl borderline risk Chol 240 mg/dl and greater high risk Cholesterol in LDL Calc [Mas s/Vol]Ordered By: Isidra Garibay on 01-11-2022 Cholesterol in LDL [Mass/Vol] 49 mg/dL 0-100 [facility] Comment on above: LDL ATP III CLASSIFI CATION LDL less than 100 mg/dL Optimal LDL 100-129 mg/dL Near or above optimal LDL 130-159 mg/dL Borderline high LDL 160-189 mg/dL High LDL greater than 189 mg/dL Very high Cholesterol in VLDL Calc [Ma ss/Vol]Ordered By: Isidra Garibay on 01-11-2022 Cholesterol in VLDL [Mass/Vol] 16 mg/dL [facility] Globulin Calc (S) [Mass/Vol] Ordered By: Isidra Garibay on 01-11-2022 Globulin (S) [Mass/Vol] 3.1 g/dL [facility] Glucose Glucometer (BldC) [M ass/Vol]Ordered By: Isidra Garibay on 01-11-2022 Glucose [Mass/Vol] 118 mg/dL [facility] Comment on above: Random Glucose Refer ence Range is dependent on time and content of last meal. Glucose of more than 200 mg/dL in a nonstressed, ambulatory subject supports the diagnosis of Diabetes Mellitus. No Panel InformationOrdered By: Isidra Garibay on 01-11-2022 Bedside Glucose Comment Glu2: cleaned meter [facility] Protein [Mass/volume] in Ser um or PlasmaOrdered By: Isidra Garibay on 01-11-2022 Protein [Mass/Vol] 6.0 g/dL 6.1-7.9 [facility] Serum or plasma alanine gore otransferase measurement without P-5'-P (enzymatic activiOrdered By: Isidra Garibay on 01-11-2022 ALT No additional P-5'-P [Catalytic activity/Vol] 58 U/L 10-60 [facility] Serum or plasma albumin/glob ulin mass ratioOrdered By: Isidra Garibay on 01-11-2022 Albumin/Globulin [Mass ratio] 0.9 {ratio} [facility] Serum or plasma alkaline carl sphatase measurement (enzymatic activity/volume)Ordered By: Isidra Garibay on 01-11-2022 ALP [Catalytic activity/Vol] 85 U/L 32-92 [facility] Serum or plasma aspartate am inotransferase measurement (enzymatic activity/volume)Ordered By: Isidra Garibay on 01-11-2022 AST [Catalytic activity/Vol] 212 U/L 10-42 [facility] Serum or plasma high density lipoprotein (HDL) cholesterol measurementOrdered By: Isidra Garibay on 01-11-2022 Cholesterol in HDL [Mass/Vol] 43 mg/dL 35-85 [facility] Comment on above: HDL CHOL ATP-III CLA SSIFICATION Cardiovascular Risk HDL > or equal to 60 mg/dL LOW HDL < 40 mg/dL HIGH Serum or plasma total biliru bin measurement (mass/volume)Ordered By: Isidra Garibay on 01-11-2022 Bilirubin [Mass/Vol] 0.6 mg/dL 0.3-1.2 [facility] Serum or plasma total choles terol/high density lipoprotein (HDL) cholesterol mass ratOrdered By: Isidra Garibay on 01-11-2022 Cholesterol.total/Chol esterol in HDL [Mass ratio] 2.5 {ratio} [facility] Triglyceride [Mass/volume] i n Serum or PlasmaOrdered By: Isidra Garibay on 01-11-2022 Triglyceride [Mass/Vol] 83 mg/dL 35-149 [facility] Comment on above: TRIG ATP [...] 01-11-2022 Troponin I.cardiac High sensitivity method [Mass/Vol] 97538 pg/mL 0-15 [facility] Comment on above: Results called at 0805 on 01/11/22 AMYLASEon 01-10-2022 Amylase [Catalytic activity/Vol] 37 U/L Normal 25-115 [facility] Comment on above: Performed By: #### C BC #### [facility] [address] [address] [address] Vangie Devine CARDIAC CHASTITY ADMITon 022 CK [Catalytic activity/Vol] 206 U/L Critically high 26-192 [facility] Comment on above: Performed By: #### C BC #### [facility] [address] [place], [place] [address] Dr. Vangie Devine CK.MB [Mass/Vol] 3.65 ng/mL Critically high <=3.60 [facility] Comment on above: Performed By: #### C BC #### [facility] [address] [place] [address] Dr. Vangie Devine HSTROP 80.4 pg/mL Critically high 4.0-51.3 [facility] Comment on above: Result Comment: CUT- OFF POINTS HAVE BEEN ESTABLISHED BASED ON THE FOURTH UNIVERSAL DEFINITIONS OF MYOCARDIAL INFARCTION. THE UPPER REFERENCE LIMIT (URL) OF TROPONIN, DEFINED THE 99TH PERCENTILE OF cTnI DISTRIBUTION IN A REFERENCE POPULATION, HAS BEEN CONFIRMED THE DECISION THRESHOLD FOR [place] DIAGNOSIS. Performed By: #### C BC #### [facility] [address] [place] [address] Dr. Vangie Devine AJ 119 ng/mL Critically high 9-82 [facility] Comment on above: Performed By: #### C BC #### [facility] [address] [place] [address] Dr. Vangie Devine CBC W MANUAL DIFFon 01-11-20 22 ATYPICAL LYMPH # 0.93 103/ul Normal [facility] Comment on above: Performed By: #### C BCMAN #### [facility] [address] [place] [address] Dr. Vangie Devine ATYPICAL LYMPH % 3 % Normal [facility] Comment on above: Performed By: #### C BCMAN #### [facility] [address] [place] [address] Dr. Vangie Devine BAND # 1.6 103/ul Critically high 0.0-0.3 [facility] Comment on above: Performed By: #### C BCMAN #### [facility] [address] [place] [address] Dr. Vangie Devine BAND % 5 % Normal 0-5 [facility] Comment on above: Performed By: #### C BCMAN #### [facility] [address] [place] [address] Dr. Vangie Devine BASOM # 0.00 103/ul Normal 0.00-0.10 [facility] Comment on above: Performed By: #### C BCMAN #### [facility] [address] [place] [address] Dr. Vangie Devine BASOM % 0.0 % Critically low 0.2-2.0 [facility] Comment on above: Performed By: #### C JOBY #### [facility] [address] [place] [address] Dr. Vangie Devine BLAST # 0.0 103/ul Normal [facility] Comment on above: Performed By: #### C JOBY #### [facility] [address] [place] [address] Dr. Vangie Devine BLAST % Normal [facility] Comment on above: Performed By: #### C JOBY #### [facility] [address] [place] [address] Dr. Vangie Devine CORRECTED WBC Normal 4.0-11.0 [facility] Comment on above: Performed By: #### C JOBY #### [facility] [address] [place] [address] Dr. Vangie Devine EOS # 0.00 103/ul Normal 0.00-0.70 [facility] Comment on above: Performed By: #### C JOBY #### [facility] [address] [place] [address] Dr. Vangie Devine EOS% 0.0 % Critically low 0.9-7.0 [facility] Comment on above: Performed By: #### C JOBY #### [facility] [address] [place] [address] Dr. Vangie Devine HCT 42.0 % Normal 36.0-48.0 [facility] Comment on above: Performed By: #### C JOBY #### [facility] [address] [place] [address] Dr. Vangie Devine HGB 14.6 g/dl Normal 12.0-16.0 [facility] Comment on above: Performed By: #### C JOBY #### [facility] [address] [place] [address] Dr. Vangie Devine HYPERSEG NEUT 1+ Normal [facility] Comment on above: Performed By: #### C JOBY #### [facility] [address] [place] [address] Dr. Vangie Devine LYMPHM # 4.03 103/ul Critically high 1.20-3.[address] [facility] Comment on above: Performed By: #### C JOBY #### [facility] [address] [address] [address] Vangie Devine LYMPHM% 13.0 % Critically low 20.5-60.0 [facility] Comment on above: Performed By: #### C JOBY #### [facility] [address] [address] [address] Vangie Devine MCH 32.7 pg Normal 26.7-34.0 [facility] Comment on above: Performed By: #### C JOBY #### [facility] [address] [address] [address] Vangie Devine MCHC 34.8 g/dl Normal 29.9-35.2 [facility] Comment on above: Performed By: #### C JOBY #### [facility] [address] [address] [address] Vangie Devine MCV 94.2 fL Normal 81.0-99.0 [facility] Comment on above: Performed By: #### C JOBY #### [facility] [address] [address] [address] Vangie Devine METAMYELOCYTE # 1.2 103/ul Normal [facility] Comment on above: Performed By: #### C JOBY #### [facility] [address] [address] [address] Vangie Devine METAMYELOCYTE % 4 % Normal [facility] Comment on above: Performed By: #### C JOBY #### [facility] [address] [address] [address] Vnagie Devine MONOM# 0.93 103/ul Critically high 0.30-0.[address] [facility] Comment on above: Performed By: #### C JOBY #### [facility] [address] [address] [address] Vangie Devine MONOM% 3.0 % Normal 1.7-12.0 [facility] Comment on above: Performed By: #### C JOBY #### [facility] [address] [address] [address] Vangie Devine MPV 10.4 fL Normal 9.5-13.5 [facility] Comment on above: Performed By: #### C JOBY #### [facility] [address] [address] [address] Vangie Devine MYELOCYTE # 0.9 103/ul Normal [facility] Comment on above: Performed By: #### C JOBY #### [facility] [address] [address] [address] Vangie Devine MYELOCYTE % 3 % Normal [facility] Comment on above: Performed By: #### C JOBY #### [facility] [address] [address] [address] Vangie Devine NRBC 0 Normal [facility] Comment on above: Performed By: #### C JOBY #### [facility] [address] [address] [address] Vangie Devine PLT 460 103/ul Critically high 150-450 [facility] Comment on above: Performed By: #### C JOBY #### [facility] [address] [address] [address] Vangie Devine RBC 4.46 106/ul Normal 4.20-5.40 [facility] Comment on above: Performed By: #### C JOBY #### [facility] [address] [place] [address] Dr. Vangie Devine RDW 12.6 % Normal 11.0-15.0 [facility] Comment on above: Performed By: #### C JOBY #### [facility] [address] [address] [address] Vangie Devine SEG # 21.39 103/ul Critically high 1.40-6.50 [facility] Comment on above: Performed By: #### C JOBY #### [facility] [address] [address] [address] Vangie Devine SEG % 69.0 % Normal 43.0-75.0 [facility] Comment on above: Performed By: #### C JOBY #### [facility] [id number] Vangie Devine WBC 31.0 103/ul Critically high 4.0-11.0 [facility] Comment on above: Performed By: #### Baldemar HEMPHILL #### [facility] [address] [place], [place] [id number] Dr. Vangie Devine Covid-19 PCR ([facility])on 12-14 SARS-CoV-2 (COVID-19) RNA SAMIR+probe Ql (Unsp spec) Not detected Normal NOT DETECTED [facility] Comment on above: Result Comment: When [...] for this test is supported by the [employer] Examiner of Health and Human Service's declaration that [...] used). Performed By: #### Baldemar HEMPHILL #### [facility] [address] [place], [place] [id number] Dr. Vangie Devine LIPASEon 01-10-2022 Lipase [Catalytic activity/Vol] 63.0 U/L Critically low 73.0-393.0 [facility] Comment on above: Performed By: #### Baldemar HEMPHILL #### [facility] [address] [place] [address] Dr. Vangie Devine Laboratory - Chemistry and C hemistry - challengeOrdered By: Isidra Garibay on 01-10-2022 Magnesium [Mass/Vol] 2.0 mg/dL 1.6-2.6 [facility] PROTIMEon 01-10-2022 INR Coag (PPP) [Relative time] 1.01 {INR} Normal [facility] Comment on above: Performed By: #### P TT, PT #### [facility] [address] [place] [address] Dr. Vangie Devine INR GUIDELINES SEE BELOW Normal [facility] Comment on above: Result Comment: MARY ANN RED INR: 2.0 - 3.0 CONDITIONS NOT LISTED BELOW 2.5 - 3.5 FOR PROSTHETIC HEART VALVE REPLACEMENT 2.5 - 3.5 RECURRENT THROMBOSIS Performed By: #### P TT, PT #### [facility] [address] [place], [place] [id number] Dr. Vangie Devine PT Coag (PPP) [Time] 10.9 s Normal 9.0-11.6 [facility] Comment on above: Performed By: #### P TT, PT #### [facility] [address] [place] [address] Dr. Vangie Devine PTTon 01-10-2022 aPTT Coag (Bld) [Time] 26.3 s Normal 22.3-36.2 [facility] Comment on above: Performed By: #### P TT, PT #### [facility] [address] [place] [address] Dr. Vangie Devine XR CHEST 1 Von 01-10-2022 XR CHEST 1 V CLINICAL HISTORY: Chest pain COMPARISON: Chest radiograph 12/20/2015 at [facility]. FINDINGS: Portable AP view of the chest obtained. Cardiomediastinal silhouette is normal. Lungs are clear, no evidence of infiltrate, suspicious nodule, or mass. No evidence of significant pleural fluid on this portable projection. No acute bony abnormality. IMPRESSION: No acute abnormality. Electronically authenticated by: MADELAINE ALVA Date: 2022-01-10 10:16 Normal The [facility] WRIST LEFT 3 VWSon 2 WRIST LEFT 3 S [facility] Department of Radiology [address] [place] [phone] Patient Name: JAVIER LINK : 1970 [...] demineralization. Electronically signed: QUANG RUFFIN. Transcribed by: [email or web address], User Resident: Electronically Signed by: QUANG RUFFIN @ 09/10/2021 09:04 AM Normal [facility] Comment on above: Order Comment: Evalu ate Operative Reporton Operative Report MR#: [id number] S [facility] Pt. Name: Javier Link Room #: 0C Discharge Date: Birthdate: 1970 OPERATIVE REPORT DATE OF SURGERY: 07/22/2021 SURGEON: Rafi Biswas M.D. PREOPERATIVE DIAGNOSIS: Kienbock's disease, stage IV, left lunate. POSTOPERATIVE DIAGNOSIS: Kienbock's disease, stage IV, left lunate. PROCEDURE: Proximal row carpectomy, left wrist. MANAGER CALL: Maricarmen Liao M.D. ANESTHESIA: Regional. INDICATION FOR [...] took some 3-0 TiCron and put a wpsztc-za-etfox suture in that dorsal portion of the TFCC right near the ulnar styloid where the small tear was. The volar part of the TFCC looks good. Once that was in, the dorsal capsule was closed with multiple skupyz-bf-scmrt sutures of 2-0 Vicryl. The subcutaneous tissue [...] Biswas M.D. Date Trans: 07/22/2021 10:32 A/mmo [id number] cc: Moriah Mack M.D. [address] [place] [id number] Normal [facility] POC GLUCOSE LABon 07-22-2021 Glucose [Mass/Vol] 85 mg/dL Normal 70-100 [facility] Comment on above: Performed By: #### 8 [id number] #### [address] MRI WRIST WO CONTRAST RIGHTo n 06-09-2021 MRI WRIST WO CONTRAST RIGHT [facility] Department of Radiology [address] [place] [phone] Patient Name: JAVIER LINK : 1970 [...] [facility] for CPT 25630 Auth#[id number] Valid 05/20/21-06/19/21 Med Nec-Passed *SLA Comments: Evidence Keinbock's R wrist on outside x-ray, evaluate for staging and surgical planning. 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 Electronically signed: Liz Harp. Transcribed by: [email or web address], User Resident: Electronically Signed by: LIZ HARP @ 06/11/2021 09:46 AM Normal [facility] Comment on above: Order Comment: Evide nce Keinbock's R wrist on outside x-ray, evaluate for staging and surgical planning. , Side: RIGHT WRIST LEFT 3 [facility] 1 WRIST LEFT 3 [facility] Department of Radiology [address] [place] [phone] Patient Name: JAVIER LINK : 1970 Sex: F Age: Race: White Pt. 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 COMPARISON: None. IMPRESSION: 1. Subtle sclerosis lunate suggests possibility of osteonecrosis. No significant ulnar variance. 2. No acute fracture. No dislocation. Likely remote injury ulnar styloid. 3. Borderline widening scapholunate interval. 4. Multiple moderate triscaphe and radiocarpal arthritis. Electronically signed: Alonso Iglesias. Transcribed by: [email or web address], User Resident: Electronically Signed by: ALONSO IGLESIAS @ 05/19/2021 12:56 PM Normal [facility] Comment on above: Order Comment: evalu ate WRIST RIGHT 3 Son 05-18-20 21 WRIST RIGHT 3 S [facility] Department of Radiology [address] [place] [phone] Patient Name: JAVIER LINK : 1970 [...] variance. Electronically signed: Alonso Iglesias. Transcribed by: [email or web address], User Resident: Electronically Signed by: ALONSO IGLESIAS @ 05/19/2021 12:55 PM Normal [facility] Comment on above: Order Comment: evalu ate Vital Signs Date Time Vital Sign Value Performing Clinician Facility 01-20-2022 12:07-0400 Diastolic blood pressure 58 mm[Hg] No PCP None [facility] DO Work Phone: 01-20-2022 12:07-0400 Systolic blood pressure 105 mm[Hg] No PCP None [facility] DO Work Phone: 01-20-2022 11:58-0400 Body height 147.32 cm No PCP None [facility] DO Work Phone: 01-20-2022 11:58-0400 Body mass index (BMI) [Ratio] 38.87 kg/m2 No PCP None [facility] DO Work Phone: 01-20-2022 11:58-0400 Body surface area Derived from formula 1.77 m2 No PCP None [facility] DO Work Phone: 01-20-2022 11:58-0400 Body weight 84.37 kg No PCP None [facility] DO Work Phone: 01-20-2022 11:58-0400 Diastolic blood pressure 62 mm[Hg] No PCP None [facility] DO Work Phone: 01-20-2022 11:58-0400 Heart rate 60 /min No PCP None [facility] DO Work Phone: 01-20-2022 11:58-0400 Systolic blood pressure 110 mm[Hg] No PCP None [facility] DO Work Phone: 01-20-2022 11:58-0400 6 1 No PCP None [facility] DO Work Phone: Comment on above: PHQ-9 TS 01-14-2022 13:04-0400 Heart rate 74 /min DO W Clarke Garibay Work Phone: [facility] 01-14-2022 13:04-0400 Respiratory rate 20 /min DO W Clarke Yusufdon Work Phone: [facility] 01-14-2022 12:00-0400 Body temperature 98.4 [degF] DO W Clarke Yusufdon Work Phone: [facility] 01-14-2022 12:00-0400 Diastolic blood pressure 69 mm[Hg] DO W Clarke Bebo Work Phone: [facility] 01-14-2022 12:00-0400 SaO2% (BldA) [Mass fraction] 96 % DO W Clarke Yusufdon Work Phone: [facility] 01-14-2022 12:00-0400 Systolic blood pressure 98 mm[Hg] DO W Clarke Bebo Work Phone: [facility] 01-14-2022 04:55-0400 Body weight 85 kg DO W Clarke Garibay Work Phone: [facility] 01-12-2022 08:00-0400 Inhaled oxygen flow rate 3 L/min DO W Clarke Garibay Work Phone: [facility] 01-11-2022 16:45-0400 Inhaled oxygen concentration 50 % DO W Clarke Garibay Work Phone: [facility] 01-11-2022 00:00-0400 35 1 No PCP None -[facility] DO Work Phone: Comment on above: [id number] 01-10-2022 13:01-0400 Body height 147.32 cm DO W Clarke Garibay Work Phone: [facility] 01-10-2022 13:01-0400 Body mass index (BMI) [Ratio] 39.2 kg/m2 DO W Clarke Garibay Work Phone: [facility] Encounters Encounter Date Encounter Type Care Provider Facility Start: 05-21-2024 ambulatory [facility] Start: 04-30-2024 ambulatory [facility] Start: 03-15-2024 ambulatory [facility] Start: 02-27-2024 End: 02-27-2024 ambulatory [facility] Start: 02-07-2024 ambulatory DELL WEAVER [facility] Start: 01-22-2024 ambulatory [facility] Start: 01-22-2024 Encounter for preprocedural cardiovascular examination [facility] Start: 01-12-2024 End: 01-12-2024 ambulatory YELENA CRUZ [facility] Start: 07-31-2023 End: 07-31-2023 ambulatory CIRILO RUBALCAVA [facility] Start: 07-18-2023 End: 07-18-2023 ambulatory ALTON PARKS [facility] Start: 06-28-2023 End: 06-28-2023 ambulatory DEENA BENTON [facility] Start: 05-23-2023 End: 05-23-2023 ambulatory RAFI BISWAS [facility] Start: 12-21-2022 End: 12-22-[address] [...] Start: 01-27-2022 Chart Update No PCP None [facility] DO Work Phone: Start: 01-20-2022 End: 02-11-2022 ambulatory SHAIKH Sergo HERRERA Facility:[facility] Start: 01-20-2022 Transitional care moni clark srvc 7 day discharge No PCP None [facility] DO Work Phone: Start: 01-17-2022 End: 01-18-[address] NOLAN GARIBAY Facility:[facility] Start: 01-10-2022 End: 01-14-2022 Evaluation and management of inpatient DO W Clarke Garibay Work Phone: [facility] Start: 01-10-2022 End: 01-10-2022 ambulatory HASMUKH KATZ . Facility:[facility] Start: 07-22-2021 End: 07-23-2021 ambulatory RAFI BISWAS Facility:[facility] Procedures Date Procedure Procedure Detail [...] Nolan Garibay, Status: Pen, Time: 10:50 AM [facility] DO Work Phone: Start: 03-21-2022 FUV, Provider: Beth Hull, Status: Pen, Time: 8:30 AM FUV, Provider: Beth Hull, Status: Pen, Time: 8:30 AM [facility] DO Work Phone: Start: 03-14-2022 ECHO, Provider: [facility] ULTRASOUND 01,[id number], Status: Pen, Time: 10:45 AM ECHO, Provider: [facility] ULTRASOUND 01,[id number], Status: Pen, Time: 10:45 AM [facility] DO Work Phone: Start: 01-26-2022 STRESS MARK, Provider : L[facility]AS [facility] NUCLEAR 01,[id number], Status: Pen, Time: 2:00 PM STRESS MARK, Provider: [facility] NUCLEAR 01,[id number], Status: Pen, Time: 2:00 PM [facility] DO Work Phone: Patient Education Coronary Angio plasty (DC) Angina (DC) Drug Eluting Stents [facility] Work Phone: Patient referral [facility] Work Phone: Payers Date Payer Category Payer Medicare [id number] 2019 Unknown [id number] 1970 Unknown [id number] 2.16.8 [id number] 1970 Unknown [id number] 2.16.84 0.1.718576.3.579.2.593 1970 Unknown [id number] 2.16.84 0.1.720926.3.579.2.593 1970 Unknown [id number] 2.16.84 0.1.447875.3.579.2.593 1970 Unknown [id number] 2.16.84 0.1.241611.3.579.2.593 1970 Unknown [id number] 2.16.84 0.1.817991.3.579.2.593 1970 Unknown [id number] 2.16.84 0.1.711502.3.579.2.593 1970 Unknown [id number] 2.16.84 0.1.916364.3.579.2.593 1970 Unknown [id number] 2.16.84 0.1.793820.3.579.2.593 1971 Unknown [id number] 2.16.84 0.1.093643.3.579.2.593 1971 Unknown [id number] 2.16.84 0.1.896308.3.579.2.593 1971 Unknown [id number] 2.16.84 0.1.500752.3.579.2.593 1971 Unknown [id number] 2.16.84 0.1.708494.3.579.2.593 1971 Unknown [id number] 2.16.84 0.1.725144.3.579.2.593 1971 Unknown [id number] 2.16.84 0.1.249743.3.579.2.593 1971 Unknown [id number] 2.16.84 0.1.194993.3.579.2.593 1971 Unknown [id number] 2.16.84 0.1.658374.3.579.2.593 1971 Unknown [id number] 2.16.84 0.1.835641.3.579.2.593 1971 Unknown [id number] 2.16.84 0.1.090457.3.579.2.593 1971 Unknown [id number] 2.16.84 0.1.328758.3.579.2.593 1971 Unknown [id number] 2.16.84 0.1.219536.3.579.2.593 1958 Self-pay [id number] Unknown Unknown [id number] 2.16.84 0.1.518289.3.579.2.593 Unknown [id number] 2.16.8 40.1.883820.3.579.2.531 Social History Date Type Detail Facility Daily caffeine consumption Daily caffeine consumption [facility] Work Phone: Comment on above: 3-4; quit 1 week ago; Start: 01-10-2022 [facility] Start: 1970 Sex Assigned At Female F [facility] Medical Equipment Procedure Code Equipment Code Equipment Origin al Text Equipment Identifier Dates Drug-eluting coronary artery stent, [id number] lymer-coated ()[id number] FDA Start: 01-10-2022 Drug-eluting coronary artery stent, tny-uvtunfqriqjrc-ny lymer-coated ()[id number] FDA Start: 01-10-2022 Goals Date Patient Goal Desired Activity /State Functional Status Date Assessment Result Facility 01-20-2022 PHQ-9 [id number] Mild (5-9) [facility] DO Work Phone: 01-14-2022 Functional status Patient at [facility] Work Phone: 01-10-2022 Functional status Disability Sta tus Patient at Baseline [facility] Work Phone: Mental Status Date Assessment Result Facility 01-10-2022 Cognitive function Cognitive Sta tus Patient at Baseline [facility] Work Phone: Clinical Notes 01-10-2022 to [...] All other systems reviewed and are negative. [facility] 01-12-2024 Note UTP CARDIOLOGY PROGR ESS NOTE HPI: Javier Link is a 53 y.o. female here for routine 6 month f/u HPI Pleasant 53 yo female presents for routine F/U for chronic systolic heart failure, CAD, and LV thrombus. Patient presents today with noted weight loss since last visit that she has been doing purposefully. She continues with cardiac rehab exercise at [facility]. She denies chest pain, shortness of [...] 52-year-old woman. On 01/10/2022 she presented to [facility] with STEMI and was found to [...] is enrolled in cardiac rehab at the [facility] and doing well with that. Anticoagulation clinic at the [facility] follows her warfarin levels. Testing: ECG [...] 28 mm skypoint, 2.5 x 18 mm [place]. An intra-aortic balloon pump was placed. Visit [...] syncope and le (more content not included)... [facility] 01-12-2024 Note HTN is well-controll ed with current med regimen and renal function stable [facility] 01-12-2024 Note [facility] II-currently eu volemic without exacerbation, no activity limiting symptoms Continue GDMT-aspirin, Lipitor, Coreg, Jardiance, Entresto and Aldactone with Diuretic therapy of Lasix 40 mg daily Monitor daily weights, I&O, fluid restriction 1.5-2L/day, renal function and electrolytes- [facility] 01-12-2024 Note Coronary artery dise ase is unchanged. Continue current medications. Cardiac status will be reassessed in 6 months. Continue goal-directed medical therapy with aspirin, Lipitor, Plavix, Coreg [facility] 01-12-2024 Note Lipid abnormalities are unchanged, well controlled; PCP monitoring LFT. Pharmacotherapy as ordered. Lipids will be reassessed annually. [facility] 01-12-2024 Note No thrombus noted on last 2 TTE [facility] 07-31-2023 Note Subjective Javier Link is [...] for 2023 because she is switching to [facility] Medicare. Historical: Failed Class I topical steroids, [...] sun safety. Call for any acute issues. [facility] 06-28-2023 Note [place] Cardiology - [facility] Subjective Javier Link is a [...] 52-year-old woman. On 01/10/2022 she presented to [facility] with STEMI and was found to [...] is enrolled in cardiac rehab at the [facility] and doing well with that. Anticoagulation clinic at the [facility] follows her warfarin levels. Testing: ECG [...] 28 mm skypoint, 2.5 x 18 mm [place]. An intra-aortic balloon pump was placed. Visit [...] exertion NYHA class (more content not included)... [facility] 05-23-2023 Note Orthopedic Surgery Subjective Pain [...] History: Diagnosis Date CHF (congestive heart failure) ([facility]) Coronary artery disease Hyperlipidemia Hypertension Left ventricular thrombus NSTEMI (non-ST elevated myocardial infarction) ([facility]) Objective General: Body mass index is 36.37 [...] steven and AROM, Long finger: normal A1 stevne and AROM, Ring finger: normal A1 steven and AROM, and Small finger: normal A1 steven and AROM Strength: institutional aide 5/5, thumb 5/5, interossei 5/5 Sensation: intact [...] finger: normal A1 steven and AROM Strength: institutional aide 5/5, thumb 5/5, interossei 5/5 Sensation: intact [...] to verify the correct patient, procedure, equipment, software support analyst and site/side marked as required. Patient was [...] right thumb C (more content not included)... [facility] 05-23-2023 Note Patient ID: Javier Link [...] to verify the correct patient, procedure, equipment, software support analyst and site/side marked as required. [facility] 10-31-2022 Note CARDIAC STRESS TEST Requesting [...] CAD evaluation with invasive stress test. The [facility] 01-13-2022 Progress note Note Date/Time January 13, 2022 3:15pm [facility] [address] [place] [address] Cardiology Progress Note Signed Patient: Javier Link MR#: [id number] : 1970 Acct:[id number] Age/Sex: 51 / F Adm Date: 2 Loc: Room: [address] [place] [address] Type : ADM IN Attending Dr: Isidra [...] <Electronically signed by Isidra Garibay DO> 01/13/22 3029 [facility] Work Phone: 1(795) 139-137006-01-2022 Progress note Author Isidra Garibay [facility] January 12, 2022 3:16pm Note Date/Time January 12, 2022 3:16p m [facility] [address] [place] [address] Cardiology Progress Note Signed Patient: Javier Link MR#: [id number] : 1970 Acct:[id number] Age/Sex: 51 / F Adm Date: 2 Loc: Room: [address] [place] [address] Type : ADM IN Attending Dr: Isidra [...] <Electronically signed by Isidra Garibay DO> 01/12/22 1512 [facility] Work Phone: 1(352) 586-774905-31-2022 Progress note Author Isidra Garibay [facility] January 11, 2022 1:38pm Note Date/Time January 11, 2022 1:38p m [facility] [address] [place], [place] [id number] Cardiology Progress Note Signed Patient: Javier Link MR#: [id number] : 1970 Acct:[id number] Age/Sex: 51 / F Adm Date: 2 Loc: Room: 1J4312-0 Type : ADM IN Attending Dr: Isidra [...] ALT Alkaline Phosphatase Troponin I High Sens 11991 H* Total Protein Albumin Globulin Albumin/Globulin Ratio [...] ALT Alkaline Phosphatase Troponin I High Sens 092846 H* Total Protein Albumin Globulin Albumin/Globulin Ratio Triglycerides Cholesterol LDL Cholesterol, Calc VLDL Cholesterol HDL Cholesterol Cholesterol/HDL Ratio 01/10/22 01/10/22 01/10/22 20:42 21:57 23:37 APTT PHA Creatinine Clear Sodium Potassium Chloride Carbon Dioxide BUN Creatinine Est GFR ( Amer) Est GFR (Non-Af Amer) Glucose POC Glucose 148 Calcium Magnesium Total Bilirubin AST ALT Alkaline Phosphatase Troponin I High Sens 691794 H* 145582 H* Total Protein Albumin Globulin Albumin/Globulin Ratio [...] Alkaline Phosphatase 85 Troponin I High Sens 29727 H* Total Protein 6.0 L Albumin 2.9 [...] <Electronically signed by Isidra Garibay DO> 01/11/22 1338 [facility] Work Phone: 1(471) 337-815505-30-2022 History and physical note Author Isidra Garibay [facility] January 10, 2022 12:14pm Note Date/Time January 10, 2022 10:30 am [facility] [address] [place] [address] Cardiology H&P Signed Patient: Javier Link MR#: [id number] : 1970 Acct:[id number] Age/Sex: 51 / F Adm Date: 2 Loc: Room: Type: [facility] Attending Dr: Isidra Garibay DO Copies to: NON STAFF Isidra Garibay DO~ Date of Service: 01/10/2022 Cardiology HPI History of Present Illness Chief complaint: Inferolateral STEMI HPI: Ms. Link is a 51 year old female transferred from [facility] emergency room this morning after receiving phone call from Dr. Katz and reviewing electronic transmitted media and discussion about the clinical case. Patient presented with severe chest discomfort with no prior history of cardiac illness or intervention. ECGs reveal sinus rhythm with inferolateral ST elevation injury current. She was admitted restarted upstream antiplatelet and Antithrombin therapy, and transferred to the [facility] emergently. Patient arrived at [facility] ER at 0924, first ECG transmitted to nd was 0948, [facility] team was activated at 0952, patient was transferred by ground, arrived in [facility] at 1033 and underwent primary PCI at [...] ER staff, review of electronic transmitted media, [facility] staff, nursing staff and family both pre [...] changes or abnormalities: ST suggestive of injury MN, pacemaker, normal Myocardial infarction: inferior MN (acute or recent) and lateral MN (acute or recent) A&P - Cardiology (1) ST elevation myocardial infarction (STEMI) of inferolateral wall: Code(s): I21.19 - ST elevation (STEMI) myocardial infarction involving other coronary artery of inferior wall (2) Hyperlipidemia: Code(s): E78.5 - Hyperlipidemia, unspecified (3) Essential hypertension: Code(s): I10 - Essential (primary) hypertension Documented By: Isidra Garibay DO 01/10/22 1026 Signed By: <Electronically signed by Isidra Garibay DO> 01/10/22 1214 [facility] Work Phone: 1(855) 425-762905-30-2022 Procedure [facility]2022 [facility] Center[facility] complaint Narrative - Reported* 51-year-old female returns for transitional care management office visit following recent large anterior MN with associated cardiogenic shock and primary revascularization of the LAD, details of which are reviewed. She had intra-aortic balloon pump counterpulsation for 24 hours, subsequent diagnosis of LV thrombus with reduced LV function. She was transition to clopidogrel warfarin, aspirin triple therapy. She did have brief episodes of bobbi-MN/postoperative VT that stabilized on amiodarone andthen we [...] 12 weeks and myselfin approximately [address] Work Phone: Chief complaint Narrative - Reported* 51-year-old female returns for transitional care management office visit following recent large anterior MN with associated cardiogenic shock and primary revascularization of the LAD, details of which are reviewed. She had intra- aortic balloon pump counterpulsation for 24 hours, subsequent diagnosis of LV thrombus with reduced LV function. She was transition to clopidogrel warfarin, aspirin triple therapy. She did have brief episodes of bobbi-MN/postoperative VT that stabilized on amiodarone andthen we [...] 12 weeks and myselfin approximately 4 months [facility] Work Phone: Chief complaint Narrative - Reported* 51-year-old female returns for transitional care management office visit following recent large anterior MN with associated cardiogenic shock and primary revascularization of the LAD, details of which are reviewed. She had intra- aortic balloon pump counterpulsation for 24 hours, subsequent diagnosis of LV thrombus with reduced LV function. She was transition to clopidogrel warfarin, aspirin triple therapy. She did have brief episodes of bobbi-[place]/postoperative VT that stabilized on amiodarone andthen we [...] 12 weeks and myselfin approximately 4 months [facility] Work Phone: Evaluation note* Diagnosis Onset Date Resolution Status Essential hypertension acute Hyperlipidemia acute Left ventricular thrombus ac [place] [address] elevation myocardial infa rction (STEMI) of inferolateral wall acute [facility] Work Phone: Hospital Discharge instructions Additional Instructions [facility] to manage your Coumadin dosing [...] doctor or pharmacist, without first calling the blood bank attendant who implanted the stent. If you require [...] weight lifting, stair steppers, etc. until the blood bank attendant approves these activities. Check with the blood bank attendant on your first follow-up visit. CALL YOUR PHYSICIAN at [phone]: -If bleeding should occur from the catheter insertion site- apply pressure to the site then immediately call us. -Report any fever, redness, drainage, increased swelling, or firmness at the catheter insertion site. Some bruising or slight swelling may be present at the time of discharge. -Should arm or leg become cold, numb, white, or blue, contact the blood bank attendant immediately. -IF you should experience episodes of [...] is recommended. Please call Central Scheduling at [phone] to schedule your appointment.] The attending blood bank attendant or [facility] nurse clinician should provide you with specific instructions regarding activity, diet, medications, and further follow up for you. Follow the medication instructions provided on your discharge. If the dosages and instructions on this sheet differ from the dosage and instructions on the bottle, follow the instructions on the bottle. [facility] is not responsible for incorrect prescription information provided by the patient during their visit. Do not stop your medications without consulting your health care provider. Please take the list with you to your next doctor's appointment.[facility] Work Phone: Summary Purpose Family History [...] and content) DATE CREATED AUTHOR 09/11/2021 [facility] DATE CREATED AUTHOR AUTHOR'S ORGANIZ ATION 03/09/2022 [facility] DATE CREATED AUTHOR AUTHOR'S ORGANIZ ATION 12/25/2022 [facility] DATE CREATED AUTHOR AUTHOR'S ORGANIZ ATION 05/11/2024 [facility] DATE CREATED AUTHOR AUTHOR'S ORGANIZ ATION 05/22/2024 [facility] Care Teams (unrecognized sec tion and [...] BE BASED ON THE PRIMARY CLINICAL RECORDS. [facility] [employer] [facility]. provides no warranty or guarantee of the accuracy or completeness of information in this document.
[2024-06-03 10:49] LABS: Bilirubin Urine NEGATIVE (NEGATIVE); Blood Urine NEGATIVE (NEGATIVE); Clarity Urine CLEAR (CLEAR); Color Urine LT. YELLOW (YELLOW); Glucose Urine UA >=1000 mg/dL (NEGATIVE); Ketones Urine NEGATIVE (NEGATIVE); Leukocyte Esterase Urine NEGATIVE (NEGATIVE); Nitrite Urine NEGATIVE (NEGATIVE); Protein Urine NEGATIVE (NEG/TRACE); Specific Gravity Urine <=1.005 (1.005-1.025); Urobilinogen Urine 0.2 EU/dL (0.2-1.0); pH Urine 6.5 (5.0-9.0)
[2024-06-03 11:14] LABS: Bacteria Urine TRACE #/HPF (NONE SEEN); Cast Seen? NONE SEEN #/LPF (NONE SEEN); Crystals Seen? None Seen #/HPF (None Seen); Mucus Urine NONE SEEN (NONE SEEN); RBC Urine NONE SEEN #/HPF (0-2); Squamous Epithelial Cell Urine RARE #/LPF (NONE/RARE); Urine Culture Indicated NO; WBC Urine NONE SEEN #/HPF (NONE SEEN)
== END 2024-06-03 10:09 | disposition home or self-care (01) ==
LOC: LAB 10:13
PROVIDERS: PCP Nurse Practitioner Family; Visit Provider Nurse Practitioner Family
DX: N39.0 Urinary tract infection, site not specified (principal)
CPT/HCPCS: 81001; 87086; 87150; 87186

== ENCOUNTER 2024-06-07 18:42 | Emergency (ER) | payer MEDICARE, SELFPAY ==
[2024-06-07 18:47] VITALS: BP 146/100; PULSE 73; TEMP 37; O2SAT 100; BMI 31.8
--- OUTSIDE RECORDS SUMMARY | 2024-06-07 18:50 | XMS_ITS | CCD ---
Author Organization [facility] Informat ion Partnership [facility] Care Team Providers Care Evidence Custodian Name Role Phone RAFI BISWAS Attending Unavailable MORIAH MACK Primary Care Unavailable MORIAH MACK Referring Unavailable RAFI BISWAS Admitting Unavailable None, No PCP Unavailable Unavailable Unavailable Unavailable DO Isidra Garibay Admit Provider DO Isidra Garibay Attending Provider [phone] NON STAFF Primary Care Provider UnavailALTON Bowen [...] Unavailable MOUKARBEL, DR SHAFFER Consulting Unavailable VALDEZ, [facility] Primary Care Unavailable MOUKARBEL, DR SHAFFER [...] Propensity to adverse reactions (disorder) 1 [facility] Repository (4 sources) moxifloxacin; Translations: [Avelox] Drug Allergy [place] [id number] DO Work Phone: (3 sources) moxifloxacin; Translations: [moxifloxacin] Drug Allergy 2 [facility] (1 source) moxifloxacin Drug Allergy 3 [facility] Repository (1 source) Chlorhexidine; Translations: [CHLORHEXIDINE GLUCONATE] Drug Allergy 0 [facility] Repository Medications Current Medications Medication Drug Class(es) Dates Sig (Normalized) Sig (Original) [id number] 200 actuat albuterol 0.09 mg/actuat metered dose [...] 2022 1:49pm take 1 capsule by mo [facility] three times daily as needed Benzonatate [...] 2022 6:58pm take 1 capsule by mo [facility] once daily before breakfast Levothyroxine Sodium [...] MG Oral Tablet Take as directed by [facility] Quantity: 0 Refills: 0 Ordered: [...] sources) Coronary arteriosclerosis; Translations: [Coronary atherosclerosis of [place] coronary artery] Onset: 02-02-2022 Chronic Diabetes mellitus [...] 02-28-2022 Episodic Other aftercare (1 source) Other salvage determiner (current) drug therapy; Translations: [OTH LONGTERM CURRENT DRUG THERAPY] Onset: 06-07-2022 Episodic Other aftercare (4 sources) Encounter for therapeutic drug level monitoring; Translations: [ENC THERAPEUTC DRUG LEVL MONITORING] Onset: 05-15-2022 Episodic Other aftercare (1 source) 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 [facility] 36 Can we give patient sample? Normal [facility] Follow-Upon 07-31-2023 Follow-Up [id number] Javier Link 1970 Date Provider Department Center 07/31/2023 CIRILO CARMEN [facility] DERM [facility] Family History Problem Relation Age of Onset Atrial fibrillation Mother Other Mother Heart attack Father Other Father Other Father Family Status - Relation Status Age at Mother Father Level of Service:46077 [place] OFFICE/OUTPATIENT ESTABLISHED MOD MDM 30-39 MIN Reason for Visit and Comments: Follow-up [366429] - Discuss medication switch Normal [facility] Office Visiton 06-28-2023 Follow-up visit [id number] Javier Link 1970 F Date Provider Department Center 06/28/2023 DEENA GARCIA CARD [facility] Family History Problem Relation Age of Onset Atrial fibrillation Mother Other Mother Heart attack Father Other Father Other Father Family Status - Relation Status Age at Mother Father Level of Service:85379 [place] OFFICE/OUTPATIENT ESTABLISHED LOW MDM 20-29 MIN Reason for Visit and Comments: Follow-up [128223] - BP running higher. Normal [facility] Office Visiton 05-23-2023 Follow-up visit [id number] BraxtonJavier chávez Bebo 1970 F Date Provider Department Center 05/23/2023 [facility] History Problem Relation Age of Onset Atrial fibrillation Mother Other Mother Heart attack Father Other Father Other Father Family Status - Relation Status Age at Mother Father Level of Service:32643 [place] OFFICE/OUTPATIENT ESTABLISHED LOW MDM 20-29 MIN (GC,25) Reason for Visit and Comments: Pain [136] - Radiates up thumb up arm Pain [136] - Radiates up thumb up to arm. Normal [facility] PROF CHEM 8 (BAS METB)on Anion gap [Moles/Vol] 14.8 mmol/L Normal [facility] Comment on above: Performed By: #### C BC #### [facility] [address] [address] [address] Vangie Devine Calcium [Mass/Vol] 8.9 mg/dL Normal 8.5-10.1 [facility] Comment on above: Performed By: #### C BC #### [facility] [address] [address] [address] Vangie Devine Chloride [Moles/Vol] 101 mmol/L Normal 98-107 [facility] Comment on above: Performed By: #### C BC #### [facility] [address] [address] [address] Vangie Devine CO2 [Moles/Vol] 25.9 mmol/L Normal 21.0-32.0 [facility] Comment on above: Performed By: #### C BC #### [facility] [address] [address] [address] Vangie Devine Creatinine [Mass/Vol] 0.91 mg/dL Normal 0.55-1.02 [facility] Comment on above: Performed By: #### C BC #### [facility] [address] [address] [address] Vangie Devine EGFR-AF SOU[place]ORE[place] >60 Normal >=60 [facility] Comment on above: Performed By: #### C BC #### [facility] [address] [address] [address] Vangie Devine EGFR-NON AF [place] >60 Normal >=60 [facility] Comment on above: Performed By: #### C BC #### [facility] [address] [address] [address] Vangie Devine Glucose [Mass/Vol] 93 mg/dL Normal 74-106 [facility] Comment on above: Performed By: #### C BC #### [facility] [address] [place] [address] Dr. Vangie Devine Potassium [Moles/Vol] 4.7 mmol/L Normal 3.5-5.1 [facility] Comment on above: Performed By: #### C BC #### [facility] [address] [address] [address] Vangie Devine Sodium [Moles/Vol] 137 mmol/L Normal 136-145 [facility] Comment on above: Performed By: #### C BC #### [facility] [address] [place] [address] Dr. Vangie Devine Urea nitrogen [Mass/Vol] 9.0 mg/dL Normal 7.0-18.0 [facility] Comment on above: Performed By: #### C BC #### [facility] [address] [address] [address] Vangie Devine Urea nitrogen/Creatinine [Mass ratio] 9.9 mg/mg Normal [facility] Comment on above: Performed By: #### C BC #### [facility] [address] [address] [address] Vangie Devine PROF CHEM 8 (BAS METB)on Anion gap [Moles/Vol] 15.6 mmol/L Normal [facility] Comment on above: Performed By: #### P TT, PT #### [facility] [address] [address] [address] Vangie Devine Calcium [Mass/Vol] 8.9 mg/dL Normal 8.5-10.1 [facility] Comment on above: Performed By: #### P TT, PT #### [facility] [address] [address] [address] Vangie Devine Chloride [Moles/Vol] 101 mmol/L Normal 98-107 [facility] Comment on above: Performed By: #### P TT, PT #### [facility] [address] [place] [address] Dr. Vangie Devine CO2 [Moles/Vol] 24.7 mmol/L Normal 21.0-32.0 [facility] Comment on above: Performed By: #### P TT, PT #### [facility] [address] [place] [address] Dr. Vangie Devine Creatinine [Mass/Vol] 0.95 mg/dL Normal 0.55-1.02 [facility] Comment on above: Performed By: #### P TT, PT #### [facility] [address] [place] [address] Dr. Vangie Devine EGFR-AF [place]ORE[place] >60 Normal >=60 [facility] Comment on above: Performed By: #### P TT, PT #### [facility] [address] [place] [address] Dr. Vangie Devine EGFR-NON AF [place] >60 Normal >=60 [facility] Comment on above: Performed By: #### P TT, PT #### [facility] [address] [place] [address] Dr. Vangie Devine Glucose [Mass/Vol] 101 mg/dL Normal 74-106 [facility] Comment on above: Performed By: #### P TT, PT #### [facility] [address] [place] [address] Dr. Vangie Devine Potassium [Moles/Vol] 4.3 mmol/L Normal 3.5-5.1 [facility] Comment on above: Performed By: #### P TT, PT #### [facility] [address] [address] [address] Vangie Devine Sodium [Moles/Vol] 137 mmol/L Normal 136-145 [facility] Comment on above: Performed By: #### P TT, PT #### [facility] [address] [address] [address] Vangie Devine Urea nitrogen [Mass/Vol] 15.0 mg/dL Normal 7.0-18.0 [facility] Comment on above: Performed By: #### P TT, PT #### [facility] [address] [address] [address] Vangie Devine Urea nitrogen/Creatinine [Mass ratio] 15.8 mg/mg Normal [facility] Comment on above: Performed By: #### P TT, PT #### [facility] [address] [address] [address] Vangie Devine NM STRESS/REST MULTIon 10-31 NM STRESS/REST MULTI Patient: JAVIER LINK Exam Date: 10/31/2022 : 1970 Gender:F Ordering : DR DEENA BENTON M.D. Admission #: [id number] Family : Order #: [id number] CLICK HERE TO VIEW EXAM RADIOLOGY REPORT [...] M.D. on 10/31/2022 at 14:45 Normal [facility] FREE THYROXINE INDEX T7on FTI 4.83 Critically high 1.30-4.50 [facility] Comment on above: Performed By: #### C BC #### [facility] [address] [address] [address] Vangie Devine T3U 35.0 % Normal 30.0-39.0 [facility] Comment on above: Performed By: #### C BC #### [facility] [address] [address] [address] Vangie Devine T4 [Mass/Vol] 13.80 ug/dL Normal 4.80-13.90 [facility] Comment on above: Performed By: #### C BC #### [facility] [address] [address] [address] Vangie Devine TSHon 07-20-2022 TSH 0.051 uIU/mL Critically low 0.358-3.740 [facility] Comment on above: Performed By: #### C BC #### [facility] [address] [address] [address] Vangie Devine ACETONE SERUMon 06-03-2022 ACETONE Negative Normal NEGATIVE [facility] Comment on above: Performed By: #### C BCHERIBERTO #### [facility] [address] [place] [address] Dr. Vangie Devine CBC AUTO DIFFon 06-03-2022 BASO # 0.1 103/ul Normal 0.0-0.1 [facility] Comment on above: Performed By: #### C BCMAN #### [facility] [address] [place] [address] Dr. Vangie Devine Basophils/100 WBC (Bld) 0.6 % Normal 0.2-2.0 [facility] Comment on above: Performed By: #### C BCMAN #### [facility] [address] [place] [address] Dr. Vangie Devine EO # 0.3 103/ul Normal 0.0-0.7 [facility] Comment on above: Performed By: #### C BCHERIBERTO #### [facility] [address] [place] [address] Dr. Vangie Devine Eosinophils/100 WBC (Bld) 1.4 % Normal 0.9-7.0 [facility] Comment on above: Performed By: #### C BCHERIBERTO #### [facility] [address] [place] [address] Dr. Vangie Devine Erythrocyte distribution width (RBC) [Ratio] 13.2 % Normal 11.0-15.0 [facility] Comment on above: Performed By: #### C BCHERIBERTO #### [facility] [address] [place] [address] Dr. Vangie Devine Hematocrit (Bld) [Volume fraction] 44.8 % Normal 36.0-48.0 [facility] Comment on above: Performed By: #### C BCMAN #### [facility] [address] [place] [address] Dr. Vangie Devine Hemoglobin (Bld) [Mass/Vol] 15.0 g/dL Normal 12.0-16.0 [facility] Comment on above: Performed By: #### C BCMAN #### [facility] [address] [place] [address] Dr. Vangie Devine IG # 0.06 10e3/ul Critically high 0.00-0.03 [facility] Comment on above: Performed By: #### C JOBY #### [facility] [address] [place] [address] Dr. Vangie Devine IG % 0.3 % Normal 0.0-0.5 [facility] Comment on above: Performed By: #### C JOBY #### [facility] [address] [place] [address] Dr. Vangie Devine LYMPH # 3.5 103/ul Normal 1.2-3.8 [facility] Comment on above: Performed By: #### C JOBY #### [facility] [address] [place] [address] Dr. Vangie Devine Lymphocytes/100 WBC (Bld) 19.8 % Critically low 20.5-60.0 [facility] Comment on above: Performed By: #### C JOBY #### [facility] [address] [place] [address] Dr. Vangie Devine MANUAL DIFF REQ NO Normal [facility] Comment on above: Performed By: #### C JOBY #### [facility] [address] [place] [address] Dr. Vangie Devine MCH (RBC) [Entitic mass] 31.1 pg Normal 26.7-34.0 [facility] Comment on above: Performed By: #### C JOBY #### [facility] [address] [place] [address] Dr. Vangie Devine MCHC (RBC) [Mass/Vol] 33.5 g/dL Normal 29.9-35.2 [facility] Comment on above: Performed By: #### C JOBY #### [facility] [address] [place] [address] Dr. Vangie Devine MCV (RBC) [Entitic vol] 92.8 fL Normal 81.0-99.0 [facility] Comment on above: Performed By: #### C JOBY #### [facility] [address] [place] [address] Dr. Vangie Devine MONO # 1.1 103/ul Critically high 0.3-0.8 [facility] Comment on above: Performed By: #### C JOBY #### [facility] [address] [place] [address] Dr. Vangie Devine Monocytes/100 WBC (Bld) 6.0 % Normal 1.7-12.0 [facility] Comment on above: Performed By: #### C JOBY #### [facility] [address] [place] [address] Dr. Vangie Devine NEUT # 12.6 103/ul Critically high 1.4-6.5 [facility] Comment on above: Performed By: #### C JOBY #### [facility] [address] [place] [address] Dr. Vangie Devine Neutrophils/100 WBC (Bld) 71.9 % Normal 43.0-75.0 [facility] Comment on above: Performed By: #### Baldemar HEMPHILL #### [facility] [address] [place] [address] Dr. Vangie Devine Platelet mean volume (Bld) [Entitic vol] 11.0 fL Normal 9.5-13.5 [facility] Comment on above: Performed By: #### C JOBY #### [facility] [address] [place] [address] Dr. Vangie Devine PLT 179 103/ul Normal 150-450 [facility] Comment on above: Performed By: #### Baldemar HEMPHILL #### [facility] [address] [place] [address] Dr. Vangie Devine RBC 4.83 106/ul Normal 4.20-5.40 [facility] Comment on above: Performed By: #### C JOBY #### [facility] [address] [place] [address] Dr. Vangie Devine WBC 17.5 103/ul Critically high 4.0-11.0 [facility] Comment on above: Performed By: #### C JOBY #### [facility] [address] [place] [address] HEAD WO CONon [...] MARY ROJAS Date: 2022-06-03 19:15 Normal [facility] CULTURE URINEon 06-03-2022 CULTURE URINE Culture Observations : NO GROWTH. Normal [facility] Comment on above: Performed By: #### P TT, PT #### [facility] [address] [address] [address] Vangie Devine Covid-19 PCR ([facility])on 05-15 SARS-CoV-2 (COVID-19) RNA SAMIR+probe Ql (Unsp spec) Not detected Normal NOT DETECTED [facility] Comment on above: Result Comment: When [...] for this test is supported by the [place] of Health and Human Service's declaration that [...] used). Performed By: #### C BCMAN #### [facility] [address] [place] [address] Dr. Vangie Devine ER URINE PROFILEon 2 Bilirubin Ql (U) Negative Normal NEGATIVE [facility] Comment on above: Performed By: #### C BC #### [facility] [address] [place] [address] Dr. Vangie Devine Clarity (U) CLEAR Normal CLEAR [facility] Comment on above: Performed By: #### C BC #### [facility] [address] [place] [address] Dr. Vangie Devine Color (U) LT. YELLOW Normal YELLOW [facility] Comment on above: Performed By: #### C BC #### [facility] [address] [place] [address] Dr. Vangie Devine ERUAHD A micrscopic examination will be performed if indicated. Normal [facility] Comment on above: Performed By: #### C BC #### [facility] [address] [place] [address] Dr. Vangie Devine Glucose Ql (U) 250 mg/dl Abnormal NEGATIVE [facility] Comment on above: Performed By: #### C BC #### [facility] [address] [place] [address] Dr. Vangie Devine Hemoglobin Ql (U) Negative Normal NEGATIVE [facility] Comment on above: Performed By: #### C BC #### [facility] [address] [place] [address] Dr. Vangie Devine Ketones Ql (U) Negative Normal NEGATIVE [facility] Comment on above: Performed By: #### C BC #### [facility] [address] [place] [address] Dr. Vangie Devine LEUKOCYTES Negative Normal NEGATIVE [facility] Comment on above: Performed By: #### C BC #### [facility] [address] [place] [address] Dr. Vangie eDvine Nitrite Ql (U) Positive Abnormal NEGATIVE [facility] Comment on above: Performed By: #### C BC #### [facility] [address] [place] [address] Dr. Vangie Devine pH (U) 6.0 [pH] Normal 5-9 [facility] Comment on above: Performed By: #### C BC #### [facility] [address] [place] [address] Dr. Vangie Devine SPEC GRAVITY <=1.005 Abnormal 1.005-<=1.025 [facility] Comment on above: Performed By: #### C BC #### [facility] [address] [place] [address] Dr. Vangie Devine UA PROTEIN Negative Normal NEGATIVE/ TRACE [facility] Comment on above: Performed By: #### C BC #### [facility] [address] [place] [address] Dr. Vangie Devine UR MICRO IND INDICATED Normal [facility] Comment on above: Performed By: #### C BC #### [facility] [address] [place] [address] Dr. Vangie Devine Urobilinogen Qn (U) 0.2 {Jewel'U}/dL Normal 0.2 - 1. 0 [facility] Comment on above: Performed By: #### C BC #### [facility] [address] [place] [address] Dr. Vangie Devine FREE T3on 06-03-2022 FREE T3 2.42 pg/mlL Normal 2.18-3.98 [facility] Comment on above: Performed By: #### F T3 #### [facility] [address] [place] [address] Dr. Vangie Devine FREE T4on 06-03-2022 Free T4 [Mass/Vol] 1.93 ng/dL Critically high 0.76-1.46 [facility] Comment on above: Performed By: #### C BCMAN #### [facility] [address] [place] [address] Dr. Vangie Devine LACTATE/LACTIC ACIDon 10-21- 2022 Lactate [Moles/Vol] 1.2 mmol/L Normal 0.4-1.9 [facility] Comment on above: Performed By: #### C JOBY #### [facility] [address] [address] [address] Vangie Devine PROF 14(COMP METB)on 022 Albumin [Mass/Vol] 3.9 g/dL Normal 3.4-5.0 [facility] Comment on above: Performed By: #### H STROPN, TSH, CMP #### [facility] [address] [address] [address] Vangie Devine Albumin/Globulin [Mass ratio] 0.9 {ratio} Normal [facility] Comment on above: Performed By: #### H TROY, TSH, CMP #### [facility] [address] [address] [address] Vangie Devine ALP [Catalytic activity/Vol] 138 U/L Critically high 46-116 [facility] Comment on above: Performed By: #### H TROY, TSH, CMP #### [facility] [address] [address] [address] Vangie Devine ALT [Catalytic activity/Vol] 24 U/L Normal 14-59 [facility] Comment on above: Performed By: #### H TROY, TSH, CMP #### [facility] [address] [address] [address] Vangie Devine Anion gap [Moles/Vol] 11.4 mmol/L Normal [facility] Comment on above: Performed By: #### H STROPN, TSH, CMP #### [facility] [address] [address] [address] Vangie Devine AST [Catalytic activity/Vol] 23 U/L Normal 15-37 [facility] Comment on above: Performed By: #### H STROPN, TSH, CMP #### [facility] [address] [address] [address] Vangie Devine Bilirubin [Mass/Vol] 0.5 mg/dL Normal 0.2-1.0 [facility] Comment on above: Performed By: #### H STROPN, TSH, CMP #### [facility] [address] [address] [address] Vangie Devine Calcium [Mass/Vol] 9.5 mg/dL Normal 8.5-10.1 [facility] Comment on above: Performed By: #### H STROPN, TSH, CMP #### [facility] [address] [address] [address] Vangie Devine Chloride [Moles/Vol] 98 mmol/L Normal 98-107 [facility] Comment on above: Performed By: #### H STROPN, TSH, CMP #### [facility] [address] [address] [address] Vangie Devine CO2 [Moles/Vol] 25.3 mmol/L Normal 21.0-32.0 [facility] Comment on above: Performed By: #### H STROPN, TSH, CMP #### [facility] [address] [address] [address] Vangie Devine Creatinine [Mass/Vol] 0.90 mg/dL Normal 0.55-1.02 [facility] Comment on above: Performed By: #### H STROPN, TSH, CMP #### [facility] [address] [place] [address] Dr. Vangie Devine EGFR-AF [place] >60 Normal >=60 [facility] Comment on above: Performed By: #### H STROPN, TSH, CMP #### [facility] [address] [place] [address] Dr. Vangie Devine EGFR-NON AF [place] >60 Normal >=60 [facility] Comment on above: Performed By: #### H STROPN, TSH, CMP #### [facility] [address] [address] [address] Vangie Devine Globulin (S) [Mass/Vol] 4.2 g/dL Normal [facility] Comment on above: Performed By: #### H STROPN, TSH, CMP #### [facility] [address] [place] [address] Dr. Vangie Devine Glucose [Mass/Vol] 93 mg/dL Normal 74-106 [facility] Comment on above: Performed By: #### H STROPN, TSH, CMP #### [facility] [address] [address] [address] Vangie Devine Potassium [Moles/Vol] 3.7 mmol/L Normal 3.5-5.1 [facility] Comment on above: Performed By: #### H STROPN, TSH, CMP #### [facility] [address] [address] [address] Vangie Devine Protein [Mass/Vol] 8.1 g/dL Normal 6.4-8.2 [facility] Comment on above: Performed By: #### H STROPN, TSH, CMP #### [facility] [address] [place] [address] Dr. Vangie Devine Sodium [Moles/Vol] 131 mmol/L Critically low 136-145 [facility] Comment on above: Performed By: #### H STROPN, TSH, CMP #### [facility] [address] [place] [address] Dr. Vangie Devine Urea nitrogen [Mass/Vol] 14.0 mg/dL Normal 7.0-18.0 [facility] Comment on above: Performed By: #### H STRONANCY, TSH, CMP #### [facility] [address] [place] [address] Dr. Vangie Devine Urea nitrogen/Creatinine [Mass ratio] 15.6 mg/mg Normal [facility] Comment on above: Performed By: #### H STROPN, TSH, CMP #### [facility] [address] [place] [address] Dr. Vangie Devine PROTIMEon 06-03-2022 INR Coag (PPP) [Relative time] 1.06 {INR} Normal [facility] Comment on above: Performed By: #### C BCMAN #### [facility] [address] [place] [address] Dr. Vangie Devine INR GUIDELINES SEE BELOW Normal [facility] Comment on above: Result Comment: MARY ANN RED INR: 2.0 - 3.0 CONDITIONS NOT LISTED BELOW 2.5 - 3.5 FOR PROSTHETIC HEART VALVE REPLACEMENT 2.5 - 3.5 RECURRENT THROMBOSIS Performed By: #### C BCMAN #### [facility] [address] [place] [address] Dr. Vangie Devine PT Coag (PPP) [Time] 11.4 s Normal 9.0-11.6 [facility] Comment on above: Performed By: #### C BCMAN #### [facility] [address] [place] [address] Dr. Vangie Devine PTTon 06-03-2022 aPTT Coag (Bld) [Time] 31.3 s Normal 22.3-36.2 [facility] Comment on above: Performed By: #### C JANNETTEMAN #### [facility] [address] [place] [address] Dr. Vangie Devine TROPONIN, HIGH SENSITIVITYon 06-03-2022 HSTROP 26.3 pg/mL Normal 4.0-51.3 [facility] Comment on above: Result Comment: CUT- OFF POINTS HAVE BEEN ESTABLISHED BASED ON THE FOURTH UNIVERSAL DEFINITIONS OF MYOCARDIAL INFARCTION. THE UPPER REFERENCE LIMIT (URL) OF TROPONIN, DEFINED THE 99TH PERCENTILE OF cTnI DISTRIBUTION IN A REFERENCE POPULATION, HAS BEEN CONFIRMED THE DECISION THRESHOLD FOR WA DIAGNOSIS. Performed By: #### P TT, PT #### [facility] [address] [place] [address] Dr. Vangie Devine TSHon 06-03-2022 TSH 0.150 uIU/mL Critically low 0.358-3.740 [facility] Comment on above: Performed By: #### P TT, PT #### [facility] [address] [place] [address] Dr. Vangie Devine URINE MICROSCOPIC ONLYon BACTERIA TRACE Abnormal NONE SEEN [facility] Comment on above: Performed By: #### C BC #### [facility] [address] [place] [address] Dr. Vnagie Devine Bacteria identified Cx Nom (U) INDICATED Normal [facility] Comment on above: Result Comment: dory cated due to positive nitrite Performed By: #### C BC #### [facility] [address] [place] [address] Dr. Vangie Devine CAST NONE SEEN Normal NONE SEEN [facility] Comment on above: Performed By: #### C BC #### [facility] [address] [place] [address] Dr. Vangie Devine Crystals LM Nom (Urine sed) NONE SEEN Normal NONE SEEN [facility] Comment on above: Performed By: #### C BC #### [facility] [address] [place] [address] Dr. Vangie Devine Epithelial cells LM Ql (Urine sed) RARE Normal NONE SEEN /RARE [facility] Comment on above: Performed By: #### C BC #### [facility] [address] [place] [address] Dr. Vangie Devine MUCOUS NONE SEEN Normal NONE SEEN [facility] Comment on above: Performed By: #### C BC #### [facility] [address] [place] [address] Dr. Vangie Devine RBC 0-2 Normal 0-2 [facility] Comment on above: Performed By: #### C BC #### [facility] [address] [place] [address] Dr. Vangie Devine WBC 0-2 Abnormal NONE SEEN [facility] Comment on above: Performed By: #### C BC #### [facility] [address] [place] [address] Dr. Vangie Devine XR CHEST 1 Von [...] MARY ROJAS Date: 2022-06-03 19:25 Normal [facility] XR CHEST 2 Von 05-18-2022 XR [...] ANGEL SHAFFER Date: 2022-05-18 10:55 Normal [facility] Covid-19 PCR (CVDTB)on SARS-CoV-2 (COVID-19) RNA SAMIR+probe Ql (Unsp spec) Not detected Normal NOT DETECTED [facility] Comment on above: Result Comment: This test is not yet approved or cleared by the [place] FDA. When there are no FDA-approved or cleared tests available, and other criteria are met, FDA can make tests available under an emergency access mechanism called an Emergency Use Authorization (EUA). The EUA for this test is supported by the [place] of Health and Human Service's (HHS's) declaration [...] Performed By: #### P TT, PT #### [facility] [address] [place] [address] Dr. Vangie Devine CBC AUTO DIFFon 05-12-2022 BASO # 0.1 103/ul Normal 0.0-0.1 [facility] Comment on above: Performed By: #### C BC #### [facility] [address] [place] [address] Dr. Vangie Devine Basophils/100 WBC (Bld) 0.7 % Normal 0.2-2.0 [facility] Comment on above: Performed By: #### C BC #### [facility] [address] [place] [address] Dr. Vangie Devine EO # 0.2 103/ul Normal 0.0-0.7 [facility] Comment on above: Performed By: #### C BC #### [facility] [address] [place] [address] Dr. Vangie Devine Eosinophils/100 WBC (Bld) 2.1 % Normal 0.9-7.0 [facility] Comment on above: Performed By: #### C BC #### [facility] [address] [place] [address] Dr. Vangie Devine Erythrocyte distribution width (RBC) [Ratio] 13.1 % Normal 11.0-15.0 [facility] Comment on above: Performed By: #### C BC #### [facility] [address] [place] [address] Dr. Vangie Devine Hematocrit (Bld) [Volume fraction] 43.2 % Normal 36.0-48.0 [facility] Comment on above: Performed By: #### C BC #### [facility] [address] [place] [address] Dr. Vangie Devine Hemoglobin (Bld) [Mass/Vol] 14.2 g/dL Normal 12.0-16.0 [facility] Comment on above: Performed By: #### C BC #### [facility] [address] [place] [address] Dr. Vangie Devine IG # 0.02 10e3/ul Normal 0.00-0.03 [facility] Comment on above: Performed By: #### C BC #### [facility] [address] [place] [address] Dr. Vangie Devine IG % 0.2 % Normal 0.0-0.5 [facility] Comment on above: Performed By: #### C BC #### [facility] [address] [place] [address] Dr. Vangie Devine LYMPH # 1.9 103/ul Normal 1.2-3.8 [facility] Comment on above: Performed By: #### C BC #### [facility] [address] [place] [address] Dr. Vangie Devine Lymphocytes/100 WBC (Bld) 22.2 % Normal 20.5-60.0 [facility] Comment on above: Performed By: #### C BC #### [facility] [address] [place] [address] Dr. Vangie Devine MANUAL DIFF REQ NO Normal [facility] Comment on above: Performed By: #### C BC #### [facility] [address] [place] [address] Dr. Vangie Devine MCH (RBC) [Entitic mass] 30.5 pg Normal 26.7-34.0 [facility] Comment on above: Performed By: #### C BC #### [facility] [address] [place] [address] Dr. Vangie Devine MCHC (RBC) [Mass/Vol] 32.9 g/dL Normal 29.9-35.2 [facility] Comment on above: Performed By: #### C BC #### [facility] [address] [place] [address] Dr. Vangie Devine MCV (RBC) [Entitic vol] 92.7 fL Normal 81.0-99.0 [facility] Comment on above: Performed By: #### C BC #### [facility] [address] [place] [address] Dr. Vangie Devine MONO # 0.5 103/ul Normal 0.3-0.8 [facility] Comment on above: Performed By: #### C BC #### [facility] [address] [place] [address] Dr. Vangie Devine Monocytes/100 WBC (Bld) 6.0 % Normal 1.7-12.0 [facility] Comment on above: Performed By: #### C BC #### [facility] [address] [place] [address] Dr. Vangie Devine NEUT # 6.0 103/ul Normal 1.4-6.5 [facility] Comment on above: Performed By: #### C BC #### [facility] [address] [place] [address] Dr. Vangie Devine Neutrophils/100 WBC (Bld) 68.8 % Normal 43.0-75.0 [facility] Comment on above: Performed By: #### C BC #### [facility] [address] [place] [address] Dr. Vangie Devine Platelet mean volume (Bld) [Entitic vol] 11.7 fL Normal 9.5-13.5 [facility] Comment on above: Performed By: #### C BC #### [facility] [address] [place] [address] Dr. Vangie Devine PLT 176 103/ul Normal 150-450 [facility] Comment on above: Performed By: #### C BC #### [facility] [address] [place] [address] Dr. Vangie Devine RBC 4.66 106/ul Normal 4.20-5.40 [facility] Comment on above: Performed By: #### C BC #### [facility] [address] [place] [address] Dr. Vangie Devine WBC 8.7 103/ul Normal 4.0-11.0 [facility] Comment on above: Performed By: #### C BC #### [facility] [address] [place] [address] Dr. Vangie Devine PROF CHEM 8 (BAS METB)on Anion gap [Moles/Vol] 13.9 mmol/L Normal [facility] Comment on above: Performed By: #### C BC #### [facility] [address] [place] [address] Dr. Vangie Devine Calcium [Mass/Vol] 9.2 mg/dL Normal 8.5-10.1 [facility] Comment on above: Performed By: #### C BC #### [facility] [address] [address] [address] Vangie Devine Chloride [Moles/Vol] 101 mmol/L Normal 98-107 [facility] Comment on above: Performed By: #### C BC #### [facility] [address] [address] [address] Vangie Devine CO2 [Moles/Vol] 24.2 mmol/L Normal 21.0-32.0 [facility] Comment on above: Performed By: #### C BC #### [facility] [address] [address] [address] Vangie Devine Creatinine [Mass/Vol] 0.87 mg/dL Normal 0.55-1.02 [facility] Comment on above: Performed By: #### C BC #### [facility] [address] [place] [address] Dr. Vangie Devine EGFR-AF [place] >60 Normal >=60 [facility] Comment on above: Performed By: #### C BC #### [facility] [address] [place] [address] Dr. Vangie Devine EGFR-NON AF [place] >60 Normal >=60 [facility] Comment on above: Performed By: #### C BC #### [facility] [address] [place] [address] Dr. Vangie Devine Glucose [Mass/Vol] 89 mg/dL Normal 74-106 [facility] Comment on above: Performed By: #### C BC #### [facility] [address] [place] [address] Dr. Vangie Devine Potassium [Moles/Vol] 4.1 mmol/L Normal 3.5-5.1 [facility] Comment on above: Performed By: #### C BC #### [facility] [address] [place] [address] Dr. Vangie Devine Sodium [Moles/Vol] 135 mmol/L Critically low 136-145 [facility] Comment on above: Performed By: #### C BC #### [facility] [address] [place] [address] Dr. Vangie Devine Urea nitrogen [Mass/Vol] 9.0 mg/dL Normal 7.0-18.0 [facility] Comment on above: Performed By: #### C BC #### [facility] [address] [place] [address] Dr. Vangie Devine Urea nitrogen/Creatinine [Mass ratio] 10.3 mg/mg Normal [facility] Comment on above: Performed By: #### C BC #### [facility] [address] [place] [address] Dr. Vangie Devine PROTIMEon 05-12-2022 INR Coag (PPP) [Relative time] 1.96 {INR} Normal [facility] Comment on above: Performed By: #### P T #### [facility] [address] [place] [address] Dr. Vangie Devine INR GUIDELINES SEE BELOW Normal [facility] Comment on above: Result Comment: MARY ANN RED INR: 2.0 - 3.0 CONDITIONS NOT LISTED BELOW 2.5 - 3.5 FOR PROSTHETIC HEART VALVE REPLACEMENT 2.5 - 3.5 RECURRENT THROMBOSIS Performed By: #### P T #### [facility] [address] [place] [address] Dr. Vangie Devine PT Coag (PPP) [Time] 20.3 s Critically high 9.0-11.6 [facility] Comment on above: Performed By: #### P T #### [facility] [address] [place] [address] Dr. Vangie Devine T4, T3U, FTI LABCORPon 05-07 Free Thyroxine Index 4.7 Normal 1.2-4.9 [facility] Comment on above: Performed By: #### T HYLC #### [facility] [address] [place] [address] Dr. Vangie Devine T3 Uptake 34 % Normal 24-39 [facility] Comment on above: Performed By: #### T HYLC #### [facility] [address] [place] [address] Dr. Vangie Devine T4 [Mass/Vol] 13.8 ug/dL Critically high 4.5-12.0 [facility] Comment on above: Performed By: #### T HYLC #### [facility] [address] [place], [place] [address] Dr. Vangie Devine TSHon 05-06-2022 TSH 0.063 uIU/mL Critically low 0.358-3.740 [facility] Comment on above: Performed By: #### T SH #### [facility] [address] [place], [place] [address] Dr. Vangie Devine ECHOCARDIO M/2D COMPLETEon 0 03-31-2022 ECHOCARDIO M/2D COMPLETE Patient: JAVIER LINK Exam Date: 03/31/2022 : 1970 Gender:F Ordering : DR DEENA BENTON M.D. Admission #: [id number] Family : Order #: [id number] CLICK HERE TO VIEW EXAM ECHOCARDIOGRAM REPORT [...] M.D. on 03/31/2022 at 18:35 Normal [facility] CBC AUTO DIFFon 03-28-2022 BASO # 0.1 103/ul Normal 0.0-0.1 [facility] Comment on above: Performed By: #### C BC #### [facility] [address] [place] [address] Dr. Vangie Devine Basophils/100 WBC (Bld) 0.6 % Normal 0.2-2.0 [facility] Comment on above: Performed By: #### C BC #### [facility] [address] [place] [address] Dr. Vangie Devine EO # 0.2 103/ul Normal 0.0-0.7 [facility] Comment on above: Performed By: #### C BC #### [facility] [address] [place] [address] Dr. Vangie Devine Eosinophils/100 WBC (Bld) 2.0 % Normal 0.9-7.0 [facility] Comment on above: Performed By: #### C BC #### [facility] [address] [place] [address] Dr. Vangie Devine Erythrocyte distribution width (RBC) [Ratio] 12.7 % Normal 11.0-15.0 [facility] Comment on above: Performed By: #### C BC #### [facility] [address] [place] [address] Dr. Vangie Devine Hematocrit (Bld) [Volume fraction] 42.6 % Normal 36.0-48.0 [facility] Comment on above: Performed By: #### C BC #### [facility] [address] [place] [address] Dr. Vangie Devine Hemoglobin (Bld) [Mass/Vol] 13.9 g/dL Normal 12.0-16.0 [facility] Comment on above: Performed By: #### C BC #### [facility] [address] [place] [address] Dr. Vangie Devine IG # 0.03 10e3/ul Normal 0.00-0.03 [facility] Comment on above: Performed By: #### C BC #### [facility] [address] [place] [address] Dr. Vangie Devine IG % 0.4 % Normal 0.0-0.5 [facility] Comment on above: Performed By: #### C BC #### [facility] [address] [place] [address] Dr. Vangie Devine LYMPH # 2.3 103/ul Normal 1.2-3.8 [facility] Comment on above: Performed By: #### C BC #### [facility] [address] [place] [address] Dr. Vangie Devine Lymphocytes/100 WBC (Bld) 28.7 % Normal 20.5-60.0 [facility] Comment on above: Performed By: #### C BC #### [facility] [address] [place] [address] Dr. Vangie Devine MANUAL DIFF REQ NO Normal [facility] Comment on above: Performed By: #### C BC #### [facility] [address] [place] [address] Dr. Vangie Devine MCH (RBC) [Entitic mass] 31.0 pg Normal 26.7-34.0 [facility] Comment on above: Performed By: #### C BC #### [facility] [address] [place] [address] Dr. Vangie Devine MCHC (RBC) [Mass/Vol] 32.6 g/dL Normal 29.9-35.2 [facility] Comment on above: Performed By: #### C BC #### [facility] [address] [place] [address] Dr. Vangie Devine MCV (RBC) [Entitic vol] 95.1 fL Normal 81.0-99.0 [facility] Comment on above: Performed By: #### C BC #### [facility] [address] [place] [address] Dr. Vangie Devine MONO # 0.5 103/ul Normal 0.3-0.8 [facility] Comment on above: Performed By: #### C BC #### [facility] [address] [place] [address] Dr. Vangie Devine Monocytes/100 WBC (Bld) 6.8 % Normal 1.7-12.0 [facility] Comment on above: Performed By: #### C BC #### [facility] [address] [place] [address] Dr. Vangie Devine NEUT # 4.9 103/ul Normal 1.4-6.5 [facility] Comment on above: Performed By: #### C BC #### [facility] [address] [place] [address] Dr. Vangie Devine Neutrophils/100 WBC (Bld) 61.5 % Normal 43.0-75.0 [facility] Comment on above: Performed By: #### C BC #### [facility] [address] [place] [address] Dr. Vangie Devine Platelet mean volume (Bld) [Entitic vol] 11.0 fL Normal 9.5-13.5 [facility] Comment on above: Performed By: #### C BC #### [facility] [address] [place] [address] Dr. Vangie Devine PLT 224 103/ul Normal 150-450 [facility] Comment on above: Performed By: #### C BC #### [facility] [address] [place] [address] Dr. Vangie Devine RBC 4.48 106/ul Normal 4.20-5.40 [facility] Comment on above: Performed By: #### C BC #### [facility] [address] [place] [address] Dr. Vangie Devine WBC 7.9 103/ul Normal 4.0-11.0 [facility] Comment on above: Performed By: #### C BC #### [facility] [address] [place], [place] [address] Dr. Vangie Devine LIPID PROFILEon 03-28-2022 CHOL-HDL RATIO NORM SEE BELOW Normal [facility] Comment on above: Result Comment: 3.3 - 4.4 LOW RISK 4.4 - 7.1 AVERAGE RISK 7.1 - 11.0 MODERATE RISK >11.0 HIGH RISK Performed By: #### C BC #### [facility] [address] [address] [address] Vangie Devine Cholesterol [Mass/Vol] 103 mg/dL Normal <=200 [facility] Comment on above: Performed By: #### C BC #### [facility] [address] [place] [address] Dr. Vangie Devine Cholesterol in HDL [Mass/Vol] 39 mg/dL Critically low 40-60 [facility] Comment on above: Performed By: #### C BC #### [facility] [address] [place] [address] Dr. Vangie Devine Cholesterol in LDL [Mass/Vol] 46.8 mg/dL Normal [facility] Comment on above: Performed By: #### C BC #### [facility] [address] [place] [address] Dr. Vangie Devine Cholesterol.total/Chol esterol in HDL [Mass ratio] 2.6 {ratio} Normal [facility] Comment on above: Performed By: #### C BC #### [facility] [address] [place], [place] [id number] Dr. Vangie Devine HDL NORMAL > or = 60 mg/dl - LO W CARDIOVASCULAR RISK <40 mg/dl - HIGH CARDIOVASCULAR RISK Normal [facility] Comment on above: Performed By: #### C BC #### [facility] [id number] Vangie Devine LDL CALC NORMAL SEE BELOW Normal [facility] Comment on above: Result Comment: <100 mg/dl OPTIMAL 100 - 129 mg/dl NEAR OR ABOVE OPTIMAL 130 - 159 mg/dl BORDERLINE HIGH 160 - 189 mg/dl HIGH >190 mg/dl VERY HIGH Performed By: #### C BC #### [facility] [address] [place] [address] Dr. Vangie Devine Triglyceride [Mass/Vol] 86 mg/dL Normal <=150 [facility] Comment on above: Performed By: #### C BC #### [facility] [address] [place] [address] Dr. Vangie Devine VLDL CALC 17.2 mg/dL Normal [facility] Comment on above: Performed By: #### C BC #### [facility] [address] [place] [address] Dr. Vangie Devine PROF 14(COMP METB)on 022 Albumin [Mass/Vol] 3.5 g/dL Normal 3.4-5.0 [facility] Comment on above: Performed By: #### C BC #### [facility] [address] [place] [address] Dr. Vangie Devine Albumin/Globulin [Mass ratio] 0.9 {ratio} Normal [facility] Comment on above: Performed By: #### C BC #### [facility] [address] [place] [address] Dr. Vangie Devine ALP [Catalytic activity/Vol] 127 U/L Critically high 46-116 [facility] Comment on above: Performed By: #### C BC #### [facility] [address] [place] [address] Dr. Vangie Devine ALT [Catalytic activity/Vol] 29 U/L Normal 14-59 [facility] Comment on above: Performed By: #### C BC #### [facility] [address] [place] [address] Dr. Vangie Devine Anion gap [Moles/Vol] 15.3 mmol/L Normal [facility] Comment on above: Performed By: #### C BC #### [facility] [address] [place] [address] Dr. Vangie Devine AST [Catalytic activity/Vol] 21 U/L Normal 15-37 [facility] Comment on above: Performed By: #### C BC #### [facility] [address] [place] [address] Dr. Vangie Devine Bilirubin [Mass/Vol] 0.5 mg/dL Normal 0.2-1.0 [facility] Comment on above: Performed By: #### C BC #### [facility] [address] [place] [address] Dr. Vangie Devine Calcium [Mass/Vol] 8.9 mg/dL Normal 8.5-10.1 [facility] Comment on above: Performed By: #### C BC #### [facility] [address] [address] [address] Vangie Devine Chloride [Moles/Vol] 101 mmol/L Normal 98-107 [facility] Comment on above: Performed By: #### C BC #### [facility] [address] [place] [address] Dr. Vangie Devine CO2 [Moles/Vol] 25.8 mmol/L Normal 21.0-32.0 [facility] Comment on above: Performed By: #### C BC #### [facility] [address] [place] [address] Dr. Vangie Devine Creatinine [Mass/Vol] 0.89 mg/dL Normal 0.55-1.02 [facility] Comment on above: Performed By: #### C BC #### [facility] [address] [place] [address] Dr. Vangie Devine EGFR-AF [place] >60 Normal >=60 [facility] Comment on above: Performed By: #### C BC #### [facility] [address] [place] [address] Dr. Vangie Devine EGFR-NON AF SOUTH KOREAN >60 Normal >=60 [facility] Comment on above: Performed By: #### C BC #### [facility] [address] [place] [address] Dr. Vangie Devine Globulin (S) [Mass/Vol] 4.1 g/dL Normal [facility] Comment on above: Performed By: #### C BC #### [facility] [address] [place] [address] Dr. Vangie Devine Glucose [Mass/Vol] 94 mg/dL Normal 74-106 [facility] Comment on above: Performed By: #### C BC #### [facility] [address] [address] [address] Vangie Devine Potassium [Moles/Vol] 5.1 mmol/L Normal 3.5-5.1 [facility] Comment on above: Performed By: #### C BC #### [facility] [address] [place], [place] [address] Dr. Vangie Devine Protein [Mass/Vol] 7.6 g/dL Normal 6.4-8.2 [facility] Comment on above: Performed By: #### C BC #### [facility] [address] [address] [address] Vangie Devine Sodium [Moles/Vol] 137 mmol/L Normal 136-145 [facility] Comment on above: Performed By: #### C BC #### [facility] [address] [address] [address] Vangie Devine Urea nitrogen [Mass/Vol] 9.0 mg/dL Normal 7.0-18.0 [facility] Comment on above: Performed By: #### C BC #### [facility] [address] [address] [address] Vangie Devine Urea nitrogen/Creatinine [Mass ratio] 10.1 mg/mg Normal [facility] Comment on above: Performed By: #### C BC #### [facility] [address] [address] [address] Vangie Devine Cardiac Stress Teston 2021 Cardiac Stress Test [address], [address] [place] [address] Exercise Stress Test Patient Name: JAVIER Ordering Physician: [id number] Nolan Garibay DO [facility] Study Date: 01/26/2022 Reading Physician: [id number] Myke Levin MD MRN/PID: [id number] Supervising [id number] Myke Levin Physician: Accession/Order#: [id number] Referring Physician: [id number] NOLAN GARIBAY Date of : 1970 PCP: Gender: F Fellow: Height: 147.32 cm Nurse: Joe Elmore RN Weight: 84.37 kg Lime Trimmer: ADE BSA: 1.77 m2 Technologist: BMI: 38.87 kg/m2 Additional Staff: Age: 52 years cc report to: Patient Location: cc report to: [id number] Nolan Garibay DO Study Type: Cardiac Stress Test Diagnosis/ICD: I21.09-ST elevation (STEMI) myocardial infarction involving other coronary artery of anterior wall; I51.3-Intracardiac thrombosis, not elsewhere classified Indication: WA Procedure/CPT: Stress Test Interpretation-12062; Stress Test Supervision-[id number] Falls Risk: Low: Patient has low risk [...] rhythm. Normal sinus rhythm with anteroseptal wall WA. Stress Stage Data: + +-- -+------+-------+ HR [...] The adequate level of stress was achieved. [id number] Myke Levin MD Electronically signed on 01/26/2022 at 5:41:45 PM Final Normal [facility] Cardiac Stress Test [facility] DO Work Phone: Tobacco Screening.on 022 Adult depression screening assessment Yes -[facility] 250 DO Work Phone: Adult depression screening assessment No -[facility] 250 DO Work Phone: Fall risk assessment c) Not medically indicated -[facility] 250 DO Work Phone: Tobacco use status CPHS b) No [facility] 250 DO Work Phone: Tobacco Screening. 0-Not at all [facility] 250 DO Work Phone: Tobacco Screening. 1-Several days [facility] DO Work Phone: Tobacco Screening. 2-More than half the days [facility] Work Phone: Tobacco Screening. Not difficult at all [facility] Work Phone: Laboratory - Coagulationon 0 01-17-2022 INR Coag (Bld) [Relative time] 1.56 {INR} [facility] DO Work Phone: PROTIMEon 01-17-2022 INR Coag (PPP) [Relative time] 1.56 {INR} Normal [facility] Comment on above: Performed By: #### C JOBY #### [facility] [address] [place] [address] Dr. Vangie Devine INR GUIDELINES SEE BELOW Normal [facility] Comment on above: Result Comment: MARY ANN RED INR: 2.0 - 3.0 CONDITIONS NOT LISTED BELOW 2.5 - 3.5 FOR PROSTHETIC HEART VALVE REPLACEMENT 2.5 - 3.5 RECURRENT THROMBOSIS Performed By: #### C JOBY #### [facility] [address] [place] [address] Dr. Vangie Devine PT Coag (PPP) [Time] 16.4 s Critically high 9.0-11.6 [facility] Comment on above: Performed By: #### C JOBY #### [facility] [address] [place] [address] Dr. Vangie Devine Activated partial thrombopla stin time (aPTT) in platelet poor plasma by coagulation aOrdered By: Isidra Garibay on 01-14-2022 aPTT Coag (PPP) [Time] 34.5 s 25.1-36.5 Fi [facility] Creatinine and Glomerular fi ltration rate.predicted panel (S/P/Bld)Ordered By: Isidra Garibay on 01-14-2022 Creatinine [Mass/Vol] 0.69 mg/dL 0.44-1.03 [facility] Estimated glomerular filtrat ion rate (GFR) non- AmericanOrdered By: Isidra Garibay on 01-14-2022 GFR/1.73 sq M.predicted among non-blacks MDRD (S/P/Bld) [Vol rate/Area] > 60 mL/Min [facility] - CoagulationOrde red By: Isidra Garibay on 01-14-2022 PT Coag (PPP) [Time] 17.7 s 9.0-12.9 [facility] No Panel InformationOrdered By: Isidra Garibay on 01-14-2022 Estimated GFR () > 60 mL/Min [facility] Comment on above: GFR estimated refere nce range: According to KDOQI guidelines, <60 ml/min/1.73m2 is sufficient to diagnose a patient with chronic kidney disease. Pharmacy Creatinine Clearance (Chem 94.39 [facility] Platelet poor plasma interna tional normalized ratio (INR) by coagulation assay (relatOrdered By: Isidra Garibay on 01-14-2022 INR Coag (PPP) [Relative time] 1.6 {INR} [facility] Comment on above: INR Therapeutic [...] on 01-14-2022 Calcium [Mass/Vol] 8.5 mg/dL 8.2-10.2 [facility] Serum or plasma chloride francesca surement (moles/volume)Ordered By: Isidra Garibay on 01-14-2022 Chloride [Moles/Vol] 99 mmol/L 95-114 [facility] Serum or plasma glucose ivana urement (mass/volume)Ordered By: Isidra Garibay on 01-14-2022 Glucose [Mass/Vol] 101 mg/dL 70-100 [facility] Comment on above: ADA recommended refe rence range Random Glucose Reference Range is dependent on time and content of last meal. Glucose of more than 200 mg/dL in a nonstressed, ambulatory subject supports the diagnosis of Diabetes Mellitus. Serum or plasma potassium me asurement (moles/volume)Ordered By: Isidra Garibay on 01-14-2022 Potassium [Moles/Vol] 4.2 mmol/L 3.5-5.1 [facility] Serum or plasma sodium measu rement (moles/volume)Ordered By: Isidra Garibay on 01-14-2022 Sodium [Moles/Vol] 129 mmol/L 136-146 [facility] Serum or plasma total carbon dioxide measurement (moles/volume)Ordered By: Isidra Garibay on 01-14-2022 CO2 [Moles/Vol] 21.8 mmol/L 22.0-30.0 [facility] Serum or plasma urea nitroge n measurement (mass/volume)Ordered By: Isidra Garibay on 01-14-2022 Urea nitrogen [Mass/Vol] 8 mg/dL 9-23 [facility] Albumin [Mass/volume] in Ser um or PlasmaOrdered By: Isidra Garibay on 01-11-2022 Albumin [Mass/Vol] 2.9 g/dL 3.2-5.5 [facility] Cholesterol [Mass/volume] in Serum or PlasmaOrdered By: Isidra Garibay on 01-11-2022 Cholesterol [Mass/Vol] 109 mg/dL 140-200 [facility] Comment on above: Chol less than 200 m g/dl low risk Chol 201-239 mg/dl borderline risk Chol 240 mg/dl and greater high risk Cholesterol in LDL Calc [Mas s/Vol]Ordered By: Isidra Garibay on 01-11-2022 Cholesterol in LDL [Mass/Vol] 49 mg/dL 0-100 [facility] Comment on above: LDL ATP III CLASSIFI CATION LDL less than 100 mg/dL Optimal LDL 100-129 mg/dL Near or above optimal LDL 130-159 mg/dL Borderline high LDL 160-189 mg/dL High LDL greater than 189 mg/dL Very high Cholesterol in VLDL Calc [Ma ss/Vol]Ordered By: Isidra Garibay on 01-11-2022 Cholesterol in VLDL [Mass/Vol] 16 mg/dL [facility] Globulin Calc (S) [Mass/Vol] Ordered By: Isidra Garibay on 01-11-2022 Globulin (S) [Mass/Vol] 3.1 g/dL [facility] Glucose Glucometer (BldC) [M ass/Vol]Ordered By: Isidra Garibay on 01-11-2022 Glucose [Mass/Vol] 118 mg/dL [facility] Comment on above: Random Glucose Refer ence Range is dependent on time and content of last meal. Glucose of more than 200 mg/dL in a nonstressed, ambulatory subject supports the diagnosis of Diabetes Mellitus. No Panel InformationOrdered By: Isidra Garibay on 01-11-2022 Bedside Glucose Comment Glu2: cleaned meter [facility] Protein [Mass/volume] in Ser um or PlasmaOrdered By: Isidra Garibay on 01-11-2022 Protein [Mass/Vol] 6.0 g/dL 6.1-7.9 [facility] Serum or plasma alanine gore otransferase measurement without P-5'-P (enzymatic activiOrdered By: Isidra Garibay on 01-11-2022 ALT No additional P-5'-P [Catalytic activity/Vol] 58 U/L 10-60 [facility] Serum or plasma albumin/glob ulin mass ratioOrdered By: Isidra Garibay on 01-11-2022 Albumin/Globulin [Mass ratio] 0.9 {ratio} [facility] Serum or plasma alkaline carl sphatase measurement (enzymatic activity/volume)Ordered By: Isidra Garibay on 01-11-2022 ALP [Catalytic activity/Vol] 85 U/L 32-92 [facility] Serum or plasma aspartate am inotransferase measurement (enzymatic activity/volume)Ordered By: Isidra Garibay on 01-11-2022 AST [Catalytic activity/Vol] 212 U/L 10-42 [facility] Serum or plasma high density lipoprotein (HDL) cholesterol measurementOrdered By: Isidra Garibay on 01-11-2022 Cholesterol in HDL [Mass/Vol] 43 mg/dL 35-85 [facility] Comment on above: HDL CHOL ATP-III CLA SSIFICATION Cardiovascular Risk HDL > or equal to 60 mg/dL LOW HDL < 40 mg/dL HIGH Serum or plasma total biliru bin measurement (mass/volume)Ordered By: Isidra Garibay on 01-11-2022 Bilirubin [Mass/Vol] 0.6 mg/dL 0.3-1.2 [facility] Serum or plasma total choles terol/high density lipoprotein (HDL) cholesterol mass ratOrdered By: Isidra Garibay on 01-11-2022 Cholesterol.total/Chol esterol in HDL [Mass ratio] 2.5 {ratio} [facility] Triglyceride [Mass/volume] i n Serum or PlasmaOrdered By: Isidra Garibay on 01-11-2022 Triglyceride [Mass/Vol] 83 mg/dL 35-149 [facility] Comment on above: TRIG ATP [...] 01-11-2022 Troponin I.cardiac High sensitivity method [Mass/Vol] 24855 pg/mL 0-15 [facility] Comment on above: Results called at 0805 on 01/11/22 AMYLASEon 01-10-2022 Amylase [Catalytic activity/Vol] 37 U/L Normal 25-115 [facility] Comment on above: Performed By: #### C BC #### [facility] [address] [address] [address] Vangie Devine CARDIAC CHASTITY ADMITon 022 CK [Catalytic activity/Vol] 206 U/L Critically high 26-192 [facility] Comment on above: Performed By: #### C BC #### [facility] [address], [place] [address] Dr. Vagnie Devine CK.MB [Mass/Vol] 3.65 ng/mL Critically high <=3.60 [facility] Comment on above: Performed By: #### C BC #### [facility] [address] [place] [address] Dr. Vangie Devine HSTROP 80.4 pg/mL Critically high 4.0-51.3 [facility] Comment on above: Result Comment: CUT- OFF POINTS HAVE BEEN ESTABLISHED BASED ON THE FOURTH UNIVERSAL DEFINITIONS OF MYOCARDIAL INFARCTION. THE UPPER REFERENCE LIMIT (URL) OF TROPONIN, DEFINED THE 99TH PERCENTILE OF cTnI DISTRIBUTION IN A REFERENCE POPULATION, HAS BEEN CONFIRMED THE DECISION THRESHOLD FOR WA DIAGNOSIS. Performed By: #### C BC #### [facility] [address] [place] [address] Dr. Vangie Devine AJ 119 ng/mL Critically high 9-82 [facility] Comment on above: Performed By: #### C BC #### [facility] [address] [place] [address] Dr. Vangie Devine CBC W MANUAL DIFFon 01-11-20 22 ATYPICAL LYMPH # 0.93 103/ul Normal [facility] Comment on above: Performed By: #### C BCMAN #### [facility] [address] [place] [address] Dr. Vangie Devine ATYPICAL LYMPH % 3 % Normal [facility] Comment on above: Performed By: #### C BCMAN #### [facility] [address] [place] [address] Dr. Vangie Devine BAND # 1.6 103/ul Critically high 0.0-0.3 [facility] Comment on above: Performed By: #### C BCMAN #### [facility] [address] [place] [address] Dr. Vangie Devine BAND % 5 % Normal 0-5 [facility] Comment on above: Performed By: #### C BCMAN #### [facility] [address] [place] [address] Dr. Vangie Devine BASOM # 0.00 103/ul Normal 0.00-0.10 [facility] Comment on above: Performed By: #### C BCMAN #### [facility] [address] [place] [address] Dr. Vangie Devine BASOM % 0.0 % Critically low 0.2-2.0 [facility] Comment on above: Performed By: #### C JOBY #### [facility] [address] [place] [address] Dr. Vangie Devine BLAST # 0.0 103/ul Normal [facility] Comment on above: Performed By: #### C JOBY #### [facility] [address] [place] [address] Dr. Vangie Devine BLAST % Normal [facility] Comment on above: Performed By: #### C JOBY #### [facility] [address] [place] [address] Dr. Vangie Devine CORRECTED WBC Normal 4.0-11.0 [facility] Comment on above: Performed By: #### C JOBY #### [facility] [address] [place] [address] Dr. Vangie Devine EOS # 0.00 103/ul Normal 0.00-0.70 [facility] Comment on above: Performed By: #### C JOBY #### [facility] [address] [place] [address] Dr. Vangie Devine EOS% 0.0 % Critically low 0.9-7.0 [facility] Comment on above: Performed By: #### C JOBY #### [facility] [address] [place] [address] Dr. Vangie Devine HCT 42.0 % Normal 36.0-48.0 [facility] Comment on above: Performed By: #### C JOBY #### [facility] [address] [place] [address] Dr. Vangie Devine HGB 14.6 g/dl Normal 12.0-16.0 [facility] Comment on above: Performed By: #### C JOBY #### [facility] [address] [place] [address] Dr. Vangie Devine HYPERSEG NEUT 1+ Normal [facility] Comment on above: Performed By: #### C JOBY #### [facility] [address] [place] [address] Dr. Vangie Devine LYMPHM # 4.03 103/ul Critically high 1.20-3.80 [facility] Comment on above: Performed By: #### C JOBY #### [facility] [address] [address] [address] Vangie Devine LYMPHM% 13.0 % Critically low 20.5-60.0 [facility] Comment on above: Performed By: #### C JOBY #### [facility] [address] [address] [address] Vangie Devine MCH 32.7 pg Normal 26.7-34.0 [facility] Comment on above: Performed By: #### C JOBY #### [facility] [address] [address] [address] Vangie Devine MCHC 34.8 g/dl Normal 29.9-35.2 [facility] Comment on above: Performed By: #### C JOBY #### [facility] [address] [address] [address] Vangie Devine MCV 94.2 fL Normal 81.0-99.0 [facility] Comment on above: Performed By: #### C JOBY #### [facility] [address] [address] [address] Vangie Devine METAMYELOCYTE # 1.2 103/ul Normal [facility] Comment on above: Performed By: #### C JOBY #### [facility] [address] [address] [address] Vangie Devine METAMYELOCYTE % 4 % Normal [facility] Comment on above: Performed By: #### C JOBY #### [facility] [address] [address] [address] Vangie Devine MONOM# 0.93 103/ul Critically high 0.30-0.80 [facility] Comment on above: Performed By: #### C JOBY #### [facility] [address] [address] [address] Vangie Devine MONOM% 3.0 % Normal 1.7-12.0 [facility] Comment on above: Performed By: #### C JOBY #### [facility] [address] [address] [address] Vangie Devine MPV 10.4 fL Normal 9.5-13.5 [facility] Comment on above: Performed By: #### C JOBY #### [facility] [address] [address] [address] Vangie Devine MYELOCYTE # 0.9 103/ul Normal [facility] Comment on above: Performed By: #### C JOBY #### [facility] [address] [address] [address] Vangie Devine MYELOCYTE % 3 % Normal [facility] Comment on above: Performed By: #### C JOBY #### [facility] [address] [address] [address] Vangie Devine NRBC 0 Normal [facility] Comment on above: Performed By: #### C JOBY #### [facility] [address] [address] [address] Vangie Devine PLT 460 103/ul Critically high 150-450 [facility] Comment on above: Performed By: #### C JOBY #### [facility] [address] [address] [address] Vangie Devine RBC 4.46 106/ul Normal 4.20-5.40 [facility] Comment on above: Performed By: #### C JOBY #### [facility] [address] [place] [address] Dr. Vangie Devine RDW 12.6 % Normal 11.0-15.0 [facility] Comment on above: Performed By: #### C JOBY #### [facility] [address] [address] [address] Vangie Devine SEG # 21.39 103/ul Critically high 1.40-6.50 [facility] Comment on above: Performed By: #### C JOBY #### [facility] [address] [address] [address] Vangie Devine SEG % 69.0 % Normal 43.0-75.0 [facility] Comment on above: Performed By: #### C JOBY #### [facility] [id number] Vangie Devine WBC 31.0 103/ul Critically high 4.0-11.0 [facility] Comment on above: Performed By: #### Baldemar HEMPHILL #### [facility] [address] [place], [place] [id number] Dr. Vangie Devine Covid-19 PCR ([facility])on 12-14 SARS-CoV-2 (COVID-19) RNA SAMIR+probe Ql (Unsp spec) Not detected Normal NOT DETECTED [facility] Comment on above: Result Comment: When [...] for this test is supported by the Game Advisor of Health and Human Service's declaration that [...] used). Performed By: #### Baldemar HEMPHILL #### [facility] [address] [place], [place] [id number] Dr. Vangie Devine LIPASEon 01-10-2022 Lipase [Catalytic activity/Vol] 63.0 U/L Critically low 73.0-393.0 [facility] Comment on above: Performed By: #### Baldemar HEMPHILL #### [facility] [address] [place] [address] Dr. Vangie Devine Laboratory - Chemistry and C hemistry - challengeOrdered By: Isidra Graibay on 01-10-2022 Magnesium [Mass/Vol] 2.0 mg/dL 1.6-2.6 [facility] PROTIMEon 01-10-2022 INR Coag (PPP) [Relative time] 1.01 {INR} Normal [facility] Comment on above: Performed By: #### P TT, PT #### [facility] [address] [place] [address] Dr. Vangie Devine INR GUIDELINES SEE BELOW Normal [facility] Comment on above: Result Comment: MARY ANN RED INR: 2.0 - 3.0 CONDITIONS NOT LISTED BELOW 2.5 - 3.5 FOR PROSTHETIC HEART VALVE REPLACEMENT 2.5 - 3.5 RECURRENT THROMBOSIS Performed By: #### P TT, PT #### [facility] [address] [place], [place] [id number] Dr. Vangie Devine PT Coag (PPP) [Time] 10.9 s Normal 9.0-11.6 [facility] Comment on above: Performed By: #### P TT, PT #### [facility] [address] [place] [address] Dr. Vangie Devine PTTon 01-10-2022 aPTT Coag (Bld) [Time] 26.3 s Normal 22.3-36.2 [facility] Comment on above: Performed By: #### P TT, PT #### [facility] [address] [place] [address] Dr. Vangie Devine XR CHEST 1 Von 01-10-2022 XR CHEST 1 V CLINICAL HISTORY: Chest pain COMPARISON: Chest radiograph 12/20/2015 at [facility]. FINDINGS: Portable AP view of the chest obtained. Cardiomediastinal silhouette is normal. Lungs are clear, no evidence of infiltrate, suspicious nodule, or mass. No evidence of significant pleural fluid on this portable projection. No acute bony abnormality. IMPRESSION: No acute abnormality. Electronically authenticated by: MADELAINE ALVA Date: 2022-01-10 10:16 Normal [facility] WRIST LEFT 3 VWSon 2 WRIST LEFT 3 S [facility] Department of Radiology [address] [place] [id number] Patient Name: JAVIER LINK : 1970 [...] demineralization. Electronically signed: QUANG RUFFIN. Transcribed by: [email or web address], User Resident: Electronically Signed by: QUANG RUFFIN @ 09/10/2021 09:04 AM Normal [facility] Comment on above: Order Comment: Evalu ate Operative Reporton Operative Report MR#: [id number] S [facility] Pt. Name: Javier Link Room #: 0C Discharge Date: Birthdate: 1970 OPERATIVE REPORT DATE OF SURGERY: 07/22/2021 SURGEON: Rafi Biswas M.D. PREOPERATIVE DIAGNOSIS: Kienbock's disease, stage IV, left lunate. POSTOPERATIVE DIAGNOSIS: Kienbock's disease, stage IV, left lunate. PROCEDURE: Proximal row carpectomy, left wrist. SUPERVISOR SPECIAL SERVICES: Maricarmen Liao M.D. ANESTHESIA: Regional. INDICATION FOR [...] took some 3-0 TiCron and put a tirwmn-yx-blnfq suture in that dorsal portion of the TFCC right near the ulnar styloid where the small tear was. The volar part of the TFCC looks good. Once that was in, the dorsal capsule was closed with multiple wgmlez-[id number] sutures of 2-0 Vicryl. The subcutaneous tissue [...] Biswas M.D. Date Trans: 07/22/2021 10:32 A/mmo [id number] cc: Moriah Mack M.D. [address] [place] [id number] Normal [facility] POC GLUCOSE LABon 07-22-2021 Glucose [Mass/Vol] 85 mg/dL Normal 70-100 [facility] Comment on above: Performed By: #### [id number] #### [address] MRI WRIST WO CONTRAST RIGHTo n 06-09-2021 MRI WRIST WO CONTRAST RIGHT [facility] Department of Radiology [address] [place] [id number] Patient Name: JAVIER LINK : 1970 Sex: F Age: Race: White Pt. 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 Electronically signed: Liz Harp. Transcribed by: [email or web address], User Resident: Electronically Signed by: LIZ HARP @ 06/11/2021 09:46 AM Normal [facility] Comment on above: Order Comment: Evide nce [place]'s R wrist on outside x-ray, evaluate for staging and surgical planning. , Side: RIGHT WRIST LEFT 3 [facility] 1 WRIST LEFT 3 [facility] Department of Radiology [address] [place] [id number] Patient Name: JAVIER LINK : 1970 Sex: F Age: Race: White Pt. 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 COMPARISON: None. IMPRESSION: 1. Subtle sclerosis lunate suggests possibility of osteonecrosis. No significant ulnar variance. 2. No acute fracture. No dislocation. Likely remote injury ulnar styloid. 3. Borderline widening scapholunate interval. 4. Multiple moderate triscaphe and radiocarpal arthritis. Electronically signed: Alonso Iglesias. Transcribed by: [email or web address], User Resident: Electronically Signed by: ALONSO IGLESIAS @ 05/19/2021 12:56 PM Normal [facility] Comment on above: Order Comment: evalu ate WRIST RIGHT 3 Son 05-18-20 21 WRIST RIGHT 3 S [facility] Department of Radiology [address] [place] [id number] Patient Name: JAVIER LINK : 1970 [...] variance. Electronically signed: Alonso Iglesias. Transcribed by: [email or web address], User Resident: Electronically Signed by: ALONSO IGLESIAS @ 05/19/2021 12:55 PM Normal [facility] Comment on above: Order Comment: evalu ate Vital Signs Date Time Vital Sign Value Performing Clinician Facility 01-20-2022 12:07-0400 Diastolic blood pressure 58 mm[Hg] No PCP None [facility] DO Work Phone: 01-20-2022 12:07-0400 Systolic blood pressure 105 mm[Hg] No PCP None [facility] DO Work Phone: 01-20-2022 11:58-0400 Body height 147.32 cm No PCP None [facility] DO Work Phone: 01-20-2022 11:58-0400 Body mass index (BMI) [Ratio] 38.87 kg/m2 No PCP None [facility] DO Work Phone: 01-20-2022 11:58-0400 Body surface area Derived from formula 1.77 m2 No PCP None [facility] DO Work Phone: 01-20-2022 11:58-0400 Body weight 84.37 kg No PCP None [facility] DO Work Phone: 01-20-2022 11:58-0400 Diastolic blood pressure 62 mm[Hg] No PCP None [facility] DO Work Phone: 01-20-2022 11:58-0400 Heart rate 60 /min No PCP None [facility] DO Work Phone: 01-20-2022 11:58-0400 Systolic blood pressure 110 mm[Hg] No PCP None [facility] DO Work Phone: 01-20-2022 11:58-0400 6 1 No PCP None [facility] DO Work Phone: Comment on above: PHQ-9 TS 01-14-2022 13:04-0400 Heart rate 74 /min DO W Clarke Garibay Work Phone: [facility] 01-14-2022 13:04-0400 Respiratory rate 20 /min DO W Clarke Yusufdon Work Phone: [facility] 01-14-2022 12:00-0400 Body temperature 98.4 [degF] DO W Clarke Yusufdon Work Phone: [facility] 01-14-2022 12:00-0400 Diastolic blood pressure 69 mm[Hg] DO W Clarke Bebo Work Phone: [facility] 01-14-2022 12:00-0400 SaO2% (BldA) [Mass fraction] 96 % DO W Clarke Yusufdon Work Phone: [facility] 01-14-2022 12:00-0400 Systolic blood pressure 98 mm[Hg] DO W Clarke Bebo Work Phone: [facility] 01-14-2022 04:55-0400 Body weight 85 kg DO W Clarke Garibay Work Phone: [facility] 01-12-2022 08:00-0400 Inhaled oxygen flow rate 3 L/min DO W Clarke Garibay Work Phone: [facility] 01-11-2022 16:45-0400 Inhaled oxygen concentration 50 % DO W Clarke Garibay Work Phone: [facility] 01-11-2022 00:00-0400 35 1 No PCP None -[facility] DO Work Phone: Comment on above: [id number] 01-10-2022 13:01-0400 Body height 147.32 cm DO W Clarke Garibay Work Phone: [facility] 01-10-2022 13:01-0400 Body mass index (BMI) [Ratio] 39.2 kg/m2 DO W Clarke Garibay Work Phone: [facility] Encounters Encounter Date Encounter Type Care Provider Facility Start: 05-21-2024 ambulatory [facility] Start: 04-30-2024 ambulatory [facility] Start: 03-15-2024 ambulatory [facility] Start: 02-27-2024 End: 02-27-2024 ambulatory [facility] Start: 02-07-2024 ambulatory DELL WEAVER [facility] Start: 01-22-2024 ambulatory [facility] Start: 01-22-2024 Encounter for preprocedural cardiovascular examination [facility] Start: 01-12-2024 End: 01-12-2024 ambulatory YELENA CRUZ [facility] Start: 07-31-2023 End: 07-31-2023 ambulatory CIRILO RUBALCAVA [facility] Start: 07-18-2023 End: 07-18-2023 ambulatory ALTON PARKS [facility] Start: 06-28-2023 End: 06-28-2023 ambulatory DEENA BENTON [facility] Start: 05-23-2023 End: 05-23-2023 ambulatory RAFI BISWAS [facility] Start: 12-21-2022 End: 12-22-[address] DOCTOR [...] Start: 01-27-2022 Chart Update No PCP None [facility] DO Work Phone: Start: 01-20-2022 End: 02-11-2022 ambulatory SHAIKH Sergo HERRERA Facility:[facility] Start: 01-20-2022 Transitional care moni clark srvc 7 day discharge No PCP None [facility] DO Work Phone: Start: 01-17-2022 End: 01-18-[address] NOLAN GARIBAY Facility:[facility] Start: 01-10-2022 End: 01-14-2022 Evaluation and management of inpatient DO W Clarke Garibay Work Phone: [facility] Start: 01-10-2022 End: 01-10-2022 ambulatory HASMUKH KATZ . Facility:[facility] Start: 07-22-2021 End: 07-23-2021 ambulatory RAFI BISWAS Facility:[facility] Procedures Date Procedure Procedure Detail Performing [...] Status: Pen, Time: 10:50 AM FUV, Provider: Nloan Garibay, Status: Pen, Time: 10:50 AM [facility] DO Work Phone: Start: 03-21-2022 FUV, Provider: Beth Hull, Status: Pen, Time: 8:30 AM FUV, Provider: Beth Hull, Status: Pen, Time: 8:30 AM [facility] DO Work Phone: Start: 03-14-2022 ECHO, Provider: [facility]TR[facility] 01,[id number], Status: Pen, Time: 10:45 AM ECHO, Provider: [facility] ULTRASOUND 01,[id number], Status: Pen, Time: 10:45 AM [facility] DO Work Phone: Start: 01-26-2022 STRESS MARK, Provider : [facility] NUCLEAR 01,[id number], Status: Pen, Time: 2:00 PM STRESS MARK, Provider: [facility] NUCLEAR 01,[id number], Status: Pen, Time: 2:00 PM [facility] DO Work Phone: Patient Education Coronary Angio plasty (DC) Angina (DC) Drug Eluting Stents [facility] Work Phone: Patient referral [facility] Work Phone: Payers Date Payer Category Payer Medicare [id number] 2019 Unknown [id number] 1970 Unknown [id number] 2.16.8 [id number] 1970 Unknown [id number] 2.16.84 0.1.962348.3.579.2.593 1970 Unknown [id number] 2.16.84 0.1.946783.3.579.2.593 1970 Unknown [id number] 2.16.84 0.1.664774.3.579.2.593 1970 Unknown [id number] 2.16.84 0.1.389225.3.579.2.593 1970 Unknown [id number] 2.16.84 0.1.687328.3.579.2.593 1970 Unknown [id number] 2.16.84 0.1.079712.3.579.2.593 1970 Unknown [id number] 2.16.84 0.1.376382.3.579.2.593 1970 Unknown [id number] 2.16.84 0.1.045617.3.579.2.593 1971 Unknown [id number] 2.16.84 0.1.140676.3.579.2.593 1971 Unknown [id number] 2.16.84 0.1.010895.3.579.2.593 1971 Unknown [id number] 2.16.84 0.1.290101.3.579.2.593 1971 Unknown [id number] 2.16.84 0.1.201828.3.579.2.593 1970 Unknown [id number] 2.16.84 0.1.227586.3.579.2.593 1970 Unknown [id number] 2.16.84 0.1.057690.3.579.2.593 1971 Unknown [id number] 2.16.84 0.1.313024.3.579.2.593 1971 Unknown [id number] 2.16.84 0.1.058594.3.579.2.593 1971 Unknown [id number] 2.16.84 0.1.789417.3.579.2.593 1971 Unknown [id number] 2.16.84 0.1.589336.3.579.2.593 1971 Unknown [id number] 2.16.84 0.1.865834.3.579.2.593 1970 Unknown [id number] 2.16.84 0.1.200156.3.579.2.593 1958 Self-pay [id number] Unknown Unknown [id number] 2.16.84 0.1.793286.3.579.2.593 Unknown [id number] 2.16.8 40.1.654168.3.579.2.531 Social History Date Type Detail Facility Daily caffeine consumption Daily caffeine consumption [facility] Work Phone: Comment on above: 3-4; quit 1 week ago; Start: 01-10-2022 [facility] Start: 1970 Sex Assigned At Female F [facility] Medical Equipment Procedure Code Equipment Code Equipment Origin al Text Equipment Identifier Dates Drug-eluting coronary artery stent, [id number] lymer-coated ()[id number] FDA Start: 01-10-2022 Drug-eluting coronary artery stent, [id number]-[id number] lymer-coated ()[id number] FDA Start: 01-10-2022 Goals Date Patient Goal Desired Activity /State Functional Status Date Assessment Result Facility 01-20-2022 PHQ-9 [id number] Mild (5-9) -[facility] DO Work Phone: 01-14-2022 Functional status Patient at Baseline [facility] Work Phone: 01-10-2022 Functional status Disability Sta tus Patient at Baseline [facility] Work Phone: Mental Status Date Assessment Result Facility 01-10-2022 Cognitive function Cognitive Sta tus Patient at Baseline [facility] Work Phone: Clinical Notes 01-10-2022 to [...] All other systems reviewed and are negative. [facility] 01-12-2024 Note [facility]TP CARDIOLOGY PROGR ESS NOTE HPI: Javier Link is a 53 y.o. female here for routine 6 month f/u HPI Pleasant 53 yo female presents for routine F/U for chronic systolic heart failure, CAD, and LV thrombus. Patient presents today with noted weight loss since last visit that she has been doing purposefully. She continues with cardiac rehab exercise at [facility]. She denies chest pain, shortness of [...] 52-year-old woman. On 01/10/2022 she presented to [facility] with STEMI and was found to [...] is enrolled in cardiac rehab at the [facility] and doing well with that. Anticoagulation clinic at the [facility] follows her warfarin levels. Testing: ECG [...] 28 mm skypoint, 2.5 x 18 mm Hamill. An intra-aortic balloon pump was placed. Visit [...] syncope and le (more content not included)... [facility] 01-12-2024 Note HTN is well-controll ed with current med regimen and renal function stable [facility] 01-12-2024 Note [facility] II-currently eu volemic without exacerbation, no activity limiting symptoms Continue GDMT-aspirin, Lipitor, Coreg, Jardiance, Entresto and Aldactone with Diuretic therapy of Lasix 40 mg daily Monitor daily weights, I&O, fluid restriction 1.5-2L/day, renal function and electrolytes- [facility] 01-12-2024 Note Coronary artery dise ase is unchanged. Continue current medications. Cardiac status will be reassessed in 6 months. Continue goal-directed medical therapy with aspirin, Lipitor, Plavix, Coreg [facility] 01-12-2024 Note Lipid abnormalities are unchanged, well controlled; PCP monitoring LFT. Pharmacotherapy as ordered. Lipids will be reassessed annually. [facility] 01-12-2024 Note No thrombus noted on last 2 TTE [facility] 07-31-2023 Note Subjective Javier Link is a [...] for 2023 because she is switching to [facility] Medicare. Historical: Failed Class I topical steroids, [...] sun safety. Call for any acute issues. [facility] 06-28-2023 Note [place] [facility] Subjective Javier Link is a 53 [...] Drug use: Never HPI Visit of 02/07/2022: Jvaier is seen as a new patient. The following information is from review of the available medical record. She is a 52-year-old woman. On 01/10/2022 she presented to [facility] with STEMI and was found to [...] is enrolled in cardiac rehab at the [facility] and doing well with that. Anticoagulation clinic at the [facility] follows her warfarin levels. Testing: ECG [...] 28 mm skypoint, 2.5 x 18 mm Hamill. An intra-aortic balloon pump was placed. Visit [...] exertion NYHA class (more content not included)... [facility] 05-23-2023 Note Orthopedic Surgery Subjective Pain of [...] History: Diagnosis Date CHF (congestive heart failure) ([facility]) Coronary artery disease Hyperlipidemia Hypertension Left ventricular thrombus NSTEMI (non-ST elevated myocardial infarction) ([facility]) Objective General: Body mass index is 36.37 [...] finger: normal A1 steven and AROM Strength: slot ambassador 5/5, thumb 5/5, interossei 5/5 Sensation: intact [...] finger: normal A1 steven and AROM Strength: slot ambassador 5/5, thumb 5/5, interossei 5/5 Sensation: intact [...] to verify the correct patient, procedure, equipment, support technician and site/side marked as required. Patient was [...] right thumb C (more content not included)... [facility] 05-23-2023 Note Patient ID: Javier Link is [...] to verify the correct patient, procedure, equipment, support technician and site/side marked as required. [facility] 10-31-2022 Note CARDIAC STRESS TEST Requesting Physician: Deena Bneton M.D. Procedure Date:10/31/2022 At baseline, patient had [...] CAD evaluation with invasive stress test. [facility] 01-13-2022 Progress note Note Date/Time January 13, 2022 3:15pm [facility] [address] [place] [address] Cardiology Progress Note Signed Patient: Javier Link MR#: [id number] : 1970 Acct:[id number] Age/Sex: 51 / F Adm Date: 2 Loc: Room: [address] [place] [address] Type : ADM IN Attending Dr: Isidra [...] <Electronically signed by Isidra Garibay DO> 01/13/22 7433 [facility] Work Phone: 1(803) 227-448706-01-2022 Progress note Author Isidra Garibay [facility] January 12, 2022 3:16pm Note Date/Time January 12, 2022 3:16p m [facility] [address] [place] [address] Cardiology Progress Note Signed Patient: Javier Link MR#: [id number] : 1970 Acct:[id number] Age/Sex: 51 / F Adm Date: 2 Loc: Room: [address] [place] [address] Type : ADM IN Attending Dr: Isidra [...] <Electronically signed by Isidra Garibay DO> 01/12/22 1510 [facility] Work Phone: 1(313) 265-420705-31-2022 Progress note Author Isidra Garibay [facility] January 11, 2022 1:38pm Note Date/Time January 11, 2022 1:38p m [facility] [address] [place], [place] [id number] Cardiology Progress Note Signed Patient: Javier Link MR#: [id number] : 1970 Acct:[id number] Age/Sex: 51 / F Adm Date: 2 Loc: Room: 0A9644-8 Type : ADM IN Attending Dr: Isidra [...] ALT Alkaline Phosphatase Troponin I High Sens 91099 H* Total Protein Albumin Globulin Albumin/Globulin Ratio [...] ALT Alkaline Phosphatase Troponin I High Sens 009247 H* Total Protein Albumin Globulin Albumin/Globulin Ratio Triglycerides Cholesterol LDL Cholesterol, Calc VLDL Cholesterol HDL Cholesterol Cholesterol/HDL Ratio 01/10/22 01/10/22 01/10/22 20:42 21:57 23:37 APTT PHA Creatinine Clear Sodium Potassium Chloride Carbon Dioxide BUN Creatinine Est GFR ( Amer) Est GFR (Non-Af Amer) Glucose POC Glucose 148 Calcium Magnesium Total Bilirubin AST ALT Alkaline Phosphatase Troponin I High Sens 963798 H* 643790 H* Total Protein Albumin Globulin Albumin/Globulin Ratio [...] Alkaline Phosphatase 85 Troponin I High Sens 90682 H* Total Protein 6.0 L Albumin 2.9 [...] signed by Isidra Garibay DO> 01/11/22 1338 [facility] Work Phone: 1(586) 340-376905-30-2022 History and physical note Author Isidra Garibay [facility] January 10, 2022 12:14pm Note Date/Time January 10, 2022 10:30 am [facility] [address] [place] [address] Cardiology H&P Signed Patient: Javier Link MR#: [id number] : 1970 Acct:[id number] Age/Sex: 51 / F Adm Date: 2 Loc: Room: Type: [facility] Attending Dr: Isidra Garibay DO Copies to: NON STAFF Isidra Garibay DO~ Date of Service: 01/10/2022 Cardiology HPI History of Present Illness Chief complaint: Inferolateral STEMI HPI: Ms. Link is a 51 year old female transferred from [place] emergency room this morning after receiving phone call from Dr. Katz and reviewing electronic transmitted media and discussion about the clinical case. Patient presented with severe chest discomfort with no prior history of cardiac illness or intervention. ECGs reveal sinus rhythm with inferolateral ST elevation injury current. She was admitted restarted upstream antiplatelet and Antithrombin therapy, and transferred to the [facility] emergently. Patient arrived at [place] ER at 0924, first ECG transmitted to la was 0948, [facility] [employer] [facility] team was activated at 0952, patient was transferred by ground, arrived in [facility] at 1033 and underwent primary PCI at [...] ER staff, review of electronic transmitted media, [employer] [facility] staff, nursing staff and family both pre [...] changes or abnormalities: ST suggestive of injury WA, pacemaker, normal Myocardial infarction: inferior WA (acute or recent) and lateral WA (acute or recent) A&P - Cardiology (1) ST elevation myocardial infarction (STEMI) of inferolateral wall: Code(s): I21.19 - ST elevation (STEMI) myocardial infarction involving other coronary artery of inferior wall (2) Hyperlipidemia: Code(s): E78.5 - Hyperlipidemia, unspecified (3) Essential hypertension: Code(s): I10 - Essential (primary) hypertension Documented By: Isidra Garibay DO 01/10/22 1026 Signed By: <Electronically signed by Isidra Garibay DO> 01/10/22 1214 [facility] Work Phone: 1(795) 572-880405-30-2022 Procedure [facility]05[facility]30[facility]2022 [facility] Center[facility] Narrative - Reported* 51-year-old female returns for transitional care management office visit following recent large anterior WA with associated cardiogenic shock and primary revascularization of the LAD, details of which are reviewed. She had intra-aortic balloon pump counterpulsation for 24 hours, subsequent diagnosis of LV thrombus with reduced LV function. She was transition to clopidogrel warfarin, aspirin triple therapy. She did have brief episodes of bobbi-WA/postoperative VT that stabilized on amiodarone andthen we [...] 12 weeks and myselfin approximately [address] Work Phone: Chief complaint Narrative - Reported* 51-year-old female returns for transitional care management office visit following recent large anterior WA with associated cardiogenic shock and primary revascularization of the LAD, details of which are reviewed. She had intra- aortic balloon pump counterpulsation for 24 hours, subsequent diagnosis of LV thrombus with reduced LV function. She was transition to clopidogrel warfarin, aspirin triple therapy. She did have brief episodes of bobbi-WA/postoperative VT that stabilized on amiodarone andthen we [...] 12 weeks and myselfin approximately 4 months [facility] Work Phone: Chief complaint Narrative - Reported* 51-year-old female returns for transitional care management office visit following recent large anterior WA with associated cardiogenic shock and primary revascularization of the LAD, details of which are reviewed. She had intra- aortic balloon pump counterpulsation for 24 hours, subsequent diagnosis of LV thrombus with reduced LV function. She was transition to clopidogrel warfarin, aspirin triple therapy. She did have brief episodes of bobbi-WA/postoperative VT that stabilized on amiodarone andthen we [...] 12 weeks and myselfin approximately 4 months [facility] Work Phone: Evaluation note* Diagnosis Onset Date Resolution Status Essential hypertension acute Hyperlipidemia acute Left ventricular thrombus ac [place] ST elevation myocardial infa rction (STEMI) of inferolateral wall acute [facility] Work Phone: Hospital Discharge instructions Additional Instructions [facility] to manage your Coumadin dosing [...] doctor or pharmacist, without first calling the curator of photography and prints who implanted the stent. If you require [...] weight lifting, stair steppers, etc. until the curator of photography and prints approves these activities. Check with the curator of photography and prints on your first follow-up visit. CALL YOUR PHYSICIAN at [phone]: -If bleeding should occur from the catheter insertion site- apply pressure to the site then immediately call us. -Report any fever, redness, drainage, increased swelling, or firmness at the catheter insertion site. Some bruising or slight swelling may be present at the time of discharge. -Should arm or leg become cold, numb, white, or blue, contact the curator of photography and prints immediately. -IF you should experience episodes of [...] is recommended. Please call Central Scheduling at [phone] to schedule your appointment.] The attending curator of photography and prints or [facility] nurse clinician should provide you with specific instructions regarding activity, diet, medications, and further follow up for you. Follow the medication instructions provided on your discharge. If the dosages and instructions on this sheet differ from the dosage and instructions on the bottle, follow the instructions on the bottle. [facility] is not responsible for incorrect prescription information provided by the patient during their visit. Do not stop your medications without consulting your health care provider. Please take the list with you to your next doctor's appointment.[facility] Work Phone: Summary Purpose Family History [...] and content) DATE CREATED AUTHOR 09/11/2021 [facility] DATE CREATED AUTHOR AUTHOR'S ORGANIZ ATION 03/09/2022 [facility] DATE CREATED AUTHOR AUTHOR'S ORGANIZ ATION 12/25/[address] [facility] pital DATE CREATED AUTHOR AUTHOR'S ORGANIZ ATION 05/11/2024 [facility] DATE CREATED AUTHOR AUTHOR'S ORGANIZ ATION 05/22/2024 [facility] Care Teams (unrecognized sec tion and [...] BE BASED ON THE PRIMARY CLINICAL RECORDS. [facility] [employer] [facility]. provides no warranty or guarantee of the accuracy or completeness of information in this document.
--- NOTE | 2024-06-07 19:25 | ED.GENADUL1 ---
HPI HPI - General Adult General Chief complaint: Urogenital-Female Stated complaint: UTI Time Seen by Provider: 06/07/24 18:58 Source: patient Mode of arrival: walk-in History of Present Illness HPI narrative: 54-year-old female presents here with chief complaint of UTI. Patient's had chronic UTI for the past several months. She has been taking Keflex. She has not had any antibiotics for the last 10 to 12 days. She had a urine culture obtained on Monday her primary care physician called her today on Monday I gave her results. Told her to come to the emergency room for IV antibiotics. Patient's vital signs are stable she is afebrile. She does not appear toxic. Complains of mild nausea. Related Data Home Medications ?Medication ?Instructions ?Recorded ?Confirmed atorvastatin 80 mg tablet 80 mg PO DAILY 05/04/24 05/04/24 bupropion HCl 300 mg 24 hr tablet, 300 mg PO DAILY 05/04/24 05/04/24 extended release buspirone 15 mg tablet 15 mg PO BID 05/04/24 05/04/24 clopidogrel 75 mg tablet 75 mg PO DAILY 05/04/24 05/04/24 duloxetine 30 mg capsule,delayed 30 mg PO BID 05/04/24 05/04/24 release (Cymbalta) empagliflozin 10 mg tablet 10 mg PO DAILY 05/04/24 05/04/24 (Jardiance) fluticasone furoate 100 1 inh inhalation Q24H 05/04/24 05/04/24 mcg/actuation blister powder for inhalation (Arnuity Ellipta) levothyroxine 125 mcg tablet 125 mcg PO DAILY 05/04/24 05/04/24 pantoprazole 40 mg tablet,delayed 40 mg PO Q12H 05/04/24 05/04/24 release potassium chloride 10 mEq 10 meq PO DAILY 05/04/24 05/04/24 tablet,extended release(part/cryst) semaglutide 2 mg/dose (8 mg/3 mL) 2 mg subcut QWEEK 05/04/24 05/04/24 subcutaneous pen injector (Ozempic) Previous Rx's ?Medication ?Instructions ?Recorded carvedilol 12.5 mg tablet 6.25 mg (1/2 x 12.5 mg) PO Q12H #0 05/06/24 tabs cefdinir 300 mg capsule 600 mg (2 x 300 mg) PO DAILY #14 05/06/24 caps furosemide 40 mg tablet 20 mg (1/2 x 40 mg) PO DAILY #0 05/06/24 tabs cephalexin 500 mg capsule 500 mg PO TID 10 days #30 caps 06/07/24 Allergies Allergy/AdvReac Type Severity Reaction Status Date / Time avalox Allergy hives Uncoded 05/04/24 16:51 Opioid HPI Opioid Management Most Recent Opioid Data: Last ORT Total Score 4 05/04/24 20:25 05/04/24 Last ORT Risk Category Moderate Risk 05/04/24 20:25 05/04/24 Review of Systems ROS Narrative All Systems are negative except as noted/marked.All systems reviewed and otherwise negative PFSH [facility] Medical History (Updated 06/07/24 @ 20:39 by Jody Hu) HTN (hypertension) ?I10 - Essential (primary) hypertension (ICD-10) Abnormal thyroid blood test ?R79.89 - Other specified abnormal findings of blood chemistry (ICD-10) UTI (urinary tract infection) ?N39.0 - Urinary tract infection, site not specified (ICD-10) Anorexia ?R63.0 - Anorexia (ICD-10) Nausea & vomiting ?R11.2 - Nausea with vomiting, unspecified (ICD-10) BRIAN (acute kidney injury) ?N17.9 - Acute kidney failure, unspecified (ICD-10) Hypotension due to hypovolemia ?E86.1 - Hypovolemia (ICD-10) Hyponatremia ?E87.1 - Hypo-osmolality and hyponatremia (ICD-10) Mild persistent asthma ?J45.30 - Mild persistent asthma, uncomplicated (ICD-10) Major depression ?F32.9 - Major depressive disorder, single episode, unspecified (ICD-10) HLD (hyperlipidemia) ?E78.5 - Hyperlipidemia, unspecified (ICD-10) Type 2 diabetes mellitus ?E11.9 - Type 2 diabetes mellitus without complications (ICD-10) Hypothyroidism ?E03.9 - Hypothyroidism, unspecified (ICD-10) (HFpEF) heart failure with preserved ejection fraction ?I50.30 - Unspecified diastolic (congestive) heart failure (ICD-10) CAD (coronary artery disease) ?I25.10 - Atherosclerotic heart disease of [place] coronary artery without angina pectoris (ICD-10) [place]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 ?M93.1 - Kienbock's disease of adults (ICD-10) FH: total knee replacement ?Z82.69 - Family history of other diseases of the musculoskeletal system and connective tissue (ICD-10) Cardiac defibrillator in place ?Z95.810 - Presence of automatic (implantable) cardiac defibrillator (ICD-10) Depression ?F32.A - Depression, unspecified (ICD-10) Thyroid disease ?E07.9 - Disorder of thyroid, unspecified (ICD-10) History of heart attack ?I25.2 - Old myocardial infarction (ICD-10) Surgical History (Updated 05/04/24 @ 20:20 by Sweta Treviño) History of endometrial ablation ?Z98.890 - Other specified postprocedural states (ICD-10) Family History (Updated 05/04/24 @ 20:21 by Sweta Treviño) Other Family history of CHF (congestive heart failure) Family history of COPD (chronic obstructive pulmonary disease) Family history of cancer Family history of diabetes mellitus Family history of hypertension Family history of myocardial infarction Social History (Updated 05/04/24 @ 20:22 by Sweta Treviño) Within the past year, how often did you have a drink containing alcohol: monthly or less Within the past year, how many standard drinks containing alcohol did you have on a typical day: 1 or 2 Within the past year, how often did you have six or more drinks on one occasion: never Total score: 0 Score interpretation: A score less than 3 is consistent with normal alcohol consumption. Smoking status: Former smoker Non-prescribed substance use: denies use Previous occupational history: unemployed Highest level of school completed/degree received: high school graduate Are you now , , , , never or living with a partner: In a typical week, how many times do you talk on the telephone with family, friends, or neighbors: 3 or more times per week How often do you get together with friends or relatives: 3 or more times per week Little interest or pleasure in doing things: not at all Feeling down, depressed, or hopeless: not at all Feel stressed/tense/nervous/anxious/difficulty sleeping: not at all Do you think of yourself as: straight/heterosexual Gender Identity: female Exam Narrative Exam Narrative: All Systems are negative except as noted/marked.All systems reviewed and otherwise negative Nurses note and vital signs reviewed and patient is not hypoxic. General: The patient appears well and in no apparent distress. Patient is resting comfortably on cart. Skin: Warm, dry, no pallor noted. There is no rash noted. Head: Normocephalic, atraumatic Eye: Normal conjunctiva, no drainage, EOMI. PERRL Ears, Nose, Mouth, and Throat: oral mucosa is moist. Nares patent. Mouth without vesicles. Ear canals patent. Tm's without Erythema Cardiovascular: Regular Rate and Rhythm Respiratory: Patient is in no distress, no accessory muscle use, lungs are clear to auscultation, no wheezing, rales or rhonchi Back: non-tender, no CVA tenderness bilaterally to percussion. GI: Normal bowel sounds, no tenderness to palpation, no masses appreciated. No rebound, guarding, or rigidity noted. Musculoskeletal: The patient has no evidence of calf tenderness, no pitting edema, symmetrical pulses noted bilaterally Neurological: A&O x4, normal speech Psychiatric: Cooperative Constitutional Vital Signs, click to edit/add: Last Vital Signs Temp 98.6 F 06/07/24 18:47 Pulse 73 06/07/24 18:47 Resp 18 06/07/24 18:47 BP 146/100 H 06/07/24 18:47 Pulse Ox 100 06/07/24 18:47 O2 Del Method Room Air 06/07/24 18:47 Course Vital Signs Vital signs: Vital Signs Temperature 98.6 F 06/07/24 18:47 Pulse Rate 73 06/07/24 18:47 Respiratory Rate 18 06/07/24 18:47 Blood Pressure 146/100 H 06/07/24 18:47 Pulse Oximetry 100 06/07/24 18:47 Oxygen Delivery Method Room Air 06/07/24 18:47 Temperature 98.6 F 06/07/24 18:47 Pulse Rate 73 06/07/24 18:47 Respiratory Rate 18 06/07/24 18:47 Blood Pressure 146/100 H 06/07/24 18:47 Pulse Oximetry 100 06/07/24 18:47 Oxygen Delivery Method Room Air 06/07/24 18:47 Medical Decision Making MDM Narrative Medical decision making narrative: Patient presented to the emergency room with a chief complaint of needing antibiotics. Primary care physician called her about a urine culture that was obtained on Monday of this past week and Received today in the office. Patient was notified about for 15 to come to the emergency room for antibiotics. Patient had some nausea. Urinalysis today does not appear infected but her culture shows that she does have Pseudomonas with susceptibility to Keflex which she had been on previously. Patient was given IV Rocephin today and will be placed on Keflex again for 3 times daily for 14 days. Patient has a hive-like reaction for Avelox. Patient encouraged to follow-up with PCP for further assessment. Patient felt well at discharge agree with plan of care Differential Diagnosis Differential Diagnosis: , Dysuria, sepsis, UTI Medical Records Medical records reviewed: Yes I reviewed the patient's medical records Lab Data Lab results reviewed: Yes I reviewed the patient's lab results Labs: Lab Results 06/07/24 06/07/24 Range/Units 19:20 19:22 WBC 9.9 (4.0-11.0) 10^3/uL RBC 4.66 (4.20-5.40) 10^6/uL Hgb 15.0 (12.0-16.0) g/dL Hct 44.8 (36.0-48.0) % MCV 96.1 (81.0-99.0) fL MCH 32.2 (26.7-34.0) pg MCHC 33.5 (29.9-35.2) g/dL RDW 12.6 (11.0-15.0) % Plt Count 199 (150-450) 10^3/uL MPV 10.9 (9.5-13.5) fL Neut % (Auto) 59.9 (43.0-75.0) % Lymph % (Auto) 30.6 (20.5-60.0) % Sampson % (Auto) 7.1 (1.7-12.0) % Eos % (Auto) 1.6 (0.9-7.0) % Baso % (Auto) 0.5 (0.2-2.0) % Neut # (Auto) 6.0 (1.4-6.5) 10^3/uL Lymph # (Auto) 3.0 (1.2-3.8) 10^3/uL Sampson # (Auto) 0.7 (0.3-0.8) 10^3/uL Eos # (Auto) 0.2 (0.0-0.7) 10^3/uL Baso # (Auto) 0.1 (0.0-0.1) 10^3/uL Abs Immat Gran (auto) 0.03 (0.00-0.03) 10^3/uL Imm/Tot Granulo (auto) 0.3 (0.0-0.5) % Sodium 136 (136-145) mmol/L Potassium 3.6 (3.5-5.1) mmol/L Chloride 99 (98-107) mmol/L Carbon Dioxide 27.7 (21.0-32.0) mmol/L Anion Gap 12.9 BUN 9.0 (7.0-18.0) mg/dL Creatinine 1.11 H (0.55-1.02) mg/dL Est GFR ( Amer) >60 (>=60 mL/min/1.73m^2) Est GFR (Non-Af Amer) 51 L (>=60 mL/min/1.73m^2) BUN/Creatinine Ratio 8.1 Glucose 83 (74-106) mg/dL Calcium 9.2 (8.5-10.1) mg/dL Total Bilirubin 0.5 (0.2-1.0) mg/dL AST 18 (15-37) U/L ALT 22 (14-59) U/L Alkaline Phosphatase 131 H (46-116) U/L Total Protein 7.5 (6.4-8.2) g/dL Albumin 3.5 (3.4-5.0) g/dL Globulin 4.0 g/dL Albumin/Globulin Ratio 0.9 Urine Color Lt. yellow (YELLOW) Urine Clarity Clear (CLEAR) Urine pH 6.0 (5.0-9.0) Ur Specific [place] <=1.005 A (1.005-1.025) Urine Protein Negative (NEG/TRACE) mg/dL Urine Glucose (UA) 500 A (NEGATIVE) mg/dL Urine Ketones Negative (NEGATIVE) mg/dL Urine Occult Blood Negative (NEGATIVE) Urine Nitrite Negative (NEGATIVE) Urine Bilirubin Negative (NEGATIVE) Urine Urobilinogen 0.2 (0.2-1.0) EU/dL Ur Leukocyte Esterase Negative (NEGATIVE) Discharge Plan Discharge Chief Complaint: Urogenital-Female Clinical Impression: Urinary tract infection Patient Disposition: Home, Self-Care Time of Disposition Decision: 20:38 Condition: Good Prescriptions / Home Meds: New cephalexin 500 mg capsule 500 mg PO TID 10 Days Qty: 30 0RF No Action atorvastatin 80 mg tablet 80 mg PO DAILY bupropion HCl 300 mg tablet extended release 24 hr 300 mg PO DAILY clopidogrel 75 mg tablet 75 mg PO DAILY Arnuity Ellipta 100 mcg/actuation blister with device 1 inh INHALATION Q24H levothyroxine 125 mcg tablet 125 mcg PO DAILY pantoprazole 40 mg tablet,delayed release (DR/EC) 40 mg PO Q12H potassium chloride 10 mEq tablet,ER particles/crystals 10 meq PO DAILY Ozempic 2 mg/dose (8 mg/3 mL) pen injector 2 mg subcut QWEEK Jardiance 10 mg tablet 10 mg PO DAILY duloxetine [Cymbalta] 30 mg capsule,delayed release(DR/EC) 30 mg PO BID Patient Comments: 40mg buspirone 15 mg tablet 15 mg PO BID cefdinir 300 mg capsule 600 mg PO DAILY Qty: 14 0RF furosemide 40 mg tablet 20 mg PO DAILY Qty: 0 0RF carvedilol 12.5 mg tablet 6.25 mg PO Q12H Qty: 0 0RF Print Language: Syrian Instructions: Urinary Tract Infection in Women (DC) Referrals: NIKKI KELLOGG [Primary Care Provider] - 1 week
[2024-06-07] MEDS: ONDANSETRON PF 4 MG/2 ML VIAL IV (19:30)
[2024-06-07] MEDS: CEFTRIAXONE 1,000 MG in 0.9 % SODIUM CHLORIDE 50 ML 100 MG IV (19:31)
[2024-06-07] MEDS: 0.9 % SODIUM CHLORIDE 1,000 ML 100 ML IV (19:31)
[2024-06-07 19:51] LABS: Basophils Absolute Auto 0.1 10^3/uL (0.0-0.1); Basophils Percent Auto 0.5 % (0.2-2.0); Eosinophils Absolute Auto 0.2 10^3/uL (0.0-0.7); Eosinophils Percent Auto 1.6 % (0.9-7.0); Hematocrit 44.8 % (36.0-48.0); Immature Granulocytes Abs Auto 0.03 10^3/uL (0.00-0.03); Immature Granulocytes Pct Auto 0.3 % (0.0-0.5); Lymphocytes Percent Auto 30.6 % (20.5-60.0); Mean Corpuscular HGB Conc 33.5 g/dL (29.9-35.2); Mean Corpuscular Hemoglobin 32.2 pg (26.7-34.0); Mean Corpuscular Volume 96.1 fL (81.0-99.0); Mean Platelet Volume 10.9 fL (9.5-13.5); Monocytes Absolute Auto 0.7 10^3/uL (0.3-0.8); Monocytes Percent Auto 7.1 % (1.7-12.0); Neutrophils Percent Auto 59.9 % (43.0-75.0); Platelet Count 199 10^3/uL (150-450); Red Blood Count 4.66 10^6/uL (4.20-5.40); Red Cell Distribution Width 12.6 % (11.0-15.0); White Blood Count 9.9 10^3/uL (4.0-11.0)
[2024-06-07 20:00] LABS: Bilirubin Urine NEGATIVE (NEGATIVE); Blood Urine NEGATIVE (NEGATIVE); Clarity Urine CLEAR (CLEAR); Color Urine LT. YELLOW (YELLOW); Glucose Urine UA 500 mg/dL (NEGATIVE); Ketones Urine NEGATIVE (NEGATIVE); Leukocyte Esterase Urine NEGATIVE (NEGATIVE); Nitrite Urine NEGATIVE (NEGATIVE); Protein Urine NEGATIVE (NEG/TRACE); Specific Gravity Urine <=1.005 (1.005-1.025); Urobilinogen Urine 0.2 EU/dL (0.2-1.0)
[2024-06-07 20:01] LABS: Urine Microscopic Indicated NO
[2024-06-07 20:07] LABS: Alanine Aminotransferase 22 U/L (14-59); Albumin Globulin Ratio 0.9; Albumin Level 3.5 g/dL (3.4-5.0); Alkaline Phosphatase 131 U/L (46-116); Anion Gap 12.9; Aspartate Amino Transferase 18 U/L (15-37); BUN Creatinine Ratio 8.1; Bilirubin Total 0.5 mg/dL (0.2-1.0); Calcium 9.2 mg/dL (8.5-10.1); Carbon Dioxide 27.7 mmol/L (21.0-32.0); Chloride 99 mmol/L (98-107); Estimated GFR (African America >60 (>=60 mL/min/1.73m^2); Estimated GFR (Non-African Ame 51 (>=60 mL/min/1.73m^2); Potassium 3.6 mmol/L (3.5-5.1); Sodium 136 mmol/L (136-145); Total Protein 7.5 g/dL (6.4-8.2)
[2024-06-07 20:10] LABS: Glucose 83 mg/dL (74-106)
[2024-06-07 20:55] VITALS: BP 142/88
== END 2024-06-07 20:57 | disposition home or self-care (01) ==
PROVIDERS: Physician Assistant; Emergency Provider Emergency Medicine; PCP Nurse Practitioner Family
DX: N39.0 Urinary tract infection, site not specified (principal); Z87.891 Personal history of nicotine dependence
CPT/HCPCS: 36415; 80053; 81003; 85025; 96365; 96375; 99284; J0696; J2405

== ENCOUNTER 2024-06-26 09:41 | Outpatient (OUT) | payer MEDICARE, SELFPAY ==
--- OUTSIDE RECORDS SUMMARY | 2024-06-26 09:52 | XMS_ITS | CCD ---
Author Organization [facility] Informat ion Partnership [facility] Care Team Providers Care Supervisor Paste Mixing Name Role Phone RAFI BISWAS Attending Unavailable MORIAH MACK Primary Care Unavailable MORIAH MACK Referring Unavailable RAFI BISWAS Admitting Unavailable None, No PCP Unavailable Unavailable Unavailable Unavailable DO Isidra Garibay Admit Provider DO Isidra Garibay Attending Provider NON STAFF Primary Care Provider UnavailALTON Bowen [...] MELODIE ., MEREDITH MEMBRENO Consulting Unavailcarl e HASMUKH HILTON Attending Unavailable HASMUKH HILTON [...] Garibay Attending Unavailable Isidra Garibay Admitting Unavailable ALTON PARKS Referring Unavailable CIRILO RUBALCAVA Attending Unavailable DEENA BENTON Attending Unavailable OWEN, DELL Referring Unavailable OWEN, DELL Referring Unavailable OWEN, DELL Referring Unavailable OWEN, DELL Referring Unavailable OWEN, DELL Referring Unavailable OWEN, DELL Referring Unavailable ALTON PARKS Referring Unavailable BAILEY, ALTON Referring Unavailable BAILEY, ALTON Referring Unavailable BAILEY, ALTON Referring Unavailable BAILEY, ALTON Referring Unavailable BAILEY, ALTON Referring Unavailable BAILEY, ALTON Referring Unavailable ANTHONY, YELENA Attending Unavailable BAILEY, ALTON Referring Unavailable OWEN, DELL Referring Unavailable Allergies Allergy Classification Reported Allergen(s) Allergy Type Date of Onset Reaction(s) Facility (1 source) AVELOX IN NACL (ISO-OSMOTIC); Translations: [AVELOX IN NACL (ISO-OSMOTIC)] Propensity to adverse reactions (disorder) [address] [facility] Repository (4 sources) moxifloxacin; Translations: [Avelox] Drug Allergy [place] [address] DO Work Phone: (3 sources) moxifloxacin; Translations: [moxifloxacin] Drug Allergy 2 [facility] (1 source) moxifloxacin Drug Allergy 3 [facility] Repository (1 source) Chlorhexidine; Translations: [CHLORHEXIDINE GLUCONATE] Drug Allergy 0 [facility] Repository Medications Current Medications Medication Drug Class(es) Dates Sig (Normalized) Sig (Original) [id number] 200 actuat albuterol 0.09 mg/actuat metered dose [...] 10, 2022 1:49pm take 1 capsule by [facility] three times daily as needed Benzonatate 200 [...] 10, 2022 6:58pm take 1 capsule by [facility] once daily before breakfast Levothyroxine Sodium 137 [...] MG Oral Tablet Take as directed by [facility] Quantity: 0 Refills: 0 Ordered: [...] sources) Coronary arteriosclerosis; Translations: [Coronary atherosclerosis of [place] coronary artery] Onset: 02-02-2022 Chronic Diabetes mellitus [...] disease with heart failure] Onset: 11-30-2022 Chronic Nonspecific chest pain (4 sources) Other chest pain; Translations: [OTHER CHEST PAIN] Onset: 10-31-2022 Episodic Other aftercare (4 sources) Drug therapy finding; [...] [Arthropathic psoriasis, unspecified] Onset: 10-03-2022 Chronic Other nutritional; endocrine; and metabolic disorders [...] 02-28-2022 Episodic Other aftercare (1 source) 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; Translations: [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] Onset: 06-07-2022 Episodic Other aftercare (4 sources) Encounter for therapeutic drug level monitoring; Translations: [ENC THERAPEUTC DRUG LEVL MONITORING] Onset: 05-15-2022 Episodic Other aftercare (1 source) [facility] (current) use of anticoagulants; Translations: [ROUTE SALES SPECIALIST CURRNT USE ANTICOAGULANTS] Onset: 06-14-2022 Episodic [...] Range Facility Office Visiton 01-12-2024 Follow-up visit [id number] Javier Link 1970 F Date Provider Department Center 01/12/2024 120-ANTHONY YELENA CARD [facility] Family History Problem Relation Age of Onset Atrial fibrillation Mother Other Mother Heart attack Father Other Father Other Father Family Status - Relation Status Age at Mother Father Level of Service:73866 AL OFFICE/OUTPATIENT ESTABLISHED MOD MDM [address] [facility] 36on 09-29-2023 36 Yes please! [facility] 36 Can we give patient sample? Normal [facility] Follow-Upon 07-31-2023 Follow-Up [id number] Javier Link 1970 F Date Provider Department Center 07/31/2023 506-CIRILO RUBALCAVA [facility] Family History Problem Relation Age of Onset Atrial fibrillation Mother Other Mother Heart attack Father Other Father Other Father Family Status - Relation Status Age at Mother Father Level of Service:39468 AL OFFICE/OUTPATIENT ESTABLISHED MOD MDM 30-39 MIN Reason for Visit and Comments: Follow-up [025001] - Discuss medication switch [facility] Office Visiton 06-28-2023 Follow-up visit [id number] Javier Link 1970 F Date Provider Department Center 06/28/2023 367-DEENA BENTON [facility] Family History Problem Relation Age of Onset Atrial fibrillation Mother Other Mother Heart attack Father Other Father Other Father Family Status - Relation Status Age at Mother Father Level of Service:37557 AL OFFICE/OUTPATIENT ESTABLISHED LOW MDM 20-29 MIN Reason for Visit and Comments: Follow-up [603239] - BP running higher. Normal [facility] PROF CHEM 8 (BAS METB)on Anion gap [Moles/Vol] 14.8 mmol/L Normal [facility] Comment on above: Performed By: #### C BC #### [facility] [address] [address] [address] Vangie Devine Calcium [Mass/Vol] 8.9 mg/dL Normal 8.5-10.1 [facility] Comment on above: Performed By: #### C BC #### [facility] [address] [address] [address] Vangie Devine Chloride [Moles/Vol] 101 mmol/L Normal 98-107 [facility] Comment on above: Performed By: #### C BC #### [facility] [address] [place] [address] Dr. Vangie Devine CO2 [Moles/Vol] 25.9 mmol/L Normal 21.0-32.0 [facility] Comment on above: Performed By: #### C BC #### [facility] [address] [place] [address] Dr. Vangie Devine Creatinine [Mass/Vol] 0.91 mg/dL Normal 0.55-1.02 [facility] Comment on above: Performed By: #### C BC #### [facility] [address] [place] [address] Dr. Vangie Devine EGFR-AF MAURITIAN >60 Normal >=60 [facility] Comment on above: Performed By: #### C BC #### [facility] [address] [place] [address] Dr. Vangie Devine EGFR-NON AF MAURITIAN >60 Normal >=60 [facility] Comment on above: Performed By: #### C BC #### [facility] [address] [place] [address] Dr. Vangie Devine Glucose [Mass/Vol] 93 mg/dL Normal 74-106 [facility] Comment on above: Performed By: #### C BC #### [facility] [address] [place] [address] Dr. Vangie Devine Potassium [Moles/Vol] 4.7 mmol/L Normal 3.5-5.1 [facility] Comment on above: Performed By: #### C BC #### [facility] [address] [place] [address] Dr. Vangie Devine Sodium [Moles/Vol] 137 mmol/L Normal 136-145 [facility] Comment on above: Performed By: #### C BC #### [facility] [address] [place] [address] Dr. Vangie Devine Urea nitrogen [Mass/Vol] 9.0 mg/dL Normal 7.0-18.0 [facility] Comment on above: Performed By: #### C BC #### [facility] [address] [place] [address] Dr. Vangie Devine Urea nitrogen/Creatinine [Mass ratio] 9.9 mg/mg Normal [facility] Comment on above: Performed By: #### C BC #### [facility] [address] [place] [address] Dr. Vangie Devine PROF CHEM 8 (BAS METB)on Anion gap [Moles/Vol] 15.6 mmol/L Normal [facility] Comment on above: Performed By: #### P TT, PT #### [facility] [address] [place] [address] Dr. Vangie Devine Calcium [Mass/Vol] 8.9 mg/dL Normal 8.5-10.1 [facility] Comment on above: Performed By: #### P TT, PT #### [facility] [address] [place] [address] Dr. Vangie Devine Chloride [Moles/Vol] 101 mmol/L Normal 98-107 [facility] Comment on above: Performed By: #### P TT, PT #### [facility] [address] [place] [address] Dr. Vangie Devine CO2 [Moles/Vol] 24.7 mmol/L Normal 21.0-32.0 [facility] Comment on above: Performed By: #### P TT, PT #### [facility] [address] [place] [address] Dr. Vangie Devine Creatinine [Mass/Vol] 0.95 mg/dL Normal 0.55-1.02 [facility] Comment on above: Performed By: #### P TT, PT #### [facility] [address] [place] [address] Dr. Vangie Devine EGFR-AF MAURITIAN >60 Normal >=60 [facility] Comment on above: Performed By: #### P TT, PT #### [facility] [address] [place] [address] Dr. Vangie Devine EGFR-NON AF MAURITIAN >60 Normal >=60 [facility] Comment on above: Performed By: #### P TT, PT #### [facility] [address] [address] [address] Vangie Devine Glucose [Mass/Vol] 101 mg/dL Normal 74-106 [facility] Comment on above: Performed By: #### P TT, PT #### [facility] [address] [address] [address] Vangie Devine Potassium [Moles/Vol] 4.3 mmol/L Normal 3.5-5.1 [facility] Comment on above: Performed By: #### P TT, PT #### [facility] [address] [address] [address] Vangie Devine Sodium [Moles/Vol] 137 mmol/L Normal 136-145 [facility] Comment on above: Performed By: #### P TT, PT #### [facility] [address] [address] [address] Vangie Devine Urea nitrogen [Mass/Vol] 15.0 mg/dL Normal 7.0-18.0 [facility] Comment on above: Performed By: #### P TT, PT #### [facility] [address] [address] [address] Vangie Devine Urea nitrogen/Creatinine [Mass ratio] 15.8 mg/mg Normal [facility] Comment on above: Performed By: #### P TT, PT #### [facility] [address] [address] [address] Vangie Devine NM STRESS/REST MULTIon 10-31 NM STRESS/REST MULTI Patient: JAVIER LINK Exam Date: 10/31/2022 : 1970 Gender:F Ordering : DR DEENA BENTON M.D. Admission #: [id number] Family : Order #: [id number] CLICK HERE TO VIEW EXAM RADIOLOGY REPORT [...] M.D. on 10/31/2022 at 14:45 Normal [facility] FREE THYROXINE INDEX T7on FTI 4.83 Critically high 1.30-4.50 [facility] Comment on above: Performed By: #### C BC #### [facility] [address] [place], [place] [address] Dr. Vangie Devine T3U 35.0 % Normal 30.0-39.0 [facility] Comment on above: Performed By: #### C BC #### [facility] [address] [place], [place] [address] Dr. Vangie Devine T4 [Mass/Vol] 13.80 ug/dL Normal 4.80-13.90 [facility] Comment on above: Performed By: #### C BC #### [facility] [address] [place] [address] Dr. Vangie Devine TSHon 07-20-2022 TSH 0.051 uIU/mL Critically low 0.358-3.740 [facility] Comment on above: Performed By: #### C BC #### [facility] [address] [place] [address] Dr. Vangie Devine ACETONE SERUMon 06-03-2022 ACETONE Negative Normal NEGATIVE [facility] Comment on above: Performed By: #### C BCMAN #### [facility] [address] [place] [address] Dr. Vangie Devine CBC AUTO DIFFon 06-03-2022 BASO # 0.1 103/ul Normal 0.0-0.1 [facility] Comment on above: Performed By: #### C BCMAN #### [facility] [address] [place] [address] Dr. Vangie Devine Basophils/100 WBC (Bld) 0.6 % Normal 0.2-2.0 [facility] Comment on above: Performed By: #### C BCMAN #### [facility] [address] [place] [address] Dr. Vangie Devine EO # 0.3 103/ul Normal 0.0-0.7 [facility] Comment on above: Performed By: #### C BCMAN #### [facility] [address] [place] [address] Dr. Vangie Devine Eosinophils/100 WBC (Bld) 1.4 % Normal 0.9-7.0 [facility] Comment on above: Performed By: #### C BCMAN #### [facility] [address] [place] [address] Dr. Vangie Devine Erythrocyte distribution width (RBC) [Ratio] 13.2 % Normal 11.0-15.0 [facility] Comment on above: Performed By: #### C BCMAN #### [facility] [address] [place] [address] Dr. Vangie Devine Hematocrit (Bld) [Volume fraction] 44.8 % Normal 36.0-48.0 [facility] Comment on above: Performed By: #### C BCMAN #### [facility] [address] [address] [address] Vangie Devine Hemoglobin (Bld) [Mass/Vol] 15.0 g/dL Normal 12.0-16.0 [facility] Comment on above: Performed By: #### C BCHERIBERTO #### [facility] [address] [address] [address] Vangie Devine IG # 0.06 10e3/ul Critically high 0.00-0.03 [facility] Comment on above: Performed By: #### C BCHERIBERTO #### [facility] [address] [place] [address] Dr. Vangie Devine IG % 0.3 % Normal 0.0-0.5 [facility] Comment on above: Performed By: #### C JOBY #### [facility] [address] [place] [address] Dr. Vangie Devine LYMPH # 3.5 103/ul Normal 1.2-3.8 [facility] Comment on above: Performed By: #### C JOBY #### [facility] [address] [place] [address] Dr. Vangie Deivne Lymphocytes/100 WBC (Bld) 19.8 % Critically low 20.5-60.0 [facility] Comment on above: Performed By: #### C JOBY #### [facility] [address] [place] [address] Dr. Vangie Devine MANUAL DIFF REQ NO Normal [facility] Comment on above: Performed By: #### C BCHERIBERTO #### [facility] [address] [place] [address] Dr. Vangie Devine MCH (RBC) [Entitic mass] 31.1 pg Normal 26.7-34.0 [facility] Comment on above: Performed By: #### C BCHERIBERTO #### [facility] [address] [place] [address] Dr. Vangie Devine MCHC (RBC) [Mass/Vol] 33.5 g/dL Normal 29.9-35.2 [facility] Comment on above: Performed By: #### C JOBY #### [facility] [address] [address] [address] Vangie Devine MCV (RBC) [Entitic vol] 92.8 fL Normal 81.0-99.0 [facility] Comment on above: Performed By: #### C JANNETTEMAN #### [facility] [address] [place] [address] Dr. Vangie Devine MONO # 1.1 103/ul Critically high 0.3-0.8 [facility] Comment on above: Performed By: #### C JOBY #### [facility] [address] [place] [address] Dr. Vangie Devine Monocytes/100 WBC (Bld) 6.0 % Normal 1.7-12.0 [facility] Comment on above: Performed By: #### C JOBY #### [facility] [address] [place] [address] Dr. Vangie Devine NEUT # 12.6 103/ul Critically high 1.4-6.5 [facility] Comment on above: Performed By: #### C JOBY #### [facility] [address] [place] [address] Dr. Vangie Devine Neutrophils/100 WBC (Bld) 71.9 % Normal 43.0-75.0 [facility] Comment on above: Performed By: #### C JOBY #### [facility] [address] [place] [address] Dr. Vangie Devine Platelet mean volume (Bld) [Entitic vol] 11.0 fL Normal 9.5-13.5 [facility] Comment on above: Performed By: #### C JOBY #### [facility] [address] [place] [address] Dr. Vangie Devine PLT 179 103/ul Normal 150-450 [facility] Comment on above: Performed By: #### C JOBY #### [facility] [address] [place] [address] Dr. Vangie Devine RBC 4.83 106/ul Normal 4.20-5.40 [facility] Comment on above: Performed By: #### C JOBY #### [facility] [address] [place], [place] [address] Dr. Vangie Devine WBC 17.5 103/ul Critically high 4.0-11.0 [facility] Comment on above: Performed By: #### C JOBY #### [facility] [address] [place], [place] [address] HEAD WO CONon [...] MARY ROJAS Date: 2022-06-03 19:15 Normal [facility] CULTURE URINEon 06-03-2022 CULTURE URINE Culture Observations : NO GROWTH. Normal [facility] Comment on above: Performed By: #### P TT, PT #### [facility] [address] [place], [place] [address] Dr. Vangie Devine Covid-19 PCR ([facility])on 05-15 SARS-CoV-2 (COVID-19) RNA SAMIR+probe Ql (Unsp spec) Not detected Normal NOT DETECTED [facility] Comment on above: Result Comment: When diagnostic [...] for this test is supported by the [place] of Health and Human Service's declaration that [...] used). Performed By: #### C BCMAN #### [facility] [address] [place] [address] Dr. Vangie Devine ER URINE PROFILEon 2 Bilirubin Ql (U) Negative Normal NEGATIVE [facility] Comment on above: Performed By: #### C BC #### [facility] [address] [place] [address] Dr. Vangie Devine Clarity (U) CLEAR Normal CLEAR [facility] Comment on above: Performed By: #### C BC #### [facility] [address] [place] [address] Dr. Vangie Devine Color (U) LT. YELLOW Normal YELLOW [facility] Comment on above: Performed By: #### C BC #### [facility] [address] [place] [address] Dr. Vangie BHANDARITu A micrscopic examination will be performed if indicated. Normal [facility] Comment on above: Performed By: #### C BC #### [facility] [address] [place] [address] Dr. Vangie Devine Glucose Ql (U) 250 mg/dl Abnormal NEGATIVE [facility] Comment on above: Performed By: #### C BC #### [facility] [address] [place] [address] Dr. Vangie Devine Hemoglobin Ql (U) Negative Normal NEGATIVE [facility] Comment on above: Performed By: #### C BC #### [facility] [address] [place] [address] Dr. Vangie Devine Ketones Ql (U) Negative Normal NEGATIVE [facility] Comment on above: Performed By: #### C BC #### [facility] [address] [place] [address] Dr. Vangie Devine LEUKOCYTES Negative Normal NEGATIVE [facility] Comment on above: Performed By: #### C BC #### [facility] [address] [place] [address] Dr. Vangie Devine Nitrite Ql (U) Positive Abnormal NEGATIVE [facility] Comment on above: Performed By: #### C BC #### [facility] [address] [place] [address] Dr. Vangie Devine pH (U) 6.0 [pH] Normal 5-9 [facility] Comment on above: Performed By: #### C BC #### [facility] [address] [place] [address] Dr. Vangie Devine SPEC GRAVITY <=1.005 Abnormal 1.005-<=1.025 [facility] Comment on above: Performed By: #### C BC #### [facility] [address] [place] [address] Dr. Vangie Devine UA PROTEIN Negative Normal NEGATIVE/ TRACE [facility] Comment on above: Performed By: #### C BC #### [facility] [address] [place] [address] Dr. Vangie Devine UR MICRO IND INDICATED Normal [facility] Comment on above: Performed By: #### C BC #### [facility] [address] [place] [address] Dr. Vangie Devine Urobilinogen Qn (U) 0.2 {Jewel'U}/dL Normal 0.2 - 1. 0 [facility] Comment on above: Performed By: #### C BC #### [facility] [address] [place] [address] Dr. Vangie Devine FREE T3on 06-03-2022 FREE T3 2.42 pg/mlL Normal 2.18-3.98 [facility] Comment on above: Performed By: #### F T3 #### [facility] [address] [place] [address] Dr. Vangie Devine FREE T4on 06-03-2022 Free T4 [Mass/Vol] 1.93 ng/dL Critically high 0.76-1.46 [facility] Comment on above: Performed By: #### C BCMAN #### [facility] [address] [place] [address] Dr. Vangie Devine LACTATE/LACTIC ACIDon 2021 Lactate [Moles/Vol] 1.2 mmol/L Normal 0.4-1.9 [facility] Comment on above: Performed By: #### C JOBY #### [facility] [address] [place] [address] Dr. Vangie Devine PROF 14(COMP METB)on 022 Albumin [Mass/Vol] 3.9 g/dL Normal 3.4-5.0 [facility] Comment on above: Performed By: #### H STROPN, TSH, CMP #### [facility] [address] [place] [address] Dr. Vangie Devine Albumin/Globulin [Mass ratio] 0.9 {ratio} Normal [facility] Comment on above: Performed By: #### H STROPN, TSH, CMP #### [facility] [address] [place] [address] Dr. Vangie Devine ALP [Catalytic activity/Vol] 138 U/L Critically high 46-116 [facility] Comment on above: Performed By: #### H STROPN, TSH, CMP #### [facility] [address] [place] [address] Dr. Vangie Devine ALT [Catalytic activity/Vol] 24 U/L Normal 14-59 [facility] Comment on above: Performed By: #### H STROPN, TSH, CMP #### [facility] [address] [place] [address] Dr. Vangie Devine Anion gap [Moles/Vol] 11.4 mmol/L Normal [facility] Comment on above: Performed By: #### H STROPN, TSH, CMP #### [facility] [address] [address] [address] Vangie Devine AST [Catalytic activity/Vol] 23 U/L Normal 15-37 [facility] Comment on above: Performed By: #### H STROPN, TSH, CMP #### [facility] [address] [address] [address] Vangie Devine Bilirubin [Mass/Vol] 0.5 mg/dL Normal 0.2-1.0 [facility] Comment on above: Performed By: #### H STROPN, TSH, CMP #### [facility] [address] [address] [address] Vangie Devine Calcium [Mass/Vol] 9.5 mg/dL Normal 8.5-10.1 [facility] Comment on above: Performed By: #### H STROPN, TSH, CMP #### [facility] [address] [place] [address] Dr. Vangie Devine Chloride [Moles/Vol] 98 mmol/L Normal 98-107 [facility] Comment on above: Performed By: #### H STROPN, TSH, CMP #### [facility] [address] [address] [address] Vangie Devine CO2 [Moles/Vol] 25.3 mmol/L Normal 21.0-32.0 [facility] Comment on above: Performed By: #### H STROPN, TSH, CMP #### [facility] [address] [address] [address] Vangie Devine Creatinine [Mass/Vol] 0.90 mg/dL Normal 0.55-1.02 [facility] Comment on above: Performed By: #### H STROPN, TSH, CMP #### [facility] [address] [address] [address] Vangie Devine EGFR-AF MAURITIAN >60 Normal >=60 [facility] Comment on above: Performed By: #### H STROPN, TSH, CMP #### [facility] [address] [place] [address] Dr. Vangie Devine EGFR-NON AF MAURITIAN >60 Normal >=60 [facility] Comment on above: Performed By: #### H STROPN, TSH, CMP #### [facility] [address] [address] [address] Vangie Devine Globulin (S) [Mass/Vol] 4.2 g/dL Normal [facility] Comment on above: Performed By: #### H STROPN, TSH, CMP #### [facility] [address] [place] [address] Dr. Vangie Devine Glucose [Mass/Vol] 93 mg/dL Normal 74-106 [facility] Comment on above: Performed By: #### H STROPN, TSH, CMP #### [facility] [address] [place] [address] Dr. Vangie Devine Potassium [Moles/Vol] 3.7 mmol/L Normal 3.5-5.1 [facility] Comment on above: Performed By: #### H STROPN, TSH, CMP #### [facility] [address] [place] [address] Dr. Vangie Devine Protein [Mass/Vol] 8.1 g/dL Normal 6.4-8.2 [facility] Comment on above: Performed By: #### H STROPN, TSH, CMP #### [facility] [address] [place] [address] Dr. Vangie Devine Sodium [Moles/Vol] 131 mmol/L Critically low 136-145 [facility] Comment on above: Performed By: #### H STROPN, TSH, CMP #### [facility] [address] [place] [address] Dr. Vangie Devine Urea nitrogen [Mass/Vol] 14.0 mg/dL Normal 7.0-18.0 [facility] Comment on above: Performed By: #### H STROPN, TSH, CMP #### [facility] [address] [place] [address] Dr. Vangie Devine Urea nitrogen/Creatinine [Mass ratio] 15.6 mg/mg Normal [facility] Comment on above: Performed By: #### H STROPN, TSH, CMP #### [facility] [address] [place] [address] Dr. Vangie Devine PROTIMEon 06-03-2022 INR Coag (PPP) [Relative time] 1.06 {INR} Normal [facility] Comment on above: Performed By: #### C JOBY #### [facility] [address] [place] [address] Dr. Vangie Devine INR GUIDELINES SEE BELOW Normal [facility] Comment on above: Result Comment: MARY ANN RED INR: 2.0 - 3.0 CONDITIONS NOT LISTED BELOW 2.5 - 3.5 FOR PROSTHETIC HEART VALVE REPLACEMENT 2.5 - 3.5 RECURRENT THROMBOSIS Performed By: #### C JOBY #### [facility] [address] [place] [address] Dr. Vnagie Devine PT Coag (PPP) [Time] 11.4 s Normal 9.0-11.6 [facility] Comment on above: Performed By: #### C JOBY #### [facility] [address] [place] [address] Dr. Vangie Devine PTTon 06-03-2022 aPTT Coag (Bld) [Time] 31.3 s Normal 22.3-36.2 [facility] Comment on above: Performed By: #### C JOBY #### [facility] [address] [place] [address] Dr. Vangie Devine TROPONIN, HIGH SENSITIVITYon 06-03-2022 HSTROP 26.3 pg/mL Normal 4.0-51.3 [facility] Comment on above: Result Comment: CUT- OFF POINTS HAVE BEEN ESTABLISHED BASED ON THE FOURTH UNIVERSAL DEFINITIONS OF MYOCARDIAL INFARCTION. THE UPPER REFERENCE LIMIT (URL) OF TROPONIN, DEFINED THE 99TH PERCENTILE OF cTnI DISTRIBUTION IN A REFERENCE POPULATION, HAS BEEN CONFIRMED THE DECISION THRESHOLD FOR WA DIAGNOSIS. Performed By: #### P TT, PT #### [facility] [address] [place] [address] Dr. Vangie Devine TSHon 06-03-2022 TSH 0.150 uIU/mL Critically low 0.358-3.740 [facility] Comment on above: Performed By: #### P TT, PT #### [facility] [address] [place] [address] Dr. Vangie Devine URINE MICROSCOPIC ONLYon BACTERIA TRACE Abnormal NONE SEEN [facility] Comment on above: Performed By: #### C BC #### [facility] [address] [place] [address] Dr. Vangie Devine Bacteria identified Cx Nom (U) INDICATED Normal [facility] Comment on above: Result Comment: dory cated due to positive nitrite Performed By: #### C BC #### [facility] [address] [place] [address] Dr. Vangie Devine CAST NONE SEEN Normal NONE SEEN [facility] Comment on above: Performed By: #### C BC #### [facility] [address] [place] [address] Dr. Vangie Devine Crystals LM Nom (Urine sed) NONE SEEN Normal NONE SEEN [facility] Comment on above: Performed By: #### C BC #### [facility] [address] [place] [address] Dr. Vangie Devine Epithelial cells LM Ql (Urine sed) RARE Normal NONE SEEN /RARE [facility] Comment on above: Performed By: #### C BC #### [facility] [address] [place] [address] Dr. Vangie Devine MUCOUS NONE SEEN Normal NONE SEEN [facility] Comment on above: Performed By: #### C BC #### [facility] [address] [place] [address] Dr. Vangie Devine RBC 0-2 Normal 0-2 [facility] Comment on above: Performed By: #### C BC #### [facility] [address] [place] [address] Dr. Vangie Devine WBC 0-2 Abnormal NONE SEEN [facility] Comment on above: Performed By: #### C BC #### [facility] [address] [place] [address] Dr. Vangie Devine XR CHEST 1 Von [...] MARY ROJAS Date: 2022-06-03 19:25 Normal [facility] XR CHEST 2 Von 05-18-2022 XR CHEST [...] ANGEL SHAFFER Date: 2022-05-18 10:55 Normal [facility] Covid-19 PCR (CVDTB)on SARS-CoV-2 (COVID-19) RNA SAMIR+probe Ql (Unsp spec) Not detected Normal NOT DETECTED [facility] Comment on above: Result Comment: This test is not yet approved or cleared by the [place] FDA. When there are no FDA-approved or cleared tests available, and other criteria are met, FDA can make tests available under an emergency access mechanism called an Emergency Use Authorization (EUA). The EUA for this test is supported by the [place] of Health and Human Service's (HHS's) declaration [...] Performed By: #### P TT, PT #### [facility] [address] [place] [address] Dr. Vangie Devine CBC AUTO DIFFon 05-12-2022 BASO # 0.1 103/ul Normal 0.0-0.1 [facility] Comment on above: Performed By: #### C BC #### [facility] [address] [place] [address] Dr. Vangie Devine Basophils/100 WBC (Bld) 0.7 % Normal 0.2-2.0 [facility] Comment on above: Performed By: #### C BC #### [facility] [address] [place] [address] Dr. Vangie Devine EO # 0.2 103/ul Normal 0.0-0.7 [facility] Comment on above: Performed By: #### C BC #### [facility] [address] [place] [address] Dr. Vangie Devine Eosinophils/100 WBC (Bld) 2.1 % Normal 0.9-7.0 [facility] Comment on above: Performed By: #### C BC #### [facility] [address] [place] [address] Dr. Vangie Devine Erythrocyte distribution width (RBC) [Ratio] 13.1 % Normal 11.0-15.0 [facility] Comment on above: Performed By: #### C BC #### [facility] [address] [place] [address] Dr. Vangie Devine Hematocrit (Bld) [Volume fraction] 43.2 % Normal 36.0-48.0 [facility] Comment on above: Performed By: #### C BC #### [facility] [address] [place] [address] Dr. Vangie Devine Hemoglobin (Bld) [Mass/Vol] 14.2 g/dL Normal 12.0-16.0 [facility] Comment on above: Performed By: #### C BC #### [facility] [address] [place] [address] Dr. Vangie Devine IG # 0.02 10e3/ul Normal 0.00-0.03 [facility] Comment on above: Performed By: #### C BC #### [facility] [address] [place] [address] Dr. Vangie Devine IG % 0.2 % Normal 0.0-0.5 [facility] Comment on above: Performed By: #### C BC #### [facility] [address] [place] [address] Dr. Vangie Devine LYMPH # 1.9 103/ul Normal 1.2-3.8 [facility] Comment on above: Performed By: #### C BC #### [facility] [address] [place] [address] Dr. Vangie Devine Lymphocytes/100 WBC (Bld) 22.2 % Normal 20.5-60.0 [facility] Comment on above: Performed By: #### C BC #### [facility] [address] [place] [address] Dr. Vangie Devine MANUAL DIFF REQ NO Normal [facility] Comment on above: Performed By: #### C BC #### [facility] [address] [place] [address] Dr. Vangie Devine MCH (RBC) [Entitic mass] 30.5 pg Normal 26.7-34.0 [facility] Comment on above: Performed By: #### C BC #### [facility] [address] [place] [address] Dr. Vangie Devine MCHC (RBC) [Mass/Vol] 32.9 g/dL Normal 29.9-35.2 [facility] Comment on above: Performed By: #### C BC #### [facility] [address] [place] [address] Dr. Vangie Devine MCV (RBC) [Entitic vol] 92.7 fL Normal 81.0-99.0 [facility] Comment on above: Performed By: #### C BC #### [facility] [address] [place] [address] Dr. Vangie Devine MONO # 0.5 103/ul Normal 0.3-0.8 [facility] Comment on above: Performed By: #### C BC #### [facility] [address] [place] [address] Dr. Vangie Devine Monocytes/100 WBC (Bld) 6.0 % Normal 1.7-12.0 [facility] Comment on above: Performed By: #### C BC #### [facility] [address] [place] [address] Dr. Vangie Devine NEUT # 6.0 103/ul Normal 1.4-6.5 [facility] Comment on above: Performed By: #### C BC #### [facility] [address] [place] [address] Dr. Vangie Devine Neutrophils/100 WBC (Bld) 68.8 % Normal 43.0-75.0 [facility] Comment on above: Performed By: #### C BC #### [facility] [address] [place] [address] Dr. Vangie Devine Platelet mean volume (Bld) [Entitic vol] 11.7 fL Normal 9.5-13.5 [facility] Comment on above: Performed By: #### C BC #### [facility] [address] [place] [address] Dr. Vangie Devine PLT 176 103/ul Normal 150-450 [facility] Comment on above: Performed By: #### C BC #### [facility] [address] [place] [address] Dr. Vangie Devine RBC 4.66 106/ul Normal 4.20-5.40 [facility] Comment on above: Performed By: #### C BC #### [facility] [address] [place] [address] Dr. Vangie Devine WBC 8.7 103/ul Normal 4.0-11.0 [facility] Comment on above: Performed By: #### C BC #### [facility] [address] [address] [address] Vangie Devine PROF CHEM 8 (BAS METB)on Anion gap [Moles/Vol] 13.9 mmol/L Normal [facility] Comment on above: Performed By: #### C BC #### [facility] [address] [place] [address] Dr. Vangie Devine Calcium [Mass/Vol] 9.2 mg/dL Normal 8.5-10.1 [facility] Comment on above: Performed By: #### C BC #### [facility] [address] [place] [address] Dr. Vangie Devine Chloride [Moles/Vol] 101 mmol/L Normal 98-107 [facility] Comment on above: Performed By: #### C BC #### [facility] [address] [place] [address] Dr. Vangie Devine CO2 [Moles/Vol] 24.2 mmol/L Normal 21.0-32.0 [facility] Comment on above: Performed By: #### C BC #### [facility] [address] [place] [address] Dr. Vangie Devine Creatinine [Mass/Vol] 0.87 mg/dL Normal 0.55-1.02 [facility] Comment on above: Performed By: #### C BC #### [facility] [address] [place] [address] Dr. Vangie Devine EGFR-AF MAURITIAN >60 Normal >=60 [facility] Comment on above: Performed By: #### C BC #### [facility] [address] [place] [address] Dr. Vangie Devine EGFR-NON AF MAURITIAN >60 Normal >=60 [facility] Comment on above: Performed By: #### C BC #### [facility] [address] [place] [address] Dr. Vangie Devine Glucose [Mass/Vol] 89 mg/dL Normal 74-106 [facility] Comment on above: Performed By: #### C BC #### [facility] [address] [address] [address] Vangie Devine Potassium [Moles/Vol] 4.1 mmol/L Normal 3.5-5.1 [facility] Comment on above: Performed By: #### C BC #### [facility] [address] [place] [address] Dr. Vangie Devine Sodium [Moles/Vol] 135 mmol/L Critically low 136-145 [facility] Comment on above: Performed By: #### C BC #### [facility] [address] [place] [address] Dr. Vangie Devine Urea nitrogen [Mass/Vol] 9.0 mg/dL Normal 7.0-18.0 [facility] Comment on above: Performed By: #### C BC #### [facility] [address] [place] [address] Dr. Vangie Devine Urea nitrogen/Creatinine [Mass ratio] 10.3 mg/mg Normal [facility] Comment on above: Performed By: #### C BC #### [facility] [address] [place] [address] Dr. Vangie Devine PROTIMEon 05-12-2022 INR Coag (PPP) [Relative time] 1.96 {INR} Normal [facility] Comment on above: Performed By: #### P T #### [facility] [address] [place] [address] Dr. Vangie Devine INR GUIDELINES SEE BELOW Normal [facility] Comment on above: Result Comment: MARY ANN RED INR: 2.0 - 3.0 CONDITIONS NOT LISTED BELOW 2.5 - 3.5 FOR PROSTHETIC HEART VALVE REPLACEMENT 2.5 - 3.5 RECURRENT THROMBOSIS Performed By: #### P T #### [facility] [address] [place] [address] Dr. Vangie Devine PT Coag (PPP) [Time] 20.3 s Critically high 9.0-11.6 [facility] Comment on above: Performed By: #### P T #### [facility] [address] [place] [address] Dr. Vangie Devine T4, T3U, FTI LABCORPon 05-07 Free Thyroxine Index 4.7 Normal 1.2-4.9 [facility] Comment on above: Performed By: #### T HYLC #### [facility] [address] [place] [address] Dr. Vangie Devine T3 Uptake 34 % Normal 24-39 [facility] Comment on above: Performed By: #### T HYLC #### [facility] [address] [place] [address] Dr. Vangie Devine T4 [Mass/Vol] 13.8 ug/dL Critically high 4.5-12.0 [facility] Comment on above: Performed By: #### T HYLC #### [facility] [address] [place] [address] Dr. Vangie Devine TSHon 05-06-2022 TSH 0.063 uIU/mL Critically low 0.358-3.740 [facility] Comment on above: Performed By: #### T SH #### [facility] [address] [place] [address] Dr. Vangie Devine ECHOCARDIO M/2D COMPLETEon 0 03-31-2022 ECHOCARDIO M/2D COMPLETE Patient: JAVIER LNIK Exam Date: 03/31/2022 : 1970 Gender:F Ordering : DR DEENA BENTON M.D. Admission #: [id number] Family : Order #: [id number] CLICK HERE TO VIEW EXAM ECHOCARDIOGRAM REPORT [...] M.D. on 03/31/2022 at 18:35 Normal [facility] CBC AUTO DIFFon 03-28-2022 BASO # 0.1 103/ul Normal 0.0-0.1 [facility] Comment on above: Performed By: #### C BC #### [facility] [address] [place] [address] Dr. Vangie Devine Basophils/100 WBC (Bld) 0.6 % Normal 0.2-2.0 [facility] Comment on above: Performed By: #### C BC #### [facility] [address] [address] [address] Vangie Devine EO # 0.2 103/ul Normal 0.0-0.7 [facility] Comment on above: Performed By: #### C BC #### [facility] [address] [address] [address] Vangie Devine Eosinophils/100 WBC (Bld) 2.0 % Normal 0.9-7.0 [facility] Comment on above: Performed By: #### C BC #### [facility] [address] [address] [address] Vangie Devine Erythrocyte distribution width (RBC) [Ratio] 12.7 % Normal 11.0-15.0 [facility] Comment on above: Performed By: #### C BC #### [facility] [address] [place] [address] Dr. Vangie Devine Hematocrit (Bld) [Volume fraction] 42.6 % Normal 36.0-48.0 [facility] Comment on above: Performed By: #### C BC #### [facility] [address] [place] [address] Dr. Vangie Devine Hemoglobin (Bld) [Mass/Vol] 13.9 g/dL Normal 12.0-16.0 [facility] Comment on above: Performed By: #### C BC #### [facility] [address] [place] [address] Dr. Vangie Devine IG # 0.03 10e3/ul Normal 0.00-0.03 [facility] Comment on above: Performed By: #### C BC #### [facility] [address] [place] [address] Dr. Vangie Devine IG % 0.4 % Normal 0.0-0.5 [facility] Comment on above: Performed By: #### C BC #### [facility] [address] [place] [address] Dr. Vangie Devine LYMPH # 2.3 103/ul Normal 1.2-3.8 [facility] Comment on above: Performed By: #### C BC #### [facility] [address] [place] [address] Dr. Vangie Devine Lymphocytes/100 WBC (Bld) 28.7 % Normal 20.5-60.0 [facility] Comment on above: Performed By: #### C BC #### [facility] [address] [place] [address] Dr. Vangie Devine MANUAL DIFF REQ NO Normal [facility] Comment on above: Performed By: #### C BC #### [facility] [address] [place] [address] Dr. Vangie Devine MCH (RBC) [Entitic mass] 31.0 pg Normal 26.7-34.0 [facility] Comment on above: Performed By: #### C BC #### [facility] [address] [address] [address] Vangie Devine MCHC (RBC) [Mass/Vol] 32.6 g/dL Normal 29.9-35.2 [facility] Comment on above: Performed By: #### C BC #### [facility] [address] [address] [address] Vangie Devine MCV (RBC) [Entitic vol] 95.1 fL Normal 81.0-99.0 [facility] Comment on above: Performed By: #### C BC #### [facility] [address] [address] [address] Vangie Devine MONO # 0.5 103/ul Normal 0.3-0.8 [facility] Comment on above: Performed By: #### C BC #### [facility] [address] [place] [address] Dr. Vangie Devine Monocytes/100 WBC (Bld) 6.8 % Normal 1.7-12.0 [facility] Comment on above: Performed By: #### C BC #### [facility] [address] [place] [address] Dr. Vangie Devine NEUT # 4.9 103/ul Normal 1.4-6.5 [facility] Comment on above: Performed By: #### C BC #### [facility] [address] [place] [address] Dr. Vangie Devine Neutrophils/100 WBC (Bld) 61.5 % Normal 43.0-75.0 [facility] Comment on above: Performed By: #### C BC #### [facility] [address] [place] [address] Dr. Vangie Devine Platelet mean volume (Bld) [Entitic vol] 11.0 fL Normal 9.5-13.5 [facility] Comment on above: Performed By: #### C BC #### [facility] [address] [place] [address] Dr. Vangie Devine PLT 224 103/ul Normal 150-450 [facility] Comment on above: Performed By: #### C BC #### [facility] [address] [address] [address] Vangie Devine RBC 4.48 106/ul Normal 4.20-5.40 [facility] Comment on above: Performed By: #### C BC #### [facility] [address] [address] [address] Vangie Devine WBC 7.9 103/ul Normal 4.0-11.0 [facility] Comment on above: Performed By: #### C BC #### [facility] [address] [place] [address] Dr. Vangie Devine LIPID PROFILEon 03-28-2022 CHOL-HDL RATIO NORM SEE BELOW Normal [facility] Comment on above: Result Comment: 3.3 - 4.4 LOW RISK 4.4 - 7.1 AVERAGE RISK 7.1 - 11.0 MODERATE RISK >11.0 HIGH RISK Performed By: #### C BC #### [facility] [address] [place] [address] Dr. Vangie Devine Cholesterol [Mass/Vol] 103 mg/dL Normal <=200 [facility] Comment on above: Performed By: #### C BC #### [facility] [address] [place] [address] Dr. Vangie Devine Cholesterol in HDL [Mass/Vol] 39 mg/dL Critically low 40-60 [facility] Comment on above: Performed By: #### C BC #### [facility] [address] [place] [address] Dr. Vangie Devine Cholesterol in LDL [Mass/Vol] 46.8 mg/dL Normal [facility] Comment on above: Performed By: #### C BC #### [facility] [address] [place] [address] Dr. Vangie Devine Cholesterol.total/Chol esterol in HDL [Mass ratio] 2.6 {ratio} Normal [facility] Comment on above: Performed By: #### C BC #### [facility] [address] [place] [address] Dr. Vangie Devine HDL NORMAL > or = 60 mg/dl - LO W CARDIOVASCULAR RISK <40 mg/dl - HIGH CARDIOVASCULAR RISK Normal [facility] Comment on above: Performed By: #### C BC #### [facility] [address] [place] [address] Dr. Vangie Devine LDL CALC NORMAL SEE BELOW Normal [facility] Comment on above: Result Comment: <100 mg/dl OPTIMAL 100 - 129 mg/dl NEAR OR ABOVE OPTIMAL 130 - 159 mg/dl BORDERLINE HIGH 160 - 189 mg/dl HIGH >190 mg/dl VERY HIGH Performed By: #### C BC #### [facility] [address] [place] [address] Dr. Vangie Devine Triglyceride [Mass/Vol] 86 mg/dL Normal <=150 [facility] Comment on above: Performed By: #### C BC #### [facility] [address] [place] [address] Dr. Vangie Devine VLDL CALC 17.2 mg/dL Normal [facility] Comment on above: Performed By: #### C BC #### [facility] [address] [place] [address] Dr. Vangie Devine PROF 14(COMP METB)on 022 Albumin [Mass/Vol] 3.5 g/dL Normal 3.4-5.0 [facility] Comment on above: Performed By: #### C BC #### [facility] [address] [place] [address] Dr. Vangie Devine Albumin/Globulin [Mass ratio] 0.9 {ratio} Normal [facility] Comment on above: Performed By: #### C BC #### [facility] [address] [place] [address] Dr. Vangie Devine ALP [Catalytic activity/Vol] 127 U/L Critically high 46-116 [facility] Comment on above: Performed By: #### C BC #### [facility] [address] [place] [address] Dr. Vangie Devine ALT [Catalytic activity/Vol] 29 U/L Normal 14-59 [facility] Comment on above: Performed By: #### C BC #### [facility] [address] [place] [address] Dr. Vangie Devine Anion gap [Moles/Vol] 15.3 mmol/L Normal Th [facility] Comment on above: Performed By: #### C BC #### [facility] [address] [place] [address] Dr. Vangie Devine AST [Catalytic activity/Vol] 21 U/L Normal 15-37 [facility] Comment on above: Performed By: #### C BC #### [facility] [address] [place] [address] Dr. Vangie Devnie Bilirubin [Mass/Vol] 0.5 mg/dL Normal 0.2-1.0 [facility] Comment on above: Performed By: #### C BC #### [facility] [address] [place] [address] Dr. Vangie Devine Calcium [Mass/Vol] 8.9 mg/dL Normal 8.5-10.1 [facility] Comment on above: Performed By: #### C BC #### [facility] [address] [place] [address] Dr. Vangie Devine Chloride [Moles/Vol] 101 mmol/L Normal 98-107 [facility] Comment on above: Performed By: #### C BC #### [facility] [address] [place] [address] Dr. Vangie Devine CO2 [Moles/Vol] 25.8 mmol/L Normal 21.0-32.0 [facility] Comment on above: Performed By: #### C BC #### [facility] [address] [place] [address] Dr. Vangie Devine Creatinine [Mass/Vol] 0.89 mg/dL Normal 0.55-1.02 [facility] Comment on above: Performed By: #### C BC #### [facility] [address] [place] [address] Dr. Vangie Devine EGFR-AF MAURITIAN >60 Normal >=60 [facility] Comment on above: Performed By: #### C BC #### [facility] [address] [place] [address] Dr. Vangie Devine EGFR-NON AF MAURITIAN >60 Normal >=60 [facility] Comment on above: Performed By: #### C BC #### [facility] [address] [address] [address] Vangie Devine Globulin (S) [Mass/Vol] 4.1 g/dL Normal [facility] Comment on above: Performed By: #### C BC #### [facility] [address] [address] [address] Vangie Devine Glucose [Mass/Vol] 94 mg/dL Normal 74-106 [facility] Comment on above: Performed By: #### C BC #### [facility] [address] [address] [address] Vangie Devine Potassium [Moles/Vol] 5.1 mmol/L Normal 3.5-5.1 [facility] Comment on above: Performed By: #### C BC #### [facility] [address] [place] [address] Dr. Vangie Devine Protein [Mass/Vol] 7.6 g/dL Normal 6.4-8.2 [facility] Comment on above: Performed By: #### C BC #### [facility] [address] [place] [address] Dr. Vangie Devine Sodium [Moles/Vol] 137 mmol/L Normal 136-145 [facility] Comment on above: Performed By: #### C BC #### [facility] [address] [place] [address] Dr. Vangie Devine Urea nitrogen [Mass/Vol] 9.0 mg/dL Normal 7.0-18.0 [facility] Comment on above: Performed By: #### C BC #### [facility] [address] [place] [address] Dr. Vangie Devine Urea nitrogen/Creatinine [Mass ratio] 10.1 mg/mg Normal [facility] Comment on above: Performed By: #### C BC #### [facility] [address] [place] [address] Dr. Vangie Devine Cardiac Stress Teston 2021 Cardiac Stress Test [address], [address], [place] [address] Exercise Stress Test Patient Name: JAVIER Ordering Physician: [id number] Nolan Garibay [place] [facility] [place]: 01/26/2022 Reading Physician: [id number] Myke Levin MD MRN/PID: [id number] Supervising [id number] Myke Levin Physician: Accession/Order#: [id number] Referring Physician: [id number] NOLAN GARIBAY Date of : 1970 PCP: Gender: F Fellow: Height: 147.32 cm Nurse: Joe Elmore RN Weight: 84.37 kg Architectural Inspector: ADE BSA: 1.77 m2 Technologist: BMI: 38.87 kg/m2 Additional Staff: Age: 52 years cc report to: Patient Location: cc report to: Marleen Garibay DO Study Type: Cardiac Stress Test Diagnosis/ICD: I21.09-ST elevation (STEMI) myocardial infarction involving other coronary artery of anterior wall; I51.3-Intracardiac thrombosis, not elsewhere classified Indication: [place] Procedure/CPT: Stress Test Interpretation-19957; Stress Test Supervision-[id number] Falls Risk: Low: Patient has low risk [...] The adequate level of stress was achieved. [id number] Myke Levin MD Electronically signed on 01/26/2022 at 5:41:45 PM Final Normal [facility] Cardiac Stress Test MP-No [facility] y 250 DO Work Phone: Tobacco Screening.on 022 Adult depression screening assessment Yes [facility] syed Heart-Sandusk y 250 DO Work Phone: Adult depression screening assessment No [facility] Heart-Hodan[place] y 250 DO Work Phone: Fall risk assessment c) Not medically indicated [facility] HeartElsie y 250 DO Work Phone: Tobacco use status CP b) No [facility]-Jackelyn y 250 DO Work Phone: Tobacco Screening. 0-Not at all [facility] Heart-Jackelyn y 250 DO Work Phone: Tobacco Screening. 1-Several days [facility] HeartElsie hurtado 250 DO Work Phone: Tobacco Screening. 2-More than half the days [facility] HeartElsie y 250 DO Work Phone: Tobacco Screening. Not difficult at all [facility] HeartElsie y 250 DO Work Phone: Laboratory - Coagulationon 0 01-17-2022 INR Coag (Bld) [Relative time] 1.56 {INR} [facility] HeartElsie hurtado 250 DO Work Phone: PROTIMEon 01-17-2022 INR Coag (PPP) [Relative time] 1.56 {INR} Normal [facility] Comment on above: Performed By: #### C JOBY #### [facility] [address] [place] [address] Dr. Vangie Devine INR GUIDELINES SEE BELOW Normal [facility] Comment on above: Result Comment: MARY ANN RED INR: 2.0 - 3.0 CONDITIONS NOT LISTED BELOW 2.5 - 3.5 FOR PROSTHETIC HEART VALVE REPLACEMENT 2.5 - 3.5 RECURRENT THROMBOSIS Performed By: #### C JOBY #### [facility] [address] [place] [address] Dr. Vangie Devine PT Coag (PPP) [Time] 16.4 s Critically high 9.0-11.6 [facility] Comment on above: Performed By: #### C [facility] #### [facility] [address] [address] [address] Vangie Devine Activated partial thrombopla stin time (aPTT) in platelet poor plasma by coagulation aOrdered By: Isidra Garibay on 01-14-2022 aPTT Coag (PPP) [Time] 34.5 s 25.1-36.5 [facility] Creatinine and Glomerular fi ltration rate.predicted panel (S/P/Bld)Ordered By: Isidra Garibay on 01-14-2022 Creatinine [Mass/Vol] 0.69 mg/dL 0.44-1.03 [facility] Estimated glomerular filtrat ion rate (GFR) non- AmericanOrdered By: Isidra Garibay on 01-14-2022 GFR/1.73 sq M.predicted among non-blacks MDRD (S/P/Bld) [Vol rate/Area] > 60 mL/Min [facility] - CoagulationOrde red By: Isidra Garibay on 01-14-2022 PT Coag (PPP) [Time] 17.7 s 9.0-12.9 [facility] No Panel InformationOrdered By: Isidra Garibay on 01-14-2022 Estimated GFR () > 60 mL/Min [facility] Comment on above: GFR estimated refere nce range: According to KDOQI guidelines, <60 ml/min/1.73m2 is sufficient to diagnose a patient with chronic kidney disease. Pharmacy Creatinine Clearance (Chem 94.39 [facility] Platelet poor plasma interna tional normalized ratio (INR) by coagulation assay (relatOrdered By: Isidra Garibay on 01-14-2022 INR Coag (PPP) [Relative time] 1.6 {INR} [facility] Comment on above: INR Therapeutic [...] on 01-14-2022 Calcium [Mass/Vol] 8.5 mg/dL 8.2-10.2 [facility] Serum or plasma chloride francesca surement (moles/volume)Ordered By: Isidra Garibay on 01-14-2022 Chloride [Moles/Vol] 99 mmol/L 95-114 [facility] Serum or plasma glucose ivana urement (mass/volume)Ordered By: Isidra Garibay on 01-14-2022 Glucose [Mass/Vol] 101 mg/dL 70-100 [facility] Comment on above: ADA recommended refe rence range Random Glucose Reference Range is dependent on time and content of last meal. Glucose of more than 200 mg/dL in a nonstressed, ambulatory subject supports the diagnosis of Diabetes Mellitus. Serum or plasma potassium me asurement (moles/volume)Ordered By: Isidra Garibay on 01-14-2022 Potassium [Moles/Vol] 4.2 mmol/L 3.5-5.1 [facility] Serum or plasma sodium measu rement (moles/volume)Ordered By: Isidra Garibay on 01-14-2022 Sodium [Moles/Vol] 129 mmol/L 136-146 [facility] Serum or plasma total carbon dioxide measurement (moles/volume)Ordered By: Isidra Garibay on 01-14-2022 CO2 [Moles/Vol] 21.8 mmol/L 22.0-30.0 [facility] Serum or plasma urea nitroge n measurement (mass/volume)Ordered By: Isidra Garibay on 01-14-2022 Urea nitrogen [Mass/Vol] 8 mg/dL 9-23 [facility] Albumin [Mass/volume] in Ser um or PlasmaOrdered By: Isidra Garibay on 01-11-2022 Albumin [Mass/Vol] 2.9 g/dL 3.2-5.5 [facility] Cholesterol [Mass/volume] in Serum or PlasmaOrdered By: Isidra Garibay on 01-11-2022 Cholesterol [Mass/Vol] 109 mg/dL 140-200 [facility] Comment on above: Chol less than 200 m g/dl low risk Chol 201-239 mg/dl borderline risk Chol 240 mg/dl and greater high risk Cholesterol in LDL Calc [Mas s/Vol]Ordered By: Isidra Garibay on 01-11-2022 Cholesterol in LDL [Mass/Vol] 49 mg/dL 0-100 [facility] Comment on above: LDL ATP III CLASSIFI CATION LDL less than 100 mg/dL Optimal LDL 100-129 mg/dL Near or above optimal LDL 130-159 mg/dL Borderline high LDL 160-189 mg/dL High LDL greater than 189 mg/dL Very high Cholesterol in VLDL Calc [Ma ss/Vol]Ordered By: Isidra Garibay on 01-11-2022 Cholesterol in VLDL [Mass/Vol] 16 mg/dL [facility] Globulin Calc (S) [Mass/Vol] Ordered By: Isidra Garibay on 01-11-2022 Globulin (S) [Mass/Vol] 3.1 g/dL [facility] Glucose Glucometer (BldC) [M ass/Vol]Ordered By: Isidra Garibay on 01-11-2022 Glucose [Mass/Vol] 118 mg/dL [facility] Comment on above: Random Glucose Refer ence Range is dependent on time and content of last meal. Glucose of more than 200 mg/dL in a nonstressed, ambulatory subject supports the diagnosis of Diabetes Mellitus. No Panel InformationOrdered By: Isidra Garibay on 01-11-2022 Bedside Glucose Comment Glu2: cleaned meter [facility] Protein [Mass/volume] in Ser um or PlasmaOrdered By: Isidra Garibay on 01-11-2022 Protein [Mass/Vol] 6.0 g/dL 6.1-7.9 [facility] Serum or plasma alanine gore otransferase measurement without P-5'-P (enzymatic activiOrdered By: Isidra Garibay on 01-11-2022 ALT No additional P-5'-P [Catalytic activity/Vol] 58 U/L 10-60 [facility] Serum or plasma albumin/glob ulin mass ratioOrdered By: Isidra Garibay on 01-11-2022 Albumin/Globulin [Mass ratio] 0.9 {ratio} [facility] Serum or plasma alkaline carl sphatase measurement (enzymatic activity/volume)Ordered By: Isidra Garibay on 01-11-2022 ALP [Catalytic activity/Vol] 85 U/L 32-92 [facility] Serum or plasma aspartate am inotransferase measurement (enzymatic activity/volume)Ordered By: Isidra Garibay on 01-11-2022 AST [Catalytic activity/Vol] 212 U/L 10-42 [facility] Serum or plasma high density lipoprotein (HDL) cholesterol measurementOrdered By: Isidra Garibay on 01-11-2022 Cholesterol in HDL [Mass/Vol] 43 mg/dL 35-85 [facility] Comment on above: HDL CHOL ATP-III CLA SSIFICATION Cardiovascular Risk HDL > or equal to 60 mg/dL LOW HDL < 40 mg/dL HIGH Serum or plasma total biliru bin measurement (mass/volume)Ordered By: Isidra Garibay on 01-11-2022 Bilirubin [Mass/Vol] 0.6 mg/dL 0.3-1.2 [facility] Serum or plasma total choles terol/high density lipoprotein (HDL) cholesterol mass ratOrdered By: Isidra Garibay on 01-11-2022 Cholesterol.total/Chol esterol in HDL [Mass ratio] 2.5 {ratio} [facility] Triglyceride [Mass/volume] i n Serum or PlasmaOrdered By: Isidra Garibay on 01-11-2022 Triglyceride [Mass/Vol] 83 mg/dL 35-149 [facility] Comment on above: TRIG ATP [...] 01-11-2022 Troponin I.cardiac High sensitivity method [Mass/Vol] 08779 pg/mL 0-15 [facility] Comment on above: Results called at 0805 on 01/11/22 AMYLASEon 01-10-2022 Amylase [Catalytic activity/Vol] 37 U/L Normal 25-115 [facility] Comment on above: Performed By: #### C BC #### [facility] [address] [place] [address] Dr. Vangie Devine CARDIAC CHASTITY ADMITon 022 CK [Catalytic activity/Vol] 206 U/L Critically high 26-192 [facility] Comment on above: Performed By: #### C BC #### [facility] [address] [place] [address] Dr. Vangie Devine CK.MB [Mass/Vol] 3.65 ng/mL Critically high <=3.60 [facility] Comment on above: Performed By: #### C BC #### [facility] [address] [place] [address] Dr. Vangie Devine HSTROP 80.4 pg/mL Critically high 4.0-51.3 [facility] Comment on above: Result Comment: CUT- OFF POINTS HAVE BEEN ESTABLISHED BASED ON THE FOURTH UNIVERSAL DEFINITIONS OF MYOCARDIAL INFARCTION. THE UPPER REFERENCE LIMIT (URL) OF TROPONIN, DEFINED THE 99TH PERCENTILE OF cTnI DISTRIBUTION IN A REFERENCE POPULATION, HAS BEEN CONFIRMED THE DECISION THRESHOLD FOR [place] DIAGNOSIS. Performed By: #### C BC #### [facility] [address] [place] [address] Dr. Vangie Devine AJ 119 ng/mL Critically high 9-82 [facility] Comment on above: Performed By: #### C BC #### [facility] [address] [place] [address] Dr. Vangie Devine CBC W MANUAL DIFFon 01-11-20 22 ATYPICAL LYMPH # 0.93 103/ul Normal [facility] Comment on above: Performed By: #### C BCMAN #### [facility] [address] [place] [address] Dr. Vangie Devine ATYPICAL LYMPH % 3 % Normal [facility] Comment on above: Performed By: #### C BCMAN #### [facility] [address] [place] [address] Dr. Vangie Devine BAND # 1.6 103/ul Critically high 0.0-0.3 [facility] Comment on above: Performed By: #### C BCMAN #### [facility] [address] [place] [address] Dr. Vangie Devine BAND % 5 % Normal 0-5 [facility] Comment on above: Performed By: #### C BCHERIBERTO #### [facility] [address] [place] [address] Dr. Vangie Devine BASOM # 0.00 103/ul Normal 0.00-0.10 [facility] Comment on above: Performed By: #### C BCHERIBERTO #### [facility] [address] [place] [address] Dr. Vangie Devine BASOM % 0.0 % Critically low 0.2-2.0 [facility] Comment on above: Performed By: #### C BCHERIBERTO #### [facility] [address] [place] [address] Dr. Vangie Devine BLAST # 0.0 103/ul Normal [facility] Comment on above: Performed By: #### C JOBY #### [facility] [address] [place] [address] Dr. Vangie Devine BLAST % Normal [facility] Comment on above: Performed By: #### C BCHERIBERTO #### [facility] [address] [place] [address] Dr. Vangie Devine CORRECTED WBC Normal 4.0-11.0 [facility] Comment on above: Performed By: #### C JOBY #### [facility] [address] [place] [address] Dr. Vangie Devine EOS # 0.00 103/ul Normal 0.00-0.70 [facility] Comment on above: Performed By: #### C BCHERIBERTO #### [facility] [address] [place] [address] Dr. Vangie Devine EOS% 0.0 % Critically low 0.9-7.0 [facility] Comment on above: Performed By: #### C BCHERIBERTO #### [facility] [address] [place] [address] Dr. Vangie Devine HCT 42.0 % Normal 36.0-48.0 [facility] Comment on above: Performed By: #### C JOBY #### [facility] [address] [place] [address] Dr. Vangie Devine HGB 14.6 g/dl Normal 12.0-16.0 [facility] Comment on above: Performed By: #### C BCMAN #### [facility] [address] [address] [address] Vangie Devine HYPERSEG NEUT 1+ Normal [facility] Comment on above: Performed By: #### C JOBY #### [facility] [address] [address] [address] Vangie Devine LYMPHM # 4.03 103/ul Critically high 1.20-3.80 [facility] Comment on above: Performed By: #### C JOBY #### [facility] [address] [place] [address] Dr. Vangie Devine LYMPHM% 13.0 % Critically low 20.5-60.0 [facility] Comment on above: Performed By: #### C JOBY #### [facility] [address] [place] [address] Dr. Vangie Devine MCH 32.7 pg Normal 26.7-34.0 [facility] Comment on above: Performed By: #### C JOBY #### [facility] [address] [place] [address] Dr. Vangie Devine MCHC 34.8 g/dl Normal 29.9-35.2 [facility] Comment on above: Performed By: #### C JOBY #### [facility] [address] [address] [address] Vangie Devine MCV 94.2 fL Normal 81.0-99.0 [facility] Comment on above: Performed By: #### C BCHERIBERTO #### [facility] [address] [place] [address] Dr. Vangie Devine METAMYELOCYTE # 1.2 103/ul Normal [facility] Comment on above: Performed By: #### C BCHERIBERTO #### [facility] [address] [address] [address] Vangie Devine METAMYELOCYTE % 4 % Normal [facility] Comment on above: Performed By: #### C JOBY #### [facility] [address] [address] [address] Vangie Devine MONOM# 0.93 103/ul Critically high 0.30-0.80 [facility] Comment on above: Performed By: #### Baldemar HEMPHILL #### [facility] [address] [address] [address] Vangie Devine MONOM% 3.0 % Normal 1.7-12.0 [facility] Comment on above: Performed By: #### Baldemar HEMPHILL #### [facility] [address] [place] [address] Dr. Vangie Devine MPV 10.4 fL Normal 9.5-13.5 [facility] Comment on above: Performed By: #### Baldemar HEMPHILL #### [facility] [address] [place] [address] Dr. Vangie Devine MYELOCYTE # 0.9 103/ul Normal [facility] Comment on above: Performed By: #### Baldemar HEMPHILL #### [facility] [address] [address] [address] Vangie Devine MYELOCYTE % 3 % Normal [facility] Comment on above: Performed By: #### Baldemar HEMPHILL #### [facility] [address] [place] [address] Dr. Vangie Devine NRBC 0 Normal [facility] Comment on above: Performed By: #### Baldemar HEMPHILL #### [facility] [address] [place] [address] Dr. Vangie Devine PLT 460 103/ul Critically high 150-450 [facility] Comment on above: Performed By: #### Baldemar HEMPHILL #### [facility] [address] [place] [address] Dr. Vangie Devine RBC 4.46 106/ul Normal 4.20-5.40 The [facility] Comment on above: Performed By: #### Baldemar HEMPHILL #### [facility] [address] [place] [address] Dr. Vangie Devine RDW 12.6 % Normal 11.0-15.0 [facility] Comment on above: Performed By: #### Baldemar HEMPHILL #### [facility] [address] [address] [address] Vangie Devine SEG # 21.39 103/ul Critically high 1.40-6.50 The [facility] Comment on above: Performed By: #### Baldemar HEMPHILL #### [facility] [address] [address] [address] Vangie Devine SEG % 69.0 % Normal 43.0-75.0 [facility] Comment on above: Performed By: #### C JOBY #### [facility] [address] [address] [address] Vangie Devine WBC 31.0 103/ul Critically high 4.0-11.0 The [facility] Comment on above: Performed By: #### Baldemar HEMPHILL #### [facility] [address] [place] [address] Dr. Vangie Devine Covid-19 PCR ([facility])on 12-14 SARS-CoV-2 (COVID-19) RNA SAMIR+probe Ql (Unsp spec) Not detected Normal NOT DETECTED [facility] Comment on above: Result Comment: When diagnostic [...] for this test is supported by the [place] of Health and Human Service's declaration that [...] used). Performed By: #### Baldemar HEMPHILL #### [facility] [address] [address] [address] Vangie Devine LIPASEon 01-10-2022 Lipase [Catalytic activity/Vol] 63.0 U/L Critically low 73.0-393.0 [facility] Comment on above: Performed By: #### C BCMAN #### [facility] [address] [place] [address] Dr. Vangie Devine Laboratory - Chemistry and C hemistry - challengeOrdered By: Isidra Garibay on 01-10-2022 Magnesium [Mass/Vol] 2.0 mg/dL 1.6-2.6 [facility] PROTIMEon 01-10-2022 INR Coag (PPP) [Relative time] 1.01 {INR} Normal [facility] Comment on above: Performed By: #### P TT, PT #### [facility] [address] [place] [address] Dr. Vangie Devine INR GUIDELINES SEE BELOW Normal [facility] Comment on above: Result Comment: MARY ANN RED INR: 2.0 - 3.0 CONDITIONS NOT LISTED BELOW 2.5 - 3.5 FOR PROSTHETIC HEART VALVE REPLACEMENT 2.5 - 3.5 RECURRENT THROMBOSIS Performed By: #### P TT, PT #### [facility] [address] [place] [address] Dr. Vangie Devine PT Coag (PPP) [Time] 10.9 s Normal 9.0-11.6 [facility] Comment on above: Performed By: #### P TT, PT #### [facility] [address] [place] [address] Dr. Vangie Devine PTTon 01-10-2022 aPTT Coag (Bld) [Time] 26.3 s Normal 22.3-36.2 [facility] Comment on above: Performed By: #### P TT, PT #### [facility] [address] [place] [address] Dr. Vangie Devine XR CHEST 1 Von 01-10-2022 XR CHEST 1 V CLINICAL HISTORY: Chest pain COMPARISON: Chest radiograph 12/20/2015 at [facility]. FINDINGS: Portable AP view of the chest obtained. Cardiomediastinal silhouette is normal. Lungs are clear, no evidence of infiltrate, suspicious nodule, or mass. No evidence of significant pleural fluid on this portable projection. No acute bony abnormality. IMPRESSION: No acute abnormality. Electronically authenticated by: MADELAINE ALVA Date: 2022-01-10 10:16 Normal [facility] WRIST LEFT 3 VWSon 2 WRI[address] LEFT [address] [facility] Department of Radiology [address] [place] [id number] Patient Name: JAVIER LINK : 1970 Sex: F Age: Race: White Pt. 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 Electronically signed: QUANG RUFFIN. Transcribed by: [email or web address], User Resident: Electronically Signed by: QUANG RUFFIN @ 09/10/2021 09:[address] [facility] Comment on above: Order Comment: Evalu ate Operative Reporton Operative Report MR#: [id number] [facility] Pt. Name: Javier Link Room #: 0C Discharge Date: Birthdate: 1970 OPERATIVE REPORT DATE OF SURGERY: 07/22/2021 SURGEON: Rafi Biswas M.D. PREOPERATIVE DIAGNOSIS: Kienbock's disease, stage IV, left lunate. POSTOPERATIVE DIAGNOSIS: Kienbock's disease, stage IV, left lunate. PROCEDURE: Proximal row carpectomy, left wrist. HEAD SAMPLER: Maricarmen Liao M.D. ANESTHESIA: Regional. INDICATION FOR [...] took some 3-0 TiCron and put a gqtabf-rd-srhxn suture in that dorsal portion of the TFCC right near the ulnar styloid where the small tear was. The volar part of the TFCC looks good. Once that was in, the dorsal capsule was closed with multiple xtjlxi-vs-vpazb sutures of 2-0 Vicryl. The subcutaneous tissue [...] Biswas M.D. Date Trans: 07/22/2021 10:32 A/mmo [id number] cc: Moriah Mack M.D. [address] [place] [address] [facility] POC GLUCOSE LABon 07-22-2021 Glucose [Mass/Vol] 85 mg/dL Normal 70-[address] [facility] Comment on above: Performed By: #### 8 [id number] #### [address] [facility] MRI WRIST WO CONTRAST RIGHT [facility] Department of Radiology [address] [place] [phone] Patient Name: JAVIER LINK : 1970 Sex: F Age: Race: White Pt. 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 Electronically signed: Liz Harp. Transcribed by: [email or web address], User Resident: Electronically Signed by: LIZ HARP @ 06/11/2021 09:[address] [facility] Comment on above: Order Comment: Evide tra Webb's R wrist on outside x-ray, evaluate for staging and surgical planning. , Side: RIGHT WRIST LEFT 3 VWSon 1 [address] [facility] Department of Radiology [address] [place] [phone] Patient Name: JAVIER LINK : 1970 Sex: F Age: Race: White Pt. 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 COMPARISON: None. IMPRESSION: 1. Subtle sclerosis lunate suggests possibility of osteonecrosis. No significant ulnar variance. 2. No acute fracture. No dislocation. Likely remote injury ulnar styloid. 3. Borderline widening scapholunate interval. 4. Multiple moderate triscaphe and radiocarpal arthritis. Electronically signed: Alonso Iglesias. Transcribed by: [email or web address], User Resident: Electronically Signed by: ALONSO IGLESIAS @ 05/19/2021 12:[address] [facility] Comment on above: Order Comment: evalu ate WRIST RIGHT 3 VWSon 05-18-20 21 WRIST RIGHT [address] [facility] Department of Radiology [address] [place] [phone] Patient Name: JAVIER LINK : 1970 [...] variance. Electronically signed: Alonso Iglesias. Transcribed by: [email or web address], User Resident: Electronically Signed by: ALONSO IGLESIAS @ 05/19/2021 12:[address] [facility] Comment on above: Order Comment: evalu ate Vital Signs Date Time Vital Sign Value Performing Clinician Facility 01-20-2022 12:07-0400 Diastolic blood pressure 58 mm[Hg] No PCP None [facility] [address] DO Work Phone: 01-20-2022 12:07-0400 Systolic blood pressure 105 mm[Hg] No PCP None [facility] 250 DO Work Phone: 01-20-2022 11:58-0400 Body height 147.32 cm No PCP None [facility] 250 DO Work Phone: 01-20-2022 11:58-0400 Body mass index (BMI) [Ratio] 38.87 kg/m2 No PCP None [facility] 250 DO Work Phone: 01-20-2022 11:58-0400 Body surface area Derived from formula 1.77 m2 No PCP None [facility] 250 DO Work Phone: 01-20-2022 11:58-0400 Body weight 84.37 kg No PCP None [facility] DO Work Phone: 01-20-2022 11:58-0400 Diastolic blood pressure 62 mm[Hg] No PCP None [facility] DO Work Phone: 01-20-2022 11:58-0400 Heart rate 60 /min No PCP None [facility] 250 DO Work Phone: 01-20-2022 11:58-0400 Systolic blood pressure 110 mm[Hg] No PCP None [facility] 250 DO Work Phone: 01-20-2022 11:58-0400 6 1 No PCP None [facility] 250 DO Work Phone: Comment on above: PHQ-9 TS 01-14-2022 13:04-0400 Heart rate 74 /min DO W Clarke Bebo Work Phone: [facility] 01-14-2022 13:04-0400 Respiratory rate 20 /min DO W Clarke Bebo Work Phone: [facility] 01-14-2022 12:00-0400 Body temperature 98.4 [degF] DO W Clarke Bebo Work Phone: [facility] 01-14-2022 12:00-0400 Diastolic blood pressure 69 mm[Hg] DO W Clarke Garibay Work Phone: [facility] 01-14-2022 12:00-0400 SaO2% (BldA) [Mass fraction] 96 % DO W Clarke Garibay Work Phone: [facility] 01-14-2022 12:00-0400 Systolic blood pressure 98 mm[Hg] DO W Clarke Garibay Work Phone: [facility] 01-14-2022 04:55-0400 Body weight 85 kg DO W Clarke Garibay Work Phone: [facility] 01-12-2022 08:00-0400 Inhaled oxygen flow rate 3 L/min DO W Clarke Garibay Work Phone: [facility] 01-11-2022 16:45-0400 Inhaled oxygen concentration 50 % DO W Clarke Garibay Work Phone: [facility] 01-11-2022 00:00-0400 35 1 No PCP None [facility] 250 DO Work Phone: Comment on above: [id number] 01-10-2022 13:01-0400 Body height 147.32 cm DO W Clarke Garibay Work Phone: [facility] 01-10-2022 13:01-0400 Body mass index (BMI) [Ratio] 39.2 kg/m2 DO W Clarke Garibay Work Phone: [facility] Encounters Encounter Date Encounter Type Care Provider Facility Start: 06-17-2024 ambulatory [facility] Start: 05-21-2024 ambulatory [facility] Start: 04-30-2024 ambulatory [facility] Start: 03-15-2024 ambulatory [facility] Start: 02-27-2024 End: 02-27-2024 ambulatory [facility] Start: 02-07-[address] [facility] Start: 01-22-2024 Encounter for preprocedural cardiovascular examination [facility] Start: 01-22-2024 ambulatory ALTON [facility] Start: 01-12-2024 End: 01-12-[address] [facility] Start: 07-31-2023 End: 07-31-[address] [facility] Start: 07-18-2023 End: 07-18-2023 ambulatory [facility] Start: 06-28-2023 End: 06-28-[address] [facility] Start: 12-21-2022 End: 12-22-[address] DOCTOR [...] Start: 03-14-2022 End: 04-13-2022 ambulatory SHAIKH Sergo LONGEMILY Facility:[facility] Start: 02-14-2022 End: 03-11-2022 ambulatory SHAIKH Sergo JOSELONDONTu Facility:[facility] Start: 02-02-2022 End: 05-06-[address] DOCTOR SCHWARZ Facility:[facility] Start: 01-27-2022 Chart Update No PCP None [facility] 250 DO Work Phone: Start: 01-20-2022 End: 02-11-2022 ambulatory SHAIKH Sergo DECKERTu Facility:[facility] Start: 01-20-2022 Transitional care moni christinahomero srvc 7 day discharge No PCP None [facility] 250 DO Work Phone: Start: 01-17-2022 End: 01-18-[address] NOLAN GARIBAY Facility:[facility] Start: 01-10-2022 End: 01-14-2022 Evaluation and management of inpatient DO W Clarke Garibay Work Phone: [facility] Start: 01-10-2022 End: 01-10-2022 ambulatory HASMUKH KATZ . Facility:[facility] Start: 07-22-2021 End: 07-23-2021 ambulatory RAFI BISWAS Facility:[facility] Procedures Date Procedure Procedure Detail Performing [...] Nolan Garibay, Status: Pen, Time: 10:50 AM [facility] DO Work Phone: Start: 03-21-2022 FUV, Provider: Beth Hull, Status: Pen, Time: 8:30 AM FUV, Provider: Beth Hull, Status: Pen, Time: 8:30 AM [facility] DO Work Phone: Start: 03-14-2022 ECHO, Provider: [facility] ULTRASOUND 01,[id number], Status: Pen, Time: 10:45 AM ECHO, Provider: [facility] ULTRASOUND 01,[id number], Status: Pen, Time: 10:45 AM [facility] 250 DO Work Phone: Start: 01-26-2022 STRESS MARK, Provider : [facility] NUCLEAR 01,[id number], Status: Pen, Time: 2:00 PM STRESS MARK, Provider: [facility] NUCLEAR 01,[id number], Status: Pen, Time: 2:00 PM [facility] DO Work Phone: Patient Education Coronary Angio plasty (DC) Angina (DC) Drug Eluting Stents [facility] Work Phone: Patient referral [facility] Work Phone: Payers Date Payer Category Payer Medicare [id number] 2019 Unknown [id number] 1970 Unknown [id number] 2.16.8 40.1.504839.3.579.2.647 1970 Unknown [id number] 2.16.84 0.1.101481.3.579.2.593 1970 Unknown [id number] 2.16.84 0.1.143399.3.579.2.593 1970 Unknown [id number] 2.16.84 0.1.261904.3.579.2.593 1970 Unknown [id number] 2.16.84 0.1.068766.3.579.2.593 1971 Unknown [id number] 2.16.84 0.1.433024.3.579.2.593 1970 Unknown [id number] 2.16.84 0.1.735761.3.579.2.593 1971 Unknown [id number] 2.16.84 0.1.651640.3.579.2.593 1971 Unknown [id number] 2.16.84 0.1.065137.3.579.2.593 1971 Unknown [id number] 2.16.84 0.1.085497.3.579.2.593 1971 Unknown [id number] 2.16.84 0.1.500781.3.579.2.593 1971 Unknown [id number] 2.16.84 0.1.144532.3.579.2.593 1971 Unknown [id number] 2.16.84 0.1.551640.3.579.2.593 1971 Unknown [id number] 2.16.84 0.1.041247.3.579.2.593 1971 Unknown [id number] 2.16.84 0.1.667263.3.579.2.593 1971 Unknown [id number] 2.16.84 0.1.791855.3.579.2.593 1971 Unknown [id number] 2.16.84 0.1.724205.3.579.2.593 1971 Unknown [id number] 2.16.84 0.1.720769.3.579.2.593 1971 Unknown [id number] 2.16.84 0.1.721293.3.579.2.593 1971 Unknown [id number] 2.16.84 0.1.756423.3.579.2.593 1971 Unknown [id number] 2.16.84 0.1.699275.3.579.2.593 1958 Self-pay [id number] Unknown Unknown [id number] 2.16.84 0.1.297568.3.579.2.593 Unknown [id number] 2.16.8 40.1.471480.3.579.2.531 Social History Date Type Detail Facility Daily caffeine consumption Daily caffeine consumption [facility] Work Phone: Comment on above: 3-4; quit 1 week ago; Start: 01-10-2022 [facility] Start: 1970 Sex Assigned At Female F [facility] Medical Equipment Procedure Code Equipment Code Equipment Origin al Text Equipment Identifier Dates Drug-eluting coronary artery stent, vwf-[id number]-vr lymer-coated ()[id number] [id number] FDA Start: 01-10-2022 Drug-eluting coronary artery stent, xhc-kntoxxabujsqb-zo lymer-coated ()[id number] [id number] FDA Start: 01-10-2022 Goals Date Patient Goal Desired Activity /State Functional Status Date Assessment Result Facility 01-20-2022 PHQ-9 [id number] Mild (5-9) [facility] DO Work Phone: 01-14-2022 Functional status Patient at Baseline [facility] Work Phone: 01-10-2022 Functional status Disability Sta tus Patient at Baseline [facility] Work Phone: Mental Status Date Assessment Result Facility 01-10-2022 Cognitive function Cognitive Sta tus Patient at Baseline [facility] Work Phone: Clinical Notes 01-10-2022 to 01-12-2024 [...] All other systems reviewed and are negative. [facility] 01-12-2024 Note UTP CARDIOLOGY PROGR ESS NOTE HPI: Javier Link is a 53 y.o. female here for routine 6 month f/u HPI Pleasant 53 yo female presents for routine F/U for chronic systolic heart failure, CAD, and LV thrombus. Patient presents today with noted weight loss since last visit that she has been doing purposefully. She continues with cardiac rehab exercise at [facility]. She denies chest pain, shortness of breath, [...] 52-year-old woman. On 01/10/2022 she presented to [facility] with STEMI and was found to [...] is enrolled in cardiac rehab at the [facility] and doing well with that. Anticoagulation clinic at the [facility] follows her warfarin levels. Testing: ECG 01/13/2022: [...] syncope and le (more content not included)... [facility] 01-12-2024 Note HTN is well-controll ed with current med regimen and renal function stable [facility] 01-12-2024 Note [facility] II-currently eu volemic without exacerbation, no activity limiting symptoms Continue GDMT-aspirin, Lipitor, Coreg, Jardiance, Entresto and Aldactone with Diuretic therapy of Lasix 40 mg daily Monitor daily weights, I&O, fluid restriction 1.5-2L/day, renal function and electrolytes- [facility] 01-12-2024 Note Coronary artery dise ase is unchanged. Continue current medications. Cardiac status will be reassessed in 6 months. Continue goal-directed medical therapy with aspirin, Lipitor, Plavix, Coreg [facility] 01-12-2024 Note Lipid abnormalities are unchanged, well controlled; PCP monitoring LFT. Pharmacotherapy as ordered. Lipids will be reassessed annually. [facility] 01-12-2024 Note No thrombus noted on last [address] [facility] 07-31-2023 Note Subjective Javier Link is a [...] for 2023 because she is switching to [employer]. Historical: Failed Class I topical steroids, [...] sun safety. Call for any acute issues. [facility] 06-28-2023 Note [place] [facility] Subjective Javier Link is a [...] 52-year-old woman. On 01/10/2022 she presented to [facility] with STEMI and was found to [...] is enrolled in cardiac rehab at the [facility] and doing well with that. Anticoagulation clinic at the [facility] follows her warfarin levels. Testing: ECG 01/13/2022: [...] exertion NYHA class (more content not included)... [facility] 10-31-2022 Note CARDIAC STRESS TEST Requesting Physician: [...] CAD evaluation with invasive stress test. [facility] 01-13-2022 Progress note Note Date/Time January 13, 2022 3:15pm [facility] [address] [place] [address] Cardiology Progress Note Signed Patient: Javier Link MR#: [id number] : 1970 Acct:[id number] Age/Sex: 51 / F Adm Date: 2 Loc: Room: [address] [place] [address] Type : ADM IN Attending Dr: Isidra [...] Acute Documented By: Isidra Garibay DO 01/13/22 1513 Signed By: <Electronically signed by Isidra Garibay DO> 01/13/22 [facility] Work Phone: 1(291) 972-310506-01-2022 Progress note Author Isidra Garibay [facility] January 12, 2022 3:16pm Note Date/Time January 12, 2022 3:16p m [facility] [address] [place] [address] Cardiology Progress Note Signed Patient: Javier Link MR#: [id number] : 1970 Acct:[id number] Age/Sex: 51 / F Adm Date: 2 Loc: Room: 8W7763-7 Type : ADM IN Attending Dr: Isidra [...] <Electronically signed by Isidra Garibay DO> 01/12/22 [facility] Work Phone: 1(182) 976-469805-31-2022 Progress note Author Isidra Garibay [facility] January 11, 2022 1:38pm Note Date/Time January 11, 2022 1:38p m [facility] [address] [place] [address] Cardiology Progress Note Signed Patient: Javier Link MR#: [id number] : 1970 Acct:[id number] Age/Sex: 51 / F Adm Date: 2 Loc: Room: [address] [place] [address] Type : ADM IN Attending Dr: Isidra [...] ALT Alkaline Phosphatase Troponin I High Sens 08512 H* Total Protein Albumin Globulin Albumin/Globulin Ratio [...] ALT Alkaline Phosphatase Troponin I High Sens 127306 H* Total Protein Albumin Globulin Albumin/Globulin Ratio Triglycerides Cholesterol LDL Cholesterol, Calc VLDL Cholesterol HDL Cholesterol Cholesterol/HDL Ratio 01/10/22 01/10/22 01/10/22 20:42 21:57 23:37 APTT PHA Creatinine Clear Sodium Potassium Chloride Carbon Dioxide BUN Creatinine Est GFR ( Amer) Est GFR (Non-Af Amer) Glucose POC Glucose 148 Calcium Magnesium Total Bilirubin AST ALT Alkaline Phosphatase Troponin I High Sens 992253 H* 289636 H* Total Protein Albumin Globulin Albumin/Globulin Ratio [...] Alkaline Phosphatase 85 Troponin I High Sens 46405 H* Total Protein 6.0 L Albumin 2.9 [...] signed by Isidra Garibay DO> 01/11/22 1338 [facility] Work Phone: 1(730) 966-304405-30-2022 History and physical note Author Isidra Garibay [facility] January 10, 2022 12:14pm Note Date/Time January 10, 2022 10:30 am [facility] [address] [place] [address] Cardiology H&P Signed Patient: Javier Link MR#: [id number] : 1970 Acct:[id number] Age/Sex: 51 / F Adm Date: 2 Loc: Room: Type: [facility] Attending Dr: Isidra Garibay DO Copies to: NON STAFF Isidra Garibay DO~ Date of Service: 01/10/2022 Cardiology HPI History of Present Illness Chief complaint: Inferolateral STEMI HPI: Ms. Link is a 51 year old female transferred from [place] emergency room this morning after receiving phone call from Dr. Katz and reviewing electronic transmitted media and discussion about the clinical case. Patient presented with severe chest discomfort with no prior history of cardiac illness or intervention. ECGs reveal sinus rhythm with inferolateral ST elevation injury current. She was admitted restarted upstream antiplatelet and Antithrombin therapy, and transferred to the [facility] emergently. Patient arrived at [place] ER at 0924, first ECG transmitted to [place] was 0948, [facility] team was activated at 0952, patient was transferred by ground, arrived in [facility] at 1033 and underwent primary PCI at [...] ER staff, review of electronic transmitted media, [facility] staff, nursing staff and family both pre [...] signed by Isidra Garibay DO> 01/10/22 1214 [facility] Work Phone: 1(600) 118-606005-30-2022 [facility] [facility] - [facility]* 51-year-old [...] 12 weeks and myselfin approximately 4 months -[facility] [address] DO Work Phone: Chief complaint Narrative [...] 12 weeks and myselfin approximately 4 months [facility] Work Phone: Chief complaint Narrative - [...] 12 weeks and myselfin approximately 4 months [facility] Work Phone: Evaluation note* Diagnosis Onset Date Resolution Status Essential hypertension acute Hyperlipidemia acute Left ventricular thrombus ac jalil ST elevation myocardial infa rction (STEMI) of inferolateral wall acute [facility] Work Phone: Hospital Discharge instructions Additional Instructions [facility] to manage your Coumadin dosing [...] doctor or pharmacist, without first calling the medical administrative technician who implanted the stent. If you require [...] weight lifting, stair steppers, etc. until the medical administrative technician approves these activities. Check with the medical administrative technician on your first follow-up visit. CALL YOUR PHYSICIAN at [phone]: -If bleeding should occur from the catheter insertion site- apply pressure to the site then immediately call us. -Report any fever, redness, drainage, increased swelling, or firmness at the catheter insertion site. Some bruising or slight swelling may be present at the time of discharge. -Should arm or leg become cold, numb, white, or blue, contact the medical administrative technician immediately. -IF you should experience episodes of [...] is recommended. Please call Central Scheduling at [phone] to schedule your appointment.] The attending medical administrative technician or [facility] nurse clinician should provide you with specific instructions regarding activity, diet, medications, and further follow up for you. Follow the medication instructions provided on your discharge. If the dosages and instructions on this sheet differ from the dosage and instructions on the bottle, follow the instructions on the bottle. [facility] is not responsible for incorrect prescription information provided by the patient during their visit. Do not stop your medications without consulting your health care provider. Please take the list with you to your next doctor's appointment.[facility] Work Phone: Summary Purpose Family History No [...] and content) DATE CREATED AUTHOR 09/11/2021 [facility] DATE CREATED AUTHOR AUTHOR'S ORGANIZ ATION 03/09/2022 [facility] DATE CREATED AUTHOR AUTHOR'S ORGANIZ ATION 12/25/2022 [facility] DATE CREATED AUTHOR AUTHOR'S ORGANIZ ATION 05/11/2024 [facility] DATE CREATED AUTHOR AUTHOR'S ORGANIZ ATION 06/18/2024 [facility] Care Teams (unrecognized sec tion and content) Team Status: Inactive Member Role Status Dates Isidra Garibay DO Admit Provider, Attending Provide r Active [...] BE BASED ON THE PRIMARY CLINICAL RECORDS. [facility] [employer] [facility]. provides no warranty or guarantee of the accuracy or completeness of information in this document.
[2024-06-26 10:36] LABS: Bilirubin Urine NEGATIVE (NEGATIVE); Blood Urine NEGATIVE (NEGATIVE); Clarity Urine CLEAR (CLEAR); Color Urine LT. YELLOW (YELLOW); Glucose Urine UA 500 mg/dL (NEGATIVE); Ketones Urine NEGATIVE (NEGATIVE); Leukocyte Esterase Urine SMALL (NEGATIVE); Nitrite Urine NEGATIVE (NEGATIVE); Protein Urine NEGATIVE (NEG/TRACE); Specific Gravity Urine <=1.005 (1.005-1.025); Urobilinogen Urine 0.2 EU/dL (0.2-1.0); pH Urine 6.5 (5.0-9.0)
[2024-06-26 11:13] LABS: Bacteria Urine SMALL #/HPF (NONE SEEN); Cast Seen? NONE SEEN #/LPF (NONE SEEN); Crystals Seen? None Seen #/HPF (None Seen); Mucus Urine NONE SEEN (NONE SEEN); RBC Urine 0-2 #/HPF (0-2); Squamous Epithelial Cell Urine FEW #/LPF (NONE/RARE); WBC Urine 20-50 #/HPF (NONE SEEN)
== END 2024-06-26 09:42 | disposition home or self-care (01) ==
LOC: LAB 09:47
PROVIDERS: PCP Nurse Practitioner Family; Visit Provider Nurse Practitioner Family
DX: N39.0 Urinary tract infection, site not specified (principal)
CPT/HCPCS: 81001; 87086; 87150; 87186

== ENCOUNTER 2024-07-15 08:30 | Outpatient (OUT) | payer MEDICARE, SELFPAY ==
--- NOTE | 2024-07-15 | MM_ITS ---
Patient Name: JAVIER LINK MR#: [id number] : 1970 Exam Date: 07/15/2024 Ordering Doctor: NIKKI KELLOGG CNP RADIOLOGY REPORT PROCEDURE: MM TOMOSYNTHESIS SCREENING BI COMPARISON: MM TOMOSYNTHESIS SCREENING BI, 02/15/2023. MG MAMM SCREEN 3D RAMONE CAD, 12/10/2020. MG MAMM SCREEN 3D RAMONE CAD, 11/15/2016. INDICATIONS: SCREENING Calculator Name NCI Breast Cancer Risk Assessment Tool 5 Year Breast Cancer Risk 2.00% Lifetime Breast Cancer Risk 15.30% Personal Breast Cancer No Personal Ovarian Cancer No Treatments None Family Cancers Sister with breast cancer at age 46; Sister with lung cancer at age 46; Grandfather-paternal with prostate cancer at age ~80. LOCATION: [facility] BREAST COMPOSITION: The breasts are almost entirely fatty. FINDINGS: DIAGNOSTIC CATEGORY 2--BENIGN FINDING: RIGHT BREAST: No significant suspicious finding. Stable may asymmetric fibroglandular tissue. No significant change has occurred. LEFT BREAST: No significant suspicious finding. No significant change has occurred. RECOMMENDATIONS: ROUTINE MAMMOGRAM AND CLINICAL EVALUATION IN 12 MONTHS. PLEASE NOTE: A NORMAL MAMMOGRAM DOES NOT EXCLUDE THE POSSIBILITY OF BREAST CANCER. A CLINICALLY SUSPICIOUS PALPABLE LUMP SHOULD BE BIOPSIED. Dictated by: Antonio Shaffer M.D. on 07/15/2024 at 16:02 Approved by: Antonio Shaffer M.D. on 07/15/2024 at 16:04
== END 2024-07-15 08:31 | disposition home or self-care (01) ==
LOC: MAMMO 08:30
PROVIDERS: PCP Nurse Practitioner Family; Visit Provider Nurse Practitioner Family
DX: Z12.31 Encounter for screening mammogram for malignant neoplasm of breast (principal); Z80.3 Family history of malignant neoplasm of breast; Z80.1 Family history of malignant neoplasm of trachea, bronchus and lung; Z80.42 Family history of malignant neoplasm of prostate
CPT/HCPCS: 77063; 77067

== ENCOUNTER 2024-07-15 09:25 | Outpatient (OUT) | payer MEDICARE, SELFPAY ==
--- OUTSIDE RECORDS SUMMARY | 2024-07-15 09:42 | XMS_ITS | CCD ---
Author Organization [facility] Care Team Providers Care Content Analyst Name Role Phone RAFI BISWAS Attending Unavailable [...] Unavailable MOUKARBEL, DR SHAFFER Consulting Unavailable VALDEZ, [facility] Primary Care Unavailable MOUKARBEL, DR SHAFFER Attending Unavailable MOUKARBEL, DR SHAFFER Admitting Unavailable FAWWAD, SWIFT H Admitting Unavailable FAWWAD, SWIFT H Attending Unavailable VALDEZ, NIKKI Primary Care Unavailable NON STAFF Primary Care Unavailable Isidra Garibay Attending Unavailable Isidra Garibay Admitting Unavailable ALTON PARKS Referring Unavailable ALTON PARKS Referring Unavailable ALTON PARKS Referring Unavailable ALTON PARKS Referring Unavailable OWEN, DELL Referring Unavailable OWEN, DELL Referring Unavailable CIRILO RUBALCAVA Attending Unavailable OWEN, EDLL Referring Unavailable ALTON PARKS Referring Unavailable OWEN, DELL Referring Unavailable BAILEY, ALTON Referring Unavailable BAILEY, ALTON Referring Unavailable BAILEY, ALTON Referring Unavailable BAILEY, ALTON Referring Unavailable MOUKADEENA ABREU Attending Unavailable ANTHONY, YELENA Attending Unavailable BAILEY, ALTON Referring Unavailable BAILEY, ALTON Referring Unavailable OWEN, DELL Referring Unavailable OWEN, DELL Referring Unavailable OWEN, DELL Referring Unavailable Allergies Allergy Classification Reported Allergen(s) Allergy Type Date of Onset Reaction(s) Facility (1 source) AVELOX IN NACL (ISO-OSMOTIC); Translations: [AVELOX IN NACL (ISO-OSMOTIC)] Propensity to adverse reactions (disorder) 1 [facility] Repository (4 sources) moxifloxacin; Translations: [Avelox] Drug Allergy [place] [id number] DO Work Phone: (3 sources) moxifloxacin; Translations: [moxifloxacin] Drug Allergy 2 [facility] (1 source) moxifloxacin Drug Allergy 3 [facility] Repository (1 source) Chlorhexidine; Translations: [CHLORHEXIDINE GLUCONATE] Drug Allergy 0 [facility] Repository Medications Current Medications Medication Drug Class(es) Dates Sig (Normalized) Sig (Original) [id number] 200 actuat albuterol 0.09 mg/actuat metered dose [...] 2022 1:49pm take 1 capsule by mo [facility] three times daily as needed Benzonatate 200 [...] 2022 6:58pm take 1 capsule by mo [facility] once daily before breakfast Levothyroxine Sodium 137 [...] 14, 2022 2:26pm take 6/3, 6/4, and 6/5 then decrease to 3mg daily starting 01/17 Warfarin Sodium 3 MG Oral Tablet Take as directed by [facility] Quantity: 0 Refills: 0 Ordered: [...] sources) Coronary arteriosclerosis; Translations: [Coronary atherosclerosis of pilot station coronary artery] Onset: 02-02-2022 Chronic Coronary atherosclerosis and other heart disease (7 sources) Patient post percutaneous transluminal coronary angioplasty; Translations: [Percutaneous transluminal coronary angioplasty status] Onset: 02-28-2022 Episodic Diabetes mellitus without complication (1 source) Type [...] Translations: [DIZZINESS AND GIDDINESS] Onset: 06-03-2022 Episodic Other aftercare (1 source) 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 therapy; Translations: [OTH INFORMATION SECURITY CURRENT DRUG THERAPY] Onset: 06-07-2022 Episodic Other aftercare (4 sources) Encounter for therapeutic drug level monitoring; Translations: [ENC THERAPEUTC DRUG LEVL MONITORING] Onset: 05-15-2022 Episodic Other aftercare (1 source) senior care (current) use of anticoagulants; Translations: [INFORMATION SECURITY CURRNT USE ANTICOAGULANTS] Onset: 06-14-2022 Episodic Other [...] Value Interpretation Reference Range Facility Office Visiton 07-08-2024 Follow-up visit [id number] Javier Link 1970 F Date Provider Department Center 07/08/2024 Krystal-DEENA BENTON [facility] Family History Problem Relation Age of Onset Atrial fibrillation Mother Other Mother Heart attack Father Other Father Other Father Family Status - Relation Status Age at Mother Father Level of Service:[id number] PA OFFICE/OUTPATIENT ESTABLISHED MOD MDM 30 MIN [facility] Office Visiton 01-12-2024 Follow-up visit [id number] Javier Link 1970 F Date Provider Department Center 01/12/2024 Jaleel-YELENA CRUZ CARD [facility] Family History Problem Relation Age of Onset Atrial fibrillation Mother Other Mother Heart attack Father Other Father Other Father Family Status - Relation Status Age at Mother Father Level of Service:82634 PA OFFICE/OUTPATIENT ESTABLISHED MOD MDM 30 MIN [facility] 36on 09-29-2023 36 Yes please! [facility] 36 Can we give patient sample? [facility] Follow-Upon 07-31-2023 Follow-Up [id number] Javier Link 1970 Date Provider Department Center 07/31/2023 CIRILO [facility] Family History Problem Relation Age of Onset Atrial fibrillation Mother Other Mother Heart attack Father Other Father Other Father Family Status - Relation Status Age at Mother Father Level of Service:55017 PA OFFICE/OUTPATIENT ESTABLISHED MOD MDM 30-39 MIN Reason for Visit and Comments: Follow-up [724934] - Discuss medication switch Normal [facility] PROF CHEM 8 (BAS METB)on Anion gap [Moles/Vol] 14.8 mmol/L Normal [facility] Comment on above: Performed By: #### C BC #### [facility] [address] [address] [address] Vangie Devine Calcium [Mass/Vol] 8.9 mg/dL Normal 8.5-10.1 [facility] Comment on above: Performed By: #### C BC #### [facility] [address] [address] [address] Vangie Devine Chloride [Moles/Vol] 101 mmol/L Normal 98-107 [facility] Comment on above: Performed By: #### C BC #### [facility] [address] [address] [address] Vangie Devine CO2 [Moles/Vol] 25.9 mmol/L Normal 21.0-32.0 [facility] Comment on above: Performed By: #### C BC #### [facility] [address] [address] [address] Vangie Devine Creatinine [Mass/Vol] 0.91 mg/dL Normal 0.55-1.02 [facility] Comment on above: Performed By: #### C BC #### [facility] [address] [address] [address] Vangie Devine EGFR-AF SPANISH >60 Normal >=60 [facility] Comment on above: Performed By: #### C BC #### [facility] [address] [place] [address] Dr. Vangie Devine EGFR-NON AF SPANISH >60 Normal >=60 [facility] Comment on above: Performed By: #### C BC #### [facility] [address] [address] [address] Vangie Devine Glucose [Mass/Vol] 93 mg/dL Normal 74-106 [facility] Comment on above: Performed By: #### C BC #### [facility] [address] [place] [address] Dr. Vangie Devine Potassium [Moles/Vol] 4.7 mmol/L Normal 3.5-5.1 [facility] Comment on above: Performed By: #### C BC #### [facility] [address] [address] [address] Vangie Devine Sodium [Moles/Vol] 137 mmol/L Normal 136-145 [facility] Comment on above: Performed By: #### C BC #### [facility] [address] [place] [address] Dr. Vangie Devine Urea nitrogen [Mass/Vol] 9.0 mg/dL Normal 7.0-18.0 [facility] Comment on above: Performed By: #### C BC #### [facility] [address] [address] [address] Vangie Devine Urea nitrogen/Creatinine [Mass ratio] 9.9 mg/mg Normal [facility] Comment on above: Performed By: #### C BC #### [facility] [address] [address] [address] Vangie Devine PROF CHEM 8 (BAS METB)on Anion gap [Moles/Vol] 15.6 mmol/L Normal [facility] Comment on above: Performed By: #### P TT, PT #### [facility] [address] [place] [address] Dr. Vangie Devine Calcium [Mass/Vol] 8.9 mg/dL Normal 8.5-10.1 [facility] Comment on above: Performed By: #### P TT, PT #### [facility] [address] [place] [address] Dr. Vangie Devine Chloride [Moles/Vol] 101 mmol/L Normal 98-107 [facility] Comment on above: Performed By: #### P TT, PT #### [facility] [address] [place] [address] Dr. Vangie Devine CO2 [Moles/Vol] 24.7 mmol/L Normal 21.0-32.0 [facility] Comment on above: Performed By: #### P TT, PT #### [facility] [address] [place] [address] Dr. Vangie Devine Creatinine [Mass/Vol] 0.95 mg/dL Normal 0.55-1.02 [facility] Comment on above: Performed By: #### P TT, PT #### [facility] [address] [place] [address] Dr. Vangie Devine EGFR-AF SPANISH >60 Normal >=60 [facility] Comment on above: Performed By: #### P TT, PT #### [facility] [address] [address] [address] Vangie Devine EGFR-NON AF SPANISH >60 Normal >=60 [facility] Comment on above: Performed By: #### P TT, PT #### [facility] [address] [address] [address] Vangie Devine Glucose [Mass/Vol] 101 mg/dL Normal 74-106 [facility] Comment on above: Performed By: #### P TT, PT #### [facility] [address] [address] [address] Vangie Devine Potassium [Moles/Vol] 4.3 mmol/L Normal 3.5-5.1 [facility] Comment on above: Performed By: #### P TT, PT #### [facility] [address] [address] [address] Vangie Devine Sodium [Moles/Vol] 137 mmol/L Normal 136-145 [facility] Comment on above: Performed By: #### P TT, PT #### [facility] [address] [address] [address] Vangie Devine Urea nitrogen [Mass/Vol] 15.0 mg/dL Normal 7.0-18.0 [facility] Comment on above: Performed By: #### P TT, PT #### [facility] [address] [address] [address] Vangie Devine Urea nitrogen/Creatinine [Mass ratio] 15.8 mg/mg Normal [facility] Comment on above: Performed By: #### P TT, PT #### [facility] [address] [place] [address] Dr. Vangie Devine NM STRESS/REST MULTIon 10-31 NM STRESS/REST MULTI Patient: JAVIER LINK Exam Date: 10/31/2022 : 1970 Gender:F Ordering : DR DEENA BENTON M.D. Admission #: [id number] Family : Order #: [id number] CLICK HERE TO VIEW EXAM RADIOLOGY REPORT [...] M.D. on 10/31/2022 at 14:45 Normal [facility] FREE THYROXINE INDEX T7on FTI 4.83 Critically high 1.30-4.50 [facility] Comment on above: Performed By: #### C BC #### [facility] [address] [place], [place] [address] Dr. Vangie Devine T3U 35.0 % Normal 30.0-39.0 [facility] Comment on above: Performed By: #### C BC #### [facility] [address] [place], [place] [address] Dr. Vangie Devine T4 [Mass/Vol] 13.80 ug/dL Normal 4.80-13.90 [facility] Comment on above: Performed By: #### C BC #### [facility] [address] [place] [address] Dr. Vangie Devine TSHon 07-20-2022 TSH 0.051 uIU/mL Critically low 0.358-3.740 [facility] Comment on above: Performed By: #### C BC #### [facility] [address] [place] [address] Dr. Vangie Devine ACETONE SERUMon 06-03-2022 ACETONE Negative Normal NEGATIVE [facility] Comment on above: Performed By: #### C BCMAN #### [facility] [address] [place] [address] Dr. Vangie Devine CBC AUTO DIFFon 06-03-2022 BASO # 0.1 103/ul Normal 0.0-0.1 [facility] Comment on above: Performed By: #### C JANNETTEMAN #### [facility] [address] [place] [address] Dr. Vangie Devine Basophils/100 WBC (Bld) 0.6 % Normal 0.2-2.0 [facility] Comment on above: Performed By: #### C BCMAN #### [facility] [address] [place] [address] Dr. Vangie Devine EO # 0.3 103/ul Normal 0.0-0.7 [facility] Comment on above: Performed By: #### C BCMAN #### [facility] [address] [place] [address] Dr. Vangie Devine Eosinophils/100 WBC (Bld) 1.4 % Normal 0.9-7.0 [facility] Comment on above: Performed By: #### C BCMAN #### [facility] [address] [place] [address] Dr. Vangie Devine Erythrocyte distribution width (RBC) [Ratio] 13.2 % Normal 11.0-15.0 [facility] Comment on above: Performed By: #### C BCMAN #### [facility] [address] [place] [address] Dr. Vangie Devine Hematocrit (Bld) [Volume fraction] 44.8 % Normal 36.0-48.0 [facility] Comment on above: Performed By: #### C BCMAN #### [facility] [address] [address] [address] Vangie Devine Hemoglobin (Bld) [Mass/Vol] 15.0 g/dL Normal 12.0-16.0 [facility] Comment on above: Performed By: #### C BCMAN #### [facility] [address] [address] [address] Vangie Devine IG # 0.06 10e3/ul Critically high 0.00-0.03 [facility] Comment on above: Performed By: #### C BCMAN #### [facility] [address] [address] [address] Vangie Devine IG % 0.3 % Normal 0.0-0.5 [facility] Comment on above: Performed By: #### C BCMAN #### [facility] [address] [address] [address] Vangie Devine LYMPH # 3.5 103/ul Normal 1.2-3.8 [facility] Comment on above: Performed By: #### C BCMAN #### [facility] [address] [address] [address] Vangie Devine Lymphocytes/100 WBC (Bld) 19.8 % Critically low 20.5-60.0 [facility] Comment on above: Performed By: #### C BCMAN #### [facility] [address] [address] [address] Vangie Devine MANUAL DIFF REQ NO Normal [facility] Comment on above: Performed By: #### C BCMAN #### [facility] [address] [address] [address] Vangie Devine MCH (RBC) [Entitic mass] 31.1 pg Normal 26.7-34.0 [facility] Comment on above: Performed By: #### C BCMAN #### [facility] [address] [address] [address] Vangie Devine MCHC (RBC) [Mass/Vol] 33.5 g/dL Normal 29.9-35.2 [facility] Comment on above: Performed By: #### C JOBY #### [facility] [address] [address] [address] Vangie Devine MCV (RBC) [Entitic vol] 92.8 fL Normal 81.0-99.0 [facility] Comment on above: Performed By: #### C JOBY #### [facility] [address] [address] [address] Vangie Devine MONO # 1.1 103/ul Critically high 0.3-0.8 [facility] Comment on above: Performed By: #### C JOBY #### [facility] [address] [address] [address] Vangie Devine Monocytes/100 WBC (Bld) 6.0 % Normal 1.7-12.0 [facility] Comment on above: Performed By: #### C JOBY #### [facility] [address] [place] [address] Dr. Vangie Devine NEUT # 12.6 103/ul Critically high 1.4-6.5 [facility] Comment on above: Performed By: #### C JOBY #### [facility] [address] [place] [address] Dr. Vangie Devine Neutrophils/100 WBC (Bld) 71.9 % Normal 43.0-75.0 [facility] Comment on above: Performed By: #### C JOBY #### [facility] [address] [address] [address] Vangie Devine Platelet mean volume (Bld) [Entitic vol] 11.0 fL Normal 9.5-13.5 [facility] Comment on above: Performed By: #### C JOBY #### [facility] [address] [address] [address] Vangie Devine PLT 179 103/ul Normal 150-450 [facility] Comment on above: Performed By: #### C JOBY #### [facility] [address] [place] [address] Dr. Vangie Devine RBC 4.83 106/ul Normal 4.20-5.40 [facility] Comment on above: Performed By: #### C JOBY #### [facility] [address] [address] [address] Vangie Devine WBC 17.5 103/ul Critically high 4.0-11.0 [facility] Comment on above: Performed By: #### C JOBY #### [facility] [address] [place], [place] [address] HEAD WO CONon [...] MARY ROJAS Date: 2022-06-03 19:15 Normal [facility] CULTURE URINEon 06-03-2022 CULTURE URINE Culture Observations : NO GROWTH. Normal [facility] Comment on above: Performed By: #### P TT, PT #### [facility] [address] [address] [address] Vangie Dev[facility] SARS-CoV-2 (COVID-19) RNA SAMIR+probe Ql (Unsp spec) Not detected Normal NOT DETECTED [facility] Comment on above: Result Comment: When diagnostic [...] for this test is supported by the [employer]'s declaration that [...] used). Performed By: #### C BCMAN #### [facility] [address] [place] [address] Dr. Vangie Devine ER URINE PROFILEon 2 Bilirubin Ql (U) Negative Normal NEGATIVE [facility] Comment on above: Performed By: #### C BC #### [facility] [address] [place] [address] Dr. Vangie Devine Clarity (U) CLEAR Normal CLEAR [facility] Comment on above: Performed By: #### C BC #### [facility] [address] [place] [address] Dr. Vangie Devine Color (U) LT. YELLOW Normal YELLOW [facility] Comment on above: Performed By: #### C BC #### [facility] [address] [place] [address] Dr. Vangie BHANDARITu A micrscopic examination will be performed if indicated. Normal [facility] Comment on above: Performed By: #### C BC #### [facility] [address] [place] [address] Dr. Vangie Devine Glucose Ql (U) 250 mg/dl Abnormal NEGATIVE [facility] Comment on above: Performed By: #### C BC #### [facility] [address] [place] [address] Dr. Vangie Devine Hemoglobin Ql (U) Negative Normal NEGATIVE [facility] Comment on above: Performed By: #### C BC #### [facility] [address] [place] [address] Dr. Vangie Devine Ketones Ql (U) Negative Normal NEGATIVE [facility] Comment on above: Performed By: #### C BC #### [facility] [address] [place] [address] Dr. Vangie Devine LEUKOCYTES Negative Normal NEGATIVE [facility] Comment on above: Performed By: #### C BC #### [facility] [address] [place] [address] Dr. Vangie Devine Nitrite Ql (U) Positive Abnormal NEGATIVE [facility] Comment on above: Performed By: #### C BC #### [facility] [address] [place] [address] Dr. Vangie Devine pH (U) 6.0 [pH] Normal 5-9 [facility] Comment on above: Performed By: #### C BC #### [facility] [address] [place] [address] Dr. Vangie Devine SPEC GRAVITY <=1.005 Abnormal 1.005-<=1.025 [facility] Comment on above: Performed By: #### C BC #### [facility] [address] [place] [address] Dr. Vangie Devine UA PROTEIN Negative Normal NEGATIVE/ TRACE [facility] Comment on above: Performed By: #### C BC #### [facility] [address] [place] [address] Dr. Vangie Devine UR MICRO IND INDICATED Normal [facility] Comment on above: Performed By: #### C BC #### [facility] [address] [place] [address] Dr. Vangie Devine Urobilinogen Qn (U) 0.2 {Jewel'U}/dL Normal 0.2 - 1. 0 [facility] Comment on above: Performed By: #### C BC #### [facility] [address] [place] [address] Dr. Vangie Devine FREE T3on 06-03-2022 FREE T3 2.42 pg/mlL Normal 2.18-3.98 [facility] Comment on above: Performed By: #### F T3 #### [facility] [address] [place] [address] Dr. Vangie Devine FREE T4on 06-03-2022 Free T4 [Mass/Vol] 1.93 ng/dL Critically high 0.76-1.46 [facility] Comment on above: Performed By: #### C JOBY #### [facility] [address] [place] [address] Dr. Vangie Devine LACTATE/LACTIC ACIDon 2021 Lactate [Moles/Vol] 1.2 mmol/L Normal 0.4-1.9 [facility] Comment on above: Performed By: #### C JOBY #### [facility] [address] [place] [address] Dr. Vangie Devine PROF 14(COMP METB)on 022 Albumin [Mass/Vol] 3.9 g/dL Normal 3.4-5.0 [facility] Comment on above: Performed By: #### H STROPN, TSH, CMP #### [facility] [address] [place] [address] Dr. Vangie Devine Albumin/Globulin [Mass ratio] 0.9 {ratio} Normal [facility] Comment on above: Performed By: #### H STROPN, TSH, CMP #### [facility] [address] [place] [address] Dr. Vangie Devine ALP [Catalytic activity/Vol] 138 U/L Critically high 46-116 [facility] Comment on above: Performed By: #### H STROPN, TSH, CMP #### [facility] [address] [place] [address] Dr. Vangie Devine ALT [Catalytic activity/Vol] 24 U/L Normal 14-59 [facility] Comment on above: Performed By: #### H STROPN, TSH, CMP #### [facility] [address] [place] [address] Dr. Vangie Devine Anion gap [Moles/Vol] 11.4 mmol/L Normal [facility] Comment on above: Performed By: #### H STROPN, TSH, CMP #### [facility] [address] [address] [address] Vangie Devine AST [Catalytic activity/Vol] 23 U/L Normal 15-37 [facility] Comment on above: Performed By: #### H STROPN, TSH, CMP #### [facility] [address] [place] [address] Dr. Vangie Devine Bilirubin [Mass/Vol] 0.5 mg/dL Normal 0.2-1.0 [facility] Comment on above: Performed By: #### H STROPN, TSH, CMP #### [facility] [address] [place] [address] Dr. Vangie Devine Calcium [Mass/Vol] 9.5 mg/dL Normal 8.5-10.1 [facility] Comment on above: Performed By: #### H STROPN, TSH, CMP #### [facility] [address] [place] [address] Dr. Vangie Devine Chloride [Moles/Vol] 98 mmol/L Normal 98-107 [facility] Comment on above: Performed By: #### H STROPN, TSH, CMP #### [facility] [address] [place] [address] Dr. Vangie Devine CO2 [Moles/Vol] 25.3 mmol/L Normal 21.0-32.0 [facility] Comment on above: Performed By: #### H STROPN, TSH, CMP #### [facility] [address] [place] [address] Dr. Vangie Devine Creatinine [Mass/Vol] 0.90 mg/dL Normal 0.55-1.02 [facility] Comment on above: Performed By: #### H STROPN, TSH, CMP #### [facility] [address] [place] [address] Dr. Vangie Devine EGFR-AF SPANISH >60 Normal >=60 [facility] Comment on above: Performed By: #### H STROPN, TSH, CMP #### [facility] [address] [place] [address] Dr. Vangie Devine EGFR-NON AF SPANISH >60 Normal >=60 [facility] Comment on above: Performed By: #### H STROPN, TSH, CMP #### [facility] [address] [address] [address] Vangie Devine Globulin (S) [Mass/Vol] 4.2 g/dL Normal [facility] Comment on above: Performed By: #### H STROPN, TSH, CMP #### [facility] [address] [address] [address] Vangie Devine Glucose [Mass/Vol] 93 mg/dL Normal 74-106 [facility] Comment on above: Performed By: #### H STROPN, TSH, CMP #### [facility] [address] [place] [address] Dr. Vangie Devine Potassium [Moles/Vol] 3.7 mmol/L Normal 3.5-5.1 [facility] Comment on above: Performed By: #### H STROPN, TSH, CMP #### [facility] [address] [place] [address] Dr. Vangie Devine Protein [Mass/Vol] 8.1 g/dL Normal 6.4-8.2 [facility] Comment on above: Performed By: #### H STROPN, TSH, CMP #### [facility] [address] [address] [address] Vangie Devine Sodium [Moles/Vol] 131 mmol/L Critically low 136-145 [facility] Comment on above: Performed By: #### H STROPN, TSH, CMP #### [facility] [address] [place] [address] Dr. Vangie Devine Urea nitrogen [Mass/Vol] 14.0 mg/dL Normal 7.0-18.0 [facility] Comment on above: Performed By: #### H STROPN, TSH, CMP #### [facility] [address] [place] [address] Dr. Vangie Devine Urea nitrogen/Creatinine [Mass ratio] 15.6 mg/mg Normal [facility] Comment on above: Performed By: #### H STROPN, TSH, CMP #### [facility] [address] [place] [address] Dr. Vangie Devine PROTIMEon 06-03-2022 INR Coag (PPP) [Relative time] 1.06 {INR} Normal [facility] Comment on above: Performed By: #### C JANNETTEHERIBERTO #### [facility] [address] [place] [address] Dr. Vangie Devine INR GUIDELINES SEE BELOW Normal [facility] Comment on above: Result Comment: MARY ANN RED INR: 2.0 - 3.0 CONDITIONS NOT LISTED BELOW 2.5 - 3.5 FOR PROSTHETIC HEART VALVE REPLACEMENT 2.5 - 3.5 RECURRENT THROMBOSIS Performed By: #### C JANNETTEHERIBERTO #### [facility] [address] [address] [address] Vangie Devine PT Coag (PPP) [Time] 11.4 s Normal 9.0-11.6 [facility] Comment on above: Performed By: #### C JOBY #### [facility] [address] [place] [address] Dr. Vangie Devine PTTon 06-03-2022 aPTT Coag (Bld) [Time] 31.3 s Normal 22.3-36.2 [facility] Comment on above: Performed By: #### C JANNETTEHERIBERTO #### [facility] [address] [place] [address] Dr. Vangie Devine TROPONIN, HIGH SENSITIVITYon 06-03-2022 HSTROP 26.3 pg/mL Normal 4.0-51.3 [facility] Comment on above: Result Comment: CUT- OFF POINTS HAVE BEEN ESTABLISHED BASED ON THE FOURTH UNIVERSAL DEFINITIONS OF MYOCARDIAL INFARCTION. THE UPPER REFERENCE LIMIT (URL) OF TROPONIN, DEFINED THE 99TH PERCENTILE OF cTnI DISTRIBUTION IN A REFERENCE POPULATION, HAS BEEN CONFIRMED THE DECISION THRESHOLD FOR [place] DIAGNOSIS. Performed By: #### P TT, PT #### [facility] [address] [place] [address] Dr. Vangie Devine TSHon 06-03-2022 TSH 0.150 uIU/mL Critically low 0.358-3.740 [facility] Comment on above: Performed By: #### P TT, PT #### [facility] [address] [place] [address] Dr. Vangie Devine URINE MICROSCOPIC ONLYon BACTERIA TRACE Abnormal NONE SEEN [facility] Comment on above: Performed By: #### C BC #### [facility] [address] [place] [address] Dr. Vangie Devine Bacteria identified Cx Nom (U) INDICATED Normal [facility] Comment on above: Result Comment: dory cated due to positive nitrite Performed By: #### C BC #### [facility] [address] [place] [address] Dr. Vangie Devine CAST NONE SEEN Normal NONE SEEN [facility] Comment on above: Performed By: #### C BC #### [facility] [address] [place] [address] Dr. Vangie Devine Crystals LM Nom (Urine sed) NONE SEEN Normal NONE SEEN [facility] Comment on above: Performed By: #### C BC #### [facility] [address] [place] [address] Dr. Vangie Devine Epithelial cells LM Ql (Urine sed) RARE Normal NONE SEEN /RARE [facility] Comment on above: Performed By: #### C BC #### [facility] [address] [place] [address] Dr. Vangie Devine MUCOUS NONE SEEN Normal NONE SEEN [facility] Comment on above: Performed By: #### C BC #### [facility] [address] [place] [address] Dr. Vangie Devine RBC 0-2 Normal 0-2 [facility] Comment on above: Performed By: #### C BC #### [facility] [address] [place] [address] Dr. Vangie Devine WBC 0-2 Abnormal NONE SEEN [facility] Comment on above: Performed By: #### C BC #### [facility] [address] [place] [address] Dr. Vangie Devine XR CHEST 1 Von [...] MARY ROJAS Date: 2022-06-03 19:25 Normal [facility] XR CHEST 2 Von 05-18-2022 XR CHEST [...] ANGEL SHAFFER Date: 2022-05-18 10:55 Normal [facility] Covid-19 PCR (CVDTB)on SARS-CoV-2 (COVID-19) RNA SAMIR+probe Ql (Unsp spec) Not detected Normal NOT DETECTED [facility] Comment on above: Result Comment: This test is not yet approved or cleared by the [place] FDA. When there are no FDA-approved or cleared tests available, and other criteria are met, FDA can make tests available under an emergency access mechanism called an Emergency Use Authorization (EUA). The EUA for this test is supported by the [place] of Health and Human Service's (HHS's) declaration [...] Performed By: #### P TT, PT #### [facility] [address] [place] [address] Dr. Vangie Devine CBC AUTO DIFFon 05-12-2022 BASO # 0.1 103/ul Normal 0.0-0.1 [facility] Comment on above: Performed By: #### C BC #### [facility] [address] [place] [address] Dr. Vangie Devine Basophils/100 WBC (Bld) 0.7 % Normal 0.2-2.0 [facility] Comment on above: Performed By: #### C BC #### [facility] [address] [place] [address] Dr. Vangie Devine EO # 0.2 103/ul Normal 0.0-0.7 [facility] Comment on above: Performed By: #### C BC #### [facility] [address] [place] [address] Dr. Vangie Devine Eosinophils/100 WBC (Bld) 2.1 % Normal 0.9-7.0 [facility] Comment on above: Performed By: #### C BC #### [facility] [address] [place] [address] Dr. Vangie Devine Erythrocyte distribution width (RBC) [Ratio] 13.1 % Normal 11.0-15.0 [facility] Comment on above: Performed By: #### C BC #### [facility] [address] [place] [address] Dr. Vangie Devine Hematocrit (Bld) [Volume fraction] 43.2 % Normal 36.0-48.0 [facility] Comment on above: Performed By: #### C BC #### [facility] [address] [place] [address] Dr. Vangie Devine Hemoglobin (Bld) [Mass/Vol] 14.2 g/dL Normal 12.0-16.0 [facility] Comment on above: Performed By: #### C BC #### [facility] [address] [place] [address] Dr. Vangie Devine IG # 0.02 10e3/ul Normal 0.00-0.03 [facility] Comment on above: Performed By: #### C BC #### [facility] [address] [place] [address] Dr. Vangie Devine IG % 0.2 % Normal 0.0-0.5 [facility] Comment on above: Performed By: #### C BC #### [facility] [address] [place] [address] Dr. Vangie Devine LYMPH # 1.9 103/ul Normal 1.2-3.8 [facility] Comment on above: Performed By: #### C BC #### [facility] [address] [place] [address] Dr. Vangie Devine Lymphocytes/100 WBC (Bld) 22.2 % Normal 20.5-60.0 [facility] Comment on above: Performed By: #### C BC #### [facility] [address] [place] [address] Dr. Vangie Devine MANUAL DIFF REQ NO Normal [facility] Comment on above: Performed By: #### C BC #### [facility] [address] [place] [address] Dr. Vangie Devine MCH (RBC) [Entitic mass] 30.5 pg Normal 26.7-34.0 [facility] Comment on above: Performed By: #### C BC #### [facility] [address] [place] [address] Dr. Vangie Devine MCHC (RBC) [Mass/Vol] 32.9 g/dL Normal 29.9-35.2 [facility] Comment on above: Performed By: #### C BC #### [facility] [address] [place] [address] Dr. Vangie Devine MCV (RBC) [Entitic vol] 92.7 fL Normal 81.0-99.0 [facility] Comment on above: Performed By: #### C BC #### [facility] [address] [address] [address] Vangie Devine MONO # 0.5 103/ul Normal 0.3-0.8 [facility] Comment on above: Performed By: #### C BC #### [facility] [address] [address] [address] Vangie Devine Monocytes/100 WBC (Bld) 6.0 % Normal 1.7-12.0 [facility] Comment on above: Performed By: #### C BC #### [facility] [address] [address] [address] Vangie Devine NEUT # 6.0 103/ul Normal 1.4-6.5 [facility] Comment on above: Performed By: #### C BC #### [facility] [address] [place] [address] Dr. Vangie Devine Neutrophils/100 WBC (Bld) 68.8 % Normal 43.0-75.0 [facility] Comment on above: Performed By: #### C BC #### [facility] [address] [place] [address] Dr. Vangie Devine Platelet mean volume (Bld) [Entitic vol] 11.7 fL Normal 9.5-13.5 [facility] Comment on above: Performed By: #### C BC #### [facility] [address] [place] [address] Dr. Vangie Devine PLT 176 103/ul Normal 150-450 [facility] Comment on above: Performed By: #### C BC #### [facility] [address] [place] [address] Dr. Vangie Devine RBC 4.66 106/ul Normal 4.20-5.40 [facility] Comment on above: Performed By: #### C BC #### [facility] [address] [place] [address] Dr. Vangie Devine WBC 8.7 103/ul Normal 4.0-11.0 [facility] Comment on above: Performed By: #### C BC #### [facility] [address] [address] [address] Vangie Devine PROF CHEM 8 (BAS METB)on Anion gap [Moles/Vol] 13.9 mmol/L Normal [facility] Comment on above: Performed By: #### C BC #### [facility] [address] [place] [address] Dr. Vangie Devine Calcium [Mass/Vol] 9.2 mg/dL Normal 8.5-10.1 [facility] Comment on above: Performed By: #### C BC #### [facility] [address] [place] [address] Dr. Vangie Devine Chloride [Moles/Vol] 101 mmol/L Normal 98-107 [facility] Comment on above: Performed By: #### C BC #### [facility] [address] [place] [address] Dr. Vangie Devine CO2 [Moles/Vol] 24.2 mmol/L Normal 21.0-32.0 [facility] Comment on above: Performed By: #### C BC #### [facility] [address] [place] [address] Dr. Vangie Devine Creatinine [Mass/Vol] 0.87 mg/dL Normal 0.55-1.02 [facility] Comment on above: Performed By: #### C BC #### [facility] [address] [place] [address] Dr. Vangie Devine EGFR-AF SPANISH >60 Normal >=60 [facility] Comment on above: Performed By: #### C BC #### [facility] [address] [place] [address] Dr. Vangie Devine EGFR-NON AF SPANISH >60 Normal >=60 [facility] Comment on above: Performed By: #### C BC #### [facility] [address] [place] [address] Dr. Vangie eDvine Glucose [Mass/Vol] 89 mg/dL Normal 74-106 [facility] Comment on above: Performed By: #### C BC #### [facility] [address] [place] [address] Dr. Vangie Devine Potassium [Moles/Vol] 4.1 mmol/L Normal 3.5-5.1 [facility] Comment on above: Performed By: #### C BC #### [facility] [address] [place] [address] Dr. Vangie Devine Sodium [Moles/Vol] 135 mmol/L Critically low 136-145 [facility] Comment on above: Performed By: #### C BC #### [facility] [address] [address] [address] Vangie Devine Urea nitrogen [Mass/Vol] 9.0 mg/dL Normal 7.0-18.0 [facility] Comment on above: Performed By: #### C BC #### [facility] [address] [place] [address] Dr. Vangie Devine Urea nitrogen/Creatinine [Mass ratio] 10.3 mg/mg Normal [facility] Comment on above: Performed By: #### C BC #### [facility] [address] [place] [address] Dr. Vangie Devine PROTIMEon 05-12-2022 INR Coag (PPP) [Relative time] 1.96 {INR} Normal [facility] Comment on above: Performed By: #### P T #### [facility] [address] [place] [address] Dr. Vangie Devine INR GUIDELINES SEE BELOW Normal [facility] Comment on above: Result Comment: MARY ANN RED INR: 2.0 - 3.0 CONDITIONS NOT LISTED BELOW 2.5 - 3.5 FOR PROSTHETIC HEART VALVE REPLACEMENT 2.5 - 3.5 RECURRENT THROMBOSIS Performed By: #### P T #### [facility] [address] [place] [address] Dr. Vangie Devine PT Coag (PPP) [Time] 20.3 s Critically high 9.0-11.6 [facility] Comment on above: Performed By: #### P T #### [facility] [address] [place] [address] Dr. Vangie Devine T4, T3U, FTI LABCORPon 05-07 Free Thyroxine Index 4.7 Normal 1.2-4.9 [facility] Comment on above: Performed By: #### T HYLC #### [facility] [address] [address] [address] Vangie Devine T3 Uptake 34 % Normal 24-39 [facility] Comment on above: Performed By: #### T HYLC #### [facility] [address] [address] [address] Vangie Devine T4 [Mass/Vol] 13.8 ug/dL Critically high 4.5-12.0 [facility] Comment on above: Performed By: #### T HYLC #### [facility] [address] [place] [address] Dr. Vangie Devine TSHon 05-06-2022 TSH 0.063 uIU/mL Critically low 0.358-3.740 [facility] Comment on above: Performed By: #### T SH #### [facility] [address] [place] [address] Dr. Vangie Devine ECHOCARDIO M/2D COMPLETEon 0 03-31-2022 ECHOCARDIO M/2D COMPLETE Patient: JAVIER LINK Exam Date: 03/31/2022 : 1970 Gender:F Ordering : DR DEENA BENTON M.D. Admission #: [id number] Family : Order #: [id number] CLICK HERE TO VIEW EXAM ECHOCARDIOGRAM REPORT [...] M.D. on 03/31/2022 at 18:35 Normal [facility] CBC AUTO DIFFon 03-28-2022 BASO # 0.1 103/ul Normal 0.0-0.1 [facility] Comment on above: Performed By: #### C BC #### [facility] [address] [address] [address] Vangie Devine Basophils/100 WBC (Bld) 0.6 % Normal 0.2-2.0 [facility] Comment on above: Performed By: #### C BC #### [facility] [address] [address] [address] Vangie Devine EO # 0.2 103/ul Normal 0.0-0.7 [facility] Comment on above: Performed By: #### C BC #### [facility] [address] [address] [address] Vangie Devine Eosinophils/100 WBC (Bld) 2.0 % Normal 0.9-7.0 [facility] Comment on above: Performed By: #### C BC #### [facility] [address] [address] [address] Vangie Devine Erythrocyte distribution width (RBC) [Ratio] 12.7 % Normal 11.0-15.0 [facility] Comment on above: Performed By: #### C BC #### [facility] [address] [place] [address] Dr. Vangie Devine Hematocrit (Bld) [Volume fraction] 42.6 % Normal 36.0-48.0 [facility] Comment on above: Performed By: #### C BC #### [facility] [address] [place] [address] Dr. Vangie Devine Hemoglobin (Bld) [Mass/Vol] 13.9 g/dL Normal 12.0-16.0 [facility] Comment on above: Performed By: #### C BC #### [facility] [address] [place] [address] Dr. Vangie Devine IG # 0.03 10e3/ul Normal 0.00-0.03 [facility] Comment on above: Performed By: #### C BC #### [facility] [address] [place] [address] Dr. Vangie Devine IG % 0.4 % Normal 0.0-0.5 [facility] Comment on above: Performed By: #### C BC #### [facility] [address] [place] [address] Dr. Vangie Devine LYMPH # 2.3 103/ul Normal 1.2-3.8 [facility] Comment on above: Performed By: #### C BC #### [facility] [address] [place] [address] Dr. Vangie Devine Lymphocytes/100 WBC (Bld) 28.7 % Normal 20.5-60.0 [facility] Comment on above: Performed By: #### C BC #### [facility] [address] [place] [address] Dr. Vangie Devine MANUAL DIFF REQ NO Normal [facility] Comment on above: Performed By: #### C BC #### [facility] [address] [place] [address] Dr. Vangie Devine MCH (RBC) [Entitic mass] 31.0 pg Normal 26.7-34.0 [facility] Comment on above: Performed By: #### C BC #### [facility] [address] [address] [address] Vangie Devine MCHC (RBC) [Mass/Vol] 32.6 g/dL Normal 29.9-35.2 [facility] Comment on above: Performed By: #### C BC #### [facility] [address] [place] [address] Dr. Vangie Devine MCV (RBC) [Entitic vol] 95.1 fL Normal 81.0-99.0 [facility] Comment on above: Performed By: #### C BC #### [facility] [address] [place] [address] Dr. Vangie Devine MONO # 0.5 103/ul Normal 0.3-0.8 [facility] Comment on above: Performed By: #### C BC #### [facility] [address] [place] [address] Dr. Vangie Devine Monocytes/100 WBC (Bld) 6.8 % Normal 1.7-12.0 [facility] Comment on above: Performed By: #### C BC #### [facility] [address] [place] [address] Dr. Vangie Devine NEUT # 4.9 103/ul Normal 1.4-6.5 [facility] Comment on above: Performed By: #### C BC #### [facility] [address] [place] [address] Dr. Vangie Devine Neutrophils/100 WBC (Bld) 61.5 % Normal 43.0-75.0 [facility] Comment on above: Performed By: #### C BC #### [facility] [address] [place] [address] Dr. Vangie Devine Platelet mean volume (Bld) [Entitic vol] 11.0 fL Normal 9.5-13.5 [facility] Comment on above: Performed By: #### C BC #### [facility] [address] [place] [address] Dr. Vangie Devine PLT 224 103/ul Normal 150-450 [facility] Comment on above: Performed By: #### C BC #### [facility] [address] [address] [address] Vangie Devine RBC 4.48 106/ul Normal 4.20-5.40 [facility] Comment on above: Performed By: #### C BC #### [facility] [address] [address] [address] Vangie Devine WBC 7.9 103/ul Normal 4.0-11.0 [facility] Comment on above: Performed By: #### C BC #### [facility] [address] [place] [address] Dr. Vangie Devine LIPID PROFILEon 03-28-2022 CHOL-HDL RATIO NORM SEE BELOW Normal [facility] Comment on above: Result Comment: 3.3 - 4.4 LOW RISK 4.4 - 7.1 AVERAGE RISK 7.1 - 11.0 MODERATE RISK >11.0 HIGH RISK Performed By: #### C BC #### [facility] [address] [place] [address] Dr. Vangie Devine Cholesterol [Mass/Vol] 103 mg/dL Normal <=200 [facility] Comment on above: Performed By: #### C BC #### [facility] [address] [place] [address] Dr. Vangie eDvine Cholesterol in HDL [Mass/Vol] 39 mg/dL Critically low 40-60 [facility] Comment on above: Performed By: #### C BC #### [facility] [address] [address] [address] Vangie Devine Cholesterol in LDL [Mass/Vol] 46.8 mg/dL Normal [facility] Comment on above: Performed By: #### C BC #### [facility] [address] [address] [address] Vangie Devine Cholesterol.total/Chol esterol in HDL [Mass ratio] 2.6 {ratio} Normal [facility] Comment on above: Performed By: #### C BC #### [facility] [address] [place] [address] Dr. Vangie Devine HDL NORMAL > or = 60 mg/dl - LO W CARDIOVASCULAR RISK <40 mg/dl - HIGH CARDIOVASCULAR RISK Normal [facility] Comment on above: Performed By: #### C BC #### [facility] [address] [address] [address] Vangie Devine LDL CALC NORMAL SEE BELOW Normal [facility] Comment on above: Result Comment: <100 mg/dl OPTIMAL 100 - 129 mg/dl NEAR OR ABOVE OPTIMAL 130 - 159 mg/dl BORDERLINE HIGH 160 - 189 mg/dl HIGH >190 mg/dl VERY HIGH Performed By: #### C BC #### [facility] [address] [address] [address] Vangie Devine Triglyceride [Mass/Vol] 86 mg/dL Normal <=150 [facility] Comment on above: Performed By: #### C BC #### [facility] [facility] [address] [address] [address] Vangie Devine VLDL CALC 17.2 mg/dL Normal [facility] Comment on above: Performed By: #### C BC #### [facility] [address] [place] [address] Dr. Vangie Devine PROF 14(COMP METB)on 022 Albumin [Mass/Vol] 3.5 g/dL Normal 3.4-5.0 [facility] Comment on above: Performed By: #### C BC #### [facility] [address] [place] [address] Dr. Vangie Devine Albumin/Globulin [Mass ratio] 0.9 {ratio} Normal [facility] Comment on above: Performed By: #### C BC #### [facility] [address] [place] [address] Dr. Vangie Devine ALP [Catalytic activity/Vol] 127 U/L Critically high 46-116 [facility] Comment on above: Performed By: #### C BC #### [facility] [address] [place] [address] Dr. Vangie Devine ALT [Catalytic activity/Vol] 29 U/L Normal 14-59 [facility] Comment on above: Performed By: #### C BC #### [facility] [address] [place] [address] Dr. Vangie Devine Anion gap [Moles/Vol] 15.3 mmol/L Normal [facility] Comment on above: Performed By: #### C BC #### [facility] [address] [place] [address] Dr. Vangie Devine AST [Catalytic activity/Vol] 21 U/L Normal 15-37 [facility] Comment on above: Performed By: #### C BC #### [facility] [address] [address] [address] Vangie Devine Bilirubin [Mass/Vol] 0.5 mg/dL Normal 0.2-1.0 [facility] Comment on above: Performed By: #### C BC #### [facility] [address] [place] [address] Dr. Vangie Devine Calcium [Mass/Vol] 8.9 mg/dL Normal 8.5-10.1 [facility] Comment on above: Performed By: #### C BC #### [facility] [address] [place] [address] Dr. Vangie Devine Chloride [Moles/Vol] 101 mmol/L Normal 98-107 [facility] Comment on above: Performed By: #### C BC #### [facility] [address] [place] [address] Dr. Vangie Devine CO2 [Moles/Vol] 25.8 mmol/L Normal 21.0-32.0 [facility] Comment on above: Performed By: #### C BC #### [facility] [address] [place] [address] Dr. Vangie Devine Creatinine [Mass/Vol] 0.89 mg/dL Normal 0.55-1.02 [facility] Comment on above: Performed By: #### C BC #### [facility] [address] [place] [address] Dr. Vangie Devine EGFR-AF SPANISH >60 Normal >=60 [facility] Comment on above: Performed By: #### C BC #### [facility] [address] [place] [address] Dr. Vangie Devine EGFR-NON AF SPANISH >60 Normal >=60 [facility] Comment on above: Performed By: #### C BC #### [facility] [address] [address] [address] Vangie Devine Globulin (S) [Mass/Vol] 4.1 g/dL Normal [facility] Comment on above: Performed By: #### C BC #### [facility] [address] [address] [address] Vangie Devine Glucose [Mass/Vol] 94 mg/dL Normal 74-106 [facility] Comment on above: Performed By: #### C BC #### [facility] [address] [address] [address] Vangie Devine Potassium [Moles/Vol] 5.1 mmol/L Normal 3.5-5.1 [facility] Comment on above: Performed By: #### C BC #### [facility] [address] [place] [address] Dr. Vangie Devine Protein [Mass/Vol] 7.6 g/dL Normal 6.4-8.2 [facility] Comment on above: Performed By: #### C BC #### [facility] [address] [place] [address] Dr. Vangie Devine Sodium [Moles/Vol] 137 mmol/L Normal 136-145 [facility] Comment on above: Performed By: #### C BC #### [facility] [address] [place] [address] Dr. Vangie Devine Urea nitrogen [Mass/Vol] 9.0 mg/dL Normal 7.0-18.0 [facility] Comment on above: Performed By: #### C BC #### [facility] [address] [place] [address] Dr. Vangie Devine Urea nitrogen/Creatinine [Mass ratio] 10.1 mg/mg Normal [facility] Comment on above: Performed By: #### C BC #### [facility] [address] [place] [address] Dr. Vangie Devine Cardiac Stress Teston 2021 Cardiac Stress Test [address], [address], [place] [address] Exercise Stress Test Patient Name: JAVIER Ordering Physician: [id number] Nolan Garibay DO [facility] Study Date: 01/26/2022 Reading Physician: [id number] Myke Levin MD MRN/PID: [id number] Supervising [id number] Myke Levin Physician: Accession/Order#: [id number] Referring Physician: [id number] NOLAN GARIBAY Date of : 1970 PCP: Gender: F Fellow: Height: 147.32 cm Nurse: Joe Elmore RN Weight: 84.37 kg Histopathology Technician: ADE BSA: 1.77 m2 Technologist: BMI: 38.87 kg/m2 Additional Staff: Age: 52 years cc report to: Patient Location: cc report to: Marleen Garibay DO Study Type: Cardiac Stress Test Diagnosis/ICD: I21.09-ST elevation (STEMI) myocardial infarction involving other coronary artery of anterior wall; I51.3-Intracardiac thrombosis, not elsewhere classified Indication: [place] Procedure/CPT: Stress Test Interpretation-[id number]; Stress Test Supervision-[id number] Falls Risk: Low: Patient has low risk [...] rhythm. Normal sinus rhythm with anteroseptal wall [place]. Stress Stage Data: + +-- -+------+-------+ HR [...] The adequate level of stress was achieved. [id number] Myke Levin MD Electronically signed on 01/26/2022 at 5:41:45 PM Final Normal [facility] Cardiac Stress Test MP-No rth [facility]Jackelyn y 250 DO Work Phone: Tobacco Screening.on 022 Adult depression screening assessment Yes [facility] syed [facility]-Jackelyn y 250 DO Work Phone: [phone] Adult depression screening assessment No [facility]-Jackelyn y 250 DO Work Phone: [phone] Fall risk assessment c) Not medically indicated [facility] HeartElsie hurtado 250 DO Work Phone: [phone] Tobacco use status CP b) No [facility] HeartElsie y 250 DO Work Phone: [phone] Tobacco Screening. 0-Not at all [facility] HeartElsie y 250 DO Work Phone: [phone] Tobacco Screening. 1-Several days [facility] Cleo hurtado 250 DO Work Phone: [phone] Tobacco Screening. 2-More than half the days [facility] Cleo hurtado 250 DO Work Phone: [phone] Tobacco Screening. Not difficult at all [facility] HeartElsie hurtado 250 DO Work Phone: Laboratory - Coagulationon 0 01-17-2022 INR Coag (Bld) [Relative time] 1.56 {INR} [facility] Cleo hurtado 250 DO Work Phone: PROTIMEon 01-17-2022 INR Coag (PPP) [Relative time] 1.56 {INR} Normal [facility] Comment on above: Performed By: #### C JOBY #### [facility] [address] [place] [address] Dr. Vangie Devine INR GUIDELINES SEE BELOW Normal [facility] Comment on above: Result Comment: MARY ANN RED INR: 2.0 - 3.0 CONDITIONS NOT LISTED BELOW 2.5 - 3.5 FOR PROSTHETIC HEART VALVE REPLACEMENT 2.5 - 3.5 RECURRENT THROMBOSIS Performed By: #### C JOBY #### [facility] [address] [place] [address] Dr. Vangie Devine PT Coag (PPP) [Time] 16.4 s Critically high 9.0-11.6 [facility] Comment on above: Performed By: #### C [facility] #### [facility] [address] [address] [address] Vangie Devine Activated partial thrombopla stin time (aPTT) in platelet poor plasma by coagulation aOrdered By: Isidra Garibay on 01-14-2022 aPTT Coag (PPP) [Time] 34.5 s 25.1-36.5 [facility] Creatinine and Glomerular fi ltration rate.predicted panel (S/P/Bld)Ordered By: Isidra Garibay on 01-14-2022 Creatinine [Mass/Vol] 0.69 mg/dL 0.44-1.03 [facility] Estimated glomerular filtrat ion rate (GFR) non- AmericanOrdered By: Isidra Garibay on 01-14-2022 GFR/1.73 sq M.predicted among non-blacks MDRD (S/P/Bld) [Vol rate/Area] > 60 mL/Min [facility] Laboratory - CoagulationOrde red By: Isidra Garibay on 01-14-2022 PT Coag (PPP) [Time] 17.7 s 9.0-12.9 [facility] No Panel InformationOrdered By: Isidra Garibay on 01-14-2022 Estimated GFR () > 60 mL/Min [facility] Comment on above: GFR estimated refere nce range: According to KDOQI guidelines, <60 ml/min/1.73m2 is sufficient to diagnose a patient with chronic kidney disease. Pharmacy Creatinine Clearance (Chem 94.39 [facility] Platelet poor plasma interna tional normalized ratio (INR) by coagulation assay (relatOrdered By: Isidra Garibay on 01-14-2022 INR Coag (PPP) [Relative time] 1.6 {INR} [facility] Comment on above: INR Therapeutic [...] 01-14-2022 Calcium [Mass/Vol] 8.5 mg/dL 8.2-10.2 [facility] Serum or plasma chloride francesca surement (moles/volume)Ordered By: Isidra Garibay on 01-14-2022 Chloride [Moles/Vol] 99 mmol/L 95-114 [facility] Serum or plasma glucose ivana urement (mass/volume)Ordered By: Isidra Garibay on 01-14-2022 Glucose [Mass/Vol] 101 mg/dL 70-100 [facility] Comment on above: ADA recommended refe rence range Random Glucose Reference Range is dependent on time and content of last meal. Glucose of more than 200 mg/dL in a nonstressed, ambulatory subject supports the diagnosis of Diabetes Mellitus. Serum or plasma potassium me asurement (moles/volume)Ordered By: Isidra Garibay on 01-14-2022 Potassium [Moles/Vol] 4.2 mmol/L 3.5-5.1 [facility] Serum or plasma sodium measu rement (moles/volume)Ordered By: Isidra Garibay on 01-14-2022 Sodium [Moles/Vol] 129 mmol/L 136-146 [facility] Serum or plasma total carbon dioxide measurement (moles/volume)Ordered By: Isidra Garibay on 01-14-2022 CO2 [Moles/Vol] 21.8 mmol/L 22.0-30.0 [facility] Serum or plasma urea nitroge n measurement (mass/volume)Ordered By: Isidra Garibay on 01-14-2022 Urea nitrogen [Mass/Vol] 8 mg/dL 9-23 [facility] Albumin [Mass/volume] in Ser um or PlasmaOrdered By: Isidra Garibay on 01-11-2022 Albumin [Mass/Vol] 2.9 g/dL 3.2-5.5 [facility] Cholesterol [Mass/volume] in Serum or PlasmaOrdered By: Isidra Garibay on 01-11-2022 Cholesterol [Mass/Vol] 109 mg/dL 140-200 [facility] Comment on above: Chol less than 200 m g/dl low risk Chol 201-239 mg/dl borderline risk Chol 240 mg/dl and greater high risk Cholesterol in LDL Calc [Mas s/Vol]Ordered By: Isidra Garibay on 01-11-2022 Cholesterol in LDL [Mass/Vol] 49 mg/dL 0-100 [facility] Comment on above: LDL ATP III CLASSIFI CATION LDL less than 100 mg/dL Optimal LDL 100-129 mg/dL Near or above optimal LDL 130-159 mg/dL Borderline high LDL 160-189 mg/dL High LDL greater than 189 mg/dL Very high Cholesterol in VLDL Calc [Ma ss/Vol]Ordered By: Isidra Garibay on 01-11-2022 Cholesterol in VLDL [Mass/Vol] 16 mg/dL [facility] Globulin Calc (S) [Mass/Vol] Ordered By: Isidra Garibay on 01-11-2022 Globulin (S) [Mass/Vol] 3.1 g/dL [facility] Glucose Glucometer (BldC) [M ass/Vol]Ordered By: Isidra Garibay on 01-11-2022 Glucose [Mass/Vol] 118 mg/dL [facility] Comment on above: Random Glucose Refer ence Range is dependent on time and content of last meal. Glucose of more than 200 mg/dL in a nonstressed, ambulatory subject supports the diagnosis of Diabetes Mellitus. No Panel InformationOrdered By: Isidra Garibay on 01-11-2022 Bedside Glucose Comment Glu2: cleaned meter [facility] Protein [Mass/volume] in Ser um or PlasmaOrdered By: Isidra Garibay on 01-11-2022 Protein [Mass/Vol] 6.0 g/dL 6.1-7.9 [facility] Serum or plasma alanine gore otransferase measurement without P-5'-P (enzymatic activiOrdered By: Isidra Garibay on 01-11-2022 ALT No additional P-5'-P [Catalytic activity/Vol] 58 U/L 1060 [facility] Serum or plasma albumin/glob ulin mass ratioOrdered By: Isidra Garibay on 01-11-2022 Albumin/Globulin [Mass ratio] 0.9 {ratio} [facility] Serum or plasma alkaline carl sphatase measurement (enzymatic activity/volume)Ordered By: Isidra Garibay on 01-11-2022 ALP [Catalytic activity/Vol] 85 U/L 32-92 [facility] Serum or plasma aspartate am inotransferase measurement (enzymatic activity/volume)Ordered By: Isidra Garibay on 01-11-2022 AST [Catalytic activity/Vol] 212 U/L 10-42 [facility] Serum or plasma high density lipoprotein (HDL) cholesterol measurementOrdered By: Isidra Garibay on 01-11-2022 Cholesterol in HDL [Mass/Vol] 43 mg/dL 35-85 [facility] Comment on above: HDL CHOL ATP-III CLA SSIFICATION Cardiovascular Risk HDL > or equal to 60 mg/dL LOW HDL < 40 mg/dL HIGH Serum or plasma total biliru bin measurement (mass/volume)Ordered By: Isidra Garibay on 01-11-2022 Bilirubin [Mass/Vol] 0.6 mg/dL 0.3-1.2 [facility] Serum or plasma total choles terol/high density lipoprotein (HDL) cholesterol mass ratOrdered By: Isidra Garibay on 01-11-2022 Cholesterol.total/Chol esterol in HDL [Mass ratio] 2.5 {ratio} [facility] Triglyceride [Mass/volume] i n Serum or PlasmaOrdered By: Isidra Garibay on 01-11-2022 Triglyceride [Mass/Vol] 83 mg/dL 35-149 [facility] Comment on above: TRIG ATP [...] 01-11-2022 Troponin I.cardiac High sensitivity method [Mass/Vol] 72742 pg/mL 0-15 [facility] Comment on above: Results called at 0805 on 01/11/22 AMYLASEon 01-10-2022 Amylase [Catalytic activity/Vol] 37 U/L Normal 25-115 [facility] Comment on above: Performed By: #### C BC #### [facility] [address] [place] [address] Dr. Vangie Devine CARDIAC CHASTITY ADMITon 022 CK [Catalytic activity/Vol] 206 U/L Critically high 26-192 [facility] Comment on above: Performed By: #### C BC #### [facility] [address] [address] [address] Vangie Devine CK.MB [Mass/Vol] 3.65 ng/mL Critically high <=3.60 [facility] Comment on above: Performed By: #### C BC #### [facility] [address] [address] [address] Vangie Devine HSTROP 80.4 pg/mL Critically high 4.0-51.3 [facility] Comment on above: Result Comment: CUT- OFF POINTS HAVE BEEN ESTABLISHED BASED ON THE FOURTH UNIVERSAL DEFINITIONS OF MYOCARDIAL INFARCTION. THE UPPER REFERENCE LIMIT (URL) OF TROPONIN, DEFINED THE 99TH PERCENTILE OF cTnI DISTRIBUTION IN A REFERENCE POPULATION, HAS BEEN CONFIRMED THE DECISION THRESHOLD FOR [place] DIAGNOSIS. Performed By: #### C BC #### [facility] [address] [address] [address] Vangie Devine AJ 119 ng/mL Critically high 9-82 [facility] Comment on above: Performed By: #### C BC #### [facility] [address] [address] [address] Vangie Devine CBC W MANUAL DIFFon 01-11-20 22 ATYPICAL LYMPH # 0.93 103/ul Normal [facility] Comment on above: Performed By: #### C JANNETTEMAN #### [facility] [address] [address] [address] Vangie Devine ATYPICAL LYMPH % 3 % Normal [facility] Comment on above: Performed By: #### C BCMAN #### [facility] [address] [address] [address] Vangie Devine BAND # 1.6 103/ul Critically high 0.0-0.3 [facility] Comment on above: Performed By: #### C JANNETTEMAN #### [facility] [address] [address] [address] Vangie Devine BAND % 5 % Normal 0-5 [facility] Comment on above: Performed By: #### C BCHERIBERTO #### [facility] [address] [place] [address] Dr. Vangie Devine BASOM # 0.00 103/ul Normal 0.00-0.10 [facility] Comment on above: Performed By: #### C BCHERIBERTO #### [facility] [address] [place] [address] Dr. Vangie Devine BASOM % 0.0 % Critically low 0.2-2.0 [facility] Comment on above: Performed By: #### C BCHERIBERTO #### [facility] [address] [place] [address] Dr. Vangie Devine BLAST # 0.0 103/ul Normal [facility] Comment on above: Performed By: #### C BCHERIBERTO #### [facility] [address] [place] [address] Dr. Vangie Devine BLAST % Normal [facility] Comment on above: Performed By: #### C BCHERIBERTO #### [facility] [address] [place] [address] Dr. Vangie Devine CORRECTED WBC Normal 4.0-11.0 [facility] Comment on above: Performed By: #### C BCHERIBERTO #### [facility] [address] [place] [address] Dr. Vangie Devine EOS # 0.00 103/ul Normal 0.00-0.70 [facility] Comment on above: Performed By: #### C BCHERIBERTO #### [facility] [address] [place] [address] Dr. Vangie Devine EOS% 0.0 % Critically low 0.9-7.0 [facility] Comment on above: Performed By: #### C BCHERIBERTO #### [facility] [address] [place] [address] Dr. Vangie Devine HCT 42.0 % Normal 36.0-48.0 [facility] Comment on above: Performed By: #### C BCHERIBERTO #### [facility] [address] [place] [address] Dr. Vangie Devine HGB 14.6 g/dl Normal 12.0-16.0 [facility] Comment on above: Performed By: #### C BCHERIBERTO #### [facility] [address] [address] [address] Vangie Devine HYPERSEG NEUT 1+ Normal [facility] Comment on above: Performed By: #### C BCHERIBERTO #### [facility] [address] [address] [address] Vangie Devine LYMPHM # 4.03 103/ul Critically high 1.20-3.80 [facility] Comment on above: Performed By: #### C BCHERIBERTO #### [facility] [address] [address] [address] Vangie Devine LYMPHM% 13.0 % Critically low 20.5-60.0 [facility] Comment on above: Performed By: #### C JOBY #### [facility] [address] [place] [address] Dr. Vangie Devine MCH 32.7 pg Normal 26.7-34.0 [facility] Comment on above: Performed By: #### C JOBY #### [facility] [address] [address] [address] Vangie Devine MCHC 34.8 g/dl Normal 29.9-35.2 [facility] Comment on above: Performed By: #### C JOBY #### [facility] [address] [address] [address] Vangie Devine MCV 94.2 fL Normal 81.0-99.0 [facility] Comment on above: Performed By: #### C BCHERIBERTO #### [facility] [address] [address] [address] Vangie Devine METAMYELOCYTE # 1.2 103/ul Normal [facility] Comment on above: Performed By: #### C BCHERIBERTO #### [facility] [address] [place] [address] Dr. Vangie Devine METAMYELOCYTE % 4 % Normal [facility] Comment on above: Performed By: #### C BCHERIBERTO #### [facility] [address] [address] [address] Vangie Devine MONOM# 0.93 103/ul Critically high 0.30-0.80 [facility] Comment on above: Performed By: #### C JOBY #### [facility] [address] [place] [address] Dr. Vangie Devine MONOM% 3.0 % Normal 1.7-12.0 [facility] Comment on above: Performed By: #### C JOBY #### [facility] [address] [place] [address] Dr. Vangie Devine MPV 10.4 fL Normal 9.5-13.5 [facility] Comment on above: Performed By: #### C JOBY #### [facility] [address] [place] [address] Dr. Vangie Devine MYELOCYTE # 0.9 103/ul Normal [facility] Comment on above: Performed By: #### C JOBY #### [facility] [address] [place] [address] Dr. Vangie Devine MYELOCYTE % 3 % Normal [facility] Comment on above: Performed By: #### C JOBY #### [facility] [address] [place] [address] Dr. Vangie Devine NRBC 0 Normal [facility] Comment on above: Performed By: #### C JOBY #### [facility] [address] [place] [address] Dr. Vangie Devine PLT 460 103/ul Critically high 150-450 [facility] Comment on above: Performed By: #### C JOBY #### [facility] [address] [place] [address] Dr. Vangie Devine RBC 4.46 106/ul Normal 4.20-5.40 [facility] Comment on above: Performed By: #### C JOBY #### [facility] [address] [place] [address] Dr. Vangie Devine RDW 12.6 % Normal 11.0-15.0 [facility] Comment on above: Performed By: #### C JOBY #### [facility] [address] [address] [address] Vangie Devine SEG # 21.39 103/ul Critically high 1.40-6.50 [facility] Comment on above: Performed By: #### C JOBY #### [facility] [address] [address] [address] Vangie Devine SEG % 69.0 % Normal 43.0-75.0 [facility] Comment on above: Performed By: #### C JOBY #### [facility] [address] [address] [address] Vangie Devine WBC 31.0 103/ul Critically high 4.0-11.0 [facility] Comment on above: Performed By: #### C JOBY #### [facility] [address] [place] [address] Dr. Vangie Devine Covid-19 PCR ([facility])on 12-14 SARS-CoV-2 (COVID-19) RNA SAMIR+probe Ql (Unsp spec) Not detected Normal NOT DETECTED [facility] Comment on above: Result Comment: When diagnostic [...] for this test is supported by the [employer]'s declaration that [...] used). Performed By: #### C JOBY #### [facility] [address] [place] [address] Dr. Vangie Devine LIPASEon 01-10-2022 Lipase [Catalytic activity/Vol] 63.0 U/L Critically low 73.0-393.0 [facility] Comment on above: Performed By: #### C BCMAN #### [facility] [address] [address] [address] Vangie Devine Laboratory - Chemistry and C hemistry - challengeOrdered By: Isidra Garibay on 01-10-2022 Magnesium [Mass/Vol] 2.0 mg/dL 1.6-2.6 [facility] PROTIMEon 01-10-2022 INR Coag (PPP) [Relative time] 1.01 {INR} Normal [facility] Comment on above: Performed By: #### P TT, PT #### [facility] [address] [place] [address] Dr. Vangie Devine INR GUIDELINES SEE BELOW Normal [facility] Comment on above: Result Comment: MARY ANN RED INR: 2.0 - 3.0 CONDITIONS NOT LISTED BELOW 2.5 - 3.5 FOR PROSTHETIC HEART VALVE REPLACEMENT 2.5 - 3.5 RECURRENT THROMBOSIS Performed By: #### P TT, PT #### [facility] [address] [place] [address] Dr. Vangie Devine PT Coag (PPP) [Time] 10.9 s Normal 9.0-11.6 [facility] Comment on above: Performed By: #### P TT, PT #### [facility] [address] [place] [address] Dr. Vangie Devine PTTon 01-10-2022 aPTT Coag (Bld) [Time] 26.3 s Normal 22.3-36.2 [facility] Comment on above: Performed By: #### P TT, PT #### [facility] [address] [place] [address] Dr. Vangie Devine XR CHEST 1 Von 01-10-2022 XR CHEST 1 V CLINICAL HISTORY: Chest pain COMPARISON: Chest radiograph 12/20/2015 at [facility]. FINDINGS: Portable AP view of the chest obtained. Cardiomediastinal silhouette is normal. Lungs are clear, no evidence of infiltrate, suspicious nodule, or mass. No evidence of significant pleural fluid on this portable projection. No acute bony abnormality. IMPRESSION: No acute abnormality. Electronically authenticated by: MADELAINE ALVA Date: 2022-01-10 10:16 Normal [facility] WRIST LEFT 3 VWSon 2 WRIST LEFT 3 S [facility] Department of Radiology [address] [place] [phone] Patient Name: JAVIER LINK : 1970 Sex: F Age: Race: White Pt. 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 Electronically signed: QUANG RUFFIN. Transcribed by: [email or web address], User Resident: Electronically Signed by: QUANG RUFFIN @ 09/10/2021 09:04 AM Normal [facility] Comment on above: Order Comment: Evalu ate Operative Reporton Operative Report MR#: [id number] S [facility] Pt. Name: Javier Link Room #: 0C Discharge Date: Birthdate: 1970 OPERATIVE REPORT DATE OF SURGERY: 07/22/2021 SURGEON: Rafi Biswas M.D. PREOPERATIVE DIAGNOSIS: Kienbock's disease, stage IV, left lunate. POSTOPERATIVE DIAGNOSIS: Kienbock's disease, stage IV, left lunate. PROCEDURE: Proximal row carpectomy, left wrist. DRYING OVEN TENDER: Maricarmen Liao M.D. ANESTHESIA: Regional. INDICATION FOR [...] took some 3-0 TiCron and put a odvdwx-cb-urljg suture in that dorsal portion of the TFCC right near the ulnar styloid where the small tear was. The volar part of the TFCC looks good. Once that was in, the dorsal capsule was closed with multiple sleyyw-mi-nzcsw sutures of 2-0 Vicryl. The subcutaneous tissue [...] A/Rafi Biswas M.D. Date Trans: 07/22/2021 10:32 A/destinee [id number] cc: Moriah Mack M.D. [address] [place] [address]. [facility] [id number] Normal [facility] POC GLUCOSE LABon 07-22-2021 Glucose [Mass/Vol] 85 mg/dL Normal 70-100 [facility] Comment on above: Performed By: #### 8 [id number] #### [address] MRI WRIST WO CONTRAST RIGHTo 06-09-2021 MRI WRIST WO CONTRAST RIGHT [facility] Department of Radiology [address] [place] [phone] Patient Name: JAVIER LINK : 1970 Sex: F Age: Race: White Pt. 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 Electronically signed: Liz Harp. Transcribed by: [email or web address], User Resident: Electronically Signed by: LIZ HARP @ 06/11/2021 09:46 AM Normal [facility] Comment on above: Order Comment: Evidhomero Webb's R wrist on outside x-ray, evaluate for staging and surgical planning. , Side: RIGHT WRIST LEFT 3 Son 1 WRIST LEFT 3 S [facility] Department of Radiology [address] [place] [phone] Patient Name: JAVIER LINK : 1970 Sex: F Age: Race: White Pt. 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 COMPARISON: None. IMPRESSION: 1. Subtle sclerosis lunate suggests possibility of osteonecrosis. No significant ulnar variance. 2. No acute fracture. No dislocation. Likely remote injury ulnar styloid. 3. Borderline widening scapholunate interval. 4. Multiple moderate triscaphe and radiocarpal arthritis. Electronically signed: Alonso Iglesias. Transcribed by: [email or web address], User Resident: Electronically Signed by: ALONSO IGLESIAS @ 05/19/2021 12:56 PM Normal [facility] Comment on above: Order Comment: evalu ate WRIST RIGHT 3 Son 05-18-20 21 WRIST RIGHT 3 S [facility] Department of Radiology [address] [place] [address] Patient Name: JAVIER LINK : 1970 Sex: F Age: Race: White Pt. 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 COMPARISON: None. IMPRESSION: 1. Subtle sclerosis lunate suggest osteonecrosis. 2. No acute fracture. No malalignment. No significant ulnar variance. Electronically signed: Alonso Iglesias. Transcribed by: [email or web address], User Resident: Electronically Signed by: ALONSO IGLESIAS @ 05/19/2021 12:55 PM Normal [facility] Comment on above: Order Comment: evalu ate Vital Signs Date Time Vital Sign Value Performing Clinician Facility 01-20-2022 12:07-0400 Diastolic blood pressure 58 mm[Hg] No PCP None [facility] DO Work Phone: 01-20-2022 12:07-0400 Systolic blood pressure 105 mm[Hg] No PCP None [facility] DO Work Phone: 01-20-2022 11:58-0400 Body height 147.32 cm No PCP None [facility] DO Work Phone: 01-20-2022 11:58-0400 Body mass index (BMI) [Ratio] 38.87 kg/m2 No PCP None [facility] 250 DO Work Phone: 01-20-2022 11:58-0400 Body surface area Derived from formula 1.77 m2 No PCP None [facility] DO Work Phone: 01-20-2022 11:58-0400 Body weight 84.37 kg No PCP None [facility] DO Work Phone: 01-20-2022 11:58-0400 Diastolic blood pressure 62 mm[Hg] No PCP None [facility] DO Work Phone: 01-20-2022 11:58-0400 Heart rate 60 /min No PCP None [facility] DO Work Phone: 01-20-2022 11:58-0400 Systolic blood pressure 110 mm[Hg] No PCP None [facility] DO Work Phone: 01-20-2022 11:58-0400 6 1 No PCP None [facility] DO Work Phone: Comment on above: PHQ-9 TS 01-14-2022 13:04-0400 Heart rate 74 /min DO W Clarke Bebo Work Phone: [facility] 01-14-2022 13:04-0400 Respiratory rate 20 /min DO W Clarke Bebo Work Phone: [facility] 01-14-2022 12:00-0400 Body temperature 98.4 [degF] DO W Clarke Bebo Work Phone: [facility] 01-14-2022 12:00-0400 Diastolic blood pressure 69 mm[Hg] DO W Clarke Yusufdon Work Phone: [facility] 01-14-2022 12:00-0400 SaO2% (BldA) [Mass fraction] 96 % DO W Clarke Yusufdon Work Phone: [facility] 01-14-2022 12:00-0400 Systolic blood pressure 98 mm[Hg] DO W Clarke Bebo Work Phone: [facility] 01-14-2022 04:55-0400 Body weight 85 kg DO W Clarke Bebo Work Phone: [facility] 01-12-2022 08:00-0400 Inhaled oxygen flow rate 3 L/min DO W Clarke Yusufdon Work Phone: [facility] 01-11-2022 16:45-0400 Inhaled oxygen concentration 50 % DO W Clarke Garibay Work Phone: [facility] 01-11-2022 00:00-0400 35 1 No PCP None [facility] DO Work Phone: Comment on above: [email or web address] 01-10-2022 13:01-0400 Body height 147.32 cm DO W Clarke Garibay Work Phone: [facility] 01-10-2022 13:01-0400 Body mass index (BMI) [Ratio] 39.2 kg/m2 DO W Clarke Garibay Work Phone: [facility] Encounters Encounter Date Encounter Type Care Provider Facility Start: 07-10-2024 ambulatory [facility] Start: 07-10-2024 Encounter for preprocedural cardiovascular examination [facility] Start: 07-08-2024 End: 07-08-20[facility] Start: 06-27-2024 ambulatory [facility] Start: 06-17-2024 ambulatory [facility] Start: 05-21-2024 ambulatory [facility] Start: 04-30-2024 ambulatory [facility] Start: 03-15-2024 ambulatory [facility] Start: 02-27-2024 End: 02-27-2024 ambulatory [facility] Start: 02-07-2024 ambulatory DELL WEAVER [facility] Start: 01-22-2024 ambulatory [facility] Start: 01-12-2024 End: 01-12-2024 ambulatory YELENA CRUZ [facility] Start: 07-31-2023 End: 07-31-2023 ambulatory CIRILO RUBALCAVA [facility] Start: 07-18-2023 End: 07-18-2023 ambulatory [facility] Start: 12-21-2022 End: 12-22-[address] DOCTOR [...] Start: 03-14-2022 End: 04-13-2022 ambulatory SHAIKH Sergo DECKERTu Facility:[facility] Start: 02-14-2022 End: 03-11-2022 ambulatory SHAIKH Sergo HERRERA Facility:[facility] Start: 02-02-2022 End: 05-06-[address] DOCTOR SCHWARZ Facility:[facility] Start: 01-27-2022 Chart Update No PCP None [facility] DO Work Phone: Start: 01-20-2022 End: 02-11-2022 ambulatory SHAIKH Sergo HERRERA Facility:[facility] Start: 01-20-2022 Transitional care moni clark srvc 7 day discharge No PCP None [facility] DO Work Phone: Start: 01-17-2022 End: 01-18-[address] NOLAN GARIBAY Facility:[facility] Start: 01-10-2022 End: 01-14-2022 Evaluation and management of inpatient DO W Clarke Garibay Work Phone: [facility] Start: 01-10-2022 End: 01-10-2022 ambulatory HASMUKH KATZ . Facility:[facility] Start: 07-22-2021 End: 07-23-2021 ambulatory RAFI BISWAS Facility:[facility] Procedures Date Procedure Procedure Detail Performing Clinician Start: 01-11-2022 Plain chest X-ray DO W Clarke Garibay Work Phone: Start: 01-10-2022 CL Coronary Thrombol ysis IV DO W Clarke Garibay Work Phone: Start: 01-10-2022 CL Insert IABP DO W Beverly Garibay Work Phone: Start: 01-10-2022 CL LHC [...] Nolan Garibay, Status: Pen, Time: 10:50 AM [facility] DO Work Phone: Start: 03-21-2022 FUV, Provider: Beth Hull, Status: Pen, Time: 8:30 AM FUV, Provider: Beth Hull, Status: Pen, Time: 8:30 AM [facility] DO Work Phone: Start: 03-14-2022 ECHO, Provider: LUCAS HANI ULTRASOUND 01,[id number], Status: Pen, Time: 10:45 AM ECHO, Provider: LUCAS HHVI ULTRASOUND 01,[id number], Status: Pen, Time: 10:45 AM [facility] DO Work Phone: Start: 01-26-2022 STRESS MARK, Provider : LUCAS HANI NUCLEAR 01,[id number], Status: Pen, Time: 2:00 PM STRESS MARK, Provider: LUCAS HHVI NUCLEAR 01,[id number], Status: Pen, Time: 2:00 PM [facility] DO Work Phone: Patient Education Coronary Angio plasty (DC) Angina (DC) Drug Eluting Stents [facility] Work Phone: Patient referral [facility] Work Phone: Payers Date Payer Category Payer Medicare [id number] 2019 Unknown [id number] 1970 Unknown [id number] 2.16.8 [id number] 1970 Unknown [id number] 2.16.84 0.1.229641.3.579.2.593 1970 Unknown [id number] 2.16.84 0.1.054859.3.579.2.593 1970 Unknown [id number] 2.16.84 0.1.827627.3.579.2.593 1970 Unknown [id number] 2.16.84 0.1.177742.3.579.2.593 1970 Unknown [id number] 2.16.84 0.1.084320.3.579.2.593 1970 Unknown [id number] 2.16.84 0.1.882936.3.579.2.593 1970 Unknown [id number] 2.16.84 0.1.191298.3.579.2.593 1970 Unknown [id number] 2.16.84 0.1.698402.3.579.2.593 1970 Unknown [id number] 2.16.84 0.1.521276.3.579.2.593 1970 Unknown [id number] 2.16.84 0.1.345744.3.579.2.593 1970 Unknown [id number] 2.16.84 0.1.785283.3.579.2.593 1970 Unknown [id number] 2.16.84 0.1.543024.3.579.2.593 1971 Unknown [id number] 2.16.84 0.1.702423.3.579.2.593 1970 Unknown [id number] 2.16.84 0.1.596165.3.579.2.593 1970 Unknown [id number] 2.16.84 0.1.970133.3.579.2.593 1970 Unknown [id number] 2.16.84 0.1.324391.3.579.2.593 1970 Unknown [id number] 2.16.84 0.1.256420.3.579.2.593 1971 Unknown [id number] 2.16.84 0.1.649338.3.579.2.593 1970 Unknown [id number] 2.16.84 0.1.283333.3.579.2.593 1970 Unknown [id number] 2.16.84 0.1.781601.3.579.2.593 1958 Self-pay [id number] Unknown Unknown [id number] 2.16.84 0.1.556357.3.579.2.593 Unknown [id number] 2.16.8 40.1.789443.3.579.2.531 Social History Date Type Detail Facility Daily caffeine consumption Daily caffeine consumption [facility] Work Phone: Comment on above: 3-4; quit 1 week ago; Start: 01-10-[address] [facility] Start: 1970 Sex Assigned At Female [facility] Medical Equipment Procedure Code Equipment Code Equipment Origin al Text Equipment Identifier Dates Drug-eluting coronary artery stent, [id number]-li lymer-coated ()[id number] FDA Start: 01-10-2022 Drug-eluting coronary artery stent, [id number]-[id number]-ym lymer-coated ()[id number] FDA Start: 01-10-2022 Goals Date Patient Goal Desired Activity /State Functional Status Date Assessment Result Facility 01-20-2022 PHQ-9 [id number] Mild (5-9) [facility] DO Work Phone: 01-14-2022 Functional status Patient at Baseline [facility] Work Phone: 01-10-2022 Functional status Disability [facility] Patient at Baseline [facility] Work Phone: Mental Status Date Assessment Result Facility 01-10-2022 Cognitive function Cognitive Sta s Patient at Baseline [facility] Work Phone: Clinical Notes 01-10-2022 to 07-08-2024 Note Date & Type Note Facility 07-08-2024 Note [place] [facility] - [facility] Subjective Javier Link is a 54 y.o. year old female patient being seen for 6 mo follow up hx of LV thrombus, CAD, and chronic systolic heart failure. She was admitted to [facility] in Apr 2024 for hypotension due to hypovolemia. PCP decreased lasix and carvedilol, and spironolactone was stopped. She restarted spironolactone about 1-2 weeks ago due to wheezing and SPEARS. This has helped her she says. Denies chest pain. Says her HR has been elevated since decreasing carvedilol. Patient Active Problem List Diagnosis Pain of [...] Social History Tobacco Use Smoking status: Former Current packs/day: 0.00 Types: Cigarettes Start date: 10/20/1987 Quit date: 10/19/2022 Years since quittin.7 Smokeless tobacco: Never Substance Use Topics Alcohol use: Not Currently Comment: occasional Drug use: Never HPI Visit of 02/07/2022: Javier is seen as a new patient. The following information is from review of the available medical record. She is a 52-year-old woman. On 01/10/2022 she presented to [facility] with STEMI and was found to have [...] is enrolled in cardiac rehab at the [facility] and doing well with that. Anticoagulation clinic at the [facility] follows her warfarin levels. Testing: ECG 01/13/2022: [...] have mild shortness of breath on exertion a (more content not included)... [facility] 01-12-2024 Note [facility] CARDIOLOGY PROGR [...] She continues with cardiac rehab exercise at [facility]. She denies chest pain, shortness of breath, [...] 52-year-old woman. On 01/10/2022 she presented to [facility] with STEMI and was found to have [...] is enrolled in cardiac rehab at the [facility] and doing well with that. Anticoagulation clinic at the [facility] follows her warfarin levels. Testing: ECG 01/13/2022: [...] 28 mm skypoint, 2.5 x 18 mm [place]. An intra-aortic balloon pump was placed. Visit [...] and le (more content not included)... [facility] 01-12-2024 Note Patient here for 6 m o follow up chronic systolic heart failure, CAD, hx of LV thrombus. Had echo in Aug 2023. She goes twice a week to cardiac rehab, and 3 times a week to [employer]. She is able to workout for 45 minutes on the [employer] without chest pain or SOB. Gets lightheaded when she bends down. Feels palpitations sometimes when lying down. Overall, doing very well. Once in awhile gets a pain in the back, between shoulder blades. Denies chest pain and SOB. Review of Systems Cardiovascular: Positive for palpitations (intermittent). Musculoskeletal: Positive for back pain. Neurological: Positive for light-headedness. All other systems reviewed and are negative. [facility] 01-12-2024 Note HTN is well-controll ed with current med regimen and renal function stable [facility] 01-12-2024 Note [facility] II-currently eu volemic without exacerbation, no activity limiting symptoms Continue GDMT-aspirin, Lipitor, Coreg, Jardiance, Entresto and Aldactone with Diuretic therapy of Lasix 40 mg daily Monitor daily weights, I&O, fluid restriction 1.5-2L/day, renal function and electrolytes- [facility] 01-12-2024 Note Coronary artery dise ase is unchanged. Continue current medications. Cardiac status will be reassessed in 6 months. Continue goal-directed medical therapy with aspirin, Lipitor, Plavix, Coreg [facility] 01-12-2024 Note Lipid abnormalities are unchanged, well controlled; PCP monitoring LFT. Pharmacotherapy as ordered. Lipids will be reassessed annually. [facility] 01-12-2024 Note No thrombus noted on last 2 TTE [facility] 07-31-2023 Note Subjective Javier Link [...] for 2023 because she is switching to [facility] Medicare. Historical: Failed Class I topical steroids, [...] safety. Call for any acute issues. [facility] 10-31-2022 Note CARDIAC STRESS TEST [...] CAD evaluation with invasive stress test. [facility] 01-13-2022 Progress note Note Date/Time January 13, 2022 3:15pm [facility] [address] [place] [address] Cardiology Progress Note Signed Patient: Javier Link MR#: [id number] : 1970 Acct:[id number] Age/Sex: 51 / F Adm Date: 2 Loc: Room: [address] [place] [address] Type : ADM IN Attending Dr: Isidra [...] 01/13/22 12:00 01/13/22 14:00 01/13/22 14:00 01/13/22 14:01/13/22 14:00 Const General: cooperative, comfortable and no [...] <Electronically signed by Isidra Garibay DO> 01/13/22 [facility] Work Phone: 1(731) 502-705706-01-2022 Progress note Author Isidra Garibay [facility] January 12, 2022 3:16pm Note Date/Time January 12, 2022 3:16p m [facility] [address] [place] [address] Cardiology Progress Note Signed Patient: Javier Link MR#: [id number] : 1970 Acct:[id number] Age/Sex: 51 / F Adm Date: 2 Loc: Room: [address] [place] [address] Type : ADM IN Attending Dr: Isidra [...] Status: Acute Documented By: Isidra Garibay DO 01/12/221513 Signed By: <Electronically signed by Isidra Garibay DO> 01/12/22 [facility] Work Phone: 1(255) 225-583305-31-2022 Progress note Author Isidra Garibay [facility] January 11, 2022 1:38pm Note Date/Time January 11, 2022 1:38p m [facility] [address] [place] [address] Cardiology Progress Note Signed Patient: Javier Link MR#: [id number] : 1970 Acct:[id number] Age/Sex: 51 / F Adm Date: 2 Loc: Room: [address] [place] [address] Type : ADM IN Attending Dr: Isidra [...] ALT Alkaline Phosphatase Troponin I High Sens 39712 H* Total Protein Albumin Globulin Albumin/Globulin Ratio [...] ALT Alkaline Phosphatase Troponin I High Sens 513721 H* Total Protein Albumin Globulin Albumin/Globulin Ratio Triglycerides Cholesterol LDL Cholesterol, Calc VLDL Cholesterol HDL Cholesterol Cholesterol/HDL Ratio 01/10/22 01/10/22 01/10/22 20:42 21:57 23:37 APTT PHA Creatinine Clear Sodium Potassium Chloride Carbon Dioxide BUN Creatinine Est GFR ( Amer) Est GFR (Non-Af Amer) Glucose POC Glucose 148 Calcium Magnesium Total Bilirubin AST ALT Alkaline Phosphatase Troponin I High Sens 163903 H* 418738 H* Total Protein Albumin Globulin Albumin/Globulin Ratio [...] Alkaline Phosphatase 85 Troponin I High Sens 59508 H* Total Protein 6.0 L Albumin 2.9 [...] signed by Isidra Garibay DO> 01/11/22 [facility] Work Phone: 1(559) 870-864905-30-2022 History and physical note Author Isidra Garibay [facility] January 10, 2022 12:14pm Note Date/Time January 10, 2022 10:30 am [facility] [address] [place] [address] Cardiology H&P Signed Patient: Javier Link MR#: [id number] : 1970 Acct:[id number] Age/Sex: 51 / F Adm Date: 2 Loc: Room: Type: [facility] Attending Dr: Isidra Garibay DO Copies to: NON STAFF Isidra Garibay DO~ Date of Service: 01/10/2022 Cardiology HPI History of Present Illness Chief complaint: Inferolateral STEMI HPI: Ms. Link is a 51 year old female transferred from [facility] emergency room this morning after receiving phone call from Dr. Katz and reviewing electronic transmitted media and discussion about the clinical case. Patient presented with severe chest discomfort with no prior history of cardiac illness or intervention. ECGs reveal sinus rhythm with inferolateral ST elevation injury current. She was admitted restarted upstream antiplatelet and Antithrombin therapy, and transferred to the [facility] emergently. Patient arrived at [facility] ER at 0924, first ECG transmitted to al was 0948, [facility] team was activated at 0952, patient was transferred by ground, arrived in [facility] at 1033 and underwent primary PCI at [...] ER staff, review of electronic transmitted media, [facility] staff, nursing staff and family both pre [...] changes or abnormalities: ST suggestive of injury W[place], pacemaker, normal Myocardial infarction: inferior WV (acute or recent) and lateral WV (acute or recent) A&P - Cardiology (1) ST elevation myocardial infarction (STEMI) of inferolateral wall: Code(s): I21.19 - ST elevation (STEMI) myocardial infarction involving other coronary artery of inferior wall (2) Hyperlipidemia: Code(s): E78.5 - Hyperlipidemia, unspecified (3) Essential hypertension: Code(s): I10 - Essential (primary) hypertension Documented By: Isidra Garibay DO 01/10/22 1026 Signed By: <Electronically signed by Isidra Garibay DO> 01/10/22 1214 [facility] Work Phone: 1(203) 277-487105-30-2022 [facility] CenterChief complaint Narrative - Reported* 51-year-old female returns for transitional care management office visit following recent large anterior WV with associated cardiogenic shock and primary revascularization of the LAD, details of which are reviewed. She had intra-aortic balloon pump counterpulsation for 24 hours, subsequent diagnosis of LV thrombus with reduced LV function. She was transition to clopidogrel warfarin, aspirin triple therapy. She did have brief episodes of bobbi-WV/postoperative VT that stabilized on amiodarone andthen we [...] 12 weeks and myselfin approximately 4 months -[facility] DO Work Phone: Chief complaint Narrative - Reported* 51-year-old female returns for transitional care management office visit following recent large anterior [place] with associated cardiogenic shock and primary revascularization of the LAD, details of which are reviewed. She had intra- aortic balloon pump counterpulsation for 24 hours, subsequent diagnosis of LV thrombus with reduced LV function. She was transition to clopidogrel warfarin, aspirin triple therapy. She did have brief episodes of bobbi-WV/postoperative VT that stabilized on amiodarone andthen we [...] 12 weeks and myselfin approximately 4 months [facility] Work Phone: Chief complaint Narrative - Reported* 51-year-old female returns for transitional care management office visit following recent large anterior WV with associated cardiogenic shock and primary revascularization of the LAD, details of which are reviewed. She had intra- aortic balloon pump counterpulsation for 24 hours, subsequent diagnosis of LV thrombus with reduced LV function. She was transition to clopidogrel warfarin, aspirin triple therapy. She did have brief episodes of bobbi-WV/postoperative VT that stabilized on amiodarone andthen we [...] 12 weeks and myselfin approximately 4 months [facility] Work Phone: Evaluation note* Diagnosis Onset Date Resolution Status Essential hypertension acute Hyperlipidemia acute Left ventricular thrombus [place] ST elevation myocardial infa rction (STEMI) of inferolateral wall acute [facility] Work Phone: Hospital Discharge instructions Additional Instructions [facility] to manage your Coumadin dosing and lab [...] doctor or pharmacist, without first calling the spinning frame changer who implanted the stent. If you require [...] weight lifting, stair steppers, etc. until the spinning frame changer approves these activities. Check with the spinning frame changer on your first follow-up visit. CALL YOUR PHYSICIAN at [phone]: -If bleeding should occur from the catheter insertion site- apply pressure to the site then immediately call us. -Report any fever, redness, drainage, increased swelling, or firmness at the catheter insertion site. Some bruising or slight swelling may be present at the time of discharge. -Should arm or leg become cold, numb, white, or blue, contact the spinning frame changer immediately. -IF you should experience episodes of [...] is recommended. Please call Central Scheduling at [phone] to schedule your appointment.] The attending spinning frame changer or [facility] nurse clinician should provide you with specific instructions regarding activity, diet, medications, and further follow up for you. Follow the medication instructions provided on your discharge. If the dosages and instructions on this sheet differ from the dosage and instructions on the bottle, follow the instructions on the bottle. [facility] is not responsible for incorrect prescription information provided by the patient during their visit. Do not stop your medications without consulting your health care provider. Please take the list with you to your next doctor's appointment.[facility] Work Phone: Summary Purpose Family [...] and content) DATE CREATED AUTHOR 09/11/2021 [facility] DATE CREATED AUTHOR AUTHOR'S ORGANIZ ATION 03/09/2022 [facility] DATE CREATED AUTHOR AUTHOR'S ORGANIZ ATION 12/25/2022 [facility] DATE CREATED AUTHOR AUTHOR'S ORGANIZ ATION 05/11/2024 [facility] DATE CREATED AUTHOR AUTHOR'S ORGANIZ ATION 07/13/2024 [facility] Care Teams (unrecognized sec tion and content) Team Status: Inactive Member Role Status Dates W Clarke Garibay , DO Admit Provider, Attending Provide r [...] BE BASED ON THE PRIMARY CLINICAL RECORDS. [facility]. provides no warranty or guarantee of the accuracy or completeness of information in this document.
[2024-07-15 09:53] LABS: Bilirubin Urine NEGATIVE (NEGATIVE); Blood Urine NEGATIVE (NEGATIVE); Clarity Urine CLEAR (CLEAR); Color Urine LT. YELLOW (YELLOW); Glucose Urine UA NEGATIVE (NEGATIVE); Ketones Urine NEGATIVE (NEGATIVE); Leukocyte Esterase Urine NEGATIVE (NEGATIVE); Nitrite Urine NEGATIVE (NEGATIVE); Protein Urine NEGATIVE (NEG/TRACE); Specific Gravity Urine <=1.005 (1.005-1.025); Urobilinogen Urine 0.2 EU/dL (0.2-1.0)
== END 2024-07-15 09:26 | disposition home or self-care (01) ==
LOC: LAB 09:26
PROVIDERS: PCP Nurse Practitioner Family; Visit Provider Nurse Practitioner Family
DX: R39.9 Unspecified symptoms and signs involving the genitourinary system (principal)
CPT/HCPCS: 81003

== ENCOUNTER 2024-07-19 09:52 | Outpatient (OUT) | payer MEDICARE, SELFPAY ==
[2024-07-19 10:21] LABS: Bilirubin Urine NEGATIVE (NEGATIVE); Blood Urine NEGATIVE (NEGATIVE); Clarity Urine CLEAR (CLEAR); Color Urine LT. YELLOW (YELLOW); Glucose Urine UA NEGATIVE (NEGATIVE); Ketones Urine NEGATIVE (NEGATIVE); Leukocyte Esterase Urine NEGATIVE (NEGATIVE); Nitrite Urine NEGATIVE (NEGATIVE); Protein Urine NEGATIVE (NEG/TRACE); Specific Gravity Urine <=1.005 (1.005-1.025); Urobilinogen Urine 0.2 EU/dL (0.2-1.0); pH Urine 6.5 (5.0-9.0)
[2024-07-19 10:28] LABS: Bacteria Urine NONE SEEN #/HPF (NONE SEEN); Mucus Urine NONE SEEN (NONE SEEN); RBC Urine NONE SEEN #/HPF (0-2); Squamous Epithelial Cell Urine FEW #/LPF (NONE/RARE); WBC Urine NONE SEEN #/HPF (NONE SEEN)
[2024-07-19 10:29] LABS: Urine Culture Indicated ALREADY ORDERED
== END 2024-07-19 09:53 | disposition home or self-care (01) ==
LOC: LAB 09:53
PROVIDERS: PCP Nurse Practitioner Family; Visit Provider Nurse Practitioner Family
DX: R10.9 Unspecified abdominal pain (principal)
CPT/HCPCS: 81001; 87086

== ENCOUNTER 2024-07-25 07:31 | Outpatient (OUT) | payer MEDICARE, SELFPAY ==
--- OUTSIDE RECORDS SUMMARY | 2024-07-25 07:34 | XMS_ITS | CCD ---
Author Organization [facility] Informat ion Partnership [facility] Care Team Providers Care Sign Erector And Repairer Name Role Phone RAFI BISWAS Attending Unavailable MORIAH MACK Primary Care Unavailable MORIAH MACK Referring Unavailable RAFI BISWAS Admitting Unavailable None, No PCP Unavailable Unavailable Unavailable Unavailable DO Isidra Garibay Admit Provider [phone] DO Isidra Garibay Attending Provider NON STAFF Primary Care Provider UnavailALTON Bowen Consulting Unavailable VALDEZ, NIKKI Primary Care Unavailable ALTON PARKS Attending Unavailable ALTON PARKS Admitting Unavailable MISC, DR PLAOMARES Admitting Unavailable MISC, DR PALOMARES Attending Unavailable [...] ALTON PARKS Admitting Unavailable BEBO, DR NOLAN Philipep Admitting Unavailabl e BEBO, DR NOLAN Philippe [...] Unavailable MOUKARBEL, DR SHAFFER Consulting Unavailable VALDEZ, [facility] Primary Care Unavailable MOUKARBEL, DR SHAFFER [...] Referring Unavailable CIRILO RUBALCAVA Attending Unavailable OWEN, DELL Referring Unavailable ALTON PARKS Referring Unavailable OWEN, [...] Propensity to adverse reactions (disorder) 1 [facility] Repository (4 sources) moxifloxacin; Translations: [Avelox] Drug Allergy [place] [address] DO Work Phone: (3 sources) moxifloxacin; Translations: [moxifloxacin] Drug Allergy 2 [facility] (1 source) moxifloxacin Drug Allergy 3 [facility] Repository (1 source) Chlorhexidine; Translations: [CHLORHEXIDINE GLUCONATE] Drug Allergy 0 [facility] Repository Medications Current Medications Medication Drug Class(es) Dates Sig (Normalized) Sig (Original) [id number] 200 actuat albuterol 0.09 mg/actuat metered dose [...] 2022 1:49pm take 1 capsule by mo [facility] three times daily [...] 2022 6:58pm take 1 capsule by mo [facility] once daily before [...] MG Oral Tablet Take as directed by [facility] Quantity: 0 Refills: 0 Ordered: [...] sources) Coronary arteriosclerosis; Translations: [Coronary atherosclerosis of [place] coronary artery] Onset: 02-02-2022 Chronic Coronary atherosclerosis [...] 06-03-2022 Episodic Other aftercare (1 source) 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; Translations: [OTH LONG-TERM CURRENT DRUG THERAPY] Onset: 06-07-2022 Episodic Other aftercare (4 sources) Encounter for therapeutic drug level monitoring; Translations: [ENC THERAPEUTC DRUG LEVL MONITORING] Onset: 05-15-2022 Episodic Other aftercare (1 source) retirement (current) use of anticoagulants; Translations: [MICROFICHE DUPLICATOR CURRNT USE ANTICOAGULANTS] Onset: 06-14-2022 Episodic Other [...] Range Facility Office Visiton 07-08-2024 Follow-up visit [id number] Javier Link 1970 F Date Provider Department Center 07/08/2024 Krystal-DEENA BENTON [facility] Family History Problem Relation Age of Onset Atrial fibrillation Mother Other Mother Heart attack Father Other Father Other Father Family Status - Relation Status Age at Mother Father Level of Service:04789 [place] OFFICE/OUTPATIENT ESTABLISHED MOD MDM [address] [facility] Office Visiton 01-12-2024 Follow-up visit [id number] Javier Link 1970 F Date Provider Department Center 01/12/2024 Jaleel-YELENA CRUZ CARD [facility] Family History Problem Relation Age of Onset Atrial fibrillation Mother Other Mother Heart attack Father Other Father Other Father Family Status - Relation Status Age at Mother Father Level of Service:00888 [place] OFFICE/OUTPATIENT ESTABLISHED MOD MDM [address] [facility] 36on 09-29-2023 36 Yes please! [facility] 36 Can we give patient sample? [facility] Follow-Upon 07-31-2023 Follow-Up [id number] Javier Link 1970 Date Provider Department Center 07/31/2023 CIRILO CARMEN [facility] Family History Problem Relation Age of Onset Atrial fibrillation Mother Other Mother Heart attack Father Other Father Other Father Family Status - Relation Status Age at Mother Father Level of Service:57281 [place] OFFICE/OUTPATIENT ESTABLISHED MOD MDM 30-39 MIN Reason for Visit and Comments: Follow-up [902433] - Discuss medication switch Normal [facility] PROF CHEM 8 (BAS METB)on Anion gap [Moles/Vol] 14.8 mmol/L Normal [facility] Comment on above: Performed By: #### C BC #### [facility] [address] [address] [address] Vangie Devine Calcium [Mass/Vol] 8.9 mg/dL Normal 8.5-10.1 [facility] Comment on above: Performed By: #### C BC #### [facility] [address] [place] [address] [address] Vangie Devine Chloride [Moles/Vol] 101 mmol/L Normal 98-107 [facility] Comment on above: Performed By: #### C BC #### [facility] [address] [address] [address] Vangie Devine CO2 [Moles/Vol] 25.9 mmol/L Normal 21.0-32.0 [facility] Comment on above: Performed By: #### C BC #### [facility] [address] [address] [address] Vangie Devine Creatinine [Mass/Vol] 0.91 mg/dL Normal 0.55-1.02 [facility] Comment on above: Performed By: #### C BC #### [facility] [address] [place] [address] [address] Vangie Devine EGFR-AF CAMBODIAN >60 Normal >=60 [facility] Comment on above: Performed By: #### C BC #### [facility] [address] [place] [address] Dr. Vangie Devine EGFR-NON AF CAMBODIAN >60 Normal >=60 [facility] Comment on above: Performed By: #### C BC #### [facility] [address] [address] [address] Vangie Devine Glucose [Mass/Vol] 93 mg/dL Normal 74-106 [facility] Comment on above: Performed By: #### C BC #### [facility] [address] [place] [address] Dr. Vangie Devine Potassium [Moles/Vol] 4.7 mmol/L Normal 3.5-5.1 [facility] Comment on above: Performed By: #### C BC #### [facility] [address] [address] [address] Vangie Devine Sodium [Moles/Vol] 137 mmol/L Normal 136-145 [facility] Comment on above: Performed By: #### C BC #### [facility] [address] [place] [address] Dr. Vangie Devine Urea nitrogen [Mass/Vol] 9.0 mg/dL Normal 7.0-18.0 [facility] Comment on above: Performed By: #### C BC #### [facility] [address] [address] [address] Vangie Devine Urea nitrogen/Creatinine [Mass ratio] 9.9 mg/mg Normal [facility] Comment on above: Performed By: #### C BC #### [facility] [address] [address] [address] Vangie Devine PROF CHEM 8 (BAS METB)on Anion gap [Moles/Vol] 15.6 mmol/L Normal [facility] Comment on above: Performed By: #### P TT, PT #### [facility] [address] [place] [address] Dr. Vangie Devine Calcium [Mass/Vol] 8.9 mg/dL Normal 8.5-10.1 [facility] Comment on above: Performed By: #### P TT, PT #### [facility] [address] [place] [address] Dr. Vangie Devine Chloride [Moles/Vol] 101 mmol/L Normal 98-107 [facility] Comment on above: Performed By: #### P TT, PT #### [facility] [address] [place] [address] Dr. Vangie Devine CO2 [Moles/Vol] 24.7 mmol/L Normal 21.0-32.0 [facility] Comment on above: Performed By: #### P TT, PT #### [facility] [address] [place] [address] Dr. Vangie Devine Creatinine [Mass/Vol] 0.95 mg/dL Normal 0.55-1.02 [facility] Comment on above: Performed By: #### P TT, PT #### [facility] [address] [place] [address] Dr. Vangie Devine EGFR-AF CAMBODIAN >60 Normal >=60 [facility] Comment on above: Performed By: #### P TT, PT #### [facility] [address] [address] [address] Vangie Devine EGFR-NON AF CAMBODIAN >60 Normal >=60 [facility] Comment on above: Performed By: #### P TT, PT #### [facility] [address] [address] [address] Vangie Devine Glucose [Mass/Vol] 101 mg/dL Normal 74-106 [facility] Comment on above: Performed By: #### P TT, PT #### [facility] [address] [address] [address] Vangie Devine Potassium [Moles/Vol] 4.3 mmol/L Normal 3.5-5.1 [facility] Comment on above: Performed By: #### P TT, PT #### [facility] [address] [address] [address] Vangie Devine Sodium [Moles/Vol] 137 mmol/L Normal 136-145 [facility] Comment on above: Performed By: #### P TT, PT #### [facility] [address] [address] [address] Vangie Devine Urea nitrogen [Mass/Vol] 15.0 mg/dL Normal 7.0-18.0 [facility] Comment on above: Performed By: #### P TT, PT #### [facility] [address] [address] [address] Vangie Devine Urea nitrogen/Creatinine [Mass ratio] 15.8 mg/mg Normal [facility] Comment on above: Performed By: #### P TT, PT #### [facility] [address] [place] [address] Dr. Vangie Devine NM STRESS/REST MULTIon 10-31 NM STRESS/REST MULTI Patient: JAVIER LINK Exam Date: 10/31/2022 : 1970 Gender:F Ordering : DR DEENA BENTON M.D. Admission #: [id number] Family : Order #: [id number] CLICK HERE TO VIEW EXAM RADIOLOGY REPORT [...] M.D. on 10/31/2022 at 14:45 Normal [facility] FREE THYROXINE INDEX T7on FTI 4.83 Critically high 1.30-4.50 [facility] Comment on above: Performed By: #### C BC #### [facility] [address] [place], [place] [address] Dr. Vangie Devine T3U 35.0 % Normal 30.0-39.0 [facility] Comment on above: Performed By: #### C BC #### [facility] [address] [place], [place] [address] Dr. Vangie Devine T4 [Mass/Vol] 13.80 ug/dL Normal 4.80-13.90 [facility] Comment on above: Performed By: #### C BC #### [facility] [address] [place] [address] Dr. Vangie Devine TSHon 07-20-2022 TSH 0.051 uIU/mL Critically low 0.358-3.740 [facility] Comment on above: Performed By: #### C BC #### [facility] [address] [place] [address] Dr. Vangie Devine ACETONE SERUMon 06-03-2022 ACETONE Negative Normal NEGATIVE [facility] Comment on above: Performed By: #### C BCMAN #### [facility] [address] [place] [address] Dr. Vangie Devine CBC AUTO DIFFon 06-03-2022 BASO # 0.1 103/ul Normal 0.0-0.1 [facility] Comment on above: Performed By: #### C JANNETTEMAN #### [facility] [address] [place] [address] Dr. Vangie Devine Basophils/100 WBC (Bld) 0.6 % Normal 0.2-2.0 [facility] Comment on above: Performed By: #### C BCMAN #### [facility] [address] [place] [address] Dr. Vangie Devine EO # 0.3 103/ul Normal 0.0-0.7 [facility] Comment on above: Performed By: #### C BCMAN #### [facility] [address] [place] [address] Dr. Vangie Devine Eosinophils/100 WBC (Bld) 1.4 % Normal 0.9-7.0 [facility] Comment on above: Performed By: #### C BCMAN #### [facility] [address] [place] [address] Dr. Vangie Devine Erythrocyte distribution width (RBC) [Ratio] 13.2 % Normal 11.0-15.0 [facility] Comment on above: Performed By: #### C BCMAN #### [facility] [address] [place] [address] Dr. Vangie Devine Hematocrit (Bld) [Volume fraction] 44.8 % Normal 36.0-48.0 [facility] Comment on above: Performed By: #### C BCMAN #### [facility] [address] [address] [address] Vangie Devine Hemoglobin (Bld) [Mass/Vol] 15.0 g/dL Normal 12.0-16.0 [facility] Comment on above: Performed By: #### C BCMAN #### [facility] [address] [address] [address] Vangie Devine IG # 0.06 10e3/ul Critically high 0.00-0.03 [facility] Comment on above: Performed By: #### C BCMAN #### [facility] [address] [address] [address] Vangie Devine IG % 0.3 % Normal 0.0-0.5 [facility] Comment on above: Performed By: #### C BCMAN #### [facility] [address] [address] [address] Vangie Devine LYMPH # 3.5 103/ul Normal 1.2-3.8 [facility] Comment on above: Performed By: #### C BCMAN #### [facility] [address] [address] [address] Vangie Devine Lymphocytes/100 WBC (Bld) 19.8 % Critically low 20.5-60.0 [facility] Comment on above: Performed By: #### C BCMAN #### [facility] [address] [address] [address] Vangie Devine MANUAL DIFF REQ NO Normal [facility] Comment on above: Performed By: #### C BCMAN #### [facility] [address] [address] [address] Vangie Devine MCH (RBC) [Entitic mass] 31.1 pg Normal 26.7-34.0 [facility] Comment on above: Performed By: #### C BCMAN #### [facility] [address] [address] [address] Vangie Devine MCHC (RBC) [Mass/Vol] 33.5 g/dL Normal 29.9-35.2 [facility] Comment on above: Performed By: #### C JOBY #### [facility] [address] [address] [address] Vangie Devine MCV (RBC) [Entitic vol] 92.8 fL Normal 81.0-99.0 [facility] Comment on above: Performed By: #### C JOBY #### [facility] [address] [address] [address] Vnagie Devine MONO # 1.1 103/ul Critically high 0.3-0.8 [facility] Comment on above: Performed By: #### C JOBY #### [facility] [address] [address] [address] Vangie Devine Monocytes/100 WBC (Bld) 6.0 % Normal 1.7-12.0 [facility] Comment on above: Performed By: #### C JOBY #### [facility] [address] [place] [address] Dr. Vangie Devine NEUT # 12.6 103/ul Critically high 1.4-6.5 [facility] Comment on above: Performed By: #### C JOBY #### [facility] [address] [place] [address] Dr. Vangie Devine Neutrophils/100 WBC (Bld) 71.9 % Normal 43.0-75.0 [facility] Comment on above: Performed By: #### C JOBY #### [facility] [address] [address] [address] Vangie Devine Platelet mean volume (Bld) [Entitic vol] 11.0 fL Normal 9.5-13.5 [facility] Comment on above: Performed By: #### C JOBY #### [facility] [address] [address] [address] Vangie Devine PLT 179 103/ul Normal 150-450 [facility] Comment on above: Performed By: #### C JOBY #### [facility] [address] [place] [address] Dr. Vangie Devine RBC 4.83 106/ul Normal 4.20-5.40 [facility] Comment on above: Performed By: #### C JOBY #### [facility] [address] [address] [address] Vangie Devine WBC 17.5 103/ul Critically high 4.0-11.0 [facility] Comment on above: Performed By: #### C JOBY #### [facility] [address] [place], [place] [address] HEAD WO CONon [...] MARY ROJAS Date: 2022-06-03 19:15 Normal [facility] CULTURE URINEon 06-03-2022 CULTURE URINE Culture Observations : NO GROWTH. Normal [facility] Comment on above: Performed By: #### P TT, PT #### [facility] [address] [address] [address] Vangie Devine [facility]on 05-15 SARS-CoV-2 (COVID-19) RNA SAMIR+probe Ql (Unsp spec) Not detected Normal NOT DETECTED [facility] Comment on above: Result Comment: [...] for this test is supported by the Manufacturers Service Representative of Health and Human Service's declaration that [...] used). Performed By: #### C BCMAN #### [facility] [address] [place] [address] Dr. Vangie Devine ER URINE PROFILEon 2 Bilirubin Ql (U) Negative Normal NEGATIVE [facility] Comment on above: Performed By: #### C BC #### [facility] [address] [place] [address] Dr. Vangie Devine Clarity (U) CLEAR Normal CLEAR [facility] Comment on above: Performed By: #### C BC #### [facility] [address] [place] [address] Dr. Vangie Devine Color (U) LT. YELLOW Normal YELLOW [facility] Comment on above: Performed By: #### C BC #### [facility] [address] [place] [address] Dr. Vangie BHANDARITu A micrscopic examination will be performed if indicated. Normal [facility] Comment on above: Performed By: #### C BC #### [facility] [address] [place] [address] Dr. Vangie Devine Glucose Ql (U) 250 mg/dl Abnormal NEGATIVE [facility] Comment on above: Performed By: #### C BC #### [facility] [address] [place] [address] Dr. Vangie Devine Hemoglobin Ql (U) Negative Normal NEGATIVE [facility] Comment on above: Performed By: #### C BC #### [facility] [address] [place] [address] Dr. Vangie Devine Ketones Ql (U) Negative Normal NEGATIVE [facility] Comment on above: Performed By: #### C BC #### [facility] [address] [place] [address] Dr. Vangie Devine LEUKOCYTES Negative Normal NEGATIVE [facility] Comment on above: Performed By: #### C BC #### [facility] [address] [place] [address] Dr. Vangie Devine Nitrite Ql (U) Positive Abnormal NEGATIVE [facility] Comment on above: Performed By: #### C BC #### [facility] [address] [place] [address] Dr. Vangie Devine pH (U) 6.0 [pH] Normal 5-9 [facility] Comment on above: Performed By: #### C BC #### [facility] [address] [place] [address] Dr. Vangie Devine SPEC GRAVITY <=1.005 Abnormal 1.005-<=1.025 [facility] Comment on above: Performed By: #### C BC #### [facility] [address] [place] [address] Dr. Vangie Devine UA PROTEIN Negative Normal NEGATIVE/ TRACE [facility] Comment on above: Performed By: #### C BC #### [facility] [address] [place] [address] Dr. Vangie Devine UR MICRO IND INDICATED Normal [facility] Comment on above: Performed By: #### C BC #### [facility] [address] [place] [address] Dr. Vangie Devine Urobilinogen Qn (U) 0.2 {Jewel'U}/dL Normal 0.2 - 1. 0 [facility] Comment on above: Performed By: #### C BC #### [facility] [address] [place] [address] Dr. Vangie Devine FREE T3on 06-03-2022 FREE T3 2.42 pg/mlL Normal 2.18-3.98 [facility] Comment on above: Performed By: #### F T3 #### [facility] [address] [place] [address] Dr. Vangie Devine FREE T4on 06-03-2022 Free T4 [Mass/Vol] 1.93 ng/dL Critically high 0.76-1.46 [facility] Comment on above: Performed By: #### C JOBY #### [facility] [address] [place] [address] Dr. Vangie Devine LACTATE/LACTIC ACIDon 2021 Lactate [Moles/Vol] 1.2 mmol/L Normal 0.4-1.9 [facility] Comment on above: Performed By: #### C JOBY #### [facility] [address] [place] [address] Dr. Vangie Devine PROF 14(COMP METB)on 022 Albumin [Mass/Vol] 3.9 g/dL Normal 3.4-5.0 [facility] Comment on above: Performed By: #### H STROPN, TSH, CMP #### [facility] [address] [place] [address] Dr. Vangie Devine Albumin/Globulin [Mass ratio] 0.9 {ratio} Normal [facility] Comment on above: Performed By: #### H STROPN, TSH, CMP #### [facility] [address] [place] [address] Dr. Vangie Devine ALP [Catalytic activity/Vol] 138 U/L Critically high 46-116 [facility] Comment on above: Performed By: #### H STROPN, TSH, CMP #### [facility] [address] [place] [address] Dr. Vangie Devine ALT [Catalytic activity/Vol] 24 U/L Normal 14-59 [facility] Comment on above: Performed By: #### H STROPN, TSH, CMP #### [facility] [address] [place] [address] Dr. Vangie Devine Anion gap [Moles/Vol] 11.4 mmol/L Normal [facility] Comment on above: Performed By: #### H STROPN, TSH, CMP #### [facility] [address] [address] [address] Vangie Devine AST [Catalytic activity/Vol] 23 U/L Normal 15-37 [facility] Comment on above: Performed By: #### H STROPN, TSH, CMP #### [facility] [address] [place] [address] Dr. Vangie Devine Bilirubin [Mass/Vol] 0.5 mg/dL Normal 0.2-1.0 [facility] Comment on above: Performed By: #### H STROPN, TSH, CMP #### [facility] [address] [place] [address] Dr. Vangie Devine Calcium [Mass/Vol] 9.5 mg/dL Normal 8.5-10.1 [facility] Comment on above: Performed By: #### H STROPN, TSH, CMP #### [facility] [address] [place] [address] Dr. Vangie Devine Chloride [Moles/Vol] 98 mmol/L Normal 98-107 [facility] Comment on above: Performed By: #### H STROPN, TSH, CMP #### [facility] [address] [place] [address] Dr. Vangie Devine CO2 [Moles/Vol] 25.3 mmol/L Normal 21.0-32.0 [facility] Comment on above: Performed By: #### H STROPN, TSH, CMP #### [facility] [address] [place] [address] Dr. Vangie Devine Creatinine [Mass/Vol] 0.90 mg/dL Normal 0.55-1.02 [facility] Comment on above: Performed By: #### H STROPN, TSH, CMP #### [facility] [address] [place] [address] Dr. Vangie Devine EGFR-AF CAMBODIAN >60 Normal >=60 [facility] Comment on above: Performed By: #### H STROPN, TSH, CMP #### [facility] [address] [place] [address] Dr. Vangie Devine EGFR-NON AF CAMBODIAN >60 Normal >=60 [facility] Comment on above: Performed By: #### H STROPN, TSH, CMP #### [facility] [address] [address] [address] Vangie Devine Globulin (S) [Mass/Vol] 4.2 g/dL Normal [facility] Comment on above: Performed By: #### H STROPN, TSH, CMP #### [facility] [address] [address] [address] Vangie Devine Glucose [Mass/Vol] 93 mg/dL Normal 74-106 [facility] Comment on above: Performed By: #### H STROPN, TSH, CMP #### [facility] [address] [place] [address] Dr. Vangie Devine Potassium [Moles/Vol] 3.7 mmol/L Normal 3.5-5.1 [facility] Comment on above: Performed By: #### H STROPN, TSH, CMP #### [facility] [address] [place] [address] Dr. Vangie Devine Protein [Mass/Vol] 8.1 g/dL Normal 6.4-8.2 [facility] Comment on above: Performed By: #### H STROPN, TSH, CMP #### [facility] [address] [address] [address] Vangie Devine Sodium [Moles/Vol] 131 mmol/L Critically low 136-145 [facility] Comment on above: Performed By: #### H STROPN, TSH, CMP #### [facility] [address] [place] [address] Dr. Vangie eDvine Urea nitrogen [Mass/Vol] 14.0 mg/dL Normal 7.0-18.0 [facility] Comment on above: Performed By: #### H STROPN, TSH, CMP #### [facility] [address] [place] [address] Dr. Vangie Devine Urea nitrogen/Creatinine [Mass ratio] 15.6 mg/mg Normal [facility] Comment on above: Performed By: #### H STROPN, TSH, CMP #### [facility] [address] [place] [address] Dr. Vangie Devine PROTIMEon 06-03-2022 INR Coag (PPP) [Relative time] 1.06 {INR} Normal [facility] Comment on above: Performed By: #### C JANNETTEHERIBERTO #### [facility] [address] [place] [address] Dr. Vangie Devine INR GUIDELINES SEE BELOW Normal [facility] Comment on above: Result Comment: MARY ANN RED INR: 2.0 - 3.0 CONDITIONS NOT LISTED BELOW 2.5 - 3.5 FOR PROSTHETIC HEART VALVE REPLACEMENT 2.5 - 3.5 RECURRENT THROMBOSIS Performed By: #### C JANNETTEHERIBERTO #### [facility] [address] [address] [address] Vangie Devine PT Coag (PPP) [Time] 11.4 s Normal 9.0-11.6 [facility] Comment on above: Performed By: #### C JOBY #### [facility] [address] [place] [address] Dr. Vangie Devine PTTon 06-03-2022 aPTT Coag (Bld) [Time] 31.3 s Normal 22.3-36.2 [facility] Comment on above: Performed By: #### C JANNETTEHERIBERTO #### [facility] [address] [place] [address] Dr. Vangie Devine TROPONIN, HIGH SENSITIVITYon 06-03-2022 HSTROP 26.3 pg/mL Normal 4.0-51.3 [facility] Comment on above: Result Comment: CUT- OFF POINTS HAVE BEEN ESTABLISHED BASED ON THE FOURTH UNIVERSAL DEFINITIONS OF MYOCARDIAL INFARCTION. THE UPPER REFERENCE LIMIT (URL) OF TROPONIN, DEFINED THE 99TH PERCENTILE OF cTnI DISTRIBUTION IN A REFERENCE POPULATION, HAS BEEN CONFIRMED THE DECISION THRESHOLD FOR SD DIAGNOSIS. Performed By: #### P TT, PT #### [facility] [address] [place] [address] Dr. Vangie Devine TSHon 06-03-2022 TSH 0.150 uIU/mL Critically low 0.358-3.740 [facility] Comment on above: Performed By: #### P TT, PT #### [facility] [address] [place] [address] Dr. Vangie Devine URINE MICROSCOPIC ONLYon BACTERIA TRACE Abnormal NONE SEEN [facility] Comment on above: Performed By: #### C BC #### [facility] [address] [place] [address] Dr. Vangie Devine Bacteria identified Cx Nom (U) INDICATED Normal [facility] Comment on above: Result Comment: dory cated due to positive nitrite Performed By: #### C BC #### [facility] [address] [place] [address] Dr. Vangie Devine CAST NONE SEEN Normal NONE SEEN [facility] Comment on above: Performed By: #### C BC #### [facility] [address] [place] [address] Dr. Vangie Devine Crystals LM Nom (Urine sed) NONE SEEN Normal NONE SEEN [facility] Comment on above: Performed By: #### C BC #### [facility] [address] [place] [address] Dr. Vangie Devine Epithelial cells LM Ql (Urine sed) RARE Normal NONE SEEN /RARE [facility] Comment on above: Performed By: #### C BC #### [facility] [address] [place] [address] Dr. Vangie Devine MUCOUS NONE SEEN Normal NONE SEEN [facility] Comment on above: Performed By: #### C BC #### [facility] [address] [place] [address] Dr. Vangie Devine RBC 0-2 Normal 0-2 [facility] Comment on above: Performed By: #### C BC #### [facility] [address] [place] [address] Dr. Vangie Devine WBC 0-2 Abnormal NONE SEEN [facility] Comment on above: Performed By: #### C BC #### [facility] [address] [place] [address] Dr. Vangie Devine XR CHEST 1 Von [...] MARY ROJAS Date: 2022-06-03 19:25 Normal [facility] XR CHEST 2 Von 05-18-2022 [...] ANGEL SHAFFER Date: 2022-05-18 10:55 Normal [facility] Covid-19 PCR (CVDTB)on SARS-CoV-2 (COVID-19) RNA SAMIR+probe Ql (Unsp spec) Not detected Normal NOT DETECTED [facility] Comment on above: Result Comment: This test is not yet approved or cleared by the [place] FDA. When there are no FDA-approved or cleared tests available, and other criteria are met, FDA can make tests available under an emergency access mechanism called an Emergency Use Authorization (EUA). The EUA for this test is supported by the [place] of Health and Human Service's (HHS's) declaration [...] Performed By: #### P TT, PT #### [facility] [address] [place] [address] Dr. Vangie Devine CBC AUTO DIFFon 05-12-2022 BASO # 0.1 103/ul Normal 0.0-0.1 [facility] Comment on above: Performed By: #### C BC #### [facility] [address] [place] [address] Dr. Vangie Devine Basophils/100 WBC (Bld) 0.7 % Normal 0.2-2.0 [facility] Comment on above: Performed By: #### C BC #### [facility] [address] [place] [address] Dr. Vangie Devine EO # 0.2 103/ul Normal 0.0-0.7 [facility] Comment on above: Performed By: #### C BC #### [facility] [address] [place] [address] Dr. Vangie Devine Eosinophils/100 WBC (Bld) 2.1 % Normal 0.9-7.0 [facility] Comment on above: Performed By: #### C BC #### [facility] [address] [place] [address] Dr. Vangie Devine Erythrocyte distribution width (RBC) [Ratio] 13.1 % Normal 11.0-15.0 [facility] Comment on above: Performed By: #### C BC #### [facility] [address] [place] [address] Dr. Vangie Devine Hematocrit (Bld) [Volume fraction] 43.2 % Normal 36.0-48.0 [facility] Comment on above: Performed By: #### C BC #### [facility] [address] [place] [address] Dr. Vangie Devine Hemoglobin (Bld) [Mass/Vol] 14.2 g/dL Normal 12.0-16.0 [facility] Comment on above: Performed By: #### C BC #### [facility] [address] [place] [address] Dr. Vangie Devine IG # 0.02 10e3/ul Normal 0.00-0.03 [facility] Comment on above: Performed By: #### C BC #### [facility] [address] [place] [address] Dr. Vangie Devine IG % 0.2 % Normal 0.0-0.5 [facility] Comment on above: Performed By: #### C BC #### [facility] [address] [place] [address] Dr. Vangie Devine LYMPH # 1.9 103/ul Normal 1.2-3.8 [facility] Comment on above: Performed By: #### C BC #### [facility] [address] [place] [address] Dr. Vangie Devine Lymphocytes/100 WBC (Bld) 22.2 % Normal 20.5-60.0 [facility] Comment on above: Performed By: #### C BC #### [facility] [address] [place] [address] Dr. Vangie Devine MANUAL DIFF REQ NO Normal [facility] Comment on above: Performed By: #### C BC #### [facility] [address] [place] [address] Dr. Vangie Devine MCH (RBC) [Entitic mass] 30.5 pg Normal 26.7-34.0 [facility] Comment on above: Performed By: #### C BC #### [facility] [address] [place] [address] Dr. Vangie Devine MCHC (RBC) [Mass/Vol] 32.9 g/dL Normal 29.9-35.2 [facility] Comment on above: Performed By: #### C BC #### [facility] [address] [place] [address] Dr. Vangie Devine MCV (RBC) [Entitic vol] 92.7 fL Normal 81.0-99.0 [facility] Comment on above: Performed By: #### C BC #### [facility] [address] [address] [address] Vangie Devine MONO # 0.5 103/ul Normal 0.3-0.8 [facility] Comment on above: Performed By: #### C BC #### [facility] [address] [address] [address] Vangie Devine Monocytes/100 WBC (Bld) 6.0 % Normal 1.7-12.0 [facility] Comment on above: Performed By: #### C BC #### [facility] [address] [address] [address] Vangie Devine NEUT # 6.0 103/ul Normal 1.4-6.5 [facility] Comment on above: Performed By: #### C BC #### [facility] [address] [place] [address] Dr. aVngie Devine Neutrophils/100 WBC (Bld) 68.8 % Normal 43.0-75.0 [facility] Comment on above: Performed By: #### C BC #### [facility] [address] [place] [address] Dr. Vangie Devine Platelet mean volume (Bld) [Entitic vol] 11.7 fL Normal 9.5-13.5 [facility] Comment on above: Performed By: #### C BC #### [facility] [address] [place] [address] Dr. Vangie Devine PLT 176 103/ul Normal 150-450 [facility] Comment on above: Performed By: #### C BC #### [facility] [address] [place] [address] Dr. Vangie Devine RBC 4.66 106/ul Normal 4.20-5.40 [facility] Comment on above: Performed By: #### C BC #### [facility] [address] [place] [address] Dr. Vangie Devine WBC 8.7 103/ul Normal 4.0-11.0 [facility] Comment on above: Performed By: #### C BC #### [facility] [address] [address] [address] Vangie Devine PROF CHEM 8 (BAS METB)on Anion gap [Moles/Vol] 13.9 mmol/L Normal [facility] Comment on above: Performed By: #### C BC #### [facility] [address] [place] [address] Dr. Vangie Devine Calcium [Mass/Vol] 9.2 mg/dL Normal 8.5-10.1 [facility] Comment on above: Performed By: #### C BC #### [facility] [address] [place] [address] Dr. Vangie Devine Chloride [Moles/Vol] 101 mmol/L Normal 98-107 [facility] Comment on above: Performed By: #### C BC #### [facility] [address] [place] [address] Dr. Vangie Devine CO2 [Moles/Vol] 24.2 mmol/L Normal 21.0-32.0 [facility] Comment on above: Performed By: #### C BC #### [facility] [address] [place] [address] Dr. Vangie Devine Creatinine [Mass/Vol] 0.87 mg/dL Normal 0.55-1.02 [facility] Comment on above: Performed By: #### C BC #### [facility] [address] [place] [address] Dr. Vangie Devine EGFR-AF CAMBODIAN >60 Normal >=60 [facility] Comment on above: Performed By: #### C BC #### [facility] [address] [place] [address] Dr. Vangie Devine EGFR-NON AF CAMBODIAN >60 Normal >=60 [facility] Comment on above: Performed By: #### C BC #### [facility] [address] [place] [address] Dr. Vangie Devine Glucose [Mass/Vol] 89 mg/dL Normal 74-106 [facility] Comment on above: Performed By: #### C BC #### [facility] [address] [place] [address] Dr. Vangie Devine Potassium [Moles/Vol] 4.1 mmol/L Normal 3.5-5.1 [facility] Comment on above: Performed By: #### C BC #### [facility] [address] [place] [address] Dr. Vangie Devine Sodium [Moles/Vol] 135 mmol/L Critically low 136-145 [facility] Comment on above: Performed By: #### C BC #### [facility] [address] [address] [address] Vangie Devine Urea nitrogen [Mass/Vol] 9.0 mg/dL Normal 7.0-18.0 [facility] Comment on above: Performed By: #### C BC #### [facility] [address] [place] [address] Dr. Vangie Devine Urea nitrogen/Creatinine [Mass ratio] 10.3 mg/mg Normal [facility] Comment on above: Performed By: #### C BC #### [facility] [address] [place] [address] Dr. Vangie Devine PROTIMEon 05-12-2022 INR Coag (PPP) [Relative time] 1.96 {INR} Normal [facility] Comment on above: Performed By: #### P T #### [facility] [address] [place] [address] Dr. Vangie Devine INR GUIDELINES SEE BELOW Normal [facility] Comment on above: Result Comment: MARY ANN RED INR: 2.0 - 3.0 CONDITIONS NOT LISTED BELOW 2.5 - 3.5 FOR PROSTHETIC HEART VALVE REPLACEMENT 2.5 - 3.5 RECURRENT THROMBOSIS Performed By: #### P T #### [facility] [address] [place] [address] Dr. Vangie Devine PT Coag (PPP) [Time] 20.3 s Critically high 9.0-11.6 [facility] Comment on above: Performed By: #### P T #### [facility] [address] [place] [address] Dr. Vangie Devine T4, T3U, FTI LABCORPon 05-07 Free Thyroxine Index 4.7 Normal 1.2-4.9 [facility] Comment on above: Performed By: #### T HYLC #### [facility] [address] [address] [address] Vangie Devine T3 Uptake 34 % Normal 24-39 [facility] Comment on above: Performed By: #### T HYLC #### [facility] [address] [address] [address] Vangie Devine T4 [Mass/Vol] 13.8 ug/dL Critically high 4.5-12.0 [facility] Comment on above: Performed By: #### T HYLC #### [facility] [address] [place] [address] Dr. Vangie Devine TSHon 05-06-2022 TSH 0.063 uIU/mL Critically low 0.358-3.740 [facility] Comment on above: Performed By: #### T SH #### [facility] [address] [place] [address] Dr. Vangie Devine ECHOCARDIO M/2D COMPLETEon 0 03-31-2022 ECHOCARDIO M/2D COMPLETE Patient: JAVIER LINK Exam Date: 03/31/2022 : 1970 Gender:F Ordering : DR DEENA BENTON M.D. Admission #: [id number] Family : Order #: [id number] CLICK HERE TO VIEW EXAM ECHOCARDIOGRAM REPORT [...] M.D. on 03/31/2022 at 18:35 Normal [facility] CBC AUTO DIFFon 03-28-2022 BASO # 0.1 103/ul Normal 0.0-0.1 [facility] Comment on above: Performed By: #### C BC #### [facility] [address] [address] [address] Vangie Devine Basophils/100 WBC (Bld) 0.6 % Normal 0.2-2.0 [facility] Comment on above: Performed By: #### C BC #### [facility] [address] [address] [address] Vangie Devine EO # 0.2 103/ul Normal 0.0-0.7 [facility] Comment on above: Performed By: #### C BC #### [facility] [address] [address] [address] Vangie Devine Eosinophils/100 WBC (Bld) 2.0 % Normal 0.9-7.0 [facility] Comment on above: Performed By: #### C BC #### [facility] [address] [address] [address] Vangie Devine Erythrocyte distribution width (RBC) [Ratio] 12.7 % Normal 11.0-15.0 [facility] Comment on above: Performed By: #### C BC #### [facility] [address] [place] [address] Dr. Vangie Devine Hematocrit (Bld) [Volume fraction] 42.6 % Normal 36.0-48.0 [facility] Comment on above: Performed By: #### C BC #### [facility] [address] [place] [address] Dr. Vangie Devine Hemoglobin (Bld) [Mass/Vol] 13.9 g/dL Normal 12.0-16.0 [facility] Comment on above: Performed By: #### C BC #### [facility] [address] [place] [address] Dr. Vangie Devine IG # 0.03 10e3/ul Normal 0.00-0.03 [facility] Comment on above: Performed By: #### C BC #### [facility] [address] [place] [address] Dr. Vangie Devine IG % 0.4 % Normal 0.0-0.5 [facility] Comment on above: Performed By: #### C BC #### [facility] [address] [place] [address] Dr. Vangie Devine LYMPH # 2.3 103/ul Normal 1.2-3.8 [facility] Comment on above: Performed By: #### C BC #### [facility] [address] [place] [address] Dr. Vangie Devine Lymphocytes/100 WBC (Bld) 28.7 % Normal 20.5-60.0 [facility] Comment on above: Performed By: #### C BC #### [facility] [address] [place] [address] Dr. Vangie Devine MANUAL DIFF REQ NO Normal [facility] Comment on above: Performed By: #### C BC #### [facility] [address] [place] [address] Dr. Vangie Devine MCH (RBC) [Entitic mass] 31.0 pg Normal 26.7-34.0 [facility] Comment on above: Performed By: #### C BC #### [facility] [address] [address] [address] Vangie Devine MCHC (RBC) [Mass/Vol] 32.6 g/dL Normal 29.9-35.2 [facility] Comment on above: Performed By: #### C BC #### [facility] [address] [place] [address] Dr. Vangie Devine MCV (RBC) [Entitic vol] 95.1 fL Normal 81.0-99.0 [facility] Comment on above: Performed By: #### C BC #### [facility] [address] [place] [address] Dr. Vangie Devine MONO # 0.5 103/ul Normal 0.3-0.8 [facility] Comment on above: Performed By: #### C BC #### [facility] [address] [place] [address] Dr. Vangie Devine Monocytes/100 WBC (Bld) 6.8 % Normal 1.7-12.0 [facility] Comment on above: Performed By: #### C BC #### [facility] [address] [place] [address] Dr. Vangie Devine NEUT # 4.9 103/ul Normal 1.4-6.5 [facility] Comment on above: Performed By: #### C BC #### [facility] [address] [place] [address] Dr. Vangie Devine Neutrophils/100 WBC (Bld) 61.5 % Normal 43.0-75.0 [facility] Comment on above: Performed By: #### C BC #### [facility] [address] [place] [address] Dr. Vangie Devine Platelet mean volume (Bld) [Entitic vol] 11.0 fL Normal 9.5-13.5 [facility] Comment on above: Performed By: #### C BC #### [facility] [address] [place] [address] Dr. Vangie Devine PLT 224 103/ul Normal 150-450 [facility] Comment on above: Performed By: #### C BC #### [facility] [address] [address] [address] Vangie Devine RBC 4.48 106/ul Normal 4.20-5.40 [facility] Comment on above: Performed By: #### C BC #### [facility] [address] [address] [address] Vangie Devine WBC 7.9 103/ul Normal 4.0-11.0 [facility] Comment on above: Performed By: #### C BC #### [facility] [address] [place] [address] Dr. Vangie Devine LIPID PROFILEon 03-28-2022 CHOL-HDL RATIO NORM SEE BELOW Normal [facility] Comment on above: Result Comment: 3.3 - 4.4 LOW RISK 4.4 - 7.1 AVERAGE RISK 7.1 - 11.0 MODERATE RISK >11.0 HIGH RISK Performed By: #### C BC #### [facility] [address] [place] [address] Dr. Vangie Devine Cholesterol [Mass/Vol] 103 mg/dL Normal <=200 [facility] Comment on above: Performed By: #### C BC #### [facility] [address] [place] [address] Dr. Vangie Devine Cholesterol in HDL [Mass/Vol] 39 mg/dL Critically low 40-60 [facility] Comment on above: Performed By: #### C BC #### [facility] [address] [address] [address] Vangie Devine Cholesterol in LDL [Mass/Vol] 46.8 mg/dL Normal [facility] Comment on above: Performed By: #### C BC #### [facility] [address] [address] [address] Vangie Devine Cholesterol.total/Chol esterol in HDL [Mass ratio] 2.6 {ratio} Normal [facility] Comment on above: Performed By: #### C BC #### [facility] [address] [place] [address] Dr. Vangie Devine HDL NORMAL > or = 60 mg/dl - LO W CARDIOVASCULAR RISK <40 mg/dl - HIGH CARDIOVASCULAR RISK Normal [facility] Comment on above: Performed By: #### C BC #### [facility] [address] [address] [address] Vangie Devine LDL CALC NORMAL SEE BELOW Normal [facility] Comment on above: Result Comment: <100 mg/dl OPTIMAL 100 - 129 mg/dl NEAR OR ABOVE OPTIMAL 130 - 159 mg/dl BORDERLINE HIGH 160 - 189 mg/dl HIGH >190 mg/dl VERY HIGH Performed By: #### C BC #### [facility] [address] [address] [address] Vangie Devine Triglyceride [Mass/Vol] 86 mg/dL Normal <=150 [facility] Comment on above: Performed By: #### C BC #### [facility] [address] [address] [address] Vangie Devine VLDL CALC 17.2 mg/dL Normal [facility] Comment on above: Performed By: #### C BC #### [facility] [address] [place] [address] Dr. Vangie Devine PROF 14(COMP METB)on 022 Albumin [Mass/Vol] 3.5 g/dL Normal 3.4-5.0 [facility] Comment on above: Performed By: #### C BC #### [facility] [address] [place] [address] Dr. Vangie Devine Albumin/Globulin [Mass ratio] 0.9 {ratio} Normal [facility] Comment on above: Performed By: #### C BC #### [facility] [address] [place] [address] Dr. Vangie Devine ALP [Catalytic activity/Vol] 127 U/L Critically high 46-116 [facility] Comment on above: Performed By: #### C BC #### [facility] [address] [place] [address] Dr. Vangie Devine ALT [Catalytic activity/Vol] 29 U/L Normal 14-59 [facility] Comment on above: Performed By: #### C BC #### [facility] [address] [place] [address] Dr. Vangie Devine Anion gap [Moles/Vol] 15.3 mmol/L Normal [facility] Comment on above: Performed By: #### C BC #### [facility] [address] [place] [address] Dr. Vangie Devine AST [Catalytic activity/Vol] 21 U/L Normal 15-37 [facility] Comment on above: Performed By: #### C BC #### [facility] [address] [address] [address] Vangie Devine Bilirubin [Mass/Vol] 0.5 mg/dL Normal 0.2-1.0 [facility] Comment on above: Performed By: #### C BC #### [facility] [address] [place] [address] Dr. Vangie Devnie Calcium [Mass/Vol] 8.9 mg/dL Normal 8.5-10.1 [facility] Comment on above: Performed By: #### C BC #### [facility] [address] [place] [address] Dr. Vangie Devine Chloride [Moles/Vol] 101 mmol/L Normal 98-107 [facility] Comment on above: Performed By: #### C BC #### [facility] [address] [place] [address] Dr. Vangie Devine CO2 [Moles/Vol] 25.8 mmol/L Normal 21.0-32.0 [facility] Comment on above: Performed By: #### C BC #### [facility] [address] [place] [address] Dr. Vangie Devine Creatinine [Mass/Vol] 0.89 mg/dL Normal 0.55-1.02 [facility] Comment on above: Performed By: #### C BC #### [facility] [address] [place] [address] Dr. Vangie Devine EGFR-AF CAMBODIAN >60 Normal >=60 [facility] Comment on above: Performed By: #### C BC #### [facility] [address] [place] [address] Dr. Vangie Devine EGFR-NON AF CAMBODIAN >60 Normal >=60 [facility] Comment on above: Performed By: #### C BC #### [facility] [address] [address] [address] Vangie Devine Globulin (S) [Mass/Vol] 4.1 g/dL Normal [facility] Comment on above: Performed By: #### C BC #### [facility] [address] [address] [address] Vangie Devine Glucose [Mass/Vol] 94 mg/dL Normal 74-106 [facility] Healthcare Comment on above: Performed By: #### C BC #### [facility] [address] [address] [address] Vangie Devine Potassium [Moles/Vol] 5.1 mmol/L Normal 3.5-5.1 [facility] Comment on above: Performed By: #### C BC #### [facility] [address] [place] [address] Dr. Vangie Devine Protein [Mass/Vol] 7.6 g/dL Normal 6.4-8.2 [facility] Comment on above: Performed By: #### C BC #### [facility] [address] [place] [address] Dr. Vangie Devine Sodium [Moles/Vol] 137 mmol/L Normal 136-145 [facility] Comment on above: Performed By: #### C BC #### [facility] [address] [place] [address] Dr. Vangie Devine Urea nitrogen [Mass/Vol] 9.0 mg/dL Normal 7.0-18.0 [facility] Comment on above: Performed By: #### C BC #### [facility] [address] [place] [address] Dr. Vangie Devine Urea nitrogen/Creatinine [Mass ratio] 10.1 mg/mg Normal [facility] Comment on above: Performed By: #### C BC #### [facility] [address] [place] [address] Dr. 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 Normal sinus rhythm with anteroseptal wall SD. Stress Stage Data: + +-- -+------+-------+ HR [...] The adequate level of stress was achieved. [id number] Myke Levin MD Electronically signed on 01/26/2022 at 5:41:45 PM Final Normal [facility] Cardiac Stress Test MP-No rth [facility]-Jackelyn y 250 DO Work Phone: Tobacco Screening.on 022 Adult depression screening assessment Yes [facility] syed Heart-Jackelyn y 250 DO Work Phone: [phone] Adult depression screening assessment No [facility] Heart-Jackelyn y 250 DO Work Phone: [phone] Fall risk assessment c) Not medically indicated [facility] HeartElsie hurtado 250 DO Work Phone: [phone] Tobacco use status CP b) No [facility] HeartElsie y 250 DO Work Phone: [phone] Tobacco Screening. 0-Not at all [facility] HeartElsie y 250 DO Work Phone: [phone] Tobacco Screening. 1-Several days [facility] Cleo hurtado 250 DO Work Phone: [phone] Tobacco Screening. 2-More than half the days [facility] Cleo hurtado 250 DO Work Phone: [phone] Tobacco Screening. Not difficult at all [facility] HeartElsie hurtado 250 DO Work Phone: Laboratory - Coagulationon 0 01-17-2022 INR Coag (Bld) [Relative time] 1.56 {INR} [facility] Cleo hurtado 250 DO Work Phone: PROTIMEon 01-17-2022 INR Coag (PPP) [Relative time] 1.56 {INR} Normal [facility] Comment on above: Performed By: #### C JOBY #### [facility] [address] [place] [address] Dr. Vangie Devine INR GUIDELINES SEE BELOW Normal [facility] Comment on above: Result Comment: MARY ANN RED INR: 2.0 - 3.0 CONDITIONS NOT LISTED BELOW 2.5 - 3.5 FOR PROSTHETIC HEART VALVE REPLACEMENT 2.5 - 3.5 RECURRENT THROMBOSIS Performed By: #### C JOBY #### [facility] [address] [place] [address] Dr. Vangie Devine PT Coag (PPP) [Time] 16.4 s Critically high 9.0-11.6 [facility] Comment on above: Performed By: #### C [facility] #### [facility] [address] [address] [address] Vangie Devine Activated partial thrombopla stin time (aPTT) in platelet poor plasma by coagulation aOrdered By: Isidra Garibay on 01-14-2022 aPTT Coag (PPP) [Time] 34.5 s 25.1-36.5 [facility] Creatinine and Glomerular fi ltration rate.predicted panel (S/P/Bld)Ordered By: Isidra Garibay on 01-14-2022 Creatinine [Mass/Vol] 0.69 mg/dL 0.44-1.03 [facility] Estimated glomerular filtrat ion rate (GFR) non- AmericanOrdered By: Isidra Garibay on 01-14-2022 GFR/1.73 sq M.predicted among non-blacks MDRD (S/P/Bld) [Vol rate/Area] > 60 mL/Min [facility] Laboratory - CoagulationOrde red By: Isidra Garibay on 01-14-2022 PT Coag (PPP) [Time] 17.7 s 9.0-12.9 [facility] No Panel InformationOrdered By: Isidra Garibay on 01-14-2022 Estimated GFR () > 60 mL/Min [facility] Comment on above: GFR estimated refere nce range: According to KDOQI guidelines, <60 ml/min/1.73m2 is sufficient to diagnose a patient with chronic kidney disease. Pharmacy Creatinine Clearance (Chem 94.39 [facility] Platelet poor plasma interna tional normalized ratio (INR) by coagulation assay (relatOrdered By: Isidra Garibay on 01-14-2022 INR Coag (PPP) [Relative time] 1.6 {INR} [facility] Comment on above: INR Therapeutic [...] on 01-14-2022 Calcium [Mass/Vol] 8.5 mg/dL 8.2-10.2 [facility] Serum or plasma chloride francesca surement (moles/volume)Ordered By: Isidra Garibay on 01-14-2022 Chloride [Moles/Vol] 99 mmol/L 95-114 [facility] Serum or plasma glucose ivana urement (mass/volume)Ordered By: Isidra Garibay on 01-14-2022 Glucose [Mass/Vol] 101 mg/dL 70-100 [facility] Comment on above: ADA recommended refe rence range Random Glucose Reference Range is dependent on time and content of last meal. Glucose of more than 200 mg/dL in a nonstressed, ambulatory subject supports the diagnosis of Diabetes Mellitus. Serum or plasma potassium me asurement (moles/volume)Ordered By: Isidra Garibay on 01-14-2022 Potassium [Moles/Vol] 4.2 mmol/L 3.5-5.1 [facility] Serum or plasma sodium measu rement (moles/volume)Ordered By: Isidra Garibay on 01-14-2022 Sodium [Moles/Vol] 129 mmol/L 136-146 [facility] Serum or plasma total carbon dioxide measurement (moles/volume)Ordered By: Isidra Garibay on 01-14-2022 CO2 [Moles/Vol] 21.8 mmol/L 22.0-30.0 [facility] Serum or plasma urea nitroge n measurement (mass/volume)Ordered By: Isidra Garibay on 01-14-2022 Urea nitrogen [Mass/Vol] 8 mg/dL 9-23 [facility] Albumin [Mass/volume] in Ser um or PlasmaOrdered By: Isidra Garibay on 01-11-2022 Albumin [Mass/Vol] 2.9 g/dL 3.2-5.5 [facility] Cholesterol [Mass/volume] in Serum or PlasmaOrdered By: Isidra Garibay on 01-11-2022 Cholesterol [Mass/Vol] 109 mg/dL 140-200 [facility] Comment on above: Chol less than 200 m g/dl low risk Chol 201-239 mg/dl borderline risk Chol 240 mg/dl and greater high risk Cholesterol in LDL Calc [Mas s/Vol]Ordered By: Isidra Garibay on 01-11-2022 Cholesterol in LDL [Mass/Vol] 49 mg/dL 0-100 [facility] Comment on above: LDL ATP III CLASSIFI CATION LDL less than 100 mg/dL Optimal LDL 100-129 mg/dL Near or above optimal LDL 130-159 mg/dL Borderline high LDL 160-189 mg/dL High LDL greater than 189 mg/dL Very high Cholesterol in VLDL Calc [Ma ss/Vol]Ordered By: Isidra Garibay on 01-11-2022 Cholesterol in VLDL [Mass/Vol] 16 mg/dL [facility] Globulin Calc (S) [Mass/Vol] Ordered By: Isidra Garibay on 01-11-2022 Globulin (S) [Mass/Vol] 3.1 g/dL [facility] Glucose Glucometer (BldC) [M ass/Vol]Ordered By: Isidra Garibay on 01-11-2022 Glucose [Mass/Vol] 118 mg/dL [facility] Comment on above: Random Glucose Refer ence Range is dependent on time and content of last meal. Glucose of more than 200 mg/dL in a nonstressed, ambulatory subject supports the diagnosis of Diabetes Mellitus. No Panel InformationOrdered By: Isidra Garibay on 01-11-2022 Bedside Glucose Comment Glu2: cleaned meter [facility] Protein [Mass/volume] in Ser um or PlasmaOrdered By: Isidra Garibay on 01-11-2022 Protein [Mass/Vol] 6.0 g/dL 6.1-7.9 [facility] Serum or plasma alanine gore otransferase measurement without P-5'-P (enzymatic activiOrdered By: Isidra Garibay on 01-11-2022 ALT No additional P-5'-P [Catalytic activity/Vol] 58 U/L 1060 [facility] Serum or plasma albumin/glob ulin mass ratioOrdered By: Isidra Garibay on 01-11-2022 Albumin/Globulin [Mass ratio] 0.9 {ratio} [facility] Serum or plasma alkaline carl sphatase measurement (enzymatic activity/volume)Ordered By: Isidra Garibay on 01-11-2022 ALP [Catalytic activity/Vol] 85 U/L 32-92 [facility] Serum or plasma aspartate am inotransferase measurement (enzymatic activity/volume)Ordered By: Isidra Garibay on 01-11-2022 AST [Catalytic activity/Vol] 212 U/L 10-42 [facility] Serum or plasma high density lipoprotein (HDL) cholesterol measurementOrdered By: Isidra Garibay on 01-11-2022 Cholesterol in HDL [Mass/Vol] 43 mg/dL 35-85 [facility] Comment on above: HDL CHOL ATP-III CLA SSIFICATION Cardiovascular Risk HDL > or equal to 60 mg/dL LOW HDL < 40 mg/dL HIGH Serum or plasma total biliru bin measurement (mass/volume)Ordered By: Isidra Garibay on 01-11-2022 Bilirubin [Mass/Vol] 0.6 mg/dL 0.3-1.2 [facility] Serum or plasma total choles terol/high density lipoprotein (HDL) cholesterol mass ratOrdered By: Isidra Garibay on 01-11-2022 Cholesterol.total/Chol esterol in HDL [Mass ratio] 2.5 {ratio} [facility] Triglyceride [Mass/volume] i n Serum or PlasmaOrdered By: Isidra Garibay on 01-11-2022 Triglyceride [Mass/Vol] 83 mg/dL 35-149 [facility] Comment on above: TRIG ATP [...] 01-11-2022 Troponin I.cardiac High sensitivity method [Mass/Vol] 10280 pg/mL 0-15 [facility] Comment on above: Results called at 0805 on 01/11/22 AMYLASEon 01-10-2022 Amylase [Catalytic activity/Vol] 37 U/L Normal 25-115 [facility] Comment on above: Performed By: #### C BC #### [facility] [address] [place] [address] Dr. Vangie Devine CARDIAC CHASTITY ADMITon 022 CK [Catalytic activity/Vol] 206 U/L Critically high 26-192 [facility] Comment on above: Performed By: #### C BC #### [facility] [address] [address] [address] Vangie Devine CK.MB [Mass/Vol] 3.65 ng/mL Critically high <=3.60 [facility] Comment on above: Performed By: #### C BC #### [facility] [address] [address] [address] Vangie Devine HSTROP 80.4 pg/mL Critically high 4.0-51.3 [facility] Comment on above: Result Comment: CUT- OFF POINTS HAVE BEEN ESTABLISHED BASED ON THE FOURTH UNIVERSAL DEFINITIONS OF MYOCARDIAL INFARCTION. THE UPPER REFERENCE LIMIT (URL) OF TROPONIN, DEFINED THE 99TH PERCENTILE OF cTnI DISTRIBUTION IN A REFERENCE POPULATION, HAS BEEN CONFIRMED THE DECISION THRESHOLD FOR SD DIAGNOSIS. Performed By: #### C BC #### [facility] [address] [address] [address] Vangie Devine AJ 119 ng/mL Critically high 9-82 [facility] Comment on above: Performed By: #### C BC #### [facility] [address] [address] [address] Vangie Devine CBC W MANUAL DIFFon 01-11-20 22 ATYPICAL LYMPH # 0.93 103/ul Normal [facility] Comment on above: Performed By: #### C JANNETTEMAN #### [facility] [address] [address] [address] Vangie Devine ATYPICAL LYMPH % 3 % Normal [facility] Comment on above: Performed By: #### C BCMAN #### [facility] [address] [address] [address] Vangie Devine BAND # 1.6 103/ul Critically high 0.0-0.3 [facility] Comment on above: Performed By: #### C JANNETTEMAN #### [facility] [address] [address] [address] Vangie Devine BAND % 5 % Normal 0-5 [facility] Comment on above: Performed By: #### C BCHERIBERTO #### [facility] [address] [place] [address] Dr. Vangie Devine BASOM # 0.00 103/ul Normal 0.00-0.10 [facility] Comment on above: Performed By: #### C BCHERIBERTO #### [facility] [address] [place] [address] Dr. Vangie Devine BASOM % 0.0 % Critically low 0.2-2.0 [facility] Comment on above: Performed By: #### C BCHERIBERTO #### [facility] [address] [place] [address] Dr. Vangie Devine BLAST # 0.0 103/ul Normal [facility] Comment on above: Performed By: #### C BCHERIBERTO #### [facility] [address] [place] [address] Dr. Vangie Devine BLAST % Normal [facility] Comment on above: Performed By: #### C BCHERIBERTO #### [facility] [address] [place] [address] Dr. Vangie Devine CORRECTED WBC Normal 4.0-11.0 [facility] Comment on above: Performed By: #### C BCHERIBERTO #### [facility] [address] [place] [address] Dr. Vangie Devine EOS # 0.00 103/ul Normal 0.00-0.70 [facility] Comment on above: Performed By: #### C BCHERIBERTO #### [facility] [address] [place] [address] Dr. Vangie Devine EOS% 0.0 % Critically low 0.9-7.0 [facility] Comment on above: Performed By: #### C BCHERIBERTO #### [facility] [address] [place] [address] Dr. Vangie Devine HCT 42.0 % Normal 36.0-48.0 [facility] Comment on above: Performed By: #### C BCHERIBERTO #### [facility] [address] [place] [address] Dr. Vangie Devine HGB 14.6 g/dl Normal 12.0-16.0 [facility] Comment on above: Performed By: #### C BCHERIBERTO #### [facility] [address] [address] [address] Vangie Devine HYPERSEG NEUT 1+ Normal [facility] Comment on above: Performed By: #### C BCHERIBERTO #### [facility] [address] [address] [address] Vangie Devine LYMPHM # 4.03 103/ul Critically high 1.20-3.80 [facility] Comment on above: Performed By: #### C BCHERIBERTO #### [facility] [address] [address] [address] Vangie Devine LYMPHM% 13.0 % Critically low 20.5-60.0 [facility] Comment on above: Performed By: #### C JOBY #### [facility] [address] [place] [address] Dr. Vangie Devine MCH 32.7 pg Normal 26.7-34.0 [facility] Comment on above: Performed By: #### C JOBY #### [facility] [address] [address] [address] Vangie Devine MCHC 34.8 g/dl Normal 29.9-35.2 [facility] Comment on above: Performed By: #### C JOBY #### [facility] [address] [address] [address] Vangie Devine MCV 94.2 fL Normal 81.0-99.0 [facility] Comment on above: Performed By: #### C BCHERIBERTO #### [facility] [address] [address] [address] Vangie Devine METAMYELOCYTE # 1.2 103/ul Normal [facility] Comment on above: Performed By: #### C BCHERIBERTO #### [facility] [address] [place] [address] Dr. Vangie Devine METAMYELOCYTE % 4 % Normal [facility] Comment on above: Performed By: #### C BCHERIBERTO #### [facility] [address] [address] [address] Vangie Devine MONOM# 0.93 103/ul Critically high 0.30-0.80 [facility] Comment on above: Performed By: #### C JOBY #### [facility] [address] [place] [address] Dr. Vangie Devine MONOM% 3.0 % Normal 1.7-12.0 [facility] Comment on above: Performed By: #### C JOBY #### [facility] [address] [place] [address] Dr. Vangie Devine MPV 10.4 fL Normal 9.5-13.5 [facility] Comment on above: Performed By: #### C JOBY #### [facility] [address] [place] [address] Dr. Vangie Devine MYELOCYTE # 0.9 103/ul Normal [facility] Comment on above: Performed By: #### C JOBY #### [facility] [address] [place] [address] Dr. Vangie Devine MYELOCYTE % 3 % Normal [facility] Comment on above: Performed By: #### C JOBY #### [facility] [address] [place] [address] Dr. Vangie Deivne NRBC 0 Normal [facility] Comment on above: Performed By: #### C JOBY #### [facility] [address] [place] [address] Dr. Vangie Devine PLT 460 103/ul Critically high 150-450 [facility] Comment on above: Performed By: #### C JOBY #### [facility] [address] [place] [address] Dr. Vangie Devine RBC 4.46 106/ul Normal 4.20-5.40 [facility] Comment on above: Performed By: #### C JOBY #### [facility] [address] [place] [address] Dr. Vangie Devine RDW 12.6 % Normal 11.0-15.0 [facility] Comment on above: Performed By: #### C JOBY #### [facility] [address] [address] [address] Vangie Devine SEG # 21.39 103/ul Critically high 1.40-6.50 [facility] Comment on above: Performed By: #### C JOBY #### [facility] [address] [address] [address] Vangie Devine SEG % 69.0 % Normal 43.0-75.0 [facility] Comment on above: Performed By: #### C JOBY #### [facility] [address] [address] [address] Vangie Devine WBC 31.0 103/ul Critically high 4.0-11.0 [facility] Comment on above: Performed By: #### C JOBY #### [facility] [address] [place] [address] Dr. Vangie Devine Covid-19 PCR ([facility])on 12-14 SARS-CoV-2 (COVID-19) RNA SAMIR+probe Ql (Unsp spec) Not detected Normal NOT DETECTED [facility] Comment on above: Result Comment: [...] for this test is supported by the Manufacturers Service Representative of Health and Human Service's declaration that [...] used). Performed By: #### C JOBY #### [facility] [address] [place] [address] Dr. Vangie Devine LIPASEon 01-10-2022 Lipase [Catalytic activity/Vol] 63.0 U/L Critically low 73.0-393.0 [facility] Comment on above: Performed By: #### C BCMAN #### [facility] [address] [address] [address] Vangie Devine Laboratory - Chemistry and C hemistry - challengeOrdered By: Isidra Garibay on 01-10-2022 Magnesium [Mass/Vol] 2.0 mg/dL 1.6-2.6 [facility] PROTIMEon 01-10-2022 INR Coag (PPP) [Relative time] 1.01 {INR} Normal [facility] Comment on above: Performed By: #### P TT, PT #### [facility] [address] [place] [address] Dr. Vangie Devine INR GUIDELINES SEE BELOW Normal [facility] Comment on above: Result Comment: MARY ANN RED INR: 2.0 - 3.0 CONDITIONS NOT LISTED BELOW 2.5 - 3.5 FOR PROSTHETIC HEART VALVE REPLACEMENT 2.5 - 3.5 RECURRENT THROMBOSIS Performed By: #### P TT, PT #### [facility] [address] [place] [address] Dr. Vangie Devine PT Coag (PPP) [Time] 10.9 s Normal 9.0-11.6 [facility] Comment on above: Performed By: #### P TT, PT #### [facility] [address] [place] [address] Dr. Vangie Devine PTTon 01-10-2022 aPTT Coag (Bld) [Time] 26.3 s Normal 22.3-36.2 [facility] Comment on above: Performed By: #### P TT, PT #### [facility] [address] [place] [address] Dr. Vangie Devine XR CHEST 1 Von 01-10-2022 XR CHEST 1 V CLINICAL HISTORY: Chest pain COMPARISON: Chest radiograph 12/20/2015 at [facility]. FINDINGS: Portable AP view of the chest obtained. Cardiomediastinal silhouette is normal. Lungs are clear, no evidence of infiltrate, suspicious nodule, or mass. No evidence of significant pleural fluid on this portable projection. No acute bony abnormality. IMPRESSION: No acute abnormality. Electronically authenticated by: MADELAINE ALVA Date: 2022-01-10 10:16 Normal [facility] WRIST LEFT 3 VWSon 2 WRIST LEFT 3 [facility] Department of Radiology [address] [place] [id number] Patient Name: JAVIER LINK : 1970 Sex: F Age: Race: White Pt. 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 Electronically signed: QUANG RUFFIN. Transcribed by: [email or web address], User Resident: Electronically Signed by: QUANG RUFFIN @ 09/10/2021 09:04 AM Normal [facility] Comment on above: Order Comment: Evalu ate Operative Reporton Operative Report MR#: [id number] [facility] Pt. Name: Javier Link Room #: 0C Discharge Date: Birthdate: 1970 OPERATIVE REPORT DATE OF SURGERY: 07/22/2021 SURGEON: Rafi Biswas M.D. PREOPERATIVE DIAGNOSIS: Kienbock's disease, stage IV, left lunate. POSTOPERATIVE DIAGNOSIS: Kienbock's disease, stage IV, left lunate. PROCEDURE: Proximal row carpectomy, left wrist. LAST TURNER: Maricarmen Liao M.D. ANESTHESIA: Regional. INDICATION FOR [...] took some 3-0 TiCron and put a raugte-ti-[id number] suture in that dorsal portion of the TFCC right near the ulnar styloid where the small tear was. The volar part of the TFCC looks good. Once that was in, the dorsal capsule was closed with multiple vroucz-sq-tfcuo sutures of 2-0 Vicryl. The subcutaneous tissue [...] Biswas M.D. Date Trans: 07/22/2021 10:32 A/destinee [id number] cc: Moriah Mack M.D. [address] [place] [address]. [facility] [address] Normal [facility] POC GLUCOSE LABon 07-22-2021 Glucose [Mass/Vol] 85 mg/dL Normal 70-100 [facility] Comment on above: Performed By: #### 8 5499 #### [address] MRI WRIST WO CONTRAST RIGHTo 06-09-2021 MRI WRIST WO CONTRAST RIGHT [facility] Department of Radiology [address] [place] [id number] Patient Name: JAVIER LINK : 1970 Sex: F Age: Race: White Pt. 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 Electronically signed: Liz Harp. Transcribed by: [email or web address], User Resident: Electronically Signed by: LIZ HARP @ 06/11/2021 09:46 AM Normal [facility] Comment on above: Order Comment: Evidhomero Webb's R wrist on outside x-ray, evaluate for staging and surgical planning. , Side: RIGHT WRIST LEFT 3 Son 1 WRIST LEFT 3 S [facility] Department of Radiology [address] [place] [id number] Patient Name: JAVIER LINK : 1970 Sex: F Age: Race: White Pt. 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 COMPARISON: None. IMPRESSION: 1. Subtle sclerosis lunate suggests possibility of osteonecrosis. No significant ulnar variance. 2. No acute fracture. No dislocation. Likely remote injury ulnar styloid. 3. Borderline widening scapholunate interval. 4. Multiple moderate triscaphe and radiocarpal arthritis. Electronically signed: Alonso Iglesias. Transcribed by: [email or web address], User Resident: Electronically Signed by: ALONSO IGLESIAS @ 05/19/2021 12:56 PM Normal [facility] Comment on above: Order Comment: evalu ate WRIST RIGHT 3 Son 05-18-20 21 WRIST RIGHT 3 S [facility] Department of Radiology [address] [place] [address] Patient Name: JAVIER LINK : 1970 Sex: F Age: Race: White Pt. 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 COMPARISON: None. IMPRESSION: 1. Subtle sclerosis lunate suggest osteonecrosis. 2. No acute fracture. No malalignment. No significant ulnar variance. Electronically signed: Alonso Iglesias. Transcribed by: [email or web address], User Resident: Electronically Signed by: ALONSO IGLESIAS @ 05/19/2021 12:55 PM Normal [facility] Comment on above: Order Comment: evalu ate Vital Signs Date Time Vital Sign Value Performing Clinician Facility 01-20-2022 12:07-0400 Diastolic blood pressure 58 mm[Hg] No PCP None [facility] DO Work Phone: 01-20-2022 12:07-0400 Systolic blood pressure 105 mm[Hg] No PCP None [facility] DO Work Phone: 01-20-2022 11:58-0400 Body height 147.32 cm No PCP None [facility] DO Work Phone: 01-20-2022 11:58-0400 Body mass index (BMI) [Ratio] 38.87 kg/m2 No PCP None [facility] DO Work Phone: 01-20-2022 11:58-0400 Body surface area Derived from formula 1.77 m2 No PCP None [facility] DO Work Phone: 01-20-2022 11:58-0400 Body weight 84.37 kg No PCP None [facility] DO Work Phone: 01-20-2022 11:58-0400 Diastolic blood pressure 62 mm[Hg] No PCP None [facility] DO Work Phone: 01-20-2022 11:58-0400 Heart rate 60 /min No PCP None [facility] DO Work Phone: 01-20-2022 11:58-0400 Systolic blood pressure 110 mm[Hg] No PCP None [facility] DO Work Phone: 01-20-2022 11:58-0400 6 1 No PCP None [facility] DO Work Phone: Comment on above: PHQ-9 TS 01-14-2022 13:04-0400 Heart rate 74 /min DO W Clarke Bebo Work Phone: [facility] 01-14-2022 13:04-0400 Respiratory rate 20 /min DO W Clarke Bebo Work Phone: [facility] 01-14-2022 12:00-0400 Body temperature 98.4 [degF] DO W Clarke Bebo Work Phone: [facility] 01-14-2022 12:00-0400 Diastolic blood pressure 69 mm[Hg] DO W Clarke Yusufdon Work Phone: [facility] 01-14-2022 12:00-0400 SaO2% (BldA) [Mass fraction] 96 % DO W Clarke Yusufdon Work Phone: [facility] 01-14-2022 12:00-0400 Systolic blood pressure 98 mm[Hg] DO W Clarke Bebo Work Phone: [facility] 01-14-2022 04:55-0400 Body weight 85 kg DO W Clarke Bebo Work Phone: [facility] 01-12-2022 08:00-0400 Inhaled oxygen flow rate 3 L/min DO W Clarke Yusufdon Work Phone: [facility] 01-11-2022 16:45-0400 Inhaled oxygen concentration 50 % DO W Clarke Garibay Work Phone: [facility] 01-11-2022 00:00-0400 35 1 No PCP None [facility] DO Work Phone: Comment on above: [id number] 01-10-2022 13:01-0400 Body height 147.32 cm DO W Clarke Garbiay Work Phone: [facility] 01-10-2022 13:01-0400 Body mass index (BMI) [Ratio] 39.2 kg/m2 DO W Clarke Garibay Work Phone: [facility] Encounters Encounter Date Encounter Type Care Provider Facility Start: 07-10-[address] [facility] Start: 07-10-2024 Encounter for preprocedural cardiovascular examination [facility] Start: 07-08-2024 End: [facility]: 06-27-[address] [facility] Start: 06-17-[address] [facility] Start: 05-21-[address] [facility] Start: 04-30-[address] [facility] Start: 03-15-[address] [facility] Start: 02-27-2024 End: 02-27-[address] [facility] Start: 02-07-2024 ambulatory DELL WEAVER [facility] Start: 01-22-[address] [facility] Start: 01-12-2024 End: 01-12-2024 ambulatory YELENA CRUZ [facility] Start: 07-31-2023 End: 07-31-2023 ambulatory CIRILO RUBALCAVA [facility] Start: 07-18-2023 End: 07-18-[address] [facility] Start: 12-21-2022 End: 12-22-[address] [...] Start: 01-27-2022 Chart Update No PCP None [facility] DO Work Phone: Start: 01-20-2022 End: 02-11-2022 ambulatory SHAIKH Sergo HERRERA Facility:[facility] Start: 01-20-2022 Transitional care moni clark srvc 7 day discharge No PCP None [facility] DO Work Phone: Start: 01-17-2022 End: 01-18-[address] NOLAN GARIBAY Facility:[facility] Start: 01-10-2022 End: 01-14-2022 Evaluation and management of inpatient DO W Clarke Garibay Work Phone: [facility] Start: 01-10-2022 End: 01-10-2022 ambulatory HASMUKH KATZ . Facility:[facility] Start: 07-22-2021 End: 07-23-2021 ambulatory RAFI BISWAS Facility:[facility] Procedures Date Procedure Procedure Detail Performing Clinician Start: 01-11-2022 Plain chest X-ray DO W Clarke Garbiay Work Phone: Start: 01-10-2022 CL Coronary Thrombol [...] Nolan Garibay, Status: Pen, Time: 10:50 AM [facility] DO Work Phone: Start: 03-21-2022 FUV, Provider: Beth Hull, Status: Pen, Time: 8:30 AM FUV, Provider: Beth Hull, Status: Pen, Time: 8:30 AM [facility] DO Work Phone: Start: 03-14-2022 ECHO, Provider: LUCAS HANI ULTRASOUND 01,[id number], Status: Pen, Time: 10:45 AM ECHO, Provider: LUCAS HHVI ULTRASOUND 01,[id number], Status: Pen, Time: 10:45 AM -[facility] DO Work Phone: Start: 01-26-2022 STRESS MARK, Provider : LUCAS HANI NUCLEAR 01,[id number], Status: Pen, Time: 2:00 PM STRESS MARK, Provider: LUCAS HHVI NUCLEAR 01,[id number], Status: Pen, Time: 2:00 PM [facility] DO Work Phone: Patient Education Coronary Angio plasty (DC) Angina (DC) Drug Eluting Stents [facility] Work Phone: Patient referral [facility] Work Phone: Payers Date Payer Category Payer Medicare [id number] 2019 Unknown [id number] 1970 Unknown [id number] 2.16.8 [id number] 1970 Unknown [id number] 2.16.84 0.1.718365.3.579.2.593 1970 Unknown [id number] 2.16.84 0.1.497835.3.579.2.593 1970 Unknown [id number] 2.16.84 0.1.889748.3.579.2.593 1970 Unknown [id number] 2.16.84 0.1.824842.3.579.2.593 1970 Unknown [id number] 2.16.84 0.1.391434.3.579.2.593 1970 Unknown [id number] 2.16.84 0.1.104631.3.579.2.593 1970 Unknown [id number] 2.16.84 0.1.959053.3.579.2.593 1970 Unknown [id number] 2.16.84 0.1.448277.3.579.2.593 1970 Unknown [id number] 2.16.84 0.1.255211.3.579.2.593 1971 Unknown [id number] 2.16.84 0.1.284440.3.579.2.593 1971 Unknown [id number] 2.16.84 0.1.931779.3.579.2.593 1970 Unknown [id number] 2.16.84 0.1.545803.3.579.2.593 1971 Unknown [id number] 2.16.84 0.1.636923.3.579.2.593 1971 Unknown [id number] 2.16.84 0.1.529924.3.579.2.593 1970 Unknown [id number] 2.16.84 0.1.564371.3.579.2.593 1971 Unknown [id number] 2.16.84 0.1.732865.3.579.2.593 1970 Unknown [id number] 2.16.84 0.1.600263.3.579.2.593 1971 Unknown [id number] 2.16.84 0.1.640378.3.579.2.593 1971 Unknown [id number] 2.16.84 0.1.712129.3.579.2.593 1970 Unknown [id number] 2.16.84 0.1.867118.3.579.2.593 1958 Self-pay [id number] Unknown Unknown [id number] 2.16.84 0.1.999320.3.579.2.593 Unknown [id number] 2.16.8 40.1.150752.3.579.2.531 Social History Date Type Detail Facility Daily caffeine consumption Daily caffeine consumption [facility] Work Phone: Comment on above: 3-4; quit 1 week ago; Start: 01-10-2022 [facility] Start: 1970 Sex Assigned At Female F [facility] Medical Equipment Procedure Code Equipment Code Equipment Origin al Text Equipment Identifier Dates Drug-eluting coronary artery stent, [id number] lymer-coated ()[id number] FDA Start: 01-10-2022 Drug-eluting coronary artery stent, [id number] lymer-coated ()[id number] [id number] FDA Start: 01-10-2022 Goals Date Patient Goal Desired Activity /State Functional Status Date Assessment Result Facility 01-20-2022 PHQ-9 [id number] Mild (5-9) [facility] 250 DO Work Phone: 01-14-2022 Functional status Patient at Baseline [facility] Work Phone: 01-10-2022 Functional status Disability [facility] Patient at Baseline [facility] Work Phone: Mental Status Date Assessment Result Facility 01-10-2022 Cognitive function Cognitive Sta s Patient at Baseline [facility] Work Phone: Clinical Notes 01-10-2022 to 07-08-2024 Note Date & Type Note Facility 07-08-2024 Note [place] [facility] Subjective Javier Link is a 54 y.o. year old female patient being seen for 6 mo follow up hx of LV thrombus, CAD, and chronic systolic heart failure. She was admitted to [facility] in Apr 2024 for hypotension due [...] 52-year-old woman. On 01/10/2022 she presented to [facility] with STEMI and was found to [...] is enrolled in cardiac rehab at the [facility] and doing well with that. Anticoagulation clinic at the [facility] follows her warfarin levels. Testing: [...] 28 mm skypoint, 2.5 x 18 mm Arimo. An intra-aortic balloon pump was placed. Visit [...] on exertion a (more content not included)... [facility] 01-12-2024 Note [facility] CARDI[facility] PROGR [...] She continues with cardiac rehab exercise at [facility]. She denies chest pain, shortness [...] 52-year-old woman. On 01/10/2022 she presented to [facility] with STEMI and was found to [...] is enrolled in cardiac rehab at the [facility] and doing well with that. Anticoagulation clinic at the [facility] follows her warfarin levels. Testing: [...] syncope and le (more content not included)... [facility] 01-12-2024 Note Patient here for 6 m o follow up chronic systolic heart failure, CAD, hx of LV thrombus. Had echo in Aug 2023. She goes twice a week to cardiac rehab, and 3 times a week to [employer]. She is able to workout for 45 minutes on the [employer] without chest pain or SOB. Gets lightheaded when she bends down. Feels palpitations sometimes when lying down. Overall, doing very well. Once in awhile gets a pain in the back, between shoulder blades. Denies chest pain and SOB. Review of Systems Cardiovascular: Positive for palpitations (intermittent). Musculoskeletal: Positive for back pain. Neurological: Positive for light-headedness. All other systems reviewed and are negative. [facility] 01-12-2024 Note HTN is well-controll ed with current med regimen and renal function stable [facility] 01-12-2024 Note [facility] II-currently eu volemic without exacerbation, no activity limiting symptoms Continue GDMT-aspirin, Lipitor, Coreg, Jardiance, Entresto and Aldactone with Diuretic therapy of Lasix 40 mg daily Monitor daily weights, I&O, fluid restriction 1.5-2L/day, renal function and electrolytes- [facility] 01-12-2024 Note Coronary artery dise ase is unchanged. Continue current medications. Cardiac status will be reassessed in 6 months. Continue goal-directed medical therapy with aspirin, Lipitor, Plavix, Coreg [facility] 01-12-2024 Note Lipid abnormalities are unchanged, well controlled; PCP monitoring LFT. Pharmacotherapy as ordered. Lipids will be reassessed annually. [facility] 01-12-2024 Note No thrombus noted on last 2 TTE [facility] 07-31-2023 Note Subjective Javier Link [...] for 2023 because she is switching to [facility] Medicare. Historical: Failed Class I topical [...] sun safety. Call for any acute issues. [facility] 10-31-2022 Note CARDIAC STRESS TEST [...] CAD evaluation with invasive stress test. [facility] 01-13-2022 Progress note Note Date/Time January 13, 2022 3:15pm [facility] [address] [place] [address] Cardiology Progress Note Signed Patient: Javier Link MR#: [id number] : 1970 Acct:[id number] Age/Sex: 51 / F Adm Date: 2 Loc: Room: [address] [place] [address] Type : ADM IN Attending Dr: Isidra [...] <Electronically signed by Isidra Garibay DO> 01/13/22 [facility] Work Phone: 1(403) 863-809506-01-2022 Progress note Author Isidra Garibay [facility] January 12, 2022 3:16pm Note Date/Time January 12, 2022 3:16p m [facility] [address] [place] [address] Cardiology Progress Note Signed Patient: Javier Link MR#: [id number] : 1970 Acct:[id number] Age/Sex: 51 / F Adm Date: 2 Loc: Room: [address] [place] [address] Type : ADM IN Attending Dr: Isidra [...] <Electronically signed by Isidra Garibay DO> 01/12/22 [facility] Work Phone: 1(834) 642-367705-31-2022 Progress note Author Isidra Garibay [facility] January 11, 2022 1:38pm Note Date/Time January 11, 2022 1:38p m [facility] [address] [place] [address] Cardiology Progress Note Signed Patient: Javier Link MR#: [id number] : 1970 Acct:[id number] Age/Sex: 51 / F Adm Date: 2 Loc: Room: [address] [place] [address] Type : ADM IN Attending Dr: Isidra [...] ALT Alkaline Phosphatase Troponin I High Sens 42887 H* Total Protein Albumin Globulin Albumin/Globulin Ratio [...] ALT Alkaline Phosphatase Troponin I High Sens 570815 H* Total Protein Albumin Globulin Albumin/Globulin Ratio Triglycerides Cholesterol LDL Cholesterol, Calc VLDL Cholesterol HDL Cholesterol Cholesterol/HDL Ratio 01/10/22 01/10/22 01/10/22 20:42 21:57 23:37 APTT PHA Creatinine Clear Sodium Potassium Chloride Carbon Dioxide BUN Creatinine Est GFR ( Amer) Est GFR (Non-Af Amer) Glucose POC Glucose 148 Calcium Magnesium Total Bilirubin AST ALT Alkaline Phosphatase Troponin I High Sens 361134 H* 517221 H* Total Protein Albumin Globulin Albumin/Globulin Ratio [...] Alkaline Phosphatase 85 Troponin I High Sens 33930 H* Total Protein 6.0 L Albumin 2.9 [...] signed by Isidra Garibay DO> 01/11/22 1338 [facility] Work Phone: 1(115) 847-281905-30-2022 History and physical note Author Isidra Garibay [facility] January 10, 2022 12:14pm Note Date/Time January 10, 2022 10:30 am [facility] [address] [place] [address] Cardiology H&P Signed Patient: Javier Link MR#: [id number] : 1970 Acct:[id number] Age/Sex: 51 / F Adm Date: 2 Loc: Room: Type: [facility] Attending Dr: Isidra Garibay DO Copies to: NON STAFF Isidra Garibay DO~ Date of Service: 01/10/2022 Cardiology HPI History of Present Illness Chief complaint: Inferolateral STEMI HPI: Ms. Link is a 51 year old female transferred from [place] emergency room this morning after receiving phone call from Dr. Katz and reviewing electronic transmitted media and discussion about the clinical case. Patient presented with severe chest discomfort with no prior history of cardiac illness or intervention. ECGs reveal sinus rhythm with inferolateral ST elevation injury current. She was admitted restarted upstream antiplatelet and Antithrombin therapy, and transferred to the [facility] emergently. Patient arrived at [place] ER at 0924, first ECG transmitted to ks was 0948, [facility] team was activated at 0952, patient was transferred by ground, arrived in [facility] at 1033 and underwent primary PCI at [...] ER staff, review of electronic transmitted media, [facility] staff, nursing staff and family both pre [...] changes or abnormalities: ST suggestive of injury SD, pacemaker, normal Myocardial infarction: inferior SD (acute or recent) and lateral SD (acute or recent) A&P - Cardiology (1) ST elevation myocardial infarction (STEMI) of inferolateral wall: Code(s): I21.19 - ST elevation (STEMI) myocardial infarction involving other coronary artery of inferior wall (2) Hyperlipidemia: Code(s): E78.5 - Hyperlipidemia, unspecified (3) Essential hypertension: Code(s): I10 - Essential (primary) hypertension Documented By: Isidra Garibay DO 01/10/22 1026 Signed By: <Electronically signed by Isidra Garibay DO> 01/10/22 1214 [facility] Work Phone: 1(450) 327-808205-30-2022 [facility] noteFairfield Medical CenterChief complaint Narrative - Reported* 51-year-old female returns for transitional care management office visit following recent large anterior SD with associated cardiogenic shock and primary revascularization of the LAD, details of which are reviewed. She had intra-aortic balloon pump counterpulsation for 24 hours, subsequent diagnosis of LV thrombus with reduced LV function. She was transition to clopidogrel warfarin, aspirin triple therapy. She did have brief episodes of bobbi-SD/postoperative VT that stabilized on amiodarone andthen we [...] 12 weeks and myselfin approximately 4 months -[facility] DO Work Phone: Chief complaint Narrative - Reported* 51-year-old female returns for transitional care management office visit following recent large anterior SD with associated cardiogenic shock and primary revascularization of the LAD, details of which are reviewed. She had intra- aortic balloon pump counterpulsation for 24 hours, subsequent diagnosis of LV thrombus with reduced LV function. She was transition to clopidogrel warfarin, aspirin triple therapy. She did have brief episodes of bobbi-SD/postoperative VT that stabilized on amiodarone andthen we [...] 12 weeks and myselfin approximately 4 months [facility] Work Phone: Chief complaint Narrative - Reported* 51-year-old female returns for transitional care management office visit following recent large anterior SD with associated cardiogenic shock and primary revascularization of the LAD, details of which are reviewed. She had intra- aortic balloon pump counterpulsation for 24 hours, subsequent diagnosis of LV thrombus with reduced LV function. She was transition to clopidogrel warfarin, aspirin triple therapy. She did have brief episodes of bobbi-SD/postoperative VT that stabilized on amiodarone andthen we [...] 12 weeks and myselfin approximately 4 months [facility] Work Phone: Evaluation note* Diagnosis Onset Date Resolution Status Essential hypertension acute Hyperlipidemia acute Left ventricular thrombus ac [place] ST elevation myocardial infa rction (STEMI) of inferolateral wall acute [facility] Work Phone: Hospital Discharge instructions Additional Instructions [place] [facility] to manage your Coumadin dosing and [...] doctor or pharmacist, without first calling the machine rope maker who implanted the stent. If you require [...] weight lifting, stair steppers, etc. until the machine rope maker approves these activities. Check with the machine rope maker on your first follow-up visit. CALL YOUR PHYSICIAN at [phone]: -If bleeding should occur from the catheter insertion site- apply pressure to the site then immediately call us. -Report any fever, redness, drainage, increased swelling, or firmness at the catheter insertion site. Some bruising or slight swelling may be present at the time of discharge. -Should arm or leg become cold, numb, white, or blue, contact the machine rope maker immediately. -IF you should experience episodes of [...] is recommended. Please call Central Scheduling at [phone] to schedule your appointment.] The attending machine rope maker or [facility] nurse clinician should provide you with specific instructions regarding activity, diet, medications, and further follow up for you. Follow the medication instructions provided on your discharge. If the dosages and instructions on this sheet differ from the dosage and instructions on the bottle, follow the instructions on the bottle. [facility] is not responsible for incorrect prescription information provided by the patient during their visit. Do not stop your medications without consulting your health care provider. Please take the list with you to your next doctor's appointment.[facility] Work Phone: Summary Purpose Family History [...] and content) DATE CREATED AUTHOR 09/11/2021 [facility] DATE CREATED AUTHOR AUTHOR'S ORGANIZ ATION 03/09/2022 [facility] DATE CREATED AUTHOR AUTHOR'S ORGANIZ ATION 12/25/2022 [facility] DATE CREATED AUTHOR AUTHOR'S ORGANIZ ATION 05/11/2024 [facility] DATE CREATED AUTHOR AUTHOR'S ORGANIZ ATION 07/13/2024 [facility] Care Teams (unrecognized sec tion and [...] ON THE PRIMARY CLINICAL RECORDS. [facility] [employer] [facility]. provides no warranty or guarantee of the accuracy or completeness of information in this document.
--- NOTE | 2024-07-25 07:35 | US_ITS ---
[address] [address] Patient Name: JAVIER LINK MRN: [id number] date: 1970 Sex: F Assigned Patient Location: US Current Patient Location: LAB Accession/Order Number: [id number] Exam Date: 07/25/2024 07:36 Report Date: 07/25/2024 11:00 At the request of: NIKKI KELLOGG Procedure: US renal bladder EXAMINATION: US renal bladder HISTORY: Recurrent UTI N39.0 COMPARISON: No relevant comparison available. TECHNIQUE: Ultrasound examination was performed of the bladder. FINDINGS: Right Kidney: Normal in size, contour and echotexture. 2 areas of anechoic echogenicity measuring up to 1.8 cm, simple cortical cyst. No solid cortical mass, hydronephrosis or obstructing nephrolithiasis. The cortex measures 1.3 cm. Height: 6.04 cm Length: 9.24 cm Width: 6.33 cm Left Kidney: Normal in size, contour and echotexture. No solid cortical mass, hydronephrosis or obstructing nephrolithiasis. The cortex measures 1.2 cm Height: 4.74 cm Length: 8.31 cm Width: 5.20 cm Urinary bladder: The wall is normal measuring 1.5 mm. Prevoid volume 108 cc.] 2 cc Ureteral jets: Visualized bilaterally US/US renal bladder IMPRESSION: No acute abnormality. Electronically authenticated by: LILIA PINA Date: 07/25/2024 11:00
== END 2024-07-25 07:32 | disposition home or self-care (01) ==
LOC: US 07:31
PROVIDERS: PCP Nurse Practitioner Family; Visit Provider Nurse Practitioner Family
DX: N39.0 Urinary tract infection, site not specified (principal)
CPT/HCPCS: 76770

== ENCOUNTER 2024-07-25 07:59 | Outpatient (OUT) | payer MEDICARE, SELFPAY ==
[2024-07-25 10:27] LABS: Alanine Aminotransferase 24 U/L (14-59); Albumin Globulin Ratio 0.9; Albumin Level 3.5 g/dL (3.4-5.0); Alkaline Phosphatase 121 U/L (46-116); Anion Gap 13.3; Aspartate Amino Transferase 18 U/L (15-37); BUN Creatinine Ratio 7.1; Bilirubin Total 0.5 mg/dL (0.2-1.0); Calcium 9.3 mg/dL (8.5-10.1); Carbon Dioxide 28.7 mmol/L (21.0-32.0); Chloride 98 mmol/L (98-107); Estimated GFR (African America >60 (>=60 mL/min/1.73m^2); Estimated GFR (Non-African Ame 59 (>=60 mL/min/1.73m^2); Globulin 3.8 g/dL; Glucose 80 mg/dL (74-106); Sodium 136 mmol/L (136-145); Total Protein 7.3 g/dL (6.4-8.2)
[2024-07-26 08:10] LABS: FSH 57.2 mIU/mL (.); Progesterone 0.3 ng/mL (.); Prolactin 9.3 ng/mL (3.6-25.2)
[2024-07-29 22:08] LABS: Estrogens, Total 59 pg/mL (.)
== END 2024-07-25 08:00 | disposition home or self-care (01) ==
LOC: LAB 08:02
PROVIDERS: PCP Nurse Practitioner Family; Visit Provider Nurse Practitioner Family
DX: R94.4 Abnormal results of kidney function studies (principal); N95.1 Menopausal and female climacteric states
CPT/HCPCS: 36415; 80053; 82672; 83001; 84144; 84146

== ENCOUNTER 2024-08-02 09:49 | Outpatient (OUT) | payer MEDICARE, SELFPAY ==
--- NOTE | 2024-08-02 10:00 | CA_ITS ---
Patient Name: JAVIER LINK MR#: [id number] : 1970 Exam Date: 08/02/2024 Ordering Doctor: DR DEENA BENTON M.D. ECHOCARDIOGRAM REPORT PROCEDURE: CA ECHO W/ CON INDICATIONS: Left ventricular thrombus, AICD, hypertension COMPARISON: None. DESCRIPTION: COMPLETE ECHOCARDIOGRAM Real-time transthoracic echocardiography with 2D, M-mode, spectral and color flow Doppler performed. QUALITY: Technical quality was good. Lumason contrast was administered to visualize left ventricle for possible thrombus. LEFT VENTRICLE: Normal chamber size. Normal left ventricular wall thickness.No ventricular thrombosis is seen. LV EF: Severely reduced left ventricular ejection fraction, 25%, apical septal, apical anterior, apical inferior, and apical lateral segments and apex are akinetic. DIASTOLIC: Grade I diastolic dysfunction ATRIAL SEPTUM: Visually appears intact. LEFT ATRIUM: Normal chamber size. RIGHT ATRIUM: Normal chamber size. RIGHT VENTRICLE: Normal chamber size.Systolic function appears reduced. Pacer wire present right atrium and right ventricle. TRICUSPID VALVE: Normal mobility and thickness. No stenosis with trivial regurgitation. No evidence of pulmonary hypertension.RVSP 19 mmHg MITRAL VALVE: Normal mobility and thickness. No evidence of mitral valve stenosis. There is no mitral annular calcification. Trivial mitral regurgitation. AORTIC VALVE: Normal trileaflet appearance. Mildly calcified aortic valve. Normal leaflet mobility. No aortic stenosis. Trivial aortic regurgitation. AORTIC ROOT: Normal diameter and appearance. PULMONIC VALVE: Not well visualized. PERICARDIUM: No evidence of pericardial effusion. IVC: Within normal limits. PLEURA: CONCLUSION: Severely reduced left ventricular systolic function with akinetic apex and apical segments of all estrada, ejection fraction 25% No left ventricle thrombus Mildly reduced right ventricular systolic function No pulmonary hypertension Pacemaker wires in the right cardiac chambers Trivial aortic insufficiency Adult Echocardiography Procedure Report Left Ventricle LVEDD (3.7 - 5.6 cm): 4.44 cm LVESD (2.2 - 4.0 cm): 3.67 cm LVIVS thickness (0.6 - 1.2 cm): 0.58 cm LVPW thickness (0.5 - 1.0 cm): 0.74 cm e': 0.09 m/s E - e': 6.33 LVOT Max Gradient: 2.11 mm[Hg] LVOT Area (cm2): 0.73 m/s Peak Velocity (LVOT): 0.73 m/s Mean Velocity (LVOT): 0.49 m/s LVOT Diameter 1.81 cm Left Ventricular Ejection Fraction: Left Atrium LA Volume Index (2D A2C): 33.75 ml/m2 Left Atrium Systolic Dimension: 3.14 cm Mitral Valve MV E to A Ratio: 0.74 MV Max Gradient: MV Mean Gradient: Mitral Valve A-Wave Peak Velocity: 0.77 m/s Mitral Valve E-Wave Peak Velocity: 0.57 m/s Cardiovascular Orifice Area: Right Ventricle RV Internal Diastolic Dimension: Aorta AO Root Diam: 2.68 cm Ascending Ao Diam: Aortic Valve AoV Area (Peak Mariano): 0.98 cm2, 0.98 cm2 AoV Area (VTI): 0.97 cm2, 0.97 cm2 Deceleration Laurens: Pressure Half-Time: Peak Velocity(Antegrade Flow): 1.89 m/s Peak Gradient(Antegrade Flow): 14.35 mm[Hg] Mean Velocity(Antegrade Flow): 1.32 m/s Mean Gradient(Antegrade Flow): 8.00 mm[Hg] Velocity Time Integral: 37.51 cm Tricuspid Valve Peak Velocity (Regurgitant Flow): 2.00 m/s Peak Velocity: Pulmonic Valve Mean Gradient: Mean Velocity: Peak Velocity: 0.57 m/s Peak Gradient: 1.30 mm[Hg] Right Atrium Right Atrium Systolic Pressure: 23.27 ml, 23.27 ml Dictated by: Flaco Jenkins MD on 08/02/2024 at 18:54 Approved by: Flaco Jenkins MD on 08/02/2024 at 19:05
[2024-08-02] MEDS: SULFUR HEXAFLUORIDE MICROSPHR 25 MG/5 ML VIAL IV (11:14)
== END 2024-08-02 09:50 | disposition home or self-care (01) ==
LOC: CARD 09:49
PROVIDERS: PCP Nurse Practitioner Family; Visit Provider Internal Medicine Interventional Cardiology
DX: I50.22 Chronic systolic (congestive) heart failure (principal); I51.3 Intracardiac thrombosis, not elsewhere classified
CPT/HCPCS: C8929; Q9950

== ENCOUNTER 2024-09-06 09:27 | Outpatient (RCR) | payer MEDICARE, SELFPAY | END 2024-09-06 14:16 | disposition home or self-care (01) | LOC: CRPH3 09:27 | PROVIDERS: PCP Nurse Practitioner Family; Visit Provider Internal Medicine Interventional Cardiology | DX: Z95.5 Presence of coronary angioplasty implant and graft (principal); I25.10 Atherosclerotic heart disease of native coronary artery without angina pectoris; I25.2 Old myocardial infarction; I50.9 Heart failure, unspecified; Z95.0 Presence of cardiac pacemaker ==

== ENCOUNTER 2024-09-26 13:03 | Outpatient (OUT) | payer MEDICARE, SELFPAY ==
[2024-09-26 13:15] LABS: Basophils Absolute Auto 0.1 10^3/uL (0.0-0.1); Basophils Percent Auto 0.7 % (0.2-2.0); Eosinophils Absolute Auto 0.1 10^3/uL (0.0-0.7); Eosinophils Percent Auto 1.4 % (0.9-7.0); Hematocrit 39.4 % (36.0-48.0); Hemoglobin 13.5 g/dL (12.0-16.0); Immature Granulocytes Abs Auto 0.01 10^3/uL (0.00-0.03); Immature Granulocytes Pct Auto 0.1 % (0.0-0.5); Lymphocytes Absolute Auto 2.2 10^3/uL (1.2-3.8); Mean Corpuscular HGB Conc 34.3 g/dL (29.9-35.2); Mean Corpuscular Hemoglobin 32.2 pg (26.7-34.0); Mean Platelet Volume 10.8 fL (9.5-13.5); Monocytes Absolute Auto 0.6 10^3/uL (0.3-0.8); Monocytes Percent Auto 7.5 % (1.7-12.0); Neutrophils Absolute Auto 4.8 10^3/uL (1.4-6.5); Neutrophils Percent Auto 62.3 % (43.0-75.0); Platelet Count 168 10^3/uL (150-450); Red Blood Count 4.19 10^6/uL (4.20-5.40); Red Cell Distribution Width 12.4 % (11.0-15.0); White Blood Count 7.7 10^3/uL (4.0-11.0)
--- OUTSIDE RECORDS SUMMARY | 2024-09-26 13:28 | XMS_ITS | CCD ---
Author Organization [facility] Informat ion Partnership [facility] Care Team Providers Care Wrapper Rewinder Name Role Phone RAFI IBSWAS Attending Unavailable MORIAH MACK Primary Care Unavailable MORIAH MACK Referring Unavailable RAFI BISWAS Admitting Unavailable None, No PCP Unavailable Unavailable Unavailable Unavailable DO Isidra Garibay Admit Provider [phone] DO Isidra Garibay Attending Provider NON STAFF [...] ZIEBER, DR ANGEL Ruiz Consulting Unavailable VALDEZ, [facility] Primary Care Unavailable MOUKARBEL, DR SHAFFER Attending Unavailable MOUKARBEL, DR SHAFFER Admitting Unavailable MOUKARBEL, DR SHAFFER Consulting Unavailable ANTHONY, YEELNA Consulting Unavailable VALDEZ, NIKKI Primary Care Unavailable [...] ., MEREDITH MEMBRENO Consulting Unavailabl e KIRA .HASMUKH Attending Unavailable HASMUKH HILTON Admitting Unavailable VALDEZ, NIKKI Primary Care Unavailable MARY ROJAS Consulting Unavailable MOUKARBEL, DR SHAFFER Admitting Unavailable MOUKARBEL, DR SHAFFER Attending Unavailable VALDEZ, [facility] Primary Care Unavailable MOUKARBEL, DR SHAFFER Consulting Unavailable VALDEZ, [facility] Primary Care Unavailable MOUKARBEL, DR SHAFFER Attending Unavailable MOUKARBEL, DR SHAFFER Admitting Unavailable FAWWAD, SWIFT H Admitting Unavailable FAWWAD, SWIFT H Attending Unavailable VALDEZ, NIKKI Primary Care Unavailable NON STAFF Primary Care Unavailable Isidra Garibay Attending Unavailable Isidra Garibay Admitting Unavailable ALTON PARKS Referring Unavailable ALTON PARKS Referring Unavailable ALTON PARKS Referring Unavailable OWEN, DELL Referring Unavailable ALTON PARKS Referring Unavailable OWEN, DELL Referring Unavailable OWEN, DELL Referring Unavailable ALTON PARKS Referring Unavailable ALTON PARKS Referring Unavailable ALTON PARKS Referring Unavailable BAILEY, ALTON Referring Unavailable OWEN, DELL Referring Unavailable OWEN, DLEL Referring Unavailable MOUKARBEL, DEENA Attending Unavailable BAILEY, ALTON Referring Unavailable BAILEY, ALTON Referring Unavailable OWEN, DELL Referring Unavailable ANTHONY, YELENA Attending Unavailable OWEN, DELL Referring Unavailable BAILEY, ALTON Referring Unavailable BAILEY, ALTON Referring Unavailable BAILEY, ALTON Referring Unavailable BAILEY, ALTON Referring Unavailable BAILEY, ALTON Referring Unavailable BAILEY, ALTON Referring Unavailable Allergies Allergy Classification Reported Allergen(s) Allergy Type Date of Onset Reaction(s) Facility (1 source) AVELOX IN NACL (ISO-OSMOTIC); Translations: [AVELOX IN NACL (ISO-OSMOTIC)] Propensity to adverse reactions (disorder) 1 [facility] Repository (4 sources) moxifloxacin; Translations: [Avelox] Drug Allergy [place] [id number] DO Work Phone: (3 sources) moxifloxacin; Translations: [moxifloxacin] Drug Allergy 2 [facility] (1 source) moxifloxacin Drug Allergy 3 The [facility] Repository (1 source) Chlorhexidine; Translations: [CHLORHEXIDINE GLUCONATE] Drug Allergy 0 [facility] Repository Medications Current Medications Medication Drug Class(es) Dates Sig (Normalized) Sig (Original) [id number] 200 actuat albuterol 0.09 mg/actuat metered dose [...] 2022 1:49pm take 1 capsule by mo [facility] three times daily as [...] 2022 6:58pm take 1 capsule by mo [facility] once daily before breakfast [...] MG Oral Tablet Take as directed by [facility] Quantity: 0 Refills: 0 Ordered: [...] sources) Coronary arteriosclerosis; Translations: [Coronary atherosclerosis of [place] coronary artery] Onset: 02-02-2022 Chronic Coronary atherosclerosis [...] COMP FLW AMI] Onset: 01-10-2022 Chronic Other nutritional; endocrine; and metabolic disorders [...] 06-03-2022 Episodic Other aftercare (1 source) Other bed bug exterminator (current) drug therapy; Translations: [OTH ASSISTED CURRENT DRUG THERAPY] Onset: 06-07-2022 Episodic Other aftercare (4 sources) Encounter for therapeutic drug level monitoring; Translations: [ENC THERAPEUTC DRUG LEVL MONITORING] Onset: 05-15-2022 Episodic Other aftercare (1 source) 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 (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) use of anticoagulants; Translations: [CERAMIC COATER MACHINE CURRNT USE ANTICOAGULANTS] Onset: 06-14-2022 Episodic Other screening for suspected conditions (not mental disorders or infectious disease) (1 source) Abnormal results of thyroid function studies; Translations: [ABNORMAL RESULTS THR FUNCTION STDY] Onset: 06-07-2022 Episodic Spondylosis; intervertebral disc disorders; other back problems (3 sources) Dorsalgia, unspecified; Translations: [DORSALGIA UNSPECIFIED] Onset: 01-10-2022 Episodic Urinary tract infections (1 source) Urinary tract infection, site not specified; Translations: [UTI SITE NOT SPECIFIED] Onset: 06-07-2022 Episodic Results Test Name Value Interpretation Reference Range Facility 36on 09-06-2024 36 Regarding echo resul t from 08/02/2024: MD Danielle Walters MA Her echo did not show clot in the heart. Same treatment and follow up as planned. Patient notified. [facility] Office Visiton 07-08-2024 Follow-up visit [id number] Javier Link 1970 F Date Provider Department Center 07/08/2024 JOSE DEENA [facility]3] Hos Family History Problem Relation Age of Onset Atrial fibrillation Mother Other Mother Heart attack Father Other Father Other Father Family Status - Relation Status Age at Mother Father Level of Service:40230 [place] OFFICE/OUTPATIENT ESTABLISHED MOD MDM 30 MIN [facility] Office Visiton 01-12-2024 Follow-up visit [id number] Javier Link 1970 F Date Provider Department Center 01/12/2024 Jaleel-YELENA CRUZ [facility]3] Hos Family History Problem Relation Age of Onset Atrial fibrillation Mother Other Mother Heart attack Father Other Father Other Father Family Status - Relation Status Age at Mother Father Level of Service:90023 [place] OFFICE/OUTPATIENT ESTABLISHED MOD MDM 30 MIN [facility] 36on 09-29-2023 36 Yes please! [facility] 36 Can we give patient sample? [facility] PROF CHEM 8 (BAS METB)on Anion gap [Moles/Vol] 14.8 mmol/L Normal [facility] Comment on above: Performed By: #### C BC #### [facility] [address] [address] [address] Vangie Devine Calcium [Mass/Vol] 8.9 mg/dL Normal 8.5-10.1 [facility] Comment on above: Performed By: #### C BC #### [facility] [address] [address] [address] Vangie Devine Chloride [Moles/Vol] 101 mmol/L Normal 98-107 [facility] Comment on above: Performed By: #### C BC #### [facility] [address] [address] [address] Vangie Devine CO2 [Moles/Vol] 25.9 mmol/L Normal 21.0-32.0 [facility] Comment on above: Performed By: #### C BC #### [facility] [address] [address] [address] Vangie Devine Creatinine [Mass/Vol] 0.91 mg/dL Normal 0.55-1.02 [facility] Comment on above: Performed By: #### C BC #### [facility] [address] [address] [address] Vangie Devine EGFR-AF ARGENTINE >60 Normal >=60 [facility] Comment on above: Performed By: #### C BC #### [facility] [address] [address] [address] Vangie Devine EGFR-NON AF ARGENTINE >60 Normal >=60 [facility] Comment on above: Performed By: #### C BC #### [facility] [address] [address] [address] Vangie Devine Glucose [Mass/Vol] 93 mg/dL Normal 74-106 [facility] Comment on above: Performed By: #### C BC #### [facility] [address] [place] [address] Dr. Vangie Devine Potassium [Moles/Vol] 4.7 mmol/L Normal 3.5-5.1 [facility] Comment on above: Performed By: #### C BC #### [facility] [address] [place] [address] Dr. Vangie Devine Sodium [Moles/Vol] 137 mmol/L Normal 136-145 [facility] Comment on above: Performed By: #### C BC #### [facility] [address] [place] [address] Dr. Vangie Devine Urea nitrogen [Mass/Vol] 9.0 mg/dL Normal 7.0-18.0 [facility] Comment on above: Performed By: #### C BC #### [facility] [address] [place] [address] Dr. Vangie Devine Urea nitrogen/Creatinine [Mass ratio] 9.9 mg/mg Normal [facility] Comment on above: Performed By: #### C BC #### [facility] [address] [place] [address] Dr. Vangie Devine PROF CHEM 8 (BAS METB)on Anion gap [Moles/Vol] 15.6 mmol/L Normal [facility] Comment on above: Performed By: #### P TT, PT #### [facility] [address] [address] [address] Vangie Devine Calcium [Mass/Vol] 8.9 mg/dL Normal 8.5-10.1 [facility] Comment on above: Performed By: #### P TT, PT #### [facility] [address] [address] [address] Vangie eDvine Chloride [Moles/Vol] 101 mmol/L Normal 98-107 [facility] Comment on above: Performed By: #### P TT, PT #### [facility] [address] [address] [address] Vangie Devine CO2 [Moles/Vol] 24.7 mmol/L Normal 21.0-32.0 [facility] Comment on above: Performed By: #### P TT, PT #### [facility] [address] [place] [address] Dr. Vangie Devine Creatinine [Mass/Vol] 0.95 mg/dL Normal 0.55-1.02 [facility] Comment on above: Performed By: #### P TT, PT #### [facility] [address] [address] [address] Vangie Devine EGFR-AF ARGENTINE >60 Normal >=60 [facility] Comment on above: Performed By: #### P TT, PT #### [facility] [address] [address] [address] Vangie Devine EGFR-NON AF ARGENTINE >60 Normal >=60 [facility] Comment on above: Performed By: #### P TT, PT #### [facility] [address] [address] [address] Vangie Devine Glucose [Mass/Vol] 101 mg/dL Normal 74-106 [facility] Comment on above: Performed By: #### P TT, PT #### [facility] [address] [address] [address] Vangie Devine Potassium [Moles/Vol] 4.3 mmol/L Normal 3.5-5.1 [facility] Comment on above: Performed By: #### P TT, PT #### [facility] [address] [place], [place] [address] Dr. Vangie Devine Sodium [Moles/Vol] 137 mmol/L Normal 136-145 [facility] Comment on above: Performed By: #### P TT, PT #### [facility] [address] [place], [place] [address] Dr. Vangie Devine Urea nitrogen [Mass/Vol] 15.0 mg/dL Normal 7.0-18.0 [facility] Comment on above: Performed By: #### P TT, PT #### [facility] [address] [place], [place] [address] Dr. Vangie Devine Urea nitrogen/Creatinine [Mass ratio] 15.8 mg/mg Normal [facility] Comment on above: Performed By: #### P TT, PT #### [facility] [address] [place], [place] [address] Dr. Vangie Devine NM STRESS/REST MULTIon 10-31 NM STRESS/REST MULTI Patient: JAVIER LINK Exam Date: 10/31/2022 : 1970 Gender:F Ordering : DR DEENA BENTON M.D. Admission #: [id number] Family : Order #: [id number] CLICK HERE TO VIEW EXAM RADIOLOGY REPORT [...] M.D. on 10/31/2022 at 14:45 Normal [facility] FREE THYROXINE INDEX T7on FTI 4.83 Critically high 1.30-4.50 [facility] Comment on above: Performed By: #### C BC #### [facility] [address] [address] [address] Vangie Devine T3U 35.0 % Normal 30.0-39.0 [facility] Comment on above: Performed By: #### C BC #### [facility] [address] [address] [address] Vangie Devine T4 [Mass/Vol] 13.80 ug/dL Normal 4.80-13.90 [facility] Comment on above: Performed By: #### C BC #### [facility] [address] [address] [address] Vangie Devine TSHon 07-20-2022 TSH 0.051 uIU/mL Critically low 0.358-3.740 [facility] Comment on above: Performed By: #### C BC #### [facility] [address] [address] [address] Vangie Devine ACETONE SERUMon 06-03-2022 ACETONE Negative Normal NEGATIVE [facility] Comment on above: Performed By: #### C BCMAN #### [facility] [address] [address] [address] Vangie Devine CBC AUTO DIFFon 06-03-2022 BASO # 0.1 103/ul Normal 0.0-0.1 [facility] Comment on above: Performed By: #### C JOBY #### [facility] [address] [place] [address] Dr. Vangie Devine Basophils/100 WBC (Bld) 0.6 % Normal 0.2-2.0 [facility] Comment on above: Performed By: #### C BCHERIBERTO #### [facility] [address] [place] [address] Dr. Vangie Devine EO # 0.3 103/ul Normal 0.0-0.7 [facility] Comment on above: Performed By: #### C JOBY #### [facility] [address] [place] [address] Dr. Vangie Devine Eosinophils/100 WBC (Bld) 1.4 % Normal 0.9-7.0 [facility] Comment on above: Performed By: #### C JOBY #### [facility] [address] [place] [address] Dr. Vangie Devine Erythrocyte distribution width (RBC) [Ratio] 13.2 % Normal 11.0-15.0 [facility] Comment on above: Performed By: #### C JOBY #### [facility] [address] [place] [address] Dr. Vangie Devine Hematocrit (Bld) [Volume fraction] 44.8 % Normal 36.0-48.0 [facility] Comment on above: Performed By: #### C BCHERIBERTO #### [facility] [address] [place] [address] Dr. Vangie Devine Hemoglobin (Bld) [Mass/Vol] 15.0 g/dL Normal 12.0-16.0 [facility] Comment on above: Performed By: #### C JOBY #### [facility] [address] [place] [address] Dr. Vangie Devine IG # 0.06 10e3/ul Critically high 0.00-0.03 [facility] Comment on above: Performed By: #### C JOBY #### [facility] [address] [address] [address] Vangie Devine IG % 0.3 % Normal 0.0-0.5 [facility] Comment on above: Performed By: #### C JOBY #### [facility] [address] [address] [address] Vangie Devine LYMPH # 3.5 103/ul Normal 1.2-3.8 [facility] Comment on above: Performed By: #### C JOBY #### [facility] [address] [address] [address] Vangie Devine Lymphocytes/100 WBC (Bld) 19.8 % Critically low 20.5-60.0 [facility] Comment on above: Performed By: #### C JOBY #### [facility] [address] [place] [address] Dr. Vangie Devine MANUAL DIFF REQ NO Normal [facility] Comment on above: Performed By: #### C JOBY #### [facility] [address] [place] [address] Dr. Vangie Devine MCH (RBC) [Entitic mass] 31.1 pg Normal 26.7-34.0 [facility] Comment on above: Performed By: #### C JOBY #### [facility] [address] [place] [address] Dr. Vangie Devine MCHC (RBC) [Mass/Vol] 33.5 g/dL Normal 29.9-35.2 [facility] Comment on above: Performed By: #### C JOBY #### [facility] [address] [place] [address] Dr. Vangie Devine MCV (RBC) [Entitic vol] 92.8 fL Normal 81.0-99.0 [facility] Comment on above: Performed By: #### C JOBY #### [facility] [address] [address] [address] Vangie Devine MONO # 1.1 103/ul Critically high 0.3-0.8 [facility] Comment on above: Performed By: #### C JOBY #### [facility] [address] [address] [address] Vangie Devine Monocytes/100 WBC (Bld) 6.0 % Normal 1.7-12.0 [facility] Comment on above: Performed By: #### C JOBY #### [facility] [address] [address] [address] Vangie Devine NEUT # 12.6 103/ul Critically high 1.4-6.5 [facility] Comment on above: Performed By: #### C JOBY #### [facility] [address] [address] [address] Vangie Devine Neutrophils/100 WBC (Bld) 71.9 % Normal 43.0-75.0 [facility] Comment on above: Performed By: #### C JOBY #### [facility] [address] [place] [address] Dr. Vangie Devine Platelet mean volume (Bld) [Entitic vol] 11.0 fL Normal 9.5-13.5 [facility] Comment on above: Performed By: #### C JOBY #### [facility] [address] [address] [address] Vangie Devine PLT 179 103/ul Normal 150-450 [facility] Comment on above: Performed By: #### C JOBY #### [facility] [address] [place] [address] Dr. Vangie Devine RBC 4.83 106/ul Normal 4.20-5.40 [facility] Comment on above: Performed By: #### C JOBY #### [facility] [address] [place] [address] Dr. Vangie Dveine WBC 17.5 103/ul Critically high 4.0-11.0 [facility] Comment on above: Performed By: #### C JOBY #### [facility] [address] [place] [address] HEAD WO CONon [...] MARY ROJAS Date: 2022-06-03 19:15 Normal [facility] CULTURE URINEon 06-03-2022 CULTURE URINE Culture Observations : NO GROWTH. Normal [facility] Comment on above: Performed By: #### P TT, PT #### [facility] [address] [address] [address] Vangie Dev[facility]15 SARS-CoV-2 (COVID-19) RNA SAMIR+probe Ql (Unsp spec) Not detected Normal NOT DETECTED [facility] Comment on above: Result Comment: When diagnostic [...] for this test is supported by the [place] of Health and Human Service's declaration that [...] used). Performed By: #### C BCMAN #### [facility] [address] [place] [address] Dr. Vangie MARK URINE PROFILEon 2 Bilirubin Ql (U) Negative Normal NEGATIVE [facility] Comment on above: Performed By: #### C BC #### [facility] [address] [place] [address] Dr. Vangie Devine Clarity (U) CLEAR Normal CLEAR [facility] Comment on above: Performed By: #### C BC #### [facility] [address] [place] [address] Dr. Vangie Devine Color (U) LT. YELLOW Normal YELLOW [facility] Comment on above: Performed By: #### C BC #### [facility] [address] [place] [address] Dr. Vangie Devine ERUAHTu A micrscopic examination will be performed if indicated. Normal [facility] Comment on above: Performed By: #### C BC #### [facility] [address] [place] [address] Dr. Vangie Devine Glucose Ql (U) 250 mg/dl Abnormal NEGATIVE [facility] Comment on above: Performed By: #### C BC #### [facility] [address] [place] [address] Dr. Vangie Devine Hemoglobin Ql (U) Negative Normal NEGATIVE [facility] Comment on above: Performed By: #### C BC #### [facility] [address] [place] [address] Dr. Vangie Devine Ketones Ql (U) Negative Normal NEGATIVE [facility] Comment on above: Performed By: #### C BC #### [facility] [address] [place] [address] Dr. Vangie Devine LEUKOCYTES Negative Normal NEGATIVE [facility] Comment on above: Performed By: #### C BC #### [facility] [address] [place] [address] Dr. Vangie Devine Nitrite Ql (U) Positive Abnormal NEGATIVE [facility] Comment on above: Performed By: #### C BC #### [facility] [address] [place] [address] Dr. Vangie Devine pH (U) 6.0 [pH] Normal 5-9 [facility] Comment on above: Performed By: #### C BC #### [facility] [address] [place] [address] Dr. Vangie Devine SPEC GRAVITY <=1.005 Abnormal 1.005-<=1.025 [facility] Comment on above: Performed By: #### C BC #### [facility] [address] [place] [address] Dr. Vangie Devine UA PROTEIN Negative Normal NEGATIVE/ TRACE [facility] Comment on above: Performed By: #### C BC #### [facility] [address] [place] [address] Dr. Vangie Devine UR MICRO IND INDICATED Normal [facility] Comment on above: Performed By: #### C BC #### [facility] [address] [place] [address] Dr. Vangie Devine Urobilinogen Qn (U) 0.2 {Jewel'U}/dL Normal 0.2 - 1. 0 [facility] Comment on above: Performed By: #### C BC #### [facility] [address] [place] [address] Dr. Vangie Devine FREE T3on 06-03-2022 FREE T3 2.42 pg/mlL Normal 2.18-3.98 [facility] Comment on above: Performed By: #### F T3 #### [facility] [address] [place] [address] Dr. Vangie Devine FREE T4on 06-03-2022 Free T4 [Mass/Vol] 1.93 ng/dL Critically high 0.76-1.46 [facility] Comment on above: Performed By: #### C BCMAN #### [facility] [address] [place] [address] Dr. Vangie Devine LACTATE/LACTIC ACIDon 2021 Lactate [Moles/Vol] 1.2 mmol/L Normal 0.4-1.9 [facility] Comment on above: Performed By: #### C BCHERIBERTO #### [facility] [address] [address] [address] Vangie Devine PROF 14(COMP METB)on 022 Albumin [Mass/Vol] 3.9 g/dL Normal 3.4-5.0 [facility] Comment on above: Performed By: #### H STROPN, TSH, CMP #### [facility] [address] [address] [address] Vangie Devine Albumin/Globulin [Mass ratio] 0.9 {ratio} Normal [facility] Comment on above: Performed By: #### H STROPN, TSH, CMP #### [facility] [address] [address] [address] Vangie Devine ALP [Catalytic activity/Vol] 138 U/L Critically high 46-116 [facility] Comment on above: Performed By: #### H STROPN, TSH, CMP #### [facility] [address] [address] [address] Vangie Devine ALT [Catalytic activity/Vol] 24 U/L Normal 14-59 [facility] Comment on above: Performed By: #### H STRONANCY, TSH, CMP #### [facility] [address] [address] [address] Vangie Devine Anion gap [Moles/Vol] 11.4 mmol/L Normal [facility] Comment on above: Performed By: #### H STROPN, TSH, CMP #### [facility] [address] [address] [address] Vangie Devine AST [Catalytic activity/Vol] 23 U/L Normal 15-37 [facility] Comment on above: Performed By: #### H STROPN, TSH, CMP #### [facility] [address] [address] [address] Vangie Devine Bilirubin [Mass/Vol] 0.5 mg/dL Normal 0.2-1.0 [facility] Comment on above: Performed By: #### H STROPN, TSH, CMP #### [facility] [address] [address] [address] Vangie Devine Calcium [Mass/Vol] 9.5 mg/dL Normal 8.5-10.1 [facility] Comment on above: Performed By: #### H STROPN, TSH, CMP #### [facility] [address] [address] [address] Vangie Devien Chloride [Moles/Vol] 98 mmol/L Normal 98-107 [facility] Comment on above: Performed By: #### H STROPN, TSH, CMP #### [facility] [address] [address] [address] Vangie Devine CO2 [Moles/Vol] 25.3 mmol/L Normal 21.0-32.0 The [facility] Comment on above: Performed By: #### H STROPN, TSH, CMP #### [facility] [address] [address] [address] Vangie Devine Creatinine [Mass/Vol] 0.90 mg/dL Normal 0.55-1.02 [facility] Comment on above: Performed By: #### H STROPN, TSH, CMP #### [facility] [address] [address] [address] Vangie Devine EGFR-AF ARGENTINE >60 Normal >=60 [facility] Comment on above: Performed By: #### H STROPN, TSH, CMP #### [facility] [address] [address] [address] Vangie Devine EGFR-NON AF ARGENTINE >60 Normal >=60 [facility] Comment on above: Performed By: #### H STROPN, TSH, CMP #### [facility] [address] [address] [address] Vangie Devine Globulin (S) [Mass/Vol] 4.2 g/dL Normal [facility] Comment on above: Performed By: #### H STROPN, TSH, CMP #### [facility] [address] [address] [address] Vangie Devine Glucose [Mass/Vol] 93 mg/dL Normal 74-106 [facility] Comment on above: Performed By: #### H STROPN, TSH, CMP #### [facility] [address] [address] [address] Vangie Devine Potassium [Moles/Vol] 3.7 mmol/L Normal 3.5-5.1 [facility] Comment on above: Performed By: #### H STROPN, TSH, CMP #### [facility] [address] [address] [address] Vangie Devine Protein [Mass/Vol] 8.1 g/dL Normal 6.4-8.2 [facility] Comment on above: Performed By: #### H STROPN, TSH, CMP #### [facility] [address] [place] [address] Dr. Vangie Devine Sodium [Moles/Vol] 131 mmol/L Critically low 136-145 [facility] Comment on above: Performed By: #### H STROPN, TSH, CMP #### [facility] [address] [place] [address] Dr. Vangie Devine Urea nitrogen [Mass/Vol] 14.0 mg/dL Normal 7.0-18.0 [facility] Comment on above: Performed By: #### H STRONANCY, TSH, CMP #### [facility] [address] [place] [address] Dr. Vangie Devine Urea nitrogen/Creatinine [Mass ratio] 15.6 mg/mg Normal [facility] Comment on above: Performed By: #### H STROPN, TSH, CMP #### [facility] [address] [place] [address] Dr. Vangie Devine PROTIMEon 06-03-2022 INR Coag (PPP) [Relative time] 1.06 {INR} Normal [facility] Comment on above: Performed By: #### C BCMAN #### [facility] [address] [place] [address] Dr. Vangie Devine INR GUIDELINES SEE BELOW Normal [facility] Comment on above: Result Comment: MARY ANN RED INR: 2.0 - 3.0 CONDITIONS NOT LISTED BELOW 2.5 - 3.5 FOR PROSTHETIC HEART VALVE REPLACEMENT 2.5 - 3.5 RECURRENT THROMBOSIS Performed By: #### C JANNETTEMAN #### [facility] [address] [place] [address] Dr. Vangie Devine PT Coag (PPP) [Time] 11.4 s Normal 9.0-11.6 [facility] Comment on above: Performed By: #### C BCMAN #### [facility] [address] [place] [address] Dr. Vangie Devine PTTon 06-03-2022 aPTT Coag (Bld) [Time] 31.3 s Normal 22.3-36.2 [facility] Comment on above: Performed By: #### C BCMAN #### [facility] [address] [place] [address] Dr. Vangie Devine TROPONIN, HIGH SENSITIVITYon 06-03-2022 HSTROP 26.3 pg/mL Normal 4.0-51.3 [facility] Comment on above: Result Comment: CUT- OFF POINTS HAVE BEEN ESTABLISHED BASED ON THE FOURTH UNIVERSAL DEFINITIONS OF MYOCARDIAL INFARCTION. THE UPPER REFERENCE LIMIT (URL) OF TROPONIN, DEFINED THE 99TH PERCENTILE OF cTnI DISTRIBUTION IN A REFERENCE POPULATION, HAS BEEN CONFIRMED THE DECISION THRESHOLD FOR OR DIAGNOSIS. Performed By: #### P TT, PT #### [facility] [address] [place] [address] Dr. Vangie Devine TSHon 06-03-2022 TSH 0.150 uIU/mL Critically low 0.358-3.740 [facility] Comment on above: Performed By: #### P TT, PT #### [facility] [address] [place] [address] Dr. Vangie Devine URINE MICROSCOPIC ONLYon BACTERIA TRACE Abnormal NONE SEEN [facility] Comment on above: Performed By: #### C BC #### [facility] [address] [place] [address] Dr. Vangie Devine Bacteria identified Cx Nom (U) INDICATED Normal [facility] Comment on above: Result Comment: dory cated due to positive nitrite Performed By: #### C BC #### [facility] [address] [place] [address] Dr. Vangie Devine CAST NONE SEEN Normal NONE SEEN [facility] Comment on above: Performed By: #### C BC #### [facility] [address] [address] [address] Vangie Devine Crystals LM Nom (Urine sed) NONE SEEN Normal NONE SEEN The [facility] Comment on above: Performed By: #### C BC #### [facility] [address] [place] [address] Dr. Vangie Devine Epithelial cells LM Ql (Urine sed) RARE Normal NONE SEEN /RARE The [facility] Comment on above: Performed By: #### C BC #### [facility] [address] [place] [address] Dr. Vangie Devine MUCOUS NONE SEEN Normal NONE SEEN The [facility] Comment on above: Performed By: #### C BC #### [facility] [address] [place] [address] Dr. Vangie Devine RBC 0-2 Normal 0-2 [facility] Comment on above: Performed By: #### C BC #### [facility] [address] [place] [address] Dr. Vangie Devine WBC 0-2 Abnormal NONE SEEN The [facility] Comment on above: Performed By: #### C BC #### [facility] [address] [place] [address] Dr. Vangie Devine XR CHEST 1 Von [...] MARY ROJAS Date: 2022-06-03 19:25 Normal The [facility] XR CHEST 2 Von 05-18-2022 XR CHEST [...] ANGEL SHAFFER Date: 2022-05-18 10:55 Normal [facility] Covid-19 PCR (CVDTB)on SARS-CoV-2 (COVID-19) RNA SAMIR+probe Ql (Unsp spec) Not detected Normal NOT DETECTED The [facility] Comment on above: Result Comment: This test is not yet approved or cleared by the [place] FDA. When there are no FDA-approved or cleared tests available, and other criteria are met, FDA can make tests available under an emergency access mechanism called an Emergency Use Authorization (EUA). The EUA for this test is supported by the Training And Development Officer of Health and Human Service's (HHS's) declaration [...] Performed By: #### P TT, PT #### [facility] [address] [address] [address] Vangie Devine CBC AUTO DIFFon 05-12-2022 BASO # 0.1 103/ul Normal 0.0-0.1 [facility] Comment on above: Performed By: #### C BC #### [facility] [address] [address] [address] Vangie Devine Basophils/100 WBC (Bld) 0.7 % Normal 0.2-2.0 [facility] Comment on above: Performed By: #### C BC #### [facility] [address] [address] [address] Vangie Devine EO # 0.2 103/ul Normal 0.0-0.7 [facility] Comment on above: Performed By: #### C BC #### [facility] [address] [place] [address] Dr. Vangie Devine Eosinophils/100 WBC (Bld) 2.1 % Normal 0.9-7.0 [facility] Comment on above: Performed By: #### C BC #### [facility] [address] [place] [address] Dr. Vangie Devine Erythrocyte distribution width (RBC) [Ratio] 13.1 % Normal 11.0-15.0 [facility] Comment on above: Performed By: #### C BC #### [facility] [address] [place] [address] Dr. Vangie Devine Hematocrit (Bld) [Volume fraction] 43.2 % Normal 36.0-48.0 [facility] Comment on above: Performed By: #### C BC #### [facility] [address] [place] [address] Dr. Vangie Devine Hemoglobin (Bld) [Mass/Vol] 14.2 g/dL Normal 12.0-16.0 [facility] Comment on above: Performed By: #### C BC #### [facility] [address] [place] [address] Dr. Vangie Devine IG # 0.02 10e3/ul Normal 0.00-0.03 [facility] Comment on above: Performed By: #### C BC #### [facility] [address] [place] [address] Dr. Vangie Devine IG % 0.2 % Normal 0.0-0.5 [facility] Comment on above: Performed By: #### C BC #### [facility] [address] [place] [address] Dr. Vangie Devine LYMPH # 1.9 103/ul Normal 1.2-3.8 [facility] Comment on above: Performed By: #### C BC #### [facility] [address] [place] [address] Dr. Vangie Devine Lymphocytes/100 WBC (Bld) 22.2 % Normal 20.5-60.0 [facility] Comment on above: Performed By: #### C BC #### [facility] [address] [place] [address] Dr. Vangie Devine MANUAL DIFF REQ NO Normal [facility] Comment on above: Performed By: #### C BC #### [facility] [address] [place] [address] Dr. Vangie Devine MCH (RBC) [Entitic mass] 30.5 pg Normal 26.7-34.0 [facility] Comment on above: Performed By: #### C BC #### [facility] [address] [place] [address] Dr. Vangie Devine MCHC (RBC) [Mass/Vol] 32.9 g/dL Normal 29.9-35.2 [facility] Comment on above: Performed By: #### C BC #### [facility] [address] [place] [address] Dr. Vangie Devine MCV (RBC) [Entitic vol] 92.7 fL Normal 81.0-99.0 [facility] Comment on above: Performed By: #### C BC #### [facility] [address] [place] [address] Dr. Vangie Devine MONO # 0.5 103/ul Normal 0.3-0.8 [facility] Comment on above: Performed By: #### C BC #### [facility] [address] [place] [address] Dr. Vangie Devine Monocytes/100 WBC (Bld) 6.0 % Normal 1.7-12.0 [facility] Comment on above: Performed By: #### C BC #### [facility] [address] [place] [address] Dr. Vangie Devine NEUT # 6.0 103/ul Normal 1.4-6.5 [facility] Comment on above: Performed By: #### C BC #### [facility] [address] [place] [address] Dr. Vangie Devine Neutrophils/100 WBC (Bld) 68.8 % Normal 43.0-75.0 [facility] Comment on above: Performed By: #### C BC #### [facility] [address] [place] [address] Dr. Vangie Devine Platelet mean volume (Bld) [Entitic vol] 11.7 fL Normal 9.5-13.5 [facility] Comment on above: Performed By: #### C BC #### [facility] [address] [place] [address] Dr. Vangie Devine PLT 176 103/ul Normal 150-450 [facility] Comment on above: Performed By: #### C BC #### [facility] [address] [place] [address] Dr. Vangie Devine RBC 4.66 106/ul Normal 4.20-5.40 [facility] Comment on above: Performed By: #### C BC #### [facility] [address] [place] [address] Dr. Vangie Devine WBC 8.7 103/ul Normal 4.0-11.0 [facility] Comment on above: Performed By: #### C BC #### [facility] [address] [place] [address] Dr. Vangie Devine PROF CHEM 8 (BAS METB)on Anion gap [Moles/Vol] 13.9 mmol/L Normal [facility] Comment on above: Performed By: #### C BC #### [facility] [address] [place] [address] Dr. Vangie Devine Calcium [Mass/Vol] 9.2 mg/dL Normal 8.5-10.1 [facility] Comment on above: Performed By: #### C BC #### [facility] [address] [address] [address] Vangie Devine Chloride [Moles/Vol] 101 mmol/L Normal 98-107 [facility] Comment on above: Performed By: #### C BC #### [facility] [address] [address] [address] Vangie Devine CO2 [Moles/Vol] 24.2 mmol/L Normal 21.0-32.0 [facility] Comment on above: Performed By: #### C BC #### [facility] [address] [place] [address] Dr. Vangie Devine Creatinine [Mass/Vol] 0.87 mg/dL Normal 0.55-1.02 [facility] Comment on above: Performed By: #### C BC #### [facility] [address] [place] [address] Dr. Vangie Devine EGFR-AF ARGENTINE >60 Normal >=60 [facility] Comment on above: Performed By: #### C BC #### [facility] [address] [place] [address] Dr. Vangie Devine EGFR-NON AF ARGENTINE >60 Normal >=60 [facility] Comment on above: Performed By: #### C BC #### [facility] [address] [place] [address] Dr. Vangie Devine Glucose [Mass/Vol] 89 mg/dL Normal 74-106 [facility] Comment on above: Performed By: #### C BC #### [facility] [address] [place] [address] Dr. Vangie Devine Potassium [Moles/Vol] 4.1 mmol/L Normal 3.5-5.1 [facility] Comment on above: Performed By: #### C BC #### [facility] [address] [place] [address] Dr. Vangie Devine Sodium [Moles/Vol] 135 mmol/L Critically low 136-145 [facility] Comment on above: Performed By: #### C BC #### [facility] [address] [place] [address] Dr. Vangie Devine Urea nitrogen [Mass/Vol] 9.0 mg/dL Normal 7.0-18.0 [facility] Comment on above: Performed By: #### C BC #### [facility] [address] [place] [address] Dr. Vangie Devine Urea nitrogen/Creatinine [Mass ratio] 10.3 mg/mg Normal [facility] Comment on above: Performed By: #### C BC #### [facility] [address] [place] [address] Dr. Vangie Devine PROTIMEon 05-12-2022 INR Coag (PPP) [Relative time] 1.96 {INR} Normal [facility] Comment on above: Performed By: #### P T #### [facility] [address] [place] [address] Dr. Vangie Devine INR GUIDELINES SEE BELOW Normal [facility] Comment on above: Result Comment: MARY ANN RED INR: 2.0 - 3.0 CONDITIONS NOT LISTED BELOW 2.5 - 3.5 FOR PROSTHETIC HEART VALVE REPLACEMENT 2.5 - 3.5 RECURRENT THROMBOSIS Performed By: #### P T #### [facility] [address] [place] [address] Dr. Vangie Devine PT Coag (PPP) [Time] 20.3 s Critically high 9.0-11.6 [facility] Comment on above: Performed By: #### P T #### [facility] [address] [place] [address] Dr. Vangie Devine T4, T3U, FTI LABCORPon 05-07 Free Thyroxine Index 4.7 Normal 1.2-4.9 [facility] Comment on above: Performed By: #### T HYLC #### [facility] [address] [place] [address] Dr. Vangie Devine T3 Uptake 34 % Normal 24-39 [facility] Comment on above: Performed By: #### T HYLC #### [facility] [address] [place] [address] Dr. Vangie Devine T4 [Mass/Vol] 13.8 ug/dL Critically high 4.5-12.0 [facility] Comment on above: Performed By: #### T HYLC #### [facility] [address] [place], [place] [address] Dr. Vangie Devine TSHon 05-06-2022 TSH 0.063 uIU/mL Critically low 0.358-3.740 [facility] Comment on above: Performed By: #### T #### [facility] [address] [place], [place] [address] Dr. Vangie Devine ECHOCARDIO M/2D COMPLETEon 0 03-31-2022 ECHOCARDIO M/2D COMPLETE Patient: JAVIER LINK Exam Date: 03/31/2022 : 1970 Gender:F Ordering : DR DEENA BENTON M.D. Admission #: [id number] Family : Order #: [id number] CLICK HERE TO VIEW EXAM ECHOCARDIOGRAM REPORT [...] M.D. on 03/31/2022 at 18:35 Normal The [facility] CBC AUTO DIFFon 03-28-2022 BASO # 0.1 103/ul Normal 0.0-0.1 [facility] Comment on above: Performed By: #### C BC #### [facility] [address] [address] [address] Vangie Devine Basophils/100 WBC (Bld) 0.6 % Normal 0.2-2.0 [facility] Comment on above: Performed By: #### C BC #### [facility] [address] [address] [address] Vangie Devine EO # 0.2 103/ul Normal 0.0-0.7 [facility] Comment on above: Performed By: #### C BC #### [facility] [address] [address] [address] Vangie Devine Eosinophils/100 WBC (Bld) 2.0 % Normal 0.9-7.0 [facility] Comment on above: Performed By: #### C BC #### [facility] [address] [address] [address] Vangie Devine Erythrocyte distribution width (RBC) [Ratio] 12.7 % Normal 11.0-15.0 [facility] Comment on above: Performed By: #### C BC #### [facility] [address] [address] [address] Vangie Devine Hematocrit (Bld) [Volume fraction] 42.6 % Normal 36.0-48.0 [facility] Comment on above: Performed By: #### C BC #### [facility] [address] [address] [address] Vangie Devine Hemoglobin (Bld) [Mass/Vol] 13.9 g/dL Normal 12.0-16.0 [facility] Comment on above: Performed By: #### C BC #### [facility] [address] [place] [address] Dr. Vangie Devine IG # 0.03 10e3/ul Normal 0.00-0.03 [facility] Comment on above: Performed By: #### C BC #### [facility] [address] [place] [address] Dr. Vangie Devine IG % 0.4 % Normal 0.0-0.5 [facility] Comment on above: Performed By: #### C BC #### [facility] [address] [place] [address] Dr. Vangie Devine LYMPH # 2.3 103/ul Normal 1.2-3.8 [facility] Comment on above: Performed By: #### C BC #### [facility] [address] [place] [address] Dr. Vangie Devine Lymphocytes/100 WBC (Bld) 28.7 % Normal 20.5-60.0 [facility] Comment on above: Performed By: #### C BC #### [facility] [address] [place] [address] Dr. Vangie Devine MANUAL DIFF REQ NO Normal [facility] Comment on above: Performed By: #### C BC #### [facility] [address] [place] [address] Dr. Vangie Devine MCH (RBC) [Entitic mass] 31.0 pg Normal 26.7-34.0 [facility] Comment on above: Performed By: #### C BC #### [facility] [address] [place] [address] Dr. Vangie Devine MCHC (RBC) [Mass/Vol] 32.6 g/dL Normal 29.9-35.2 [facility] Comment on above: Performed By: #### C BC #### [facility] [address] [place] [address] Dr. Vangie Devine MCV (RBC) [Entitic vol] 95.1 fL Normal 81.0-99.0 [facility] Comment on above: Performed By: #### C BC #### [facility] [address] [place] [address] Dr. Vangie Devine MONO # 0.5 103/ul Normal 0.3-0.8 [facility] Comment on above: Performed By: #### C BC #### [facility] [address] [place] [address] Dr. Vangie Devine Monocytes/100 WBC (Bld) 6.8 % Normal 1.7-12.0 [facility] Comment on above: Performed By: #### C BC #### [facility] [address] [place] [address] Dr. Vangie Devine NEUT # 4.9 103/ul Normal 1.4-6.5 [facility] Comment on above: Performed By: #### C BC #### [facility] [address] [place] [address] Dr. Vangie Devine Neutrophils/100 WBC (Bld) 61.5 % Normal 43.0-75.0 [facility] Comment on above: Performed By: #### C BC #### [facility] [address] [place] [address] Dr. Vangie Devine Platelet mean volume (Bld) [Entitic vol] 11.0 fL Normal 9.5-13.5 [facility] Comment on above: Performed By: #### C BC #### [facility] [address] [place] [address] Dr. Vangie Devine PLT 224 103/ul Normal 150-450 [facility] Comment on above: Performed By: #### C BC #### [facility] [address] [place] [address] Dr. Vangie Devine RBC 4.48 106/ul Normal 4.20-5.40 [facility] Comment on above: Performed By: #### C BC #### [facility] [address] [place] [address] Dr. Vangie Devine WBC 7.9 103/ul Normal 4.0-11.0 [facility] Comment on above: Performed By: #### C BC #### [facility] [address] [place] [address] Dr. Vangie Devine LIPID PROFILEon 03-28-2022 CHOL-HDL RATIO NORM SEE BELOW Normal [facility] Comment on above: Result Comment: 3.3 - 4.4 LOW RISK 4.4 - 7.1 AVERAGE RISK 7.1 - 11.0 MODERATE RISK >11.0 HIGH RISK Performed By: #### C BC #### [facility] [address] [address] [address] Vangie Devine Cholesterol [Mass/Vol] 103 mg/dL Normal <=200 [facility] Comment on above: Performed By: #### C BC #### [facility] [address] [address] [address] Vangie Devine Cholesterol in HDL [Mass/Vol] 39 mg/dL Critically low 40-60 [facility] Comment on above: Performed By: #### C BC #### [facility] [address] [address] [address] Vangie Devine Cholesterol in LDL [Mass/Vol] 46.8 mg/dL Normal [facility] Comment on above: Performed By: #### C BC #### [facility] [address] [address] [address] Vangie Devine Cholesterol.total/Chol esterol in HDL [Mass ratio] 2.6 {ratio} Normal [facility] Comment on above: Performed By: #### C BC #### [facility] [address] [address] [address] Vangie Devine HDL NORMAL > or = 60 mg/dl - LO W CARDIOVASCULAR RISK <40 mg/dl - HIGH CARDIOVASCULAR RISK Normal [facility] Comment on above: Performed By: #### C BC #### [facility] [address] [address] [address] Vangie Devine LDL CALC NORMAL SEE BELOW Normal [facility] Comment on above: Result Comment: <100 mg/dl OPTIMAL 100 - 129 mg/dl NEAR OR ABOVE OPTIMAL 130 - 159 mg/dl BORDERLINE HIGH 160 - 189 mg/dl HIGH >190 mg/dl VERY HIGH Performed By: #### C BC #### [facility] [address] [address] [address] Vangie Devnie Triglyceride [Mass/Vol] 86 mg/dL Normal <=150 [facility] Comment on above: Performed By: #### C BC #### [facility] [address] [place] [address] Dr. Vangie Devine VLDL CALC 17.2 mg/dL Normal [facility] Comment on above: Performed By: #### C BC #### [facility] [address] [place] [address] Dr. Vangie Devine PROF 14(COMP METB)on 022 Albumin [Mass/Vol] 3.5 g/dL Normal 3.4-5.0 [facility] Comment on above: Performed By: #### C BC #### [facility] [address] [place] [address] Dr. Vangie Devine Albumin/Globulin [Mass ratio] 0.9 {ratio} Normal [facility] Comment on above: Performed By: #### C BC #### [facility] [address] [place] [address] Dr. Vangie Devine ALP [Catalytic activity/Vol] 127 U/L Critically high 46-116 [facility] Comment on above: Performed By: #### C BC #### [facility] [address] [place] [address] Dr. Vangie Devine ALT [Catalytic activity/Vol] 29 U/L Normal 14-59 [facility] Comment on above: Performed By: #### C BC #### [facility] [address] [place] [address] Dr. Vangie Devine Anion gap [Moles/Vol] 15.3 mmol/L Normal [facility] Comment on above: Performed By: #### C BC #### [facility] [address] [place] [address] Dr. Vangie Devine AST [Catalytic activity/Vol] 21 U/L Normal 15-37 [facility] Comment on above: Performed By: #### C BC #### [facility] [address] [place] [address] Dr. Vangie Devine Bilirubin [Mass/Vol] 0.5 mg/dL Normal 0.2-1.0 [facility] Comment on above: Performed By: #### C BC #### [facility] [address] [address] [address] Vangie Devine Calcium [Mass/Vol] 8.9 mg/dL Normal 8.5-10.1 [facility] Comment on above: Performed By: #### C BC #### [facility] [address] [address] [address] Vangie Devine Chloride [Moles/Vol] 101 mmol/L Normal 98-107 [facility] Comment on above: Performed By: #### C BC #### [facility] [address] [address] [address] Vangie Devine CO2 [Moles/Vol] 25.8 mmol/L Normal 21.0-32.0 The [facility] Comment on above: Performed By: #### C BC #### [facility] [address] [place] [address] Dr. Vangie Devine Creatinine [Mass/Vol] 0.89 mg/dL Normal 0.55-1.02 [facility] Comment on above: Performed By: #### C BC #### [facility] [address] [place] [address] Dr. Vangie Devine EGFR-AF ARGENTINE >60 Normal >=60 [facility] Comment on above: Performed By: #### C BC #### [facility] [address] [place] [address] Dr. Vangie Devine EGFR-NON AF ARGENTINE >60 Normal >=60 [facility] Comment on above: Performed By: #### C BC #### [facility] [address] [place] [address] Dr. Vangie Devine Globulin (S) [Mass/Vol] 4.1 g/dL Normal [facility] Comment on above: Performed By: #### C BC #### [facility] [address] [place] [address] Dr. Vangie Devine Glucose [Mass/Vol] 94 mg/dL Normal 74-106 [facility] Comment on above: Performed By: #### C BC #### [facility] [address] [address] [address] Vangie Devine Potassium [Moles/Vol] 5.1 mmol/L Normal 3.5-5.1 [facility] Comment on above: Performed By: #### C BC #### [facility] [address] [address] [address] Vangie Devine Protein [Mass/Vol] 7.6 g/dL Normal 6.4-8.2 [facility] Comment on above: Performed By: #### C BC #### [facility] [address] [address] [address] Vangie Devine Sodium [Moles/Vol] 137 mmol/L Normal 136-145 [facility] Comment on above: Performed By: #### C BC #### [facility] [address] [address] [address] Vangie Devine Urea nitrogen [Mass/Vol] 9.0 mg/dL Normal 7.0-18.0 [facility] Comment on above: Performed By: #### C BC #### [facility] [address] [address] [address] Vangie Devine Urea nitrogen/Creatinine [Mass ratio] 10.1 mg/mg Normal [facility] Comment on above: Performed By: #### C BC #### [facility] [id number] Vangie Devine Cardiac Stress Teston 2021 Cardiac Stress Test [address], [address] [place] [address] Exercise Stress Test Patient Name: JAVIER Ordering Physician: [id number] Nolan Garibay DO [facility] Study Date: 01/26/2022 Reading Physician: [id number] Myke Levin MD MRN/PID: [id number] Supervising [id number] Myke Levin Physician: Accession/Order#: [id number] Referring Physician: [id number] NOLAN GARIBAY Date of : 1970 PCP: Gender: F Fellow: Height: 147.32 cm Nurse: Joe Elmore RN Weight: 84.37 kg [employer] Mechanic: NA BSA: 1.77 m2 Technologist: BMI: 38.87 kg/m2 Additional Staff: Age: 52 years cc report to: Patient Location: cc report to: [id number] Nolan Garibay DO Study Type: Cardiac Stress Test Diagnosis/ICD: I21.09-ST elevation (STEMI) myocardial infarction involving other coronary artery of anterior wall; I51.3-Intracardiac thrombosis, not elsewhere classified Indication: OR Procedure/CPT: Stress Test Interpretation-[id number]; Stress Test Supervision-[id number] Falls Risk: Low: Patient has low risk [...] rhythm. Normal sinus rhythm with anteroseptal wall OR. Stress Stage Data: + +-- -+------+-------+ HR [...] The adequate level of stress was achieved. [id number] Myke Levin MD Electronically signed on 01/26/2022 at 5:41:45 PM Final Normal [facility] Cardiac Stress Test MP-No [facility] y 250 DO Work Phone: Tobacco Screening.on 022 Adult depression screening assessment Yes [facility] [facility] 250 DO Work Phone: Adult depression screening assessment No [facility] [facility] 250 DO Work Phone: Fall risk assessment c) Not medically indicated [facility] [facility] 250 DO Work Phone: Tobacco use status [facility] b) No [facility] Cleo y 250 DO Work Phone: Tobacco Screening. 0-Not at all [facility] Cleo hurtado 250 DO Work Phone: Tobacco Screening. 1-Several days [facility] Cleo hurtado 250 DO Work Phone: Tobacco Screening. 2-More than half the days [facility] Cleo hurtado 250 DO Work Phone: Tobacco Screening. Not difficult at all [facility] Cleo hurtado 250 DO Work Phone: Laboratory - Coagulationon 0 01-17-2022 INR Coag (Bld) [Relative time] 1.56 {INR} [facility] Cleo hurtado 250 DO Work Phone: PROTIMEon 01-17-2022 INR Coag (PPP) [Relative time] 1.56 {INR} Normal [facility] Comment on above: Performed By: #### C JOBY #### [facility] [address] [place] [address] Dr. Vangie Devine INR GUIDELINES SEE BELOW Normal [facility] Comment on above: Result Comment: MARY ANN RED INR: 2.0 - 3.0 CONDITIONS NOT LISTED BELOW 2.5 - 3.5 FOR PROSTHETIC HEART VALVE REPLACEMENT 2.5 - 3.5 RECURRENT THROMBOSIS Performed By: #### Baldemar HEMPHILL #### [facility] [address] [place] [address] Dr. Vangie Devine PT Coag (PPP) [Time] 16.4 s Critically high 9.0-11.6 [facility] Comment on above: Performed By: #### C JOBY #### [facility] [address] [place] [address] Dr. Vangie Devine Activated partial thrombopla stin time (aPTT) in platelet poor plasma by coagulation aOrdered By: Isidra Garibay on 01-14-2022 aPTT Coag (PPP) [Time] 34.5 s 25.1-36.5 [facility] Creatinine and Glomerular fi ltration rate.predicted panel (S/P/Bld)Ordered By: Isidra Garibay on 01-14-2022 Creatinine [Mass/Vol] 0.69 mg/dL 0.44-1.03 [facility] Estimated glomerular filtrat ion rate (GFR) non- AmericanOrdered By: Isidra Garibay on 01-14-2022 GFR/1.73 sq M.predicted among non-blacks MDRD (S/P/Bld) [Vol rate/Area] > 60 mL/Min [facility] Laboratory - CoagulationOrde red By: Isidra Garibay on 01-14-2022 PT Coag (PPP) [Time] 17.7 s 9.0-12.9 [facility] No Panel InformationOrdered By: Isidra Garibay on 01-14-2022 Estimated GFR () > 60 mL/Min [facility] Comment on above: GFR estimated refere nce range: According to KDOQI guidelines, <60 ml/min/1.73m2 is sufficient to diagnose a patient with chronic kidney disease. Pharmacy Creatinine Clearance (Chem 94.39 [facility] Platelet poor plasma interna tional normalized ratio (INR) by coagulation assay (relatOrdered By: Isidra Garibay on 01-14-2022 INR Coag (PPP) [Relative time] 1.6 {INR} [facility] Comment on above: INR Therapeutic [...] on 01-14-2022 Calcium [Mass/Vol] 8.5 mg/dL 8.2-10.2 [facility] Serum or plasma chloride francesca surement (moles/volume)Ordered By: Isidra Garibay on 01-14-2022 Chloride [Moles/Vol] 99 mmol/L 95-114 [facility] Serum or plasma glucose ivana urement (mass/volume)Ordered By: Isidra Garibay on 01-14-2022 Glucose [Mass/Vol] 101 mg/dL 70-100 [facility] Comment on above: ADA recommended refe rence range Random Glucose Reference Range is dependent on time and content of last meal. Glucose of more than 200 mg/dL in a nonstressed, ambulatory subject supports the diagnosis of Diabetes Mellitus. Serum or plasma potassium me asurement (moles/volume)Ordered By: Isidra Garibay on 01-14-2022 Potassium [Moles/Vol] 4.2 mmol/L 3.5-5.1 [facility] Serum or plasma sodium measu rement (moles/volume)Ordered By: Isidra Garibay on 01-14-2022 Sodium [Moles/Vol] 129 mmol/L 136-146 [facility] Serum or plasma total carbon dioxide measurement (moles/volume)Ordered By: Isidra Garibay on 01-14-2022 CO2 [Moles/Vol] 21.8 mmol/L 22.0-30.0 [facility] Serum or plasma urea nitroge n measurement (mass/volume)Ordered By: Isidra Garibay on 01-14-2022 Urea nitrogen [Mass/Vol] 8 mg/dL 9-23 [facility] Albumin [Mass/volume] in Ser um or PlasmaOrdered By: Isidra Garibay on 01-11-2022 Albumin [Mass/Vol] 2.9 g/dL 3.2-5.5 [facility] Cholesterol [Mass/volume] in Serum or PlasmaOrdered By: Isidra Garibay on 01-11-2022 Cholesterol [Mass/Vol] 109 mg/dL 140-200 [facility] Comment on above: Chol less than 200 m g/dl low risk Chol 201-239 mg/dl borderline risk Chol 240 mg/dl and greater high risk Cholesterol in LDL Calc [Mas s/Vol]Ordered By: Isidra Garibay on 01-11-2022 Cholesterol in LDL [Mass/Vol] 49 mg/dL 0-100 [facility] Comment on above: LDL ATP III CLASSIFI CATION LDL less than 100 mg/dL Optimal LDL 100-129 mg/dL Near or above optimal LDL 130-159 mg/dL Borderline high LDL 160-189 mg/dL High LDL greater than 189 mg/dL Very high Cholesterol in VLDL Calc [Ma ss/Vol]Ordered By: Isidra Garibay on 01-11-2022 Cholesterol in VLDL [Mass/Vol] 16 mg/dL [facility] Globulin Calc (S) [Mass/Vol] Ordered By: Isidra Garibay on 01-11-2022 Globulin (S) [Mass/Vol] 3.1 g/dL [facility] Glucose Glucometer (BldC) [M ass/Vol]Ordered By: Isdira Garibay on 01-11-2022 Glucose [Mass/Vol] 118 mg/dL [facility] Comment on above: Random Glucose Refer ence Range is dependent on time and content of last meal. Glucose of more than 200 mg/dL in a nonstressed, ambulatory subject supports the diagnosis of Diabetes Mellitus. No Panel InformationOrdered By: Isidra Garibay on 01-11-2022 Bedside Glucose Comment Glu2: cleaned meter [facility] Protein [Mass/volume] in Ser um or PlasmaOrdered By: Isidra Garibay on 01-11-2022 Protein [Mass/Vol] 6.0 g/dL 6.1-7.9 [facility] Serum or plasma alanine gore otransferase measurement without P-5'-P (enzymatic activiOrdered By: Isidra Garibay on 01-11-2022 ALT No additional P-5'-P [Catalytic activity/Vol] 58 U/L 10 [facility] Serum or plasma albumin/glob ulin mass ratioOrdered By: Isidra Garibay on 01-11-2022 Albumin/Globulin [Mass ratio] 0.9 {ratio} [facility] Serum or plasma alkaline carl sphatase measurement (enzymatic activity/volume)Ordered By: Isidra Garibay on 01-11-2022 ALP [Catalytic activity/Vol] 85 U/L 32-92 [facility] Serum or plasma aspartate am inotransferase measurement (enzymatic activity/volume)Ordered By: Isidra Garibay on 01-11-2022 AST [Catalytic activity/Vol] 212 U/L 10 [facility] Serum or plasma high density lipoprotein (HDL) cholesterol measurementOrdered By: Isidra Garibay on 01-11-2022 Cholesterol in HDL [Mass/Vol] 43 mg/dL 35-85 [facility] Comment on above: HDL CHOL ATP-III CLA SSIFICATION Cardiovascular Risk HDL > or equal to 60 mg/dL LOW HDL < 40 mg/dL HIGH Serum or plasma total biliru bin measurement (mass/volume)Ordered By: Isidra Garibay on 01-11-2022 Bilirubin [Mass/Vol] 0.6 mg/dL 0.3-1.2 [facility] Serum or plasma total choles terol/high density lipoprotein (HDL) cholesterol mass ratOrdered By: Isidra Garibay on 01-11-2022 Cholesterol.total/Chol esterol in HDL [Mass ratio] 2.5 {ratio} [facility] Triglyceride [Mass/volume] i n Serum or PlasmaOrdered By: Isidra Garibay on 01-11-2022 Triglyceride [Mass/Vol] 83 mg/dL 35-149 [facility] Comment on above: TRIG ATP [...] 01-11-2022 Troponin I.cardiac High sensitivity method [Mass/Vol] 32668 pg/mL 0-15 [facility] Comment on above: Results called at 0805 on 01/11/22 AMYLASEon 01-10-2022 Amylase [Catalytic activity/Vol] 37 U/L Normal 25-115 [facility] Comment on above: Performed By: #### C BC #### [facility] [address] [address] [address] Vangie Devine CARDIAC CHASTITY ADMITon 022 CK [Catalytic activity/Vol] 206 U/L Critically high 26-192 [facility] Comment on above: Performed By: #### C BC #### [facility] [address] [address] [address] Vangie Devine CK.MB [Mass/Vol] 3.65 ng/mL Critically high <=3.60 [facility] Comment on above: Performed By: #### C BC #### [facility] [address] [address] [address] Vangie Devine HSTROP 80.4 pg/mL Critically high 4.0-51.3 [facility] Comment on above: Result Comment: CUT- OFF POINTS HAVE BEEN ESTABLISHED BASED ON THE FOURTH UNIVERSAL DEFINITIONS OF MYOCARDIAL INFARCTION. THE UPPER REFERENCE LIMIT (URL) OF TROPONIN, DEFINED THE 99TH PERCENTILE OF cTnI DISTRIBUTION IN A REFERENCE POPULATION, HAS BEEN CONFIRMED THE DECISION THRESHOLD FOR OR DIAGNOSIS. Performed By: #### C BC #### [facility] [address] [place] [address] Dr. Vangie Devine AJ 119 ng/mL Critically high 9-82 [facility] Comment on above: Performed By: #### C BC #### [facility] [address] [place] [address] Dr. Vangie Devine CBC W MANUAL DIFFon 01-11-20 22 ATYPICAL LYMPH # 0.93 103/ul Normal [facility] Comment on above: Performed By: #### C BCMAN #### [facility] [address] [place] [address] Dr. Vangie Devine ATYPICAL LYMPH % 3 % Normal [facility] Comment on above: Performed By: #### C BCMAN #### [facility] [address] [place] [address] Dr. Vangie Devine BAND # 1.6 103/ul Critically high 0.0-0.3 [facility] Comment on above: Performed By: #### C BCMAN #### [facility] [address] [place] [address] Dr. Vangie Devine BAND % 5 % Normal 0-5 [facility] Comment on above: Performed By: #### C BCMAN #### [facility] [address] [place] [address] Dr. Vangie Devine BASOM # 0.00 103/ul Normal 0.00-0.10 [facility] Comment on above: Performed By: #### C BCMAN #### [facility] [address] [place] [address] Dr. Vangie Devine BASOM % 0.0 % Critically low 0.2-2.0 [facility] Comment on above: Performed By: #### C JOBY #### [facility] [address] [place] [address] Dr. Vangie Devine BLAST # 0.0 103/ul Normal [facility] Comment on above: Performed By: #### C JOBY #### [facility] [address] [place] [address] Dr. Vangie Devine BLAST % Normal [facility] Comment on above: Performed By: #### C JOBY #### [facility] [address] [place] [address] Dr. Vangie Devine CORRECTED WBC Normal 4.0-11.0 [facility] Comment on above: Performed By: #### C JOBY #### [facility] [address] [place] [address] Dr. Vangie Devine EOS # 0.00 103/ul Normal 0.00-0.70 [facility] Comment on above: Performed By: #### C JOBY #### [facility] [address] [place] [address] Dr. Vangie Devine EOS% 0.0 % Critically low 0.9-7.0 [facility] Comment on above: Performed By: #### C JOBY #### [facility] [address] [place] [address] Dr. Vangie Devine HCT 42.0 % Normal 36.0-48.0 [facility] Comment on above: Performed By: #### C JOBY #### [facility] [address] [place] [address] Dr. Vangie Devine HGB 14.6 g/dl Normal 12.0-16.0 [facility] Comment on above: Performed By: #### C JOBY #### [facility] [address] [place] [address] Dr. Vangie Devine HYPERSEG NEUT 1+ Normal [facility] Comment on above: Performed By: #### C JOBY #### [facility] [address] [place] [address] Dr. Vangie Devine LYMPHM # 4.03 103/ul Critically high 1.20-3.80 [facility] Comment on above: Performed By: #### C JOBY #### [facility] [facility] [address] [address] [address] Vangie Devine LYMPHM% 13.0 % Critically low 20.5-60.0 [facility] Comment on above: Performed By: #### C JOBY #### [facility] [address] [place] [address] Dr. Vangie Devine MCH 32.7 pg Normal 26.7-34.0 [facility] Comment on above: Performed By: #### C JOBY #### [facility] [address] [place] [address] Dr. Vangie Devine MCHC 34.8 g/dl Normal 29.9-35.2 [facility] Comment on above: Performed By: #### C JOBY #### [facility] [address] [place] [address] Dr. Vangie Devine MCV 94.2 fL Normal 81.0-99.0 [facility] Comment on above: Performed By: #### C JOBY #### [facility] [address] [place] [address] Dr. Vangie Devine METAMYELOCYTE # 1.2 103/ul Normal [facility] Comment on above: Performed By: #### C JOBY #### [facility] [address] [place] [address] Dr. Vangie Devine METAMYELOCYTE % 4 % Normal [facility] Comment on above: Performed By: #### C JOBY #### [facility] [address] [place] [address] Dr. Vangie Devine MONOM# 0.93 103/ul Critically high 0.30-0.80 [facility] Comment on above: Performed By: #### C JOBY #### [facility] [address] [place] [address] Dr. Vangie Devine MONOM% 3.0 % Normal 1.7-12.0 [facility] Comment on above: Performed By: #### C JOBY #### [facility] [address] [place] [address] Dr. Vangie Devine MPV 10.4 fL Normal 9.5-13.5 [facility] Comment on above: Performed By: #### C JOBY #### [facility] [address] [place] [address] Dr. Vangie Devine MYELOCYTE # 0.9 103/ul Normal [facility] Comment on above: Performed By: #### C JOBY #### [facility] [address] [place] [address] Dr. Vangie Devine MYELOCYTE % 3 % Normal [facility] Comment on above: Performed By: #### C JOBY #### [facility] [address] [place] [address] Dr. Vangie Devine NRBC 0 Normal [facility] Comment on above: Performed By: #### C JOBY #### [facility] [address] [place] [address] Dr. Vangie Devine PLT 460 103/ul Critically high 150-450 [facility] Comment on above: Performed By: #### C JOBY #### [facility] [address] [place] [address] Dr. Vangie Devine RBC 4.46 106/ul Normal 4.20-5.40 [facility] Comment on above: Performed By: #### C JOBY #### [facility] [address] [place] [address] Dr. Vangie Devine RDW 12.6 % Normal 11.0-15.0 [facility] Comment on above: Performed By: #### C JOBY #### [facility] [address] [place] [address] Dr. Vangie Devine SEG # 21.39 103/ul Critically high 1.40-6.50 [facility] Comment on above: Performed By: #### C JOBY #### [facility] [address] [place] [address] Dr. Vangie Devine SEG % 69.0 % Normal 43.0-75.0 [facility] Comment on above: Performed By: #### C JOBY #### [facility] [address] [place] [address] Dr. Vangie Devine WBC 31.0 103/ul Critically high 4.0-11.0 [facility] Comment on above: Performed By: #### Baldemar EHMPHILL #### [facility] [address] [place], [place] [address] Dr. Vangie Devine Covid-19 PCR ([facility])on 12-14 SARS-CoV-2 (COVID-19) RNA SAMIR+probe Ql (Unsp spec) Not detected Normal NOT DETECTED [facility] Comment on above: Result Comment: When diagnostic [...] for this test is supported by the [place] of Health and Human Service's declaration that [...] used). Performed By: #### Baldemar HEMPHILL #### [facility] [address] [place], [place] [address] Dr. Vangie Devine LIPASEon 01-10-2022 Lipase [Catalytic activity/Vol] 63.0 U/L Critically low 73.0-393.0 [facility] Comment on above: Performed By: #### Baldemar HEMPHILL #### [facility] [address] [place], [place] [address] Dr. Vangie Devine Laboratory - Chemistry and C hemistry - challengeOrdered By: Isidra Garibay on 01-10-2022 Magnesium [Mass/Vol] 2.0 mg/dL 1.6-2.6 [facility] PROTIMEon 01-10-2022 INR Coag (PPP) [Relative time] 1.01 {INR} Normal [facility] Comment on above: Performed By: #### P TT, PT #### [facility] [address] [place] [address] Dr. Vangie Devine INR GUIDELINES SEE BELOW Normal [facility] Comment on above: Result Comment: MARY ANN RED INR: 2.0 - 3.0 CONDITIONS NOT LISTED BELOW 2.5 - 3.5 FOR PROSTHETIC HEART VALVE REPLACEMENT 2.5 - 3.5 RECURRENT THROMBOSIS Performed By: #### P TT, PT #### [facility] [address] [place] [address] Dr. Vangie Devine PT Coag (PPP) [Time] 10.9 s Normal 9.0-11.6 [facility] Comment on above: Performed By: #### P TT, PT #### [facility] [address] [place] [address] Dr. Vangie Devine PTTon 01-10-2022 aPTT Coag (Bld) [Time] 26.3 s Normal 22.3-36.2 [facility] Comment on above: Performed By: #### P TT, PT #### [facility] [address] [place] [address] Dr. Vangie Devine XR CHEST 1 Von 01-10-2022 XR CHEST 1 V CLINICAL HISTORY: Chest pain COMPARISON: Chest radiograph 12/20/2015 at [facility]. FINDINGS: Portable AP view of the chest obtained. Cardiomediastinal silhouette is normal. Lungs are clear, no evidence of infiltrate, suspicious nodule, or mass. No evidence of significant pleural fluid on this portable projection. No acute bony abnormality. IMPRESSION: No acute abnormality. Electronically authenticated by: MADELAINE ALVA Date: 2022-01-10 10:16 Normal [facility] WRIST LEFT 3 VWSon 2 WRIST LEFT 3 S [facility] Department of Radiology [address] [place] [id number] Patient Name: JAVIER LINK : 1970 Sex: F Age: Race: White Pt. 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 Electronically signed: QUANG RUFFIN. Transcribed by: [email or web address], User Resident: Electronically Signed by: QUANG RUFFIN @ 09/10/2021 09:04 AM Normal [facility] Comment on above: Order Comment: Evalu ate Operative Reporton Operative Report MR#: [id number] S [facility] Pt. Name: Javier Link Room #: 0C Discharge Date: Birthdate: 1970 OPERATIVE REPORT DATE OF SURGERY: 07/22/2021 SURGEON: Rafi Biswas M.D. PREOPERATIVE DIAGNOSIS: Kienbock's disease, stage IV, left lunate. POSTOPERATIVE DIAGNOSIS: Kienbock's disease, stage IV, left lunate. PROCEDURE: Proximal row carpectomy, left wrist. BUSINESS SERVICES SALES REPRESENTATIVE: Maricarmen Liao M.D. ANESTHESIA: [place]. INDICATION FOR [...] took some 3-0 TiCron and put a gwkjdg-te-lbutr suture in that dorsal portion of the TFCC right near the ulnar styloid where the small tear was. The volar part of the TFCC looks good. Once that was in, the dorsal capsule was closed with multiple ttjvba-jq-vakte sutures of 2-0 Vicryl. The subcutaneous tissue [...] Biswas M.D. Date Trans: 07/22/2021 10:32 A/mmo [id number] cc: Moriah Mack M.D. [address] [facility] [address] Normal The [facility] POC GLUCOSE LABon 07-22-2021 Glucose [Mass/Vol] 85 mg/dL Normal 70-100 [facility] Comment on above: Performed By: #### 8 [id number] #### [facility] [address] MRI WRIST WO CONTRAST RIGHTo n 06-09-2021 MRI WRIST WO CONTRAST RIGHT [facility] Department of Radiology [address] [place] [address] Patient Name: JAVIER LINK : 1970 Sex: F Age: Race: White Pt. 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 Electronically signed: Liz Harp. Transcribed by: [email or web address], User Resident: Electronically Signed by: LIZ HARP @ 06/11/2021 09:46 AM Normal [facility] Comment on above: Order Comment: Evide nce Keinbock's R wrist on outside x-ray, evaluate for staging and surgical planning. , Side: RIGHT WRIST LEFT 3 [facility] 1 WRIST LEFT 3 S [facility] Department of Radiology [address] [place] [id number] Patient Name: JAVIER LINK : 1970 Sex: F Age: Race: White Pt. 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 COMPARISON: None. IMPRESSION: 1. Subtle sclerosis lunate suggests possibility of osteonecrosis. No significant ulnar variance. 2. No acute fracture. No dislocation. Likely remote injury ulnar styloid. 3. Borderline widening scapholunate interval. 4. Multiple moderate triscaphe and radiocarpal arthritis. Electronically signed: Alonso Iglesias. Transcribed by: [email or web address], User Resident: Electronically Signed by: ALONSO IGLESIAS @ 05/19/2021 12:56 PM Normal [facility] Comment on above: Order Comment: evalu ate WRIST RIGHT 3 Son 05-18-20 21 WRIST RIGHT 3 VWS [facility] Department of Radiology [address] [place] [id number] Patient Name: JAVIER LINK : 1970 Sex: F Age: Race: White Pt. 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 COMPARISON: None. IMPRESSION: 1. Subtle sclerosis lunate suggest osteonecrosis. 2. No acute fracture. No malalignment. No significant ulnar variance. Electronically signed: Alonso Iglesias. Transcribed by: [email or web address], User Resident: Electronically Signed by: ALONSO IGLESIAS @ 05/19/2021 12:55 PM Normal [facility] Comment on above: Order Comment: evalu ate Vital Signs Date Time Vital Sign Value Performing Clinician Facility 01-20-2022 12:07-0400 Diastolic blood pressure 58 mm[Hg] No PCP None [facility] DO Work Phone: 01-20-2022 12:07-0400 Systolic blood pressure 105 mm[Hg] No PCP None [facility] DO Work Phone: 01-20-2022 11:58-0400 Body height 147.32 cm No PCP None [facility] DO Work Phone: 01-20-2022 11:58-0400 Body mass index (BMI) [Ratio] 38.87 kg/m2 No PCP None [facility] DO Work Phone: 01-20-2022 11:58-0400 Body surface area Derived from formula 1.77 m2 No PCP None [facility] DO Work Phone: 01-20-2022 11:58-0400 Body weight 84.37 kg No PCP None [facility] DO Work Phone: 01-20-2022 11:58-0400 Diastolic blood pressure 62 mm[Hg] No PCP None [facility] DO Work Phone: 01-20-2022 11:58-0400 Heart rate 60 /min No PCP None [facility] DO Work Phone: 01-20-2022 11:58-0400 Systolic blood pressure 110 mm[Hg] No PCP None [facility] DO Work Phone: 01-20-2022 11:58-0400 6 1 No PCP None [facility] DO Work Phone: Comment on above: PHQ-9 TS 01-14-2022 13:04-0400 Heart rate 74 /min DO W Clarke Bebo Work Phone: [facility] 01-14-2022 13:04-0400 Respiratory rate 20 /min DO W Clarke Bebo Work Phone: [facility] 01-14-2022 12:00-0400 Body temperature 98.4 [degF] DO W Clarke Bebo Work Phone: [facility] 01-14-2022 12:00-0400 Diastolic blood pressure 69 mm[Hg] DO W Clarke Bebo Work Phone: [facility] 01-14-2022 12:00-0400 SaO2% (BldA) [Mass fraction] 96 % DO W Clarke Bebo Work Phone: [facility] 01-14-2022 12:00-0400 Systolic blood pressure 98 mm[Hg] DO W Clarke Bebo Work Phone: [facility] 01-14-2022 04:55-0400 Body weight 85 kg DO W Clarke Garibay Work Phone: [facility] 01-12-2022 08:00-0400 Inhaled oxygen flow rate 3 L/min DO W Clarke Garibay Work Phone: [facility] 01-11-2022 16:45-0400 Inhaled oxygen concentration 50 % DO W Clarke Garibay Work Phone: [facility] 01-11-2022 00:00-0400 35 1 No PCP None -[facility] DO Work Phone: Comment on above: [id number] 01-10-2022 13:01-0400 Body height 147.32 cm DO W Clarke Garibay Work Phone: [facility] 01-10-2022 13:01-0400 Body mass index (BMI) [Ratio] 39.2 kg/m2 DO W Clarke Garibay Work Phone: [facility] Encounters Encounter Date Encounter Type Care Provider Facility Start: 09-10-2024 ambulatory [facility] Start: 08-27-2024 End: 08-27-2024 ambulatory [facility] Start: 08-22-2024 ambulatory [facility] Start: 08-20-2024 ambulatory [facility] Start: 07-29-2024 ambulatory [facility] Start: 07-23-2024 ambulatory [facility] Start: 07-10-2024 ambulatory [facility] Start: 07-08-2024 End: 07-08-2024 ambulatory [facility] Start: 06-27-2024 ambulatory [facility] Start: 06-17-2024 ambulatory [facility] Start: 05-21-2024 ambulatory [facility] Start: 04-30-2024 ambulatory [facility] Start: 03-15-2024 ambulatory [facility] Start: 02-27-2024 End: 02-27-2024 ambulatory [facility] Start: 02-07-2024 ambulatory DELL OWEN [facility] Start: 01-22-2024 ambulatory [facility] Start: 01-22-2024 Encounter for preprocedural cardiovascular examination [facility] Start: 01-12-2024 End: 01-12-2024 ambulatory YELENA CRUZ [facility] Start: 12-21-2022 End: 12-22-2022 ambulatory [...] BENTON Facility:[facility] Start: 03-14-2022 End: 04-13-2022 ambulatory Sergo JAVIER Facility:[facility] Start: 02-14-2022 End: 03-11-2022 ambulatory Sergo JAVIER Facility:[facility] Start: 02-02-2022 End: 05-06-[address] DOCTOR SCHWARZ Facility:[facility] Start: 01-27-2022 Chart Update No PCP None [facility] DO Work Phone: Start: 01-20-2022 End: 02-11-2022 ambulatory SHAIKH Sergo LONGEMILY Facility:[facility] Start: 01-20-2022 Transitional care moni christinahomero srvc 7 day discharge No PCP None [facility] DO Work Phone: Start: 01-17-2022 End: 01-18-[address] NOLAN GARIBAY Facility:[facility] Start: 01-10-2022 End: 01-14-2022 Evaluation and management of inpatient DO W Clarke Garibay Work Phone: [facility] Start: 01-10-2022 End: 01-10-2022 ambulatory HASMUKH KATZ . Facility:[facility] Start: 07-22-2021 End: 07-23-2021 ambulatory RAFI BISWAS Facility:[facility] Procedures Date Procedure Procedure Detail Performing Clinician [...] Nolan Garibay, Status: Pen, Time: 10:50 AM [facility] DO Work Phone: Start: 03-21-2022 FUV, Provider: Beth Hull, Status: Pen, Time: 8:30 AM FUV, Provider: Beth Hull, Status: Pen, Time: 8:30 AM [facility] DO Work Phone: Start: 03-14-2022 ECHO, Provider: [facility] ULTRASOUND 01,[id number], Status: Pen, Time: 10:45 AM ECHO, Provider: LUCAS [facility] ULTRASOUND 01,[id number], Status: Pen, Time: 10:45 AM [facility] DO Work Phone: Start: 01-26-2022 STRESS MARK, Provider : LUCAS [facility] NUCLEAR 01,[id number], Status: Pen, Time: 2:00 PM STRESS MARK, Provider: LUCAS [facility] NUCLEAR 01,[id number], Status: Pen, Time: 2:00 PM [facility] DO Work Phone: Patient Education Coronary Angio plasty (DC) Angina (DC) Drug Eluting Stents [facility] Work Phone: Patient referral [facility] Work Phone: Payers Date Payer Category Payer Medicare [id number] 2019 Unknown [id number] 1970 Unknown [id number] 2.16.8 [id number] 1970 Unknown [id number] 2.16.84 0.1.985518.3.579.2.593 1970 Unknown [id number] 2.16.84 0.1.541541.3.579.2.593 1970 Unknown [id number] 2.16.84 0.1.713018.3.579.2.593 1970 Unknown [id number] 2.16.84 0.1.246911.3.579.2.593 1970 Unknown [id number] 2.16.84 0.1.391123.3.579.2.593 1970 Unknown [id number] 2.16.84 0.1.112314.3.579.2.593 1970 Unknown [id number] 2.16.84 0.1.769140.3.579.2.593 1970 Unknown [id number] 2.16.84 0.1.855609.3.579.2.593 1970 Unknown [id number] 2.16.84 0.1.187824.3.579.2.593 1970 Unknown [id number] 2.16.84 0.1.838797.3.579.2.593 1970 Unknown [id number] 2.16.84 0.1.649411.3.579.2.593 1970 Unknown [id number] 2.16.84 0.1.498945.3.579.2.593 1970 Unknown [id number] 2.16.84 0.1.644249.3.579.2.593 1970 Unknown [id number] 2.16.84 0.1.457973.3.579.2.593 1970 Unknown [id number] 2.16.84 0.1.100837.3.579.2.593 1970 Unknown [id number] 2.16.84 0.1.857590.3.579.2.593 1970 Unknown [id number] 2.16.84 0.1.953229.3.579.2.593 1970 Unknown [id number] 2.16.84 0.1.849242.3.579.2.593 1970 Unknown [id number] 2.16.84 0.1.095410.3.579.2.593 1970 Unknown [id number] 2.16.84 0.1.761402.3.579.2.593 1958 Self-pay [id number] Unknown Unknown [id number] 2.16.84 0.1.707998.3.579.2.593 Unknown [id number] 2.16.8 40.1.476521.3.579.2.531 Social History Date Type Detail Facility Daily caffeine consumption Daily caffeine consumption [facility] Work Phone: Comment on above: 3-4; quit 1 week ago; Start: 01-10-2022 [facility] Start: 1970 Sex Assigned At Female F [facility] Medical Equipment Procedure Code Equipment Code Equipment Origin al Text Equipment Identifier Dates Drug-eluting coronary artery stent, frq-aldxuymfniknx-vm lymer-coated ()[id number] FDA Start: 01-10-2022 Drug-eluting coronary artery stent, qfm-fninmujftieib-lj lymer-coated ()[id number] FDA Start: 01-10-2022 Goals Date Patient Goal Desired Activity /State Functional Status Date Assessment Result Facility 01-20-2022 PHQ-9 [id number] Mild (5-9) [facility] [place] [facility] DO Work Phone: 01-14-2022 Functional status Patient at Baseline [facility] Work Phone: 01-10-2022 Functional status Disability Sta tus Patient at Baseline [facility] Work Phone: Mental Status Date Assessment Result Facility 01-10-2022 Cognitive function Cognitive Sta tus Patient at Baseline [facility] Work Phone: Clinical Notes 01-10-2022 to 07-08-2024 Note Date & Type Note Facility 07-08-2024 Note [place] [facility] - [facility] Subjective Javier Link is a 54 y.o. year old female patient being seen for 6 mo follow up hx of LV thrombus, CAD, and chronic systolic heart failure. She was admitted to [facility] in Apr 2024 for hypotension due [...] 52-year-old woman. On 01/10/2022 she presented to [facility] with STEMI and was found [...] is enrolled in cardiac rehab at the [facility] and doing well with that. Anticoagulation clinic at the [facility] follows her warfarin levels. Testing: ECG 01/13/2022: [...] on exertion a (more content not included)... [facility] 01-12-2024 Note [facility] CARDIOLOGY PROGR [...] She continues with cardiac rehab exercise at [facility]. She denies chest pain, shortness of breath, [...] 52-year-old woman. On 01/10/2022 she presented to [facility] with STEMI and was found [...] is enrolled in cardiac rehab at the [facility] and doing well with that. Anticoagulation clinic at the [facility] follows her warfarin levels. Testing: ECG 01/13/2022: [...] syncope and le (more content not included)... [facility] 01-12-2024 Note Patient here for [...] All other systems reviewed and are negative. [facility] 01-12-2024 Note HTN is well-controll ed with current med regimen and renal function stable [facility] 01-12-2024 Note [facility] II-currently eu volemic without exacerbation, no activity limiting symptoms Continue GDMT-aspirin, Lipitor, Coreg, Jardiance, Entresto and Aldactone with Diuretic therapy of Lasix 40 mg daily Monitor daily weights, I&O, fluid restriction 1.5-2L/day, renal function and electrolytes- [facility] 01-12-2024 Note Coronary artery dise ase is unchanged. Continue current medications. Cardiac status will be reassessed in 6 months. Continue goal-directed medical therapy with aspirin, Lipitor, Plavix, Coreg [facility] 01-12-2024 Note Lipid abnormalities are unchanged, well controlled; PCP monitoring LFT. Pharmacotherapy as ordered. Lipids will be reassessed annually. [facility] 01-12-2024 Note No thrombus noted on last 2 TTE [facility] 10-31-2022 Note CARDIAC STRESS TEST [...] CAD evaluation with invasive stress test. The [facility] 01-13-2022 Progress note Note Date/Time January 13, 2022 3:15pm [facility] [address] [place] [address] Cardiology Progress Note Signed Patient: Javier Link MR#: [id number] : 1970 Acct:[id number] Age/Sex: 51 / F Adm Date: 2 Loc: Room: [address] [place] [address] Type : ADM IN Attending Dr: Isidra [...] <Electronically signed by Isidra Garibay DO> 01/13/22 [facility] Work Phone: 1(244) 317-175306-01-2022 Progress note Author Isidra Garibay [facility] January 12, 2022 3:16pm Note Date/Time January 12, 2022 3:16p [facility] [address] [place] [address] Cardiology Progress Note Signed Patient: Javier Link MR#: [id number] : 1970 Acct:[id number] Age/Sex: 51 / F Adm Date: 2 Loc: Room: [address] [place] [address] Type : ADM IN Attending Dr: Isidra [...] signed by Isidra Garibay DO> 01/12/22 1516 [facility] Work Phone: 1(727) 497-208305-31-2022 Progress note Author Isidra Garibay [facility] January 11, 2022 1:38pm Note Date/Time January 11, 2022 1:38p m [facility] [address] [place] [address] Cardiology Progress Note Signed Patient: Javier Link MR#: [id number] : 1970 Acct:[id number] Age/Sex: 51 / F Adm Date: 2 Loc: Room: [address] [place] [address] Type : ADM IN Attending Dr: Isidra [...] ALT Alkaline Phosphatase Troponin I High Sens 87567 H* Total Protein Albumin Globulin Albumin/Globulin Ratio [...] ALT Alkaline Phosphatase Troponin I High Sens 760880 H* Total Protein Albumin Globulin Albumin/Globulin Ratio Triglycerides Cholesterol LDL Cholesterol, Calc VLDL Cholesterol HDL Cholesterol Cholesterol/HDL Ratio 01/10/22 01/10/22 01/10/22 20:42 21:57 23:37 APTT PHA Creatinine Clear Sodium Potassium Chloride Carbon Dioxide BUN Creatinine Est GFR ( Amer) Est GFR (Non-Af Amer) Glucose POC Glucose 148 Calcium Magnesium Total Bilirubin AST ALT Alkaline Phosphatase Troponin I High Sens 405427 H* 155487 H* Total Protein Albumin Globulin Albumin/Globulin Ratio [...] Alkaline Phosphatase 85 Troponin I High Sens 61726 H* Total Protein 6.0 L Albumin 2.9 [...] signed by Isidra Garibay DO> 01/11/22 1338 [facility] Work Phone: 1(321) 731-708005-30-2022 History and physical note Author Isidra Garibay [facility] January 10, 2022 12:14pm Note Date/Time January 10, 2022 10:30 am [facility] [address] [place] [address] Cardiology H&P Signed Patient: Javier Link MR#: [id number] : 1970 Acct:[id number] Age/Sex: 51 / F Adm Date: 2 Loc: Room: Type: [facility] Attending Dr: Isidra Garibay DO Copies to: NON STAFF Isidra Garibay DO~ Date of Service: 01/10/2022 Cardiology HPI History of Present Illness Chief complaint: Inferolateral STEMI HPI: Ms. Link is a 51 year old female transferred from [place] emergency room this morning after receiving phone call from Dr. Katz and reviewing electronic transmitted media and discussion about the clinical case. Patient presented with severe chest discomfort with no prior history of cardiac illness or intervention. ECGs reveal sinus rhythm with inferolateral ST elevation injury current. She was admitted restarted upstream antiplatelet and Antithrombin therapy, and transferred to the [facility] emergently. Patient arrived at [place] ER at 0924, first ECG transmitted to tn was 0948, [facility] team was activated at 0952, patient was transferred by ground, arrived in [facility] at 1033 and underwent primary PCI at [...] ER staff, review of electronic transmitted media, [facility] staff, nursing staff and family both pre [...] changes or abnormalities: ST suggestive of injury OR, pacemaker, normal Myocardial infarction: inferior OR (acute or recent) and lateral OR (acute or recent) A&P - Cardiology (1) ST elevation myocardial infarction (STEMI) of inferolateral wall: Code(s): I21.19 - ST elevation (STEMI) myocardial infarction involving other coronary artery of inferior wall (2) Hyperlipidemia: Code(s): E78.5 - Hyperlipidemia, unspecified (3) Essential hypertension: Code(s): I10 - Essential (primary) hypertension Documented By: Isidra Garibay DO 01/10/22 1026 Signed By: <Electronically signed by Isidra Garibay DO> 01/10/22 7448 [facility] Work Phone: 1(656) 328-204605-30-2022 [facility] HospitalChief complaint Narrative - Reported* 51-year-old female returns for transitional care management office visit following recent large anterior OR with associated cardiogenic shock and primary revascularization of the LAD, details of which are reviewed. She had intra-aortic balloon pump counterpulsation for 24 hours, subsequent diagnosis of LV thrombus with reduced LV function. She was transition to clopidogrel warfarin, aspirin triple therapy. She did have brief episodes of bobbi-OR/postoperative VT that stabilized on amiodarone andthen we [...] 12 weeks and myselfin approximately 4 months [facility] [employer] Work Phone: Chi complaint Narrative - Reported* 51-year-old female returns for transitional care management office visit following recent large anterior OR with associated cardiogenic shock and primary revascularization of the LAD, details of which are reviewed. She had intra- aortic balloon pump counterpulsation for 24 hours, subsequent diagnosis of LV thrombus with reduced LV function. She was transition to clopidogrel warfarin, aspirin triple therapy. She did have brief episodes of bobbi-OR/postoperative VT that stabilized on amiodarone andthen we [...] 12 weeks and myselfin approximately 4 months [facility] Work Phone: Chief complaint Narrative - Reported* 51-year-old female returns for transitional care management office visit following recent large anterior OR with associated cardiogenic shock and primary revascularization of the LAD, details of which are reviewed. She had intra- aortic balloon pump counterpulsation for 24 hours, subsequent diagnosis of LV thrombus with reduced LV function. She was transition to clopidogrel warfarin, aspirin triple therapy. She did have brief episodes of bobbi-OR/postoperative VT that stabilized on amiodarone andthen we [...] 12 weeks and myselfin approximately 4 months [facility] Work Phone: Evaluation note* Diagnosis Onset Date Resolution Status Essential hypertension acute Hyperlipidemia acute Left ventricular thrombus ac [place] ST elevation myocardial infa rction (STEMI) of inferolateral wall acute [facility] Work Phone: Hospital Discharge instructions Additional Instructions [facility] to manage your Coumadin dosing [...] doctor or pharmacist, without first calling the cinder crew worker who implanted the stent. If you require [...] weight lifting, stair steppers, etc. until the cinder crew worker approves these activities. Check with the cinder crew worker on your first follow-up visit. CALL YOUR PHYSICIAN at [phone]: -If bleeding should occur from the catheter insertion site- apply pressure to the site then immediately call us. -Report any fever, redness, drainage, increased swelling, or firmness at the catheter insertion site. Some bruising or slight swelling may be present at the time of discharge. -Should arm or leg become cold, numb, white, or blue, contact the cinder crew worker immediately. -IF you should experience episodes of [...] is recommended. Please call Central Scheduling at [phone] to schedule your appointment.] The attending cinder crew worker or [facility] nurse clinician should provide you with specific instructions regarding activity, diet, medications, and further follow up for you. Follow the medication instructions provided on your discharge. If the dosages and instructions on this sheet differ from the dosage and instructions on the bottle, follow the instructions on the bottle. [facility] is not responsible for incorrect prescription information provided by the patient during their visit. Do not stop your medications without consulting your health care provider. Please take the list with you to your next doctor's appointment.[facility] Work Phone: Summary Purpose Family [...] Z82.49) Status:Active Family history of diabetes m elljavid: Father(V18.0, Z83.3) Status:Active Family history of myocardial [...] and content) DATE CREATED AUTHOR 09/11/2021 [facility] DATE CREATED AUTHOR AUTHOR'S ORGANIZ ATION 03/09/2022 [facility] DATE CREATED AUTHOR AUTHOR'S ORGANIZ ATION 12/25/2022 [facility] DATE CREATED AUTHOR AUTHOR'S ORGANIZ ATION 05/11/2024 [facility] DATE CREATED AUTHOR AUTHOR'S ORGANIZ ATION 09/15/2024 [facility] Care Teams (unrecognized sec tion [...] BE BASED ON THE PRIMARY CLINICAL RECORDS. [employer] provides no warranty or guarantee of the accuracy or completeness of information in this document.
[2024-09-26 14:11] LABS: Anion Gap 10.8; BUN Creatinine Ratio 8.3; Calcium 8.8 mg/dL (8.5-10.1); Carbon Dioxide 28.4 mmol/L (21.0-32.0); Chloride 99 mmol/L (98-107); Estimated GFR (African America >60 (>=60 mL/min/1.73m^2); Estimated GFR (Non-African Ame 53 (>=60 mL/min/1.73m^2); Glucose 92 mg/dL (74-106); Potassium 4.2 mmol/L (3.5-5.1); Sodium 134 mmol/L (136-145)
== END 2024-09-26 13:04 | disposition home or self-care (01) ==
LOC: LAB 13:05
PROVIDERS: PCP Nurse Practitioner Family; Visit Provider Internal Medicine Interventional Cardiology
DX: I50.41 Acute combined systolic (congestive) and diastolic (congestive) heart failure (principal)
CPT/HCPCS: 36415; 80048; 83880; 85025

== ENCOUNTER 2024-10-25 12:40 | Outpatient (OUT) | payer MEDICARE, SELFPAY ==
[2024-10-25 12:58] LABS: Basophils Percent Auto 0.4 % (0.2-2.0); Eosinophils Absolute Auto 0.2 10^3/uL (0.0-0.7); Eosinophils Percent Auto 1.7 % (0.9-7.0); Hematocrit 38.1 % (36.0-48.0); Immature Granulocytes Abs Auto 0.01 10^3/uL (0.00-0.03); Immature Granulocytes Pct Auto 0.1 % (0.0-0.5); Lymphocytes Absolute Auto 2.9 10^3/uL (1.2-3.8); Lymphocytes Percent Auto 32.6 % (20.5-60.0); Mean Corpuscular HGB Conc 34.1 g/dL (29.9-35.2); Mean Corpuscular Hemoglobin 32.6 pg (26.7-34.0); Mean Corpuscular Volume 95.5 fL (81.0-99.0); Mean Platelet Volume 10.3 fL (9.5-13.5); Monocytes Absolute Auto 0.6 10^3/uL (0.3-0.8); Monocytes Percent Auto 6.8 % (1.7-12.0); Neutrophils Absolute Auto 5.2 10^3/uL (1.4-6.5); Neutrophils Percent Auto 58.4 % (43.0-75.0); Platelet Count 189 10^3/uL (150-450); Red Blood Count 3.99 10^6/uL (4.20-5.40); Red Cell Distribution Width 12.6 % (11.0-15.0)
[2024-10-25 15:07] LABS: Anion Gap 10.8; BUN Creatinine Ratio 8.5; Calcium 9.1 mg/dL (8.5-10.1); Carbon Dioxide 28.3 mmol/L (21.0-32.0); Chloride 98 mmol/L (98-107); Estimated GFR (African America 58 (>=60 mL/min/1.73m^2); Estimated GFR (Non-African Ame 48 (>=60 mL/min/1.73m^2); Glucose 97 mg/dL (74-106); Potassium 4.1 mmol/L (3.5-5.1); Sodium 133 mmol/L (136-145)
== END 2024-10-25 12:41 | disposition home or self-care (01) ==
LOC: LAB 12:42
PROVIDERS: PCP Nurse Practitioner Family; Visit Provider Internal Medicine Interventional Cardiology
DX: R53.83 Other fatigue (principal)
CPT/HCPCS: 36415; 80048; 85025

== ENCOUNTER 2025-01-03 06:56 | Outpatient (RCR) | payer MEDICARE, SELFPAY ==
--- NOTE | 2024-09-06 14:32 | CR1_ITS ---
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
--- NOTE | 2024-09-09 13:39 | CR1_ITS ---
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
--- NOTE | 2024-10-07 07:55 | CR1_ITS ---
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
--- NOTE | 2024-11-05 14:07 | CR1_ITS ---
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
--- NOTE | 2024-12-03 14:19 | CR1_ITS ---
The [facility] Test Date: 2024-12-03 Pat Name: JAVIER LINK Department: Room: - Gender: Female Card Reader: : 1970 Requested By: Juan Abreu Order Number: [id number] Deanna MD: Juan Abreu Interpretive Statements Session Date: 12/03/2024 Okay to continue with outlined treatment plan. Electronically Signed On 12-04-2024 11:19:05 EDT by Juan Abreu
--- NOTE | 2025-01-01 09:59 | CR1_ITS ---
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 The patient is encouraged to continue participating in cardiac rehabilitation. Electronically Signed On 01-01-2025 18:36:58 EDT by Juan Abreu
== END 2025-01-03 10:13 | disposition home or self-care (01) ==
LOC: CR 06:56
PROVIDERS: PCP Nurse Practitioner Family; Visit Provider Internal Medicine Interventional Cardiology
DX: I25.10 Atherosclerotic heart disease of native coronary artery without angina pectoris (principal); Z95.0 Presence of cardiac pacemaker
CPT/HCPCS: 93798

== ENCOUNTER 2025-01-31 07:43 | Outpatient (OUT) | payer MEDICARE, SELFPAY ==
--- OUTSIDE RECORDS SUMMARY | 2024-12-23 13:15 | XMS_ITS ---
Author Organization [facility] [place] Address [address] [place] [address] Care Team Providers Care Surgical Coordinator Name Role Phone Samia Rosales Primary Care Provider [phone] REASON FOR VISIT Ozempic prescription Encounters Encounter Location Date Provider Diagnosis [facility] [address] [place] [address] 12/23/2024 Samia Rosales Plan Of Treatment Next Appt Details Provider Name:Samia martins, 07/23/2025 10:00:00 AM, [address] [place], [address], Progress Notes * NIKOLAYAna KDOB: [birth year] (54 yo F)Acc No.[id number]:12/23/2024 Patient: Tu DERICGWEN Ana Bebo :1970 A ge:54 Y S ex:Female Address:[address] [place] [id number] * true * Date: Generated for Printi ng/Famartyg/eTransmitting on: 0 01/31/2025 07:45 AM EDT
--- OUTSIDE RECORDS SUMMARY | 2025-01-21 06:00 | XMS_ITS ---
Author Organization [facility] in [place] Address [address] [place] [address] Care Team Providers Care Border Measurer Name Role Phone Samia Rosales Primary Care Provider [phone] Allergies Allergen (clinical drug ingredient) Drug/Non Drug Allergy documented on EMR Reaction Allergy Type Onset Date Status paper tape (uncoded) rash Allergy Active moxifloxacin Avelox swelling/itching Drug Allergy Active REASON FOR VISIT 6 month follow up Medications Medication SIG (Take, Route, Frequency, Duration) Notes Start Date End Date Status Spironolactone 25 MG 1 tablet Orally Active Potassium Chloride Tori ER 10 MEQ 1 tablet with food Oral once daily for 90 days Active Triamcinolone Acetonide 0.05 % 1 application Externally Twice a day 01/21/2025 Active ZyrTEC Allergy 10 MG 1 tablet Orally Onc e a day Active Vitamin D (Cholecalciferol) 50 MCG (2000 UT) 1 capsule Orally Once a day Active Pantoprazole Sodium 40 MG 1 tablet Orall y Once a day Active Ozempic (2 MG/DOSE) 8 MG/3ML as directed Subcutaneous once weekly for 28 days 02/20/2024 Active Levothyroxine Sodium 125 MCG 1 tablet in the morning on an empty stomach Oral Once a day for 90 days Active Furosemide 20 MG 1 tablet Orally Once a day for 90 days Active Entresto 49-51 MG 1 tablet Orally Twic e a day Active buPROPion HCl ER (XL) 300 MG TAKE 1 TABLET BY MOUTH DAILY for 90 Active DULoxetine HCl 40 MG TAKE 1 CAPSULE BY M OUTH TWICE A DAY for 90 days Active Clopidogrel Bisulfate 75 MG 1 tablet Ora l Once a day for 90 days Active Carvedilol 12.5 MG 1 tablet Oral BID fo r 90 days Active busPIRone HCl 15 MG TAKE 1 TABLET BY DOLORES TH TWICE A DAY for 30 Active Atorvastatin Calcium 80 MG 1 tablet Oral Once a day for 90 days Active Aspirin 81 81 MG 1 tablet Orally Once a day Active Arnuity Ellipta 100 MCG/ACT 1 puff Inhal ation Once a day for 30 days 10/16/2023 Active Albuterol Sulfate HFA 108 (90 Base) MCG/ACT 2 puff as needed Inhalation every 4 hrs for 30 01/25/2024 Active Ivabradine HCl 5 MG 1 tablet with meals Orally Twice a day Active Mupirocin 2 % 1 application Gas Station Attendant ally Twice a day for 5 days 01/21/2025 Active Social History Tobacco Use: Social History Observation Description Date Details (start date - stop date) Former Smoker 08/14/1985 - 08/14/2022 Tobacco Use/Smoking Question Answer Notes Patient is a former smoker When did you start smoking? 08/14/1985 When did you stop smoking? 08/14/2022 How long has it been since you last smoked? 6-12 months AUDIT-C (Standard) Question Answer Notes Did you have a drink containing alcohol in the p ast year? 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) Interstitial pulmonary disease, unspecified (J84.9) Active confirmed Vital Signs Weight 136.2 lbs 01/21/2025 Height 58 in 01/21/2025 Blood pressure systolic 108 mm Hg 01/22/20 25 Blood pressure diastolic 64 mm Hg 025 BMI 28.46 kg/m2 01/21/2025 Encounters Encounter Location Date Provider Diagnosis [facility] [address] [place] [address] 01/21/2025 Samia Rosales Chronic kidney disease, stage 3a N18.31 ; Interstitial pulmonary disease, unspecified J84.9 ; Hypertensive heart disease with heart failure I11.0 ; Psoriasis L40.9 ; Folliculitis L73.9 and Anxiety and depression F41.8 Assessments Encounter Date Diagnosis (ICD Code) Assessment Notes Treatment Notes Treatment Clinical Notes Section Notes 01/21/2025 Chronic kidney disease, stage 3a (ICD-10 - N18.31) continue to monitor, labs in Apr BP controlled 01/21/2025 Interstitial pulmonary disease, unspecified (ICD-10 - J84.9) has stopped smoking 01/21/2025 Hypertensive heart disease with heart failure (ICD-10 - I11.0) sees cardiology upcoming echo 01/21/2025 Psoriasis (ICD-10 - L40.9) 01/21/2025 Folliculitis (ICD-10 - L73.9) 01/21/2025 Anxiety and depression (ICD-10 - F41.8) continue meds, helping some consider counseling, referral sheet given handout given, healthy lifestyle habits to support good mental health Plan Of Treatment Medication Medication Name Sig Start Date Stop Date Notes Triamcinolone Acetonide 0.05 % 1 applica tion Externally Twice a day 01/21/2025 Mupirocin 2 % 1 application Gas Station Attendant ally Twice a day for 5 days 01/21/2025 Treatment Notes Assessment Notes Chronic kidney disease, stage 3a continue to monitor, labs in Apr BP controlled Interstitial pulmonary disease, unspecif ied has stopped smoking Hypertensive heart disease w ith heart failure sees cardiology upcoming echo Anxiety and depression continue meds, helping some consider counseling, referral sheet given handout given, healthy lifestyle habits to support good mental health Next Appt Details Follow Up: 6 Months,prn, [place] son: Provider Name:Samia martins, 07/23/2025 10:00:00 AM, [address] [place], [address], Progress Notes * MILESAna MORIN KDOB: [birth year] (54 yo F)Acc No.[id number]:01/21/2025 Progress Note Patient: Ana GAR Provider: Rick Rosales ([facility]), EVENTS MANAGER :1970 A ge:54 Y S ex:Female Date:01/21/2025 Address:[address] [place], [place] [id number] Check In:09:44 AM ESTCheck O ut:10:16 AM EST Subjective: * Chief Complaints: * 1 . 6 month follow up. * HPI: D epression Screening: PHQ-2 (2015 Edition) L ittle interest or pleasure in doing things??More than half the days F eeling down, depressed, or hopeless? S everal days T otal Score 3 D epression Screening: PHQ-9 L ittle interest or pleasure in doing things?More than half the days F eeling down, depressed, or hopeless S everal days T rouble falling or staying asleep, or sleeping too much N ot at all F eeling tired or having little energy S everal days P oor appetite or overeating S everal days F eeling bad about yourself or that you are a failure, or have let yourself or your family down S everal days T rouble concentrating on things, such as reading the newspaper or watching television N ot at all M oving or speaking so slowly that other people could have noticed; or the opposite, being so fidgety or restless that you have been moving around a lot more than usual N ot at all T houghts that you would be better off or of hurting yourself in some way N ot at all T otal Score 6 I nterpretation M ild Depression G eneral: cardiology and dermatology psoriasis on elbows, two scabs on back neck counseling ?. * ROS: G eneral/Constitutional: Anxiety s ome. D epression s ome due to health issues. F ever d enies. H eadache d enies. W eight loss d enies. ? O phthalmologic: Discharge d enies. E ye Pain d enies. I tching and redness d enies. E NT: Nasal discharge d enies. N linda congestion d enies.?Sore throat d enies. C ardiovascular: Chest tightness/ heavy pressure d enies. R apid heart rate d enies. S welling of extremities d enies. C hest pain d enies. ? R espiratory: Productive cough d enies. C hest pain d enies. C ough d enies. S hortness of breath d enies. W heezing d enies. ? G astrointestinal: Abdominal pain d enies. C onstipation d enies. D ecreased appetite d enies. D iarrhea d enies. N ausea d enies. V omiting?denies. G enitourinary: Urinary incontinence d enies. P ainful urination d enies. M usculoskeletal: Back pain d enies. N linda pain d enies. M uscle aches d enies. S kin: Rash d enies. S kin lesion(s) d enies. ? 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 Modified On:01/16/2023U Status:confirmed F41.1 Generalized anxiety disorder Modified On:08/10/2023U Status:confirmed J21.9 Acute bronchiolitis Modified On:05/08/2023U Status:confirmed E55.9 Vitamin D deficiency , unspecified Modified On:05/12/2023 Status:confirmed M18.11 Unilateral primary o steoarthritis of first carpometacarpal joint, right hand Modified On:05/25/2023U Status:confirmed M65.4 Radial styloid tenos ynovitis [de Quervain] Modified On:05/25/2023U Status:confirmed M24.132 Other articular cart ilage disorders, left wrist Modified On:05/25/2023U Status:confirmed J45.909 Asthma Modified On:08/10/2023U Status:confirmed N95.1 Hot flashes Modified On:07/23/2024U Status:confirmed N18.31 Chronic kidney disea se, stage 3a Modified On:07/23/2024U Status:confirmed F41.8 Anxiety and depressi on Modified On:07/23/2024U Status:confirmed J84.9 Interstitial pulmona ry disease, unspecified Modified On:01/21/2025/U Status:confirmed I11.0 Hypertensive heart d isease with heart failure Modified On:01/21/2025/U Status:confirmed L40.9 Psoriasis Modified On:01/21/2025U Status:confirmed * Medical History: C hronic Systolic Heart Failure, Asthma, Former smoker. * Surgical History: C -Section x2 , Tubal Ligation & Ablasion , Left Wrist surgery , Partial Left knee replacement & Full Right , Defibulator placement , Angio with stent placement . * Hospitalization/Major Diagno stic Procedure: I nfection 05/2022, UTI, Hyponatremia 05/07. * Family History: F ather: alive, diagnosed with Diabetes mellitus without mention of complication, type II or unspecified type, not stated as uncontrolled, Unspecified essential hypertension, Unspecified heart disease. M other: alive, COPD, diagnosed with Unspecified heart disease. S ister(s): diagnosed with Other malignant neoplasm of unspecified site. 3 brother(s) , 2 sister(s) . 3 son(s) . .? * Social History: T obacco Use: T obacco Use/Smoking P atient is a f ormer smoker W hen did you start smoking? 0 08/14/1985 W hen did you stop smoking? 0 08/14/2022 H ow long has it been since you last smoked??6-12 months D rug/Alcohol: A LIZZY-C (Standard) D id you have a drink containing alcohol in the past year? N o P oints 0 I nterpretation N egative * Medications: T aking Albuterol Sulfate HFA 108 (90 Base) MCG/ACT Aerosol Solution 2 puff as needed Inhalation every 4 hrs , Taking Arnuity Ellipta(Fluticasone Furoate) 100 MCG/ACT Aerosol Powder Breath Activated 1 puff Inhalation Once a day , Taking Aspirin 81(Aspirin) 81 MG Tablet Delayed Release 1 tablet Orally Once a day , Taking Atorvastatin Calcium 80 MG Tablet 1 tablet Oral Once a day , Taking buPROPion HCl ER (XL) 300 MG Tablet Extended Release 24 Hour TAKE 1 TABLET BY MOUTH DAILY , Taking busPIRone HCl 15 MG Tablet TAKE 1 TABLET BY MOUTH TWICE A DAY , Taking Carvedilol 12.5 MG Tablet 1 tablet Oral BID , Taking Clopidogrel Bisulfate 75 MG Tablet 1 tablet Oral Once a day , Taking DULoxetine HCl 40 MG Capsule Delayed Release Particles TAKE 1 CAPSULE BY MOUTH TWICE A DAY , Taking Entresto(Sacubitril-Valsartan) 49-51 MG Tablet 1 tablet Orally Twice a day , Taking Furosemide 20 MG Tablet 1 tablet Orally Once a day , Taking Ivabradine HCl 5 MG Tablet 1 tablet with meals Orally Twice a day , Taking Levothyroxine Sodium 125 MCG Tablet 1 tablet in the morning on an empty stomach Oral Once a day , Taking Ozempic (2 MG/DOSE)(Semaglutide (2 MG/DOSE)) 8 MG/3ML Solution Pen-injector as directed Subcutaneous once weekly , Taking Pantoprazole Sodium 40 MG Tablet Delayed Release 1 tablet Orally Once a day , Taking Potassium Chloride Tori ER 10 MEQ Tablet Extended Release 1 tablet with food Oral once daily , Taking Spironolactone 25 MG Tablet 1 tablet Orally , Taking Vitamin D (Cholecalciferol) 50 MCG (2000 UT) Capsule 1 capsule Orally Once a day , Taking ZyrTEC Allergy(Cetirizine HCl) 10 MG Tablet 1 tablet Orally Once a day , Medication List reviewed and reconciled with the patient * Allergies: A velox: swelling/itching, paper tape: rash. Objective: * Vitals: W t:136.2lbs, Ht: 58 in, BP:108/64mm Hg, BMI:28.46Index, Ht-cm: 147.32 cm, Wt-k.78 kg. * Examination: G eneral Examinations: GENERAL APPEARANCE: a lert and oriented, i n no acute distress. EYES: c onjunctiva normal, sclera non-icteric. NOSE: n ormal external appearance. LUNGS: c lear to auscultation bilaterally, diminished breath sounds in the bases. CARDIO: r egular rate and rhythm, S1, S2 normal. ABDOMEN: s oft, nontender. MUSCULOSKELETAL: G ait and station normal. SKIN: w arm and dry, mild psoriasis patches to elbows two scabs to scalp back of head. ? Assessment: * Assessment: 1. C hronic kidney disease, stage 3a - N18.31 (Primary) 2 . I nterstitial pulmonary disease, unspecified - J84.9 3 . H ypertensive heart disease with heart failure - I11.0 4 . P soriasis - L40.9 5 . F olliculitis - L73.9 6 . A nxiety and depression - F41.8 Plan: * Treatment: 2. I nterstitial pulmonary disease, unspecified Notes: has stopped smoking 3. H ypertensive heart disease with heart failure Notes: sees cardiology upcoming echo 4. P soriasis Start Triamcinolone Acetonide Ointment, 0.05 %, 1 application, Externally, Twice a day, 1, Refills 2. 5. F olliculitis Start Mupirocin Ointment, 2 %, 1 application, Externally, Twice a day, 5 days, 1, Refills 0. ? 6. A nxiety and depression Notes: continue meds, helping some consider counseling, referral sheet given handout given, healthy lifestyle habits to support good mental health * Preventive Medicine: Screenings/Counseling: B [place] ACTION PLAN Above Normal BMI Follow-up D ietary management education, guidance, and counseling * Follow Up: 6 Months,prn * * Electronically signed by Maria De Jesus Rosales NP, [employer] INSTALLER.EVENTS MANAGER.[id number] on 01/22/2025 at 10:24 AM EDT Sign off status: Completed Visit Status: C HK (Check Out) true * Provider: Rick Rosales ([facility]), EVENTS MANAGER Date: 0 01/21/2025 Generated for Claudia deal/Clint/Jm on: 0 01/31/2025 07:45 AM EDT History and Physical Notes * HPI (History of Present Illness) Category Sub-Category Detail Notes Category Not es Depression Screening PHQ-9 Little inte rest or pleasure in doing things: More than half the days Feeling down, depressed, or hopeless: Se veral days Trouble falling or staying asleep, or sl eeping too much: Not at all Feeling tired or having little energy: S everal days Poor appetite or overeating: Several day s Feeling bad about yourself o r that you are a failure, or have let yourself or your family down: Several days Trouble concentrating on thi ngs, such as reading the newspaper or watching television: Not at all Moving or speaking so slowly that other people could have noticed; or the opposite, being so fidgety or restless that you have been moving around a lot more than usual: Not at all Thoughts that you would be b vania off or of hurting yourself in some way: Not at all Total Score: 6 Interpretation: Mild Depression General cardiology and dermatology psoriasis on elbows, two scabs on back neck counseling ? Depression Screening PHQ-2 (2015 Edition) Little interest or pleasure in doing things?: More than half the days Feeling down, depressed, or hopeless?: S everal days Total Score: 3 Examination Category Sub-Category Detail Notes Category Not es General Examinations GENERAL APPEARANCE: alert a nd oriented, in no acute distress EYES: conjunctiva normal, sclera non-icteric EARS: NOSE: normal external appe arance THROAT: CARDIO: regular rate and rhy thm, S1, S2 normal LUNGS: clear to auscultatio n bilaterally, diminished breath sounds in the bases ABDOMEN: soft, nontender SKIN: warm and dry, mild p soriasis patches to elbows two scabs to scalp back of head BACK: MUSCULOSKELETAL: Gait and station nor mal LYMPH NODES:
--- OUTSIDE RECORDS SUMMARY | 2025-01-22 04:14 | XMS_ITS ---
Author Organization [facility] in [place] Address [address] [place] [address] Care Team Providers Care Gericare Aide Name Role Phone Samia Rosales Primary Care Provider REASON FOR VISIT change ointment Medications Medication SIG (Take, Route, Frequency, Duration) Notes Start Date End Date Status Hydrocortisone Acetate 1 % 1 application Externally BID for 14 days 01/22/2025 Active Encounters Encounter Location Date Provider Diagnosis [facility] [place] [address] [place] [address] 01/22/2025 Samia Rosales Plan Of Treatment Medication Medication Name Sig Start Date Stop Date Notes Hydrocortisone Acetate 1 % 1 application Externally BID for 14 days 01/22/2025 Next Appt Details Provider Name:Samia martins, 07/23/2025 10:00:00 AM, [address] [place], [address], Progress Notes * AGUSTOAna CHÁVEZ KDOB: [birth year] (54 yo F)Acc No.[id number]:01/22/2025 Patient: Ana GAR :1970 A ge:54 Y S ex:Female Address:[address] [place] [id number] * Refills Start Hydrocortisone Acetate Ointment, 1 %, Externally, 1, 1 application, BID, 14 days, Refills=2 Subjective: * Chief Complaints: * C hange ointment * Medical History: * Surgical History: * Hospitalization/Major Diagno stic Procedure: * Medications: Objective: * Vitals: * Physical Examination: Assessment: Plan: * Treatment: * Procedure Codes: * true * Date: Generated for Claudia deal/Clint/Jm on: 0 01/31/2025 07:46 AM EDT
--- NOTE | 2025-01-31 07:45 | CA_ITS ---
Patient Name: JAVIER LINK MR#: [id number] : 1970 Exam Date: 01/31/2025 Ordering Doctor: DR DEENA SANTA M.D. ECHOCARDIOGRAM REPORT PROCEDURE: CA ECHO DOPPLER COMPLETE INDICATIONS: Chronic systolic heart failure, AICD COMPARISON: None. DESCRIPTION: COMPLETE ECHOCARDIOGRAM Real-time transthoracic echocardiography with 2D, M-mode, spectral and color flow Doppler performed. QUALITY: Technical quality was good. LEFT VENTRICLE: Normal chamber size. Borderline left ventricular hypertrophy. There is akinesis of the apex and apical segments. No evidence of thrombus seen. Systolic function is moderately reduced. Estimated LVEF is 35%. LV EF: Moderately reduced left ventricular ejection fraction, (35%). DIASTOLIC: ATRIAL SEPTUM: Visually appears intact. LEFT ATRIUM: Mild dilatation. RIGHT ATRIUM: Normal chamber size. RIGHT VENTRICLE: Normal chamber size. Normal systolic function. Pacer wire present. TRICUSPID VALVE: Normal mobility and thickness. No stenosis with mild regurgitation. Doppler studies reveal mildly (35-45) elevated right sided pressures. RVSP 36 mmHg MITRAL VALVE: Normal mobility and thickness. No evidence of mitral valve stenosis. Mild mitral regurgitation. AORTIC VALVE: Normal trileaflet appearance. Mildly calcified aortic valve. Normal leaflet mobility. No aortic stenosis. No aortic regurgitation. AORTIC ROOT: Normal diameter and appearance. Aortic arch is normal in size. PULMONIC VALVE: Normal thickness and mobility. No stenosis. Trivial regurgitation. PERICARDIUM: No evidence of pericardial effusion. IVC: Collapses with inspiration. IVC is normal in size. PLEURA: CONCLUSION: 1. Left ventricle is normal in size and exhibits akinesis of the apex and apical segments. Global left ventricular systolic function is moderately reduced. Estimated LVEF is 35%. No evidence of left ventricular thrombus. 2. Normal right ventricular size and systolic function. 3. Mild mitral and tricuspid regurgitation. 4. Mildly elevated right-sided pressures. Adult Echocardiography Procedure Report Left Ventricle LVEDD (3.7 - 5.6 cm): 4.44 cm LVESD (2.2 - 4.0 cm): 3.37 cm LVIVS thickness (0.6 - 1.2 cm): 1.15 cm LVPW thickness (0.5 - 1.0 cm): 1.03 cm e': 0.06 m/s E - e': 11.73 LVOT Max Gradient: 2.55 mm[Hg] LVOT Area (cm2): 0.80 m/s Peak Velocity (LVOT): 0.80 m/s Mean Velocity (LVOT): 0.54 m/s LVOT Diameter 1.93 cm Left Atrium LA Volume Index (2D A2C): 39.01 ml/m2 Left Atrium Systolic Dimension: 2.88 cm Mitral Valve MV E to A Ratio: 0.69 Mitral Valve A-Wave Peak Velocity: 0.97 m/s Mitral Valve E-Wave Peak Velocity: 0.67 m/s Right Ventricle Aorta AO Root Diam: 2.76 cm Aortic Valve Peak Velocity(Antegrade Flow): 1.97 m/s, 2.19 m/s Peak Gradient(Antegrade Flow): 15.45 mm[Hg], 19.22 mm[Hg] Mean Velocity(Antegrade Flow): 1.39 m/s, 1.50 m/s Mean Gradient(Antegrade Flow): 8.74 mm[Hg], 10.28 mm[Hg] Velocity Time Integral: 46.89 cm, 51.38 cm Tricuspid Valve Peak Velocity (Regurgitant Flow): 2.75 m/s, 2.87 m/s Pulmonic Valve Mean Gradient: 2.88 mm[Hg] Mean Velocity: 0.80 m/s Peak Velocity: 1.12 m/s, 1.03 m/s Peak Gradient: 4.25 mm[Hg], 5.01 mm[Hg] Right Atrium Right Atrium Systolic Pressure: 32.18 ml, 32.18 ml Dictated by: Deena Santa M.D. on 01/31/2025 at 18:24 Approved by: Deena Santa M.D. on 01/31/2025 at 18:31
--- OUTSIDE RECORDS SUMMARY | 2025-01-31 07:46 | XMS_ITS | Patient Health Record ---
Author Organization [facility] in [place] Address [address] [place] [address] Care Team Providers Care Rocket Assembly Operator Name Role Phone Samia Kellogg Primary Care Provider SAMIA KELLOGG Unavailable [phone] Allergies Allergen (clinical drug ingredient) Drug/Non Drug Allergy documented on EMR Reaction Allergy Type Onset Date Status paper tape (uncoded) rash Allergy Active moxifloxacin Avelox swelling/itching Drug Allergy Active Results Component Value Reference Range Notes ECG 12 lead Reviewed date:05/06/2024 02:15:27 PM Interpretation: Performing Lab: Notes/Report: Source Facility: [place] [address] Electrocardiograph Report Signed Patient: JAVIER LINK MR#: [id number] : 1970 Acct:[id number] Age/Sex: 54 / F ADM Date: 05/04/24 Loc: MS 231-[address]: Shaikh Katarzyna Leahy Ordering Physician: Elliott Oviedo M.D. 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1970 Requested By: SAMIA KELLOGG Order Number: [id number] Deanna MD: PRANAV DE SANTIAGO Measurements Intervals Means Rate: 66 P: 52 ND: 154 QRS: -75 QRSD: 84 T: 103 QT: 392 QTc: 406 Interpretive Statements 1100 Sinus rhythm 2630 Left anterior fascicular block 3334 Anterolateral myocardial infarction, age undetermined 3614 Cannot rule out inferior myocardial infarction, age undetermined 8100 Low QRS voltage 9150 abnormal ECG Compared to ECG 06/03/2022 18:15:49 Left anterior fascicular block now present Ventricular premature complex(es) no longer present Myocardial infarct finding still present Electronically Signed On 05-05-2024 20:26:12 EDT by PRANAV DE SANTIAGO Dictated By: Pranav De Santiago D.O. Signed By: 05/05/242025 DD/ 50 TD/TT: Cold Saw Operator: [place] [address] Electrocardiograph Report Signed Patient: LIN LINK MR#: [id number] : 1970 Acct:[id number] Age/Sex: 54 / F ADM Date: 05/04/24 Loc: MS 231-[address]: Shaikh Katarzyna Leahy Ordering Physician: Elliott Oviedo M.D. 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1970 Requ ested By: SAMIA KELLOGG Order Number: [id number] Reading MD: PRANAV DE SANTIAGO Measurements Intervals Means Rate: 66 P: 52 ND: 154 QRS: -75 QRSD: 84 T: 103 QT: 392 QTc: 406 Interpretive Statements 1100 Sinus rhythm 2630 Left anterior fascicular block 3334 Anterolateral myocardial infarction, age undetermined 3614 Cannot rule out inferior myocardial infarction, age undetermined 8100 Low QRS voltage 9150 abnormal ECG Compared to ECG 06/03/2022 18:15:49 Left anterior fascic ular block now present Ventricular prematur e complex(es) no longer present Myocardial infarct finding still present Electronically Sayra d On 05-05-2024 20:26:12 EDT by PRANAV DE SANTIAGO Dictated By: Pranav De Santiago D.O. Signed By: 05/05/242025 DD/ 50 TD/TT: Cold Saw Operator: CBC AUTO DIFF Reviewed date:05/06/2024 02:15:27 PM Interpretation: Performing Lab: Notes/Report: [facility] , White Blood Count 8.5 4.0-11.0 10 3/uL Red Blood Count 3.48 4.20-5.40 10 6/uL Hemoglobin 11.2 12.0-16.0 g/dL Hematocrit 34.0 36.0-48.0 % Mean Corpuscular Volume 97.7 81.0-99.0 fL Mean Corpuscular Hemoglobin 32.2 26.7-34.0 pg Mean Corpuscular HGB Conc 32.9 29.9-35.2 g/dL Red Cell Distribution Width 12.7 11.0-15.0 % Platelet Count 230 150-450 10 3/uL Mean Platelet Volume 10.0 9.5-13.5 fL Neutrophils Percent Auto 65.6 43.0-75.0 % Lymphocytes Percent Auto 23.4 20.5-60.0 % Monocytes Percent Auto 8.2 1.7-12.0 % Eosinophils Percent Auto 2.0 0.9-7.0 % Basophils Percent Auto 0.6 0.2-2.0 % Immature Granulocytes Pct Auto 0.2 0.0-0.5 % Neutrophils Absolute Auto 5.6 1.4-6.5 10 3/uL Lymphocytes Absolute Auto 2.0 1.2-3.8 10 3/uL Monocytes Absolute Auto 0.7 0.3-0.8 10 3/uL Eosinophils Absolute Auto 0.2 0.0-0.7 10 3/uL Basophils Absolute Auto 0.1 0.0-0.1 10 3/uL Immature Granulocytes Abs Auto 0.02 0.00-0.03 10 3/uL Performing Lab: see note - [facility] FREE T4 Reviewed date:05/06/2024 02:15:27 PM Interpretation: Performing Lab: Notes/Report: [facility] , Free T4 1.34 0.76-1.46 ng/dL Performing Lab: see note ML - [facility] LB PROF 14(COMP METB) Reviewed date:06/10/2024 08:50:19 AM Interpretation: Performing Lab: Notes/Report: [facility] , Sodium 136 136-145 mmol/L Potassium 3.6 3.5-5.1 mmol/L Chloride 99 98-107 mmol/L Carbon Dioxide 27.7 21.0-32.0 mmol/L Anion Gap 12.9 Glucose 83 74-106 mg/dL SPECIMEN SLIGHT LY LIPEMIC Blood Urea Nitrogen 9.0 7.0-18.0 mg/dL Creatinine 1.11 0.55-1.02 mg/dL Estimated GFR ( Renea >60 >=60 mL/min/1.73m 2 Estimated GFR (Non- Maria De Jesus 51 >=60 mL/min/1.73m 2 BUN Creatinine Ratio 8.1 Calcium 9.2 8.5-10.1 mg/dL Bilirubin Total 0.5 0.2-1.0 mg/dL Aspartate Amino Transferase 18 15-37 U/L Alanine Aminotransferase 22 14-59 U/L Alkaline Phosphatase 131 46-116 U/L Total Protein 7.5 6.4-8.2 g/dL Albumin Level 3.5 3.4-5.0 g/dL Globulin 4.0 Albumin Globulin Ratio 0.9 Performing Lab: see note ML - [facility] LB Urine Culture, Routine Reviewed date:07/01/2024 09:32:45 AM Interpretation: Performing Lab: Notes/Report: [facility] , Urine Culture, Routine See Below For Report Urine Culture, Routine Organism: Escherichia coli. : O:ESCHCO Isolated Organism: 1.1 Antibiotic Interpretation MISTY Status Urine Culture, Routine *ABNORMAL* Urine Culture, Routine Organism: Escherichia coli. : O:ESCHCO Isolated Organism: 1.1 Antibiotic Interpretation MISTY Status Urine Culture, Routine 50,000-100,000 co lony forming units per mL Urine Culture, Routine Organism: Escherichia coli. : O:ESCHCO Isolated Organism: 1.1 Antibiotic Interpretation MISTY Status Urine Culture, Routine Escherichia coli. Urine Culture, Routine Organism: Escherichia coli. : O:ESCHCO Isolated Organism: 1.1 Antibiotic Interpretation MISTY Status Urine Culture, Routine Organism: Escheri sebastian coli. : Urine Culture, Routine Organism: Escherichia coli. : O:ESCHCO Isolated Organism: 1.1 Antibiotic Interpretation MISTY Status Urine Culture, Routine *ABNORMAL* Urine Culture, Routine Organism: Escherichia coli. : O:ESCHCO Isolated Organism: 1.1 Antibiotic Interpretation MISTY Status Urine Culture, Routine Cefazolin <=4 ug/mL Urine Culture, Routine Organism: Escherichia coli. : O:ESCHCO Isolated Organism: 1.1 Antibiotic Interpretation MISTY Status Urine Culture, Routine Cefazolin with an MISTY <=16 predicts susceptibility Urine Culture, Routine Organism: Escherichia coli. : O:ESCHCO Isolated Organism: 1.1 Antibiotic Interpretation MISTY Status Urine Culture, Routine to the oral agent s cefaclor, cefdinir, cefpodoxime, Urine Culture, Routine Organism: Escherichia coli. : O:ESCHCO Isolated Organism: 1.1 Antibiotic Interpretation MISTY Status Urine Culture, Routine cefprozil, cefuro kareem, cephalexin, and loracarbef when Urine Culture, Routine Organism: Escherichia coli. : O:ESCHCO Isolated Organism: 1.1 Antibiotic Interpretation MISTY Status Urine Culture, Routine used for therapy of uncomplicated urinary tract Urine Culture, Routine Organism: Escherichia coli. : O:ESCHCO Isolated Organism: 1.1 Antibiotic Interpretation MISTY Status Urine Culture, Routine infections due to E. coli, Klebsiella pneumoniae, and Urine Culture, Routine Organism: Escherichia coli. : O:ESCHCO Isolated Organism: 1.1 Antibiotic Interpretation MISTY Status Urine Culture, Routine Proteus mirabilis. Urine Culture, Routine Organism: Escherichia coli. : O:ESCHCO Isolated Organism: 1.1 Antibiotic Interpretation MISTY Status Urine Culture, Routine 50,000-100,000 co lony forming units per mL Urine Culture, Routine Organism: Escherichia coli. : O:ESCHCO Isolated Organism: 1.1 Antibiotic Interpretation MISTY Status Urine Culture, Routine Urine Culture, Routine Organism: Escherichia coli. : O:ESCHCO Isolated Organism: 1.1 Antibiotic Interpretation MISTY Status Urine Culture, Routine Mixed urogenital alis Urine Culture, Routine Organism: Escherichia coli. : O:ESCHCO Isolated Organism: 1.1 Antibiotic Interpretation MISTY Status Urine Culture, Routine Less than 10,000 colonies/mL Urine Culture, Routine Organism: Escherichia coli. : O:ESCHCO Isolated Organism: 1.1 Antibiotic Interpretation MISTY Status Urine Culture, Routine See Below For Report Urine Culture, Routine Organism: Escherichia coli. : O:ESCHCO Isolated Organism: 1.1 Antibiotic Interpretation MISTY Status Urine Culture, Routine Performed at: CB - [facility] Urine Culture, Routine Organism: Escherichia coli. : O:ESCHCO Isolated Organism: 1.1 Antibiotic Interpretation MISTY Status Urine Culture, Routine [address], [place] [id number] Urine Culture, Routine Organism: Escherichia coli. : O:ESCHCO Isolated Organism: 1.1 Antibiotic Interpretation MISTY Status Urine Culture, Routine Hand Molder And Caster: Lm Taylor PhD, Phone: [phone] Urine Culture, Routine Organism: Escherichia coli. : O:ESCHCO Isolated Organism: 1.1 Antibiotic Interpretation MISTY Status Urine Culture, Routine See Below For Report Urine Culture, Routine Organism: Escherichia coli. : O:ESCHCO Isolated Organism: 1.1 Antibiotic Interpretation MISTY Status Urine Culture, Routine AMOXICILLIN/CLAVU LANIC ACID S F Urine Culture, Routine Organism: Escherichia coli. : O:ESCHCO Isolated Organism: 1.1 Antibiotic Interpretation MISTY Status Urine Culture, Routine Ampicillin S F Urine Culture, Routine Organism: Escherichia coli. : O:ESCHCO Isolated Organism: 1.1 Antibiotic Interpretation MISTY Status Urine Culture, Routine Cefepime S F Urine Culture, Routine Organism: Escherichia coli. : O:ESCHCO Isolated Organism: 1.1 Antibiotic Interpretation MISTY Status Urine Culture, Routine Ceftriaxone S F Urine Culture, Routine Organism: Escherichia coli. : O:ESCHCO Isolated Organism: 1.1 Antibiotic Interpretation MISTY Status Urine Culture, Routine Cefuroxime S F Urine Culture, Routine Organism: Escherichia coli. : O:ESCHCO Isolated Organism: 1.1 Antibiotic Interpretation MISTY Status Urine Culture, Routine Ciprofloxacin S F Urine Culture, Routine Organism: Escherichia coli. : O:ESCHCO Isolated Organism: 1.1 Antibiotic Interpretation MISTY Status Urine Culture, Routine Ertapenem S F Urine Culture, Routine Organism: Escherichia coli. : O:ESCHCO Isolated Organism: 1.1 Antibiotic Interpretation MISTY Status Urine Culture, Routine Gentamicin S F Urine Culture, Routine Organism: Escherichia coli. : O:ESCHCO Isolated Organism: 1.1 Antibiotic Interpretation MISTY Status Urine Culture, Routine Imipenem S F Urine Culture, Routine Organism: Escherichia coli. : O:ESCHCO Isolated Organism: 1.1 Antibiotic Interpretation MISTY Status Urine Culture, Routine Levofloxacin S F Urine Culture, Routine Organism: Escherichia coli. : O:ESCHCO Isolated Organism: 1.1 Antibiotic Interpretation MISTY Status Urine Culture, Routine Meropenem S F Urine Culture, Routine Organism: Escherichia coli. : O:ESCHCO Isolated Organism: 1.1 Antibiotic Interpretation MISTY Status Urine Culture, Routine Nitrofurantoin S F Urine Culture, Routine Organism: Escherichia coli. : O:ESCHCO Isolated Organism: 1.1 Antibiotic Interpretation MISTY Status Urine Culture, Routine Tetracycline S F Urine Culture, Routine Organism: Escherichia coli. : O:ESCHCO Isolated Organism: 1.1 Antibiotic Interpretation MISTY Status Urine Culture, Routine Tobramycin S F Urine Culture, Routine Organism: Escherichia coli. : O:ESCHCO Isolated Organism: 1.1 Antibiotic Interpretation MISTY Status Urine Culture, Routine Trimethoprim/Sulf amethoxa zole S F Urine Culture, Routine Organism: Escherichia coli. : O:ESCHCO Isolated Organism: 1.1 Antibiotic Interpretation MISTY Status Urine Culture, Routine Piperacillin/Tazo bactam S F Urine Culture, Routine Organism: Escherichia coli. : O:ESCHCO Isolated Organism: 1.1 Antibiotic Interpretation MISTY Status Performing Lab: see note LC - [facility] LB SEE REPORT - Slipcover Cutter Id information not found for OBX-specific mushroom spawn maker legend ITP Reviewed date:01/08/2025 10:16:56 AM Interpretation: Performing Lab: Notes/Report: Source Facility: [place] [address] Cardiac Rehab Report Signed Patient: JAVIER LINK MR#: [id number] : 1970 Acct:[id number] Age/Sex: 54 / F ADM Date: 01/03/25 Loc: CR Attending Dr: DEENA BENTON Ordering Physician: DEENA BENTON Date of Service: 01/03/25 Procedure(s): [facility] Accession Number(s): [id number] cc: [facility] Test Date: 2025-01-03 Pat Name: JAVIER LINK Department: Room: - 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 Order Number: [id number] Deanna MD: Juan Abreu Interpretive Statements Patient has successfully completed the outlined treatment plan. Excellent that she stated she will continue with phase 3. Electronically Signed On 01-08-2025 9:11:21 EDT by Juan Abreu Dictated By: Juan Abreu D.O. 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 Order Number: [id number] Reading MD: Juan Abreu Interpretive Statements Patient has successf ully completed the outlined treatment plan. Excellent that she stated she will continue with phase 3. Electronically Sayra d On 01-08-2025 9:11:21 EDT by Juan Abreu Dictated By: Osiris Abreu D.O. Signed By: 01/08/25 0911 01/08/25910 DD/ 1011 TD/TT: Cold Saw Operator: HARISH Reviewed date:01/07/2025 09:32:30 AM Interpretation: Performing Lab: Notes/Report: Source Facility: [place] [address] [place] [address] Cardiac Rehab Report Signed Patient: JAVIER LINK MR#: [id number] : 1970 Acct:[id number] Age/Sex: 54 / F ADM Date: 01/01/25 Loc: CR Attending Dr: DEENA BENTON Ordering Physician: Juan Abreu D.O. 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 The patient is encouraged to continue participating in cardiac rehabilitation. Electronically Signed On 01-01-2025 18:36:58 EDT by Juan Abreu Dictated By: Juan Abreu D.O. Signed By: 01/01/25183601/01/251836 DD/ 1030 TD/TT: Cold Saw Operator: [place] [address] Cardiac Rehab Report Signed Patient: LIN LINK MR#: [id number] : 1970 Acct:[id number] Age/Sex: 54 / F ADM Date: 01/01/25 Loc: CR Attending Dr: DEENA BENTON Ordering Physician: Juan Abreu D.O. 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 The patient is encouraged to continue participating in car diac rehabilitation. Electronically Sayra d On 01-01-2025 18:36:58 EDT by Juan Abreu Dictated By: Osiris Abreu D.O. Signed By: 01/01/25183601/01/251836 DD/ 1030 TD/TT: Cold Saw Operator: HARISH Reviewed date:12/04/2024 12:02:42 PM Interpretation: Performing Lab: Notes/Report: Source Facility: [place] [address] [place] [address] Cardiac Rehab Report Signed Patient: JAVIER LINK MR#: [id number] : 1970 Acct:[id number] Age/Sex: 54 / F ADM Date: 12/04/24 Loc: CR Attending Dr: DEENA BENTON Ordering Physician: Juan Abreu D.O. 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 Electronically Signed On 12-04-2024 11:19:05 EDT by Juan Abreu Dictated By: Juan Abreu D.O. Signed By: 12/04/24 1119 12/04/24 1119 DD/ 1423 TD/TT: Cold Saw Operator: [place] [address] Cardiac Rehab Report Signed Patient: LIN LINK MR#: [id number] : 1970 Acct:[id number] Age/Sex: 54 / F ADM Date: 12/04/24 Loc: CR Attending Dr: DEENA BENTON Ordering Physician: Juan Abreu D.O. 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 Electronically Sayra d On 12-04-2024 11:19:05 EDT by Juan Abreu Dictated By: Osiris Abreu D.O. Signed By: 12/04/24 1119 12/04/24 1119 DD/ 1423 TD/TT: Cold Saw Operator: PROF MALINDA Wheeler ([facility]) Reviewed date:10/28/2024 01:15:43 PM Interpretation: Performing Lab: Notes/Report: [facility] , Sodium 133 136-145 mmol/L Potassium 4.1 3.5-5.1 mmol/L Chloride 98 98-107 mmol/L Carbon Dioxide 28.3 21.0-32.0 mmol/L Anion Gap 10.8 Glucose 97 74-106 mg/dL Blood Urea Nitrogen 10.0 7.0-18.0 mg/dL Creatinine 1.18 0.55-1.02 mg/dL Estimated GFR ( Renea 58 >=60 mL/min/1.73m 2 Estimated GFR (Non- Maria De Jesus 48 >=60 mL/min/1.73m 2 BUN Creatinine Ratio 8.5 Calcium 9.1 8.5-10.1 mg/dL Performing Lab: see note ML - [facility] LB CBC AUTO DIFF Reviewed date:10/28/2024 04:16:12 PM Interpretation: Performing Lab: Notes/Report: [facility] , White Blood Count 9.0 4.0-11.0 10 3/uL Red Blood Count 3.99 4.20-5.40 10 6/uL Hemoglobin 13.0 12.0-16.0 g/dL Hematocrit 38.1 36.0-48.0 % Mean Corpuscular Volume 95.5 81.0-99.0 fL Mean Corpuscular Hemoglobin 32.6 26.7-34.0 pg Mean Corpuscular HGB Conc 34.1 29.9-35.2 g/dL Red Cell Distribution Width 12.6 11.0-15.0 % Platelet Count 189 150-450 10 3/uL Mean Platelet Volume 10.3 9.5-13.5 fL Neutrophils Percent Auto 58.4 43.0-75.0 % Lymphocytes Percent Auto 32.6 20.5-60.0 % Monocytes Percent Auto 6.8 1.7-12.0 % Eosinophils Percent Auto 1.7 0.9-7.0 % Basophils Percent Auto 0.4 0.2-2.0 % Immature Granulocytes Pct Auto 0.1 0.0-0.5 % Neutrophils Absolute Auto 5.2 1.4-6.5 10 3/uL Lymphocytes Absolute Auto 2.9 1.2-3.8 10 3/uL Monocytes Absolute Auto 0.6 0.3-0.8 10 3/uL Eosinophils Absolute Auto 0.2 0.0-0.7 10 3/uL Basophils Absolute Auto 0.0 0.0-0.1 10 3/uL Immature Granulocytes Abs Auto 0.01 0.00-0.03 10 3/uL Performing Lab: see note ML - [facility] LB ITP Reviewed date:10/08/2024 01:39:51 PM Interpretation: Performing Lab: Notes/Report: Source Facility: [place] [address] [place] [address] Cardiac Rehab Report Signed Patient: JAVIER LINK MR#: [id number] : 1970 Acct:[id number] Age/Sex: 54 / F ADM Date: 10/07/24 Loc: CR Attending Dr: DEENA BENTON Ordering Physician: Pranav De Santiago D.O. 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 Signed By: 10/07/24202910/07/242029 DD/ 22 TD/TT: Cold Saw Operator: [place] [address] Cardiac Rehab Report Signed Patient: LIN LINK MR#: [id number] : 1970 Acct:[id number] Age/Sex: 54 / F ADM Date: 10/07/24 Loc: CR Attending Dr: DEENA BENTON Ordering Physician: Pranav De Santiago D.O. 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 Signed By: 10/07/24202910/07/242029 DD/ 22 TD/TT: Cold Saw Operator: CBC AUTO DIFF Reviewed date:09/26/2024 02:27:41 PM Interpretation: Performing Lab: Notes/Report: [facility] , White Blood Count 7.7 4.0-11.0 10 3/uL Red Blood Count 4.19 4.20-5.40 10 6/uL Hemoglobin 13.5 12.0-16.0 g/dL Hematocrit 39.4 36.0-48.0 % Mean Corpuscular Volume 94.0 81.0-99.0 fL Mean Corpuscular Hemoglobin 32.2 26.7-34.0 pg Mean Corpuscular HGB Conc 34.3 29.9-35.2 g/dL Red Cell Distribution Width 12.4 11.0-15.0 % Platelet Count 168 150-450 10 3/uL Mean Platelet Volume 10.8 9.5-13.5 fL Neutrophils Percent Auto 62.3 43.0-75.0 % Lymphocytes Percent Auto 28.0 20.5-60.0 % Monocytes Percent Auto 7.5 1.7-12.0 % Eosinophils Percent Auto 1.4 0.9-7.0 % Basophils Percent Auto 0.7 0.2-2.0 % Immature Granulocytes Pct Auto 0.1 0.0-0.5 % Neutrophils Absolute Auto 4.8 1.4-6.5 10 3/uL Lymphocytes Absolute Auto 2.2 1.2-3.8 10 3/uL Monocytes Absolute Auto 0.6 0.3-0.8 10 3/uL Eosinophils Absolute Auto 0.1 0.0-0.7 10 3/uL Basophils Absolute Auto 0.1 0.0-0.1 10 3/uL Immature Granulocytes Abs Auto 0.01 0.00-0.03 10 3/uL Performing Lab: see note ML - [facility] LB ITP Reviewed date:09/10/2024 11:01:25 AM Interpretation: Performing Lab: Notes/Report: Source Facility: [place] [address] Cardiac Rehab Report Signed Patient: JAVIER LINK MR#: [id number] : 1970 Acct:[id number] Age/Sex: 54 / F ADM Date: 09/09/24 Loc: CR Attending Dr: DEENA BENTON Ordering Physician: Pranav De Santiago D.O. 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 Signed By: 09/09/24202409/09/242024 DD/ 1344 TD/TT: Cold Saw Operator: [place] [address] Cardiac Rehab Report Signed Patient: LIN LINK MR#: [id number] : 1970 Acct:[id number] Age/Sex: 54 / F ADM Date: 09/09/24 Loc: CR Attending Dr: DEENA BENTON Ordering Physician: Pranav De Santiago D.O. 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 Signed By: 09/09/24202409/09/242024 DD/ 43 TD/TT: Cold Saw Operator: ANDREA henderson/ edyta Reviewed date:08/05/2024 12:41:08 PM Interpretation: Performing Lab: Notes/Report: Source Facility: [place] [address] Cardiology Report Signed Patient: JAVIER LINK MR#: [id number] : 1970 Acct:[id number] Age/Sex: 54 / F ADM Date: 08/02/24 Loc: CARD Attending Dr: DEENA BENTON Ordering Physician: DEENA BENTON Date of Service: 08/02/24 Procedure(s): ANDREA echo w/ con Accession Number(s): [id number] cc: SAMIA KELLOGG GEORGE Patient Name: JAVIER LINK MR#: [id number] : 1970 Exam Date: 08/02/2024 Ordering Doctor: DR DENEA BENTON M.D. ECHOCARDIOGRAM REPORT PROCEDURE: ANDREA ECHO W/ CON INDICATIONS: Left ventricular thrombus, AICD, hypertension COMPARISON: None. DESCRIPTION: COMPLETE ECHOCARDIOGRAM Real-time transthoracic echocardiography with 2D, M-mode, spectral and color flow Doppler performed. QUALITY: Technical quality was good. Lumason contrast was administered to visualize left ventricle for possible thrombus. LEFT VENTRICLE: Normal chamber size. Normal left ventricular wall thickness.No ventricular thrombosis is seen. LV EF: Severely reduced left ventricular ejection fraction, 25%, apical septal, apical anterior, apical inferior, and apical lateral segments and apex are akinetic. DIASTOLIC: Grade I diastolic dysfunction ATRIAL SEPTUM: Visually appears intact. LEFT ATRIUM: Normal chamber size. RIGHT ATRIUM: Normal chamber size. RIGHT VENTRICLE: Normal chamber size.Systolic function appears reduced. Pacer wire present right atrium and right ventricle. TRICUSPID VALVE: Normal mobility and thickness. No stenosis with trivial regurgitation. No evidence of pulmonary hypertension.RVSP 19 mmHg MITRAL VALVE: Normal mobility and thickness. No evidence of mitral valve stenosis. There is no mitral annular calcification. Trivial mitral regurgitation. AORTIC VALVE: Normal trileaflet appearance. Mildly calcified aortic valve. Normal leaflet mobility. No aortic stenosis. Trivial aortic regurgitation. AORTIC ROOT: Normal diameter and appearance. PULMONIC VALVE: Not well visualized. PERICARDIUM: No evidence of pericardial effusion. IVC: Within normal limits. PLEURA: CONCLUSION: Severely reduced left ventricular systolic function with akinetic apex and apical segments of all estrada, ejection fraction 25% No left ventricle thrombus Mildly reduced right ventricular systolic function No pulmonary hypertension Pacemaker wires in the right cardiac chambers Trivial aortic insufficiency Adult Echocardiography Procedure Report Left Ventricle LVEDD (3.7 - 5.6 cm): 4.44 cm LVESD (2.2 - 4.0 cm): 3.67 cm LVIVS thickness (0.6 - 1.2 cm): 0.58 cm LVPW thickness (0.5 - 1.0 cm): 0.74 cm e': 0.09 m/s E - e': 6.33 LVOT Max Gradient: 2.11 mm[Hg] LVOT Area (cm2): 0.73 m/s Peak Velocity (LVOT): 0.73 m/s Mean Velocity (LVOT): 0.49 m/s LVOT Diameter 1.81 cm Left Ventricular Ejection Fraction: Left Atrium LA Volume Index (2D A2C): 33.75 ml/m2 Left Atrium Systolic Dimension: 3.14 cm Mitral Valve MV E to A Ratio: 0.74 MV Max Gradient: MV Mean Gradient: Mitral Valve A-Wave Peak Velocity: 0.77 m/s Mitral Valve E-Wave Peak Velocity: 0.57 m/s Cardiovascular Orifice Area: Right Ventricle RV Internal Diastolic Dimension: Aorta AO Root Diam: 2.68 cm Ascending Ao Diam: Aortic Valve AoV Area (Peak Mariano): 0.98 cm2, 0.98 cm2 AoV Area (VTI): 0.97 cm2, 0.97 cm2 Deceleration Gratiot: Pressure Half-Time: Peak Velocity(Antegrade Flow): 1.89 m/s Peak Gradient(Antegrade Flow): 14.35 mm[Hg] Mean Velocity(Antegrade Flow): 1.32 m/s Mean Gradient(Antegrade Flow): 8.00 mm[Hg] Velocity Time Integral: 37.51 cm Tricuspid Valve Peak Velocity (Regurgitant Flow): 2.00 m/s Peak Velocity: Pulmonic Valve Mean Gradient: Mean Velocity: Peak Velocity: 0.57 m/s Peak Gradient: 1.30 mm[Hg] Right Atrium Right Atrium Systolic Pressure: 23.27 ml, 23.27 ml Dictated by: Flaco Jenkins MD on 08/02/2024 at 18:54 Approved by: Flaco Jenkins MD on 08/02/2024 at 19:05 Dictated By: Flaco Jenkins M.D. Signed By: 08/02/241905 DD/ 04 TD/TT: Cold Saw Operator: [place] [address] Cardiology Report Signed Patient: LIN LINK MR#: [id number] : 1970 Acct:[id number] Age/Sex: 54 / F ADM Date: 08/02/24 Loc: CARD Attending Dr: DEENA BENTON Ordering Physician: DEENA BENTON Date of Service: 08/02/24 Procedure(s): CA ech o w/ con Accession Number(s): [id number] cc: SAMIA KELLOGG ; DEENA BENTON Patient Name: JAVIER LINK MR#: [id number] : 1970 Exam Date: 08/02/2024 Ordering Doctor: DR DEENA BENTON M.D. ECHOCARDIOGRAM REPORT PROCEDURE: CA ECHO W/ CON INDICATIONS: Left ventricular thrombus, AICD, hypertension COMPARISON: None. DESCRIPTION: COMPLET E ECHOCARDIOGRAM Real-time transthoracic echocardiography wit h 2D, M-mode, spectral and color flow Doppler performed. QUALITY: Technical quality was good. Lumason contrast was administered to visualize left ventr icle for possible thrombus. LEFT VENTRICLE: Norm al chamber size. Normal left ventricular wall thickness.No ventric ular thrombosis is seen. LV EF: Severely redu nixon left ventricular ejection fraction, 25%, apical septal, apical anter ior, apical inferior, and apical lateral segments and apex are akinetic. DIASTOLIC: Grade I diastolic dysfunction ATRIAL SEPTUM: Visua lly appears intact. LEFT ATRIUM: Normal chamber size. RIGHT ATRIUM: Normal chamber size. RIGHT VENTRICLE: Nor mal chamber size.Systolic function appears reduced. Pacer wire present r ight atrium and right ventricle. TRICUSPID VALVE: Nor mal mobility and thickness. No stenosis with trivial regurgitation. No evidence of pulmonary hypertension.RVSP 19 mmHg MITRAL VALVE: Normal mobility and thickness. No evidence of mitral valve stenosis. There is n o mitral annular calcification. Trivial mitral regurgitation. AORTIC VALVE: Normal trileaflet appearance. Mildly calcified aortic valve. Normal leaflet mobil ity. No aortic stenosis. Trivial aortic regurgitation. AORTIC ROOT: Normal diameter and appearance. PULMONIC VALVE: Not well visualized. PERICARDIUM: No evid ence of pericardial effusion. IVC: Within normal limits. PLEURA: CONCLUSION: Severely reduced lef t ventricular systolic function with akinetic apex and apical segments of a ll estrada, ejection fraction 25% No left ventricle thrombus Mildly reduced right ventricular systolic function No pulmonary hypertension Pacemaker wires in t he right cardiac chambers Trivial aortic insufficiency Adult Echocardiograp hy Procedure Report Left Ventricle LVEDD (3.7 - 5.6 cm) : 4.44 cm LVESD (2.2 - 4.0 cm) : 3.67 cm LVIVS thickness (0.6 - 1.2 cm): 0.58 cm LVPW thickness (0.5 - 1.0 cm): 0.74 cm e': 0.09 m/s E - e': 6.33 LVOT Max Gradient: 2 .11 mm[Hg] LVOT Area (cm2): 0.73 m/s Peak Velocity (LVOT) : 0.73 m/s Mean Velocity (LVOT) : 0.49 m/s LVOT Diameter 1.81 cm Left Ventricular Eje ction Fraction: Left Atrium LA Volume Index (2D A2C): 33.75 ml/m2 Left Atrium Systolic Dimension: 3.14 cm Mitral Valve MV E to A Ratio: 0.74 MV Max Gradient: MV Mean Gradient: Mitral Valve A-Wave Peak Velocity: 0.77 m/s Mitral Valve E-Wave Peak Velocity: 0.57 m/s Cardiovascular Orifi ce Area: Right Ventricle RV Internal Diastoli c Dimension: Aorta AO Root Diam: 2.68 cm Ascending Ao Diam: Aortic Valve AoV Area (Peak Mariano): 0.98 cm2, 0.98 cm2 AoV Area (VTI): 0.97 cm2, 0.97 cm2 Deceleration Gratiot: Pressure Half-Time: Peak Velocity(Antegr conrad Flow): 1.89 m/s Peak Gradient(Antegr conrad Flow): 14.35 mm[Hg] Mean Velocity(Antegr conrad Flow): 1.32 m/s Mean Gradient(Antegr conrad Flow): 8.00 mm[Hg] Velocity Time Integr al: 37.51 cm Tricuspid Valve Peak Velocity (Regurgitant Flow): 2.00 m/s Peak Velocity: Pulmonic Valve Mean Gradient: Mean Velocity: Peak Velocity: 0.57 m/s Peak Gradient: 1.30 mm[Hg] Right Atrium Right Atrium Systoli c Pressure: 23.27 ml, 23.27 ml Dictated by: Flaco Jenkins MD on 08/02/2024 at 18:54 Approved by: Flaco Jenkins MD on 08/02/2024 at 19:05 Dictated By: Flaco Jenkins M.D. Signed By: 08/02/241905 DD/ 04 TD/TT: Cold Saw Operator: US renal bladder Reviewed date:07/26/2024 12:19:12 PM Interpretation: Performing Lab: Notes/Report: Source Facility: [place] [address] Ultrasound Report Signed Patient: JAVIER LINK MR#: [id number] : 1970 Acct:[id number] Age/Sex: 54 / F ADM Date: 07/25/24 Loc: US Attending Dr: SAMIA KELLOGG Ordering Physician: SAMIA KELLOGG Date of Service: 07/25/24 Procedure(s): US renal bladder Accession Number(s): [id number] cc: SAMIA KELLOGG [place] [address] Patient Name: JAVIER LINK MRN: [id number] date: 1970 Sex: F Assigned Patient Location: US Current Patient Location: LAB Accession/Order Number: [id number] Exam Date: 07/25/2024 07:36 Report Date: 07/25/2024 11:00 At the request of: SAMIA KELLOGG Procedure: US renal bladder EXAMINATION: US renal bladder HISTORY: Recurrent UTI N39.0 COMPARISON: No relevant comparison available. TECHNIQUE: Ultrasound examination was performed of the bladder. FINDINGS: Right Kidney: Normal in size, contour and echotexture. 2 areas of anechoic echogenicity measuring up to 1.8 cm, simple cortical cyst. No solid cortical mass, hydronephrosis or obstructing nephrolithiasis. The cortex measures 1.3 cm. Height: 6.04 cm Length: 9.24 cm Width: 6.33 cm Left Kidney: Normal in size, contour and echotexture. No solid cortical mass, hydronephrosis or obstructing nephrolithiasis. The cortex measures 1.2 cm Height: 4.74 cm Length: 8.31 cm Width: 5.20 cm Urinary bladder: The wall is normal measuring 1.5 mm. Prevoid volume 108 cc.] 2 cc Ureteral jets: Visualized bilaterally US/US renal bladder IMPRESSION: No acute abnormality. Electronically authenticated by: LILIA PINA Date: 07/25/2024 11:00 Dictated By: Lilia Pina M.D. Signed By: 07/25/24 1103 DD/ 1100 TD/TT: Cold Saw Operator: [place] [address] Ultrasound Report Signed Patient: LIN LINK MR#: [id number] : 1970 Acct:[id number] Age/Sex: 54 / F ADM Date: 07/25/24 Loc: US Attending Dr: SAMIA KELLOGG Ordering Physician: SAMIA KELLOGG Date of Service: 07/25/24 Procedure(s): US catracho al bladder Accession Number(s): [id number] cc: SAMIA KELLOGG [place] [id number] Patient Name: JAVIER LINK MRN: [id number] date: 1970 Sex: F Assigned Patient Location: US Current Patient Loca tion: LAB Accession/Order Numb er: [id number] Exam Date: 07:36 Report Date: 07/25/2024 11:00 At the request of: SAMIA KELLOGG Procedure: US renal bladder EXAMINATION: US max l bladder HISTORY: Recurrent U TI N39.0 COMPARISON: No relev ant comparison available. TECHNIQUE: Ultrasoun d examination was performed of the bladder. FINDINGS: Right Kidney: Normal in size, contour and echotexture. 2 areas of anechoic echogenicity measuri ng up to 1.8 cm, simple cortical cyst. No solid cortical mass, hydronephrosis or obstructing nephrolithiasis. The cortex measures 1.3 cm. Height: 6.04 cm Tiffanie th: 9.24 cm Width: 6.33 cm Left Kidney: Normal in size, contour and echotexture. No solid cortical mass, hydronephrosis or obstructing nephrolithiasis. The cortex measures 1.2 cm Height: 4.74 cm Tiffanie th: 8.31 cm Width: 5.20 cm Urinary bladder: The wall is normal measuring 1.5 mm. Prevoid volume 108 cc.] 2 cc Ureteral jets: Visua lized bilaterally U S/US renal bladder IMPRESSION: No acute abnormality. Electronically authenticated by: LILIA PINA Date: 07/25/2024 11:00 Dictated By: Phillip Pina M.D. Signed By: 07/25/24 1103 DD/ 1100 TD/TT: Cold Saw Operator: [facility] Reviewed date:07/30/2024 08:47:20 AM Interpretation: Performing Lab: Notes/Report: [facility] , FSH 57.2 . mIU/mL Adult Female Range Follicular phase 3.5 - 12.5 Ovulation phase 4.7 - 21.5 Luteal phase 1.7 - 7.7 Postmenopausal 25.8 - 134.8 Performing Lab: see note LC - [facility] LB Progesterone Reviewed date:07/30/2024 08:47:20 AM Interpretation: Performing Lab: Notes/Report: [facility] , Progesterone 0.3 . ng/mL Follicular phase 0.1 - 0.9 Luteal phase 1.8 - 23.9 Ovulation phase 0.1 - 12.0 First trimester 11.0 - 44.3 Second trimester 25.4 - 83.3 Third trimester 58.7 - 214.0 Postmenopausal 0.0 - 0.1 Performed at: [facility] [address], [place] [id number] Hand Molder And Caster: Akira Taylor PhD, Phone: [phone] Performing Lab: see note [facility] LB PROF 14(COMP METB) Reviewed date:07/29/2024 09:34:35 AM Interpretation: Performing Lab: Notes/Report: [facility] , Sodium 136 136-145 mmol/L Potassium 4.0 3.5-5.1 mmol/L Chloride 98 98-107 mmol/L Carbon Dioxide 28.7 21.0-32.0 mmol/L Anion Gap 13.3 Glucose 80 74-106 mg/dL Blood Urea Nitrogen 7.0 7.0-18.0 mg/dL Creatinine 0.99 0.55-1.02 mg/dL Estimated GFR ( Renea >60 >=60 mL/min/1.73m 2 Estimated GFR (Non- Maria De Jesus 59 >=60 mL/min/1.73m 2 BUN Creatinine Ratio 7.1 Calcium 9.3 8.5-10.1 mg/dL Bilirubin Total 0.5 0.2-1.0 mg/dL Aspartate Amino Transferase 18 15-37 U/L Alanine Aminotransferase 24 14-59 U/L Alkaline Phosphatase 121 46-116 U/L Total Protein 7.3 6.4-8.2 g/dL Albumin Level 3.5 3.4-5.0 g/dL Globulin 3.8 Albumin Globulin Ratio 0.9 Performing Lab: see note - [facility] LB Urine Culture, Routine Reviewed date:07/22/2024 12:32:39 PM Interpretation: Performing Lab: Notes/Report: [facility] , Urine Culture, Routine See Below For Report Urine Culture, Routine Urine Culture, Routine Mixed urogenital alis Urine Culture, Routine Urine Culture, Routine Less than 10,000 colonies/mL Urine Culture, Routine Urine Culture, Routine Performed at: [facility] Urine Culture, Routine Urine Culture, Routine [address] [place] [phone] Urine Culture, Routine Urine Culture, Routine Hand Molder And Caster: Lm Taylor PhD, Phone: [phone] Urine Culture, Routine Performing Lab: see note LC - [facility] LB SEE REPORT - [employer] Cutter Id information not found for OBX-specific mushroom spawn maker legend MM tomosynthesis screening B I Reviewed date:07/16/2024 12:14:11 PM Interpretation: Performing Lab: Notes/Report: Source Facility: [place] [address] Mammography Report Signed Patient: JAVIER LINK MR#: [id number] : 1970 Acct:[id number] Age/Sex: 54 / F ADM Date: 07/15/24 Loc: MAMMO Attending Dr: SAMIA KELLOGG Ordering Physician: SAMIA KELLOGG Results: Date of Service: 07/15/24 Follow Up: Procedure(s): MM tomosynthesis screening BI Accession Number(s): [id number] cc: SAMIA KELLOGG Patient Name: JAVIER LINK MR#: [id number] : 1970 Exam Date: 07/15/2024 Ordering Doctor: SAMIA KELLOGG [facility] RADIOLOGY REPORT PROCEDURE: MM TOMOSYNTHESIS SCREENING BI COMPARISON: MM TOMOSYNTHESIS SCREENING BI, 02/15/2023. MG MAMM SCREEN 3D RAMONE CAD, 12/10/2020. MG MAMM SCREEN 3D RAMONE CAD, 11/15/2016. INDICATIONS: SCREENING Calculator Name NCI Breast Cancer Risk Assessment Tool 5 Year Breast Cancer Risk 2.00% Lifetime Breast Cancer Risk 15.30% Personal Breast Cancer No Personal Ovarian Cancer No Treatments None Family Cancers Sister with breast cancer at age 46; Sister with lung cancer at age 46; Grandfather-paternal with prostate cancer at age 80. LOCATION: [facility] BREAST COMPOSITION: The breasts are almost entirely fatty. FINDINGS: DIAGNOSTIC CATEGORY 2--BENIGN FINDING: RIGHT BREAST: No significant suspicious finding. Stable may asymmetric fibroglandular tissue. No significant change has occurred. LEFT BREAST: No significant suspicious finding. No significant change has occurred. RECOMMENDATIONS: ROUTINE MAMMOGRAM AND CLINICAL EVALUATION IN 12 MONTHS. PLEASE NOTE: A NORMAL MAMMOGRAM DOES NOT EXCLUDE THE POSSIBILITY OF BREAST CANCER. A CLINICALLY SUSPICIOUS PALPABLE LUMP SHOULD BE BIOPSIED. Dictated by: Antonio Shaffer M.D. on 07/15/2024 at 16:02 Approved by: Antonio Shaffer M.D. on 07/15/2024 at 16:04 Dictated By: Antonio Shaffer M.D. Signed By: 07/15/24 1605 DD/ 03 TD/TT: Cold Saw Operator: [place] [address] Mammography Report Signed Patient: LIN LINK MR#: [id number] : 1970 Acct:[id number] Age/Sex: 54 / F ADM Date: 07/15/24 Loc: MAMMO Attending Dr: SAMIA KELLOGG Ordering Physician: SAMIA KELLOGG Results: Date of Service: 10/07 Follow Up: Procedure(s): MM tomosynthesis screening BI Accession Number(s): [id number] cc: SAMIA KELLOGG Patient Name: JAVIER LINK MR#: [id number] : 1970 Exam Date: 07/15/2024 Ordering Doctor: MATT KELLOGG [facility] RADIOLOGY REPORT PROCEDURE: MM TOMOSYNTHESIS SCREENING BI COMPARISON: MM TOMOSYNTHESIS SCREENING BI, 02/15/2023. MG MAMM SCREEN 3D RAMONE CAD, 12/10/2020. MG MAMM SCREEN 3D RAMONE CAD, 11/15/2016. INDICATIONS: SCREENING Calculator Name NCI Breast Cancer Risk Assessment Tool 5 Year Breast Cancer Risk 2.00% Lifetime Breast Canc er Risk 15.30% Personal Breast Cancer No Personal Ovarian Can cer No Treatments None Family Cancers Siste r with breast cancer at age 46; Sister with lung cancer at age 46; Grandfather-paternal with prostate cancer at age 80. LOCATION: [facility] BREAST COMPOSITION: The breasts are almost entirely fatty. FINDINGS: DIAGNOSTIC CATEGORY 2--BENIGN FINDING: RIGHT BREAST: No significant suspicious finding. Stable may asymmetric fibroglandular tissu e. No significant change has occurred. LEFT BREAST: No significant suspicious finding. No significant change has occurred. RECOMMENDATIONS: ROUTINE MAMMOGRAM AN D CLINICAL EVALUATION IN 12 MONTHS. PLEASE NOTE: A RIGOBERTO L MAMMOGRAM DOES NOT EXCLUDE THE POSSIBILITY OF BREAST CANCER. A CLINICALLY SUSPICIOUS PALPABLE LUMP SHOULD BE BIOPSIED. Dictated by: Antonio Shaffer M.D. on 07/15/2024 at 16:02 Approved by: Antonio Shaffer M.D. on 07/15/2024 at 16:04 Dictated By: Antonio Shaffer M.D. Signed By: 07/15/24 1605 DD/ 1604 TD/TT: Cold Saw Operator: [facility]CK [employer] W or MICROSCOPIC Reviewed date:06/28/2024 08:59:41 AM Interpretation: Performing Lab: Notes/Report: [facility] , Color Urine LT. YELLOW YELLOW Clarity Urine CLEAR CLEAR Specific Jackson Urine <=1.005 1.005-1.025 pH Urine 6.5 5.0-9.0 Protein Urine NEGATIVE NEG/TRACE mg/dL Glucose Urine UA 500 NEGATIVE mg/dL Bilirubin Urine NEGATIVE NEGATIVE Ketones Urine NEGATIVE NEGATIVE mg/dL Blood Urine NEGATIVE NEGATIVE Nitrite Urine NEGATIVE NEGATIVE Urobilinogen Urine 0.2 0.2-1.0 EU/dL Leukocyte Esterase Urine SMALL NEGATIVE WBC Urine 20-50 NONE SEEN #/HPF RBC Urine 0-2 0-2 #/HPF Bacteria Urine SMALL NONE SEEN #/HPF Mucus Urine NONE SEEN NONE SEEN Squamous Epithelial Cell Urine FEW NONE/RARE #/LPF Crystals Seen? None Seen None Seen #/HPF Cast Seen? NONE SEEN NONE SEEN #/LPF Performing Lab: see note ML - [facility] LB UA (CLEAN or CATCH) SITE SAFETY COORDINATOR or M ICRO IF IND. Reviewed date:06/10/2024 08:50:19 AM Interpretation: Performing Lab: Notes/Report: [facility] , Color Urine LT. YELLOW YELLOW Clarity Urine CLEAR CLEAR Specific Jackson Urine <=1.005 1.005-1.025 pH Urine 6.0 5.0-9.0 Protein Urine NEGATIVE NEG/TRACE mg/dL Glucose Urine UA 500 NEGATIVE mg/dL Bilirubin Urine NEGATIVE NEGATIVE Ketones Urine NEGATIVE NEGATIVE mg/dL Blood Urine NEGATIVE NEGATIVE Nitrite Urine NEGATIVE NEGATIVE Urobilinogen Urine 0.2 0.2-1.0 EU/dL Leukocyte Esterase Urine NEGATIVE NEGATIVE Urine Microscopic Indicated NO Performing Lab: see note ML - [facility] LB CBC AUTO DIFF Reviewed date:06/10/2024 08:50:19 AM Interpretation: Performing Lab: Notes/Report: [facility] , White Blood Count 9.9 4.0-11.0 10 3/uL Red Blood Count 4.66 4.20-5.40 10 6/uL Hemoglobin 15.0 12.0-16.0 g/dL Hematocrit 44.8 36.0-48.0 % Mean Corpuscular Volume 96.1 81.0-99.0 fL Mean Corpuscular Hemoglobin 32.2 26.7-34.0 pg Mean Corpuscular HGB Conc 33.5 29.9-35.2 g/dL Red Cell Distribution Width 12.6 11.0-15.0 % Platelet Count 199 150-450 10 3/uL Mean Platelet Volume 10.9 9.5-13.5 fL Neutrophils Percent Auto 59.9 43.0-75.0 % Lymphocytes Percent Auto 30.6 20.5-60.0 % Monocytes Percent Auto 7.1 1.7-12.0 % Eosinophils Percent Auto 1.6 0.9-7.0 % Basophils Percent Auto 0.5 0.2-2.0 % Immature Granulocytes Pct Auto 0.3 0.0-0.5 % Neutrophils Absolute Auto 6.0 1.4-6.5 10 3/uL Lymphocytes Absolute Auto 3.0 1.2-3.8 10 3/uL Monocytes Absolute Auto 0.7 0.3-0.8 10 3/uL Eosinophils Absolute Auto 0.2 0.0-0.7 10 3/uL Basophils Absolute Auto 0.1 0.0-0.1 10 3/uL Immature Granulocytes Abs Auto 0.03 0.00-0.03 10 3/uL Performing Lab: see note ML - [facility] LB Urine Culture, Routine Reviewed date:06/07/2024 04:14:51 PM Interpretation: Performing Lab: Notes/Report: [facility] , Urine Culture, Routine See Below For Report Urine Culture, Routine Organism: Gram negative gabi : O:GNR Isolated O:PSAV Isolated Organism: 1.2 Antibiotic Interpretation MISTY Status Urine Culture, Routine *ABNORMAL* Urine Culture, Routine Organism: Gram negative gabi : O:GNR Isolated O:PSAV Isolated Organism: 1.2 Antibiotic Interpretation MISTY Status Urine Culture, Routine 25,000-50,000 col candelaria forming units per mL Urine Culture, Routine Organism: Gram negative gabi : O:GNR Isolated O:PSAV Isolated Organism: 1.2 Antibiotic Interpretation MISTY Status Urine Culture, Routine Gram negative gabi Urine Culture, Routine Organism: Gram negative gabi : O:GNR Isolated O:PSAV Isolated Organism: 1.2 Antibiotic Interpretation MISTY Status Urine Culture, Routine Organism: Pseudom onas aeruginosa.. : Urine Culture, Routine Organism: Gram negative gabi : O:GNR Isolated O:PSAV Isolated Organism: 1.2 Antibiotic Interpretation MISTY Status Urine Culture, Routine *ABNORMAL* Urine Culture, Routine Organism: Gram negative gabi : O:GNR Isolated O:PSAV Isolated Organism: 1.2 Antibiotic Interpretation MISTY Status Urine Culture, Routine 25,000-50,000 col candelaria forming units per mL Urine Culture, Routine Organism: Gram negative gabi : O:GNR Isolated O:PSAV Isolated Organism: 1.2 Antibiotic Interpretation MISTY Status Urine Culture, Routine Pseudomonas aeruginosa.. Urine Culture, Routine Organism: Gram negative gabi : O:GNR Isolated O:PSAV Isolated Organism: 1.2 Antibiotic Interpretation MISTY Status Urine Culture, Routine See Below For Report Urine Culture, Routine Organism: Gram negative gabi : O:GNR Isolated O:PSAV Isolated Organism: 1.2 Antibiotic Interpretation MISTY Status Urine Culture, Routine See Below For Report Urine Culture, Routine Organism: Gram negative gabi : O:GNR Isolated O:PSAV Isolated Organism: 1.2 Antibiotic Interpretation MISTY Status Urine Culture, Routine Performed at: [facility] Urine Culture, Routine Organism: Gram negative gabi : O:GNR Isolated O:PSAV Isolated Organism: 1.2 Antibiotic Interpretation MISTY Status Urine Culture, Routine [address], [place] [id number] Urine Culture, Routine Organism: Gram negative gabi : O:GNR Isolated O:PSAV Isolated Organism: 1.2 Antibiotic Interpretation MISTY Status Urine Culture, Routine Hand Molder And Caster: Lm Taylor PhD, Phone: [phone] Urine Culture, Routine Organism: Gram negative gabi : O:GNR Isolated O:PSAV Isolated Organism: 1.2 Antibiotic Interpretation MISTY Status Urine Culture, Routine See Below For Report Urine Culture, Routine Organism: Gram negative gabi : O:GNR Isolated O:PSAV Isolated Organism: 1.2 Antibiotic Interpretation MISTY Status Urine Culture, Routine Amikacin S F Urine Culture, Routine Organism: Gram negative gabi : O:GNR Isolated O:PSAV Isolated Organism: 1.2 Antibiotic Interpretation MISTY Status Urine Culture, Routine Cefepime S F Urine Culture, Routine Organism: Gram negative gabi : O:GNR Isolated O:PSAV Isolated Organism: 1.2 Antibiotic Interpretation MISTY Status Urine Culture, Routine Ceftazidime S F Urine Culture, Routine Organism: Gram negative gabi : O:GNR Isolated O:PSAV Isolated Organism: 1.2 Antibiotic Interpretation MISTY Status Urine Culture, Routine Ciprofloxacin S F Urine Culture, Routine Organism: Gram negative gabi : O:GNR Isolated O:PSAV Isolated Organism: 1.2 Antibiotic Interpretation MISTY Status Urine Culture, Routine Gentamicin S F Urine Culture, Routine Organism: Gram negative gabi : O:GNR Isolated O:PSAV Isolated Organism: 1.2 Antibiotic Interpretation MISTY Status Urine Culture, Routine Imipenem S F Urine Culture, Routine Organism: Gram negative gabi : O:GNR Isolated O:PSAV Isolated Organism: 1.2 Antibiotic Interpretation MISTY Status Urine Culture, Routine Levofloxacin S F Urine Culture, Routine Organism: Gram negative gabi : O:GNR Isolated O:PSAV Isolated Organism: 1.2 Antibiotic Interpretation MISTY Status Urine Culture, Routine Meropenem S F Urine Culture, Routine Organism: Gram negative gabi : O:GNR Isolated O:PSAV Isolated Organism: 1.2 Antibiotic Interpretation MISTY Status Urine Culture, Routine Piperacillin S F Urine Culture, Routine Organism: Gram negative gabi : O:GNR Isolated O:PSAV Isolated Organism: 1.2 Antibiotic Interpretation MISTY Status Urine Culture, Routine Ticarcillin S F Urine Culture, Routine Organism: Gram negative gabi : O:GNR Isolated O:PSAV Isolated Organism: 1.2 Antibiotic Interpretation MISTY Status Urine Culture, Routine Tobramycin S F Urine Culture, Routine Organism: Gram negative gabi : O:GNR Isolated O:PSAV Isolated Organism: 1.2 Antibiotic Interpretation MISTY Status Performing Lab: see note LC - [facility] LB SEE REPORT - Slipcover Cutter Id information not found for OBX-specific mushroom spawn maker legend UA RANDOM W or MICROSCOPIC Reviewed date:06/07/2024 04:15:01 PM Interpretation: Performing Lab: Notes/Report: [facility] , Color Urine LT. YELLOW YELLOW Clarity Urine CLEAR CLEAR Specific Jackson Urine <=1.005 1.005-1.025 pH Urine 6.5 5.0-9.0 Protein Urine NEGATIVE NEG/TRACE mg/dL Glucose Urine UA >=1000 NEGATIVE mg/dL Bilirubin Urine NEGATIVE NEGATIVE Ketones Urine NEGATIVE NEGATIVE mg/dL Blood Urine NEGATIVE NEGATIVE Nitrite Urine NEGATIVE NEGATIVE Urobilinogen Urine 0.2 0.2-1.0 EU/dL Leukocyte Esterase Urine NEGATIVE NEGATIVE WBC Urine NONE SEEN NONE SEEN #/HPF RBC Urine NONE SEEN 0-2 #/HPF Bacteria Urine TRACE NONE SEEN #/HPF Mucus Urine NONE SEEN NONE SEEN Squamous Epithelial Cell Urine RARE NONE/RARE #/LPF Crystals Seen? None Seen None Seen #/HPF Cast Seen? NONE SEEN NONE SEEN #/LPF Urine Culture Indicated NO Performing Lab: see note ML - [facility] LB PROF 14(COMP METB) Reviewed date:05/30/2024 01:54:52 PM Interpretation: Performing Lab: Notes/Report: [facility] , Sodium 133 136-145 mmol/L Potassium 4.4 3.5-5.1 mmol/L Chloride 99 98-107 mmol/L Carbon Dioxide 24.7 21.0-32.0 mmol/L Anion Gap 13.7 Glucose 85 74-106 mg/dL Blood Urea Nitrogen 9.0 7.0-18.0 mg/dL Creatinine 1.15 0.55-1.02 mg/dL Estimated GFR ( Renea 60 >=60 mL/min/1.73m 2 Estimated GFR (Non- Maria De Jesus 49 >=60 mL/min/1.73m 2 BUN Creatinine Ratio 7.8 Calcium 9.3 8.5-10.1 mg/dL Bilirubin Total 0.6 0.2-1.0 mg/dL Aspartate Amino Transferase 20 15-37 U/L Alanine Aminotransferase 24 14-59 U/L Alkaline Phosphatase 122 46-116 U/L Total Protein 7.5 6.4-8.2 g/dL Albumin Level 3.5 3.4-5.0 g/dL Globulin 4.0 Albumin Globulin Ratio 0.9 Performing Lab: see note ML - [facility] LB Urine Culture, Routine Reviewed date:05/16/2024 02:57:51 PM Interpretation: Performing Lab: Notes/Report: [facility] , Urine Culture, Routine See Below For Report Urine Culture, Routine Organism: Gram negative gabi : O:GNR Isolated O:PSMS Isolated Organism: 1.2 Antibiotic Interpretation MISTY Status Urine Culture, Routine *ABNORMAL* Urine Culture, Routine Organism: Gram negative gabi : O:GNR Isolated O:PSMS Isolated Organism: 1.2 Antibiotic Interpretation MISTY Status Urine Culture, Routine 25,000-50,000 col candelaria forming units per mL Urine Culture, Routine Organism: Gram negative gabi : O:GNR Isolated O:PSMS Isolated Organism: 1.2 Antibiotic Interpretation MISTY Status Urine Culture, Routine Gram negative gabi Urine Culture, Routine Organism: Gram negative gabi : O:GNR Isolated O:PSMS Isolated Organism: 1.2 Antibiotic Interpretation MISTY Status Urine Culture, Routine Organism: Pseudom onas aeruginosa., : Urine Culture, Routine Organism: Gram negative gabi : O:GNR Isolated O:PSMS Isolated Organism: 1.2 Antibiotic Interpretation MISTY Status Urine Culture, Routine *ABNORMAL* Urine Culture, Routine Organism: Gram negative gabi : O:GNR Isolated O:PSMS Isolated Organism: 1.2 Antibiotic Interpretation MISTY Status Urine Culture, Routine 25,000-50,000 col candelaria forming units per mL Urine Culture, Routine Organism: Gram negative gabi : O:GNR Isolated O:PSMS Isolated Organism: 1.2 Antibiotic Interpretation MISTY Status Urine Culture, Routine Pseudomonas aeruginosa., Urine Culture, Routine Organism: Gram negative gabi : O:GNR Isolated O:PSMS Isolated Organism: 1.2 Antibiotic Interpretation MISTY Status Urine Culture, Routine See Below For Report Urine Culture, Routine Organism: Gram negative gabi : O:GNR Isolated O:PSMS Isolated Organism: 1.2 Antibiotic Interpretation MISTY Status Urine Culture, Routine See Below For Report Urine Culture, Routine Organism: Gram negative gabi : O:GNR Isolated O:PSMS Isolated Organism: 1.2 Antibiotic Interpretation MISTY Status Urine Culture, Routine [facility]rine Culture, Routine Organism: Gram negative gabi : O:GNR Isolated O:PSMS Isolated Organism: 1.2 Antibiotic Interpretation MISTY Status Urine Culture, Routine [address], [place] [id number] Urine Culture, Routine Organism: Gram negative gabi : O:GNR Isolated O:PSMS Isolated Organism: 1.2 Antibiotic Interpretation MISTY Status Urine Culture, Routine Hand Molder And Caster: Lm Taylor PhD, Phone: [phone] Urine Culture, Routine Organism: Gram negative gabi : O:GNR Isolated O:PSMS Isolated Organism: 1.2 Antibiotic Interpretation MISTY Status Urine Culture, Routine See Below For Report Urine Culture, Routine Organism: Gram negative gabi : O:GNR Isolated O:PSMS Isolated Organism: 1.2 Antibiotic Interpretation MISTY Status Urine Culture, Routine Amikacin S F Urine Culture, Routine Organism: Gram negative gabi : O:GNR Isolated O:PSMS Isolated Organism: 1.2 Antibiotic Interpretation MISTY Status Urine Culture, Routine Cefepime S F Urine Culture, Routine Organism: Gram negative gabi : O:GNR Isolated O:PSMS Isolated Organism: 1.2 Antibiotic Interpretation MISTY Status Urine Culture, Routine Ceftazidime S F Urine Culture, Routine Organism: Gram negative gabi : O:GNR Isolated O:PSMS Isolated Organism: 1.2 Antibiotic Interpretation MISTY Status Urine Culture, Routine Ciprofloxacin S F Urine Culture, Routine Organism: Gram negative gabi : O:GNR Isolated O:PSMS Isolated Organism: 1.2 Antibiotic Interpretation MISTY Status Urine Culture, Routine Gentamicin S F Urine Culture, Routine Organism: Gram negative gabi : O:GNR Isolated O:PSMS Isolated Organism: 1.2 Antibiotic Interpretation MISTY Status Urine Culture, Routine Imipenem S F Urine Culture, Routine Organism: Gram negative gabi : O:GNR Isolated O:PSMS Isolated Organism: 1.2 Antibiotic Interpretation MISTY Status Urine Culture, Routine Levofloxacin S F Urine Culture, Routine Organism: Gram negative gabi : O:GNR Isolated O:PSMS Isolated Organism: 1.2 Antibiotic Interpretation MISTY Status Urine Culture, Routine Meropenem S F Urine Culture, Routine Organism: Gram negative gabi : O:GNR Isolated O:PSMS Isolated Organism: 1.2 Antibiotic Interpretation MISTY Status Urine Culture, Routine Piperacillin S F Urine Culture, Routine Organism: Gram negative gabi : O:GNR Isolated O:PSMS Isolated Organism: 1.2 Antibiotic Interpretation MISTY Status Urine Culture, Routine Ticarcillin S F Urine Culture, Routine Organism: Gram negative gabi : O:GNR Isolated O:PSMS Isolated Organism: 1.2 Antibiotic Interpretation MISTY Status Urine Culture, Routine Tobramycin S F Urine Culture, Routine Organism: Gram negative gabi : O:GNR Isolated O:PSMS Isolated Organism: 1.2 Antibiotic Interpretation MISTY Status Performing Lab: see note LC - [facility] LB SEE REPORT - Slipcover Cutter Id information not found for OBX-specific mushroom spawn maker legend UA RANDOM W or MICROSCOPIC Reviewed date:05/14/2024 02:23:53 PM Interpretation: Performing Lab: Notes/Report: [facility] , Color Urine LT. YELLOW YELLOW Clarity Urine CLEAR CLEAR Specific Jackson Urine <=1.005 1.005-1.025 pH Urine 6.5 5.0-9.0 Protein Urine NEGATIVE NEG/TRACE mg/dL Glucose Urine UA 500 NEGATIVE mg/dL Bilirubin Urine NEGATIVE NEGATIVE Ketones Urine NEGATIVE NEGATIVE mg/dL Blood Urine NEGATIVE NEGATIVE Nitrite Urine NEGATIVE NEGATIVE Urobilinogen Urine 0.2 0.2-1.0 EU/dL Leukocyte Esterase Urine NEGATIVE NEGATIVE WBC Urine 0-2 NONE SEEN #/HPF RBC Urine 0-2 0-2 #/HPF Bacteria Urine TRACE NONE SEEN #/HPF Mucus Urine NONE SEEN NONE SEEN Squamous Epithelial Cell Urine RARE NONE/RARE #/LPF Crystals Seen? None Seen None Seen #/HPF Cast Seen? NONE SEEN NONE SEEN #/LPF Performing Lab: see note ML - [facility] LB TSH Reviewed date:05/14/2024 02:23:53 PM Interpretation: Performing Lab: Notes/Report: [facility] , Thyroid Stimulating Hormone 0.034 0.358-3.740 uIU/mL Performing Lab: see note ML - [facility] LB T4 Reviewed date:05/14/2024 02:23:53 PM Interpretation: Performing Lab: Notes/Report: [facility] , T4 Thyroxine 11.80 4.80-13.90 ug/dL Performing Lab: see note - [facility] LB PROF 14(COMP METB) Reviewed date:05/14/2024 02:23:53 PM Interpretation: Performing Lab: Notes/Report: [facility] , Sodium 133 136-145 mmol/L Potassium 4.3 3.5-5.1 mmol/L Chloride 98 98-107 mmol/L Carbon Dioxide 27.7 21.0-32.0 mmol/L Anion Gap 11.6 Glucose 81 74-106 mg/dL Blood Urea Nitrogen 8.0 7.0-18.0 mg/dL Creatinine 1.21 0.55-1.02 mg/dL Estimated GFR ( Renea 56 >=60 Estimated GFR (Non- Maria De Jesus 47 >=60 BUN Creatinine Ratio 6.6 Calcium 9.3 8.5-10.1 mg/dL Bilirubin Total 0.6 0.2-1.0 mg/dL Aspartate Amino Transferase 18 15-37 U/L Alanine Aminotransferase 27 14-59 U/L Alkaline Phosphatase 123 46-116 U/L Total Protein 7.4 6.4-8.2 g/dL Albumin Level 3.4 3.4-5.0 g/dL Globulin 4.0 Albumin Globulin Ratio 0.9 Performing Lab: see note ML - [facility] LB LIPID PROFILE Reviewed date:05/14/2024 02:23:53 PM Interpretation: Performing Lab: Notes/Report: [facility] , Triglycerides 119 <=150 mg/dL Cholesterol 114 <=200 mg/dL HDL Cholesterol 42 40-60 mg/dL > or =60 mg/dl - LOW CARDIOVASCULAR RISK <40 mg/dl - HIGH CARDIOVASCULAR RISK LDL Cholesterol Calculated 48.2 <100 mg/dl OPTIMAL 100-129 mg/dl NEAR OR ABOVE OPTIMAL 130-159 mg/dl BORDERLINE HIGH 160-189 mg/dl HIGH >190 mg/dl VERY HIGH VLDL CHOLESTEROL 23.8 Chol HDL Ratio 2.7 3.3 - 4.4 LOW RISK 4.4 - 7.1 AVERAGE RISK 7.1 - 11.0 MODERATE RISK >11.0 HIGH RISK Performing Lab: see note ML - [facility] LB FREE T3 Reviewed date:05/14/2024 02:23:53 PM Interpretation: Performing Lab: Notes/Report: [facility] , Free T3 2.13 2.18-3.98 pg/mL Performing Lab: see note ML - [facility] LB CBC AUTO DIFF Reviewed date:05/14/2024 02:23:53 PM Interpretation: Performing Lab: Notes/Report: [facility] , White Blood Count 9.3 4.0-11.0 10 3/uL Red Blood Count 4.29 4.20-5.40 10 6/uL Hemoglobin 13.8 12.0-16.0 g/dL Hematocrit 41.9 36.0-48.0 % Mean Corpuscular Volume 97.7 81.0-99.0 fL Mean Corpuscular Hemoglobin 32.2 26.7-34.0 pg Mean Corpuscular HGB Conc 32.9 29.9-35.2 g/dL Red Cell Distribution Width 13.1 11.0-15.0 % Platelet Count 384 150-450 10 3/uL Mean Platelet Volume 9.3 9.5-13.5 fL Neutrophils Percent Auto 63.1 43.0-75.0 % Lymphocytes Percent Auto 26.8 20.5-60.0 % Monocytes Percent Auto 7.9 1.7-12.0 % Eosinophils Percent Auto 1.1 0.9-7.0 % Basophils Percent Auto 0.9 0.2-2.0 % Immature Granulocytes Pct Auto 0.2 0.0-0.5 % Neutrophils Absolute Auto 5.9 1.4-6.5 10 3/uL Lymphocytes Absolute Auto 2.5 1.2-3.8 10 3/uL Monocytes Absolute Auto 0.7 0.3-0.8 10 3/uL Eosinophils Absolute Auto 0.1 0.0-0.7 10 3/uL Basophils Absolute Auto 0.1 0.0-0.1 10 3/uL Immature Granulocytes Abs Auto 0.02 0.00-0.03 10 3/uL Performing Lab: see note ML - [facility] LB BNP Reviewed date:05/07/2024 12:16:24 PM Interpretation: Performing Lab: Notes/Report: [facility] , NT Pro B Type Natriuretic Pept 1992.0 <=900.0 pg/mL [facility] BY Jody Ansari at 0909 Performing Lab: see note ML - [facility] LB TSH W/ REFLEX FT4 Reviewed date:05/06/2024 02:15:27 PM Interpretation: Performing Lab: Notes/Report: [facility] , TSH W/ REFLEX FT4 0.021 0.358-3.740 uIU/mL Performing Lab: see note - [facility] LB PROF 14(COMP METB) Reviewed date:05/06/2024 02:15:27 PM Interpretation: Performing Lab: Notes/Report: [facility] , Sodium 136 136-145 mmol/L Potassium 4.1 3.5-5.1 mmol/L Chloride 106 98-107 mmol/L Carbon Dioxide 21.6 21.0-32.0 mmol/L Anion Gap 12.5 Glucose 99 74-106 mg/dL Blood Urea Nitrogen 6.0 7.0-18.0 mg/dL Creatinine 0.93 0.55-1.02 mg/dL Estimated GFR ( Renea >60 >=60 Estimated GFR (Non- Maria De Jesus >60 >=60 BUN Creatinine Ratio 6.5 Calcium 8.3 8.5-10.1 mg/dL Bilirubin Total 0.3 0.2-1.0 mg/dL Aspartate Amino Transferase 16 15-37 U/L Alanine Aminotransferase 22 14-59 U/L Alkaline Phosphatase 91 46-116 U/L Total Protein 5.7 6.4-8.2 g/dL Albumin Level 2.3 3.4-5.0 g/dL Globulin 3.4 Albumin Globulin Ratio 0.7 Performing Lab: see note ML - [facility] LB PROF CHEM 8 (BAS METB) Reviewed date:05/06/2024 02:15:27 PM Interpretation: Performing Lab: Notes/Report: [facility] , Sodium 133 136-145 mmol/L Potassium 4.2 3.5-5.1 mmol/L Chloride 102 98-107 mmol/L Carbon Dioxide 24.9 21.0-32.0 mmol/L Anion Gap 10.3 Glucose 108 74-106 mg/dL Blood Urea Nitrogen 9.0 7.0-18.0 mg/dL Creatinine 0.97 0.55-1.02 mg/dL Estimated GFR ( Renea >60 >=60 Estimated GFR (Non- Maria De Jesus >60 >=60 BUN Creatinine Ratio 9.3 Calcium 8.4 8.5-10.1 mg/dL Performing Lab: see note ML - [facility] LB XR chest 1V Reviewed date:05/06/2024 02:15:27 PM Interpretation: Performing Lab: Notes/Report: Source Facility: [facility] [place] [address] [place] [address] XRay Report Signed Patient: JAVIER LINK MR#: [id number] : 1970 Acct:[id number] Age/Sex: 54 / F ADM Date: 05/04/24 Loc: [place] 231-[address]: Shaikh Katarzyna Leahy Ordering Physician: Shaikh Armond Colón Date of Service: 05/05/24 Procedure(s): XR chest 1V Accession Number(s): [id number] cc: SAMIA KELLOGG ; Shaikh Armond Colón [place] [address] Patient Name: JAVIER LINK MRN: [id number] date: 1970 Sex: F Assigned Patient Location: [place] Current Patient Location: [place] Accession/Order Number: [id number] Exam Date: 05/05/2024 10:25 Report Date: 05/05/2024 11:07 At the request of: SHAIKH KATARZYNA Procedure: XR chest 1V EXAM: XR chest 1V HISTORY: SOB/cough COMPARISON: None. TECHNIQUE: Chest X-ray AP, 1 view FINDINGS: Support devices: Dual lead pacer device appears appropriately positioned. Lungs/pleura: No consolidation, effusion, or pneumothorax. Heart and mediastinum: Normal contours. Bones: No acute abnormality identified. XR/XR chest 1V Impression: No radiographic evidence of acute cardiopulmonary process. Electronically authenticated by: LIZZ MORRISON Date: 05/05/2024 11:07 Dictated By: Lizz Morrison M.D. Signed By: 05/05/24 1110 DD/ 1107 TD/TT: Cold Saw Operator: [place] [address] XRay Report Signed Patient: LIN LINK MR#: [id number] : 1970 Acct:[id number] Age/Sex: 54 / F ADM Date: 05/04/24 Loc: [place] 231-[address]: Shaikh Katarzyna Leahy Ordering Physician: Shaikh Armond Colón Date of Service: 05/05/24 Procedure(s): XR chest 1V Accession Number(s): [id number] cc: SAMIA KELLOGG ; Shaikh Armond Colón The [address] [address] Patient Name: JAVIER LINK MRN: [id number] date: 1970 Sex: F Assigned Patient Location: MS Current Patient Loca tion: MS Accession/Order Numb er: [id number] Exam Date: 05/05/2024 10:25 Report Date: 05/05/2024 11:07 At the request of: SHAIKH KATARZYNA Procedure: XR chest 1V EXAM: XR chest 1V HISTORY: SOB/cough COMPARISON: None. TECHNIQUE: Chest X-r ay AP, 1 view FINDINGS: Support devices: Jack l lead pacer device appears appropriately positioned. Lungs/pleura: No consolidation, effusion, or pneumothorax. Heart and mediastinu m: Normal contours. Bones: No acute abnormality identified. X R/XR chest 1V Impression: No radiographic evid ence of acute cardiopulmonary process. Electronically authenticated by: LIZZ MORRISON Date: 05/05/2024 11:07 Dictated By: Lizz Morrison M.D. Signed By: 05/05/24 1110 DD/ 1107 TD/TT: Cold Saw Operator: CBC no Diff (Hemogram) Reviewed date:05/06/2024 02:15:27 PM Interpretation: Performing Lab: Notes/Report: [facility] , White Blood Count 7.4 4.0-11.0 10 3/uL Red Blood Count 3.76 4.20-5.40 10 6/uL Hemoglobin 12.3 12.0-16.0 g/dL Hematocrit 35.4 36.0-48.0 % Mean Corpuscular Volume 94.1 81.0-99.0 fL Mean Corpuscular Hemoglobin 32.7 26.7-34.0 pg Mean Corpuscular HGB Conc 34.7 29.9-35.2 g/dL Red Cell Distribution Width 12.4 11.0-15.0 % Platelet Count 199 150-450 10 3/uL Mean Platelet Volume 10.1 9.5-13.5 fL Performing Lab: see note ML - [facility] LB PROF CHEM 8 (BAS METB) Reviewed date:05/06/2024 02:15:27 PM Interpretation: Performing Lab: Notes/Report: [facility] , Sodium 134 136-145 mmol/L Potassium 4.1 3.5-5.1 mmol/L Chloride 102 98-107 mmol/L Carbon Dioxide 24.2 21.0-32.0 mmol/L Anion Gap 11.9 Glucose 90 74-106 mg/dL Blood Urea Nitrogen 10.0 7.0-18.0 mg/dL Creatinine 0.97 0.55-1.02 mg/dL Estimated GFR ( Renea >60 >=60 Estimated GFR (Non- Maria De Jesus >60 >=60 BUN Creatinine Ratio 10.3 Calcium 9.1 8.5-10.1 mg/dL Performing Lab: see note ML - [facility] LB Urine Culture, Routine Reviewed date:05/09/2024 02:18:45 PM Interpretation: Performing Lab: Notes/Report: [facility] , Urine Culture, Routine See Below For Report Urine Culture, Routine Organism: Gram negative gabi : O:GNR Isolated O:PSMS Isolated Organism: 1.2 Antibiotic Interpretation MISTY Status Urine Culture, Routine *ABNORMAL* Urine Culture, Routine Organism: Gram negative gabi : O:GNR Isolated O:PSMS Isolated Organism: 1.2 Antibiotic Interpretation MISTY Status Urine Culture, Routine 10,000-25,000 col candelaria forming units per mL Urine Culture, Routine Organism: Gram negative gabi : O:GNR Isolated O:PSMS Isolated Organism: 1.2 Antibiotic Interpretation MISTY Status Urine Culture, Routine Gram negative agbi Urine Culture, Routine Organism: Gram negative gabi : O:GNR Isolated O:PSMS Isolated Organism: 1.2 Antibiotic Interpretation MISTY Status Urine Culture, Routine Organism: Pseudom onas aeruginosa., : Urine Culture, Routine Organism: Gram negative gabi : O:GNR Isolated O:PSMS Isolated Organism: 1.2 Antibiotic Interpretation MISTY Status Urine Culture, Routine *ABNORMAL* Urine Culture, Routine Organism: Gram negative gabi : O:GNR Isolated O:PSMS Isolated Organism: 1.2 Antibiotic Interpretation MISTY Status Urine Culture, Routine 10,000-25,000 col candelaria forming units per mL Urine Culture, Routine Organism: Gram negative gabi : O:GNR Isolated O:PSMS Isolated Organism: 1.2 Antibiotic Interpretation MISTY Status Urine Culture, Routine Pseudomonas aeruginosa., Urine Culture, Routine Organism: Gram negative gabi : O:GNR Isolated O:PSMS Isolated Organism: 1.2 Antibiotic Interpretation MISTY Status Urine Culture, Routine See Below For Report Urine Culture, Routine Organism: Gram negative gabi : O:GNR Isolated O:PSMS Isolated Organism: 1.2 Antibiotic Interpretation MISTY Status Urine Culture, Routine See Below For Report Urine Culture, Routine Organism: Gram negative gabi : O:GNR Isolated O:PSMS Isolated Organism: 1.2 Antibiotic Interpretation MISTY Status Urine Culture, Routine [facility] Urine Culture, Routine Organism: Gram negative gabi : O:GNR Isolated O:PSMS Isolated Organism: 1.2 Antibiotic Interpretation MISTY Status Urine Culture, Routine [address], [place] [id number] Urine Culture, Routine Organism: Gram negative gabi : O:GNR Isolated O:PSMS Isolated Organism: 1.2 Antibiotic Interpretation MISTY Status Urine Culture, Routine Hand Molder And Caster: Lm Taylor PhD, Phone: [phone] Urine Culture, Routine Organism: Gram negative gabi : O:GNR Isolated O:PSMS Isolated Organism: 1.2 Antibiotic Interpretation MISTY Status Urine Culture, Routine See Below For Report Urine Culture, Routine Organism: Gram negative gabi : O:GNR Isolated O:PSMS Isolated Organism: 1.2 Antibiotic Interpretation MISTY Status Urine Culture, Routine Amikacin S F Urine Culture, Routine Organism: Gram negative gabi : O:GNR Isolated O:PSMS Isolated Organism: 1.2 Antibiotic Interpretation MISTY Status Urine Culture, Routine Cefepime S F Urine Culture, Routine Organism: Gram negative gabi : O:GNR Isolated O:PSMS Isolated Organism: 1.2 Antibiotic Interpretation MISTY Status Urine Culture, Routine Ceftazidime S F Urine Culture, Routine Organism: Gram negative gabi : O:GNR Isolated O:PSMS Isolated Organism: 1.2 Antibiotic Interpretation MISTY Status Urine Culture, Routine Ciprofloxacin S F Urine Culture, Routine Organism: Gram negative gabi : O:GNR Isolated O:PSMS Isolated Organism: 1.2 Antibiotic Interpretation MISTY Status Urine Culture, Routine Gentamicin S F Urine Culture, Routine Organism: Gram negative gabi : O:GNR Isolated O:PSMS Isolated Organism: 1.2 Antibiotic Interpretation MISTY Status Urine Culture, Routine Imipenem S F Urine Culture, Routine Organism: Gram negative gabi : O:GNR Isolated O:PSMS Isolated Organism: 1.2 Antibiotic Interpretation MISTY Status Urine Culture, Routine Levofloxacin S F Urine Culture, Routine Organism: Gram negative gabi : O:GNR Isolated O:PSMS Isolated Organism: 1.2 Antibiotic Interpretation MISTY Status Urine Culture, Routine Meropenem S F Urine Culture, Routine Organism: Gram negative gabi : O:GNR Isolated O:PSMS Isolated Organism: 1.2 Antibiotic Interpretation MISTY Status Urine Culture, Routine Piperacillin S F Urine Culture, Routine Organism: Gram negative gabi : O:GNR Isolated O:PSMS Isolated Organism: 1.2 Antibiotic Interpretation MISTY Status Urine Culture, Routine Ticarcillin S F Urine Culture, Routine Organism: Gram negative gabi : O:GNR Isolated O:PSMS Isolated Organism: 1.2 Antibiotic Interpretation MISTY Status Urine Culture, Routine Tobramycin S F Urine Culture, Routine Organism: Gram negative gabi : O:GNR Isolated O:PSMS Isolated Organism: 1.2 Antibiotic Interpretation MISTY Status Performing Lab: see note - [facility] LB SEE REPORT - [employer]cover Cutter Id information not found for OBX-specific mushroom spawn maker legend Osmolality, Urine Reviewed date:05/09/2024 02:18:45 PM Interpretation: Performing Lab: Notes/Report: Comment Please add to sample in lab [facility] , Osmolality, Urine 111 . mOsmol/kg 24 hr : 300 - 900 Random: 50 - 1400 After 12hr fluid restriction: >850 Performed at: [address] [id number] Hand Molder And Caster: Rony Rose MD, Phone: [phone] Performing Lab: see note - [facility] LB Sodium Urine Random Reviewed date:05/06/2024 02:15:27 PM Interpretation: Performing Lab: Notes/Report: Comment Please add to sample in lab [facility] , Sodium Urine Random 7 30-90 mmol/L Performing Lab: see note - [facility] LB UA RANDOM W or MICROSCOPIC Reviewed date:05/06/2024 02:15:27 PM Interpretation: Performing Lab: Notes/Report: [facility] , Color Urine LT. YELLOW YELLOW Clarity Urine CLEAR CLEAR Specific Jackson Urine <=1.005 1.005-1.025 pH Urine 6.0 5.0-9.0 Protein Urine NEGATIVE NEG/TRACE mg/dL Glucose Urine UA 500 NEGATIVE mg/dL Bilirubin Urine NEGATIVE NEGATIVE Ketones Urine NEGATIVE NEGATIVE mg/dL Blood Urine NEGATIVE NEGATIVE Nitrite Urine NEGATIVE NEGATIVE Urobilinogen Urine 0.2 0.2-1.0 EU/dL Leukocyte Esterase Urine TRACE NEGATIVE WBC Urine 2-5 NONE SEEN #/HPF RBC Urine 0-2 0-2 #/HPF Bacteria Urine MODERATE NONE SEEN #/HPF Mucus Urine NONE SEEN NONE SEEN Squamous Epithelial Cell Urine FEW NONE/RARE #/LPF Crystals Seen? None Seen None Seen #/HPF Cast Seen? NONE SEEN NONE SEEN #/LPF Urine Culture Indicated YES Performing Lab: see note - [facility] LB PROF CHEM 8 (BAS METB) Reviewed date:05/06/2024 02:15:27 PM Interpretation: Performing Lab: Notes/Report: [facility] , Sodium 123 136-145 mmol/L RESULTS BAER D TO DR. OVIEDO @BY Veronica Ferreira at 1730 Potassium 4.0 3.5-5.1 mmol/L Chloride 90 98-107 mmol/L Carbon Dioxide 26.1 21.0-32.0 mmol/L Anion Gap 10.9 Glucose 83 74-106 mg/dL Blood Urea Nitrogen 15.0 7.0-18.0 mg/dL Creatinine 1.41 0.55-1.02 mg/dL Estimated GFR ( Renea 47 >=60 Estimated GFR (Non- Maria De Jesus 39 >=60 BUN Creatinine Ratio 10.6 Calcium 8.6 8.5-10.1 mg/dL Performing Lab: see note ML - [facility] LB BNP Reviewed date:05/06/2024 02:15:27 PM Interpretation: Performing Lab: Notes/Report: Comment Please add to blood in lab [facility] , NT Pro B Type Natriuretic Pept 1451.0 <=900.0 pg/mL RESULTS CALLED TO ERICKA WAHL RN @BY Mayelin Goodwin at 2009 Performing Lab: see note ML - [facility] LB TSH Reviewed date:05/03/2024 01:16:37 PM Interpretation: Performing Lab: Notes/Report: [facility] , Thyroid Stimulating Hormone <0.007 0.358-3.740 uIU/mL Performing Lab: see note ML - [facility] LB T4 Reviewed date:05/03/2024 01:16:37 PM Interpretation: Performing Lab: Notes/Report: [facility] , T4 Thyroxine 12.10 4.80-13.90 ug/dL Performing Lab: see note ML - [facility] LB PROF 14(COMP METB) Reviewed date:05/03/2024 01:16:37 PM Interpretation: Performing Lab: Notes/Report: [facility] , Sodium 128 136-145 mmol/L Potassium 4.2 3.5-5.1 mmol/L Chloride 93 98-107 mmol/L Carbon Dioxide 27.3 21.0-32.0 mmol/L Anion Gap 11.9 Glucose 77 74-106 mg/dL Blood Urea Nitrogen 15.0 7.0-18.0 mg/dL Creatinine 1.16 0.55-1.02 mg/dL Estimated GFR ( Renea 59 >=60 Estimated GFR (Non- Maria De Jesus 49 >=60 BUN Creatinine Ratio 12.9 Calcium 9.3 8.5-10.1 mg/dL Bilirubin Total 0.6 0.2-1.0 mg/dL Aspartate Amino Transferase 26 15-37 U/L Alanine Aminotransferase 31 14-59 U/L Alkaline Phosphatase 104 46-116 U/L Total Protein 7.3 6.4-8.2 g/dL Albumin Level 2.9 3.4-5.0 g/dL Globulin 4.4 Albumin Globulin Ratio 0.7 Performing Lab: see note ML - [facility] LIPID PROFILE Reviewed date:05/03/2024 01:16:37 PM Interpretation: Performing Lab: Notes/Report: [facility] , Triglycerides 128 <=150 mg/dL Cholesterol 90 <=200 mg/dL HDL Cholesterol 18 40-60 mg/dL > or =60 mg/dl - LOW CARDIOVASCULAR RISK <40 mg/dl - HIGH CARDIOVASCULAR RISK LDL Cholesterol Calculated 47.0 <100 mg/dl OPTIMAL 100-129 mg/dl NEAR OR ABOVE OPTIMAL 130-159 mg/dl BORDERLINE HIGH 160-189 mg/dl HIGH >190 mg/dl VERY HIGH VLDL CHOLESTEROL 25.6 Chol HDL Ratio 5.0 3.3 - 4.4 LOW RISK 4.4 - 7.1 AVERAGE RISK 7.1 - 11.0 MODERATE RISK >11.0 HIGH RISK Performing Lab: see note ML - [facility] LB INSULIN Reviewed date:05/06/2024 02:15:27 PM Interpretation: Performing Lab: Notes/Report: [facility] , Insulin 9.7 2.6-24.9 uIU/mL Performed at: - [facility] [address] [id number] [employer]: Akira Taylor PhD, Phone: [phone] Performing Lab: see note - [facility] LB GLYCOHEMOGLOBIN A1C Reviewed date:05/03/2024 01:16:37 PM Interpretation: Performing Lab: Notes/Report: [facility] , Glycohemoglobin A1C 5.1 4.5-6.2 % ADA RECOMMENDED LIMIT 4.0 - 6.0 ADA THERAPEUTIC TARGET < 7.0 ACTION SUGGESTED > 7.0 Estimated Average Glucose 100 Performing Lab: see note ML - [facility] LB FREE T3 Reviewed date:05/03/2024 01:16:37 PM Interpretation: Performing Lab: Notes/Report: [facility] , Free T3 1.52 2.18-3.98 pg/mL Performing Lab: see note - [facility] LB CBC AUTO DIFF Reviewed date:05/03/2024 01:16:37 PM Interpretation: Performing Lab: Notes/Report: [facility] , White Blood Count 10.5 4.0-11.0 10 3/uL Red Blood Count 4.15 4.20-5.40 10 6/uL Hemoglobin 13.2 12.0-16.0 g/dL Hematocrit 38.6 36.0-48.0 % Mean Corpuscular Volume 93.0 81.0-99.0 fL Mean Corpuscular Hemoglobin 31.8 26.7-34.0 pg Mean Corpuscular HGB Conc 34.2 29.9-35.2 g/dL Red Cell Distribution Width 12.2 11.0-15.0 % Platelet Count 167 150-450 10 3/uL Mean Platelet Volume 10.3 9.5-13.5 fL Neutrophils Percent Auto 75.3 43.0-75.0 % Lymphocytes Percent Auto 10.6 20.5-60.0 % Monocytes Percent Auto 12.8 1.7-12.0 % Eosinophils Percent Auto 0.6 0.9-7.0 % Basophils Percent Auto 0.4 0.2-2.0 % Immature Granulocytes Pct Auto 0.3 0.0-0.5 % Neutrophils Absolute Auto 7.9 1.4-6.5 10 3/uL Lymphocytes Absolute Auto 1.1 1.2-3.8 10 3/uL Monocytes Absolute Auto 1.4 0.3-0.8 10 3/uL Eosinophils Absolute Auto 0.1 0.0-0.7 10 3/uL Basophils Absolute Auto 0.0 0.0-0.1 10 3/uL Immature Granulocytes Abs Auto 0.03 0.00-0.03 10 3/uL Performing Lab: see note ML - [facility] LB CBC AUTO DIFF Reviewed date:05/06/2024 02:15:27 PM Interpretation: Performing Lab: Notes/Report: [facility] , White Blood Count 9.7 4.0-11.0 10 3/uL Red Blood Count 3.88 4.20-5.40 10 6/uL Hemoglobin 12.7 12.0-16.0 g/dL Hematocrit 36.7 36.0-48.0 % Mean Corpuscular Volume 94.6 81.0-99.0 fL Mean Corpuscular Hemoglobin 32.7 26.7-34.0 pg Mean Corpuscular HGB Conc 34.6 29.9-35.2 g/dL Red Cell Distribution Width 12.4 11.0-15.0 % Platelet Count 195 150-450 10 3/uL Mean Platelet Volume 10.7 9.5-13.5 fL Neutrophils Percent Auto 65.3 43.0-75.0 % Lymphocytes Percent Auto 18.2 20.5-60.0 % Monocytes Percent Auto 14.4 1.7-12.0 % Eosinophils Percent Auto 1.3 0.9-7.0 % Basophils Percent Auto 0.5 0.2-2.0 % Immature Granulocytes Pct Auto 0.3 0.0-0.5 % Neutrophils Absolute Auto 6.3 1.4-6.5 10 3/uL Lymphocytes Absolute Auto 1.8 1.2-3.8 10 3/uL Monocytes Absolute Auto 1.4 0.3-0.8 10 3/uL Eosinophils Absolute Auto 0.1 0.0-0.7 10 3/uL Basophils Absolute Auto 0.1 0.0-0.1 10 3/uL Immature Granulocytes Abs Auto 0.03 0.00-0.03 10 3/uL Performing Lab: see note ML - [facility] LB PROLACTIN Reviewed date:07/30/2024 08:47:20 AM Interpretation: Performing Lab: Notes/Report: [facility] , Prolactin 9.3 3.6-25.2 ng/mL Performing Lab: see note - [facility] LB ESTROGEN Reviewed date:07/30/2024 08:47:20 AM Interpretation: Performing Lab: Notes/Report: [facility] , Estrogens, Total 59 . pg/mL Prepubertal < 40 Female Cycle: 1-10 Days 16 - 328 11-20 Days 34 - 501 21-30 Days 48 - 350 Post-Menopausal 40 - 244 Performed at: [facility] [place] [address] [place], [place] [id number] [employer]: Rony Rose MD, Phone: [phone] Performing Lab: see note LC - [facility] LB BNP Reviewed date:05/14/2024 02:23:53 PM Interpretation: Performing Lab: Notes/Report: [facility] , NT Pro B Type Natriuretic Pept 1142.0 <=900.0 pg/mL Performing Lab: see note ML - [facility] LB ITP Reviewed date:11/17/2024 09:49:46 PM Interpretation: Performing Lab: Notes/Report: Source Facility: [facility] [place] [address] [place] [address] Cardiac Rehab Report Signed Patient: JAVIER LINK MR#: [id number] : 1970 Acct:[id number] Age/Sex: 54 / F ADM Date: 11/08/24 Loc: CR Attending Dr: DEENA BENTON Ordering Physician: Pranav De Santiago D.O. 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 Signed By: 11/09/24 1430 11/09/24 1430 DD/ 1405 TD/TT: Cold Saw Operator: [place] [address] Cardiac Rehab Report Signed Patient: LIN LINK MR#: [id number] : 1970 Acct:[id number] Age/Sex: 54 / F ADM Date: 11/08/24 Loc: CR Attending Dr: DEENA BENTON Ordering Physician: Ball,Pranav D.O. 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 Signed By: 11/09/24 1430 11/09/24 1430 DD/ 140 TD/TT: Cold Saw Operator: PROF MALINDA Wheeler ([facility]) Reviewed date:09/26/2024 02:27:41 PM Interpretation: Performing Lab: Notes/Report: [facility] , Sodium 134 136-145 mmol/L Potassium 4.2 3.5-5.1 mmol/L Chloride 99 98-107 mmol/L Carbon Dioxide 28.4 21.0-32.0 mmol/L Anion Gap 10.8 Glucose 92 74-106 mg/dL Blood Urea Nitrogen 9.0 7.0-18.0 mg/dL Creatinine 1.08 0.55-1.02 mg/dL Estimated GFR ( Renea >60 >=60 mL/min/1.73m 2 Estimated GFR (Non- Maria De Jesus 53 >=60 mL/min/1.73m 2 BUN Creatinine Ratio 8.3 Calcium 8.8 8.5-10.1 mg/dL Performing Lab: see note ML - [facility] LB BNP Reviewed date:09/26/2024 02:27:41 PM Interpretation: Performing Lab: Notes/Report: [facility] , NT Pro B Type Natriuretic Pept 796.0 <=900.0 pg/mL Performing Lab: see note ML - [facility] LB ITP Reviewed date:09/09/2024 01:57:52 PM Interpretation: Performing Lab: Notes/Report: Source Facility: [facility] [place] [address] [place] [address] Cardiac Rehab Report Signed Patient: JAVIER LINK MR#: [id number] : 1970 Acct:[id number] Age/Sex: 54 / F ADM Date: Loc: CR Attending Dr: DEENA BENTON Ordering Physician: Pranav De Santiago D.O. 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 Signed By: 09/08/24 0815 09/08/24814 DD/ 1435 TD/TT: Cold Saw Operator: [place] [address] Cardiac Rehab Report Signed Patient: LIN LINK MR#: [id number] : 1970 Acct:[id number] Age/Sex: 54 / F ADM Date: Loc: CR Attending Dr: DEENA BENTON Ordering Physician: Pranav De Santiago D.O. 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 Signed By: 09/08/24 0815 09/08/24 08 DD/ 1435 TD/TT: Cold Saw Operator: BUCK Henderson or MICROSCOPIC Reviewed date:07/22/2024 12:32:39 PM Interpretation: Performing Lab: Notes/Report: [facility] , Color Urine LT. YELLOW YELLOW Clarity Urine CLEAR CLEAR Specific Jackson Urine <=1.005 1.005-1.025 pH Urine 6.5 5.0-9.0 Protein Urine NEGATIVE NEG/TRACE mg/dL Glucose Urine UA NEGATIVE NEGATIVE mg/dL Bilirubin Urine NEGATIVE NEGATIVE Ketones Urine NEGATIVE NEGATIVE mg/dL Blood Urine NEGATIVE NEGATIVE Nitrite Urine NEGATIVE NEGATIVE Urobilinogen Urine 0.2 0.2-1.0 EU/dL Leukocyte Esterase Urine NEGATIVE NEGATIVE WBC Urine NONE SEEN NONE SEEN #/HPF RBC Urine NONE SEEN 0-2 #/HPF Bacteria Urine NONE SEEN NONE SEEN #/HPF Mucus Urine NONE SEEN NONE SEEN Squamous Epithelial Cell Urine FEW NONE/RARE #/LPF Urine Culture Indicated ALREADY ORDERED Performing Lab: see note ML - [facility] LB UA RANDOM Reviewed date:07/18/2024 10:04:37 AM Interpretation: Performing Lab: Notes/Report: [facility] , Color Urine LT. YELLOW YELLOW Clarity Urine CLEAR CLEAR Specific Jackson Urine <=1.005 1.005-1.025 pH Urine 6.0 5.0-9.0 Protein Urine NEGATIVE NEG/TRACE mg/dL Glucose Urine UA NEGATIVE NEGATIVE mg/dL Bilirubin Urine NEGATIVE NEGATIVE Ketones Urine NEGATIVE NEGATIVE mg/dL Blood Urine NEGATIVE NEGATIVE Nitrite Urine NEGATIVE NEGATIVE Urobilinogen Urine 0.2 0.2-1.0 EU/dL Leukocyte Esterase Urine NEGATIVE NEGATIVE Performing Lab: see note ML - [facility] LB Reason For Referral No Information Medications Medication SIG (Take, Route, Frequency, Duration) Notes Start Date End Date Status buPROPion HCl ER (XL) 300 MG TAKE 1 TABLET BY MOUTH DAILY for 90 Active Spironolactone 25 MG 1 tablet Orally Active Atorvastatin Calcium 80 MG 1 tablet Oral Once a day for 90 days Active Potassium Chloride Tori ER 10 MEQ 1 tablet with food Oral once daily for 90 days Active Pantoprazole Sodium 40 MG 1 tablet Orall y Once a day Active Aspirin 81 81 MG 1 tablet Orally Once a day Active Ozempic (2 MG/DOSE) 8 MG/3ML as directed Subcutaneous once weekly for 28 days 02/20/2024 Active Arnuity Ellipta 100 MCG/ACT 1 puff Inhal ation Once a day for 30 days 10/16/2023 Active Levothyroxine Sodium 125 MCG 1 tablet in the morning on an empty stomach Oral Once a day for 90 days Active Furosemide 20 MG 1 tablet Orally Once a day for 90 days Active Entresto 49-51 MG 1 tablet Orally Twic e a day Active Mupirocin 2 % 1 application Magazine Publisher ally Twice a day for 5 days 01/21/2025 Active Hydrocortisone Acetate 1 % 1 application Externally BID for 14 days 01/22/2025 Active Triamcinolone Acetonide 0.05 % 1 application Externally Twice a day 01/21/2025 Active Albuterol Sulfate HFA 108 (90 Base) MCG/ACT 2 puff as needed Inhalation every 4 hrs for 30 01/25/2024 Active Ivabradine HCl 5 MG 1 tablet with meals Orally Twice a day Active DULoxetine HCl 40 MG TAKE 1 CAPSULE BY M OUTH TWICE A DAY for 90 days Active Clopidogrel Bisulfate 75 MG 1 tablet Ora l Once a day for 90 days Active Carvedilol 12.5 MG 1 tablet Oral BID fo r 90 days Active ZyrTEC Allergy 10 MG 1 tablet Orally Onc e a day Active busPIRone HCl 15 MG TAKE 1 TABLET BY DOLORES TH TWICE A DAY for 30 Active Vitamin D (Cholecalciferol) 50 MCG (1999) 1 capsule Orally Once a day Active Immunizations Vaccine Route Administration Date Status Comme nts Tdap (Adacel) IM Intramuscular 01/25/2024 Administered Social History Tobacco Use: Social History Observation Description Date Details (start date - stop date) Former Smoker 08/14/1985 - 08/14/2022 Tobacco Use/Smoking Question Answer Notes Patient is a former smoker When did you start smoking? 08/14/1985 When did you stop smoking? 08/14/2022 How long has it been since you last smoked? 6-12 months Alcohol Screen (Audit-C) Question Answer Notes Did you have a drink containing alcohol in the p ast year? No Points 0 Interpretation Negative AUDIT-C (Standard) Question Answer Notes Did you have a drink containing alcohol in the p ast year? 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 confirmed Problem 564708618 Chronic systolic (congestive) heart failure (I50.22) Active confirmed Problem 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) Interstitial pulmonary disease, unspecified (J84.9) Active confirmed Problem 2544016064599235 Unilateral primary osteoarthritis of first carpometacarpal joint, right hand (M18.11) Active confirmed Problem 20508614739777039 Other articula r cartilage disorders, left wrist (M24.132) Active confirmed Problem 47585847 Radial styloid tenosynovitis [de Quervain] (M65.4) Active confirmed Problem Psoriasis (3973053) Psoriasis (L40.9) Active co nfirmed Problem Asthma (138825616) Asthma (J45.909) Active conf irmed Problem Hot flashes (217558598) Hot flashes (N95.1) Active confirmed Problem Acute bronchiolitis (7108516) Acute bronchiolitis (J21.9) Active confirmed Problem Mixed anxiety and depressive disorder (083221004) Anxiety and depression (F41.8) Active confirmed Problem 83623426 Other hyperlipidemia (E78.49) Active confirmed Problem Chronic kidney disease stage 3A (disorder) (289596220) Chronic kidney disease, stage 3a (N18.31) Active confirmed Vital Signs Blood pressure diastolic 64 mm Hg 01/21/2025 Height 58 in 01/21/2025 Blood pressure systolic 108 mm Hg 01/21/2025 Weight 136.2 lbs 01/21/2025 BMI 28.46 kg/m2 01/21/2025 Encounters Encounter Location Date Provider Diagnosis [facility] [address] [place] [address] 07/29/2024 Samia Kellogg [facility] [address] [place] [address] 01/22/2025 Samia Kellogg [facility] [address] [place] [address] 07/01/2024 Samia Kellogg Unspecified symptoms and signs involving the genitourinary system R39.9 [address] [place] [address] 07/16/2024 Samia Kellogg [facility] [address] [place] [address] 07/18/2024 Samia Kellogg Flank pain R10.9 [facility] [address] [place] [address] 07/22/2024 Samia Kellogg [facility] [address] [place] [address] 07/26/2024 Samia Kellogg [facility] [address] [place] [address] 07/26/2024 Samia Kellogg [facility] [address] [place] [address] 06/03/2024 Samia Kellogg Urinary tract infect ion N39.0 [facility] [address] [place] [address] 06/06/2024 Samia Kellogg [facility] [address] [place] [address] 06/07/2024 Samia Kellogg [facility] [address] [place] [address] 06/07/2024 Samia Kellogg [facility] [address] [place] [address] 06/10/2024 Samia Kellogg [facility] [address] [place] [address] 06/26/2024 Samia Kellogg [facility] [address] [place] [address] 05/06/2024 Samia Kellogg [facility] [address] [place] [address] 05/07/2024 Samia Kellogg [facility] [address] [place] [address] 05/09/2024 Samia Kellogg [facility] [address] [place] [address] 05/14/2024 Samia Kellogg Abnormal renal funct ion N28.9 [facility] [address] [place] [facility] [address] 05/16/2024 Samia Kellogg [facility] [address] [place] [address] 05/20/[address] [facility] [address] [place] [address] 02/09/2024 SAMIA KELLOGG [facility] [address] [place] [address] 02/20/2024 Samia Kellogg [facility] [address] [place] [facility] [place] [address] 04/22/2024 Samia Kellogg Wellness examination Z00.00 [facility] [address] [place] [facility] [place] [address] 05/03/2024 Samia Kellogg Wellness examination Z00.00 [facility] [address] [place] [address] 05/03/2024 Samia Kellogg Fatigue R53.83 [facility] [address] [place] [facility] [place] [address] 05/06/2024 Samia Kellogg [facility] [address] [place] [place] [address] 06/09/2024 Samia Kellogg [facility] [address] [place] [address] 06/11/2024 Samia Kellogg [facility] [address] [place] [address] 12/02/2024 Samia Kellogg [facility] [address] [place] [facility] [place] [address] 12/23/2024 Samia Kellogg [facility] [address] [place] [facility] [place] [place] [address] 07/23/2024 Samia Kellogg Urinary frequency R3 5.0 ; Recurrent UTI (urinary tract infection) N39.0 ; Hot flashes N95.1 ; Decreased GFR R94.4 ; Chronic kidney disease, stage 3a N18.31 and Anxiety and depression F41.8 [address] [place] [address] 05/08/2024 Samia Kellogg Essential (primary) hypertension I10 and Yeast infection B37.9 [facility] [address] [place] [address] 01/21/2025 Samia Kellogg Chronic kidney disea se, stage 3a N18.31 ; Interstitial pulmonary disease, unspecified J84.9 ; Hypertensive heart disease with heart failure I11.0 ; Psoriasis L40.9 ; Folliculitis L73.9 and Anxiety and depression F41.8 Assessments Encounter Date Diagnosis (ICD Code) Assessment Notes Treatment Notes Treatment Clinical Notes Section Notes 05/08/2024 Essential (primary) hypertension (ICD-10 - I10) continue monitor BP has fu cardiology upcoming sent in rx, med changes when discharged from 05/08/2024 Yeast infection (ICD-10 - B37.9) 01/21/2025 Chronic kidney disease, stage 3a (ICD-10 - N18.31) continue to monitor, labs in Sept BP controlled 01/21/2025 Interstitial pulmonary disease, unspecified (ICD-10 - J84.9) has stopped smoking 04/22/2024 Wellness examination (ICD-10 - Z00.00) 05/03/2024 Wellness examination (ICD-10 - Z00.00) 05/03/2024 Fatigue (ICD-10 - R53.83) 05/14/2024 Abnormal renal function (ICD-10 - N28.9) 06/03/2024 Urinary tract infection (ICD-10 - N39.0) 07/01/2024 Unspecified symptoms and signs involving the genitourinary system (ICD-10 - R39.9) 07/18/2024 Flank pain (ICD-10 - R10.9) 07/23/2024 Urinary frequency (ICD-10 - R35.0) if sx dont subside, needs UA CS notify office, verbalizes understanding 07/23/2024 Recurrent UTI (urinary tract infection) (ICD-10 - N39.0) 07/23/2024 Hot flashes (ICD-10 - N95.1) 01/21/2025 Hypertensive heart disease with heart failure (ICD-10 - I11.0) sees cardiology upcoming echo 01/21/2025 Psoriasis (ICD-10 - L40.9) 07/23/2024 Decreased GFR (ICD-10 - R94.4) ch 07/23/2024 Chronic kidney disease, stage 3a (ICD-10 - N18.31) reviewed meds CMP continue monitor ch 01/21/2025 Folliculitis (ICD-10 - L73.9) 01/21/2025 Anxiety and depression (ICD-10 - F41.8) continue meds, helping some consider counseling, referral sheet given handout given, healthy lifestyle habits to support good mental health 07/23/2024 Anxiety and depression (ICD-10 - F41.8) mood good continue duloxetine, wellbutrin ch Plan Of Treatment Pending Test Test Name Order Date CMP (COMPLETE METABOLIC PANEL) 3 CMP (COMPLETE METABOLIC PANEL) 4 CMP (COMPLETE METABOLIC PANEL) 4 CMP (COMPLETE METABOLIC PANEL) 4 CMP (COMPLETE METABOLIC PANEL) 4 CMP (COMPLETE METABOLIC PANEL) 4 CMP (COMPLETE METABOLIC PANEL) 4 UA (URINALYSIS, COMPLETE) 06/03/2024 UA (URINALYSIS, COMPLETE) 05/08/2024 UA (URINALYSIS, COMPLETE) 07/01/2024 UA (URINALYSIS, COMPLETE) 07/18/2024 CULTURE, URINE w SENSITIVITY 06/03/2024 CULTURE, URINE w SENSITIVITY 07/18/2024 HEMOGLOBIN A1C (GLYCO) 04/22/2024 HEMOGLOBIN A1C (GLYCO) 05/03/2024 HEMOGLOBIN A1C (GLYCO) 02/06/2023 INSULIN, TOTAL 05/03/2024 INSULIN, TOTAL 04/22/2024 IRON, TOTAL 02/06/2023 LIPID PANEL (CHOL/TRIG/HDL/LDL) 02/07/20 23 LIPID PANEL (CHOL/TRIG/HDL/LDL) 05/08/20 24 LIPID PANEL (CHOL/TRIG/HDL/LDL) 05/03/20 24 LIPID PANEL (CHOL/TRIG/HDL/LDL) 04/22/20 24 CBC WITH DIFF 04/22/2024 CBC WITH DIFF 05/08/2024 CBC WITH DIFF 05/03/2024 CBC WITH DIFF 02/06/2023 VITAMIN D, 25 LEVEL (TOTAL) 02/06/2023 Urine Culture 05/08/2024 Urine Culture 07/01/2024 Insulin Level 02/06/2023 STOOL OCCULT BLOOD 02/06/2023 FREE T3 05/03/2024 FSH 07/23/2024 PROGESTERONE 07/23/2024 US KIDNEYS BLADDER 07/23/2024 THYROID PANEL (T4/TSH/FREE T3) 3 THYROID PANEL (T4/TSH/FREE T3) 4 THYROID PANEL (T4/TSH/FREE T3) 4 THYROID PANEL (T4/TSH/FREE T3) 4 URINALYSIS MICROSCOPIC 06/03/2024 URINALYSIS MICROSCOPIC 07/18/2024 Next Appt Details Provider Name:Samia martins, 07/23/2025 10:00:00 AM, [address] [place], [address], Insurance Providers Payer Name Payer Address Payer Phone Subscriber Number Group Number Insured Name Patient Relationship to Insured Coverage Start Date Coverage End Date [employer] MED[employer]ARE [address] [place], [place] [phone] [id number] Javier Link Self - patient is the insured Medical (General) History Medical History History ICD Code Chronic Systolic Heart Failure Asthma J45.909 Former smoker Z87.891 Surgical History Surgery Date(Month/Year) x2 Tubal Ligation & Ablasion Left Wrist surgery Partial Left knee replacement & Full Rig ht Defibulator placement Angio with stent placement Hospitalization History Reason Date(Month/Year) UTI, Hyponatremia 05/07 Infection 05/2022
--- OUTSIDE RECORDS SUMMARY | 2025-01-31 07:46 | XMS_ITS | Encounter Summary ---
Author Organization [facility] Address [id number] [address] [place] [address] Care Team Providers Care Parcel Post Carrier Name Role Phone MartinaMoriah galeas NISSAN SALES CONSULTANT-ZOOLOGY TECHNICAL OFFICER Primary Care Provi [facility] Reason for Visit * Reason Onset Date Comments Med Refill 07/01/2020 Encounter Details Date Type Department Care Team (Late st Contact Info) Description 07/01/2020 Refill [facility] [address] [place] [address] [place] [address] Divina Arellano CMA Hypothyroidism, unspecified type Social History Tobacco Use Types Packs/Day Years Used Date Smoking Tobacco: Every Day Cigarettes 0.8 20 Smokeless Tobacco: Never Comments:none today Alcohol Use Standard Drinks/Week Comments Yes 0 (1 standard drink = 0.6 oz pur e alcohol) occasional Social Connection and Isolation Panel [NHANES] A nswer Date Recorded Frequency of Communication with Friends and Fami ly Not on file 03/25/2020 Frequency of Social Gatherings with Friends and Family Not on file 03/25/2020 Attends Baptism Services Not on file 03/25 Active Member of Clubs or Organizations Not on f ile 03/25/2020 Attends Club or Organization Meetings Not on bailey e 03/25/2020 Are you , , di vorced, , never , or living with a partner? 03/25/2020 Overall Financial Resource Strain (CARDIA) Answe r Date Recorded How hard is it for you to pa y for the very basics like food, housing, medical care, and heating? Not hard at all 03/25/2020 PHQ-2 Answer Date Recorded Total Score 0 03/25/2020 [facility] of Occupat ional Health - Occupational Stress Questionnaire Answer Date Recorded Do you feel stress - tense, restless, nervous, or anxious, or unable to sleep at night because your mind is troubled all the time - these days? To some extent 03/25/2020 PRAPARE - Transportation Answer Date Re corded In the past 12 months, has l ack of transportation kept you from medical appointments or from getting medications? No 03/14 In the past 12 months, has l ack of transportation kept you from meetings, work, or from getting things needed for daily living? No 03/25/2020 Childcare Answer Date Recorded Do problems getting child ca re make it difficult for you to work or study? No 03/25/2020 Employment Answer Date Recorded Do you need help finding a [facility] career center and/or a training program? No 03/25/2020 Comments No Sex and Gender Information Value Date Recorded Sex Assigned at Female 12/16/2020 2:50 PM EDT Legal Sex Female 11:22 AM EDT Gender Identity Female 12/16/2020 2:50 PM EDT Sexual Orientation Not on file documented as of this encounter Plan of Treatment Not on file documented as of this encounter Goals Goal Patient Goal Type Associated Problems Recent Progress Patient-Stated? Author Home General Yes [place] LSW Note: Evaluation of progress towards goal: Safe dc transition home with family support and [facility] for in home therapy. documented as of this encounter Visit Diagnoses Diagnosis Hypothyroidism, unspecified type documented in this encounter Additional Health Concerns Assessment Noted Time PHQ-9 Depression Total Score: 0 03/25/20 20 12:10 PM EDT A Body Mass Index follow-up plan has been documented for the patient 02/18/2020 5:34 PM EDT documented as of this encounter Care Teams Parcel Post Carrier Relationship Specialty Start Date End Date Moriah Mack, CECY-ZOOLOGY TECHNICAL OFFICER [address], [place] [address] PCP - General Family Medicine 01/31/20 documented as of this encounter
--- OUTSIDE RECORDS SUMMARY | 2025-01-31 07:46 | XMS_ITS | Clinical Summary ---
Author Organization [facility] Address [address] [place] [address] Phone Care Team Providers Care Grain Elevator Man Name Role Phone Unavailable Primary Care Provider Unavailabl e Social History Tobacco Use Types Packs/Day Years Used Date Smoking Tobacco: Never Assessed PHQ-2 Answer Date Recorded Patient Health Questionnaire-2 Score 1 01/20/2022 Comments Unknown Sex and Gender Information Value Date Recorded Sex Assigned at Not on file Legal Sex Female 1:38 PM EST Gender Identity Not on file Sexual Orientation Not on file Last Filed Vital Signs Vital Sign Reading Time Taken Comments Blood Pressure 105/58 01/20/2022 12:07 PM EDT Pulse 60 01/20/2022 11:58 AM EDT Temperature - - Respiratory Rate - - Oxygen Saturation - - Inhaled Oxygen Concentration - - Weight 84.4 kg (186 lb) 01/20/2022 11:58 AM EDT Height 147.3 cm (4' 10 ) 01/20/2022 11:58 AM EDT Body Mass Index 38.87 01/20/2022 11:58 AM EDT Plan of Treatment Health Maintenance Due Date Last Done Comments CT Colonography 1971 Colonoscopy 1971 Colorectal Cancer Screening 1971 FIT-DNA (Cologuard) 1971 FIT 1971 HIV Screening 1971 Lipid Panel 1971 Sigmoidoscopy 1971 Yearly Adult Physical 1971 MMR Vaccines (1 of 1 - Stand amy series) 01/25/1972 Hepatitis C Screening 1989 Hepatitis B Vaccines (1 of 3 - 19+ 3-dose series) 1990 Cervical Cancer Screening 01/25/1992 HPV/Cotest 01/25/1992 Pap Smear 01/25/1992 DTaP/Tdap/Td Vaccines (1 - Tdap) 1993 Mammogram 2011 Pneumococcal Vaccine (1 of 1 - PCV) 2021 Zoster Vaccines (1 of 2) 2021 COVID-19 Vaccine (1 - 2023-2 5 season) 2024 Influenza Vaccine (Season Ended) 2025 HIB Vaccines Aged Out No longer eligi ble based on patient's age to complete this topic HPV Vaccines Aged Out No longer eligi ble based on patient's age to complete this topic Hepatitis A Vaccines Aged Out No long er eligible based on patient's age to complete this topic IPV Vaccines Aged Out No longer eligi ble based on patient's age to complete this topic Meningococcal Vaccine Aged Out No gaurav luis eligible based on patient's age to complete this topic Rotavirus Vaccines Aged Out No longer eligible based on patient's age to complete this topic
--- OUTSIDE RECORDS SUMMARY | 2025-01-31 07:46 | XMS_ITS | Encounter Summary ---
Author Organization [facility] Address [id number] [address] [place] [address] Care Team Providers Care Shoe Stamper Name Role Phone Moriah Mack APPRAISER AUDITOR-MOBILE APPLICATION ENGINEER Primary Care Provi didi Reason for Visit * Reason Onset Date Comments Med Refill 12/07/2021 Encounter Details Date Type Department Care Team (Late st Contact Info) Description 12/07/2021 Refill [facility] [address] [place] [address] [place] [address] Moriah Mack, CECY-MOBILE APPLICATION ENGINEER [address] [facility] B, [facility] D [place], [place] [id number] Anxiety and depression Social History Tobacco Use Types Packs/Day Years Used Date Smoking Tobacco: Every Day Cigarettes 0.8 20 Smokeless Tobacco: Never Alcohol Use Standard Drinks/Week Comments Yes 0 (1 standard drink = 0.6 oz pur e alcohol) occasional Social Connection and Isolat ion Panel [NHANES] Answer Date Recorded In a typical week, how many times do you talk on the phone with family, friends, or neighbors? More than three times a week 11/29/2020 How often do you get togethe r with friends or relatives? Once a week 11/29/2020 How often do you attend [facility] or jain services? Never 11/29/2020 Do you belong to any clubs o r organizations such as restorationism groups, unions, fraternal or athletic groups, or school groups? No 11/29/2020 How often do you attend meet ings of the clubs or organizations you belong to? Never 11/29/2020 Are you , , di vorced, , never , or living with a partner? 11/29/2020 AUDIT-C Answer Date Recorded Q1: How often do you have a drink containing alc ohol? 2-4 times a month 11/29/2020 Q2: How many drinks containi ng alcohol do you have on a typical day when you are drinking? 1 or 2 11/29/2020 Q3: How often do you have si x or more drinks on one occasion? Never 11/29/2020 Overall Financial Resource Strain (CARDIA) Answe r Date Recorded How hard is it for you to pa y for the very basics like food, housing, medical care, and heating? Hard 11/29/2020 PHQ-2 Answer Date Recorded Total Score 14 02/01/2021 [facility] of Occupat ional Health - Occupational Stress Questionnaire Answer Date Recorded Do you feel stress - tense, restless, nervous, or anxious, or unable to sleep at night because your mind is troubled all the time - these days? Very much 11/29/2020 Exercise Vital Sign Answer Date Recorde d On average, how many days pe r week do you engage in moderate to strenuous exercise (like a brisk walk)? 2 days 11/29/2020 On average, how many minutes do you engage in exercise at this level? 10 min 11/29/2020 PRAPARE - Transportation Answer Date Re corded In the past 12 months, has l ack of transportation kept you from medical appointments or from getting medications? No 11/12 In the past 12 months, has l ack of transportation kept you from meetings, work, or from getting things needed for daily living? No 11/29/2020 Childcare Answer Date Recorded Do problems getting child ca re make it difficult for you to work or study? No 11/29/2020 Employment Answer Date Recorded Do you need help finding a [facility] career center and/or a training program? No 11/29/2020 Purpose - Life Answer Date Recorded I have a purpose and direction in my life. Somew hat Disagree 11/29/2020 Education Answer Date Recorded What is the highest level of school you have completed or the highest degree you have received? 12th grade 11/29/2020 Comments No Sex and Gender Information Value Date Recorded Sex Assigned at Female 12/16/2020 2:50 PM EDT Legal Sex Female 11:22 AM EDT Gender Identity Female 12/16/2020 2:50 PM EDT Sexual Orientation Not on file documented as of this encounter Miscellaneous Notes * Telephone Encounter - CRISSY Dunbar - 12/07/2021 8:17 PM EDT This pt will need to come in within two months or will no longer be able to prescribe, since has been a year since has been seen. Also need to know how she is taking the cymbalta. Since originally order stated she could increase if needed * Telephone Encounter - CRISSY Dunbar - 12/07/2021 8:17 PM EDT Need to know if taking 1 or 2 caps daily * Telephone Encounter - Radha La CMA - 12/07/2021 8:17 PM EDT Patient stated she is taking 2 caps daily and she would need the refill as soon as possible . She didn't want to schedule appointment because we no longer accept her insurance but till she finds a PCP needs the meds? Please advise. documented in this encounter Plan of Treatment Not on file documented as of this encounter Goals Goal Patient Goal Type Associated Problems Recent Progress Patient-Stated? Author Home General Yes [place] LSW Note: Evaluation of progress towards goal: Safe dc transition home with family support and [facility] for in home therapy. documented as of this encounter Visit Diagnoses Diagnosis Anxiety and depression documented in this encounter Additional Health Concerns Assessment Noted Time PHQ-9 Depression Total Score: 14 021 3:00 PM EDT A Body Mass Index follow-up plan has been documented for the patient 02/18/2020 5:34 PM EDT documented as of this encounter Care Teams Shoe Stamper Relationship Specialty Start Date End Date Moriah Mack, CECY-MOBILE APPLICATION ENGINEER [address], [place] [address] PCP - General Family Medicine 01/31/20 documented as of this encounter
--- OUTSIDE RECORDS SUMMARY | 2025-01-31 07:46 | XMS_ITS | Encounter Summary ---
Author Organization [facility] Address [id number] [address] [place] [address] Care Team Providers Care Operations Research Analyst Name Role Phone Moriah Mack SENIOR SOFTWARE QUALITY ANALYST-HYDRAMATIC SPECIALIST Primary Care [facility] Encounter Details Date Type Department Care Team (Late st Contact Info) Description 12/17/2020 Telephone [facility] [address] [place] [address] [place] [address] Florin Benoit CMA Social History Tobacco Use Types Packs/Day Years [...] week 11/29/2020 How often do you attend chur ch or episcopal services? Never 11/29/2020 Do you belong to any clubs o r organizations such as shinto groups, unions, fraternal or athletic groups, or [...] 11/29/2020 PHQ-2 Answer Date Recorded Total Score 18 11/29/2020 [facility] [place] of Occupat ional Health - Occupational Stress [...] Recorded Do you need help finding a [place] career center and/or a training program? No [...] PM EDT Sexual Orientation Not on file COVID-19 Exposure Response Date Recorded In the last month, have you been in contact with someone who was confirmed or suspected to have Coronavirus / COVID-19? No / Unsure 12/16/2020 1:46 PM EDT documented as of this encounter Miscellaneous Notes * Telephone Encounter - Florin Adan CMA - 12/17/2020 2:06 PM EDT ----- Message from CRISSY Martins sent at 12/17/2020 7:57 AM EDT ----- Negative exam * Telephone Encounter - Florin Adan CMA - 12/17/2020 2:06 PM EDT Informed pt of results, she verbalized understanding. documented in this encounter Plan of Treatment Not on file documented as of this encounter Goals Goal Patient Goal Type Associated Problems Recent Progress Patient-Stated? Author Home General Yes [place] LSW Note: Evaluation of progress towards goal: Safe dc transition home with family support and [facility] for in home therapy. documented as of this encounter Visit Diagnoses Not on filedocumented in this encounter Additional Health Concerns Assessment Noted Time PHQ-9 Depression Total Score: 18 021 10:19 AM EDT A Body Mass Index follow-up plan has been documented for the patient 02/18/2020 5:34 PM EDT documented as of this encounter Care Teams Operations Research Analyst Relationship Specialty Start Date End Date Moriah Mack, CRISSY [address], [place] [address] PCP - General Family Medicine 01/31/20 documented as of this encounter
--- OUTSIDE RECORDS SUMMARY | 2025-01-31 07:46 | XMS_ITS | Encounter Summary ---
Author Organization [facility] Address [address] [place] [address] Care Team Providers Care Order Control Clerk Blood Bank Name Role Phone Hank Gómez MD Primary Care Provider [phone] Samia Rosales CNP Primary Care Provider [phone] Reason for Visit * Reason Comments Med Refill Encounter Details Date Type Department Care Team (Late st Contact Info) Description 06/04/2023 Refill [facility] Cardiology [address] [place] [phone] Roya Joaquin CNP [address] [facility] [place] [address] Acute on chronic systolic heart failure (CMS/HCC); Left ventricular thrombus Social History Tobacco Use Types Packs/Day Years Used Date Smoking Tobacco: Former Cigarettes 0 10/20/1987 - 10/19/2022 Smokeless Tobacco: Never Alcohol Use Standard Drinks/Week Comments Not Currently 0 (1 standard drink = 0.6 oz pur e alcohol) occasional Comments No Sex and Gender Information Value Date Recorded Sex Assigned at Female 05/17/2022 6:36 AM EDT Legal Sex Female 9:12 PM EDT Gender Identity Female 05/17/2022 6:36 AM EDT Sexual Orientation Heterosexual or Straight 11/2021 6:36 AM EDT documented as of this encounter Plan of Treatment Upcoming Encounters Date Type Department Care Team (Late st Contact Info) Description 02/18/2025 2:00 PM EDT Ancillary Procedure [facility] [address] [place] [address] documented as of this encounter Visit Diagnoses Diagnosis Acute on chronic systolic heart failure (CMS/HCC) Acute on chronic systolic heart failure Left ventricular thrombus Acute myocardial infarction, unspecified site, episode of care unspecified documented in this encounter Care Teams Order Control Clerk Blood Bank Relationship Specialty Start Date End Date Hank Gómez MD [address] [place] [address] PCP - General 05/17/22 06/27/23 Samia Rosales CNP [address] [place] [address] PCP - General Family Medicine 06/28/23 documented as of this encounter
--- OUTSIDE RECORDS SUMMARY | 2025-01-31 07:46 | XMS_ITS | Encounter Summary ---
Author Organization [facility] Address [id number] [address] [place] [address] Care Team Providers Care Marketing And Outreach Coordinator Name Role Phone Moriah Mack CLOTH SHEARER-SENIOR SOFTWARE DEVELOPER Primary Care Provi didi Reason for Visit * Reason Onset Date Comments Med Refill 12/07/2021 Encounter Details Date Type Department Care Team (Late st Contact Info) Description 12/07/2021 Refill [facility] [address] [place] [address] [place] [address] Moriah Mack, CECY-SENIOR SOFTWARE DEVELOPER [address] [facility] B, [facility] D [place], [place] [id number] Accelerated essential hypertension Social History Tobacco Use Types Packs/Day Years [...] week 11/29/2020 How often do you attend [facility] or confucianism services? Never 11/29/2020 Do you belong to any clubs o r organizations such as baptism groups, unions, fraternal or athletic groups, or [...] Answer Date Recorded Total Score 14 02/01/2021 [facility] of Occupat ional Health - Occupational Stress [...] Recorded Do you need help finding a [facility] career [facility] and/or a training program? No [...] dc transition home with family support and C for in home therapy. documented as of this encounter Visit Diagnoses Diagnosis Accelerated essential hypertension Essential hypertension, malignant documented in this encounter Additional Health Concerns Assessment Noted Time PHQ-9 Depression Total Score: 14 021 3:00 PM EDT A Body Mass Index follow-up plan has been documented for the patient 02/18/2020 5:34 PM EDT documented as of this encounter Care Teams Marketing And Outreach Coordinator Relationship Specialty Start Date End Date Moriah Mack, CLOTH SHEARER-SENIOR SOFTWARE DEVELOPER [address], [place] [address] PCP - General Family Medicine 01/31/20 documented as of this encounter
--- OUTSIDE RECORDS SUMMARY | 2025-01-31 07:46 | XMS_ITS | Encounter Summary ---
Author [facility] Address [id number] [address] [place] [address] Care Team Providers Care Family Program Specialist Name Role Phone Moriah Mack PMO MANAGER-POLICE CHIEF Primary Care Provi [facility] Encounter Details Date Type Department Care Team (Late st Contact Info) Description 02/24/2021 Telephone Team [facility] [address] [place] [address] [place] [address] Osiris Rodriguez CMA Social History Tobacco Use Types Packs/Day [...] often do you attend chur ch or catholic services? Never 11/29/2020 Do you belong to any clubs o r organizations such as adventism groups, unions, fraternal or athletic groups, or [...] Answer Date Recorded Total Score 14 02/01/2021 [facility] [place] of Occupat ional Health - Occupational Stress [...] have Coronavirus / COVID-19? No / Unsure 02/23/2021 1:25 PM EDT documented as of this encounter Miscellaneous Notes * Telephone Encounter - Osiris Rodriguez CMA - 02/24/2021 3:44 PM EDT ----- Message from CRISSY Dunbar sent at 02/24/2021 1:51 PM EDT ----- To follow up with provider who ordered MRI * Telephone Encounter - Osiris Rodriguez CMA - 02/24/2021 3:44 PM EDT Informed patient to follow up with [facility]. documented in this encounter Plan of Treatment Not on file documented as of this encounter Goals Goal Patient Goal Type Associated Problems Recent Progress Patient-Stated? Author Home General Yes [place] LSW Note: Evaluation of progress towards goal: Safe dc transition home with family support and [facility] for in home therapy. documented as of this encounter Visit Diagnoses Not on filedocumented in this encounter Additional Health Concerns Assessment Noted Time PHQ-9 Depression Total Score: 14 021 3:00 PM EDT A Body Mass Index follow-up plan has been documented for the patient 02/18/2020 5:34 PM EDT documented as of this encounter Care Teams Family Program Specialist Relationship Specialty Start Date End Date Moriah Mack APRN-CNP [address], [place] [address] PCP - General Family Medicine 01/31/20 documented as of this encounter
--- OUTSIDE RECORDS SUMMARY | 2025-01-31 07:46 | XMS_ITS | Encounter Summary ---
Author Organization [facility] Address [id number] [address] [place] [address] Care Team Providers Care Director Of Early Childhood Education Name Role Phone Moriah Mack BURLAP SPREADER-REGULATOR TESTER Primary Care Provi didi Reason for Visit * Reason Onset Date Comments Med Refill 12/07/2021 Encounter Details Date Type Department Care Team (Late st Contact Info) Description 12/07/2021 Refill [facility] [address] [place] [address] [address] [place] [address] Moriah Mack, CECY-REGULATOR TESTER [address] [facility] B, [facility] D [place], [place] [phone] Accelerated essential hypertension Social History Tobacco Use [...] week 11/29/2020 How often do you attend [facility] or mormon services? Never 11/29/2020 Do you belong to any clubs o r organizations such as judaism groups, unions, fraternal or athletic groups, or [...] Answer Date Recorded Total Score 14 02/01/2021 [facility] of Occupat ional Health - Occupational [...] Recorded Do you need help finding a [facility] career [facility] and/or a training [...] documented as of this encounter Care Teams Director Of Early Childhood Education Relationship Specialty Start Date End Date Moriah Mack, BURLAP SPREADER-REGULATOR TESTER [address], [place] [address] PCP - General Family Medicine 01/31/20 documented as of this encounter
--- OUTSIDE RECORDS SUMMARY | 2025-01-31 07:46 | XMS_ITS | Clinical Summary ---
Author Organization [facility] Address [address] [place] [address] Care Team Providers Care Supervisor Lace Tearing Name Role Phone Unavailable Primary Care Provider Unavailabl e Social History Tobacco Use Types Packs/Day Years Used Date Smoking Tobacco: Never Assessed Comments Unknown Sex and Gender Information Value Date Recorded Sex Assigned at Not on file Legal Sex Female 7:25 PM EDT Gender Identity Not on file Sexual Orientation Not on file Last Filed Vital Signs Vital Sign Reading Time Taken Comments Blood Pressure - - Pulse - - Temperature - - Respiratory Rate - - Oxygen Saturation - - Inhaled Oxygen Concentration - - Weight 76.2 kg (168 lb) 02/25/2020 12:00 PM EDT Height 147.3 cm (4' 10 ) 02/25/2020 12:00 PM EDT Body Mass Index 35.11 02/25/2020 12:00 PM EDT Plan of Treatment Not on file Insurance [employer]ARE [employer]VANTAGE
--- OUTSIDE RECORDS SUMMARY | 2025-01-31 07:46 | XMS_ITS | Encounter Summary ---
Author Organization [facility] [id number] [address] [place] [address] Care Team Providers Care Public Health Professor Name Role Phone Moriah Mack DASHBOARD DEVELOPER-BUSINESS DEVELOPMENT ASSISTANT Primary Care Provi [facility] Encounter Details Date Type Department Care Team (Late st Contact Info) Description 12/17/2020 Telephone [facility] [address] [place] [address] [place] [address] Florin Benoit CMA Social History [...] often do you attend chur ch or jewish services? Never 11/29/2020 Do you belong to any clubs o r organizations such as denominational groups, unions, fraternal or athletic groups, or [...] Answer Date Recorded Total Score 18 11/29/2020 [facility] [place] of Occupat ional Health - Occupational Stress [...] Encounter - Florin Adan CMA - 12/17/2020 2:08 PM EDT ----- Message from CRISSY Martins sent at 12/17/2020 11:27 AM EDT ----- She can schedule with [facility] as this was an incidental finding and originally she was looking for fracture of the ankle * Telephone Encounter - Florin Adan CMA - 12/17/2020 2:08 PM EDT Informed pt of results, she verbalized understanding. documented in this encounter Plan of Treatment Not on file documented as of this encounter Goals Goal Patient Goal Type Associated Problems Recent Progress Patient-Stated? Author Home General Yes [place] LSW Note: Evaluation of progress towards goal: Safe dc transition home with family support and [facility] for in home therapy. documented as of this encounter Visit Diagnoses Not on filedocumented in this encounter Additional Health Concerns Assessment Noted Time PHQ-9 Depression Total Score: 18 021 10:19 AM EDT A Body Mass Index follow-up plan has been documented for the patient 02/18/2020 5:34 PM EDT documented as of this encounter Care Teams Public Health Professor Relationship Specialty Start Date End Date Moriah Mack APRN-CNP [address], [place] [address] PCP - General Family Medicine 01/31/20 documented as of this encounter
--- OUTSIDE RECORDS SUMMARY | 2025-01-31 07:46 | XMS_ITS | Clinical Summary ---
Author Organization [employer] Sys [facility] Address [id number] [address] [place] [address] Care Team Providers Care Display Manager Name Role Phone Moriah Mack STALLION KEEPER-LINING STUFFER Primary Care Provi didi Allergies Active Allergy Reactions Criticality Noted Date Comments Moxifloxacin Hives 11/30/2019 Chlorhexidine Gluconate 02/25/2020 Itching and burning Medications meloxicam (MOBIC) 15 mg tablet 01/21/2021 Active albuterol (PROVENTIL HFA;VENTOLIN HFA) 90 mcg/actuation inhalerIndication s:Asthma with status asthmaticus, unspecified asthma severity, unspecified whether persistent Inhale 2 puffs every 6 (six) hours as needed for wheezing. 18 g 1 06/09/2021 Active fluticasone propion-salmetero L (ADVAIR) 500-50 mcg/dose DISKUSIndications :Asthma with status asthmaticus, unspecified asthma severity, unspecified whether persistent Inhale 1 puff 2 (two) times a day. 60 each 1 06/09/2021 Active levothyroxine (SYNTHROID, LEVOTHROID) 137 MCG tabletIndications :Chronic thyroiditis Take 1 tablet (137 mcg total) by mouth in the morning. 90 tablet 12/07/2021 Active atorvastatin (LIPITOR) 10 mg tabletIndications :High cholesterol Take 1 tablet (10 mg total) by mouth in the morning. 30 tablet 1 12/08/2021 Active hydroCHLOROthiazi de (HYDRODIURIL) 25 mg tabletIndications :Accelerated essential hypertension Take 1 tablet (25 mg total) by mouth daily. 30 tablet 1 12/08/2021 Active lisinopriL (PRINIVIL,ZESTRIL ) 10 mg tabletIndications :Accelerated essential hypertension Take 1 tablet (10 mg total) by mouth in the morning. 30 tablet 1 12/08/2021 Active DULoxetine (CYMBALTA) 30 mg capsuleIndication s:Anxiety and depression 2 caps daily 60 capsule 1 12/08/2021 Active Active Problems Problem Noted Date Diagnosed Date Hypertension 02/01/2021 Avascular necrosis of bone of wrist 02/01/2021 Psoriatic arthritis 12/01/2020 Resolved Problems Problem Noted Date Diagnosed Date Resolved Date Anxiety and depression 12/01/202012/16 Hx of abnormal cervical Pap smear 12/01/2020 12/16/2020 Primary osteoarthritis of right knee 03/24/2020 12/16/2020 Acquired hypothyroidism 03/18/2020 05/0 12/2020 Pre-operative clearance 03/17/2020 04/2 Fungal ear infection 03/17/2020 021 Acute diffuse otitis externa of right ear 02/18/2020 12/01/2020 Itching of ear 02/03/2020 12/01/2020 Otitis of left ear 02/03/2020 Chronic pain of right knee 02/03/2020 0 12/01/2020 Family History Medical History Relation Name Comments Hyperlipidemia Brother Diabetes Father Heart disease Father Hyperlipidemia Father Hypertension Father Kidney disease Father Vision loss Father Arthritis Mother COPD Mother Depression Mother Hearing loss Mother Heart disease Mother Vision loss Mother Cancer Sister Early Sister Liver cancer Sister Liver disease Sister Early Son Breast cancer Neg Hx Relation Name Status Comments Brother Father Mother Sister Son Social History Tobacco Use Types Packs/Day Years Used Date Smoking Tobacco: Every Day Cigarettes 0.8 20 Smokeless Tobacco: Never Tobacco Cessation:Ready to Q uit: No Alcohol Use Standard Drinks/Week Comments Yes 0 [...] 11/29/2020 How often do you attend chur or buddhism services? Never 11/29/2020 Do you belong to any clubs o r organizations such as restorationist groups, unions, fraternal or athletic groups, or [...] Answer Date Recorded Total Score 14 02/01/2021 [facility] [place] of Occupat ional Health - Occupational Stress [...] Recorded Do you need help finding a [facility] career center and/or a training program? No [...] PM EDT Sexual Orientation Not on file Last Filed Vital Signs Vital Sign Reading Time Taken Comments Blood Pressure 132/78 02/01/2021 3:34 PM EDT Pulse 77 02/01/2021 3:34 PM EDT Temperature 36 C (96.8 F) 02/01/2021 3:34 PM EDT Respiratory Rate 16 03/26/2020 2:28 PM EDT Oxygen Saturation 99% 02/01/2021 3:34 PM EDT Inhaled Oxygen Concentration - - Weight 81.6 kg (180 lb) 02/23/2021 1:47 PM EDT Height 147.3 cm (4' 10 ) 02/01/2021 3:34 PM EDT Body Mass Index 37.62 02/01/2021 3:34 PM EDT Plan of Treatment Health Maintenance Due Date Last Done Comments Depression Screening 1983 Tobacco Screening 1983 Adult BMI Screening 1989 DTaP,Tdap and Td Vaccines (1 - Tdap) 1990 Colon Cancer Screening 3 Year Cologuard 01/25/2016 Zoster (Shingles) Vaccine (1 of 2) 2021 Pap Smear 12/17/2023 12/16/2020, 12/16/2020 Influenza Vaccine 04/14/2025 Goals Goal Patient Goal Type Associated Problems Recent Progress Patient-Stated? Author Home General Yes [place] LSW Note: Evaluation of progress towards goal: Safe dc transition home with family support and [facility] for in home therapy. Medical Devices Implanted Type Area Ship Fitter Device Identifier Shelf Expiration Date Model / Serial / Lot Cmnt Bio 40gm Rpl [id number] - Sna - [id number] Implanted:Qty : 2 on 03/25/2020 by Christiano Vasquez DO at [facility] Cement Right: Knee [employer] 02/11/2024 [id number] / NA / [id number] Cmpt Ptlr 32mm Medialized Dome - Sna - [id number] Implanted:Qty : 1 on 03/25/2020 by Christiano Vasquez DO at [facility] Orthopedic Implant Right: Knee ORTHOPAEDICS 01/11/2025 [id number] / NA / [id number] Cmpt Fem 5 Kn Rt Crcte Rtn - Sna - [id number] Implanted:Qty : 1 on 03/25/2020 by Christiano Vasquez DO at [facility] Orthopedic Implant Right: Knee ORTHOPAEDICS 08/13/2029 [id number] / NA / [id number] Ins Tib 5 5mm Cr Fx Brng - Sna - [id number] Implanted:Qty : 1 on 03/25/2020 by Christiano Vasquez DO at [facility] Orthopedic Implant Right: Knee ORTHOPAEDICS 01/11/2025 [id number] / NA / [id number] Bsplt Tib 5 Kn Cmnt Fx Brng - Sna - [id number] Implanted:Qty : 1 on 03/25/2020 by Christiano Vasquez DO at [facility] Plate Right: Knee ORTHOPAEDICS 11/11/2029 [id number] / NA / [id number] Explanted Type Area Ship Fitter Device Identifier Shelf Expiration Date Model / Serial / Lot Impl Kn Fx Brng W Spcl Ins Construct Rpl [id number] - Sna - [id number] Explanted:Qty : 1 on 03/25/2020 by Christiano Vasquez DO at [facility] Orthopedic Implant Right: Knee ORTHOPAEDICS [id number] / NA / NA Procedures Procedure Name Priority Date/Time Associated Diagnosis Comments HIGH RISK HPV W/DENG Routine 12/16/2020 11:57 AM EDT Hx of abnormal cervical Pap smear Well woman exam from Last 3 Months or Most Recently Relevant to Health Maintenance Results * High risk HPV w/deng (12/16/2020 11:57 AM EDT) Hpv specimen type ThinPrep 12/17/2020 11:57 AM EDT [facility] Hpv 16 Negative Negative^N egative 12/18/2020 2:14 PM EDT [facility] Hpv 18 Negative Negative^N egative 12/18/2020 2:14 PM EDT [facility] Other high risk hpv Negative Negative^N egative 12/18/2020 2:14 PM EDT [facility] Comment: HPV types 31,33,35,39,45,52,56,58,59,66 and 68 DNA were undetectable. THINP 12/16/2020 11:5 7 AM EDT 12/17/2020 11:57 AM EDT Rivka Rogers STALLION KEEPER[facility] BLOOD ORDERABLES Fin al Result [facility] [address] [facility], [address] [place] [address] from Last 3 Months or Most Recently Relevant to Health Maintenance Insurance [place] Advance Directives * Full Code (Latest Code Status on File) Date Activated Date Inactivated Comments 03/25/2020 11:33 AM 03/26/2020 5:48 PM Care Teams Display Manager Relationship Specialty Start Date End Date Moriah Mack, STALLION KEEPER-LINING STUFFER [address], [place] [address] PCP - General Family Medicine 01/31/20
--- OUTSIDE RECORDS SUMMARY | 2025-01-31 07:46 | XMS_ITS | Encounter Summary ---
Author Organization [facility] Address [id number] [address] [place] [address] Care Team Providers Care Pulp Mill Supervisor Name Role Phone Moriah Mack AIRCRAFT MECHANIC-AUTO CARRIER DRIVER Primary Care Provi didi Reason for Visit * Reason Onset Date Comments Med Refill 12/07/2021 Encounter Details Date Type Department Care Team (Late st Contact Info) Description 12/07/2021 Refill [facility] [address] [place] [address] [place] [address] Moriah Mack, CECY-AUTO CARRIER DRIVER [address] [facility] B, [facility] [place] [address] High cholesterol Social History Tobacco Use Types Packs/Day Years [...] How often do you attend chur or evangelical services? Never 11/29/2020 Do you belong to any clubs o r organizations such as jain groups, unions, fraternal or athletic groups, or [...] Answer Date Recorded Total Score 14 02/01/2021 [facility] of Occupat ional Health - Occupational Stress [...] Do you need help finding a l al career center and/or a training program? No [...] dc transition home with family support and [facility] for in home therapy. documented as of this encounter Visit Diagnoses Diagnosis High cholesterol Pure hypercholesterolemia documented in this encounter Additional Health Concerns Assessment Noted Time PHQ-9 Depression Total Score: 14 021 3:00 PM EDT A Body Mass Index follow-up plan has been documented for the patient 02/18/2020 5:34 PM EDT documented as of this encounter Care Teams Pulp Mill Supervisor Relationship Specialty Start Date End Date Moriah Mack, AIRCRAFT MECHANIC-AUTO CARRIER DRIVER [address], [place] [address] PCP - General Family Medicine 01/31/20 documented as of this encounter
--- OUTSIDE RECORDS SUMMARY | 2025-01-31 07:46 | XMS_ITS | Encounter Summary ---
Author Organization [facility] Address [address] [place] [address] Care Team Providers Care Mechanic Field Service Name Role Phone Samia Rosales CNP Primary Care Provider [phone] Reason for Visit * Reason Onset Date Comments Med Refill 07/27/2023 Encounter Details Date Type Department Care Team (Late st Contact Info) Description 07/27/2023 Refill [facility] at [facility] [address] [place] [address] Roya Joaquin CNP [address] [place] [address] Coronary artery disease without angina pectoris, unspecified vessel or lesion type, unspecified whether squaxin or transplanted heart; Acute combined systolic and diastolic heart failure (CMS/HCC); Chronic systolic heart failure (CMS/HCC); Chronic systolic congestive heart failure (CMS/HCC) Social History Tobacco Use Types Packs/Day Years [...] Description 02/18/2025 2:00 PM EDT Ancillary Procedure [facility] [address] [place] [phone] documented as of this encounter Visit Diagnoses Diagnosis Coronary artery disease without angina pectoris, unspecified vessel or lesion type, unspecified whether squaxin or transplanted heart Acute combined systolic and diastolic heart failure (CMS/HCC) Acute combined systolic and diastolic heart failure Chronic systolic heart failure (CMS/HCC) Chronic systolic heart failure Chronic systolic congestive heart failure (CMS/HCC) documented in this encounter Care Teams Mechanic Field Service Relationship Specialty Start Date End Date Samia Rosales CNP [facility] [facility], [place] [address] PCP - General Family Medicine 06/28/23 documented as of this encounter
--- OUTSIDE RECORDS SUMMARY | 2025-01-31 07:46 | XMS_ITS | Encounter Summary ---
Author Organization [facility] Address [id number] [address] [place] [address] Care Team Providers Care Travel Accommodation Inspector Name Role Phone Moriah Mack UNDER CUTTING MACHINE OPERATOR-CHARRER Primary Care Provi [facility] Encounter Details Date Type Department Care Team (Late st Contact Info) Description 12/11/2020 Telephone [facility] [address] [place] [phone] Florin Benoit CMA Social History Tobacco Use [...] often do you attend chur ch or confucianist services? Never 11/29/2020 Do you belong to any clubs o r organizations such as uatsdin groups, unions, fraternal or athletic groups, or [...] Answer Date Recorded Total Score 18 11/29/2020 [facility] [place] of Occupat ional Health - Occupational Stress [...] have Coronavirus / COVID-19? No / Unsure 12/10/2020 9:07 AM EDT documented as of this encounter Miscellaneous Notes * Telephone Encounter - Florin Adan CMA - 12/11/2020 10:38 AM EDT ----- Message from CRISSY Martins sent at 12/10/2020 4:46 PM EDT ----- chronic thyroiditis- Will increase the levothyroxine to 137 mcg per day- Rx sent to pharmacy- Will need to recheck TSH in 6 weeks * Telephone Encounter - Florin Adan CMA - 12/11/2020 10:38 AM EDT Called pt informed her of results. She verbalized understanding. Her TSH order is awaiting mail pick up driver. documented in this encounter Plan of Treatment Not on file documented as of this encounter Goals Goal Patient Goal Type Associated Problems Recent Progress Patient-Stated? Author Home General Yes [place] LSW Note: Evaluation of progress towards goal: Safe dc transition home with family support and [facility] for in home therapy. documented as of this encounter Visit Diagnoses Not on filedocumented in this encounter Additional Health Concerns Assessment Noted Time PHQ-9 Depression Total Score: 18 021 10:19 AM EDT A Body Mass Index follow-up plan has been documented for the patient 02/18/2020 5:34 PM EDT documented as of this encounter Care Teams Travel Accommodation Inspector Relationship Specialty Start Date End Date Moriah Mack APRN-CHARRER [address], [place] [address] PCP - General Family Medicine 01/31/20 documented as of this encounter
--- OUTSIDE RECORDS SUMMARY | 2025-01-31 07:46 | XMS_ITS | Encounter Summary ---
Author Organization [facility] Address [id number] [address] [place] [address] Care Team Providers Care Writing Manager Name Role Phone Moriah Mack DENTAL BILLER-CUTTING MACHINE OPERATOR HELPER Primary Care Pro[facility] Encounter Details Date Type Department Care Team (Late st Contact Info) Description 12/10/2020 Telephone [facility] [address] [place] [address] [place] [address] Florin Benoit CMA Social History [...] often do you attend chur ch or muslim services? Never 11/29/2020 Do you belong to any clubs o r organizations such as rastafarian groups, unions, fraternal or athletic groups, or [...] Answer Date Recorded Total Score 18 11/29/2020 [facility] [place] of Occupat ional Health - Occupational Stress [...] Telephone Encounter - Florin Adan CMA - 12/10/2020 10:10 AM EDT I refaxed Ana's referral to [phone] per her request. The original referred office couldn't get her in until the end of February. documented in this encounter Plan of Treatment Not on file documented as of this encounter Goals Goal Patient Goal Type Associated Problems Recent Progress Patient-Stated? Author Home General Yes [place] LSW Note: Evaluation of progress towards goal: Safe dc transition home with family support and [facility] for in home therapy. documented as of this encounter Visit Diagnoses Not on filedocumented in this encounter Additional Health Concerns Assessment Noted Time PHQ-9 Depression Total Score: 18 021 10:19 AM EDT A Body Mass Index follow-up plan has been documented for the patient 02/18/2020 5:34 PM EDT documented as of this encounter Care Teams Writing Manager Relationship Specialty Start Date End Date Moriah Mack, DENTAL BILLER-CUTTING MACHINE OPERATOR HELPER [address], [place] [address] PCP - General Family Medicine 01/31/20 documented as of this encounter
--- OUTSIDE RECORDS SUMMARY | 2025-01-31 07:46 | XMS_ITS | Encounter Summary ---
Author Organization [facility] Address [id number] [address] [place] [address] Care Team Providers Care Social Work Faculty Member Name Role Phone Moriah Mack PRIMARY SCHOOL TEACHER LIBRARIAN-RN PRIVATE DUTY Primary Care Provi [facility] Encounter Details Date Type Department Care Team (Late st Contact Info) Description 12/21/2020 Telephone [facility] [address] [place] [address] [place] [address] Florin Benoit CMA Social History [...] any clubs o r organizations such as episcopalian groups, unions, fraternal or athletic groups, or [...] Answer Date Recorded Total Score 18 11/29/2020 [facility] [place] of Occupat ional Health - Occupational Stress [...] Telephone Encounter - Florin Adan CMA - 12/21/2020 11:45 AM EDT ----- Message from CRISSY Martins sent at 12/18/2020 8:28 AM EDT ----- Patient should follow-up with ordering provider * Telephone Encounter - Florin Adan CMA - 12/21/2020 11:45 AM EDT I spoke with Millie at [facility] with Rivka's office, Millie stated that Rivka will review with pt. documented in this encounter Plan of Treatment Not on file documented as of this encounter Goals Goal Patient Goal Type Associated Problems Recent Progress Patient-Stated? Author Home General Yes [place] LSW Note: Evaluation of progress towards goal: Safe dc transition home with family support and [facility] for in home therapy. documented as of this encounter Visit Diagnoses Not on filedocumented in this encounter Additional Health Concerns Assessment Noted Time PHQ-9 Depression Total Score: 18 021 10:19 AM EDT A Body Mass Index follow-up plan has been documented for the patient 02/18/2020 5:34 PM EDT documented as of this encounter Care Teams Social Work Faculty Member Relationship Specialty Start Date End Date Moriah Mack APRN-ANTHONY [address], [place] [address] PCP - General Family Medicine 01/31/20 documented as of this encounter
--- OUTSIDE RECORDS SUMMARY | 2025-01-31 07:46 | XMS_ITS | Encounter Summary ---
Author Organization [facility] Address [id number] [address] [place] [address] Care Team Providers Care World Geography Teacher Name Role Phone Moriah Mack PRODUCTION FOREMAN-IMPORT CUSTOMER SERVICE MANAGER Primary Care Provi didi Reason for Visit * Reason Onset Date Comments Med Refill 06/09/2021 Encounter Details Date Type Department Care Team (Late st Contact Info) Description 06/09/2021 Refill [facility] [address] [place] [address] Moriah Mack, CECY-IMPORT CUSTOMER SERVICE MANAGER [address] [facility] [address], [facility] [place] [address] Asthma with status asthmaticus, unspecified asthma severity, unspecified whether persistent Social History Tobacco Use Types Packs/Day Years [...] week 11/29/2020 How often do you attend [facility] or judaism services? Never 11/29/2020 Do you belong to any clubs o r organizations such as gnosticist groups, unions, fraternal or athletic groups, or [...] Answer Date Recorded Total Score 14 02/01/2021 [facility] of Occupat ional Health - Occupational [...] Recorded Do you need help finding a [facility] career center and/or a training program? No [...] dc transition home with family support and [facility] for in home therapy. documented as of this encounter Visit Diagnoses Diagnosis Asthma with status asthmaticus, unspecified asthma severity, unspecified whether persistent documented in this encounter Additional Health Concerns Assessment Noted Time PHQ-9 Depression Total Score: 14 021 3:00 PM EDT A Body Mass Index follow-up plan has been documented for the patient 02/18/2020 5:34 PM EDT documented as of this encounter Care Teams World Geography Teacher Relationship Specialty Start Date End Date Moriah Mack, PRODUCTION FOREMAN-IMPORT CUSTOMER SERVICE MANAGER [address], [place] [address] PCP - General Family Medicine 01/31/20 documented as of this encounter
--- OUTSIDE RECORDS SUMMARY | 2025-01-31 07:46 | XMS_ITS | Encounter Summary ---
Author Organization [facility] Address [id number] [address] [place] [address] Care Team Providers Care Commercial Roofing Estimator Name Role Phone Moriah Mack CIVIL ENGINEERING PROJECT MANAGER-HOT AIR FURNACE INSTALLER AND REPAIRER Primary Care [facility] Encounter Details Date Type Department Care Team (Late st Contact Info) Description 12/09/2020 Telephone [facility] Family Medicine [address] [place] [address] [place] [address] Florin Benoit CMA Social History [...] often do you attend chur ch or zoroastrian services? Never 11/29/2020 Do you belong to any clubs o r organizations such as amish groups, unions, fraternal or athletic groups, or [...] Answer Date Recorded Total Score 18 11/29/2020 [facility] [place] of Occupat ional Health - Occupational Stress [...] Telephone Encounter - Florin Adan CMA - 12/09/2020 12:02 PM EDT I called patient and informed her of her lab results, that Michelle ordered her a US of her thyroid due to abnormal labs and that [facility] recommends 2500mcg B12 daily. She verbalized understanding. documented in this encounter Plan of Treatment Not on file documented as of this encounter Goals Goal Patient Goal Type Associated Problems Recent Progress Patient-Stated? Author Home General Yes [place] LSW Note: Evaluation of progress towards goal: Safe dc transition home with family support and [facility] for in home therapy. documented as of this encounter Visit Diagnoses Not on filedocumented in this encounter Additional Health Concerns Assessment Noted Time PHQ-9 Depression Total Score: 18 021 10:19 AM EDT A Body Mass Index follow-up plan has been documented for the patient 02/18/2020 5:34 PM EDT documented as of this encounter Care Teams Commercial Roofing Estimator Relationship Specialty Start Date End Date Moriah Mack, CIVIL ENGINEERING PROJECT MANAGER-HOT AIR FURNACE INSTALLER AND REPAIRER [address], [place] [address] PCP - General Family Medicine 01/31/20 documented as of this encounter
--- OUTSIDE RECORDS SUMMARY | 2025-01-31 07:47 | XMS_ITS | Encounter Summary ---
Author Organization [facility] Address [address] [facility] [place] [address] Care Team Providers Care Volumetric Weigher Name Role Phone Samia Rosales CNP Primary Care Provider [phone] Encounter Details Date Type Department Care Team (Late Contact Info) Description 01/10/2025 Orders Only [facility] [address] [place] [address] Alton Parks MD [address] [place] [address] Social History Tobacco Use Types Packs/Day Years Used Date Smoking Tobacco: Former Cigarettes 0 10/20/1987 - 10/19/2022 Smokeless Tobacco: Never Alcohol Use Standard Drinks/Week Comments Not Currently 0 (1 standard drink = 0.6 oz pur e alcohol) occasional [place] Safety & Environment Answer Date Rec orded Fear of Current or Ex-Partner Not on file Emotionally Abused Not on file 10/05/2023 Physically Abused Not on file 10/05/2023 Sexually Abused Not on file 10/05/2023 Physically or Sexually Abused Not on file Comments No Sex and Gender Information Value [...] Description 02/18/2025 2:00 PM EDT Ancillary Procedure [facility] Heart at [facility] [address] [place] [address] documented as of this encounter Procedures Procedure Name Priority Date/Time Associated Diagnosis Comments CARDIAC DEVICE CHECK - REMOTE - ICD Routine 01/10/2025 12:00 AM EDT documented in this encounter Results * Cardiac device check - Remote ICD (01/10/2025 12:00 AM EDT) Anatomical Region Laterality Modality Other 01/10/2025 us Alton Parks MD CV IMPLANTABLE CARDIAC DEVICE MA OCEDURES Final Result documented in this encounter Visit Diagnoses Not on filedocumented in this encounter Care Teams Volumetric Weigher Relationship Specialty Start Date End Date Samia Rosales CNP [address] [facility], [facility] [place] [address] PCP - General Family Medicine 06/28/23 documented as of this encounter
--- OUTSIDE RECORDS SUMMARY | 2025-01-31 07:47 | XMS_ITS | Clinical Summary ---
Author Organization [facility] Address [address] [place] [address] Care Team Providers Care Continuity Person Name Role Phone Samia Rosales CNP Primary Care Provider [phone] Allergies Active Allergy Reactions Criticality Noted Date Comments Chlorhexidine Gluconate Itching Medium 02/25/2020 Burning Moxifloxacin Anaphylaxis,Hives,Sw david ng High 04/23/2022 AKA: Avalox Medications albuterol 90 mcg/actuation inhaler inhale 1 to 2 puffs by mouth and INTO THE LUNGS every 4 to 6 hours if needed 01/04/20 22 Active buPROPion XL (Wellbutrin XL) 300 mg 24 hr tablet Take 300 mg by mouth in the morning. 04/10/20 [address] capsule Take 40 mg by mouth in the morning and at bedtime. 10/19/19 23 Active levothyroxine (Synthroid, Levoxyl) 125 mcg tablet Take 125 mcg by mouth before breakfast. 07/31/20 22 Active busPIRone (Buspar) 10 mg tablet every 12 (twelve) hours. 02/07/20 23 Active guselkumab (Tremfya) 100 mg/mL syringeIndications:P soriasis,Psoriatic arthritis (CMS/HCC) Inject 1mL under the skin on Day 0 and Day 29, then every 8 weeks thereafter 2 mL 03/06/20 23 Active Additional Information Patient not taking.Reported on 11/08/2024 guselkumab (Tremfya) 100 mg/mL syringeIndications:P soriasis,Psoriatic arthritis (CMS/HCC) Inject 1mL under the skin every 8 weeks 1 mL 2 03/06/20 23 Active Additional Information Patient not taking.Reported on 11/08/2024 furosemide (Lasix) 40 mg tabletIndications:Ch ronic systolic heart failure (CMS/HCC) Take 1 tablet (40 mg) by mouth in the morning. 90 tablet 3 12/14/19 24 Active Additional Information Patient taking differently: 20 mgoralEvery other day, Reported on 11/08/2024 semaglutide (Ozempic) 1 mg/dose (2 mg/1.5 mL) pen injector Inject 1 mg under the skin 1 (one) time per week. Active nitroglycerin (Nitrostat) 0.4 mg SL tabletIndications:Co ronary arteriosclerosis Place 1 tablet (0.4 mg) under the tongue every 5 (five) minutes if needed for chest pain. 25 tablet 3 01/12/20 24 Active pantoprazole (ProtoNix) 40 mg EC tabletIndications:Ch est pain, unspecified type Take 1 tablet (40 mg) by mouth before breakfast. Do not crush, chew, or split. 90 tablet 3 03/29/20 24 025 Active aspirin 81 mg EC tablet 81 mg. 01/15/20 22 Active Arnuity Ellipta 100 mcg/actuation inhaler 06/28/20 24 Active carvedilol (Coreg) 12.5 mg tabletIndications:Ch ronic systolic heart failure (CMS/HCC) Take 1 tablet (12.5 mg) by mouth with breakfast and with evening meal. 180 tablet 3 07/08/20 24 025 Active atorvastatin (Lipitor) 80 mg tabletIndications:Co ronary artery disease without angina pectoris, unspecified vessel or lesion type, unspecified whether flandreau or transplanted heart TAKE 1 TABLET BY MOUTH AT BEDTIME 90 tablet 3 08/08/20 24 Active clopidogrel (Plavix) 75 mg tabletIndications:Co ronary artery disease without angina pectoris, unspecified vessel or lesion type, unspecified whether flandreau or transplanted heart TAKE ONE TABLET BY MOUTH EVERY MORNING 90 tablet 3 08/08/20 24 Active potassium chloride CR (Klor-Con M10) 10 mEq ER tabletIndications:Ch ronic systolic heart failure (CMS/HCC) TAKE ONE TABLET BY MOUTH EVERY MORNING DO NOT CHEW OR CRUSH 90 tablet 3 11/09/19 25 Active spironolactone (Aldactone) 25 mg tabletIndications:Ch ronic systolic heart failure (CMS/HCC) Take 1 tablet (25 mg) by mouth once daily as directed. 90 tablet 3 11/09/19 25 Active ivabradine (Corlanor) 5 mg tabletIndications:Ch ronic systolic heart failure (CMS/HCC) Take 1 tablet (5 mg) by mouth two times daily. 180 tablet 3 11/09/19 25 026 Active sacubitril-valsartan (Entresto) 49-51 mg tabletIndications:Ch ronic systolic congestive heart failure (CMS/HCC) Take 1 tablet by mouth two times daily. 180 tablet 3 12/03/19 25 026 Active Active Problems Problem Noted Date Diagnosed Date Generalized anxiety disorder 02/10/2023 Chronic systolic heart failure 07/04/2022 Assessment & Plan (01/12/2024 10:14 AM EDT): [facility] II-currently euvolemic without exacerbation, no activity limiting symptoms Continue GDMT-aspirin, Lipitor, Coreg, Jardiance, Entresto and Aldactone with Diuretic therapy of Lasix 40 mg daily Monitor daily weights, I&O, fluid restriction 1.5-2L/day, renal function and electrolytes- Assessment & Plan (02/10/2023 11:57 AM EDT): [facility]- II-III Continue GDMT- ASA, lipitor, crestor, coreg, jardiance and entresto Diuretic therapy- lasix 40 mg daily Monitor daily weights, I&O, fluid restriction 1.5-2L/day, renal function and electrolytes- Assessment & Plan (01/13/2023 12:48 PM EDT): [facility] II, currently volume overloaded and weight up 7 pounds Continue GDMT-Continue ASA, entresto, lipitor, coreg, plavix, jardiance and aldactone. Diuretic therapy-increase lasix to 40 mg daily and add KCL 10 meq daily Monitor daily weights, I&O, fluid restriction 1.5-2L/day, renal function and electrolytes- Assessment & Plan (11/30/2022 11:41 AM EDT): [facility] II, currently euvolemic without exacerbation- Continue GDMT- transition lisinopril to entresto- d/w pt to stop lisinopril and after 2 days she may start taking entresto- repeat BMP in 1 week to assess renal function. Continue ASA, lipitor, coreg, plavix, lasix, jardiance and aldactone. Diuretic therapy- lasix 20 mg daily Monitor daily weights, I&O, fluid restriction 1.5-2L/day, renal function and electrolytes- Chest pain 06/08/2022 ICD (implantable cardioverter-defibrillator), du al, in situ 05/25/2022 Assessment & Plan (11/30/2022 9:28 AM EDT): Device interrogation q 6 months Assessment & Plan (05/25/2022 1:33 PM EDT): Site well healed, incision without s/s of infection Mild swelling and soreness at site- d/w pt to continue OTC Tylenol as directed and apply ice to area prn for 20 min at a time. RTC 1 month for device interrogation Will confirm with Dr Santa regarding stopping of warfarin s/p resolution of LV thrombus noted on recent echo And if he want ASA 81 mg added to plavix. Acute non-ST segment elevation myocardial infarc tion 02/07/2022 Coronary arteriosclerosis 02/07/2022 Assessment & Plan (01/12/2024 10:13 AM EDT): Coronary artery disease is unchanged. Continue current medications. Cardiac status will be reassessed in 6 months. Continue goal-directed medical therapy with aspirin, Lipitor, Plavix, Coreg Assessment & Plan (02/10/2023 11:57 AM EDT): Coronary artery disease is stable Continue GDMT continue risk factor modifications- heart healthy diet, regular exercise as tolerated and continue all medications. Assessment & Plan (01/13/2023 12:49 PM EDT): Coronary artery disease is stable without concerning symptoms Continue GDMT Continue cardiac rehab and heart healthy diet Assessment & Plan (11/30/2022 11:37 AM EDT): Coronary artery disease is stable, no concerning symptoms continue risk factor modifications- heart healthy diet, regular exercise as tolerated and continue all medications. Hyperlipidemia 02/07/2022 Assessment & Plan (01/12/2024 7:06 AM EDT): Lipid abnormalities are unchanged, well controlled; PCP monitoring LFT. Pharmacotherapy as ordered. Lipids will be reassessed annually. Assessment & Plan (01/13/2023 12:49 PM EDT): Continue statin Assessment & Plan (11/30/2022 11:42 AM EDT): continue atorvastatin Left ventricular thrombus 02/07/2022 Assessment & Plan (01/12/2024 7:05 AM EDT): No thrombus noted on last 2 TTE Assessment & Plan (01/13/2023 12:49 PM EDT): Resolved on echo Assessment & Plan (11/30/2022 11:39 AM EDT): Warfarin has been stopped due to resolution of her left ventricular thrombus. Echocardiogram with Lumason contrast in August 2022 showed EF 25-30% with no LV thrombus off of warfarin therapy. Obesity 02/07/2022 Tobacco user 02/07/2022 Progressive avascular necrosis of lunate 022 Pain of joint of both hands 05/18/2021 Avascular necrosis of bone of wrist 02/01/2021 Benign hypertensive cardiomyopathy with heart fa ilure 02/01/2021 Assessment & Plan (01/12/2024 10:14 AM EDT): HTN is well-controlled with current med regimen and renal function stable Assessment & Plan (01/13/2023 12:46 PM EDT): HTN currently well controlled Continue current med regime Assessment & Plan (11/30/2022 11:42 AM EDT): HTN- stable and well controlled Psoriatic arthritis 12/01/2020 Resolved Problems Problem Noted Date Diagnosed Date Resolved Date Essential hypertension 02/07/202211/30 Encounters Date Type Department Care Team Description 01/15/2025 10:45 PM EDT Ancillary Procedure [facility] [place] [facility] [address] [place] [address] Pre-operative cardiovascular examination, ICD in place 01/15/2025 7:35 PM EDT Ancillary Procedure [facility] [address] [place] [address] Pre-operative cardiovascular examination, ICD in place 01/10/2025 Orders Only [facility] [address] [place] [phone] Alton Parks MD 01/07/2025 Orders Only [facility] [address] [place] [phone] Andriy Montes MD 12/11/2024 3:00 PM EDT Ancillary Procedure [facility] [address] [place] [address] Pre-operative cardiovascular examination, ICD in place 12/10/2024 Orders Only [facility] [address] [place] [address] Andriy Montes MD 12/02/2024 Refill [facility] [address] [place] [address] Roya Joaquin CNP Chronic systolic congestive heart failure ([facility]/HCC) 11/11/2024 6:35 PM EDT Ancillary Procedure [facility] [address] [place] [address] Pre-operative cardiovascular examination, ICD in place 11/08/2024 3:00 PM EDT Office Visit [facility] [address] [facility] [place] [address] Cole Santa MD Chronic systolic heart failure (CMS/HCC) (Primary Dx); Coronary artery disease involving flandreau coronary artery of flandreau heart without angina pectoris; History of myocardial infarction; Left ventricular thrombus; Status post insertion of drug eluting coronary artery stent; ICD (implantable cardioverter-defibrill ator), dual, in situ 11/07/2024 Refill [facility] [address] [facility] [place] [address] Roya Joaquin CNP Chronic systolic heart failure (CMS/HCC) from Last 3 Months Immunizations Immunization Administration Dates Next Due Influenza, seasonal, injecta ble, preservative free, 6 moonths & older 09/12/2016 Pneumococcal Polysaccharide PPV23 05/14/2014 Family History Medical History Relation Name Comments Heart attack Father aortic valve disorder Father pacemaker Father Atrial fibrillation Mother pacemaker Mother Relation Name Status Comments Father Mother Social History Tobacco Use Types Packs/Day Years Used Date Smoking Tobacco: Former Cigarettes 0 10/20/1987 - 10/19/2022 Smokeless Tobacco: Never Tobacco Cessation:Counseling Given: Not Answered Alcohol Use Standard Drinks/Week Comments Not Currently [...] Heterosexual or Straight 11/2021 6:36 AM EDT Last Filed Vital Signs Vital Sign Reading Time Taken Comments Blood Pressure 99/68 11/08/2024 3:10 PM EDT Pulse 70 11/08/2024 3:10 PM EDT Temperature 36.7 C (98 F) 06/11/2022 10:15 AM EDT Respiratory Rate 16 06/11/2022 10:15 AM EDT Oxygen Saturation 99% 11/08/2024 3:10 PM EDT Inhaled Oxygen Concentration - - Weight 62.6 kg (138 lb) 11/08/2024 3:10 PM EDT Height 147.3 cm (4' 10 ) 11/08/2024 3:10 PM EDT Body Mass Index 28.84 11/08/2024 3:10 PM EDT Plan of Treatment Upcoming Encounters Date Type Department Care Team (Late st Contact Info) Description 02/18/2025 2:00 PM EDT Ancillary Procedure [facility] [address] [place] [address] Health Maintenance Due Date Last Done Comments CT Colonography 1971 Colonoscopy 1971 Colorectal Cancer Screening 1971 FIT-DNA 1971 FIT 1971 FOBT 1971 Medicare Annual Wellness (AWV) 1971 Sigmoidoscopy 1971 Depression Screening 1983 Hepatitis B Vaccines (1 of 3 - 19+ 3-dose series) 1990 Pap Smear 01/25/1992 Cervical Cancer Screening 2001 HPV/Cotest 2001 Mammogram 2011 Pneumococcal Vaccine: Pediat rics (0 to 5 Years) and At-Risk Patients (6 to 64 Years) (2 of 2 - PCV) 05/14/2015 05/14/2014 Zoster Vaccines (1 of 2) 2021 COVID-19 Vaccine ( - 2023-2 5 season) 2024 Influenza Vaccine (Season Ended) 2025 09/12/19 17 Adult Tetanus 2034 01/25/2024 HIB Vaccines Aged Out No longer eligi ble based on patient's age to complete this topic HPV Vaccines Aged Out No longer eligi ble based on patient's age to complete this topic IPV Vaccines Aged Out No longer eligi ble based on patient's age to complete this topic Meningococcal B Vaccine Aged Out No l onger eligible based on patient's age to complete this topic Meningococcal Vaccine Aged Out No gaurav luis eligible based on patient's age to complete this topic Rotavirus Vaccines Aged Out No longer eligible based on patient's age to complete this topic Medical Devices Implanted Type Area Va Underwriter Device Identifier Shelf Expiration Date Model / Serial / Lot Matthew Salazar Df4-Dr - [id number] Implanted:Qty: 1 on 05/17/2022 by Alton Parks MD at [facility] ICD [employer] [id number] 05/12/2023 [id number] / [id number] / Ingevity+ Is-1 Bi Positive Fix Ra/Rv 52cm Implanted:Qty: 1 on 05/17/2022 by Alton Parks MD at [facility] Lead N/A: Chest [employer] 04/27/2024 [id number] / [id number] / [place] 4-Front S Active Fix Single Coil 59cm Implanted:Qty: 1 on 05/17/2022 by Alton Parks MD at [facility] Lead N/A: Chest [employer] 03/01/2024 [id number] / [id number] / Procedures Procedure Name Priority Date/Time Associated Diagnosis Comments CARDIAC DEVICE CHECK CHECK - REMOTE Routine 01/23/2025 1:52 PM EDT Pre-operative cardiovascular examination, ICD in place CARDIAC DEVICE CHECK CHECK - REMOTE Routine 01/23/2025 1:40 PM EDT Pre-operative cardiovascular examination, ICD in place CARDIAC DEVICE CHECK - REMOTE - ICD Routine 01/10/2025 12:00 AM EDT CARDIAC DEVICE CHECK - REMOTE - ICD Routine 01/07/2025 12:00 AM EDT CARDIAC DEVICE CHECK CHECK - REMOTE Routine 12/25/2024 10:49 AM EDT Pre-operative cardiovascular examination, ICD in place CARDIAC DEVICE CHECK - REMOTE - ICD Routine 12/10/2024 12:00 AM EDT CARDIAC DEVICE CHECK - REMOTE - ICD Routine 11/14/2024 1:33 PM EDT Pre-operative cardiovascular examination, ICD in place from Last 3 Months Results * CARDIAC DEVICE CHECK - REMOTE - ICD (01/23/2025 1:52 PM EDT) Only the most recent of4 resultswithin the time period is included. Alton Parks MD CV IMPLANTABLE CARDIAC DEVICE TX OCEDURES Final Result CPACS * Cardiac device check - Remote ICD (01/10/2025 12:00 AM EDT) Only the most recent of3 resultswithin the time period is included. Anatomical Region Laterality Modality Other 01/10/2025 us Alton Parks MD CV IMPLANTABLE CARDIAC DEVICE TX OCEDURES Final Result from Last 3 Months Insurance [employer] MEDICARE ADVANTAGE Advance Directives * Full Code (Latest Code Status on File) Date Activated Date Inactivated Comments 06/08/2022 3:46 PM 06/11/2022 1:47 PM Care Teams Continuity Person Relationship Specialty Start Date End Date Samia Rosales CNP [facility] [facility], [address] [place], [place] [id number] PCP - General Family Medicine 06/28/23
--- OUTSIDE RECORDS SUMMARY | 2025-01-31 07:47 | XMS_ITS | Encounter Summary ---
Author Organization [facility] Address [address] [facility] [place] [address] Care Team Providers Care Electric Sign Wirer Name Role Phone Samia Rosales CNP Primary Care Provider [phone] Encounter Details Date Type Department Care Team (Late st Contact Info) Description 01/07/2025 Orders Only [facility] [address] [place] [address] Andriy Montes MD [address] [place] [address] Social History Tobacco Use Types [...] 2:00 PM EDT Ancillary Procedure [facility] [address] [place] [address] documented as of this encounter Procedures Procedure Name Priority Date/Time Associated Diagnosis Comments CARDIAC DEVICE CHECK - REMOTE - ICD Routine 01/07/2025 12:00 AM EDT documented in this encounter Results * Cardiac device check - Remote ICD (01/07/2025 12:00 AM EDT) Anatomical Region Laterality Modality Other 01/07/2025 us Andriy Montes MD CV IMPLANTABLE CARDIAC DEVICE PROCEDURES Final Result documented in this encounter Visit Diagnoses Not on filedocumented in this encounter Care Teams Electric Sign Wirer Relationship Specialty Start Date End Date Samia Rosales CNP [facility], [facility] [place] [address] PCP - General Family Medicine 06/28/23 documented as of this encounter
--- OUTSIDE RECORDS SUMMARY | 2025-01-31 07:47 | XMS_ITS | Encounter Summary ---
Author Organization [facility] Address [address] [facility] [place] [address] Care Team Providers Care Returns Supervisor Name Role Phone Samia Rosales CNP Primary Care Provider [phone] Encounter Details Date Type Department Care Team (Late st Contact Info) Description 12/10/2024 Orders Only [facility] [address] [place] [address] Andriy Montes MD [address] [place] [address] Social History Tobacco Use Types [...] Description 02/18/2025 2:00 PM EDT Ancillary Procedure [facility] [address] [place] [address] documented as of this encounter Procedures Procedure Name Priority Date/Time Associated Diagnosis Comments CARDIAC DEVICE CHECK - REMOTE - ICD Routine 12/10/2024 12:00 AM EDT documented in this encounter Results * Cardiac device check - Remote ICD (12/10/2024 12:00 AM EDT) Anatomical Region Laterality Modality Other 12/10/2024 us Andriy Montes MD CV IMPLANTABLE CARDIAC DEVICE PROCEDURES Final Result documented in this encounter Visit Diagnoses Not on filedocumented in this encounter Care Teams Returns Supervisor Relationship Specialty Start Date End Date Samia Rosales CNP [facility], [facility] [address] PCP - General Family Medicine 06/28/23 documented as of this encounter
--- OUTSIDE RECORDS SUMMARY | 2025-01-31 07:47 | XMS_ITS | Referral Summary ---
Author Organization [facility] [place] [address] Care Team Providers Care Guide Dog Trainer Name Role Phone Samia Rosales CNP Primary Care Provider [phone] Encounters Date Type Department Care Team Description 01/15/2025 7:35 PM EDT Ancillary Procedure [facility] [address] [place] [address] Pre-operative cardiovascular examination, ICD in place 01/15/2025 10:45 PM EDT Ancillary Procedure [facility] [address] [place] [address] Pre-operative cardiovascular examination, ICD in place 01/10/2025 Orders Only [facility] [address] [place] [address] Alton Parks MD 01/07/2025 Orders Only [facility] [address] [place] [address] Andriy Montes MD 12/11/2024 3:00 PM EDT Ancillary Procedure [facility] [address] [place] [address] Pre-operative cardiovascular examination, ICD in place 12/10/2024 Orders Only [facility] [address] [facility] [place] [address] Andriy Montes MD 12/02/2024 Refill [facility] [address] [place] [facility] [place] [address] Roya Joaquin CNP Chronic systolic congestive heart failure (CMS/HCC) 11/11/2024 6:35 PM EDT Ancillary Procedure [facility] [address] [place] [address] Pre-operative cardiovascular examination, ICD in place 11/08/2024 3:00 PM EDT Office Visit [facility] [address] [place] [facility] [place] [address] Cole Santa MD Chronic systolic heart failure (CMS/HCC) (Primary Dx); Coronary artery disease involving morongo coronary artery of morongo heart without angina pectoris; History of myocardial infarction; Left ventricular thrombus; Status post insertion of drug eluting coronary artery stent; ICD (implantable cardioverter-defibrill ator), dual, in situ 11/07/2024 Refill [facility] [address] [place] [facility] [place] [address] Roya Joaquin CNP Chronic systolic heart failure (CMS/HCC) from Last 3 Months Allergies Active Allergy Reactions Criticality Noted Date [...] unspecified vessel or lesion type, unspecified whether morongo or transplanted heart TAKE 1 TABLET BY MOUTH AT BEDTIME 90 tablet 3 08/08/20 24 Active clopidogrel (Plavix) 75 mg tabletIndications:Co ronary artery disease without angina pectoris, unspecified vessel or lesion type, unspecified whether morongo or transplanted heart TAKE ONE TABLET BY [...] Assessment & Plan (01/12/2024 10:14 AM EDT): [facility] II-currently euvolemic without exacerbation, no activity limiting symptoms Continue GDMT-aspirin, Lipitor, Coreg, Jardiance, Entresto and Aldactone with Diuretic therapy of Lasix 40 mg daily Monitor daily weights, I&O, fluid restriction 1.5-2L/day, renal function and electrolytes- Assessment & Plan (02/10/2023 11:57 AM EDT): [facility]- II-III Continue GDMT- ASA, lipitor, crestor, coreg, jardiance and entresto Diuretic therapy- lasix 40 mg daily Monitor daily weights, I&O, fluid restriction 1.5-2L/day, renal function and electrolytes- Assessment & Plan (01/13/2023 12:48 PM EDT): [facility] II, currently volume overloaded and weight up 7 pounds Continue GDMT-Continue ASA, entresto, lipitor, coreg, plavix, jardiance and aldactone. Diuretic therapy-increase lasix to 40 mg daily and add KCL 10 meq daily Monitor daily weights, I&O, fluid restriction 1.5-2L/day, renal function and electrolytes- Assessment & Plan (11/30/2022 11:41 AM EDT): [facility] II, currently euvolemic without exacerbation- Continue GDMT- [...] Diagnosed Date Resolved Date Essential hypertension 02/07/202211/30 Immunizations Immunization Administration Dates Next Due Influenza, seasonal, injecta ble, preservative free, 6 moonths & older 09/12/2016 Pneumococcal Polysaccharide PPV23 05/14/2014 Social History Tobacco Use Types Packs/Day Years [...] Description 02/18/2025 2:00 PM EDT Ancillary Procedure [facility] [address] [place] [address] Medical Devices Implanted Type Area Architectural Renderer Device Identifier Shelf Expiration Date Model / Serial / Lot Matthew Salazar Df4-Dr - [id number] Implanted:Qty: 1 on 05/17/2022 by Alton Parks MD at [facility] ICD [employer] [id number] 05/12/2023 [id number] / [id number] / Ingevity+ Is-1 Bi Positive Fix Ra/Rv 52cm Implanted:Qty: 1 on 05/17/2022 by Alton Parks MD at [facility] Lead N/A: Chest [employer] 04/27/2024 [id number] / [id number] / [place] 4-Front S Active Fix Single Coil 59cm Implanted:Qty: 1 on 05/17/2022 by Alton Parks MD at [facility] Lead N/A: Chest [employer] 03/01/2024 [id number] / [id number] / Procedures Procedure Name Priority Date/Time Associated [...] of4 resultswithin the time period is included. us Alton Parks MD CV IMPLANTABLE CARDIAC DEVICE MA OCEDURES Final Result CPACS * Cardiac device check - Remote ICD (01/10/2025 12:00 AM EDT) Only the most recent of3 resultswithin the time period is included. Anatomical Region Laterality Modality Other 01/10/2025 Alton Parks MD CV IMPLANTABLE CARDIAC DEVICE MA OCEDURES Final Result from Last 3 Months Insurance [facility] [place] [id number] Advance Directives * Full Code (Latest Code Status on File) Date Activated Date Inactivated Comments 06/08/2022 3:46 PM 06/11/2022 1:47 PM Care Teams Guide Dog Trainer Relationship Specialty Start Date End Date Samia Rosales CNP [facility] [facility], [address] [place], [place] [id number] PCP - General Family Medicine 06/28/23
--- OUTSIDE RECORDS SUMMARY | 2025-01-31 07:51 | XMS_ITS | CCD ---
Author Organization [facility] Informat ion Partnership [facility] Care Team Providers Care Coil Taper Name Role Phone RAFI BISWAS Attending Unavailable [...] PARKS Attending Unavailable ALTON PARKS Admitting Unavailable BEOB, DR NOLAN Philippe Admitting Unavailabl e BEBO, DR NOLAN Philippe Attending Unavailabl e MISC, DR PALOMARES Primary Care Unavailable BEBO, DR NOLAN Philippe Consulting Unavailabl e MELODIE ., MEREDITH MEMBRENO Consulting Unavailabl e KIRA .AHSMUKH Attending Unavailable HASMUKH HILTON Admitting Unavailable VALDEZ, NIKKI Primary Care Unavailable MARY ROJAS Consulting Unavailable MOUKARBEL, DR SHAFFER Admitting Unavailable MOUKARBEL, DR SHAFFER Attending Unavailable VALDEZ, [facility] Primary Care Unavailable MOUKARBEL, DR SHAFFER Consulting Unavailable VALDEZ, [facility] Primary Care Unavailable MOUKARBEL, DR SHAFFER [...] DELL Referring Unavailable OWEN, DELL Referring Unavailable BAILEY, ALTON Referring Unavailable BAILEY, ALTON Referring Unavailable MOUKARBEL, DEENA Attending Unavailable BAILEY, ALTON Referring Unavailable BAILEY, ALTON Referring Unavailable BAILEY, ALTON Referring Unavailable MOUKARBEL, DEENA Attending Unavailable BAILEY, ALTON Referring Unavailable BAILEY, ALTON Referring Unavailable BAILEY, ALTON Referring Unavailable BAILEY, ALTON Referring Unavailable BAILEY, ALTON Referring Unavailable OWEN, DELL Referring Unavailable OWEN, DELL Referring Unavailable OWEN, DELL Referring Unavailable BAILEY, ALTON Referring Unavailable Allergies Allergy Classification Reported Allergen(s) Allergy Type Date of Onset Reaction(s) Facility (1 source) AVELOX IN NACL (ISO-OSMOTIC); Translations: [AVELOX IN NACL (ISO-OSMOTIC)] Propensity to adverse reactions (disorder) 1 [facility] Repository (4 sources) moxifloxacin; Translations: [Avelox] Drug Allergy [place] [address] DO Work Phone: (3 sources) moxifloxacin; Translations: [moxifloxacin] Drug Allergy 2 [facility] (1 source) moxifloxacin Drug Allergy 3 [facility] Repository (1 source) Chlorhexidine; Translations: [CHLORHEXIDINE GLUCONATE] Drug Allergy 0 [facility] Repository Medications Current Medications Medication Drug Class(es) Dates Sig (Normalized) Sig (Original) [id number] 200 actuat albuterol 0.09 mg/actuat metered dose [...] 2022 1:49pm take 1 capsule by mo uth three times daily as needed Benzonatate 200 [...] 2022 6:58pm take 1 capsule by mo uth once daily before breakfast Levothyroxine Sodium 137 MCG Oral Capsul e TAKE 1 CAPSULE BY MOUTH EVERY MORNING BEFORE BREAKFAST ON EMPTY STOMACH Quantity: 0 Refills: 0 Ordered: 6-Shahzad-2022 DO Active lisinopril 2.5 mg oral tablet [...] MG Oral Tablet Take as directed by [facility] Quantity: 0 Refills: 0 Ordered: 18-Jan-2022 DO [...] sources) Coronary arteriosclerosis; Translations: [Coronary atherosclerosis of [place] coronary artery] Onset: 02-02-2022 Chronic Diabetes mellitus without complication (1 source) Type 2 diabetes mellitus without complications; Translations: [TYPE 2 DM WITHOUT COMPLICATIONS] Onset: 06-07-2022 Chronic Disorders of lipid metabolism (4 sources) Hyperlipidemia; Translations: [Hyperlipidemia, unspecified] Onset: 01-10-2022 01-10-2022 Chronic Essential hypertension (4 sources) Essential hypertension; Translations: [Essential (primary) hypertension] Onset: 01-10-2022 01-10-2022 Chronic Nonspecific chest pain (4 sources) Other [...] (4 sources) Obesity; Translations: [Obesity, unspecified] Chronic Screening and history of mental health [...] 02-28-2022 Episodic Other aftercare (1 source) 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; Translations: [OTH SENIOR CARE CURRENT DRUG THERAPY] Onset: 06-07-2022 Episodic Other aftercare (4 sources) Encounter for therapeutic drug level monitoring; Translations: [ENC THERAPEUTC DRUG LEVL MONITORING] Onset: 05-15-2022 Episodic Other aftercare (1 source) 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; Translations: [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 USE ANTICOAGULANTS] Onset: 06-14-2022 Episodic Other [...] Value Interpretation Reference Range Facility Office Visiton 11-08-2024 Follow-up visit [id number] Javier Link 1970 F Date Provider Department Center 11/08/2024 DEENA GARCIA HETAL Fine Family History Problem Relation Age of Onset Atrial fibrillation Mother Other Mother Heart attack Father Other Father Other Father Family Status - Relation Status Age at Mother Father Level of Service:04523 SD OFFICE/OUTPATIENT ESTABLISHED MOD MDM 30 MIN Normal [facility] 36on 10-25-2024 36 Pt informed and labs sent Normal [facility] 36on 09-26-[address] Benton regarding lab results from today: MD Danielle Walters MA Her blood testing is very good. This is reassuring. No further recommendations at this time. Patient made aware. [facility] 36 Spoke with patient and her BP last night before bed was 110 systolic. This morning she feels well but BP is 89/50. That was BP prior to morning medications. She will come today for labs. [facility] 36on 09-25-2024 36 Patient was at cardiac rehab this morning and BP was 90/60 prior to exercise. She told the staff she felt lightheaded and thinks she may have passed out yesterday. After exercise her BP came up to 120/60. I spoke with her to confirm her current BP meds and she told me she's been taking a few extra lasix tablets (20mg) because she's felt like there's fluid buildup in her chest. She's taking: Lasix 20mg every day Entresto 49/51mg bid Aldactone 25mg every day Carvedilol 12.5mg bid I told her to make sure to stay hydrated and keep track of BP's at home. Is there anything you need for her at this time? Please advise. Thanks. [facility] 36on 09-06-2024 36 Regarding echo resul t from 08/02/2024: MD Danielle Walters MA Her echo did not show clot in the heart. Same treatment and follow up as planned. Patient notified. [facility] Office Visiton 07-08-2024 Follow-up visit [id number] Javier Link 1970 F Date Provider Department Center 07/08/2024 Krystal-DEENA BENTON [facility] Family History Problem Relation Age of Onset Atrial fibrillation Mother Other Mother Heart attack Father Other Father Other Father Family Status - Relation Status Age at Mother Father Level of Service:18000 SD OFFICE/OUTPATIENT ESTABLISHED MOD MDM 30 MIN [facility] PROF CHEM 8 (BAS METB)on Anion gap [Moles/Vol] 14.8 mmol/L Normal [facility] Comment on above: Performed By: #### C #### [facility] [address] [place] [address] Dr. Vangie Devine Calcium [Mass/Vol] 8.9 mg/dL Normal 8.5-10.1 [facility] Comment on above: Performed By: #### C BC #### [facility] [address] [place] [address] Dr. Vangie Devine Chloride [Moles/Vol] 101 mmol/L Normal 98-107 [facility] Comment on above: Performed By: #### C BC #### [facility] [address] [address] [address] Vangie Devine CO2 [Moles/Vol] 25.9 mmol/L Normal 21.0-32.0 [facility] Comment on above: Performed By: #### C BC #### [facility] [address] [place] [address] Dr. Vangie Devine Creatinine [Mass/Vol] 0.91 mg/dL Normal 0.55-1.02 [facility] Comment on above: Performed By: #### C BC #### [facility] [address] [place] [address] Dr. Vangie Devine EGFR-AF SWEDISH >60 Normal >=60 [facility] Comment on above: Performed By: #### C BC #### [facility] [address] [place] [address] Dr. Vangie Devine EGFR-NON AF SWEDISH >60 Normal >=60 [facility] Comment on above: Performed By: #### C BC #### [facility] [address] [place] [address] Dr. Vangie Devine Glucose [Mass/Vol] 93 mg/dL Normal 74-106 [facility] Comment on above: Performed By: #### C BC #### [facility] [address] [place] [address] Dr. Vangie Devine Potassium [Moles/Vol] 4.7 mmol/L Normal 3.5-5.1 [facility] Comment on above: Performed By: #### C BC #### [facility] [address] [place] [address] Dr. Vangie Devine Sodium [Moles/Vol] 137 mmol/L Normal 136-145 [facility] Comment on above: Performed By: #### C BC #### [facility] [address] [address] [address] Vangie Devine Urea nitrogen [Mass/Vol] 9.0 mg/dL Normal 7.0-18.0 [facility] Comment on above: Performed By: #### C BC #### [facility] [address] [address] [address] Vangie Devine Urea nitrogen/Creatinine [Mass ratio] 9.9 mg/mg Normal [facility] Comment on above: Performed By: #### C BC #### [facility] [address] [place] [address] Dr. Vangie Devine PROF CHEM 8 (BAS METB)on Anion gap [Moles/Vol] 15.6 mmol/L Normal [facility] Comment on above: Performed By: #### P TT, PT #### [facility] [address] [place] [address] Dr. Vangie Devine Calcium [Mass/Vol] 8.9 mg/dL Normal 8.5-10.1 [facility] Comment on above: Performed By: #### P TT, PT #### [facility] [address] [place] [address] Dr. Vangie Devine Chloride [Moles/Vol] 101 mmol/L Normal 98-107 [facility] Comment on above: Performed By: #### P TT, PT #### [facility] [address] [place] [address] Dr. Vangie Devnie CO2 [Moles/Vol] 24.7 mmol/L Normal 21.0-32.0 [facility] Comment on above: Performed By: #### P TT, PT #### [facility] [address] [place] [address] Dr. Vangie Devine Creatinine [Mass/Vol] 0.95 mg/dL Normal 0.55-1.02 [facility] Comment on above: Performed By: #### P TT, PT #### [facility] [address] [place] [address] Dr. Vangie Devine EGFR-AF SWEDISH >60 Normal >=60 [facility] Comment on above: Performed By: #### P TT, PT #### [facility] [address] [place] [address] Dr. Vangie Devine EGFR-NON AF SWEDISH >60 Normal >=60 [facility] Comment on above: Performed By: #### P TT, PT #### [facility] [address] [address] [address] Vangie Devine Glucose [Mass/Vol] 101 mg/dL Normal 74-106 [facility] Comment on above: Performed By: #### P TT, PT #### [facility] [address] [address] [address] Vangie Devine Potassium [Moles/Vol] 4.3 mmol/L Normal 3.5-5.1 [facility] Comment on above: Performed By: #### P TT, PT #### [facility] [address] [address] [address] Vangie Devine Sodium [Moles/Vol] 137 mmol/L Normal 136-145 [facility] Comment on above: Performed By: #### P TT, PT #### [facility] [address] [address] [address] Vangie Devine Urea nitrogen [Mass/Vol] 15.0 mg/dL Normal 7.0-18.0 [facility] Comment on above: Performed By: #### P TT, PT #### [facility] [address] [place] [address] Dr. Vangie Devine Urea nitrogen/Creatinine [Mass ratio] 15.8 mg/mg Normal [facility] Comment on above: Performed By: #### P TT, PT #### [facility] [address] [address] [address] Vangie Devine NM STRESS/REST MULTIon 10-31 NM STRESS/REST MULTI Patient: JAVIER LINK Exam Date: 10/31/2022 : 1970 Gender:F Ordering : DR DEENA BENTON M.D. Admission #: [id number] Family : Order #: [id number] CLICK HERE TO VIEW EXAM RADIOLOGY REPORT [...] on 10/31/2022 at 14:45 Normal [facility] FREE THYROXINE INDEX T7on FTI 4.83 Critically high 1.30-4.50 [facility] Comment on above: Performed By: #### C BC #### [facility] [address] [address] [address] Vangie Devine T3U 35.0 % Normal 30.0-39.0 [facility] Comment on above: Performed By: #### C BC #### [facility] [address] [place] [address] Dr. Vangie Devine T4 [Mass/Vol] 13.80 ug/dL Normal 4.80-13.90 [facility] Comment on above: Performed By: #### C BC #### [facility] [address] [place] [address] Dr. Vangie Devine TSHon 07-20-2022 TSH 0.051 uIU/mL Critically low 0.358-3.740 [facility] Comment on above: Performed By: #### C BC #### [facility] [address] [place] [address] Dr. Vangie Devine ACETONE SERUMon 06-03-2022 ACETONE Negative Normal NEGATIVE [facility] Comment on above: Performed By: #### C JANNETTEMAN #### [facility] [address] [place] [address] Dr. Vagnie Devine CBC AUTO DIFFon 06-03-2022 BASO # 0.1 103/ul Normal 0.0-0.1 [facility] Comment on above: Performed By: #### C JANNETTEMAN #### [facility] [address] [place] [address] Dr. Vangie Devine Basophils/100 WBC (Bld) 0.6 % Normal 0.2-2.0 [facility] Comment on above: Performed By: #### C BCMAN #### [facility] [address] [place] [address] Dr. Vangie Devine EO # 0.3 103/ul Normal 0.0-0.7 [facility] Comment on above: Performed By: #### C BCMAN #### [facility] [address] [place] [address] Dr. Vangie Devine Eosinophils/100 WBC (Bld) 1.4 % Normal 0.9-7.0 [facility] Comment on above: Performed By: #### C JANNETTEMAN #### [facility] [address] [place] [address] Dr. Vangie Devine Erythrocyte distribution width (RBC) [Ratio] 13.2 % Normal 11.0-15.0 [facility] Comment on above: Performed By: #### C JOBY #### [facility] [address] [place] [address] Dr. Vangie Devine Hematocrit (Bld) [Volume fraction] 44.8 % Normal 36.0-48.0 [facility] Comment on above: Performed By: #### C JOBY #### [facility] [address] [place] [address] Dr. Vangie Devine Hemoglobin (Bld) [Mass/Vol] 15.0 g/dL Normal 12.0-16.0 [facility] Comment on above: Performed By: #### C JOBY #### [facility] [address] [place] [address] Dr. Vangie Devine IG # 0.06 10e3/ul Critically high 0.00-0.03 [facility] Comment on above: Performed By: #### C JOBY #### [facility] [address] [place] [address] Dr. Vangie Devine IG % 0.3 % Normal 0.0-0.5 [facility] Comment on above: Performed By: #### C JOBY #### [facility] [address] [place] [address] Dr. Vangie Devine LYMPH # 3.5 103/ul Normal 1.2-3.8 [facility] Comment on above: Performed By: #### C JOBY #### [facility] [address] [place] [address] Dr. Vangie Devine Lymphocytes/100 WBC (Bld) 19.8 % Critically low 20.5-60.0 [facility] Comment on above: Performed By: #### C JOBY #### [facility] [address] [place] [address] Dr. Vangie Devine MANUAL DIFF REQ NO Normal [facility] Comment on above: Performed By: #### C JOBY #### [facility] [address] [place] [address] Dr. Vangie Devine MCH (RBC) [Entitic mass] 31.1 pg Normal 26.7-34.0 [facility] Comment on above: Performed By: #### C JOBY #### [facility] [address] [place] [address] Dr. Vangie Devine MCHC (RBC) [Mass/Vol] 33.5 g/dL Normal 29.9-35.2 [facility] Comment on above: Performed By: #### C JOBY #### [facility] [address] [place] [address] Dr. Vangie Devine MCV (RBC) [Entitic vol] 92.8 fL Normal 81.0-99.0 [facility] Comment on above: Performed By: #### C JOBY #### [facility] [address] [place] [address] Dr. Vangie Devine MONO # 1.1 103/ul Critically high 0.3-0.8 [facility] Comment on above: Performed By: #### C JOBY #### [facility] [address] [place] [address] Dr. Vangie Devine Monocytes/100 WBC (Bld) 6.0 % Normal 1.7-12.0 [facility] Comment on above: Performed By: #### C JOBY #### [facility] [address] [place] [address] Dr. Vangie Devine NEUT # 12.6 103/ul Critically high 1.4-6.5 [facility] Comment on above: Performed By: #### C JOBY #### [facility] [address] [place] [address] Dr. Vangie Devine Neutrophils/100 WBC (Bld) 71.9 % Normal 43.0-75.0 [facility] Comment on above: Performed By: #### C JOBY #### [facility] [address] [place] [address] Dr. Vangie Devine Platelet mean volume (Bld) [Entitic vol] 11.0 fL Normal 9.5-13.5 [facility] Comment on above: Performed By: #### C JOBY #### [facility] [address] [place] [address] Dr. Vangie Devine PLT 179 103/ul Normal 150-450 [facility] Comment on above: Performed By: #### C JOBY #### [facility] [address] [place] [address] Dr. Vangie Devine RBC 4.83 106/ul Normal 4.20-5.40 [facility] Comment on above: Performed By: #### C JOBY #### [facility] [address] [place] [address] Dr. Vangie Devine WBC 17.5 103/ul Critically high 4.0-11.0 [facility] Comment on above: Performed By: #### C JOBY #### [facility] [address] [place] [address] HEAD WO CONon [...] ROJAS Date: 2022-06-03 19:15 Normal [facility] CULTURE URINEon 06-03-2022 CULTURE URINE Culture Observations : NO GROWTH. Normal [facility] Comment on above: Performed By: #### P TT, PT #### [facility] [address] [place] [address] Dr. Vangie Devine [facility] SARS-CoV-2 (COVID-19) RNA SAMIR+probe Ql (Unsp spec) Not detected Normal NOT DETECTED [facility] Comment on above: Result Comment: When diagnostic [...] for this test is supported by the [place] of Health and Human Service's declaration that [...] Performed By: #### C BCMAN #### [facility] [address] [place] [address] Dr. Vangie Devine ER URINE PROFILEon Bilirubin Ql (U) Negative Normal NEGATIVE [facility] Comment on above: Performed By: #### C BC #### [facility] [address] [place] [address] Dr. Vangie Devine Clarity (U) CLEAR Normal CLEAR [facility] Comment on above: Performed By: #### C BC #### [facility] [address] [place] [address] Dr. Vangie Devine Color (U) LT. YELLOW Normal YELLOW [facility] Comment on above: Performed By: #### C BC #### [facility] [address] [place] [address] Dr. Vangie MCCAULEY A micrscopic examination will be performed if indicated. Normal [facility] Comment on above: Performed By: #### C BC #### [facility] [address] [place] [address] Dr. Vangie Devine Glucose Ql (U) 250 mg/dl Abnormal NEGATIVE [facility] Comment on above: Performed By: #### C BC #### [facility] [address] [place] [address] Dr. Vangie Devine Hemoglobin Ql (U) Negative Normal NEGATIVE [facility] Comment on above: Performed By: #### C BC #### [facility] [address] [place] [address] Dr. Vangie Devine Ketones Ql (U) Negative Normal NEGATIVE [facility] Comment on above: Performed By: #### C BC #### [facility] [address] [place] [address] Dr. Vangie Devine LEUKOCYTES Negative Normal NEGATIVE [facility] Comment on above: Performed By: #### C BC #### [facility] [address] [place] [address] Dr. Vangie Devine Nitrite Ql (U) Positive Abnormal NEGATIVE [facility] Comment on above: Performed By: #### C BC #### [facility] [address] [place] [address] Dr. Vangie Devine pH (U) 6.0 [pH] Normal 5-9 [facility] Comment on above: Performed By: #### C BC #### [facility] [address] [place] [address] Dr. Vangie Devine SPEC GRAVITY <=1.005 Abnormal 1.005-<=1.025 [facility] Comment on above: Performed By: #### C BC #### [facility] [address] [place] [address] Dr. Vangie Devine UA PROTEIN Negative Normal NEGATIVE/ TRACE [facility] Comment on above: Performed By: #### C BC #### [facility] [address] [place] [address] Dr. Vangie Devine UR MICRO IND INDICATED Normal [facility] Comment on above: Performed By: #### C BC #### [facility] [address] [place] [address] Dr. Vangie Devine Urobilinogen Qn (U) 0.2 {Jewel'U}/dL Normal 0.2 - 1. 0 [facility] Comment on above: Performed By: #### C BC #### [facility] [address] [place] [address] Dr. Vangie Devine FREE T3on 06-03-2022 FREE T3 2.42 pg/mlL Normal 2.18-3.98 [facility] Comment on above: Performed By: #### F T3 #### [facility] [address] [address] [address] Vangie Devine FREE T4on 06-03-2022 Free T4 [Mass/Vol] 1.93 ng/dL Critically high 0.76-1.46 [facility] Comment on above: Performed By: #### C BCMAN #### [facility] [address] [place] [address] Dr. Vangie Devine LACTATE/LACTIC ACIDon 2021 Lactate [Moles/Vol] 1.2 mmol/L Normal 0.4-1.9 [facility] Comment on above: Performed By: #### C BCMAN #### [facility] [address] [place] [address] Dr. Vangie Devine PROF 14(COMP METB)on 022 Albumin [Mass/Vol] 3.9 g/dL Normal 3.4-5.0 [facility] Comment on above: Performed By: #### H STROPN, TSH, CMP #### [facility] [address] [place] [address] Dr. Vangie Devine Albumin/Globulin [Mass ratio] 0.9 {ratio} Normal [facility] Comment on above: Performed By: #### H STROPN, TSH, CMP #### [facility] [address] [place] [address] Dr. Vangie Devine ALP [Catalytic activity/Vol] 138 U/L Critically high 46-116 [facility] Comment on above: Performed By: #### H STROPN, TSH, CMP #### [facility] [address] [place] [address] Dr. Vangie Devine ALT [Catalytic activity/Vol] 24 U/L Normal 14-59 [facility] Comment on above: Performed By: #### H STROPN, TSH, CMP #### [facility] [address] [address] [address] Vangie Devine Anion gap [Moles/Vol] 11.4 mmol/L Normal [facility] Comment on above: Performed By: #### H STROPN, TSH, CMP #### [facility] [address] [address] [address] Vangie Devine AST [Catalytic activity/Vol] 23 U/L Normal 15-37 [facility] Comment on above: Performed By: #### H STROPN, TSH, CMP #### [facility] [address] [address] [address] Vangie Devine Bilirubin [Mass/Vol] 0.5 mg/dL Normal 0.2-1.0 [facility] Comment on above: Performed By: #### H STROPN, TSH, CMP #### [facility] [address] [place] [address] Dr. Vangie Devine Calcium [Mass/Vol] 9.5 mg/dL Normal 8.5-10.1 [facility] Comment on above: Performed By: #### H STROPN, TSH, CMP #### [facility] [address] [address] [address] Vangie Devine Chloride [Moles/Vol] 98 mmol/L Normal 98-107 [facility] Comment on above: Performed By: #### H STROPN, TSH, CMP #### [facility] [address] [address] [address] Vangie Devine CO2 [Moles/Vol] 25.3 mmol/L Normal 21.0-32.0 [facility] Comment on above: Performed By: #### H STROPN, TSH, CMP #### [facility] [address] [address] [address] Vangie Devine Creatinine [Mass/Vol] 0.90 mg/dL Normal 0.55-1.02 [facility] Comment on above: Performed By: #### H STROPN, TSH, CMP #### [facility] [address] [address] [address] Vangie Devine EGFR-AF SWEDISH >60 Normal >=60 [facility] Comment on above: Performed By: #### H STROPN, TSH, CMP #### [facility] [address] [place] [address] Dr. Vangie Devine EGFR-NON AF SWEDISH >60 Normal >=60 [facility] Comment on above: Performed By: #### H STROPN, TSH, CMP #### [facility] [address] [address] [address] Vangie Devine Globulin (S) [Mass/Vol] 4.2 g/dL Normal [facility] Comment on above: Performed By: #### H STROPN, TSH, CMP #### [facility] [address] [place] [address] Dr. Vangie Devine Glucose [Mass/Vol] 93 mg/dL Normal 74-106 [facility] Comment on above: Performed By: #### H STROPN, TSH, CMP #### [facility] [address] [place] [address] Dr. Vangie Devine Potassium [Moles/Vol] 3.7 mmol/L Normal 3.5-5.1 [facility] Comment on above: Performed By: #### H STROPN, TSH, CMP #### [facility] [address] [place] [address] Dr. Vangie Devine Protein [Mass/Vol] 8.1 g/dL Normal 6.4-8.2 [facility] Comment on above: Performed By: #### H STROPN, TSH, CMP #### [facility] [address] [place] [address] Dr. Vangie Devine Sodium [Moles/Vol] 131 mmol/L Critically low 136-145 [facility] Comment on above: Performed By: #### H STROPN, TSH, CMP #### [facility] [address] [place] [address] Dr. Vangie Devine Urea nitrogen [Mass/Vol] 14.0 mg/dL Normal 7.0-18.0 [facility] Comment on above: Performed By: #### H STROPN, TSH, CMP #### [facility] [address] [place] [address] Dr. Vangie Devine Urea nitrogen/Creatinine [Mass ratio] 15.6 mg/mg Normal [facility] Comment on above: Performed By: #### H STROPN, TSH, CMP #### [facility] [address] [place] [address] Dr. Vangie Devine PROTIMEon 06-03-2022 INR Coag (PPP) [Relative time] 1.06 {INR} Normal [facility] Comment on above: Performed By: #### C JANNETTEMAN #### [facility] [address] [place] [address] Dr. Vangie Devine INR GUIDELINES SEE BELOW Normal [facility] Comment on above: Result Comment: MARY ANN RED INR: 2.0 - 3.0 CONDITIONS NOT LISTED BELOW 2.5 - 3.5 FOR PROSTHETIC HEART VALVE REPLACEMENT 2.5 - 3.5 RECURRENT THROMBOSIS Performed By: #### C JOBY #### [facility] [address] [place] [address] Dr. Vangie Devine PT Coag (PPP) [Time] 11.4 s Normal 9.0-11.6 [facility] Comment on above: Performed By: #### C JOBY #### [facility] [address] [place] [address] Dr. Vangie Devine PTTon 06-03-2022 aPTT Coag (Bld) [Time] 31.3 s Normal 22.3-36.2 [facility] Comment on above: Performed By: #### C JOBY #### [facility] [address] [place] [address] Dr. Vangie Devine TROPONIN, HIGH SENSITIVITYon 06-03-2022 HSTROP 26.3 pg/mL Normal 4.0-51.3 [facility] Comment on above: Result Comment: CUT- OFF POINTS HAVE BEEN ESTABLISHED BASED ON THE FOURTH UNIVERSAL DEFINITIONS OF MYOCARDIAL INFARCTION. THE UPPER REFERENCE LIMIT (URL) OF TROPONIN, DEFINED THE 99TH PERCENTILE OF cTnI DISTRIBUTION IN A REFERENCE POPULATION, HAS BEEN CONFIRMED THE DECISION THRESHOLD FOR UT DIAGNOSIS. Performed By: #### P TT, PT #### [facility] [address] [place] [address] Dr. Vangie Deivne TSHon 06-03-2022 TSH 0.150 uIU/mL Critically low 0.358-3.740 [facility] Comment on above: Performed By: #### P TT, PT #### [facility] [address] [place] [address] Dr. Vangie Devine URINE MICROSCOPIC ONLYon BACTERIA TRACE Abnormal NONE SEEN [facility] Comment on above: Performed By: #### C BC #### [facility] [address] [place] [address] Dr. Vangie Devine Bacteria identified Cx Nom (U) INDICATED Normal [facility] Comment on above: Result Comment: dory cated due to positive nitrite Performed By: #### C BC #### [facility] [address] [place] [address] Dr. Vangie Devine CAST NONE SEEN Normal NONE SEEN [facility] Comment on above: Performed By: #### C BC #### [facility] [address] [place] [address] Dr. Vangie Devine Crystals LM Nom (Urine sed) NONE SEEN Normal NONE SEEN [facility] Comment on above: Performed By: #### C BC #### [facility] [address] [place] [address] Dr. Vangie Devine Epithelial cells LM Ql (Urine sed) RARE Normal NONE SEEN /RARE [facility] Comment on above: Performed By: #### C BC #### [facility] [address] [place] [address] Dr. Vangie Devine MUCOUS NONE SEEN Normal NONE SEEN [facility] Comment on above: Performed By: #### C BC #### [facility] [address] [place] [address] Dr. Vangie Devine RBC 0-2 Normal 0-2 [facility] Comment on above: Performed By: #### C BC #### [facility] [address] [place] [address] Dr. Vangie Devine WBC 0-2 Abnormal NONE SEEN [facility] Comment on above: Performed By: #### C BC #### [facility] [address] [place] [address] Dr. Vangie Devine XR CHEST 1 Von [...] ROJAS Date: 2022-06-03 19:25 Normal [facility] XR CHEST 2 Von 05-18-2022 XR CHEST [...] ANGEL SHAFFER Date: 2022-05-18 10:55 Normal [facility] Covid-19 PCR (CVDTBH)on SARS-CoV-2 (COVID-19) RNA SAMIR+probe Ql (Unsp spec) Not detected Normal NOT DETECTED [facility] Comment on above: Result Comment: This test is not yet approved or cleared by the [place] FDA. When there are no FDA-approved or cleared tests available, and other criteria are met, FDA can make tests available under an emergency access mechanism called an Emergency Use Authorization (EUA). The EUA for this test is supported by the [employer] of Health and Human Service's (HHS's) declaration [...] By: #### P TT, PT #### [facility] [address] [place] [address] Dr. Vangie Devine CBC AUTO DIFFon 05-12-2022 BASO # 0.1 103/ul Normal 0.0-0.1 [facility] Comment on above: Performed By: #### C BC #### [facility] [address] [place] [address] Dr. Vangie Devine Basophils/100 WBC (Bld) 0.7 % Normal 0.2-2.0 [facility] Comment on above: Performed By: #### C BC #### [facility] [address] [place] [address] Dr. Vangie Devine EO # 0.2 103/ul Normal 0.0-0.7 [facility] Comment on above: Performed By: #### C BC #### [facility] [address] [place] [address] Dr. Vangie Devine Eosinophils/100 WBC (Bld) 2.1 % Normal 0.9-7.0 [facility] Comment on above: Performed By: #### C BC #### [facility] [address] [place] [address] Dr. Vangie Devine Erythrocyte distribution width (RBC) [Ratio] 13.1 % Normal 11.0-15.0 [facility] Comment on above: Performed By: #### C BC #### [facility] [address] [place] [address] Dr. Vangie Devine Hematocrit (Bld) [Volume fraction] 43.2 % Normal 36.0-48.0 [facility] Comment on above: Performed By: #### C BC #### [facility] [address] [place] [address] Dr. Vangie Devine Hemoglobin (Bld) [Mass/Vol] 14.2 g/dL Normal 12.0-16.0 [facility] Comment on above: Performed By: #### C BC #### [facility] [address] [place] [address] Dr. Vangie Devine IG # 0.02 10e3/ul Normal 0.00-0.03 [facility] Comment on above: Performed By: #### C BC #### [facility] [address] [place] [address] Dr. Vangie Devine IG % 0.2 % Normal 0.0-0.5 [facility] Comment on above: Performed By: #### C BC #### [facility] [address] [place] [address] Dr. Vangie Devine LYMPH # 1.9 103/ul Normal 1.2-3.8 [facility] Comment on above: Performed By: #### C BC #### [facility] [address] [place] [address] Dr. Vangie Devine Lymphocytes/100 WBC (Bld) 22.2 % Normal 20.5-60.0 [facility] Comment on above: Performed By: #### C BC #### [facility] [address] [place] [address] Dr. Vangie Devine MANUAL DIFF REQ NO Normal [facility] Comment on above: Performed By: #### C BC #### [facility] [address] [place] [address] Dr. Vangie Devine MCH (RBC) [Entitic mass] 30.5 pg Normal 26.7-34.0 [facility] Comment on above: Performed By: #### C BC #### [facility] [address] [place] [address] Dr. Vangie Devine MCHC (RBC) [Mass/Vol] 32.9 g/dL Normal 29.9-35.2 [facility] Comment on above: Performed By: #### C BC #### [facility] [address] [place] [address] Dr. Vangie Devine MCV (RBC) [Entitic vol] 92.7 fL Normal 81.0-99.0 [facility] Comment on above: Performed By: #### C BC #### [facility] [address] [place] [address] Dr. Vangie Devine MONO # 0.5 103/ul Normal 0.3-0.8 [facility] Comment on above: Performed By: #### C BC #### [facility] [address] [place] [address] Dr. Vangie Devine Monocytes/100 WBC (Bld) 6.0 % Normal 1.7-12.0 [facility] Comment on above: Performed By: #### C BC #### [facility] [address] [place] [address] Dr. Vangie Devine NEUT # 6.0 103/ul Normal 1.4-6.5 [facility] Comment on above: Performed By: #### C BC #### [facility] [address] [place] [address] Dr. Vangie Devine Neutrophils/100 WBC (Bld) 68.8 % Normal 43.0-75.0 [facility] Comment on above: Performed By: #### C BC #### [facility] [address] [place] [address] Dr. Vangie Devine Platelet mean volume (Bld) [Entitic vol] 11.7 fL Normal 9.5-13.5 [facility] Comment on above: Performed By: #### C BC #### [facility] [address] [place] [address] Dr. Vangie Devine PLT 176 103/ul Normal 150-450 [facility] Comment on above: Performed By: #### C BC #### [facility] [address] [place] [address] Dr. Vangie Devine RBC 4.66 106/ul Normal 4.20-5.40 [facility] Comment on above: Performed By: #### C BC #### [facility] [address] [place] [address] Dr. Vangie Devine WBC 8.7 103/ul Normal 4.0-11.0 [facility] Comment on above: Performed By: #### C BC #### [facility] [address] [place] [address] Dr. Vangie Devine PROF CHEM 8 (BAS METB)on Anion gap [Moles/Vol] 13.9 mmol/L Normal [facility] Comment on above: Performed By: #### C BC #### [facility] [address] [place] [address] Dr. Vangie Devine Calcium [Mass/Vol] 9.2 mg/dL Normal 8.5-10.1 [facility] Comment on above: Performed By: #### C BC #### [facility] [address] [place] [address] Dr. Vangie Devine Chloride [Moles/Vol] 101 mmol/L Normal 98-107 [facility] Comment on above: Performed By: #### C BC #### [facility] [address] [place] [address] Dr. Vangie Devine CO2 [Moles/Vol] 24.2 mmol/L Normal 21.0-32.0 [facility] Comment on above: Performed By: #### C BC #### [facility] [address] [place] [address] Dr. Vangie Devine Creatinine [Mass/Vol] 0.87 mg/dL Normal 0.55-1.02 [facility] Comment on above: Performed By: #### C BC #### [facility] [address] [place] [address] Dr. Vangie Devine EGFR-AF SWEDISH >60 Normal >=60 [facility] Comment on above: Performed By: #### C BC #### [facility] [address] [place] [address] Dr. Vangie Devine EGFR-NON AF SWEDISH >60 Normal >=60 [facility] Comment on above: Performed By: #### C BC #### [facility] [address] [address] [address] Vangie Devine Glucose [Mass/Vol] 89 mg/dL Normal 74-106 [facility] Comment on above: Performed By: #### C BC #### [facility] [address] [address] [address] Vangie Devine Potassium [Moles/Vol] 4.1 mmol/L Normal 3.5-5.1 [facility] Comment on above: Performed By: #### C BC #### [facility] [address] [address] [address] Vangie Devine Sodium [Moles/Vol] 135 mmol/L Critically low 136-145 [facility] Comment on above: Performed By: #### C BC #### [facility] [address] [address] [address] Vangie Devine Urea nitrogen [Mass/Vol] 9.0 mg/dL Normal 7.0-18.0 [facility] Comment on above: Performed By: #### C BC #### [facility] [address] [address] [address] Vangie Devine Urea nitrogen/Creatinine [Mass ratio] 10.3 mg/mg Normal [facility] Comment on above: Performed By: #### C BC #### [facility] [address] [address] [address] Vangie Devine PROTIMEon 05-12-2022 INR Coag (PPP) [Relative time] 1.96 {INR} Normal [facility] Comment on above: Performed By: #### P T #### [facility] [address] [address] [address] Vangie Devine INR GUIDELINES SEE BELOW Normal [facility] Comment on above: Result Comment: MARY ANN RED INR: 2.0 - 3.0 CONDITIONS NOT LISTED BELOW 2.5 - 3.5 FOR PROSTHETIC HEART VALVE REPLACEMENT 2.5 - 3.5 RECURRENT THROMBOSIS Performed By: #### P T #### [facility] [address] [place] [address] Dr. Vangie Devine PT Coag (PPP) [Time] 20.3 s Critically high 9.0-11.6 [facility] Comment on above: Performed By: #### P T #### [facility] [address] [place] [address] Dr. Vangie Devine T4, T3U, FTI LABCORPon 05-07 Free Thyroxine Index 4.7 Normal 1.2-4.9 [facility] Comment on above: Performed By: #### T HYLC #### [facility] [address] [place] [address] Dr. Vangie Devine T3 Uptake 34 % Normal 24-39 [facility] Comment on above: Performed By: #### T HYLC #### [facility] [address] [place] [address] Dr. Vangie Devine T4 [Mass/Vol] 13.8 ug/dL Critically high 4.5-12.0 [facility] Comment on above: Performed By: #### T HYLC #### [facility] [address] [place] [address] Dr. Vangie Devine TSHon 05-06-2022 TSH 0.063 uIU/mL Critically low 0.358-3.740 [facility] Comment on above: Performed By: #### T SH #### [facility] [address] [place] [address] Dr. Vangie Devine ECHOCARDIO M/2D COMPLETEon 0 03-31-2022 ECHOCARDIO M/2D COMPLETE Patient: JAVIER LINK Exam Date: 03/31/2022 : 1970 Gender:F Ordering : DR DEENA BENTON M.D. Admission #: [id number] Family : Order #: [id number] CLICK HERE TO VIEW EXAM ECHOCARDIOGRAM REPORT [...] Benton M.D. on 03/31/2022 at 18:35 Normal [facility] CBC AUTO DIFFon 03-28-2022 BASO # 0.1 103/ul Normal 0.0-0.1 [facility] Comment on above: Performed By: #### C BC #### [facility] [address] [place] [address] Dr. Vangie Devine Basophils/100 WBC (Bld) 0.6 % Normal 0.2-2.0 [facility] Comment on above: Performed By: #### C BC #### [facility] [address] [place] [address] Dr. Vangie Devine EO # 0.2 103/ul Normal 0.0-0.7 [facility] Comment on above: Performed By: #### C BC #### [facility] [address] [place] [address] Dr. Vangie Devine Eosinophils/100 WBC (Bld) 2.0 % Normal 0.9-7.0 [facility] Comment on above: Performed By: #### C BC #### [facility] [address] [place] [address] Dr. Vangie Devine Erythrocyte distribution width (RBC) [Ratio] 12.7 % Normal 11.0-15.0 [facility] Comment on above: Performed By: #### C BC #### [facility] [address] [place] [address] Dr. Vangie Devine Hematocrit (Bld) [Volume fraction] 42.6 % Normal 36.0-48.0 [facility] Comment on above: Performed By: #### C BC #### [facility] [address] [place] [address] Dr. Vangie Devine Hemoglobin (Bld) [Mass/Vol] 13.9 g/dL Normal 12.0-16.0 [facility] Comment on above: Performed By: #### C BC #### [facility] [address] [place] [address] Dr. Vangie Devine IG # 0.03 10e3/ul Normal 0.00-0.03 [facility] Comment on above: Performed By: #### C BC #### [facility] [address] [place] [address] Dr. Vangie Devine IG % 0.4 % Normal 0.0-0.5 [facility] Comment on above: Performed By: #### C BC #### [facility] [address] [place] [address] Dr. Vangie Devine LYMPH # 2.3 103/ul Normal 1.2-3.8 [facility] Comment on above: Performed By: #### C BC #### [facility] [address] [place] [address] Dr. Vangie Devine Lymphocytes/100 WBC (Bld) 28.7 % Normal 20.5-60.0 [facility] Comment on above: Performed By: #### C BC #### [facility] [address] [place] [address] Dr. Vangie Devine MANUAL DIFF REQ NO Normal [facility] Comment on above: Performed By: #### C BC #### [facility] [address] [place] [address] Dr. Vangie Devine MCH (RBC) [Entitic mass] 31.0 pg Normal 26.7-34.0 [facility] Comment on above: Performed By: #### C BC #### [facility] [address] [place] [address] Dr. Vangie Devine MCHC (RBC) [Mass/Vol] 32.6 g/dL Normal 29.9-35.2 [facility] Comment on above: Performed By: #### C BC #### [facility] [address] [place] [address] Dr. Vangie Devine MCV (RBC) [Entitic vol] 95.1 fL Normal 81.0-99.0 [facility] Comment on above: Performed By: #### C BC #### [facility] [address] [place] [address] Dr. Vangie Devine MONO # 0.5 103/ul Normal 0.3-0.8 [facility] Comment on above: Performed By: #### C BC #### [facility] [address] [place] [address] Dr. Vangie Devine Monocytes/100 WBC (Bld) 6.8 % Normal 1.7-12.0 [facility] Comment on above: Performed By: #### C BC #### [facility] [address] [place] [address] Dr. Vangie Devine NEUT # 4.9 103/ul Normal 1.4-6.5 [facility] Comment on above: Performed By: #### C BC #### [facility] [address] [place] [address] Dr. Vangie Devine Neutrophils/100 WBC (Bld) 61.5 % Normal 43.0-75.0 [facility] Comment on above: Performed By: #### C BC #### [facility] [address] [place] [address] Dr. Vangie Devine Platelet mean volume (Bld) [Entitic vol] 11.0 fL Normal 9.5-13.5 [facility] Comment on above: Performed By: #### C BC #### [facility] [address] [place] [address] Dr. Vangie Devine PLT 224 103/ul Normal 150-450 [facility] Comment on above: Performed By: #### C BC #### [facility] [address] [place] [address] Dr. Vangie Devine RBC 4.48 106/ul Normal 4.20-5.40 [facility] Comment on above: Performed By: #### C BC #### [facility] [address] [place] [address] Dr. Vangie Devine WBC 7.9 103/ul Normal 4.0-11.0 [facility] Comment on above: Performed By: #### C BC #### [facility] [address] [place] [address] Dr. Vangie Devine LIPID PROFILEon 03-28-2022 CHOL-HDL RATIO NORM SEE BELOW Normal [facility] Comment on above: Result Comment: 3.3 - 4.4 LOW RISK 4.4 - 7.1 AVERAGE RISK 7.1 - 11.0 MODERATE RISK >11.0 HIGH RISK Performed By: #### C BC #### [facility] [address] [place] [address] Dr. Vangie Devine Cholesterol [Mass/Vol] 103 mg/dL Normal <=200 [facility] Comment on above: Performed By: #### C BC #### [facility] [address] [place] [address] Dr. Vangie Devine Cholesterol in HDL [Mass/Vol] 39 mg/dL Critically low 40-60 [facility] Comment on above: Performed By: #### C BC #### [facility] [address] [place] [address] Dr. Vangie Devine Cholesterol in LDL [Mass/Vol] 46.8 mg/dL Normal [facility] Comment on above: Performed By: #### C BC #### [facility] [address] [place] [address] Dr. Vangie Devine Cholesterol.total/Chol esterol in HDL [Mass ratio] 2.6 {ratio} Normal [facility] Comment on above: Performed By: #### C BC #### [facility] [address] [address] [address] Vangie Devine HDL NORMAL > or = 60 mg/dl - LO W CARDIOVASCULAR RISK <40 mg/dl - HIGH CARDIOVASCULAR RISK Normal [facility] Comment on above: Performed By: #### C BC #### [facility] [address] [address] Dr. Vangie Devine LDL CALC NORMAL SEE BELOW Normal [facility] Comment on above: Result Comment: <100 mg/dl OPTIMAL 100 - 129 mg/dl NEAR OR ABOVE OPTIMAL 130 - 159 mg/dl BORDERLINE HIGH 160 - 189 mg/dl HIGH >190 mg/dl VERY HIGH Performed By: #### C BC #### [facility] [address] [place] [address] Dr. Vangie Devine Triglyceride [Mass/Vol] 86 mg/dL Normal <=150 [facility] Comment on above: Performed By: #### C BC #### [facility] [address] [address] [address] Vangie Devine VLDL CALC 17.2 mg/dL Normal [facility] Comment on above: Performed By: #### C BC #### [facility] [address] [place] [address] Dr. Vangie Devine PROF 14(COMP METB)on 022 Albumin [Mass/Vol] 3.5 g/dL Normal 3.4-5.0 [facility] Comment on above: Performed By: #### C BC #### [facility] [address] [place] [address] Dr. Vangie Devine Albumin/Globulin [Mass ratio] 0.9 {ratio} Normal [facility] Comment on above: Performed By: #### C BC #### [facility] [address] [place] [address] Dr. Vangie Devine ALP [Catalytic activity/Vol] 127 U/L Critically high 46-116 [facility] Comment on above: Performed By: #### C BC #### [facility] [address] [address] [address] Vangie Devine ALT [Catalytic activity/Vol] 29 U/L Normal 14-59 [facility] Comment on above: Performed By: #### C BC #### [facility] [address] [place] [address] Dr. Vangie Devine Anion gap [Moles/Vol] 15.3 mmol/L Normal [facility] Comment on above: Performed By: #### C BC #### [facility] [address] [place] [address] Dr. Vangie Devine AST [Catalytic activity/Vol] 21 U/L Normal 15-37 [facility] Comment on above: Performed By: #### C BC #### [facility] [address] [place] [address] Dr. Vangie Devine Bilirubin [Mass/Vol] 0.5 mg/dL Normal 0.2-1.0 [facility] Comment on above: Performed By: #### C BC #### [facility] [address] [place] [address] Dr. Vangie Devine Calcium [Mass/Vol] 8.9 mg/dL Normal 8.5-10.1 [facility] Comment on above: Performed By: #### C BC #### [facility] [address] [place] [address] Dr. Vangie Devine Chloride [Moles/Vol] 101 mmol/L Normal 98-107 [facility] Comment on above: Performed By: #### C BC #### [facility] [address] [place] [address] Dr. Vangie Devine CO2 [Moles/Vol] 25.8 mmol/L Normal 21.0-32.0 [facility] Comment on above: Performed By: #### C BC #### [facility] [address] [place] [address] Dr. Vangie Devine Creatinine [Mass/Vol] 0.89 mg/dL Normal 0.55-1.02 [facility] Comment on above: Performed By: #### C BC #### [facility] [address] [place] [address] Dr. Vangie Devine EGFR-AF SWEDISH >60 Normal >=60 [facility] Comment on above: Performed By: #### C BC #### [facility] [address] [address] [address] Vangie Devine EGFR-NON AF SWEDISH >60 Normal >=60 [facility] Comment on above: Performed By: #### C BC #### [facility] [address] [address] [address] Vangie Devine Globulin (S) [Mass/Vol] 4.1 g/dL Normal [facility] Comment on above: Performed By: #### C BC #### [facility] [address] [address] [address] Vangie Devine Glucose [Mass/Vol] 94 mg/dL Normal 74-106 [facility] Comment on above: Performed By: #### C BC #### [facility] [address] [place] [address] Dr. Vangie Devine Potassium [Moles/Vol] 5.1 mmol/L Normal 3.5-5.1 [facility] Comment on above: Performed By: #### C BC #### [facility] [address] [place] [address] Dr. Vangie Devine Protein [Mass/Vol] 7.6 g/dL Normal 6.4-8.2 [facility] Comment on above: Performed By: #### C BC #### [facility] [address] [address] [address] Vangie Devine Sodium [Moles/Vol] 137 mmol/L Normal 136-145 [facility] Comment on above: Performed By: #### C BC #### [facility] [address] [address] [address] Vangie Devine Urea nitrogen [Mass/Vol] 9.0 mg/dL Normal 7.0-18.0 [facility] Comment on above: Performed By: #### C BC #### [facility] [address] [address] [address] Vangie Devine Urea nitrogen/Creatinine [Mass ratio] 10.1 mg/mg Normal [facility] Comment on above: Performed By: #### C #### [facility] [address] [address] [address] Vangie Devine Cardiac Stress Teston 2021 Cardiac Stress Test [facility] [address] [place] [address], [address], [place] [id number] Exercise Stress Test Patient Name: JAVIER Ordering Physician: [id number] Nolan Garibay DO [facility] Study Date: 01/26/2022 Reading Physician: [id number] Myke Levin MD MRN/PID: [id number] Supervising [id number] Myke Levin Physician: Accession/Order#: [id number] Referring Physician: [id number] NOLAN GARIBAY Date of : 1970 PCP: Gender: F Fellow: Height: 147.32 cm Nurse: Joe Elmore RN Weight: 84.37 kg Feather Mixer: DAE BSA: 1.77 m2 Technologist: BMI: 38.87 kg/m2 Additional Staff: Age: 52 years cc report to: Patient Location: cc report to: [id number] Nolan Garibay DO Study Type: Cardiac Stress Test Diagnosis/ICD: I21.09-ST elevation (STEMI) myocardial infarction involving other coronary artery of anterior wall; I51.3-Intracardiac thrombosis, not elsewhere classified Indication: UT Procedure/CPT: Stress Test Interpretation-[id number]; Stress Test Supervision-[id number] Falls Risk: Low: Patient has low risk [...] rhythm. Normal sinus rhythm with anteroseptal wall UT. Stress Stage Data: + +-- -+------+-------+ HR [...] The adequate level of stress was achieved. [id number] Myke Levin MD Electronically signed on 01/26/2022 at 5:41:45 PM Final Normal [facility] Cardiac Stress Test MP-No [facility] 250 DO Work Phone: Tobacco Screening.on 022 Adult depression screening assessment Yes [facility] 250 DO Work Phone: Adult depression screening assessment No [facility] 250 DO Work Phone: Fall risk assessment c) Not medically indicated [facility] DO Work Phone: Tobacco use status CP b) No [facility] 250 DO Work Phone: [phone] Tobacco Screening. 0-Not at all [facility] 250 DO Work Phone: [phone] Tobacco Screening. 1-Several days [facility] 250 DO Work Phone: [phone] Tobacco Screening. 2-More than half the days [facility] 250 DO Work Phone: [phone] Tobacco Screening. Not difficult at all [facility] 250 DO Work Phone: Laboratory - Coagulationon 0 01-17-2022 INR Coag (Bld) [Relative time] 1.56 {INR} [facility] DO Work Phone: PROTIMEon 01-17-2022 INR Coag (PPP) [Relative time] 1.56 {INR} Normal [facility] Comment on above: Performed By: #### C HERIBERTO #### [facility] [address] [place] [address] Dr. Vangie Devine INR GUIDELINES SEE BELOW Normal [facility] Comment on above: Result Comment: MARY ANN RED INR: 2.0 - 3.0 CONDITIONS NOT LISTED BELOW 2.5 - 3.5 FOR PROSTHETIC HEART VALVE REPLACEMENT 2.5 - 3.5 RECURRENT THROMBOSIS Performed By: #### C JOBY #### [facility] [address] [place], [place] [address] Dr. Vangie Devine PT Coag (PPP) [Time] 16.4 s Critically high 9.0-11.6 [facility] Comment on above: Performed By: #### C JOBY #### [facility] [address] [place], [place] [address] Dr. Vangie Devine Activated partial thrombopla stin time (aPTT) in platelet poor plasma by coagulation aOrdered By: Isidra Garibay on 01-14-2022 aPTT Coag (PPP) [Time] 34.5 s 25.1-36.5 [facility] Creatinine and Glomerular fi ltration rate.predicted panel (S/P/Bld)Ordered By: Isidra Garibay on 01-14-2022 Creatinine [Mass/Vol] 0.69 mg/dL 0.44-1.03 [facility] Estimated glomerular filtrat ion rate (GFR) non- AmericanOrdered By: Isidra Garibay on 01-14-2022 GFR/1.73 sq M.predicted among non-blacks MDRD (S/P/Bld) [Vol rate/Area] > 60 mL/Min [facility] Laboratory - CoagulationOrde red By: Isidra Garibay on 01-14-2022 PT Coag (PPP) [Time] 17.7 s 9.0-12.9 [facility] No Panel InformationOrdered By: Isidra Garibay on 01-14-2022 Estimated GFR () > 60 mL/Min [facility] Comment on above: GFR estimated refere nce range: According to KDOQI guidelines, <60 ml/min/1.73m2 is sufficient to diagnose a patient with chronic kidney disease. Pharmacy Creatinine Clearance (Chem 94.[address] [facility] Platelet poor plasma interna tional normalized ratio (INR) by coagulation assay (relatOrdered By: Isidra Garibay on 01-14-2022 INR Coag (PPP) [Relative time] 1.6 {INR} [facility] Comment on above: INR Therapeutic Rang [...] on 01-14-2022 Calcium [Mass/Vol] 8.5 mg/dL 8.2-10.2 [facility] Serum or plasma chloride francesca surement (moles/volume)Ordered By: Isidra Garibay on 01-14-2022 Chloride [Moles/Vol] 99 mmol/L 95-114 [facility] Serum or plasma glucose ivana urement (mass/volume)Ordered By: Isidra Garibay on 01-14-2022 Glucose [Mass/Vol] 101 mg/dL 70-100 [facility] Comment on above: ADA recommended refe rence range Random Glucose Reference Range is dependent on time and content of last meal. Glucose of more than 200 mg/dL in a nonstressed, ambulatory subject supports the diagnosis of Diabetes Mellitus. Serum or plasma potassium me asurement (moles/volume)Ordered By: Isidra Garibay on 01-14-2022 Potassium [Moles/Vol] 4.2 mmol/L 3.5-5.1 [facility] Serum or plasma sodium measu rement (moles/volume)Ordered By: Isidra Garibay on 01-14-2022 Sodium [Moles/Vol] 129 mmol/L 136-146 [facility] Serum or plasma total carbon dioxide measurement (moles/volume)Ordered By: Isidra Garibay on 01-14-2022 CO2 [Moles/Vol] 21.8 mmol/L 22.0-30.0 [facility] Serum or plasma urea nitroge n measurement (mass/volume)Ordered By: Isidra Garibay on 01-14-2022 Urea nitrogen [Mass/Vol] 8 mg/dL 9-[address] [facility] Albumin [Mass/volume] in Ser um or PlasmaOrdered By: Isidra Garibay on 01-11-2022 Albumin [Mass/Vol] 2.9 g/dL 3.2-5.5 [facility] Cholesterol [Mass/volume] in Serum or PlasmaOrdered By: Isidra Garibay on 01-11-2022 Cholesterol [Mass/Vol] 109 mg/dL 140-200 [facility] Comment on above: Chol less than 200 m g/dl low risk Chol 201-239 mg/dl borderline risk Chol 240 mg/dl and greater high risk Cholesterol in LDL Calc [Mas s/Vol]Ordered By: Isidra Garibay on 01-11-2022 Cholesterol in LDL [Mass/Vol] 49 mg/dL 0-[address] [facility] Comment on above: LDL ATP III CLASSIFI CATION LDL less than 100 mg/dL Optimal LDL 100-129 mg/dL Near or above optimal LDL 130-159 mg/dL Borderline high LDL 160-189 mg/dL High LDL greater than 189 mg/dL Very high Cholesterol in VLDL Calc [Ma ss/Vol]Ordered By: Isidra Garibay on 01-11-2022 Cholesterol in VLDL [Mass/Vol] 16 mg/dL [facility] Globulin Calc (S) [Mass/Vol] Ordered By: Isidra Garibay on 01-11-2022 Globulin (S) [Mass/Vol] 3.1 g/dL [facility] Glucose Glucometer (BldC) [M ass/Vol]Ordered By: Isidra Garibay on 01-11-2022 Glucose [Mass/Vol] 118 mg/dL [facility] Comment on above: Random Glucose Refer ence Range is dependent on time and content of last meal. Glucose of more than 200 mg/dL in a nonstressed, ambulatory subject supports the diagnosis of Diabetes Mellitus. No Panel InformationOrdered By: Isidra Garibay on 01-11-2022 Bedside Glucose Comment Glu2: cleaned meter [facility] Protein [Mass/volume] in Ser um or PlasmaOrdered By: Isidra Garibay on 01-11-2022 Protein [Mass/Vol] 6.0 g/dL 6.1-7.9 [facility] Serum or plasma alanine gore otransferase measurement without P-5'-P (enzymatic activiOrdered By: Isidra Garibay on 01-11-2022 ALT No additional P-5'-P [Catalytic activity/Vol] 58 U/L 10-[address] [facility] Serum or plasma albumin/glob ulin mass ratioOrdered By: Isidra Garibay on 01-11-2022 Albumin/Globulin [Mass ratio] 0.9 {ratio} [facility] Serum or plasma alkaline carl sphatase measurement (enzymatic activity/volume)Ordered By: Isidra Garibay on 01-11-2022 ALP [Catalytic activity/Vol] 85 U/L 32-[address] [facility] Serum or plasma aspartate am inotransferase measurement (enzymatic activity/volume)Ordered By: Isidra Garibay on 01-11-2022 AST [Catalytic activity/Vol] 212 U/L 10-[address] [facility] Serum or plasma high density lipoprotein (HDL) cholesterol measurementOrdered By: Isidra Garibay on 01-11-2022 Cholesterol in HDL [Mass/Vol] 43 mg/dL 35-[address] [facility] Comment on above: HDL CHOL ATP-III CLA SSIFICATION Cardiovascular Risk HDL > or equal to 60 mg/dL LOW HDL < 40 mg/dL HIGH Serum or plasma total biliru bin measurement (mass/volume)Ordered By: Isidra Garibay on 01-11-2022 Bilirubin [Mass/Vol] 0.6 mg/dL 0.3-1.2 [facility] Serum or plasma total choles terol/high density lipoprotein (HDL) cholesterol mass ratOrdered By: Isidra Garibay on 01-11-2022 Cholesterol.total/Chol esterol in HDL [Mass ratio] 2.5 {ratio} [facility] Triglyceride [Mass/volume] i n Serum or PlasmaOrdered By: Isidra Garibay on 01-11-2022 Triglyceride [Mass/Vol] 83 mg/dL 35-[address] [facility] Comment on above: TRIG ATP III [...] 01-11-2022 Troponin I.cardiac High sensitivity method [Mass/Vol] 52602 pg/mL 0-[address] [facility] Comment on above: Results called at 0805 on 01/11/22 AMYLASEon 01-10-2022 Amylase [Catalytic activity/Vol] 37 U/L Normal 25-115 [facility] Comment on above: Performed By: #### C BC #### [facility] [address] [address] [address] Vangie Devine CARDIAC CHASTITY ADMITon 022 CK [Catalytic activity/Vol] 206 U/L Critically high 26-192 [facility] Comment on above: Performed By: #### C BC #### [facility] [address] [address] [address] Vangie Devine CK.MB [Mass/Vol] 3.65 ng/mL Critically high <=3.60 [facility] Comment on above: Performed By: #### C BC #### [facility] [address] [address] [address] Vangie Devine HSTROP 80.4 pg/mL Critically high 4.0-51.3 [facility] Comment on above: Result Comment: CUT- OFF POINTS HAVE BEEN ESTABLISHED BASED ON THE FOURTH UNIVERSAL DEFINITIONS OF MYOCARDIAL INFARCTION. THE UPPER REFERENCE LIMIT (URL) OF TROPONIN, DEFINED THE 99TH PERCENTILE OF cTnI DISTRIBUTION IN A REFERENCE POPULATION, HAS BEEN CONFIRMED THE DECISION THRESHOLD FOR UT DIAGNOSIS. Performed By: #### C BC #### [facility] [address] [place] [address] Dr. Vangie Devine AJ 119 ng/mL Critically high 9-82 [facility] Comment on above: Performed By: #### C BC #### [facility] [address] [address] [address] Vangie Devine CBC W MANUAL DIFFon 01-11-20 22 ATYPICAL LYMPH # 0.93 103/ul Normal [facility] Comment on above: Performed By: #### C BCMAN #### [facility] [address] [place] [address] Dr. Vangie Devine ATYPICAL LYMPH % 3 % Normal [facility] Comment on above: Performed By: #### C BCMAN #### [facility] [address] [place] [address] Dr. Vangie Devine BAND # 1.6 103/ul Critically high 0.0-0.3 [facility] Comment on above: Performed By: #### C JOBY #### [facility] [address] [place] [address] Dr. Vangie Devine BAND % 5 % Normal 0-5 [facility] Comment on above: Performed By: #### C JOBY #### [facility] [address] [place] [address] Dr. Vangie Devine BASOM # 0.00 103/ul Normal 0.00-0.10 [facility] Comment on above: Performed By: #### C JOBY #### [facility] [address] [place] [address] Dr. Vangie Devine BASOM % 0.0 % Critically low 0.2-2.0 [facility] Comment on above: Performed By: #### C JOBY #### [facility] [address] [place] [address] Dr. Vangie Devine BLAST # 0.0 103/ul Normal [facility] Comment on above: Performed By: #### C JOBY #### [facility] [address] [place] [address] Dr. Vangie Devine BLAST % Normal [facility] Comment on above: Performed By: #### C JOBY #### [facility] [address] [place] [address] Dr. Vangie Devine CORRECTED WBC Normal 4.0-11.0 [facility] Comment on above: Performed By: #### C JOBY #### [facility] [address] [place] [address] Dr. Vangie Devine EOS # 0.00 103/ul Normal 0.00-0.70 [facility] Comment on above: Performed By: #### C JOBY #### [facility] [address] [place] [address] Dr. Vangie Devine EOS% 0.0 % Critically low 0.9-7.0 [facility] Comment on above: Performed By: #### C JOBY #### [facility] [address] [address] [address] Vangie Devine HCT 42.0 % Normal 36.0-48.0 [facility] Comment on above: Performed By: #### C JOBY #### [facility] [address] [place] [address] Dr. Vangie Devine HGB 14.6 g/dl Normal 12.0-16.0 [facility] Comment on above: Performed By: #### C JOBY #### [facility] [address] [place] [address] Dr. Vangie Devine HYPERSEG NEUT 1+ Normal [facility] Comment on above: Performed By: #### C JOBY #### [facility] [address] [place] [address] Dr. Vangie Devine LYMPHM # 4.03 103/ul Critically high 1.20-3.80 [facility] Comment on above: Performed By: #### C JOBY #### [facility] [address] [place] [address] Dr. Vangie Devine LYMPHM% 13.0 % Critically low 20.5-60.0 [facility] Comment on above: Performed By: #### C JOBY #### [facility] [address] [place] [address] Dr. Vangie Devine MCH 32.7 pg Normal 26.7-34.0 [facility] Comment on above: Performed By: #### C JOBY #### [facility] [address] [place] [address] Dr. Vangie Devine MCHC 34.8 g/dl Normal 29.9-35.2 [facility] Comment on above: Performed By: #### C JOBY #### [facility] [address] [place] [address] Dr. Vangie Devine MCV 94.2 fL Normal 81.0-99.0 [facility] Comment on above: Performed By: #### C JOBY #### [facility] [address] [place] [address] Dr. Vangie Devine METAMYELOCYTE # 1.2 103/ul Normal [facility] Comment on above: Performed By: #### C BCHERIBERTO #### [facility] [address] [address] [address] Vangie Devine METAMYELOCYTE % 4 % Normal [facility] Comment on above: Performed By: #### C BCHERIBERTO #### [facility] [address] [address] [address] Vangie Devine MONOM# 0.93 103/ul Critically high 0.30-0.80 [facility] Comment on above: Performed By: #### C BCHERIBERTO #### [facility] [address] [address] [address] Vangie Devine MONOM% 3.0 % Normal 1.7-12.0 [facility] Comment on above: Performed By: #### C JOBY #### [facility] [address] [place] [address] Dr. Vangie Devine MPV 10.4 fL Normal 9.5-13.5 [facility] Comment on above: Performed By: #### C JOBY #### [facility] [address] [place] [address] Dr. Vangie Devine MYELOCYTE # 0.9 103/ul Normal [facility] Comment on above: Performed By: #### C JOBY #### [facility] [address] [place] [address] Dr. Vangie Devine MYELOCYTE % 3 % Normal [facility] Comment on above: Performed By: #### C JOBY #### [facility] [address] [place] [address] Dr. Vangie Devine NRBC 0 Normal [facility] Comment on above: Performed By: #### C BCHERIBERTO #### [facility] [address] [place] [address] Dr. Vangie Devine PLT 460 103/ul Critically high 150-450 [facility] Comment on above: Performed By: #### C BCHERIBERTO #### [facility] [address] [place] [address] Dr. Vangie Devine RBC 4.46 106/ul Normal 4.20-5.40 [facility] Comment on above: Performed By: #### C BCMAN #### [facility] [address] [place], [place] [address] Dr. Vangie Devine RDW 12.6 % Normal 11.0-15.0 [facility] Comment on above: Performed By: #### C BCMAN #### [facility] [address] [place], [place] [address] Dr. Vangie Devine SEG # 21.39 103/ul Critically high 1.40-6.50 [facility] Comment on above: Performed By: #### C BCMAN #### [facility] [address] [place], [place] [address] Dr. Vangie Devine SEG % 69.0 % Normal 43.0-75.0 [facility] Comment on above: Performed By: #### C BCMAN #### [facility] [address] [place], [place] [address] Dr. Vangie Devine WBC 31.0 103/ul Critically high 4.0-11.0 [facility] Comment on above: Performed By: #### C JANNETTEMAN #### [facility] [address] [place], [place] [address] Dr. Vangie Devine Covid-19 PCR ([facility])on 12-14 SARS-CoV-2 (COVID-19) RNA SAMIR+probe Ql (Unsp spec) Not detected Normal NOT DETECTED [facility] Comment on above: Result Comment: When diagnostic [...] for this test is supported by the [employer] of Health and Human Service's declaration that [...] Performed By: #### C JOBY #### [facility] [address] [address] [address] Vangie Devine LIPASEon 01-10-2022 Lipase [Catalytic activity/Vol] 63.0 U/L Critically low 73.0-393.0 [facility] Comment on above: Performed By: #### C JOBY #### [facility] [address] [address] [address] Vangie Devine Laboratory - Chemistry and C hemistry - challengeOrdered By: Isidra Garibay on 01-10-2022 Magnesium [Mass/Vol] 2.0 mg/dL 1.6-2.6 [facility] PROTIMEon 01-10-2022 INR Coag (PPP) [Relative time] 1.01 {INR} Normal [facility] Comment on above: Performed By: #### P TT, PT #### [facility] [address] [place] [address] Dr. Vangie Devine INR GUIDELINES SEE BELOW Normal [facility] Comment on above: Result Comment: MARY ANN RED INR: 2.0 - 3.0 CONDITIONS NOT LISTED BELOW 2.5 - 3.5 FOR PROSTHETIC HEART VALVE REPLACEMENT 2.5 - 3.5 RECURRENT THROMBOSIS Performed By: #### P TT, PT #### [facility] Laboratory [address] [place] [address] Dr. Vangie Devine PT Coag (PPP) [Time] 10.9 s Normal 9.0-11.6 [facility] Comment on above: Performed By: #### P TT, PT #### [facility] Laboratory [address] [place] [address] Dr. Vangie Devine PTTon 01-10-2022 aPTT Coag (Bld) [Time] 26.3 s Normal 22.3-36.2 Th [facility] Comment on above: Performed By: #### P TT, PT #### [facility] Laboratory [address] [place] [address] Dr. Vangie Devine XR CHEST 1 Von 01-10-2022 XR CHEST 1 V CLINICAL HISTORY: Chest pain COMPARISON: Chest radiograph 12/20/2015 at [facility]. FINDINGS: Portable AP view of the chest obtained. Cardiomediastinal silhouette is normal. Lungs are clear, no evidence of infiltrate, suspicious nodule, or mass. No evidence of significant pleural fluid on this portable projection. No acute bony abnormality. IMPRESSION: No acute abnormality. Electronically authenticated by: MADELAINE ALVA Date: 2022-01-10 10:16 Normal [facility] WRIST LEFT 3 VWSon 2 WRIST LEFT 3 [facility] Department of Radiology [address] [place] [phone] Patient Name: JAVIER LINK : 1970 Sex: F Age: Race: White Pt. 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 Electronically signed: QUANG RUFFIN. Transcribed by: [email or web address], User Resident: Electronically Signed by: QUANG RUFFIN @ 09/10/2021 09:04 AM Normal [facility] Comment on above: Order Comment: Evalu ate Operative Reporton Operative Report MR#: [id number] S [facility] Pt. Name: Javier Link Room #: 0C Discharge Date: Birthdate: 1970 OPERATIVE REPORT DATE OF SURGERY: 07/22/2021 SURGEON: Rafi Biswas M.D. PREOPERATIVE DIAGNOSIS: Kienbock's disease, stage IV, left lunate. POSTOPERATIVE DIAGNOSIS: Kienbock's disease, stage IV, left lunate. PROCEDURE: Proximal row carpectomy, left wrist. WALL STEAMER: Maricarmen Liao M.D. ANESTHESIA: Regional. INDICATION FOR [...] took some 3-0 TiCron and put a rlktnp-pp-ydosm suture in that dorsal portion of the TFCC right near the ulnar styloid where the small tear was. The volar part of the TFCC looks good. Once that was in, the dorsal capsule was closed with multiple rhgwts-qi-qvqlq sutures of 2-0 Vicryl. The subcutaneous tissue [...] Biswas M.D. Date Trans: 07/22/2021 10:32 A/destinee [id number] cc: Moriah Mack M.D. [address] [place] [id number] Normal [facility] POC GLUCOSE LABon 07-22-2021 Glucose [Mass/Vol] 85 mg/dL Normal 70-100 [facility] Comment on above: Performed By: #### [id number] #### [address] MRI WRIST WO CONTRAST RIGHTo 06-09-2021 MRI WRIST WO CONTRAST RIGHT [facility] Department of Radiology [address] [place] [phone] Patient Name: JAVIER LINK : 1970 Sex: F Age: Race: White Pt. 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 Electronically signed: Liz Harp. Transcribed by: [email or web address], User Resident: Electronically Signed by: LIZ HARP @ 06/11/2021 09:46 AM Normal [facility] Comment on above: Order Comment: Evide tra Webb's R wrist on outside x-ray, evaluate for staging and surgical planning. , Side: RIGHT WRIST LEFT 3 Son 1 WRIST LEFT 3 VWS [facility] Department of Radiology [address] [place] [phone] Patient Name: JAVIER LINK : 1970 Sex: F Age: Race: White Pt. 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 COMPARISON: None. IMPRESSION: 1. Subtle sclerosis lunate suggests possibility of osteonecrosis. No significant ulnar variance. 2. No acute fracture. No dislocation. Likely remote injury ulnar styloid. 3. Borderline widening scapholunate interval. 4. Multiple moderate triscaphe and radiocarpal arthritis. Electronically signed: Alonso Iglesias. Transcribed by: [email or web address], User Resident: Electronically Signed by: ALONSO IGLESIAS @ 05/19/2021 12:56 PM Normal [facility] Comment on above: Order Comment: evalu ate WRIST RIGHT 3 VWSon 05-18-20 21 WRIST RIGHT 3 VWS [facility] Department of Radiology [address] [place] [phone] Patient Name: JAVIER LINK : 1970 Sex: F Age: Race: White Pt. 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 COMPARISON: None. IMPRESSION: 1. Subtle sclerosis lunate suggest osteonecrosis. 2. No acute fracture. No malalignment. No significant ulnar variance. Electronically signed: Alonso Iglesias. Transcribed by: [email or web address], User Resident: Electronically Signed by: ALONSO IGLESIAS @ 05/19/2021 12:55 PM Normal [facility] Comment on above: Order Comment: evalu ate Vital Signs Date Time Vital Sign Value Performing Clinician Facility 01-20-2022 12:07-0400 Diastolic blood pressure 58 mm[Hg] No PCP None [facility] DO Work Phone: 01-20-2022 12:07-0400 Systolic blood pressure 105 mm[Hg] No PCP None [facility] DO Work Phone: 01-20-2022 11:58-0400 Body height 147.32 cm No PCP None [facility] DO Work Phone: 01-20-2022 11:58-0400 Body mass index (BMI) [Ratio] 38.87 kg/m2 No PCP None [facility] DO Work Phone: 01-20-2022 11:58-0400 Body surface area Derived from formula 1.77 m2 No PCP None [facility] DO Work Phone: 01-20-2022 11:58-0400 Body weight 84.37 kg No PCP None [facility] DO Work Phone: 01-20-2022 11:58-0400 Diastolic blood pressure 62 mm[Hg] No PCP None [facility] DO Work Phone: 01-20-2022 11:58-0400 Heart rate 60 /min No PCP None [facility] DO Work Phone: 01-20-2022 11:58-0400 Systolic blood pressure 110 mm[Hg] No PCP None [facility] DO Work Phone: 01-20-2022 11:58-0400 6 1 No PCP None [facility] DO Work Phone: Comment on above: PHQ-9 TS 01-14-2022 13:04-0400 Heart rate 74 /min DO W Clarke Yusufdon Work Phone: [facility] 01-14-2022 13:04-0400 Respiratory rate 20 /min DO W Clarke Garibay Work Phone: [facility] 01-14-2022 12:00-0400 Body temperature 98.4 [degF] DO W Clarke Yusufdon Work Phone: [facility] 01-14-2022 12:00-0400 Diastolic blood pressure 69 mm[Hg] DO W Clarke Yusufdon Work Phone: [facility] 01-14-2022 12:00-0400 SaO2% (BldA) [Mass fraction] 96 % DO W Clarke Yusufdon Work Phone: [facility] 01-14-2022 12:00-0400 Systolic blood pressure 98 mm[Hg] DO W Clarke Garibay Work Phone: [facility] 01-14-2022 04:55-0400 Body weight 85 kg DO W Clarke Garibay Work Phone: [facility] 01-12-2022 08:00-0400 Inhaled oxygen flow rate 3 L/min DO W Clarke Garibay Work Phone: [facility] 01-11-2022 16:45-0400 Inhaled oxygen concentration 50 % DO W Clarke Garibay Work Phone: [facility] 01-11-2022 00:00-0400 35 1 No PCP None [facility] DO Work Phone: Comment on above: [id number] 01-10-2022 13:01-0400 Body height 147.32 cm DO W Clarke Garibay Work Phone: [facility] 01-10-2022 13:01-0400 Body mass index (BMI) [Ratio] 39.2 kg/m2 DO W Clarke Yusufdon Work Phone: [facility] Encounters Encounter Date Encounter Type Care Provider Facility Start: 01-23-2025 [facility] Start: 12-25-2024 ambulatory [facility] Start: 11-14-2024 ambulatory [facility] Start: 11-08-2024 End: 11-08-2024 ambulatory [facility] Start: 10-11-2024 ambulatory [facility] Start: 09-10-2024 ambulatory [facility] Start: 08-27-2024 End: 08-27-2024 ambulatory [facility] Start: 08-22-2024 ambulatory [facility] Start: 08-20-2024 ambulatory [facility] Start: 07-29-2024 ambulatory [facility] Start: 07-23-2024 ambulatory [facility] Start: 07-10-2024 ambulatory [facility] Start: 07-08-2024 End: 07-08-2024 ambulatory [facility] Start: 06-27-2024 ambulatory [facility] Start: 06-17-2024 ambulatory [facility] Start: 05-21-2024 ambulatory [facility] Start: 04-30-2024 ambulatory [facility] Start: 04-30-2024 Encounter for preprocedural cardiovascular examination [facility] Start: 03-15-2024 ambulatory [facility] Start: 02-27-2024 End: 02-27-2024 ambulatory [facility] Start: 02-07-2024 ambulatory DELL WEAVER [facility] Start: 12-21-2022 End: 12-22-2022 ambulatory [...] Start: 01-27-2022 Chart Update No PCP None [facility] DO Work Phone: Start: 01-20-2022 End: 02-11-2022 ambulatory SHAIKH Sergo HERRERA Facility:[facility] Start: 01-20-2022 Transitional care moni clark srvc 7 day discharge No PCP None [facility] DO Work Phone: Start: 01-17-2022 End: 01-18-[address] NOLAN GARIBAY Facility:[facility] Start: 01-10-2022 End: 01-14-2022 Evaluation and management of inpatient DO W Clarke Garibay Work Phone: [facility] Start: 01-10-2022 End: 01-10-2022 ambulatory HASMUKH KATZ . Facility: Start: 07-22-2021 End: 07-23-2021 ambulatory RAFI BISWAS Facility:[facility] Procedures Date Procedure Procedure Detail Performing [...] Garibay, Status: Pen, Time: 10:50 AM [facility] DO Work Phone: Start: 03-21-2022 FUV, Provider: Beth Hull, Status: Pen, Time: 8:30 AM FUV, Provider: Beth Hull, Status: Pen, Time: 8:30 AM [facility] DO Work Phone: Start: 03-14-2022 ECHO, Provider: LUCAS HHVI ULTRASOUND ,[id number], Status: Pen, Time: 10:45 AM ECHO, Provider: LUCAS HHVI ULTRASOUND 01,[id number], Status: Pen, Time: 10:45 AM [facility] DO Work Phone: Start: 01-26-2022 STRESS MARK, Provider : LUCAS JEONG NUCLEAR 01,[id number], Status: Pen, Time: 2:00 PM STRESS MARK, Provider: LUCAS JEONG NUCLEAR ,[id number], Status: Pen, Time: 2:00 PM [facility] DO Work Phone: Patient Education Coronary Angio plasty (DC) Angina (DC) Drug Eluting Stents [facility] Work Phone: Patient referral [facility] Work Phone: Payers Date Payer Category Payer Medicare [id number] 2019 Unknown [id number] 1970 Unknown [id number] 2.16.8 [id number] 1970 Unknown [id number] 2.16.84 0.1.799356.3.579.2.593 1970 Unknown [id number] 2.16.84 0.1.315713.3.579.2.593 1970 Unknown [id number] 2.16.84 0.1.360857.3.579.2.593 1970 Unknown [id number] 2.16.84 0.1.426336.3.579.2.593 1970 Unknown [id number] 2.16.84 0.1.877140.3.579.2.593 1970 Unknown [id number] 2.16.84 0.1.502330.3.579.2.593 1970 Unknown [id number] 2.16.84 0.1.085025.3.579.2.593 1970 Unknown [id number] 2.16.84 0.1.544848.3.579.2.593 1970 Unknown [id number] 2.16.84 0.1.623685.3.579.2.593 1971 Unknown [id number] 2.16.84 0.1.834861.3.579.2.593 1971 Unknown [id number] 2.16.84 0.1.982728.3.579.2.593 1971 Unknown [id number] 2.16.84 0.1.695997.3.579.2.593 1971 Unknown [id number] 2.16.84 0.1.944136.3.579.2.593 1971 Unknown [id number] 2.16.84 0.1.985395.3.579.2.593 1971 Unknown [id number] 2.16.84 0.1.138897.3.579.2.593 1970 Unknown [id number] 2.16.84 0.1.440537.3.579.2.593 1971 Unknown [id number] 2.16.84 0.1.774040.3.579.2.593 1971 Unknown [id number] 2.16.84 0.1.863344.3.579.2.593 1971 Unknown [id number] 2.16.84 0.1.992757.3.579.2.593 1971 Unknown [id number] 2.16.84 0.1.568788.3.579.2.593 1959 Self-pay [id number] Unknown Unknown [id number] 2.16.84 0.1.016323.3.579.2.593 Unknown [id number] 2.16.8 40.1.656742.3.579.2.531 Social History Date Type Detail Facility Daily caffeine consumption Daily caffeine consumption [facility] Work Phone: Comment on above: 3-4; quit 1 week ago; Start: 01-10-[address] [facility] Start: 1970 Sex Assigned At Female F [facility] Medical Equipment Procedure Code Equipment Code Equipment Origin al Text Equipment Identifier Dates Drug-eluting coronary artery stent, dpi-vhngeikjthfne-mv lymer-coated ()[id number] FDA Start: 01-10-2022 Drug-eluting coronary artery stent, aid-rhsfokrootzys-xo lymer-coated ()[id number] FDA Start: 01-10-2022 Goals Date Patient Goal Desired Activity /State Functional Status Date Assessment Result Facility 01-20-2022 PHQ-9 [id number] Mild (5-9) [facility] DO Work Phone: 01-14-2022 Functional status Patient at Baseline [facility] Work Phone: 01-10-2022 Functional status Disability Sta tus Patient at Baseline [facility] Work Phone: Mental Status Date Assessment Result Facility 01-10-2022 Cognitive function Cognitive Sta tus Patient at Baseline [facility] Work Phone: Clinical Notes 01-10-2022 to 11-08-2024 Note Date & Type Note Facility 11-08-2024 Note [facility] Subjective Javier Link is a 54 y.o. year old female patient being seen for PVC'S per cardiac rehab. Pain between shoulder blades that is intermittent. Fatigue every day all day. Patient Active Problem List Diagnosis ??? Pain of joint of both hands ??? Acute non-ST segment elevation myocardial infarction (CMS/HCC) ??? Coronary arteriosclerosis ??? Hyperlipidemia ??? Left ventricular thrombus ??? Obesity ??? Progressive avascular necrosis of lunate (CMS/HCC) ??? Tobacco user ??? ICD (implantable cardioverter-defibrillator), dual, in situ ??? Chest pain ??? Chronic systolic heart failure (CMS/HCC) ??? 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 Psoriatic arthritis (CMS/HCC) ??? 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 Generalized anxiety disorder Family History Problem Relation Name Age of Onset ??? Atrial fibrillation Mother ??? Other (pacemaker) Mother ??? Heart attack Father ??? Other (pacemaker) Father ??? Other (aortic valve disorder) Father Social History Tobacco Use ??? Smoking status: Former Current packs/day: 0.00 Types: Cigarettes Start date: 10/20/1987 Quit date: 10/19/2022 Years since quittin.0 ??? Smokeless tobacco: Never Substance Use Topics ??? Alcohol use: Not Currently Comment: occasional ??? Drug use: Never HPI Visit of 02/07/2022: Javier is seen as a new patient. The following information is from review of the available medical record. She is a 52-year-old woman. On 01/10/2022 she presented to [facility] with STEMI and was found to have [...] enrolled in cardiac rehab at the [facility] and doing well with that. Anticoagulation clinic at the [facility] follows her warfarin levels. Testing: ECG 01/13/2022: [...] seen in follow-up. At last visit I incr (more content not included)... [facility] 07-08-2024 Note [place] [facility] - [facility] Subjective Javier Link is a 54 y.o. year old female patient being seen for 6 mo follow up hx of LV thrombus, CAD, and chronic systolic heart failure. She was admitted to [facility] in Apr 2024 for hypotension [...] On 01/10/2022 she presented to [facility] with STEMI and was found to have [...] enrolled in cardiac rehab at the [facility] and doing well with that. Anticoagulation clinic at the [facility] follows her warfarin levels. Testing: ECG 01/13/2022: [...] 28 mm skypoint, 2.5 x 18 mm [place]. An intra-aortic balloon pump was placed. Visit [...] on exertion a (more content not included)... [facility] 10-31-2022 Note CARDIAC STRESS TEST [...] evaluation with invasive stress test. [facility] 01-13-2022 Progress note Note Date/Time January 13, 2022 3:15pm [facility] [address] [place] [address] Cardiology Progress Note Signed Patient: Javier Link MR#: [id number] : 1970 Acct:[id number] Age/Sex: 51 / F Adm Date: 2 Loc: Room: [address] [place] [address] Type : ADM IN Attending Dr: Isidra [...] <Electronically signed by Isidra Garibay DO> 01/13/22 1515 [facility] Work Phone: 1(198) 698-731806-01-2022 Progress note Author Isidra Garibay [facility] January 12, 2022 3:16pm Note Date/Time January 12, 2022 3:16p m [facility] [address] [place] [address] Cardiology Progress Note Signed Patient: Javier Link MR#: [id number] : 1970 Acct:[id number] Age/Sex: 51 / F Adm Date: 2 Loc: Room: [address] [place] [address] Type : ADM IN Attending Dr: Isidra [...] signed by Isidra Garibay DO> 01/12/22 1510 [facility] Work Phone: 1(200) 518-318805-31-2022 Progress note Author Isidra Garibay [facility] January 11, 2022 1:38pm Note Date/Time January 11, 2022 1:38p m [facility] [address] [place] [address] Cardiology Progress Note Signed Patient: Javier Link MR#: [id number] : 1970 Acct:[id number] Age/Sex: 51 / F Adm Date: 2 Loc: Room: [address] [place] [address] Type : ADM IN Attending Dr: Isidra [...] ALT Alkaline Phosphatase Troponin I High Sens 65332 H* Total Protein Albumin Globulin Albumin/Globulin Ratio [...] ALT Alkaline Phosphatase Troponin I High Sens 867132 H* Total Protein Albumin Globulin Albumin/Globulin Ratio Triglycerides Cholesterol LDL Cholesterol, Calc VLDL Cholesterol HDL Cholesterol Cholesterol/HDL Ratio 01/10/22 01/10/22 01/10/22 20:42 21:57 23:37 APTT PHA Creatinine Clear Sodium Potassium Chloride Carbon Dioxide BUN Creatinine Est GFR ( Amer) Est GFR (Non-Af Amer) Glucose POC Glucose 148 Calcium Magnesium Total Bilirubin AST ALT Alkaline Phosphatase Troponin I High Sens 985282 H* 826611 H* Total Protein Albumin Globulin Albumin/Globulin Ratio [...] Alkaline Phosphatase 85 Troponin I High Sens 84996 H* Total Protein 6.0 L Albumin 2.9 [...] [address] [facility] Work Phone: 1(879) 648-638605-30-2022 History and physical note Author Isidra Garibay [facility] January 10, 2022 12:14pm Note Date/Time January 10, 2022 10:30 am [facility] [address] [place] [address] Cardiology H&P Signed Patient: Javier Link MR#: [id number] : 1970 Acct:[id number] Age/Sex: 51 / F Adm Date: 2 Loc: Room: Type: [facility] Attending Dr: Isidra Garibay DO Copies to: NON STAFF Isidra Garibay DO~ Date of Service: 01/10/2022 Cardiology HPI History of Present Illness Chief complaint: Inferolateral STEMI HPI: Ms. Link is a 51 year old female transferred from [facility] emergency room this morning after receiving phone call from Dr. Katz and reviewing electronic transmitted media and discussion about the clinical case. Patient presented with severe chest discomfort with no prior history of cardiac illness or intervention. ECGs reveal sinus rhythm with inferolateral ST elevation injury current. She was admitted restarted upstream antiplatelet and Antithrombin therapy, and transferred to the Medical Billing Supervisor emergently. Patient arrived at [facility] ER at 0924, first ECG transmitted to nd was 0948, Medical Billing Supervisor team was activated at 0952, patient was transferred by ground, arrived in Medical Billing Supervisor at 1033 and underwent primary PCI [...] ER staff, review of electronic transmitted media, Medical Billing Supervisor staff, nursing staff and family both [...] changes or abnormalities: ST suggestive of injury UT, pacemaker, normal Myocardial infarction: inferior UT (acute or recent) and lateral UT (acute or recent) A&P - Cardiology (1) [...] [address] [facility] Work Phone: 1(834) 471-420605-30-[address] [facility] [facility] Narrative - Reported* 51-year-old female returns for transitional care management office visit following recent large anterior UT with associated cardiogenic shock and primary revascularization of the LAD, details of which are reviewed. She had intra-aortic balloon pump counterpulsation for 24 hours, subsequent diagnosis of LV thrombus with reduced LV function. She was transition to clopidogrel warfarin, aspirin triple therapy. She did have brief episodes of blessing-UT/postoperative VT that stabilized on amiodarone andthen we [...] 12 weeks and myselfin approximately [address] Work Phone: Chief complaint Narrative - Reported* 51-year-old female returns for transitional care management office visit following recent large anterior UT with associated cardiogenic shock and primary revascularization of the LAD, details of which are reviewed. She had intra- aortic balloon pump counterpulsation for 24 hours, subsequent diagnosis of LV thrombus with reduced LV function. She was transition to clopidogrel warfarin, aspirin triple therapy. She did have brief episodes of blessing-UT/postoperative VT that stabilized on amiodarone andthen we [...] 12 weeks and myselfin approximately 4 months [facility] Work Phone: Chief complaint Narrative - Reported* 51-year-old female returns for transitional care management office visit following recent large anterior UT with associated cardiogenic shock and primary revascularization of the LAD, details of which are reviewed. She had intra- aortic balloon pump counterpulsation for 24 hours, subsequent diagnosis of LV thrombus with reduced LV function. She was transition to clopidogrel warfarin, aspirin triple therapy. She did have brief episodes of blessing-UT/postoperative VT that stabilized on amiodarone andthen we [...] 12 weeks and myselfin approximately 4 months [facility] Work Phone: Evaluation note* Diagnosis Onset Date Resolution Status Essential hypertension acute Hyperlipidemia acute Left ventricular thrombus ac jalil ST elevation myocardial infa rction (STEMI) of inferolateral wall acute [facility] Work Phone: Hospital Discharge instructions Additional Instructions [facility] to manage your Coumadin dosing [...] doctor or pharmacist, without first calling the food trades assistants who implanted the stent. If you require [...] weight lifting, stair steppers, etc. until the food trades assistants approves these activities. Check with the food trades assistants on your first follow-up visit. CALL YOUR PHYSICIAN at [phone]: -If bleeding should occur from the catheter insertion site- apply pressure to the site then immediately call us. -Report any fever, redness, drainage, increased swelling, or firmness at the catheter insertion site. Some bruising or slight swelling may be present at the time of discharge. -Should arm or leg become cold, numb, white, or blue, contact the food trades assistants immediately. -IF you should experience episodes of [...] is recommended. Please call Central Scheduling at [phone] to schedule your appointment.] The attending food trades assistants or [facility] nurse clinician should provide you with specific instructions regarding activity, diet, medications, and further follow up for you. Follow the medication instructions provided on your discharge. If the dosages and instructions on this sheet differ from the dosage and instructions on the bottle, follow the instructions on the bottle. [facility] is not responsible for incorrect prescription information provided by the patient during their visit. Do not stop your medications without consulting your health care provider. Please take the list with you to your next doctor's appointment.[facility] Work Phone: Summary Purpose Family History No [...] Z82.49) Status:Active Family history of cardiac pa lyssaaker: Mother, Father(V17.49, Z82.49) Status:Active Family history of [...] and content) DATE CREATED AUTHOR 09/11/2021 [facility] DATE CREATED AUTHOR AUTHOR'S ORGANIZ ATION 03/09/2022 [facility] DATE CREATED AUTHOR AUTHOR'S ORGANIZ ATION 12/25/2022 [facility] DATE CREATED AUTHOR AUTHOR'S ORGANIZ ATION 05/11/2024 [facility] DATE CREATED AUTHOR AUTHOR'S ORGANIZ ATION 01/26/2025 [facility] Care Teams (unrecognized sec tion [...] BE BASED ON THE PRIMARY CLINICAL RECORDS. [facility] [employer] provides no warranty or guarantee of the accuracy or completeness of information in this document.
== END 2025-01-31 07:44 | disposition home or self-care (01) ==
LOC: CARD 07:44
PROVIDERS: PCP Nurse Practitioner Family; Visit Provider Internal Medicine Interventional Cardiology
DX: I50.22 Chronic systolic (congestive) heart failure (principal)
CPT/HCPCS: 93306; 93356

== ENCOUNTER 2025-04-25 10:08 | Outpatient (OUT) | payer MEDICARE, SELFPAY ==
--- OUTSIDE RECORDS SUMMARY | 2025-04-25 10:12 | XMS_ITS | Encounter Summary ---
Author Organization [facility] Address [id number] [address] [place] [address] Care Team Providers Care Assistant To The President Name Role Phone Moriah Mack TAKE UP SUPERVISOR-SLUICE TENDER Primary Care Provi [facility] Encounter Details Date Type Department Care Team (Late st Contact Info) Description 12/11/2020 Telephone [facility] [address] [place] [phone] Florin Benoit CMA Social History Tobacco Use [...] often do you attend chur ch or scientology services? Never 11/29/2020 Do you belong to [...] Answer Date Recorded Total Score 18 11/29/2020 [facility] [place] of Occupat ional Health - Occupational Stress [...] understanding. 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 documented in this encounter Plan of Treatment Not on file documented as of this encounter Goals Goal Patient Goal Type Associated Problems Recent Progress Patient-Stated? Author Home General Yes [place] LSW Note: Evaluation of progress towards goal: Safe dc transition home with family support and [facility] for in home therapy. documented as of this encounter Visit Diagnoses Not on filedocumented in this encounter Additional Health Concerns Assessment Noted Time PHQ-9 Depression Total Score: 18 021 10:19 AM EDT A Body Mass Index follow-up plan has been documented for the patient 02/18/2020 5:34 PM EDT documented as of this encounter Care Teams Assistant To The President Relationship Specialty Start Date End Date Moriah Mack APRN-ANTHONY [address], [place] [address] PCP - General Family Medicine 01/31/20 documented as of this encounter
--- OUTSIDE RECORDS SUMMARY | 2025-04-25 10:12 | XMS_ITS | Encounter Summary ---
Author Organization [facility] Address [facility]-[id number] [address] [place] [address] Care Team Providers Care Hydrogen Power Plant Manager Name Role Phone MartinaMoriah galeas SENIOR DENTIST-LOCKSTITCH MACHINE OPERATOR Primary Care Pro[facility] Reason for Visit * Reason Onset Date Comments Med Refill 07/01/2020 Encounter Details Date Type Department Care Team (Late st Contact Info) Description 07/01/2020 Refill [facility] [address] [place] [address] [place] [address] Divina Arellano CMA Hypothyroidism, unspecified [...] and Family Not on file 03/25/2020 Attends [employer] Not on file 03/25 Active Member [...] Answer Date Recorded Total Score 0 03/25/2020 [facility] [place] of Occupat ional Health - Occupational Stress [...] Recorded Do you need help finding a [facility] career center and/or a training program? [...] dc transition home with family support and [facility] for in home therapy. documented as of this encounter Visit Diagnoses Diagnosis Hypothyroidism, unspecified type documented in this encounter Additional Health Concerns Assessment Noted Time PHQ-9 Depression Total Score: 0 03/25/20 20 12:10 PM EDT A Body Mass Index follow-up plan has been documented for the patient 02/18/2020 5:34 PM EDT documented as of this encounter Care Teams Hydrogen Power Plant Manager Relationship Specialty Start Date End Date Moriah Mack, CECY-LOCKSTITCH MACHINE OPERATOR [address], [place] [address] PCP - General Family Medicine 01/31/20 documented as of this encounter
--- OUTSIDE RECORDS SUMMARY | 2025-04-25 10:12 | XMS_ITS | Clinical Summary ---
Author Organization [facility] Address [address] [place] [address] Phone Care Team Providers Care Machine Ceramic Coater Name Role Phone Unavailable Primary Care Provider [...] 01/20/2022 11:58 AM EDT Plan of Treatment Not on file
--- OUTSIDE RECORDS SUMMARY | 2025-04-25 10:12 | XMS_ITS | Clinical Summary ---
Author Organization [facility] Address [address] [place] [address] Care Team Providers Care Director Digital Marketing Name Role Phone Unavailable Primary Care Provider [...]
--- OUTSIDE RECORDS SUMMARY | 2025-04-25 10:12 | XMS_ITS | Encounter Summary ---
Author Organization [facility] Address [facility]-[id number] [address] [place] [address] Care Team Providers Care Trashman Name Role Phone Moriah Mack DOCUMENT IMAGE TECHNICIAN-PROCUREMENT OFFICER Primary Care Provi [facility] Encounter Details Date Type Department Care Team (Late st Contact Info) Description 12/09/2020 Telephone [facility] [address] [place] [address] [place] [address] Florin Benoit CMA Social History [...] any clubs o r organizations such as latter day groups, unions, fraternal or athletic groups, or [...] Answer Date Recorded Total Score 18 11/29/2020 [facility] of Occupat ional Health - Occupational [...] dc transition home with family support and [facility] for in home therapy. documented as of this encounter Visit Diagnoses Not on filedocumented in this encounter Additional Health Concerns Assessment Noted Time PHQ-9 Depression Total Score: 18 021 10:19 AM EDT A Body Mass Index follow-up plan has been documented for the patient 02/18/2020 5:34 PM EDT documented as of this encounter Care Teams Trashman Relationship Specialty Start Date End Date Moriah Mack, DOCUMENT IMAGE TECHNICIAN-PROCUREMENT OFFICER [address], [place] [address] PCP - General Family Medicine 01/31/20 documented as of this encounter
--- OUTSIDE RECORDS SUMMARY | 2025-04-25 10:13 | XMS_ITS | Encounter Summary ---
Author Organization [facility] Address [facility]-[id number] [address] [place] [address] Care Team Providers Care Public Health Technologist Name Role Phone Moriah Mack BEN DAY ARTIST-EXECUTIVE CHEF ASSISTANT Primary Care Pro[facility] Encounter Details Date Type Department Care Team (Late st Contact Info) Description 12/17/2020 Telephone [facility] [address] [place] [address] [place] [address] Florin Benoit CMA Social History [...] often do you attend chur ch or sabianist services? Never 11/29/2020 Do you belong to any clubs o r organizations such as anglican groups, unions, fraternal or athletic groups, or [...] Answer Date Recorded Total Score 18 11/29/2020 [facility] [place] of Occupat ional Health - Occupational Stress [...] dc transition home with family support and [facility] for in home therapy. documented as of this encounter Visit Diagnoses Not on filedocumented in this encounter Additional Health Concerns Assessment Noted Time PHQ-9 Depression Total Score: 18 021 10:19 AM EDT A Body Mass Index follow-up plan has been documented for the patient 02/18/2020 5:34 PM EDT documented as of this encounter Care Teams Public Health Technologist Relationship Specialty Start Date End Date Moriah Mack APRN-CNP [address], [place] [address] PCP - General Family Medicine 01/31/20 documented as of this encounter
--- OUTSIDE RECORDS SUMMARY | 2025-04-25 10:13 | XMS_ITS | Clinical Summary ---
Author Organization [facility] Address [facility]-[id number] [address] [place] [address] Care Team Providers Care Data Security Analyst Name Role Phone Moriah Mack HYDROLOGY PROFESSOR-INFORMATICS EDUCATOR Primary Care Provi didi Allergies Active Allergy [...] How often do you attend chur or taoism services? Never 11/29/2020 Do you belong to any clubs o r organizations such as evangelical groups, unions, fraternal or athletic groups, or [...] Answer Date Recorded Total Score 14 02/01/2021 [facility] [place] of Occupat ional Health - Occupational Stress [...] Recorded Do you need help finding a [facility] career center and/or a training [...] dc transition home with family support and [facility] for in home therapy. Medical Devices Implanted Type Area Legal Receptionist Device Identifier Shelf Expiration Date Model / Serial / Lot Cmnt Bio 40gm Rpl [id number] - Sna - [id number] Implanted:Qty : 2 on 03/25/2020 by Christiano Vasquez DO at [facility] Cement Right: Knee [employer] 02/11/2024 [id number] / NA / [id number] Cmpt Ptlr 32mm Medialized Dome - Sna - [id number] Implanted:Qty : 1 on 03/25/2020 by Christiano Vasquez DO at [facility] Orthopedic Implant Right: Knee ORTHOPAEDICS 01/11/2025 [id number] / NA / [id number] Cmpt Fem 5 Kn Rt Crcte Rtn - Sna - [id number] Implanted:Qty : 1 on 03/25/2020 by Christiano Vasquez DO at [facility] Orthopedic Implant Right: Knee ORTHOPAEDICS 08/13/2029 [id number] / NA / [id number] Ins Tib 5 5mm Cr Fx Brng - Sna - [id number] Implanted:Qty : 1 on 03/25/2020 by Christiano Vasquez DO at [facility] Orthopedic Implant Right: Knee ORTHOPAEDICS 01/11/2025 [id number] / NA / [id number] Bsplt Tib 5 Kn Cmnt Fx Brng - Sna - [id number] Implanted:Qty : 1 on 03/25/2020 by Christiano Vasquez DO at [facility] Plate Right: Knee ORTHOPAEDICS 11/11/2029 [id number] / NA / [id number] Explanted Type Area Legal Receptionist Device Identifier Shelf Expiration Date Model / Serial / Lot Impl Kn Fx Brng W Spcl Ins Construct Rpl [id number] - Sna - [id number] Explanted:Qty : 1 on 03/25/2020 by Christiano Vasquez DO at [facility] Orthopedic Implant Right: Knee ORTHOPAEDICS [id number] / NA / NA Procedures Procedure Name [...] Negative Negative^N egative 12/18/2020 2:14 PM EDT [facility] Hpv 18 Negative Negative^N egative 12/18/2020 2:14 PM EDT [facility] Other high risk hpv Negative Negative^N egative 12/18/2020 2:14 PM EDT [facility] Comment: HPV types 31,33,35,39,45,52,56,58,59,66 and 68 DNA were undetectable. THINP 12/16/2020 11:5 7 AM EDT 12/17/2020 11:57 AM EDT Rivka Rogers HYDROLOGY PROFESSOR-[facility] BLOOD ORDERABLES Fin al Result [facility] [address], [address] [place] [address] from Last 3 Months or Most Recently Relevant to Health Maintenance Insurance MANY [employer] Advance Directives * Full Code (Latest Code Status on File) Date Activated Date Inactivated Comments 03/25/2020 11:33 AM 03/26/2020 5:48 PM Care Teams Data Security Analyst Relationship Specialty Start Date End Date Moriah Mack, HYDROLOGY PROFESSOR-INFORMATICS EDUCATOR [address], [place] [address] PCP - General Family Medicine 01/31/20
--- OUTSIDE RECORDS SUMMARY | 2025-04-25 10:13 | XMS_ITS | Encounter Summary ---
Author Organization [facility] Address [facility][id number] [address] [place] [address] Care Team Providers Care Diesel Service Technician Name Role Phone Moriah Mack ACCOUNTANT BOOKKEEPER-DATA ANALYST ETL DEVELOPER Primary Care Provi didi Reason for Visit * Reason Onset Date Comments Med Refill 06/09/2021 Encounter Details Date Type Department Care Team (Late st Contact Info) Description 06/09/2021 Refill [facility] [address] [place] [address] Moriah Mack, CECY-DATA ANALYST ETL DEVELOPER [address] [facility] B, [facility] [place] [address] Asthma with status asthmaticus, unspecified [...] week 11/29/2020 How often do you attend [facility] or confucianist services? Never 11/29/2020 Do you [...] Answer Date Recorded Total Score 14 02/01/2021 [facility] of Occupat ional Health - Occupational [...] Recorded Do you need help finding a [facility] career [facility] and/or a training [...] home with family support and [facility] for in home therapy. documented as of [...] documented as of this encounter Care Teams Diesel Service Technician Relationship Specialty Start Date End Date Moriah Mack, ACCOUNTANT BOOKKEEPER-DATA ANALYST ETL DEVELOPER [address], [place] [address] PCP - General Family Medicine 01/31/20 documented as of this encounter
--- OUTSIDE RECORDS SUMMARY | 2025-04-25 10:13 | XMS_ITS | Encounter Summary ---
Author Organization [facility] Address [facility][id number] [address] [place] [address] Care Team Providers Care Coagulating Bath Operator Name Role Phone Moriah Mack STREET WORKER-RENTAL SALES AGENT Primary Care Provi didi Reason for Visit * Reason Onset Date Comments Med Refill 12/07/2021 Encounter Details Date Type Department Care Team (Late st Contact Info) Description 12/07/2021 Refill [facility] [address] [place] [address] [place] [address] Moriah Mack, CECY-RENTAL SALES AGENT [address] [facility] B, [facility] [place] [address] High cholesterol Social History Tobacco [...] How often do you attend chur or anglican services? Never 11/29/2020 Do you belong to any clubs o r organizations such as episcopal groups, unions, fraternal or athletic groups, or [...] Answer Date Recorded Total Score 14 02/01/2021 [facility] of Occupat ional Health - Occupational [...] home with family support and [facility] for in home therapy. documented as of this encounter Visit Diagnoses Diagnosis High cholesterol Pure hypercholesterolemia documented in this encounter Additional Health Concerns Assessment Noted Time PHQ-9 Depression Total Score: 14 021 3:00 PM EDT A Body Mass Index follow-up plan has been documented for the patient 02/18/2020 5:34 PM EDT documented as of this encounter Care Teams Coagulating Bath Operator Relationship Specialty Start Date End Date Moriah Mack, STREET WORKER-RENTAL SALES AGENT [address], [place] [address] PCP - General Family Medicine 01/31/20 documented as of this encounter
--- OUTSIDE RECORDS SUMMARY | 2025-04-25 10:13 | XMS_ITS | Encounter Summary ---
Author Organization [facility] Address [facility]-[id number] [address] [place] [address] Care Team Providers Care Mortgage Sales Manager Name Role Phone Moriah Mack OIL PIPE INSPECTOR HELPER-FIELD AUDITOR Primary Care Provi didi Reason for Visit * Reason Onset Date Comments Med Refill 12/07/2021 Encounter Details Date Type Department Care Team (Late st Contact Info) Description 12/07/2021 Refill [facility] [address] [place] [address] [place] [address] Moriah Mack, CECY-FIELD AUDITOR [address] [facility] B, [facility] D [place], [place] [id number] Anxiety and depression Social History Tobacco Use [...] How often do you attend [facility] or zoroastrianism services? Never 11/29/2020 Do you belong to any clubs o r organizations such as christianity groups, unions, fraternal or athletic groups, or [...] Answer Date Recorded Total Score 14 02/01/2021 [facility] of Occupat ional Health - Occupational [...] Recorded Do you need help finding a [facility] career center and/or a training [...] support and [facility] for in home therapy. documented as of this encounter Visit Diagnoses Diagnosis Anxiety and depression documented in this encounter Additional Health Concerns Assessment Noted Time PHQ-9 Depression Total Score: 14 021 3:00 PM EDT A Body Mass Index follow-up plan has been documented for the patient 02/18/2020 5:34 PM EDT documented as of this encounter Care Teams Mortgage Sales Manager Relationship Specialty Start Date End Date Moriah Mack, CECY-FIELD AUDITOR [address], [place] [address] PCP - General Family Medicine 01/31/20 documented as of this encounter
--- OUTSIDE RECORDS SUMMARY | 2025-04-25 10:13 | XMS_ITS | Encounter Summary ---
Author Organization [facility] Address [facility]-[id number] [address] [place] [address] Care Team Providers Care Driveway Sealer Name Role Phone Moriah Mack SEISMOLOGY TEACHER-DENTAL EQUIPMENT MECHANIC Primary Care Provi didi Reason for Visit * Reason Onset Date Comments Med Refill 12/07/2021 Encounter Details Date Type Department Care Team (Late st Contact Info) Description 12/07/2021 Refill [facility] [address] [place] [address] [place] [address] Moriah Mack, CECY-DENTAL EQUIPMENT MECHANIC [address] [facility] B, [facility] [address] [place], [place] [id number] Accelerated essential hypertension Social History Tobacco Use [...] week 11/29/2020 How often do you attend [facility] or scientology services? Never 11/29/2020 Do you belong to any clubs o r organizations such as orthodoxy groups, unions, fraternal or athletic groups, or [...] Answer Date Recorded Total Score 14 02/01/2021 [facility] of Occupat ional Health - Occupational [...] Recorded Do you need help finding a [facility] career center and/or a training [...] documented as of this encounter Care Teams Driveway Sealer Relationship Specialty Start Date End Date Moriah Mack, SEISMOLOGY TEACHER-DENTAL EQUIPMENT MECHANIC [address], [place] [address] PCP - General Family Medicine 01/31/20 documented as of this encounter
--- OUTSIDE RECORDS SUMMARY | 2025-04-25 10:13 | XMS_ITS | Encounter Summary ---
Author Organization [facility] Address [facility]-[id number] [address] [place] [address] Care Team Providers Care Electrician Outside Name Role Phone Moriah Mack STUDIO POTTER-DYE PADDER OPERATOR Primary Care Provi didi Reason for Visit * Reason Onset Date Comments Med Refill 12/07/2021 Encounter Details Date Type Department Care Team (Late st Contact Info) Description 12/07/2021 Refill [facility] [address] [place] [address] [place] [address] Moriah Mack, CECY-DYE PADDER OPERATOR [address] [facility] B, [facility] D [place], [place] [id number] Accelerated essential hypertension Social History Tobacco Use [...] week 11/29/2020 How often do you attend [facility] or mormonism services? Never 11/29/2020 Do you belong to [...] Answer Date Recorded Total Score 14 02/01/2021 [facility] of Occupat ional Health - Occupational [...] Recorded Do you need help finding a [facility] career center and/or a training program? [...] documented as of this encounter Care Teams Electrician Outside Relationship Specialty Start Date End Date Moriah Mack, STUDIO POTTER-DYE PADDER OPERATOR [address], [place] [address] PCP - General Family Medicine 01/31/20 documented as of this encounter
--- OUTSIDE RECORDS SUMMARY | 2025-04-25 10:13 | XMS_ITS | Encounter Summary ---
Author Organization [facility] Address [facility] [place] [facility]-[id number] [address] [place] [address] Care Team Providers Care Industrial Pharmacist Name Role Phone Moriah Mack GAMBLING CASHIER-MEDICAL HISTORIAN Primary Care Provi [facility] Encounter Details Date Type Department Care Team (Late st Contact Info) Description 02/24/2021 Telephone [facility] [address] [place] [address] [place] [address] Osiris Rodriguez CMA Social History [...] often do you attend chur ch or latter-day services? Never 11/29/2020 Do you belong to any clubs o r organizations such as orthodox groups, unions, fraternal or athletic groups, or [...] Answer Date Recorded Total Score 14 02/01/2021 [facility] [place] of Occupat ional Health - Occupational Stress [...] dc transition home with family support and [facility] for in home therapy. documented as of this encounter Visit Diagnoses Not on filedocumented in this encounter Additional Health Concerns Assessment Noted Time PHQ-9 Depression Total Score: 14 021 3:00 PM EDT A Body Mass Index follow-up plan has been documented for the patient 02/18/2020 5:34 PM EDT documented as of this encounter Care Teams Industrial Pharmacist Relationship Specialty Start Date End Date Moriah Mack APRN-CNP [address], [place] [address] PCP - General Family Medicine 01/31/20 documented as of this encounter
--- OUTSIDE RECORDS SUMMARY | 2025-04-25 10:13 | XMS_ITS | Encounter Summary ---
Author Organization [facility] Address [id number] [address] [place] [address] Care Team Providers Care Piping Supervisor Name Role Phone Moriah Mack ERECTING ENGINEER-FUR TINTER Primary Care Provi [facility] Encounter Details Date Type Department Care Team (Late st Contact Info) Description 12/21/2020 Telephone [employer] [facility] Family Medicine [address] [place] [address] [address] [address] Florin Benoit CMA Social History [...] often do you attend chur ch or confucianism services? Never 11/29/2020 Do you belong to any clubs o r organizations such as druze groups, unions, fraternal or athletic groups, or [...] Answer Date Recorded Total Score 18 11/29/2020 [facility] of Occupat ional Health - Occupational Stress [...] Miscellaneous Notes * Telephone Encounter - Florin dAan CMA - 12/21/2020 11:45 AM EDT ----- Message from CRISSY Martins sent at 12/18/2020 8:28 AM EDT ----- Patient should follow-up with ordering provider * Telephone Encounter - Florin Adan CMA - 12/21/2020 11:45 AM EDT I spoke with Millie at [facility] with Rivka's office, Millie stated that Rivka will review with pt. documented in this encounter Plan of Treatment Not on file documented as of this encounter Goals Goal Patient Goal Type Associated Problems Recent Progress Patient-Stated? Author Home General Yes [place] LSW Note: Evaluation of progress towards goal: Safe dc transition home with family support and [facility] for in home therapy. documented as of this encounter Visit Diagnoses Not on filedocumented in this encounter Additional Health Concerns Assessment Noted Time PHQ-9 Depression Total Score: 18 021 10:19 AM EDT A Body Mass Index follow-up plan has been documented for the patient 02/18/2020 5:34 PM EDT documented as of this encounter Care Teams Piping Supervisor Relationship Specialty Start Date End Date Moriah Mack APRN-ANTHONY [address], [place] [address] PCP - General Family Medicine 01/31/20 documented as of this encounter
--- OUTSIDE RECORDS SUMMARY | 2025-04-25 10:13 | XMS_ITS | Encounter Summary ---
Author Organization [facility] Address [id number] [address] [place] [address] Care Team Providers Care Instrument Technician Apprentice Name Role Phone Moriah Mack GLOBAL MARKETING MANAGER-BMW SERVICE TECHNICIAN Primary Care [facility] Encounter Details Date Type Department Care Team (Late st Contact Info) Description 12/17/2020 Telephone [facility] Family [facility] [address] [place] [address] [place] [address] Florin Benoit CMA Social History [...] often do you attend chur ch or faith services? Never 11/29/2020 Do you belong to any clubs o r organizations such as confucianism groups, unions, fraternal or athletic groups, or [...] Answer Date Recorded Total Score 18 11/29/2020 [facility] of Occupat ional Health - Occupational Stress [...] dc transition home with family support and [place] for in home therapy. documented as of this encounter Visit Diagnoses Not on filedocumented in this encounter Additional Health Concerns Assessment Noted Time PHQ-9 Depression Total Score: 18 021 10:19 AM EDT A Body Mass Index follow-up plan has been documented for the patient 02/18/2020 5:34 PM EDT documented as of this encounter Care Teams Instrument Technician Apprentice Relationship Specialty Start Date End Date Moriah Mack, CRISSY [address], [place] [address] PCP - General Family Medicine 01/31/20 documented as of this encounter
--- OUTSIDE RECORDS SUMMARY | 2025-04-25 10:16 | XMS_ITS | CCD ---
Author Organization [facility] Informat ion Partnership [facility] Care Team Providers Care Medical Officer Psychiatry Name Role Phone RAFI BISWAS Attending Unavailable MORIAH MACK Primary Care Unavailable MORIAH MACK Referring Unavailable RAFI BISWAS Admitting Unavailable None, No PCP Unavailable Unavailable Unavailable Unavailable DO Isidra Garibay Admit Provider DO Isidra Garibay Attending Provider [phone] NON STAFF Primary Care Provider UnavailALTON Bowen [...] Unavailable MOUKARBEL, DR SHAFFER Attending Unavailable VALDEZ, [facility] Primary Care Unavailable MOUKARBEL, DR SHAFFER Consulting Unavailable VALDEZ, [facility] Primary Care Unavailable MOUKARBEL, DR SHAFFER Attending Unavailable MOUKARBEL, DR SHAFFER Admitting Unavailable FAWWAD, SWIFT H Admitting Unavailable FAWWAD, SWIFT H Attending Unavailable VALDEZ, NIKKI Primary Care Unavailable NON STAFF Primary Care Unavailable Isidra Garibay Attending Unavailable Isidra Garibay Admitting Unavailable OWEN, DELL Referring Unavailable OWEN, DELL [...] Propensity to adverse reactions (disorder) 1 [facility] Repository (4 sources) moxifloxacin; Translations: [Avelox] Drug Allergy [place] [address] DO Work Phone: (3 sources) moxifloxacin; Translations: [moxifloxacin] Drug Allergy 2 [facility] (1 source) moxifloxacin Drug Allergy 3 [facility] Repository (1 source) Chlorhexidine; Translations: [CHLORHEXIDINE GLUCONATE] Drug Allergy 0 [facility] Repository Medications Current Medications Medication Drug Class(es) Dates Sig (Normalized) Sig (Original) [id number] 200 actuat albuterol 0.09 mg/actuat metered dose [...] 2022 1:49pm take 1 capsule by mo [facility] three times daily as needed Benzonatate [...] 2022 6:58pm take 1 capsule by mo [facility] once daily before breakfast Levothyroxine Sodium [...] MG Oral Tablet Take as directed by Driver [facility] Quantity: 0 Refills: 0 Ordered: [...] sources) Coronary arteriosclerosis; Translations: [Coronary atherosclerosis of nondalton coronary artery] Onset: 02-02-2022 Chronic Diabetes mellitus [...] 02-28-2022 Episodic Other aftercare (1 source) Other correction (current) drug therapy; Translations: [OTH [facility] CURRENT DRUG THERAPY] Onset: 06-07-2022 Episodic Other aftercare (4 sources) Encounter for therapeutic drug level monitoring; Translations: [ENC THERAPEUTC DRUG LEVL MONITORING] Onset: 05-15-2022 Episodic Other aftercare (1 source) [facility] (current) use of anticoagulants; Translations: [TELEPHONE CLAIMS REPRESENTATIVE CURRNT USE ANTICOAGULANTS] Onset: 06-14-2022 Episodic Other [...] Test Name Value Interpretation Reference Range Facility Orders Onlyon 04-13-2025 Orders Only [id number] Javier Link 1970 F Date Provider Department Center 04/13/2025 ANURADHA ANGELES [facility] Family History Problem Relation Age of Onset Atrial fibrillation Mother Other Mother Heart attack Father Other Father Other Father Family Status - Relation Status Age at Mother Father Normal [facility] Orders Only [id number] Javier Link 1970 Date Provider Department Center 04/13/2025 ALTON RESENDIZ [facility] Family History Problem Relation Age of Onset Atrial fibrillation Mother Other Mother Heart attack Father Other Father Other Father Family Status - Relation Status Age at Mother Father Normal [facility] Orders Onlyon 03-13-2025 Orders Only [id number] Javier Link 1970 F Date Provider Department Center 03/13/2025 RosaATIYAYADIELANURADHA JEONG [facility]ARD [place] [facility] Family History Problem Relation Age of Onset Atrial fibrillation Mother Other Mother Heart attack Father Other Father Other Father Family Status - Relation Status Age at Mother Father [facility] 3602-13-2025 37 MD Ladan Walters MA Echo showed improved EF to 35%, no clot. I can see her in 3 months. Spoke to patient, advised patient of Dr. Benton's finding. Patient verbalized understand. [facility] Office Visiton 11-08-2024 Follow-up visit [id number] Javier Link 1970 Date Provider Department Center 11/08/2024 DEENA GARCIA [facility]ARD [facility] Family History Problem Relation Age of Onset Atrial fibrillation Mother Other Mother Heart attack Father Other Father Other Father Family Status - Relation Status Age at Mother Father Level of Service:97950 IN OFFICE/OUTPATIENT ESTABLISHED MOD MDM 30 MIN [facility] 10-25-2024 36 Pt informed and labs sent [facility] on 09-26-[address] Benton regarding lab results from today: MD Danielle Walters MA Her blood testing is very good. This is reassuring. No further recommendations at this time. Patient made aware. [facility] 36 Spoke with patient and her BP last night before bed was 110 systolic. This morning she feels well but BP is 89/50. That was BP prior to morning medications. She will come today for labs. [facility] 09-25-2024 36 Patient was at cardiac rehab [...] her at this time? Please advise. Thanks. [facility] 36on 09-06-2024 36 Regarding echo resul t from 08/02/2024: MD Danielle Walters MA Her echo did not show clot in the heart. Same treatment and follow up as planned. Patient notified. [facility] Office Visiton 07-08-2024 Follow-up visit [id number] Javier Link Bebo 1970 F Date Provider Department Center 07/08/2024 DEENA GARCIA HETAL [facility] Family History Problem Relation Age of Onset Atrial fibrillation Mother Other Mother Heart attack Father Other Father Other Father Family Status - Relation Status Age at Mother Father Level of Service:68377 IN OFFICE/OUTPATIENT ESTABLISHED MOD MDM 30 MIN [facility] PROF CHEM 8 (BAS METB)on Anion gap [Moles/Vol] 14.8 mmol/L Normal [facility] Comment on above: Performed By: #### C BC #### [facility] [address] [place] [address] Dr. Vangie Devine Calcium [Mass/Vol] 8.9 mg/dL Normal 8.5-10.1 [facility] Comment on above: Performed By: #### C BC #### [facility] [address] [place] [address] [address] Vangie Devine Chloride [Moles/Vol] 101 mmol/L Normal 98-107 [facility] Comment on above: Performed By: #### C BC #### [facility] [address] [place] [address] [address] Vangie Devine CO2 [Moles/Vol] 25.9 mmol/L Normal 21.0-32.0 [facility] Comment on above: Performed By: #### C BC #### [facility] [address] [place] [address] [address] Vangie Devine Creatinine [Mass/Vol] 0.91 mg/dL Normal 0.55-1.02 [facility] Comment on above: Performed By: #### C BC #### [facility] [address] [place] [address] [address] Vangie Devine EGFR-AF MOROCCAN >60 Normal >=60 [facility] Comment on above: Performed By: #### C BC #### [facility] [address] [place] [address] [address] Vangie Devine EGFR-NON AF MOROCCAN >60 Normal >=60 [facility] Comment on above: Performed By: #### C BC #### [facility] [address] [address] [address] Vangie Devine Glucose [Mass/Vol] 93 mg/dL Normal 74-106 [facility] Comment on above: Performed By: #### C BC #### [facility] [address] [place] [address] Dr. Vangie Devine Potassium [Moles/Vol] 4.7 mmol/L Normal 3.5-5.1 [facility] Comment on above: Performed By: #### C BC #### [facility] [address] [place] [address] Dr. Vangie Devine Sodium [Moles/Vol] 137 mmol/L Normal 136-145 [facility] Comment on above: Performed By: #### C BC #### [facility] [address] [place] [address] Dr. Vangie Devine Urea nitrogen [Mass/Vol] 9.0 mg/dL Normal 7.0-18.0 [facility] Comment on above: Performed By: #### C BC #### [facility] [address] [place] [address] Dr. Vangie Devine Urea nitrogen/Creatinine [Mass ratio] 9.9 mg/mg Normal [facility] Comment on above: Performed By: #### C BC #### [facility] [address] [place] [address] Dr. Vangie Devine PROF CHEM 8 (BAS METB)on Anion gap [Moles/Vol] 15.6 mmol/L Normal [facility] Comment on above: Performed By: #### P TT, PT #### [facility] [address] [address] [address] Vangie Devine Calcium [Mass/Vol] 8.9 mg/dL Normal 8.5-10.1 [facility] Comment on above: Performed By: #### P TT, PT #### [facility] [address] [place] [address] [address] Vangie Devine Chloride [Moles/Vol] 101 mmol/L Normal 98-107 [facility] Comment on above: Performed By: #### P TT, PT #### [facility] [address] [address] [address] Vangie Devine CO2 [Moles/Vol] 24.7 mmol/L Normal 21.0-32.0 [facility] Comment on above: Performed By: #### P TT, PT #### [facility] [address] [place] [address] Dr. Vangie Devine Creatinine [Mass/Vol] 0.95 mg/dL Normal 0.55-1.02 [facility] Comment on above: Performed By: #### P TT, PT #### [facility] [address] [address] [address] Vangie Devine EGFR-AF MOROCCAN >60 Normal >=60 [facility] Comment on above: Performed By: #### P TT, PT #### [facility] [address] [place] [address] [address] Vangie Devine EGFR-NON AF MOROCCAN >60 Normal >=60 [facility] Comment on above: Performed By: #### P TT, PT #### [facility] [address] [address] [address] Vangie Devine Glucose [Mass/Vol] 101 mg/dL Normal 74-106 [facility] Comment on above: Performed By: #### P TT, PT #### [facility] [address] [address] [address] Vangie Devine Potassium [Moles/Vol] 4.3 mmol/L Normal 3.5-5.1 [facility] Comment on above: Performed By: #### P TT, PT #### [facility] [address] [place], [place] [address] Dr. Vangie Devine Sodium [Moles/Vol] 137 mmol/L Normal 136-145 [facility] Comment on above: Performed By: #### P TT, PT #### [facility] [address] [place], [place] [address] Dr. Vangie Devine Urea nitrogen [Mass/Vol] 15.0 mg/dL Normal 7.0-18.0 [facility] Comment on above: Performed By: #### P TT, PT #### [facility] [address] [place], [place] [address] Dr. Vangie Devine Urea nitrogen/Creatinine [Mass ratio] 15.8 mg/mg Normal [facility] Comment on above: Performed By: #### P TT, PT #### [facility] [address] [place] [address] [address] Vangie Devine NM STRESS/REST MULTIon 10-31 NM STRESS/REST MULTI Patient: JAVIER LINK Exam Date: 10/31/2022 : 1970 Gender:F Ordering : DR DEENA BENTON M.D. Admission #: [id number] Family : Order #: [id number] CLICK HERE TO VIEW EXAM RADIOLOGY REPORT [...] M.D. on 10/31/2022 at 14:45 Normal [facility] FREE THYROXINE INDEX T7on FTI 4.83 Critically high 1.30-4.50 [facility] Comment on above: Performed By: #### C BC #### [facility] [address] [place] [address] [address] Vangie Devine T3U 35.0 % Normal 30.0-39.0 [facility] Comment on above: Performed By: #### C BC #### [facility] [address] [place] [address] [address] Vangie Devine T4 [Mass/Vol] 13.80 ug/dL Normal 4.80-13.90 [facility] Comment on above: Performed By: #### C BC #### [facility] [address] [place] [address] [address] Vangie Devine TSHon 07-20-2022 TSH 0.051 uIU/mL Critically low 0.358-3.740 [facility] Comment on above: Performed By: #### C BC #### [facility] [address] [place] [address] [address] Vangie Devine ACETONE SERUMon 06-03-2022 ACETONE Negative Normal NEGATIVE [facility] Comment on above: Performed By: #### C BCHERIBERTO #### [facility] [address] [place] [address] Dr. Vangie Devine CBC AUTO DIFFon 06-03-2022 BASO # 0.1 103/ul Normal 0.0-0.1 [facility] Comment on above: Performed By: #### C BCMAN #### [facility] [address] [place] [address] Dr. Vangie Devine Basophils/100 WBC (Bld) 0.6 % Normal 0.2-2.0 [facility] Comment on above: Performed By: #### C BCHERIBERTO #### [facility] [address] [place] [address] Dr. Vangie Devine EO # 0.3 103/ul Normal 0.0-0.7 [facility] Comment on above: Performed By: #### C JOBY #### [facility] [address] [place] [address] Dr. Vangie Devine Eosinophils/100 WBC (Bld) 1.4 % Normal 0.9-7.0 [facility] Comment on above: Performed By: #### C JOBY #### [facility] [address] [place] [address] Dr. Vangie Devine Erythrocyte distribution width (RBC) [Ratio] 13.2 % Normal 11.0-15.0 [facility] Comment on above: Performed By: #### C BCHERIBERTO #### [facility] [address] [place] [address] Dr. Vangie Devine Hematocrit (Bld) [Volume fraction] 44.8 % Normal 36.0-48.0 [facility] Comment on above: Performed By: #### C BCHERIBERTO #### [facility] [address] [place] [address] Dr. Vangie Devine Hemoglobin (Bld) [Mass/Vol] 15.0 g/dL Normal 12.0-16.0 [facility] Comment on above: Performed By: #### C BCHERIBERTO #### [facility] [address] [place] [address] Dr. Vangie Devine IG # 0.06 10e3/ul Critically high 0.00-0.03 [facility] Comment on above: Performed By: #### C JOBY #### [facility] [address] [place] [address] Dr. Vangie Devine IG % 0.3 % Normal 0.0-0.5 [facility] Comment on above: Performed By: #### C JOBY #### [facility] [address] [place] [address] [address] Vangie Devine LYMPH # 3.5 103/ul Normal 1.2-3.8 [facility] Comment on above: Performed By: #### C JOBY #### [facility] [address] [place] [address] Dr. Vangie Devine Lymphocytes/100 WBC (Bld) 19.8 % Critically low 20.5-60.0 [facility] Comment on above: Performed By: #### C JOBY #### [facility] [address] [place] [address] Dr. Vangie Devine MANUAL DIFF REQ NO Normal [facility] Comment on above: Performed By: #### C JOBY #### [facility] [address] [place] [address] Dr. Vangie Devine MCH (RBC) [Entitic mass] 31.1 pg Normal 26.7-34.0 [facility] Comment on above: Performed By: #### C JOBY #### [facility] [address] [place] [address] Dr. Vangie Devine MCHC (RBC) [Mass/Vol] 33.5 g/dL Normal 29.9-35.2 [facility] Comment on above: Performed By: #### C JOBY #### [facility] [address] [place] [address] Dr. Vangie Devine MCV (RBC) [Entitic vol] 92.8 fL Normal 81.0-99.0 [facility] Comment on above: Performed By: #### C JOBY #### [facility] [address] [address] [address] Vangie Devine MONO # 1.1 103/ul Critically high 0.3-0.8 [facility] Comment on above: Performed By: #### C JOBY #### [facility] [address] [place] [address] Dr. Vangie Devine Monocytes/100 WBC (Bld) 6.0 % Normal 1.7-12.0 [facility] Comment on above: Performed By: #### C JOBY #### [facility] [address] [place] [address] Dr. Vangie Devine NEUT # 12.6 103/ul Critically high 1.4-6.5 [facility] Comment on above: Performed By: #### C JOBY #### [facility] [address] [place] [address] Dr. Vangie Devine Neutrophils/100 WBC (Bld) 71.9 % Normal 43.0-75.0 [facility] Comment on above: Performed By: #### C JOBY #### [facility] [address] [place] [address] Dr. Vangie Devine Platelet mean volume (Bld) [Entitic vol] 11.0 fL Normal 9.5-13.5 [facility] Comment on above: Performed By: #### C JOBY #### [facility] [address] [place] [address] Dr. Vangie Devine PLT 179 103/ul Normal 150-450 [facility] Comment on above: Performed By: #### C JOBY #### [facility] [address] [place] [address] Dr. Vangie Devine RBC 4.83 106/ul Normal 4.20-5.40 [facility] Comment on above: Performed By: #### C JOBY #### [facility] [address] [place] [address] Dr. Vangie Devine WBC 17.5 103/ul Critically high 4.0-11.0 [facility] Comment on above: Performed By: #### C JOBY #### [facility] [address] [place] [address] HEAD WO CONon [...] MARY ROJAS Date: 2022-06-03 19:15 Normal [facility] CULTURE URINEon 06-03-2022 CULTURE URINE Culture Observations : NO GROWTH. Normal [facility] Comment on above: Performed By: #### P TT, PT #### [facility] [address] [place] [address] Dr. Vangie Devine Covid-19 PCR ([facility])on 05-15 SARS-CoV-2 (COVID-19) RNA SAMIR+probe Ql (Unsp spec) Not detected Normal NOT DETECTED [facility] Comment on above: Result [...] for this test is supported by the [employer] of Health and Human Service's declaration that [...] used). Performed By: #### C BCMAN #### [facility] [address] [place] [address] Dr. Vangie MARK URINE PROFILEon 2 Bilirubin Ql (U) Negative Normal NEGATIVE [facility] Comment on above: Performed By: #### C BC #### [facility] [address] [place] [address] Dr. Vangie Devine Clarity (U) CLEAR Normal CLEAR [facility] Comment on above: Performed By: #### C BC #### [facility] [address] [place] [address] Dr. Vangie Devine Color (U) LT. YELLOW Normal YELLOW [facility] Comment on above: Performed By: #### C BC #### [facility] [address] [place] [address] Dr. Vangie MCCAULEY A micrscopic examination will be performed if indicated. Normal [facility] Comment on above: Performed By: #### C BC #### [facility] [address] [place] [address] Dr. Vangie Devine Glucose Ql (U) 250 mg/dl Abnormal NEGATIVE [facility] Comment on above: Performed By: #### C BC #### [facility] [address] [place] [address] Dr. Vangie Devine Hemoglobin Ql (U) Negative Normal NEGATIVE [facility] Comment on above: Performed By: #### C BC #### [facility] [address] [place] [address] Dr. Vangie Devine Ketones Ql (U) Negative Normal NEGATIVE [facility] Comment on above: Performed By: #### C BC #### [facility] [address] [place] [address] Dr. Vangie Devine LEUKOCYTES Negative Normal NEGATIVE [facility] Comment on above: Performed By: #### C BC #### [facility] [address] [place] [address] Dr. Vangie Devine Nitrite Ql (U) Positive Abnormal NEGATIVE [facility] Comment on above: Performed By: #### C BC #### [facility] [address] [place] [address] Dr. Vangie Devine pH (U) 6.0 [pH] Normal 5-9 [facility] Comment on above: Performed By: #### C BC #### [facility] [address] [place] [address] Dr. Vangie Devine SPEC GRAVITY <=1.005 Abnormal 1.005-<=1.025 [facility] Comment on above: Performed By: #### C BC #### [facility] [address] [place] [address] Dr. Vangie Devine UA PROTEIN Negative Normal NEGATIVE/ TRACE [facility] Comment on above: Performed By: #### C BC #### [facility] [address] [place] [address] Dr. Vangie Devine UR MICRO IND INDICATED Normal [facility] Comment on above: Performed By: #### C BC #### [facility] [address] [place] [address] Dr. Vangie Devine Urobilinogen Qn (U) 0.2 {Jewel'U}/dL Normal 0.2 - 1. 0 [facility] Comment on above: Performed By: #### C BC #### [facility] [address] [place] [address] Dr. Vangie Devine FREE T3on 06-03-2022 FREE T3 2.42 pg/mlL Normal 2.18-3.98 [facility] Comment on above: Performed By: #### F T3 #### [facility] [address] [place] [address] Dr. Vangie Devine FREE T4on 06-03-2022 Free T4 [Mass/Vol] 1.93 ng/dL Critically high 0.76-1.46 [facility] Comment on above: Performed By: #### C BCMAN #### [facility] [address] [place] [address] Dr. Vangie Devine LACTATE/LACTIC ACIDon 2021 Lactate [Moles/Vol] 1.2 mmol/L Normal 0.4-1.9 [facility] Comment on above: Performed By: #### C JOBY #### [facility] [address] [address] [address] Vangie Devine PROF 14(COMP METB)on 022 Albumin [Mass/Vol] 3.9 g/dL Normal 3.4-5.0 [facility] Comment on above: Performed By: #### H STROPN, TSH, CMP #### [facility] [address] [address] [address] Vangie Devine Albumin/Globulin [Mass ratio] 0.9 {ratio} Normal [facility] Comment on above: Performed By: #### H STROPN, TSH, CMP #### [facility] [address] [place] [address] Dr. Vangie Devine ALP [Catalytic activity/Vol] 138 U/L Critically high 46-116 [facility] Comment on above: Performed By: #### H STROPN, TSH, CMP #### [facility] [address] [address] [address] Vangie Devine ALT [Catalytic activity/Vol] 24 U/L Normal 14-59 [facility] Comment on above: Performed By: #### H STROPN, TSH, CMP #### [facility] [address] [address] [address] Vangie Devine Anion gap [Moles/Vol] 11.4 mmol/L Normal [facility] Comment on above: Performed By: #### H STROPN, TSH, CMP #### [facility] [address] [place] [address] Dr. Vangie Devine AST [Catalytic activity/Vol] 23 U/L Normal 15-37 [facility] Comment on above: Performed By: #### H STROPN, TSH, CMP #### [facility] [address] [place] [address] Dr. Vangie Devine Bilirubin [Mass/Vol] 0.5 mg/dL Normal 0.2-1.0 [facility] Comment on above: Performed By: #### H STROPN, TSH, CMP #### [facility] [address] [address] [address] Vangie Devine Calcium [Mass/Vol] 9.5 mg/dL Normal 8.5-10.1 [facility] Comment on above: Performed By: #### H STROPN, TSH, CMP #### [facility] [address] [address] [address] Vangie Devine Chloride [Moles/Vol] 98 mmol/L Normal 98-107 [facility] Comment on above: Performed By: #### H STROPN, TSH, CMP #### [facility] [address] [address] [address] Vangie Devine CO2 [Moles/Vol] 25.3 mmol/L Normal 21.0-32.0 [facility] Comment on above: Performed By: #### H STROPN, TSH, CMP #### [facility] [address] [address] [address] Vangie Devine Creatinine [Mass/Vol] 0.90 mg/dL Normal 0.55-1.02 [facility] Comment on above: Performed By: #### H STROPN, TSH, CMP #### [facility] [address] [address] [address] Vangie Devine EGFR-AF MOROCCAN >60 Normal >=60 [facility] Comment on above: Performed By: #### H STROPN, TSH, CMP #### [facility] [address] [address] [address] Vangie Devine EGFR-NON AF MOROCCAN >60 Normal >=60 [facility] Comment on above: Performed By: #### H STROPN, TSH, CMP #### [facility] [address] [address] [address] Vangie Devine Globulin (S) [Mass/Vol] 4.2 g/dL Normal [facility] Comment on above: Performed By: #### H STROPN, TSH, CMP #### [facility] [address] [address] [address] Vangie Devine Glucose [Mass/Vol] 93 mg/dL Normal 74-106 [facility] Comment on above: Performed By: #### H STROPN, TSH, CMP #### [facility] [address] [place] [address] Dr. Vangie Devine Potassium [Moles/Vol] 3.7 mmol/L Normal 3.5-5.1 [facility] Comment on above: Performed By: #### H STROPN, TSH, CMP #### [facility] [address] [place] [address] Dr. Vangie Devine Protein [Mass/Vol] 8.1 g/dL Normal 6.4-8.2 [facility] Comment on above: Performed By: #### H STROPN, TSH, CMP #### [facility] [address] [place] [address] Dr. Vangie Devine Sodium [Moles/Vol] 131 mmol/L Critically low 136-145 [facility] Comment on above: Performed By: #### H STROPN, TSH, CMP #### [facility] [address] [place] [address] Dr. Vangie Devine Urea nitrogen [Mass/Vol] 14.0 mg/dL Normal 7.0-18.0 [facility] Comment on above: Performed By: #### H STROPN, TSH, CMP #### [facility] [address] [place] [address] Dr. Vangie Devine Urea nitrogen/Creatinine [Mass ratio] 15.6 mg/mg Normal [facility] Comment on above: Performed By: #### H STROPN, TSH, CMP #### [facility] [address] [place] [address] Dr. Vangie Devine PROTIMEon 06-03-2022 INR Coag (PPP) [Relative time] 1.06 {INR} Normal [facility] Comment on above: Performed By: #### C BCMAN #### [facility] [address] [place] [address] Dr. Vangie Devine INR GUIDELINES SEE BELOW Normal [facility] Comment on above: Result Comment: MARY ANN RED INR: 2.0 - 3.0 CONDITIONS NOT LISTED BELOW 2.5 - 3.5 FOR PROSTHETIC HEART VALVE REPLACEMENT 2.5 - 3.5 RECURRENT THROMBOSIS Performed By: #### C BCMAN #### [facility] [address] [place] [address] Dr. Vangie Devine PT Coag (PPP) [Time] 11.4 s Normal 9.0-11.6 [facility] Comment on above: Performed By: #### C BCMAN #### [facility] [address] [place] [address] Dr. Vangie Devine PTTon 06-03-2022 aPTT Coag (Bld) [Time] 31.3 s Normal 22.3-36.2 [facility] Comment on above: Performed By: #### C BCMAN #### [facility] [address] [place] [address] Dr. Vangie Devine TROPONIN, HIGH SENSITIVITYon 06-03-2022 HSTROP 26.3 pg/mL Normal 4.0-51.3 [facility] Comment on above: Result Comment: CUT- OFF POINTS HAVE BEEN ESTABLISHED BASED ON THE FOURTH UNIVERSAL DEFINITIONS OF MYOCARDIAL INFARCTION. THE UPPER REFERENCE LIMIT (URL) OF TROPONIN, DEFINED THE 99TH PERCENTILE OF cTnI DISTRIBUTION IN A REFERENCE POPULATION, HAS BEEN CONFIRMED THE DECISION THRESHOLD FOR NE DIAGNOSIS. Performed By: #### P TT, PT #### [facility] [address] [place] [address] Dr. Vangie Devine TSHon 06-03-2022 TSH 0.150 uIU/mL Critically low 0.358-3.740 [facility] Comment on above: Performed By: #### P TT, PT #### [facility] [address] [place] [address] Dr. Vangie Devine URINE MICROSCOPIC ONLYon BACTERIA TRACE Abnormal NONE SEEN [facility] Comment on above: Performed By: #### C BC #### [facility] [address] [place] [address] Dr. Vangie Devine Bacteria identified Cx Nom (U) INDICATED Normal [facility] Comment on above: Result Comment: dory cated due to positive nitrite Performed By: #### C BC #### [facility] [address] [place] [address] Dr. Vangie Devine CAST NONE SEEN Normal NONE SEEN [facility] Comment on above: Performed By: #### C BC #### [facility] [address] [place] [address] Dr. Vangie Devine Crystals LM Nom (Urine sed) NONE SEEN Normal NONE SEEN [facility] Comment on above: Performed By: #### C BC #### [facility] [address] [place] [address] Dr. Vangie Devine Epithelial cells LM Ql (Urine sed) RARE Normal NONE SEEN /RARE [facility] Comment on above: Performed By: #### C BC #### [facility] [address] [place] [address] Dr. Vangie Devine MUCOUS NONE SEEN Normal NONE SEEN [facility] Comment on above: Performed By: #### C BC #### [facility] [address] [place] [address] Dr. Vangie Devine RBC 0-2 Normal 0-2 [facility] Comment on above: Performed By: #### C BC #### [facility] [address] [place] [address] Dr. Vangie Devine WBC 0-2 Abnormal NONE SEEN [facility] Comment on above: Performed By: #### C BC #### [facility] [address] [place] [address] Dr. Vangie Devine XR CHEST 1 Von [...] MARY ROJAS Date: 2022-06-03 19:25 Normal [facility] XR CHEST 2 Von 05-18-2022 [...] ANGEL SHAFFER Date: 2022-05-18 10:55 Normal [facility] Covid-19 PCR (CVDTBH)on SARS-CoV-2 (COVID-19) RNA SAMIR+probe Ql (Unsp spec) Not detected Normal NOT DETECTED [facility] Comment on above: Result Comment: This test is not yet approved or cleared by the [place] FDA. When there are no FDA-approved or cleared tests available, and other criteria are met, FDA can make tests available under an emergency access mechanism called an Emergency Use Authorization (EUA). The EUA for this test is supported by the Psychiatrist of Health and Human Service's (HHS's) declaration [...] Performed By: #### P TT, PT #### [facility] [address] [address] [address] Vangie Devine CBC AUTO DIFFon 09-29-2022 BASO # 0.1 103/ul Normal 0.0-0.1 [facility] Comment on above: Performed By: #### C BC #### [facility] [address] [place] [address] Dr. Vangie Devine Basophils/100 WBC (Bld) 0.7 % Normal 0.2-2.0 [facility] Comment on above: Performed By: #### C BC #### [facility] [address] [place] [address] Dr. Vangie Devine EO # 0.2 103/ul Normal 0.0-0.7 [facility] Comment on above: Performed By: #### C BC #### [facility] [address] [place] [address] Dr. Vangie Devine Eosinophils/100 WBC (Bld) 2.1 % Normal 0.9-7.0 [facility] Comment on above: Performed By: #### C BC #### [facility] [address] [place] [address] Dr. Vangie Devine Erythrocyte distribution width (RBC) [Ratio] 13.1 % Normal 11.0-15.0 [facility] Comment on above: Performed By: #### C BC #### [facility] [address] [place] [address] Dr. Vangie Devine Hematocrit (Bld) [Volume fraction] 43.2 % Normal 36.0-48.0 [facility] Comment on above: Performed By: #### C BC #### [facility] [address] [place] [address] Dr. Vangie Devine Hemoglobin (Bld) [Mass/Vol] 14.2 g/dL Normal 12.0-16.0 [facility] Comment on above: Performed By: #### C BC #### [facility] [address] [place] [address] Dr. Vangie Devine IG # 0.02 10e3/ul Normal 0.00-0.03 [facility] Comment on above: Performed By: #### C BC #### [facility] [address] [place] [address] Dr. Vangie Devine IG % 0.2 % Normal 0.0-0.5 [facility] Comment on above: Performed By: #### C BC #### [facility] [address] [place] [address] Dr. Vangie Devine LYMPH # 1.9 103/ul Normal 1.2-3.8 [facility] Comment on above: Performed By: #### C BC #### [facility] [address] [place] [address] Dr. Vangie Devine Lymphocytes/100 WBC (Bld) 22.2 % Normal 20.5-60.0 [facility] Comment on above: Performed By: #### C BC #### [facility] [address] [place] [address] Dr. Vangie Devine MANUAL DIFF REQ NO Normal [facility] Comment on above: Performed By: #### C BC #### [facility] [address] [place] [address] Dr. Vangie Devine MCH (RBC) [Entitic mass] 30.5 pg Normal 26.7-34.0 [facility] Comment on above: Performed By: #### C BC #### [facility] [address] [place] [address] Dr. Vangie Devine MCHC (RBC) [Mass/Vol] 32.9 g/dL Normal 29.9-35.2 [facility] Comment on above: Performed By: #### C BC #### [facility] [address] [place] [address] Dr. Vangie Devine MCV (RBC) [Entitic vol] 92.7 fL Normal 81.0-99.0 [facility] Comment on above: Performed By: #### C BC #### [facility] [address] [place] [address] Dr. Vangie Devine MONO # 0.5 103/ul Normal 0.3-0.8 [facility] Comment on above: Performed By: #### C BC #### [facility] [address] [place] [address] Dr. Vangie Devine Monocytes/100 WBC (Bld) 6.0 % Normal 1.7-12.0 [facility] Comment on above: Performed By: #### C BC #### [facility] [address] [place] [address] Dr. Vangie Devine NEUT # 6.0 103/ul Normal 1.4-6.5 [facility] Comment on above: Performed By: #### C BC #### [facility] [address] [place] [address] Dr. Vangie Devine Neutrophils/100 WBC (Bld) 68.8 % Normal 43.0-75.0 [facility] Comment on above: Performed By: #### C BC #### [facility] [address] [place] [address] Dr. Vangie Devine Platelet mean volume (Bld) [Entitic vol] 11.7 fL Normal 9.5-13.5 [facility] Comment on above: Performed By: #### C BC #### [facility] [address] [place] [address] Dr. Vangie Devine PLT 176 103/ul Normal 150-450 [facility] Comment on above: Performed By: #### C BC #### [facility] [address] [place] [address] Dr. Vangie Devine RBC 4.66 106/ul Normal 4.20-5.40 [facility] Comment on above: Performed By: #### C BC #### [facility] [address] [place] [address] Dr. Vangie Devine WBC 8.7 103/ul Normal 4.0-11.0 [facility] Comment on above: Performed By: #### C BC #### [facility] [address] [place] [address] Dr. Vangie Devine PROF CHEM 8 (BAS METB)on Anion gap [Moles/Vol] 13.9 mmol/L Normal [facility] Comment on above: Performed By: #### C BC #### [facility] [address] [place] [address] Dr. Vangie Devine Calcium [Mass/Vol] 9.2 mg/dL Normal 8.5-10.1 [facility] Comment on above: Performed By: #### C BC #### [facility] [address] [address] [address] Vangie Devine Chloride [Moles/Vol] 101 mmol/L Normal 98-107 [facility] Comment on above: Performed By: #### C BC #### [facility] [address] [address] [address] Vangie Devine CO2 [Moles/Vol] 24.2 mmol/L Normal 21.0-32.0 [facility] Comment on above: Performed By: #### C BC #### [facility] [address] [address] [address] Vangie Devine Creatinine [Mass/Vol] 0.87 mg/dL Normal 0.55-1.02 [facility] Comment on above: Performed By: #### C BC #### [facility] [address] [place] [address] Dr. Vangie Devine EGFR-AF MOROCCAN >60 Normal >=60 [facility] Comment on above: Performed By: #### C BC #### [facility] [address] [place] [address] Dr. Vangie Devine EGFR-NON AF MOROCCAN >60 Normal >=60 [facility] Comment on above: Performed By: #### C BC #### [facility] [address] [address] [address] Vangie Devine Glucose [Mass/Vol] 89 mg/dL Normal 74-106 [facility] Comment on above: Performed By: #### C BC #### [facility] [address] [address] [address] Vangie Devine Potassium [Moles/Vol] 4.1 mmol/L Normal 3.5-5.1 [facility] Comment on above: Performed By: #### C BC #### [facility] [address] [place] [address] Dr. Vangie Devine Sodium [Moles/Vol] 135 mmol/L Critically low 136-145 [facility] Comment on above: Performed By: #### C BC #### [facility] [address] [place] [address] Dr. Vangie Devine Urea nitrogen [Mass/Vol] 9.0 mg/dL Normal 7.0-18.0 [facility] Comment on above: Performed By: #### C BC #### [facility] [address] [place] [address] Dr. Vangie Devine Urea nitrogen/Creatinine [Mass ratio] 10.3 mg/mg Normal [facility] Comment on above: Performed By: #### C BC #### [facility] [address] [place] [address] Dr. Vangie Devine PROTIMEon 05-12-2022 INR Coag (PPP) [Relative time] 1.96 {INR} Normal [facility] Comment on above: Performed By: #### P T #### [facility] [address] [place] [address] Dr. Vangie Devine INR GUIDELINES SEE BELOW Normal [facility] Comment on above: Result Comment: MARY ANN RED INR: 2.0 - 3.0 CONDITIONS NOT LISTED BELOW 2.5 - 3.5 FOR PROSTHETIC HEART VALVE REPLACEMENT 2.5 - 3.5 RECURRENT THROMBOSIS Performed By: #### P T #### [facility] [address] [place] [address] Dr. Vangie Devine PT Coag (PPP) [Time] 20.3 s Critically high 9.0-11.6 [facility] Comment on above: Performed By: #### P T #### [facility] [address] [place] [address] Dr. Vangie Devine T4, T3U, FTI LABCORPon 05-07 Free Thyroxine Index 4.7 Normal 1.2-4.9 [facility] Comment on above: Performed By: #### T HYLC #### [facility] [address] [place] [address] Dr. Vangie Devine T3 Uptake 34 % Normal 24-39 [facility] Comment on above: Performed By: #### T HYLC #### [facility] [address] [place] [address] Dr. Vangie Devine T4 [Mass/Vol] 13.8 ug/dL Critically high 4.5-12.0 [facility] Comment on above: Performed By: #### T HYLC #### [facility] [address] [place] [address] Dr. Vangie Devine TSHon 05-06-2022 TSH 0.063 uIU/mL Critically low 0.358-3.740 [facility] Comment on above: Performed By: #### T SH #### [facility] [id number] Vangie Devine ECHOCARDIO M/2D COMPLETEon 0 03-31-2022 ECHOCARDIO M/2D COMPLETE Patient: JAVIER LINK Exam Date: 03/31/2022 : 1970 Gender:F Ordering : DR DEENA BENTON M.D. Admission #: [id number] Family : Order #: [id number] CLICK HERE TO VIEW EXAM ECHOCARDIOGRAM REPORT [...] M.D. on 03/31/2022 at 18:35 Normal [facility] CBC AUTO DIFFon 03-28-2022 BASO # 0.1 103/ul Normal 0.0-0.1 [facility] Comment on above: Performed By: #### C BC #### [facility] [address] [place] [address] Dr. Vangie Devine Basophils/100 WBC (Bld) 0.6 % Normal 0.2-2.0 [facility] Comment on above: Performed By: #### C BC #### [facility] [address] [place] [address] Dr. Vangie Devine EO # 0.2 103/ul Normal 0.0-0.7 [facility] Comment on above: Performed By: #### C BC #### [facility] [address] [place] [address] Dr. Vangie Devine Eosinophils/100 WBC (Bld) 2.0 % Normal 0.9-7.0 [facility] Comment on above: Performed By: #### C BC #### [facility] [address] [place] [address] Dr. Vangie Devine Erythrocyte distribution width (RBC) [Ratio] 12.7 % Normal 11.0-15.0 [facility] Comment on above: Performed By: #### C BC #### [facility] [address] [place] [address] Dr. Vangie Devine Hematocrit (Bld) [Volume fraction] 42.6 % Normal 36.0-48.0 [facility] Comment on above: Performed By: #### C BC #### [facility] [address] [place] [address] Dr. Vangie Devine Hemoglobin (Bld) [Mass/Vol] 13.9 g/dL Normal 12.0-16.0 [facility] Comment on above: Performed By: #### C BC #### [facility] [address] [place] [address] Dr. Vangie Devine IG # 0.03 10e3/ul Normal 0.00-0.03 [facility] Comment on above: Performed By: #### C BC #### [facility] [address] [place] [address] Dr. Vangie Devine IG % 0.4 % Normal 0.0-0.5 [facility] Comment on above: Performed By: #### C BC #### [facility] [address] [place] [address] Dr. Vangie Devine LYMPH # 2.3 103/ul Normal 1.2-3.8 [facility] Comment on above: Performed By: #### C BC #### [facility] [address] [place] [address] Dr. Vangie Devine Lymphocytes/100 WBC (Bld) 28.7 % Normal 20.5-60.0 [facility] Comment on above: Performed By: #### C BC #### [facility] [address] [place] [address] Dr. Vangie Devine MANUAL DIFF REQ NO Normal [facility] Comment on above: Performed By: #### C BC #### [facility] [address] [place] [address] Dr. Vangie Devine MCH (RBC) [Entitic mass] 31.0 pg Normal 26.7-34.0 [facility] Comment on above: Performed By: #### C BC #### [facility] [address] [place] [address] Dr. Vangie Devine MCHC (RBC) [Mass/Vol] 32.6 g/dL Normal 29.9-35.2 [facility] Comment on above: Performed By: #### C BC #### [facility] [address] [place] [address] Dr. Vangie Devine MCV (RBC) [Entitic vol] 95.1 fL Normal 81.0-99.0 [facility] Comment on above: Performed By: #### C BC #### [facility] [address] [address] [address] Vangie Devine MONO # 0.5 103/ul Normal 0.3-0.8 [facility] Comment on above: Performed By: #### C BC #### [facility] [address] [address] [address] Vangie Devine Monocytes/100 WBC (Bld) 6.8 % Normal 1.7-12.0 [facility] Comment on above: Performed By: #### C BC #### [facility] [address] [address] [address] Vangie Devine NEUT # 4.9 103/ul Normal 1.4-6.5 [facility] Comment on above: Performed By: #### C BC #### [facility] [address] [place] [address] Dr. Vangie Devine Neutrophils/100 WBC (Bld) 61.5 % Normal 43.0-75.0 [facility] Comment on above: Performed By: #### C BC #### [facility] [address] [address] [address] Vangie Devine Platelet mean volume (Bld) [Entitic vol] 11.0 fL Normal 9.5-13.5 [facility] Comment on above: Performed By: #### C BC #### [facility] [address] [address] [address] Vangie Devine PLT 224 103/ul Normal 150-450 [facility] Comment on above: Performed By: #### C BC #### [facility] [address] [address] [address] Vangie Devine RBC 4.48 106/ul Normal 4.20-5.40 [facility] Comment on above: Performed By: #### C BC #### [facility] [address] [address] [address] Vangie Devine WBC 7.9 103/ul Normal 4.0-11.0 [facility] Comment on above: Performed By: #### C BC #### [facility] [id number] Vangie Devine LIPID PROFILEon 03-28-2022 CHOL-HDL RATIO NORM SEE BELOW Normal [facility] Comment on above: Result Comment: 3.3 - 4.4 LOW RISK 4.4 - 7.1 AVERAGE RISK 7.1 - 11.0 MODERATE RISK >11.0 HIGH RISK Performed By: #### C BC #### [facility] [address] [address] [address] Vangie Devine Cholesterol [Mass/Vol] 103 mg/dL Normal <=200 [facility] Comment on above: Performed By: #### C BC #### [facility] [address] [address] [address] Vangie Devine Cholesterol in HDL [Mass/Vol] 39 mg/dL Critically low 40-60 [facility] Comment on above: Performed By: #### C BC #### [facility] [address] [address] [address] Vangie Devine Cholesterol in LDL [Mass/Vol] 46.8 mg/dL Normal [facility] Comment on above: Performed By: #### C BC #### [facility] [address] [address] [address] Vangie Devine Cholesterol.total/Chol esterol in HDL [Mass ratio] 2.6 {ratio} Normal [facility] Comment on above: Performed By: #### C BC #### [facility] [address] [address] [address] Vangie Devine HDL NORMAL > or = 60 mg/dl - LO W CARDIOVASCULAR RISK <40 mg/dl - HIGH CARDIOVASCULAR RISK Normal [facility] Comment on above: Performed By: #### C BC #### [facility] [id number] Vangie Devine LDL CALC NORMAL SEE BELOW Normal [facility] Comment on above: Result Comment: <100 mg/dl OPTIMAL 100 - 129 mg/dl NEAR OR ABOVE OPTIMAL 130 - 159 mg/dl BORDERLINE HIGH 160 - 189 mg/dl HIGH >190 mg/dl VERY HIGH Performed By: #### C BC #### [facility] [address] [place] [address] Dr. Vangie Devine Triglyceride [Mass/Vol] 86 mg/dL Normal <=150 [facility] Comment on above: Performed By: #### C BC #### [facility] [address] [place] [address] Dr. Vangie Devine VLDL CALC 17.2 mg/dL Normal [facility] Comment on above: Performed By: #### C BC #### [facility] [address] [place] [address] Dr. Vangie Devine PROF 14(COMP METB)on 022 Albumin [Mass/Vol] 3.5 g/dL Normal 3.4-5.0 [facility] Comment on above: Performed By: #### C BC #### [facility] [address] [place] [address] Dr. Vangie Devine Albumin/Globulin [Mass ratio] 0.9 {ratio} Normal [facility] Comment on above: Performed By: #### C BC #### [facility] [address] [place] [address] Dr. Vangie Devine ALP [Catalytic activity/Vol] 127 U/L Critically high 46-116 [facility] Comment on above: Performed By: #### C BC #### [facility] [address] [place] [address] Dr. Vangie Devine ALT [Catalytic activity/Vol] 29 U/L Normal 14-59 [facility] Comment on above: Performed By: #### C BC #### [facility] [address] [place] [address] Dr. Vangie Devine Anion gap [Moles/Vol] 15.3 mmol/L Normal [facility] Comment on above: Performed By: #### C BC #### [facility] [address] [place] [address] Dr. Vangie Devine AST [Catalytic activity/Vol] 21 U/L Normal 15-37 [facility] Comment on above: Performed By: #### C BC #### [facility] [address] [place] [address] Dr. Vangie Devine Bilirubin [Mass/Vol] 0.5 mg/dL Normal 0.2-1.0 [facility] Comment on above: Performed By: #### C BC #### [facility] [address] [place] [address] Dr. Vangie Devine Calcium [Mass/Vol] 8.9 mg/dL Normal 8.5-10.1 [facility] Comment on above: Performed By: #### C BC #### [facility] [address] [place] [address] Dr. Vangie Devine Chloride [Moles/Vol] 101 mmol/L Normal 98-107 [facility] Comment on above: Performed By: #### C BC #### [facility] [address] [place] [address] Dr. Vangie Devine CO2 [Moles/Vol] 25.8 mmol/L Normal 21.0-32.0 [facility] Comment on above: Performed By: #### C BC #### [facility] [address] [place] [address] Dr. Vangie Devine Creatinine [Mass/Vol] 0.89 mg/dL Normal 0.55-1.02 [facility] Comment on above: Performed By: #### C BC #### [facility] [address] [place] [address] Dr. Vangie Devine EGFR-AF MOROCCAN >60 Normal >=60 [facility] [facility] Comment on above: Performed By: #### C BC #### [facility] [address] [place] [address] Dr. Vangie Devine EGFR-NON AF MOROCCAN >60 Normal >=60 [facility] Comment on above: Performed By: #### C BC #### [facility] [address] [place] [address] Dr. Vangie Devine Globulin (S) [Mass/Vol] 4.1 g/dL Normal [facility] Comment on above: Performed By: #### C BC #### [facility] [address] [place] [address] Dr. Vangie Devine Glucose [Mass/Vol] 94 mg/dL Normal 74-106 [facility] Comment on above: Performed By: #### C BC #### [facility] [address] [address] [address] Vangie Devine Potassium [Moles/Vol] 5.1 mmol/L Normal 3.5-5.1 [facility] Comment on above: Performed By: #### C BC #### [facility] [address] [address] [address] Vangie Devine Protein [Mass/Vol] 7.6 g/dL Normal 6.4-8.2 [facility] Comment on above: Performed By: #### C BC #### [facility] [address] [address] [address] Vangie Devine Sodium [Moles/Vol] 137 mmol/L Normal 136-145 [facility] Comment on above: Performed By: #### C BC #### [facility] [address] [address] [address] Vangie Devine Urea nitrogen [Mass/Vol] 9.0 mg/dL Normal 7.0-18.0 [facility] Comment on above: Performed By: #### C BC #### [facility] [address] [address] [address] Vangie Devine Urea nitrogen/Creatinine [Mass ratio] 10.1 mg/mg Normal [facility] Comment on above: Performed By: #### C BC #### [facility] [address] [address] [address] Vangie Devine Cardiac Stress Teston 2021 Cardiac Stress Test [address], [address] [place] [address] Exercise Stress Test Patient Name: JAVIER Ordering Physician: [id number] Nolan Garibay DO [facility] [place] Study Date: 01/26/2022 Reading Physician: [id number] Myke Levin MD MRN/PID: [id number] Supervising [id number] Myke Levin Physician: Accession/Order#: [id number] Referring Physician: [id number] NOLAN GARIBAY Date of : 1970 PCP: Gender: F Fellow: Height: 147.32 cm Nurse: Joe Elmore RN Weight: 84.37 kg Wiener Packer: ADE BSA: 1.77 m2 Technologist: BMI: 38.87 kg/m2 Additional Staff: Age: 52 years cc report to: Patient Location: cc report to: [id number] Nolan Garibay DO Study Type: Cardiac Stress Test Diagnosis/ICD: I21.09-ST elevation (STEMI) myocardial infarction involving other coronary artery of anterior wall; I51.3-Intracardiac thrombosis, not elsewhere classified Indication: NE Procedure/CPT: Stress Test Interpretation-[id number]; Stress Test Supervision-[id number] Falls Risk: Low: Patient has low risk [...] rhythm. Normal sinus rhythm with anteroseptal wall NE. Stress Stage Data: + +-- -+------+-------+ HR [...] The adequate level of stress was achieved. [id number] Myke Levin MD Electronically signed on 01/26/2022 at 5:41:45 PM Final Normal [facility] Cardiac Stress Test [facility] DO Work Phone: Tobacco Screening.on 022 Adult depression screening assessment Yes -[facility] [facility] 250 DO Work Phone: Adult depression screening assessment No [facility] y 250 DO Work Phone: Fall risk assessment c) Not medically indicated -[facility] [facility] 250 DO Work Phone: Tobacco use status [facility] b) No [facility] Heart[facility]ie y 250 DO Work Phone: Tobacco Screening. 0-Not at all [facility] Heart[facility] y 250 DO Work Phone: Tobacco Screening. 1-Several days [facility] Cleo hurtado 250 DO Work Phone: Tobacco Screening. 2-More than half the days [facility] DO Work Phone: Tobacco Screening. Not difficult at all [facility] Cleo hurtado 250 DO Work Phone: Laboratory - Coagulationon 0 01-17-2022 INR Coag (Bld) [Relative time] 1.56 {INR} [facility] Cleo hurtado 250 DO Work Phone: PROTIMEon 01-17-2022 INR Coag (PPP) [Relative time] 1.56 {INR} Normal [facility] Comment on above: Performed By: #### C JOBY #### [facility] [address] [address] [address] Vangie Devine INR GUIDELINES SEE BELOW Normal [facility] Comment on above: Result Comment: MARY ANN RED INR: 2.0 - 3.0 CONDITIONS NOT LISTED BELOW 2.5 - 3.5 FOR PROSTHETIC HEART VALVE REPLACEMENT 2.5 - 3.5 RECURRENT THROMBOSIS Performed By: #### Baldemar HEMPHILL #### [facility] [address] [address] [address] Vangie Devine PT Coag (PPP) [Time] 16.4 s Critically high 9.0-11.6 [facility] Comment on above: Performed By: #### C JOBY #### [facility] [address] [address] [address] Vangie Devine Activated partial thrombopla stin time (aPTT) in platelet poor plasma by coagulation aOrdered By: Isidra Garibay on 01-14-2022 aPTT Coag (PPP) [Time] 34.5 s 25.1-36.5 [facility] Creatinine and Glomerular fi ltration rate.predicted panel (S/P/Bld)Ordered By: Isidra Garibay on 01-14-2022 Creatinine [Mass/Vol] 0.69 mg/dL 0.44-1.03 [facility] Estimated glomerular filtrat ion rate (GFR) non- AmericanOrdered By: Isidra Garibay on 01-14-2022 GFR/1.73 sq M.predicted among non-blacks MDRD (S/P/Bld) [Vol rate/Area] > 60 mL/Min [facility] - CoagulationOrde red By: Isidra Garibay on 01-14-2022 PT Coag (PPP) [Time] 17.7 s 9.0-12.9 [facility] No Panel InformationOrdered By: Isidra Garibay on 01-14-2022 Estimated GFR () > 60 mL/Min [facility] Comment on above: GFR estimated refere nce range: According to KDOQI guidelines, <60 ml/min/1.73m2 is sufficient to diagnose a patient with chronic kidney disease. Pharmacy Creatinine Clearance (Chem 94.39 [facility] Platelet poor plasma interna tional normalized ratio (INR) by coagulation assay (relatOrdered By: Isidra Garibay on 01-14-2022 INR Coag (PPP) [Relative time] 1.6 {INR} [facility] Comment on above: INR Therapeutic Rang e [...] on 01-14-2022 Calcium [Mass/Vol] 8.5 mg/dL 8.2-10.2 [facility] Serum or plasma chloride francesca surement (moles/volume)Ordered By: Isidra Garibay on 01-14-2022 Chloride [Moles/Vol] 99 mmol/L 95-114 [facility] Serum or plasma glucose ivana urement (mass/volume)Ordered By: Isidra Garibay on 01-14-2022 Glucose [Mass/Vol] 101 mg/dL 70-100 [facility] Comment on above: ADA recommended refe rence range Random Glucose Reference Range is dependent on time and content of last meal. Glucose of more than 200 mg/dL in a nonstressed, ambulatory subject supports the diagnosis of Diabetes Mellitus. Serum or plasma potassium me asurement (moles/volume)Ordered By: Isidra Garibay on 01-14-2022 Potassium [Moles/Vol] 4.2 mmol/L 3.5-5.1 [facility] Serum or plasma sodium measu rement (moles/volume)Ordered By: Isidra Garibay on 01-14-2022 Sodium [Moles/Vol] 129 mmol/L 136-146 [facility] Serum or plasma total carbon dioxide measurement (moles/volume)Ordered By: Isidra Garibay on 01-14-2022 CO2 [Moles/Vol] 21.8 mmol/L 22.0-30.0 [facility] Serum or plasma urea nitroge n measurement (mass/volume)Ordered By: Isidra Garibay on 01-14-2022 Urea nitrogen [Mass/Vol] 8 mg/dL 9-23 [facility] Albumin [Mass/volume] in Ser um or PlasmaOrdered By: Isidra Garibay on 01-11-2022 Albumin [Mass/Vol] 2.9 g/dL 3.2-5.5 [facility] Cholesterol [Mass/volume] in Serum or PlasmaOrdered By: Isidra Garibay on 01-11-2022 Cholesterol [Mass/Vol] 109 mg/dL 140-200 [facility] Comment on above: Chol less than 200 m g/dl low risk Chol 201-239 mg/dl borderline risk Chol 240 mg/dl and greater high risk Cholesterol in LDL Calc [Mas s/Vol]Ordered By: Isidra Garibay on 01-11-2022 Cholesterol in LDL [Mass/Vol] 49 mg/dL 0-100 [facility] Comment on above: LDL ATP III CLASSIFI CATION LDL less than 100 mg/dL Optimal LDL 100-129 mg/dL Near or above optimal LDL 130-159 mg/dL Borderline high LDL 160-189 mg/dL High LDL greater than 189 mg/dL Very high Cholesterol in VLDL Calc [Ma ss/Vol]Ordered By: Isidra Garibay on 01-11-2022 Cholesterol in VLDL [Mass/Vol] 16 mg/dL [facility] Globulin Calc (S) [Mass/Vol] Ordered By: Isidra Garibay on 01-11-2022 Globulin (S) [Mass/Vol] 3.1 g/dL [facility] Glucose Glucometer (BldC) [M ass/Vol]Ordered By: Isidra Garibay on 01-11-2022 Glucose [Mass/Vol] 118 mg/dL [facility] Comment on above: Random Glucose Refer ence Range is dependent on time and content of last meal. Glucose of more than 200 mg/dL in a nonstressed, ambulatory subject supports the diagnosis of Diabetes Mellitus. No Panel InformationOrdered By: Isidra Garibay on 01-11-2022 Bedside Glucose Comment Glu2: cleaned meter [facility] Protein [Mass/volume] in Ser um or PlasmaOrdered By: Isidra Garibay on 01-11-2022 Protein [Mass/Vol] 6.0 g/dL 6.1-7.9 [facility] Serum or plasma alanine gore otransferase measurement without P-5'-P (enzymatic activiOrdered By: Isidra Garibay on 01-11-2022 ALT No additional P-5'-P [Catalytic activity/Vol] 58 U/L 10-60 [facility] Serum or plasma albumin/glob ulin mass ratioOrdered By: Isidra Garibay on 01-11-2022 Albumin/Globulin [Mass ratio] 0.9 {ratio} [facility] Serum or plasma alkaline carl sphatase measurement (enzymatic activity/volume)Ordered By: Isidra Garibay on 01-11-2022 ALP [Catalytic activity/Vol] 85 U/L 32-92 [facility] Serum or plasma aspartate am inotransferase measurement (enzymatic activity/volume)Ordered By: Isidra Garibay on 01-11-2022 AST [Catalytic activity/Vol] 212 U/L 10-42 [facility] Serum or plasma high density lipoprotein (HDL) cholesterol measurementOrdered By: Isidra Garibay on 01-11-2022 Cholesterol in HDL [Mass/Vol] 43 mg/dL 35-85 [facility] Comment on above: HDL CHOL ATP-III CLA SSIFICATION Cardiovascular Risk HDL > or equal to 60 mg/dL LOW HDL < 40 mg/dL HIGH Serum or plasma total biliru bin measurement (mass/volume)Ordered By: Isidra Garibay on 01-11-2022 Bilirubin [Mass/Vol] 0.6 mg/dL 0.3-1.2 [facility] Serum or plasma total choles terol/high density lipoprotein (HDL) cholesterol mass ratOrdered By: Isidra Garibay on 01-11-2022 Cholesterol.total/Chol esterol in HDL [Mass ratio] 2.5 {ratio} [facility] Triglyceride [Mass/volume] i n Serum or PlasmaOrdered By: Isidra Garibay on 01-11-2022 Triglyceride [Mass/Vol] 83 mg/dL 35-149 [facility] Comment on above: TRIG ATP III CLASSIF [...] 01-11-2022 Troponin I.cardiac High sensitivity method [Mass/Vol] 52791 pg/mL 0-15 [facility] Comment on above: Results called at 0805 on 01/11/22 AMYLASEon 01-10-2022 Amylase [Catalytic activity/Vol] 37 U/L Normal 25-115 [facility] Comment on above: Performed By: #### C BC #### [facility] [address] [address] [address] Vangie Devine CARDIAC CHASTITY ADMITon 022 CK [Catalytic activity/Vol] 206 U/L Critically high 26-192 [facility] Comment on above: Performed By: #### C BC #### [facility] [address] [address] [address] Vangie Devine CK.MB [Mass/Vol] 3.65 ng/mL Critically high <=3.60 [facility] Comment on above: Performed By: #### C BC #### [facility] [address] [place] [address] Dr. Vangie Devine HSTROP 80.4 pg/mL Critically high 4.0-51.[address] [facility] Comment on above: Result Comment: CUT- OFF POINTS HAVE BEEN ESTABLISHED BASED ON THE FOURTH UNIVERSAL DEFINITIONS OF MYOCARDIAL INFARCTION. THE UPPER REFERENCE LIMIT (URL) OF TROPONIN, DEFINED THE 99TH PERCENTILE OF cTnI DISTRIBUTION IN A REFERENCE POPULATION, HAS BEEN CONFIRMED THE DECISION THRESHOLD FOR NE DIAGNOSIS. Performed By: #### C BC #### [facility] [address] [place] [address] Dr. Vangie Devine AJ 119 ng/mL Critically high 9-[address] [facility] Comment on above: Performed By: #### C BC #### [facility] [address] [place] [address] Dr. Vangie Devine CBC W MANUAL DIFFon 01-11-20 22 ATYPICAL LYMPH # 0.93 103/ul Normal [facility] Comment on above: Performed By: #### C BCMAN #### [facility] [address] [place] [address] Dr. Vangie Devine ATYPICAL LYMPH % 3 % Normal [facility] Comment on above: Performed By: #### C BCMAN #### [facility] [address] [place] [address] Dr. Vangie Devine BAND # 1.6 103/ul Critically high 0.0-0.[address] [facility] Comment on above: Performed By: #### C BCMAN #### [facility] [address] [place] [address] Dr. aVngie Devine BAND % 5 % Normal 0-5 [facility] Comment on above: Performed By: #### C BCMAN #### [facility] [address] [place] [address] Dr. Vangie Devine BASOM # 0.00 103/ul Normal 0.00-0.10 [facility] Comment on above: Performed By: #### C BCMAN #### [facility] [address] [place] [address] Dr. Vangie Devine BASOM % 0.0 % Critically low 0.2-2.0 [facility] Comment on above: Performed By: #### C JOBY #### [facility] [address] [place] [address] Dr. Vangie Devine BLAST # 0.0 103/ul Normal [facility] Comment on above: Performed By: #### C JOBY #### [facility] [address] [place] [address] Dr. Vangie Devine BLAST % Normal [facility] Comment on above: Performed By: #### C JOBY #### [facility] [address] [place] [address] Dr. Vangie Devine CORRECTED WBC Normal 4.0-11.0 [facility] Comment on above: Performed By: #### C JOBY #### [facility] [address] [place] [address] Dr. Vangie Devine EOS # 0.00 103/ul Normal 0.00-0.70 [facility] Comment on above: Performed By: #### Baldemar HEMPHILL #### [facility] [address] [place] [address] Dr. Vangie Devine EOS% 0.0 % Critically low 0.9-7.0 [facility] Comment on above: Performed By: #### Baldemar HEMPHILL #### [facility] [address] [place] [address] Dr. Vangie Devine HCT 42.0 % Normal 36.0-48.0 [facility] Comment on above: Performed By: #### Baldemar HEMPHILL #### [facility] [address] [place] [address] Dr. Vangie Devine HGB 14.6 g/dl Normal 12.0-16.0 [facility] Comment on above: Performed By: #### C JOBY #### [facility] [address] [place] [address] Dr. Vangie Devine HYPERSEG NEUT 1+ Normal [facility] Comment on above: Performed By: #### Baldemar HEMPHILL #### [facility] [address] [place] [address] Dr. Vangie Devine LYMPHM # 4.03 103/ul Critically high 1.20-3.80 [facility] Comment on above: Performed By: #### C JOBY #### [facility] [address] [address] [address] Vangie Devine LYMPHM% 13.0 % Critically low 20.5-60.0 [facility] Comment on above: Performed By: #### C BCHERIBERTO #### [facility] [address] [address] [address] Vangie Devine MCH 32.7 pg Normal 26.7-34.0 [facility] Comment on above: Performed By: #### C JOBY #### [facility] [address] [address] [address] Vangie Devine MCHC 34.8 g/dl Normal 29.9-35.2 [facility] Comment on above: Performed By: #### C JOBY #### [facility] [address] [place] [address] Dr. Vangie Devine MCV 94.2 fL Normal 81.0-99.0 [facility] Comment on above: Performed By: #### C JOBY #### [facility] [address] [place] [address] Dr. Vangie Devine METAMYELOCYTE # 1.2 103/ul Normal [facility] Comment on above: Performed By: #### C JOBY #### [facility] [address] [place] [address] Dr. Vangie Devine METAMYELOCYTE % 4 % Normal [facility] Comment on above: Performed By: #### C BCHERIBERTO #### [facility] [address] [place] [address] Dr. Vangie Devine MONOM# 0.93 103/ul Critically high 0.30-0.80 [facility] Comment on above: Performed By: #### C JOBY #### [facility] [address] [place] [address] Dr. Vanige Devine MONOM% 3.0 % Normal 1.7-12.0 [facility] Comment on above: Performed By: #### C JOBY #### [facility] [address] [address] [address] Vangie Devine MPV 10.4 fL Normal 9.5-13.5 [facility] Comment on above: Performed By: #### C JOBY #### [facility] [address] [address] [address] Vangie Devine MYELOCYTE # 0.9 103/ul Normal [facility] Comment on above: Performed By: #### C JOBY #### [facility] [address] [address] [address] Vangie Devine MYELOCYTE % 3 % Normal [facility] Comment on above: Performed By: #### C JOBY #### [facility] [address] [place] [address] Dr. Vangie Devine NRBC 0 Normal [facility] Comment on above: Performed By: #### C JOBY #### [facility] [address] [place] [address] Dr. Vangie Devine PLT 460 103/ul Critically high 150-450 [facility] Comment on above: Performed By: #### C JOBY #### [facility] [address] [place] [address] Dr. Vangie Devine RBC 4.46 106/ul Normal 4.20-5.40 [facility] Comment on above: Performed By: #### C JOBY #### [facility] [address] [place] [address] Dr. Vangie Devine RDW 12.6 % Normal 11.0-15.0 [facility] Comment on above: Performed By: #### C JOBY #### [facility] [address] [place] [address] Dr. Vangie Devine SEG # 21.39 103/ul Critically high 1.40-6.50 [facility] Comment on above: Performed By: #### C JOBY #### [facility] [address] [place] [address] Dr. Vangie Devine SEG % 69.0 % Normal 43.0-75.0 [facility] Comment on above: Performed By: #### C JOBY #### [facility] [address] [place] [address] Dr. Vangie Devine WBC 31.0 103/ul Critically high 4.0-11.0 [facility] Comment on above: Performed By: ###Ravindra HEMPHILL #### [facility] [address] [place] [address] Dr. Vangie Devine Covid-19 PCR ([facility])on 12-14 SARS-CoV-2 (COVID-19) RNA SAMIR+probe Ql (Unsp spec) Not detected Normal NOT DETECTED [facility] Comment on above: Result [...] for this test is supported by the [employer] of Health and Human Service's declaration that [...] used). Performed By: #### Baldemar HEMPHILL #### [facility] [address] [place] [address] Dr. Vangie Devine LIPASEon 01-10-2022 Lipase [Catalytic activity/Vol] 63.0 U/L Critically low 73.0-393.0 [facility] Comment on above: Performed By: #### Baldemar HEMPHILL #### [facility] [address] [place] [address] Dr. Vangie Devine Laboratory - Chemistry and C hemistry - challengeOrdered By: Isidra Garibay on 01-10-2022 Magnesium [Mass/Vol] 2.0 mg/dL 1.6-2.6 [facility] PROTIMEon 01-10-2022 INR Coag (PPP) [Relative time] 1.01 {INR} Normal [facility] Comment on above: Performed By: #### P TT, PT #### [facility] [address] [place] [address] [address] [address] Vangie Devine INR GUIDELINES SEE BELOW Normal [facility] Comment on above: Result Comment: MARY ANN RED INR: 2.0 - 3.0 CONDITIONS NOT LISTED BELOW 2.5 - 3.5 FOR PROSTHETIC HEART VALVE REPLACEMENT 2.5 - 3.5 RECURRENT THROMBOSIS Performed By: #### P TT, PT #### [facility] [address] [address] [address] Vangie Devine PT Coag (PPP) [Time] 10.9 s Normal 9.0-11.6 [facility] Comment on above: Performed By: #### P TT, PT #### [facility] [address] [place] [address] Dr. Vangie Devine PTTon 01-10-2022 aPTT Coag (Bld) [Time] 26.3 s Normal 22.3-36.2 [facility] Comment on above: Performed By: #### P TT, PT #### [facility] [address] [place] [address] Dr. Vangie Devine XR CHEST 1 Von 01-10-2022 XR CHEST 1 V CLINICAL HISTORY: Chest pain COMPARISON: Chest radiograph 12/20/2015 at [facility]. FINDINGS: Portable AP view of the chest obtained. Cardiomediastinal silhouette is normal. Lungs are clear, no evidence of infiltrate, suspicious nodule, or mass. No evidence of significant pleural fluid on this portable projection. No acute bony abnormality. IMPRESSION: No acute abnormality. Electronically authenticated by: MADELAINE ALVA Date: 2022-01-10 10:16 Normal [facility] WRIST LEFT 3 VWSon 2 WRIST LEFT 3 VWS [facility] Department of Radiology [address] [place] [id number] Patient Name: JAVIER LINK : 1970 Sex: F Age: Race: White Pt. 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 Electronically signed: QUANG RUFFIN. Transcribed by: [email or web address], User Resident: Electronically Signed by: QUANG RUFFIN @ 09/10/2021 09:04 AM Normal The [facility] Comment on above: Order Comment: Evalu ate Operative Reporton Operative Report MR#: [id number] S [facility] Pt. Name: Javier Link Room #: 0C Discharge Date: Birthdate: 1970 OPERATIVE REPORT DATE OF SURGERY: 07/22/2021 SURGEON: Rafi Biswas M.D. PREOPERATIVE DIAGNOSIS: Kienbock's disease, stage IV, left lunate. POSTOPERATIVE DIAGNOSIS: Kienbock's disease, stage IV, left lunate. PROCEDURE: Proximal row carpectomy, left wrist. NOVELTY TWISTER TENDER: Maricarmen Liao M.D. ANESTHESIA: Regional. INDICATION [...] took some 3-0 TiCron and put a [id number]-[id number] suture in that dorsal portion of the TFCC right near the ulnar styloid where the small tear was. The volar part of the TFCC looks good. Once that was in, the dorsal capsule was closed with multiple oxnijj-lp-ydnbl sutures of 2-0 Vicryl. The subcutaneous tissue [...] Biswas M.D. Date Trans: 07/22/2021 10:32 A/mmo [id number] cc: Moriah Mack M.D. [address] [place] [id number] Normal The [facility] POC GLUCOSE LABon 07-22-2021 Glucose [Mass/Vol] 85 mg/dL Normal 70-100 [facility] Comment on above: Performed By: #### 8 [id number] #### [address] MRI WRIST WO CONTRAST RIGHTo n 06-09-2021 MRI WRIST WO CONTRAST RIGHT [facility] Department of Radiology [address] [place] [id number] Patient Name: JAVIER LINK : 1970 Sex: F Age: Race: White Pt. 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 Electronically signed: Liz Harp. Transcribed by: [email or web address], User Resident: Electronically Signed by: LIZ HARP @ 06/11/2021 09:46 AM Normal [facility] Comment on above: Order Comment: Evide nce Keinbock's R wrist on outside x-ray, evaluate for staging and surgical planning. , Side: RIGHT WRIST LEFT 3 [facility] 1 WRIST LEFT 3 S [facility] Department of Radiology [address] [place] [id number] Patient Name: JAVIER LINK : 1970 [...] arthritis. Electronically signed: Alonso Iglesias. Transcribed by: [email or web address], User Resident: Electronically Signed by: ALONSO IGLESIAS @ 05/19/2021 12:56 PM Normal [facility] Comment on above: Order Comment: evalu ate WRIST RIGHT 3 Son 05-18-20 21 WRIST RIGHT 3 S [facility] Department of Radiology [address] [place] [id number] Patient Name: JAVIER LINK : 1970 [...] variance. Electronically signed: Alonso Iglesias. Transcribed by: [email or web address], User Resident: Electronically Signed by: ALONSO IGLESIAS @ 05/19/2021 12:55 PM Normal [facility] Comment on above: Order Comment: evalu ate Vital Signs Date Time Vital Sign Value Performing Clinician Facility 01-20-2022 12:07-0400 Diastolic blood pressure 58 mm[Hg] No PCP None [facility] DO Work Phone: 01-20-2022 12:07-0400 Systolic blood pressure 105 mm[Hg] No PCP None [facility] DO Work Phone: 01-20-2022 11:58-0400 Body height 147.32 cm No PCP None [facility] DO Work Phone: 01-20-2022 11:58-0400 Body mass index (BMI) [Ratio] 38.87 kg/m2 No PCP None [facility] DO Work Phone: 01-20-2022 11:58-0400 Body surface area Derived from formula 1.77 m2 No PCP None [facility] DO Work Phone: 01-20-2022 11:58-0400 Body weight 84.37 kg No PCP None [facility] DO Work Phone: 01-20-2022 11:58-0400 Diastolic blood pressure 62 mm[Hg] No PCP None [facility] DO Work Phone: 01-20-2022 11:58-0400 Heart rate 60 /min No PCP None [facility] DO Work Phone: 01-20-2022 11:58-0400 Systolic blood pressure 110 mm[Hg] No PCP None [facility] DO Work Phone: 01-20-2022 11:58-0400 6 1 No PCP None [facility] DO Work Phone: Comment on above: PHQ-9 TS 01-14-2022 13:04-0400 Heart rate 74 /min DO W Clarke Yusufdon Work Phone: [facility] 01-14-2022 13:04-0400 Respiratory rate 20 /min DO W Clarke Bebo Work Phone: [facility] 01-14-2022 12:00-0400 Body temperature 98.4 [degF] DO W Clarke Bebo Work Phone: [facility] 01-14-2022 12:00-0400 Diastolic blood pressure 69 mm[Hg] DO W Clarke Bebo Work Phone: [facility] 01-14-2022 12:00-0400 SaO2% (BldA) [Mass fraction] 96 % DO W Clarke Bebo Work Phone: [facility] 01-14-2022 12:00-0400 Systolic blood pressure 98 mm[Hg] DO W Clarke Bebo Work Phone: [facility] 01-14-2022 04:55-0400 Body weight 85 kg DO W Clarke Garibay Work Phone: [facility] 01-12-2022 08:00-0400 Inhaled oxygen flow rate 3 L/min DO W Clarke Garibay Work Phone: [facility] 01-11-2022 16:45-0400 Inhaled oxygen concentration 50 % DO W Clarke Garibay Work Phone: [facility] 01-11-2022 00:00-0400 35 1 No PCP None -[facility] DO Work Phone: Comment on above: [id number] 01-10-2022 13:01-0400 Body height 147.32 cm DO W Clarke Garibay Work Phone: [facility] 01-10-2022 13:01-0400 Body mass index (BMI) [Ratio] 39.2 kg/m2 DO W Clarke Garibay Work Phone: [facility] Encounters Encounter Date Encounter Type Care Provider Facility Start: 04-16-2025 ambulatory [facility] Start: 04-16-2025 Encounter for preprocedural cardiovascular examination [facility] Start: 03-21-2025 ambulatory [facility] Start: 03-14-2025 ambulatory [facility] Start: 02-18-2025 End: 02-18-2025 ambulatory [facility] Start: 01-23-2025 ambulatory [facility] Start: 12-25-2024 ambulatory [facility] Start: 11-14-2024 ambulatory [facility] Start: 11-08-2024 End: 11-08-2024 [facility]: 10-11-2024 ambulatory [facility] Start: 09-10-2024 ambulatory [facility] Start: 08-27-2024 End: 08-27-2024 ambulatory [facility] Start: 08-22-2024 ambulatory [facility] Start: 08-20-2024 ambulatory [facility] Start: 07-29-2024 ambulatory [facility] Start: 07-23-2024 ambulatory [facility] Start: 07-10-2024 ambulatory [facility] Start: 07-08-2024 End: 07-08-[facility] Start: 06-27-2024 ambulatory [facility] Start: 06-17-2024 ambulatory [facility] Start: 05-21-2024 ambulatory [facility] Start: 04-30-2024 ambulatory [facility] Start: 12-21-2022 End: 12-22-[address] [...] [facility]1 Start: 05-06-2022 End: 05-07-2022 ambulatory NIKKI VALDEZ Facility:[facility] Start: 04-14-2022 End: 05-14-2022 ambulatory SHAIKH Sergo LONGIsidraALMA Facility:[facility]1 Start: 03-31-2022 End: 04-01-[address] DEENA BENTON Facility:[facility] Start: 03-28-2022 End: 03-29-[address] DEENA BENTON Facility:[facility]1 Start: 03-14-2022 End: 04-13-2022 ambulatory SHAIKH Sergo LONGEMILY Facility:[facility]1 Start: 02-14-2022 End: 03-11-2022 ambulatory SHAIKH Sergo LONGEMILY Facility:[facility]1 Start: 02-02-2022 End: 05-06-[address] DOCTOR SCHWARZ Facility:[facility]1 Start: 01-27-2022 Chart Update No PCP None [facility] DO Work Phone: Start: 01-20-2022 End: 02-11-2022 ambulatory SHAIKH Sergo HERRERA Facility:[facility]1 Start: 01-20-2022 Transitional care moni clark srvc 7 day discharge No PCP None [facility] DO Work Phone: Start: 01-17-2022 End: 01-18-[address] NOLAN GARIBAY Facility:[facility]1 Start: 01-10-2022 End: 01-14-2022 Evaluation and management of inpatient DO W Clarke Garibay Work Phone: [facility] Start: 01-10-2022 End: 01-10-2022 ambulatory HASMUKH KATZ . Facility:[facility]1 Start: 07-22-2021 End: 07-23-2021 ambulatory RAFI BISWAS Facility:[facility] Procedures Date Procedure Procedure Detail Performing Clinician Start: 01-11-2022 Plain chest X-ray DO W Clarke Garibay Work Phone: Start: 01-10-2022 CL Coronary Thrombol ysis IV DO W Clarke Garibay Work Phone: Start: 01-10-2022 CL Insert IABP DO W Beverly Garibay Work Phone: Start: 01-10-2022 CL LHC & COR Angio DO W Clarke Yusufdon Work Phone: Start: 01-10-2022 CL PCI AMI 1st Vesse l LAD KATIE DO W Clarke Yusufdon Work Phone: Start: 01-10-2022 DO W Clarke Yusufdon Work Phone: section No PCP None Ligation of fallopian tube N o PCP None Operative procedure on knee No PCP None Operative procedure on wrist No PCP None Plan of Treatment Date Care Activity Detail Author Start: 05-18-2022 FUV, Provider: Nolan Garibay, Status: Pen, Time: 10:50 AM FUV, Provider: Nolan Garibay, Status: Pen, Time: 10:50 AM [facility] DO Work Phone: Start: 03-21-2022 FUV, Provider: Beth Hull, Status: Pen, Time: 8:30 AM FUV, Provider: Beth Hull, Status: Pen, Time: 8:30 AM [facility] DO Work Phone: Start: 03-14-2022 ECHO, Provider: LUCAS HANI ULTRASOUND 01,[id number], Status: Pen, Time: 10:45 AM ECHO, Provider: LUCAS HANI ULTRASOUND 01,[id number], Status: Pen, Time: 10:45 AM [facility] DO Work Phone: Start: 01-26-2022 STRESS MARK, Provider : LUCAS HANI NUCLEAR 01,[id number], Status: Pen, Time: 2:00 PM STRESS MARK, Provider: LUCAS HHVI NUCLEAR 01,[id number], Status: Pen, Time: 2:00 PM [facility] DO Work Phone: Patient Education Coronary Angio plasty (DC) Angina (DC) Drug Eluting Stents [facility] Work Phone: Patient referral [facility] Work Phone: Payers Date Payer Category Payer Medicare [id number] 2019 Unknown [id number] 1970 Unknown [id number] 2.16.8 [id number] 1970 Unknown [id number] 2.16.84 0.1.265429.3.579.2.593 1970 Unknown [id number] 2.16.84 0.1.053035.3.579.2.593 1971 Unknown [id number] 2.16.84 0.1.958987.3.579.2.593 1971 Unknown [id number] 2.16.84 0.1.398436.3.579.2.593 1971 Unknown [id number] 2.16.84 0.1.692674.3.579.2.593 1971 Unknown [id number] 2.16.84 0.1.189014.3.579.2.593 1971 Unknown [id number] 2.16.84 0.1.652926.3.579.2.593 1971 Unknown [id number] 2.16.84 0.1.178565.3.579.2.593 1971 Unknown [id number] 2.16.84 0.1.745417.3.579.2.593 1971 Unknown [id number] 2.16.84 0.1.762217.3.579.2.593 1971 Unknown [id number] 2.16.84 0.1.705340.3.579.2.593 1971 Unknown [id number] 2.16.84 0.1.551536.3.579.2.593 1971 Unknown [id number] 2.16.84 0.1.820278.3.579.2.593 1971 Unknown [id number] 2.16.84 0.1.112967.3.579.2.593 1971 Unknown [id number] 2.16.84 0.1.118301.3.579.2.593 1971 Unknown [id number] 2.16.84 0.1.089993.3.579.2.593 1971 Unknown [id number] 2.16.84 0.1.949531.3.579.2.593 1971 Unknown [id number] 2.16.84 0.1.119166.3.579.2.593 1971 Unknown [id number] 2.16.84 0.1.389680.3.579.2.593 1971 Unknown [id number] 2.16.84 0.1.340521.3.579.2.593 1959 Self-pay [id number] Unknown Unknown [id number] 2.16.84 0.1.464639.3.579.2.593 Unknown [id number] 2.16.8 40.1.427566.3.579.2.531 Social History Date Type Detail Facility Daily caffeine consumption Daily caffeine consumption [facility] Work Phone: Comment on above: 3-4; quit 1 week ago; Start: 01-10-2022 [facility] Start: 1970 Sex Assigned At Female F [facility] Medical Equipment Procedure Code Equipment Code Equipment Origin al Text Equipment Identifier Dates Drug-eluting coronary artery stent, [id number] lymer-coated ()[id number] FDA Start: 01-10-2022 Drug-eluting coronary artery stent, [id number] lymer-coated ()[id number] FDA Start: 01-10-2022 Goals Date Patient Goal Desired Activity /State Functional Status Date Assessment Result Facility 01-20-2022 PHQ-9 [id number] Mild (5-9) [facility] DO Work Phone: 01-14-2022 Functional status Patient at Baseline [facility] Work Phone: 01-10-2022 Functional status Disability Sta tus Patient at Baseline [facility] Work Phone: Mental Status Date Assessment Result Facility 01-10-2022 Cognitive function Cognitive Sta tus Patient at Baseline [facility] Work Phone: Clinical Notes 01-10-2022 to 11-08-2024 Note Date & Type Note Facility 11-08-2024 Note [facility] Subjective Javier Link is a [...] 52-year-old woman. On 01/10/2022 she presented to [facility] with STEMI and was found [...] is enrolled in cardiac rehab at the [facility] and doing well with that. Anticoagulation clinic at the [facility] follows her warfarin levels. Testing: [...] visit I incr (more content not included)... [facility] 07-08-2024 Note [facility] Subjective Javier Link is a 54 y.o. year old female patient being seen for 6 mo follow up hx of LV thrombus, CAD, and chronic systolic heart failure. She was admitted to [facility] in Apr 2024 for hypotension due to [...] 52-year-old woman. On 01/10/2022 she presented to [facility] with STEMI and was found [...] is enrolled in cardiac rehab at the [facility] and doing well with that. Anticoagulation clinic at the [facility] follows her warfarin levels. Testing: [...] 28 mm skypoint, 2.5 x 18 mm Monon. An intra-aortic balloon pump was placed. Visit [...] on exertion a (more content not included)... [facility] 10-31-2022 Note CARDIAC STRESS TEST Requesting Physician: [...] CAD evaluation with invasive stress test. [facility] 01-13-2022 Progress note Note Date/Time January 13, 2022 3:15pm [facility] [address] [place] [address] Cardiology Progress Note Signed Patient: Javier Link MR#: [id number] : 1970 Acct:[id number] Age/Sex: 51 / F Adm Date: 2 Loc: Room: [address] [place] [address] Type : ADM IN Attending Dr: Isidra [...] <Electronically signed by Isidra Garibay DO> 01/13/22 1512 [facility] Work Phone: 1(223) 898-747306-01-2022 Progress note Author Isidra Garibay [facility] January 12, 2022 3:16pm Note Date/Time January 12, 2022 3:16p m [facility] [address] [place] [address] Cardiology Progress Note Signed Patient: Javier Link MR#: [id number] : 1970 Acct:[id number] Age/Sex: 51 / F Adm Date: 2 Loc: Room: [address] [place] [address] Type : ADM IN Attending Dr: Isidra [...] <Electronically signed by Isidra Garibay DO> 01/12/22 [facility] Work Phone: 1(815) 445-623905-31-2022 Progress note Author Isidra Garibay [facility] January 11, 2022 1:38pm Note Date/Time January 11, 2022 1:38p m [facility] [address] [place] [address] Cardiology Progress Note Signed Patient: Javier Link MR#: [id number] : 1970 Acct:[id number] Age/Sex: 51 / F Adm Date: 2 Loc: Room: [address] [place] [address] Type : ADM IN Attending Dr: Isidra [...] ALT Alkaline Phosphatase Troponin I High Sens 90495 H* Total Protein Albumin Globulin Albumin/Globulin Ratio [...] ALT Alkaline Phosphatase Troponin I High Sens 158150 H* Total Protein Albumin Globulin Albumin/Globulin Ratio Triglycerides Cholesterol LDL Cholesterol, Calc VLDL Cholesterol HDL Cholesterol Cholesterol/HDL Ratio 01/10/22 01/10/22 01/10/22 20:42 21:57 23:37 APTT PHA Creatinine Clear Sodium Potassium Chloride Carbon Dioxide BUN Creatinine Est GFR ( Amer) Est GFR (Non-Af Amer) Glucose POC Glucose 148 Calcium Magnesium Total Bilirubin AST ALT Alkaline Phosphatase Troponin I High Sens 122699 H* 879728 H* Total Protein Albumin Globulin Albumin/Globulin Ratio [...] Alkaline Phosphatase 85 Troponin I High Sens 79905 H* Total Protein 6.0 L Albumin 2.9 [...] signed by Isidra Garibay DO> 01/11/22 1338 [facility] Work Phone: 1(238) 794-417205-30-2022 History and physical note Author Isidra Garibay [facility] January 10, 2022 12:14pm Note Date/Time January 10, 2022 10:30 am [facility] [address] [place] [address] Cardiology H&P Signed Patient: Javier Link MR#: [id number] : 1970 Acct:[id number] Age/Sex: 51 / F Adm Date: 2 Loc: Room: Type: [facility] Attending Dr: Isidra Garibay DO Copies to: NON STAFF Isidra Garibay DO~ Date of Service: 01/10/2022 Cardiology HPI History of Present Illness Chief complaint: Inferolateral STEMI HPI: Ms. Link is a 51 year old female transferred from [facility] room this morning after receiving phone call from Dr. Katz and reviewing electronic transmitted media and discussion about the clinical case. Patient presented with severe chest discomfort with no prior history of cardiac illness or intervention. ECGs reveal sinus rhythm with inferolateral ST elevation injury current. She was admitted restarted upstream antiplatelet and Antithrombin therapy, and transferred to the [facility] emergently. Patient arrived at [facility] at 0924, first ECG transmitted to wi was 0948, [facility] team was activated at 0952, patient was transferred by ground, arrived in [facility] at 1033 and underwent primary PCI [...] ER staff, review of electronic transmitted media, [facility] staff, nursing staff and family both [...] changes or abnormalities: ST suggestive of injury NE, pacemaker, normal Myocardial infarction: inferior NE (acute or recent) and lateral NE (acute or recent) A&P - Cardiology (1) ST elevation myocardial infarction (STEMI) of inferolateral wall: Code(s): I21.19 - ST elevation (STEMI) myocardial infarction involving other coronary artery of inferior wall (2) Hyperlipidemia: Code(s): E78.5 - Hyperlipidemia, unspecified (3) Essential hypertension: Code(s): I10 - Essential (primary) hypertension Documented By: Isidra Garibay DO 01/10/22 1026 Signed By: <Electronically signed by Isidra Garibay DO> 01/10/22 1214 [facility] Work Phone: [phone]) 491-460905-30-2022 Procedure [facility] Narrative - Reported* 51-year-old female returns for transitional care management office visit following recent large anterior NE with associated cardiogenic shock and primary revascularization of the LAD, details of which are reviewed. She had intra-aortic balloon pump counterpulsation for 24 hours, subsequent diagnosis of LV thrombus with reduced LV function. She was transition to clopidogrel warfarin, aspirin triple therapy. She did have brief episodes of blessing-NE/postoperative VT that stabilized on amiodarone andthen we [...] 12 weeks and myselfin approximately 4 months [facility] DO Work Phone: Chief complaint Narrative - Reported* 51-year-old female returns for transitional care management office visit following recent large anterior NE with associated cardiogenic shock and primary revascularization of the LAD, details of which are reviewed. She had intra- aortic balloon pump counterpulsation for 24 hours, subsequent diagnosis of LV thrombus with reduced LV function. She was transition to clopidogrel warfarin, aspirin triple therapy. She did have brief episodes of blessing-NE/postoperative VT that stabilized on amiodarone andthen we [...] 12 weeks and myselfin approximately 4 months [facility] Work Phone: [place]ido complaint Narrative - Reported* 51-year-old female returns for transitional care management office visit following recent large anterior NE with associated cardiogenic shock and primary revascularization of the LAD, details of which are reviewed. She had intra- aortic balloon pump counterpulsation for 24 hours, subsequent diagnosis of LV thrombus with reduced LV function. She was transition to clopidogrel warfarin, aspirin triple therapy. She did have brief episodes of blessing-NE/postoperative VT that stabilized on amiodarone andthen we [...] 12 weeks and myselfin approximately 4 months [facility] Work Phone: Evaluation note* Diagnosis Onset Date Resolution Status Essential hypertension acute Hyperlipidemia acute Left ventricular thrombus ac nikolai ST elevation myocardial infa rction (STEMI) of inferolateral wall acute [facility] Work Phone: Hospital Discharge instructions Additional Instructions [facility] to manage your Coumadin dosing [...] doctor or pharmacist, without first calling the enlisted aircrew/aerial observer/gunner who implanted the stent. If you require [...] weight lifting, stair steppers, etc. until the enlisted aircrew/aerial observer/gunner approves these activities. Check with the enlisted aircrew/aerial observer/gunner on your first follow-up visit. CALL YOUR PHYSICIAN at [phone]: -If bleeding should occur from the catheter insertion site- apply pressure to the site then immediately call us. -Report any fever, redness, drainage, increased swelling, or firmness at the catheter insertion site. Some bruising or slight swelling may be present at the time of discharge. -Should arm or leg become cold, numb, white, or blue, contact the enlisted aircrew/aerial observer/gunner immediately. -IF you should experience episodes of [...] is recommended. Please call Central Scheduling at [phone] to schedule your appointment.] The attending enlisted aircrew/aerial observer/gunner or [facility] nurse clinician should provide you with specific instructions regarding activity, diet, medications, and further follow up for you. Follow the medication instructions provided on your discharge. If the dosages and instructions on this sheet differ from the dosage and instructions on the bottle, follow the instructions on the bottle. [facility] is not responsible for incorrect prescription information provided by the patient during their visit. Do not stop your medications without consulting your health care provider. Please take the list with you to your next doctor's appointment.[facility] Work Phone: Summary Purpose Family History [...] section and content) DATE CREATED AUTHOR 09/11/[address] [facility] DATE CREATED AUTHOR AUTHOR'S ORGANIZ ATION 03/09/2022 [facility] DATE CREATED AUTHOR AUTHOR'S ORGANIZ ATION 12/25/2022 [facility] DATE CREATED AUTHOR AUTHOR'S ORGANIZ ATION 05/11/2024 [facility] DATE CREATED AUTHOR AUTHOR'S ORGANIZ ATION 04/21/2025 [facility] Care Teams (unrecognized sec tion and content) [...] BE BASED ON THE PRIMARY CLINICAL RECORDS. [employer] provides no warranty or guarantee of the accuracy or completeness of information in this document.
[2025-04-25 10:46] LABS: Hematocrit 38.5 % (36.0-48.0); Hemoglobin 13.2 g/dL (12.0-16.0); Immature Granulocytes Abs Auto 0.02 10^3/uL (0.00-0.03); Immature Granulocytes Pct Auto 0.2 % (0.0-0.5); Lymphocytes Absolute Auto 1.9 10^3/uL (1.2-3.8); Mean Corpuscular HGB Conc 34.3 g/dL (29.9-35.2); Mean Corpuscular Hemoglobin 32.8 pg (26.7-34.0); Mean Corpuscular Volume 95.5 fL (81.0-99.0); Platelet Count 197 10^3/uL (150-450); Red Blood Count 4.03 10^6/uL (4.20-5.40); White Blood Count 8.8 10^3/uL (4.0-11.0)
[2025-04-25 11:13] LABS: Alanine Aminotransferase 30 U/L (14-59); Albumin Globulin Ratio 0.9; Albumin Level 3.3 g/dL (3.4-5.0); Alkaline Phosphatase 117 U/L (46-116); Anion Gap 14.2; Aspartate Amino Transferase 23 U/L (15-37); Blood Urea Nitrogen 9.0 mg/dL (7.0-18.0); Calcium 8.9 mg/dL (8.5-10.1); Carbon Dioxide 25.6 mmol/L (21.0-32.0); Chloride 101 mmol/L (98-107); Cholesterol 99 mg/dL (<=200); Estimated GFR (African America >60 (>=60 mL/min/1.73m^2); Estimated GFR (Non-African Ame >60 (>=60 mL/min/1.73m^2); Free T3 1.53 pg/mL (2.18-3.98); Globulin 3.8 g/dL; Glucose 94 mg/dL (74-106); HDL Cholesterol 46 mg/dL (40-60); Potassium 4.8 mmol/L (3.5-5.1); Sodium 136 mmol/L (136-145); Thyroid Stimulating Hormone 0.074 uIU/mL (0.358-3.740); Total Protein 7.1 g/dL (6.4-8.2); Triglycerides 62 mg/dL (<=150); VLDL CHOLESTEROL 12.4 mg/dL
[2025-04-25 12:13] LABS: Iron 76.0 ug/dL (50.0-170.0)
== END 2025-04-25 10:09 | disposition home or self-care (01) ==
LOC: LAB 10:10
PROVIDERS: PCP Nurse Practitioner Family; Visit Provider Nurse Practitioner Family
DX: Z00.00 Encounter for general adult medical examination without abnormal findings (principal); E78.49 Other hyperlipidemia; E11.9 Type 2 diabetes mellitus without complications; D64.9 Anemia, unspecified; E03.9 Hypothyroidism, unspecified; E55.9 Vitamin D deficiency, unspecified; I10 Essential (primary) hypertension
CPT/HCPCS: 36415; 80053; 80061; 82306; 83036; 83525; 83540; 84436; 84443; 84481; 85025

== ENCOUNTER 2025-08-05 11:02 | Outpatient (OUT) | payer MEDICARE, SELFPAY ==
--- OUTSIDE RECORDS SUMMARY | 2025-07-22 05:00 | XMS_ITS ---
Author Organization [facility] [place] Address [address] [place] [address] Care Team Providers Care Critical Care Physician Name Role Phone Samia Rosales Primary Care Provider Allergies Allergen (clinical drug ingredient) Drug/Non Drug Allergy documented on EMR Reaction Allergy Type Onset Date Status paper tape (uncoded)rashAllergyActivemoxifloxacinAveloxswelling/itchingDrug AllergyActive REASON FOR VISIT 6 month follow up Medications Medication SIG (Take, Route, Frequency, Duration) Notes Start Date End Date Status Ozempic (2 MG/DOSE) 8 MG/3ML as directed Subcutaneous once weekly; Duration: 28 days 4ActivePantoprazole Sodium 40 MG1 tablet Orally Once a dayActive Potassium Chloride Tori ER 10 MEQ1 tablet with food Oral once daily; Duration: 90 daysActiveSpironolactone 25 MG1 tablet OrallyActiveMupirocin 2 %1 application Externally Twice a day; Duration: 5 days5ActiveEntresto 49-51 MG1 tablet Orally Twice a dayActiveFurosemide 40 MGTAKE 1 TABLET BY MOUTH EVERY DAY FOR 90 DAYS daily; Duration: 90 daysActiveHydrocortisone Acetate 1 %1 application Externally BID; Duration: 14 5ActiveIvabradine HCl 5 MG 1 tablet with meals Orally Twice a dayActiveLevothyroxine Sodium 100 MCG1 tablet in the morning on an empty stomach Oral Once a day; Duration: 90 daysActive Carvedilol 12.5 MG1 tablet Oral BID; Duration: 90 daysActiveClopidogrel Bisulfate 75 MG1 tablet Oral Once a day; Duration: 90 daysActiveDULoxetine HCl 40 MGTAKE 1 CAPSULE BY MOUTH TWICE A DAY; Duration: 90 daysActiveAtorvastatin Calcium 80 MG1 tablet Oral Once a day; Duration: 90 daysActivebuPROPion HCl ER (XL) 300 MGTAKE 1 TABLET BY MOUTH DAILY; Duration: 90ActivebusPIRone HCl 10 MG TAKE 2 capsules BY MOUTH TWICE A DAY; Duration: 30 daysActivepredniSONE 20 MGas directed Orally Once a day; Duration: 11 daystake 3 tablets po for 3 days than 2 tablets po for 3 days than1 tablet po for 3 days than 1/2 tablet po for 2 days 5ActiveAlbuterol Sulfate HFA 108 (90 Base) MCG/ACT2 puff as needed Inhalation every 4 hrs; Duration: ctiveArnuity Ellipta 100 MCG/ACT1 puff Inhalation Once a day; Duration: 30 days4ActiveAspirin 81 81 MG1 tablet Orally Once a dayActiveTriamcinolone Acetonide 0.05 %1 application Externally Twice a day5ActiveVitamin D (Cholecalciferol) 50 MCG (2000 UT)1 capsule Orally Once a dayActiveZyrTEC Allergy 10 MG1 tablet Orally Once a dayActive Social History Tobacco Use: Social History Observation Description Date Details (start date - stop date) Former Smoker 08/14/1985 - 08/14/2022 Tobacco Use/Smoking Question Answer Notes Patient is a former smoker When did you start smoking?08/14/1985When did you stop smoking?08/14/2022How long has it been since you last smoked?6-12 monthsAUDIT-C (Standard) Question Answer Notes Did you have a drink containing alcohol in the p ast year? No Caukoa1QbehknpmtoycltMqkzanen Problems Problem Type SNOMED Code ICD Code Onset Dates Problem Status W/U Status Risk Notes Problem Osteoarthritis (900865801) Osteoarthritis (M19.90) Activeconfirmed Vital Signs Blood pressure systolic 128 mm Hg 07/22/20 25 Blood pressure diastolic 72 mm Hg 025 Height 58 in 07/22/2025 Weight 135 lbs 07/22/2025 BMI 28.21 kg/m2 07/22/2025 Encounters Encounter Location Date Provider Diagnosis [facility] [address] [place] [id number] 07/22/2025 Samia Rosales Anxiety and depressi on F41.8 ; Osteoarthritis M19.90 and Wheezes R06.2 Assessments Encounter Date Diagnosis (ICD Code) Assessment Notes Treatment Notes Treatment Clinical Notes Section Notes 07/22/2025 Anxiety and depression (ICD-10 - F41.8) increase dose tehvkxpom24/09/2025Osteoarthritis (ICD-10 - M19.90) consider rheum panel takes tylenol prn 07/22/2025Wheezes (ICD-10 - R06.2) see if prednisone helps fu if not improving Plan Of Treatment Medication Medication Name Sig Start Date Stop Date Notes busPIRone HCl 10 MG TAKE 2 capsules BY MOUTH TWI CE A DAY; Duration: 30 days predniSONE 20 MGas directed Orally Once a day; Duration: 11 days07/22/2025take 3 tablets po for 3 days than 2 tablets po for 3 days than1 tablet po for 3 days than 1/2 tablet po for 2 daysTreatment Notes Assessment Notes Anxiety and depression increase dose bus pirone Osteoarthritis consider rheum panel takes tylenol prn Wheezes see if prednisone helps fu if not improving Next Appt Details Follow Up: 6 Months,prn, Alexa son: Provider Name:Samia martins, 01/20/2026 10:00:00 AM, [address] [place], [address], Progress Notes * AGUSTOAna PAULSON KDOB: [birth year] (55 yo F)Acc No.[id number]:07/22/2025 Progress Note Patient: Ana GAR :?Samia Rosales ([facility]), CNPDOB:1970 ???Age:55 Y???Sex:FemaleDate:07/22/2025Phone:[phone]:[address] [place], [place] [id number] In:09:55 AM ESTCheck Out:10:26 AM EST Subjective: * Chief Complaints: * 1 . 6 month follow up. * HPI: ???General:? Wheezes from throat ever since being sick in April? Arthritis in bilateral wrists and big toe but cant take ibuprofen? wears braces at night the pain is becoming more bothersome? wants a new medication for this Stress with mentally ill son? birthday of late son and swathi? wants to up buspar still experiences fear of having a heart attack in her sleep wheezing? increase buspar 20 BID. * ROS: ???General/Constitutional:?Anxiety?admits.?Fever?denies.?Headache?denies.?Weight loss?denies.?Ophthalmologic:?Discharge?denies.?Eye Pain?denies.?Itching and redness?denies.?ENT:?Patient admits?wheezing, thinks coming from throat.?Nasal congestion?denies.?Nasal discharge?denies.?Sore throat?denies.?Cardiovascular:?Chest tightness/ heavy pressure?denies.?Rapid heart rate?denies.?Swelling of extremities?denies.?Chest pain?denies.?Respiratory:?Productive cough?denies.?Chest pain?denies.?Cough?denies.?Shortness of breath?denies.?Wheezing?denies.?Gastrointestinal:?Abdominal pain?denies.?Constipation?denies.?Decreased appetite?denies.?Diarrhea?denies.?Nausea?denies.?Vomiting denies.?Genitourinary:?Urinary incontinence?denies.?Painful urination?denies.?Musculoskeletal:?Arthralgias/joint pain?hands and right great toe.?Back pain?denies.?Neck pain?denies.?Muscle aches?denies.?Skin:?Rash?denies.?Skin lesion(s)?denies.? * Active Problem List I50.22 Chronic systolic (co ngestive) heart failure Modified On:12/01/2022 Status:pdqqfnwzkS31Tgtvkzdwc (primary) hypertension Modified On:01/16/2023 Status:cryazmpfzI56.49Other hyperlipidemia Modified On:01/16/2023 Status:kabiymwowX04.10Atherosclerotic heart disease of nome coronary artery without angina pectoris Modified On:01/16/2023 Status:cunljaypvS59.1Generalized anxiety disorder Modified On:08/10/2023 Status:saciyxmozX34.9Acute bronchiolitis Modified On:05/08/2023 Status:yzjbktazoP72.9Vitamin D deficiency, unspecified Modified On:05/12/2023 Status:rxmhlxeivG09.11Unilateral primary osteoarthritis of first carpometacarpal joint, right hand Modified On:05/25/2023 Status:eivchinziR52.4Radial styloid tenosynovitis [de Quervain] Modified On:05/25/2023 Status:qbcxpipjsE38.132Other articular cartilage disorders, left wrist Modified On:05/25/2023 Status:wowuyvrmaO05.909Asthma Modified On:08/10/2023 Status:sougzynpaF31.1Hot flashes Modified On:07/23/2024 Status:cluhsiotkB99.31Chronic kidney disease, stage 3a Modified On:07/23/2024 Status:otsleedsuR49.8Anxiety and depression Modified On:07/23/2024 Status:nztvfbtsaI69.9Interstitial pulmonary disease, unspecified Modified On:01/21/2025 Status:vwzsjnsrrD56.0Hypertensive heart disease with heart failure Modified On:01/21/2025 Status:homodyzwxY08.9Psoriasis Modified On:01/21/2025 Status:itcycksfdC04.9Hypothyroidism Modified On:05/01/2025 Status:etbkkotzfH63.90Osteoarthritis Modified On:07/22/2025 Status:confirmed * Medical History: C hronic Systolic Heart Failure, Asthma, Former smoker. * Surgical History: C -Section x2 , Tubal Ligation & Ablasion , Left Wrist surgery , Partial Left knee replacement & Full Right , Defibulator placement , Angio with stent placement . * Hospitalization/Major Diagno stic Procedure: I nfection 05/2022, UTI, Hyponatremia 05/07. * Family History: F ather: alive, diagnosed with Diabetes, Hypertension, Heart Disease. M other: alive, COPD, diagnosed with Heart Disease. S ister(s): diagnosed with Cancer. 3 brother(s) , 2 sister(s) . 3 son(s) . . * Social History: ???Tobacco Use:?Tobacco Use/Smoking?Patient is a?former smoker ?When did you start smoking??08/14/1985 ?When did you stop smoking??08/14/2022 ?How long has it been since you last smoked? 6-12 months ???Drug/Alcohol:?AUDIT-C (Standard)?Did you have a drink containing alcohol in the past year??No ?Points?0 ?Interpretation?Negative * Medications: T aking Albuterol Sulfate HFA [...] Orally Twice a day , Taking Furosemide 40 MG Tablet TAKE 1 TABLET BY MOUTH EVERY DAY FOR 90 DAYS daily , Taking Hydrocortisone Acetate 1 % Ointment 1 application Externally BID , Taking Ivabradine HCl 5 MG Tablet 1 tablet with meals Orally Twice a day , Taking Levothyroxine Sodium 100 MCG Capsule 1 tablet in the morning on an empty stomach Oral Once a day , Taking Mupirocin 2 % Ointment 1 application Externally Twice a day , Taking Ozempic (2 MG/DOSE)(Semaglutide (2 MG/DOSE)) 8 MG/3ML Solution Pen-injector as directed Subcutaneous once weekly , Taking Pantoprazole Sodium 40 MG Tablet Delayed Release 1 tablet Orally Once a day , Taking Potassium Chloride Tori ER 10 MEQ Tablet Extended Release 1 tablet with food Oral once daily , Taking Spironolactone 25 MG Tablet 1 tablet Orally , Taking Triamcinolone Acetonide 0.05 % Ointment 1 application Externally Twice a day , Taking Vitamin D (Cholecalciferol) 50 MCG (1999 UT) Capsule 1 capsule Orally Once a day , Taking ZyrTEC Allergy(Cetirizine HCl) 10 MG Tablet 1 tablet Orally Once a day , Medication List reviewed and reconciled with the patient * Allergies: A velox: swelling/itching, paper tape: rash. Objective: * Vitals: W t:135lbs, Ht: 58 in, BP:128/72mm Hg, BMI:28.21Index, Ht-cm: 147.32 cm, Wt-k.24 kg. * Examination: ???General Examinations: ?GENERAL APPEARANCE:?alert and oriented,?in no acute distress.?EYES:?conjunctiva normal, sclera non-icteric.?NOSE:?normal external appearance.?LUNGS:?clear to auscultation bilaterally.?CARDIO:?regular rate and rhythm, S1, S2 normal, no edema. ?MUSCULOSKELETAL:?Gait and station normal, some swelling noted to hands.?SKIN:?warm and dry.? Assessment: * Assessment: 1.?Anxiety and depression - F41.8 (Primary)???2.?Osteoarthritis - M19.90&#1 60;??3.?Wheezes - R06.2??? Plan: * Treatment: Refill busPIRone HCl Capsule, 10 MG, TAKE 2 capsules BY MOUTH TWICE A DAY, 30 days, 120, Refills 11.?? Notes: increase dose buspirone??2.?Osteoarthritis? Start predniSONE Tablet, 20 MG, as directed, Orally, Once a day, 11 days, 19, Refills 0, Notes to Pharmacist: take 3 tablets po for 3 days than 2 tablets po for 3 days than1 tablet po for 3 days than1/2 tablet po for 2 days.?? Notes: consider rheum panel takes tylenol prn??3.?Wheezes? Notes: see if prednisone helps fu if not improving?? * Preventive Medicine: ??Screenings/Counseling:?BMI ACTION PLAN?Above Normal BMI Follow-up?Dietary management education, guidance, and counseling * Follow Up: 6 Months,prn * * Electronically signed by Samia Rosales NP, ROTARY ENVELOPE MACHINE OPERATOR.BAKERY SALES [id number] on 07/24/2025 at 01:34 PM ESTSign off status: CompletedVisit Status:?CHK (Check Out) true * Provider: Rick Rosales ([facility]), BAKERY SALES CLERK Date: 09/22/2024 Generated for Printing/Faxing/eTransmitting on:?08/05/2025 11:07 AM EST History and Physical Notes * HPI (History of Present Illness) CategorySub-CategoryDetailNotesCategory NotesGeneral Wheezes from throat ever since being sick in April Arthritis in bilateral wrists and big toe but cant take ibuprofen wears braces at night the pain is becoming more bothersome wants a new medication for this Stress with mentally ill son birthday of late son and swathi wants to up buspar still experiences fear of having a heart attack in her sleep wheezing? increase buspar 20 BID Examination CategorySub-CategoryDetailNotesCategory NotesGeneral ExaminationsGENERAL APPEARANCE:alert and oriented, in no acute distressEYES:conjunctiva normal, sclera non-ictericEARS:NOSE:normal external appearanceTHROAT:CARDIO:regular rate and rhythm, S1, S2 normal, no edemaLUNGS:clear to auscultation bilaterally ABDOMEN:SKIN:warm and dryBACK:MUSCULOSKELETAL:Gait and station normal, some swelling noted to handsLYMPH NODES:
--- OUTSIDE RECORDS SUMMARY | 2025-08-04 06:51 | XMS_ITS ---
Author Organization [facility] [place] Address [address] [place] [address] Care Team Providers Care Assistant Professor Of Biochemistry Name Role Phone Connie Samia Primary Care Provider REASON FOR VISIT rheumatoid labs- Problems Problem Type SNOMED Code ICD Code Onset Dates Problem Status W/U Status Risk Notes Problem Arthritis (0665459) Arthritis (M19.90) Activeconfirmed Encounters Encounter Location Date Provider Diagnosis [facility] [address] [place] [address] 08/04/2025 Samia Rosales Arthritis M19.90 Assessments Encounter Date Diagnosis (ICD Code) Assessment Notes Treatment Notes Treatment Clinical Notes Section Notes 08/04/2025 Arthritis (ICD-10 - M19.90) Plan Of Treatment Pending Test Test Name Order Date FLORENCE DIRECT 08/04/2025 ANTISTREPTOLYSIN O AB (ASO) 08/04/2025 CRP 08/04/2025 RHEUMATOID FACTOR 08/04/2025 URIC ACID SERUM 08/04/2025 Next Appt Details Provider Name:Samia martins, 01/20/2026 10:00:00 AM, [address] [place], [address], Progress Notes * Ana LINK KDOB: [birth year] (55 yo F)Acc No.[id number]:08/04/2025 Patient:?Ana LINK :1970???Age:55 Y???Sex:FemalePhone:[phone] Address:[address] [place] [address] Subjective: * Chief Complaints: * R heumatoid labs- * Medical History: * Surgical History: * Hospitalization/Major Diagno stic Procedure: * Medications: Objective: * Vitals: * Physical Examination: ??? Assessment: * Assessment: 1.?Arthritis - M19.90 (Primary)??? Plan: * Treatment: ?LAB: FLORENCE DIRECT ?LAB: ANTISTREPTOLYSIN O AB (ASO) ?LAB: CRP ?LAB: RHEUMATOID FACTOR ?LAB: URIC ACID SERUM * Procedure Codes: * true * Date:?Generated for Printing/Faxing/eTransmitting on:?08/05/2025 11:07 AM EST
--- OUTSIDE RECORDS SUMMARY | 2025-08-05 11:07 | XMS_ITS | Clinical Summary ---
Author Organization [facility] Address [address] [place] [address] Care Team Providers Care Care Giver Name Role Phone Unavailable Primary Care Provider Unavailabl e Social History Tobacco UseTypesPacks/DayYears UsedDateSmoking Tobacco: Never Assessed CommentsUnknownSex and Gender InformationValueDate RecordedSex Assigned at Not on fileLegal XeqJcvmmf87/15/2023 7:25 PM EDTGender IdentityNot on fileSexual OrientationNot on file Last Filed Vital Signs Vital SignReadingTime TakenCommentsBlood Pressure--Pulse--Temperature-- Respiratory Rate--Oxygen Saturation--Inhaled Oxygen Concentration--Kbviej37.2 kg (168 lb)02/25/2020 12:00 PM JOZHupetf244.3 cm (4' 10 )02/25/2020 12:00 PM EDT Body Mass Index35.11002/25/2020 12:00 PM EDT Plan of Treatment Not on file Insurance * Guarantor: Ana Rosa TypeRelation to PatientDate of BirthPhone Billing AddressPersonal/LvhtjbIsgd1970 [address] [address]
--- OUTSIDE RECORDS SUMMARY | 2025-08-05 11:07 | XMS_ITS | Clinical Summary ---
Author Organization [email or web address] Sys tem Address [id number] [address] [place] [address] Care Team Providers Care Vice President Payer Name Role Phone Moriah Mack ADDICTION SOCIAL WORKER-NEUROLOGIST Primary Care Provi didi Allergies Active AllergyReactionsCriticalityNoted RxkoYlbhexpzMkpjgvitloqvEfuim54/18/2020 Chlorhexidine Oddruthpu83/14/2020 Itching and burning Medications MedicationSigDispense QuantityRefillsLast FilledStart DateEnd DateStatus meloxicam (MOBIC) 15 mg tablet 01/21/2021ctive albuterol (PROVENTIL HFA;VENTOLIN HFA) 90 mcg/actuation inhaler Indications:Asthma with status asthmaticus, unspecified asthma severity, unspecified whether persistentInhale 2 puffs every 6 (six) hours as needed for wheezing. 18 g ctive fluticasone propion-salmeteroL (ADVAIR) 500-50 mcg/dose DISKUS Indications:Asthma with status asthmaticus, unspecified asthma severity, unspecified whether persistentInhale 1 puff 2 (two) times a day. 60 each ctive levothyroxine (SYNTHROID, LEVOTHROID) 137 MCG tablet Indications:Chronic thyroiditisTake 1 tablet (137 mcg total) by mouth in the morning. 90 tablet 12/07/2021ctive atorvastatin (LIPITOR) 10 mg tablet Indications:High cholesterolTake 1 tablet (10 mg total) by mouth in the morning. 30 tablet ctive hydroCHLOROthiazide (HYDRODIURIL) 25 mg tablet Indications:Accelerated essential hypertensionTake 1 tablet (25 mg total) by mouth daily. 30 tablet ctive lisinopriL (PRINIVIL,ZESTRIL) 10 mg tablet Indications:Accelerated essential hypertensionTake 1 tablet (10 mg total) by mouth in the morning. 30 tablet ctive DULoxetine (CYMBALTA) 30 mg capsule Indications:Anxiety and depression2 caps daily 60 capsule ctive Active Problems ProblemNoted DateDiagnosed UkctSddbmzxemzew68/21/2021vascular necrosis of bone of wrist02/01/2021soriatic deplqddqo02/20/2021 Resolved Problems ProblemNoted DateDiagnosed DateResolved DateAnxiety and yuboclywmi38/20/2021 12/16/2020Hx of abnormal cervical Pap smear/rimary osteoarthritis of right kneecquired hypothyroidism re-operative qfrlqlfkb00Fungal ear xfuwzrstt94cute diffuse otitis externa of right ear02/18/2020 12/01/2020Itching of earOtitis of left ear02/03/2020 12/01/2020hronic pain of right knee Family History Medical HistoryRelationNameCommentsHyperlipidemiaBrotherDiabetesFatherHeart diseaseFatherHyperlipidemiaFatherHypertensionFatherKidney diseaseFatherVision lossFatherArthritisMotherCOPDMotherDepressionMotherHearing lossMotherHeart diseaseMotherVision lossMotherCancerSisterEarly deathSisterLiver cancerSister Liver diseaseSisterEarly deathSonBreast cancerNeg HxRelationNameStatusComments BrotherFatherMotherSisterSon Social History Tobacco UseTypesPacks/DayYears UsedDateSmoking Tobacco: Every DayCigarettes0.820 Smokeless Tobacco: Never Tobacco Cessation:Ready to Q uit: No Alcohol UseStandard Drinks/WeekCommentsYes0 (1 standard drink = 0.6 oz pure alcohol)occasionalSocial Connection and Isolation PanelAnswerDate RecordedIn a typical week, how many times do you talk on the phone with family, friends, or neighbors?More than three times a week11/29/2020How often do you get together with friends or relatives?Once a week11/29/2020How often do you attend uatsdin or buddhism services?Never1Do you belong to any clubs or organizations such as uatsdin groups, unions, fraternal or athletic groups, or school groups?No 11/29/2020How often do you attend meetings of the clubs or organizations you belong to?Never11/29/2020re you , , , , never , or living with a partner?Aesjdcm5111/29/2020UDIT-CAnswerDate RecordedQ1: How often do you have a drink containing alcohol?2-4 times a month11/29/2020Q2: How many drinks containing alcohol do you have on a typical day when you are drinking?1 or Q3: How often do you have six or more drinks on one occasion?Never11/29/2020Overall Financial Resource Strain (CARDIA)AnswerDate RecordedHow hard is it for you to pay for the very basics like food, housing, medical care, and heating?Hard11/29/2020HQ-2AnswerDate RecordedTotal Score14 02/01/2021[facility] [place] [facility] - Occupational Stress QuestionnaireAnswerDate RecordedDo you feel stress - tense, restless, nervous, or anxious, or unable to sleep at night because yourmind is troubled all the time - these days?Very much11/29/2020xercise Vital SignAnswerDate RecordedOn average, how many days per week do you engage in moderate to strenuous exercise (like a brisk walk)?2 days11/29/2020On average, how many minutes do you engage in exercise at this level?10 min11/29/2020RAPARE - TransportationAnswerDate RecordedIn the past 12 months, has lack of transportation kept you from medical appointments or from getting medications?No11/29/2020In the past 12 months, has lack of transportation kept you from meetings, work, or from getting things needed for daily living?No1ChildcareAnswerDate RecordedDo problems getting child custody evaluator make it difficult for you to work or study?No11/29/2020 EmploymentAnswerDate RecordedDo you need help finding a local career center and/or a training program?No1Purpose - LifeAnswerDate RecordedI have a purpose and direction in my life.Somewhat Pioylzto30/18/2021ducationAnswerDate RecordedWhat is the highest level of school you have completed or the highest degree you have received?12th grade11/29/2020CommentsNoSex and Gender InformationValueDate RecordedSex Assigned at IdkxuKlzjzd68/05/2021 2:50 PM EDT Legal KkvDmetkt66/06/2015 11:22 AM EDTGender UfmydgfgServbj68/05/2021 2:50 PM EDTSexual OrientationNot on file Last Filed Vital Signs Vital SignReadingTime TakenCommentsBlood Itkojiiu236/7806 3:34 PM EDT Svjes087402/01/2021 3:34 PM DQOCarvcyukkwb24 ??C (96.8 ??F)02/01/2021 3:34 PM EDT Respiratory Cqim6322 2:28 PM EDTOxygen Adkwzfmwze22%02/01/2021 3:34 PM EDTInhaled Oxygen Concentration--Ujrquv52.6 kg (180 lb)02/23/2021 1:47 PM EDT Gobbjy122.3 cm (4' 10 )02/01/2021 3:34 PM EDTBody Mass Index37.62002/01/2021 3:34 PM EDT Plan of Treatment Health MaintenanceDue DateLast DoneCommentsDepression Ncnijsyot65/13/1983Tobacco Xxxozksie45/13/1983Adult BMI Tjjaryhwc60/13/1989DTaP,Tdap and Td Vaccines (1 - Tdap)1990Colon Cancer Screening 3 Year Rhvkehlso04/13/2016Zoster (Shingles) Vaccine (1 of 2)1Pap Smear/12/2020, 12/16/2020 Influenza Iszujgs39/08/2024 Goals GoalPatient Goal TypeAssociated ProblemsRecent ProgressPatient-Stated?Author Home Marion Sanders LSW Note: Evaluation of progress towards goal: Safe dc transition home with family support and [facility] for in home therapy. Medical Devices ImplantedTypeAreaManufacturerDevice IdentifierShelf Expiration DateModel / Serial / LotCmnt Bn Bio 40gm Rpl [id number] - Sna - [id number] Implanted:Qty: 2 on 03/25/2020 by [facility]: KneeZimmer [id number] / NA / [id number] Ptlr 32mm Medialized Dome - Sna - [id number] Implanted:Qty: 1 on 03/25/2020 by Christiano Vasquez DO at [facility] ImplantRight: KneeJ [id number]/31/[id number] / NA / [id number] Fem 5 Kn Rt Crcte Rtn - Sna - [id number] Implanted:Qty: 1 on 03/25/2020 by Christiano Vasquez DO at [facility] ImplantRight: KneeJ [id number]/31/[id number] / NA / [id number] Tib 5 5mm Cr Fx Brng - Sna - [id number] Implanted:Qty: 1 on 03/25/2020 by Christiano Vasquez DO at [facility] ImplantRight: KneeJ [id number]/31/[id number] / NA / [id number] Tib 5 Kn Cmnt Fx Brng - Sna - [id number] Implanted:Qty: 1 on 03/25/2020 [facility] Knee [id number]/31/[id number] / NA / [id number]sefqqVxuqst IdentifierShelf Expiration DateModel / Serial / LotImpl Kn Fx Brng W Spcl Ins Construct Rpl [id number] - Sna - [id number] Explanted:Qty: 1 on 03/25/2020 by Christiano Vasquez DO at [facility] ImplantRight: KneeJJ [id number] / NA / NA Procedures Procedure NamePriorityDate/TimeAssociated DiagnosisCommentsHIGH RISK HPV W/DENG Plrpqcp0612/16/2020 11:57 AM EDT Hx of abnormal cervical Pap smear Well woman exam from Last 3 Months or Most Recently Relevant to Health Maintenance Results * High risk HPV w/deng (12/16/2020 11:57 AM EDT)ComponentValueRef RangeTest MethodAnalysis TimePerformed AtPathologist SignatureHpv specimen typeThinPrep 12/17/2020 11:57 AM EDTSUNQUESTHpv 16NegativeNegative^Hukzvitq33/07/2021 2:14 PM [facility] LABHpv 18NegativeNegative^Rccdwtpu95/07/2021 2:14 PM [facility] LABOther high risk hpvNegative Negative^Urbgkmlx03/07/2021 2:14 PM [facility] LABComment: HPV types 31,33,35,39,45,52,56,58,59,66 and 68 DNA were undetectable. Specimen (Source)Anatomical Location / LateralityCollection Method / Volume Collection TimeReceived WmcjPEOZC91/05/2021 11:57 AM EDT12/17/2020 11:57 AM EDT Narrative Authorizing ProviderResult TypeResult StatusRivka Rogers ADDICTION SOCIAL WORKER-CNMLAB BLOOD ORDERABLESFinal ResultPerforming OrganizationAddressCity/State/ZIP CodePhone Number SUN[facility] [address] [place] [address] from Last 3 Months or Most Recently Relevant to Health Maintenance Insurance Advance Directives * Full Code (Latest Code Status on File) Date ActivatedDate InactivatedComments03/25/2020 11:33 AM03/26/2020 5:48 PM Care Teams Team MemberRelationshipSpecialtyStart DateEnd Date Moriah Mack, CECY-NEUROLOGIST [address], [place] [address] PCP - GeneralFamily Medicine01/31/20
--- OUTSIDE RECORDS SUMMARY | 2025-08-05 11:07 | XMS_ITS | Encounter Summary ---
Author Organization [facility] Address [address] [place] [address] Care Team Providers Care Hvac Sales Representative Name Role Phone Samia Rosales CNP Primary Care Provider [phone] Reason for Visit * ReasonOnset DateCommentsMed Vmbvmh2108/01/2025 Encounter Details DateTypeDepartmentCare Team (Latest Contact Info)Nlljobaiusx89/19/2025Refill [facility] Heart at [facility] [address] [place] [address] Roya Joaquin, ANTHONY [address] [place] [address] Coronary artery disease without angina pectoris, unspecified vessel or lesion type, unspecified whether [place] or transplanted heart Social History Tobacco UseTypesPacks/DayYears UsedDateSmoking Tobacco: FormerCigarettes 10/20/1987 - 10/19/2022Smokeless Tobacco: NeverAlcohol UseStandard Drinks/Week CommentsNot Currently0 (1 standard drink = 0.6 oz pure alcohol)AR Safety & EnvironmentAnswerDate RecordedFear of Current or Ex-PartnerNot on file10/05/2023 Emotionally AbusedNot on file10/05/2023hysically AbusedNot on file10/05/2023 Sexually AbusedNot on file10/05/2023hysically or Sexually AbusedNot on file 10/05/2023CommentsNoSex and Gender InformationValueDate RecordedSex Assigned at DtxymGamdvs94/04/2022 6:36 AM EDTLegal PagMjffxa20/29/2022 9:12 PM EDTGender HwlpbtvqQxqlkk57/04/2022 6:36 AM EDTSexual OrientationHeterosexual or Siknwfkg05/04/2022 6:36 AM EDTdocumented as of this encounter Plan of Treatment DateTypeDepartmentCare Team (Latest Contact Info)Gonvsikurrz52/21/2026 9:30 AM ESTAncillary Procedure [facility] Heart at [address] [address] documented as of this encounter Visit Diagnoses Diagnosis Coronary artery disease without angina pectoris, unspecified vessel or lesion type, unspecified whether [place] or transplanted heart documented in this encounter Care Teams Team MemberRelationshipSpecialtyStart DateEnd Date Samia Rosales CNP [facility], [facility] [place] [address] PCP - GeneralFamily Sztowwck34/15/23documented as of this encounter
--- OUTSIDE RECORDS SUMMARY | 2025-08-05 11:07 | XMS_ITS | Clinical Summary ---
Author Organization [facility] Address [address] [place] [address] Phone Care Team Providers Care Orange Peel Operator Name Role Phone Unavailable Primary Care Provider Unavailabl e Social History Tobacco UseTypesPacks/DayYears UsedDateSmoking Tobacco: Never AssessedPHQ-2 AnswerDate RecordedPatient Health Questionnaire-2 Wuqim8102 CommentsUnknownSex and Gender InformationValueDate RecordedSex Assigned at Not on fileLegal NncBumgju36/25/2022 1:38 PM ESTGender IdentityNot on fileSexual OrientationNot on file Last Filed Vital Signs Vital SignReadingTime TakenCommentsBlood Wgmqpgzy209/5806 12:07 PM EDT Crzzt3190 11:58 AM EDTTemperature--Respiratory Rate--Oxygen Saturation-- Inhaled Oxygen Concentration--Hepuek01.4 kg (186 lb)01/20/2022 11:58 AM EDT Npxams557.3 cm (4' 10 )01/20/2022 11:58 AM EDTBody Mass Index38.8706 11:58 AM EDT Plan of Treatment Not on file
--- OUTSIDE RECORDS SUMMARY | 2025-08-05 11:07 | XMS_ITS | Encounter Summary ---
Author Organization [facility] Address [address] [place] [address] Care Team Providers Care Field Reimbursement Manager Name Role Phone Samia Rosales CNP Primary Care Provider [phone] Reason for Visit * ReasonOnset DateCommentsMed Euwnbs5308/04/2025 Encounter Details DateTypeDepartmentCare Team (Latest Contact Info)Pjykvqxyyps45/22/2025Refill [facility] Heart at [place] [address] [place] [address] Jaden [place], [place] Coronary artery disease without angina pectoris, unspecified vessel or lesion type, unspecified whether [place] or transplanted heart Social History Tobacco UseTypesPacks/DayYears UsedDateSmoking Tobacco: FormerCigarettes 10/20/1987 - 10/19/2022Smokeless Tobacco: NeverAlcohol UseStandard Drinks/Week CommentsNot Currently0 (1 standard drink = 0.6 oz pure alcohol)OR Safety & EnvironmentAnswerDate RecordedFear of Current or Ex-PartnerNot on file10/05/2023 Emotionally AbusedNot on file4Physically AbusedNot on file10/05/2023 Sexually AbusedNot on file4Physically or Sexually AbusedNot on file 10/05/2023CommentsNoSex and Gender InformationValueDate RecordedSex Assigned at NrflkCptizi02/04/2022 6:36 AM EDTLegal NxeKxpbbw78/29/2022 9:12 PM EDTGender DlcarjsqFnxhky53/04/2022 6:36 AM EDTSexual OrientationHeterosexual or Mhrovfqw31/04/2022 6:36 AM EDTdocumented as of this encounter Plan of Treatment DateTypeDepartmentCare Team (Latest Contact Info)Yxpomqassgd03/21/2026 9:30 AM ESTAncillary Procedure [facility] Heart at [address] [phone] documented as of this encounter Visit Diagnoses Diagnosis Coronary artery disease without angina pectoris, unspecified vessel or lesion type, unspecified whether [place] or transplanted heart documented in this encounter Care Teams Team MemberRelationshipSpecialtyStart DateEnd Date Samia Rosales CNP [facility], [facility] [place] [address] PCP - GeneralFamily Ytkdafse43/15/23documented as of this encounter
--- OUTSIDE RECORDS SUMMARY | 2025-08-05 11:08 | XMS_ITS | Clinical Summary ---
Author Organization [facility] Address [address] [place] [address] Care Team Providers Care Beam Dyer Name Role Phone Samia Rosales CNP Primary Care Provider [phone] Allergies Active AllergyReactionsCriticalityNoted DateCommentsChlorhexidine Gluconate GfemeijJbnskf58/14/2020 Burning MoxifloxacinAnaphylaxis,Hives,OyfhsnscOyzn69/10/2022 AKA: Avalox Medications MedicationSigDispense QuantityRefillsLast FilledStart DateEnd DateStatus albuterol 90 mcg/actuation inhaler inhale 1 to 2 puffs by mouth and INTO THE LUNGS every 4 to 6 hours if needed 01/03/2022ctive buPROPion XL (Wellbutrin XL) 300 mg 24 hr tablet Take 300 mg by mouth in the morning.04/10/2022ctive DULoxetine [address] capsule Take 40 mg by mouth in the morning and at bedtime.10/18/2022ctive levothyroxine (Synthroid, Levoxyl) 125 mcg tablet Take 125 mcg by mouth before breakfast.07/31/2022ctive busPIRone (Buspar) 10 mg tablet every 12 (twelve) hours.02/06/2023ctive guselkumab (Tremfya) 100 mg/mL syringe Indications:Psoriasis,Psoriatic arthritis (CMS/HCC)Inject 1mL under the skin on Day 0 and Day 29, then every 8 weeks thereafter 2 mL 03/06/2023ctive Additional Information Patient not taking.Reported on 05/05/2025 guselkumab (Tremfya) 100 mg/mL syringe Indications:Psoriasis,Psoriatic arthritis (CMS/HCC)Inject 1mL under the skin every 8 weeks 1 mL ctive Additional Information Patient not taking.Reported on 05/05/2025 furosemide (Lasix) 40 mg tablet Indications:Chronic systolic heart failure (CMS/HCC)Take 1 tablet (40 mg) by mouth in the morning. 90 tablet ctive Additional Information Patient taking differently: 20 mgoral Daily, Reported on 05/05/2025 semaglutide (Ozempic) 1 mg/dose (2 mg/1.5 mL) pen injector Inject 1 mg under the skin 1 (one) time per week.Active aspirin 81 mg EC tablet 81 mg.01/14/2022ctive Arnuity Ellipta 100 mcg/actuation inhaler 06/28/2024ctive carvedilol (Coreg) 12.5 mg tablet Indications:Chronic systolic heart failure (CMS/HCC)Take 1 tablet (12.5 mg) by mouth with breakfast and with evening meal. 180 tablet ctive potassium chloride CR (Klor-Con M10) 10 mEq ER tablet Indications:Chronic systolic heart failure (CMS/HCC)TAKE ONE TABLET BY MOUTH EVERY MORNING DO NOT CHEW OR CRUSH 90 tablet 5Active spironolactone (Aldactone) 25 mg tablet Indications:Chronic systolic heart failure (CMS/HCC)Take 1 tablet (25 mg) by mouth once daily as directed. 90 tablet 5Active ivabradine (Corlanor) 5 mg tablet Indications:Chronic systolic heart failure (CMS/HCC)Take 1 tablet (5 mg) by mouth two times daily. 180 tablet 503/6Active sacubitril-valsartan (Entresto) 49-51 mg tablet Indications:Chronic systolic congestive heart failure (CMS/HCC)Take 1 tablet by mouth two times daily. 180 tablet /065216/ctive pantoprazole (ProtoNix) 40 mg EC tablet Indications:Chest pain, unspecified typeTake 1 tablet (40 mg) by mouth before breakfast. Do not crush, chew, or split. 90 tablet //ctive cetirizine (ZyrTEC) 10 mg tablet Take 10 mg by mouth in the morning.Active cholecalciferol, vitamin D3, 50 mcg (2,000 unit) capsule Take 1 capsule by mouth 1 (one) time each day at the same time.Active nitroglycerin (Nitrostat) 0.4 mg SL tablet Indications:Coronary arteriosclerosisPlace 1 tablet (0.4 mg) under the tongue every 5 (five) minutes if needed for chest pain. 25 tablet tive atorvastatin (Lipitor) 80 mg tablet Indications:Coronary artery disease without angina pectoris, unspecified vessel or lesion type, unspecified whether w[place] or transplanted heartTake 1 tablet (80 mg) by mouth at bedtime. 90 tablet tive clopidogrel (Plavix) 75 mg tablet Indications:Coronary artery disease without angina pectoris, unspecified vessel or lesion type, unspecified whether w[place] or transplanted heartTake 1 tablet (75 mg) by mouth once daily as directed. 90 tablet tive nitroglycerin (Nitrostat) 0.4 mg SL tablet Indications:Coronary arteriosclerosisPlace 1 tablet (0.4 mg) under the tongue every 5 (five) minutes if needed for chest pain. 25 tablet Discontinued(Reorder) atorvastatin (Lipitor) 80 mg tablet Indications:Coronary artery disease without angina pectoris, unspecified vessel or lesion type, unspecified whether w[place] or transplanted heartTAKE 1 TABLET BY MOUTH AT BEDTIME 90 tablet Discontinued(Reorder) clopidogrel (Plavix) 75 mg tablet Indications:Coronary artery disease without angina pectoris, unspecified vessel or lesion type, unspecified whether w[place] or transplanted heartTAKE ONE TABLET BY MOUTH EVERY MORNING 90 tablet Discontinued(Reorder) Active Problems ProblemNoted DateDiagnosed DateAcute zsbulyrywloeg69/22/2025rticular cartilage disorder of wrist05/05/20253350Zyfmwm39/22/2025Hot flashes due to menopause 05/05/20254089Mcdbalpcimiyou91/22/2025Localized, primary osteoarthritis of hand 05/05/2025Parietoalveolar pqfjqhordpl05/22/8651Tgoytntnr78/22/2025Radial styloid mjascowmsijox57/22/2025Stage 3a chronic kidney eabakzy4705/05/2025Vitamin D icldyqmquk49/22/2025Generalized anxiety tungmmxt20hronic systolic heart atafelb0607/04/2022 Assessment & Plan (01/12/2024 10:14 AM EDT): [facility] II-currently euvolemic without exacerbation, no activity limiting symptoms Continue GDMT-aspirin, Lipitor, Coreg, Jardiance, Entresto and Aldactone with Diuretic therapy of Lasix 40 mg daily Monitor daily weights, I&O, fluid restriction 1.5-2L/day, renal function and electrolytes- Assessment & Plan (02/10/2023 11:57 AM EDT): [facility]- II-III Continue GDMT- ASA, lipitor, crestor, coreg, jardiance and entresto Diuretic therapy- lasix 40 mg daily Monitor daily weights, I&O, fluid restriction 1.5-2L/day, renal function and electrolytes- Assessment & Plan (01/13/2023 12:48 PM EDT): [facility] II, currently volume overloaded and weight up 7 pounds Continue GDMT-Continue ASA, entresto, lipitor, coreg, plavix, jardiance and aldactone. Diuretic therapy-increase lasix to 40 mg daily and add KCL 10 meq daily ?? Monitor daily weights, I&O, fluid restriction 1.5-2L/day, renal function and electrolytes- ?? Assessment & Plan (11/30/2022 11:41 AM EDT): [facility] II, currently euvolemic without exacerbation- Continue GDMT- transition lisinopril to entresto- d/w pt to stop lisinopril and after 2 days she may start taking entresto- repeat BMP in 1 week to assess renal function. Continue ASA, lipitor, coreg, plavix, lasix, jardiance and aldactone. Diuretic therapy- lasix 20 mg daily Monitor daily weights, I&O, fluid restriction 1.5-2L/day, renal function and electrolytes- Chest pain06/08/2022ICD (implantable cardioverter-defibrillator), dual, in situ 05/25/2022 Assessment & Plan (11/30/2022 [...] to plavix. Acute non-ST segment elevation myocardial nxrkmenjck47/27/2022oronary gcfnwlrmrcrgpakt46/27/2022 Assessment & Plan (01/12/2024 10:13 AM EDT): [...] exercise as tolerated and continue all medications. Akclshhqotxohd63/27/2022 Assessment & Plan (01/12/2024 7:06 AM EDT): Lipid abnormalities are unchanged, well controlled; PCP monitoring LFT. Pharmacotherapy as ordered. Lipids will be reassessed annually. Assessment & Plan (01/13/2023 12:49 PM EDT): Continue statin Assessment & Plan (11/30/2022 11:42 AM EDT): continue atorvastatin Left ventricular mrhasiwv12/27/2022 Assessment & Plan (01/12/2024 7:05 AM EDT): No thrombus noted on last 2 TTE Assessment & Plan (01/13/2023 12:49 PM EDT): Resolved on echo Assessment & Plan (11/30/2022 11:39 AM EDT): Warfarin has been stopped due to resolution of her left ventricular thrombus. ?Echocardiogram with Lumason contrast in August 2022 showed EF 25-30% with no LV thrombus off of warfarin therapy. Gdjafiq5002/07/2022Tobacco user02/07/2022rogressive avascular necrosis of lunate 2Pain of joint of both hands05/18/2021vascular necrosis of bone of wrist1Benign hypertensive cardiomyopathy with heart cfqfslw4302/01/2021 Assessment & Plan (01/12/2024 10:14 AM EDT): HTN is well-controlled with current med regimen and renal function stable Assessment & Plan (01/13/2023 12:46 PM EDT): HTN currently well controlled Continue current med regime Assessment & Plan (11/30/2022 11:42 AM EDT): HTN- stable and well controlled Psoriatic ugfgwjwid05/20/2021 Resolved Problems ProblemNoted DateDiagnosed DateResolved DateEssential gxqidnjjxocf71/27/2022 11/30/2022 Encounters DateTypeDepartmentCare NvmmEnogdwejnsa01/22/[address]25[address] [phone] Danielle Stanley MA Coronary artery disease without angina pectoris, unspecified vessel or lesion type, unspecified whether w[place] or transplanted heart08/01/[address] [place] [address] Roya Joaquin CNP Coronary artery disease without angina pectoris, unspecified vessel or lesion type, unspecified whether w[place] or transplanted heart07/17/2025[facility] [address] [place] [facility] [place] [phone] Roya Joaquin CNP Coronary skttqojwjbmcrxpn39/02/2025 10:10 AM ESTAncillary Procedure [facility] [address] [facility] [place] [address] Pre-operative cardiovascular examination, ICD in place07/15/2025Orders Only [facility] [address] [place], [place] [address] [place] [address] Alton Parks MD 07/14/2025 1:00 PM ESTAncillary Procedure [facility] [address] [place] [phone] Pre-operative cardiovascular examination, ICD in place06/16/2025 11:35 AM EST Ancillary Procedure [facility] [address] [facility] [place] [address] Pre-operative cardiovascular examination, ICD in place06/14/2025Orders Only [facility] [address] [place] [phone] Andriy Montes MD 05/14/2025 12:35 PM EDTAncillary Procedure [facility] [address] [place] [address] Pre-operative cardiovascular examination, ICD in place05/14/2025Orders Only [facility] [address] [facility] [place] [address] Alton Parks MD from Last 3 Months Immunizations ImmunizationAdministration DatesNext DueInfluenza, seasonal, injectable, preservative free, 6 moonths & older09/12/2016Pneumococcal Polysaccharide PPV23 05/14/2014 Family History Medical HistoryRelationNameCommentsHeart attackFatheraortic valve disorderFather pacemakerFatherAtrial fibrillationMotherpacemakerMotherRelationNameStatus CommentsFatherDeceasedMotherAlive Social History Tobacco UseTypesPacks/DayYears UsedDateSmoking Tobacco: FormerCigarettes 10/20/1987 - 10/19/2022Smokeless Tobacco: Never Tobacco Cessation:Counseling Given: Not Answered Alcohol UseStandard Drinks/WeekCommentsNot Currently0 (1 standard drink = 0.6 oz pure alcohol)UT Safety & EnvironmentAnswerDate RecordedFear of Current or Ex-PartnerNot on file10/05/2023Emotionally AbusedNot on file10/05/2023hysically AbusedNot on file10/05/2023Sexually AbusedNot on file10/05/2023hysically or Sexually AbusedNot on file10/05/2023CommentsNoSex and Gender Information ValueDate RecordedSex Assigned at SolvaXwqoua71/04/2022 6:36 AM EDTLegal Sex Xgiejw5702/09/2022 9:12 PM EDTGender CycbdxlvIowiyb34/04/2022 6:36 AM EDTSexual OrientationHeterosexual or Zjdafwdz20/04/2022 6:36 AM EDT Last Filed Vital Signs Vital SignReadingTime TakenCommentsBlood Nnkootik161/60005/05/2025 4:22 PM EDT Gnpal7961/22/2025 4:22 PM IQIKgxkrxnlguy99.7 ??C (98 ??F)06/11/2022 10:15 AM EDT Respiratory Axwp4110 10:15 AM EDTOxygen Pmomebdypq37%05/05/2025 4:22 PM EDTInhaled Oxygen Concentration--Aewhwv48.1 kg (128 lb)05/05/2025 4:22 PM EDT Apafip325.3 cm (4' 10 )05/05/2025 4:22 PM EDTBody Mass Index26.75005/05/2025 4:22 PM EDT Plan of Treatment DateTypeDepartmentCare Team (Latest Contact Info)Mhxhvtpsgtm40/21/2026 9:30 AM ESTAncillary Procedure [facility] [address] [place] [address] Health MaintenanceDue DateLast DoneCommentsCT Hwnkwpstixtx1971Colonoscopy 1971Colorectal Cancer Vcgsuflbt1971FIT-DNA1971FIT1971 FOBT1971Medicare Annual Wellness (AWV)1970 7015Okdrltdxyzzlc1971 Depression Svvnarlag73/13/1983Hepatitis B Vaccines (1 of 3 - 19+ 3-dose series) 1990Pap Smear01/25/1992Cervical Cancer Undfaaald48/13/2001HPV/Cotest 01/24/20018903Rrxduqwqm53/13/2011Pneumococcal Vaccine: Pediatrics (0 to 5 Years) and At-Risk Patients (6 to 64 Years) (2 of 2 - PCV)Zoster Vaccines (1 of 2)1COVID-19 Vaccine (1 - season)2025 Influenza Vaccine (#1)/Adult Suaqmgi24HIB VaccinesAged OutNo longer eligible based on patient's age to complete this topic HPV VaccinesAged OutNo longer eligible based on patient's age to complete this topicIPV VaccinesAged OutNo longer eligible based on patient's age to complete this topicMeningococcal B VaccineAged OutNo longer eligible based on patient's age to complete this topicMeningococcal VaccineAged OutNo longer eligible based on patient's age to complete this topicRotavirus VaccinesAged OutNo longer eligible based on patient's age to complete this topic Medical Devices ImplantedTypeAreaManufacturerDevice IdentifierShelf Expiration DateModel / Serial / LotDefibMatthew Df4-Dr - [id number] - [id number] Implanted:Qty: 1 on 05/17/2022 [facility] [id number] / [id number] / Ingevity+ Is-1 Bi Positive Fix Ra/Rv 52cm Implanted:Qty: 1 on 05/17/2022 by [facility] Parks [facility]Lead[facility]/A: [facility] Ikuqurajfl68//[id number] / [id number] / [place] 4-Front S Active Fix Single Coil 59cm Implanted:Qty: 1 on 05/17/2022 by [facility]: [facility] Bzhgclwitk95/19/[id number] / [id number] / Procedures Procedure NamePriorityDate/TimeAssociated DiagnosisCommentsCARDIAC DEVICE CHECK CHECK - CUYGIQUbbqolh19/05/2025 5:03 PM EST Pre-operative cardiovascular examination, ICD in place CARDIAC DEVICE CHECK CHECK - IHOYVUBreldnv07/05/2025 5:01 PM EST Pre-operative cardiovascular examination, ICD in place CARDIAC DEVICE CHECK - REMOTE - PROZqhyivu80/02/2025 12:00 AM ESTCARDIAC DEVICE CHECK - REMOTE - UBVWgbysxr34/02/2025 12:00 AM ESTCARDIAC DEVICE CHECK CHECK - HAZTNUKwagcul25/04/2025 4:58 PM EST Pre-operative cardiovascular examination, ICD in place CARDIAC DEVICE CHECK - REMOTE - SYZMibmmfj59/01/2025 12:00 AM EDTCARDIAC DEVICE CHECK CHECK - FUTKEDGdkykgj82/03/2025 2:45 PM EDT Pre-operative cardiovascular examination, ICD in place CARDIAC DEVICE CHECK - REMOTE - SBQTpveoxi12/01/2025 12:00 AM EDTfrom Last 3 Months Results * CARDIAC DEVICE CHECK - REMOTE - ICD (07/18/2025 5:03 PM EST) Only the most recent of4 resultswithin the time period is included. Specimen (Source)Anatomical Location / LateralityCollection Method / Volume Collection TimeReceived Time Narrative Authorizing ProviderResult TypeResult StatusBlair Molly [facility] [place] IMPLANTABLE CARDIAC DEVICE PROCEDURESFinal ResultPerforming OrganizationAddressCity/State/ZIP Code Phone Number CPACS * Cardiac device check - Remote ICD (07/15/2025 12:00 AM EST) Only the most recent of4 resultswithin the time period is included. Anatomical RegionLateralityModalityOtherSpecimen (Source)Anatomical Location / LateralityCollection Method / VolumeCollection TimeReceived Time07/15/2025 Narrative Authorizing ProviderResult TypeResult StatusPapatria Parks MDCV IMPLANTABLE CARDIAC DEVICE PROCEDURESFinal Result from Last 3 Months Insurance * Guarantor: Ana Rosa TypeRelation to PatientDate of BirthPhone Billing AddressPersonal/CwfswuHsxt1970 [address] [address] Advance Directives * Full Code (Latest Code Status on File) Date ActivatedDate TmkphgtkdluVrjwxztb04/26/2022 3:46 PM10 1:47 PM Care Teams Team MemberRelationshipSpecialtyStart DateEnd Date Samia Rosales CNP [address] [place] [place] [address], [place] [address] PCP - GeneralFamily Rfjrwjdz30/15/23
--- OUTSIDE RECORDS SUMMARY | 2025-08-05 11:08 | XMS_ITS | Patient Health Record ---
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 Role Phone Samia Rosales Primary Care Provider Allergies Allergen (clinical drug ingredient) Drug/Non Drug Allergy documented on EMR Reaction Allergy Type Onset Date Status paper tape (uncoded)rashAllergyActivemoxifloxacinAveloxswelling/itchingDrug AllergyActive Results Component Value Reference Range Notes COVID-19, Flu A+B IH Reviewed date:05/08/2025 11:13:21 AM Interpretation: Performing Lab: Notes/Report: COVID - FLU A-FLU B-Control+ITP Reviewed date:09/10/2024 11:01:25 AM Interpretation: Performing Lab: Notes/Report: Source Facility: [place] [address] [place] [address] Cardiac Rehab Report Signed Patient: JAVIER LINK MR#: [id number] : 1970 Acct:[id number] Age/Sex: 54 / F ADM Date: 09/09/24 Loc: CR Attending Dr: DEENA SANTA Ordering Physician: Pranav Talavera D.O. Date of Service: 09/09/24 Procedure(s): ITP Accession Number(s): [id number] cc: The Test Date: 2024-09-09 Pat Name: JAVIER LINK Department: Room: - Gender: Female Safety Coordinator: : 1970 Requested By: PRANAV TALAVERA Order Number: [id number] Deanna MD: PRANAV TALAVERA Interpretive Statements Session Date: Electronically Signed On 09-09-2024 20:25:35 EST by PRANAV TALAVERA Dictated By: Pranav Talavera D.O. Signed By: 09/09/24202409/09/242024 DD/ 1344 TD/TT: Informatics Scientist:BNP Reviewed date:09/26/2024 02:27:41 PM Interpretation: Performing Lab: Notes/Report: The ,NT Pro B Type Natriuretic Xrar698.0<=900.0 pg/mLPerforming Lab:see noteML - The LBCBC AUTO DIFF Reviewed date:09/26/2024 02:27:41 PM Interpretation: Performing Lab: Notes/Report: The ,White Blood Count7.74.0-11.0 10 3/uLRed Blood Count4.194.20-5.40 10 6/uL Niexmyyefd30.512.0-16.0 g/eKEbrsgywoup33.436.0-48.0 %Mean Corpuscular Dcmjao60.0 81.0-99.0 fLMean Corpuscular Pwsqdrlflj48.226.7-34.0 pgMean Corpuscular HGB Conc 34.329.9-35.2 g/dLRed Cell Distribution Width12.411.0-15.0 %Platelet Jwwon507 150-450 10 3/uLMean Platelet Srzkgz24.89.5-13.5 fLNeutrophils Percent Auto62.3 43.0-75.0 %Lymphocytes Percent Auto28.020.5-60.0 %Monocytes Percent Auto7.51.7- 12.0 %Eosinophils Percent Auto1.40.9-7.0 %Basophils Percent Auto0.70.2-2.0 % Immature Granulocytes Pct Auto0.10.0-0.5 %Neutrophils Absolute Auto4.81.4-6.5 10 3/uLLymphocytes Absolute Auto2.21.2-3.8 10 3/uLMonocytes Absolute Auto0.60.3-0.8 10 3/uLEosinophils Absolute Auto0.10.0-0.7 10 3/uLBasophils Absolute Auto0.10.0- 0.1 10 3/uLImmature Granulocytes Abs Auto0.010.00-0.03 10 3/uLPerforming Lab:see noteML - [facility] LBPROF CHEM 8 (BAS METB) Reviewed date:09/26/2024 02:27:41 PM Interpretation: Performing Lab: Notes/Report: The ,Slalfk613588-376 mmol/LPotassium4.23.5-5.1 mmol/PUlscsinn2024-950 mmol/LCarbon Ofgjpmk79.421.0-32.0 mmol/LAnion Gap10.7Ulygnml9737-427 mg/dLBlood Urea Nitrogen 9.07.0-18.0 mg/dLCreatinine1.080.55-1.02 mg/dLEstimated GFR ( Renea>60 >=60 mL/min/1.73m 2Estimated GFR (Non- Ame53>=60 mL/min/1.73m 2BUN Creatinine Ratio8.3Lnngjpo3.88.5-10.1 mg/dLPerforming Lab:see noteML - [facility] LBCBC AUTO DIFF Reviewed date:10/28/2024 04:16:12 PM Interpretation: Performing Lab: Notes/Report: The ,White Blood Count9.04.0-11.0 10 3/uLRed Blood Count3.994.20-5.40 10 6/uL Gjncuwwspw00.012.0-16.0 g/wONgrzdvheqk74.136.0-48.0 %Mean Corpuscular Haaicv28.5 81.0-99.0 fLMean Corpuscular Nsakznzpae18.626.7-34.0 pgMean Corpuscular HGB Conc 34.129.9-35.2 g/dLRed Cell Distribution Width12.611.0-15.0 %Platelet Jquuo190 150-450 10 3/uLMean Platelet Ilenbh15.39.5-13.5 fLNeutrophils Percent Auto58.4 43.0-75.0 %Lymphocytes Percent Auto32.620.5-60.0 %Monocytes Percent Auto6.81.7- 12.0 %Eosinophils Percent Auto1.70.9-7.0 %Basophils Percent Auto0.40.2-2.0 % Immature Granulocytes Pct Auto0.10.0-0.5 %Neutrophils Absolute Auto5.21.4-6.5 10 3/uLLymphocytes Absolute Auto2.91.2-3.8 10 3/uLMonocytes Absolute Auto0.60.3-0.8 10 3/uLEosinophils Absolute Auto0.20.0-0.7 10 3/uLBasophils Absolute Auto0.00.0- 0.1 10 3/uLImmature Granulocytes Abs Auto0.010.00-0.03 10 3/uLPerforming Lab:see noteML - [facility] LBITP Reviewed date:11/17/2024 09:49:46 PM Interpretation: Performing Lab: Notes/Report: Source Facility: [place] [address] Cardiac Rehab Report Signed Patient: JAVIER LINK MR#: [id number] : 1970 Acct:[id number] Age/Sex: 54 / F ADM Date: 11/08/24 Loc: CR Attending Dr: DEENA SANTA Ordering Physician: Pranav Talavera D.O. Date of Service: 11/05/24 Procedure(s): HARISH Accession Number(s): [id number] cc: [facility] Test Date: 2024-11-05 Pat Name: JAVIER LINK Department: Room: - Gender: Female Safety Coordinator: : 1970 Requested By: PRANAV TALAVERA Order Number: [id number] Deanna MD: PRANAV TALAVERA Interpretive Statements Session Date: Electronically Signed On 11-09-2024 14:29:47 EDT by PRANAV TALAVERA Dictated By: Pranav Talavera D.O. Signed By: 11/09/24 14311/09/24 143 DD/ 04 TD/TT: Informatics Scientist:HARISH Reviewed date:01/07/2025 09:32:30 AM Interpretation: Performing Lab: Notes/Report: Source Facility: [address] [place] [address] Cardiac Rehab Report Signed Patient: JAVIER LINK MR#: [id number] : 1970 Acct:[id number] Age/Sex: 54 / F ADM Date: 01/01/25 Loc: CR Attending Dr: DEENA SANTA Ordering Physician: Juan Abreu D.O. Date of Service: 01/01/25 Procedure(s): ITP Accession Number(s): [id number] cc: The Test Date: 2025-01-01 Pat Name: JAVIER LINK Department: Room: - Gender: Female Safety Coordinator: : 1970 Requested By: Juan Abreu Order Number: [id number] Reading MD: Juan Abreu Interpretive Statements Though it can be difficult to attend rehab due to personal issues, taking care of oneself is important. The patient is encouraged to continue participating in cardiac rehabilitation. Electronically Signed On 01-01-2025 18:36:58 EDT by Juan Abreu Dictated By: Juan Abreu D.O. Signed By: 01/01/25183601/01/251836 DD/ 1030 TD/TT: Informatics Scientist:CBC AUTO DIFF Reviewed date:04/29/2025 01:10:58 PM Interpretation: Performing Lab: Notes/Report: The ,White Blood Count8.84.0-11.0 10 3/uLRed Blood Count4.034.20-5.40 10 6/uL Mhwtibtshb23.212.0-16.0 g/dOIkcakzpjcn93.536.0-48.0 %Mean Corpuscular Weezgz23.5 81.0-99.0 fLMean Corpuscular Nqglobifas20.826.7-34.0 pgMean Corpuscular HGB Conc 34.329.9-35.2 g/dLRed Cell Distribution Width12.611.0-15.0 %Platelet Znpud967 150-450 10 3/uLMean Platelet Phxryr63.89.5-13.5 fLNeutrophils Percent Auto68.9 43.0-75.0 %Lymphocytes Percent Auto21.820.5-60.0 %Monocytes Percent Auto6.91.7- 12.0 %Eosinophils Percent Auto1.50.9-7.0 %Basophils Percent Auto0.70.2-2.0 % Immature Granulocytes Pct Auto0.20.0-0.5 %Neutrophils Absolute Auto6.11.4-6.5 10 3/uLLymphocytes Absolute Auto1.91.2-3.8 10 3/uLMonocytes Absolute Auto0.60.3-0.8 10 3/uLEosinophils Absolute Auto0.10.0-0.7 10 3/uLBasophils Absolute Auto0.10.0- 0.1 10 3/uLImmature Granulocytes Abs Auto0.020.00-0.03 10 3/uLPerforming Lab:see noteML - [facility] LBINSULIN Reviewed date:04/28/2025 04:26:45 PM Interpretation: Performing Lab: Notes/Report: [facility] ,Rqgpiwi13.12.6-24.9 uIU/mL Performed at: - [facility] [address] [id number] Field Marketing Director: Akira Taylor PhD, Phone: [phone] Performing Lab:see note - [facility] LBPROF 14(COMP METB) Reviewed date:04/29/2025 01:10:58 PM Interpretation: Performing Lab: Notes/Report: [facility] ,Kceccb964277-513 mmol/LPotassium4.83.5-5.1 mmol/CNrzvuzpq85356-459 mmol/LCarbon Pqruilk70.621.0-32.0 mmol/LAnion Gap14.1Hyxfbum2124-273 mg/dLBlood Urea Nitrogen 9.07.0-18.0 mg/dLCreatinine0.930.55-1.02 mg/dLEstimated GFR ( Renea>60 >=60 mL/min/1.73m 2Estimated GFR (Non- [place]>60>=60 mL/min/1.73m 2BUN Creatinine Ratio9.8Rzjsgyw0.98.5-10.1 mg/dLBilirubin Total0.50.2-1.0 mg/dL Aspartate Amino Fqyrxwsxotw4772-47 U/LAlanine Skpuhibtkhhkittz9379-97 U/L Alkaline Mjsireoakhz55311-330 U/LTotal Protein7.16.4-8.2 g/dLAlbumin Level3.3 3.4-5.0 g/dLGlobulin3.8Albumin Globulin Ratio0.9Performing Lab:see noteML - [facility] LBT4 Reviewed date:04/29/2025 01:10:58 PM Interpretation: Performing Lab: Notes/Report: The ,T4 Ooowjtbvr64.804.80-13.90 ug/dLPerforming Lab:see noteML - [facility] LBTSH Reviewed date:04/29/2025 01:10:58 PM Interpretation: Performing Lab: Notes/Report: The ,Thyroid Stimulating Hormone0.0740.358-3.740 uIU/mLPerforming Lab:see note - [facility] LBVITAMIN D 25 [place] Reviewed date:04/29/2025 01:10:58 PM Interpretation: Performing Lab: Notes/Report: The ,Vitamin D57.1 <20 ng/mL Vit D deficient 20-<30 ng/mL Vit D insufficient 30-100 ng/mL Vit D sufficient >100 ng/mL Potential Toxicity Performing Lab:see note - [facility] LBLIPID PROFILE Reviewed date:04/29/2025 01:10:58 PM Interpretation: Performing Lab: Notes/Report: The ,Yaerynoqxblqm52<=150 mg/iLCucmkgkxnmq20<=200 mg/dLHDL Cpzgovdoips5585-63 mg/dL > or =60 mg/dl - LOW CARDIOVASCULAR RISK <40 mg/dl - HIGH CARDIOVASCULAR RISK LDL Cholesterol Zsmsusnvfp05.6 <100 mg/dl OPTIMAL 100-129 mg/dl NEAR OR ABOVE OPTIMAL 130-159 mg/dl BORDERLINE HIGH 160-189 mg/dl HIGH >190 mg/dl VERY HIGH VLDL KXDECZMNUIB31.4Chol HDL Ratio2.2 3.3 - 4.4 LOW RISK 4.4 - 7.1 AVERAGE RISK 7.1 - 11.0 MODERATE RISK >11.0 HIGH RISK Performing Lab:see noteML - [facility] LBIRON Reviewed date:04/29/2025 01:10:58 PM Interpretation: Performing Lab: Notes/Report: The ,Iron76.050.0-170.0 ug/dLPerforming Lab:see note - [facility] GLYCOHEMOGLOBIN A1C Reviewed date:04/29/2025 01:10:58 PM Interpretation: Performing Lab: Notes/Report: The ,Glycohemoglobin A1C5.04.5-6.2 % ADA RECOMMENDED LIMIT 4.0 - 6.0 ADA THERAPEUTIC TARGET < 7.0 ACTION SUGGESTED > 7.0 Estimated Average Iilarge43Xjnsixhhmi Lab:see noteML - [facility] FREE T3 Reviewed date:04/29/2025 01:10:58 PM Interpretation: Performing Lab: Notes/Report: The ,Free T31.532.18-3.98 pg/mLPerforming Lab:see note - [facility] CA echo doppler complete Reviewed date:02/04/2025 01:44:43 PM Interpretation: Performing Lab: Notes/Report: Source Facility: [place] [address] Cardiology Report Signed Patient: JAVIER LINK MR#: [id number] : 1970 Acct:[id number] Age/Sex: 55 / F ADM Date: 01/31/25 Loc: CARD Attending Dr: DEENA SANTA Ordering Physician: DEENA SANTA Date of Service: 01/31/25 Procedure(s): CA echo doppler complete Accession Number(s): [id number] cc: SAMIA ROSALES GEORGE Patient Name: JAVIER LINK MR#: [id number] : 1970 Exam Date: 01/31/2025 Ordering Doctor: DR DEENA SANTA M.D. ECHOCARDIOGRAM REPORT PROCEDURE: CA ECHO DOPPLER COMPLETE INDICATIONS: Chronic systolic heart failure, AICD COMPARISON: None. DESCRIPTION: COMPLETE ECHOCARDIOGRAM Real-time transthoracic echocardiography with 2D, M-mode, spectral and color flow Doppler performed. QUALITY: Technical quality was good. LEFT VENTRICLE: Normal chamber size. Borderline left ventricular hypertrophy. There is akinesis of the apex and apical segments. No evidence of thrombus seen. Systolic function is moderately reduced. Estimated LVEF is 35%. LV EF: Moderately reduced left ventricular ejection fraction, (35%). DIASTOLIC: ATRIAL SEPTUM: Visually appears intact. LEFT ATRIUM: Mild dilatation. RIGHT ATRIUM: Normal chamber size. RIGHT VENTRICLE: Normal chamber size. Normal systolic function. Pacer wire present. TRICUSPID VALVE: Normal mobility and thickness. No stenosis with mild regurgitation. Doppler studies reveal mildly (35-45) elevated right sided pressures. RVSP 36 mmHg MITRAL VALVE: Normal mobility and thickness. No evidence of mitral valve stenosis. Mild mitral regurgitation. AORTIC VALVE: Normal trileaflet appearance. Mildly calcified aortic valve. Normal leaflet mobility. No aortic stenosis. No aortic regurgitation. AORTIC ROOT: Normal diameter and appearance. Aortic arch is normal in size. PULMONIC VALVE: Normal thickness and mobility. No stenosis. Trivial regurgitation. PERICARDIUM: No evidence of pericardial effusion. IVC: Collapses with inspiration. IVC is normal in size. PLEURA: CONCLUSION: 1. Left ventricle is normal in size and exhibits akinesis of the apex and apical segments. Global left ventricular systolic function is moderately reduced. Estimated LVEF is 35%. No evidence of left ventricular thrombus. 2. Normal right ventricular size and systolic function. 3. Mild mitral and tricuspid regurgitation. 4. Mildly elevated right-sided pressures. Adult Echocardiography Procedure Report Left Ventricle LVEDD (3.7 - 5.6 cm): 4.44 cm LVESD (2.2 - 4.0 cm): 3.37 cm LVIVS thickness (0.6 - 1.2 cm): 1.15 cm LVPW thickness (0.5 - 1.0 cm): 1.03 cm e': 0.06 m/s E - e': 11.73 LVOT Max Gradient: 2.55 mm[Hg] LVOT Area (cm2): 0.80 m/s Peak Velocity (LVOT): 0.80 m/s Mean Velocity (LVOT): 0.54 m/s LVOT Diameter 1.93 cm Left Atrium LA Volume Index (2D A2C): 39.01 ml/m2 Left Atrium Systolic Dimension: 2.88 cm Mitral Valve MV E to A Ratio: 0.69 Mitral Valve A-Wave Peak Velocity: 0.97 m/s Mitral Valve E-Wave Peak Velocity: 0.67 m/s Right Ventricle Aorta AO Root Diam: 2.76 cm Aortic Valve Peak Velocity(Antegrade Flow): 1.97 m/s, 2.19 m/s Peak Gradient(Antegrade Flow): 15.45 mm[Hg], 19.22 mm[Hg] Mean Velocity(Antegrade Flow): 1.39 m/s, 1.50 m/s Mean Gradient(Antegrade Flow): 8.74 mm[Hg], 10.28 mm[Hg] Velocity Time Integral: 46.89 cm, 51.38 cm Tricuspid Valve Peak Velocity (Regurgitant Flow): 2.75 m/s, 2.87 m/s Pulmonic Valve Mean Gradient: 2.88 mm[Hg] Mean Velocity: 0.80 m/s Peak Velocity: 1.12 m/s, 1.03 m/s Peak Gradient: 4.25 mm[Hg], 5.01 mm[Hg] Right Atrium Right Atrium Systolic Pressure: 32.18 ml, 32.18 ml Dictated by: Deena Santa M.D. on 01/31/2025 at 18:24 Approved by: Deena Santa M.D. on 01/31/2025 at 18:31 Dictated By: DEENA SANTA Signed By: 01/31/251832 DD/ 30 TD/TT: Informatics Scientist:HARISH Reviewed date:01/08/2025 10:16:56 AM Interpretation: Performing Lab: Notes/Report: Source Facility: [place] [address] Cardiac Rehab Report Signed Patient: JAVIER LINK MR#: [id number] : 1970 Acct:[id number] Age/Sex: 54 / F ADM Date: 01/03/25 Loc: CR Attending Dr: DEENA SANTA Ordering Physician: DEENA SANTA Date of Service: 01/03/25 Procedure(s): HARISH Accession Number(s): [id number] cc: The Test Date: 2025-01-03 Pat Name: JAVIER LINK Department: Room: - Gender: Female Safety Coordinator: : 1970 Requested By: DEENA SANTA M.D. Order Number: [id number] Deanna MD: Juan Abreu Interpretive Statements Patient has successfully completed the outlined treatment plan. Excellent that she stated she will continue with phase 3. Electronically Signed On 01-08-2025 9:11:21 EDT by Juan Abreu Dictated By: Juan Abreu D.O. Signed By: 01/08/25 0911 01/08/25 0911 DD/ 1011 TD/TT: Informatics Scientist:HARISH Reviewed date:12/04/2024 12:02:42 PM Interpretation: Performing Lab: Notes/Report: Source Facility: [place] [address] [place] [address] Cardiac Rehab Report Signed Patient: JAVIER LINK MR#: [id number] : 1970 Acct:[id number] Age/Sex: 54 / F ADM Date: 12/04/24 Loc: CR Attending Dr: DEENA SANTA Ordering Physician: Juan Abreu D.O. Date of Service: 12/03/24 Procedure(s): ITP Accession Number(s): [id number] cc: The Test Date: 2024-12-03 Pat Name: JAVIER LINK Department: Room: - Gender: Female Safety Coordinator: : 1970 Requested By: Juan Abreu Order Number: [id number] Deanna MD: Juan Abreu Interpretive Statements Session Date: 12/03/2024 Okay to continue with outlined treatment plan. Electronically Signed On 12-04-2024 11:19:05 EDT by Juan Abreu Dictated By: Juan Abreu D.O. Signed By: 12/04/24 1119 12/04/24 1119 DD/ 1423 TD/TT: Informatics Scientist:PROF MALINDA Wheeler ([facility]) Reviewed date:10/28/2024 01:15:43 PM Interpretation: Performing Lab: Notes/Report: The ,Epmlgj787478-078 mmol/LPotassium4.13.5-5.1 mmol/MGreldjpq6956-482 mmol/LCarbon Rttgvzq24.321.0-32.0 mmol/LAnion Gap10.5Llwxxyv3145-592 mg/dLBlood Urea Nitrogen 10.07.0-18.0 mg/dLCreatinine1.180.55-1.02 mg/dLEstimated GFR ( Uvgdsfl54 >=60 mL/min/1.73m 2Estimated GFR (Non- Ame48>=60 mL/min/1.73m 2BUN Creatinine Ratio8.7Tjcfzhc0.18.5-10.1 mg/dLPerforming Lab:see noteML - [facility] LBITP Reviewed date:10/08/2024 01:39:51 PM Interpretation: Performing Lab: Notes/Report: Source Facility: [place] [address] Cardiac Rehab Report Signed Patient: JAVIER LINK MR#: [id number] : 1970 Acct:[id number] Age/Sex: 54 / F ADM Date: 10/07/24 Loc: CR Attending Dr: DEENA SANTA Ordering Physician: Pranav Talavera D.O. Date of Service: 10/07/24 Procedure(s): HARISH Accession Number(s): [id number] cc: [facility] Test Date: 2024-10-07 Pat Name: JAVIER LINK Department: Room: - Gender: Female Safety Coordinator: : 1970 Requested By: PRANAV TALAVERA Order Number: [id number] Deanna MD: PRAANV TALAVERA Interpretive Statements Session Date: Electronically Signed On 10-07-2024 20:30:19 EST by PRANAV TALAVERA Dictated By: Pranav Talavera D.O. Signed By: 10/07/24202910/07/242029 DD/ 22 TD/TT: Informatics Scientist:HARISH Reviewed date:09/09/2024 01:57:52 PM Interpretation: Performing Lab: Notes/Report: Source Facility: [place] [address] [place] [address] Cardiac Rehab Report Signed Patient: JAVIER LINK MR#: [id number] : 1970 Acct:[id number] Age/Sex: 54 / F ADM Date: Loc: CR Attending Dr: DEENA SANTA Ordering Physician: Pranav Talavera D.O. Date of Service: 09/06/24 Procedure(s): ITP Accession Number(s): [id number] cc: [facility] Test Date: 2024-09-06 Pat Name: JAVIER LINK Department: Room: - Gender: Female Safety Coordinator: : 1970 Requested By: PRANAV TALAVERA Order Number: [id number] Reading MD: PRANAV TALAVERA Interpretive Statements Session Date: Electronically Signed On 09-08-2024 8:14:31 EST by PRANAV TALAVERA Dictated By: Pranav Talavera D.O. Signed By: 09/08/2481409/08/24814 DD/ 34 TD/TT: Informatics Scientist: Reason For Referral No Information Medications Medication SIG (Take, Route, Frequency, Duration) Notes Start Date End Date Status busPIRone HCl 10 MG TAKE 2 capsules BY MOUTH TWI CE A DAY; Duration: 30 days ActivepredniSONE 20 MGas directed Orally Once a day; Duration: 11 daystake 3 tablets po for 3 days than 2 tablets po for 3 days than1 tablet po for 3 days than 1/2 tablet po for 2 days5ActiveOzempic (2 MG/DOSE) 8 MG/3MLas directed Subcutaneous once weekly; Duration: 28 days4ActivePantoprazole Sodium 40 MG1 tablet Orally Once a dayActiveCarvedilol 12.5 MG1 tablet Oral BID; Duration: 90 daysActivePotassium Chloride Tori ER 10 MEQ1 tablet with food Oral once daily; Duration: 90 daysActiveClopidogrel Bisulfate 75 MG1 tablet Oral Once a day; Duration: 90 daysActiveSpironolactone 25 MG1 tablet OrallyActive DULoxetine HCl 40 MGTAKE 1 CAPSULE BY MOUTH TWICE A DAY; Duration: 90 daysActive Triamcinolone Acetonide 0.05 %1 application Externally Twice a day01/21/2025 ActiveEntresto 49-51 MG1 tablet Orally Twice a dayActiveVitamin D (Cholecalciferol) 50 MCG (2000 UT)1 capsule Orally Once a dayActiveFurosemide 40 MGTAKE 1 TABLET BY MOUTH EVERY DAY FOR 90 DAYS daily; Duration: 90 daysActive ZyrTEC Allergy 10 MG1 tablet Orally Once a dayActiveAlbuterol Sulfate HFA 108 (90 Base) MCG/ACT2 puff as needed Inhalation every 4 hrs; Duration: ActiveHydrocortisone Acetate 1 %1 application Externally BID; Duration: 14 days 5ActiveArnuity Ellipta 100 MCG/ACT1 puff Inhalation Once a day; Duration: 30 days4ActiveIvabradine HCl 5 MG1 tablet with meals Orally Twice a dayActiveAspirin 81 81 MG1 tablet Orally Once a dayActiveLevothyroxine Sodium 100 MCG1 tablet in the morning on an empty stomach Oral Once a day; Duration: 90 daysActiveAtorvastatin Calcium 80 MG1 tablet Oral Once a day; Duration: 90 daysActiveMupirocin 2 %1 application Externally Twice a day; Duration: 5 5ActivebuPROPion HCl ER (XL) 300 MGTAKE 1 TABLET BY MOUTH DAILY; Duration: 90Active Immunizations Vaccine Route Administration Date Status Comme nts Tdap (Adacel) IM Intramuscular 01/25/2024 Administered Social History Tobacco Use: Social History Observation Description Date Details (start date - stop date) Former Smoker 08/14/1985 - 08/14/2022 Tobacco Use/Smoking Question Answer Notes Patient is a former smoker When did you start smoking?08/14/1985When did you stop smoking?08/14/2022How long has it been since you last smoked?6-12 monthsAlcohol Screen (Audit-C) Question Answer Notes Did you have a drink containing alcohol in the p ast year? No Voburc5UolbpdwqgfpipsCzdtsvjrZLGDD-T (Standard) Question Answer Notes Did you have a drink containing alcohol in the p ast year? No Ianmum5ZvcsfdmnzxekvpGvuphacf Problems Problem Type SNOMED Code ICD Code Onset Dates Problem Status W/U Status Risk Notes Problem Essential hypertension (01009108 ) Essential (primary) hypertension (I10) ActiveconfirmedProblemVitamin D deficiency (72494995)Vitamin D deficiency, unspecified (E55.9)ActiveconfirmedProblemGeneralized anxiety disorder (09158396) Generalized anxiety disorder (F41.1)ActiveconfirmedProblemHypertensive heart failure (37936076)Hypertensive heart disease with heart failure (I11.0)Active confirmedProblemAtherosclerotic heart disease of [place] coronary artery without angina pectoris (469875078813888)Atherosclerotic heart disease of [place] coronary artery without angina pectoris (I25.10)ActiveconfirmedProblemChronic systolic heart failure (955742082)Chronic systolic (congestive) heart failure (I50.22)ActiveconfirmedProblemParietoalveolar pneumopathy (30482954)Interstitial pulmonary disease, unspecified (J84.9)ActiveconfirmedProblemLocalized, primary osteoarthritis of the hand (185602904)Unilateral primary osteoarthritis of first carpometacarpal joint, right hand (M18.11)ActiveconfirmedProblemArticular cartilage disorder of wrist (021002009)Other articular cartilage disorders, left wrist (M24.132)ActiveconfirmedProblemRadial styloid tenosynovitis (20153162) Radial styloid tenosynovitis [[place]] (M65.4)ActiveconfirmedProblem Psoriasis (7925630)Psoriasis (L40.9)ActiveconfirmedProblemOsteoarthritis (022731929)Osteoarthritis (M19.90)ActiveconfirmedProblemAsthma (943037825)Asthma (J45.909)ActiveconfirmedProblemHypothyroidism (85735945)Hypothyroidism (E03.9) ActiveconfirmedProblemArthritis (4453309)Arthritis (M19.90)Activeconfirmed ProblemMenopause (438459791)Hot flashes (N95.1)ActiveconfirmedProblemAcute bronchiolitis (0392746)Acute bronchiolitis (J21.9)ActiveconfirmedProblemMixed anxiety and depressive disorder (297762259)Anxiety and depression (F41.8)Active confirmedProblemHyperlipidemia (02931340)Other hyperlipidemia (E78.49)Active confirmedProblemChronic kidney disease stage 3A (disorder) (789276918)Chronic kidney disease, stage 3a (N18.31)Activeconfirmed Vital Signs Temperature 97.8 degrees Fahrenheit 05/08/2025 Blood pressure mm Hg07/22/20255029Slykfu96 in07/22/2025lood pressure avmifzzh857 mm Hg07/22/20254254Qwllki325 lbs109/22/2024BMI28.21 kg/m207/22/2025 Encounters Encounter Location Date Provider Diagnosis [facility] [address] [place] [address] 01/21/2025 Samia Rosales Chronic kidney disea se, stage 3a N18.31 ; Interstitial pulmonary disease, unspecified J84.9 ; Hypertensive heart disease with heart failure I11.0 ; Psoriasis L40.9 ; Folliculitis L73.9 and Anxiety and depression F41.8 [facility] [address] [place] [address] 07/22/2025 Samia Rosales Anxiety and depressi on F41.8 ; Osteoarthritis M19.90 and Wheezes R06.2 [facility] [address] [place] [address] 05/08/2025 Samia Rosales Cough R05.9 and Bronchitis J40 [facility] [address] [place] [address] 12/02/2024 Samia Rosales [address] [place] [address] 12/23/2024Samia [facility] [place] [address]/06/2025[facility] [address] [place] [address]/04/2025Pasavitaa ConnieWellness examination Z00.00[address] [place] [address]Pacatherine RosalesHypothyroidism E03.9[place] [facility] [place] [id number]/Samia Rosales [facility] [place] [address] 05/29/2025Pamela CollinsmerGeneralized anxiety disorder F41.1[facility] [place] [address]/22/2025Pamela Connie Arthritis M19.90 Assessments Encounter Date Diagnosis (ICD Code) Assessment Notes Treatment Notes Treatment Clinical Notes Section Notes 01/21/2025 Interstitial pulmonary disease, unspecified (ICD-10 - J84.9) has stopped almhwgy5207/22/2025nxiety and depression (ICD-10 - F41.8)increase dose hrqkkyzpg30/25/2025ronchitis (ICD-10 - J40)05/08/2025ough (ICD-10 - R05.9)04/22/2025Wellness examination (ICD-10 - Z00.00)05/01/2025Hypothyroidism (ICD-10 - E03.9)08/04/2025rthritis (ICD-10 - M19.90)05/29/2025Generalized anxiety disorder (ICD-10 - F41.1)01/21/2025hronic kidney disease, stage 3a (ICD-10 - N18.31) continue to monitor, labs in Apr BP controlled 07/22/2025Osteoarthritis (ICD-10 - M19.90) consider rheum panel takes tylenol prn 07/22/2025Wheezes (ICD-10 - R06.2) see if prednisone helps fu if not improving 01/21/2025Hypertensive heart disease with heart failure (ICD-10 - I11.0) sees cardiology upcoming echo 01/21/2025Psoriasis (ICD-10 - L40.9)01/21/2025Folliculitis (ICD-10 - L73.9) 01/21/2025nxiety and depression (ICD-10 - F41.8) continue meds, helping some consider counseling, referral sheet given handout given, healthy lifestyle habits to support good mental health Plan Of Treatment Pending Test Test Name Order Date CMP (COMPLETE METABOLIC PANEL) 3 CMP (COMPLETE METABOLIC PANEL) 4 CMP (COMPLETE METABOLIC PANEL) CMP (COMPLETE METABOLIC PANEL) 4 CMP (COMPLETE METABOLIC PANEL) CMP (COMPLETE METABOLIC PANEL) CMP (COMPLETE METABOLIC PANEL) UA (URINALYSIS, COMPLETE) 06/03/2024 UA (URINALYSIS, COMPLETE) 05/08/2024 UA (URINALYSIS, COMPLETE) 07/01/2024 UA (URINALYSIS, COMPLETE) 07/18/2024 CULTURE, URINE w SENSITIVITY 06/03/2024 CULTURE, URINE w SENSITIVITY 07/18/2024 HEMOGLOBIN A1C (GLYCO) 04/22/2025 HEMOGLOBIN A1C (GLYCO) 04/22/2024 HEMOGLOBIN A1C (GLYCO) 05/03/2024 HEMOGLOBIN A1C (GLYCO) 02/06/2023 INSULIN, TOTAL 05/03/2024 INSULIN, TOTAL 04/22/2024 IRON, TOTAL 02/06/2023 IRON, TOTAL 04/22/2025 LIPID PANEL (CHOL/TRIG/HDL/LDL) 04/22/20 25 LIPID PANEL (CHOL/TRIG/HDL/LDL) 02/07/20 23 LIPID PANEL (CHOL/TRIG/HDL/LDL) 05/08/20 24 LIPID PANEL (CHOL/TRIG/HDL/LDL) 05/03/20 24 LIPID PANEL (CHOL/TRIG/HDL/LDL) 04/22/20 24 CBC WITH DIFF (EXP 06/2025) 04/22/2024 CBC WITH DIFF (EXP 06/2025) 05/08/2024 CBC WITH DIFF (EXP 06/2025) 05/03/2024 CBC WITH DIFF (EXP 06/2025) 02/06/2023 VITAMIN D, 25 LEVEL (TOTAL) 02/06/2023 VITAMIN D, 25 LEVEL (TOTAL) 04/22/2025 Urine Culture 07/01/2024 Urine Culture 05/08/2024 Insulin Level 02/06/2023 Insulin Level 04/22/2025 STOOL OCCULT BLOOD 02/06/2023 [place] DIRECT 08/04/2025 ANTISTREPTOLYSIN O AB (ASO) 08/04/2025 CRP 08/04/2025 FREE T3 05/03/2024 FSH 07/23/2024 PROGESTERONE 07/23/2024 RHEUMATOID FACTOR 08/04/2025 URIC ACID SERUM 08/04/2025 US KIDNEYS BLADDER 07/23/2024 THYROID PANEL (T4/TSH/FREE T3) 3 THYROID PANEL (T4/TSH/FREE T3) 4 THYROID PANEL (T4/TSH/FREE T3) 4 THYROID PANEL (T4/TSH/FREE T3) 4 THYROID PANEL (T4/TSH/FREE T3) 5 THYROID PANEL (T4/TSH/FREE T3) 5 URINALYSIS MICROSCOPIC 07/18/2024 URINALYSIS MICROSCOPIC 06/03/2024 CMP (COMP MET WALLER) w/eGFR CKD-EPI 2024 CBC WITH DIFF 04/22/2025 Next Appt Details Provider Name:Samia martins, 01/20/2026 10:00:00 AM, [address] [place], [address], Insurance Providers Payer Name Payer Address Payer Phone Subscriber Number Group Number Insured Name Patient Relationship to Insured Coverage Start Date Coverage End Date [employer] [address] [place], [place] [id number] Jessica Link - patient is the insured Medical (General) History Medical History History ICD Code Chronic Systolic Heart Failure XpaldwM68.909Former kybeowT99.891Surgical History Surgery Date(Month/Year) Tubal Ligation & Ablasion x2Left Wrist surgeryPartial Left knee replacement & Full Right Defibulator placementAngio with stent placementHospitalization History Reason Date(Month/Year) UTI, Hyponatremia 05/07 Infection 05/2022
[2025-08-05 14:03] LABS: Free T3 1.93 pg/mL (2.18-3.98); Thyroid Stimulating Hormone 1.266 uIU/mL (0.358-3.740); Uric Acid 5.2 mg/dL (2.6-6.0)
[2025-08-06 11:09] LABS: Antinuclear Antibodies, IFA Negative (.)
== END 2025-08-05 11:03 | disposition home or self-care (01) ==
LOC: LAB 11:05
PROVIDERS: PCP Nurse Practitioner Family; Visit Provider Nurse Practitioner Family
DX: E03.9 Hypothyroidism, unspecified (principal); M19.90 Unspecified osteoarthritis, unspecified site
CPT/HCPCS: 36415; 84436; 84443; 84481; 84550; 86038; 86060; 86140; 86431